=== PATIENT | female | born 1950 ===

== ENCOUNTER 2017-06-15 09:34 | Inpatient (IN) | payer MEDICAID, OTHER ==
[2017-06-15] MEDS ORDERED: Vancomycin 1gm in NS 250ml 1 GM/250 ML BAG IVPB STA (10:34)
--- NOTE | 2017-06-15 10:34 | ED PDOC ---
Arrival/HPI - General Historian: Patient - History of Present Illness Time/Duration: < month Context: Home <Rosalba Marroquin P - Last Filed: 06/15/17 13:42> <Devon Campbell P - Last Filed: 06/15/17 15:30> - General Chief Complaint: Trauma Time Seen by Provider: 06/15/17 10:21 - History of Present Illness Narrative History of Present Illness (Text): 06/15/17 10:34 This 67 yo female with pmh arthritis, presents to this ED c/o right ankle redness, and ulcer for 3 weeks. Patient noted intermittent subjective fever x 2 days. Patient stated she has been cleaning wound with peroxide. Patient denies recent travel, sick contact, sob, cp, trauma, dizziness, or syncope. (Rosalba Marroquin) Past Medical History - Provider Review Nursing Documentation Reviewed: Yes - Pulmonary Hx Asthma: Yes - Musculoskeletal/Rheumatological Hx Arthritis: Yes - Psychiatric Hx Substance Use: No - Surgical History Other/Comment: left knee surgery - Anesthesia Hx Anesthesia: Yes Hx Anesthesia Reactions: No <Rosalba Marroquin P - Last Filed: 06/15/17 13:42> Family/Social History - Physician Review Nursing Documentation Reviewed: Yes Family/Social History: Other (noncontributory) Smoking Status: Never Smoked Hx Alcohol Use: No Hx Substance Use: No <Rosalba Marroquin P - Last Filed: 06/15/17 13:42> Allergies/Home Meds <Rosalba Marroquin P - Last Filed: 06/15/17 13:42> <Devon Campbell P - Last Filed: 06/15/17 15:30> Allergies/Adverse Reactions: Allergies Penicillins Allergy (Verified 06/15/17 09:47) ITCHING Home Medications: Home Meds Medication Instructions Recorded Confirmed Unobtainable 06/15/17 06/15/17 Review of Systems - Review of Systems Constitutional: Fatigue, Fevers. absent: Weight Change Eyes: Normal. absent: Vision Changes ENT: Normal. absent: Sore Throat, Rhinorrhea Respiratory: Normal. absent: SOB, Cough Cardiovascular: Other (generalized weakness). absent: Chest Pain, Palpitations , Edema, Calf Pain, Orthopnea, Syncope Gastrointestinal: Normal. absent: Abdominal Pain, Nausea, Vomiting Genitourinary Female: Normal. absent: Dysuria, Frequency, Hematuria Musculoskeletal: Normal Skin: Rash, Skin Lesions, Ulcer, Cellulitis, Other (see hpi) Neurological: Normal. absent: Headache, Dizziness, Focal Weakness, Gait Changes , Speech Changes, Facial Droop, Disequilibrium Endocrine: Normal Hemo/Lymphatic: Normal Psychiatric: Normal <Marroquin,Nah P - Last Filed: 06/15/17 13:42> Physical Exam Temperature: Afebrile Blood Pressure: Normal Pulse: Tachycardic Respiratory Rate: Normal Appearance: Positive for: Well-Appearing, Non-Toxic, Comfortable Pain Distress: None Mental Status: Positive for: Alert and Oriented X 3 - Systems Exam Head: Present: Atraumatic, Normocephalic Pupils: Present: PERRL Extroacular Muscles: Present: EOMI Conjunctiva: Present: Normal Mouth: Present: Moist Mucous Membranes Pharnyx: Present: Normal. No: ERYTHEMA, EXUDATE, TONSILS ENLARGED Nose (External): Present: Atraumatic Nose (Internal): Present: Normal Inspection Neck: Present: Normal Range of Motion Respiratory/Chest: Present: Clear to Auscultation, Good Air Exchange. No: Respiratory Distress, Accessory Muscle Use, Wheezes, Retracting, Rhonchi Cardiovascular: Present: Regular Rate and Rhythm, Normal S1, S2. No: Murmurs Abdomen: Present: Normal Bowel Sounds. No: Tenderness, Distention, Peritoneal Signs Back: Present: Normal Inspection. No: CVA Tenderness, Midline Tenderness Upper Extremity: Present: Normal Inspection, Normal ROM, NORMAL PULSES, Neurovascularly Intact, Capillary Refill < 2s. No: Cyanosis, Edema, Erythema Lower Extremity: Present: NORMAL PULSES, Normal ROM, Swelling, Erythema, Temperature Abnormalties, Neurovascularly Intact, Capillary Refill < 2 s. No: Edema, CALF TENDERNESS Neurological: Present: GCS=15, CN II-XII Intact, Speech Normal, Motor Func Grossly Intact, Normal Sensory Function, Normal Cerebellar Funct, Gait Normal, Memory Normal Skin: Present: Warm, Dry, Normal Color. No: Rashes Psychiatric: Present: Alert, Oriented x 3, Normal Insight, Normal Concentration <Marroquin,[facility] P - Last Filed: 06/15/17 13:42> Vital Signs Temp Pulse Resp BP Pulse Ox 06/15/17 15:11 115 H 14 180/93 H 98 06/15/17 14:55 88 16 180/88 H 06/15/17 13:14 116 H 18 157/97 H 96 06/15/17 12:37 97.6 F 110 H 18 132/79 97 06/15/17 11:24 97.6 F 06/15/17 09:44 98.2 F 123 H 16 134/88 97 Medical Decision Making Re-evaluation Time: 13:45 Reassessment Condition: Re-examined, Improving,but remains with symptoms - Lab Interpretations I have reviewed the lab results: Yes Interpretation: Abnormal lab values <Rosalba Marroquin - Last Filed: 06/15/17 13:42> - Lab Interpretations I have reviewed the lab results: Yes Interpretation: Abnormal lab values <Devon Campbell - Last Filed: 06/15/17 15:30> ED Course and Treatment: 06/15/17 13:[address] Liriano regarding patient history of skin infection x 3 weeks, elevated wbc, elevated lactic, tachycardia. Code sepsis call was done. Patient was medically treated. He agrees with plan for admission. 06/15/17 13:50 Patient is aware of lab test and imaging result. Patient agrees with plan for admission. (Rosalba Marroquin) 06/15/17 15:30 Patient was admitted by hospitalist treated for cellulitis of note there is a possible urinary tract infection the hospitalist was made aware of this and will treat appropriately as a patient has a penicillin allergy (Devon Campbell) - Lab Interpretations Lab Results: 06/15/17 11:00 06/15/17 12:40 Lab Results 06/15/17 12:40: Sodium 136, Chloride 101, Potassium 3.8, Carbon Dioxide 27, Anion Gap 12, BUN 19, Creatinine 0.9, Est GFR ( Amer) > 60, Est GFR (Non- Af Amer) > 60, Random Glucose 120 H, Calcium 8.8, Phosphorus 3.9, Magnesium 1.7 , Total Bilirubin 0.5, AST 25, ALT 14, Alkaline Phosphatase 165 H, Lactate Dehydrogenase 468, Total Creatine Kinase 38, Troponin I < 0.01, NT-Pro-B Natriuret Pep 82.5, Total Protein 8.0, Albumin 3.4, Globulin 4.6, Albumin/ Globulin Ratio 0.7 L 06/15/17 12:05: Triglycerides 64, Cholesterol 159, LDL Cholesterol Direct 93, HDL Cholesterol 53 06/15/17 11:00: pO2 53, VBG pH 7.37, VBG pCO2 44.0, VBG HCO3 25.4, VBG Total CO2 26.8, VBG O2 Sat (Calc) 91.0 H, VBG Base Excess -0.2 L, VBG Potassium 4.5, Sodium 134.0, Chloride 101.0, Glucose 150 H, Lactate 3.0 H, FiO2 21.0, Venous Blood Potassium 4.5 06/15/17 11:00: Urine Color Yellow, Urine Appearance Sl cloudy, Urine pH 6.0, Ur Specific [place] 1.010, Urine Protein Trace H, Urine Glucose (UA) Negative, Urine Ketones Negative, Urine Blood Moderate H, Urine Nitrate Positive H, Urine Bilirubin Negative, Urine Urobilinogen 0.2, Ur Leukocyte Esterase Moderate H, Urine RBC 5 - 10, Urine WBC 15 - 20, Ur Epithelial Cells 3 - 4, Urine Bacteria Many 06/15/17 11:00: PT 13.1 H, INR 1.19 H, APTT 31.3 06/15/17 11:00: WBC 16.3 H, RBC 4.37, Hgb 10.0 L, Hct 31.8 L, MCV 72.8 L, MCH 22.9 L, MCHC 31.4, RDW 17.8 H, Plt Count 651 H, MPV 7.9, Gran % 84.3 H, Lymph % (Auto) 8.0 L, [place] % (Auto) 7.1 H, Eos % (Auto) 0.2 L, Baso % (Auto) 0.4, Gran # 13.73 H, Lymph # 1.3, [place] # 1.2 H, Eos # 0.0, Baso # 0.07, ESR 82 H - RAD Interpretation Narrative RAD Interpretations (Text): 06/15/17 11:36 Patient Name / ID : HIEU CHONG / [id number] Exam Date : 06/15/2017 11:11:14 ( Approved ) Study Comment : Sex / Age : F / 67Y Creator : Nikhil Roe MD Dictator : Nikhil Roe MD Film Printer : Chute Man : Nikhil Roe MD Approver2 : Report Date : 06/15/2017 11:35:06 My Comment : This report is currently processing and HAS NOT BEEN OFFICIALLY SIGNED BY THE PHYSICIAN - ESTIMATED TIME OF APPROVAL IS 06/15/2017 11:40. HISTORY: Sepsis Patient COMPARISON: No prior. FINDINGS: LUNGS: No active pulmonary disease. PLEURA: No significant pleural effusion identified, no pneumothorax apparent. CARDIOVASCULAR: Normal. OSSEOUS STRUCTURES: No significant abnormalities. VISUALIZED UPPER ABDOMEN: Normal. OTHER FINDINGS: None. IMPRESSION: No active disease. 06/15/17 12:43 Patient Name / ID : HIEU CHONG / [id number] Exam Date : 06/15/2017 12:07:04 ( Approved ) Study Comment : Sex / Age : F / 67Y Creator : Nikhil Roe MD Dictator : Nikhil Roe MD Film Printer : Chute Man : Nikhil Roe MD Approver2 : Report Date : 06/15/2017 12:30:53 My Comment : PROCEDURE: CT HEAD WITHOUT CONTRAST. HISTORY: generalized weakness s/p fall COMPARISON: None available. TECHNIQUE: Axial computed tomography images were obtained through the head/brain without intravenous contrast. Radiation dose: Total exam DLP = 759.00 mGy-cm. This CT exam was performed using one or more of the following dose reduction techniques: Automated exposure control, adjustment of the mA and/or kV according to patient size, and/or use of iterative reconstruction technique. FINDINGS: The examination is grossly technically limited. HEMORRHAGE: No intracranial hemorrhage. BRAIN: No intracranial mass identified. Unable to evaluate atrophy. No gross atrophy. Extensive bilateral basal ganglia calcification as well as bilateral dentate nucleus cerebellar calcification. No gross evidence of acute infarct. VENTRICLES: Unremarkable. No hydrocephalus. CALVARIUM: Unremarkable. PARANASAL SINUSES: Unremarkable as visualized. No significant inflammatory changes. MASTOID AIR CELLS: Unremarkable as visualized. No inflammatory changes. OTHER FINDINGS: None. IMPRESSION: No intracranial mass, hemorrhage or evidence of acute infarct. Technically limited examination. (Rosalba Marroquin) Radiology Orders: 06/15/17 10:34 CHEST PORTABLE [RAD] Stat 06/15/17 10:41 HEAD W/O CONTRAST [CT] Stat 06/15/17 12:07 DUPLEX LOWER EXTRM VEIN RIGHT [US] Stat 06/15/17 12:08 ANKLE RIGHT 3 VIEWS ROUTINE [RAD] Stat - Medication Orders Current Medication Orders: Acetaminophen (Tylenol 325mg Tab) 650 mg PO Q4 PRN PRN Reason: Fever >100.4 F Ascorbic Acid (Vitamin C 500 Mg Tab) 500 mg PO DAILY ESCOBAR Heparin Sodium (Porcine) (Heparin) 5,000 units SC Q12 ESCOBAR PRN Reason: Protocol Sodium Chloride (Sodium Chloride 0.9%) 1,000 mls @ 150 mls/hr IV .Q6H40M ESCOBAR Vancomycin HCl (Vancomycin 1gm) 1 gm in 250 mls @ 167 mls/hr IVPB DAILY ESCOBAR PRN Reason: Protocol Ibuprofen (Motrin Tab) 400 mg PO Q6H PRN PRN Reason: Pain, Mild (1-3) Multivitamins/Minerals (Therapeutic-M Tab) 1 tab PO 0800 ESCOBAR Pantoprazole Sodium (Protonix Ec Tab) 40 mg PO 0600,1600 ESCOBAR Zinc Sulfate (Zinc Sulfate 220 Mg Cap) 220 mg PO DAILY ESCOBAR Discontinued Medications Vancomycin HCl (Vancomycin 1gm) 1 gm in 250 mls @ 167 mls/hr IVPB STAT STA PRN Reason: Protocol Stop: 06/15/17 12:03 Last Admin: 06/15/17 11:00 Dose: 167 mls/hr eMAR Start Stop Document 06/15/17 11:00 HI (Rec: 06/15/17 11:19 AK [id number]) Intravenous Solution Start Date 06/15/17 Start Time 11:00 Sodium Chloride (Sodium Chloride 0.9%) 1,000 mls @ 999 mls/hr IV .Q1H1M STA Stop: 06/15/17 11:39 Last Admin: 11/14/17 11:00 Dose: 999 mls/hr eMAR Start Stop Document 06/15/17 11:00 HI (Rec: 06/15/17 11:19 AK [id number]) Intravenous Solution Start Date 06/15/17 Start Time 11:00 Sodium Chloride (Sodium Chloride 0.9%) 1,700 mls @ 1,700 mls/hr IV .Q1H STA Stop: 06/15/17 12:39 Last Admin: 06/15/17 14:00 Dose: 1,700 mls/hr eMAR Start Stop Document 06/15/17 14:00 HI (Rec: 06/15/17 15:02 AK [id number]) Intravenous Solution Start Date 06/15/17 Start Time 12:30 Ketorolac Tromethamine (Toradol) 30 mg IVP STAT STA Stop: 06/15/17 14:37 - PA / [employer]INT BU[employer]DER / Resident Statement MD/DO has reviewed & agrees with the documentation as recorded. <Devon Campbell P - Last Filed: 06/15/17 15:30> Disposition/Present on Arrival - Present on Arrival Any Indicators Present on Arrival: No History of DVT/PE: No History of Uncontrolled Diabetes: No Urinary Catheter: No History of Decub. Ulcer: No History Surgical Site Infection Following: None - Disposition Have Diagnosis and Disposition been Completed?: Yes Disposition Time: 13:47 Patient Plan: Admission <Rosalba Marroquin P - Last Filed: 06/15/17 13:42> - Present on Arrival History of Uncontrolled Diabetes: Yes - Disposition Patient Plan: Admission <Devon Campbell P - Last Filed: 06/15/17 15:30> - Disposition Diagnosis: Sepsis due to cellulitis Disposition: HOSPITALIZED Patient Problems: Current Active Problems Problem Status Onset Sepsis due to cellulitis Acute Condition: STABLE
[2017-06-15] MEDS ORDERED: Sodium Chloride 0.9% 1,000 ML IV STA (10:39)
[2017-06-15 11:20] LABS: VENOUS BLOOD GAS BASE EXCESS -0.2 mmol/L (0.0-2.0); VENOUS BLOOD GAS PO2 53 mm/Hg (30-55); VENOUS BLOOD PH 7.37 (7.32-7.43)
[2017-06-15 11:21] LABS: BASO # 0.07 K/mm3 (0.0-2.0); BASO % 0.4 % (0.0-3.0); EOS % 0.2 % (1.5-5.0); GRAN # 13.73 (1.4-6.5); GRAN % 84.3 % (50.0-68.0); LYMPH # 1.3 (1.2-3.4); MEAN CELL VOLUME 72.8 fl (80.0-105.0); MEAN CORPUSCULAR HEMOGLOBIN 22.9 pg (25.0-35.0); MEAN CORPUSCULAR HGB CONC 31.4 g/dl (31.0-37.0); MEAN PLATELET VOLUME 7.9 fl (7.0-11.0); MONO # 1.2 (0.1-0.6); MONO % 7.1 % (1.0-6.0); RBC 4.37 10^6/uL (3.5-6.1); RED CELL DISTRIBUTION WIDTH 17.8 % (11.5-14.5); WHITE BLOOD COUNT 16.3 10^3/ul (4.5-11.0)
[2017-06-15 11:22] LABS: URINE BILIRUBIN NEGATIVE (NEGATIVE); URINE BLOOD MODERATE (NEGATIVE); URINE GLUCOSE (UA) NEGATIVE (NEGATIVE); URINE LEUKOCYTE ESTERASE MODERATE Leu/uL (NEGATIVE); URINE NITRATE POSITIVE (NEGATIVE); URINE PROTEIN TRACE mg/dL (<30 mg/dL); URINE UROBILINOGEN 0.2 E.U./dL (<1 E.U./dL)
[2017-06-15 11:27] LABS: URINE APPEARANCE SL CLOUDY (CLEAR); URINE COLOR YELLOW (YELLOW)
[2017-06-15 11:33] LABS: INR 1.19 (0.93-1.08); PARTIAL THROMBOPLASTIN TIME 31.3 Seconds (25.1-36.5); PROTHROMBIN TIME 13.1 SECONDS (9.4-12.5)
[2017-06-15 11:36] LABS: URINE BACTERIA MANY (NEG); URINE WBC 15 - 20 /hpf (0-6)
--- NOTE | 2017-06-15 11:36 | RAD ---
HISTORY: Sepsis Patient COMPARISON: No prior. FINDINGS: LUNGS: No active pulmonary disease. PLEURA: No significant pleural effusion identified, no pneumothorax apparent. CARDIOVASCULAR: Normal. OSSEOUS STRUCTURES: No significant abnormalities. VISUALIZED UPPER ABDOMEN: Normal. OTHER FINDINGS: None. IMPRESSION: No active disease.
--- NOTE | 2017-06-15 12:32 | CT ---
PROCEDURE: CT HEAD WITHOUT CONTRAST. HISTORY: generalized weakness s/p fall COMPARISON: None available. TECHNIQUE: Axial computed tomography images were obtained through the head/brain without intravenous contrast. Radiation dose: Total exam DLP = 759.00 mGy-cm. This CT exam was performed using one or more of the following dose reduction techniques: Automated exposure control, adjustment of the mA and/or kV according to patient size, and/or use of iterative reconstruction technique. FINDINGS: The examination is grossly technically limited. HEMORRHAGE: No intracranial hemorrhage. BRAIN: No intracranial mass identified. Unable to evaluate atrophy. No gross atrophy. Extensive bilateral basal ganglia calcification as well as bilateral dentate nucleus cerebellar calcification. No gross evidence of acute infarct. VENTRICLES: Unremarkable. No hydrocephalus. CALVARIUM: Unremarkable. PARANASAL SINUSES: Unremarkable as visualized. No significant inflammatory changes. MASTOID AIR CELLS: Unremarkable as visualized. No inflammatory changes. OTHER FINDINGS: None. IMPRESSION: No intracranial mass, hemorrhage or evidence of acute infarct. Technically limited examination.
--- NOTE | 2017-06-15 13:13 | RAD ---
PROCEDURE: Right Ankle Radiographs. HISTORY: pain COMPARISON: None FINDINGS: BONES: Normal. No fracture. JOINTS: Degenerative changes are seen in the midfoot. There is also joint space narrowing in the ankle joint SOFT TISSUES: Normal. OTHER FINDINGS: None. IMPRESSION: Degenerative changes are seen in the midfoot. There is also joint space narrowing in the ankle joint. No acute findings
[2017-06-15 13:19] LABS: ALB/GLOB RATIO 0.7 (1.1-1.8); AST/SGOT 25 U/L (14-36); B-TYPE NATRIURETIC PEPTIDE 82.5 pg/mL (0-450); BLOOD UREA NITROGEN 19 mg/dL (7-21); GFR AFRICAN-AMERICAN > 60; GFR NON-AFRICAN AMERICAN > 60; MAGNESIUM 1.7 mg/dL (1.7-2.2)
[2017-06-15 13:30] LABS: ALBUMIN 3.4 g/dL (3.0-4.8); ALT/SGPT 14 U/L (7-56); CALCIUM 8.8 mg/dL (8.4-10.5)
[2017-06-15 13:40] LABS: TROPONIN I < 0.01 ng/mL
[2017-06-15] MEDS ORDERED: Sodium Chloride 0.9% 1,000 ML IV SCH (14:30)
--- NOTE | 2017-06-15 14:40 | CP.PCM.HP ---
<Devon Campbell - Last Filed: 06/15/17 15:29> Meds Allergies/Adverse Reactions: Allergies Allergy/AdvReac Type Severity Reaction Status Date / Time Penicillins Allergy ITCHING Verified 06/15/17 09:47 Results - Vital Signs Recent Vital Signs: Last Vital Signs Temp 97.6 F 06/15/17 12:37 Pulse 115 H 06/15/17 15:11 Resp 14 06/15/17 15:11 BP 180/93 H 06/15/17 15:11 Pulse Ox 98 06/15/17 15:11 - Labs Result Diagrams: 06/15/17 11:00 06/15/17 12:40 Labs: Laboratory Results - last 24 hr 06/15/17 14:48 pO2 74 H VBG pH 7.40 VBG pCO2 40.0 VBG HCO3 24.8 VBG Total CO2 26.0 VBG O2 Sat (Calc) 96.6 H VBG Base Excess 0.0 VBG Potassium 3.9 Sodium 137.0 Chloride 105.0 Glucose 106 H Lactate 1.4 FiO2 21.0 Venous Blood Potassium 3.9 <Sergo Ibarra - Last Filed: 06/15/17 15:36> History of Present Illness - History of Present Illness History of Present Illness: Ms. Chou is a 67yo F PMH asthma, arthritis, vitamin C deficiency, and possible thyroid disease who presents with 3 weeks of RLE ulceration, swelling and leaking from the wound as well as multiple falls in the past 3 weeks. important to note that pt is a poor historian. she does not have a PMD, does not see a doctor, and does not take medications at home. she denies chest pain, sob, cough, fevers/chills, dysuria, constipation, n/v/d, back pain. 12-pt ROS was reviewed and is otherwise unremarkable. In ED, CT Head was unremarkable, CXR was unremarkable, R ankle XR showed degenerative and arthritic changes. UA had +nirates and mod LE. Vancomycin and 2.7 L boluses were given. 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); denies tobacco, ETOH and substance use; does not go out often from home, but uses a cane/walker at home for assistance FHx: mom (DM2), dad (heart disease) Present on Admission - Present on Admission Any Indicators Present on Admission: No History of DVT/PE: No History of Uncontrolled Diabetes: No Urinary Catheter: No Decubitus Ulcer Present: No Review of Systems - Review of Systems All systems: reviewed and no additional remarkable complaints except (as per HPI ) Past Patient History - Past Social History Smoking Status: Never Smoked Alcohol: None Drugs: Denies Home Situation {Lives}: Friends - CARDIAC Hx Cardiac Disorders: No - PULMONARY Hx Asthma: Yes - NEUROLOGICAL Hx Neurological Disorder: No - HEENT Hx HEENT Problems: No - RENAL Hx Chronic Kidney Disease: No - ENDOCRINE/METABOLIC Other/Comment: thyroid disease - HEMATOLOGICAL/ONCOLOGICAL Other/Comment: vitamin c deficiency - INTEGUMENTARY Hx Dermatological Problems: No - MUSCULOSKELETAL/RHEUMATOLOGICAL Hx Arthritis: Yes Hx Falls: Yes - GASTROINTESTINAL Hx Gastrointestinal Disorders: No - GENITOURINARY/GYNECOLOGICAL Hx Genitourinary Disorders: No - PSYCHIATRIC Hx Psychophysiologic Disorder: No Hx Substance Use: No - SURGICAL HISTORY Hx Orthopedic Surgery: Yes (L knee) Other/Comment: left knee surgery - ANESTHESIA Hx Anesthesia: Yes Hx Anesthesia Reactions: No Physical Exam - Constitutional Appears: Well, Non-toxic, No Acute Distress - Head Exam Head Exam: ATRAUMATIC, NORMAL INSPECTION, NORMOCEPHALIC Additional comments: diffuse hair loss - Eye Exam Eye Exam: EOMI, Normal appearance, PERRL Pupil Exam: NORMAL ACCOMODATION - ENT Exam ENT Exam: Mucous Membranes Moist, Normal Exam Additional comments: dentures - Neck Exam Neck exam: Positive for: Normal Inspection - Respiratory Exam Respiratory Exam: Clear to Auscultation Bilateral, NORMAL BREATHING PATTERN. absent: Rales, Wheezes - Cardiovascular Exam Cardiovascular Exam: RRR, +S1, +S2. absent: Gallop, JVD, Rubs, Systolic Murmur - GI/Abdominal Exam GI & Abdominal Exam: Distended, Normal Bowel Sounds, Soft. absent: Firm, Guarding, Rigid, Tenderness - Extremities Exam Extremities exam: Positive for: pedal edema, pedal pulses present (1+ b/l ) Additional comments: RLE swollen R ankle with ulcer that looks fungal b/l chronic venous changes - Back Exam Back exam: NORMAL INSPECTION. absent: CVA tenderness (L), CVA tenderness (R) - Neurological Exam Neurological exam: Alert, CN II-XII Intact, Oriented x3 - Psychiatric Exam Psychiatric exam: Normal Affect, Normal Mood - Skin Skin Exam: Erythema, Mottled Additional comments: diffuse chronic venous changes RLE ulcer acanthosis nigricans changes Results - Vital Signs Recent Vital Signs: Last Vital Signs Temp 97.6 F 06/15/17 12:37 Pulse 116 H 06/15/17 13:14 Resp 18 06/15/17 13:14 BP 157/97 H 06/15/17 13:14 Pulse Ox 96 06/15/17 13:14 - Labs Result Diagrams: 06/15/17 11:00 06/15/17 12:40 Assessment & Plan - Assessment and Plan (Free Text) Assessment: 67yo F PMH asthma, arthritis, vitamin C deficiency, and possible thyroid disease who presents with RLE ulcer/cellulitis and chronic venous changes b/l, found to be septic in ED, post sepsis code. Plan: 1. RLE cellulitis/ulcer - s/p CODE SEPSIS, vancomycin and IVF - will f/u labs for code sepsis - lactate decreased from 3 to 1.4 - pt remains afebrile, tachycardic and with leukocytosis - cont Vancomycin and fluids - toradol stat for pain - motrin prn for pain - tylenol prn fevers - MV/Vitamin C and Zinco to promote wound healing - wound culture ordered - blood and urine cultures sent, f/u results - ID consulted, recs appreciated - podiatry consulted, recs appreciated - a1c to check diabetic status - lipid panel ordered 2. asthma - currently no wheezing - duoneb prn - monitor oxygenation 3. arthritis - motrin prn pain 4. thyroid - thyroid panel sent 5. vitamin C deficiency - MV and Vitamin C ordered PTX/Heparin HHD Patient was seen, examined and discussed with attending, Dr. Israel Ibarra PGY1 - Date & Time Date: 06/15/17 Time: 13:36
[2017-06-15 15:01] LABS: HDL CHOLESTEROL 53 mg/dL (29-60)
[2017-06-15 15:04] LABS: VENOUS BLOOD GAS PO2 74 mm/Hg (30-55)
[2017-06-15 15:12] LABS: LDL CHOLESTEROL 93 mg/dL (0-129)
--- NOTE | 2017-06-15 15:39 | CP.PCM.HP ---
<Sergo Ibarra - Last Filed: 06/15/17 15:37> History of Present Illness - History of Present Illness History of Present Illness: Ms. Chou is a 67yo F PMH asthma, arthritis, vitamin C deficiency, and possible thyroid disease who presents with 3 weeks of RLE ulceration, swelling and leaking from the wound as well as multiple falls in the past 3 weeks. important to note that pt is a poor historian. she does not have a PMD, does not see a doctor, and does not take medications at home. she denies chest pain, sob, cough, fevers/chills, dysuria, constipation, n/v/d, back pain. 12-pt ROS was reviewed and is otherwise unremarkable. In ED, CT Head was unremarkable, CXR was unremarkable, R ankle XR showed degenerative and arthritic changes. UA had +nirates and mod LE. Vancomycin and 2.7 L boluses were given. 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); denies tobacco, ETOH and substance use; does not go out often from home, but uses a cane/walker at home for assistance FHx: mom (DM2), dad (heart disease) Present on Admission - Present on Admission Any Indicators Present on Admission: No History of DVT/PE: No History of Uncontrolled Diabetes: No Urinary Catheter: No Decubitus Ulcer Present: No Review of Systems - Review of Systems All systems: reviewed and no additional remarkable complaints except (as per HPI ) Past Patient History - Past Social History Smoking Status: Never Smoked Alcohol: None Drugs: Denies Home Situation {Lives}: Friends - CARDIAC Hx Cardiac Disorders: No - PULMONARY Hx Asthma: Yes - NEUROLOGICAL Hx Neurological Disorder: No - HEENT Hx HEENT Problems: No - RENAL Hx Chronic Kidney Disease: No - ENDOCRINE/METABOLIC Other/Comment: thyroid disease - HEMATOLOGICAL/ONCOLOGICAL Other/Comment: vitamin c deficiency - INTEGUMENTARY Hx Dermatological Problems: No - MUSCULOSKELETAL/RHEUMATOLOGICAL Hx Arthritis: Yes Hx Falls: Yes - GASTROINTESTINAL Hx Gastrointestinal Disorders: No - GENITOURINARY/GYNECOLOGICAL Hx Genitourinary Disorders: No - PSYCHIATRIC Hx Psychophysiologic Disorder: No Hx Substance Use: No - SURGICAL HISTORY Hx Orthopedic Surgery: Yes (L knee) Other/Comment: left knee surgery - ANESTHESIA Hx Anesthesia: Yes Hx Anesthesia Reactions: No Meds Allergies/Adverse Reactions: Allergies Allergy/AdvReac Type Severity Reaction Status Date / Time Penicillins Allergy ITCHING Verified 06/15/17 09:47 Physical Exam - Additional Findings Additional findings: - Constitutional Appears: Well, Non-toxic, No Acute Distress - Head Exam Head Exam: ATRAUMATIC, NORMAL INSPECTION, NORMOCEPHALIC Additional comments: diffuse hair loss - Eye Exam Eye Exam: EOMI, Normal appearance, PERRL Pupil Exam: NORMAL ACCOMODATION - ENT Exam ENT Exam: Mucous Membranes Moist, Normal Exam Additional comments: dentures - Neck Exam Neck exam: Positive for: Normal Inspection - Respiratory Exam Respiratory Exam: Clear to Auscultation Bilateral, NORMAL BREATHING PATTERN. absent: Rales, Wheezes - Cardiovascular Exam Cardiovascular Exam: RRR, +S1, +S2. absent: Gallop, JVD, Rubs, Systolic Murmur - GI/Abdominal Exam GI & Abdominal Exam: Distended, Normal Bowel Sounds, Soft. absent: Firm, Guarding, Rigid, Tenderness - Extremities Exam Extremities exam: Positive for: pedal edema, pedal pulses present (1+ b/l ) Additional comments: RLE swollen R ankle with ulcer that looks fungal b/l chronic venous changes - Back Exam Back exam: NORMAL INSPECTION. absent: CVA tenderness (L), CVA tenderness (R) - Neurological Exam Neurological exam: Alert, CN II-XII Intact, Oriented x3 - Psychiatric Exam Psychiatric exam: Normal Affect, Normal Mood - Skin Skin Exam: Erythema, Mottled Additional comments: diffuse chronic venous changes RLE ulcer acanthosis nigricans changes Results - Vital Signs Recent Vital Signs: Last Vital Signs Temp 97.6 F 06/15/17 12:37 Pulse 115 H 06/15/17 15:11 Resp 14 06/15/17 15:11 BP 180/93 H 06/15/17 15:11 Pulse Ox 98 06/15/17 15:11 - Labs Result Diagrams: 06/15/17 11:00 06/15/17 12:40 Labs: Laboratory Results - last 24 hr 06/15/17 14:48 pO2 74 H VBG pH 7.40 VBG pCO2 40.0 VBG HCO3 24.8 VBG Total CO2 26.0 VBG O2 Sat (Calc) 96.6 H VBG Base Excess 0.0 VBG Potassium 3.9 Sodium 137.0 Chloride 105.0 Glucose 106 H Lactate 1.4 FiO2 21.0 Venous Blood Potassium 3.9 Assessment & Plan - Assessment and Plan (Free Text) Assessment: 67yo F PMH asthma, arthritis, vitamin C deficiency, and possible thyroid disease who presents with RLE ulcer/cellulitis and chronic venous changes b/l, found to be septic in ED, post sepsis code. Plan: 1. RLE cellulitis/ulcer - s/p CODE SEPSIS, vancomycin and IVF - will f/u labs for code sepsis - lactate decreased from 3 to 1.4 - pt remains afebrile, tachycardic and with leukocytosis - cont Vancomycin and fluids - toradol stat for pain - motrin prn for pain - tylenol prn fevers - MV/Vitamin C and Zinco to promote wound healing - wound culture ordered - blood and urine cultures sent, f/u results - ID consulted, recs appreciated - podiatry consulted, recs appreciated - a1c to check diabetic status - lipid panel ordered 2. asthma - currently no wheezing - duoneb prn - monitor oxygenation 3. arthritis - motrin prn pain 4. thyroid - thyroid panel sent 5. vitamin C deficiency - MV and Vitamin C ordered PTX/Heparin HHD Patient was seen, examined and discussed with attending, Dr. Israel Ibarra PGY1 - Date & Time Date: 06/15/17 Time: 13:38 <Roger Wood - Last Filed: 06/16/17 12:32> Results - Vital Signs Recent Vital Signs: Last Vital Signs Temp 97.9 F 06/16/17 12:00 Pulse 103 H 06/16/17 12:22 Resp 20 06/16/17 12:00 BP 88/53 L 06/16/17 12:00 Pulse Ox 97 06/16/17 06:00 - Labs Result Diagrams: 06/16/17 05:30 06/16/17 05:30 Labs: Laboratory Results - last 24 hr 06/15/17 06/16/17 06/16/17 14:48 05:30 05:30 WBC 11.3 H D RBC 3.71 Hgb 8.3 L Hct 27.0 L MCV 72.8 L MCH 22.4 L MCHC 30.7 L RDW 18.0 H Plt Count 527 H MPV 7.8 pO2 74 H VBG pH 7.40 VBG pCO2 40.0 VBG HCO3 24.8 VBG Total CO2 26.0 VBG O2 Sat (Calc) 96.6 H VBG Base Excess 0.0 VBG Potassium 3.9 Sodium 137.0 138 Chloride 105.0 107 Glucose 106 H Lactate 1.4 FiO2 21.0 Potassium 3.8 Carbon Dioxide 24 Anion Gap 11 BUN 16 Creatinine 1.0 Est GFR ( Amer) > 60 Est GFR (Non-Af Amer) 55 Random Glucose 89 Calcium 8.1 L Iron TIBC % Saturation Total Bilirubin 0.4 AST 35 ALT 25 Alkaline Phosphatase 125 Total Protein 7.1 Albumin 2.9 L Globulin 4.2 Albumin/Globulin Ratio 0.7 L Venous Blood Potassium 3.9 06/16/17 11:20 WBC RBC Hgb Hct MCV MCH MCHC RDW Plt Count MPV pO2 VBG pH VBG pCO2 VBG HCO3 VBG Total CO2 VBG O2 Sat (Calc) VBG Base Excess VBG Potassium Sodium Chloride Glucose Lactate FiO2 Potassium Carbon Dioxide Anion Gap BUN Creatinine Est GFR ( Amer) Est GFR (Non-Af Amer) Random Glucose Calcium Iron 16 L TIBC 210.1 L % Saturation 7 L Total Bilirubin AST ALT Alkaline Phosphatase Total Protein Albumin Globulin Albumin/Globulin Ratio Venous Blood Potassium Attending/Attestation - Attestation I have personally seen and examined this patient.: Yes I have fully participated in the care of the patient.: Yes I have reviewed all pertinent clinical information: Yes Notes (Text): 06/16/17 12:29 Attending note; Patient seen and examined with resident in ER. Patient is a 67 year old female with past medical history of asthma, arthritis, vitamin C deficiency,obesity presents with 3 months of RLE ulceration, swelling and leaking from the wound as well as multiple falls in the past 3 weeks. patient is a poor historian. Never followed up with any physician. Patient is also complaining of gait instability for the past few months. Admitted for right lower leg cellulitis; started on IV vancomycin and levofloxacin. Penicillin allergy; ID evaluation requested. Continue local wound care. Podiatry evaluation requested. X-ray showed chronic arthritis. Gait instability; PT evaluation. barnworker groom and case assembler evaluation requested for discharge planning. Patient currently lives with a friend. Upon discharge the patient will be referred to [facility] [place] [facility].
[2017-06-15 15:59] LABS: FREE T4 1.63 ng/dL (0.78-2.19)
[2017-06-15] MEDS ORDERED: levoFLOXacin 500 mg in D5W 500 MG/100 ML BAG IVPB SCH ×2 (16:00→17:31)
--- NOTE | 2017-06-15 16:50 | PCM.SEPTIC ---
<Stacey,Mark - Last Filed: 06/15/17 16:49> Sepsis Progress Note - Reassessment Type Date of Evaluation: 06/15/17 Time of Evaluation: 16:49 Reassessment Type: Non-invasive reassessment - Non Invasive Reassessment Were the most recent vital sign reviewed: Yes Vital Sign (Latest): Temp Pulse Resp BP Pulse Ox 97.6 F 115 H 14 180/93 H 98 06/15/17 12:37 06/15/17 15:11 06/15/17 15:11 06/15/17 15:11 06/15/17 15:11 Cardiovascular: Yes: Regular Rate, Rhythm, Tachycardia. No: JVD Respiratory: Yes: Normal Breath Sounds. No: Decreased Breath Sounds, Accessory Muscle Use, Crackles, Rales, Rhonchi, Wheezing, Respiratory Distress Capillary Refill: Normal (Less than 2 sec) Skin: Other (RLE with chronic venous changes) <Roger Wood - Last Filed: 06/16/17 12:32> Sepsis Progress Note - Non Invasive Reassessment Vital Sign (Latest): Temp Pulse Resp BP Pulse Ox 97.9 F 103 H 20 88/53 L 97 06/16/17 12:00 06/16/17 12:22 06/16/17 12:00 06/16/17 12:00 06/16/17 06:00 Attending/Attestation - Attestation I have personally seen and examined this patient.: Yes I have fully participated in the care of the patient.: Yes I have reviewed all pertinent clinical information, including history, physical exam and plan: Yes Notes (Text): 06/16/17 12:32 code sepsis note; Repeat lactate level is normal. Patient is not hypotensive. IV fluids decreased. Patient is clinically stable. Started on IV vancomycin and levofloxacin.
--- NOTE | 2017-06-15 17:19 | US ---
PROCEDURE: Right lower extremity venous US HISTORY: Leg pain and swelling. Evaluate for DVT. PHYSICIAN(S): Nikhil Sanchez M.D. TECHNIQUE: Duplex sonography and color-flow Doppler with graded compression were used to evaluate the deep venous system of the right lower extremity. The exam is very limited by body habitus and edema. The lower femoral vein and tibial veins are not adequately seen. FINDINGS: The visualized deep venous system of the right lower extremity is sonographically normal and compressible. Normal waveforms and augmentation are seen. There is no sonographic evidence for deep venous thrombosis in the visualized segments of the right lower extremity. IMPRESSION: 1. No sonographic evidence for deep venous thrombosis in the visualized segments of the right lower extremity. 2. Very limited study
[2017-06-15] MEDS ORDERED: levoFLOXacin 500 mg in D5W 500 MG/100 ML BAG IVPB STA (17:32)
[2017-06-15] MEDS: Sodium Chloride 0.9% 1,000 ML IV SCH (18:00)
[2017-06-15] MEDS: Pantoprazole 40 mg EC Tab PO SCH (18:02)
[2017-06-15] MEDS: Vancomycin 1gm in NS 250ml 1 GM/250 ML BAG IVPB SCH (19:15)
--- NOTE | 2017-06-15 22:12 | CARD ---
APPROVED REPORT EKG Measurement Heart [id number] <Conclusion> Sinus tachycardia Moderate voltage criteria for LVH, may be normal variant Borderline ECG
--- NOTE | 2017-06-16 02:50 | CON ---
DATE: 06/15/2017 HISTORY OF PRESENT ILLNESS: This is a 67-year-old female seen in the emergency room on consultation for a right leg cellulitis. The patient is seen on the stretcher. She is alert and oriented. She states that she has had this weeping and draining from her right leg for several weeks. She has been cleaning it with peroxide, but it has become more red and swollen. She states she does walk at home with the use of a walker, but it is becoming more difficulty lately because of the swelling in her legs. PAST MEDICAL HISTORY: The patient has no past medical history. She has not gone to a doctor in many years. She does not have a PMD. She does not take any medications at home. PAST SURGICAL HISTORY: Positive for left knee surgery. She does not remember exactly when it was done or what exactly was done to her. ALLERGIES: POSITIVE FOR PENICILLIN. SOCIAL HISTORY: She lives at home with her friend. The patient denies tobacco, alcohol or any substance abuse. The patient states that she does walk with the walker at home as noted above, but states she has been falling lately because of the swelling in her legs. REVIEW OF SYSTEMS: Negative for cardiac. Negative for neurological. Positive for history of asthma. Negative for HEENT. Negative for endocrine. She states that she might have a possible thyroid condition, but she is not sure. Negative for GI. Negative for . Positive for musculoskeletal. Positive for difficulty walking. Skin, there is now with ulceration and cellulitis to her legs. The patient's psych is negative. PHYSICAL EXAMINATION: VITAL SIGNS: Noted. She has a temperature of 97.6, pulse rate was 115, blood pressure is 180/93, respirations were 14. LABORATORY DATA: Shows a white blood cell count of 16.3, H and H is 10.0/31.8, and platelets are 651. The patient also has a granulocyte of 84.3 with lymphocyte of 8.0 with a shift to the left. ASR is remarkable at 82. The patient's chemistry shows a glucose of 120, the alk phos also was elevated at 165. The rest of the chemistry was grossly within normal limits. The patient did have INR of 1.19, PT is 13.1. She did have x-rays done of her ankle, and she had extremity ultrasound done, but pending at this time. Her ankle x-rays were negative for any dislocation, fractures, or any osteomyelitis; however, the patient does have lot of degenerative disease noted in both the foot and the ankle area. The patient also had a chest x-ray and chest x-ray was no active disease. Physically, the patient is noted to be morbidly obese female with bounding 2/4 palpable pedal pulses. She has decreased sensation to the digits and her feet bilaterally. Her skin is with lichenification on the right greater than the left, but there is stasis skin changes bilateral. She has a +4 edema to the right lower extremity and +3 on the left. There is an ankle ulceration measuring approximately 8 cm x 6 cm with depth of which is unknown at this time. There is fluff on the wound edge. There is active weeping coming from the wound and there is pain on palpation of the leg. The leg is cellulitic from the ankle to approximately just below the knee. The left leg does not have any open wounds or oozing and is not cellulitic; however, there are secondary skin changes from the chronic edema. The patient's feet are unkempt and there is elongated dystrophic fungal nails x10. ASSESSMENT: Unchangeable ulcer to the right leg with cellulitis and infection, rule out deep venous thrombosis. PLAN OF TREATMENT: IV antibiotics, cultures were done and are pending at this time. With local wound care, we will be using DuoDERM overnight to help macerate and remove some of the slough on that wound bed. We will order heel pads to keep the feet off the bed and the patient will be seen in followup. Buffy Cano DPM JERRELL
[2017-06-16] MEDS: Vancomycin 1gm in NS 250ml 1 GM/250 ML BAG IVPB SCH ×2 (04:02→17:33)
[2017-06-16 06:02] LABS: HEMOGLOBIN 8.3 g/dL (12.0-16.0); MEAN CELL VOLUME 72.8 fl (80.0-105.0); MEAN CORPUSCULAR HEMOGLOBIN 22.4 pg (25.0-35.0); MEAN CORPUSCULAR HGB CONC 30.7 g/dl (31.0-37.0); MEAN PLATELET VOLUME 7.8 fl (7.0-11.0); RBC 3.71 10^6/uL (3.5-6.1); WHITE BLOOD COUNT 11.3 10^3/ul (4.5-11.0)
[2017-06-16] MEDS: Pantoprazole 40 mg EC Tab PO SCH ×2 (06:11→17:32)
[2017-06-16] MEDS: Sodium Chloride 0.9% 1,000 ML IV SCH ×3 (07:02→18:37)
[2017-06-16 07:35] LABS: ALB/GLOB RATIO 0.7 (1.1-1.8); ALBUMIN 2.9 g/dL (3.0-4.8); ALT/SGPT 25 U/L (7-56); AST/SGOT 35 U/L (14-36); BLOOD UREA NITROGEN 16 mg/dL (7-21); CALCIUM 8.1 mg/dL (8.4-10.5); GFR AFRICAN-AMERICAN > 60; GFR NON-AFRICAN AMERICAN 55
[2017-06-16] MEDS ORDERED: Vancomycin 1gm in NS 250ml 1 GM/250 ML BAG IVPB SCH (10:00)
--- NOTE | 2017-06-16 11:06 | CP.PCM.PN ---
<Sergo Ibarra - Last Filed: 06/16/17 11:11> Subjective - Date & Time of Evaluation Date of Evaluation: 06/16/17 Time of Evaluation: 09:00 - Subjective Subjective: patient was seen and examined bedside. she was complaining of a headache last night, that was relieved with meds. she uses a bedpan for urination and is not able to bear weight on her legs. During rounds, Chris (the friend she lives at home) was seen and states that he helps her at home since she has no one to help and does not have insurance. He does grocery shopping and feeds her, and tries to clean her but usually cannot do so alone. Says that she has not ambulated in three months. Objective - Vital Signs/Intake and Output Vital Signs (last 24 hours): Temp Pulse Resp BP Pulse Ox 98.3 F 100 H 19 128/68 97 06/16/17 06:00 06/16/17 06:00 06/16/17 06:00 06/16/17 06:00 06/16/17 06:00 Intake and Output: 06/16/17 06/16/17 06:59 18:59 Intake Total 200 Output Total 0 Balance 200 - Medications Medications: Current Medications Acetaminophen (Tylenol 325mg Tab) 650 mg PO Q4 PRN PRN Reason: Fever >100.4 F Last Admin: 06/15/17 23:29 Dose: 650 mg Ascorbic Acid (Vitamin C 500 Mg Tab) 500 mg PO DAILY ESCOBAR Last Admin: 06/15/17 18:54 Dose: 500 mg Heparin Sodium (Porcine) (Heparin) 5,000 units SC Q12 [facility] PRN Reason: Protocol Last Admin: 06/15/17 23:29 Dose: 5,000 units Sodium Chloride (Sodium Chloride 0.9%) 1,000 mls @ 75 mls/hr IV .[id number] [facility]OBAR Last Admin: 06/16/17 07:02 Dose: 75 mls/hr Vancomycin HCl (Vancomycin 1gm) 1 gm in 250 mls @ 167 mls/hr IVPB Q12H [facility] PRN Reason: Protocol Last Admin: 06/16/17 04:02 Dose: 167 mls/hr Levofloxacin/Dextrose (Levaquin 500mg) 500 mg in 100 mls @ 100 mls/hr IVPB DAILY [facility] Ibuprofen (Motrin Tab) 400 mg PO Q6H PRN PRN Reason: Pain, Mild (1-3) Last Admin: 06/16/17 01:20 Dose: 400 mg Metoprolol Tartrate (Lopressor) 25 mg PO BID [facility] Last Admin: 06/15/17 18:56 Dose: 25 mg Multivitamins/Minerals (Therapeutic-M Tab) 1 tab PO 0800 [facility] Pantoprazole Sodium (Protonix Ec Tab) 40 mg PO 0600,1600 [facility] Last Admin: 06/16/17 06:11 Dose: 40 mg Zinc Sulfate (Zinc Sulfate 220 Mg Cap) 220 mg PO DAILY [facility] Last Admin: 06/15/17 18:54 Dose: 220 mg - Labs Labs: 06/16/17 05:30 06/16/17 05:30 PT 13.1 SECONDS (9.4-12.5) H 06/15/17 11:00 INR 1.19 (0.93-1.08) H 06/15/17 11:00 APTT 31.3 Seconds (25.1-36.5) 06/15/17 11:00 - Constitutional Appears: Well, Non-toxic, No Acute Distress, Unkempt - Head Exam Head Exam: ATRAUMATIC, NORMAL INSPECTION, NORMOCEPHALIC Additional comments: diffuse hair loss - Eye Exam Eye Exam: EOMI, Normal appearance, PERRL Pupil Exam: NORMAL ACCOMODATION - ENT Exam ENT Exam: Mucous Membranes Moist, Normal Exam - Neck Exam Neck Exam: Full ROM, Normal Inspection - Respiratory Exam Respiratory Exam: Clear to Ausculation Bilateral, NORMAL BREATHING PATTERN. absent: Rales, Rhonchi, Wheezes - Cardiovascular Exam Cardiovascular Exam: RRR, +S1, +S2. absent: Gallop, JVD, Rubs, Murmur - GI/Abdominal Exam GI & Abdominal Exam: Distended, Soft, Normal Bowel Sounds. absent: Firm, Rigid , Tenderness Additional comments: obese body habitus - Extremities Exam Extremities Exam: Pedal Edema (RLE>LLE) Additional comments: RLE medial malleolus ulcer (dressing applied) - Back Exam Back Exam: NORMAL INSPECTION - Neurological Exam Neurological Exam: Alert, Awake, Oriented x3 - Psychiatric Exam Psychiatric exam: Normal Affect, Normal Mood - Skin Skin Exam: Normal Color, Warm Additional comments: chronic venous stasis changes poor hygiene noted Assessment and Plan - Assessment and Plan (Free Text) Assessment: 67yo F PMH asthma, arthritis, vitamin C deficiency, and possible thyroid disease who presents with RLE ulcer/cellulitis and chronic venous changes b/l, found to be septic in ED, post code sepsis. Plan: 1. RLE cellulitis/ulcer s/p CODE SEPSIS - Ankle XR showed degenerative and arthritic changes - cont vancomycin and Levaquin d2 - lactate decreased from 3 to 1.4 - hemoglobin a1c 6.4, no intervention needed - lipid panel showed no lipid abnormalities - CRP and ESR elevated - pt remains afebrile, tachycardic and with leukocytosis - motrin prn for pain - tylenol prn fevers - MV/Vitamin C and Zinco to promote wound healing - wound culture growing G+ cocci and G- rebecca - ID consulted, recs appreciated - podiatry consulted, rec duoderm dressing and heel pads for pt 2. Leukocytosis, improving - cont IV antibiotics - urine culture growing G- rebecca - blood culture showing no growth after 24hrs - wound culture growing G+ cocci and G- rebecca - ID consulted 3. UTI - pt is asymptomatic and not offering any complaints - urine cx growing G- rebecca - pt currently on levaquin d2 - will await sensitivities and adjust meds appropriately - ID consulted, recs appreciated 4. Anemia - likely dilutional 2/2 IVF - will order anemia workup 5. asthma - currently no wheezing - duoneb prn - monitor oxygenation 6. arthritis - motrin prn pain 7. thyroid - TSH 3.98 8. vitamin C deficiency - MV and Vitamin C ordered PTX/Heparin HHD Patient was seen, examined and discussed with attending, Dr. Israel Ibarra PGY1 <Roger Wood - Last Filed: 06/16/17 13:42> Objective - Vital Signs/Intake and Output Vital Signs (last 24 hours): Temp Pulse Resp BP Pulse Ox 97.9 F 103 H 20 88/53 L 97 06/16/17 12:00 06/16/17 12:22 06/16/17 12:00 06/16/17 12:00 06/16/17 06:00 Intake and Output: 06/16/17 06/16/17 06:59 18:59 Intake Total 200 Output Total 0 Balance 200 - Medications Medications: Current Medications Acetaminophen (Tylenol 325mg Tab) 650 mg PO Q4 PRN PRN Reason: Fever >100.4 F Last Admin: 06/15/17 23:29 Dose: 650 mg Ascorbic Acid (Vitamin C 500 Mg Tab) 500 mg PO BID [facility] Ferrous Sulfate (Feosol) 324 mg PO TID [facility] Heparin Sodium (Porcine) (Heparin) 5,000 units SC Q12 [facility] PRN Reason: Protocol Last Admin: 06/16/17 12:22 Dose: 5,000 units Sodium Chloride (Sodium Chloride 0.9%) 1,000 mls @ 75 mls/hr IV .[id number] [facility] Last Admin: 06/16/17 07:02 Dose: 75 mls/hr Vancomycin HCl (Vancomycin 1gm) 1 gm in 250 mls @ 167 mls/hr IVPB Q12H [facility] PRN Reason: Protocol Last Admin: 06/16/17 04:02 Dose: 167 mls/hr Levofloxacin/Dextrose (Levaquin 500mg) 500 mg in 100 mls @ 100 mls/hr IVPB DAILY [facility] Last Admin: 06/16/17 12:22 Dose: 100 mls/hr Ibuprofen (Motrin Tab) 400 mg PO Q6H PRN PRN Reason: Pain, Mild (1-3) Last Admin: 06/16/17 01:20 Dose: 400 mg Ketorolac Tromethamine (Toradol) 30 mg IVP Q6 PRN PRN Reason: Pain, moderate (4-7) Metoprolol Tartrate (Lopressor) 25 mg PO BID [facility] Last Admin: 06/16/17 12:22 Dose: 25 mg Multivitamins/Minerals (Therapeutic-M Tab) 1 tab PO 0800 [facility] Last Admin: 06/16/17 12:22 Dose: 1 tab Pantoprazole Sodium (Protonix Ec Tab) 40 mg PO 0600,1600 [facility] Last Admin: 06/16/17 06:11 Dose: 40 mg Zinc Sulfate (Zinc Sulfate 220 Mg Cap) 220 mg PO DAILY [facility] Last Admin: 06/16/17 12:25 Dose: 220 mg - Labs Labs: 06/16/17 05:30 06/16/17 05:30 PT 13.1 SECONDS (9.4-12.5) H 06/15/17 11:00 INR 1.19 (0.93-1.08) H 06/15/17 11:00 APTT 31.3 Seconds (25.1-36.5) 06/15/17 11:00 Attending/Attestation - Attestation I have personally seen and examined this patient.: Yes I have fully participated in the care of the patient.: Yes I have reviewed all pertinent clinical information, including history, physical exam and plan: Yes Notes (Text): 06/16/17 13:40 Attending note; Patient seen and examined with resident. Patient is a 67 year old female with past medical history of asthma, arthritis, vitamin C deficiency,obesity is admitted for right lower leg cellulitis; started on IV vancomycin and levofloxacin. Penicillin allergy; ID evaluation requested. Continue local wound care. Podiatry evaluation appreciated. continue local wound care. X-ray showed chronic arthritis. ultrasound of right lower extremity is negative for DVT. Gait instability; PT evaluation requested. case discussed with well service floor worker and immigration case manager in detail for discharge planning. Patient currently lives with a friend. Upon discharge the patient will be referred to [facility] [place] [facility]. 06/16/17 13:42
[2017-06-16 12:01] LABS: TOTAL IRON BINDING CAPACITY 210.1 ug/dL (250-450)
[2017-06-16] MEDS: Multivitamin With Minerals Tab PO SCH (12:22)
--- NOTE | 2017-06-16 16:30 | CP.PCM.PN ---
<BraulioOrly - Last Filed: 06/16/17 16:32> Subjective - Date & Time of Evaluation Date of Evaluation: 06/16/17 Time of Evaluation: 16:26 - Subjective Subjective: 67 y/o female seen at bedside with attending Dr. Cano for right lower extremity cellulitis with swelling, lymphedema and draining ulceration. Pt states she is still having a lot of pain in the right leg but notices an improvement in the redness and swelling. Pt has kept dressing intact to right leg. Pt denies any acute events overnight. Pt denies any F/C/N/V/CP/SOB at this time. Pt admits to a headache throughout today. Objective - Vital Signs/Intake and Output Vital Signs (last 24 hours): Temp Pulse Resp BP Pulse Ox 97.9 F 103 H 20 88/53 L 97 06/16/17 12:00 06/16/17 12:22 06/16/17 12:00 06/16/17 12:00 06/16/17 06:00 Intake and Output: 06/16/17 06/16/17 06:59 18:59 Intake Total 200 Output Total 0 Balance 200 - Medications Medications: Current Medications Acetaminophen (Tylenol 325mg Tab) 650 mg PO Q4 PRN PRN Reason: Fever >100.4 F Last Admin: 06/15/17 23:29 Dose: 650 mg Ascorbic Acid (Vitamin C 500 Mg Tab) 500 mg PO BID [facility] Ferrous Sulfate (Feosol) 324 mg PO TID [facility] Last Admin: 06/16/17 14:18 Dose: 324 mg Heparin Sodium (Porcine) (Heparin) 5,000 units SC Q12 [facility] PRN Reason: Protocol Last Admin: 06/16/17 12:22 Dose: 5,000 units Sodium Chloride (Sodium Chloride 0.9%) 1,000 mls @ 75 mls/hr IV .[id number] [facility] Last Admin: 06/16/17 07:02 Dose: 75 mls/hr Vancomycin HCl (Vancomycin 1gm) 1 gm in 250 mls @ 167 mls/hr IVPB Q12H [facility] PRN Reason: Protocol Last Admin: 06/16/17 04:02 Dose: 167 mls/hr Levofloxacin/Dextrose (Levaquin 500mg) 500 mg in 100 mls @ 100 mls/hr IVPB DAILY [facility] Last Admin: 06/16/17 12:22 Dose: 100 mls/hr Ibuprofen (Motrin Tab) 400 mg PO Q6H PRN PRN Reason: Pain, Mild (1-3) Last Admin: 06/16/17 14:17 Dose: 400 mg Ketorolac Tromethamine (Toradol) 30 mg IVP Q6 PRN PRN Reason: Pain, moderate (4-7) Metoprolol Tartrate (Lopressor) 25 mg PO BID [facility] Last Admin: 06/16/17 12:22 Dose: 25 mg Multivitamins/Minerals (Therapeutic-M Tab) 1 tab PO 0800 [facility] Last Admin: 06/16/17 12:22 Dose: 1 tab Pantoprazole Sodium (Protonix Ec Tab) 40 mg PO 0600,1600 [facility] Last Admin: 06/16/17 06:11 Dose: 40 mg Zinc Sulfate (Zinc Sulfate 220 Mg Cap) 220 mg PO DAILY [facility] Last Admin: 06/16/17 12:25 Dose: 220 mg - Labs Labs: 06/16/17 05:30 06/16/17 05:30 PT 13.1 SECONDS (9.4-12.5) H 06/15/17 11:00 INR 1.19 (0.93-1.08) H 06/15/17 11:00 APTT 31.3 Seconds (25.1-36.5) 06/15/17 11:00 - Constitutional Appears: Well, Non-toxic, No Acute Distress - Extremities Exam Additional comments: Vasc: DP/PT pulses 2/4 B/L. +4 pitting edema to RLE distal to tibial tuberosity , +3 to LLE. Temperature gradient warm to warm on R, warm to cool on L. CFT < 3 sec to all digits Derm: Cellulitis to RLE distal to tibial tuberosity, resolving since admission. Approx 8cm x 6cm superficial draining ulceration with fibrotic and macerated tissue. Significant malodor present. No tunneling or undermining noted. Neuro: Protective sensation grossly intact Ortho: Significant tenderness on palpation of right lower extremity, increased on elevation of leg off the bed - Neurological Exam Neurological Exam: Alert, Awake, Oriented x3 - Psychiatric Exam Psychiatric exam: Normal Affect, Normal Mood Assessment and Plan - Assessment and Plan (Free Text) Assessment: 67 y/o female with bilateral lymphedema and RLE cellulitis and swelling with draining ulceration to right medial ankle Plan: Pt seen and evaluated with attending Dr. Cano Labs and vitals reviewed- afebrile, WBC 11.3 Extremity ultrasound negative for DVT to RLE Medial ankle ulceration cleansed with saline and 4x4 gauze used to remove macerated sloughing tissue Pt tolerated procedure without incident Dressed wound with xeroform, ABD and kerlix Multipodus boots ordered, please ensure they are on at all times when patient is in bed Podiatry will continue to follow while in house <Buffy Cano - Last Filed: 06/21/17 15:27> Objective - Vital Signs/Intake and Output Vital Signs (last 24 hours): Temp Pulse Resp BP Pulse Ox 98.4 F 89 22 108/53 L 97 06/21/17 07:00 06/21/17 10:26 06/21/17 07:00 06/21/17 10:26 06/21/17 07:00 Intake and Output: 06/21/17 06/21/17 06:59 18:59 Intake Total 660 480 Balance 660 480 - Medications Medications: Current Medications Acetaminophen (Tylenol 325mg Tab) 650 mg PO Q4 PRN PRN Reason: Fever >100.4 F Last Admin: 06/15/17 23:29 Dose: 650 mg Acetaminophen/Butalbital/Caffeine (Fioricet) 1 tab PO Q4H PRN PRN Reason: Headache Last Admin: 06/21/17 04:27 Dose: 1 tab Albuterol/Ipratropium (Duoneb 3 Mg/0.5 Mg (3 Ml) Ud) 3 ml IH [id number] PRN PRN Reason: Shortness of Breath Ascorbic Acid (Vitamin C 500 Mg Tab) 500 mg PO BID [facility] Last Admin: 06/21/17 10:25 Dose: 500 mg Docusate Sodium (Colace) 100 mg PO DAILY [facility] Last Admin: 06/21/17 10:35 Dose: Not Given Ferrous Sulfate (Feosol) 324 mg PO TID [facility] Last Admin: 06/21/17 14:07 Dose: 324 mg Heparin Sodium (Porcine) (Heparin) 5,000 units SC Q12 [facility] PRN Reason: Protocol Last Admin: 06/21/17 10:24 Dose: 5,000 units Vancomycin HCl (Vancomycin 1gm) 1 gm in 250 mls @ 167 mls/hr IVPB Q12H [facility] PRN Reason: Protocol Last Admin: 06/21/17 03:27 Dose: 167 mls/hr Aztreonam (Azactam 1 Gm) 100 mls @ 100 mls/hr IVPB Q8 [facility] PRN Reason: Protocol Stop: 06/21/17 17:31 Last Admin: 06/21/17 05:38 Dose: 100 mls/hr Metoprolol Tartrate (Lopressor) 25 mg PO BID [facility] Last Admin: 06/21/17 10:26 Dose: 25 mg Multivitamins/Minerals (Therapeutic-M Tab) 1 tab PO 0800 [facility] Last Admin: 06/21/17 10:25 Dose: 1 tab Nystatin (Nystop Topical Powder) 1 gm TOP DAILY [facility] Last Admin: 06/21/17 14:08 Dose: 1 gm Pantoprazole Sodium (Protonix Ec Tab) 40 mg PO 0600,1600 [facility] Last Admin: 06/21/17 05:39 Dose: 40 mg Polyethylene Glycol (Miralax) 17 gm PO BID [facility] Last Admin: 06/21/17 10:36 Dose: Not Given Zinc Sulfate (Zinc Sulfate 220 Mg Cap) 220 mg PO DAILY [facility] Last Admin: 06/21/17 10:25 Dose: 220 mg - Labs Labs: 06/21/17 09:15 06/21/17 09:15 PT 13.1 SECONDS (9.4-12.5) H 06/15/17 11:00 INR 1.19 (0.93-1.08) H 06/15/17 11:00 APTT 31.3 Seconds (25.1-36.5) 06/15/17 11:00 Attending/Attestation - Attestation I have personally seen and examined this patient.: Yes I have fully participated in the care of the patient.: Yes I have reviewed all pertinent clinical information, including history, physical exam and plan: Yes
--- NOTE | 2017-06-16 16:42 | CP.PCM.CON ---
History of Present Illness - History of Present Illness History of Present Illness: Infectious Disease Consultation: June 16, 2017 67 yo female presenting with 3 weeks of RLE ulceration, swelling and leaking from the wound as well as multiple falls in the past 3 weeks. The patient has an extensive medical history of asthma, arthritis, vitamin C deficiency, and possible thyroid disease. PMHx: asthma, arthritis, vitamin C deficiency, and possible thyroid disease PSHx: Left knee surgery. Allergies: PCN Social Hx: Denies tobacco, EtOH, or illicit drug use. Active Medications Acetaminophen (Tylenol 325mg Tab) 650 mg PO Q4 PRN PRN Reason: Fever >100.4 F Last Admin: 06/15/17 23:29 Dose: 650 mg Ascorbic Acid (Vitamin C 500 Mg Tab) 500 mg PO BID [facility] Ferrous Sulfate (Feosol) 324 mg PO TID [facility] Last Admin: 06/16/17 14:18 Dose: 324 mg Heparin Sodium (Porcine) (Heparin) 5,000 units SC Q12 [facility] PRN Reason: Protocol Last Admin: 06/16/17 12:22 Dose: 5,000 units Sodium Chloride (Sodium Chloride 0.9%) 1,000 mls @ 75 mls/hr IV .[id number] [facility] Last Admin: 06/16/17 07:02 Dose: 75 mls/hr Vancomycin HCl (Vancomycin 1gm) 1 gm in 250 mls @ 167 mls/hr IVPB Q12H [facility] PRN Reason: Protocol Last Admin: 06/16/17 04:02 Dose: 167 mls/hr Levofloxacin/Dextrose (Levaquin 500mg) 500 mg in 100 mls @ 100 mls/hr IVPB DAILY [facility] Last Admin: 06/16/17 12:22 Dose: 100 mls/hr Ibuprofen (Motrin Tab) 400 mg PO Q6H PRN PRN Reason: Pain, Mild (1-3) Last Admin: 06/16/17 14:17 Dose: 400 mg Ketorolac Tromethamine (Toradol) 30 mg IVP Q6 PRN PRN Reason: Pain, moderate (4-7) Metoprolol Tartrate (Lopressor) 25 mg PO BID [facility] Last Admin: 06/16/17 12:22 Dose: 25 mg Multivitamins/Minerals (Therapeutic-M Tab) 1 tab PO 0800 [facility] Last Admin: 06/16/17 12:22 Dose: 1 tab Pantoprazole Sodium (Protonix Ec Tab) 40 mg PO 0600,1600 [facility] Last Admin: 06/16/17 06:11 Dose: 40 mg Zinc Sulfate (Zinc Sulfate 220 Mg Cap) 220 mg PO DAILY [facility] Last Admin: 06/16/17 12:25 Dose: 220 mg Family Hx: none given ROS: No fevers, chills, nausea, vomiting, diarrhea, headaches, dizziness, chest pain , abdominal pain, melena, hematuria, hematemesis, hematochezia, depression, anxiety Past Patient History - Past Social History Smoking Status: Never Smoked Alcohol: None Drugs: Denies Home Situation {Lives}: Friends - CARDIAC Hx Cardiac Disorders: No - PULMONARY Hx Asthma: Yes - NEUROLOGICAL Hx Neurological Disorder: No - HEENT Hx HEENT Problems: No - RENAL Hx Chronic Kidney Disease: No - ENDOCRINE/METABOLIC Other/Comment: thyroid disease - HEMATOLOGICAL/ONCOLOGICAL Other/Comment: vitamin c deficiency - INTEGUMENTARY Hx Dermatological Problems: No - MUSCULOSKELETAL/RHEUMATOLOGICAL Hx Arthritis: Yes Hx Falls: Yes - GASTROINTESTINAL Hx Gastrointestinal Disorders: No - GENITOURINARY/GYNECOLOGICAL Hx Genitourinary Disorders: No - PSYCHIATRIC Hx Psychophysiologic Disorder: No Hx Substance Use: No - SURGICAL HISTORY Hx Orthopedic Surgery: Yes (L knee) Other/Comment: left knee surgery - ANESTHESIA Hx Anesthesia: Yes Hx Anesthesia Reactions: No Meds Allergies/Adverse Reactions: Allergies Allergy/AdvReac Type Severity Reaction Status Date / Time Penicillins Allergy ITCHING Verified 06/15/17 09:47 - Medications Medications: Current Medications Acetaminophen (Tylenol 325mg Tab) 650 mg PO Q4 PRN PRN Reason: Fever >100.4 F Last Admin: 06/15/17 23:29 Dose: 650 mg Ascorbic Acid (Vitamin C 500 Mg Tab) 500 mg PO BID [facility] Ferrous Sulfate (Feosol) 324 mg PO TID [facility] Last Admin: 06/16/17 14:18 Dose: 324 mg Heparin Sodium (Porcine) (Heparin) 5,000 units SC Q12 [facility] PRN Reason: Protocol Last Admin: 06/16/17 12:22 Dose: 5,000 units Sodium Chloride (Sodium Chloride 0.9%) 1,000 mls @ 75 mls/hr IV .[id number] [facility] Last Admin: 06/16/17 07:02 Dose: 75 mls/hr Vancomycin HCl (Vancomycin 1gm) 1 gm in 250 mls @ 167 mls/hr IVPB Q12H [facility] PRN Reason: Protocol Last Admin: 06/16/17 04:02 Dose: 167 mls/hr Levofloxacin/Dextrose (Levaquin 500mg) 500 mg in 100 mls @ 100 mls/hr IVPB DAILY [facility] Last Admin: 06/16/17 12:22 Dose: 100 mls/hr Ibuprofen (Motrin Tab) 400 mg PO Q6H PRN PRN Reason: Pain, Mild (1-3) Last Admin: 06/16/17 14:17 Dose: 400 mg Ketorolac Tromethamine (Toradol) 30 mg IVP Q6 PRN PRN Reason: Pain, moderate (4-7) Metoprolol Tartrate (Lopressor) 25 mg PO BID [facility] Last Admin: 06/16/17 12:22 Dose: 25 mg Multivitamins/Minerals (Therapeutic-M Tab) 1 tab PO 0800 [facility] Last Admin: 06/16/17 12:22 Dose: 1 tab Pantoprazole Sodium (Protonix Ec Tab) 40 mg PO 0600,1600 [facility] Last Admin: 06/16/17 06:11 Dose: 40 mg Zinc Sulfate (Zinc Sulfate 220 Mg Cap) 220 mg PO DAILY [facility] Last Admin: 06/16/17 12:25 Dose: 220 mg Physical Exam - Constitutional Appears: Non-toxic, No Acute Distress, Chronically Ill - Head Exam Head Exam: ATRAUMATIC, NORMOCEPHALIC Additional comments: marked hair loss - Eye Exam Eye Exam: EOMI, PERRL Pupil Exam: NORMAL ACCOMODATION, PERRL - ENT Exam ENT Exam: Mucous Membranes Moist, Normal External Ear Exam, TM's Normal Bilaterally Additional comments: dentures in place. - Respiratory Exam Respiratory Exam: Clear to Auscultation Bilateral, NORMAL BREATHING PATTERN. absent: Rales, Rhonchi, Wheezes - Cardiovascular Exam Cardiovascular Exam: REGULAR RHYTHM, RRR, +S1, +S2 - GI/Abdominal Exam GI & Abdominal Exam: Distended, Normal Bowel Sounds, Soft. absent: Guarding, Tenderness - Extremities Exam Extremities exam: Positive for: joint swelling, pedal edema Additional comments: RLE swollen R ankle with ulcer b/l chronic venous changes tinea and chronic venous stasis changes. Signs of arthritis in joints of the hands. - Neurological Exam Neurological exam: Alert, CN II-XII Intact, Oriented x3 - Psychiatric Exam Psychiatric exam: Normal Affect, Normal Mood - Skin Skin Exam: Erythema, Mottled Results - Vital Signs Recent Vital Signs: Last Vital Signs Temp 97.9 F 06/16/17 12:00 Pulse 103 H 06/16/17 12:22 Resp 20 06/16/17 12:00 BP 88/53 L 06/16/17 12:00 Pulse Ox 97 06/16/17 06:00 - Labs Result Diagrams: 06/16/17 05:30 06/16/17 05:30 Labs: Laboratory Results - last 24 hr 06/16/17 06/16/17 06/16/17 05:30 05:30 11:20 WBC 11.3 H D RBC 3.71 Hgb 8.3 L Hct 27.0 L MCV 72.8 L MCH 22.4 L MCHC 30.7 L RDW 18.0 H Plt Count 527 H MPV 7.8 Sodium 138 Potassium 3.8 Chloride 107 Carbon Dioxide 24 Anion Gap 11 BUN 16 Creatinine 1.0 Est GFR ( Amer) > 60 Est GFR (Non-Af Amer) 55 Random Glucose 89 Calcium 8.1 L Iron 16 L TIBC 210.1 L % Saturation 7 L Total Bilirubin 0.4 AST 35 ALT 25 Alkaline Phosphatase 125 Total Protein 7.1 Albumin 2.9 L Globulin 4.2 Albumin/Globulin Ratio 0.7 L Assessment & Plan - Assessment and Plan (Free Text) Assessment: 67 yo female with multiple medical issues with PCN allergy diagnosed as a teenager verified by an Encoding Machine Operator. The patient with leukocytosis. Consider use of Aztreonam for antibiotic coverage for now. Await cultures especially urine cultures. Diabetes and HTN history? Local wound care. Elevated ESR and C-reactive protein. Start Vancomycin and Aztreonam for antibiotic coverage. Supportive care. Thank you for allowing me to participate in the care of the patient, we will follow with you.
[2017-06-16 17:54] LABS: FERRITIN 69.2 ng/mL
[2017-06-16 18:24] LABS: FOLATE > 20.0 ng/mL
[2017-06-16] MEDS: Aztreonam 1 Gm in NS 100mL 100 ML IVPB SCH (19:33)
[2017-06-17] MEDS: Sodium Chloride 0.9% 1,000 ML IV SCH (01:00)
[2017-06-17] MEDS: Vancomycin 1gm in NS 250ml 1 GM/250 ML BAG IVPB SCH ×2 (04:55→18:11)
[2017-06-17] MEDS: Aztreonam 1 Gm in NS 100mL 100 ML IVPB SCH ×4 (05:14→22:18)
[2017-06-17] MEDS: Pantoprazole 40 mg EC Tab PO SCH ×2 (05:14→17:42)
[2017-06-17 06:40] LABS: HEMOGLOBIN 8.3 g/dL (12.0-16.0); MEAN CORPUSCULAR HEMOGLOBIN 22.6 pg (25.0-35.0); MEAN PLATELET VOLUME 7.8 fl (7.0-11.0); RBC 3.67 10^6/uL (3.5-6.1); RED CELL DISTRIBUTION WIDTH 18.3 % (11.5-14.5)
[2017-06-17] MEDS: Multivitamin With Minerals Tab PO SCH (07:57)
[2017-06-17 08:03] LABS: ALB/GLOB RATIO 0.7 (1.1-1.8); ALBUMIN 2.9 g/dL (3.0-4.8); ALT/SGPT 20 U/L (7-56); AST/SGOT 34 U/L (14-36); BLOOD UREA NITROGEN 13 mg/dL (7-21); CALCIUM 7.8 mg/dL (8.4-10.5); GFR AFRICAN-AMERICAN > 60; GFR NON-AFRICAN AMERICAN 55
[2017-06-17] MEDS ORDERED: Oxycodone/Acetaminophen 5/325 mg Tab PO PRN (13:36)
[2017-06-17] MEDS ORDERED: Enoxaparin 30 mg Syringe SC SCH (13:45)
--- NOTE | 2017-06-17 13:47 | CP.PCM.PN ---
<Sergo Ibarra - Last Filed: 06/17/17 13:41> Subjective - Date & Time of Evaluation Date of Evaluation: 06/17/17 Time of Evaluation: 09:41 - Subjective Subjective: patient was seen and examined bedside. she states that she was unable to tolerate PT yesterday and that overnight, she had a constant headache which she has at home too; she states she takes excedrin for it but it doesn't really help. she denies chest pain, shortness of breath, n/v/d, constipation, fevers/ chills, abdominal pain. Objective - Vital Signs/Intake and Output Vital Signs (last 24 hours): Temp Pulse Resp BP Pulse Ox 98.1 F 86 21 146/93 H 100 06/17/17 12:00 06/17/17 12:00 06/17/17 12:00 06/17/17 12:00 06/17/17 06:00 Intake and Output: 06/17/17 06/17/17 06:59 18:59 Intake Total 1440 Output Total 890 Balance 550 - Medications Medications: Current Medications Acetaminophen (Tylenol 325mg Tab) 650 mg PO Q4 PRN PRN Reason: Fever >100.4 F Last Admin: 06/15/17 23:29 Dose: 650 mg Acetaminophen/Butalbital/Caffeine (Fioricet) 1 tab PO Q4H PRN PRN Reason: Headache Ascorbic Acid (Vitamin C 500 Mg Tab) 500 mg PO BID [facility] Last Admin: 06/17/17 09:26 Dose: 500 mg Docusate Sodium (Colace) 100 mg PO DAILY [facility] Enoxaparin Sodium (Lovenox) 30 mg SC DAILY [facility] PRN Reason: Protocol Ferrous Sulfate (Feosol) 324 mg PO TID [facility] Last Admin: 06/17/17 09:24 Dose: 324 mg Heparin Sodium (Porcine) (Heparin) 5,000 units SC Q12 [facility] PRN Reason: Protocol Last Admin: 06/17/17 09:24 Dose: 5,000 units Sodium Chloride (Sodium Chloride 0.9%) 1,000 mls @ 75 mls/hr IV .[id number] [facility] Last Admin: 06/17/17 01:00 Dose: 75 mls/hr Vancomycin HCl (Vancomycin 1gm) 1 gm in 250 mls @ 167 mls/hr IVPB Q12H [facility] PRN Reason: Protocol Last Admin: 06/17/17 04:55 Dose: 167 mls/hr Aztreonam (Azactam 1 Gm) 100 mls @ 100 mls/hr IVPB Q8 [facility] PRN Reason: Protocol Stop: 06/21/17 17:31 Last Admin: 06/17/17 05:14 Dose: 100 mls/hr Ibuprofen (Motrin Tab) 400 mg PO Q6H PRN PRN Reason: Pain, Mild (1-3) Last Admin: 06/17/17 04:53 Dose: 400 mg Metoprolol Tartrate (Lopressor) 25 mg PO BID [facility] Last Admin: 06/17/17 09:25 Dose: 25 mg Multivitamins/Minerals (Therapeutic-M Tab) 1 tab PO 0800 [facility] Last Admin: 06/17/17 07:57 Dose: 1 tab Oxycodone/Acetaminophen (Percocet 5/325 Mg Tab) 1 tab PO Q6H PRN PRN Reason: Pain, moderate (4-7) Stop: 06/20/17 13:37 Pantoprazole Sodium (Protonix Ec Tab) 40 mg PO 0600,1600 [facility] Last Admin: 06/17/17 05:14 Dose: 40 mg Polyethylene Glycol (Miralax) 17 gm PO BID [facility] Zinc Sulfate (Zinc Sulfate 220 Mg Cap) 220 mg PO DAILY [facility] Last Admin: 06/17/17 09:26 Dose: 220 mg - Labs Labs: 06/17/17 05:30 06/17/17 05:30 PT 13.1 SECONDS (9.4-12.5) H 06/15/17 11:00 INR 1.19 (0.93-1.08) H 06/15/17 11:00 APTT 31.3 Seconds (25.1-36.5) 06/15/17 11:00 - Constitutional Appears: Well, Non-toxic, No Acute Distress - Head Exam Head Exam: ATRAUMATIC, NORMAL INSPECTION, NORMOCEPHALIC - Eye Exam Eye Exam: EOMI, Normal appearance, PERRL Pupil Exam: NORMAL ACCOMODATION - ENT Exam ENT Exam: Mucous Membranes Moist, Normal Exam - Neck Exam Neck Exam: Full ROM, Normal Inspection - Respiratory Exam Respiratory Exam: Clear to Ausculation Bilateral, NORMAL BREATHING PATTERN. absent: Rales, Rhonchi, Wheezes, Respiratory Distress - Cardiovascular Exam Cardiovascular Exam: RRR, +S1, +S2. absent: Gallop, JVD, Rubs, Murmur - GI/Abdominal Exam GI & Abdominal Exam: Soft, Normal Bowel Sounds. absent: Distended, Guarding, Tenderness Additional comments: obese body habitus - Extremities Exam Extremities Exam: Pedal Edema (RLE > LLE). absent: Calf Tenderness Additional comments: RLE ankle region dressed and wrapped in gauze bandage - Back Exam Back Exam: NORMAL INSPECTION - Neurological Exam Neurological Exam: Alert, Awake, Oriented x3 - Psychiatric Exam Psychiatric exam: Normal Affect, Normal Mood - Skin Skin Exam: Normal Color, Warm Assessment and Plan - Assessment and Plan (Free Text) Assessment: 67yo F PMH asthma, arthritis, and vitamin C deficiency who presents with RLE ulcer/cellulitis and chronic venous changes b/l, found to be septic in ED, post code sepsis. Plan: 1. RLE cellulitis/ulcer s/p CODE SEPSIS - cont vancomycin d3 and Azactam d2 - pt remains afebrile - tachycardia and leukocytosis are improving - motrin prn for pain - tylenol prn fevers - MV/Vitamin C and Zinco to promote wound healing - wound culture growing Proteus Mirabilis and beta hemolytic group b strep - ID consulted, recs appreciated - podiatry consulted, rec multipodus boot to be worn at all times and are managing RLE wound 2. UTI - pt is asymptomatic and not offering any complaints - leukocytosis improving - urine cx growing E. coli (sensitive to Azactam) - pt currently on Azactam d2 - ID consulted, recs appreciated 3. Headaches - fioricet PRN 4. Anemia likely 2/2 iron deficiency anemia - started on Feosol - trend H/H 5. asthma - currently no wheezing - duoneb prn - monitor oxygenation 6. arthritis - motrin prn pain mild - percocet prn pain mod 7. vitamin C deficiency - MV and Vitamin C ordered PTX/Heparin HHD Patient was seen, examined and discussed with attending, Dr. Israel Ibarra PGY1 <Roger Wood - Last Filed: 06/17/17 17:53> Objective - Vital Signs/Intake and Output Vital Signs (last 24 hours): Temp Pulse Resp BP Pulse Ox 98.6 F 88 20 150/76 100 06/17/17 16:00 06/17/17 16:00 06/17/17 16:00 06/17/17 16:00 06/17/17 16:00 Intake and Output: 06/17/17 06/17/17 06:59 18:59 Intake Total 1440 Output Total 890 Balance 550 - Medications Medications: Current Medications Acetaminophen (Tylenol 325mg Tab) 650 mg PO Q4 PRN PRN Reason: Fever >100.4 F Last Admin: 06/15/17 23:29 Dose: 650 mg Acetaminophen/Butalbital/Caffeine (Fioricet) 1 tab PO Q4H PRN PRN Reason: Headache Ascorbic Acid (Vitamin C 500 Mg Tab) 500 mg PO BID [facility] Last Admin: 06/17/17 09:26 Dose: 500 mg Docusate Sodium (Colace) 100 mg PO DAILY [facility] Ferrous Sulfate (Feosol) 324 mg PO TID [facility] Last Admin: 06/17/17 09:24 Dose: 324 mg Heparin Sodium (Porcine) (Heparin) 5,000 units SC Q12 [facility] PRN Reason: Protocol Last Admin: 06/17/17 09:24 Dose: 5,000 units Vancomycin HCl (Vancomycin 1gm) 1 gm in 250 mls @ 167 mls/hr IVPB Q12H [facility] PRN Reason: Protocol Last Admin: 06/17/17 04:55 Dose: 167 mls/hr Aztreonam (Azactam 1 Gm) 100 mls @ 100 mls/hr IVPB Q8 [facility] PRN Reason: Protocol Stop: 06/21/17 17:31 Last Admin: 06/17/17 05:14 Dose: 100 mls/hr Metoprolol Tartrate (Lopressor) 25 mg PO BID [facility] Last Admin: 06/17/17 09:25 Dose: 25 mg Multivitamins/Minerals (Therapeutic-M Tab) 1 tab PO 0800 [facility] Last Admin: 06/17/17 07:57 Dose: 1 tab Pantoprazole Sodium (Protonix Ec Tab) 40 mg PO 0600,1600 [facility] Last Admin: 06/17/17 05:14 Dose: 40 mg Polyethylene Glycol (Miralax) 17 gm PO BID [facility] Zinc Sulfate (Zinc Sulfate 220 Mg Cap) 220 mg PO DAILY [facility] Last Admin: 06/17/17 09:26 Dose: 220 mg - Labs Labs: 06/17/17 05:30 06/17/17 05:30 PT 13.1 SECONDS (9.4-12.5) H 06/15/17 11:00 INR 1.19 (0.93-1.08) H 06/15/17 11:00 APTT 31.3 Seconds (25.1-36.5) 06/15/17 11:00 Attending/Attestation - Attestation I have personally seen and examined this patient.: Yes I have fully participated in the care of the patient.: Yes I have reviewed all pertinent clinical information, including history, physical exam and plan: Yes Notes (Text): 06/17/17 17:51 Attending note; Patient seen and examined with resident. Patient is a 67 year old female with past medical history of asthma, arthritis, vitamin C deficiency,obesity is admitted for right lower leg cellulitis; started on IV vancomycin and azactam. Penicillin allergy; ID evaluation appreciated. Continue local wound care. Podiatry evaluation appreciated. continue local wound care. X-ray showed chronic arthritis. ultrasound of right lower extremity is negative for DVT. Headache; CT head is negative. Started on Fioricet. Anemia; iron deficiency. Started on by mouth iron. Dietitian evaluation requested. Gait instability; PT evaluation requested. case discussed with odd job worker and case planner in detail for discharge planning. Upon discharge [place] [facility] [place]
--- NOTE | 2017-06-17 15:56 | CP.PCM.PN ---
<Elijah Bai - Last Filed: 06/17/17 15:52> Subjective - Date & Time of Evaluation Date of Evaluation: 06/17/17 Time of Evaluation: 15:53 - Subjective Subjective: 67 y/o female seen at bedside with attending Dr. Cano for right lower extremity cellulitis with swelling, lymphedema and draining ulceration. Pt denies any acute events overnight. Pt states that she has pain on her right side with movement. Pt denies any F/C/N/V/CP/SOB at this time. Pt denies of any other pedal complains at this time. Objective - Vital Signs/Intake and Output Vital Signs (last 24 hours): Temp Pulse Resp BP Pulse Ox 98.1 F 86 21 146/93 H 100 06/17/17 12:00 06/17/17 12:00 06/17/17 12:00 06/17/17 12:00 06/17/17 06:00 Intake and Output: 06/17/17 06/17/17 06:59 18:59 Intake Total 1440 Output Total 890 Balance 550 - Medications Medications: Current Medications Acetaminophen (Tylenol 325mg Tab) 650 mg PO Q4 PRN PRN Reason: Fever >100.4 F Last Admin: 06/15/17 23:29 Dose: 650 mg Acetaminophen/Butalbital/Caffeine (Fioricet) 1 tab PO Q4H PRN PRN Reason: Headache Ascorbic Acid (Vitamin C 500 Mg Tab) 500 mg PO BID [facility] Last Admin: 06/17/17 09:26 Dose: 500 mg Docusate Sodium (Colace) 100 mg PO DAILY [facility] Ferrous Sulfate (Feosol) 324 mg PO TID [facility] Last Admin: 06/17/17 09:24 Dose: 324 mg Heparin Sodium (Porcine) (Heparin) 5,000 units SC Q12 [facility] PRN Reason: Protocol Last Admin: 06/17/17 09:24 Dose: 5,000 units Vancomycin HCl (Vancomycin 1gm) 1 gm in 250 mls @ 167 mls/hr IVPB Q12H [facility] PRN Reason: Protocol Last Admin: 06/17/17 04:55 Dose: 167 mls/hr Aztreonam (Azactam 1 Gm) 100 mls @ 100 mls/hr IVPB Q8 [facility] PRN Reason: Protocol Stop: 11/20/17 17:31 Last Admin: 06/17/17 05:14 Dose: 100 mls/hr Metoprolol Tartrate (Lopressor) 25 mg PO BID [facility] Last Admin: 06/17/17 09:25 Dose: 25 mg Multivitamins/Minerals (Therapeutic-M Tab) 1 tab PO 0800 [facility] Last Admin: 06/17/17 07:57 Dose: 1 tab Pantoprazole Sodium (Protonix Ec Tab) 40 mg PO 0600,1600 [facility] Last Admin: 06/17/17 05:14 Dose: 40 mg Polyethylene Glycol (Miralax) 17 gm PO BID [facility] Zinc Sulfate (Zinc Sulfate 220 Mg Cap) 220 mg PO DAILY [facility] Last Admin: 06/17/17 09:26 Dose: 220 mg - Labs Labs: 06/17/17 05:30 06/17/17 05:30 PT 13.1 SECONDS (9.4-12.5) H 06/15/17 11:00 INR 1.19 (0.93-1.08) H 06/15/17 11:00 APTT 31.3 Seconds (25.1-36.5) 06/15/17 11:00 - Constitutional Appears: Well, Non-toxic, No Acute Distress - Extremities Exam Extremities Exam: absent: Calf Tenderness Additional comments: Vasc: DP/PT pulses 2/4 B/L. +4 pitting edema to RLE distal to tibial tuberosity , +3 to LLE. Temperature gradient warm to warm on R, warm to cool on L. CFT < 3 sec to all digits Derm: Cellulitis to RLE distal to tibial tuberosity, appears fairly resolved. Approx 8cm x 6cm superficial draining ulceration with fibrotic and macerated tissue. Significant malodor present which appears to be resolving. No tunneling or undermining noted. Neuro: Protective sensation grossly intact Ortho: Significant tenderness on palpation of right lower extremity, increased on elevation of leg off the bed - Neurological Exam Neurological Exam: Alert, Awake, Oriented x3 - Psychiatric Exam Psychiatric exam: Normal Affect, Normal Mood Assessment and Plan - Assessment and Plan (Free Text) Assessment: 67 y/o female with bilateral lymphedema and RLE cellulitis and swelling with draining ulceration to right medial ankle Plan: Pt seen and evaluated with attending Dr. Cano Labs and vitals reviewed- afebrile, WBC 11.0 Extremity ultrasound negative for DVT to RLE Medial ankle ulceration cleansed with saline and 4x4 gauze Dressed wound with xeroform, ABD and kerlix Multipodus boots to be worn at all times when in bed Podiatry will continue to follow while in house <Buffy Cano - Last Filed: 06/21/17 15:29> Objective - Vital Signs/Intake and Output Vital Signs (last 24 hours): Temp Pulse Resp BP Pulse Ox 98.4 F 89 22 108/53 L 97 06/21/17 07:00 06/21/17 10:26 06/21/17 07:00 06/21/17 10:26 06/21/17 07:00 Intake and Output: 06/21/17 06/21/17 06:59 18:59 Intake Total 660 480 Balance 660 480 - Medications Medications: Current Medications Acetaminophen (Tylenol 325mg Tab) 650 mg PO Q4 PRN PRN Reason: Fever >100.4 F Last Admin: 06/15/17 23:29 Dose: 650 mg Acetaminophen/Butalbital/Caffeine (Fioricet) 1 tab PO Q4H PRN PRN Reason: Headache Last Admin: 06/21/17 04:27 Dose: 1 tab Albuterol/Ipratropium (Duoneb 3 Mg/0.5 Mg (3 Ml) Ud) 3 ml IH [id number] PRN PRN Reason: Shortness of Breath Ascorbic Acid (Vitamin C 500 Mg Tab) 500 mg PO BID [facility] Last Admin: 06/21/17 10:25 Dose: 500 mg Docusate Sodium (Colace) 100 mg PO DAILY [facility] Last Admin: 06/21/17 10:35 Dose: Not Given Ferrous Sulfate (Feosol) 324 mg PO TID [facility] Last Admin: 06/21/17 14:07 Dose: 324 mg Heparin Sodium (Porcine) (Heparin) 5,000 units SC Q12 [facility] PRN Reason: Protocol Last Admin: 06/21/17 10:24 Dose: 5,000 units Vancomycin HCl (Vancomycin 1gm) 1 gm in 250 mls @ 167 mls/hr IVPB Q12H [facility] PRN Reason: Protocol Last Admin: 06/21/17 03:27 Dose: 167 mls/hr Aztreonam (Azactam 1 Gm) 100 mls @ 100 mls/hr IVPB Q8 [facility] PRN Reason: Protocol Stop: 06/21/17 17:31 Last Admin: 06/21/17 05:38 Dose: 100 mls/hr Metoprolol Tartrate (Lopressor) 25 mg PO BID [facility] Last Admin: 06/21/17 10:26 Dose: 25 mg Multivitamins/Minerals (Therapeutic-M Tab) 1 tab PO 0800 [facility] Last Admin: 06/21/17 10:25 Dose: 1 tab Nystatin (Nystop Topical Powder) 1 gm TOP DAILY [facility] Last Admin: 06/21/17 14:08 Dose: 1 gm Pantoprazole Sodium (Protonix Ec Tab) 40 mg PO 0600,1600 [facility] Last Admin: 06/21/17 05:39 Dose: 40 mg Polyethylene Glycol (Miralax) 17 gm PO BID [facility] Last Admin: 06/21/17 10:36 Dose: Not Given Zinc Sulfate (Zinc Sulfate 220 Mg Cap) 220 mg PO DAILY [facility] Last Admin: 06/21/17 10:25 Dose: 220 mg - Labs Labs: 06/21/17 09:15 06/21/17 09:15 PT 13.1 SECONDS (9.4-12.5) H 06/15/17 11:00 INR 1.19 (0.93-1.08) H 06/15/17 11:00 APTT 31.3 Seconds (25.1-36.5) 06/15/17 11:00 Attending/Attestation - Attestation I have personally seen and examined this patient.: Yes I have fully participated in the care of the patient.: Yes I have reviewed all pertinent clinical information, including history, physical exam and plan: Yes
[2017-06-17] MEDS: POLYETHYLENE GLYCOL 3350 17 GM/Dose PACKET PO SCH (17:42)
--- NOTE | 2017-06-18 00:22 | CP.PCM.PN ---
Subjective - Date & Time of Evaluation Date of Evaluation: 06/17/17 Time of Evaluation: 23:59 - Subjective Subjective: Infectious Disease Follow Up: June 17, 2017 67 yo female presenting with 3 weeks of RLE ulceration, swelling and leaking from the wound as well as multiple falls in the past 3 weeks. The patient has an extensive medical history of asthma, arthritis, vitamin C deficiency, and possible thyroid disease. Had headaches overnight. draining RLE ulceration. Objective - Vital Signs/Intake and Output Vital Signs (last 24 hours): Temp Pulse Resp BP Pulse Ox 98.6 F 88 20 150/76 100 06/17/17 16:00 06/17/17 16:00 06/17/17 16:00 06/17/17 16:00 06/17/17 16:00 Intake and Output: 06/17/17 06/18/17 18:59 06:59 Intake Total 420 Balance 420 - Medications Medications: Current Medications Acetaminophen (Tylenol 325mg Tab) 650 mg PO Q4 PRN PRN Reason: Fever >100.4 F Last Admin: 06/15/17 23:29 Dose: 650 mg Acetaminophen/Butalbital/Caffeine (Fioricet) 1 tab PO Q4H PRN PRN Reason: Headache Ascorbic Acid (Vitamin C 500 Mg Tab) 500 mg PO BID [facility] Last Admin: 06/17/17 17:43 Dose: 500 mg Docusate Sodium (Colace) 100 mg PO DAILY [facility] Last Admin: 06/17/17 17:43 Dose: 100 mg Ferrous Sulfate (Feosol) 324 mg PO TID [facility] Last Admin: 06/17/17 18:23 Dose: Not Given Heparin Sodium (Porcine) (Heparin) 5,000 units SC Q12 [facility] PRN Reason: Protocol Last Admin: 06/17/17 21:19 Dose: 5,000 units Vancomycin HCl (Vancomycin 1gm) 1 gm in 250 mls @ 167 mls/hr IVPB Q12H [facility] PRN Reason: Protocol Last Admin: 06/17/17 18:11 Dose: 167 mls/hr Aztreonam (Azactam 1 Gm) 100 mls @ 100 mls/hr IVPB Q8 [facility] PRN Reason: Protocol Stop: 06/21/17 17:31 Last Admin: 06/17/17 22:18 Dose: 100 mls/hr Metoprolol Tartrate (Lopressor) 25 mg PO BID [facility] Last Admin: 06/17/17 17:43 Dose: 25 mg Multivitamins/Minerals (Therapeutic-M Tab) 1 tab PO 0800 [facility] Last Admin: 06/17/17 07:57 Dose: 1 tab Pantoprazole Sodium (Protonix Ec Tab) 40 mg PO 0600,1600 [facility] Last Admin: 06/17/17 17:42 Dose: 40 mg Polyethylene Glycol (Miralax) 17 gm PO BID [facility] Last Admin: 06/17/17 17:42 Dose: 17 gm Zinc Sulfate (Zinc Sulfate 220 Mg Cap) 220 mg PO DAILY [facility] Last Admin: 06/17/17 09:26 Dose: 220 mg - Labs Labs: 06/17/17 05:30 06/17/17 05:30 PT 13.1 SECONDS (9.4-12.5) H 06/15/17 11:00 INR 1.19 (0.93-1.08) H 06/15/17 11:00 APTT 31.3 Seconds (25.1-36.5) 06/15/17 11:00 - Constitutional Appears: Non-toxic, No Acute Distress, Chronically Ill - Head Exam Head Exam: ATRAUMATIC, NORMOCEPHALIC Additional comments: marked hair loss - Eye Exam Eye Exam: EOMI, PERRL Pupil Exam: NORMAL ACCOMODATION, PERRL - ENT Exam ENT Exam: Mucous Membranes Moist, Normal External Ear Exam, TM's Normal Bilaterally Additional comments: dentures noted - Respiratory Exam Respiratory Exam: Clear to Ausculation Bilateral, NORMAL BREATHING PATTERN. absent: Rales, Rhonchi, Wheezes - Cardiovascular Exam Cardiovascular Exam: REGULAR RHYTHM, RRR, +S1, +S2 - GI/Abdominal Exam GI & Abdominal Exam: Distended, Soft, Normal Bowel Sounds. absent: Tenderness Additional comments: largely distended but may be normal for the patient. - Extremities Exam Extremities Exam: Joint Swelling, Pedal Edema Additional comments: RLE swollen R ankle with ulcer b/l chronic venous changes tinea and chronic venous stasis changes. Signs of arthritis in joints of the hands. - Neurological Exam Neurological Exam: Awake, CN II-XII Intact, Oriented x3 - Psychiatric Exam Psychiatric exam: Normal Affect, Normal Mood - Skin Skin Exam: Erythema, Mottled Additional comments: As above Assessment and Plan - Assessment and Plan (Free Text) Assessment: 67 yo female with multiple medical issues with PCN allergy diagnosed as a teenager verified by an Geography Head. The patient with leukocytosis. Consider use of Aztreonam for antibiotic coverage for now. Await cultures especially urine cultures. Diabetes and HTN history? Local wound care. Elevated ESR and C-reactive protein. Continue Vancomycin and Aztreonam for antibiotic coverage. UTI with E. coli sensitive to Azactam. Maintain vancomycin for cellulitis IV. Supportive care. Thank you for allowing me to participate in the care of the patient, we will follow with you.
[2017-06-18] MEDS: Vancomycin 1gm in NS 250ml 1 GM/250 ML BAG IVPB SCH ×2 (04:37→17:12)
[2017-06-18] MEDS: Apap-Butalbital-Caffeine 325-50-40mg Tab PO PRN ×3 (04:48→16:24)
[2017-06-18] MEDS: Aztreonam 1 Gm in NS 100mL 100 ML IVPB SCH ×3 (05:16→22:01)
[2017-06-18] MEDS: Pantoprazole 40 mg EC Tab PO SCH ×2 (05:17→17:13)
[2017-06-18 07:11] LABS: HEMOGLOBIN 8.8 g/dL (12.0-16.0); MEAN CELL VOLUME 72.7 fl (80.0-105.0); MEAN CORPUSCULAR HEMOGLOBIN 22.4 pg (25.0-35.0); MEAN CORPUSCULAR HGB CONC 30.9 g/dl (31.0-37.0); MEAN PLATELET VOLUME 7.8 fl (7.0-11.0); RBC 3.92 10^6/uL (3.5-6.1); RED CELL DISTRIBUTION WIDTH 18.3 % (11.5-14.5); WHITE BLOOD COUNT 12.2 10^3/ul (4.5-11.0)
[2017-06-18 07:51] LABS: ALB/GLOB RATIO 0.7 (1.1-1.8); ALT/SGPT 17 U/L (7-56); AST/SGOT 36 U/L (14-36); BLOOD UREA NITROGEN 10 mg/dL (7-21); CALCIUM 7.8 mg/dL (8.4-10.5); GFR AFRICAN-AMERICAN > 60; GFR NON-AFRICAN AMERICAN > 60
[2017-06-18] MEDS: Multivitamin With Minerals Tab PO SCH (08:22)
[2017-06-18] MEDS: POLYETHYLENE GLYCOL 3350 17 GM/Dose PACKET PO SCH ×2 (10:25→17:12)
--- NOTE | 2017-06-18 12:18 | CP.PCM.PN ---
<Elijah Bai - Last Filed: 06/18/17 12:15> Subjective - Date & Time of Evaluation Date of Evaluation: 06/18/17 Time of Evaluation: 12:16 - Subjective Subjective: 67 y/o female seen at bedside with attending Dr. Tariq for right lower extremity cellulitis with swelling, lymphedema and draining ulceration. Patient appears to be resting comfortably in her bed and denies any acute events overnight. Patient states that she has pain on her right side with movement. Patient denies any F/C/N/V/CP/SOB at this time. Patient denies of any other pedal complains at this time. Objective - Vital Signs/Intake and Output Vital Signs (last 24 hours): Temp Pulse Resp BP Pulse Ox 98.1 F 92 H 20 151/83 H 94 L 06/18/17 07:30 06/18/17 10:24 06/18/17 07:30 06/18/17 10:24 06/18/17 07:30 Intake and Output: 06/18/17 06/18/17 06:59 18:59 Intake Total 780 Balance 780 - Medications Medications: Current Medications Acetaminophen (Tylenol 325mg Tab) 650 mg PO Q4 PRN PRN Reason: Fever >100.4 F Last Admin: 06/15/17 23:29 Dose: 650 mg Acetaminophen/Butalbital/Caffeine (Fioricet) 1 tab PO Q4H PRN PRN Reason: Headache Last Admin: 06/18/17 10:24 Dose: 1 tab Ascorbic Acid (Vitamin C 500 Mg Tab) 500 mg PO BID [facility] Last Admin: 06/18/17 10:24 Dose: 500 mg Docusate Sodium (Colace) 100 mg PO DAILY [facility] Last Admin: 06/18/17 10:24 Dose: 100 mg Ferrous Sulfate (Feosol) 324 mg PO TID [facility] Last Admin: 06/18/17 10:24 Dose: 324 mg Heparin Sodium (Porcine) (Heparin) 5,000 units SC Q12 [facility] PRN Reason: Protocol Last Admin: 06/18/17 10:25 Dose: 5,000 units Vancomycin HCl (Vancomycin 1gm) 1 gm in 250 mls @ 167 mls/hr IVPB Q12H [facility] PRN Reason: Protocol Last Admin: 06/18/17 04:37 Dose: 167 mls/hr Aztreonam (Azactam 1 Gm) 100 mls @ 100 mls/hr IVPB Q8 [facility] PRN Reason: Protocol Stop: 06/21/17 17:31 Last Admin: 06/18/17 05:16 Dose: 100 mls/hr Metoprolol Tartrate (Lopressor) 25 mg PO BID [facility] Last Admin: 06/18/17 10:24 Dose: 25 mg Multivitamins/Minerals (Therapeutic-M Tab) 1 tab PO 0800 [facility] Last Admin: 06/17/17 07:57 Dose: 1 tab Pantoprazole Sodium (Protonix Ec Tab) 40 mg PO 0600,1600 [facility] Last Admin: 06/18/17 05:17 Dose: 40 mg Polyethylene Glycol (Miralax) 17 gm PO BID [facility] Last Admin: 06/18/17 10:25 Dose: 17 gm Zinc Sulfate (Zinc Sulfate 220 Mg Cap) 220 mg PO DAILY [facility] Last Admin: 06/18/17 10:25 Dose: 220 mg - Labs Labs: 06/18/17 06:40 06/18/17 06:40 PT 13.1 SECONDS (9.4-12.5) H 06/15/17 11:00 INR 1.19 (0.93-1.08) H 06/15/17 11:00 APTT 31.3 Seconds (25.1-36.5) 06/15/17 11:00 - Constitutional Appears: Well, Non-toxic, No Acute Distress - Extremities Exam Extremities Exam: absent: Calf Tenderness Additional comments: Vasc: DP/PT pulses 2/4 B/L. +4 pitting edema to RLE distal to tibial tuberosity , +3 to LLE. Temperature gradient warm to warm on R, warm to cool on L. CFT < 3 sec to all digits Derm: Cellulitis to RLE distal to tibial tuberosity, appears fairly resolved. Approx 8cm x 6cm superficial draining ulceration with fibrotic and macerated tissue. malodor present which appears to be resolving. No tunneling or undermining noted. Neuro: Protective sensation grossly intact Ortho: Significant tenderness on palpation of right lower extremity, increased on elevation of leg off the bed - Neurological Exam Neurological Exam: Alert, Awake - Psychiatric Exam Psychiatric exam: Normal Affect, Normal Mood Assessment and Plan - Assessment and Plan (Free Text) Assessment: 67 y/o female with bilateral lymphedema and RLE cellulitis and swelling with draining ulceration to right medial ankle Plan: Patient seen and evaluated with attending Dr. Tariq Labs and vitals reviewed- afebrile, WBC 12.2 today Cultures (Final): Proteus species and Beta hemolytic GBS IV abx as per ID: Vancomycin and Aztreonam Extremity ultrasound negative for DVT to RLE Medial ankle ulceration cleansed with saline and 4x4 gauze Dressed wound with xeroform, maxsorb, ABD and kerlix Multipodus boots to be worn at all times when in bed Podiatry will continue to follow while in house <Jarrett Tariq - Last Filed: 06/18/17 18:22> Objective - Vital Signs/Intake and Output Vital Signs (last 24 hours): Temp Pulse Resp BP Pulse Ox 98.1 F 85 20 165/85 H 94 L 06/18/17 07:30 06/18/17 17:13 06/18/17 07:30 06/18/17 17:13 06/18/17 07:30 Intake and Output: 06/18/17 06/18/17 06:59 18:59 Intake Total 780 480 Balance 780 480 - Medications Medications: Current Medications Acetaminophen (Tylenol 325mg Tab) 650 mg PO Q4 PRN PRN Reason: Fever >100.4 F Last Admin: 06/15/17 23:29 Dose: 650 mg Acetaminophen/Butalbital/Caffeine (Fioricet) 1 tab PO Q4H PRN PRN Reason: Headache Last Admin: 06/18/17 16:24 Dose: 1 tab Albuterol/Ipratropium (Duoneb 3 Mg/0.5 Mg (3 Ml) Ud) 3 ml IH [id number] PRN PRN Reason: Shortness of Breath Ascorbic Acid (Vitamin C 500 Mg Tab) 500 mg PO BID [facility] Last Admin: 06/18/17 17:14 Dose: 500 mg Docusate Sodium (Colace) 100 mg PO DAILY [facility] Last Admin: 06/18/17 10:24 Dose: 100 mg Ferrous Sulfate (Feosol) 324 mg PO TID [facility] Last Admin: 06/18/17 17:14 Dose: 324 mg Heparin Sodium (Porcine) (Heparin) 5,000 units SC Q12 [facility] PRN Reason: Protocol Last Admin: 06/18/17 10:25 Dose: 5,000 units Vancomycin HCl (Vancomycin 1gm) 1 gm in 250 mls @ 167 mls/hr IVPB Q12H [facility] PRN Reason: Protocol Last Admin: 06/18/17 17:12 Dose: 167 mls/hr Aztreonam (Azactam 1 Gm) 100 mls @ 100 mls/hr IVPB Q8 [facility] PRN Reason: Protocol Stop: 06/21/17 17:31 Last Admin: 06/18/17 14:05 Dose: 100 mls/hr Metoprolol Tartrate (Lopressor) 25 mg PO BID [facility] Last Admin: 06/18/17 17:13 Dose: 25 mg Multivitamins/Minerals (Therapeutic-M Tab) 1 tab PO 0800 [facility] Last Admin: 06/18/17 08:22 Dose: 1 tab Pantoprazole Sodium (Protonix Ec Tab) 40 mg PO 0600,1600 [facility] Last Admin: 06/18/17 17:13 Dose: 40 mg Polyethylene Glycol (Miralax) 17 gm PO BID [facility] Last Admin: 06/18/17 17:12 Dose: 17 gm Zinc Sulfate (Zinc Sulfate 220 Mg Cap) 220 mg PO DAILY [facility] Last Admin: 06/18/17 10:25 Dose: 220 mg - Labs Labs: 06/18/17 06:40 06/18/17 06:40 PT 13.1 SECONDS (9.4-12.5) H 06/15/17 11:00 INR 1.19 (0.93-1.08) H 06/15/17 11:00 APTT 31.3 Seconds (25.1-36.5) 06/15/17 11:00 Attending/Attestation - Attestation I have personally seen and examined this patient.: Yes I have fully participated in the care of the patient.: Yes I have reviewed all pertinent clinical information, including history, physical exam and plan: Yes
[2017-06-18] MEDS ORDERED: Albuterol-Ipratrop 3 mg / 0.5 (3 ml) UD IH STA (13:00)
--- NOTE | 2017-06-18 13:24 | CP.PCM.PN ---
<Sergo Ibarra - Last Filed: 06/18/17 13:26> Subjective - Date & Time of Evaluation Date of Evaluation: 06/18/17 Time of Evaluation: 09:20 - Subjective Subjective: patient was seen and examined bedside. she complains of a headache but denies changes in vision/hearing, and states that she has had this headache for a 3 months. otherwise, pt also complains of shortness of breath. when asked about the size of her belly, she states that she is not constipated and that she usually has a BM every other day, and that she is due for one today. when asked if she takes off her dentures (as a possible source of the headache), pt states that she takes off her dentures off at night and cleans them, but doesn't completely take them off because it's uncomfortable without them in place. otherwise, pt denies cp, abdominal pain, n/v/d, fevers/chills, cough. Objective - Vital Signs/Intake and Output Vital Signs (last 24 hours): Temp Pulse Resp BP Pulse Ox 98.1 F 92 H 20 151/83 H 94 L 06/18/17 07:30 06/18/17 13:03 06/18/17 07:30 06/18/17 10:24 06/18/17 07:30 Intake and Output: 06/18/17 06/18/17 06:59 18:59 Intake Total 780 Balance 780 - Medications Medications: Current Medications Acetaminophen (Tylenol 325mg Tab) 650 mg PO Q4 PRN PRN Reason: Fever >100.4 F Last Admin: 06/15/17 23:29 Dose: 650 mg Acetaminophen/Butalbital/Caffeine (Fioricet) 1 tab PO Q4H PRN PRN Reason: Headache Last Admin: 06/18/17 10:24 Dose: 1 tab Albuterol/Ipratropium (Duoneb 3 Mg/0.5 Mg (3 Ml) Ud) 3 ml IH [id number] PRN PRN Reason: Shortness of Breath Ascorbic Acid (Vitamin C 500 Mg Tab) 500 mg PO BID [facility] Last Admin: 06/18/17 10:24 Dose: 500 mg Docusate Sodium (Colace) 100 mg PO DAILY [facility] Last Admin: 06/18/17 10:24 Dose: 100 mg Ferrous Sulfate (Feosol) 324 mg PO TID [facility] Last Admin: 06/18/17 10:24 Dose: 324 mg Heparin Sodium (Porcine) (Heparin) 5,000 units SC Q12 [facility] PRN Reason: Protocol Last Admin: 06/18/17 10:25 Dose: 5,000 units Vancomycin HCl (Vancomycin 1gm) 1 gm in 250 mls @ 167 mls/hr IVPB Q12H [facility] PRN Reason: Protocol Last Admin: 06/18/17 04:37 Dose: 167 mls/hr Aztreonam (Azactam 1 Gm) 100 mls @ 100 mls/hr IVPB Q8 [facility] PRN Reason: Protocol Stop: 06/21/17 17:31 Last Admin: 06/18/17 05:16 Dose: 100 mls/hr Metoprolol Tartrate (Lopressor) 25 mg PO BID [facility] Last Admin: 06/18/17 10:24 Dose: 25 mg Multivitamins/Minerals (Therapeutic-M Tab) 1 tab PO 0800 [facility] Last Admin: 06/18/17 08:22 Dose: 1 tab Pantoprazole Sodium (Protonix Ec Tab) 40 mg PO 0600,1600 [facility] Last Admin: 06/18/17 05:17 Dose: 40 mg Polyethylene Glycol (Miralax) 17 gm PO BID [facility] Last Admin: 06/18/17 10:25 Dose: 17 gm Zinc Sulfate (Zinc Sulfate 220 Mg Cap) 220 mg PO DAILY [facility] Last Admin: 06/18/17 10:25 Dose: 220 mg - Labs Labs: 06/18/17 06:40 06/18/17 06:40 PT 13.1 SECONDS (9.4-12.5) H 06/15/17 11:00 INR 1.19 (0.93-1.08) H 06/15/17 11:00 APTT 31.3 Seconds (25.1-36.5) 06/15/17 11:00 - Constitutional Appears: Well, Non-toxic, No Acute Distress, Unkempt - Head Exam Head Exam: ATRAUMATIC, NORMAL INSPECTION, NORMOCEPHALIC - Eye Exam Eye Exam: EOMI, Normal appearance, PERRL Pupil Exam: NORMAL ACCOMODATION - ENT Exam ENT Exam: Mucous Membranes Moist Additional comments: dentures in place - Neck Exam Neck Exam: Full ROM, Normal Inspection - Respiratory Exam Respiratory Exam: Clear to Ausculation Bilateral, NORMAL BREATHING PATTERN. absent: Rales, Rhonchi, Wheezes - Cardiovascular Exam Cardiovascular Exam: RRR, +S1, +S2. absent: JVD, Rubs, Murmur - GI/Abdominal Exam GI & Abdominal Exam: Distended, Soft, Normal Bowel Sounds. absent: Firm, Guarding, Rigid, Tenderness, Rebound - Extremities Exam Extremities Exam: absent: Calf Tenderness, Joint Swelling Additional comments: b/l LE in multipodus boot - Back Exam Back Exam: NORMAL INSPECTION - Neurological Exam Neurological Exam: Alert, Awake, Oriented x3 - Psychiatric Exam Psychiatric exam: Normal Affect, Normal Mood - Skin Skin Exam: Normal Color, Warm Assessment and Plan - Assessment and Plan (Free Text) Assessment: 67yo F PMH asthma, arthritis, and vitamin C deficiency who presents with RLE ulcer/cellulitis and chronic venous changes b/l, found to be septic in ED, post code sepsis. Plan: 1. RLE cellulitis/ulcer s/p CODE SEPSIS - cont vancomycin d4 and Azactam d3 - pt remains afebrile - tachycardia and leukocytosis are improving - motrin prn for pain - tylenol prn fevers - MV/Vitamin C and Zinco to promote wound healing - wound culture growing Proteus Mirabilis and beta hemolytic group b strep - ID consulted, recs appreciated - podiatry consulted, rec multipodus boot to be worn at all times and are managing RLE wound - PT Eval, rec TED due to deconditioning 2. Headache - fioricet PRN - CT Head was negative on admission - cont to monitor for any neurological changes 3. Shortness of breath - duoneb STAT and Q4 PRN - O2Sat >94% on 2L NC - cont O2 NC PRN 4. Constipation - Colace and Miralax [facility] - consider Dulcolax if pt still doesn't have BM by tomorrow 5. UTI - pt is asymptomatic and not offering any complaints - leukocytosis improving - urine cx growing E. coli (sensitive to Azactam) - pt currently on Azactam d3 - ID consulted, recs appreciated 6. Anemia likely 2/2 iron deficiency anemia - started on Feosol - trend H/H 7. arthritis - motrin prn pain mild 8. vitamin C deficiency - MV and Vitamin C ordered PTX/Heparin HHD Dispo: patient is in process of getting social security with , still requires more paperwork. Patient was seen, examined and discussed with attending, Dr. Israel Ibarra PGY1 <Roger Wood - Last Filed: 06/18/17 16:56> Objective - Vital Signs/Intake and Output Vital Signs (last 24 hours): Temp Pulse Resp BP Pulse Ox 98.1 F 92 H 20 151/83 H 94 L 06/18/17 07:30 06/18/17 13:03 06/18/17 07:30 06/18/17 10:24 06/18/17 07:30 Intake and Output: 06/18/17 06/18/17 06:59 18:59 Intake Total 780 480 Balance 780 480 - Medications Medications: Current Medications Acetaminophen (Tylenol 325mg Tab) 650 mg PO Q4 PRN PRN Reason: Fever >100.4 F Last Admin: 06/15/17 23:29 Dose: 650 mg Acetaminophen/Butalbital/Caffeine (Fioricet) 1 tab PO Q4H PRN PRN Reason: Headache Last Admin: 06/18/17 16:24 Dose: 1 tab Albuterol/Ipratropium (Duoneb 3 Mg/0.5 Mg (3 Ml) Ud) 3 ml IH [id number] PRN PRN Reason: Shortness of Breath Ascorbic Acid (Vitamin C 500 Mg Tab) 500 mg PO BID [facility] Last Admin: 06/18/17 10:24 Dose: 500 mg Docusate Sodium (Colace) 100 mg PO DAILY [facility] Last Admin: 06/18/17 10:24 Dose: 100 mg Ferrous Sulfate (Feosol) 324 mg PO TID [facility] Last Admin: 06/18/17 14:06 Dose: 324 mg Heparin Sodium (Porcine) (Heparin) 5,000 units SC Q12 [facility] PRN Reason: Protocol Last Admin: 06/18/17 10:25 Dose: 5,000 units Vancomycin HCl (Vancomycin 1gm) 1 gm in 250 mls @ 167 mls/hr IVPB Q12H [facility] PRN Reason: Protocol Last Admin: 06/18/17 04:37 Dose: 167 mls/hr Aztreonam (Azactam 1 Gm) 100 mls @ 100 mls/hr IVPB Q8 [facility] PRN Reason: Protocol Stop: 06/21/17 17:31 Last Admin: 06/18/17 14:05 Dose: 100 mls/hr Metoprolol Tartrate (Lopressor) 25 mg PO BID [facility] Last Admin: 06/18/17 10:24 Dose: 25 mg Multivitamins/Minerals (Therapeutic-M Tab) 1 tab PO 0800 [facility] Last Admin: 06/18/17 08:22 Dose: 1 tab Pantoprazole Sodium (Protonix Ec Tab) 40 mg PO 0600,1600 [facility] Last Admin: 06/18/17 05:17 Dose: 40 mg Polyethylene Glycol (Miralax) 17 gm PO BID [facility] Last Admin: 06/18/17 10:25 Dose: 17 gm Zinc Sulfate (Zinc Sulfate 220 Mg Cap) 220 mg PO DAILY [facility] Last Admin: 06/18/17 10:25 Dose: 220 mg - Labs Labs: 06/18/17 06:40 06/18/17 06:40 PT 13.1 SECONDS (9.4-12.5) H 06/15/17 11:00 INR 1.19 (0.93-1.08) H 06/15/17 11:00 APTT 31.3 Seconds (25.1-36.5) 06/15/17 11:00 Attending/Attestation - Attestation I have personally seen and examined this patient.: Yes I have fully participated in the care of the patient.: Yes I have reviewed all pertinent clinical information, including history, physical exam and plan: Yes Notes (Text): 06/18/17 16:54 Attending note; Patient seen and examined with resident. Patient is a 67 year old female with past medical history of asthma, arthritis, obesity is admitted for right lower leg cellulitis; started on IV vancomycin and azactam. Continue local wound care. Podiatry evaluation appreciated. Anemia; iron deficiency. on IV iron. Gait instability; PT evaluation appreciated. Subacute rehabilitation recommended. case discussed with direct service worker and machine adjuster leader case trim in detail for discharge planning. Patient had telephone interview with Social Security office. Upon discharge the patient will be referred to [facility]. 06/18/17 16:56
[2017-06-18] MEDS ORDERED: Bisacodyl 5mg EC Tab PO STA (14:30)
--- NOTE | 2017-06-18 18:03 | CP.PCM.PN ---
Subjective - Date & Time of Evaluation Date of Evaluation: 06/18/17 Time of Evaluation: 17:00 - Subjective Subjective: Infectious Disease Follow Up: June 18, 2017 67 yo female presenting with 3 weeks of RLE ulceration, swelling and leaking from the wound as well as multiple falls in the past 3 weeks. The patient has an extensive medical history of asthma, arthritis, vitamin C deficiency, and possible thyroid disease. Had headaches overnight. draining RLE ulceration. Objective - Vital Signs/Intake and Output Vital Signs (last 24 hours): Temp Pulse Resp BP Pulse Ox 98.1 F 92 H 20 151/83 H 94 L 06/18/17 07:30 06/18/17 13:03 06/18/17 07:30 06/18/17 10:24 06/18/17 07:30 Intake and Output: 06/18/17 06/18/17 06:59 18:59 Intake Total 780 480 Balance 780 480 - Medications Medications: Current Medications Acetaminophen (Tylenol 325mg Tab) 650 mg PO Q4 PRN PRN Reason: Fever >100.4 F Last Admin: 06/15/17 23:29 Dose: 650 mg Acetaminophen/Butalbital/Caffeine (Fioricet) 1 tab PO Q4H PRN PRN Reason: Headache Last Admin: 06/18/17 16:24 Dose: 1 tab Albuterol/Ipratropium (Duoneb 3 Mg/0.5 Mg (3 Ml) Ud) 3 ml IH [id number] PRN PRN Reason: Shortness of Breath Ascorbic Acid (Vitamin C 500 Mg Tab) 500 mg PO BID [facility] Last Admin: 06/18/17 10:24 Dose: 500 mg Docusate Sodium (Colace) 100 mg PO DAILY [facility] Last Admin: 06/18/17 10:24 Dose: 100 mg Ferrous Sulfate (Feosol) 324 mg PO TID [facility] Last Admin: 06/18/17 14:06 Dose: 324 mg Heparin Sodium (Porcine) (Heparin) 5,000 units SC Q12 [facility] PRN Reason: Protocol Last Admin: 06/18/17 10:25 Dose: 5,000 units Vancomycin HCl (Vancomycin 1gm) 1 gm in 250 mls @ 167 mls/hr IVPB Q12H [facility] PRN Reason: Protocol Last Admin: 06/18/17 04:37 Dose: 167 mls/hr Aztreonam (Azactam 1 Gm) 100 mls @ 100 mls/hr IVPB Q8 [facility] PRN Reason: Protocol Stop: 06/21/17 17:31 Last Admin: 06/18/17 14:05 Dose: 100 mls/hr Metoprolol Tartrate (Lopressor) 25 mg PO BID [facility] Last Admin: 06/18/17 10:24 Dose: 25 mg Multivitamins/Minerals (Therapeutic-M Tab) 1 tab PO 0800 [facility] Last Admin: 06/18/17 08:22 Dose: 1 tab Pantoprazole Sodium (Protonix Ec Tab) 40 mg PO 0600,1600 [facility] Last Admin: 06/18/17 05:17 Dose: 40 mg Polyethylene Glycol (Miralax) 17 gm PO BID [facility] Last Admin: 06/18/17 10:25 Dose: 17 gm Zinc Sulfate (Zinc Sulfate 220 Mg Cap) 220 mg PO DAILY [facility] Last Admin: 06/18/17 10:25 Dose: 220 mg - Labs Labs: 06/18/17 06:40 06/18/17 06:40 PT 13.1 SECONDS (9.4-12.5) H 06/15/17 11:00 INR 1.19 (0.93-1.08) H 06/15/17 11:00 APTT 31.3 Seconds (25.1-36.5) 06/15/17 11:00 - Constitutional Appears: Non-toxic, No Acute Distress, Chronically Ill - Head Exam Head Exam: ATRAUMATIC, NORMOCEPHALIC Additional comments: marked hair loss - Eye Exam Eye Exam: EOMI, PERRL Pupil Exam: NORMAL ACCOMODATION, PERRL - ENT Exam ENT Exam: Mucous Membranes Moist, Normal External Ear Exam, TM's Normal Bilaterally Additional comments: dentures. - Respiratory Exam Respiratory Exam: Clear to Ausculation Bilateral, NORMAL BREATHING PATTERN. absent: Rales, Rhonchi, Wheezes - Cardiovascular Exam Cardiovascular Exam: REGULAR RHYTHM, RRR, +S1, +S2 - GI/Abdominal Exam GI & Abdominal Exam: Distended, Soft, Normal Bowel Sounds. absent: Tenderness Additional comments: largely distended but may be normal for the patient. - Extremities Exam Extremities Exam: Joint Swelling, Pedal Edema Additional comments: RLE swollen R ankle with ulcer b/l chronic venous changes tinea and chronic venous stasis changes. Signs of arthritis in joints of the hands. - Neurological Exam Neurological Exam: Awake, CN II-XII Intact, Oriented x3 - Psychiatric Exam Psychiatric exam: Normal Affect, Normal Mood - Skin Skin Exam: Erythema, Mottled Additional comments: As above. Assessment and Plan - Assessment and Plan (Free Text) Assessment: 67 yo female with multiple medical issues with PCN allergy diagnosed as a teenager verified by an Cyber Incident Analyst. The patient with leukocytosis. Consider use of Aztreonam for antibiotic coverage for now. Await cultures especially urine cultures. Diabetes and HTN history? Local wound care. Elevated ESR and C-reactive protein. Continue Vancomycin and Aztreonam for antibiotic coverage. UTI with E. coli sensitive to Azactam. Maintain vancomycin for cellulitis IV. For UTI 5-7 days treatment. Supportive care. Thank you for allowing me to participate in the care of the patient, we will follow with you.
[2017-06-19] MEDS: Apap-Butalbital-Caffeine 325-50-40mg Tab PO PRN ×4 (00:47→21:08)
[2017-06-19] MEDS: Vancomycin 1gm in NS 250ml 1 GM/250 ML BAG IVPB SCH ×2 (05:11→17:00)
[2017-06-19] MEDS: Pantoprazole 40 mg EC Tab PO SCH ×2 (05:16→17:10)
[2017-06-19 06:36] LABS: HEMOGLOBIN 8.7 g/dL (12.0-16.0); MEAN CELL VOLUME 73.7 fl (80.0-105.0); MEAN CORPUSCULAR HEMOGLOBIN 22.4 pg (25.0-35.0); MEAN CORPUSCULAR HGB CONC 30.4 g/dl (31.0-37.0); MEAN PLATELET VOLUME 7.7 fl (7.0-11.0); RBC 3.88 10^6/uL (3.5-6.1); RED CELL DISTRIBUTION WIDTH 18.1 % (11.5-14.5); WHITE BLOOD COUNT 11.3 10^3/ul (4.5-11.0)
[2017-06-19] MEDS: Aztreonam 1 Gm in NS 100mL 100 ML IVPB SCH ×3 (06:51→21:07)
[2017-06-19 07:00] LABS: ALB/GLOB RATIO 0.7 (1.1-1.8); ALBUMIN 2.9 g/dL (3.0-4.8); ALT/SGPT 29 U/L (7-56); AST/SGOT 35 U/L (14-36); BLOOD UREA NITROGEN 11 mg/dL (7-21); CALCIUM 7.5 mg/dL (8.4-10.5); GFR AFRICAN-AMERICAN > 60; GFR NON-AFRICAN AMERICAN > 60
[2017-06-19] MEDS ORDERED: Potassium Chloride 20 mEq ER Tab PO ONE (08:07)
--- NOTE | 2017-06-19 08:36 | CP.PCM.PN ---
<Kishor Trinh - Last Filed: 06/19/17 08:33> Subjective - Date & Time of Evaluation Date of Evaluation: 06/19/17 Time of Evaluation: 07:50 - Subjective Subjective: 67 y/o female seen at bedside this AM with attending Dr. Tariq concerning right lower extremity cellulitis with swelling, lymphedema and draining ulceration. Patient appears to be resting comfortably in her bed and denies any acute events overnight. AAO x3. Patient admits to pain on palpation to the right leg site of ulceration. Patient denies any F/C/N/V/CP/SOB at this time. Objective - Vital Signs/Intake and Output Vital Signs (last 24 hours): Temp Pulse Resp BP Pulse Ox 98.3 F 81 20 148/82 93 L 06/19/17 08:09 06/19/17 08:09 06/19/17 08:09 06/19/17 08:09 06/19/17 08:09 Intake and Output: 06/19/17 06/19/17 06:59 18:59 Intake Total 1140 Output Total 500 Balance 640 - Medications Medications: Current Medications Acetaminophen (Tylenol 325mg Tab) 650 mg PO Q4 PRN PRN Reason: Fever >100.4 F Last Admin: 06/15/17 23:29 Dose: 650 mg Acetaminophen/Butalbital/Caffeine (Fioricet) 1 tab PO Q4H PRN PRN Reason: Headache Last Admin: 06/19/17 06:51 Dose: 1 tab Albuterol/Ipratropium (Duoneb 3 Mg/0.5 Mg (3 Ml) Ud) 3 ml IH [id number] PRN PRN Reason: Shortness of Breath Ascorbic Acid (Vitamin C 500 Mg Tab) 500 mg PO BID [facility] Last Admin: 06/18/17 17:14 Dose: 500 mg Docusate Sodium (Colace) 100 mg PO DAILY [facility] Last Admin: 06/18/17 10:24 Dose: 100 mg Ferrous Sulfate (Feosol) 324 mg PO TID [facility] Last Admin: 06/18/17 17:14 Dose: 324 mg Heparin Sodium (Porcine) (Heparin) 5,000 units SC Q12 [facility] PRN Reason: Protocol Last Admin: 06/18/17 22:00 Dose: 5,000 units Vancomycin HCl (Vancomycin 1gm) 1 gm in 250 mls @ 167 mls/hr IVPB Q12H [facility] PRN Reason: Protocol Last Admin: 06/19/17 05:11 Dose: 167 mls/hr Aztreonam (Azactam 1 Gm) 100 mls @ 100 mls/hr IVPB Q8 [facility] PRN Reason: Protocol Stop: 06/21/17 17:31 Last Admin: 06/19/17 06:51 Dose: 100 mls/hr Metoprolol Tartrate (Lopressor) 25 mg PO BID [facility] Last Admin: 06/18/17 17:13 Dose: 25 mg Multivitamins/Minerals (Therapeutic-M Tab) 1 tab PO 0800 [facility] Last Admin: 06/18/17 08:22 Dose: 1 tab Pantoprazole Sodium (Protonix Ec Tab) 40 mg PO 0600,1600 [facility] Last Admin: 06/19/17 05:16 Dose: 40 mg Polyethylene Glycol (Miralax) 17 gm PO BID [facility] Last Admin: 06/18/17 17:12 Dose: 17 gm Zinc Sulfate (Zinc Sulfate 220 Mg Cap) 220 mg PO DAILY [facility] Last Admin: 06/18/17 10:25 Dose: 220 mg - Labs Labs: 06/19/17 06:00 06/19/17 06:00 PT 13.1 SECONDS (9.4-12.5) H 06/15/17 11:00 INR 1.19 (0.93-1.08) H 06/15/17 11:00 APTT 31.3 Seconds (25.1-36.5) 06/15/17 11:00 - Constitutional Appears: Well, Non-toxic, No Acute Distress - Extremities Exam Additional comments: Right lower extremity exam: Derm: Cellulitis to right leg appears resolved with no visible erythema. Approx 8cm x 6cm superficial draining ulceration with fibrotic base. Mild malodor present. No purulent discharge noted. No tunneling or undermining noted. no PTB Vasc: DP/PT pulses 2/4 B/L. +4 pitting edema to RLE distal to tibial tuberosity , +3 to LLE. Temperature gradient warm to warm on R, warm to cool on L. CFT < 3 sec to all digits Neuro: Protective sensation grossly intact Ortho: Significant tenderness on palpation of right lower extremity, increased on elevation of leg off the bed - Neurological Exam Neurological Exam: Alert, Awake, Oriented x3 - Psychiatric Exam Psychiatric exam: Normal Affect, Normal Mood - Skin Skin Exam: Normal Color, Warm Assessment and Plan - Assessment and Plan (Free Text) Assessment: 67 y/o female with bilateral lymphedema and RLE cellulitis and swelling with draining ulceration to right medial ankle Plan: Patient seen and evaluated with attending Dr. Tariq Labs and vitals reviewed- afebrile, WBC 11.3 today Cultures (Final): Proteus species and Beta hemolytic GBS IV abx as per ID: Vancomycin and Aztreonam Extremity ultrasound negative for DVT to RLE Medial ankle ulceration cleansed with saline and 4x4 gauze Dressed wound with xeroform, maxsorb, ABD and kerlix Multipodus boots to be worn at all times when in bed Podiatry will continue to follow while in house <Jarrett Tariq - Last Filed: 06/23/17 11:12> Objective - Vital Signs/Intake and Output Vital Signs (last 24 hours): Temp Pulse Resp BP Pulse Ox 98.3 F 87 20 147/71 95 06/23/17 07:30 06/23/17 10:01 06/23/17 07:30 06/23/17 10:01 06/23/17 07:30 Intake and Output: 06/23/17 06/23/17 06:59 18:59 Intake Total 120 Balance 120 - Medications Medications: Current Medications Acetaminophen (Tylenol 325mg Tab) 650 mg PO Q4 PRN PRN Reason: Fever >100.4 F Last Admin: 06/15/17 23:29 Dose: 650 mg Acetaminophen/Butalbital/Caffeine (Fioricet) 1 tab PO Q4H PRN PRN Reason: Headache Last Admin: 06/22/17 23:03 Dose: 1 tab Albuterol/Ipratropium (Duoneb 3 Mg/0.5 Mg (3 Ml) Ud) 3 ml IH [id number] PRN PRN Reason: Shortness of Breath Ascorbic Acid (Vitamin C 500 Mg Tab) 500 mg PO BID [facility] Last Admin: 06/23/17 09:58 Dose: 500 mg Docusate Sodium (Colace) 100 mg PO DAILY [facility] Last Admin: 06/23/17 09:59 Dose: 100 mg Ferrous Sulfate (Feosol) 324 mg PO TID [facility] Last Admin: 06/23/17 10:01 Dose: 324 mg Heparin Sodium (Porcine) (Heparin) 5,000 units SC Q12 [facility] PRN Reason: Protocol Last Admin: 06/23/17 09:56 Dose: 5,000 units Vancomycin HCl (Vancomycin 1gm) 1 gm in 250 mls @ 167 mls/hr IVPB Q12H [facility] PRN Reason: Protocol Last Admin: 06/23/17 06:04 Dose: 167 mls/hr Metoprolol Tartrate (Lopressor) 25 mg PO BID [facility] Last Admin: 06/23/17 10:01 Dose: 25 mg Multivitamins/Minerals (Therapeutic-M Tab) 1 tab PO 0800 [facility] Last Admin: 06/23/17 09:14 Dose: 1 tab Nystatin (Nystop Topical Powder) 1 gm TOP DAILY [facility] Last Admin: 06/23/17 10:01 Dose: 1 gm Pantoprazole Sodium (Protonix Ec Tab) 40 mg PO DAILY [facility] Last Admin: 06/23/17 09:59 Dose: 40 mg Polyethylene Glycol (Miralax) 17 gm PO BID [facility] Last Admin: 06/23/17 09:56 Dose: 17 gm Zinc Sulfate (Zinc Sulfate 220 Mg Cap) 220 mg PO DAILY [facility] Last Admin: 06/23/17 10:00 Dose: 220 mg - Labs Labs: 06/23/17 07:30 06/23/17 07:30 PT 13.1 SECONDS (9.4-12.5) H 06/15/17 11:00 INR 1.19 (0.93-1.08) H 06/15/17 11:00 APTT 31.3 Seconds (25.1-36.5) 06/15/17 11:00 Attending/Attestation - Attestation I have personally seen and examined this patient.: Yes I have fully participated in the care of the patient.: Yes I have reviewed all pertinent clinical information, including history, physical exam and plan: Yes
[2017-06-19] MEDS: Multivitamin With Minerals Tab PO SCH (08:41)
[2017-06-19] MEDS ORDERED: Magnesium Citrate Oral SOL (300 ml) PO ONE (09:14)
[2017-06-19] MEDS: POLYETHYLENE GLYCOL 3350 17 GM/Dose PACKET PO SCH ×2 (10:27→17:09)
--- NOTE | 2017-06-19 11:33 | CP.PCM.PN ---
<Tremaine Trivedi - Last Filed: 06/19/17 16:03> Subjective - Date & Time of Evaluation Date of Evaluation: 06/19/17 Time of Evaluation: 08:00 - Subjective Subjective: Patient was seen sitting up at bedside eating breakfast. Patient states she did have some slight episodes of shortness of breath overnight. Also admitted to headache which has been relieved with pain medication as well as a cough which recently started overnight. Patient still had not had any bowel movements since being admitted. Patient denies chest pain, nausea, vomiting, diarrhea, dizziness. Objective - Vital Signs/Intake and Output Vital Signs (last 24 hours): Temp Pulse Resp BP Pulse Ox 98.3 F 81 20 148/82 93 L 06/19/17 08:09 06/19/17 10:28 06/19/17 08:09 06/19/17 10:28 06/19/17 08:09 Intake and Output: 06/19/17 06/19/17 06:59 18:59 Intake Total 1140 Output Total 500 Balance 640 - Medications Medications: Current Medications Acetaminophen (Tylenol 325mg Tab) 650 mg PO Q4 PRN PRN Reason: Fever >100.4 F Last Admin: 06/15/17 23:29 Dose: 650 mg Acetaminophen/Butalbital/Caffeine (Fioricet) 1 tab PO Q4H PRN PRN Reason: Headache Last Admin: 06/19/17 06:51 Dose: 1 tab Albuterol/Ipratropium (Duoneb 3 Mg/0.5 Mg (3 Ml) Ud) 3 ml IH [id number] PRN PRN Reason: Shortness of Breath Ascorbic Acid (Vitamin C 500 Mg Tab) 500 mg PO BID [facility] Last Admin: 06/19/17 10:27 Dose: 500 mg Docusate Sodium (Colace) 100 mg PO DAILY [facility] Last Admin: 06/19/17 10:27 Dose: 100 mg Ferrous Sulfate (Feosol) 324 mg PO TID [facility] Last Admin: 06/19/17 10:28 Dose: 324 mg Heparin Sodium (Porcine) (Heparin) 5,000 units SC Q12 [facility] PRN Reason: Protocol Last Admin: 06/19/17 10:27 Dose: 5,000 units Vancomycin HCl (Vancomycin 1gm) 1 gm in 250 mls @ 167 mls/hr IVPB Q12H [facility] PRN Reason: Protocol Last Admin: 06/19/17 05:11 Dose: 167 mls/hr Aztreonam (Azactam 1 Gm) 100 mls @ 100 mls/hr IVPB Q8 [facility] PRN Reason: Protocol Stop: 06/21/17 17:31 Last Admin: 06/19/17 06:51 Dose: 100 mls/hr Metoprolol Tartrate (Lopressor) 25 mg PO BID [facility] Last Admin: 06/19/17 10:28 Dose: 25 mg Multivitamins/Minerals (Therapeutic-M Tab) 1 tab PO 0800 [facility] Last Admin: 06/19/17 08:41 Dose: 1 tab Pantoprazole Sodium (Protonix Ec Tab) 40 mg PO 0600,1600 [facility] Last Admin: 06/19/17 05:16 Dose: 40 mg Polyethylene Glycol (Miralax) 17 gm PO BID [facility] Last Admin: 06/19/17 10:27 Dose: 17 gm Zinc Sulfate (Zinc Sulfate 220 Mg Cap) 220 mg PO DAILY [facility] Last Admin: 06/19/17 10:27 Dose: 220 mg - Labs Labs: 06/19/17 06:00 06/19/17 06:00 PT 13.1 SECONDS (9.4-12.5) H 06/15/17 11:00 INR 1.19 (0.93-1.08) H 06/15/17 11:00 APTT 31.3 Seconds (25.1-36.5) 06/15/17 11:00 - Constitutional Appears: Non-toxic, No Acute Distress - Head Exam Head Exam: ATRAUMATIC, NORMAL INSPECTION, NORMOCEPHALIC - Eye Exam Eye Exam: EOMI, Normal appearance - ENT Exam ENT Exam: Mucous Membranes Moist - Respiratory Exam Respiratory Exam: Rhonchi, Wheezes, NORMAL BREATHING PATTERN - Cardiovascular Exam Cardiovascular Exam: REGULAR RHYTHM, +S1, +S2 - GI/Abdominal Exam GI & Abdominal Exam: Soft, Normal Bowel Sounds - Back Exam Back Exam: NORMAL INSPECTION - Neurological Exam Neurological Exam: Alert, Awake, Oriented x3 - Psychiatric Exam Psychiatric exam: Normal Affect, Normal Mood - Skin Skin Exam: Normal Color, Warm Additional comments: Left foot: scaly, dry, maharaj scale pattern discoloration Assessment and Plan - Assessment and Plan (Free Text) Assessment: 67yo F PMH asthma, arthritis, and vitamin C deficiency who presents with RLE ulcer/cellulitis and chronic venous changes b/l, found to be septic in ED, post code sepsis. Plan: 1. RLE cellulitis/ulcer s/p CODE SEPSIS secondary to Proteus Mirabilis and beta hemolytic group b strep - cont vancomycin day 5 and Azactam day 3 - afebrile - WBC continues to downtrend - motrin prn for leg pain - tylenol prn fevers - MV/Vitamin C and Zinc - ID consulted, recs appreciated - multipodus boot to be worn at all times as per podiatry - Deconditioning best done by TED as per PT evaluation 2. Headache - fioricet PRN 3. Shortness of breath - duoneb STAT and Q4 PRN - O2Sat 93% on room air - cont O2 NC 4. Cough - Robitussin DM 5. Constipation - Colace and Miralax ESCOBAR; still no BMs on this regimen - Mg citrate added: will see if patient makes bowel movements if not; will try soap latonia enema 6. UTI - Continue with Azactam currently day 3 7. Anemia likely 2/2 iron deficiency anemia -Continue Feosol -trend H/H 8. arthritis - motrin prn pain 9. vitamin C deficiency - MV and Vitamin C ordered PTX/Heparin HHD Patient was seen, examined and discussed with attending, Dr. Israel Trivedi PGY1 <Roger Wood - Last Filed: 06/19/17 16:55> Objective - Vital Signs/Intake and Output Vital Signs (last 24 hours): Temp Pulse Resp BP Pulse Ox 98.4 F 83 20 134/71 97 06/19/17 16:40 06/19/17 16:40 06/19/17 16:40 06/19/17 16:40 06/19/17 16:40 Intake and Output: 06/19/17 06/19/17 06:59 18:59 Intake Total 1140 Output Total 500 Balance 640 - Medications Medications: Current Medications Acetaminophen (Tylenol 325mg Tab) 650 mg PO Q4 PRN PRN Reason: Fever >100.4 F Last Admin: 06/15/17 23:29 Dose: 650 mg Acetaminophen/Butalbital/Caffeine (Fioricet) 1 tab PO Q4H PRN PRN Reason: Headache Last Admin: 06/19/17 16:21 Dose: 1 tab Albuterol/Ipratropium (Duoneb 3 Mg/0.5 Mg (3 Ml) Ud) 3 ml IH [id number] PRN PRN Reason: Shortness of Breath Ascorbic Acid (Vitamin C 500 Mg Tab) 500 mg PO BID [facility] Last Admin: 06/19/17 10:27 Dose: 500 mg Docusate Sodium (Colace) 100 mg PO DAILY [facility] Last Admin: 06/19/17 10:27 Dose: 100 mg Ferrous Sulfate (Feosol) 324 mg PO TID [facility] Last Admin: 06/19/17 14:53 Dose: 324 mg Heparin Sodium (Porcine) (Heparin) 5,000 units SC Q12 [facility] PRN Reason: Protocol Last Admin: 06/19/17 10:27 Dose: 5,000 units Vancomycin HCl (Vancomycin 1gm) 1 gm in 250 mls @ 167 mls/hr IVPB Q12H [facility] PRN Reason: Protocol Last Admin: 06/19/17 05:11 Dose: 167 mls/hr Aztreonam (Azactam 1 Gm) 100 mls @ 100 mls/hr IVPB Q8 [facility] PRN Reason: Protocol Stop: 06/21/17 17:31 Last Admin: 06/19/17 14:53 Dose: 100 mls/hr Metoprolol Tartrate (Lopressor) 25 mg PO BID [facility] Last Admin: 06/19/17 10:28 Dose: 25 mg Multivitamins/Minerals (Therapeutic-M Tab) 1 tab PO 0800 [facility] Last Admin: 06/19/17 08:41 Dose: 1 tab Nystatin (Nystop Topical Powder) 1 gm TOP DAILY [facility] Pantoprazole Sodium (Protonix Ec Tab) 40 mg PO 0600,1600 [facility] Last Admin: 06/19/17 05:16 Dose: 40 mg Polyethylene Glycol (Miralax) 17 gm PO BID [facility] Last Admin: 06/19/17 10:27 Dose: 17 gm Zinc Sulfate (Zinc Sulfate 220 Mg Cap) 220 mg PO DAILY [facility] Last Admin: 06/19/17 10:27 Dose: 220 mg - Labs Labs: 06/19/17 06:00 06/19/17 06:00 PT 13.1 SECONDS (9.4-12.5) H 06/15/17 11:00 INR 1.19 (0.93-1.08) H 06/15/17 11:00 APTT 31.3 Seconds (25.1-36.5) 06/15/17 11:00 Attending/Attestation - Attestation I have personally seen and examined this patient.: Yes I have fully participated in the care of the patient.: Yes I have reviewed all pertinent clinical information, including history, physical exam and plan: Yes Notes (Text): 06/19/17 16:53 Attending note; Patient seen and examined with resident. Patient is a 67 year old female with past medical history of asthma, arthritis, obesity is admitted for right lower leg cellulitis; started on IV vancomycin and azactam. Continue local wound care. Podiatry evaluation appreciated. Anemia; iron deficiency. on IV iron. Constipation; continue Colace. Max citrate one dose ordered. Denies any nausea, vomiting. Tolerating diet well. Gait instability; PT evaluation appreciated. Subacute rehabilitation recommended. case discussed with health care social worker and family service caseworker in detail for discharge planning. Patient had telephone interview with Social Security office. Upon discharge the patient will be referred to [facility] [place] [facility].
--- NOTE | 2017-06-19 23:58 | CP.PCM.PN ---
Subjective - Date & Time of Evaluation Date of Evaluation: 06/19/17 Time of Evaluation: 16:15 - Subjective Subjective: Infectious Disease Follow Up: June 19, 2017 67 yo female presenting with 3 weeks of RLE ulceration, swelling and leaking from the wound as well as multiple falls in the past 3 weeks. The patient has an extensive medical history of asthma, arthritis, vitamin C deficiency, and possible thyroid disease. Had headaches and episodes of SOB overnight. draining RLE ulceration. Patient still hasn't had a bowel movement during this hospitalization until tonight. Objective - Vital Signs/Intake and Output Vital Signs (last 24 hours): Temp Pulse Resp BP Pulse Ox 98.4 F 83 20 134/71 97 06/19/17 16:40 06/19/17 17:09 06/19/17 16:40 06/19/17 17:09 06/19/17 16:40 Intake and Output: 06/19/17 06/20/17 18:59 06:59 Intake Total 480 Balance 480 - Medications Medications: Current Medications Acetaminophen (Tylenol 325mg Tab) 650 mg PO Q4 PRN PRN Reason: Fever >100.4 F Last Admin: 06/15/17 23:29 Dose: 650 mg Acetaminophen/Butalbital/Caffeine (Fioricet) 1 tab PO Q4H PRN PRN Reason: Headache Last Admin: 06/19/17 21:08 Dose: 1 tab Albuterol/Ipratropium (Duoneb 3 Mg/0.5 Mg (3 Ml) Ud) 3 ml IH [id number] PRN PRN Reason: Shortness of Breath Ascorbic Acid (Vitamin C 500 Mg Tab) 500 mg PO BID [facility] Last Admin: 06/19/17 17:09 Dose: 500 mg Docusate Sodium (Colace) 100 mg PO DAILY [facility] Last Admin: 06/19/17 10:27 Dose: 100 mg Ferrous Sulfate (Feosol) 324 mg PO TID [facility] Last Admin: 06/19/17 17:09 Dose: 324 mg Heparin Sodium (Porcine) (Heparin) 5,000 units SC Q12 [facility] PRN Reason: Protocol Last Admin: 06/19/17 21:07 Dose: 5,000 units Vancomycin HCl (Vancomycin 1gm) 1 gm in 250 mls @ 167 mls/hr IVPB Q12H [facility] PRN Reason: Protocol Last Admin: 06/19/17 17:00 Dose: 167 mls/hr Aztreonam (Azactam 1 Gm) 100 mls @ 100 mls/hr IVPB Q8 [facility] PRN Reason: Protocol Stop: 06/21/17 17:31 Last Admin: 06/19/17 21:07 Dose: 100 mls/hr Metoprolol Tartrate (Lopressor) 25 mg PO BID [facility] Last Admin: 06/19/17 17:09 Dose: 25 mg Multivitamins/Minerals (Therapeutic-M Tab) 1 tab PO 0800 [facility] Last Admin: 06/19/17 08:41 Dose: 1 tab Nystatin (Nystop Topical Powder) 1 gm TOP DAILY [facility] Pantoprazole Sodium (Protonix Ec Tab) 40 mg PO 0600,1600 [facility] Last Admin: 06/19/17 17:10 Dose: 40 mg Polyethylene Glycol (Miralax) 17 gm PO BID [facility] Last Admin: 06/19/17 17:09 Dose: 17 gm Zinc Sulfate (Zinc Sulfate 220 Mg Cap) 220 mg PO DAILY [facility] Last Admin: 06/19/17 10:27 Dose: 220 mg - Labs Labs: 06/19/17 06:00 06/19/17 06:00 PT 13.1 SECONDS (9.4-12.5) H 06/15/17 11:00 INR 1.19 (0.93-1.08) H 06/15/17 11:00 APTT 31.3 Seconds (25.1-36.5) 06/15/17 11:00 - Constitutional Appears: Non-toxic, No Acute Distress, Chronically Ill - Head Exam Head Exam: ATRAUMATIC, NORMOCEPHALIC Additional comments: marked hair loss. - Eye Exam Eye Exam: EOMI, PERRL Pupil Exam: NORMAL ACCOMODATION, PERRL - ENT Exam ENT Exam: Mucous Membranes Moist, Normal External Ear Exam, TM's Normal Bilaterally Additional comments: dentures - Respiratory Exam Respiratory Exam: Clear to Ausculation Bilateral, NORMAL BREATHING PATTERN. absent: Rales, Rhonchi, Wheezes - Cardiovascular Exam Cardiovascular Exam: REGULAR RHYTHM, RRR, +S1, +S2 - GI/Abdominal Exam GI & Abdominal Exam: Distended, Soft, Normal Bowel Sounds. absent: Tenderness Additional comments: largely distended but may be normal for the patient. - Extremities Exam Extremities Exam: Joint Swelling, Pedal Edema Additional comments: RLE swollen R ankle with ulcer b/l chronic venous changes tinea and chronic venous stasis changes. Signs of arthritis in joints of the hands. - Neurological Exam Neurological Exam: Alert, Awake, CN II-XII Intact, Oriented x3 - Psychiatric Exam Psychiatric exam: Normal Affect, Normal Mood - Skin Skin Exam: Erythema, Mottled Additional comments: As above Assessment and Plan - Assessment and Plan (Free Text) Assessment: 67 yo female with multiple medical issues with PCN allergy diagnosed as a teenager verified by an Clinical Writer. The patient with leukocytosis. Consider use of Aztreonam for antibiotic coverage for now. Await cultures especially urine cultures. Diabetes and HTN history? Local wound care. Elevated ESR and C-reactive protein. Continue Vancomycin and Aztreonam for antibiotic coverage. UTI with E. coli sensitive to Azactam. Maintain vancomycin for cellulitis IV. For UTI 5-7 days treatment. Nearing completion. Supportive care. Thank you for allowing me to participate in the care of the patient, we will follow with you.
[2017-06-20] MEDS: Vancomycin 1gm in NS 250ml 1 GM/250 ML BAG IVPB SCH ×2 (05:15→15:48)
[2017-06-20 05:55] LABS: HEMOGLOBIN 8.7 g/dL (12.0-16.0); MEAN CELL VOLUME 74.9 fl (80.0-105.0); MEAN CORPUSCULAR HEMOGLOBIN 22.3 pg (25.0-35.0); MEAN CORPUSCULAR HGB CONC 29.7 g/dl (31.0-37.0); MEAN PLATELET VOLUME 7.8 fl (7.0-11.0); RBC 3.91 10^6/uL (3.5-6.1); RED CELL DISTRIBUTION WIDTH 18.7 % (11.5-14.5)
[2017-06-20 06:09] LABS: ALBUMIN 2.8 g/dL (3.0-4.8); ALT/SGPT 25 U/L (7-56); AST/SGOT 29 U/L (14-36); BLOOD UREA NITROGEN 13 mg/dL (7-21); CALCIUM 7.5 mg/dL (8.4-10.5); GFR AFRICAN-AMERICAN > 60; GFR NON-AFRICAN AMERICAN > 60
[2017-06-20 06:10] LABS: ALB/GLOB RATIO 0.7 (1.1-1.8)
[2017-06-20] MEDS: Aztreonam 1 Gm in NS 100mL 100 ML IVPB SCH ×3 (06:41→22:01)
[2017-06-20] MEDS: Pantoprazole 40 mg EC Tab PO SCH ×2 (06:41→15:48)
[2017-06-20] MEDS: Multivitamin With Minerals Tab PO SCH (08:28)
--- NOTE | 2017-06-20 09:28 | CP.PCM.PN ---
<Amadeo Reyna - Last Filed: 06/20/17 09:24> Subjective - Date & Time of Evaluation Date of Evaluation: 06/20/17 Time of Evaluation: 07:00 - Subjective Subjective: Dr. Wood Service Patient was seen and examined at bedside. Pt had just finished eating breakfast , and tolerated intake well. Pt has mild complaints of headache , however feels well otherwise. No acute or adverse events overnight as per nursing staff. Pt lower extremities in offloading boots and dressings in place. Pt had bm as per nursing staff.Patient denies fever, chills, sob, chest pain, abdominal pain, nausea, vomiting, diarrhea, constipation, dizziness, or urinary symptoms. Objective - Vital Signs/Intake and Output Vital Signs (last 24 hours): Temp Pulse Resp BP Pulse Ox 98.3 F 83 20 143/69 95 06/20/17 07:40 06/20/17 07:40 06/20/17 07:40 06/20/17 07:40 06/20/17 07:40 Intake and Output: 06/20/17 06/20/17 06:59 18:59 Intake Total 720 Balance 720 - Medications Medications: Current Medications Acetaminophen (Tylenol 325mg Tab) 650 mg PO Q4 PRN PRN Reason: Fever >100.4 F Last Admin: 06/15/17 23:29 Dose: 650 mg Acetaminophen/Butalbital/Caffeine (Fioricet) 1 tab PO Q4H PRN PRN Reason: Headache Last Admin: 06/19/17 21:08 Dose: 1 tab Albuterol/Ipratropium (Duoneb 3 Mg/0.5 Mg (3 Ml) Ud) 3 ml IH [id number] PRN PRN Reason: Shortness of Breath Ascorbic Acid (Vitamin C 500 Mg Tab) 500 mg PO BID [facility] Last Admin: 06/19/17 17:09 Dose: 500 mg Docusate Sodium (Colace) 100 mg PO DAILY [facility] Last Admin: 06/19/17 10:27 Dose: 100 mg Ferrous Sulfate (Feosol) 324 mg PO TID [facility] Last Admin: 06/19/17 17:09 Dose: 324 mg Heparin Sodium (Porcine) (Heparin) 5,000 units SC Q12 [facility] PRN Reason: Protocol Last Admin: 06/19/17 21:07 Dose: 5,000 units Vancomycin HCl (Vancomycin 1gm) 1 gm in 250 mls @ 167 mls/hr IVPB Q12H [facility] PRN Reason: Protocol Last Admin: 06/20/17 05:15 Dose: 167 mls/hr Aztreonam (Azactam 1 Gm) 100 mls @ 100 mls/hr IVPB Q8 [facility] PRN Reason: Protocol Stop: 06/21/17 17:31 Last Admin: 06/20/17 06:41 Dose: 100 mls/hr Iron Sucrose 200 mg/ Sodium (Chloride) 110 mls @ 110 mls/hr IVPB ONCE ONE Stop: 06/20/17 09:41 Metoprolol Tartrate (Lopressor) 25 mg PO BID [facility] Last Admin: 06/19/17 17:09 Dose: 25 mg Multivitamins/Minerals (Therapeutic-M Tab) 1 tab PO 0800 [facility] Last Admin: 06/20/17 08:28 Dose: 1 tab Nystatin (Nystop Topical Powder) 1 gm TOP DAILY [facility] Pantoprazole Sodium (Protonix Ec Tab) 40 mg PO 0600,1600 [facility] Last Admin: 06/20/17 06:41 Dose: 40 mg Polyethylene Glycol (Miralax) 17 gm PO BID [facility] Last Admin: 06/19/17 17:09 Dose: 17 gm Zinc Sulfate (Zinc Sulfate 220 Mg Cap) 220 mg PO DAILY [facility] Last Admin: 06/19/17 10:27 Dose: 220 mg - Labs Labs: 06/20/17 05:35 06/20/17 05:35 PT 13.1 SECONDS (9.4-12.5) H 06/15/17 11:00 INR 1.19 (0.93-1.08) H 06/15/17 11:00 APTT 31.3 Seconds (25.1-36.5) 06/15/17 11:00 - Constitutional Appears: No Acute Distress - Head Exam Head Exam: ATRAUMATIC, NORMAL INSPECTION, NORMOCEPHALIC - Eye Exam Eye Exam: EOMI, Normal appearance, PERRL Pupil Exam: NORMAL ACCOMODATION, PERRL - ENT Exam ENT Exam: Mucous Membranes Moist, Normal Exam - Neck Exam Neck Exam: Full ROM, Normal Inspection. absent: Lymphadenopathy - Respiratory Exam Respiratory Exam: Clear to Ausculation Bilateral, Rhonchi (minimal), NORMAL BREATHING PATTERN - Cardiovascular Exam Cardiovascular Exam: REGULAR RHYTHM, +S1, +S2. absent: Murmur - GI/Abdominal Exam GI & Abdominal Exam: Soft, Normal Bowel Sounds. absent: Tenderness - Extremities Exam Additional comments: dressings in place - Neurological Exam Neurological Exam: Alert, Awake, CN II-XII Intact, Normal Gait, Oriented x3 - Psychiatric Exam Psychiatric exam: Normal Affect, Normal Mood - Skin Skin Exam: Dry, Intact, Normal Color, Warm Assessment and Plan - Assessment and Plan (Free Text) Assessment: 67 F with a PMHx of asthma, arthritis, and vitamin C deficiency who presents with RLE ulcer/cellulitis and chronic venous changes b/l, found to be septic in ED, post code sepsis. 1. RLE cellulitis/ulcer s/p CODE SEPSIS secondary to Proteus Mirabilis and beta hemolytic group b strep - cont vancomycin day 5 and Azactam day 5 - afebrile - WBC continues to downtrend - tylenol prn fevers - MV/Vitamin C and Zinc - ID consulted, continue with current management - multipodus boot to be worn at all times as per podiatry - Deconditioning best done by TED as per PT evaluation 2. Headache - fioricet PRN - avoid motrin at this time 3. Shortness of breath - duoneb PRN - O2 Sat >90% on room air - cont O2 NC PRN 4. Cough - Robitussin DM 5. Constipation - BM yest - Colace and Miralax ESCOBAR; still no BMs on this regimen - Mg citrate added: will see if patient makes bowel movements if not; will try soap latonia enema 6. UTI - Continue with Azactam currently day 5 7. Anemia likely 2/2 iron deficiency anemia -Continue Feosol -trend H/H 8. arthritis - motrin prn pain 9. vitamin C deficiency - MV and Vitamin C ordered GI/DVT ppx: heparin/protonix Patient seen, examined and discussed with attending <Roger Wood - Last Filed: 06/20/17 12:17> Objective - Vital Signs/Intake and Output Vital Signs (last 24 hours): Temp Pulse Resp BP Pulse Ox 98.3 F 83 20 143/69 95 06/20/17 07:40 06/20/17 09:44 06/20/17 07:40 06/20/17 09:44 06/20/17 07:40 Intake and Output: 06/20/17 06/20/17 06:59 18:59 Intake Total 720 Balance 720 - Medications Medications: Current Medications Acetaminophen (Tylenol 325mg Tab) 650 mg PO Q4 PRN PRN Reason: Fever >100.4 F Last Admin: 06/15/17 23:29 Dose: 650 mg Acetaminophen/Butalbital/Caffeine (Fioricet) 1 tab PO Q4H PRN PRN Reason: Headache Last Admin: 06/20/17 11:58 Dose: 1 tab Albuterol/Ipratropium (Duoneb 3 Mg/0.5 Mg (3 Ml) Ud) 3 ml IH [id number] PRN PRN Reason: Shortness of Breath Ascorbic Acid (Vitamin C 500 Mg Tab) 500 mg PO BID [facility] Last Admin: 06/20/17 09:53 Dose: 500 mg Docusate Sodium (Colace) 100 mg PO DAILY [facility] Last Admin: 06/20/17 09:51 Dose: Not Given Ferrous Sulfate (Feosol) 324 mg PO TID [facility] Last Admin: 06/20/17 09:44 Dose: 324 mg Heparin Sodium (Porcine) (Heparin) 5,000 units SC Q12 [facility] PRN Reason: Protocol Last Admin: 06/20/17 09:46 Dose: 5,000 units Vancomycin HCl (Vancomycin 1gm) 1 gm in 250 mls @ 167 mls/hr IVPB Q12H [facility] PRN Reason: Protocol Last Admin: 06/20/17 05:15 Dose: 167 mls/hr Aztreonam (Azactam 1 Gm) 100 mls @ 100 mls/hr IVPB Q8 [facility] PRN Reason: Protocol Stop: 06/21/17 17:31 Last Admin: 06/20/17 06:41 Dose: 100 mls/hr Metoprolol Tartrate (Lopressor) 25 mg PO BID [facility] Last Admin: 06/20/17 09:44 Dose: 25 mg Multivitamins/Minerals (Therapeutic-M Tab) 1 tab PO 0800 [facility] Last Admin: 06/20/17 08:28 Dose: 1 tab Nystatin (Nystop Topical Powder) 1 gm TOP DAILY [facility] Last Admin: 06/20/17 09:53 Dose: 1 gm Pantoprazole Sodium (Protonix Ec Tab) 40 mg PO 0600,1600 [facility] Last Admin: 06/20/17 06:41 Dose: 40 mg Polyethylene Glycol (Miralax) 17 gm PO BID [facility] Last Admin: 06/20/17 09:49 Dose: Not Given Zinc Sulfate (Zinc Sulfate 220 Mg Cap) 220 mg PO DAILY [facility] Last Admin: 06/20/17 09:45 Dose: 220 mg - Labs Labs: 06/20/17 05:35 06/20/17 05:35 PT 13.1 SECONDS (9.4-12.5) H 06/15/17 11:00 INR 1.19 (0.93-1.08) H 06/15/17 11:00 APTT 31.3 Seconds (25.1-36.5) 06/15/17 11:00 Attending/Attestation - Attestation I have personally seen and examined this patient.: Yes I have fully participated in the care of the patient.: Yes I have reviewed all pertinent clinical information, including history, physical exam and plan: Yes Notes (Text): 06/20/17 12:15 Attending note; Patient seen and examined with resident. Patient is a 67 year old female with past medical history of asthma, arthritis, obesity is admitted for right lower leg cellulitis; started on IV vancomycin and azactam. Continue local wound care. Podiatry evaluation appreciated. Anemia; iron deficiency. on IV iron. Constipation; resolved. Tolerating diet well. Gait instability; PT evaluation appreciated. Subacute rehabilitation recommended. case discussed with gas systems worker and porter sample case in detail for discharge planning. Upon discharge the patient will be referred to [facility] [place] [facility].
[2017-06-20] MEDS: POLYETHYLENE GLYCOL 3350 17 GM/Dose PACKET PO SCH ×3 (09:47→17:07)
[2017-06-20] MEDS: Nystatin 100,000 Units/gm Topical Pow(15 gm) TOP SCH (09:53)
--- NOTE | 2017-06-20 11:01 | CP.PCM.PN ---
<Kishor Trinh - Last Filed: 06/20/17 10:59> Subjective - Date & Time of Evaluation Date of Evaluation: 06/20/17 Time of Evaluation: 08:00 - Subjective Subjective: 67 y/o female seen at bedside this AM concerning right lower extremity cellulitis with swelling, lymphedema and draining ulceration. Patient appears to be resting comfortably in her bed and denies any acute events overnight. AAO x3. Patient admits to pain on palpation to the right leg site of ulceration. CEllulitis appears resolved. Patient denies any F/C/N/V/CP/SOB at this time. Objective - Vital Signs/Intake and Output Vital Signs (last 24 hours): Temp Pulse Resp BP Pulse Ox 98.3 F 83 20 143/69 95 06/20/17 07:40 06/20/17 09:44 06/20/17 07:40 06/20/17 09:44 06/20/17 07:40 Intake and Output: 06/20/17 06/20/17 06:59 18:59 Intake Total 720 Balance 720 - Medications Medications: Current Medications Acetaminophen (Tylenol 325mg Tab) 650 mg PO Q4 PRN PRN Reason: Fever >100.4 F Last Admin: 06/15/17 23:29 Dose: 650 mg Acetaminophen/Butalbital/Caffeine (Fioricet) 1 tab PO Q4H PRN PRN Reason: Headache Last Admin: 06/19/17 21:08 Dose: 1 tab Albuterol/Ipratropium (Duoneb 3 Mg/0.5 Mg (3 Ml) Ud) 3 ml IH [id number] PRN PRN Reason: Shortness of Breath Ascorbic Acid (Vitamin C 500 Mg Tab) 500 mg PO BID [facility] Last Admin: 06/20/17 09:53 Dose: 500 mg Docusate Sodium (Colace) 100 mg PO DAILY [facility] Last Admin: 06/20/17 09:51 Dose: Not Given Ferrous Sulfate (Feosol) 324 mg PO TID [facility] Last Admin: 06/20/17 09:44 Dose: 324 mg Heparin Sodium (Porcine) (Heparin) 5,000 units SC Q12 [facility] PRN Reason: Protocol Last Admin: 06/20/17 09:46 Dose: 5,000 units Vancomycin HCl (Vancomycin 1gm) 1 gm in 250 mls @ 167 mls/hr IVPB Q12H [facility] PRN Reason: Protocol Last Admin: 06/20/17 05:15 Dose: 167 mls/hr Aztreonam (Azactam 1 Gm) 100 mls @ 100 mls/hr IVPB Q8 [facility] PRN Reason: Protocol Stop: 06/21/17 17:31 Last Admin: 06/20/17 06:41 Dose: 100 mls/hr Metoprolol Tartrate (Lopressor) 25 mg PO BID [facility] Last Admin: 06/20/17 09:44 Dose: 25 mg Multivitamins/Minerals (Therapeutic-M Tab) 1 tab PO 0800 [facility] Last Admin: 06/20/17 08:28 Dose: 1 tab Nystatin (Nystop Topical Powder) 1 gm TOP DAILY [facility] Last Admin: 06/20/17 09:53 Dose: 1 gm Pantoprazole Sodium (Protonix Ec Tab) 40 mg PO 0600,1600 [facility] Last Admin: 06/20/17 06:41 Dose: 40 mg Polyethylene Glycol (Miralax) 17 gm PO BID [facility] Last Admin: 06/20/17 09:49 Dose: Not Given Zinc Sulfate (Zinc Sulfate 220 Mg Cap) 220 mg PO DAILY [facility] Last Admin: 06/20/17 09:45 Dose: 220 mg - Labs Labs: 06/20/17 05:35 06/20/17 05:35 PT 13.1 SECONDS (9.4-12.5) H 06/15/17 11:00 INR 1.19 (0.93-1.08) H 06/15/17 11:00 APTT 31.3 Seconds (25.1-36.5) 06/15/17 11:00 - Constitutional Appears: Well, Non-toxic, No Acute Distress - Head Exam Head Exam: ATRAUMATIC - Extremities Exam Additional comments: Right lower extremity exam: Derm: Cellulitis to right leg appears resolved with no visible erythema. Approx 8cm x 6cm superficial draining ulceration with fibrotic base. Mild malodor present. No purulent discharge noted. No tunneling or undermining noted. no PTB Vasc: DP/PT pulses 2/4 B/L. +4 pitting edema to RLE distal to tibial tuberosity , +3 to LLE. Temperature gradient warm to warm on R, warm to cool on L. CFT < 3 sec to all digits Neuro: Protective sensation grossly intact Ortho: Significant tenderness on palpation of right lower extremity, increased on elevation of leg off the bed - Neurological Exam Neurological Exam: Alert, Awake, Oriented x3 - Psychiatric Exam Psychiatric exam: Normal Affect, Normal Mood - Skin Skin Exam: Normal Color, Warm Assessment and Plan - Assessment and Plan (Free Text) Assessment: 67 y/o female with bilateral lymphedema and RLE cellulitis and swelling with draining ulceration to right medial ankle Plan: Patient seen and evaluated with attending Dr. Tariq Labs and vitals reviewed- afebrile, WBC 11.0 today Cultures (Final): Proteus species and Beta hemolytic GBS IV abx as per ID: Vancomycin and Aztreonam Extremity ultrasound negative for DVT to RLE Medial ankle ulceration cleansed with saline and 4x4 gauze Dressed wound with xeroform, maxsorb, ABD and kerlix Multipodus boots to be worn at all times when in bed Podiatry will continue to follow while in house <Jarrett Tariq - Last Filed: 06/23/17 11:14> Objective - Vital Signs/Intake and Output Vital Signs (last 24 hours): Temp Pulse Resp BP Pulse Ox 98.3 F 87 20 147/71 95 06/23/17 07:30 06/23/17 10:01 06/23/17 07:30 06/23/17 10:01 06/23/17 07:30 Intake and Output: 06/23/17 06/23/17 06:59 18:59 Intake Total 120 Balance 120 - Medications Medications: Current Medications Acetaminophen (Tylenol 325mg Tab) 650 mg PO Q4 PRN PRN Reason: Fever >100.4 F Last Admin: 06/15/17 23:29 Dose: 650 mg Acetaminophen/Butalbital/Caffeine (Fioricet) 1 tab PO Q4H PRN PRN Reason: Headache Last Admin: 06/22/17 23:03 Dose: 1 tab Albuterol/Ipratropium (Duoneb 3 Mg/0.5 Mg (3 Ml) Ud) 3 ml IH [id number] PRN PRN Reason: Shortness of Breath Ascorbic Acid (Vitamin C 500 Mg Tab) 500 mg PO BID [facility] Last Admin: 06/23/17 09:58 Dose: 500 mg Docusate Sodium (Colace) 100 mg PO DAILY [facility] Last Admin: 06/23/17 09:59 Dose: 100 mg Ferrous Sulfate (Feosol) 324 mg PO TID [facility] Last Admin: 06/23/17 10:01 Dose: 324 mg Heparin Sodium (Porcine) (Heparin) 5,000 units SC Q12 [facility] PRN Reason: Protocol Last Admin: 06/23/17 09:56 Dose: 5,000 units Vancomycin HCl (Vancomycin 1gm) 1 gm in 250 mls @ 167 mls/hr IVPB Q12H [facility] PRN Reason: Protocol Last Admin: 06/23/17 06:04 Dose: 167 mls/hr Metoprolol Tartrate (Lopressor) 25 mg PO BID [facility] Last Admin: 06/23/17 10:01 Dose: 25 mg Multivitamins/Minerals (Therapeutic-M Tab) 1 tab PO 0800 [facility] Last Admin: 06/23/17 09:14 Dose: 1 tab Nystatin (Nystop Topical Powder) 1 gm TOP DAILY [facility] Last Admin: 06/23/17 10:01 Dose: 1 gm Pantoprazole Sodium (Protonix Ec Tab) 40 mg PO DAILY [facility] Last Admin: 06/23/17 09:59 Dose: 40 mg Polyethylene Glycol (Miralax) 17 gm PO BID [facility] Last Admin: 06/23/17 09:56 Dose: 17 gm Zinc Sulfate (Zinc Sulfate 220 Mg Cap) 220 mg PO DAILY [facility] Last Admin: 06/23/17 10:00 Dose: 220 mg - Labs Labs: 06/23/17 07:30 06/23/17 07:30 PT 13.1 SECONDS (9.4-12.5) H 06/15/17 11:00 INR 1.19 (0.93-1.08) H 06/15/17 11:00 APTT 31.3 Seconds (25.1-36.5) 06/15/17 11:00 Attending/Attestation - Attestation I have personally seen and examined this patient.: Yes I have fully participated in the care of the patient.: Yes I have reviewed all pertinent clinical information, including history, physical exam and plan: Yes
[2017-06-20] MEDS: Apap-Butalbital-Caffeine 325-50-40mg Tab PO PRN ×3 (11:58→23:18)
--- NOTE | 2017-06-20 19:52 | CP.PCM.PN ---
Subjective - Date & Time of Evaluation Date of Evaluation: 06/20/17 Time of Evaluation: 17:45 - Subjective Subjective: Infectious Disease Follow Up: June 20, 2017 67 yo female presenting with 3 weeks of RLE ulceration, swelling and leaking from the wound as well as multiple falls in the past 3 weeks. The patient has an extensive medical history of asthma, arthritis, vitamin C deficiency, and possible thyroid disease. Had headaches and episodes of SOB overnight. draining RLE ulceration. Patient had a bowel movement during last night. Objective - Vital Signs/Intake and Output Vital Signs (last 24 hours): Temp Pulse Resp BP Pulse Ox 98.3 F 83 20 135/79 93 L 06/20/17 16:12 06/20/17 17:05 06/20/17 16:12 06/20/17 17:05 06/20/17 16:12 - Medications Medications: Current Medications Acetaminophen (Tylenol 325mg Tab) 650 mg PO Q4 PRN PRN Reason: Fever >100.4 F Last Admin: 06/15/17 23:29 Dose: 650 mg Acetaminophen/Butalbital/Caffeine (Fioricet) 1 tab PO Q4H PRN PRN Reason: Headache Last Admin: 06/20/17 17:11 Dose: 1 tab Albuterol/Ipratropium (Duoneb 3 Mg/0.5 Mg (3 Ml) Ud) 3 ml IH [id number] PRN PRN Reason: Shortness of Breath Ascorbic Acid (Vitamin C 500 Mg Tab) 500 mg PO BID [facility] Last Admin: 06/20/17 17:06 Dose: 500 mg Docusate Sodium (Colace) 100 mg PO DAILY [facility] Last Admin: 06/20/17 09:51 Dose: Not Given Ferrous Sulfate (Feosol) 324 mg PO TID [facility] Last Admin: 06/20/17 17:05 Dose: 324 mg Heparin Sodium (Porcine) (Heparin) 5,000 units SC Q12 [facility] PRN Reason: Protocol Last Admin: 06/20/17 09:46 Dose: 5,000 units Vancomycin HCl (Vancomycin 1gm) 1 gm in 250 mls @ 167 mls/hr IVPB Q12H [facility] PRN Reason: Protocol Last Admin: 06/20/17 15:48 Dose: 167 mls/hr Aztreonam (Azactam 1 Gm) 100 mls @ 100 mls/hr IVPB Q8 [facility] PRN Reason: Protocol Stop: 06/21/17 17:31 Last Admin: 06/20/17 13:26 Dose: 100 mls/hr Metoprolol Tartrate (Lopressor) 25 mg PO BID [facility] Last Admin: 06/20/17 17:05 Dose: 25 mg Multivitamins/Minerals (Therapeutic-M Tab) 1 tab PO 0800 [facility] Last Admin: 06/20/17 08:28 Dose: 1 tab Nystatin (Nystop Topical Powder) 1 gm TOP DAILY [facility] Last Admin: 06/20/17 09:53 Dose: 1 gm Pantoprazole Sodium (Protonix Ec Tab) 40 mg PO 0600,1600 [facility] Last Admin: 06/20/17 15:48 Dose: 40 mg Polyethylene Glycol (Miralax) 17 gm PO BID [facility] Last Admin: 06/20/17 17:07 Dose: Not Given Zinc Sulfate (Zinc Sulfate 220 Mg Cap) 220 mg PO DAILY [facility] Last Admin: 06/20/17 09:45 Dose: 220 mg - Labs Labs: 06/20/17 05:35 06/20/17 05:35 PT 13.1 SECONDS (9.4-12.5) H 06/15/17 11:00 INR 1.19 (0.93-1.08) H 06/15/17 11:00 APTT 31.3 Seconds (25.1-36.5) 06/15/17 11:00 - Constitutional Appears: Non-toxic, No Acute Distress, Chronically Ill - Head Exam Head Exam: ATRAUMATIC, NORMOCEPHALIC Additional comments: marked hair loss - Eye Exam Eye Exam: EOMI, PERRL Pupil Exam: NORMAL ACCOMODATION, PERRL - ENT Exam ENT Exam: Mucous Membranes Moist, Normal External Ear Exam, TM's Normal Bilaterally Additional comments: dentures - Respiratory Exam Respiratory Exam: Clear to Ausculation Bilateral, NORMAL BREATHING PATTERN. absent: Rales, Rhonchi, Wheezes - Cardiovascular Exam Cardiovascular Exam: REGULAR RHYTHM, RRR, +S1, +S2 - GI/Abdominal Exam GI & Abdominal Exam: Distended, Soft, Normal Bowel Sounds. absent: Tenderness Additional comments: largely distended but may be normal for the patient. - Extremities Exam Extremities Exam: Joint Swelling, Pedal Edema Additional comments: RLE swollen R ankle with ulcer b/l chronic venous changes tinea and chronic venous stasis changes. Signs of arthritis in joints of the hands. - Neurological Exam Neurological Exam: Alert, Awake, CN II-XII Intact, Oriented x3 - Psychiatric Exam Psychiatric exam: Normal Affect, Normal Mood - Skin Skin Exam: Erythema, Mottled Additional comments: As Above Assessment and Plan - Assessment and Plan (Free Text) Assessment: 67 yo female with multiple medical issues with PCN allergy diagnosed as a teenager verified by an Bailiff. The patient with leukocytosis. Consider use of Aztreonam for antibiotic coverage for now. Await cultures especially urine cultures. Diabetes and HTN history? Local wound care. Elevated ESR and C-reactive protein. Continue Vancomycin and Aztreonam for antibiotic coverage. UTI with E. coli sensitive to Azactam. Maintain vancomycin for cellulitis IV. For UTI 5-7 days treatment. Nearing completion. Supportive care. Thank you for allowing me to participate in the care of the patient, we will follow with you.
[2017-06-21] MEDS: Vancomycin 1gm in NS 250ml 1 GM/250 ML BAG IVPB SCH ×2 (03:27→18:55)
[2017-06-21] MEDS: Apap-Butalbital-Caffeine 325-50-40mg Tab PO PRN (04:27)
[2017-06-21] MEDS: Aztreonam 1 Gm in NS 100mL 100 ML IVPB SCH ×2 (05:38→17:27)
[2017-06-21] MEDS: Pantoprazole 40 mg EC Tab PO SCH (05:39)
[2017-06-21 09:27] LABS: BASO # 0.07 K/mm3 (0.0-2.0); BASO % 0.7 % (0.0-3.0); EOS # 0.8 (0.0-0.7); EOS % 7.7 % (1.5-5.0); GRAN # 6.66 (1.4-6.5); GRAN % 66.7 % (50.0-68.0); HEMOGLOBIN 8.8 g/dL (12.0-16.0); LYMPH # 1.4 (1.2-3.4); LYMPH % 14.2 % (22.0-35.0); MEAN CELL VOLUME 76.1 fl (80.0-105.0); MEAN CORPUSCULAR HEMOGLOBIN 23.1 pg (25.0-35.0); MEAN CORPUSCULAR HGB CONC 30.3 g/dl (31.0-37.0); MEAN PLATELET VOLUME 7.6 fl (7.0-11.0); MONO # 1.1 (0.1-0.6); MONO % 10.7 % (1.0-6.0); RBC 3.81 10^6/uL (3.5-6.1); RED CELL DISTRIBUTION WIDTH 19.2 % (11.5-14.5)
[2017-06-21 09:45] LABS: ALB/GLOB RATIO 0.7 (1.1-1.8); ALBUMIN 2.8 g/dL (3.0-4.8); ALT/SGPT 31 U/L (7-56); AST/SGOT 34 U/L (14-36); BLOOD UREA NITROGEN 14 mg/dL (7-21); CALCIUM 7.6 mg/dL (8.4-10.5); GFR AFRICAN-AMERICAN > 60; GFR NON-AFRICAN AMERICAN > 60
[2017-06-21] MEDS: Multivitamin With Minerals Tab PO SCH (10:25)
[2017-06-21] MEDS: POLYETHYLENE GLYCOL 3350 17 GM/Dose PACKET PO SCH ×2 (10:36→17:52)
--- NOTE | 2017-06-21 12:48 | CP.PCM.PN ---
<[place] - Last Filed: 06/21/17 15:27> Subjective - Date & Time of Evaluation Date of Evaluation: 06/21/17 Time of Evaluation: 11:45 - Subjective Subjective: Patient was see and examined at bedside. Per nursing no acute events occurred overnight. The patient is still reporting bilateral leg pain that she rates a 8 /10 in severity. The patient denies any chest pain, shortness of breath, lightheadedness, dizziness, changes in vision, nausea, vomiting, or any other complaints. Objective - Vital Signs/Intake and Output Vital Signs (last 24 hours): Temp Pulse Resp BP Pulse Ox 98.4 F 89 22 108/53 L 97 06/21/17 07:00 06/21/17 10:26 06/21/17 07:00 06/21/17 10:26 06/21/17 07:00 Intake and Output: 06/21/17 06/21/17 06:59 18:59 Intake Total 660 Balance 660 - Medications Medications: Current Medications Acetaminophen (Tylenol 325mg Tab) 650 mg PO Q4 PRN PRN Reason: Fever >100.4 F Last Admin: 06/15/17 23:29 Dose: 650 mg Acetaminophen/Butalbital/Caffeine (Fioricet) 1 tab PO Q4H PRN PRN Reason: Headache Last Admin: 06/21/17 04:27 Dose: 1 tab Albuterol/Ipratropium (Duoneb 3 Mg/0.5 Mg (3 Ml) Ud) 3 ml IH [id number] PRN PRN Reason: Shortness of Breath Ascorbic Acid (Vitamin C 500 Mg Tab) 500 mg PO BID [facility] Last Admin: 06/21/17 10:25 Dose: 500 mg Docusate Sodium (Colace) 100 mg PO DAILY [facility] Last Admin: 06/21/17 10:35 Dose: Not Given Ferrous Sulfate (Feosol) 324 mg PO TID [facility] Last Admin: 06/21/17 10:24 Dose: 324 mg Heparin Sodium (Porcine) (Heparin) 5,000 units SC Q12 [facility] PRN Reason: Protocol Last Admin: 06/21/17 10:24 Dose: 5,000 units Vancomycin HCl (Vancomycin 1gm) 1 gm in 250 mls @ 167 mls/hr IVPB Q12H [facility] PRN Reason: Protocol Last Admin: 06/21/17 03:27 Dose: 167 mls/hr Aztreonam (Azactam 1 Gm) 100 mls @ 100 mls/hr IVPB Q8 [facility] PRN Reason: Protocol Stop: 06/21/17 17:31 Last Admin: 06/21/17 05:38 Dose: 100 mls/hr Metoprolol Tartrate (Lopressor) 25 mg PO BID [facility] Last Admin: 06/21/17 10:26 Dose: 25 mg Multivitamins/Minerals (Therapeutic-M Tab) 1 tab PO 0800 [facility] Last Admin: 06/21/17 10:25 Dose: 1 tab Nystatin (Nystop Topical Powder) 1 gm TOP DAILY [facility] Last Admin: 06/20/17 09:53 Dose: 1 gm Pantoprazole Sodium (Protonix Ec Tab) 40 mg PO 0600,1600 [facility] Last Admin: 06/21/17 05:39 Dose: 40 mg Polyethylene Glycol (Miralax) 17 gm PO BID [facility] Last Admin: 06/21/17 10:36 Dose: Not Given Zinc Sulfate (Zinc Sulfate 220 Mg Cap) 220 mg PO DAILY [facility] Last Admin: 06/21/17 10:25 Dose: 220 mg - Labs Labs: 06/21/17 09:15 06/21/17 09:15 PT 13.1 SECONDS (9.4-12.5) H 06/15/17 11:00 INR 1.19 (0.93-1.08) H 06/15/17 11:00 APTT 31.3 Seconds (25.1-36.5) 06/15/17 11:00 - Head Exam Head Exam: ATRAUMATIC, NORMAL INSPECTION, NORMOCEPHALIC - Eye Exam Eye Exam: EOMI, Normal appearance, PERRL. absent: Periorbital tenderness Pupil Exam: NORMAL ACCOMODATION, PERRL. absent: Miosis, Mydriatic - ENT Exam ENT Exam: Mucous Membranes Moist, Normal Exam, Normal Oropharynx - Neck Exam Neck Exam: Normal Inspection. absent: Lymphadenopathy, Meningismus - Respiratory Exam Respiratory Exam: Clear to Ausculation Bilateral, NORMAL BREATHING PATTERN. absent: Rales, Rhonchi - Cardiovascular Exam Cardiovascular Exam: REGULAR RHYTHM, RRR, +S1, +S2. absent: Gallop, Rubs - GI/Abdominal Exam GI & Abdominal Exam: Soft, Normal Bowel Sounds. absent: Tenderness - Extremities Exam Extremities Exam: Full ROM, Joint Swelling - Back Exam Back Exam: NORMAL INSPECTION. absent: paraspinal tenderness - Neurological Exam Neurological Exam: Alert, Awake, CN II-XII Intact. absent: Normal Gait Additional comments: 2/4 D/P Bilaterally. - Psychiatric Exam Psychiatric exam: Normal Affect, Normal Mood - Skin Skin Exam: Erythema Assessment and Plan - Assessment and Plan (Free Text) Assessment: 67 F with a PMHx of asthma, arthritis, and vitamin C deficiency who presents with RLE ulcer/cellulitis and chronic venous changes b/l, found to be septic in ED, post code sepsis. Plan: 1. RLE cellulitis/ulcer s/p CODE SEPSIS secondary to Proteus Mirabilis and beta hemolytic group b strep - cont vancomycin day 6 and Azactam day 6 - afebrile - WBC continues to downtrend - tylenol prn fevers - MV/Vitamin C and Zinc - ID consulted, rec's appreciated. -Podiatry consulted, rec's appreciated. - multipodus boot to be worn at all times as per podiatry - Deconditioning best done by TED as per PT evaluation. -Patient expected to go to subacute facility pending approval. Case management still needs necessary documents from patient. Will f/u tomorrow. 2. Headache - fioricet PRN - avoid motrin at this time 3. Shortness of breath - continue duoneb PRN - O2 Sat >90% on room air - cont O2 NC PRN 5. Constipation - Colace and Miralax [facility]; patient reports 1 normal consistency BM yesterday. - Will continue to monitor. 6. UTI - Continue with Azactam currently day 6 7. Anemia likely 2/2 iron deficiency anemia -Continue Feosol -trend H/H 8. arthritis - continue motrin prn pain 9. vitamin C deficiency - continue MV and Vitamin C ordered GI/DVT ppx: heparin/protonix <Clemente Cabrera - Last Filed: 06/21/17 16:12> Objective - Vital Signs/Intake and Output Vital Signs (last 24 hours): Temp Pulse Resp BP Pulse Ox 98.4 F 89 22 108/53 L 97 06/21/17 07:00 06/21/17 10:26 06/21/17 07:00 06/21/17 10:26 06/21/17 07:00 Intake and Output: 06/21/17 06/21/17 06:59 18:59 Intake Total 660 480 Balance 660 480 - Medications Medications: Current Medications Acetaminophen (Tylenol 325mg Tab) 650 mg PO Q4 PRN PRN Reason: Fever >100.4 F Last Admin: 06/15/17 23:29 Dose: 650 mg Acetaminophen/Butalbital/Caffeine (Fioricet) 1 tab PO Q4H PRN PRN Reason: Headache Last Admin: 06/21/17 04:27 Dose: 1 tab Albuterol/Ipratropium (Duoneb 3 Mg/0.5 Mg (3 Ml) Ud) 3 ml IH [id number] PRN PRN Reason: Shortness of Breath Ascorbic Acid (Vitamin C 500 Mg Tab) 500 mg PO BID [facility] Last Admin: 06/21/17 10:25 Dose: 500 mg Docusate Sodium (Colace) 100 mg PO DAILY [facility] Last Admin: 06/21/17 10:35 Dose: Not Given Ferrous Sulfate (Feosol) 324 mg PO TID [facility] Last Admin: 06/21/17 14:07 Dose: 324 mg Heparin Sodium (Porcine) (Heparin) 5,000 units SC Q12 [facility] PRN Reason: Protocol Last Admin: 06/21/17 10:24 Dose: 5,000 units Vancomycin HCl (Vancomycin 1gm) 1 gm in 250 mls @ 167 mls/hr IVPB Q12H [facility] PRN Reason: Protocol Last Admin: 06/21/17 03:27 Dose: 167 mls/hr Aztreonam (Azactam 1 Gm) 100 mls @ 100 mls/hr IVPB Q8 [facility] PRN Reason: Protocol Stop: 06/21/17 17:31 Last Admin: 06/21/17 05:38 Dose: 100 mls/hr Metoprolol Tartrate (Lopressor) 25 mg PO BID [facility] Last Admin: 06/21/17 10:26 Dose: 25 mg Multivitamins/Minerals (Therapeutic-M Tab) 1 tab PO 0800 [facility] Last Admin: 06/21/17 10:25 Dose: 1 tab Nystatin (Nystop Topical Powder) 1 gm TOP DAILY [facility] Last Admin: 06/21/17 14:08 Dose: 1 gm Pantoprazole Sodium (Protonix Ec Tab) 40 mg PO 0600,1600 [facility] Last Admin: 06/21/17 05:39 Dose: 40 mg Polyethylene Glycol (Miralax) 17 gm PO BID [facility] Last Admin: 06/21/17 10:36 Dose: Not Given Zinc Sulfate (Zinc Sulfate 220 Mg Cap) 220 mg PO DAILY [facility] Last Admin: 06/21/17 10:25 Dose: 220 mg - Labs Labs: 06/21/17 09:15 06/21/17 09:15 PT 13.1 SECONDS (9.4-12.5) H 06/15/17 11:00 INR 1.19 (0.93-1.08) H 06/15/17 11:00 APTT 31.3 Seconds (25.1-36.5) 06/15/17 11:00 Attending/Attestation - Attestation I have personally seen and examined this patient.: Yes I have fully participated in the care of the patient.: Yes I have reviewed all pertinent clinical information, including history, physical exam and plan: Yes Notes (Text): I have seen and examined the patient with the resident. Agree with the above note with the following additions/ exceptions: Briefly this is 67 year old female with history of asthma, iron deficiency anemia, arthritis, obesity who was admitted for evaluation of bilateral lymphedema and RLE cellulitis with draining ulcer of right ankle. Cellulitis has resolved however edema remains there. Will check echo to evaluate LVEF. Duplex negative for DVT. Multipodus boots on. Wound dressing was done by podiatry. Wound cultures reveal proteus and beta hemolytic group B. She also has EColi UTI. Continue vancomycin and azactam. PT recommended TED. Continue feosol and miralax. Change to protonix daily. Continue vitamin C, MVI and zinc to promote wound healing. Continue nystatin powder for skin folds in bilateral lower extremities. Upon discharge patient will follow up in [facility] clinic. Dr Clemente Cabrera
[2017-06-21] MEDS: Nystatin 100,000 Units/gm Topical Pow(15 gm) TOP SCH (14:08)
--- NOTE | 2017-06-21 14:22 | CP.PCM.PN ---
<Elijah Bai - Last Filed: 06/21/17 14:11> Subjective - Date & Time of Evaluation Date of Evaluation: 06/21/17 Time of Evaluation: 14:12 - Subjective Subjective: 67 y/o female seen at bedside with attending Dr. Cano right lower extremity cellulitis with swelling, lymphedema and superficial draining ulceration. Patient appears to be resting comfortably in her bed and denies any acute events overnight. AAO x3. Patient admits to pain on palpation to the right leg site of ulceration. Cellulitis appears resolved. Patient denies any F/C/N/V/CP/ SOB at this time. Objective - Vital Signs/Intake and Output Vital Signs (last 24 hours): Temp Pulse Resp BP Pulse Ox 98.4 F 89 22 108/53 L 97 06/21/17 07:00 06/21/17 10:26 06/21/17 07:00 06/21/17 10:26 06/21/17 07:00 Intake and Output: 06/21/17 06/21/17 06:59 18:59 Intake Total 660 Balance 660 - Medications Medications: Current Medications Acetaminophen (Tylenol 325mg Tab) 650 mg PO Q4 PRN PRN Reason: Fever >100.4 F Last Admin: 06/15/17 23:29 Dose: 650 mg Acetaminophen/Butalbital/Caffeine (Fioricet) 1 tab PO Q4H PRN PRN Reason: Headache Last Admin: 06/21/17 04:27 Dose: 1 tab Albuterol/Ipratropium (Duoneb 3 Mg/0.5 Mg (3 Ml) Ud) 3 ml IH [id number] PRN PRN Reason: Shortness of Breath Ascorbic Acid (Vitamin C 500 Mg Tab) 500 mg PO BID [facility] Last Admin: 06/21/17 10:25 Dose: 500 mg Docusate Sodium (Colace) 100 mg PO DAILY [facility] Last Admin: 06/21/17 10:35 Dose: Not Given Ferrous Sulfate (Feosol) 324 mg PO TID [facility] Last Admin: 06/21/17 14:07 Dose: 324 mg Heparin Sodium (Porcine) (Heparin) 5,000 units SC Q12 [facility] PRN Reason: Protocol Last Admin: 06/21/17 10:24 Dose: 5,000 units Vancomycin HCl (Vancomycin 1gm) 1 gm in 250 mls @ 167 mls/hr IVPB Q12H [facility] PRN Reason: Protocol Last Admin: 06/21/17 03:27 Dose: 167 mls/hr Aztreonam (Azactam 1 Gm) 100 mls @ 100 mls/hr IVPB Q8 [facility] PRN Reason: Protocol Stop: 06/21/17 17:31 Last Admin: 06/21/17 05:38 Dose: 100 mls/hr Metoprolol Tartrate (Lopressor) 25 mg PO BID [facility] Last Admin: 06/21/17 10:26 Dose: 25 mg Multivitamins/Minerals (Therapeutic-M Tab) 1 tab PO 0800 [facility] Last Admin: 06/21/17 10:25 Dose: 1 tab Nystatin (Nystop Topical Powder) 1 gm TOP DAILY [facility] Last Admin: 06/21/17 14:08 Dose: 1 gm Pantoprazole Sodium (Protonix Ec Tab) 40 mg PO 0600,1600 [facility] Last Admin: 06/21/17 05:39 Dose: 40 mg Polyethylene Glycol (Miralax) 17 gm PO BID [facility] Last Admin: 06/21/17 10:36 Dose: Not Given Zinc Sulfate (Zinc Sulfate 220 Mg Cap) 220 mg PO DAILY [facility] Last Admin: 06/21/17 10:25 Dose: 220 mg - Labs Labs: 06/21/17 09:15 06/21/17 09:15 PT 13.1 SECONDS (9.4-12.5) H 06/15/17 11:00 INR 1.19 (0.93-1.08) H 06/15/17 11:00 APTT 31.3 Seconds (25.1-36.5) 06/15/17 11:00 - Constitutional Appears: Well, Non-toxic, No Acute Distress - Extremities Exam Extremities Exam: absent: Calf Tenderness Additional comments: Right lower extremity exam: Vasc: DP/PT pulses 2/4 B/L. +4 pitting edema to RLE distal to tibial tuberosity , +3 to LLE. Temperature gradient warm to warm on R, warm to cool on L. CFT < 3 sec to all digits Derm: Cellulitis to right leg appears resolved with no visible erythema. Approx 8cm x 6cm superficial ulceration which appears to have dermal layer with no active drainage. Malodor appears to be resolved. No purulent discharge noted. No tunneling or undermining noted. no PTB Neuro: Protective sensation grossly intact Ortho: Significant tenderness on palpation of right lower extremity, increased on elevation of leg off the bed - Neurological Exam Neurological Exam: Alert, Awake, Oriented x3 - Psychiatric Exam Psychiatric exam: Normal Affect, Normal Mood Assessment and Plan - Assessment and Plan (Free Text) Assessment: 67 y/o female with bilateral lymphedema and RLE cellulitis and swelling with draining ulceration to right medial ankle Plan: Patient seen and evaluated with attending Dr. Tariq Labs and vitals reviewed- afebrile, WBC 10.0 today Cultures (Final): Proteus species and Beta hemolytic GBS IV abx as per ID: Vancomycin and Aztreonam Extremity ultrasound negative for DVT to RLE Medial ankle ulceration cleansed with saline and 4x4 gauze Dressed wound with DSD Multipodus boots to be worn at all times when in bed Podiatry will continue to follow while in house <Buffy Cano - Last Filed: 06/21/17 15:31> Objective - Vital Signs/Intake and Output Vital Signs (last 24 hours): Temp Pulse Resp BP Pulse Ox 98.4 F 89 22 108/53 L 97 06/21/17 07:00 06/21/17 10:26 06/21/17 07:00 06/21/17 10:26 06/21/17 07:00 Intake and Output: 06/21/17 06/21/17 06:59 18:59 Intake Total 660 480 Balance 660 480 - Medications Medications: Current Medications Acetaminophen (Tylenol 325mg Tab) 650 mg PO Q4 PRN PRN Reason: Fever >100.4 F Last Admin: 06/15/17 23:29 Dose: 650 mg Acetaminophen/Butalbital/Caffeine (Fioricet) 1 tab PO Q4H PRN PRN Reason: Headache Last Admin: 06/21/17 04:27 Dose: 1 tab Albuterol/Ipratropium (Duoneb 3 Mg/0.5 Mg (3 Ml) Ud) 3 ml IH [id number] PRN PRN Reason: Shortness of Breath Ascorbic Acid (Vitamin C 500 Mg Tab) 500 mg PO BID [facility] Last Admin: 06/21/17 10:25 Dose: 500 mg Docusate Sodium (Colace) 100 mg PO DAILY [facility] Last Admin: 06/21/17 10:35 Dose: Not Given Ferrous Sulfate (Feosol) 324 mg PO TID [facility] Last Admin: 06/21/17 14:07 Dose: 324 mg Heparin Sodium (Porcine) (Heparin) 5,000 units SC Q12 ESCOBAR PRN Reason: Protocol Last Admin: 06/21/17 10:24 Dose: 5,000 units Vancomycin HCl (Vancomycin 1gm) 1 gm in 250 mls @ 167 mls/hr IVPB Q12H [facility] PRN Reason: Protocol Last Admin: 06/21/17 03:27 Dose: 167 mls/hr Aztreonam (Azactam 1 Gm) 100 mls @ 100 mls/hr IVPB Q8 [facility] PRN Reason: Protocol Stop: 06/21/17 17:31 Last Admin: 06/21/17 05:38 Dose: 100 mls/hr Metoprolol Tartrate (Lopressor) 25 mg PO BID [facility] Last Admin: 06/21/17 10:26 Dose: 25 mg Multivitamins/Minerals (Therapeutic-M Tab) 1 tab PO 0800 [facility] Last Admin: 06/21/17 10:25 Dose: 1 tab Nystatin (Nystop Topical Powder) 1 gm TOP DAILY [facility] Last Admin: 06/21/17 14:08 Dose: 1 gm Pantoprazole Sodium (Protonix Ec Tab) 40 mg PO 0600,1600 [facility] Last Admin: 06/21/17 05:39 Dose: 40 mg Polyethylene Glycol (Miralax) 17 gm PO BID [facility] Last Admin: 06/21/17 10:36 Dose: Not Given Zinc Sulfate (Zinc Sulfate 220 Mg Cap) 220 mg PO DAILY [facility] Last Admin: 06/21/17 10:25 Dose: 220 mg - Labs Labs: 06/21/17 09:15 06/21/17 09:15 PT 13.1 SECONDS (9.4-12.5) H 06/15/17 11:00 INR 1.19 (0.93-1.08) H 06/15/17 11:00 APTT 31.3 Seconds (25.1-36.5) 06/15/17 11:00 Attending/Attestation - Attestation I have personally seen and examined this patient.: Yes I have fully participated in the care of the patient.: Yes I have reviewed all pertinent clinical information, including history, physical exam and plan: Yes
[2017-06-21] MEDS ORDERED: Potassium Chloride 20 mEq ER Tab PO ONE (19:46)
--- NOTE | 2017-06-21 19:47 | CP.PCM.PN ---
Subjective - Date & Time of Evaluation Date of Evaluation: 06/21/17 Time of Evaluation: 16:45 - Subjective Subjective: Infectious Disease Follow Up: June 21, 2017 67 yo female presenting with 3 weeks of RLE ulceration, swelling and leaking from the wound as well as multiple falls in the past 3 weeks. The patient has an extensive medical history of asthma, arthritis, vitamin C deficiency, and possible thyroid disease. Had headaches and episodes of SOB overnight. draining RLE ulceration... cellulitis improved/resolved. Multiple chronic medical issues. Objective - Vital Signs/Intake and Output Vital Signs (last 24 hours): Temp Pulse Resp BP Pulse Ox 98 F 101 H 18 147/94 H 100 06/21/17 18:22 06/21/17 18:22 06/21/17 18:22 06/21/17 18:22 06/21/17 18:22 Intake and Output: 06/21/17 06/22/17 18:59 06:59 Intake Total 480 Balance 480 - Medications Medications: Current Medications Acetaminophen (Tylenol 325mg Tab) 650 mg PO Q4 PRN PRN Reason: Fever >100.4 F Last Admin: 06/15/17 23:29 Dose: 650 mg Acetaminophen/Butalbital/Caffeine (Fioricet) 1 tab PO Q4H PRN PRN Reason: Headache Last Admin: 06/21/17 04:27 Dose: 1 tab Albuterol/Ipratropium (Duoneb 3 Mg/0.5 Mg (3 Ml) Ud) 3 ml IH [id number] PRN PRN Reason: Shortness of Breath Ascorbic Acid (Vitamin C 500 Mg Tab) 500 mg PO BID [facility] Last Admin: 06/21/17 17:54 Dose: 500 mg Docusate Sodium (Colace) 100 mg PO DAILY [facility] Last Admin: 06/21/17 10:35 Dose: Not Given Ferrous Sulfate (Feosol) 324 mg PO TID [facility] Last Admin: 06/21/17 17:52 Dose: 324 mg Heparin Sodium (Porcine) (Heparin) 5,000 units SC Q12 [facility]OB[facility] PRN Reason: Protocol Last Admin: 06/21/17 10:24 Dose: 5,000 units Vancomycin HCl (Vancomycin 1gm) 1 gm in 250 mls @ 167 mls/hr IVPB Q12H [facility] PRN Reason: Protocol Last Admin: 11/20/17 18:55 Dose: 167 mls/hr Metoprolol Tartrate (Lopressor) 25 mg PO BID [facility] Last Admin: 06/21/17 17:52 Dose: 25 mg Multivitamins/Minerals (Therapeutic-M Tab) 1 tab PO 0800 [facility] Last Admin: 06/21/17 10:25 Dose: 1 tab Nystatin (Nystop Topical Powder) 1 gm TOP DAILY [facility] Last Admin: 06/21/17 14:08 Dose: 1 gm Pantoprazole Sodium (Protonix Ec Tab) 40 mg PO DAILY [facility] Polyethylene Glycol (Miralax) 17 gm PO BID [facility] Last Admin: 06/21/17 17:52 Dose: Not Given Zinc Sulfate (Zinc Sulfate 220 Mg Cap) 220 mg PO DAILY [facility] Last Admin: 06/21/17 10:25 Dose: 220 mg - Labs Labs: 06/21/17 09:15 06/21/17 09:15 PT 13.1 SECONDS (9.4-12.5) H 06/15/17 11:00 INR 1.19 (0.93-1.08) H 06/15/17 11:00 APTT 31.3 Seconds (25.1-36.5) 06/15/17 11:00 - Constitutional Appears: Non-toxic, No Acute Distress, Chronically Ill - Head Exam Head Exam: ATRAUMATIC, NORMOCEPHALIC Additional comments: marked hair loss. - Eye Exam Eye Exam: EOMI, PERRL Pupil Exam: NORMAL ACCOMODATION, PERRL - ENT Exam ENT Exam: Mucous Membranes Moist, Normal External Ear Exam, TM's Normal Bilaterally Additional comments: dentures - Respiratory Exam Respiratory Exam: Clear to Ausculation Bilateral, NORMAL BREATHING PATTERN. absent: Rales, Rhonchi, Wheezes - Cardiovascular Exam Cardiovascular Exam: REGULAR RHYTHM, RRR, +S1, +S2 - GI/Abdominal Exam GI & Abdominal Exam: Distended, Soft, Normal Bowel Sounds. absent: Tenderness Additional comments: largely distended but may be normal for the patient - Extremities Exam Extremities Exam: Joint Swelling, Pedal Edema Additional comments: RLE less swollen R ankle with ulcer - improving slowly b/l chronic venous changes tinea and chronic venous stasis changes. Signs of arthritis in joints of the hands. 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 The patient with leukocytosis. Consider use of Aztreonam for antibiotic coverage for now. Await cultures especially urine cultures. Diabetes and HTN history? Local wound care. Elevated ESR and C-reactive protein. Continue Vancomycin and Aztreonam for antibiotic coverage. UTI with E. coli sensitive to Azactam. Maintain vancomycin for cellulitis IV. For UTI for 5-7 days treatment. Nearing completion. Supportive care. Cellulitis appears improved. Thank you for allowing me to participate in the care of the patient, we will follow with you.
[2017-06-22] MEDS: Vancomycin 1gm in NS 250ml 1 GM/250 ML BAG IVPB SCH ×2 (04:54→17:00)
[2017-06-22 08:08] LABS: BASO # 0.07 K/mm3 (0.0-2.0); BASO % 0.7 % (0.0-3.0); EOS # 0.9 (0.0-0.7); EOS % 8.3 % (1.5-5.0); GRAN # 6.67 (1.4-6.5); GRAN % 63.9 % (50.0-68.0); HEMOGLOBIN 8.5 g/dL (12.0-16.0); LYMPH # 1.6 (1.2-3.4); MEAN CELL VOLUME 77.4 fl (80.0-105.0); MEAN CORPUSCULAR HEMOGLOBIN 22.9 pg (25.0-35.0); MEAN CORPUSCULAR HGB CONC 29.6 g/dl (31.0-37.0); MEAN PLATELET VOLUME 7.6 fl (7.0-11.0); MONO # 1.3 (0.1-0.6); MONO % 12.1 % (1.0-6.0); RBC 3.71 10^6/uL (3.5-6.1); WHITE BLOOD COUNT 10.4 10^3/ul (4.5-11.0)
[2017-06-22 08:22] LABS: ALB/GLOB RATIO 0.7 (1.1-1.8); ALBUMIN 2.8 g/dL (3.0-4.8); ALT/SGPT 30 U/L (7-56); AST/SGOT 35 U/L (14-36); BLOOD UREA NITROGEN 13 mg/dL (7-21); CALCIUM 7.7 mg/dL (8.4-10.5); GFR AFRICAN-AMERICAN > 60; GFR NON-AFRICAN AMERICAN > 60
[2017-06-22] MEDS: Multivitamin With Minerals Tab PO SCH (08:36)
[2017-06-22] MEDS: Pantoprazole 40 mg EC Tab PO SCH (10:50)
[2017-06-22] MEDS: POLYETHYLENE GLYCOL 3350 17 GM/Dose PACKET PO SCH ×2 (10:53→17:01)
[2017-06-22] MEDS: Nystatin 100,000 Units/gm Topical Pow(15 gm) TOP SCH (10:54)
--- NOTE | 2017-06-22 12:43 | CP.PCM.PN ---
<Yonatan Rodriguez - Last Filed: 06/22/17 14:22> Subjective - Date & Time of Evaluation Date of Evaluation: 06/22/17 Time of Evaluation: 09:40 - Subjective Subjective: Patient was seen and examined at bedside. Per nursing no acute events occurred overnight. The patient still reports some lower extremity pain today. The patient denies any chest pain, shortness of breath, lightheadedness, dizziness, abdominal pain, nausea, vomiting or any other complaints. Objective - Vital Signs/Intake and Output Vital Signs (last 24 hours): Temp Pulse Resp BP Pulse Ox 98.7 F 92 H 20 135/74 96 06/22/17 06:00 06/22/17 10:51 06/22/17 06:00 06/22/17 10:51 06/22/17 06:00 - Medications Medications: Current Medications Acetaminophen (Tylenol 325mg Tab) 650 mg PO Q4 PRN PRN Reason: Fever >100.4 F Last Admin: 06/15/17 23:29 Dose: 650 mg Acetaminophen/Butalbital/Caffeine (Fioricet) 1 tab PO Q4H PRN PRN Reason: Headache Last Admin: 06/21/17 04:27 Dose: 1 tab Albuterol/Ipratropium (Duoneb 3 Mg/0.5 Mg (3 Ml) Ud) 3 ml IH [id number] PRN PRN Reason: Shortness of Breath Ascorbic Acid (Vitamin C 500 Mg Tab) 500 mg PO BID [facility] Last Admin: 06/22/17 10:50 Dose: 500 mg Docusate Sodium (Colace) 100 mg PO DAILY [facility] Last Admin: 06/22/17 10:50 Dose: 100 mg Ferrous Sulfate (Feosol) 324 mg PO TID [facility] Last Admin: 06/22/17 10:50 Dose: 324 mg Heparin Sodium (Porcine) (Heparin) 5,000 units SC Q12 [facility]OBAR PRN Reason: Protocol Last Admin: 06/22/17 10:50 Dose: 5,000 units Vancomycin HCl (Vancomycin 1gm) 1 gm in 250 mls @ 167 mls/hr IVPB Q12H [facility]OBAR PRN Reason: Protocol Last Admin: 06/22/17 04:54 Dose: 167 mls/hr Metoprolol Tartrate (Lopressor) 25 mg PO BID [facility] Last Admin: 06/22/17 10:51 Dose: 25 mg Multivitamins/Minerals (Therapeutic-M Tab) 1 tab PO 0800 [facility] Last Admin: 06/22/17 08:36 Dose: 1 tab Nystatin (Nystop Topical Powder) 1 gm TOP DAILY [facility] Last Admin: 06/22/17 10:54 Dose: 1 gm Pantoprazole Sodium (Protonix Ec Tab) 40 mg PO DAILY [facility] Last Admin: 06/22/17 10:50 Dose: 40 mg Polyethylene Glycol (Miralax) 17 gm PO BID [facility] Last Admin: 06/22/17 10:53 Dose: 17 gm Zinc Sulfate (Zinc Sulfate 220 Mg Cap) 220 mg PO DAILY [facility] Last Admin: 06/22/17 10:55 Dose: 220 mg - Labs Labs: 06/22/17 06:59 06/22/17 07:00 PT 13.1 SECONDS (9.4-12.5) H 06/15/17 11:00 INR 1.19 (0.93-1.08) H 06/15/17 11:00 APTT 31.3 Seconds (25.1-36.5) 06/15/17 11:00 - Head Exam Head Exam: ATRAUMATIC, NORMAL INSPECTION, NORMOCEPHALIC - Eye Exam Eye Exam: EOMI, Normal appearance, PERRL. absent: Periorbital tenderness Pupil Exam: NORMAL ACCOMODATION, PERRL. absent: Irregular, Unequal - ENT Exam ENT Exam: Mucous Membranes Moist, Normal Exam, Normal Oropharynx - Neck Exam Neck Exam: Normal Inspection - Respiratory Exam Respiratory Exam: Clear to Ausculation Bilateral, NORMAL BREATHING PATTERN. absent: Chest Wall Tenderness, Prolonged Expiratory Phase, Respiratory Distress - Cardiovascular Exam Cardiovascular Exam: REGULAR RHYTHM, +S1, +S2. absent: Gallop, Rubs - GI/Abdominal Exam GI & Abdominal Exam: Soft, Normal Bowel Sounds. absent: Tenderness, Hyperactive Bowel Sounds - Extremities Exam Extremities Exam: Full ROM. absent: Joint Swelling, Pedal Edema, Tenderness - Back Exam Back Exam: NORMAL INSPECTION. absent: CVA tenderness (L), CVA tenderness (R), paraspinal tenderness - Neurological Exam Neurological Exam: Alert, Awake, Oriented x3 - Psychiatric Exam Psychiatric exam: Normal Affect, Normal Mood - Skin Skin Exam: Dry, Intact Assessment and Plan - Assessment and Plan (Free Text) Assessment: 67 F with a PMHx of asthma, arthritis, and vitamin C deficiency who presents with RLE ulcer/cellulitis and chronic venous changes b/l, found to be septic in ED, post code sepsis. Plan: 1. RLE cellulitis/ulcer s/p CODE SEPSIS secondary to Proteus Mirabilis and beta hemolytic group b strep - cont vancomycin day 6 and Azactam day 6 - afebrile - Leukocytosis resolved. - continue tylenol prn fevers - MV/Vitamin C and Zinc - ID consulted, rec's appreciated. -Podiatry consulted, rec's appreciated. - multipodus boot to be worn at all times as per podiatry -Patient most likely won't go to [facility] due to the approval taking multiple months per Social Work. Upon discharge will try and arrange with home services, pending Echo results. 2. Headache - continue fioricet PRN - avoid motrin at this time 3. Shortness of breath - continue duoneb PRN - O2 Sat >90% on room air - cont O2 NC PRN 5. Constipation - Continue Colace and Miralax ESCOBAR; patient reports 1 normal consistency BM yesterday. - Will continue to monitor. 6. UTI - Continue with Azactam currently day 6 7. Anemia likely 2/2 iron deficiency anemia -Continue Feosol -trend H/H 8. arthritis - continue motrin prn pain 9. vitamin C deficiency - continue MV and Vitamin C ordered GI/DVT ppx: heparin/protonix <Clemente Cabrera - Last Filed: 06/22/17 17:02> Objective - Vital Signs/Intake and Output Vital Signs (last 24 hours): Temp Pulse Resp BP Pulse Ox 98.2 F 85 20 152/67 H 95 06/22/17 16:23 06/22/17 16:23 06/22/17 16:23 06/22/17 16:23 06/22/17 16:23 - Medications Medications: Current Medications Acetaminophen (Tylenol 325mg Tab) 650 mg PO Q4 PRN PRN Reason: Fever >100.4 F Last Admin: 06/15/17 23:29 Dose: 650 mg Acetaminophen/Butalbital/Caffeine (Fioricet) 1 tab PO Q4H PRN PRN Reason: Headache Last Admin: 06/22/17 14:00 Dose: 1 tab Albuterol/Ipratropium (Duoneb 3 Mg/0.5 Mg (3 Ml) Ud) 3 ml IH [id number] PRN PRN Reason: Shortness of Breath Ascorbic Acid (Vitamin C 500 Mg Tab) 500 mg PO BID [facility] Last Admin: 06/22/17 10:50 Dose: 500 mg Docusate Sodium (Colace) 100 mg PO DAILY [facility] Last Admin: 06/22/17 10:50 Dose: 100 mg Ferrous Sulfate (Feosol) 324 mg PO TID [facility] Last Admin: 06/22/17 13:57 Dose: 324 mg Heparin Sodium (Porcine) (Heparin) 5,000 units SC Q12 ESCOBAR PRN Reason: Protocol Last Admin: 06/22/17 10:50 Dose: 5,000 units Vancomycin HCl (Vancomycin 1gm) 1 gm in 250 mls @ 167 mls/hr IVPB Q12H [facility]OBAR PRN Reason: Protocol Last Admin: 06/22/17 04:54 Dose: 167 mls/hr Metoprolol Tartrate (Lopressor) 25 mg PO BID [facility] Last Admin: 06/22/17 10:51 Dose: 25 mg Multivitamins/Minerals (Therapeutic-M Tab) 1 tab PO 0800 [facility] Last Admin: 06/22/17 08:36 Dose: 1 tab Nystatin (Nystop Topical Powder) 1 gm TOP DAILY [facility] Last Admin: 06/22/17 10:54 Dose: 1 gm Pantoprazole Sodium (Protonix Ec Tab) 40 mg PO DAILY [facility] Last Admin: 06/22/17 10:50 Dose: 40 mg Polyethylene Glycol (Miralax) 17 gm PO BID [facility] Last Admin: 06/22/17 10:53 Dose: 17 gm Zinc Sulfate (Zinc Sulfate 220 Mg Cap) 220 mg PO DAILY [facility] Last Admin: 06/22/17 10:55 Dose: 220 mg - Labs Labs: 06/22/17 06:59 06/22/17 07:00 PT 13.1 SECONDS (9.4-12.5) H 06/15/17 11:00 INR 1.19 (0.93-1.08) H 06/15/17 11:00 APTT 31.3 Seconds (25.1-36.5) 06/15/17 11:00 Attending/Attestation - Attestation I have personally seen and examined this patient.: Yes I have fully participated in the care of the patient.: Yes I have reviewed all pertinent clinical information, including history, physical exam and plan: Yes Notes (Text): I have seen and examined the patient with the resident. Agree with the above note with the following additions/ exceptions: Briefly this is 67 year old female with history of asthma, iron deficiency anemia, arthritis, obesity who was admitted for evaluation of bilateral lymphedema and RLE cellulitis with draining ulcer of right ankle. Cellulitis has resolved however slight edema remains there. Echo revelaed normalLVEF however diastolic function was not fully assessed as it was technically difficult study. Duplex negative for DVT. Multipodus boots on. Wound dressing was done by podiatry. Wound cultures reveal proteus and beta hemolytic group B. She also has EColi UTI. Continue vancomycin and azactam. Tomorrow is the last day of antibiotics. PT recommended TED. Discussed with CM in detail. Continue feosol and miralax. Continue vitamin C, MVI and zinc to promote wound healing. Continue nystatin powder for skin folds in bilateral lower extremities. Upon discharge patient will follow up in [facility] clinic. Dr Clemente Cabrera
--- NOTE | 2017-06-22 13:57 | CARD ---
APPROVED REPORT EXAM: Two-dimensional and M-mode echocardiogram with Doppler and color Doppler. INDICATION LV Function:SystolicDiastolic 2D DIMENSIONS Left Atrium (2D)4.1 (1.6-4.0cm)IVSd1.2 (0.7-1.1cm) LVDd4.9 (3.9-5.9cm)PWd1.3 (0.7-1.1cm) LVDs3.4 (2.5-4.0cm)FS (%) 30.3 % LVEF (%)57.5 (>50%) M-Mode DIMENSIONS Aortic Root3.10 (2.2-3.7cm)Aortic Cusp Exc.1.40 (1.5-2.0cm) Aortic Valve AoV Peak Ismyjbhy737.0cm/Jeremias Peak GR.15mmHg Mitral Valve E/A ratio0.0 TDI E/Lateral E'0.0E/Medial E'0.0 Tricuspid Valve TR Peak [id number] [id number] Peak Gr.28mmHg [id number] LEFT VENTRICLE The left ventricle is normal size. There is mild concentric left ventricular hypertrophy. The left ventricular function is normal. The left ventricular ejection fraction is within the normal range. There is normal LV segmental wall motion. RIGHT VENTRICLE The right ventricle is normal size. The right ventricular systolic function is normal. ATRIA The left atrium is mildly dilated. The right atrium size is normal. The interatrial septum is intact with no evidence for an atrial septal defect. AORTIC VALVE The aortic valve is normal in structure. No aortic regurgitation is present. There is no aortic valvular stenosis. MITRAL VALVE The mitral valve is normal in structure. There is no mitral valve regurgitation noted. TRICUSPID VALVE The tricuspid valve is normal in structure. There is mild tricuspid regurgitation. PULMONIC VALVE The pulmonic valve is not well visualized. GREAT VESSELS The aortic root is normal in size. The IVC is normal in size and collapses >50% with inspiration. PERICARDIAL EFFUSION There is no pleural effusion. There is no pericardial effusion. <Conclusion> Technically difficult study. Dilated LA. Mild concentric LVH. LV systolic function appears within normal limits. No obvious wall motion abnormality seen. Diastolic function not adequately assessed. Mild tricuspid regurgitation.
[2017-06-22] MEDS: Apap-Butalbital-Caffeine 325-50-40mg Tab PO PRN ×2 (14:00→23:03)
--- NOTE | 2017-06-22 16:38 | CP.PCM.PN ---
<Elijah Bai - Last Filed: 06/22/17 16:36> Subjective - Date & Time of Evaluation Date of Evaluation: 06/22/17 Time of Evaluation: 16:36 - Subjective Subjective: 67 y/o female seen at bedside with attending Dr. Cano right lower extremity cellulitis with swelling, lymphedema and superficial draining ulceration. Patient appears to be resting comfortably in her bed and denies any acute events overnight. Patient is AAOx3 and in NAD. Patient admits to pain on palpation to the right leg site of ulceration. Cellulitis appears resolved. Patient denies any F/C/N/V/CP/SOB at this time. Objective - Vital Signs/Intake and Output Vital Signs (last 24 hours): Temp Pulse Resp BP Pulse Ox 98.2 F 85 20 152/67 H 95 06/22/17 16:23 06/22/17 16:23 06/22/17 16:23 06/22/17 16:23 06/22/17 16:23 - Medications Medications: Current Medications Acetaminophen (Tylenol 325mg Tab) 650 mg PO Q4 PRN PRN Reason: Fever >100.4 F Last Admin: 06/15/17 23:29 Dose: 650 mg Acetaminophen/Butalbital/Caffeine (Fioricet) 1 tab PO Q4H PRN PRN Reason: Headache Last Admin: 06/22/17 14:00 Dose: 1 tab Albuterol/Ipratropium (Duoneb 3 Mg/0.5 Mg (3 Ml) Ud) 3 ml IH [id number] PRN PRN Reason: Shortness of Breath Ascorbic Acid (Vitamin C 500 Mg Tab) 500 mg PO BID [facility] Last Admin: 06/22/17 10:50 Dose: 500 mg Docusate Sodium (Colace) 100 mg PO DAILY [facility] Last Admin: 06/22/17 10:50 Dose: 100 mg Ferrous Sulfate (Feosol) 324 mg PO TID [facility] Last Admin: 06/22/17 13:57 Dose: 324 mg Heparin Sodium (Porcine) (Heparin) 5,000 units SC Q12 [facility] PRN Reason: Protocol Last Admin: 06/22/17 10:50 Dose: 5,000 units Vancomycin HCl (Vancomycin 1gm) 1 gm in 250 mls @ 167 mls/hr IVPB Q12H [facility] PRN Reason: Protocol Last Admin: 06/22/17 04:54 Dose: 167 mls/hr Metoprolol Tartrate (Lopressor) 25 mg PO BID [facility] Last Admin: 06/22/17 10:51 Dose: 25 mg Multivitamins/Minerals (Therapeutic-M Tab) 1 tab PO 0800 [facility] Last Admin: 06/22/17 08:36 Dose: 1 tab Nystatin (Nystop Topical Powder) 1 gm TOP DAILY [facility] Last Admin: 06/22/17 10:54 Dose: 1 gm Pantoprazole Sodium (Protonix Ec Tab) 40 mg PO DAILY [facility] Last Admin: 06/22/17 10:50 Dose: 40 mg Polyethylene Glycol (Miralax) 17 gm PO BID [facility] Last Admin: 06/22/17 10:53 Dose: 17 gm Zinc Sulfate (Zinc Sulfate 220 Mg Cap) 220 mg PO DAILY [facility] Last Admin: 06/22/17 10:55 Dose: 220 mg - Labs Labs: 06/22/17 06:59 06/22/17 07:00 PT 13.1 SECONDS (9.4-12.5) H 06/15/17 11:00 INR 1.19 (0.93-1.08) H 06/15/17 11:00 APTT 31.3 Seconds (25.1-36.5) 06/15/17 11:00 - Constitutional Appears: Well, Non-toxic, No Acute Distress - Extremities Exam Additional comments: Right lower extremity exam: Vasc: DP/PT pulses 2/4 B/L. +4 pitting edema to RLE distal to tibial tuberosity , +3 to LLE. Temperature gradient warm to warm on R, warm to cool on L. CFT < 3 sec to all digits Derm: Cellulitis to right leg appears resolved with no visible erythema. Approx 8cm x 6cm superficial ulceration which appears to have dermal layer with no active drainage. Malodor appears to be resolved. No purulent discharge noted. No tunneling or undermining noted. no PTB Neuro: Protective sensation grossly intact Ortho: Significant tenderness on palpation of right lower extremity, increased on elevation of leg off the bed - Neurological Exam Neurological Exam: Alert, Awake, Oriented x3 - Psychiatric Exam Psychiatric exam: Normal Affect, Normal Mood Assessment and Plan - Assessment and Plan (Free Text) Assessment: 67 y/o female with bilateral lymphedema and RLE cellulitis and swelling with draining ulceration to right medial ankle Plan: Patient seen and evaluated with attending Dr. Tariq Labs and vitals reviewed- afebrile, WBC 10.4 today Cultures (Final): Proteus species and Beta hemolytic GBS IV abx as per ID: Vancomycin and Aztreonam Extremity ultrasound negative for DVT to RLE Medial ankle ulceration cleansed with saline and 4x4 gauze Dressed wound with DSD Multipodus boots to be worn at all times when in bed Podiatry will continue to follow while in house <Buffy Cano - Last Filed: 06/28/17 14:45> Objective - Vital Signs/Intake and Output Vital Signs (last 24 hours): Temp Pulse Resp BP Pulse Ox 98.5 F 90 20 140/78 96 06/28/17 07:30 06/28/17 10:30 06/28/17 07:30 06/28/17 10:30 06/28/17 07:30 Intake and Output: 06/28/17 06/28/17 06:59 18:59 Intake Total 300 Balance 300 - Medications Medications: Current Medications Acetaminophen (Tylenol 325mg Tab) 650 mg PO Q4 PRN PRN Reason: Fever >100.4 F Last Admin: 06/15/17 23:29 Dose: 650 mg Acetaminophen/Butalbital/Caffeine (Fioricet) 1 tab PO Q4H PRN PRN Reason: Headache Last Admin: 06/27/17 11:16 Dose: 1 tab Albuterol/Ipratropium (Duoneb 3 Mg/0.5 Mg (3 Ml) Ud) 3 ml IH [id number] PRN PRN Reason: Shortness of Breath Last Admin: 06/26/17 23:20 Dose: 3 ml Ascorbic Acid (Vitamin C 500 Mg Tab) 500 mg PO BID [facility] Last Admin: 06/28/17 10:28 Dose: 500 mg Benzonatate (Tessalon Perles) 100 mg PO TID PRN PRN Reason: Cough Last Admin: 06/28/17 10:29 Dose: 100 mg Docusate Sodium (Colace) 100 mg PO DAILY [facility] Last Admin: 06/28/17 10:28 Dose: 100 mg Ferrous Sulfate (Feosol) 324 mg PO TID [facility] Last Admin: 06/28/17 10:29 Dose: 324 mg Guaifenesin (Robitussin) 100 mg PO Q4H PRN PRN Reason: Cough Last Admin: 06/28/17 04:08 Dose: 100 mg Heparin Sodium (Porcine) (Heparin) 5,000 units SC Q12 ESCOBAR PRN Reason: Protocol Last Admin: 06/28/17 10:31 Dose: 5,000 units Metoprolol Tartrate (Lopressor) 25 mg PO BID [facility] Last Admin: 06/28/17 10:30 Dose: 25 mg Multivitamins/Minerals (Therapeutic-M Tab) 1 tab PO 0800 [facility] Last Admin: 06/28/17 10:36 Dose: 1 tab Nystatin (Nystop Topical Powder) 1 gm TOP DAILY [facility] Last Admin: 06/28/17 10:34 Dose: 1 gm Pantoprazole Sodium (Protonix Ec Tab) 40 mg PO DAILY [facility] Last Admin: 06/28/17 10:29 Dose: 40 mg Polyethylene Glycol (Miralax) 17 gm PO BID [facility] Last Admin: 06/28/17 10:34 Dose: Not Given Potassium Chloride (Potassium Chloride Oral Soln) 20 meq PO DAILY [facility] Last Admin: 06/28/17 10:29 Dose: 20 meq Zinc Sulfate (Zinc Sulfate 220 Mg Cap) 220 mg PO DAILY [facility] Last Admin: 06/28/17 10:37 Dose: 220 mg - Labs Labs: 06/28/17 06:15 06/28/17 06:15 PT 13.1 SECONDS (9.4-12.5) H 06/15/17 11:00 INR 1.19 (0.93-1.08) H 06/15/17 11:00 APTT 31.3 Seconds (25.1-36.5) 06/15/17 11:00 Attending/Attestation - Attestation I have personally seen and examined this patient.: Yes I have fully participated in the care of the patient.: Yes I have reviewed all pertinent clinical information, including history, physical exam and plan: Yes
--- NOTE | 2017-06-22 17:44 | CP.PCM.PN ---
Subjective - Date & Time of Evaluation Date of Evaluation: 06/22/17 Time of Evaluation: 12:30 - Subjective Subjective: Infectious Disease Follow Up: June 22, 2017 67 yo female presenting with 3 weeks of RLE ulceration, swelling and leaking from the wound as well as multiple falls in the past 3 weeks. The patient has an extensive medical history of asthma, arthritis, vitamin C deficiency, and possible thyroid disease. Had headaches and episodes of SOB overnight. draining RLE ulceration... cellulitis improved/resolved. Multiple chronic medical issues. Objective - Vital Signs/Intake and Output Vital Signs (last 24 hours): Temp Pulse Resp BP Pulse Ox 98.2 F 85 20 152/67 H 95 06/22/17 16:23 06/22/17 17:00 06/22/17 16:23 06/22/17 17:00 06/22/17 16:23 - Medications Medications: Current Medications Acetaminophen (Tylenol 325mg Tab) 650 mg PO Q4 PRN PRN Reason: Fever >100.4 F Last Admin: 06/15/17 23:29 Dose: 650 mg Acetaminophen/Butalbital/Caffeine (Fioricet) 1 tab PO Q4H PRN PRN Reason: Headache Last Admin: 06/22/17 14:00 Dose: 1 tab Albuterol/Ipratropium (Duoneb 3 Mg/0.5 Mg (3 Ml) Ud) 3 ml IH [id number] PRN PRN Reason: Shortness of Breath Ascorbic Acid (Vitamin C 500 Mg Tab) 500 mg PO BID [facility] Last Admin: 06/22/17 17:00 Dose: 500 mg Docusate Sodium (Colace) 100 mg PO DAILY [facility] Last Admin: 06/22/17 10:50 Dose: 100 mg Ferrous Sulfate (Feosol) 324 mg PO TID [facility] Last Admin: 06/22/17 17:01 Dose: 324 mg Heparin Sodium (Porcine) (Heparin) 5,000 units SC Q12 [facility]OBAR PRN Reason: Protocol Last Admin: 06/22/17 10:50 Dose: 5,000 units Vancomycin HCl (Vancomycin 1gm) 1 gm in 250 mls @ 167 mls/hr IVPB Q12H [facility] PRN Reason: Protocol Last Admin: 06/22/17 17:00 Dose: 167 mls/hr Metoprolol Tartrate (Lopressor) 25 mg PO BID [facility] Last Admin: 06/22/17 17:00 Dose: 25 mg Multivitamins/Minerals (Therapeutic-M Tab) 1 tab PO 0800 [facility] Last Admin: 06/22/17 08:36 Dose: 1 tab Nystatin (Nystop Topical Powder) 1 gm TOP DAILY [facility] Last Admin: 06/22/17 10:54 Dose: 1 gm Pantoprazole Sodium (Protonix Ec Tab) 40 mg PO DAILY [facility] Last Admin: 06/22/17 10:50 Dose: 40 mg Polyethylene Glycol (Miralax) 17 gm PO BID [facility] Last Admin: 06/22/17 17:01 Dose: Not Given Zinc Sulfate (Zinc Sulfate 220 Mg Cap) 220 mg PO DAILY [facility] Last Admin: 06/22/17 10:55 Dose: 220 mg - Labs Labs: 06/22/17 06:59 06/22/17 07:00 PT 13.1 SECONDS (9.4-12.5) H 06/15/17 11:00 INR 1.19 (0.93-1.08) H 06/15/17 11:00 APTT 31.3 Seconds (25.1-36.5) 06/15/17 11:00 - Constitutional Appears: Non-toxic, No Acute Distress, Chronically Ill - Head Exam Head Exam: ATRAUMATIC, NORMOCEPHALIC Additional comments: marked hair loss. - Eye Exam Eye Exam: EOMI, PERRL Pupil Exam: NORMAL ACCOMODATION, PERRL - ENT Exam ENT Exam: Mucous Membranes Moist, Normal External Ear Exam, TM's Normal Bilaterally Additional comments: dentures - Respiratory Exam Respiratory Exam: Clear to Ausculation Bilateral, Wheezes, NORMAL BREATHING PATTERN. absent: Rales, Rhonchi - Cardiovascular Exam Cardiovascular Exam: REGULAR RHYTHM, RRR, +S1, +S2 - GI/Abdominal Exam GI & Abdominal Exam: Distended, Soft, Tenderness, Normal Bowel Sounds - Extremities Exam Extremities Exam: Joint Swelling, Pedal Edema Additional comments: RLE less swollen R ankle with ulcer - improving slowly b/l chronic venous changes tinea and chronic venous stasis changes. Signs of arthritis in joints of the hands. - Neurological Exam Neurological Exam: Alert, Awake, CN II-XII Intact, Oriented x3 - Psychiatric Exam Psychiatric exam: Normal Affect, Normal Mood Assessment and Plan - Assessment and Plan (Free Text) Assessment: 67 yo female with multiple medical issues with PCN allergy diagnosed as a teenager verified by an [employer]. The patient with leukocytosis. Consider use of Aztreonam for antibiotic coverage for now. Await cultures especially urine cultures. Diabetes and HTN history? Local wound care. Elevated ESR and C-reactive protein. Continue Vancomycin and Aztreonam for antibiotic coverage. UTI with E. coli sensitive to Azactam. Maintain vancomycin for cellulitis IV. For UTI for 5-7 days treatment. Nearing completion. Supportive care. Cellulitis appears improved. No additional issues. Thank you for allowing me to participate in the care of the patient, we will follow with you.
[2017-06-23] MEDS: Vancomycin 1gm in NS 250ml 1 GM/250 ML BAG IVPB SCH ×2 (06:04→17:43)
--- NOTE | 2017-06-23 06:40 | CP.PCM.PN ---
Subjective - Date & Time of Evaluation Date of Evaluation: 06/23/17 Time of Evaluation: 06:38 - Subjective Subjective: S:It was requested to insert a heparin lock. Patient has no acute symptoms now. Pertinent medical record reviewed. O: Last Vital Signs 3 Temp 98.2 F 06/22/17 16:23 Pulse 85 06/22/17 17:00 Resp 20 06/22/17 16:23 BP 152/67 H 06/22/17 17:00 Pulse Ox 95 06/22/17 16:23 Awake, alert, not in distres, obese. LUNGS:Normal breathing pattern. A:Poor venous access. Encounter for intravenous line placement. P: # 24 angiocath was inserted in left upper arm. Objective - Vital Signs/Intake and Output Vital Signs (last 24 hours): Temp Pulse Resp BP Pulse Ox 98.2 F 85 20 152/67 H 95 06/22/17 16:23 06/22/17 17:00 06/22/17 16:23 06/22/17 17:00 06/22/17 16:23 Intake and Output: 06/22/17 06/23/17 18:59 06:59 Intake Total 120 Balance 120 - Medications Medications: Current Medications Acetaminophen (Tylenol 325mg Tab) 650 mg PO Q4 PRN PRN Reason: Fever >100.4 F Last Admin: 06/15/17 23:29 Dose: 650 mg Acetaminophen/Butalbital/Caffeine (Fioricet) 1 tab PO Q4H PRN PRN Reason: Headache Last Admin: 06/22/17 23:03 Dose: 1 tab Albuterol/Ipratropium (Duoneb 3 Mg/0.5 Mg (3 Ml) Ud) 3 ml IH [id number] PRN PRN Reason: Shortness of Breath Ascorbic Acid (Vitamin C 500 Mg Tab) 500 mg PO BID [facility] Last Admin: 06/22/17 17:00 Dose: 500 mg Docusate Sodium (Colace) 100 mg PO DAILY [facility] Last Admin: 06/22/17 10:50 Dose: 100 mg Ferrous Sulfate (Feosol) 324 mg PO TID [facility] Last Admin: 06/22/17 17:01 Dose: 324 mg Heparin Sodium (Porcine) (Heparin) 5,000 units SC Q12 [facility] PRN Reason: Protocol Last Admin: 06/22/17 23:03 Dose: 5,000 units Vancomycin HCl (Vancomycin 1gm) 1 gm in 250 mls @ 167 mls/hr IVPB Q12H [facility] PRN Reason: Protocol Last Admin: 06/23/17 06:04 Dose: 167 mls/hr Metoprolol Tartrate (Lopressor) 25 mg PO BID [facility] Last Admin: 06/22/17 17:00 Dose: 25 mg Multivitamins/Minerals (Therapeutic-M Tab) 1 tab PO 0800 [facility] Last Admin: 06/22/17 08:36 Dose: 1 tab Nystatin (Nystop Topical Powder) 1 gm TOP DAILY [facility] Last Admin: 06/22/17 10:54 Dose: 1 gm Pantoprazole Sodium (Protonix Ec Tab) 40 mg PO DAILY [facility] Last Admin: 06/22/17 10:50 Dose: 40 mg Polyethylene Glycol (Miralax) 17 gm PO BID [facility] Last Admin: 06/22/17 17:01 Dose: Not Given Zinc Sulfate (Zinc Sulfate 220 Mg Cap) 220 mg PO DAILY [facility] Last Admin: 06/22/17 10:55 Dose: 220 mg - Labs Labs: 06/22/17 06:59 06/22/17 07:00 PT 13.1 SECONDS (9.4-12.5) H 06/15/17 11:00 INR 1.19 (0.93-1.08) H 06/15/17 11:00 APTT 31.3 Seconds (25.1-36.5) 06/15/17 11:00
[2017-06-23 07:50] LABS: BASO # 0.06 K/mm3 (0.0-2.0); BASO % 0.7 % (0.0-3.0); EOS # 0.9 (0.0-0.7); EOS % 10.1 % (1.5-5.0); GRAN # 5.56 (1.4-6.5); HEMOGLOBIN 8.5 g/dL (12.0-16.0); LYMPH # 1.5 (1.2-3.4); LYMPH % 16.4 % (22.0-35.0); MEAN CELL VOLUME 77.8 fl (80.0-105.0); MEAN CORPUSCULAR HGB CONC 29.6 g/dl (31.0-37.0); MEAN PLATELET VOLUME 7.7 fl (7.0-11.0); MONO # 0.9 (0.1-0.6); MONO % 9.8 % (1.0-6.0); RBC 3.69 10^6/uL (3.5-6.1); RED CELL DISTRIBUTION WIDTH 20.6 % (11.5-14.5); WHITE BLOOD COUNT 8.8 10^3/ul (4.5-11.0)
[2017-06-23 07:56] LABS: ALB/GLOB RATIO 0.7 (1.1-1.8); ALBUMIN 2.8 g/dL (3.0-4.8); ALT/SGPT 16 U/L (7-56); AST/SGOT 27 U/L (14-36); BLOOD UREA NITROGEN 11 mg/dL (7-21); CALCIUM 7.8 mg/dL (8.4-10.5); GFR AFRICAN-AMERICAN > 60; GFR NON-AFRICAN AMERICAN > 60
[2017-06-23] MEDS ORDERED: Potassium Chloride 20 mEq ER Tab PO ONE (08:50)
[2017-06-23] MEDS: Multivitamin With Minerals Tab PO SCH (09:14)
[2017-06-23] MEDS: POLYETHYLENE GLYCOL 3350 17 GM/Dose PACKET PO SCH ×2 (09:56→17:37)
[2017-06-23] MEDS: Pantoprazole 40 mg EC Tab PO SCH (09:59)
[2017-06-23] MEDS: Nystatin 100,000 Units/gm Topical Pow(15 gm) TOP SCH (10:01)
--- NOTE | 2017-06-23 12:22 | CP.PCM.PN ---
<MichaelFairfield - Last Filed: 06/23/17 15:27> Subjective - Date & Time of Evaluation Date of Evaluation: 06/23/17 Time of Evaluation: 08:20 - Subjective Subjective: Patient seen and examined at bedside. Per nursing no acute events occurred overnight. Patient reports feeling tired and some shortness of breath. The patient denies any chest pain, lightheadedness, dizziness, abdominal pain, dysuria, syncopal episodes, changes in vision, or any other complaints. Objective - Vital Signs/Intake and Output Vital Signs (last 24 hours): Temp Pulse Resp BP Pulse Ox 98.3 F 87 20 147/71 95 06/23/17 07:30 06/23/17 10:01 06/23/17 07:30 06/23/17 10:01 06/23/17 07:30 Intake and Output: 06/23/17 06/23/17 06:59 18:59 Intake Total 120 Balance 120 - Medications Medications: Current Medications Acetaminophen (Tylenol 325mg Tab) 650 mg PO Q4 PRN PRN Reason: Fever >100.4 F Last Admin: 06/15/17 23:29 Dose: 650 mg Acetaminophen/Butalbital/Caffeine (Fioricet) 1 tab PO Q4H PRN PRN Reason: Headache Last Admin: 06/22/17 23:03 Dose: 1 tab Albuterol/Ipratropium (Duoneb 3 Mg/0.5 Mg (3 Ml) Ud) 3 ml IH [id number] PRN PRN Reason: Shortness of Breath Ascorbic Acid (Vitamin C 500 Mg Tab) 500 mg PO BID [facility] Last Admin: 06/23/17 09:58 Dose: 500 mg Docusate Sodium (Colace) 100 mg PO DAILY [facility] Last Admin: 06/23/17 09:59 Dose: 100 mg Ferrous Sulfate (Feosol) 324 mg PO TID [facility] Last Admin: 06/23/17 10:01 Dose: 324 mg Heparin Sodium (Porcine) (Heparin) 5,000 units SC Q12 [facility] PRN Reason: Protocol Last Admin: 06/23/17 09:56 Dose: 5,000 units Vancomycin HCl (Vancomycin 1gm) 1 gm in 250 mls @ 167 mls/hr IVPB Q12H [facility] PRN Reason: Protocol Last Admin: 06/23/17 06:04 Dose: 167 mls/hr Metoprolol Tartrate (Lopressor) 25 mg PO BID [facility] Last Admin: 06/23/17 10:01 Dose: 25 mg Multivitamins/Minerals (Therapeutic-M Tab) 1 tab PO 0800 [facility] Last Admin: 06/23/17 09:14 Dose: 1 tab Nystatin (Nystop Topical Powder) 1 gm TOP DAILY [facility] Last Admin: 06/23/17 10:01 Dose: 1 gm Pantoprazole Sodium (Protonix Ec Tab) 40 mg PO DAILY [facility] Last Admin: 06/23/17 09:59 Dose: 40 mg Polyethylene Glycol (Miralax) 17 gm PO BID [facility] Last Admin: 06/23/17 09:56 Dose: 17 gm Zinc Sulfate (Zinc Sulfate 220 Mg Cap) 220 mg PO DAILY [facility] Last Admin: 06/23/17 10:00 Dose: 220 mg - Labs Labs: 06/23/17 07:30 06/23/17 07:30 PT 13.1 SECONDS (9.4-12.5) H 06/15/17 11:00 INR 1.19 (0.93-1.08) H 06/15/17 11:00 APTT 31.3 Seconds (25.1-36.5) 06/15/17 11:00 - Head Exam Head Exam: ATRAUMATIC, NORMAL INSPECTION, NORMOCEPHALIC - Eye Exam Eye Exam: EOMI, Normal appearance, PERRL. absent: Periorbital tenderness Pupil Exam: NORMAL ACCOMODATION, PERRL. absent: Irregular, Unequal - ENT Exam ENT Exam: Mucous Membranes Moist, Normal Exam - Neck Exam Neck Exam: Full ROM, Normal Inspection. absent: Lymphadenopathy, Thyromegaly - Respiratory Exam Respiratory Exam: Clear to Ausculation Bilateral, NORMAL BREATHING PATTERN. absent: Prolonged Expiratory Phase, Respiratory Distress - Cardiovascular Exam Cardiovascular Exam: REGULAR RHYTHM, +S1, +S2 - GI/Abdominal Exam GI & Abdominal Exam: Soft, Normal Bowel Sounds - Back Exam Back Exam: NORMAL INSPECTION. absent: CVA tenderness (L), CVA tenderness (R), paraspinal tenderness - Neurological Exam Neurological Exam: Alert, Awake, Normal Gait, Oriented x3 - Psychiatric Exam Psychiatric exam: Normal Affect, Normal Mood. absent: Anxious, Depressed - Skin Skin Exam: Dry, Intact Assessment and Plan - Assessment and Plan (Free Text) Assessment: 67 F with a PMHx of asthma, arthritis, and vitamin C deficiency who presents with RLE ulcer/cellulitis and chronic venous changes b/l, found to be septic in ED, post code sepsis. Plan: 1. RLE cellulitis/ulcer s/p CODE SEPSIS secondary to Proteus Mirabilis and beta hemolytic group b strep - cont vancomycin day 6 and Azactam day 6 - afebrile - Leukocytosis resolved. - continue tylenol prn fevers - MV/Vitamin C and Zinc - ID consulted, rec's appreciated. -Podiatry consulted, rec's appreciated. - multipodus boot to be worn at all times as per podiatry -Per Social work patient has no support to be discharged at this time. Sister is supposed to get Pension from a bank next week. Discharge to subacute is pending approval. 2. Headache - continue fioricet PRN - avoid motrin at this time 3. Shortness of breath - continue duoneb PRN - O2 Sat >90% on room air - cont O2 NC PRN 5. Constipation - Continue Colace and Miralax ESCOBAR; patient reports 1 normal consistency BM yesterday. - Will continue to monitor. 6. UTI - Continue with Azactam currently day 6 7. Anemia likely 2/2 iron deficiency anemia -Continue Feosol -trend H/H 8. arthritis - continue motrin prn pain 9. vitamin C deficiency - continue MV and Vitamin C ordered GI/DVT ppx: heparin/protonix <Clemente Cabrera - Last Filed: 06/23/17 16:37> Objective - Vital Signs/Intake and Output Vital Signs (last 24 hours): Temp Pulse Resp BP Pulse Ox 98.3 F 87 20 147/71 95 06/23/17 07:30 06/23/17 10:01 06/23/17 07:30 06/23/17 10:01 06/23/17 07:30 Intake and Output: 06/23/17 06/23/17 06:59 18:59 Intake Total 120 480 Balance 120 480 - Medications Medications: Current Medications Acetaminophen (Tylenol 325mg Tab) 650 mg PO Q4 PRN PRN Reason: Fever >100.4 F Last Admin: 06/15/17 23:29 Dose: 650 mg Acetaminophen/Butalbital/Caffeine (Fioricet) 1 tab PO Q4H PRN PRN Reason: Headache Last Admin: 06/22/17 23:03 Dose: 1 tab Albuterol/Ipratropium (Duoneb 3 Mg/0.5 Mg (3 Ml) Ud) 3 ml IH [id number] PRN PRN Reason: Shortness of Breath Ascorbic Acid (Vitamin C 500 Mg Tab) 500 mg PO BID [facility] Last Admin: 06/23/17 09:58 Dose: 500 mg Docusate Sodium (Colace) 100 mg PO DAILY [facility] Last Admin: 06/23/17 09:59 Dose: 100 mg Ferrous Sulfate (Feosol) 324 mg PO TID [facility] Last Admin: 06/23/17 14:30 Dose: 324 mg Heparin Sodium (Porcine) (Heparin) 5,000 units SC Q12 [facility] PRN Reason: Protocol Last Admin: 06/23/17 09:56 Dose: 5,000 units Vancomycin HCl (Vancomycin 1gm) 1 gm in 250 mls @ 167 mls/hr IVPB Q12H [facility] PRN Reason: Protocol Last Admin: 06/23/17 06:04 Dose: 167 mls/hr Metoprolol Tartrate (Lopressor) 25 mg PO BID [facility] Last Admin: 06/23/17 10:01 Dose: 25 mg Multivitamins/Minerals (Therapeutic-M Tab) 1 tab PO 0800 [facility] Last Admin: 06/23/17 09:14 Dose: 1 tab Nystatin (Nystop Topical Powder) 1 gm TOP DAILY [facility] Last Admin: 06/23/17 10:01 Dose: 1 gm Pantoprazole Sodium (Protonix Ec Tab) 40 mg PO DAILY [facility] Last Admin: 06/23/17 09:59 Dose: 40 mg Polyethylene Glycol (Miralax) 17 gm PO BID [facility] Last Admin: 06/23/17 09:56 Dose: 17 gm Zinc Sulfate (Zinc Sulfate 220 Mg Cap) 220 mg PO DAILY [facility] Last Admin: 06/23/17 10:00 Dose: 220 mg - Labs Labs: 06/23/17 07:30 06/23/17 07:30 PT 13.1 SECONDS (9.4-12.5) H 06/15/17 11:00 INR 1.19 (0.93-1.08) H 06/15/17 11:00 APTT 31.3 Seconds (25.1-36.5) 06/15/17 11:00 Attending/Attestation - Attestation I have personally seen and examined this patient.: Yes I have fully participated in the care of the patient.: Yes I have reviewed all pertinent clinical information, including history, physical exam and plan: Yes Notes (Text): I have seen and examined the patient with the resident. Agree with the above note with the following additions/ exceptions: Briefly this is 67 year old female with history of asthma, iron deficiency anemia, arthritis, obesity who was admitted for evaluation of bilateral lymphedema and RLE cellulitis with draining ulcer of right ankle. Cellulitis has resolved however slight edema remains there. Echo revealed normal LVEF however diastolic function was not fully assessed as it was technically difficult study. Duplex negative for DVT. Multipodus boots on. Wound dressing was done by podiatry. Wound cultures reveal proteus and beta hemolytic group B. She also has EColi UTI. Patient has completed vancomycin and azactam. PT recommended TED. Discussed with CM in detail. Awaiting placement. Continue feosol and miralax. Continue vitamin C, MVI and zinc to promote wound healing. Continue nystatin powder for skin folds in bilateral lower extremities. Upon discharge patient will follow up in [facility] clinic. Dr Clemente Cabrera
--- NOTE | 2017-06-23 14:26 | CP.PCM.PN ---
<Elijah Bai - Last Filed: 06/23/17 14:13> Subjective - Date & Time of Evaluation Date of Evaluation: 06/23/17 Time of Evaluation: 14:13 - Subjective Subjective: 67 y/o female seen at bedside for right lower extremity cellulitis with swelling , lymphedema and superficial draining ulceration. Patient appears to be resting comfortably in her bed and denies any acute events overnight. Patient is AAOx3 and in NAD. Patient states that she is feeling little tired more than usual. Cellulitis appears resolved. Patient denies any F/C/N/V/CP/SOB at this time. Objective - Vital Signs/Intake and Output Vital Signs (last 24 hours): Temp Pulse Resp BP Pulse Ox 98.3 F 87 20 147/71 95 06/23/17 07:30 06/23/17 10:01 06/23/17 07:30 06/23/17 10:01 06/23/17 07:30 Intake and Output: 06/23/17 06/23/17 06:59 18:59 Intake Total 120 Balance 120 - Medications Medications: Current Medications Acetaminophen (Tylenol 325mg Tab) 650 mg PO Q4 PRN PRN Reason: Fever >100.4 F Last Admin: 06/15/17 23:29 Dose: 650 mg Acetaminophen/Butalbital/Caffeine (Fioricet) 1 tab PO Q4H PRN PRN Reason: Headache Last Admin: 06/22/17 23:03 Dose: 1 tab Albuterol/Ipratropium (Duoneb 3 Mg/0.5 Mg (3 Ml) Ud) 3 ml IH [id number] PRN PRN Reason: Shortness of Breath Ascorbic Acid (Vitamin C 500 Mg Tab) 500 mg PO BID [facility] Last Admin: 06/23/17 09:58 Dose: 500 mg Docusate Sodium (Colace) 100 mg PO DAILY [facility] Last Admin: 06/23/17 09:59 Dose: 100 mg Ferrous Sulfate (Feosol) 324 mg PO TID [facility] Last Admin: 06/23/17 10:01 Dose: 324 mg Heparin Sodium (Porcine) (Heparin) 5,000 units SC Q12 [facility] PRN Reason: Protocol Last Admin: 06/23/17 09:56 Dose: 5,000 units Vancomycin HCl (Vancomycin 1gm) 1 gm in 250 mls @ 167 mls/hr IVPB Q12H [facility] PRN Reason: Protocol Last Admin: 06/23/17 06:04 Dose: 167 mls/hr Metoprolol Tartrate (Lopressor) 25 mg PO BID [facility] Last Admin: 06/23/17 10:01 Dose: 25 mg Multivitamins/Minerals (Therapeutic-M Tab) 1 tab PO 0800 [facility] Last Admin: 06/23/17 09:14 Dose: 1 tab Nystatin (Nystop Topical Powder) 1 gm TOP DAILY [facility] Last Admin: 06/23/17 10:01 Dose: 1 gm Pantoprazole Sodium (Protonix Ec Tab) 40 mg PO DAILY [facility] Last Admin: 06/23/17 09:59 Dose: 40 mg Polyethylene Glycol (Miralax) 17 gm PO BID [facility] Last Admin: 06/23/17 09:56 Dose: 17 gm Zinc Sulfate (Zinc Sulfate 220 Mg Cap) 220 mg PO DAILY [facility] Last Admin: 06/23/17 10:00 Dose: 220 mg - Labs Labs: 06/23/17 07:30 06/23/17 07:30 PT 13.1 SECONDS (9.4-12.5) H 06/15/17 11:00 INR 1.19 (0.93-1.08) H 06/15/17 11:00 APTT 31.3 Seconds (25.1-36.5) 06/15/17 11:00 - Constitutional Appears: Well, Non-toxic, No Acute Distress - Extremities Exam Extremities Exam: absent: Calf Tenderness Additional comments: Right lower extremity exam: Vasc: DP/PT pulses 2/4 B/L. +4 pitting edema to RLE distal to tibial tuberosity , +3 to LLE. Temperature gradient warm to warm on R, warm to cool on L. CFT < 3 sec to all digits Derm: Cellulitis to right leg appears resolved with no visible erythema. Approx 8cm x 6cm superficial ulceration which appears to have dermal layer with no active drainage. Malodor appears to be resolved. No purulent discharge noted. No tunneling or undermining noted. no PTB Neuro: Protective sensation grossly intact Ortho: Significant tenderness on palpation of right lower extremity, increased on elevation of leg off the bed - Neurological Exam Neurological Exam: Alert, Awake, Oriented x3 - Psychiatric Exam Psychiatric exam: Normal Affect, Normal Mood Assessment and Plan - Assessment and Plan (Free Text) Assessment: 67 y/o female with bilateral lymphedema and RLE cellulitis and swelling with superficial ulceration to right medial ankle Plan: Patient seen and evaluated Patient discussed in details with attending Dr. Cano Labs and vitals reviewed- afebrile, WBC 10.4 today Cultures (Final): Proteus species and Beta hemolytic GBS IV abx as per ID: Vancomycin and Aztreonam Extremity ultrasound negative for DVT to RLE Medial ankle ulceration cleansed with saline and 4x4 gauze Dressed wound with DSD - wound shows dermal layer and appears healed Multipodus boots to be worn at all times when in bed Podiatry will continue to follow while in house <Buffy Cano - Last Filed: 06/28/17 14:47> Objective - Vital Signs/Intake and Output Vital Signs (last 24 hours): Temp Pulse Resp BP Pulse Ox 98.5 F 90 20 140/78 96 06/28/17 07:30 06/28/17 10:30 06/28/17 07:30 06/28/17 10:30 06/28/17 07:30 Intake and Output: 06/28/17 06/28/17 06:59 18:59 Intake Total 300 Balance 300 - Medications Medications: Current Medications Acetaminophen (Tylenol 325mg Tab) 650 mg PO Q4 PRN PRN Reason: Fever >100.4 F Last Admin: 06/15/17 23:29 Dose: 650 mg Acetaminophen/Butalbital/Caffeine (Fioricet) 1 tab PO Q4H PRN PRN Reason: Headache Last Admin: 06/27/17 11:16 Dose: 1 tab Albuterol/Ipratropium (Duoneb 3 Mg/0.5 Mg (3 Ml) Ud) 3 ml IH [id number] PRN PRN Reason: Shortness of Breath Last Admin: 06/26/17 23:20 Dose: 3 ml Ascorbic Acid (Vitamin C 500 Mg Tab) 500 mg PO BID [facility] Last Admin: 06/28/17 10:28 Dose: 500 mg Benzonatate (Tessalon Perles) 100 mg PO TID PRN PRN Reason: Cough Last Admin: 06/28/17 10:29 Dose: 100 mg Docusate Sodium (Colace) 100 mg PO DAILY [facility] Last Admin: 06/28/17 10:28 Dose: 100 mg Ferrous Sulfate (Feosol) 324 mg PO TID [facility] Last Admin: 06/28/17 10:29 Dose: 324 mg Guaifenesin (Robitussin) 100 mg PO Q4H PRN PRN Reason: Cough Last Admin: 06/28/17 04:08 Dose: 100 mg Heparin Sodium (Porcine) (Heparin) 5,000 units SC Q12 [facility] PRN Reason: Protocol Last Admin: 06/28/17 10:31 Dose: 5,000 units Metoprolol Tartrate (Lopressor) 25 mg PO BID [facility] Last Admin: 06/28/17 10:30 Dose: 25 mg Multivitamins/Minerals (Therapeutic-M Tab) 1 tab PO 0800 [facility] Last Admin: 06/28/17 10:36 Dose: 1 tab Nystatin (Nystop Topical Powder) 1 gm TOP DAILY [facility] Last Admin: 06/28/17 10:34 Dose: 1 gm Pantoprazole Sodium (Protonix Ec Tab) 40 mg PO DAILY [facility] Last Admin: 06/28/17 10:29 Dose: 40 mg Polyethylene Glycol (Miralax) 17 gm PO BID [facility] Last Admin: 06/28/17 10:34 Dose: Not Given Potassium Chloride (Potassium Chloride Oral Soln) 20 meq PO DAILY [facility] Last Admin: 06/28/17 10:29 Dose: 20 meq Zinc Sulfate (Zinc Sulfate 220 Mg Cap) 220 mg PO DAILY [facility] Last Admin: 06/28/17 10:37 Dose: 220 mg - Labs Labs: 06/28/17 06:15 06/28/17 06:15 PT 13.1 SECONDS (9.4-12.5) H 06/15/17 11:00 INR 1.19 (0.93-1.08) H 06/15/17 11:00 APTT 31.3 Seconds (25.1-36.5) 06/15/17 11:00 Attending/Attestation - Attestation I have personally seen and examined this patient.: Yes I have fully participated in the care of the patient.: Yes I have reviewed all pertinent clinical information, including history, physical exam and plan: Yes
--- NOTE | 2017-06-23 19:21 | CP.PCM.PN ---
Subjective - Date & Time of Evaluation Date of Evaluation: 06/23/17 Time of Evaluation: 17:30 - Subjective Subjective: Infectious Disease Follow Up: June 23, 2017 67 yo female presenting with 3 weeks of RLE ulceration, swelling and leaking from the wound as well as multiple falls in the past 3 weeks. The patient has an extensive medical history of asthma, arthritis, vitamin C deficiency, and possible thyroid disease. Had headaches and episodes of SOB overnight. draining RLE ulceration... cellulitis improved/resolved. Multiple chronic medical issues. Feeling tired today. Objective - Vital Signs/Intake and Output Vital Signs (last 24 hours): Temp Pulse Resp BP Pulse Ox 98.3 F 87 20 147/71 95 06/23/17 07:30 06/23/17 10:01 06/23/17 07:30 06/23/17 10:01 06/23/17 07:30 Intake and Output: 06/23/17 06/24/17 18:59 06:59 Intake Total 480 Balance 480 - Medications Medications: Current Medications Acetaminophen (Tylenol 325mg Tab) 650 mg PO Q4 PRN PRN Reason: Fever >100.4 F Last Admin: 06/15/17 23:29 Dose: 650 mg Acetaminophen/Butalbital/Caffeine (Fioricet) 1 tab PO Q4H PRN PRN Reason: Headache Last Admin: 06/22/17 23:03 Dose: 1 tab Albuterol/Ipratropium (Duoneb 3 Mg/0.5 Mg (3 Ml) Ud) 3 ml IH [id number] PRN PRN Reason: Shortness of Breath Ascorbic Acid (Vitamin C 500 Mg Tab) 500 mg PO BID [facility] Last Admin: 06/23/17 17:43 Dose: 500 mg Docusate Sodium (Colace) 100 mg PO DAILY [facility] Last Admin: 06/23/17 09:59 Dose: 100 mg Ferrous Sulfate (Feosol) 324 mg PO TID [facility] Last Admin: 06/23/17 17:43 Dose: 324 mg Heparin Sodium (Porcine) (Heparin) 5,000 units SC Q12 [facility] PRN Reason: Protocol Last Admin: 06/23/17 09:56 Dose: 5,000 units Vancomycin HCl (Vancomycin 1gm) 1 gm in 250 mls @ 167 mls/hr IVPB Q12H [facility] PRN Reason: Protocol Last Admin: 06/23/17 17:43 Dose: 167 mls/hr Metoprolol Tartrate (Lopressor) 25 mg PO BID [facility] Last Admin: 06/23/17 17:43 Dose: 25 mg Multivitamins/Minerals (Therapeutic-M Tab) 1 tab PO 0800 [facility] Last Admin: 06/23/17 09:14 Dose: 1 tab Nystatin (Nystop Topical Powder) 1 gm TOP DAILY [facility] Last Admin: 06/23/17 10:01 Dose: 1 gm Pantoprazole Sodium (Protonix Ec Tab) 40 mg PO DAILY [facility] Last Admin: 06/23/17 09:59 Dose: 40 mg Polyethylene Glycol (Miralax) 17 gm PO BID [facility] Last Admin: 06/23/17 17:37 Dose: Not Given Zinc Sulfate (Zinc Sulfate 220 Mg Cap) 220 mg PO DAILY [facility] Last Admin: 06/23/17 10:00 Dose: 220 mg - Labs Labs: 06/23/17 07:30 06/23/17 07:30 PT 13.1 SECONDS (9.4-12.5) H 06/15/17 11:00 INR 1.19 (0.93-1.08) H 06/15/17 11:00 APTT 31.3 Seconds (25.1-36.5) 06/15/17 11:00 - Constitutional Appears: Non-toxic, No Acute Distress, Chronically Ill - Head Exam Head Exam: ATRAUMATIC, NORMOCEPHALIC Additional comments: marked hair loss - Eye Exam Eye Exam: EOMI, PERRL Pupil Exam: NORMAL ACCOMODATION, PERRL - ENT Exam ENT Exam: Mucous Membranes Moist, Normal External Ear Exam, TM's Normal Bilaterally Additional comments: dentures - Respiratory Exam Respiratory Exam: Clear to Ausculation Bilateral, NORMAL BREATHING PATTERN. absent: Rales, Rhonchi, Wheezes - Cardiovascular Exam Cardiovascular Exam: REGULAR RHYTHM, RRR, +S1, +S2 - GI/Abdominal Exam GI & Abdominal Exam: Distended, Soft, Normal Bowel Sounds. absent: Tenderness - Extremities Exam Extremities Exam: Joint Swelling, Pedal Edema Additional comments: RLE less swollen R ankle with ulcer - improving slowly b/l chronic venous changes tinea and chronic venous stasis changes. Signs of arthritis in joints of the hands. - Neurological Exam Neurological Exam: Alert, Awake, CN II-XII Intact, Oriented x3 - Psychiatric Exam Psychiatric exam: Normal Affect, Normal Mood Assessment and Plan - Assessment and Plan (Free Text) Assessment: 67 yo female with multiple medical issues with PCN allergy diagnosed as a teenager verified by an [employer]. The patient with leukocytosis. Consider use of Aztreonam for antibiotic coverage for now. Await cultures especially urine cultures. Diabetes and HTN history? Local wound care. Elevated ESR and C-reactive protein. Continue Vancomycin and Aztreonam for antibiotic coverage. UTI with E. coli sensitive to Azactam. Maintain vancomycin for cellulitis IV. For UTI for 5-7 days treatment. Completed. Supportive care. Cellulitis appears improved. No additional issues. Thank you for allowing me to participate in the care of the patient, we will follow with you.
[2017-06-24] MEDS: Vancomycin 1gm in NS 250ml 1 GM/250 ML BAG IVPB SCH ×2 (05:54→17:26)
[2017-06-24] MEDS: Multivitamin With Minerals Tab PO SCH (08:36)
[2017-06-24 09:23] LABS: BASO # 0.07 K/mm3 (0.0-2.0); BASO % 0.7 % (0.0-3.0); EOS % 9.8 % (1.5-5.0); GRAN # 6.52 (1.4-6.5); GRAN % 65.5 % (50.0-68.0); HEMOGLOBIN 8.8 g/dL (12.0-16.0); LYMPH # 1.4 (1.2-3.4); LYMPH % 14.3 % (22.0-35.0); MEAN CELL VOLUME 77.8 fl (80.0-105.0); MEAN CORPUSCULAR HEMOGLOBIN 23.2 pg (25.0-35.0); MEAN CORPUSCULAR HGB CONC 29.8 g/dl (31.0-37.0); MEAN PLATELET VOLUME 7.9 fl (7.0-11.0); MONO % 9.7 % (1.0-6.0); RBC 3.79 10^6/uL (3.5-6.1); RED CELL DISTRIBUTION WIDTH 20.9 % (11.5-14.5)
[2017-06-24 09:24] LABS: ALB/GLOB RATIO 0.8 (1.1-1.8); ALBUMIN 2.9 g/dL (3.0-4.8); ALT/SGPT 27 U/L (7-56); AST/SGOT 34 U/L (14-36); BLOOD UREA NITROGEN 8 mg/dL (7-21); CALCIUM 8.1 mg/dL (8.4-10.5); GFR AFRICAN-AMERICAN > 60; GFR NON-AFRICAN AMERICAN > 60
[2017-06-24] MEDS: Pantoprazole 40 mg EC Tab PO SCH (10:17)
[2017-06-24] MEDS: POLYETHYLENE GLYCOL 3350 17 GM/Dose PACKET PO SCH ×2 (10:17→17:58)
--- NOTE | 2017-06-24 11:00 | CP.PCM.PN ---
<BaiCorbinlaurieashok - Last Filed: 06/24/17 10:56> Subjective - Date & Time of Evaluation Date of Evaluation: 06/24/17 Time of Evaluation: 10:56 - Subjective Subjective: 67 y/o female seen at bedside for right lower extremity cellulitis with swelling , lymphedema and superficial draining ulceration. Patient was seen while in bed receiving a bath by the aid. Patient is AAOx3 and in NAD. Patient denied of any acute overnight events. Patient denied of any pain in her bilateral LE. Patient denies of any other complains at this time. Objective - Vital Signs/Intake and Output Vital Signs (last 24 hours): Temp Pulse Resp BP Pulse Ox 98.2 F 88 19 150/78 96 06/24/17 07:30 06/24/17 07:30 06/24/17 07:30 06/24/17 07:30 06/24/17 07:30 Intake and Output: 06/24/17 06/24/17 06:59 18:59 Intake Total 1120 Balance 1120 - Medications Medications: Current Medications Acetaminophen (Tylenol 325mg Tab) 650 mg PO Q4 PRN PRN Reason: Fever >100.4 F Last Admin: 06/15/17 23:29 Dose: 650 mg Acetaminophen/Butalbital/Caffeine (Fioricet) 1 tab PO Q4H PRN PRN Reason: Headache Last Admin: 06/22/17 23:03 Dose: 1 tab Albuterol/Ipratropium (Duoneb 3 Mg/0.5 Mg (3 Ml) Ud) 3 ml IH [id number] PRN PRN Reason: Shortness of Breath Ascorbic Acid (Vitamin C 500 Mg Tab) 500 mg PO BID [facility] Last Admin: 06/24/17 10:28 Dose: Not Given Docusate Sodium (Colace) 100 mg PO DAILY [facility] Last Admin: 06/24/17 10:17 Dose: 100 mg Ferrous Sulfate (Feosol) 324 mg PO TID [facility] Last Admin: 06/24/17 10:17 Dose: 324 mg Heparin Sodium (Porcine) (Heparin) 5,000 units SC Q12 [facility] PRN Reason: Protocol Last Admin: 06/24/17 10:17 Dose: 5,000 units Vancomycin HCl (Vancomycin 1gm) 1 gm in 250 mls @ 167 mls/hr IVPB Q12H [facility] PRN Reason: Protocol Last Admin: 06/24/17 05:54 Dose: 167 mls/hr Metoprolol Tartrate (Lopressor) 25 mg PO BID [facility] Last Admin: 06/24/17 10:17 Dose: 25 mg Multivitamins/Minerals (Therapeutic-M Tab) 1 tab PO 0800 [facility] Last Admin: 06/24/17 08:36 Dose: 1 tab Nystatin (Nystop Topical Powder) 1 gm TOP DAILY [facility] Last Admin: 06/23/17 10:01 Dose: 1 gm Pantoprazole Sodium (Protonix Ec Tab) 40 mg PO DAILY [facility] Last Admin: 06/24/17 10:17 Dose: 40 mg Polyethylene Glycol (Miralax) 17 gm PO BID [facility] Last Admin: 06/23/17 17:37 Dose: Not Given Zinc Sulfate (Zinc Sulfate 220 Mg Cap) 220 mg PO DAILY [facility] Last Admin: 06/24/17 10:17 Dose: 220 mg - Labs Labs: 06/24/17 06:55 06/24/17 06:55 PT 13.1 SECONDS (9.4-12.5) H 06/15/17 11:00 INR 1.19 (0.93-1.08) H 06/15/17 11:00 APTT 31.3 Seconds (25.1-36.5) 06/15/17 11:00 - Constitutional Appears: Well, Non-toxic, No Acute Distress - Extremities Exam Additional comments: Patient's dressing is clean, dry and intact. She is seen with multipodus boots on bilaterally. - Neurological Exam Neurological Exam: Alert, Awake, Oriented x3 - Psychiatric Exam Psychiatric exam: Normal Affect, Normal Mood Assessment and Plan - Assessment and Plan (Free Text) Assessment: 67 y/o female with bilateral lymphedema and RLE cellulitis and swelling with superficial ulceration to right medial ankle Plan: Patient seen and evaluated Patient discussed in details with attending Dr. Cano Labs and vitals reviewed- afebrile, WBC 10.0 today Cultures (Final): Proteus species and Beta hemolytic GBS IV abx as per ID: Vancomycin and Aztreonam Extremity ultrasound negative for DVT to RLE Dressing is clean, dry and intact Multipodus boots to be worn at all times when in bed Podiatry will continue to follow while in house <Buffy Cano - Last Filed: 06/28/17 14:49> Objective - Vital Signs/Intake and Output Vital Signs (last 24 hours): Temp Pulse Resp BP Pulse Ox 98.5 F 90 20 140/78 96 06/28/17 07:30 06/28/17 10:30 06/28/17 07:30 06/28/17 10:30 06/28/17 07:30 Intake and Output: 06/28/17 06/28/17 06:59 18:59 Intake Total 300 Balance 300 - Medications Medications: Current Medications Acetaminophen (Tylenol 325mg Tab) 650 mg PO Q4 PRN PRN Reason: Fever >100.4 F Last Admin: 06/15/17 23:29 Dose: 650 mg Acetaminophen/Butalbital/Caffeine (Fioricet) 1 tab PO Q4H PRN PRN Reason: Headache Last Admin: 06/27/17 11:16 Dose: 1 tab Albuterol/Ipratropium (Duoneb 3 Mg/0.5 Mg (3 Ml) Ud) 3 ml IH [id number] PRN PRN Reason: Shortness of Breath Last Admin: 06/26/17 23:20 Dose: 3 ml Ascorbic Acid (Vitamin C 500 Mg Tab) 500 mg PO BID [facility] Last Admin: 06/28/17 10:28 Dose: 500 mg Benzonatate (Tessalon Perles) 100 mg PO TID PRN PRN Reason: Cough Last Admin: 06/28/17 10:29 Dose: 100 mg Docusate Sodium (Colace) 100 mg PO DAILY [facility] Last Admin: 06/28/17 10:28 Dose: 100 mg Ferrous Sulfate (Feosol) 324 mg PO TID [facility] Last Admin: 06/28/17 10:29 Dose: 324 mg Guaifenesin (Robitussin) 100 mg PO Q4H PRN PRN Reason: Cough Last Admin: 06/28/17 04:08 Dose: 100 mg Heparin Sodium (Porcine) (Heparin) 5,000 units SC Q12 [facility] PRN Reason: Protocol Last Admin: 06/28/17 10:31 Dose: 5,000 units Metoprolol Tartrate (Lopressor) 25 mg PO BID [facility] Last Admin: 06/28/17 10:30 Dose: 25 mg Multivitamins/Minerals (Therapeutic-M Tab) 1 tab PO 0800 [facility] Last Admin: 06/28/17 10:36 Dose: 1 tab Nystatin (Nystop Topical Powder) 1 gm TOP DAILY [facility] Last Admin: 06/28/17 10:34 Dose: 1 gm Pantoprazole Sodium (Protonix Ec Tab) 40 mg PO DAILY [facility] Last Admin: 06/28/17 10:29 Dose: 40 mg Polyethylene Glycol (Miralax) 17 gm PO BID [facility] Last Admin: 06/28/17 10:34 Dose: Not Given Potassium Chloride (Potassium Chloride Oral Soln) 20 meq PO DAILY [facility] Last Admin: 06/28/17 10:29 Dose: 20 meq Zinc Sulfate (Zinc Sulfate 220 Mg Cap) 220 mg PO DAILY [facility] Last Admin: 06/28/17 10:37 Dose: 220 mg - Labs Labs: 06/28/17 06:15 06/28/17 06:15 PT 13.1 SECONDS (9.4-12.5) H 06/15/17 11:00 INR 1.19 (0.93-1.08) H 06/15/17 11:00 APTT 31.3 Seconds (25.1-36.5) 06/15/17 11:00 Attending/Attestation - Attestation I have personally seen and examined this patient.: Yes I have fully participated in the care of the patient.: Yes I have reviewed all pertinent clinical information, including history, physical exam and plan: Yes
--- NOTE | 2017-06-24 11:52 | CP.PCM.PN ---
<Yonatan Rodriguez - Last Filed: 06/24/17 15:40> Subjective - Date & Time of Evaluation Date of Evaluation: 06/24/17 Time of Evaluation: 09:52 - Subjective Subjective: Patient seen and examined at bedside. Per nursing no acute events occurred overnight. The patient reports not sleeping well overnight. The patient denies any chest pain, shortness of breath, nausea, vomiting, changes in vision, lightheadedness, dizziness, abdominal pain, or any other complaints. Objective - Vital Signs/Intake and Output Vital Signs (last 24 hours): Temp Pulse Resp BP Pulse Ox 98.2 F 88 19 150/78 96 06/24/17 07:30 06/24/17 07:30 06/24/17 07:30 06/24/17 07:30 06/24/17 07:30 Intake and Output: 06/24/17 06/24/17 06:59 18:59 Intake Total 1120 Balance 1120 - Medications Medications: Current Medications Acetaminophen (Tylenol 325mg Tab) 650 mg PO Q4 PRN PRN Reason: Fever >100.4 F Last Admin: 06/15/17 23:29 Dose: 650 mg Acetaminophen/Butalbital/Caffeine (Fioricet) 1 tab PO Q4H PRN PRN Reason: Headache Last Admin: 06/22/17 23:03 Dose: 1 tab Albuterol/Ipratropium (Duoneb 3 Mg/0.5 Mg (3 Ml) Ud) 3 ml IH [id number] PRN PRN Reason: Shortness of Breath Ascorbic Acid (Vitamin C 500 Mg Tab) 500 mg PO BID [facility] Last Admin: 06/24/17 10:28 Dose: Not Given Docusate Sodium (Colace) 100 mg PO DAILY [facility] Last Admin: 06/24/17 10:17 Dose: 100 mg Ferrous Sulfate (Feosol) 324 mg PO TID [facility] Last Admin: 06/24/17 10:17 Dose: 324 mg Heparin Sodium (Porcine) (Heparin) 5,000 units SC Q12 ESCOBAR PRN Reason: Protocol Last Admin: 06/24/17 10:17 Dose: 5,000 units Vancomycin HCl (Vancomycin 1gm) 1 gm in 250 mls @ 167 mls/hr IVPB Q12H ESCOBAR PRN Reason: Protocol Last Admin: 06/24/17 05:54 Dose: 167 mls/hr Metoprolol Tartrate (Lopressor) 25 mg PO BID [facility] Last Admin: 06/24/17 10:17 Dose: 25 mg Multivitamins/Minerals (Therapeutic-M Tab) 1 tab PO 0800 [facility] Last Admin: 06/24/17 08:36 Dose: 1 tab Nystatin (Nystop Topical Powder) 1 gm TOP DAILY [facility] Last Admin: 06/23/17 10:01 Dose: 1 gm Pantoprazole Sodium (Protonix Ec Tab) 40 mg PO DAILY [facility] Last Admin: 06/24/17 10:17 Dose: 40 mg Polyethylene Glycol (Miralax) 17 gm PO BID [facility] Last Admin: 06/23/17 17:37 Dose: Not Given Zinc Sulfate (Zinc Sulfate 220 Mg Cap) 220 mg PO DAILY [facility] Last Admin: 06/24/17 10:17 Dose: 220 mg - Labs Labs: 06/24/17 06:55 06/24/17 06:55 PT 13.1 SECONDS (9.4-12.5) H 06/15/17 11:00 INR 1.19 (0.93-1.08) H 06/15/17 11:00 APTT 31.3 Seconds (25.1-36.5) 06/15/17 11:00 - Head Exam Head Exam: ATRAUMATIC, NORMAL INSPECTION, NORMOCEPHALIC - Eye Exam Eye Exam: EOMI, Normal appearance, PERRL. absent: Nystagmus, Periorbital tenderness Pupil Exam: NORMAL ACCOMODATION, PERRL. absent: Irregular, Unequal - ENT Exam ENT Exam: Mucous Membranes Moist, Normal Exam - Neck Exam Neck Exam: Normal Inspection. absent: Lymphadenopathy, Thyromegaly - Respiratory Exam Respiratory Exam: Clear to Ausculation Bilateral, NORMAL BREATHING PATTERN. absent: Chest Wall Tenderness, Prolonged Expiratory Phase, Respiratory Distress - Cardiovascular Exam Cardiovascular Exam: REGULAR RHYTHM, RRR, +S1, +S2. absent: Gallop, Rubs - GI/Abdominal Exam GI & Abdominal Exam: Soft, Normal Bowel Sounds. absent: Tenderness, Hyperactive Bowel Sounds - Extremities Exam Extremities Exam: Full ROM. absent: Joint Swelling, Pedal Edema - Back Exam Back Exam: NORMAL INSPECTION. absent: CVA tenderness (L), CVA tenderness (R), paraspinal tenderness - Neurological Exam Neurological Exam: Alert, Awake, Oriented x3 - Psychiatric Exam Psychiatric exam: Normal Affect, Normal Mood - Skin Skin Exam: Dry, Intact, Normal Color Assessment and Plan - Assessment and Plan (Free Text) Assessment: 67 F with a PMHx of asthma, arthritis, and vitamin C deficiency who presents with RLE ulcer/cellulitis and chronic venous changes b/l, found to be septic in ED, post code sepsis. Plan: 1. RLE cellulitis/ulcer s/p CODE SEPSIS secondary to Proteus Mirabilis and beta hemolytic group b strep - cont vancomycin day 6 - afebrile - Leukocytosis resolved. - continue tylenol prn fevers - MV/Vitamin C and Zinc - ID consulted, rec's appreciated. - Out of bed to chair as tolerated. -Podiatry consulted, rec's appreciated. - multipodus boot to be worn at all times as per podiatry -Per Social work patient has no support to be discharged at this time. Sister is supposed to get Pension from a bank next week. Discharge to subacute is pending approval. 2. Headache - continue fioricet PRN - avoid motrin at this time 3. Shortness of breath - continue duoneb PRN - O2 Sat >90% on room air - cont O2 NC PRN 5. Constipation - Continue Colace and Miralax ESCOBAR; patient reports 1 normal consistency BM yesterday. - Will continue to monitor. 6. UTI - Completed Azactam. 7. Anemia likely 2/2 iron deficiency anemia -Continue Feosol -trend H/H 8. arthritis - continue motrin prn pain 9. vitamin C deficiency - continue MV and Vitamin C ordered GI/DVT ppx: heparin/protonix <Clemente Cabrera - Last Filed: 06/24/17 17:27> Objective - Vital Signs/Intake and Output Vital Signs (last 24 hours): Temp Pulse Resp BP Pulse Ox 97.9 F 86 18 146/67 97 06/24/17 16:30 06/24/17 16:30 06/24/17 16:30 06/24/17 16:30 06/24/17 16:30 Intake and Output: 06/24/17 06/24/17 06:59 18:59 Intake Total 1120 Balance 1120 - Medications Medications: Current Medications Acetaminophen (Tylenol 325mg Tab) 650 mg PO Q4 PRN PRN Reason: Fever >100.4 F Last Admin: 06/15/17 23:29 Dose: 650 mg Acetaminophen/Butalbital/Caffeine (Fioricet) 1 tab PO Q4H PRN PRN Reason: Headache Last Admin: 06/22/17 23:03 Dose: 1 tab Albuterol/Ipratropium (Duoneb 3 Mg/0.5 Mg (3 Ml) Ud) 3 ml IH [id number] PRN PRN Reason: Shortness of Breath Ascorbic Acid (Vitamin C 500 Mg Tab) 500 mg PO BID [facility] Last Admin: 06/24/17 10:28 Dose: Not Given Docusate Sodium (Colace) 100 mg PO DAILY [facility] Last Admin: 06/24/17 10:17 Dose: 100 mg Ferrous Sulfate (Feosol) 324 mg PO TID [facility] Last Admin: 06/24/17 13:31 Dose: 324 mg Heparin Sodium (Porcine) (Heparin) 5,000 units SC Q12 ESCOBAR PRN Reason: Protocol Last Admin: 06/24/17 10:17 Dose: 5,000 units Vancomycin HCl (Vancomycin 1gm) 1 gm in 250 mls @ 167 mls/hr IVPB Q12H ESCOBAR PRN Reason: Protocol Last Admin: 06/24/17 05:54 Dose: 167 mls/hr Metoprolol Tartrate (Lopressor) 25 mg PO BID [facility] Last Admin: 06/24/17 10:17 Dose: 25 mg Multivitamins/Minerals (Therapeutic-M Tab) 1 tab PO 0800 [facility] Last Admin: 06/24/17 08:36 Dose: 1 tab Nystatin (Nystop Topical Powder) 1 gm TOP DAILY [facility] Last Admin: 06/23/17 10:01 Dose: 1 gm Pantoprazole Sodium (Protonix Ec Tab) 40 mg PO DAILY [facility] Last Admin: 06/24/17 10:17 Dose: 40 mg Polyethylene Glycol (Miralax) 17 gm PO BID [facility] Last Admin: 06/23/17 17:37 Dose: Not Given Zinc Sulfate (Zinc Sulfate 220 Mg Cap) 220 mg PO DAILY [facility] Last Admin: 06/24/17 10:17 Dose: 220 mg - Labs Labs: 06/24/17 06:55 06/24/17 06:55 PT 13.1 SECONDS (9.4-12.5) H 06/15/17 11:00 INR 1.19 (0.93-1.08) H 06/15/17 11:00 APTT 31.3 Seconds (25.1-36.5) 06/15/17 11:00 Attending/Attestation - Attestation I have personally seen and examined this patient.: Yes I have fully participated in the care of the patient.: Yes I have reviewed all pertinent clinical information, including history, physical exam and plan: Yes Notes (Text): I have seen and examined the patient with the resident. Agree with the above note with the following additions/ exceptions: Briefly this is 67 year old female with history of asthma, iron deficiency anemia, arthritis, obesity who was admitted for evaluation of bilateral lymphedema and RLE cellulitis with draining ulcer of right ankle. Cellulitis has resolved. Echo revealed normal LVEF however diastolic function was not fully assessed as it was technically difficult study. Duplex negative for DVT. Multipodus boots on. Wound dressing was done by podiatry. Wound cultures reveal proteus and beta hemolytic group B. She also has EColi UTI. Patient has completed vancomycin and azactam. PT recommended TED. Discussed with CM in detail. Awaiting placement. Continue feosol and miralax. Continue vitamin C, MVI and zinc to promote wound healing. Continue nystatin powder for skin folds in bilateral lower extremities and also underneath the breast. Upon discharge patient will follow up in [facility] clinic. Dr lCemente Cabrera
--- NOTE | 2017-06-24 12:27 | CP.PCM.PN ---
Subjective - Date & Time of Evaluation Date of Evaluation: 06/24/17 Time of Evaluation: 11:15 - Subjective Subjective: Infectious Disease Follow Up: June 24, 2017 67 yo female presenting with 3 weeks of RLE ulceration, swelling and leaking from the wound as well as multiple falls in the past 3 weeks. The patient has an extensive medical history of asthma, arthritis, vitamin C deficiency, and possible thyroid disease. Had headaches and episodes of SOB overnight. draining RLE ulceration... cellulitis improved/resolved. Multiple chronic medical issues. Feeling tired today. Objective - Vital Signs/Intake and Output Vital Signs (last 24 hours): Temp Pulse Resp BP Pulse Ox 98.2 F 88 19 150/78 96 06/24/17 07:30 06/24/17 07:30 06/24/17 07:30 06/24/17 07:30 06/24/17 07:30 Intake and Output: 06/24/17 06/24/17 06:59 18:59 Intake Total 1120 Balance 1120 - Medications Medications: Current Medications Acetaminophen (Tylenol 325mg Tab) 650 mg PO Q4 PRN PRN Reason: Fever >100.4 F Last Admin: 06/15/17 23:29 Dose: 650 mg Acetaminophen/Butalbital/Caffeine (Fioricet) 1 tab PO Q4H PRN PRN Reason: Headache Last Admin: 06/22/17 23:03 Dose: 1 tab Albuterol/Ipratropium (Duoneb 3 Mg/0.5 Mg (3 Ml) Ud) 3 ml IH [id number] PRN PRN Reason: Shortness of Breath Ascorbic Acid (Vitamin C 500 Mg Tab) 500 mg PO BID [facility] Last Admin: 06/24/17 10:28 Dose: Not Given Docusate Sodium (Colace) 100 mg PO DAILY [facility] Last Admin: 06/24/17 10:17 Dose: 100 mg Ferrous Sulfate (Feosol) 324 mg PO TID [facility] Last Admin: 06/24/17 10:17 Dose: 324 mg Heparin Sodium (Porcine) (Heparin) 5,000 units SC Q12 ESCOBAR PRN Reason: Protocol Last Admin: 06/24/17 10:17 Dose: 5,000 units Vancomycin HCl (Vancomycin 1gm) 1 gm in 250 mls @ 167 mls/hr IVPB Q12H ESCOBAR PRN Reason: Protocol Last Admin: 06/24/17 05:54 Dose: 167 mls/hr Metoprolol Tartrate (Lopressor) 25 mg PO BID [facility] Last Admin: 06/24/17 10:17 Dose: 25 mg Multivitamins/Minerals (Therapeutic-M Tab) 1 tab PO 0800 [facility] Last Admin: 06/24/17 08:36 Dose: 1 tab Nystatin (Nystop Topical Powder) 1 gm TOP DAILY [facility] Last Admin: 06/23/17 10:01 Dose: 1 gm Pantoprazole Sodium (Protonix Ec Tab) 40 mg PO DAILY [facility] Last Admin: 06/24/17 10:17 Dose: 40 mg Polyethylene Glycol (Miralax) 17 gm PO BID [facility] Last Admin: 06/23/17 17:37 Dose: Not Given Zinc Sulfate (Zinc Sulfate 220 Mg Cap) 220 mg PO DAILY [facility] Last Admin: 06/24/17 10:17 Dose: 220 mg - Labs Labs: 06/24/17 06:55 06/24/17 06:55 PT 13.1 SECONDS (9.4-12.5) H 06/15/17 11:00 INR 1.19 (0.93-1.08) H 06/15/17 11:00 APTT 31.3 Seconds (25.1-36.5) 06/15/17 11:00 - Constitutional Appears: Non-toxic, No Acute Distress, Chronically Ill - Head Exam Head Exam: ATRAUMATIC, NORMOCEPHALIC Additional comments: marked hair loss - Eye Exam Eye Exam: EOMI, PERRL Pupil Exam: NORMAL ACCOMODATION, PERRL - ENT Exam ENT Exam: Mucous Membranes Moist, Normal External Ear Exam, TM's Normal Bilaterally Additional comments: dentures - Respiratory Exam Respiratory Exam: Clear to Ausculation Bilateral, NORMAL BREATHING PATTERN. absent: Rales, Rhonchi, Wheezes - Cardiovascular Exam Cardiovascular Exam: REGULAR RHYTHM, RRR, +S1, +S2 - GI/Abdominal Exam GI & Abdominal Exam: Distended, Soft, Normal Bowel Sounds. absent: Tenderness - Extremities Exam Extremities Exam: Joint Swelling, Pedal Edema Additional comments: RLE less swollen R ankle with ulcer - improving slowly b/l chronic venous changes tinea and chronic venous stasis changes. Signs of arthritis in joints of the hands. 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 The patient with leukocytosis. Consider use of Aztreonam for antibiotic coverage for now. Await cultures especially urine cultures. Diabetes and HTN history? Local wound care. Elevated ESR and C-reactive protein. Continue Vancomycin and Aztreonam for antibiotic coverage. UTI with E. coli sensitive to Azactam. Maintain vancomycin for cellulitis IV. For UTI for 5-7 days treatment. Completed. Supportive care. Cellulitis appears improved. No additional issues. Thank you for allowing me to participate in the care of the patient, we will follow with you.
[2017-06-25] MEDS: Vancomycin 1gm in NS 250ml 1 GM/250 ML BAG IVPB SCH ×2 (03:09→15:59)
[2017-06-25 08:08] LABS: BASO # 0.06 K/mm3 (0.0-2.0); BASO % 0.7 % (0.0-3.0); EOS # 1.1 (0.0-0.7); GRAN # 5.23 (1.4-6.5); HEMOGLOBIN 8.7 g/dL (12.0-16.0); LYMPH # 1.7 (1.2-3.4); LYMPH % 18.9 % (22.0-35.0); MEAN CELL VOLUME 78.2 fl (80.0-105.0); MEAN CORPUSCULAR HEMOGLOBIN 23.1 pg (25.0-35.0); MEAN CORPUSCULAR HGB CONC 29.5 g/dl (31.0-37.0); MONO # 0.8 (0.1-0.6); MONO % 9.4 % (1.0-6.0); RBC 3.77 10^6/uL (3.5-6.1); RED CELL DISTRIBUTION WIDTH 21.4 % (11.5-14.5); WHITE BLOOD COUNT 8.9 10^3/ul (4.5-11.0)
[2017-06-25] MEDS ORDERED: Potassium Chloride 20 mEq ER Tab PO ONE (08:13)
[2017-06-25 08:17] LABS: ALB/GLOB RATIO 0.8 (1.1-1.8); ALT/SGPT 28 U/L (7-56); AST/SGOT 37 U/L (14-36); BLOOD UREA NITROGEN 7 mg/dL (7-21); CALCIUM 8.3 mg/dL (8.4-10.5); GFR AFRICAN-AMERICAN > 60; GFR NON-AFRICAN AMERICAN > 60
[2017-06-25] MEDS: Multivitamin With Minerals Tab PO SCH (08:53)
[2017-06-25] MEDS: Nystatin 100,000 Units/gm Topical Pow(15 gm) TOP SCH (10:05)
[2017-06-25] MEDS: POLYETHYLENE GLYCOL 3350 17 GM/Dose PACKET PO SCH ×2 (10:58→18:08)
[2017-06-25] MEDS: Pantoprazole 40 mg EC Tab PO SCH (10:58)
--- NOTE | 2017-06-25 11:46 | CP.PCM.PN ---
<MichaelChautauqua - Last Filed: 06/25/17 18:29> Subjective - Date & Time of Evaluation Date of Evaluation: 06/25/17 Time of Evaluation: 10:44 - Subjective Subjective: Patient seen and examined at bedside. Per nursing no acute events occurred overnight. The patient reports trouble sleeping overnight. Patient is tolerating her diet and had one bowel movement (non bloody) this morning. The patient denies any chest pain, lightheadedness, dizziness, abdominal pain, headaches, fevers, chills, cough, or any other complaints. Objective - Vital Signs/Intake and Output Vital Signs (last 24 hours): Temp Pulse Resp BP Pulse Ox 99 F 91 H 20 152/68 H 98 06/25/17 07:55 06/25/17 10:58 06/25/17 07:55 06/25/17 10:58 06/25/17 07:55 Intake and Output: 06/25/17 06/25/17 06:59 18:59 Intake Total 540 Balance 540 - Medications Medications: Current Medications Acetaminophen (Tylenol 325mg Tab) 650 mg PO Q4 PRN PRN Reason: Fever >100.4 F Last Admin: 06/15/17 23:29 Dose: 650 mg Acetaminophen/Butalbital/Caffeine (Fioricet) 1 tab PO Q4H PRN PRN Reason: Headache Last Admin: 06/22/17 23:03 Dose: 1 tab Albuterol/Ipratropium (Duoneb 3 Mg/0.5 Mg (3 Ml) Ud) 3 ml IH [id number] PRN PRN Reason: Shortness of Breath Ascorbic Acid (Vitamin C 500 Mg Tab) 500 mg PO BID [facility] Last Admin: 06/25/17 11:09 Dose: Not Given Docusate Sodium (Colace) 100 mg PO DAILY [facility] Last Admin: 06/25/17 10:58 Dose: 100 mg Ferrous Sulfate (Feosol) 324 mg PO TID [facility] Last Admin: 06/25/17 10:58 Dose: 324 mg Heparin Sodium (Porcine) (Heparin) 5,000 units SC Q12 ESCOBAR PRN Reason: Protocol Last Admin: 06/25/17 10:57 Dose: 5,000 units Vancomycin HCl (Vancomycin 1gm) 1 gm in 250 mls @ 167 mls/hr IVPB Q12H ESCOBAR PRN Reason: Protocol Last Admin: 06/25/17 03:09 Dose: 167 mls/hr Metoprolol Tartrate (Lopressor) 25 mg PO BID [facility] Last Admin: 06/25/17 10:58 Dose: 25 mg Multivitamins/Minerals (Therapeutic-M Tab) 1 tab PO 0800 [facility] Last Admin: 06/25/17 08:53 Dose: 1 tab Nystatin (Nystop Topical Powder) 1 gm TOP DAILY [facility] Last Admin: 06/23/17 10:01 Dose: 1 gm Pantoprazole Sodium (Protonix Ec Tab) 40 mg PO DAILY [facility] Last Admin: 06/25/17 10:58 Dose: 40 mg Polyethylene Glycol (Miralax) 17 gm PO BID [facility] Last Admin: 06/25/17 10:58 Dose: 17 gm Zinc Sulfate (Zinc Sulfate 220 Mg Cap) 220 mg PO DAILY [facility] Last Admin: 06/25/17 10:58 Dose: 220 mg - Labs Labs: 06/25/17 08:00 06/25/17 08:00 PT 13.1 SECONDS (9.4-12.5) H 06/15/17 11:00 INR 1.19 (0.93-1.08) H 06/15/17 11:00 APTT 31.3 Seconds (25.1-36.5) 06/15/17 11:00 - Head Exam Head Exam: ATRAUMATIC, NORMAL INSPECTION, NORMOCEPHALIC - Eye Exam Eye Exam: EOMI, Normal appearance, PERRL. absent: Periorbital tenderness Pupil Exam: NORMAL ACCOMODATION, PERRL. absent: Irregular, Unequal - ENT Exam ENT Exam: Mucous Membranes Moist, Normal Exam, Normal Oropharynx - Neck Exam Neck Exam: Full ROM, Normal Inspection - Respiratory Exam Respiratory Exam: Clear to Ausculation Bilateral, NORMAL BREATHING PATTERN. absent: Chest Wall Tenderness, Prolonged Expiratory Phase, Respiratory Distress - Cardiovascular Exam Cardiovascular Exam: REGULAR RHYTHM, +S1, +S2 - GI/Abdominal Exam GI & Abdominal Exam: Soft, Normal Bowel Sounds. absent: Rigid, Hyperactive Bowel Sounds - Extremities Exam Extremities Exam: Joint Swelling, Tenderness - Back Exam Back Exam: NORMAL INSPECTION. absent: CVA tenderness (L), CVA tenderness (R), paraspinal tenderness - Neurological Exam Neurological Exam: Alert, Awake, Oriented x3 - Psychiatric Exam Psychiatric exam: Normal Affect, Normal Mood - Skin Skin Exam: Dry, Intact Assessment and Plan - Assessment and Plan (Free Text) Assessment: 67 F with a PMHx of asthma, arthritis, and vitamin C deficiency who presents with RLE ulcer/cellulitis and chronic venous changes b/l, found to be septic in ED, post code sepsis. Plan: 1. RLE cellulitis/ulcer s/p CODE SEPSIS secondary to Proteus Mirabilis and beta hemolytic group b strep - Vancomycin to be completed today. - afebrile - Leukocytosis resolved. - continue tylenol prn fevers - MV/Vitamin C and Zinc - ID consulted, rec's appreciated. - Re-inforce Out of bed to chair today. Patient has yet to move to the chair. -Will f/u with Physical therapy for de-conditioning. -Podiatry consulted, rec's appreciated. - multipodus boot to be worn at all times as per podiatry -Per Social work patient has no support to be discharged at this time. Sister is supposed to get Pension from a bank next week. Discharge to subacute is pending approval. 2. Hypokalemia -3.4 on labs today. -Will replete and follow as necessary. Serial cmp's. 2. Headache - continue fioricet PRN - avoid motrin at this time 3. Shortness of breath - continue duoneb PRN - O2 Sat >90% on room air - cont O2 NC PRN 5. Constipation -Resolved. - Continue Colace and Miralax ESCOBAR; patient reports 1 normal consistency BM yesterday. - Will continue to monitor. 6. UTI - Completed Azactam. 7. Anemia likely 2/2 iron deficiency anemia -Continue Feosol -trend H/H 8. arthritis - continue motrin prn pain 9. vitamin C deficiency - continue MV and Vitamin C ordered GI/DVT ppx: heparin/protonix <Clemente Cabrera B - Last Filed: 06/26/17 11:23> Objective - Vital Signs/Intake and Output Vital Signs (last 24 hours): Temp Pulse Resp BP Pulse Ox 97.8 F 85 18 161/79 H 97 06/26/17 07:30 06/26/17 10:57 06/26/17 07:30 06/26/17 10:57 06/26/17 07:30 Intake and Output: 06/26/17 06/26/17 06:59 18:59 Intake Total 780 Balance 780 - Medications Medications: Current Medications Acetaminophen (Tylenol 325mg Tab) 650 mg PO Q4 PRN PRN Reason: Fever >100.4 F Last Admin: 06/15/17 23:29 Dose: 650 mg Acetaminophen/Butalbital/Caffeine (Fioricet) 1 tab PO Q4H PRN PRN Reason: Headache Last Admin: 06/26/17 08:05 Dose: 1 tab Albuterol/Ipratropium (Duoneb 3 Mg/0.5 Mg (3 Ml) Ud) 3 ml IH [id number] PRN PRN Reason: Shortness of Breath Ascorbic Acid (Vitamin C 500 Mg Tab) 500 mg PO BID [facility] Last Admin: 06/26/17 10:54 Dose: Not Given Docusate Sodium (Colace) 100 mg PO DAILY [facility] Last Admin: 06/26/17 10:55 Dose: 100 mg Ferrous Sulfate (Feosol) 324 mg PO TID [facility] Last Admin: 06/26/17 10:54 Dose: 324 mg Heparin Sodium (Porcine) (Heparin) 5,000 units SC Q12 ESCOBAR PRN Reason: Protocol Last Admin: 06/26/17 10:55 Dose: 5,000 units Metoprolol Tartrate (Lopressor) 25 mg PO BID [facility] Last Admin: 06/26/17 10:57 Dose: 25 mg Multivitamins/Minerals (Therapeutic-M Tab) 1 tab PO 0800 [facility] Last Admin: 06/26/17 08:05 Dose: 1 tab Nystatin (Nystop Topical Powder) 1 gm TOP DAILY [facility] Last Admin: 06/25/17 10:05 Dose: 1 gm Pantoprazole Sodium (Protonix Ec Tab) 40 mg PO DAILY [facility] Last Admin: 06/26/17 10:54 Dose: 40 mg Polyethylene Glycol (Miralax) 17 gm PO BID [facility] Last Admin: 06/26/17 11:17 Dose: Not Given Zinc Sulfate (Zinc Sulfate 220 Mg Cap) 220 mg PO DAILY [facility] Last Admin: 06/26/17 10:55 Dose: 220 mg - Labs Labs: 06/26/17 09:20 06/26/17 09:20 PT 13.1 SECONDS (9.4-12.5) H 06/15/17 11:00 INR 1.19 (0.93-1.08) H 06/15/17 11:00 APTT 31.3 Seconds (25.1-36.5) 06/15/17 11:00 Attending/Attestation - Attestation I have personally seen and examined this patient.: Yes I have fully participated in the care of the patient.: Yes I have reviewed all pertinent clinical information, including history, physical exam and plan: Yes Notes (Text): I have seen and examined the patient with the resident. Agree with the above note with the following additions/ exceptions: Briefly this is 67 year old female with history of asthma, iron deficiency anemia, arthritis, obesity who was admitted for evaluation of bilateral lymphedema and RLE cellulitis with draining ulcer of right ankle. Cellulitis has resolved. Echo revealed normal LVEF however diastolic function was not fully assessed as it was technically difficult study. Duplex negative for DVT. Multipodus boots on. Wound dressing was done by podiatry. Wound cultures reveal proteus and beta hemolytic group B. She also has EColi UTI. Patient has completed vancomycin and azactam. PT recommended TED. Discussed with CM in detail. Awaiting placement. Continue feosol and miralax. Continue vitamin C, MVI and zinc to promote wound healing. Continue nystatin powder for skin folds in bilateral lower extremities and also underneath the breast. Upon discharge patient will follow up in [facility] clinic. Dr Clemente Cabrera
--- NOTE | 2017-06-25 11:57 | CP.PCM.PN ---
<BaiElijah - Last Filed: 06/25/17 11:52> Subjective - Date & Time of Evaluation Date of Evaluation: 06/25/17 Time of Evaluation: 11:52 - Subjective Subjective: 67 y/o female seen at bedside for right lower extremity cellulitis with swelling , lymphedema and healed superficial draining ulceration. Patient is AAOx3 and in NAD. Patient denied of any acute overnight events. Patient denied of any pain in her bilateral LE. Patient denies of any other complains at this time. Objective - Vital Signs/Intake and Output Vital Signs (last 24 hours): Temp Pulse Resp BP Pulse Ox 99 F 91 H 20 152/68 H 98 06/25/17 07:55 06/25/17 10:58 06/25/17 07:55 06/25/17 10:58 06/25/17 07:55 Intake and Output: 06/25/17 06/25/17 06:59 18:59 Intake Total 540 Balance 540 - Medications Medications: Current Medications Acetaminophen (Tylenol 325mg Tab) 650 mg PO Q4 PRN PRN Reason: Fever >100.4 F Last Admin: 06/15/17 23:29 Dose: 650 mg Acetaminophen/Butalbital/Caffeine (Fioricet) 1 tab PO Q4H PRN PRN Reason: Headache Last Admin: 06/22/17 23:03 Dose: 1 tab Albuterol/Ipratropium (Duoneb 3 Mg/0.5 Mg (3 Ml) Ud) 3 ml IH [id number] PRN PRN Reason: Shortness of Breath Ascorbic Acid (Vitamin C 500 Mg Tab) 500 mg PO BID [facility] Last Admin: 06/25/17 11:09 Dose: Not Given Docusate Sodium (Colace) 100 mg PO DAILY [facility] Last Admin: 06/25/17 10:58 Dose: 100 mg Ferrous Sulfate (Feosol) 324 mg PO TID [facility] Last Admin: 06/25/17 10:58 Dose: 324 mg Heparin Sodium (Porcine) (Heparin) 5,000 units SC Q12 [facility] PRN Reason: Protocol Last Admin: 06/25/17 10:57 Dose: 5,000 units Vancomycin HCl (Vancomycin 1gm) 1 gm in 250 mls @ 167 mls/hr IVPB Q12H [facility] PRN Reason: Protocol Last Admin: 06/25/17 03:09 Dose: 167 mls/hr Metoprolol Tartrate (Lopressor) 25 mg PO BID [facility] Last Admin: 06/25/17 10:58 Dose: 25 mg Multivitamins/Minerals (Therapeutic-M Tab) 1 tab PO 0800 [facility] Last Admin: 06/25/17 08:53 Dose: 1 tab Nystatin (Nystop Topical Powder) 1 gm TOP DAILY [facility] Last Admin: 06/23/17 10:01 Dose: 1 gm Pantoprazole Sodium (Protonix Ec Tab) 40 mg PO DAILY [facility] Last Admin: 06/25/17 10:58 Dose: 40 mg Polyethylene Glycol (Miralax) 17 gm PO BID [facility] Last Admin: 06/25/17 10:58 Dose: 17 gm Zinc Sulfate (Zinc Sulfate 220 Mg Cap) 220 mg PO DAILY [facility] Last Admin: 06/25/17 10:58 Dose: 220 mg - Labs Labs: 06/25/17 08:00 06/25/17 08:00 PT 13.1 SECONDS (9.4-12.5) H 06/15/17 11:00 INR 1.19 (0.93-1.08) H 06/15/17 11:00 APTT 31.3 Seconds (25.1-36.5) 06/15/17 11:00 - Constitutional Appears: Well, Non-toxic, No Acute Distress - Extremities Exam Extremities Exam: absent: Calf Tenderness Additional comments: Right lower extremity exam: Vasc: DP/PT pulses 2/4 B/L. +4 pitting edema to RLE distal to tibial tuberosity , +3 to LLE. Temperature gradient warm to warm on R, warm to cool on L. CFT < 3 sec to all digits Derm: Cellulitis to right leg appears resolved with no visible erythema. site of superficial ulceration which appears to have dermal layer with islands of hyperkeratotic skin and no active drainage. Malodor resolved. No purulent discharge noted. Neuro: Protective sensation grossly intact Ortho: Significant tenderness on palpation of right lower extremity, increased on elevation of leg off the bed - Neurological Exam Neurological Exam: Alert, Awake, Oriented x3 - Psychiatric Exam Psychiatric exam: Normal Affect, Normal Mood Assessment and Plan - Assessment and Plan (Free Text) Assessment: 67 y/o female with bilateral lymphedema and RLE cellulitis and swelling with superficial ulceration to right medial ankle Plan: Patient seen and evaluated Patient discussed in details with attending Dr. Tariq Labs and vitals reviewed- afebrile, WBC 8.9 today Cultures (Final): Proteus species and Beta hemolytic GBS IV abx as per ID: Vancomycin Extremity ultrasound negative for DVT to RLE Medial ankle cleansed with saline and 4x4 gauze and lotion applied to the site wound shows dermal layer and appears healed - no dressing applied today Multipodus boots to be worn at all times when in bed Patient is stable from podiatry standpoint Podiatry will continue to follow while in house <Jarrett Tariq - Last Filed: 06/25/17 14:05> Objective - Vital Signs/Intake and Output Vital Signs (last 24 hours): Temp Pulse Resp BP Pulse Ox 99 F 91 H 20 152/68 H 98 06/25/17 07:55 06/25/17 10:58 06/25/17 07:55 06/25/17 10:58 06/25/17 07:55 Intake and Output: 06/25/17 06/25/17 06:59 18:59 Intake Total 540 Balance 540 - Medications Medications: Current Medications Acetaminophen (Tylenol 325mg Tab) 650 mg PO Q4 PRN PRN Reason: Fever >100.4 F Last Admin: 06/15/17 23:29 Dose: 650 mg Acetaminophen/Butalbital/Caffeine (Fioricet) 1 tab PO Q4H PRN PRN Reason: Headache Last Admin: 06/22/17 23:03 Dose: 1 tab Albuterol/Ipratropium (Duoneb 3 Mg/0.5 Mg (3 Ml) Ud) 3 ml IH [id number] PRN PRN Reason: Shortness of Breath Ascorbic Acid (Vitamin C 500 Mg Tab) 500 mg PO BID [facility] Last Admin: 06/25/17 11:09 Dose: Not Given Docusate Sodium (Colace) 100 mg PO DAILY [facility] Last Admin: 06/25/17 10:58 Dose: 100 mg Ferrous Sulfate (Feosol) 324 mg PO TID [facility] Last Admin: 06/25/17 10:58 Dose: 324 mg Heparin Sodium (Porcine) (Heparin) 5,000 units SC Q12 [facility] PRN Reason: Protocol Last Admin: 06/25/17 10:57 Dose: 5,000 units Vancomycin HCl (Vancomycin 1gm) 1 gm in 250 mls @ 167 mls/hr IVPB Q12H [facility] PRN Reason: Protocol Last Admin: 06/25/17 03:09 Dose: 167 mls/hr Metoprolol Tartrate (Lopressor) 25 mg PO BID [facility] Last Admin: 06/25/17 10:58 Dose: 25 mg Multivitamins/Minerals (Therapeutic-M Tab) 1 tab PO 0800 [facility] Last Admin: 06/25/17 08:53 Dose: 1 tab Nystatin (Nystop Topical Powder) 1 gm TOP DAILY [facility] Last Admin: 06/23/17 10:01 Dose: 1 gm Pantoprazole Sodium (Protonix Ec Tab) 40 mg PO DAILY [facility] Last Admin: 06/25/17 10:58 Dose: 40 mg Polyethylene Glycol (Miralax) 17 gm PO BID [facility] Last Admin: 06/25/17 10:58 Dose: 17 gm Zinc Sulfate (Zinc Sulfate 220 Mg Cap) 220 mg PO DAILY [facility] Last Admin: 06/25/17 10:58 Dose: 220 mg - Labs Labs: 06/25/17 08:00 06/25/17 08:00 PT 13.1 SECONDS (9.4-12.5) H 06/15/17 11:00 INR 1.19 (0.93-1.08) H 06/15/17 11:00 APTT 31.3 Seconds (25.1-36.5) 06/15/17 11:00 Attending/Attestation - Attestation I have personally seen and examined this patient.: Yes I have fully participated in the care of the patient.: Yes I have reviewed all pertinent clinical information, including history, physical exam and plan: Yes
--- NOTE | 2017-06-25 16:39 | CP.PCM.PN ---
Subjective - Date & Time of Evaluation Date of Evaluation: 06/25/17 Time of Evaluation: 14:45 - Subjective Subjective: Infectious Disease Follow Up: June 25, 2017 67 yo female presenting with 3 weeks of RLE ulceration, swelling and leaking from the wound as well as multiple falls in the past 3 weeks. The patient has an extensive medical history of asthma, arthritis, vitamin C deficiency, and possible thyroid disease. Had headaches and episodes of SOB overnight. draining RLE ulceration... cellulitis improved/resolved. Multiple chronic medical issues. Feeling tired today. Objective - Vital Signs/Intake and Output Vital Signs (last 24 hours): Temp Pulse Resp BP Pulse Ox 99 F 91 H 20 152/68 H 98 06/25/17 07:55 06/25/17 10:58 06/25/17 07:55 06/25/17 10:58 06/25/17 07:55 Intake and Output: 06/25/17 06/25/17 06:59 18:59 Intake Total 540 480 Balance 540 480 - Medications Medications: Current Medications Acetaminophen (Tylenol 325mg Tab) 650 mg PO Q4 PRN PRN Reason: Fever >100.4 F Last Admin: 06/15/17 23:29 Dose: 650 mg Acetaminophen/Butalbital/Caffeine (Fioricet) 1 tab PO Q4H PRN PRN Reason: Headache Last Admin: 06/22/17 23:03 Dose: 1 tab Albuterol/Ipratropium (Duoneb 3 Mg/0.5 Mg (3 Ml) Ud) 3 ml IH [id number] PRN PRN Reason: Shortness of Breath Ascorbic Acid (Vitamin C 500 Mg Tab) 500 mg PO BID [facility] Last Admin: 06/25/17 11:09 Dose: Not Given Docusate Sodium (Colace) 100 mg PO DAILY [facility] Last Admin: 06/25/17 10:58 Dose: 100 mg Ferrous Sulfate (Feosol) 324 mg PO TID [facility] Last Admin: 06/25/17 14:26 Dose: 324 mg Heparin Sodium (Porcine) (Heparin) 5,000 units SC Q12 [facility] PRN Reason: Protocol Last Admin: 06/25/17 10:57 Dose: 5,000 units Vancomycin HCl (Vancomycin 1gm) 1 gm in 250 mls @ 167 mls/hr IVPB Q12H [facility] PRN Reason: Protocol Last Admin: 06/25/17 15:59 Dose: 167 mls/hr Metoprolol Tartrate (Lopressor) 25 mg PO BID [facility] Last Admin: 06/25/17 10:58 Dose: 25 mg Multivitamins/Minerals (Therapeutic-M Tab) 1 tab PO 0800 [facility] Last Admin: 06/25/17 08:53 Dose: 1 tab Nystatin (Nystop Topical Powder) 1 gm TOP DAILY [facility] Last Admin: 06/23/17 10:01 Dose: 1 gm Pantoprazole Sodium (Protonix Ec Tab) 40 mg PO DAILY [facility] Last Admin: 06/25/17 10:58 Dose: 40 mg Polyethylene Glycol (Miralax) 17 gm PO BID [facility] Last Admin: 06/25/17 10:58 Dose: 17 gm Zinc Sulfate (Zinc Sulfate 220 Mg Cap) 220 mg PO DAILY [facility] Last Admin: 06/25/17 10:58 Dose: 220 mg - Labs Labs: 06/25/17 08:00 06/25/17 08:00 PT 13.1 SECONDS (9.4-12.5) H 06/15/17 11:00 INR 1.19 (0.93-1.08) H 06/15/17 11:00 APTT 31.3 Seconds (25.1-36.5) 06/15/17 11:00 - Constitutional Appears: Non-toxic, No Acute Distress, Chronically Ill - Head Exam Head Exam: ATRAUMATIC, NORMOCEPHALIC Additional comments: marked hair loss - Eye Exam Eye Exam: EOMI, PERRL Pupil Exam: NORMAL ACCOMODATION, PERRL - ENT Exam ENT Exam: Mucous Membranes Moist, Normal External Ear Exam, TM's Normal Bilaterally - Respiratory Exam Respiratory Exam: Clear to Ausculation Bilateral, NORMAL BREATHING PATTERN. absent: Rales, Rhonchi, Wheezes - Cardiovascular Exam Cardiovascular Exam: REGULAR RHYTHM, RRR, +S1, +S2 - GI/Abdominal Exam GI & Abdominal Exam: Distended, Soft, Normal Bowel Sounds. absent: Tenderness - Extremities Exam Extremities Exam: Joint Swelling, Pedal Edema Additional comments: RLE less swollen R ankle with ulcer - improving slowly b/l chronic venous changes tinea and chronic venous stasis changes. Signs of arthritis in joints of the hands. - Neurological Exam Neurological Exam: Alert, Awake, CN II-XII Intact, Oriented x3 - Psychiatric Exam Psychiatric exam: Normal Affect, Normal Mood Assessment and Plan - Assessment and Plan (Free Text) Assessment: 67 yo female with multiple medical issues with PCN allergy diagnosed as a teenager verified by an Pier Worker. The patient with leukocytosis. Consider use of Aztreonam for antibiotic coverage for now. Await cultures especially urine cultures. Diabetes and HTN history? Local wound care. Elevated ESR and C-reactive protein. Continue Vancomycin and Aztreonam for antibiotic coverage. UTI with E. coli sensitive to Azactam. Maintain vancomycin for cellulitis IV. For UTI for 5-7 days treatment. Completed now. Supportive care. Cellulitis appears improved. No additional issues. Thank you for allowing me to participate in the care of the patient, we will follow with you.
[2017-06-25] MEDS: Apap-Butalbital-Caffeine 325-50-40mg Tab PO PRN (21:34)
[2017-06-26] MEDS: Vancomycin 1gm in NS 250ml 1 GM/250 ML BAG IVPB SCH (03:42)
[2017-06-26] MEDS: Apap-Butalbital-Caffeine 325-50-40mg Tab PO PRN ×2 (08:05→22:08)
[2017-06-26] MEDS: Multivitamin With Minerals Tab PO SCH (08:05)
[2017-06-26 09:31] LABS: BASO # 0.09 K/mm3 (0.0-2.0); BASO % 1.1 % (0.0-3.0); EOS % 12.3 % (1.5-5.0); GRAN # 4.91 (1.4-6.5); GRAN % 61.1 % (50.0-68.0); HEMOGLOBIN 8.8 g/dL (12.0-16.0); LYMPH # 1.2 (1.2-3.4); LYMPH % 15.4 % (22.0-35.0); MEAN CELL VOLUME 79.5 fl (80.0-105.0); MEAN CORPUSCULAR HEMOGLOBIN 23.8 pg (25.0-35.0); MEAN CORPUSCULAR HGB CONC 29.9 g/dl (31.0-37.0); MONO # 0.8 (0.1-0.6); MONO % 10.1 % (1.0-6.0); RBC 3.7 10^6/uL (3.5-6.1); RED CELL DISTRIBUTION WIDTH 22.1 % (11.5-14.5)
[2017-06-26 09:46] LABS: ALB/GLOB RATIO 0.8 (1.1-1.8); ALBUMIN 2.9 g/dL (3.0-4.8); ALT/SGPT 22 U/L (7-56); AST/SGOT 26 U/L (14-36); BLOOD UREA NITROGEN 6 mg/dL (7-21); CALCIUM 8.1 mg/dL (8.4-10.5); GFR AFRICAN-AMERICAN > 60; GFR NON-AFRICAN AMERICAN > 60
[2017-06-26] MEDS: Pantoprazole 40 mg EC Tab PO SCH (10:54)
[2017-06-26] MEDS: POLYETHYLENE GLYCOL 3350 17 GM/Dose PACKET PO SCH ×2 (11:17→17:40)
--- NOTE | 2017-06-26 12:15 | CP.PCM.PN ---
<Luther Corbin - Last Filed: 06/26/17 12:12> Subjective - Date & Time of Evaluation Date of Evaluation: 06/26/17 Time of Evaluation: 12:12 - Subjective Subjective: Pt seen and examined at bedside. Pt doing well overnight with no acute events. No complaints at this time. Denies CP, SOB, N/V/D, fever, chills. Objective - Vital Signs/Intake and Output Vital Signs (last 24 hours): Temp Pulse Resp BP Pulse Ox 97.8 F 85 18 161/79 H 97 06/26/17 07:30 06/26/17 10:57 06/26/17 07:30 06/26/17 10:57 06/26/17 07:30 Intake and Output: 06/26/17 06/26/17 06:59 18:59 Intake Total 780 Balance 780 - Medications Medications: Current Medications Acetaminophen (Tylenol 325mg Tab) 650 mg PO Q4 PRN PRN Reason: Fever >100.4 F Last Admin: 06/15/17 23:29 Dose: 650 mg Acetaminophen/Butalbital/Caffeine (Fioricet) 1 tab PO Q4H PRN PRN Reason: Headache Last Admin: 06/26/17 08:05 Dose: 1 tab Albuterol/Ipratropium (Duoneb 3 Mg/0.5 Mg (3 Ml) Ud) 3 ml IH [id number] PRN PRN Reason: Shortness of Breath Ascorbic Acid (Vitamin C 500 Mg Tab) 500 mg PO BID [facility] Last Admin: 06/26/17 10:54 Dose: Not Given Docusate Sodium (Colace) 100 mg PO DAILY [facility] Last Admin: 06/26/17 10:55 Dose: 100 mg Ferrous Sulfate (Feosol) 324 mg PO TID [facility] Last Admin: 06/26/17 10:54 Dose: 324 mg Heparin Sodium (Porcine) (Heparin) 5,000 units SC Q12 [facility] PRN Reason: Protocol Last Admin: 06/26/17 10:55 Dose: 5,000 units Metoprolol Tartrate (Lopressor) 25 mg PO BID [facility] Last Admin: 06/26/17 10:57 Dose: 25 mg Multivitamins/Minerals (Therapeutic-M Tab) 1 tab PO 0800 [facility] Last Admin: 06/26/17 08:05 Dose: 1 tab Nystatin (Nystop Topical Powder) 1 gm TOP DAILY [facility] Last Admin: 06/25/17 10:05 Dose: 1 gm Pantoprazole Sodium (Protonix Ec Tab) 40 mg PO DAILY [facility] Last Admin: 06/26/17 10:54 Dose: 40 mg Polyethylene Glycol (Miralax) 17 gm PO BID [facility] Last Admin: 06/26/17 11:17 Dose: Not Given Zinc Sulfate (Zinc Sulfate 220 Mg Cap) 220 mg PO DAILY [facility] Last Admin: 06/26/17 10:55 Dose: 220 mg - Labs Labs: 06/26/17 09:20 06/26/17 09:20 PT 13.1 SECONDS (9.4-12.5) H 06/15/17 11:00 INR 1.19 (0.93-1.08) H 06/15/17 11:00 APTT 31.3 Seconds (25.1-36.5) 06/15/17 11:00 - Constitutional Appears: Non-toxic, No Acute Distress - Head Exam Head Exam: ATRAUMATIC, NORMAL INSPECTION, NORMOCEPHALIC - ENT Exam ENT Exam: Mucous Membranes Moist - Respiratory Exam Respiratory Exam: Decreased Breath Sounds, Clear to Ausculation Bilateral. absent: Rales, Rhonchi, Wheezes - Cardiovascular Exam Cardiovascular Exam: RRR, +S1, +S2 - GI/Abdominal Exam GI & Abdominal Exam: Soft, Normal Bowel Sounds. absent: Tenderness - Extremities Exam Extremities Exam: Pedal Edema. absent: Calf Tenderness - Neurological Exam Neurological Exam: Alert, Awake, Oriented x3 - Psychiatric Exam Psychiatric exam: Normal Affect, Normal Mood - Skin Skin Exam: Dry, Intact, Normal Color Assessment and Plan - Assessment and Plan (Free Text) Plan: 67 F with a PMHx of asthma, arthritis, and vitamin C deficiency who presents with RLE ulcer/cellulitis and draining right lower extremity ulcer, along with UTI. Pt is now s/p completion of Vancomycin and Azobactam regimen. Pt is pending placement in [facility] at this time. 1. RLE cellulitis/ulcer s/p CODE SEPSIS secondary to Proteus Mirabilis and beta hemolytic group b strep -Resolved - continue tylenol prn fevers - MV/Vitamin C and Zinc - Physical therapy recommends [facility] -Podiatry consulted, rec's appreciated. - multipodus boot to be worn at all times as per podiatry 2. Hypokalemia -3.1 on labs today. -Will replete 3. Headache - continue fioricet PRN 4. Shortness of breath - continue duoneb PRN - O2 Sat >90% on room air - cont O2 NC PRN 5. UTI - Completed Azactam course 6. Anemia likely 2/2 iron deficiency anemia - Hg stable -Continue Feosol -trend H/H 7. vitamin C deficiency - continue MV and Vitamin C ordered 8. GI/DVT ppx - Heparin - Protonix [place], PGY-2 <Clemente Cabrera - Last Filed: 06/26/17 16:26> Objective - Vital Signs/Intake and Output Vital Signs (last 24 hours): Temp Pulse Resp BP Pulse Ox 97.9 F 86 20 149/78 98 06/26/17 16:00 06/26/17 16:00 06/26/17 16:00 06/26/17 16:00 06/26/17 16:00 Intake and Output: 06/26/17 06/26/17 06:59 18:59 Intake Total 780 Balance 780 - Medications Medications: Current Medications Acetaminophen (Tylenol 325mg Tab) 650 mg PO Q4 PRN PRN Reason: Fever >100.4 F Last Admin: 06/15/17 23:29 Dose: 650 mg Acetaminophen/Butalbital/Caffeine (Fioricet) 1 tab PO Q4H PRN PRN Reason: Headache Last Admin: 06/26/17 08:05 Dose: 1 tab Albuterol/Ipratropium (Duoneb 3 Mg/0.5 Mg (3 Ml) Ud) 3 ml IH [id number] PRN PRN Reason: Shortness of Breath Ascorbic Acid (Vitamin C 500 Mg Tab) 500 mg PO BID [facility] Last Admin: 06/26/17 10:54 Dose: Not Given Docusate Sodium (Colace) 100 mg PO DAILY [facility] Last Admin: 06/26/17 10:55 Dose: 100 mg Ferrous Sulfate (Feosol) 324 mg PO TID [facility] Last Admin: 06/26/17 14:29 Dose: 324 mg Guaifenesin (Robitussin) 100 mg PO Q4H PRN PRN Reason: Cough Last Admin: 06/26/17 14:29 Dose: 100 mg Heparin Sodium (Porcine) (Heparin) 5,000 units SC Q12 [facility] PRN Reason: Protocol Last Admin: 06/26/17 10:55 Dose: 5,000 units Metoprolol Tartrate (Lopressor) 25 mg PO BID [facility] Last Admin: 06/26/17 10:57 Dose: 25 mg Multivitamins/Minerals (Therapeutic-M Tab) 1 tab PO 0800 [facility] Last Admin: 06/26/17 08:05 Dose: 1 tab Nystatin (Nystop Topical Powder) 1 gm TOP DAILY [facility] Last Admin: 06/26/17 14:30 Dose: 1 gm Pantoprazole Sodium (Protonix Ec Tab) 40 mg PO DAILY [facility] Last Admin: 06/26/17 10:54 Dose: 40 mg Polyethylene Glycol (Miralax) 17 gm PO BID [facility] Last Admin: 06/26/17 11:17 Dose: Not Given Potassium Chloride (K-Dur 20 Meq Er Tab) 20 meq PO DAILY [facility] Zinc Sulfate (Zinc Sulfate 220 Mg Cap) 220 mg PO DAILY [facility] Last Admin: 06/26/17 10:55 Dose: 220 mg - Labs Labs: 06/26/17 09:20 06/26/17 09:20 PT 13.1 SECONDS (9.4-12.5) H 06/15/17 11:00 INR 1.19 (0.93-1.08) H 06/15/17 11:00 APTT 31.3 Seconds (25.1-36.5) 06/15/17 11:00 Attending/Attestation - Attestation I have personally seen and examined this patient.: Yes I have fully participated in the care of the patient.: Yes I have reviewed all pertinent clinical information, including history, physical exam and plan: Yes Notes (Text): I have seen and examined the patient with the resident. Agree with the above note with the following additions/ exceptions: Briefly this is 67 year old female with history of asthma, iron deficiency anemia, arthritis, obesity who was admitted for evaluation of bilateral lymphedema and RLE cellulitis with draining ulcer of right ankle. Cellulitis has resolved. Echo revealed normal LVEF however diastolic function was not fully assessed as it was technically difficult study. Duplex negative for DVT. Multipodus boots on. Wound dressing was done by podiatry. Wound cultures reveal proteus and beta hemolytic group B. She also has EColi UTI. Patient has completed vancomycin and azactam. PT recommended TED. Discussed with CM in detail. Awaiting placement. Continue feosol and miralax. Continue vitamin C, MVI and zinc to promote wound healing. Continue nystatin powder for skin folds in bilateral lower extremities and also underneath the breast. Patient has persistent hypokalemia. There is no vomiting, diarrhea, RTA or polyuria. Patient is on miralax due to iron induced constipation. Will check mag level in am. Also cough was reported. Will do CXR. There is no need to check daily CBC and CMP. Upon discharge patient will follow up in [facility] clinic. Dr Clemente Cabrera
[2017-06-26] MEDS: Potassium Chloride 20 mEq ER Tab PO STA ×2 (13:09→13:16)
[2017-06-26] MEDS ORDERED: Potassium Chloride 40 mEq/30 ml LIQ UD PO ONE (13:36)
[2017-06-26] MEDS: Nystatin 100,000 Units/gm Topical Pow(15 gm) TOP SCH ×2 (14:29→14:30)
[2017-06-26] MEDS: guaiFENesin 100 mg/5 ml Syrup UD PO PRN ×2 (14:29→18:46)
--- NOTE | 2017-06-26 16:45 | CP.PCM.PN ---
Subjective - Date & Time of Evaluation Date of Evaluation: 06/26/17 Time of Evaluation: 16:00 - Subjective Subjective: Infectious Disease Follow Up: June 25, 2017 67 yo female presenting with 3 weeks of RLE ulceration, swelling and leaking from the wound as well as multiple falls in the past 3 weeks. The patient has an extensive medical history of asthma, arthritis, vitamin C deficiency, and possible thyroid disease. Had headaches and episodes of SOB overnight. draining RLE ulceration... cellulitis improved/resolved. Multiple chronic medical issues. Feeling tired today. Had some dry hacking cough. There is also some redness noted by nursing of the patient's buttocks. Objective - Vital Signs/Intake and Output Vital Signs (last 24 hours): Temp Pulse Resp BP Pulse Ox 97.9 F 86 20 149/78 98 06/26/17 16:00 06/26/17 16:00 06/26/17 16:00 06/26/17 16:00 06/26/17 16:00 Intake and Output: 06/26/17 06/26/17 06:59 18:59 Intake Total 780 Balance 780 - Medications Medications: Current Medications Acetaminophen (Tylenol 325mg Tab) 650 mg PO Q4 PRN PRN Reason: Fever >100.4 F Last Admin: 06/15/17 23:29 Dose: 650 mg Acetaminophen/Butalbital/Caffeine (Fioricet) 1 tab PO Q4H PRN PRN Reason: Headache Last Admin: 06/26/17 08:05 Dose: 1 tab Albuterol/Ipratropium (Duoneb 3 Mg/0.5 Mg (3 Ml) Ud) 3 ml IH [id number] PRN PRN Reason: Shortness of Breath Ascorbic Acid (Vitamin C 500 Mg Tab) 500 mg PO BID REPLACED BY [facility] Last Admin: 06/26/17 10:54 Dose: Not Given Docusate Sodium (Colace) 100 mg PO DAILY REPLACED BY [facility] Last Admin: 06/26/17 10:55 Dose: 100 mg Ferrous Sulfate (Feosol) 324 mg PO TID REPLACED BY [facility] Last Admin: 06/26/17 14:29 Dose: 324 mg Guaifenesin (Robitussin) 100 mg PO Q4H PRN PRN Reason: Cough Last Admin: 06/26/17 14:29 Dose: 100 mg Heparin Sodium (Porcine) (Heparin) 5,000 units SC Q12 REPLACED BY [facility] PRN Reason: Protocol Last Admin: 06/26/17 10:55 Dose: 5,000 units Metoprolol Tartrate (Lopressor) 25 mg PO BID REPLACED BY [facility] Last Admin: 06/26/17 10:57 Dose: 25 mg Multivitamins/Minerals (Therapeutic-M Tab) 1 tab PO 0800 REPLACED BY [facility] Last Admin: 06/26/17 08:05 Dose: 1 tab Nystatin (Nystop Topical Powder) 1 gm TOP DAILY REPLACED BY [facility] Last Admin: 06/26/17 14:30 Dose: 1 gm Pantoprazole Sodium (Protonix Ec Tab) 40 mg PO DAILY REPLACED BY [facility] Last Admin: 06/26/17 10:54 Dose: 40 mg Polyethylene Glycol (Miralax) 17 gm PO BID REPLACED BY [facility] Last Admin: 06/26/17 11:17 Dose: Not Given Potassium Chloride (K-Dur 20 Meq Er Tab) 20 meq PO DAILY REPLACED BY [facility] Zinc Sulfate (Zinc Sulfate 220 Mg Cap) 220 mg PO DAILY REPLACED BY [facility] Last Admin: 06/26/17 10:55 Dose: 220 mg - Labs Labs: 06/26/17 09:20 06/26/17 09:20 PT 13.1 SECONDS (9.4-12.5) H 06/15/17 11:00 INR 1.19 (0.93-1.08) H 06/15/17 11:00 APTT 31.3 Seconds (25.1-36.5) 06/15/17 11:00 - Constitutional Appears: Non-toxic, No Acute Distress, Chronically Ill - Head Exam Head Exam: ATRAUMATIC, NORMOCEPHALIC Additional comments: marked hair loss - Eye Exam Eye Exam: EOMI, PERRL Pupil Exam: NORMAL ACCOMODATION, PERRL - ENT Exam ENT Exam: Mucous Membranes Moist, Normal External Ear Exam, TM's Normal Bilaterally - Neck Exam Neck Exam: Full ROM, Normal Inspection - Respiratory Exam Respiratory Exam: Clear to Ausculation Bilateral, NORMAL BREATHING PATTERN. absent: Rales, Rhonchi, Wheezes - Cardiovascular Exam Cardiovascular Exam: REGULAR RHYTHM, RRR, +S1, +S2 - GI/Abdominal Exam GI & Abdominal Exam: Soft, Normal Bowel Sounds. absent: Distended, Tenderness - Extremities Exam Extremities Exam: Joint Swelling, Pedal Edema Additional comments: RLE less swollen R ankle with ulcer - improving slowly b/l chronic venous changes tinea and chronic venous stasis changes. Signs of arthritis in joints of the hands. - Neurological Exam Neurological Exam: Alert, Awake, CN II-XII Intact, Oriented x3 - Psychiatric Exam Psychiatric exam: Normal Affect, Normal Mood - Skin Skin Exam: Intact, Normal Color Additional comments: Right lower leg superficial ulceration appears to be mostly healed. Cellultitis of right lower leg resolved. Assessment and Plan - Assessment and Plan (Free Text) Assessment: 67 yo female with multiple medical issues with PCN allergy diagnosed as a teenager verified by an [employer]. The patient with leukocytosis. Consider use of Aztreonam for antibiotic coverage for now. Await cultures especially urine cultures. Diabetes and HTN history? Local wound care. Elevated ESR and C-reactive protein. Continue Vancomycin and Aztreonam for antibiotic coverage. UTI with E. coli sensitive to Azactam. Maintain vancomycin for cellulitis IV. For UTI for 5-7 days treatment. Completed now. Supportive care. Cellulitis appears improved. No additional issues. Social issues currently. Thank you for allowing me to participate in the care of the patient, we will follow with you.
--- NOTE | 2017-06-26 17:10 | RAD ---
HISTORY: r/o infiltrates COMPARISON: 06/15/2017 FINDINGS: LUNGS: No active pulmonary disease. PLEURA: No significant pleural effusion identified, no pneumothorax apparent. CARDIOVASCULAR: Moderate cardiomegaly OSSEOUS STRUCTURES: No significant abnormalities. VISUALIZED UPPER ABDOMEN: Normal. OTHER FINDINGS: None. IMPRESSION: No active disease.
[2017-06-26] MEDS: Albuterol-Ipratrop 3 mg / 0.5 (3 ml) UD IH PRN (23:20)
[2017-06-27 07:22] LABS: BASO # 0.08 K/mm3 (0.0-2.0); BASO % 0.9 % (0.0-3.0); EOS # 0.8 (0.0-0.7); EOS % 9.8 % (1.5-5.0); GRAN # 5.03 (1.4-6.5); GRAN % 59.3 % (50.0-68.0); HEMOGLOBIN 8.9 g/dL (12.0-16.0); LYMPH # 1.6 (1.2-3.4); LYMPH % 19.3 % (22.0-35.0); MEAN CELL VOLUME 79.3 fl (80.0-105.0); MEAN CORPUSCULAR HEMOGLOBIN 23.3 pg (25.0-35.0); MEAN CORPUSCULAR HGB CONC 29.4 g/dl (31.0-37.0); MEAN PLATELET VOLUME 8.2 fl (7.0-11.0); MONO # 0.9 (0.1-0.6); MONO % 10.7 % (1.0-6.0); RBC 3.82 10^6/uL (3.5-6.1); RED CELL DISTRIBUTION WIDTH 22.5 % (11.5-14.5); WHITE BLOOD COUNT 8.5 10^3/ul (4.5-11.0)
[2017-06-27 08:06] LABS: BLOOD UREA NITROGEN 8 mg/dL (7-21); CALCIUM 8.3 mg/dL (8.4-10.5); GFR AFRICAN-AMERICAN > 60; GFR NON-AFRICAN AMERICAN > 60; MAGNESIUM 1.8 mg/dL (1.7-2.2)
[2017-06-27] MEDS: Multivitamin With Minerals Tab PO SCH (08:09)
[2017-06-27] MEDS ORDERED: Potassium Chloride 20 mEq ER Tab PO SCH (10:00)
[2017-06-27] MEDS: Nystatin 100,000 Units/gm Topical Pow(15 gm) TOP SCH (10:00)
--- NOTE | 2017-06-27 10:34 | CP.PCM.PN ---
<Luther Corbin - Last Filed: 06/27/17 10:29> Subjective - Date & Time of Evaluation Date of Evaluation: 06/27/17 Time of Evaluation: 10:29 - Subjective Subjective: Pt seen and examined at bedside. No acute events overnight as per nursing. Pt complaining of cough still, was given Robitussin yesterday. Denies CP, SOB, N/V/ D, fever, chills. Objective - Vital Signs/Intake and Output Vital Signs (last 24 hours): Temp Pulse Resp BP Pulse Ox 98.4 F 83 18 150/80 98 06/27/17 07:30 06/27/17 07:30 06/27/17 07:30 06/27/17 07:30 06/27/17 07:30 Intake and Output: 06/27/17 06/27/17 06:59 18:59 Intake Total 200 Output Total 0 Balance 200 - Medications Medications: Current Medications Acetaminophen (Tylenol 325mg Tab) 650 mg PO Q4 PRN PRN Reason: Fever >100.4 F Last Admin: 06/15/17 23:29 Dose: 650 mg Acetaminophen/Butalbital/Caffeine (Fioricet) 1 tab PO Q4H PRN PRN Reason: Headache Last Admin: 06/26/17 22:08 Dose: 1 tab Albuterol/Ipratropium (Duoneb 3 Mg/0.5 Mg (3 Ml) Ud) 3 ml IH [id number] PRN PRN Reason: Shortness of Breath Last Admin: 06/26/17 23:20 Dose: 3 ml Ascorbic Acid (Vitamin C 500 Mg Tab) 500 mg PO BID [facility] Last Admin: 06/26/17 17:40 Dose: Not Given Benzonatate (Tessalon Perles) 100 mg PO TID PRN PRN Reason: Cough Docusate Sodium (Colace) 100 mg PO DAILY [facility] Last Admin: 06/26/17 10:55 Dose: 100 mg Ferrous Sulfate (Feosol) 324 mg PO TID [facility] Last Admin: 06/26/17 17:40 Dose: 324 mg Guaifenesin (Robitussin) 100 mg PO Q4H PRN PRN Reason: Cough Last Admin: 06/26/17 18:46 Dose: 100 mg Heparin Sodium (Porcine) (Heparin) 5,000 units SC Q12 [facility] PRN Reason: Protocol Last Admin: 06/26/17 22:08 Dose: 5,000 units Metoprolol Tartrate (Lopressor) 25 mg PO BID [facility] Last Admin: 06/26/17 17:41 Dose: 25 mg Multivitamins/Minerals (Therapeutic-M Tab) 1 tab PO 0800 [facility] Last Admin: 06/27/17 08:09 Dose: 1 tab Nystatin (Nystop Topical Powder) 1 gm TOP DAILY [facility] Last Admin: 06/26/17 14:30 Dose: 1 gm Pantoprazole Sodium (Protonix Ec Tab) 40 mg PO DAILY [facility] Last Admin: 06/26/17 10:54 Dose: 40 mg Polyethylene Glycol (Miralax) 17 gm PO BID [facility] Last Admin: 06/26/17 17:40 Dose: Not Given Potassium Chloride (K-Dur 20 Meq Er Tab) 20 meq PO DAILY [facility] Zinc Sulfate (Zinc Sulfate 220 Mg Cap) 220 mg PO DAILY [facility] Last Admin: 06/26/17 10:55 Dose: 220 mg - Labs Labs: 06/27/17 06:45 06/27/17 06:45 PT 13.1 SECONDS (9.4-12.5) H 06/15/17 11:00 INR 1.19 (0.93-1.08) H 06/15/17 11:00 APTT 31.3 Seconds (25.1-36.5) 06/15/17 11:00 - Constitutional Appears: Non-toxic, No Acute Distress - Head Exam Head Exam: ATRAUMATIC, NORMAL INSPECTION, NORMOCEPHALIC - ENT Exam ENT Exam: Mucous Membranes Moist - Respiratory Exam Respiratory Exam: Decreased Breath Sounds, NORMAL BREATHING PATTERN. absent: Rhonchi, Wheezes - Cardiovascular Exam Cardiovascular Exam: RRR, +S1, +S2 - GI/Abdominal Exam GI & Abdominal Exam: Soft, Normal Bowel Sounds. absent: Tenderness - Extremities Exam Extremities Exam: absent: Calf Tenderness, Pedal Edema - Neurological Exam Neurological Exam: Alert, Awake, Oriented x3 - Psychiatric Exam Psychiatric exam: Normal Affect, Normal Mood - Skin Skin Exam: Dry, Warm Assessment and Plan - Assessment and Plan (Free Text) Plan: 67 F with a PMHx of asthma, arthritis, and vitamin C deficiency who presents with RLE ulcer/cellulitis and draining right lower extremity ulcer, along with UTI. Pt completed course of Vancomycin and Azobactam for cellulitis and UTI. Pt received chest x-ray for cough and SOB, which is negative for any acute process. Incentive spirometer given. Pt is pending placement in [facility] at this time. 1. RLE cellulitis/ulcer with culture positive for Proteus Mirabilis and beta hemolytic group b strep -Resolved - continue tylenol prn fevers - MV/Vitamin C and Zinc - Physical therapy recommends [facility] -Podiatry consulted, rec's appreciated. - multipodus boot to be worn at all times as per podiatry 2. Hypokalemia - Will start daily potassium supplementation - WNL today 3. Headache - continue fioricet PRN 4. Shortness of breath - Chest x-ray clear - Incentive spirometry - continue duoneb PRN - O2 Sat >90% on room air - cont O2 NC PRN 5. UTI - Completed Azactam course 6. Anemia likely 2/2 iron deficiency anemia - Hg stable -Continue Feosol -trend H/H 7. vitamin C deficiency - continue MV and Vitamin C ordered 8. GI/DVT ppx - Heparin - Protonix [facility], PGY-2 <Clemente Cabrera - Last Filed: 06/27/17 15:45> Objective - Vital Signs/Intake and Output Vital Signs (last 24 hours): Temp Pulse Resp BP Pulse Ox 98.4 F 83 18 148/78 98 06/27/17 07:30 06/27/17 11:19 06/27/17 07:30 06/27/17 11:19 06/27/17 07:30 Intake and Output: 06/27/17 06/27/17 06:59 18:59 Intake Total 200 Output Total 0 Balance 200 - Medications Medications: Current Medications Acetaminophen (Tylenol 325mg Tab) 650 mg PO Q4 PRN PRN Reason: Fever >100.4 F Last Admin: 06/15/17 23:29 Dose: 650 mg Acetaminophen/Butalbital/Caffeine (Fioricet) 1 tab PO Q4H PRN PRN Reason: Headache Last Admin: 06/27/17 11:16 Dose: 1 tab Albuterol/Ipratropium (Duoneb 3 Mg/0.5 Mg (3 Ml) Ud) 3 ml IH [id number] PRN PRN Reason: Shortness of Breath Last Admin: 06/26/17 23:20 Dose: 3 ml Ascorbic Acid (Vitamin C 500 Mg Tab) 500 mg PO BID [facility] Last Admin: 06/27/17 11:03 Dose: Not Given Benzonatate (Tessalon Perles) 100 mg PO TID PRN PRN Reason: Cough Last Admin: 06/27/17 11:19 Dose: 100 mg Docusate Sodium (Colace) 100 mg PO DAILY [facility] Last Admin: 06/27/17 11:16 Dose: 100 mg Ferrous Sulfate (Feosol) 324 mg PO TID [facility] Last Admin: 06/27/17 14:25 Dose: 324 mg Guaifenesin (Robitussin) 100 mg PO Q4H PRN PRN Reason: Cough Last Admin: 06/26/17 18:46 Dose: 100 mg Heparin Sodium (Porcine) (Heparin) 5,000 units SC Q12 [facility] PRN Reason: Protocol Last Admin: 06/27/17 11:15 Dose: 5,000 units Metoprolol Tartrate (Lopressor) 25 mg PO BID [facility] Last Admin: 06/27/17 11:19 Dose: 25 mg Multivitamins/Minerals (Therapeutic-M Tab) 1 tab PO 0800 [facility] Last Admin: 06/27/17 08:09 Dose: 1 tab Nystatin (Nystop Topical Powder) 1 gm TOP DAILY [facility] Last Admin: 06/27/17 10:00 Dose: 1 gm Pantoprazole Sodium (Protonix Ec Tab) 40 mg PO DAILY [facility] Last Admin: 06/27/17 11:16 Dose: 40 mg Polyethylene Glycol (Miralax) 17 gm PO BID [facility] Last Admin: 06/27/17 11:14 Dose: Not Given Potassium Chloride (Potassium Chloride Oral Soln) 20 meq PO DAILY [facility] Last Admin: 06/27/17 11:39 Dose: 20 meq Zinc Sulfate (Zinc Sulfate 220 Mg Cap) 220 mg PO DAILY [facility] Last Admin: 06/27/17 11:16 Dose: 220 mg - Labs Labs: 06/27/17 06:45 06/27/17 06:45 PT 13.1 SECONDS (9.4-12.5) H 06/15/17 11:00 INR 1.19 (0.93-1.08) H 06/15/17 11:00 APTT 31.3 Seconds (25.1-36.5) 06/15/17 11:00 Attending/Attestation - Attestation I have personally seen and examined this patient.: Yes I have fully participated in the care of the patient.: Yes I have reviewed all pertinent clinical information, including history, physical exam and plan: Yes Notes (Text): I have seen and examined the patient with the resident. Agree with the above note with the following additions/ exceptions: Briefly this is 67 year old female with history of asthma, iron deficiency anemia, arthritis, obesity who was admitted for evaluation of bilateral lymphedema and RLE cellulitis with draining ulcer of right ankle. Cellulitis has resolved. Echo revealed normal LVEF however diastolic function was not fully assessed as it was technically difficult study. Duplex negative for DVT. Multipodus boots on. Wound dressing was done by podiatry. Wound cultures reveal proteus and beta hemolytic group B. She also has EColi UTI. Patient has completed vancomycin and azactam. PT recommended TED. Discussed with CM in detail. Awaiting placement. Continue feosol and miralax. Continue vitamin C, MVI and zinc to promote wound healing. Continue nystatin powder for skin folds in bilateral lower extremities and also underneath the breast. Continue PO potassium. Complains of cough. Encourage to use incentive spirometry. CXR is normal. Upon discharge patient will follow up in [facility] clinic. Dr Clemente Cabrera
[2017-06-27] MEDS: POLYETHYLENE GLYCOL 3350 17 GM/Dose PACKET PO SCH ×2 (11:14→17:34)
[2017-06-27] MEDS: Pantoprazole 40 mg EC Tab PO SCH (11:16)
[2017-06-27] MEDS: Apap-Butalbital-Caffeine 325-50-40mg Tab PO PRN (11:16)
[2017-06-27] MEDS: Potassium Chloride 20 mEq/15 ml LIQ UD PO SCH (11:39)
--- NOTE | 2017-06-27 13:17 | CP.PCM.PN ---
<Orly Ramsey - Last Filed: 06/27/17 22:37> Subjective - Date & Time of Evaluation Date of Evaluation: 06/27/17 Time of Evaluation: 13:17 - Subjective Subjective: 67 y/o female seen at bedside today for right lower extremity cellulitis with swelling, lymphedema and healed superficial draining ulceration to medial ankle. Patient is AAOx3 and in NAD at time of visit. Patient denied of any acute overnight events. Patient denies any pain to her right leg at this time, saying its been gone for a few days now. Patient has no other pedal complaints. Pt denies F/C/N/V/CP/SOB. Objective - Vital Signs/Intake and Output Vital Signs (last 24 hours): Temp Pulse Resp BP Pulse Ox 98.4 F 83 18 148/78 98 06/27/17 07:30 06/27/17 11:19 06/27/17 07:30 06/27/17 11:19 06/27/17 07:30 Intake and Output: 06/27/17 06/27/17 06:59 18:59 Intake Total 200 Output Total 0 Balance 200 - Medications Medications: Current Medications Acetaminophen (Tylenol 325mg Tab) 650 mg PO Q4 PRN PRN Reason: Fever >100.4 F Last Admin: 06/15/17 23:29 Dose: 650 mg Acetaminophen/Butalbital/Caffeine (Fioricet) 1 tab PO Q4H PRN PRN Reason: Headache Last Admin: 06/27/17 11:16 Dose: 1 tab Albuterol/Ipratropium (Duoneb 3 Mg/0.5 Mg (3 Ml) Ud) 3 ml IH [id number] PRN PRN Reason: Shortness of Breath Last Admin: 06/26/17 23:20 Dose: 3 ml Ascorbic Acid (Vitamin C 500 Mg Tab) 500 mg PO BID [facility] Last Admin: 06/27/17 11:03 Dose: Not Given Benzonatate (Tessalon Perles) 100 mg PO TID PRN PRN Reason: Cough Last Admin: 06/27/17 11:19 Dose: 100 mg Docusate Sodium (Colace) 100 mg PO DAILY [facility] Last Admin: 06/27/17 11:16 Dose: 100 mg Ferrous Sulfate (Feosol) 324 mg PO TID [facility] Last Admin: 06/27/17 11:16 Dose: 324 mg Guaifenesin (Robitussin) 100 mg PO Q4H PRN PRN Reason: Cough Last Admin: 06/26/17 18:46 Dose: 100 mg Heparin Sodium (Porcine) (Heparin) 5,000 units SC Q12 [facility] PRN Reason: Protocol Last Admin: 06/27/17 11:15 Dose: 5,000 units Metoprolol Tartrate (Lopressor) 25 mg PO BID [facility] Last Admin: 06/27/17 11:19 Dose: 25 mg Multivitamins/Minerals (Therapeutic-M Tab) 1 tab PO 0800 [facility] Last Admin: 06/27/17 08:09 Dose: 1 tab Nystatin (Nystop Topical Powder) 1 gm TOP DAILY [facility] Last Admin: 06/27/17 10:00 Dose: 1 gm Pantoprazole Sodium (Protonix Ec Tab) 40 mg PO DAILY [facility] Last Admin: 06/27/17 11:16 Dose: 40 mg Polyethylene Glycol (Miralax) 17 gm PO BID [facility] Last Admin: 06/27/17 11:14 Dose: Not Given Potassium Chloride (Potassium Chloride Oral Soln) 20 meq PO DAILY [facility] Last Admin: 06/27/17 11:39 Dose: 20 meq Zinc Sulfate (Zinc Sulfate 220 Mg Cap) 220 mg PO DAILY [facility] Last Admin: 06/27/17 11:16 Dose: 220 mg - Labs Labs: 06/27/17 06:45 06/27/17 06:45 PT 13.1 SECONDS (9.4-12.5) H 06/15/17 11:00 INR 1.19 (0.93-1.08) H 06/15/17 11:00 APTT 31.3 Seconds (25.1-36.5) 06/15/17 11:00 - Constitutional Appears: Well, Non-toxic, No Acute Distress - Extremities Exam Additional comments: Right lower extremity exam: Vasc: DP/PT pulses 2/4 B/L. +2 pitting edema noted distal to tibial tuberosity B /L. Temperature gradient WNL B/L. CFT < 3 sec to all digits Derm: Cellulitis to right leg appears resolved with no visible erythema. Site of previous superficial ulceration which appears to have dermal layer with islands of hyperkeratotic skin and no active drainage. Malodor resolved. No purulent discharge noted. Neuro: Protective sensation grossly intact Ortho: No tenderness on palpation or elevation of right lower extremity - Neurological Exam Neurological Exam: Alert, Awake, Oriented x3 - Psychiatric Exam Psychiatric exam: Normal Affect, Normal Mood Assessment and Plan - Assessment and Plan (Free Text) Assessment: 67 y/o female with bilateral lymphedema and RLE cellulitis and swelling with healed superficial ulceration to right medial ankle Plan: Patient seen and evaluated at bedside Patient discussed in details with attending Dr. Cano Labs and vitals reviewed- afebrile, WBC 8.5 Cultures (Final): Proteus species and Beta hemolytic Strep Continue IV abx as per ID: Vancomycin Extremity ultrasound negative for DVT to RLE Medial ankle cleansed with saline and 4x4 gauze and lotion applied to the site Wound shows dermal layer and appears healed - no dressing applied today Multipodus boots to be worn at all times when in bed Patient is stable from podiatry standpoint Podiatry will continue to follow while in house <Buffy Cano - Last Filed: 06/28/17 14:51> Objective - Vital Signs/Intake and Output Vital Signs (last 24 hours): Temp Pulse Resp BP Pulse Ox 98.5 F 90 20 140/78 96 06/28/17 07:30 06/28/17 10:30 06/28/17 07:30 06/28/17 10:30 06/28/17 07:30 Intake and Output: 06/28/17 06/28/17 06:59 18:59 Intake Total 300 Balance 300 - Medications Medications: Current Medications Acetaminophen (Tylenol 325mg Tab) 650 mg PO Q4 PRN PRN Reason: Fever >100.4 F Last Admin: 06/15/17 23:29 Dose: 650 mg Acetaminophen/Butalbital/Caffeine (Fioricet) 1 tab PO Q4H PRN PRN Reason: Headache Last Admin: 06/27/17 11:16 Dose: 1 tab Albuterol/Ipratropium (Duoneb 3 Mg/0.5 Mg (3 Ml) Ud) 3 ml IH [id number] PRN PRN Reason: Shortness of Breath Last Admin: 06/26/17 23:20 Dose: 3 ml Ascorbic Acid (Vitamin C 500 Mg Tab) 500 mg PO BID [facility] Last Admin: 06/28/17 10:28 Dose: 500 mg Benzonatate (Tessalon Perles) 100 mg PO TID PRN PRN Reason: Cough Last Admin: 06/28/17 10:29 Dose: 100 mg Docusate Sodium (Colace) 100 mg PO DAILY [facility] Last Admin: 06/28/17 10:28 Dose: 100 mg Ferrous Sulfate (Feosol) 324 mg PO TID [facility] Last Admin: 06/28/17 10:29 Dose: 324 mg Guaifenesin (Robitussin) 100 mg PO Q4H PRN PRN Reason: Cough Last Admin: 06/28/17 04:08 Dose: 100 mg Heparin Sodium (Porcine) (Heparin) 5,000 units SC Q12 [facility] PRN Reason: Protocol Last Admin: 06/28/17 10:31 Dose: 5,000 units Metoprolol Tartrate (Lopressor) 25 mg PO BID [facility] Last Admin: 06/28/17 10:30 Dose: 25 mg Multivitamins/Minerals (Therapeutic-M Tab) 1 tab PO 0800 [facility] Last Admin: 06/28/17 10:36 Dose: 1 tab Nystatin (Nystop Topical Powder) 1 gm TOP DAILY [facility] Last Admin: 06/28/17 10:34 Dose: 1 gm Pantoprazole Sodium (Protonix Ec Tab) 40 mg PO DAILY [facility] Last Admin: 06/28/17 10:29 Dose: 40 mg Polyethylene Glycol (Miralax) 17 gm PO BID [facility] Last Admin: 06/28/17 10:34 Dose: Not Given Potassium Chloride (Potassium Chloride Oral Soln) 20 meq PO DAILY [facility] Last Admin: 06/28/17 10:29 Dose: 20 meq Zinc Sulfate (Zinc Sulfate 220 Mg Cap) 220 mg PO DAILY [facility] Last Admin: 06/28/17 10:37 Dose: 220 mg - Labs Labs: 06/28/17 06:15 06/28/17 06:15 PT 13.1 SECONDS (9.4-12.5) H 06/15/17 11:00 INR 1.19 (0.93-1.08) H 06/15/17 11:00 APTT 31.3 Seconds (25.1-36.5) 06/15/17 11:00 Attending/Attestation - Attestation I have personally seen and examined this patient.: Yes I have fully participated in the care of the patient.: Yes I have reviewed all pertinent clinical information, including history, physical exam and plan: Yes
--- NOTE | 2017-06-27 14:22 | CP.PCM.PN ---
Subjective - Date & Time of Evaluation Date of Evaluation: 06/27/17 Time of Evaluation: 12:15 - Subjective Subjective: Infectious Disease Follow Up: June 27, 2017 67 yo female presenting with 3 weeks of RLE ulceration, swelling and leaking from the wound as well as multiple falls in the past 3 weeks. The patient has an extensive medical history of asthma, arthritis, vitamin C deficiency, and possible thyroid disease. Had headaches and episodes of SOB overnight. draining RLE ulceration... cellulitis improved/resolved. Multiple chronic medical issues. Feeling tired today. Still with dry hacking cough. There is also some redness noted by nursing of the patient's buttocks. Objective - Vital Signs/Intake and Output Vital Signs (last 24 hours): Temp Pulse Resp BP Pulse Ox 98.4 F 83 18 148/78 98 06/27/17 07:30 06/27/17 11:19 06/27/17 07:30 06/27/17 11:19 06/27/17 07:30 Intake and Output: 06/27/17 06/27/17 06:59 18:59 Intake Total 200 Output Total 0 Balance 200 - Medications Medications: Current Medications Acetaminophen (Tylenol 325mg Tab) 650 mg PO Q4 PRN PRN Reason: Fever >100.4 F Last Admin: 06/15/17 23:29 Dose: 650 mg Acetaminophen/Butalbital/Caffeine (Fioricet) 1 tab PO Q4H PRN PRN Reason: Headache Last Admin: 06/27/17 11:16 Dose: 1 tab Albuterol/Ipratropium (Duoneb 3 Mg/0.5 Mg (3 Ml) Ud) 3 ml IH [id number] PRN PRN Reason: Shortness of Breath Last Admin: 06/26/17 23:20 Dose: 3 ml Ascorbic Acid (Vitamin C 500 Mg Tab) 500 mg PO BID [facility] Last Admin: 06/27/17 11:03 Dose: Not Given Benzonatate (Tessalon Perles) 100 mg PO TID PRN PRN Reason: Cough Last Admin: 06/27/17 11:19 Dose: 100 mg Docusate Sodium (Colace) 100 mg PO DAILY [facility] Last Admin: 06/27/17 11:16 Dose: 100 mg Ferrous Sulfate (Feosol) 324 mg PO TID [facility] Last Admin: 06/27/17 11:16 Dose: 324 mg Guaifenesin (Robitussin) 100 mg PO Q4H PRN PRN Reason: Cough Last Admin: 06/26/17 18:46 Dose: 100 mg Heparin Sodium (Porcine) (Heparin) 5,000 units SC Q12 [facility] PRN Reason: Protocol Last Admin: 06/27/17 11:15 Dose: 5,000 units Metoprolol Tartrate (Lopressor) 25 mg PO BID [facility] Last Admin: 06/27/17 11:19 Dose: 25 mg Multivitamins/Minerals (Therapeutic-M Tab) 1 tab PO 0800 [facility] Last Admin: 06/27/17 08:09 Dose: 1 tab Nystatin (Nystop Topical Powder) 1 gm TOP DAILY [facility] Last Admin: 06/27/17 10:00 Dose: 1 gm Pantoprazole Sodium (Protonix Ec Tab) 40 mg PO DAILY [facility] Last Admin: 06/27/17 11:16 Dose: 40 mg Polyethylene Glycol (Miralax) 17 gm PO BID [facility] Last Admin: 06/27/17 11:14 Dose: Not Given Potassium Chloride (Potassium Chloride Oral Soln) 20 meq PO DAILY [facility] Last Admin: 06/27/17 11:39 Dose: 20 meq Zinc Sulfate (Zinc Sulfate 220 Mg Cap) 220 mg PO DAILY [facility] Last Admin: 06/27/17 11:16 Dose: 220 mg - Labs Labs: 06/27/17 06:45 06/27/17 06:45 PT 13.1 SECONDS (9.4-12.5) H 06/15/17 11:00 INR 1.19 (0.93-1.08) H 06/15/17 11:00 APTT 31.3 Seconds (25.1-36.5) 06/15/17 11:00 - Constitutional Appears: Non-toxic, No Acute Distress, Chronically Ill - Head Exam Head Exam: ATRAUMATIC, NORMOCEPHALIC Additional comments: marked hair loss. - Eye Exam Eye Exam: EOMI, PERRL Pupil Exam: NORMAL ACCOMODATION, PERRL - ENT Exam ENT Exam: Mucous Membranes Moist, Normal External Ear Exam, TM's Normal Bilaterally - Neck Exam Neck Exam: Full ROM, Normal Inspection - Respiratory Exam Respiratory Exam: Clear to Ausculation Bilateral, NORMAL BREATHING PATTERN. absent: Rales, Rhonchi, Wheezes - Cardiovascular Exam Cardiovascular Exam: REGULAR RHYTHM, RRR, +S1, +S2 - GI/Abdominal Exam GI & Abdominal Exam: Soft, Normal Bowel Sounds. absent: Distended, Tenderness - Extremities Exam Extremities Exam: Joint Swelling, Pedal Edema Additional comments: RLE less swollen R ankle with ulcer - improving slowly b/l chronic venous changes tinea and chronic venous stasis changes. Signs of arthritis in joints of the hands. - Neurological Exam Neurological Exam: Alert, Awake, CN II-XII Intact, Oriented x3 - Psychiatric Exam Psychiatric exam: Normal Affect, Normal Mood - Skin Skin Exam: Intact, Normal Color Additional comments: Right lower leg superficial ulceration appears to be mostly healed. Cellultitis of right lower leg resolved. 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 The patient with leukocytosis. Consider use of Aztreonam for antibiotic coverage for now. Await cultures especially urine cultures. Diabetes and HTN history? Local wound care. Elevated ESR and C-reactive protein. Continue Vancomycin and Aztreonam for antibiotic coverage. UTI with E. coli sensitive to Azactam. Maintain vancomycin for cellulitis IV. For UTI for 5-7 days treatment. Completed now. Supportive care. Cellulitis appears improved. No additional issues. Social issues currently. Thank you for allowing me to participate in the care of the patient, we will follow with you.
[2017-06-27] MEDS: guaiFENesin 100 mg/5 ml Syrup UD PO PRN (21:24)
[2017-06-28] MEDS: guaiFENesin 100 mg/5 ml Syrup UD PO PRN ×2 (04:08→22:02)
[2017-06-28 07:03] LABS: BLOOD UREA NITROGEN 10 mg/dL (7-21); CALCIUM 8.1 mg/dL (8.4-10.5); GFR AFRICAN-AMERICAN > 60; GFR NON-AFRICAN AMERICAN > 60
[2017-06-28 07:19] LABS: BASO # 0.07 K/mm3 (0.0-2.0); BASO % 0.8 % (0.0-3.0); EOS # 0.7 (0.0-0.7); EOS % 8.5 % (1.5-5.0); GRAN # 5.15 (1.4-6.5); GRAN % 61.7 % (50.0-68.0); HEMOGLOBIN 8.4 g/dL (12.0-16.0); LYMPH # 1.5 (1.2-3.4); LYMPH % 18.4 % (22.0-35.0); MEAN CELL VOLUME 81.1 fl (80.0-105.0); MEAN CORPUSCULAR HGB CONC 28.4 g/dl (31.0-37.0); MEAN PLATELET VOLUME 8.3 fl (7.0-11.0); MONO # 0.9 (0.1-0.6); MONO % 10.6 % (1.0-6.0); RBC 3.65 10^6/uL (3.5-6.1); RED CELL DISTRIBUTION WIDTH 22.8 % (11.5-14.5); WHITE BLOOD COUNT 8.4 10^3/ul (4.5-11.0)
[2017-06-28] MEDS: Potassium Chloride 20 mEq/15 ml LIQ UD PO SCH (10:29)
[2017-06-28] MEDS: Pantoprazole 40 mg EC Tab PO SCH (10:29)
--- NOTE | 2017-06-28 10:33 | PN ---
SUBJECTIVE: A 67-year-old female seen at bedside for continued evaluation and management of resolving right lower extremity cellulitis. Her superficial wound is now almost resolved and she offers no new complaints. DATE: 06/26/2017 OBJECTIVE: VITAL SIGNS: Reveal temperature of 97.8, pulse rate of 85, blood pressure of 161/79, respiratory rate of 18. EXTREMITIES: There is palpable pedal pulses noted bilaterally. Pitting edema noted to the right lower leg, which is greater than the left lower leg. There is decreasing erythema to both lower legs. There is a superficial ulceration at the ankle that shows no signs of drainage. No purulence. The wound does not probe to tendon or bone. Protective sensation is intact using 5.07 g monofilament wire testing. LABORATORY FINDINGS: Reveal a white count of 8, hemoglobin of 8.8, hematocrit of 29.4, platelet count of 460. Most recent culture on the right ankle wound reveals Proteus mirabilis and beta-hemolytic strep group B growth. ASSESSMENT: A 67-year-old female with bilateral lymphedema and resolving right lower extremity cellulitis secondary to superficial ulceration to the right medial ankle. PLAN: The patient was seen and evaluated. The wound was cleansed with normal sterile saline. We will apply lotion at bedside daily. She is to continue wearing the multi Podus boots at all times while in bed. Dry sterile dressing is no longer needed to be applied. Jarrett Tariq DPM [facility]
[2017-06-28] MEDS: Nystatin 100,000 Units/gm Topical Pow(15 gm) TOP SCH (10:34)
[2017-06-28] MEDS: POLYETHYLENE GLYCOL 3350 17 GM/Dose PACKET PO SCH ×2 (10:34→17:35)
[2017-06-28] MEDS: Multivitamin With Minerals Tab PO SCH (10:36)
--- NOTE | 2017-06-28 13:39 | CP.PCM.PN ---
<MichaelKearan - Last Filed: 06/28/17 13:43> Subjective - Date & Time of Evaluation Date of Evaluation: 06/28/17 Time of Evaluation: 10:39 - Subjective Subjective: Patient seen and examined at bedside. Per nursing no acute events occurred overnight. Patient reports a dry cough and still some foot discomfort. The patient denies any chest pain, shortness of breath, lightheadedness, dizziness, nausea, vomiting, numbness or tingling in the hands or feet, or any other complaints. Objective - Vital Signs/Intake and Output Vital Signs (last 24 hours): Temp Pulse Resp BP Pulse Ox 98.5 F 90 20 140/78 96 06/28/17 07:30 06/28/17 10:30 06/28/17 07:30 06/28/17 10:30 06/28/17 07:30 Intake and Output: 06/28/17 06/28/17 06:59 18:59 Intake Total 300 Balance 300 - Medications Medications: Current Medications Acetaminophen (Tylenol 325mg Tab) 650 mg PO Q4 PRN PRN Reason: Fever >100.4 F Last Admin: 06/15/17 23:29 Dose: 650 mg Acetaminophen/Butalbital/Caffeine (Fioricet) 1 tab PO Q4H PRN PRN Reason: Headache Last Admin: 06/27/17 11:16 Dose: 1 tab Albuterol/Ipratropium (Duoneb 3 Mg/0.5 Mg (3 Ml) Ud) 3 ml IH [id number] PRN PRN Reason: Shortness of Breath Last Admin: 06/26/17 23:20 Dose: 3 ml Ascorbic Acid (Vitamin C 500 Mg Tab) 500 mg PO BID [facility] Last Admin: 06/28/17 10:28 Dose: 500 mg Benzonatate (Tessalon Perles) 100 mg PO TID PRN PRN Reason: Cough Last Admin: 06/28/17 10:29 Dose: 100 mg Docusate Sodium (Colace) 100 mg PO DAILY [facility] Last Admin: 06/28/17 10:28 Dose: 100 mg Ferrous Sulfate (Feosol) 324 mg PO TID [facility] Last Admin: 06/28/17 10:29 Dose: 324 mg Guaifenesin (Robitussin) 100 mg PO Q4H PRN PRN Reason: Cough Last Admin: 06/28/17 04:08 Dose: 100 mg Heparin Sodium (Porcine) (Heparin) 5,000 units SC Q12 [facility] PRN Reason: Protocol Last Admin: 06/28/17 10:31 Dose: 5,000 units Metoprolol Tartrate (Lopressor) 25 mg PO BID [facility] Last Admin: 06/28/17 10:30 Dose: 25 mg Multivitamins/Minerals (Therapeutic-M Tab) 1 tab PO 0800 [facility] Last Admin: 06/28/17 10:36 Dose: 1 tab Nystatin (Nystop Topical Powder) 1 gm TOP DAILY [facility] Last Admin: 06/28/17 10:34 Dose: 1 gm Pantoprazole Sodium (Protonix Ec Tab) 40 mg PO DAILY [facility] Last Admin: 06/28/17 10:29 Dose: 40 mg Polyethylene Glycol (Miralax) 17 gm PO BID [facility] Last Admin: 06/28/17 10:34 Dose: Not Given Potassium Chloride (Potassium Chloride Oral Soln) 20 meq PO DAILY [facility] Last Admin: 06/28/17 10:29 Dose: 20 meq Zinc Sulfate (Zinc Sulfate 220 Mg Cap) 220 mg PO DAILY [facility] Last Admin: 06/28/17 10:37 Dose: 220 mg - Labs Labs: 06/28/17 06:15 06/28/17 06:15 PT 13.1 SECONDS (9.4-12.5) H 06/15/17 11:00 INR 1.19 (0.93-1.08) H 06/15/17 11:00 APTT 31.3 Seconds (25.1-36.5) 06/15/17 11:00 - Head Exam Head Exam: ATRAUMATIC, NORMAL INSPECTION, NORMOCEPHALIC - Eye Exam Eye Exam: EOMI, Normal appearance, PERRL Pupil Exam: PERRL. absent: Irregular, Unequal - ENT Exam ENT Exam: Mucous Membranes Moist, Normal Exam - Neck Exam Neck Exam: Normal Inspection. absent: Lymphadenopathy, Thyromegaly - Respiratory Exam Respiratory Exam: Clear to Ausculation Bilateral, NORMAL BREATHING PATTERN. absent: Chest Wall Tenderness, Prolonged Expiratory Phase, Respiratory Distress - Cardiovascular Exam Cardiovascular Exam: REGULAR RHYTHM, +S1, +S2 - GI/Abdominal Exam GI & Abdominal Exam: Soft, Normal Bowel Sounds - Back Exam Back Exam: NORMAL INSPECTION. absent: CVA tenderness (L), CVA tenderness (R), paraspinal tenderness - Neurological Exam Neurological Exam: Alert, Awake, CN II-XII Intact, Oriented x3 - Psychiatric Exam Psychiatric exam: Normal Affect, Normal Mood - Skin Skin Exam: Dry, Normal Color, Warm Assessment and Plan - Assessment and Plan (Free Text) Assessment: 67 F with a PMHx of asthma, arthritis, and vitamin C deficiency who presents with RLE ulcer/cellulitis and draining right lower extremity ulcer, along with UTI. Pt completed course of Vancomycin and Azobactam for cellulitis and UTI. Pt received chest x-ray for cough and SOB, which is negative for any acute process. Incentive spirometer given. Pt is pending placement in [facility] at this time. Plan: 1. RLE cellulitis/ulcer with culture positive for Proteus Mirabilis and beta hemolytic group b strep -Resolved - continue tylenol prn fevers - MV/Vitamin C and Zinc - Physical therapy recommends [facility] -Podiatry consulted, rec's appreciated. - multipodus boot to be worn at all times as per podiatry -Patient pending placement. Sister expected to go to patient's job to try and obtain benefits. Will f/u. 2. Hypokalemia - Will start daily potassium supplementation - WNL today 3. Headache - continue fioricet PRN 4. Shortness of breath - Chest x-ray clear - Incentive spirometry - continue duoneb PRN - O2 Sat >90% on room air - cont O2 NC PRN 5. UTI - Completed Azactam course 6. Anemia likely 2/2 iron deficiency anemia - Hg stable -Continue Feosol -trend H/H 7. vitamin C deficiency - continue MV and Vitamin C ordered 8. GI/DVT ppx - Heparin - Protonix <Clemente Cabrera B - Last Filed: 06/29/17 14:48> Objective - Vital Signs/Intake and Output Vital Signs (last 24 hours): Temp Pulse Resp BP Pulse Ox 97.9 F 89 22 160/82 H 94 L 06/29/17 07:30 06/29/17 10:48 06/29/17 07:30 06/29/17 10:48 06/29/17 07:30 Intake and Output: 06/29/17 06/29/17 06:59 18:59 Intake Total 900 Balance 900 - Medications Medications: Current Medications Acetaminophen (Tylenol 325mg Tab) 650 mg PO Q4 PRN PRN Reason: Fever >100.4 F Last Admin: 06/15/17 23:29 Dose: 650 mg Acetaminophen/Butalbital/Caffeine (Fioricet) 1 tab PO Q4H PRN PRN Reason: Headache Last Admin: 06/29/17 06:59 Dose: 1 tab Albuterol/Ipratropium (Duoneb 3 Mg/0.5 Mg (3 Ml) Ud) 3 ml IH [id number] PRN PRN Reason: Shortness of Breath Last Admin: 06/26/17 23:20 Dose: 3 ml Ascorbic Acid (Vitamin C 500 Mg Tab) 500 mg PO BID [facility] Last Admin: 06/29/17 10:59 Dose: Not Given Benzonatate (Tessalon Perles) 100 mg PO TID [facility] Docusate Sodium (Colace) 100 mg PO DAILY [facility] Last Admin: 06/29/17 10:43 Dose: 100 mg Ferrous Sulfate (Feosol) 324 mg PO TID [facility] Last Admin: 06/29/17 10:44 Dose: 324 mg Guaifenesin (Robitussin) 100 mg PO Q4H PRN PRN Reason: Cough Last Admin: 06/28/17 22:02 Dose: 100 mg Heparin Sodium (Porcine) (Heparin) 5,000 units SC Q12 [facility] PRN Reason: Protocol Last Admin: 06/29/17 10:46 Dose: 5,000 units Metoprolol Tartrate (Lopressor) 25 mg PO BID [facility] Last Admin: 06/29/17 10:48 Dose: 25 mg Multivitamins/Minerals (Therapeutic-M Tab) 1 tab PO 0800 [facility] Last Admin: 06/29/17 08:36 Dose: 1 tab Nystatin (Nystop Topical Powder) 1 gm TOP DAILY [facility] Last Admin: 06/29/17 10:51 Dose: 1 gm Pantoprazole Sodium (Protonix Ec Tab) 40 mg PO DAILY [facility] Last Admin: 06/29/17 10:51 Dose: 40 mg Polyethylene Glycol (Miralax) 17 gm PO BID [facility] Last Admin: 06/29/17 10:47 Dose: 17 gm Potassium Chloride (Potassium Chloride Oral Soln) 20 meq PO DAILY [facility] Last Admin: 06/29/17 10:45 Dose: 20 meq Potassium Chloride (Klor-Con 10) 10 meq PO BRK [facility] Zinc Sulfate (Zinc Sulfate 220 Mg Cap) 220 mg PO DAILY [facility] Last Admin: 06/29/17 10:43 Dose: 220 mg - Labs Labs: 06/29/17 06:15 06/29/17 06:15 PT 13.1 SECONDS (9.4-12.5) H 06/15/17 11:00 INR 1.19 (0.93-1.08) H 06/15/17 11:00 APTT 31.3 Seconds (25.1-36.5) 06/15/17 11:00 Attending/Attestation - Attestation I have personally seen and examined this patient.: Yes I have fully participated in the care of the patient.: Yes I have reviewed all pertinent clinical information, including history, physical exam and plan: Yes Notes (Text): I have seen and examined the patient with the resident. Agree with the above note with the following additions/ exceptions: Briefly this is 67 year old female with history of asthma, iron deficiency anemia, arthritis, obesity who was admitted for evaluation of bilateral lymphedema and RLE cellulitis with draining ulcer of right ankle. Cellulitis has resolved. Echo revealed normal LVEF however diastolic function was not fully assessed as it was technically difficult study. Duplex negative for DVT. Multipodus boots on. Wound dressing was done by podiatry. Wound cultures reveal proteus and beta hemolytic group B. She also has EColi UTI. Patient has completed vancomycin and azactam. PT recommended TED. Discussed with CM in detail. Awaiting placement. Continue feosol and miralax. Continue vitamin C, MVI and zinc to promote wound healing. Continue nystatin powder for skin folds in bilateral lower extremities and also underneath the breast. Continue PO potassium. Complains of cough. Encourage to use incentive spirometry. CXR is normal. Upon discharge patient will follow up in [facility] clinic. Dr Clemente Cabrera
--- NOTE | 2017-06-28 14:25 | US ---
PROCEDURE: Left upper extremity venous ultrasound HISTORY: Arm pain and swelling. Evaluate for deep venous thrombosis. PHYSICIAN(S): Nikhil Sanchez MD. FINDINGS: The visualized leftinternal jugular vein is sonographically normal and compressible. No evidence of obstruction or thrombus is seen. The visualized segments of the left subclavian vein are patent with normal waveforms. No sonographic evidence of obstruction or thrombosis is seen. The visualized deep venous system of the proximal leftupper extremity is sonographically normal and compressible. IMPRESSION: 1. No sonographic evidence for deep venous thrombosis in the visualized segments of the left upper extremity.
--- NOTE | 2017-06-28 16:36 | CP.PCM.PN ---
Subjective - Date & Time of Evaluation Date of Evaluation: 06/28/17 Time of Evaluation: 13:30 - Subjective Subjective: Infectious Disease Follow Up: June 28, 2017 67 yo female presenting with 3 weeks of RLE ulceration, swelling and leaking from the wound as well as multiple falls in the past 3 weeks. The patient has an extensive medical history of asthma, arthritis, vitamin C deficiency, and possible thyroid disease. Had headaches and episodes of SOB overnight. draining RLE ulceration... cellulitis improved/resolved. Multiple chronic medical issues. Feeling tired today. Still with dry cough. There is also some redness noted by nursing of the patient's buttocks. Otherwise stable. Objective - Vital Signs/Intake and Output Vital Signs (last 24 hours): Temp Pulse Resp BP Pulse Ox 98.5 F 90 20 140/78 96 06/28/17 07:30 06/28/17 10:30 06/28/17 07:30 06/28/17 10:30 06/28/17 07:30 Intake and Output: 06/28/17 06/28/17 06:59 18:59 Intake Total 300 720 Balance 300 720 - Medications Medications: Current Medications Acetaminophen (Tylenol 325mg Tab) 650 mg PO Q4 PRN PRN Reason: Fever >100.4 F Last Admin: 06/15/17 23:29 Dose: 650 mg Acetaminophen/Butalbital/Caffeine (Fioricet) 1 tab PO Q4H PRN PRN Reason: Headache Last Admin: 06/27/17 11:16 Dose: 1 tab Albuterol/Ipratropium (Duoneb 3 Mg/0.5 Mg (3 Ml) Ud) 3 ml IH [id number] PRN PRN Reason: Shortness of Breath Last Admin: 06/26/17 23:20 Dose: 3 ml Ascorbic Acid (Vitamin C 500 Mg Tab) 500 mg PO BID [facility] Last Admin: 06/28/17 10:28 Dose: 500 mg Benzonatate (Tessalon Perles) 100 mg PO TID PRN PRN Reason: Cough Last Admin: 06/28/17 10:29 Dose: 100 mg Docusate Sodium (Colace) 100 mg PO DAILY [facility] Last Admin: 06/28/17 10:28 Dose: 100 mg Ferrous Sulfate (Feosol) 324 mg PO TID [facility] Last Admin: 06/28/17 10:29 Dose: 324 mg Guaifenesin (Robitussin) 100 mg PO Q4H PRN PRN Reason: Cough Last Admin: 06/28/17 04:08 Dose: 100 mg Heparin Sodium (Porcine) (Heparin) 5,000 units SC Q12 [facility] PRN Reason: Protocol Last Admin: 06/28/17 10:31 Dose: 5,000 units Metoprolol Tartrate (Lopressor) 25 mg PO BID [facility] Last Admin: 06/28/17 10:30 Dose: 25 mg Multivitamins/Minerals (Therapeutic-M Tab) 1 tab PO 0800 [facility] Last Admin: 06/28/17 10:36 Dose: 1 tab Nystatin (Nystop Topical Powder) 1 gm TOP DAILY [facility] Last Admin: 06/28/17 10:34 Dose: 1 gm Pantoprazole Sodium (Protonix Ec Tab) 40 mg PO DAILY [facility] Last Admin: 06/28/17 10:29 Dose: 40 mg Polyethylene Glycol (Miralax) 17 gm PO BID [facility] Last Admin: 06/28/17 10:34 Dose: Not Given Potassium Chloride (Potassium Chloride Oral Soln) 20 meq PO DAILY [facility] Last Admin: 06/28/17 10:29 Dose: 20 meq Zinc Sulfate (Zinc Sulfate 220 Mg Cap) 220 mg PO DAILY [facility] Last Admin: 06/28/17 10:37 Dose: 220 mg - Labs Labs: 06/28/17 06:15 06/28/17 06:15 PT 13.1 SECONDS (9.4-12.5) H 06/15/17 11:00 INR 1.19 (0.93-1.08) H 06/15/17 11:00 APTT 31.3 Seconds (25.1-36.5) 06/15/17 11:00 - Constitutional Appears: Non-toxic, No Acute Distress, Chronically Ill - Head Exam Head Exam: ATRAUMATIC, NORMOCEPHALIC Additional comments: marked hair loss - Eye Exam Eye Exam: EOMI, PERRL Pupil Exam: NORMAL ACCOMODATION, PERRL - ENT Exam ENT Exam: Mucous Membranes Moist, Normal External Ear Exam, TM's Normal Bilaterally - Neck Exam Neck Exam: Full ROM, Normal Inspection - Respiratory Exam Respiratory Exam: Clear to Ausculation Bilateral, NORMAL BREATHING PATTERN. absent: Rales, Rhonchi, Wheezes - Cardiovascular Exam Cardiovascular Exam: REGULAR RHYTHM, RRR, +S1, +S2 - GI/Abdominal Exam GI & Abdominal Exam: Soft, Tenderness, Normal Bowel Sounds. absent: Distended - Extremities Exam Extremities Exam: Joint Swelling, Pedal Edema Additional comments: RLE less swollen R ankle with ulcer - improving slowly b/l chronic venous changes tinea and chronic venous stasis changes. Signs of arthritis in joints of the hands. - Neurological Exam Neurological Exam: Alert, Awake, CN II-XII Intact, Oriented x3 - Psychiatric Exam Psychiatric exam: Normal Affect, Normal Mood - Skin Skin Exam: Intact, Normal Color Additional comments: Right lower leg superficial ulceration appears to be mostly healed. Cellultitis of right lower leg resolved. Assessment and Plan - Assessment and Plan (Free Text) Assessment: 67 yo female with multiple medical issues with PCN allergy diagnosed as a teenager verified by an Outcomes Analyst. The patient with leukocytosis. Consider use of Aztreonam for antibiotic coverage for now. Await cultures especially urine cultures. Diabetes and HTN history? Local wound care. Elevated ESR and C-reactive protein. Continue Vancomycin and Aztreonam for antibiotic coverage. UTI with E. coli sensitive to Azactam. Maintain vancomycin for cellulitis IV. For UTI for 5-7 days treatment. Completed now. Supportive care. Cellulitis appears improved. No additional issues. Social issues currently. Thank you for allowing me to participate in the care of the patient, we will follow with you.
[2017-06-29 06:56] LABS: BASO # 0.06 K/mm3 (0.0-2.0); BASO % 0.6 % (0.0-3.0); EOS # 0.9 (0.0-0.7); EOS % 9.8 % (1.5-5.0); GRAN # 5.91 (1.4-6.5); GRAN % 61.8 % (50.0-68.0); HEMOGLOBIN 8.6 g/dL (12.0-16.0); LYMPH # 1.6 (1.2-3.4); LYMPH % 16.4 % (22.0-35.0); MEAN CELL VOLUME 80.7 fl (80.0-105.0); MEAN CORPUSCULAR HEMOGLOBIN 23.4 pg (25.0-35.0); MEAN CORPUSCULAR HGB CONC 29.1 g/dl (31.0-37.0); MEAN PLATELET VOLUME 8.4 fl (7.0-11.0); MONO # 1.1 (0.1-0.6); MONO % 11.4 % (1.0-6.0); RBC 3.67 10^6/uL (3.5-6.1); RED CELL DISTRIBUTION WIDTH 23.1 % (11.5-14.5); WHITE BLOOD COUNT 9.6 10^3/ul (4.5-11.0)
[2017-06-29] MEDS: Apap-Butalbital-Caffeine 325-50-40mg Tab PO PRN ×2 (06:59→17:42)
[2017-06-29 07:13] LABS: BLOOD UREA NITROGEN 12 mg/dL (7-21); CALCIUM 8.1 mg/dL (8.4-10.5); GFR AFRICAN-AMERICAN > 60; GFR NON-AFRICAN AMERICAN > 60
[2017-06-29] MEDS: Multivitamin With Minerals Tab PO SCH (08:36)
[2017-06-29] MEDS: Potassium Chloride 20 mEq/15 ml LIQ UD PO SCH (10:45)
[2017-06-29] MEDS: POLYETHYLENE GLYCOL 3350 17 GM/Dose PACKET PO SCH ×2 (10:47→17:44)
[2017-06-29] MEDS: Pantoprazole 40 mg EC Tab PO SCH (10:51)
[2017-06-29] MEDS: Nystatin 100,000 Units/gm Topical Pow(15 gm) TOP SCH (10:51)
--- NOTE | 2017-06-29 11:47 | CP.PCM.PN ---
Subjective - Date & Time of Evaluation Date of Evaluation: 06/29/17 Time of Evaluation: 11:00 - Subjective Subjective: Infectious Disease Follow Up: June 29, 2017 67 yo female presenting with 3 weeks of RLE ulceration, swelling and leaking from the wound as well as multiple falls in the past 3 weeks. The patient has an extensive medical history of asthma, arthritis, vitamin C deficiency, and possible thyroid disease. Had headaches and episodes of SOB overnight. draining RLE ulceration... cellulitis improved/resolved. Multiple chronic medical issues. Some fatigue today. Still with dry cough. There is also some redness noted by nursing of the patient's buttocks. Otherwise stable. Objective - Vital Signs/Intake and Output Vital Signs (last 24 hours): Temp Pulse Resp BP Pulse Ox 97.9 F 89 22 160/82 H 94 L 06/29/17 07:30 06/29/17 10:48 06/29/17 07:30 06/29/17 10:48 06/29/17 07:30 Intake and Output: 06/29/17 06/29/17 06:59 18:59 Intake Total 900 Balance 900 - Medications Medications: Current Medications Acetaminophen (Tylenol 325mg Tab) 650 mg PO Q4 PRN PRN Reason: Fever >100.4 F Last Admin: 06/15/17 23:29 Dose: 650 mg Acetaminophen/Butalbital/Caffeine (Fioricet) 1 tab PO Q4H PRN PRN Reason: Headache Last Admin: 06/29/17 06:59 Dose: 1 tab Albuterol/Ipratropium (Duoneb 3 Mg/0.5 Mg (3 Ml) Ud) 3 ml IH [id number] PRN PRN Reason: Shortness of Breath Last Admin: 06/26/17 23:20 Dose: 3 ml Ascorbic Acid (Vitamin C 500 Mg Tab) 500 mg PO BID [facility] Last Admin: 06/29/17 10:59 Dose: Not Given Benzonatate (Tessalon Perles) 100 mg PO TID PRN PRN Reason: Cough Last Admin: 06/28/17 10:29 Dose: 100 mg Docusate Sodium (Colace) 100 mg PO DAILY [facility] Last Admin: 06/29/17 10:43 Dose: 100 mg Ferrous Sulfate (Feosol) 324 mg PO TID [facility] Last Admin: 06/29/17 10:44 Dose: 324 mg Guaifenesin (Robitussin) 100 mg PO Q4H PRN PRN Reason: Cough Last Admin: 06/28/17 22:02 Dose: 100 mg Heparin Sodium (Porcine) (Heparin) 5,000 units SC Q12 [facility] PRN Reason: Protocol Last Admin: 06/29/17 10:46 Dose: 5,000 units Metoprolol Tartrate (Lopressor) 25 mg PO BID [facility] Last Admin: 06/29/17 10:48 Dose: 25 mg Multivitamins/Minerals (Therapeutic-M Tab) 1 tab PO 0800 [facility] Last Admin: 06/29/17 08:36 Dose: 1 tab Nystatin (Nystop Topical Powder) 1 gm TOP DAILY [facility] Last Admin: 06/29/17 10:51 Dose: 1 gm Pantoprazole Sodium (Protonix Ec Tab) 40 mg PO DAILY [facility] Last Admin: 06/29/17 10:51 Dose: 40 mg Polyethylene Glycol (Miralax) 17 gm PO BID [facility] Last Admin: 06/29/17 10:47 Dose: 17 gm Potassium Chloride (Potassium Chloride Oral Soln) 20 meq PO DAILY [facility] Last Admin: 06/29/17 10:45 Dose: 20 meq Zinc Sulfate (Zinc Sulfate 220 Mg Cap) 220 mg PO DAILY [facility] Last Admin: 06/29/17 10:43 Dose: 220 mg - Labs Labs: 06/29/17 06:15 06/29/17 06:15 PT 13.1 SECONDS (9.4-12.5) H 06/15/17 11:00 INR 1.19 (0.93-1.08) H 06/15/17 11:00 APTT 31.3 Seconds (25.1-36.5) 06/15/17 11:00 - Constitutional Appears: Non-toxic, No Acute Distress, Chronically Ill - Head Exam Head Exam: ATRAUMATIC, NORMOCEPHALIC Additional comments: marked hair loss - Eye Exam Eye Exam: EOMI, PERRL Pupil Exam: NORMAL ACCOMODATION, PERRL - ENT Exam ENT Exam: Mucous Membranes Moist, Normal External Ear Exam, TM's Normal Bilaterally - Neck Exam Neck Exam: Full ROM, Normal Inspection - Respiratory Exam Respiratory Exam: Clear to Ausculation Bilateral, NORMAL BREATHING PATTERN. absent: Rales, Rhonchi, Wheezes - Cardiovascular Exam Cardiovascular Exam: REGULAR RHYTHM, RRR, +S1, +S2 - GI/Abdominal Exam GI & Abdominal Exam: Soft, Normal Bowel Sounds. absent: Distended, Tenderness - Extremities Exam Extremities Exam: Joint Swelling, Pedal Edema Additional comments: RLE less swollen R ankle with ulcer - improving b/l chronic venous changes tinea and chronic venous stasis changes. Signs of arthritis in joints of the hands. - Neurological Exam Neurological Exam: Alert, Awake, CN II-XII Intact, Oriented x3 - Psychiatric Exam Psychiatric exam: Normal Affect, Normal Mood - Skin Skin Exam: Normal Color Additional comments: Right lower leg superficial ulceration appears to be mostly healed. Cellultitis of right lower leg resolved. Assessment and Plan - Assessment and Plan (Free Text) Assessment: 67 yo female with multiple medical issues with PCN allergy diagnosed as a teenager verified by an [employer] Super[employer]. The patient with leukocytosis. Consider use of Aztreonam for antibiotic coverage for now. Await cultures especially urine cultures. Diabetes and HTN history? Local wound care. Elevated ESR and C-reactive protein. Continue Vancomycin and Aztreonam for antibiotic coverage. UTI with E. coli sensitive to Azactam. Maintain vancomycin for cellulitis IV. For UTI for 5-7 days treatment. Completed now. Supportive care. Cellulitis appears improved. No additional issues. Social issues currently. Thank you for allowing me to participate in the care of the patient, we will follow with you.
--- NOTE | 2017-06-29 14:27 | CP.PCM.PN ---
<MichaelKearan - Last Filed: 06/29/17 15:57> Subjective - Date & Time of Evaluation Date of Evaluation: 06/29/17 Time of Evaluation: 14:26 - Subjective Subjective: Patient seen and examined at bedside. Per nursing no acute events occurred overnight. The patient was complaining of a cough today during examination. The patient denies any chest pain, lightheadedness, dizziness, nausea, vomiting , fevers, chills, syncopal episodes, or any other complaints. Objective - Vital Signs/Intake and Output Vital Signs (last 24 hours): Temp Pulse Resp BP Pulse Ox 97.9 F 89 22 160/82 H 94 L 06/29/17 07:30 06/29/17 10:48 06/29/17 07:30 06/29/17 10:48 06/29/17 07:30 Intake and Output: 06/29/17 06/29/17 06:59 18:59 Intake Total 900 Balance 900 - Medications Medications: Current Medications Acetaminophen (Tylenol 325mg Tab) 650 mg PO Q4 PRN PRN Reason: Fever >100.4 F Last Admin: 06/15/17 23:29 Dose: 650 mg Acetaminophen/Butalbital/Caffeine (Fioricet) 1 tab PO Q4H PRN PRN Reason: Headache Last Admin: 06/29/17 06:59 Dose: 1 tab Albuterol/Ipratropium (Duoneb 3 Mg/0.5 Mg (3 Ml) Ud) 3 ml IH [id number] PRN PRN Reason: Shortness of Breath Last Admin: 06/26/17 23:20 Dose: 3 ml Ascorbic Acid (Vitamin C 500 Mg Tab) 500 mg PO BID [facility] Last Admin: 06/29/17 10:59 Dose: Not Given Benzonatate (Tessalon Perles) 100 mg PO TID [facility] Docusate Sodium (Colace) 100 mg PO DAILY [facility] Last Admin: 06/29/17 10:43 Dose: 100 mg Ferrous Sulfate (Feosol) 324 mg PO TID [facility] Last Admin: 06/29/17 10:44 Dose: 324 mg Guaifenesin (Robitussin) 100 mg PO Q4H PRN PRN Reason: Cough Last Admin: 06/28/17 22:02 Dose: 100 mg Heparin Sodium (Porcine) (Heparin) 5,000 units SC Q12 [facility] PRN Reason: Protocol Last Admin: 06/29/17 10:46 Dose: 5,000 units Metoprolol Tartrate (Lopressor) 25 mg PO BID [facility] Last Admin: 06/29/17 10:48 Dose: 25 mg Multivitamins/Minerals (Therapeutic-M Tab) 1 tab PO 0800 [facility] Last Admin: 06/29/17 08:36 Dose: 1 tab Nystatin (Nystop Topical Powder) 1 gm TOP DAILY [facility] Last Admin: 06/29/17 10:51 Dose: 1 gm Pantoprazole Sodium (Protonix Ec Tab) 40 mg PO DAILY [facility] Last Admin: 06/29/17 10:51 Dose: 40 mg Polyethylene Glycol (Miralax) 17 gm PO BID [facility] Last Admin: 06/29/17 10:47 Dose: 17 gm Potassium Chloride (Potassium Chloride Oral Soln) 20 meq PO DAILY [facility] Last Admin: 06/29/17 10:45 Dose: 20 meq Potassium Chloride (Klor-Con 10) 10 meq PO BRK [facility] Zinc Sulfate (Zinc Sulfate 220 Mg Cap) 220 mg PO DAILY [facility] Last Admin: 06/29/17 10:43 Dose: 220 mg - Labs Labs: 06/29/17 06:15 06/29/17 06:15 PT 13.1 SECONDS (9.4-12.5) H 06/15/17 11:00 INR 1.19 (0.93-1.08) H 06/15/17 11:00 APTT 31.3 Seconds (25.1-36.5) 06/15/17 11:00 - Head Exam Head Exam: ATRAUMATIC, NORMAL INSPECTION, NORMOCEPHALIC - Eye Exam Eye Exam: EOMI, Normal appearance, PERRL. absent: Periorbital tenderness Pupil Exam: NORMAL ACCOMODATION, PERRL. absent: Irregular, Unequal - ENT Exam ENT Exam: Mucous Membranes Moist, Normal Exam, Normal Oropharynx - Respiratory Exam Respiratory Exam: Clear to Ausculation Bilateral, NORMAL BREATHING PATTERN. absent: Chest Wall Tenderness, Prolonged Expiratory Phase, Respiratory Distress - Cardiovascular Exam Cardiovascular Exam: REGULAR RHYTHM, +S1, +S2 - GI/Abdominal Exam GI & Abdominal Exam: Soft, Normal Bowel Sounds. absent: Tenderness, Hyperactive Bowel Sounds - Extremities Exam Extremities Exam: Full ROM, Normal Inspection. absent: Joint Swelling, Tenderness - Back Exam Back Exam: NORMAL INSPECTION. absent: CVA tenderness (L), CVA tenderness (R), paraspinal tenderness - Neurological Exam Neurological Exam: Alert, Awake - Psychiatric Exam Psychiatric exam: Normal Affect, Normal Mood - Skin Skin Exam: Dry, Intact. absent: Pallor, Pallor Assessment and Plan - Assessment and Plan (Free Text) Assessment: 67 F with a PMHx of asthma, arthritis, and vitamin C deficiency who presents with RLE ulcer/cellulitis and draining right lower extremity ulcer, along with UTI. Pt completed course of Vancomycin and Azobactam for cellulitis and UTI. Pt received chest x-ray for cough and SOB, which is negative for any acute process. Incentive spirometer given. Pt is pending placement in [facility] at this time. Plan: 1. RLE cellulitis/ulcer with culture positive for Proteus Mirabilis and beta hemolytic group b strep -Resolved - continue tylenol prn fevers - MV/Vitamin C and Zinc - Physical therapy recommends [facility] -Podiatry consulted, rec's appreciated. - multipodus boot to be worn at all times as per podiatry -Patient pending placement. Sister expected to go to patient's job to try and obtain benefits. Message left with sister today per Social Work. Will f/u. 2. Hypokalemia - Will start daily potassium supplementation -K being repleted. Will f/u with serial cmp's. 3. Headache - continue fioricet PRN 4. Shortness of breath - Chest x-ray clear - Incentive spirometry - continue duoneb PRN - O2 Sat >90% on room air. Patient sating at 94 % on room air. CXR ordered. Will f/u with results. - cont O2 NC PRN 5. UTI - Completed Azactam course 6. Anemia likely 2/2 iron deficiency anemia - Hg stable -Continue Feosol -trend H/H 7. vitamin C deficiency - continue MV and Vitamin C ordered 8. GI/DVT ppx - Heparin - Protonix <Clemente Cabrera - Last Filed: 06/29/17 17:54> Objective - Vital Signs/Intake and Output Vital Signs (last 24 hours): Temp Pulse Resp BP Pulse Ox 97.9 F 89 22 160/82 H 94 L 06/29/17 07:30 06/29/17 10:48 06/29/17 07:30 06/29/17 10:48 06/29/17 07:30 Intake and Output: 06/29/17 06/29/17 06:59 18:59 Intake Total 900 360 Balance 900 360 - Medications Medications: Current Medications Acetaminophen (Tylenol 325mg Tab) 650 mg PO Q4 PRN PRN Reason: Fever >100.4 F Last Admin: 06/15/17 23:29 Dose: 650 mg Acetaminophen/Butalbital/Caffeine (Fioricet) 1 tab PO Q4H PRN PRN Reason: Headache Last Admin: 06/29/17 06:59 Dose: 1 tab Albuterol/Ipratropium (Duoneb 3 Mg/0.5 Mg (3 Ml) Ud) 3 ml IH [id number] PRN PRN Reason: Shortness of Breath Last Admin: 06/26/17 23:20 Dose: 3 ml Ascorbic Acid (Vitamin C 500 Mg Tab) 500 mg PO BID [facility] Last Admin: 06/29/17 10:59 Dose: Not Given Benzonatate (Tessalon Perles) 100 mg PO TID [facility] Docusate Sodium (Colace) 100 mg PO DAILY [facility] Last Admin: 06/29/17 10:43 Dose: 100 mg Ferrous Sulfate (Feosol) 324 mg PO TID [facility] Last Admin: 06/29/17 10:44 Dose: 324 mg Guaifenesin (Robitussin) 100 mg PO Q4H PRN PRN Reason: Cough Last Admin: 06/28/17 22:02 Dose: 100 mg Heparin Sodium (Porcine) (Heparin) 5,000 units SC Q12 [facility] PRN Reason: Protocol Last Admin: 06/29/17 10:46 Dose: 5,000 units Metoprolol Tartrate (Lopressor) 25 mg PO BID [facility] Last Admin: 06/29/17 10:48 Dose: 25 mg Multivitamins/Minerals (Therapeutic-M Tab) 1 tab PO 0800 [facility] Last Admin: 06/29/17 08:36 Dose: 1 tab Nystatin (Nystop Topical Powder) 1 gm TOP DAILY [facility] Last Admin: 06/29/17 10:51 Dose: 1 gm Pantoprazole Sodium (Protonix Ec Tab) 40 mg PO DAILY [facility] Last Admin: 06/29/17 10:51 Dose: 40 mg Polyethylene Glycol (Miralax) 17 gm PO BID [facility] Last Admin: 06/29/17 10:47 Dose: 17 gm Potassium Chloride (Potassium Chloride Oral Soln) 20 meq PO DAILY [facility] Last Admin: 06/29/17 10:45 Dose: 20 meq Potassium Chloride (Klor-Con 10) 10 meq PO BRK [facility] Zinc Sulfate (Zinc Sulfate 220 Mg Cap) 220 mg PO DAILY [facility] Last Admin: 06/29/17 10:43 Dose: 220 mg - Labs Labs: 06/29/17 06:15 06/29/17 06:15 PT 13.1 SECONDS (9.4-12.5) H 06/15/17 11:00 INR 1.19 (0.93-1.08) H 06/15/17 11:00 APTT 31.3 Seconds (25.1-36.5) 06/15/17 11:00 Attending/Attestation - Attestation I have personally seen and examined this patient.: Yes I have fully participated in the care of the patient.: Yes I have reviewed all pertinent clinical information, including history, physical exam and plan: Yes Notes (Text): I have seen and examined the patient with the resident. Agree with the above note with the following additions/ exceptions: Briefly this is 67 year old female with history of asthma, iron deficiency anemia, arthritis, obesity who was admitted for evaluation of bilateral lymphedema and RLE cellulitis with draining ulcer of right ankle. Cellulitis has resolved. Echo revealed normal LVEF however diastolic function was not fully assessed as it was technically difficult study. Duplex negative for DVT. Multipodus boots on. Wound dressing was done by podiatry. Wound cultures reveal proteus and beta hemolytic group B. She also has EColi UTI. Patient has completed vancomycin and azactam. PT recommended TED. Discussed with CM in detail. Awaiting placement. Multiple attempts were made by SW to contact sister and she left a message. Awaiting her call back. Continue feosol and miralax. Continue vitamin C, MVI and zinc to promote wound healing. Continue nystatin powder for skin folds in bilateral lower extremities and also underneath the breast. Continue PO potassium. Complains of cough. Encourage to use incentive spirometry. CXR is normal. Upon discharge patient will follow up in [facility] clinic. Dr Clemente Cabrera
--- NOTE | 2017-06-29 16:30 | RAD ---
HISTORY: low oxygen sat. COMPARISON: 06/26/2017 TECHNIQUE: Chest PA and lateral FINDINGS: LUNGS: No active pulmonary disease. PLEURA: No significant pleural effusion identified. No pneumothorax apparent. CARDIOVASCULAR: Mild cardiomegaly OSSEOUS STRUCTURES: No significant abnormalities. VISUALIZED UPPER ABDOMEN: Normal. OTHER FINDINGS: None. IMPRESSION: No active disease.
[2017-06-29] MEDS: Potassium Chloride 10 mEq ER Tab PO SCH (17:47)
[2017-06-29] MEDS ORDERED: Metoprolol 1 mg/ml Inj IVP STA (20:27)
[2017-06-30] MEDS: Potassium Chloride 10 mEq ER Tab PO SCH (08:24)
[2017-06-30] MEDS: Multivitamin With Minerals Tab PO SCH (08:24)
[2017-06-30 10:03] LABS: BASO # 0.07 K/mm3 (0.0-2.0); BASO % 0.9 % (0.0-3.0); EOS # 0.8 (0.0-0.7); EOS % 10.5 % (1.5-5.0); GRAN # 4.66 (1.4-6.5); GRAN % 60.3 % (50.0-68.0); HEMOGLOBIN 9.1 g/dL (12.0-16.0); LYMPH # 1.3 (1.2-3.4); LYMPH % 16.7 % (22.0-35.0); MEAN CELL VOLUME 79.6 fl (80.0-105.0); MEAN CORPUSCULAR HEMOGLOBIN 23.8 pg (25.0-35.0); MEAN CORPUSCULAR HGB CONC 29.8 g/dl (31.0-37.0); MEAN PLATELET VOLUME 8.4 fl (7.0-11.0); MONO # 0.9 (0.1-0.6); MONO % 11.6 % (1.0-6.0); RBC 3.83 10^6/uL (3.5-6.1); RED CELL DISTRIBUTION WIDTH 23.3 % (11.5-14.5); WHITE BLOOD COUNT 7.7 10^3/ul (4.5-11.0)
[2017-06-30 10:24] LABS: ALB/GLOB RATIO 0.8 (1.1-1.8); ALT/SGPT 22 U/L (7-56); AST/SGOT 35 U/L (14-36); BLOOD UREA NITROGEN 11 mg/dL (7-21); GFR AFRICAN-AMERICAN > 60; GFR NON-AFRICAN AMERICAN > 60
[2017-06-30] MEDS: Pantoprazole 40 mg EC Tab PO SCH (10:31)
[2017-06-30] MEDS: POLYETHYLENE GLYCOL 3350 17 GM/Dose PACKET PO SCH ×3 (10:32→17:56)
[2017-06-30] MEDS: Potassium Chloride 20 mEq/15 ml LIQ UD PO SCH (10:32)
[2017-06-30] MEDS: Nystatin 100,000 Units/gm Topical Pow(15 gm) TOP SCH (10:33)
--- NOTE | 2017-06-30 11:20 | CP.PCM.PN ---
<Elijah Bai - Last Filed: 06/30/17 11:16> Subjective - Date & Time of Evaluation Date of Evaluation: 06/30/17 Time of Evaluation: 11:16 - Subjective Subjective: 67 y/o female seen at bedside for right lower extremity cellulitis with swelling , lymphedema and healed superficial draining ulceration. Patient is AAOx3 and in NAD. Patient denied of any acute overnight events. Patient denied of any pain in her bilateral LE. Patient denies of any other complains at this time. Objective - Vital Signs/Intake and Output Vital Signs (last 24 hours): Temp Pulse Resp BP Pulse Ox 98.5 F 91 H 20 164/77 H 98 06/30/17 07:00 06/30/17 10:31 06/30/17 07:00 06/30/17 10:31 06/30/17 07:00 Intake and Output: 06/30/17 06/30/17 06:59 18:59 Intake Total 480 Balance 480 - Medications Medications: Current Medications Acetaminophen (Tylenol 325mg Tab) 650 mg PO Q4 PRN PRN Reason: Fever >100.4 F Last Admin: 06/15/17 23:29 Dose: 650 mg Acetaminophen/Butalbital/Caffeine (Fioricet) 1 tab PO Q4H PRN PRN Reason: Headache Last Admin: 06/29/17 17:42 Dose: 1 tab Albuterol/Ipratropium (Duoneb 3 Mg/0.5 Mg (3 Ml) Ud) 3 ml IH [id number] PRN PRN Reason: Shortness of Breath Last Admin: 06/26/17 23:20 Dose: 3 ml Ascorbic Acid (Vitamin C 500 Mg Tab) 500 mg PO BID [facility] Last Admin: 06/30/17 10:31 Dose: 500 mg Benzonatate (Tessalon Perles) 100 mg PO TID [facility] Last Admin: 06/30/17 10:31 Dose: 100 mg Docusate Sodium (Colace) 100 mg PO DAILY [facility] Last Admin: 06/30/17 10:31 Dose: 100 mg Ferrous Sulfate (Feosol) 324 mg PO TID [facility] Last Admin: 06/30/17 10:31 Dose: 324 mg Guaifenesin (Robitussin) 100 mg PO Q4H PRN PRN Reason: Cough Last Admin: 06/28/17 22:02 Dose: 100 mg Heparin Sodium (Porcine) (Heparin) 5,000 units SC Q12 [facility] PRN Reason: Protocol Last Admin: 06/30/17 10:32 Dose: 5,000 units Metoprolol Tartrate (Lopressor) 25 mg PO BID [facility] Last Admin: 06/30/17 10:31 Dose: 25 mg Multivitamins/Minerals (Therapeutic-M Tab) 1 tab PO 0800 [facility] Last Admin: 06/30/17 08:24 Dose: 1 tab Nystatin (Nystop Topical Powder) 1 gm TOP DAILY [facility] Last Admin: 06/30/17 10:33 Dose: 1 applic Pantoprazole Sodium (Protonix Ec Tab) 40 mg PO DAILY [facility] Last Admin: 06/30/17 10:31 Dose: 40 mg Polyethylene Glycol (Miralax) 17 gm PO BID [facility] Last Admin: 06/30/17 10:32 Dose: 17 gm Potassium Chloride (Potassium Chloride Oral Soln) 20 meq PO DAILY [facility] Last Admin: 06/30/17 10:32 Dose: 20 meq Potassium Chloride (Klor-Con 10) 10 meq PO BRK [facility] Last Admin: 06/30/17 08:24 Dose: 10 meq Zinc Sulfate (Zinc Sulfate 220 Mg Cap) 220 mg PO DAILY [facility] Last Admin: 06/30/17 10:31 Dose: 220 mg - Labs Labs: 06/30/17 09:30 06/30/17 09:30 PT 13.1 SECONDS (9.4-12.5) H 06/15/17 11:00 INR 1.19 (0.93-1.08) H 06/15/17 11:00 APTT 31.3 Seconds (25.1-36.5) 06/15/17 11:00 - Constitutional Appears: Well, Non-toxic, No Acute Distress - Extremities Exam Additional comments: Right lower extremity exam: Vasc: DP/PT pulses 2/4 B/L. +4 pitting edema to RLE distal to tibial tuberosity , +3 to LLE. Temperature gradient warm to warm on R, warm to cool on L. CFT < 3 sec to all digits Derm: Cellulitis to right leg appears resolved with no visible erythema. site of superficial ulceration which appears to have epidermal layer with islands of hyperkeratotic skin and no active drainage. Malodor resolved. No purulent discharge noted. Neuro: Protective sensation grossly intact Ortho: minimal tenderness on palpation of right lower extremity, increased on elevation of leg off the bed - Neurological Exam Neurological Exam: Alert, Awake, Oriented x3 - Psychiatric Exam Psychiatric exam: Normal Affect, Normal Mood Assessment and Plan - Assessment and Plan (Free Text) Assessment: 67 y/o female with bilateral lymphedema and resolved RLE cellulitis and swelling with healed superficial ulceration to right medial ankle Plan: Patient seen and evaluated at bedside Patient discussed in details with attending Dr. aCno Labs and vitals reviewed- afebrile, WBC @7.7 Cultures (Final): Proteus species and Beta hemolytic Strep Continue IV abx as per ID Extremity ultrasound negative for DVT to RLE Lotion applied to the right LE - continue daily lotion application to the extremities Multipodus boots to be worn at all times when in bed Patient is stable from podiatry standpoint Podiatry to sign-of on the patient, please re-consult as needed <Buffy Cano - Last Filed: 07/07/17 17:14> Objective - Vital Signs/Intake and Output Vital Signs (last 24 hours): Temp Pulse Resp BP Pulse Ox 98.1 F 68 19 138/73 98 07/07/17 07:30 07/07/17 16:07 07/07/17 07:30 07/07/17 13:41 07/07/17 16:07 Intake and Output: 07/07/17 07/07/17 06:59 18:59 Intake Total 900 Balance 900 - Medications Medications: Current Medications Acetaminophen (Tylenol 325mg Tab) 650 mg PO Q4 PRN PRN Reason: Fever >100.4 F Last Admin: 07/06/17 12:25 Dose: 650 mg Acetaminophen/Butalbital/Caffeine (Fioricet) 1 tab PO Q4H PRN PRN Reason: Headache Last Admin: 06/29/17 17:42 Dose: 1 tab Albuterol/Ipratropium (Duoneb 3 Mg/0.5 Mg (3 Ml) Ud) 3 ml IH [id number] PRN PRN Reason: Shortness of Breath Last Admin: 07/04/17 07:48 Dose: 3 ml Benzonatate (Tessalon Perles) 100 mg PO TID [facility] Last Admin: 07/07/17 13:41 Dose: 100 mg Docusate Sodium (Colace) 100 mg PO DAILY [facility] Last Admin: 07/07/17 09:47 Dose: Not Given Ferrous Sulfate (Feosol) 324 mg PO TID [facility] Last Admin: 07/07/17 13:41 Dose: 324 mg Guaifenesin (Robitussin) 100 mg PO Q4H PRN PRN Reason: Cough Last Admin: 07/04/17 06:14 Dose: 100 mg Guaifenesin/Dextromethorphan (Mucinex-Dm 600-30 Mg) 1 tab PO BID [facility] Last Admin: 07/07/17 09:44 Dose: 1 tab Heparin Sodium (Porcine) (Heparin) 5,000 units SC Q12 [facility] PRN Reason: Protocol Last Admin: 07/07/17 09:48 Dose: 5,000 units Home Med (Home Med) 1 unit PO DAILY [facility] Last Admin: 07/07/17 09:47 Dose: 1 unit Metoprolol Tartrate (Lopressor) 25 mg PO TID [facility] Last Admin: 07/07/17 13:41 Dose: 25 mg Multi-Ingredient Cream (Hydrocerin Cream) 1 ea TOP DAILY [facility] Last Admin: 07/07/17 14:11 Dose: 1 u Multivitamins/Minerals (Therapeutic-M Tab) 1 tab PO 0800 [facility] Last Admin: 07/07/17 10:11 Dose: 1 tab Nystatin (Nystop Topical Powder) 1 gm TOP DAILY [facility] Last Admin: 07/07/17 09:43 Dose: 1 applic Polyethylene Glycol (Miralax) 17 gm PO BID [facility] Last Admin: 07/07/17 09:47 Dose: Not Given Zinc Sulfate (Zinc Sulfate 220 Mg Cap) 220 mg PO DAILY [facility] Last Admin: 07/07/17 09:44 Dose: 220 mg - Labs Labs: 07/07/17 07:45 07/07/17 07:45 PT 13.1 SECONDS (9.4-12.5) H 06/15/17 11:00 INR 1.19 (0.93-1.08) H 06/15/17 11:00 APTT 31.3 Seconds (25.1-36.5) 06/15/17 11:00 Attending/Attestation - Attestation I have personally seen and examined this patient.: Yes I have fully participated in the care of the patient.: Yes I have reviewed all pertinent clinical information, including history, physical exam and plan: Yes
--- NOTE | 2017-06-30 13:24 | CP.PCM.PN ---
<MichaelKearan - Last Filed: 06/30/17 13:25> Subjective - Date & Time of Evaluation Date of Evaluation: 06/30/17 Time of Evaluation: 09:22 - Subjective Subjective: Patient was seen and examined at bedside. Per nursing no acute events occurred overnight. The patient reports having some trouble sleeping and feels a little congested. The patient denies any fevers, chills, nausea, vomiting, syncopal episodes, chest pain, dizziness, or any other complaints. Objective - Vital Signs/Intake and Output Vital Signs (last 24 hours): Temp Pulse Resp BP Pulse Ox 98.5 F 91 H 20 155/69 H 98 06/30/17 07:00 06/30/17 10:31 06/30/17 07:00 06/30/17 12:37 06/30/17 07:00 Intake and Output: 06/30/17 06/30/17 06:59 18:59 Intake Total 480 Balance 480 - Medications Medications: Current Medications Acetaminophen (Tylenol 325mg Tab) 650 mg PO Q4 PRN PRN Reason: Fever >100.4 F Last Admin: 06/15/17 23:29 Dose: 650 mg Acetaminophen/Butalbital/Caffeine (Fioricet) 1 tab PO Q4H PRN PRN Reason: Headache Last Admin: 06/29/17 17:42 Dose: 1 tab Albuterol/Ipratropium (Duoneb 3 Mg/0.5 Mg (3 Ml) Ud) 3 ml IH [id number] PRN PRN Reason: Shortness of Breath Last Admin: 06/26/17 23:20 Dose: 3 ml Ascorbic Acid (Vitamin C 500 Mg Tab) 500 mg PO BID [facility] Last Admin: 06/30/17 11:27 Dose: Not Given Benzonatate (Tessalon Perles) 100 mg PO TID [facility] Last Admin: 06/30/17 10:31 Dose: 100 mg Docusate Sodium (Colace) 100 mg PO DAILY [facility] Last Admin: 06/30/17 10:31 Dose: 100 mg Ferrous Sulfate (Feosol) 324 mg PO TID [facility] Last Admin: 06/30/17 10:31 Dose: 324 mg Guaifenesin (Robitussin) 100 mg PO Q4H PRN PRN Reason: Cough Last Admin: 06/28/17 22:02 Dose: 100 mg Heparin Sodium (Porcine) (Heparin) 5,000 units SC Q12 [facility] PRN Reason: Protocol Last Admin: 06/30/17 10:32 Dose: 5,000 units Metoprolol Tartrate (Lopressor) 25 mg PO BID [facility] Last Admin: 06/30/17 10:31 Dose: 25 mg Multivitamins/Minerals (Therapeutic-M Tab) 1 tab PO 0800 [facility] Last Admin: 06/30/17 08:24 Dose: 1 tab Nystatin (Nystop Topical Powder) 1 gm TOP DAILY [facility] Last Admin: 06/30/17 10:33 Dose: 1 applic Pantoprazole Sodium (Protonix Ec Tab) 40 mg PO DAILY [facility] Last Admin: 06/30/17 10:31 Dose: 40 mg Polyethylene Glycol (Miralax) 17 gm PO BID [facility] Last Admin: 06/30/17 10:32 Dose: 17 gm Potassium Chloride (Potassium Chloride Oral Soln) 20 meq PO DAILY [facility] Last Admin: 06/30/17 10:32 Dose: 20 meq Potassium Chloride (Klor-Con 10) 10 meq PO BRK [facility] Last Admin: 06/30/17 08:24 Dose: 10 meq Zinc Sulfate (Zinc Sulfate 220 Mg Cap) 220 mg PO DAILY [facility] Last Admin: 06/30/17 10:31 Dose: 220 mg - Labs Labs: 06/30/17 09:30 06/30/17 09:30 PT 13.1 SECONDS (9.4-12.5) H 06/15/17 11:00 INR 1.19 (0.93-1.08) H 06/15/17 11:00 APTT 31.3 Seconds (25.1-36.5) 06/15/17 11:00 - Head Exam Head Exam: ATRAUMATIC, NORMAL INSPECTION, NORMOCEPHALIC - Eye Exam Eye Exam: EOMI, Normal appearance, PERRL Pupil Exam: NORMAL ACCOMODATION, PERRL - ENT Exam ENT Exam: Mucous Membranes Moist, Normal Oropharynx - Neck Exam Neck Exam: Full ROM, Normal Inspection - Respiratory Exam Respiratory Exam: Clear to Ausculation Bilateral, NORMAL BREATHING PATTERN. absent: Chest Wall Tenderness, Prolonged Expiratory Phase, Rales, Stridor - Cardiovascular Exam Cardiovascular Exam: REGULAR RHYTHM, +S1, +S2. absent: Gallop, Rubs - GI/Abdominal Exam GI & Abdominal Exam: Soft, Normal Bowel Sounds - Extremities Exam Extremities Exam: Tenderness - Back Exam Back Exam: NORMAL INSPECTION. absent: CVA tenderness (L), CVA tenderness (R), paraspinal tenderness - Neurological Exam Neurological Exam: Alert, Awake, CN II-XII Intact, Oriented x3 - Psychiatric Exam Psychiatric exam: Normal Mood - Skin Skin Exam: Dry, Intact Assessment and Plan - Assessment and Plan (Free Text) Assessment: 67 F with a PMHx of asthma, arthritis, and vitamin C deficiency who presents with RLE ulcer/cellulitis and draining right lower extremity ulcer, along with UTI. Pt completed course of Vancomycin and Azobactam for cellulitis and UTI. Pt received chest x-ray for cough and SOB, which is negative for any acute process. Incentive spirometer given. Pt is pending placement in [facility] at this time. Plan: 1. RLE cellulitis/ulcer with culture positive for Proteus Mirabilis and beta hemolytic group b strep -Resolved - continue tylenol prn fevers - MV/Vitamin C and Zinc - Physical therapy recommends [facility] -Podiatry consulted, rec's appreciated. - multipodus boot to be worn at all times as per podiatry -Patient pending placement. Sister expected to go to patient's job to try and obtain benefits. Message left with sister today per Social Work. Will continue to try and contact the sister. Will f/u. 2. Hypokalemia - Will start daily potassium supplementation -K being repleted. Will f/u with serial cmp's. 3. Headache - continue fioricet PRN 4. Shortness of breath - Chest x-ray clear - Incentive spirometry - continue duoneb PRN - O2 Sat >90% on room air. Patient sating at 94 % on room air. -CXR ordered negative. - cont O2 NC PRN 5. UTI - Completed Azactam course 6. Anemia likely 2/2 iron deficiency anemia - Hg stable -Continue Feosol -trend H/H 7. vitamin C deficiency - continue MV and Vitamin C ordered 8. GI/DVT ppx - Heparin - Protonix <Clemente Cabrera - Last Filed: 06/30/17 16:29> Objective - Vital Signs/Intake and Output Vital Signs (last 24 hours): Temp Pulse Resp BP Pulse Ox 98.5 F 91 H 20 155/69 H 98 06/30/17 07:00 06/30/17 10:31 06/30/17 07:00 06/30/17 12:37 06/30/17 07:00 Intake and Output: 06/30/17 06/30/17 06:59 18:59 Intake Total 480 Balance 480 - Medications Medications: Current Medications Acetaminophen (Tylenol 325mg Tab) 650 mg PO Q4 PRN PRN Reason: Fever >100.4 F Last Admin: 06/30/17 14:59 Dose: 650 mg Acetaminophen/Butalbital/Caffeine (Fioricet) 1 tab PO Q4H PRN PRN Reason: Headache Last Admin: 06/29/17 17:42 Dose: 1 tab Albuterol/Ipratropium (Duoneb 3 Mg/0.5 Mg (3 Ml) Ud) 3 ml IH [id number] PRN PRN Reason: Shortness of Breath Last Admin: 06/26/17 23:20 Dose: 3 ml Ascorbic Acid (Vitamin C 500 Mg Tab) 500 mg PO BID [facility] Last Admin: 06/30/17 11:27 Dose: Not Given Benzonatate (Tessalon Perles) 100 mg PO TID [facility] Last Admin: 06/30/17 14:56 Dose: 100 mg Docusate Sodium (Colace) 100 mg PO DAILY [facility] Last Admin: 06/30/17 10:31 Dose: 100 mg Ferrous Sulfate (Feosol) 324 mg PO TID [facility] Last Admin: 06/30/17 14:59 Dose: 324 mg Guaifenesin (Robitussin) 100 mg PO Q4H PRN PRN Reason: Cough Last Admin: 06/28/17 22:02 Dose: 100 mg Heparin Sodium (Porcine) (Heparin) 5,000 units SC Q12 [facility] PRN Reason: Protocol Last Admin: 06/30/17 10:32 Dose: 5,000 units Metoprolol Tartrate (Lopressor) 25 mg PO BID [facility] Last Admin: 06/30/17 10:31 Dose: 25 mg Multivitamins/Minerals (Therapeutic-M Tab) 1 tab PO 0800 [facility] Last Admin: 06/30/17 08:24 Dose: 1 tab Nystatin (Nystop Topical Powder) 1 gm TOP DAILY [facility] Last Admin: 06/30/17 10:33 Dose: 1 applic Pantoprazole Sodium (Protonix Ec Tab) 40 mg PO DAILY [facility] Last Admin: 06/30/17 10:31 Dose: 40 mg Polyethylene Glycol (Miralax) 17 gm PO BID [facility] Last Admin: 06/30/17 10:32 Dose: 17 gm Potassium Chloride (Potassium Chloride Oral Soln) 20 meq PO DAILY [facility] Last Admin: 06/30/17 10:32 Dose: 20 meq Potassium Chloride (Klor-Con 10) 10 meq PO BRK [facility] Last Admin: 06/30/17 08:24 Dose: 10 meq Zinc Sulfate (Zinc Sulfate 220 Mg Cap) 220 mg PO DAILY [facility] Last Admin: 06/30/17 10:31 Dose: 220 mg - Labs Labs: 06/30/17 09:30 06/30/17 09:30 PT 13.1 SECONDS (9.4-12.5) H 06/15/17 11:00 INR 1.19 (0.93-1.08) H 06/15/17 11:00 APTT 31.3 Seconds (25.1-36.5) 06/15/17 11:00 Attending/Attestation - Attestation I have personally seen and examined this patient.: Yes I have fully participated in the care of the patient.: Yes I have reviewed all pertinent clinical information, including history, physical exam and plan: Yes Notes (Text): I have seen and examined the patient with the resident. Agree with the above note with the following additions/ exceptions: Briefly this is 67 year old female with history of asthma, iron deficiency anemia, arthritis, obesity who was admitted for evaluation of bilateral lymphedema and RLE cellulitis with draining ulcer of right ankle. Cellulitis has resolved. Echo revealed normal LVEF however diastolic function was not fully assessed as it was technically difficult study. Duplex negative for DVT. Multipodus boots on. Wound dressing was done by podiatry. Wound cultures reveal proteus and beta hemolytic group B. She also has EColi UTI. Patient has completed vancomycin and azactam. PT recommended TED. Discussed with CM in detail. Awaiting placement. Multiple attempts were made by SW to contact sister . Sister will be in the hospital tomorrow. Continue feosol and miralax. Continue vitamin C, MVI and zinc to promote wound healing. Continue nystatin powder for skin folds in bilateral lower extremities and also underneath the breast. Continue PO potassium. Complains of cough. Encourage to use incentive spirometry. CXR is normal. Upon discharge patient will follow up in [facility] clinic. Dr Clemente Cabrera
[2017-06-30 13:49] LABS: MAGNESIUM 1.7 mg/dL (1.7-2.2)
--- NOTE | 2017-06-30 16:30 | CP.PCM.PN ---
Subjective - Date & Time of Evaluation Date of Evaluation: 06/30/17 Time of Evaluation: 15:00 - Subjective Subjective: Infectious Disease Follow Up: June 29, 2017 67 yo female presenting with 3 weeks of RLE ulceration, swelling and leaking from the wound as well as multiple falls in the past 3 weeks. The patient has an extensive medical history of asthma, arthritis, vitamin C deficiency, and possible thyroid disease. Had headaches and episodes of SOB overnight. draining RLE ulceration... cellulitis improved/resolved. Multiple chronic medical issues. Still with dry cough. Otherwise stable. Objective - Vital Signs/Intake and Output Vital Signs (last 24 hours): Temp Pulse Resp BP Pulse Ox 98.5 F 91 H 20 155/69 H 98 06/30/17 07:00 06/30/17 10:31 06/30/17 07:00 06/30/17 12:37 06/30/17 07:00 Intake and Output: 06/30/17 06/30/17 06:59 18:59 Intake Total 480 Balance 480 - Medications Medications: Current Medications Acetaminophen (Tylenol 325mg Tab) 650 mg PO Q4 PRN PRN Reason: Fever >100.4 F Last Admin: 06/30/17 14:59 Dose: 650 mg Acetaminophen/Butalbital/Caffeine (Fioricet) 1 tab PO Q4H PRN PRN Reason: Headache Last Admin: 06/29/17 17:42 Dose: 1 tab Albuterol/Ipratropium (Duoneb 3 Mg/0.5 Mg (3 Ml) Ud) 3 ml IH [id number] PRN PRN Reason: Shortness of Breath Last Admin: 06/26/17 23:20 Dose: 3 ml Ascorbic Acid (Vitamin C 500 Mg Tab) 500 mg PO BID [facility] Last Admin: 06/30/17 11:27 Dose: Not Given Benzonatate (Tessalon Perles) 100 mg PO TID [facility] Last Admin: 06/30/17 14:56 Dose: 100 mg Docusate Sodium (Colace) 100 mg PO DAILY [facility] Last Admin: 06/30/17 10:31 Dose: 100 mg Ferrous Sulfate (Feosol) 324 mg PO TID [facility] Last Admin: 06/30/17 14:59 Dose: 324 mg Guaifenesin (Robitussin) 100 mg PO Q4H PRN PRN Reason: Cough Last Admin: 06/28/17 22:02 Dose: 100 mg Heparin Sodium (Porcine) (Heparin) 5,000 units SC Q12 [facility] PRN Reason: Protocol Last Admin: 06/30/17 10:32 Dose: 5,000 units Metoprolol Tartrate (Lopressor) 25 mg PO BID [facility] Last Admin: 06/30/17 10:31 Dose: 25 mg Multivitamins/Minerals (Therapeutic-M Tab) 1 tab PO 0800 [facility] Last Admin: 06/30/17 08:24 Dose: 1 tab Nystatin (Nystop Topical Powder) 1 gm TOP DAILY [facility] Last Admin: 06/30/17 10:33 Dose: 1 applic Pantoprazole Sodium (Protonix Ec Tab) 40 mg PO DAILY [facility] Last Admin: 06/30/17 10:31 Dose: 40 mg Polyethylene Glycol (Miralax) 17 gm PO BID [facility] Last Admin: 06/30/17 10:32 Dose: 17 gm Potassium Chloride (Potassium Chloride Oral Soln) 20 meq PO DAILY [facility] Last Admin: 06/30/17 10:32 Dose: 20 meq Potassium Chloride (Klor-Con 10) 10 meq PO BRK [facility] Last Admin: 06/30/17 08:24 Dose: 10 meq Zinc Sulfate (Zinc Sulfate 220 Mg Cap) 220 mg PO DAILY [facility] Last Admin: 06/30/17 10:31 Dose: 220 mg - Labs Labs: 06/30/17 09:30 06/30/17 09:30 PT 13.1 SECONDS (9.4-12.5) H 06/15/17 11:00 INR 1.19 (0.93-1.08) H 06/15/17 11:00 APTT 31.3 Seconds (25.1-36.5) 06/15/17 11:00 - Constitutional Appears: Non-toxic, No Acute Distress, Chronically Ill - Head Exam Head Exam: ATRAUMATIC, NORMOCEPHALIC Additional comments: marked hair loss - Eye Exam Eye Exam: EOMI, PERRL Pupil Exam: NORMAL ACCOMODATION, PERRL - ENT Exam ENT Exam: Mucous Membranes Moist, Normal External Ear Exam, TM's Normal Bilaterally - Neck Exam Neck Exam: Full ROM, Normal Inspection - Respiratory Exam Respiratory Exam: Clear to Ausculation Bilateral, NORMAL BREATHING PATTERN. absent: Rales, Rhonchi, Wheezes - Cardiovascular Exam Cardiovascular Exam: REGULAR RHYTHM, RRR, +S1, +S2 - GI/Abdominal Exam GI & Abdominal Exam: Soft, Normal Bowel Sounds. absent: Distended, Tenderness - Extremities Exam Extremities Exam: Joint Swelling, Pedal Edema Additional comments: RLE less swollen R ankle with ulcer - improving b/l chronic venous changes tinea and chronic venous stasis changes. Signs of arthritis in joints of the hands. - Neurological Exam Neurological Exam: Alert, Awake, CN II-XII Intact, Oriented x3 - Psychiatric Exam Psychiatric exam: Normal Affect, Normal Mood - Skin Skin Exam: Normal Color Additional comments: Right lower leg superficial ulceration appears to be mostly healed. Cellultitis of right lower leg resolved. Assessment and Plan - Assessment and Plan (Free Text) Assessment: 67 yo female with multiple medical issues with PCN allergy diagnosed as a teenager verified by an Emotionally Impaired Teacher. The patient with leukocytosis. Consider use of Aztreonam for antibiotic coverage for now. Await cultures especially urine cultures. Diabetes and HTN history? Local wound care. Elevated ESR and C-reactive protein. Continue Vancomycin and Aztreonam for antibiotic coverage. UTI with E. coli sensitive to Azactam. Maintain vancomycin for cellulitis IV. For UTI for 5-7 days treatment. Completed now. Supportive care. Cellulitis appears improved. No additional issues. Social issues currently. Thank you for allowing me to participate in the care of the patient, we will follow with you.
[2017-07-01 08:27] LABS: BASO # 0.07 K/mm3 (0.0-2.0); BASO % 0.8 % (0.0-3.0); EOS # 0.6 (0.0-0.7); EOS % 6.7 % (1.5-5.0); GRAN # 5.23 (1.4-6.5); GRAN % 60.2 % (50.0-68.0); HEMOGLOBIN 10.1 g/dL (12.0-16.0); LYMPH # 1.6 (1.2-3.4); LYMPH % 18.6 % (22.0-35.0); MEAN CELL VOLUME 78.6 fl (80.0-105.0); MEAN CORPUSCULAR HEMOGLOBIN 24.3 pg (25.0-35.0); MEAN PLATELET VOLUME 8.3 fl (7.0-11.0); MONO # 1.2 (0.1-0.6); MONO % 13.7 % (1.0-6.0); RBC 4.15 10^6/uL (3.5-6.1); WHITE BLOOD COUNT 8.7 10^3/ul (4.5-11.0)
[2017-07-01 08:35] LABS: ALB/GLOB RATIO 0.8 (1.1-1.8); ALBUMIN 3.4 g/dL (3.0-4.8); ALT/SGPT 18 U/L (7-56); AST/SGOT 30 U/L (14-36); BLOOD UREA NITROGEN 9 mg/dL (7-21); CALCIUM 8.5 mg/dL (8.4-10.5); GFR AFRICAN-AMERICAN > 60; GFR NON-AFRICAN AMERICAN > 60
[2017-07-01] MEDS: Multivitamin With Minerals Tab PO SCH (08:56)
[2017-07-01] MEDS: Potassium Chloride 10 mEq ER Tab PO SCH (08:56)
[2017-07-01] MEDS: Potassium Chloride 20 mEq/15 ml LIQ UD PO SCH (10:08)
[2017-07-01] MEDS: POLYETHYLENE GLYCOL 3350 17 GM/Dose PACKET PO SCH ×2 (10:09→17:34)
[2017-07-01] MEDS: Pantoprazole 40 mg EC Tab PO SCH (10:09)
[2017-07-01] MEDS: Nystatin 100,000 Units/gm Topical Pow(15 gm) TOP SCH (10:10)
[2017-07-01] MEDS ORDERED: VITAMIN C PO SCH (11:45)
--- NOTE | 2017-07-01 11:51 | CP.PCM.PN ---
<MichaelKearan - Last Filed: 07/01/17 11:52> Subjective - Date & Time of Evaluation Date of Evaluation: 07/01/17 Time of Evaluation: 08:49 - Subjective Subjective: Patient was seen and examined at bedside. Per nursing no acute events occurred. The patient reports a non productive cough today. She denies any chest pain, nausea, vomiting, fevers, chills, lightheadedness, dizziness, changes in vision , syncopal episodes, abdominal pain, or any other complaints. Objective - Vital Signs/Intake and Output Vital Signs (last 24 hours): Temp Pulse Resp BP Pulse Ox 98.7 F 84 18 169/88 H 93 L 07/01/17 08:45 07/01/17 10:09 07/01/17 08:45 07/01/17 10:09 07/01/17 00:00 Intake and Output: 07/01/17 07/01/17 06:59 18:59 Intake Total 960 Balance 960 - Medications Medications: Current Medications Acetaminophen (Tylenol 325mg Tab) 650 mg PO Q4 PRN PRN Reason: Fever >100.4 F Last Admin: 06/30/17 14:59 Dose: 650 mg Acetaminophen/Butalbital/Caffeine (Fioricet) 1 tab PO Q4H PRN PRN Reason: Headache Last Admin: 06/29/17 17:42 Dose: 1 tab Albuterol/Ipratropium (Duoneb 3 Mg/0.5 Mg (3 Ml) Ud) 3 ml IH [id number] PRN PRN Reason: Shortness of Breath Last Admin: 06/26/17 23:20 Dose: 3 ml Ascorbic Acid (Vitamin C 500 Mg Tab) 500 mg PO BID [facility] Last Admin: 07/01/17 10:09 Dose: 500 mg Benzonatate (Tessalon Perles) 100 mg PO TID [facility] Last Admin: 07/01/17 10:09 Dose: 100 mg Docusate Sodium (Colace) 100 mg PO DAILY [facility] Last Admin: 07/01/17 10:09 Dose: 100 mg Ferrous Sulfate (Feosol) 324 mg PO TID [facility] Last Admin: 07/01/17 10:09 Dose: 324 mg Guaifenesin (Robitussin) 100 mg PO Q4H PRN PRN Reason: Cough Last Admin: 06/28/17 22:02 Dose: 100 mg Heparin Sodium (Porcine) (Heparin) 5,000 units SC Q12 [facility] PRN Reason: Protocol Last Admin: 07/01/17 10:10 Dose: 5,000 units Home Med (Home Med) 1 unit PO DAILY [facility] Metoprolol Tartrate (Lopressor) 25 mg PO BID [facility] Last Admin: 07/01/17 10:09 Dose: 25 mg Multivitamins/Minerals (Therapeutic-M Tab) 1 tab PO 0800 [facility] Last Admin: 07/01/17 08:56 Dose: 1 tab Nystatin (Nystop Topical Powder) 1 gm TOP DAILY [facility] Last Admin: 07/01/17 10:10 Dose: 1 applic Pantoprazole Sodium (Protonix Ec Tab) 40 mg PO DAILY [facility] Last Admin: 07/01/17 10:09 Dose: 40 mg Polyethylene Glycol (Miralax) 17 gm PO BID [facility] Last Admin: 07/01/17 10:09 Dose: 17 gm Potassium Chloride (Potassium Chloride Oral Soln) 20 meq PO DAILY [facility] Last Admin: 07/01/17 10:08 Dose: 20 meq Potassium Chloride (Klor-Con 10) 10 meq PO BRK [facility] Last Admin: 07/01/17 08:56 Dose: 10 meq Zinc Sulfate (Zinc Sulfate 220 Mg Cap) 220 mg PO DAILY [facility] Last Admin: 07/01/17 10:09 Dose: 220 mg - Labs Labs: 07/01/17 08:00 07/01/17 08:00 PT 13.1 SECONDS (9.4-12.5) H 06/15/17 11:00 INR 1.19 (0.93-1.08) H 06/15/17 11:00 APTT 31.3 Seconds (25.1-36.5) 06/15/17 11:00 - Head Exam Head Exam: ATRAUMATIC, NORMAL INSPECTION, NORMOCEPHALIC - Eye Exam Eye Exam: EOMI, Normal appearance, PERRL. absent: Periorbital tenderness Pupil Exam: NORMAL ACCOMODATION, PERRL - ENT Exam ENT Exam: Mucous Membranes Moist, Normal Exam - Neck Exam Neck Exam: Normal Inspection. absent: Lymphadenopathy - Respiratory Exam Respiratory Exam: Clear to Ausculation Bilateral, NORMAL BREATHING PATTERN. absent: Rales, Rhonchi - Cardiovascular Exam Cardiovascular Exam: REGULAR RHYTHM, +S1, +S2 - GI/Abdominal Exam GI & Abdominal Exam: Soft, Normal Bowel Sounds. absent: Firm, Guarding, Rigid, Tenderness, Hyperactive Bowel Sounds - Extremities Exam Additional comments: mulitopdious boots placed bilaterally. - Back Exam Back Exam: NORMAL INSPECTION. absent: CVA tenderness (L), CVA tenderness (R), paraspinal tenderness - Neurological Exam Neurological Exam: Alert, Awake, Oriented x3 - Psychiatric Exam Psychiatric exam: Normal Affect, Normal Mood - Skin Skin Exam: Dry, Intact Assessment and Plan - Assessment and Plan (Free Text) Plan: 1. RLE cellulitis/ulcer with culture positive for Proteus Mirabilis and beta hemolytic group b strep -Resolved - continue tylenol prn fevers - continue MV/Vitamin C and Zinc - Physical therapy recommends TED -Podiatry consulted, rec's appreciated. - multipodus boot to be worn at all times as per podiatry -Patient pending placement. Sister had a meeting with Social work today. On Wednesday or Wednesday of next week she is expected to go and get the remainder of the paperwork to obtain the Medicare number. We will continue to f/u with her regarding this issue. 2. Hypokalemia - Resolved. 3. Headache - continue fioricet PRN 4. Shortness of breath - Chest x-ray clear - Incentive spirometry - continue duoneb PRN - O2 Sat >90% on room air. Patient sating at 94 % on room air. -CXR ordered negative. - cont O2 NC PRN 5. Non productive cough -Repeat CXR was negative to active pulmonary disease -David added. Will continue to monitor closely. 6. UTI - Completed Azactam course 7. Anemia likely 2/2 iron deficiency anemia - Hg stable -Continue Feosol -trend H/H 8. vitamin C deficiency - continue MV and Vitamin C ordered 9. GI/DVT ppx - Heparin - Protonix <Ji Murillo - Last Filed: 07/02/17 18:13> Objective - Vital Signs/Intake and Output Vital Signs (last 24 hours): Temp Pulse Resp BP Pulse Ox 99.5 F 81 20 137/69 95 07/02/17 16:00 07/02/17 16:00 07/02/17 16:00 07/02/17 17:01 07/02/17 16:00 Intake and Output: 07/02/17 07/02/17 06:59 18:59 Intake Total 660 480 Output Total 1 Balance 659 480 - Medications Medications: Current Medications Acetaminophen (Tylenol 325mg Tab) 650 mg PO Q4 PRN PRN Reason: Fever >100.4 F Last Admin: 06/30/17 14:59 Dose: 650 mg Acetaminophen/Butalbital/Caffeine (Fioricet) 1 tab PO Q4H PRN PRN Reason: Headache Last Admin: 06/29/17 17:42 Dose: 1 tab Albuterol/Ipratropium (Duoneb 3 Mg/0.5 Mg (3 Ml) Ud) 3 ml IH [id number] PRN PRN Reason: Shortness of Breath Last Admin: 07/01/17 17:38 Dose: 3 ml Ascorbic Acid (Vitamin C 500 Mg Tab) 500 mg PO BID [facility] Last Admin: 07/02/17 17:01 Dose: 500 mg Benzonatate (Tessalon Perles) 100 mg PO TID [facility] Last Admin: 07/02/17 17:01 Dose: 100 mg Docusate Sodium (Colace) 100 mg PO DAILY [facility] Last Admin: 07/02/17 10:23 Dose: 100 mg Ferrous Sulfate (Feosol) 324 mg PO TID [facility] Last Admin: 07/02/17 17:01 Dose: 324 mg Guaifenesin (Robitussin) 100 mg PO Q4H PRN PRN Reason: Cough Last Admin: 07/02/17 02:50 Dose: 100 mg Guaifenesin/Dextromethorphan (Mucinex-Dm 600-30 Mg) 1 tab PO BID [facility] Last Admin: 07/02/17 17:01 Dose: 1 tab Heparin Sodium (Porcine) (Heparin) 5,000 units SC Q12 [facility] PRN Reason: Protocol Last Admin: 07/02/17 09:36 Dose: 5,000 units Home Med (Home Med) 1 unit PO DAILY [facility] Last Admin: 07/02/17 10:32 Dose: Not Given Metoprolol Tartrate (Lopressor) 25 mg PO BID [facility] Last Admin: 07/02/17 17:01 Dose: 25 mg Multivitamins/Minerals (Therapeutic-M Tab) 1 tab PO 0800 [facility] Last Admin: 07/02/17 08:23 Dose: 1 tab Nystatin (Nystop Topical Powder) 1 gm TOP DAILY [facility] Last Admin: 07/02/17 10:32 Dose: 1 applic Pantoprazole Sodium (Protonix Ec Tab) 40 mg PO DAILY [facility] Last Admin: 07/02/17 09:36 Dose: 40 mg Polyethylene Glycol (Miralax) 17 gm PO BID [facility] Last Admin: 07/02/17 17:03 Dose: Not Given Zinc Sulfate (Zinc Sulfate 220 Mg Cap) 220 mg PO DAILY [facility] Last Admin: 07/02/17 09:36 Dose: 220 mg - Labs Labs: 07/01/17 08:00 07/01/17 08:00 PT 13.1 SECONDS (9.4-12.5) H 06/15/17 11:00 INR 1.19 (0.93-1.08) H 06/15/17 11:00 APTT 31.3 Seconds (25.1-36.5) 06/15/17 11:00 Attending/Attestation - Attestation I have personally seen and examined this patient.: Yes I have fully participated in the care of the patient.: Yes I have reviewed all pertinent clinical information, including history, physical exam and plan: Yes Notes (Text): RLE cellulitis/ulcer with culture positive for Proteus Mirabilis and beta hemolytic group b strep -Resolved Non productive cough -likely bronchitis no fever
[2017-07-01] MEDS: Albuterol-Ipratrop 3 mg / 0.5 (3 ml) UD IH PRN (17:38)
--- NOTE | 2017-07-01 17:42 | CP.PCM.PN ---
Subjective - Date & Time of Evaluation Date of Evaluation: 07/01/17 Time of Evaluation: 16:30 - Subjective Subjective: Infectious Disease Follow Up: July 01, 2017 67 yo female presenting with 3 weeks of RLE ulceration, swelling and leaking from the wound as well as multiple falls in the past 3 weeks. The patient has an extensive medical history of asthma, arthritis, vitamin C deficiency, and possible thyroid disease. Had headaches and episodes of SOB overnight. draining RLE ulceration... cellulitis improved/resolved. Multiple chronic medical issues. Still with dry cough. Otherwise stable. Mild erythema and excoriation of the folds in the abdomen and under the breasts. Objective - Vital Signs/Intake and Output Vital Signs (last 24 hours): Temp Pulse Resp BP Pulse Ox 99.5 F 84 20 169/88 H 97 07/01/17 16:00 07/01/17 16:00 07/01/17 16:00 07/01/17 10:09 07/01/17 16:00 Intake and Output: 07/01/17 07/01/17 06:59 18:59 Intake Total 960 480 Balance 960 480 - Medications Medications: Current Medications Acetaminophen (Tylenol 325mg Tab) 650 mg PO Q4 PRN PRN Reason: Fever >100.4 F Last Admin: 06/30/17 14:59 Dose: 650 mg Acetaminophen/Butalbital/Caffeine (Fioricet) 1 tab PO Q4H PRN PRN Reason: Headache Last Admin: 06/29/17 17:42 Dose: 1 tab Albuterol/Ipratropium (Duoneb 3 Mg/0.5 Mg (3 Ml) Ud) 3 ml IH [id number] PRN PRN Reason: Shortness of Breath Last Admin: 06/26/17 23:20 Dose: 3 ml Ascorbic Acid (Vitamin C 500 Mg Tab) 500 mg PO BID [facility] Last Admin: 07/01/17 10:09 Dose: 500 mg Benzonatate (Tessalon Perles) 100 mg PO TID [facility] Last Admin: 07/01/17 14:48 Dose: 100 mg Docusate Sodium (Colace) 100 mg PO DAILY [facility] Last Admin: 07/01/17 10:09 Dose: 100 mg Ferrous Sulfate (Feosol) 324 mg PO TID [facility] Last Admin: 07/01/17 14:48 Dose: 324 mg Guaifenesin (Robitussin) 100 mg PO Q4H PRN PRN Reason: Cough Last Admin: 06/28/17 22:02 Dose: 100 mg Heparin Sodium (Porcine) (Heparin) 5,000 units SC Q12 [facility] PRN Reason: Protocol Last Admin: 07/01/17 10:10 Dose: 5,000 units Home Med (Home Med) 1 unit PO DAILY [facility] Metoprolol Tartrate (Lopressor) 25 mg PO BID [facility] Last Admin: 07/01/17 10:09 Dose: 25 mg Multivitamins/Minerals (Therapeutic-M Tab) 1 tab PO 0800 [facility] Last Admin: 07/01/17 08:56 Dose: 1 tab Nystatin (Nystop Topical Powder) 1 gm TOP DAILY [facility] Last Admin: 07/01/17 10:10 Dose: 1 applic Pantoprazole Sodium (Protonix Ec Tab) 40 mg PO DAILY [facility] Last Admin: 07/01/17 10:09 Dose: 40 mg Polyethylene Glycol (Miralax) 17 gm PO BID [facility] Last Admin: 07/01/17 10:09 Dose: 17 gm Potassium Chloride (Potassium Chloride Oral Soln) 20 meq PO DAILY [facility] Last Admin: 07/01/17 10:08 Dose: 20 meq Potassium Chloride (Klor-Con 10) 10 meq PO BRK [facility] Last Admin: 07/01/17 08:56 Dose: 10 meq Zinc Sulfate (Zinc Sulfate 220 Mg Cap) 220 mg PO DAILY [facility] Last Admin: 07/01/17 10:09 Dose: 220 mg - Labs Labs: 07/01/17 08:00 07/01/17 08:00 PT 13.1 SECONDS (9.4-12.5) H 06/15/17 11:00 INR 1.19 (0.93-1.08) H 06/15/17 11:00 APTT 31.3 Seconds (25.1-36.5) 06/15/17 11:00 - Constitutional Appears: Non-toxic, No Acute Distress, Chronically Ill - Head Exam Head Exam: ATRAUMATIC, NORMOCEPHALIC - Eye Exam Eye Exam: EOMI, PERRL Pupil Exam: NORMAL ACCOMODATION, PERRL - ENT Exam ENT Exam: Mucous Membranes Moist, Normal External Ear Exam, TM's Normal Bilaterally - Neck Exam Neck Exam: Full ROM, Normal Inspection - Respiratory Exam Respiratory Exam: Clear to Ausculation Bilateral, NORMAL BREATHING PATTERN. absent: Rales, Rhonchi, Wheezes - Cardiovascular Exam Cardiovascular Exam: REGULAR RHYTHM, RRR, +S1, +S2 - GI/Abdominal Exam GI & Abdominal Exam: Soft, Normal Bowel Sounds. absent: Distended, Tenderness - Extremities Exam Extremities Exam: Joint Swelling, Pedal Edema Additional comments: RLE swelling R ankle with ulcer - improving b/l chronic venous changes tinea and chronic venous stasis changes. Signs of arthritis in joints of the hands. - Neurological Exam Neurological Exam: Alert, Awake, CN II-XII Intact, Oriented x3 - Psychiatric Exam Psychiatric exam: Normal Affect, Normal Mood - Skin Skin Exam: Normal Color Additional comments: Right lower leg superficial ulceration appears to be mostly healed. Cellultitis of right lower leg resolved. Assessment and Plan - Assessment and Plan (Free Text) Assessment: 67 yo female with multiple medical issues with PCN allergy diagnosed as a teenager verified by an Website Designer. The patient with leukocytosis. Consider use of Aztreonam for antibiotic coverage for now. Await cultures especially urine cultures. Diabetes and HTN history? Local wound care. Elevated ESR and C-reactive protein. Completed Vancomycin and Aztreonam for antibiotic coverage. UTI with E. coli sensitive to Azactam. Was on vancomycin for cellulitis IV. For UTI for 5-7 days treatment... completed. Supportive care. Cellulitis appears improved. No new issues. Social issues currently. Thank you for allowing me to participate in the care of the patient, we will follow with you.
[2017-07-01] MEDS: guaiFENesin 100 mg/5 ml Syrup UD PO PRN (22:43)
[2017-07-02] MEDS: guaiFENesin 100 mg/5 ml Syrup UD PO PRN ×2 (02:50→21:46)
[2017-07-02] MEDS: Multivitamin With Minerals Tab PO SCH (08:23)
[2017-07-02] MEDS: Potassium Chloride 10 mEq ER Tab PO SCH (08:23)
[2017-07-02] MEDS: POLYETHYLENE GLYCOL 3350 17 GM/Dose PACKET PO SCH ×2 (09:36→17:03)
[2017-07-02] MEDS: Potassium Chloride 20 mEq/15 ml LIQ UD PO SCH (09:36)
[2017-07-02] MEDS: Pantoprazole 40 mg EC Tab PO SCH (09:36)
[2017-07-02] MEDS: Nystatin 100,000 Units/gm Topical Pow(15 gm) TOP SCH (10:32)
[2017-07-02] MEDS: VITAMIN C 500MG PO SCH (10:32)
--- NOTE | 2017-07-02 13:16 | CP.PCM.PN ---
<Yonatan Rodriguez - Last Filed: 07/02/17 13:19> Subjective - Date & Time of Evaluation Date of Evaluation: 07/02/17 Time of Evaluation: 13:14 - Subjective Subjective: Patient seen and examined at bedside. Per nursing no acute events occurred overnight. The patient is still reporting a dry cough that she's had for the past couple of days. She denies any chest pain, nausea, vomiting, lightheadedness, dizziness, fevers, chills, abdominal pain, constipation, diarrhea, or any other complaints. Objective - Vital Signs/Intake and Output Vital Signs (last 24 hours): Temp Pulse Resp BP Pulse Ox 99 F 90 20 145/57 L 93 L 07/02/17 08:43 07/02/17 09:38 07/02/17 08:43 07/02/17 09:38 07/02/17 08:43 Intake and Output: 07/02/17 07/02/17 06:59 18:59 Intake Total 660 Output Total 1 Balance 659 - Medications Medications: Current Medications Acetaminophen (Tylenol 325mg Tab) 650 mg PO Q4 PRN PRN Reason: Fever >100.4 F Last Admin: 06/30/17 14:59 Dose: 650 mg Acetaminophen/Butalbital/Caffeine (Fioricet) 1 tab PO Q4H PRN PRN Reason: Headache Last Admin: 06/29/17 17:42 Dose: 1 tab Albuterol/Ipratropium (Duoneb 3 Mg/0.5 Mg (3 Ml) Ud) 3 ml IH [id number] PRN PRN Reason: Shortness of Breath Last Admin: 07/01/17 17:38 Dose: 3 ml Ascorbic Acid (Vitamin C 500 Mg Tab) 500 mg PO BID [facility] Last Admin: 07/02/17 09:36 Dose: Not Given Benzonatate (Tessalon Perles) 100 mg PO TID [facility] Last Admin: 07/02/17 09:36 Dose: 100 mg Docusate Sodium (Colace) 100 mg PO DAILY [facility] Last Admin: 07/02/17 10:23 Dose: 100 mg Ferrous Sulfate (Feosol) 324 mg PO TID [facility] Last Admin: 07/02/17 10:23 Dose: 324 mg Guaifenesin (Robitussin) 100 mg PO Q4H PRN PRN Reason: Cough Last Admin: 07/02/17 02:50 Dose: 100 mg Heparin Sodium (Porcine) (Heparin) 5,000 units SC Q12 [facility] PRN Reason: Protocol Last Admin: 07/02/17 09:36 Dose: 5,000 units Home Med (Home Med) 1 unit PO DAILY [facility] Last Admin: 07/02/17 10:32 Dose: Not Given Metoprolol Tartrate (Lopressor) 25 mg PO BID [facility] Last Admin: 07/02/17 09:38 Dose: 25 mg Multivitamins/Minerals (Therapeutic-M Tab) 1 tab PO 0800 [facility] Last Admin: 07/02/17 08:23 Dose: 1 tab Nystatin (Nystop Topical Powder) 1 gm TOP DAILY [facility] Last Admin: 07/02/17 10:32 Dose: 1 applic Pantoprazole Sodium (Protonix Ec Tab) 40 mg PO DAILY [facility] Last Admin: 07/02/17 09:36 Dose: 40 mg Polyethylene Glycol (Miralax) 17 gm PO BID [facility] Last Admin: 07/02/17 09:36 Dose: 17 gm Potassium Chloride (Potassium Chloride Oral Soln) 20 meq PO DAILY [facility] Last Admin: 07/02/17 09:36 Dose: 20 meq Potassium Chloride (Klor-Con 10) 10 meq PO BRK [facility] Last Admin: 07/02/17 08:23 Dose: 10 meq Zinc Sulfate (Zinc Sulfate 220 Mg Cap) 220 mg PO DAILY [facility] Last Admin: 07/02/17 09:36 Dose: 220 mg - Labs Labs: 07/01/17 08:00 07/01/17 08:00 PT 13.1 SECONDS (9.4-12.5) H 06/15/17 11:00 INR 1.19 (0.93-1.08) H 06/15/17 11:00 APTT 31.3 Seconds (25.1-36.5) 06/15/17 11:00 - Head Exam Head Exam: ATRAUMATIC, NORMAL INSPECTION, NORMOCEPHALIC - Eye Exam Eye Exam: EOMI, Normal appearance, PERRL Pupil Exam: NORMAL ACCOMODATION, PERRL. absent: Irregular, Unequal - ENT Exam ENT Exam: Mucous Membranes Moist, Normal Exam, Normal Oropharynx - Neck Exam Neck Exam: Normal Inspection. absent: Lymphadenopathy, Thyromegaly - Respiratory Exam Respiratory Exam: Clear to Ausculation Bilateral, NORMAL BREATHING PATTERN. absent: Chest Wall Tenderness, Prolonged Expiratory Phase, Stridor - Cardiovascular Exam Cardiovascular Exam: REGULAR RHYTHM, +S1, +S2. absent: Gallop, Rubs - GI/Abdominal Exam GI & Abdominal Exam: Soft, Normal Bowel Sounds. absent: Tenderness, Hyperactive Bowel Sounds - Extremities Exam Extremities Exam: Full ROM, Normal Inspection. absent: Joint Swelling, Pedal Edema, Tenderness - Back Exam Back Exam: NORMAL INSPECTION. absent: CVA tenderness (L), CVA tenderness (R), paraspinal tenderness - Neurological Exam Neurological Exam: Alert, Awake, Normal Gait, Oriented x3 - Psychiatric Exam Psychiatric exam: Normal Affect, Normal Mood - Skin Skin Exam: Dry, Intact Assessment and Plan - Assessment and Plan (Free Text) Assessment: 67 F with a PMHx of asthma, arthritis, and vitamin C deficiency who presents with RLE ulcer/cellulitis and draining right lower extremity ulcer, along with UTI. Pt completed course of Vancomycin and Azobactam for cellulitis and UTI. Pt received chest x-ray for cough and SOB, which is negative for any acute process. Incentive spirometer given. Pt is pending placement in [facility] at this time. Plan: 1. RLE cellulitis/ulcer with culture positive for Proteus Mirabilis and beta hemolytic group b strep -Resolved - continue tylenol prn fevers - continue MV/Vitamin C and Zinc - Physical therapy recommends [facility] -Podiatry consulted, rec's appreciated. - multipodus boot to be worn at all times as per podiatry -Patient pending placement. Sister had a meeting with Social work today. On 07/09 or 07/10 of next week she is expected to go and get the remainder of the paperwork to obtain the Medicare number. We are continuing to work towards getting placement or sending home with services pending Insurance. 2. Hypokalemia - Resolved. -Kcl discontinued. 3. Headache - continue fioricet PRN 4. Shortness of breath - Chest x-ray clear - Incentive spirometry - continue duoneb PRN - O2 Sat >90% on room air. Patient sating at 94 % on room air. -CXR ordered negative. - cont O2 NC PRN 5. Non productive cough -Repeat CXR was negative to active pulmonary disease -Continue Robutissin. Mucinex DM added. Will continue to monitor closely. 6. UTI - Completed Azactam course 7. Anemia likely 2/2 iron deficiency anemia - Hg stable -Continue Feosol -trend H/H 8. vitamin C deficiency - continue MV and Vitamin C ordered 9. GI/DVT ppx - Heparin - Protonix <Ji Murillo - Last Filed: 07/02/17 18:14> Objective - Vital Signs/Intake and Output Vital Signs (last 24 hours): Temp Pulse Resp BP Pulse Ox 99.5 F 81 20 137/69 95 07/02/17 16:00 07/02/17 16:00 07/02/17 16:00 07/02/17 17:01 07/02/17 16:00 Intake and Output: 07/02/17 07/02/17 06:59 18:59 Intake Total 660 480 Output Total 1 Balance 659 480 - Medications Medications: Current Medications Acetaminophen (Tylenol 325mg Tab) 650 mg PO Q4 PRN PRN Reason: Fever >100.4 F Last Admin: 06/30/17 14:59 Dose: 650 mg Acetaminophen/Butalbital/Caffeine (Fioricet) 1 tab PO Q4H PRN PRN Reason: Headache Last Admin: 06/29/17 17:42 Dose: 1 tab Albuterol/Ipratropium (Duoneb 3 Mg/0.5 Mg (3 Ml) Ud) 3 ml IH [id number] PRN PRN Reason: Shortness of Breath Last Admin: 07/01/17 17:38 Dose: 3 ml Ascorbic Acid (Vitamin C 500 Mg Tab) 500 mg PO BID [facility] Last Admin: 07/02/17 17:01 Dose: 500 mg Benzonatate (Tessalon Perles) 100 mg PO TID [facility] Last Admin: 07/02/17 17:01 Dose: 100 mg Docusate Sodium (Colace) 100 mg PO DAILY [facility] Last Admin: 07/02/17 10:23 Dose: 100 mg Ferrous Sulfate (Feosol) 324 mg PO TID [facility] Last Admin: 07/02/17 17:01 Dose: 324 mg Guaifenesin (Robitussin) 100 mg PO Q4H PRN PRN Reason: Cough Last Admin: 07/02/17 02:50 Dose: 100 mg Guaifenesin/Dextromethorphan (Mucinex-Dm 600-30 Mg) 1 tab PO BID [facility] Last Admin: 07/02/17 17:01 Dose: 1 tab Heparin Sodium (Porcine) (Heparin) 5,000 units SC Q12 [facility] PRN Reason: Protocol Last Admin: 07/02/17 09:36 Dose: 5,000 units Home Med (Home Med) 1 unit PO DAILY [facility] Last Admin: 07/02/17 10:32 Dose: Not Given Metoprolol Tartrate (Lopressor) 25 mg PO BID [facility] Last Admin: 07/02/17 17:01 Dose: 25 mg Multivitamins/Minerals (Therapeutic-M Tab) 1 tab PO 0800 [facility] Last Admin: 07/02/17 08:23 Dose: 1 tab Nystatin (Nystop Topical Powder) 1 gm TOP DAILY [facility] Last Admin: 07/02/17 10:32 Dose: 1 applic Pantoprazole Sodium (Protonix Ec Tab) 40 mg PO DAILY [facility] Last Admin: 07/02/17 09:36 Dose: 40 mg Polyethylene Glycol (Miralax) 17 gm PO BID [facility] Last Admin: 07/02/17 17:03 Dose: Not Given Zinc Sulfate (Zinc Sulfate 220 Mg Cap) 220 mg PO DAILY [facility] Last Admin: 07/02/17 09:36 Dose: 220 mg - Labs Labs: 07/01/17 08:00 07/01/17 08:00 PT 13.1 SECONDS (9.4-12.5) H 06/15/17 11:00 INR 1.19 (0.93-1.08) H 06/15/17 11:00 APTT 31.3 Seconds (25.1-36.5) 06/15/17 11:00 Attending/Attestation - Attestation I have personally seen and examined this patient.: Yes I have fully participated in the care of the patient.: Yes I have reviewed all pertinent clinical information, including history, physical exam and plan: Yes Notes (Text): RLE cellulitis/ulcer with culture positive for Proteus Mirabilis and beta hemolytic group b strep -Resolved Non productive cough -likely bronchitis no fever
--- NOTE | 2017-07-02 16:55 | CP.PCM.PN ---
Subjective - Date & Time of Evaluation Date of Evaluation: 07/02/17 Time of Evaluation: 14:00 - Subjective Subjective: Infectious Disease Follow Up: July 02, 2017 67 yo female presenting with 3 weeks of RLE ulceration, swelling and leaking from the wound as well as multiple falls in the past 3 weeks. The patient has an extensive medical history of asthma, arthritis, vitamin C deficiency, and possible thyroid disease. Had headaches and episodes of SOB overnight. draining RLE ulceration... cellulitis improved/resolved. Multiple chronic medical issues. Still with persistent dry cough. Otherwise stable. Mild erythema and excoriation of the folds in the abdomen and under the breasts. Objective - Vital Signs/Intake and Output Vital Signs (last 24 hours): Temp Pulse Resp BP Pulse Ox 99 F 90 20 145/57 L 93 L 07/02/17 08:43 07/02/17 09:38 07/02/17 08:43 07/02/17 09:38 07/02/17 08:43 Intake and Output: 07/02/17 07/02/17 06:59 18:59 Intake Total 660 480 Output Total 1 Balance 659 480 - Medications Medications: Current Medications Acetaminophen (Tylenol 325mg Tab) 650 mg PO Q4 PRN PRN Reason: Fever >100.4 F Last Admin: 06/30/17 14:59 Dose: 650 mg Acetaminophen/Butalbital/Caffeine (Fioricet) 1 tab PO Q4H PRN PRN Reason: Headache Last Admin: 06/29/17 17:42 Dose: 1 tab Albuterol/Ipratropium (Duoneb 3 Mg/0.5 Mg (3 Ml) Ud) 3 ml IH [id number] PRN PRN Reason: Shortness of Breath Last Admin: 07/01/17 17:38 Dose: 3 ml Ascorbic Acid (Vitamin C 500 Mg Tab) 500 mg PO BID [facility] Last Admin: 07/02/17 09:36 Dose: Not Given Benzonatate (Tessalon Perles) 100 mg PO TID [facility] Last Admin: 07/02/17 13:36 Dose: 100 mg Docusate Sodium (Colace) 100 mg PO DAILY [facility] Last Admin: 07/02/17 10:23 Dose: 100 mg Ferrous Sulfate (Feosol) 324 mg PO TID [facility] Last Admin: 07/02/17 13:36 Dose: 324 mg Guaifenesin (Robitussin) 100 mg PO Q4H PRN PRN Reason: Cough Last Admin: 07/02/17 02:50 Dose: 100 mg Guaifenesin/Dextromethorphan (Mucinex-Dm 600-30 Mg) 1 tab PO BID [facility] Heparin Sodium (Porcine) (Heparin) 5,000 units SC Q12 [facility] PRN Reason: Protocol Last Admin: 07/02/17 09:36 Dose: 5,000 units Home Med (Home Med) 1 unit PO DAILY [facility] Last Admin: 07/02/17 10:32 Dose: Not Given Metoprolol Tartrate (Lopressor) 25 mg PO BID [facility] Last Admin: 07/02/17 09:38 Dose: 25 mg Multivitamins/Minerals (Therapeutic-M Tab) 1 tab PO 0800 [facility] Last Admin: 07/02/17 08:23 Dose: 1 tab Nystatin (Nystop Topical Powder) 1 gm TOP DAILY [facility] Last Admin: 07/02/17 10:32 Dose: 1 applic Pantoprazole Sodium (Protonix Ec Tab) 40 mg PO DAILY [facility] Last Admin: 07/02/17 09:36 Dose: 40 mg Polyethylene Glycol (Miralax) 17 gm PO BID [facility] Last Admin: 07/02/17 09:36 Dose: 17 gm Zinc Sulfate (Zinc Sulfate 220 Mg Cap) 220 mg PO DAILY [facility] Last Admin: 07/02/17 09:36 Dose: 220 mg - Labs Labs: 07/01/17 08:00 07/01/17 08:00 PT 13.1 SECONDS (9.4-12.5) H 06/15/17 11:00 INR 1.19 (0.93-1.08) H 06/15/17 11:00 APTT 31.3 Seconds (25.1-36.5) 06/15/17 11:00 - Constitutional Appears: Non-toxic, No Acute Distress, Chronically Ill - Head Exam Head Exam: ATRAUMATIC, NORMOCEPHALIC - Eye Exam Eye Exam: EOMI, PERRL Pupil Exam: NORMAL ACCOMODATION, PERRL - ENT Exam ENT Exam: Mucous Membranes Moist, Normal External Ear Exam, TM's Normal Bilaterally - Neck Exam Neck Exam: Full ROM, Normal Inspection - Respiratory Exam Respiratory Exam: Clear to Ausculation Bilateral, NORMAL BREATHING PATTERN. absent: Rales, Rhonchi, Wheezes - Cardiovascular Exam Cardiovascular Exam: REGULAR RHYTHM, RRR, +S1, +S2 - GI/Abdominal Exam GI & Abdominal Exam: Soft, Normal Bowel Sounds. absent: Distended, Tenderness - Extremities Exam Extremities Exam: Joint Swelling, Pedal Edema Additional comments: RLE mild swelling R ankle with ulcer - improving b/l chronic venous changes tinea and chronic venous stasis changes. Signs of arthritis in joints of the hands. - Neurological Exam Neurological Exam: Alert, Awake, CN II-XII Intact, Oriented x3 - Psychiatric Exam Psychiatric exam: Normal Affect, Normal Mood - Skin Skin Exam: Normal Color Additional comments: Right lower leg superficial ulceration appears to be mostly healed. Cellultitis of right lower leg resolved. Assessment and Plan - Assessment and Plan (Free Text) Assessment: 67 yo female with multiple medical issues with PCN allergy diagnosed as a teenager verified by an Operations Specialist. The patient with leukocytosis. Consider use of Aztreonam for antibiotic coverage for now. Await cultures especially urine cultures. Diabetes and HTN history? Local wound care. Elevated ESR and C-reactive protein. Completed Vancomycin and Aztreonam for antibiotic coverage. UTI with E. coli sensitive to Azactam. Was on vancomycin for cellulitis IV. For UTI for 5-7 days treatment... completed. Supportive care. Cellulitis appears improved. No new issues. Social issues currently. Thank you for allowing me to participate in the care of the patient, we will follow with you.
[2017-07-02] MEDS: guaiFENesin-DM 600-30 mg ER Tab PO SCH (17:01)
[2017-07-03] MEDS: Multivitamin With Minerals Tab PO SCH (09:48)
[2017-07-03] MEDS: guaiFENesin-DM 600-30 mg ER Tab PO SCH ×2 (09:48→17:41)
[2017-07-03] MEDS: POLYETHYLENE GLYCOL 3350 17 GM/Dose PACKET PO SCH ×2 (09:49→17:40)
[2017-07-03] MEDS: Nystatin 100,000 Units/gm Topical Pow(15 gm) TOP SCH (09:49)
[2017-07-03] MEDS: Pantoprazole 40 mg EC Tab PO SCH (09:49)
[2017-07-03] MEDS: VITAMIN C 500MG PO SCH (09:51)
--- NOTE | 2017-07-03 15:29 | CP.PCM.PN ---
<Bernard West - Last Filed: 07/03/17 15:21> Subjective - Date & Time of Evaluation Date of Evaluation: 07/03/17 Time of Evaluation: 15:22 - Subjective Subjective: Medicine progress note for Dr. Crook - Bernard Bueno DO PGY - 1, Pager [phone] Pt s/e bedside. No acute events overnight. Pt states that she had a bout of hemoptysis over night, and that she feels like her throat is very dry because of her oxygen. She further states that she is able to sit in a chair if allowed. We relayed to the nursing staff to get her out of bed. At this time, pt denies any other complaints including n/v/d/f/ch. Objective - Vital Signs/Intake and Output Vital Signs (last 24 hours): Temp Pulse Resp BP Pulse Ox 99.9 F H 98 H 20 140/70 95 07/03/17 08:13 07/03/17 09:50 07/03/17 08:13 07/03/17 09:50 07/03/17 08:13 Intake and Output: 07/03/17 07/03/17 06:59 18:59 Intake Total 820 Balance 820 - Medications Medications: Current Medications Acetaminophen (Tylenol 325mg Tab) 650 mg PO Q4 PRN PRN Reason: Fever >100.4 F Last Admin: 07/02/17 18:58 Dose: 650 mg Acetaminophen/Butalbital/Caffeine (Fioricet) 1 tab PO Q4H PRN PRN Reason: Headache Last Admin: 06/29/17 17:42 Dose: 1 tab Albuterol/Ipratropium (Duoneb 3 Mg/0.5 Mg (3 Ml) Ud) 3 ml IH [id number] PRN PRN Reason: Shortness of Breath Last Admin: 07/01/17 17:38 Dose: 3 ml Ascorbic Acid (Vitamin C 500 Mg Tab) 500 mg PO BID [facility] Last Admin: 07/03/17 09:48 Dose: 500 mg Benzonatate (Tessalon Perles) 100 mg PO TID [facility] Last Admin: 07/03/17 13:22 Dose: 100 mg Docusate Sodium (Colace) 100 mg PO DAILY [facility] Last Admin: 07/03/17 09:48 Dose: 100 mg Ferrous Sulfate (Feosol) 324 mg PO TID [facility] Last Admin: 07/03/17 13:22 Dose: 324 mg Guaifenesin (Robitussin) 100 mg PO Q4H PRN PRN Reason: Cough Last Admin: 07/02/17 21:46 Dose: 100 mg Guaifenesin/Dextromethorphan (Mucinex-Dm 600-30 Mg) 1 tab PO BID [facility] Last Admin: 07/03/17 09:48 Dose: 1 tab Heparin Sodium (Porcine) (Heparin) 5,000 units SC Q12 [facility] PRN Reason: Protocol Last Admin: 07/03/17 09:50 Dose: 5,000 units Home Med (Home Med) 1 unit PO DAILY [facility] Last Admin: 07/03/17 09:51 Dose: 1 unit Metoprolol Tartrate (Lopressor) 25 mg PO BID [facility] Last Admin: 07/03/17 09:50 Dose: 25 mg Multivitamins/Minerals (Therapeutic-M Tab) 1 tab PO 0800 [facility] Last Admin: 07/03/17 09:48 Dose: 1 tab Nystatin (Nystop Topical Powder) 1 gm TOP DAILY [facility] Last Admin: 07/03/17 09:49 Dose: 1 applic Pantoprazole Sodium (Protonix Ec Tab) 40 mg PO DAILY [facility] Last Admin: 07/03/17 09:49 Dose: 40 mg Polyethylene Glycol (Miralax) 17 gm PO BID [facility] Last Admin: 07/03/17 09:49 Dose: 17 gm Zinc Sulfate (Zinc Sulfate 220 Mg Cap) 220 mg PO DAILY [facility] Last Admin: 07/03/17 09:48 Dose: 220 mg - Labs Labs: 07/01/17 08:00 07/01/17 08:00 PT 13.1 SECONDS (9.4-12.5) H 06/15/17 11:00 INR 1.19 (0.93-1.08) H 06/15/17 11:00 APTT 31.3 Seconds (25.1-36.5) 06/15/17 11:00 - Additional Findings Additional findings: Phys Exam: VS as below Const'l: +looks chronically ill; a&o x 4, nad Head/Neck: neck supple, no jvd, trachea midline, carotid midline, no cervical /head mass Eyes: javier, nonicteric sclera, eom intact ENT: auditory acuity grossly intact, throat not congested, no nasal deformity Cardio: rrr, no m/r/g, no carotid bruit, nml s1, s2 Pulm: +pt shows abdominal breathing; no accessory muscle use, equal nml breath sounds bilaterally, ctab Abd: s/nt/nd, nbs x 4 q, no palpable masses Derm: no rashes, no ulcers, no lesions Extr: +pt wearing podiatry boots b/l LE; Cellulitis in rle resolved; Neuro: cn II-XII grossly intact, ue and le 5/5 muscle strength bilaterally, no los ue, le bilaterally and core Assessment and Plan - Assessment and Plan (Free Text) Assessment: A/P: 67 F with a PMHx of asthma, arthritis, and vitamin C deficiency who presents with RLE ulcer/cellulitis and draining right lower extremity ulcer, along with UTI. Pt completed course of Vancomycin and Azobactam for cellulitis and UTI. Pt received chest x-ray for cough and SOB, which is negative for any acute process. Incentive spirometer given. Pt is pending placement in [facility] at this time. RLE cellulitis/ulcer with culture positive for Proteus Mirabilis and beta hemolytic group b strep - Resolved - Continue tylenol prn fevers - Continue MV/Vitamin C and Zinc - Physical therapy recommends TED: waiting for pension papers from her sister - Podiatry has signed off Multipodus boot to be worn at all times as per podiatry Hypokalemia - Resolved - Kcl discontinued - No need for daily labs at this point Headache - Continue fioricet PRN Shortness of breath with cough - Chest x-ray 06/29 negative - Incentive spirometry - pt advised to use everyday - Continue duoneb PRN - Pt is still using nasal cannula prn - Continue Robitussin, Mucinex UTI - Resolved Anemia likely 2/2 iron deficiency anemia - Continue Feosol - Monitor H/H Vitamin C deficiency - Continue MV and Vitamin C GI/DVT ppx - Heparin - Protonix Dispo: Awaiting pt's paperwork for her to go to [facility]. Will need PT eval 24 hours before expected departure <Edilson Crook - Last Filed: 07/03/17 19:51> Objective - Vital Signs/Intake and Output Vital Signs (last 24 hours): Temp Pulse Resp BP Pulse Ox 99.8 F H 80 18 156/78 H 94 L 07/03/17 17:00 07/03/17 17:41 07/03/17 15:53 07/03/17 17:41 07/03/17 15:53 - Medications Medications: Current Medications Acetaminophen (Tylenol 325mg Tab) 650 mg PO Q4 PRN PRN Reason: Fever >100.4 F Last Admin: 07/03/17 16:00 Dose: 650 mg Acetaminophen/Butalbital/Caffeine (Fioricet) 1 tab PO Q4H PRN PRN Reason: Headache Last Admin: 06/29/17 17:42 Dose: 1 tab Albuterol/Ipratropium (Duoneb 3 Mg/0.5 Mg (3 Ml) Ud) 3 ml IH [id number] PRN PRN Reason: Shortness of Breath Last Admin: 07/01/17 17:38 Dose: 3 ml Ascorbic Acid (Vitamin C 500 Mg Tab) 500 mg PO BID [facility] Last Admin: 07/03/17 17:40 Dose: 500 mg Benzonatate (Tessalon Perles) 100 mg PO TID [facility] Last Admin: 07/03/17 17:40 Dose: 100 mg Docusate Sodium (Colace) 100 mg PO DAILY [facility] Last Admin: 07/03/17 09:48 Dose: 100 mg Ferrous Sulfate (Feosol) 324 mg PO TID [facility] Last Admin: 07/03/17 17:41 Dose: 324 mg Guaifenesin (Robitussin) 100 mg PO Q4H PRN PRN Reason: Cough Last Admin: 07/02/17 21:46 Dose: 100 mg Guaifenesin/Dextromethorphan (Mucinex-Dm 600-30 Mg) 1 tab PO BID [facility] Last Admin: 07/03/17 17:41 Dose: 1 tab Heparin Sodium (Porcine) (Heparin) 5,000 units SC Q12 [facility] PRN Reason: Protocol Last Admin: 07/03/17 09:50 Dose: 5,000 units Home Med (Home Med) 1 unit PO DAILY [facility] Last Admin: 07/03/17 09:51 Dose: 1 unit Metoprolol Tartrate (Lopressor) 25 mg PO TID [facility] Multivitamins/Minerals (Therapeutic-M Tab) 1 tab PO 0800 [facility] Last Admin: 07/03/17 09:48 Dose: 1 tab Nystatin (Nystop Topical Powder) 1 gm TOP DAILY [facility] Last Admin: 07/03/17 09:49 Dose: 1 applic Pantoprazole Sodium (Protonix Ec Tab) 40 mg PO DAILY [facility] Last Admin: 07/03/17 09:49 Dose: 40 mg Polyethylene Glycol (Miralax) 17 gm PO BID [facility] Last Admin: 07/03/17 17:40 Dose: 17 gm Zinc Sulfate (Zinc Sulfate 220 Mg Cap) 220 mg PO DAILY [facility] Last Admin: 07/03/17 09:48 Dose: 220 mg - Labs Labs: 07/03/17 16:25 07/03/17 16:25 PT 13.1 SECONDS (9.4-12.5) H 06/15/17 11:00 INR 1.19 (0.93-1.08) H 06/15/17 11:00 APTT 31.3 Seconds (25.1-36.5) 06/15/17 11:00 Attending/Attestation - Attestation I have personally seen and examined this patient.: Yes I have fully participated in the care of the patient.: Yes I have reviewed all pertinent clinical information, including history, physical exam and plan: Yes Notes (Text): 07/03/17 19:49 Patient seen and examined independently at bedside. Overnight issues reviewed. Labs, vitals reviewed. Low grade fever noted. CXR obtained, ID follow up ongoing and recommendations noted. She has completed course of her antibiotics therapy. Dedicated Incentive spirometry and OOB to chair today. Awaiting final disposition. Agree with the plan as outlined by the resident.
[2017-07-03 16:32] LABS: BASO # 0.06 K/mm3 (0.0-2.0); BASO % 0.8 % (0.0-3.0); EOS # 0.8 (0.0-0.7); EOS % 10.8 % (1.5-5.0); GRAN # 3.6 (1.4-6.5); GRAN % 47.1 % (50.0-68.0); HEMOGLOBIN 9.3 g/dL (12.0-16.0); LYMPH # 1.8 (1.2-3.4); LYMPH % 23.7 % (22.0-35.0); MEAN CELL VOLUME 82.5 fl (80.0-105.0); MEAN CORPUSCULAR HGB CONC 29.1 g/dl (31.0-37.0); MONO # 1.4 (0.1-0.6); MONO % 17.6 % (1.0-6.0); RBC 3.88 10^6/uL (3.5-6.1); RED CELL DISTRIBUTION WIDTH 23.5 % (11.5-14.5); WHITE BLOOD COUNT 7.7 10^3/ul (4.5-11.0)
--- NOTE | 2017-07-03 16:49 | CP.PCM.PN ---
Subjective - Date & Time of Evaluation Date of Evaluation: 07/03/17 Time of Evaluation: 16:00 - Subjective Subjective: Infectious Disease Follow Up: July 03, 2017 67 yo female presenting with 3 weeks of RLE ulceration, swelling and leaking from the wound as well as multiple falls in the past 3 weeks. The patient has an extensive medical history of asthma, arthritis, vitamin C deficiency, and possible thyroid disease. Had headaches and episodes of SOB overnight. draining RLE ulceration... cellulitis improved/resolved. Multiple chronic medical issues. Still with persistent dry cough. Otherwise stable. Mild erythema and excoriation of the folds in the abdomen and under the breasts. Objective - Vital Signs/Intake and Output Vital Signs (last 24 hours): Temp Pulse Resp BP Pulse Ox 100.4 F H 80 18 156/78 H 94 L 07/03/17 16:00 07/03/17 15:53 07/03/17 15:53 07/03/17 15:53 07/03/17 15:53 Intake and Output: 07/03/17 07/03/17 06:59 18:59 Intake Total 820 Balance 820 - Medications Medications: Current Medications Acetaminophen (Tylenol 325mg Tab) 650 mg PO Q4 PRN PRN Reason: Fever >100.4 F Last Admin: 07/03/17 16:00 Dose: 650 mg Acetaminophen/Butalbital/Caffeine (Fioricet) 1 tab PO Q4H PRN PRN Reason: Headache Last Admin: 06/29/17 17:42 Dose: 1 tab Albuterol/Ipratropium (Duoneb 3 Mg/0.5 Mg (3 Ml) Ud) 3 ml IH [id number] PRN PRN Reason: Shortness of Breath Last Admin: 07/01/17 17:38 Dose: 3 ml Ascorbic Acid (Vitamin C 500 Mg Tab) 500 mg PO BID [facility] Last Admin: 07/03/17 09:48 Dose: 500 mg Benzonatate (Tessalon Perles) 100 mg PO TID [facility] Last Admin: 07/03/17 13:22 Dose: 100 mg Docusate Sodium (Colace) 100 mg PO DAILY [facility] Last Admin: 07/03/17 09:48 Dose: 100 mg Ferrous Sulfate (Feosol) 324 mg PO TID [facility] Last Admin: 07/03/17 13:22 Dose: 324 mg Guaifenesin (Robitussin) 100 mg PO Q4H PRN PRN Reason: Cough Last Admin: 07/02/17 21:46 Dose: 100 mg Guaifenesin/Dextromethorphan (Mucinex-Dm 600-30 Mg) 1 tab PO BID [facility] Last Admin: 07/03/17 09:48 Dose: 1 tab Heparin Sodium (Porcine) (Heparin) 5,000 units SC Q12 [facility] PRN Reason: Protocol Last Admin: 07/03/17 09:50 Dose: 5,000 units Home Med (Home Med) 1 unit PO DAILY [facility] Last Admin: 07/03/17 09:51 Dose: 1 unit Metoprolol Tartrate (Lopressor) 25 mg PO BID [facility] Last Admin: 07/03/17 09:50 Dose: 25 mg Multivitamins/Minerals (Therapeutic-M Tab) 1 tab PO 0800 [facility] Last Admin: 07/03/17 09:48 Dose: 1 tab Nystatin (Nystop Topical Powder) 1 gm TOP DAILY [facility] Last Admin: 07/03/17 09:49 Dose: 1 applic Pantoprazole Sodium (Protonix Ec Tab) 40 mg PO DAILY [facility] Last Admin: 07/03/17 09:49 Dose: 40 mg Polyethylene Glycol (Miralax) 17 gm PO BID [facility] Last Admin: 07/03/17 09:49 Dose: 17 gm Zinc Sulfate (Zinc Sulfate 220 Mg Cap) 220 mg PO DAILY [facility] Last Admin: 07/03/17 09:48 Dose: 220 mg - Labs Labs: 07/03/17 16:25 07/01/17 08:00 PT 13.1 SECONDS (9.4-12.5) H 06/15/17 11:00 INR 1.19 (0.93-1.08) H 06/15/17 11:00 APTT 31.3 Seconds (25.1-36.5) 06/15/17 11:00 - Constitutional Appears: Non-toxic, No Acute Distress, Chronically Ill - Head Exam Head Exam: ATRAUMATIC, NORMOCEPHALIC - Eye Exam Eye Exam: EOMI, PERRL Pupil Exam: NORMAL ACCOMODATION, PERRL - ENT Exam ENT Exam: Mucous Membranes Moist, Normal External Ear Exam, TM's Normal Bilaterally - Neck Exam Neck Exam: Full ROM, Normal Inspection - Respiratory Exam Respiratory Exam: Clear to Ausculation Bilateral, NORMAL BREATHING PATTERN. absent: Rales, Rhonchi, Wheezes - Cardiovascular Exam Cardiovascular Exam: REGULAR RHYTHM, RRR, +S1, +S2 - GI/Abdominal Exam GI & Abdominal Exam: Soft, Normal Bowel Sounds. absent: Distended, Tenderness - Extremities Exam Extremities Exam: Joint Swelling, Pedal Edema Additional comments: RLE mild swelling R ankle with ulcer - improving b/l chronic venous changes tinea and chronic venous stasis changes. Signs of arthritis in joints of the hands. - Neurological Exam Neurological Exam: Alert, Awake, CN II-XII Intact, Oriented x3 - Psychiatric Exam Psychiatric exam: Normal Affect, Normal Mood - Skin Skin Exam: Normal Color Additional comments: Right lower leg superficial ulceration appears to be mostly healed. Cellultitis of right lower leg resolved. Assessment and Plan - Assessment and Plan (Free Text) Assessment: 67 yo female with multiple medical issues with PCN allergy diagnosed as a teenager verified by an Co Founder And Chairman. The patient with leukocytosis. Await cultures especially urine cultures. Diabetes and HTN history? Local wound care. Elevated ESR and C-reactive protein. Completed Vancomycin and Aztreonam for antibiotic coverage. UTI with E. coli sensitive to Azactam. Was on Vancomycin for cellulitis IV. For UTI for 5-7 days treatment... completed. Supportive care. Cellulitis appears improved. No new issues. Social issues currently. Thank you for allowing me to participate in the care of the patient, we will follow with you.
[2017-07-03 17:00] LABS: BLOOD UREA NITROGEN 13 mg/dL (7-21); GFR AFRICAN-AMERICAN > 60; GFR NON-AFRICAN AMERICAN 55
[2017-07-03 17:01] LABS: ALB/GLOB RATIO 0.8 (1.1-1.8); ALBUMIN 3.3 g/dL (3.0-4.8); ALT/SGPT 16 U/L (7-56); AST/SGOT 40 U/L (14-36); CALCIUM 8.1 mg/dL (8.4-10.5)
[2017-07-04] MEDS: guaiFENesin 100 mg/5 ml Syrup UD PO PRN ×2 (00:46→06:14)
[2017-07-04] MEDS: Albuterol-Ipratrop 3 mg / 0.5 (3 ml) UD IH PRN (07:48)
[2017-07-04 08:12] LABS: BASO # 0.09 K/mm3 (0.0-2.0); BASO % 1.2 % (0.0-3.0); EOS # 0.7 (0.0-0.7); EOS % 9.4 % (1.5-5.0); GRAN # 3.42 (1.4-6.5); GRAN % 45.4 % (50.0-68.0); HEMOGLOBIN 9.4 g/dL (12.0-16.0); LYMPH # 2.1 (1.2-3.4); LYMPH % 27.2 % (22.0-35.0); MEAN CELL VOLUME 82.7 fl (80.0-105.0); MEAN CORPUSCULAR HEMOGLOBIN 24.2 pg (25.0-35.0); MEAN CORPUSCULAR HGB CONC 29.3 g/dl (31.0-37.0); MEAN PLATELET VOLUME 8.3 fl (7.0-11.0); MONO # 1.3 (0.1-0.6); MONO % 16.8 % (1.0-6.0); RBC 3.88 10^6/uL (3.5-6.1); RED CELL DISTRIBUTION WIDTH 23.3 % (11.5-14.5); WHITE BLOOD COUNT 7.5 10^3/ul (4.5-11.0)
[2017-07-04 08:56] LABS: ALB/GLOB RATIO 0.7 (1.1-1.8); ALBUMIN 3.2 g/dL (3.0-4.8); ALT/SGPT 16 U/L (7-56); AST/SGOT 36 U/L (14-36); BLOOD UREA NITROGEN 13 mg/dL (7-21); GFR AFRICAN-AMERICAN > 60; GFR NON-AFRICAN AMERICAN > 60
[2017-07-04] MEDS: Multivitamin With Minerals Tab PO SCH (09:02)
--- NOTE | 2017-07-04 09:53 | RAD ---
HISTORY: cough COMPARISON: Chest x-ray performed 06/29/17 TECHNIQUE: Chest, one view. FINDINGS: Examination limited by habitus. The patient's chin obscures evaluation of the lung apices. LUNGS: Nonspecific scattered reticular nodular opacities. Please note that chest x-ray has limited sensitivity for the detection of pulmonary masses. PLEURA: No significant pleural effusion identified. No definite pneumothorax . CARDIOVASCULAR: Cardiomegaly. OSSEOUS STRUCTURES: Degenerative changes. VISUALIZED UPPER ABDOMEN: Unremarkable. OTHER FINDINGS: None. IMPRESSION: Cardiomegaly. Nonspecific scattered reticulonodular opacities.
[2017-07-04] MEDS: guaiFENesin-DM 600-30 mg ER Tab PO SCH ×2 (10:17→18:24)
[2017-07-04] MEDS: Pantoprazole 40 mg EC Tab PO SCH (10:17)
[2017-07-04] MEDS: POLYETHYLENE GLYCOL 3350 17 GM/Dose PACKET PO SCH ×3 (10:18→18:24)
[2017-07-04] MEDS: VITAMIN C 500MG PO SCH (10:19)
[2017-07-04] MEDS: Nystatin 100,000 Units/gm Topical Pow(15 gm) TOP SCH (10:19)
--- NOTE | 2017-07-04 13:58 | CP.PCM.PN ---
<Bernard West - Last Filed: 07/04/17 13:43> Subjective - Date & Time of Evaluation Date of Evaluation: 07/04/17 Time of Evaluation: 13:43 - Subjective Subjective: Medicine progress note for Dr. Crook - Bernard Bueno DO PGY - 1, Pager [phone] Pt s/e bedside. No acute events overnight. Pt states that she has not had any more bouts of hemoptysis over night, but her throat is still dry. She further states that she is able to sit in a chair, but she was not helped out of bed yesterday. I relayed to the nursing staff to get her out of bed. Pt had a low grade fever overnight a few times. Go on c/s. At this time, pt denies any other complaints including n/v/d/f/ch. Objective - Vital Signs/Intake and Output Vital Signs (last 24 hours): Temp Pulse Resp BP Pulse Ox 99.2 F 84 20 165/78 H 99 07/04/17 08:13 07/04/17 10:17 07/04/17 08:13 07/04/17 10:17 07/04/17 08:13 Intake and Output: 07/04/17 07/04/17 06:59 18:59 Intake Total 2120 Output Total 600 Balance 1520 - Medications Medications: Current Medications Acetaminophen (Tylenol 325mg Tab) 650 mg PO Q4 PRN PRN Reason: Fever >100.4 F Last Admin: 07/04/17 00:47 Dose: 650 mg Acetaminophen/Butalbital/Caffeine (Fioricet) 1 tab PO Q4H PRN PRN Reason: Headache Last Admin: 06/29/17 17:42 Dose: 1 tab Albuterol/Ipratropium (Duoneb 3 Mg/0.5 Mg (3 Ml) Ud) 3 ml IH [id number] PRN PRN Reason: Shortness of Breath Last Admin: 07/04/17 07:48 Dose: 3 ml Ascorbic Acid (Vitamin C 500 Mg Tab) 500 mg PO BID [facility] Last Admin: 07/04/17 10:18 Dose: 500 mg Benzonatate (Tessalon Perles) 100 mg PO TID [facility] Last Admin: 07/04/17 10:17 Dose: 100 mg Docusate Sodium (Colace) 100 mg PO DAILY [facility] Last Admin: 07/04/17 10:17 Dose: 100 mg Ferrous Sulfate (Feosol) 324 mg PO TID [facility] Last Admin: 07/04/17 10:16 Dose: 324 mg Guaifenesin (Robitussin) 100 mg PO Q4H PRN PRN Reason: Cough Last Admin: 07/04/17 06:14 Dose: 100 mg Guaifenesin/Dextromethorphan (Mucinex-Dm 600-30 Mg) 1 tab PO BID [facility] Last Admin: 07/04/17 10:17 Dose: 1 tab Heparin Sodium (Porcine) (Heparin) 5,000 units SC Q12 [facility] PRN Reason: Protocol Last Admin: 07/04/17 10:17 Dose: 5,000 units Home Med (Home Med) 1 unit PO DAILY [facility] Last Admin: 07/04/17 10:19 Dose: Not Given Metoprolol Tartrate (Lopressor) 25 mg PO TID [facility] Last Admin: 07/04/17 10:17 Dose: 25 mg Multivitamins/Minerals (Therapeutic-M Tab) 1 tab PO 0800 [facility] Last Admin: 07/04/17 09:02 Dose: 1 tab Nystatin (Nystop Topical Powder) 1 gm TOP DAILY [facility] Last Admin: 07/04/17 10:19 Dose: 1 applic Pantoprazole Sodium (Protonix Ec Tab) 40 mg PO DAILY [facility] Last Admin: 07/04/17 10:17 Dose: 40 mg Polyethylene Glycol (Miralax) 17 gm PO BID [facility] Last Admin: 07/04/17 10:30 Dose: Not Given Zinc Sulfate (Zinc Sulfate 220 Mg Cap) 220 mg PO DAILY [facility] Last Admin: 07/04/17 10:17 Dose: 220 mg - Labs Labs: 07/04/17 08:00 07/04/17 08:00 PT 13.1 SECONDS (9.4-12.5) H 06/15/17 11:00 INR 1.19 (0.93-1.08) H 06/15/17 11:00 APTT 31.3 Seconds (25.1-36.5) 06/15/17 11:00 - Additional Findings Additional findings: Phys Exam: VS as below Const'l: +looks chronically ill; a&o x 4, nad Head/Neck: neck supple, no jvd, trachea midline, carotid midline, no cervical /head mass Eyes: javier, nonicteric sclera, eom intact ENT: auditory acuity grossly intact, throat not congested, no nasal deformity Cardio: rrr, no m/r/g, no carotid bruit, nml s1, s2 Pulm: +pt shows abdominal breathing; no accessory muscle use, equal nml breath sounds bilaterally, ctab Abd: s/nt/nd, nbs x 4 q, no palpable masses Derm: no rashes, no ulcers, no lesions Extr: +pt wearing podiatry boots b/l LE; Cellulitis in rle resolved; Neuro: cn II-XII grossly intact, ue and le 5/5 muscle strength bilaterally, no los ue, le bilaterally and core Assessment and Plan - Assessment and Plan (Free Text) Assessment: A/P: 67 F with a PMHx of asthma, arthritis, and vitamin C deficiency who presents with RLE ulcer/cellulitis and draining right lower extremity ulcer, along with UTI. Pt completed course of Vancomycin and Azobactam for cellulitis and UTI. Pt received chest x-ray for cough and SOB, which is negative for any acute process. Incentive spirometer given. Pt is pending placement in [facility] at this time. Acute Fever - Pt spiked a few fevers overnight, low grade. - Dr. Montero recommends CT Chest should fevers persist. - Pt needs to be oob and use incentive spirometry today RLE cellulitis/ulcer with culture positive for Proteus Mirabilis and beta hemolytic group b strep - Resolved - ABx with vanc completed - Continue tylenol prn fevers - Continue MV/Vitamin C and Zinc - Physical therapy recommends TED: waiting for pension papers from her sister - Podiatry has signed off Multipodus boot to be worn at all times as per podiatry Hypokalemia - Resolved - Kcl discontinued - No need for daily labs at this point Headache - Continue Fioricet PRN Shortness of breath with cough - Chest x-ray 06/29 negative - Incentive spirometry - pt advised to use everyday - Continue duoneb PRN - Pt is still using nasal cannula prn - Continue Robitussin, Mucinex UTI - Resolved - ABx with Azactam completed Anemia likely 2/2 iron deficiency anemia - Continue Feosol - Monitor H/H Vitamin C deficiency - Continue MV and Vitamin C GI/DVT ppx - Heparin - Protonix <Amadeo Crookdaniel - Last Filed: 07/04/17 19:05> Objective - Vital Signs/Intake and Output Vital Signs (last 24 hours): Temp Pulse Resp BP Pulse Ox 99.1 F 68 18 137/70 97 07/04/17 15:54 07/04/17 18:23 07/04/17 15:54 07/04/17 18:23 07/04/17 15:54 - Medications Medications: Current Medications Acetaminophen (Tylenol 325mg Tab) 650 mg PO Q4 PRN PRN Reason: Fever >100.4 F Last Admin: 07/04/17 00:47 Dose: 650 mg Acetaminophen/Butalbital/Caffeine (Fioricet) 1 tab PO Q4H PRN PRN Reason: Headache Last Admin: 06/29/17 17:42 Dose: 1 tab Albuterol/Ipratropium (Duoneb 3 Mg/0.5 Mg (3 Ml) Ud) 3 ml IH [id number] PRN PRN Reason: Shortness of Breath Last Admin: 07/04/17 07:48 Dose: 3 ml Ascorbic Acid (Vitamin C 500 Mg Tab) 500 mg PO BID [facility] Last Admin: 07/04/17 18:23 Dose: 500 mg Benzonatate (Tessalon Perles) 100 mg PO TID [facility] Last Admin: 07/04/17 18:24 Dose: 100 mg Docusate Sodium (Colace) 100 mg PO DAILY [facility] Last Admin: 07/04/17 10:17 Dose: 100 mg Ferrous Sulfate (Feosol) 324 mg PO TID [facility] Last Admin: 07/04/17 18:24 Dose: 324 mg Guaifenesin (Robitussin) 100 mg PO Q4H PRN PRN Reason: Cough Last Admin: 07/04/17 06:14 Dose: 100 mg Guaifenesin/Dextromethorphan (Mucinex-Dm 600-30 Mg) 1 tab PO BID [facility] Last Admin: 07/04/17 18:24 Dose: 1 tab Heparin Sodium (Porcine) (Heparin) 5,000 units SC Q12 [facility] PRN Reason: Protocol Last Admin: 07/04/17 10:17 Dose: 5,000 units Home Med (Home Med) 1 unit PO DAILY [facility] Last Admin: 07/04/17 10:19 Dose: Not Given Metoprolol Tartrate (Lopressor) 25 mg PO TID [facility] Last Admin: 07/04/17 18:23 Dose: 25 mg Multivitamins/Minerals (Therapeutic-M Tab) 1 tab PO 0800 [facility] Last Admin: 07/04/17 09:02 Dose: 1 tab Nystatin (Nystop Topical Powder) 1 gm TOP DAILY [facility] Last Admin: 07/04/17 10:19 Dose: 1 applic Pantoprazole Sodium (Protonix Ec Tab) 40 mg PO DAILY [facility] Last Admin: 07/04/17 10:17 Dose: 40 mg Polyethylene Glycol (Miralax) 17 gm PO BID [facility] Last Admin: 07/04/17 18:24 Dose: Not Given Zinc Sulfate (Zinc Sulfate 220 Mg Cap) 220 mg PO DAILY [facility] Last Admin: 07/04/17 10:17 Dose: 220 mg - Labs Labs: 07/04/17 08:00 07/04/17 08:00 PT 13.1 SECONDS (9.4-12.5) H 06/15/17 11:00 INR 1.19 (0.93-1.08) H 06/15/17 11:00 APTT 31.3 Seconds (25.1-36.5) 06/15/17 11:00 Attending/Attestation - Attestation I have personally seen and examined this patient.: Yes I have fully participated in the care of the patient.: Yes I have reviewed all pertinent clinical information, including history, physical exam and plan: Yes Notes (Text): 07/04/17 19:03 Patient seen and examined independently. She does not feel very good today. Vitals, labs and Xray reviewed. High Procalcitonin noted, plan to obtain CT chest. ID follow up ongoing. Agree with the remainder plan of care as outlined by the resident.
--- NOTE | 2017-07-04 17:17 | CP.PCM.PN ---
Subjective - Date & Time of Evaluation Date of Evaluation: 07/04/17 Time of Evaluation: 16:30 - Subjective Subjective: Infectious Disease Follow Up: July 04, 2017 67 yo female presenting with 3 weeks of RLE ulceration, swelling and leaking from the wound as well as multiple falls in the past 3 weeks. The patient has an extensive medical history of asthma, arthritis, vitamin C deficiency, and possible thyroid disease. Had headaches and episodes of SOB overnight. draining RLE ulceration... cellulitis improved/resolved. Multiple chronic medical issues. Still with persistent dry cough. Otherwise stable. Mild erythema and excoriation of the folds in the abdomen and under the breasts. Fevers up to 100.8 F overnight. Patient making few complaints. The patient has remained in bed. Nursing and aides had noted that the patient's friend "Chris " has encouraged the patient to stay in bed in order to get to a snf or subacute facility. "Chris" was the person the patient was living with prior to coming to [facility]. Also noted that the patient has had a hacking cough the last couple of days. Objective - Vital Signs/Intake and Output Vital Signs (last 24 hours): Temp Pulse Resp BP Pulse Ox 99.1 F 68 18 137/70 97 07/04/17 15:54 07/04/17 15:54 07/04/17 15:54 07/04/17 15:54 07/04/17 15:54 Intake and Output: 07/04/17 07/04/17 06:59 18:59 Intake Total 2120 Output Total 600 Balance 1520 - Medications Medications: Current Medications Acetaminophen (Tylenol 325mg Tab) 650 mg PO Q4 PRN PRN Reason: Fever >100.4 F Last Admin: 07/04/17 00:47 Dose: 650 mg Acetaminophen/Butalbital/Caffeine (Fioricet) 1 tab PO Q4H PRN PRN Reason: Headache Last Admin: 06/29/17 17:42 Dose: 1 tab Albuterol/Ipratropium (Duoneb 3 Mg/0.5 Mg (3 Ml) Ud) 3 ml IH [id number] PRN PRN Reason: Shortness of Breath Last Admin: 07/04/17 07:48 Dose: 3 ml Ascorbic Acid (Vitamin C 500 Mg Tab) 500 mg PO BID [facility] Last Admin: 12/03/17 10:18 Dose: 500 mg Benzonatate (Tessalon Perles) 100 mg PO TID [facility] Last Admin: 07/04/17 15:09 Dose: 100 mg Docusate Sodium (Colace) 100 mg PO DAILY [facility] Last Admin: 07/04/17 10:17 Dose: 100 mg Ferrous Sulfate (Feosol) 324 mg PO TID [facility] Last Admin: 07/04/17 15:09 Dose: 324 mg Guaifenesin (Robitussin) 100 mg PO Q4H PRN PRN Reason: Cough Last Admin: 07/04/17 06:14 Dose: 100 mg Guaifenesin/Dextromethorphan (Mucinex-Dm 600-30 Mg) 1 tab PO BID [facility] Last Admin: 07/04/17 10:17 Dose: 1 tab Heparin Sodium (Porcine) (Heparin) 5,000 units SC Q12 [facility] PRN Reason: Protocol Last Admin: 07/04/17 10:17 Dose: 5,000 units Home Med (Home Med) 1 unit PO DAILY [facility] Last Admin: 07/04/17 10:19 Dose: Not Given Metoprolol Tartrate (Lopressor) 25 mg PO TID [facility] Last Admin: 07/04/17 15:09 Dose: 25 mg Multivitamins/Minerals (Therapeutic-M Tab) 1 tab PO 0800 [facility] Last Admin: 07/04/17 09:02 Dose: 1 tab Nystatin (Nystop Topical Powder) 1 gm TOP DAILY [facility] Last Admin: 07/04/17 10:19 Dose: 1 applic Pantoprazole Sodium (Protonix Ec Tab) 40 mg PO DAILY [facility] Last Admin: 07/04/17 10:17 Dose: 40 mg Polyethylene Glycol (Miralax) 17 gm PO BID [facility] Last Admin: 07/04/17 10:30 Dose: Not Given Zinc Sulfate (Zinc Sulfate 220 Mg Cap) 220 mg PO DAILY [facility] Last Admin: 07/04/17 10:17 Dose: 220 mg - Labs Labs: 07/04/17 08:00 07/04/17 08:00 PT 13.1 SECONDS (9.4-12.5) H 06/15/17 11:00 INR 1.19 (0.93-1.08) H 06/15/17 11:00 APTT 31.3 Seconds (25.1-36.5) 06/15/17 11:00 - Constitutional Appears: Non-toxic, No Acute Distress, Chronically Ill - Head Exam Head Exam: ATRAUMATIC, NORMOCEPHALIC - Eye Exam Eye Exam: EOMI, PERRL Pupil Exam: NORMAL ACCOMODATION, PERRL - ENT Exam ENT Exam: Mucous Membranes Moist, Normal External Ear Exam, TM's Normal Bilaterally - Neck Exam Neck Exam: Full ROM, Normal Inspection - Respiratory Exam Respiratory Exam: Clear to Ausculation Bilateral, NORMAL BREATHING PATTERN. absent: Rales, Rhonchi, Wheezes - Cardiovascular Exam Cardiovascular Exam: REGULAR RHYTHM, RRR, +S1, +S2 - GI/Abdominal Exam GI & Abdominal Exam: Soft, Normal Bowel Sounds. absent: Distended, Tenderness - Extremities Exam Extremities Exam: Joint Swelling, Pedal Edema Additional comments: RLE mild swelling R ankle with ulcer - improving b/l chronic venous changes tinea and chronic venous stasis changes. Signs of arthritis in joints of the hands. - Neurological Exam Neurological Exam: Alert, Awake, CN II-XII Intact, Oriented x3 - Psychiatric Exam Psychiatric exam: Normal Affect, Normal Mood - Skin Skin Exam: Normal Color Additional comments: Right lower leg superficial ulceration appears to be mostly healed. Cellultitis of right lower leg resolved. Assessment and Plan - Assessment and Plan (Free Text) Assessment: 67 yo female with multiple medical issues with PCN allergy diagnosed as a teenager verified by an Retail Presentation Specialist. The patient with leukocytosis. Await cultures especially urine cultures. Diabetes and HTN history? Local wound care. Elevated ESR and C-reactive protein. Completed Vancomycin and Aztreonam for antibiotic coverage. UTI with E. coli sensitive to Azactam. Was on Vancomycin for cellulitis IV. For UTI for 5-7 days treatment... completed. Supportive care. Cellulitis appears improved. No new issues. Social issues currently. If the patient has fevers again tonight, obtain CT scan of the chest. Thank you for allowing me to participate in the care of the patient, we will follow with you.
[2017-07-05] MEDS ORDERED: Iohexol 350 MG/100 ML VIAL ONE (07:37)
[2017-07-05 07:46] LABS: BASO # 0.06 K/mm3 (0.0-2.0); BASO % 0.8 % (0.0-3.0); EOS # 0.9 (0.0-0.7); EOS % 12.2 % (1.5-5.0); GRAN # 3.77 (1.4-6.5); GRAN % 49.9 % (50.0-68.0); HEMOGLOBIN 9.2 g/dL (12.0-16.0); LYMPH # 1.6 (1.2-3.4); LYMPH % 20.8 % (22.0-35.0); MEAN CELL VOLUME 82.9 fl (80.0-105.0); MEAN CORPUSCULAR HEMOGLOBIN 23.8 pg (25.0-35.0); MEAN CORPUSCULAR HGB CONC 28.8 g/dl (31.0-37.0); MEAN PLATELET VOLUME 8.3 fl (7.0-11.0); MONO # 1.2 (0.1-0.6); MONO % 16.3 % (1.0-6.0); RBC 3.86 10^6/uL (3.5-6.1); RED CELL DISTRIBUTION WIDTH 23.5 % (11.5-14.5); WHITE BLOOD COUNT 7.6 10^3/ul (4.5-11.0)
[2017-07-05 08:01] LABS: ALB/GLOB RATIO 0.8 (1.1-1.8); ALBUMIN 3.2 g/dL (3.0-4.8); ALT/SGPT 19 U/L (7-56); AST/SGOT 42 U/L (14-36); BLOOD UREA NITROGEN 14 mg/dL (7-21); GFR AFRICAN-AMERICAN > 60; GFR NON-AFRICAN AMERICAN > 60
--- NOTE | 2017-07-05 09:02 | CT ---
PROCEDURE: CT Chest with contrast HISTORY: CXR findings COMPARISON: None. TECHNIQUE: Contiguous axial images were obtained through the chest with intravenous contrast enhancement. Sagittal and coronal reconstructions were performed. 100 cc of Omni 350 Radiation dose (DLP): 623 mGy-cm. This CT exam was performed using one or more of the following dose reduction techniques: Automated exposure control, adjustment of the mA and/or kV according to patient size, and/or use of iterative reconstruction technique. FINDINGS: LUNGS: Mild vascular congestion. No focal infiltrate or evidence of interstitial disease MEDIASTINUM: Unremarkable thoracic aorta. No aneurysm. Moderate cardiomegaly Main pulmonary artery unremarkable. No vascular congestion. No lymphadenopathy. PLEURA: Small bilateral pleural effusions BONES: No fracture. No destructive lesion. UPPER ABDOMEN: Grossly unremarkable. OTHER FINDINGS: Mildly enlarged axillary lymph nodes are seen bilaterally. IMPRESSION: Mildly enlarged axillary lymph nodes. Moderate cardiomegaly and mild vascular congestion
[2017-07-05] MEDS: POLYETHYLENE GLYCOL 3350 17 GM/Dose PACKET PO SCH ×2 (10:11→17:13)
[2017-07-05] MEDS: Pantoprazole 40 mg EC Tab PO SCH (10:11)
[2017-07-05] MEDS: guaiFENesin-DM 600-30 mg ER Tab PO SCH ×2 (10:11→17:17)
[2017-07-05] MEDS: Multivitamin With Minerals Tab PO SCH (10:11)
[2017-07-05] MEDS: Nystatin 100,000 Units/gm Topical Pow(15 gm) TOP SCH (10:12)
[2017-07-05] MEDS: VITAMIN C 500MG PO SCH (10:13)
--- NOTE | 2017-07-05 14:56 | CP.PCM.PN ---
<MichaelFort Madison - Last Filed: 07/05/17 15:50> Subjective - Date & Time of Evaluation Date of Evaluation: 07/05/17 Time of Evaluation: 09:53 - Subjective Subjective: Patient seen and examined at bedside. Per nursing no acute events occurred overnight. The patient still reports a cough that is sometimes productive with green sputum. The patient denies any chest pain, abdominal pain, lightheadedness , dizziness, changes in vision, syncopal episodes or any other complaints. Objective - Vital Signs/Intake and Output Vital Signs (last 24 hours): Temp Pulse Resp BP Pulse Ox 98.4 F 77 20 140/73 97 07/05/17 07:30 07/05/17 14:06 07/05/17 07:30 07/05/17 14:06 07/05/17 07:30 Intake and Output: 07/05/17 07/05/17 06:59 18:59 Output Total 400 Balance -400 - Medications Medications: Current Medications Acetaminophen (Tylenol 325mg Tab) 650 mg PO Q4 PRN PRN Reason: Fever >100.4 F Last Admin: 07/04/17 00:47 Dose: 650 mg Acetaminophen/Butalbital/Caffeine (Fioricet) 1 tab PO Q4H PRN PRN Reason: Headache Last Admin: 06/29/17 17:42 Dose: 1 tab Albuterol/Ipratropium (Duoneb 3 Mg/0.5 Mg (3 Ml) Ud) 3 ml IH [id number] PRN PRN Reason: Shortness of Breath Last Admin: 07/04/17 07:48 Dose: 3 ml Ascorbic Acid (Vitamin C 500 Mg Tab) 500 mg PO BID [facility] Last Admin: 07/05/17 10:11 Dose: 500 mg Benzonatate (Tessalon Perles) 100 mg PO TID [facility] Last Admin: 07/05/17 14:06 Dose: 100 mg Docusate Sodium (Colace) 100 mg PO DAILY [facility] Last Admin: 07/05/17 10:11 Dose: 100 mg Ferrous Sulfate (Feosol) 324 mg PO TID [facility] Last Admin: 07/05/17 14:15 Dose: Not Given Guaifenesin (Robitussin) 100 mg PO Q4H PRN PRN Reason: Cough Last Admin: 07/04/17 06:14 Dose: 100 mg Guaifenesin/Dextromethorphan (Mucinex-Dm 600-30 Mg) 1 tab PO BID [facility] Last Admin: 07/05/17 10:11 Dose: 1 tab Heparin Sodium (Porcine) (Heparin) 5,000 units SC Q12 [facility] PRN Reason: Protocol Last Admin: 07/05/17 10:11 Dose: 5,000 units Home Med (Home Med) 1 unit PO DAILY [facility] Last Admin: 07/05/17 10:13 Dose: Not Given Metoprolol Tartrate (Lopressor) 25 mg PO TID [facility] Last Admin: 07/05/17 14:06 Dose: 25 mg Multivitamins/Minerals (Therapeutic-M Tab) 1 tab PO 0800 [facility] Last Admin: 07/05/17 10:11 Dose: 1 tab Nystatin (Nystop Topical Powder) 1 gm TOP DAILY [facility] Last Admin: 07/05/17 10:12 Dose: 1 applic Pantoprazole Sodium (Protonix Ec Tab) 40 mg PO DAILY [facility] Last Admin: 07/05/17 10:11 Dose: 40 mg Polyethylene Glycol (Miralax) 17 gm PO BID [facility] Last Admin: 07/05/17 10:11 Dose: 17 gm Zinc Sulfate (Zinc Sulfate 220 Mg Cap) 220 mg PO DAILY [facility] Last Admin: 07/05/17 10:11 Dose: 220 mg - Labs Labs: 07/05/17 07:30 07/05/17 07:30 PT 13.1 SECONDS (9.4-12.5) H 06/15/17 11:00 INR 1.19 (0.93-1.08) H 06/15/17 11:00 APTT 31.3 Seconds (25.1-36.5) 06/15/17 11:00 - Head Exam Head Exam: ATRAUMATIC, NORMAL INSPECTION, NORMOCEPHALIC - Eye Exam Eye Exam: EOMI, Normal appearance, PERRL. absent: Periorbital tenderness Pupil Exam: NORMAL ACCOMODATION, PERRL - ENT Exam ENT Exam: Mucous Membranes Moist, Normal Oropharynx - Neck Exam Neck Exam: Normal Inspection - Respiratory Exam Respiratory Exam: Clear to Ausculation Bilateral, NORMAL BREATHING PATTERN. absent: Rales, Rhonchi - Cardiovascular Exam Cardiovascular Exam: REGULAR RHYTHM, +S1, +S2. absent: Gallop, Rubs - GI/Abdominal Exam GI & Abdominal Exam: Soft, Normal Bowel Sounds. absent: Hyperactive Bowel Sounds - Extremities Exam Extremities Exam: Tenderness - Back Exam Back Exam: NORMAL INSPECTION. absent: CVA tenderness (R), paraspinal tenderness - Neurological Exam Neurological Exam: Alert, Awake - Psychiatric Exam Psychiatric exam: Normal Affect, Normal Mood - Skin Skin Exam: Dry, Intact. absent: Erythema, Rash Assessment and Plan - Assessment and Plan (Free Text) Assessment: 67 F with a PMHx of asthma, arthritis, and vitamin C deficiency who presents with RLE ulcer/cellulitis and draining right lower extremity ulcer, along with UTI. Pt completed course of Vancomycin and Azobactam for cellulitis and UTI. Pt received chest x-ray for cough and SOB, which is negative for any acute process. Incentive spirometer given. Pt is pending placement in [facility] at this time. Patient had a T max of 100.8 over the weekend. Chest Ct showed mild vascular congestion. Plan: 1. RLE cellulitis/ulcer with culture positive for Proteus Mirabilis and beta hemolytic group b strep -Resolved - continue tylenol prn fevers - continue MV/Vitamin C and Zinc - Physical therapy recommends [facility] -Podiatry consulted, rec's appreciated. -Patient pending placement. Sister had a meeting with Social work today. On 07/09 or 07/10 of next week she is expected to go and get the remainder of the paperwork to obtain the Medicare number. We are continuing to work towards getting placement or sending home with services pending Insurance. Will continue to follow. 2. Hypokalemia - Resolved. -Kcl discontinued. 3. Headache - continue fioricet PRN 4. Shortness of breath - Chest x-ray clear - Cotinue to encourage Incentive spirometry - continue duoneb PRN - O2 Sat >90% on room air. Patient sating at 94 % on room air. -CXR ordered negative. - cont O2 NC PRN 5. Non productive cough -Repeat CXR was negative to active pulmonary disease -Chest CT showed some mild enlarged axillary LN, mild cardiomegaly and mild vascular congestion. -Continue Robutissin. Mucinex DM added. Will continue to monitor closely. 6. UTI - Completed Azactam course 7. Anemia likely 2/2 iron deficiency anemia - Hg stable -Continue Feosol -trend H/H 8. vitamin C deficiency - continue MV and Vitamin C ordered 9. Depression -Psych consulted. Will f/u with rec's. GI/DVT ppx - Heparin - Protonix <Clemente Cabrera - Last Filed: 07/06/17 18:48> Objective - Vital Signs/Intake and Output Vital Signs (last 24 hours): Temp Pulse Resp BP Pulse Ox 98.5 F 66 20 120/60 97 07/06/17 16:00 07/06/17 17:28 07/06/17 16:00 07/06/17 17:28 07/06/17 16:00 Intake and Output: 07/06/17 07/06/17 06:59 18:59 Intake Total 600 Balance 600 - Medications Medications: Current Medications Acetaminophen (Tylenol 325mg Tab) 650 mg PO Q4 PRN PRN Reason: Fever >100.4 F Last Admin: 07/06/17 12:25 Dose: 650 mg Acetaminophen/Butalbital/Caffeine (Fioricet) 1 tab PO Q4H PRN PRN Reason: Headache Last Admin: 06/29/17 17:42 Dose: 1 tab Albuterol/Ipratropium (Duoneb 3 Mg/0.5 Mg (3 Ml) Ud) 3 ml IH [id number] PRN PRN Reason: Shortness of Breath Last Admin: 07/04/17 07:48 Dose: 3 ml Benzonatate (Tessalon Perles) 100 mg PO TID [facility] Last Admin: 07/06/17 17:28 Dose: 100 mg Docusate Sodium (Colace) 100 mg PO DAILY [facility] Last Admin: 07/06/17 12:17 Dose: Not Given Ferrous Sulfate (Feosol) 324 mg PO TID [facility] Last Admin: 07/06/17 17:28 Dose: 324 mg Guaifenesin (Robitussin) 100 mg PO Q4H PRN PRN Reason: Cough Last Admin: 07/04/17 06:14 Dose: 100 mg Guaifenesin/Dextromethorphan (Mucinex-Dm 600-30 Mg) 1 tab PO BID [facility] Last Admin: 07/06/17 17:28 Dose: 1 tab Heparin Sodium (Porcine) (Heparin) 5,000 units SC Q12 [facility] PRN Reason: Protocol Last Admin: 07/06/17 12:18 Dose: 5,000 units Home Med (Home Med) 1 unit PO DAILY [facility] Last Admin: 07/06/17 12:18 Dose: 1 unit Metoprolol Tartrate (Lopressor) 25 mg PO TID [facility] Last Admin: 07/06/17 17:28 Dose: 25 mg Multivitamins/Minerals (Therapeutic-M Tab) 1 tab PO 0800 [facility] Last Admin: 07/06/17 10:06 Dose: Not Given Nystatin (Nystop Topical Powder) 1 gm TOP DAILY [facility] Last Admin: 07/06/17 12:20 Dose: 1 applic Pantoprazole Sodium (Protonix Ec Tab) 40 mg PO DAILY [facility] Last Admin: 07/06/17 12:24 Dose: 40 mg Polyethylene Glycol (Miralax) 17 gm PO BID [facility] Last Admin: 07/06/17 18:15 Dose: Not Given Zinc Sulfate (Zinc Sulfate 220 Mg Cap) 220 mg PO DAILY [facility] Last Admin: 07/06/17 12:26 Dose: 220 mg - Labs Labs: 07/06/17 08:15 07/06/17 08:15 PT 13.1 SECONDS (9.4-12.5) H 06/15/17 11:00 INR 1.19 (0.93-1.08) H 06/15/17 11:00 APTT 31.3 Seconds (25.1-36.5) 06/15/17 11:00 Attending/Attestation - Attestation I have personally seen and examined this patient.: Yes I have fully participated in the care of the patient.: Yes I have reviewed all pertinent clinical information, including history, physical exam and plan: Yes Notes (Text): I have seen and examined the patient with the resident. Agree with the above note with the following additions/ exceptions: Briefly this is 67 year old female with history of asthma, iron deficiency anemia, arthritis, obesity who was admitted for evaluation of bilateral lymphedema and RLE cellulitis with draining ulcer of right ankle. Cellulitis has resolved. Echo revealed normal LVEF however diastolic function was not fully assessed as it was technically difficult study. Duplex negative for DVT. Multipodus boots on. Wound cultures reveal proteus and beta hemolytic group B. She also had EColi UTI. Patient has completed vancomycin and azactam. PT recommended TED. Discussed with CM in detail. Awaiting placement. Continue feosol and miralax. Continue vitamin C, MVI and zinc to promote wound healing. Continue nystatin powder for skin folds in bilateral lower extremities and also underneath the breast. Complains of mild cough. Encourage to use incentive spirometry. CT chest reviewed. She has been afebrile for the past 24 hours. Patient doesn't want to get OOB despite encouragement. Psych consult pending for possible depression. Upon discharge patient will follow up [place] [facility] [place] Clemente Cabrera
--- NOTE | 2017-07-05 18:19 | CP.PCM.PN ---
Subjective - Date & Time of Evaluation Date of Evaluation: 07/05/17 Time of Evaluation: 17:00 - Subjective Subjective: Infectious Disease Follow Up: July 05, 2017 67 yo female presenting with 3 weeks of RLE ulceration, swelling and leaking from the wound as well as multiple falls in the past 3 weeks. The patient has an extensive medical history of asthma, arthritis, vitamin C deficiency, and possible thyroid disease. Draining RLE ulceration... cellulitis improved/resolved. Multiple chronic medical issues. Still with persistent dry cough. Otherwise stable. Mild erythema and excoriation of the folds in the abdomen and under the breasts. Fevers up to 100.8 F two nights ago. Patient making few complaints. The patient has remained in bed. Nursing and aides had noted that the patient's friend "Chris" has encouraged the patient to stay in bed in order to get to a [place] facility or subacute facility. "Chris" was the person the patient was living with prior to coming to [facility]. Also noted that the patient has had a hacking cough the last couple of days. Afebrile the past [address] scan of chest done. CT shows mild vascular congestion and no infiltrates. Objective - Vital Signs/Intake and Output Vital Signs (last 24 hours): Temp Pulse Resp BP Pulse Ox 98.4 F 77 20 140/73 97 07/05/17 07:30 07/05/17 14:06 07/05/17 07:30 07/05/17 14:06 07/05/17 07:30 Intake and Output: 07/05/17 07/05/17 06:59 18:59 Intake Total 480 Output Total 400 Balance -400 480 - Medications Medications: Current Medications Acetaminophen (Tylenol 325mg Tab) 650 mg PO Q4 PRN PRN Reason: Fever >100.4 F Last Admin: 07/04/17 00:47 Dose: 650 mg Acetaminophen/Butalbital/Caffeine (Fioricet) 1 tab PO Q4H PRN PRN Reason: Headache Last Admin: 06/29/17 17:42 Dose: 1 tab Albuterol/Ipratropium (Duoneb 3 Mg/0.5 Mg (3 Ml) Ud) 3 ml IH [id number] PRN PRN Reason: Shortness of Breath Last Admin: 07/04/17 07:48 Dose: 3 ml Ascorbic Acid (Vitamin C 500 Mg Tab) 500 mg PO BID [facility] Last Admin: 07/05/17 17:12 Dose: 500 mg Benzonatate (Tessalon Perles) 100 mg PO TID [facility] Last Admin: 07/05/17 17:12 Dose: 100 mg Docusate Sodium (Colace) 100 mg PO DAILY [facility] Last Admin: 07/05/17 10:11 Dose: 100 mg Ferrous Sulfate (Feosol) 324 mg PO TID [facility] Last Admin: 07/05/17 17:12 Dose: 324 mg Guaifenesin (Robitussin) 100 mg PO Q4H PRN PRN Reason: Cough Last Admin: 07/04/17 06:14 Dose: 100 mg Guaifenesin/Dextromethorphan (Mucinex-Dm 600-30 Mg) 1 tab PO BID [facility] Last Admin: 07/05/17 17:17 Dose: 1 tab Heparin Sodium (Porcine) (Heparin) 5,000 units SC Q12 [facility] PRN Reason: Protocol Last Admin: 07/05/17 10:11 Dose: 5,000 units Home Med (Home Med) 1 unit PO DAILY [facility] Last Admin: 07/05/17 10:13 Dose: Not Given Metoprolol Tartrate (Lopressor) 25 mg PO TID [facility] Last Admin: 07/05/17 17:12 Dose: 25 mg Multivitamins/Minerals (Therapeutic-M Tab) 1 tab PO 0800 [facility] Last Admin: 07/05/17 10:11 Dose: 1 tab Nystatin (Nystop Topical Powder) 1 gm TOP DAILY [facility] Last Admin: 07/05/17 10:12 Dose: 1 applic Pantoprazole Sodium (Protonix Ec Tab) 40 mg PO DAILY [facility] Last Admin: 07/05/17 10:11 Dose: 40 mg Polyethylene Glycol (Miralax) 17 gm PO BID [facility] Last Admin: 07/05/17 17:13 Dose: Not Given Zinc Sulfate (Zinc Sulfate 220 Mg Cap) 220 mg PO DAILY [facility] Last Admin: 07/05/17 10:11 Dose: 220 mg - Labs Labs: 07/05/17 07:30 07/05/17 07:30 PT 13.1 SECONDS (9.4-12.5) H 06/15/17 11:00 INR 1.19 (0.93-1.08) H 06/15/17 11:00 APTT 31.3 Seconds (25.1-36.5) 06/15/17 11:00 - Constitutional Appears: Non-toxic, No Acute Distress, Chronically Ill - Head Exam Head Exam: ATRAUMATIC, NORMOCEPHALIC - Eye Exam Eye Exam: EOMI, PERRL Pupil Exam: NORMAL ACCOMODATION, PERRL - ENT Exam ENT Exam: Mucous Membranes Moist, Normal External Ear Exam, TM's Normal Bilaterally - Neck Exam Neck Exam: Full ROM, Normal Inspection - Respiratory Exam Respiratory Exam: Clear to Ausculation Bilateral, NORMAL BREATHING PATTERN. absent: Rales, Rhonchi, Wheezes Additional comments: poor inspiratory effort. - Cardiovascular Exam Cardiovascular Exam: REGULAR RHYTHM, RRR, +S1, +S2 - GI/Abdominal Exam GI & Abdominal Exam: Soft, Normal Bowel Sounds. absent: Distended, Tenderness - Extremities Exam Extremities Exam: Full ROM, Normal Inspection - Neurological Exam Neurological Exam: Alert, Awake, CN II-XII Intact, Oriented x3 - Psychiatric Exam Psychiatric exam: Normal Affect, Normal Mood - Skin Skin Exam: Intact, Normal Color Assessment and Plan - Assessment and Plan (Free Text) Assessment: 67 yo female with multiple medical issues with PCN allergy diagnosed as a teenager verified by an Nail Maker. The patient with leukocytosis. Await cultures especially urine cultures. Diabetes and HTN history? Local wound care. Elevated ESR and C-reactive protein. Completed Vancomycin and Aztreonam for antibiotic coverage. UTI with E. coli sensitive to Azactam. Was on Vancomycin for cellulitis IV. For UTI for 5-7 days treatment... completed. Supportive care. Cellulitis appears improved. No new issues. Social issues currently. CT scan of chest done. No infiltrates seen. Afebrile the past 24 hours. Mild congestion noted in CT with small pulmonary effusions. No leukocytosis. Slightly elevated procalcitonin (0.66) which is undefined without stronger evidence for pneumonia. Monitor off antibiotics at this time. Thank you for allowing me to participate in the care of the patient, we will follow with you.
[2017-07-06 08:34] LABS: BASO # 0.09 K/mm3 (0.0-2.0); BASO % 1.4 % (0.0-3.0); EOS % 14.9 % (1.5-5.0); GRAN # 3.14 (1.4-6.5); GRAN % 48.1 % (50.0-68.0); HEMOGLOBIN 9.4 g/dL (12.0-16.0); LYMPH # 1.4 (1.2-3.4); LYMPH % 21.2 % (22.0-35.0); MEAN CELL VOLUME 82.4 fl (80.0-105.0); MEAN CORPUSCULAR HEMOGLOBIN 23.9 pg (25.0-35.0); MEAN PLATELET VOLUME 8.6 fl (7.0-11.0); MONO # 0.9 (0.1-0.6); MONO % 14.4 % (1.0-6.0); RBC 3.93 10^6/uL (3.5-6.1); RED CELL DISTRIBUTION WIDTH 23.8 % (11.5-14.5); WHITE BLOOD COUNT 6.5 10^3/ul (4.5-11.0)
[2017-07-06 08:56] LABS: ALB/GLOB RATIO 0.8 (1.1-1.8); ALBUMIN 3.2 g/dL (3.0-4.8); ALT/SGPT 23 U/L (7-56); AST/SGOT 34 U/L (14-36); BLOOD UREA NITROGEN 13 mg/dL (7-21); CALCIUM 8.1 mg/dL (8.4-10.5); GFR AFRICAN-AMERICAN > 60; GFR NON-AFRICAN AMERICAN 55
[2017-07-06] MEDS: Multivitamin With Minerals Tab PO SCH (10:06)
--- NOTE | 2017-07-06 11:51 | CP.PCM.PN ---
Subjective - Date & Time of Evaluation Date of Evaluation: 07/06/17 Time of Evaluation: 11:00 - Subjective Subjective: Infectious Disease Follow Up: July 06, 2017 67 yo female presenting with 3 weeks of RLE ulceration, swelling and leaking from the wound as well as multiple falls in the past 3 weeks. The patient has an extensive medical history of asthma, arthritis, vitamin C deficiency, and possible thyroid disease. Draining RLE ulceration... cellulitis improved/resolved. Multiple chronic medical issues. Still with persistent dry cough. Otherwise stable. Mild erythema and excoriation of the folds in the abdomen and under the breasts. Fevers up to 100.8 F two nights ago. Patient making few complaints. The patient has remained in bed. Nursing and aides had noted that the patient's friend "Chris" has encouraged the patient to stay in bed in order to get to a skilled nursing or subacute facility. "Chris" was the person the patient was living with prior to coming to [facility]. Also noted that the patient has had a hacking cough the last couple of days. Afebrile the past [address] scan of chest done. CT shows mild vascular congestion and no infiltrates. Objective - Vital Signs/Intake and Output Vital Signs (last 24 hours): Temp Pulse Resp BP Pulse Ox 98.5 F 83 20 139/72 98 07/06/17 07:30 07/06/17 07:30 07/06/17 07:30 07/06/17 07:30 07/06/17 07:30 - Medications Medications: Current Medications Acetaminophen (Tylenol 325mg Tab) 650 mg PO Q4 PRN PRN Reason: Fever >100.4 F Last Admin: 07/04/17 00:47 Dose: 650 mg Acetaminophen/Butalbital/Caffeine (Fioricet) 1 tab PO Q4H PRN PRN Reason: Headache Last Admin: 06/29/17 17:42 Dose: 1 tab Albuterol/Ipratropium (Duoneb 3 Mg/0.5 Mg (3 Ml) Ud) 3 ml IH [id number] PRN PRN Reason: Shortness of Breath Last Admin: 07/04/17 07:48 Dose: 3 ml Ascorbic Acid (Vitamin C 500 Mg Tab) 500 mg PO BID [facility] Last Admin: 07/05/17 17:12 Dose: 500 mg Benzonatate (Tessalon Perles) 100 mg PO TID [facility] Last Admin: 07/05/17 17:12 Dose: 100 mg Docusate Sodium (Colace) 100 mg PO DAILY [facility] Last Admin: 07/05/17 10:11 Dose: 100 mg Ferrous Sulfate (Feosol) 324 mg PO TID [facility] Last Admin: 07/05/17 17:12 Dose: 324 mg Guaifenesin (Robitussin) 100 mg PO Q4H PRN PRN Reason: Cough Last Admin: 07/04/17 06:14 Dose: 100 mg Guaifenesin/Dextromethorphan (Mucinex-Dm 600-30 Mg) 1 tab PO BID [facility] Last Admin: 07/05/17 17:17 Dose: 1 tab Heparin Sodium (Porcine) (Heparin) 5,000 units SC Q12 [facility] PRN Reason: Protocol Last Admin: 07/05/17 21:21 Dose: 5,000 units Home Med (Home Med) 1 unit PO DAILY [facility] Last Admin: 07/05/17 10:13 Dose: Not Given Metoprolol Tartrate (Lopressor) 25 mg PO TID [facility] Last Admin: 07/05/17 17:12 Dose: 25 mg Multivitamins/Minerals (Therapeutic-M Tab) 1 tab PO 0800 [facility] Last Admin: 07/06/17 10:06 Dose: Not Given Nystatin (Nystop Topical Powder) 1 gm TOP DAILY [facility] Last Admin: 07/05/17 10:12 Dose: 1 applic Pantoprazole Sodium (Protonix Ec Tab) 40 mg PO DAILY [facility] Last Admin: 07/05/17 10:11 Dose: 40 mg Polyethylene Glycol (Miralax) 17 gm PO BID [facility] Last Admin: 07/05/17 17:13 Dose: Not Given Zinc Sulfate (Zinc Sulfate 220 Mg Cap) 220 mg PO DAILY [facility] Last Admin: 07/05/17 10:11 Dose: 220 mg - Labs Labs: 07/06/17 08:15 07/06/17 08:15 PT 13.1 SECONDS (9.4-12.5) H 06/15/17 11:00 INR 1.19 (0.93-1.08) H 06/15/17 11:00 APTT 31.3 Seconds (25.1-36.5) 06/15/17 11:00 - Constitutional Appears: Non-toxic, No Acute Distress, Chronically Ill - Head Exam Head Exam: ATRAUMATIC, NORMOCEPHALIC - Eye Exam Eye Exam: EOMI, PERRL Pupil Exam: NORMAL ACCOMODATION, PERRL - ENT Exam ENT Exam: Mucous Membranes Moist, Normal External Ear Exam, TM's Normal Bilaterally - Neck Exam Neck Exam: Full ROM, Normal Inspection - Respiratory Exam Respiratory Exam: Clear to Ausculation Bilateral, NORMAL BREATHING PATTERN. absent: Rales, Rhonchi, Wheezes Additional comments: poor inspiratory effort. - Cardiovascular Exam Cardiovascular Exam: REGULAR RHYTHM, RRR, +S1, +S2 - GI/Abdominal Exam GI & Abdominal Exam: Distended, Soft, Normal Bowel Sounds. absent: Tenderness - Extremities Exam Extremities Exam: Full ROM, Normal Inspection - Neurological Exam Neurological Exam: Alert, Awake, CN II-XII Intact, Oriented x3 - Psychiatric Exam Psychiatric exam: Normal Affect, Normal Mood - Skin Skin Exam: Intact, Normal Color Assessment and Plan - Assessment and Plan (Free Text) Assessment: 67 yo female with multiple medical issues with PCN allergy diagnosed as a teenager verified by an Financial Cost Analyst. The patient with leukocytosis. Await cultures especially urine cultures. Diabetes and HTN history? Local wound care. Elevated ESR and C-reactive protein. Completed Vancomycin and Aztreonam for antibiotic coverage. UTI with E. coli sensitive to Azactam. Was on Vancomycin for cellulitis IV. For UTI for 5-7 days treatment... completed. Supportive care. Cellulitis appears improved. No new issues. Social issues currently. CT scan of chest done. No infiltrates seen. Afebrile the past 24 hours. Mild congestion noted in CT with small pulmonary effusions. No leukocytosis. Slightly elevated procalcitonin (0.66) which is undefined without stronger evidence for pneumonia. When encouraged, she is able to use the incentive spirometer without issues and ambulate with minimal difficulty. Continue to monitor off antibiotics at this time. Thank you for allowing me to participate in the care of the patient, we will follow with you.
[2017-07-06] MEDS: VITAMIN C 500MG PO SCH (12:18)
[2017-07-06] MEDS: POLYETHYLENE GLYCOL 3350 17 GM/Dose PACKET PO SCH ×2 (12:19→18:15)
[2017-07-06] MEDS: Nystatin 100,000 Units/gm Topical Pow(15 gm) TOP SCH (12:20)
[2017-07-06] MEDS: guaiFENesin-DM 600-30 mg ER Tab PO SCH ×2 (12:20→17:28)
[2017-07-06] MEDS: Pantoprazole 40 mg EC Tab PO SCH (12:24)
--- NOTE | 2017-07-06 14:56 | CP.PCM.PN ---
<MichaelKearan - Last Filed: 07/06/17 14:59> Subjective - Date & Time of Evaluation Date of Evaluation: 07/06/17 Time of Evaluation: 07:50 - Subjective Subjective: Patient seen and examined at bedside. Per nursing no acute events occurred overnight. The patient reports no improvement in the cough. The patient denies any chest pain, lightheadedness, dizziness, fevers, chills, nausea, vomiting, abdominal pain, headaches, numbness or tingling in the hands or feet, or any other complaints. Objective - Vital Signs/Intake and Output Vital Signs (last 24 hours): Temp Pulse Resp BP Pulse Ox 98.5 F 81 20 139/72 98 07/06/17 07:30 07/06/17 13:53 07/06/17 07:30 07/06/17 13:53 07/06/17 07:30 - Medications Medications: Current Medications Acetaminophen (Tylenol 325mg Tab) 650 mg PO Q4 PRN PRN Reason: Fever >100.4 F Last Admin: 07/06/17 12:25 Dose: 650 mg Acetaminophen/Butalbital/Caffeine (Fioricet) 1 tab PO Q4H PRN PRN Reason: Headache Last Admin: 06/29/17 17:42 Dose: 1 tab Albuterol/Ipratropium (Duoneb 3 Mg/0.5 Mg (3 Ml) Ud) 3 ml IH [id number] PRN PRN Reason: Shortness of Breath Last Admin: 07/04/17 07:48 Dose: 3 ml Ascorbic Acid (Vitamin C 500 Mg Tab) 500 mg PO BID [facility] Last Admin: 07/06/17 12:25 Dose: 500 mg Benzonatate (Tessalon Perles) 100 mg PO TID [facility] Last Admin: 07/06/17 13:53 Dose: 100 mg Docusate Sodium (Colace) 100 mg PO DAILY [facility] Last Admin: 07/06/17 12:17 Dose: Not Given Ferrous Sulfate (Feosol) 324 mg PO TID [facility] Last Admin: 07/06/17 13:52 Dose: 324 mg Guaifenesin (Robitussin) 100 mg PO Q4H PRN PRN Reason: Cough Last Admin: 07/04/17 06:14 Dose: 100 mg Guaifenesin/Dextromethorphan (Mucinex-Dm 600-30 Mg) 1 tab PO BID [facility] Last Admin: 07/06/17 12:20 Dose: 1 tab Heparin Sodium (Porcine) (Heparin) 5,000 units SC Q12 [facility] PRN Reason: Protocol Last Admin: 07/06/17 12:18 Dose: 5,000 units Home Med (Home Med) 1 unit PO DAILY [facility] Last Admin: 07/06/17 12:18 Dose: 1 unit Metoprolol Tartrate (Lopressor) 25 mg PO TID [facility] Last Admin: 07/06/17 13:53 Dose: 25 mg Multivitamins/Minerals (Therapeutic-M Tab) 1 tab PO 0800 [facility] Last Admin: 07/06/17 10:06 Dose: Not Given Nystatin (Nystop Topical Powder) 1 gm TOP DAILY [facility] Last Admin: 07/06/17 12:20 Dose: 1 applic Pantoprazole Sodium (Protonix Ec Tab) 40 mg PO DAILY [facility] Last Admin: 07/06/17 12:24 Dose: 40 mg Polyethylene Glycol (Miralax) 17 gm PO BID [facility] Last Admin: 07/06/17 12:19 Dose: Not Given Zinc Sulfate (Zinc Sulfate 220 Mg Cap) 220 mg PO DAILY [facility] Last Admin: 07/06/17 12:26 Dose: 220 mg - Labs Labs: 07/06/17 08:15 07/06/17 08:15 PT 13.1 SECONDS (9.4-12.5) H 06/15/17 11:00 INR 1.19 (0.93-1.08) H 06/15/17 11:00 APTT 31.3 Seconds (25.1-36.5) 06/15/17 11:00 - Head Exam Head Exam: ATRAUMATIC, NORMAL INSPECTION, NORMOCEPHALIC - Eye Exam Eye Exam: EOMI, Normal appearance, PERRL. absent: Periorbital tenderness Pupil Exam: NORMAL ACCOMODATION, PERRL. absent: Irregular, Unequal - ENT Exam ENT Exam: Mucous Membranes Moist, Normal Exam, Normal Oropharynx - Neck Exam Neck Exam: Normal Inspection. absent: Lymphadenopathy, Thyromegaly - Respiratory Exam Respiratory Exam: Clear to Ausculation Bilateral, NORMAL BREATHING PATTERN. absent: Chest Wall Tenderness, Prolonged Expiratory Phase, Respiratory Distress - Cardiovascular Exam Cardiovascular Exam: REGULAR RHYTHM, +S1, +S2 - GI/Abdominal Exam GI & Abdominal Exam: Soft, Normal Bowel Sounds. absent: Rigid, Hyperactive Bowel Sounds - Back Exam Back Exam: NORMAL INSPECTION. absent: CVA tenderness (L), CVA tenderness (R), paraspinal tenderness - Neurological Exam Neurological Exam: Abnormal Gait, Alert, Awake, Oriented x3 - Psychiatric Exam Psychiatric exam: Normal Affect, Normal Mood Assessment and Plan - Assessment and Plan (Free Text) Assessment: 67 F with a PMHx of asthma, arthritis, and vitamin C deficiency who presents with RLE ulcer/cellulitis and draining right lower extremity ulcer, along with UTI. Pt completed course of Vancomycin and Azobactam for cellulitis and UTI. Pt received chest x-ray for cough and SOB, which is negative for any acute process. Incentive spirometer given. Pt is pending placement in [facility] at this time. Patient had a T max of 100.8 over the weekend. Chest Ct showed mild vascular congestion. Plan: 1. RLE cellulitis/ulcer with culture positive for Proteus Mirabilis and beta hemolytic group b strep -Resolved - continue tylenol prn fevers - continue MV/Vitamin C and Zinc - Physical therapy recommends [facility] -Podiatry consulted, rec's appreciated. -Patient pending placement. Sister had a meeting with Social work today. On 07/09 or 07/10 of next week she is expected to go and get the remainder of the paperwork to obtain the Medicare number. We are continuing to work towards getting placement or sending home with services pending Insurance.Spoke with admissions at [facility] at [phone]. Social work was advised that pending a conversation with medicaid patient can be transferred there medicaid pending for LTC. Will continue to follow. 2. Hypokalemia - Resolved. -Kcl discontinued. 3. Headache - continue fioricet PRN 4. Shortness of breath - Chest x-ray clear - Cotinue to encourage Incentive spirometry - continue duoneb PRN - O2 Sat >90% on room air. Patient sating at 94 % on room air. -CXR ordered negative. - cont O2 NC PRN 5. Non productive cough -Repeat CXR was negative to active pulmonary disease -Chest CT showed some mild enlarged axillary LN, mild cardiomegaly and mild vascular congestion. -Continue Robutissin. Mucinex DM added. Will continue to monitor closely. 6. UTI - Completed Azactam course 7. Anemia likely 2/2 iron deficiency anemia - Hg stable -Continue Feosol -trend H/H 8. vitamin C deficiency - continue MV and Vitamin C ordered 9. Depression -Psych consulted. Will f/u with rec's. GI/DVT ppx - Heparin - Protonix <Clemente Cabrera - Last Filed: 07/06/17 18:50> Objective - Vital Signs/Intake and Output Vital Signs (last 24 hours): Temp Pulse Resp BP Pulse Ox 98.5 F 66 20 120/60 97 07/06/17 16:00 07/06/17 17:28 07/06/17 16:00 07/06/17 17:28 07/06/17 16:00 Intake and Output: 07/06/17 07/06/17 06:59 18:59 Intake Total 600 Balance 600 - Medications Medications: Current Medications Acetaminophen (Tylenol 325mg Tab) 650 mg PO Q4 PRN PRN Reason: Fever >100.4 F Last Admin: 07/06/17 12:25 Dose: 650 mg Acetaminophen/Butalbital/Caffeine (Fioricet) 1 tab PO Q4H PRN PRN Reason: Headache Last Admin: 06/29/17 17:42 Dose: 1 tab Albuterol/Ipratropium (Duoneb 3 Mg/0.5 Mg (3 Ml) Ud) 3 ml IH [id number] PRN PRN Reason: Shortness of Breath Last Admin: 07/04/17 07:48 Dose: 3 ml Benzonatate (Tessalon Perles) 100 mg PO TID [facility] Last Admin: 07/06/17 17:28 Dose: 100 mg Docusate Sodium (Colace) 100 mg PO DAILY [facility] Last Admin: 07/06/17 12:17 Dose: Not Given Ferrous Sulfate (Feosol) 324 mg PO TID [facility] Last Admin: 07/06/17 17:28 Dose: 324 mg Guaifenesin (Robitussin) 100 mg PO Q4H PRN PRN Reason: Cough Last Admin: 07/04/17 06:14 Dose: 100 mg Guaifenesin/Dextromethorphan (Mucinex-Dm 600-30 Mg) 1 tab PO BID [facility] Last Admin: 07/06/17 17:28 Dose: 1 tab Heparin Sodium (Porcine) (Heparin) 5,000 units SC Q12 [facility] PRN Reason: Protocol Last Admin: 07/06/17 12:18 Dose: 5,000 units Home Med (Home Med) 1 unit PO DAILY [facility] Last Admin: 07/06/17 12:18 Dose: 1 unit Metoprolol Tartrate (Lopressor) 25 mg PO TID [facility] Last Admin: 07/06/17 17:28 Dose: 25 mg Multivitamins/Minerals (Therapeutic-M Tab) 1 tab PO 0800 [facility] Last Admin: 07/06/17 10:06 Dose: Not Given Nystatin (Nystop Topical Powder) 1 gm TOP DAILY [facility] Last Admin: 07/06/17 12:20 Dose: 1 applic Pantoprazole Sodium (Protonix Ec Tab) 40 mg PO DAILY [facility] Last Admin: 07/06/17 12:24 Dose: 40 mg Polyethylene Glycol (Miralax) 17 gm PO BID [facility] Last Admin: 07/06/17 18:15 Dose: Not Given Zinc Sulfate (Zinc Sulfate 220 Mg Cap) 220 mg PO DAILY [facility] Last Admin: 07/06/17 12:26 Dose: 220 mg - Labs Labs: 07/06/17 08:15 07/06/17 08:15 PT 13.1 SECONDS (9.4-12.5) H 06/15/17 11:00 INR 1.19 (0.93-1.08) H 06/15/17 11:00 APTT 31.3 Seconds (25.1-36.5) 06/15/17 11:00 Attending/Attestation - Attestation I have personally seen and examined this patient.: Yes I have fully participated in the care of the patient.: Yes I have reviewed all pertinent clinical information, including history, physical exam and plan: Yes Notes (Text): I have seen and examined the patient with the resident. Agree with the above note with the following additions/ exceptions: Briefly this is 67 year old female with history of asthma, iron deficiency anemia, arthritis, obesity who was admitted for evaluation of bilateral lymphedema and RLE cellulitis with draining ulcer of right ankle. Cellulitis has resolved. Echo revealed normal LVEF. Wound cultures reveal proteus and beta hemolytic group B. She also had EColi UTI. Patient has completed vancomycin and azactam. PT recommended TED. Discussed with CM in detail. Awaiting placement. Complains of mild cough. Encourage to use incentive spirometry. CT chest reviewed. She has been afebrile for the past 48 hours. Patient doesn't want to get OOB despite encouragement. Psych consult pending for possible depression. Upon discharge patient will follow up in [facility] [place]. Dr Clemente Cabrera
--- NOTE | 2017-07-07 03:49 | CON ---
DATE: HISTORY OF PRESENT ILLNESS: The patient is a 67-year-old female, not known previous psychiatric history. The patient came to the hospital complaining of right ankle redness and fever for past 2 days. Psych consult was called for evaluation of possible depressive symptoms. The patient was seen and examined. The patient seems to be very sleepy. There is no meaningful conversation possible because the patient was falling asleep during the interview. The patient reported that she feels "kind of woozy". The patient refused to talk further. We will follow up on this patient tomorrow. VITAL SIGNS: Reviewed, stable with temperature of 98.5, pulse is 81, blood pressure 139/72, respirations 20, oxygen saturation is 98%. MEDICATIONS: Reviewed. The patient is on Tylenol, Fioricet, DuoNeb, vitamin C, benzonatate, Colace, , Mucinex, heparin. The patient also is on Lopressor, nystatin, Protonix, MiraLax, zinc sulfate. LABS: Reviewed. The patient has low hemoglobin and hematocrit of 9.4 and 32.4. Coagulation reviewed. Chemistry reviewed. is 0.66 which is elevated, most recent was on 07/03/2017. Urinalysis from 06/15/2017 showed urinary tract infection. Microbiology showed Proteus mirabilis in ankle. There is no growth in blood. This mortgage or loan underwriter discussed case with nursing staff. There is no agitation, no aggression. MENTAL STATUS EXAMINATION: Mental status examination is not possible because the patient is very sleepy and drowsy. IMPRESSION: This mortgage or loan underwriter would like to rule out mood disorder due to general medical condition. PLAN: Continue everything as it is right now, so this mortgage or loan underwriter will follow up on this patient tomorrow in order to have full picture about the patient presentation. Meanwhile, there is no aggression or agitation. The patient deemed to be not in danger to self or others. We will follow up and advise accordingly. Thank you very much for letting me to participate in the care of your patient. Megan Ashley MD
[2017-07-07 08:10] LABS: BASO # 0.06 K/mm3 (0.0-2.0); BASO % 0.9 % (0.0-3.0); EOS # 0.8 (0.0-0.7); EOS % 11.6 % (1.5-5.0); GRAN # 3.44 (1.4-6.5); HEMOGLOBIN 9.3 g/dL (12.0-16.0); LYMPH # 1.6 (1.2-3.4); LYMPH % 23.9 % (22.0-35.0); MEAN CELL VOLUME 82.6 fl (80.0-105.0); MEAN CORPUSCULAR HEMOGLOBIN 24.2 pg (25.0-35.0); MEAN CORPUSCULAR HGB CONC 29.3 g/dl (31.0-37.0); MEAN PLATELET VOLUME 8.6 fl (7.0-11.0); MONO # 0.9 (0.1-0.6); MONO % 12.6 % (1.0-6.0); RBC 3.84 10^6/uL (3.5-6.1); RED CELL DISTRIBUTION WIDTH 23.8 % (11.5-14.5); WHITE BLOOD COUNT 6.7 10^3/ul (4.5-11.0)
[2017-07-07 08:18] LABS: ALB/GLOB RATIO 0.8 (1.1-1.8); ALBUMIN 3.2 g/dL (3.0-4.8); ALT/SGPT 23 U/L (7-56); AST/SGOT 39 U/L (14-36); BLOOD UREA NITROGEN 15 mg/dL (7-21); GFR AFRICAN-AMERICAN > 60; GFR NON-AFRICAN AMERICAN 55
[2017-07-07] MEDS: Nystatin 100,000 Units/gm Topical Pow(15 gm) TOP SCH (09:43)
[2017-07-07] MEDS: guaiFENesin-DM 600-30 mg ER Tab PO SCH ×2 (09:44→17:34)
[2017-07-07] MEDS: Pantoprazole 40 mg EC Tab PO SCH (09:46)
[2017-07-07] MEDS: POLYETHYLENE GLYCOL 3350 17 GM/Dose PACKET PO SCH ×2 (09:47→17:40)
[2017-07-07] MEDS: VITAMIN C 500MG PO SCH (09:47)
[2017-07-07] MEDS: Multivitamin With Minerals Tab PO SCH (10:11)
--- NOTE | 2017-07-07 14:02 | CP.PCM.PN ---
<[place] - Last Filed: 07/07/17 16:04> Subjective - Date & Time of Evaluation Date of Evaluation: 07/07/17 Time of Evaluation: 08:02 - Subjective Subjective: Patient seen and examined at bedside. Per nursing no acute events occurred overnight. They did report one soft B.M. .The patient does report a cough today as well. She denies any fevers, chills, chest pain, lightheadedness, dizziness , changes in vision, syncopal episodes, nausea, vomiting, or any other complaints. Objective - Vital Signs/Intake and Output Vital Signs (last 24 hours): Temp Pulse Resp BP Pulse Ox 98.1 F 71 19 138/73 96 07/07/17 07:30 07/07/17 13:41 07/07/17 07:30 07/07/17 13:41 07/07/17 07:30 Intake and Output: 07/07/17 07/07/17 06:59 18:59 Intake Total 660 Balance 660 - Medications Medications: Current Medications Acetaminophen (Tylenol 325mg Tab) 650 mg PO Q4 PRN PRN Reason: Fever >100.4 F Last Admin: 07/06/17 12:25 Dose: 650 mg Acetaminophen/Butalbital/Caffeine (Fioricet) 1 tab PO Q4H PRN PRN Reason: Headache Last Admin: 06/29/17 17:42 Dose: 1 tab Albuterol/Ipratropium (Duoneb 3 Mg/0.5 Mg (3 Ml) Ud) 3 ml IH [id number] PRN PRN Reason: Shortness of Breath Last Admin: 07/04/17 07:48 Dose: 3 ml Benzonatate (Tessalon Perles) 100 mg PO TID [facility] Last Admin: 07/07/17 13:41 Dose: 100 mg Docusate Sodium (Colace) 100 mg PO DAILY [facility] Last Admin: 07/07/17 09:47 Dose: Not Given Ferrous Sulfate (Feosol) 324 mg PO TID [facility] Last Admin: 07/07/17 13:41 Dose: 324 mg Guaifenesin (Robitussin) 100 mg PO Q4H PRN PRN Reason: Cough Last Admin: 07/04/17 06:14 Dose: 100 mg Guaifenesin/Dextromethorphan (Mucinex-Dm 600-30 Mg) 1 tab PO BID [facility] Last Admin: 07/07/17 09:44 Dose: 1 tab Heparin Sodium (Porcine) (Heparin) 5,000 units SC Q12 [facility] PRN Reason: Protocol Last Admin: 07/07/17 09:48 Dose: 5,000 units Home Med (Home Med) 1 unit PO DAILY [facility] Last Admin: 07/07/17 09:47 Dose: 1 unit Metoprolol Tartrate (Lopressor) 25 mg PO TID [facility] Last Admin: 07/07/17 13:41 Dose: 25 mg Multi-Ingredient Cream (Hydrocerin Cream) 1 ea TOP DAILY [facility] Multivitamins/Minerals (Therapeutic-M Tab) 1 tab PO 0800 [facility] Last Admin: 07/07/17 10:11 Dose: 1 tab Nystatin (Nystop Topical Powder) 1 gm TOP DAILY [facility] Last Admin: 07/07/17 09:43 Dose: 1 applic Polyethylene Glycol (Miralax) 17 gm PO BID [facility] Last Admin: 07/07/17 09:47 Dose: Not Given Zinc Sulfate (Zinc Sulfate 220 Mg Cap) 220 mg PO DAILY [facility] Last Admin: 07/07/17 09:44 Dose: 220 mg - Labs Labs: 07/07/17 07:45 07/07/17 07:45 PT 13.1 SECONDS (9.4-12.5) H 06/15/17 11:00 INR 1.19 (0.93-1.08) H 06/15/17 11:00 APTT 31.3 Seconds (25.1-36.5) 06/15/17 11:00 - Head Exam Head Exam: ATRAUMATIC, NORMAL INSPECTION, NORMOCEPHALIC - Eye Exam Eye Exam: EOMI, Normal appearance, PERRL. absent: Periorbital tenderness Pupil Exam: NORMAL ACCOMODATION, PERRL. absent: Irregular, Unequal - ENT Exam ENT Exam: Mucous Membranes Moist, Normal Exam - Neck Exam Neck Exam: Normal Inspection. absent: Lymphadenopathy, Thyromegaly - Respiratory Exam Respiratory Exam: Clear to Ausculation Bilateral, NORMAL BREATHING PATTERN. absent: Chest Wall Tenderness, Prolonged Expiratory Phase, Respiratory Distress - Cardiovascular Exam Cardiovascular Exam: REGULAR RHYTHM, +S1, +S2 - GI/Abdominal Exam GI & Abdominal Exam: Soft, Normal Bowel Sounds. absent: Rigid, Hyperactive Bowel Sounds - Extremities Exam Extremities Exam: Joint Swelling. absent: Pedal Edema Additional comments: dry skin on the lower extremities bilaterally. - Back Exam Back Exam: NORMAL INSPECTION. absent: CVA tenderness (L), CVA tenderness (R), paraspinal tenderness - Neurological Exam Neurological Exam: Alert, Awake, Oriented x3 - Psychiatric Exam Psychiatric exam: Normal Affect, Normal Mood - Skin Skin Exam: Dry, Intact Assessment and Plan - Assessment and Plan (Free Text) Assessment: 67 F with a PMHx of asthma, arthritis, and vitamin C deficiency who presents with RLE ulcer/cellulitis and draining right lower extremity ulcer, along with UTI. Pt completed course of Vancomycin and Azobactam for cellulitis and UTI. Pt received chest x-ray for cough and SOB, which is negative for any acute process. Incentive spirometer given. Pt is pending placement in [facility] at this time. Patient had a T max of 100.8 over the weekend. Chest Ct showed mild vascular congestion. Patient was given eucerin cream for the dry legs on her skin. Patient is still pending placement at this time. Plan: 1. RLE cellulitis/ulcer with culture positive for Proteus Mirabilis and beta hemolytic group b strep -Resolved - continue tylenol prn fevers - continue MV/Vitamin C and Zinc - Physical therapy recommends [facility] -Podiatry consulted, rec's appreciated. -Patient pending placement. Sister had a meeting with Social work today. On 07/09 or 07/10 of next week she is expected to go and get the remainder of the paperwork to obtain the Medicare number. We are continuing to work towards getting placement or sending home with services pending Insurance.Spoke with admissions at [facility] at [phone]. Social work was advised that pending a conversation with medicaid patient can be transferred there medicaid pending for LTC. Will continue to follow. 2. Dry skin on the lower extremities bilaterally -Eucerin cream applied. Will continue to monitor. 3. Headache - continue fioricet PRN 4. Shortness of breath - Chest x-ray clear - Cotinue to encourage Incentive spirometry - continue duoneb PRN - O2 Sat >90% on room air. Patient sating at 94 % on room air. -CXR ordered negative. - cont O2 NC PRN 5. Non productive cough -Repeat CXR was negative to active pulmonary disease -Chest CT showed some mild enlarged axillary LN, mild cardiomegaly and mild vascular congestion. -Continue Robutissin. Mucinex DM added. Will continue to monitor closely. 6. UTI - Completed Azactam course -Repeat urine culture preliminary growing Gram negative rods. Will f/u with final results. 7. Anemia likely 2/2 iron deficiency anemia - Hg stable -Continue Feosol -trend H/H 8. vitamin C deficiency - continue MV and Vitamin C ordered 9. Depression -Psych consulted. Rec's appreciated. GI/DVT ppx - Heparin - Protonix <Clemente Cabrera B - Last Filed: 07/07/17 16:44> Objective - Vital Signs/Intake and Output Vital Signs (last 24 hours): Temp Pulse Resp BP Pulse Ox 98.1 F 68 19 138/73 98 07/07/17 07:30 07/07/17 16:07 07/07/17 07:30 07/07/17 13:41 07/07/17 16:07 Intake and Output: 07/07/17 07/07/17 06:59 18:59 Intake Total 900 Balance 900 - Medications Medications: Current Medications Acetaminophen (Tylenol 325mg Tab) 650 mg PO Q4 PRN PRN Reason: Fever >100.4 F Last Admin: 07/06/17 12:25 Dose: 650 mg Acetaminophen/Butalbital/Caffeine (Fioricet) 1 tab PO Q4H PRN PRN Reason: Headache Last Admin: 06/29/17 17:42 Dose: 1 tab Albuterol/Ipratropium (Duoneb 3 Mg/0.5 Mg (3 Ml) Ud) 3 ml IH [id number] PRN PRN Reason: Shortness of Breath Last Admin: 07/04/17 07:48 Dose: 3 ml Benzonatate (Tessalon Perles) 100 mg PO TID [facility] Last Admin: 07/07/17 13:41 Dose: 100 mg Docusate Sodium (Colace) 100 mg PO DAILY [facility] Last Admin: 07/07/17 09:47 Dose: Not Given Ferrous Sulfate (Feosol) 324 mg PO TID [facility] Last Admin: 07/07/17 13:41 Dose: 324 mg Guaifenesin (Robitussin) 100 mg PO Q4H PRN PRN Reason: Cough Last Admin: 07/04/17 06:14 Dose: 100 mg Guaifenesin/Dextromethorphan (Mucinex-Dm 600-30 Mg) 1 tab PO BID [facility] Last Admin: 07/07/17 09:44 Dose: 1 tab Heparin Sodium (Porcine) (Heparin) 5,000 units SC Q12 [facility] PRN Reason: Protocol Last Admin: 07/07/17 09:48 Dose: 5,000 units Home Med (Home Med) 1 unit PO DAILY [facility] Last Admin: 07/07/17 09:47 Dose: 1 unit Metoprolol Tartrate (Lopressor) 25 mg PO TID [facility] Last Admin: 07/07/17 13:41 Dose: 25 mg Multi-Ingredient Cream (Hydrocerin Cream) 1 ea TOP DAILY [facility] Last Admin: 07/07/17 14:11 Dose: 1 u Multivitamins/Minerals (Therapeutic-M Tab) 1 tab PO 0800 [facility] Last Admin: 07/07/17 10:11 Dose: 1 tab Nystatin (Nystop Topical Powder) 1 gm TOP DAILY [facility] Last Admin: 07/07/17 09:43 Dose: 1 applic Polyethylene Glycol (Miralax) 17 gm PO BID [facility] Last Admin: 07/07/17 09:47 Dose: Not Given Zinc Sulfate (Zinc Sulfate 220 Mg Cap) 220 mg PO DAILY [facility] Last Admin: 07/07/17 09:44 Dose: 220 mg - Labs Labs: 07/07/17 07:45 07/07/17 07:45 PT 13.1 SECONDS (9.4-12.5) H 06/15/17 11:00 INR 1.19 (0.93-1.08) H 06/15/17 11:00 APTT 31.3 Seconds (25.1-36.5) 06/15/17 11:00 Attending/Attestation - Attestation I have personally seen and examined this patient.: Yes I have fully participated in the care of the patient.: Yes I have reviewed all pertinent clinical information, including history, physical exam and plan: Yes Notes (Text): I have seen and examined the patient with the resident. Agree with the above note with the following additions/ exceptions: Briefly this is 67 year old female with history of asthma, iron deficiency anemia, arthritis, obesity who was admitted for evaluation of bilateral lymphedema and RLE cellulitis with draining ulcer of right ankle. Cellulitis has resolved. Echo revealed normal LVEF. Wound cultures reveal proteus and beta hemolytic group B. She also had EColi UTI. Patient has completed vancomycin and azactam. PT recommended TED. Discussed with CM in detail. Awaiting placement. Complains of persistent cough. Encourage to use incentive spirometry. CT chest reviewed. She has been afebrile for the past 3 days. Patient doesn't want to get OOB despite encouragement. Psych consult pending for possible depression. Had a detailed discussion with patients room mate Morales Sloan. Upon discharge patient will follow up in [facility] clinic. Dr Clemente Cabrera
[2017-07-07] MEDS: Hydrocerin(120 gm) TOP SCH (14:11)
--- NOTE | 2017-07-07 16:47 | CP.PCM.PN ---
Subjective - Date & Time of Evaluation Date of Evaluation: 07/07/17 Time of Evaluation: 16:15 - Subjective Subjective: Infectious Disease Follow Up: July 07, 2017 67 yo female presenting with 3 weeks of RLE ulceration, swelling and leaking from the wound as well as multiple falls in the past 3 weeks. The patient has an extensive medical history of asthma, arthritis, vitamin C deficiency, and possible thyroid disease. Draining RLE ulceration... cellulitis improved/resolved. Multiple chronic medical issues. Still with persistent dry cough. Otherwise stable. Mild erythema and excoriation of the folds in the abdomen and under the breasts. Fevers up to 100.8 F two nights ago. Patient making few complaints. The patient has remained in bed. Nursing and aides had noted that the patient's friend "Chris" has encouraged the patient to stay in bed in order to get to a fpc or subacute facility. "Chris" was the person the patient was living with prior to [place] [facility] Also noted that the patient has had a hacking cough the last couple of days. Afebrile the past [address] scan of chest done. CT shows mild vascular congestion and no infiltrates. No additional issues. Objective - Vital Signs/Intake and Output Vital Signs (last 24 hours): Temp Pulse Resp BP Pulse Ox 98.1 F 68 19 138/73 98 07/07/17 07:30 07/07/17 16:07 07/07/17 07:30 07/07/17 13:41 07/07/17 16:07 Intake and Output: 07/07/17 07/07/17 06:59 18:59 Intake Total 900 Balance 900 - Medications Medications: Current Medications Acetaminophen (Tylenol 325mg Tab) 650 mg PO Q4 PRN PRN Reason: Fever >100.4 F Last Admin: 07/06/17 12:25 Dose: 650 mg Acetaminophen/Butalbital/Caffeine (Fioricet) 1 tab PO Q4H PRN PRN Reason: Headache Last Admin: 06/29/17 17:42 Dose: 1 tab Albuterol/Ipratropium (Duoneb 3 Mg/0.5 Mg (3 Ml) Ud) 3 ml IH [id number] PRN PRN Reason: Shortness of Breath Last Admin: 07/04/17 07:48 Dose: 3 ml Benzonatate (Tessalon Perles) 100 mg PO TID [facility] Last Admin: 07/07/17 13:41 Dose: 100 mg Docusate Sodium (Colace) 100 mg PO DAILY [facility] Last Admin: 07/07/17 09:47 Dose: Not Given Ferrous Sulfate (Feosol) 324 mg PO TID [facility] Last Admin: 07/07/17 13:41 Dose: 324 mg Guaifenesin (Robitussin) 100 mg PO Q4H PRN PRN Reason: Cough Last Admin: 07/04/17 06:14 Dose: 100 mg Guaifenesin/Dextromethorphan (Mucinex-Dm 600-30 Mg) 1 tab PO BID [facility] Last Admin: 07/07/17 09:44 Dose: 1 tab Heparin Sodium (Porcine) (Heparin) 5,000 units SC Q12 [facility] PRN Reason: Protocol Last Admin: 07/07/17 09:48 Dose: 5,000 units Home Med (Home Med) 1 unit PO DAILY [facility] Last Admin: 07/07/17 09:47 Dose: 1 unit Metoprolol Tartrate (Lopressor) 25 mg PO TID [facility] Last Admin: 07/07/17 13:41 Dose: 25 mg Multi-Ingredient Cream (Hydrocerin Cream) 1 ea TOP DAILY [facility] Last Admin: 07/07/17 14:11 Dose: 1 u Multivitamins/Minerals (Therapeutic-M Tab) 1 tab PO 0800 [facility] Last Admin: 07/07/17 10:11 Dose: 1 tab Nystatin (Nystop Topical Powder) 1 gm TOP DAILY [facility] Last Admin: 07/07/17 09:43 Dose: 1 applic Polyethylene Glycol (Miralax) 17 gm PO BID [facility] Last Admin: 07/07/17 09:47 Dose: Not Given Zinc Sulfate (Zinc Sulfate 220 Mg Cap) 220 mg PO DAILY [facility] Last Admin: 07/07/17 09:44 Dose: 220 mg - Labs Labs: 07/07/17 07:45 07/07/17 07:45 PT 13.1 SECONDS (9.4-12.5) H 06/15/17 11:00 INR 1.19 (0.93-1.08) H 06/15/17 11:00 APTT 31.3 Seconds (25.1-36.5) 06/15/17 11:00 - Constitutional Appears: Non-toxic, No Acute Distress, Chronically Ill - Head Exam Head Exam: ATRAUMATIC, NORMOCEPHALIC - Eye Exam Eye Exam: EOMI, PERRL Pupil Exam: NORMAL ACCOMODATION, PERRL - ENT Exam ENT Exam: Mucous Membranes Moist, Normal External Ear Exam, TM's Normal Bilaterally - Neck Exam Neck Exam: Full ROM, Normal Inspection - Respiratory Exam Respiratory Exam: Clear to Ausculation Bilateral, NORMAL BREATHING PATTERN. absent: Rales, Rhonchi, Wheezes Additional comments: poor inspiratory effort. - Cardiovascular Exam Cardiovascular Exam: REGULAR RHYTHM, RRR, +S1, +S2 - GI/Abdominal Exam GI & Abdominal Exam: Soft, Normal Bowel Sounds. absent: Distended, Tenderness - Extremities Exam Extremities Exam: Full ROM, Normal Inspection - Neurological Exam Neurological Exam: Alert, Awake, CN II-XII Intact, Oriented x3 - Psychiatric Exam Psychiatric exam: Normal Affect, Normal Mood - Skin Skin Exam: Intact, Normal Color Assessment and Plan - Assessment and Plan (Free Text) Assessment: 67 yo female with multiple medical issues with PCN allergy diagnosed as a teenager verified by an Breaker Tender. The patient with leukocytosis. Await cultures especially urine cultures. Diabetes and HTN history? Local wound care. Elevated ESR and C-reactive protein. Completed Vancomycin and Aztreonam for antibiotic coverage. UTI with E. coli sensitive to Azactam. Was on Vancomycin for cellulitis IV. For UTI for 5-7 days treatment... completed. Supportive care. Cellulitis appears improved. No new issues. Social issues currently. CT scan of chest done. No infiltrates seen. Afebrile the past 24 hours. Mild congestion noted in CT with small pulmonary effusions. No leukocytosis. Slightly elevated procalcitonin (0.66) which is undefined without stronger evidence for pneumonia. When encouraged, she is able to use the incentive spirometer without issues and ambulate with minimal difficulty. Continue to monitor off antibiotics at this time. Thank you for allowing me to participate in the care of the patient, we will follow with you.
--- NOTE | 2017-07-08 05:29 | CON ---
DATE: HISTORY OF PRESENT ILLNESS: Shortly, the patient is a 67-year-old female, multiple medical issues. The patient stayed on the medical side for lower extremities ulceration, swelling, and multiple falls in the past. Psych consult was called for evaluation of possible depressive symptoms. This va underwriter attempted to speak to the patient yesterday, but the patient was very drowsy. The patient was seen today. The patient was more alert, obviously has some cognitive limitations. The patient was able to participate in the interview in meaningful way. The patient said that she feels depressed, but she denied any thoughts of harming herself or others, has future oriented plans "to get out of here as fast as possible." The patient denied hearing voices, denied seeing things. Denied paranoid ideation. The patient denied feeling anxious. The patient reported that she lives with a friend in [place], reported that her friend to be supportive. The patient denied previous history of mental illness. The patient denied history of being depressed. The patient denied history of suicidal attempts. Denied using drugs. Denied drinking alcohol. Vital signs are stable. MEDICATIONS: Reviewed. LABS: Reviewed. Most recent was from today, hemoglobin and hematocrit 9.3 and 31.1. MENTAL STATUS EXAMINATION: As this va underwriter described above, the patient was alert, intermittent eye contact. Speech was underproductive. The patient was not aware of what was the date, but was able to look at the report and gave right date. Mood described "I feel depressed." Affect was constricted but reactive, mood congruent. The patient does not look like depressed. Thought process seemed to be concrete. Thought content, the patient denied visual, auditory, or tactile hallucinations. Denied paranoid ideation. The patient denied thoughts of harming herself or others. Denied intents or plan. Insight and judgment seemed to be limited, but improving. Impulses were well controlled. IMPRESSION: Rule out mood disorder due to general medical condition. PLAN: Continue current management. The patient does not present to be depressed or tearful. The patient reported that she has fair appetite and sleep. The patient was found not to be in any imminent danger to self or others. The patient might benefit from the supportive therapy. Thank you very much for letting me to participate in the care of your patient. I will sign off. Should you have any additional questions, give me a call back. Megan Ashley MD [facility] # [phone]
[2017-07-08 08:12] LABS: BASO # 0.07 K/mm3 (0.0-2.0); EOS # 0.8 (0.0-0.7); EOS % 11.7 % (1.5-5.0); GRAN # 3.78 (1.4-6.5); GRAN % 52.7 % (50.0-68.0); HEMOGLOBIN 9.2 g/dL (12.0-16.0); LYMPH # 1.7 (1.2-3.4); MEAN CELL VOLUME 83.1 fl (80.0-105.0); MEAN CORPUSCULAR HEMOGLOBIN 24.3 pg (25.0-35.0); MEAN CORPUSCULAR HGB CONC 29.3 g/dl (31.0-37.0); MEAN PLATELET VOLUME 8.5 fl (7.0-11.0); MONO # 0.8 (0.1-0.6); MONO % 11.6 % (1.0-6.0); RBC 3.78 10^6/uL (3.5-6.1); RED CELL DISTRIBUTION WIDTH 23.8 % (11.5-14.5); WHITE BLOOD COUNT 7.2 10^3/ul (4.5-11.0)
[2017-07-08 09:00] LABS: ALB/GLOB RATIO 0.8 (1.1-1.8); ALBUMIN 3.1 g/dL (3.0-4.8); ALT/SGPT 22 U/L (7-56); AST/SGOT 28 U/L (14-36); BLOOD UREA NITROGEN 14 mg/dL (7-21); CALCIUM 8.1 mg/dL (8.4-10.5); GFR AFRICAN-AMERICAN > 60; GFR NON-AFRICAN AMERICAN 55
[2017-07-08] MEDS: Hydrocerin(120 gm) TOP SCH (10:00)
[2017-07-08] MEDS: Nystatin 100,000 Units/gm Topical Pow(15 gm) TOP SCH (10:01)
[2017-07-08] MEDS: VITAMIN C 500MG PO SCH (10:01)
[2017-07-08] MEDS: guaiFENesin-DM 600-30 mg ER Tab PO SCH ×2 (10:03→18:23)
[2017-07-08] MEDS: POLYETHYLENE GLYCOL 3350 17 GM/Dose PACKET PO SCH ×2 (10:04→18:25)
[2017-07-08] MEDS: Multivitamin With Minerals Tab PO SCH (10:08)
--- NOTE | 2017-07-08 11:08 | CP.PCM.PN ---
<MichaelKearan - Last Filed: 07/09/17 16:35> Subjective - Date & Time of Evaluation Date of Evaluation: 07/08/17 Time of Evaluation: 09:05 - Subjective Subjective: Patient seen and examined at bedside. Per nursing no acute events occurred overnight. The patient reports she couldn't sleep last night due to her neighbor. The patient also reports a cough that sometimes produces white yellowish phlegm. The patient denies any chest pain, lightheadedness, dizziness , fevers ,chills, nausea, vomiting , syncopal episodes or any other complaints. Objective - Vital Signs/Intake and Output Vital Signs (last 24 hours): Temp Pulse Resp BP Pulse Ox 97.8 F 74 20 145/67 97 07/08/17 07:28 07/08/17 10:03 07/08/17 07:28 07/08/17 10:03 07/08/17 07:28 Intake and Output: 07/08/17 07/08/17 06:59 18:59 Intake Total 360 Balance 360 - Medications Medications: Current Medications Acetaminophen (Tylenol 325mg Tab) 650 mg PO Q4 PRN PRN Reason: Fever >100.4 F Last Admin: 07/07/17 17:58 Dose: 650 mg Acetaminophen/Butalbital/Caffeine (Fioricet) 1 tab PO Q4H PRN PRN Reason: Headache Last Admin: 06/29/17 17:42 Dose: 1 tab Albuterol/Ipratropium (Duoneb 3 Mg/0.5 Mg (3 Ml) Ud) 3 ml IH [id number] PRN PRN Reason: Shortness of Breath Last Admin: 07/04/17 07:48 Dose: 3 ml Benzonatate (Tessalon Perles) 100 mg PO TID [facility] Last Admin: 07/08/17 10:04 Dose: 100 mg Docusate Sodium (Colace) 100 mg PO DAILY [facility] Last Admin: 07/08/17 10:03 Dose: Not Given Ferrous Sulfate (Feosol) 324 mg PO TID [facility] Last Admin: 07/08/17 10:04 Dose: 324 mg Guaifenesin (Robitussin) 100 mg PO Q4H PRN PRN Reason: Cough Last Admin: 07/04/17 06:14 Dose: 100 mg Guaifenesin/Dextromethorphan (Mucinex-Dm 600-30 Mg) 1 tab PO BID [facility] Last Admin: 07/08/17 10:03 Dose: 1 tab Heparin Sodium (Porcine) (Heparin) 5,000 units SC Q12 [facility] PRN Reason: Protocol Last Admin: 07/08/17 10:03 Dose: 5,000 units Home Med (Home Med) 1 unit PO DAILY [facility] Last Admin: 07/08/17 10:01 Dose: 1 unit Metoprolol Tartrate (Lopressor) 25 mg PO TID [facility] Last Admin: 07/08/17 10:03 Dose: 25 mg Multi-Ingredient Cream (Hydrocerin Cream) 1 ea TOP DAILY [facility] Last Admin: 07/08/17 10:00 Dose: 1 u Multivitamins/Minerals (Therapeutic-M Tab) 1 tab PO 0800 [facility] Last Admin: 07/08/17 10:08 Dose: 1 tab Nystatin (Nystop Topical Powder) 1 gm TOP DAILY [facility] Last Admin: 07/08/17 10:01 Dose: 1 applic Polyethylene Glycol (Miralax) 17 gm PO BID [facility] Last Admin: 07/08/17 10:04 Dose: Not Given Zinc Sulfate (Zinc Sulfate 220 Mg Cap) 220 mg PO DAILY [facility] Last Admin: 07/08/17 10:08 Dose: 220 mg - Labs Labs: 07/08/17 07:30 07/08/17 07:30 PT 13.1 SECONDS (9.4-12.5) H 06/15/17 11:00 INR 1.19 (0.93-1.08) H 06/15/17 11:00 APTT 31.3 Seconds (25.1-36.5) 06/15/17 11:00 - Head Exam Head Exam: ATRAUMATIC, NORMAL INSPECTION, NORMOCEPHALIC - Eye Exam Eye Exam: EOMI, Normal appearance, PERRL. absent: Periorbital tenderness Pupil Exam: NORMAL ACCOMODATION - ENT Exam ENT Exam: Mucous Membranes Moist, Normal Exam, Normal Oropharynx - Neck Exam Neck Exam: Normal Inspection. absent: Lymphadenopathy, Thyromegaly - Respiratory Exam Respiratory Exam: Decreased Breath Sounds - Cardiovascular Exam Cardiovascular Exam: REGULAR RHYTHM, +S1, +S2 - GI/Abdominal Exam GI & Abdominal Exam: Soft, Normal Bowel Sounds. absent: Rigid, Tenderness - Extremities Exam Extremities Exam: absent: Joint Swelling, Pedal Edema, Tenderness - Back Exam Back Exam: NORMAL INSPECTION. absent: CVA tenderness (L), CVA tenderness (R), paraspinal tenderness - Neurological Exam Neurological Exam: Alert, Awake, Oriented x3 - Psychiatric Exam Psychiatric exam: Normal Affect, Normal Mood. absent: Depressed - Skin Skin Exam: Dry, Intact Assessment and Plan - Assessment and Plan (Free Text) Assessment: 67 F with a PMHx of asthma, arthritis, and vitamin C deficiency who presents with RLE ulcer/cellulitis and draining right lower extremity ulcer, along with UTI. Pt completed course of Vancomycin and Azobactam for cellulitis and UTI. Patient is still pending placement at this time. Plan: 1. RLE cellulitis/ulcer with culture positive for Proteus Mirabilis and beta hemolytic group b strep -Resolved - continue tylenol prn fevers - continue MV/Vitamin C and Zinc - Physical therapy recommends TED -Podiatry consulted, rec's appreciated. -Patient pending placement. Sister had a meeting with Social work today. We are continuing to work towards getting placement or sending home with services pending Insurance.Spoke with admissions at [facility] at [phone]. Social work was advised that pending a conversation with medicaid patient can be transferred there pending her sister coming with the necessary forms to obtain the Medicare number. Will continue to follow. 2. Dry skin on the lower extremities bilaterally -Continue Eucerin cream applied 3. Headache - continue fioricet PRN 4. Shortness of breath - Chest x-ray clear - Cotinue to encourage Incentive spirometry - Duonebs changed to Scheduled for 24 hours. Will continue to monitor closely. - O2 Sat >90% on room air. Patient sating at 94 % on room air. -CXR ordered negative. - cont O2 NC PRN -Repeat procal ordered .Will f/u with results. 5. Non productive cough -Repeat CXR was negative to active pulmonary disease -Chest CT showed some mild enlarged axillary LN, mild cardiomegaly and mild vascular congestion. -Continue Robutissin. Continuye Mucinex DM . Will continue to monitor closely. 6. UTI - Completed Azactam course -Repeat urine culture preliminary growing Gram negative rods. Will f/u with final results. -Will consider an antibiotic after final results from urine culture return. 7. Anemia likely 2/2 iron deficiency anemia - Hg stable -Continue Feosol -trend H/H 8. vitamin C deficiency - continue MV and Vitamin C ordered 9. Depression -Psych consulted. Rec's appreciated. GI/DVT ppx - Heparin - Protonix <Clemente Cabrera - Last Filed: 07/09/17 17:17> Objective - Vital Signs/Intake and Output Vital Signs (last 24 hours): Temp Pulse Resp BP Pulse Ox 97.6 F 82 20 127/73 97 07/09/17 09:54 07/09/17 12:08 07/09/17 09:54 07/09/17 12:08 07/09/17 09:54 Intake and Output: 07/09/17 07/09/17 06:59 18:59 Intake Total 900 480 Output Total 0 Balance 900 480 - Medications Medications: Current Medications Acetaminophen (Tylenol 325mg Tab) 650 mg PO Q4 PRN PRN Reason: Fever >100.4 F Last Admin: 07/07/17 17:58 Dose: 650 mg Acetaminophen/Butalbital/Caffeine (Fioricet) 1 tab PO Q4H PRN PRN Reason: Headache Last Admin: 06/29/17 17:42 Dose: 1 tab Albuterol/Ipratropium (Duoneb 3 Mg/0.5 Mg (3 Ml) Ud) 3 ml IH [id number] PRN PRN Reason: Shortness of Breath Last Admin: 07/04/17 07:48 Dose: 3 ml Benzonatate (Tessalon Perles) 100 mg PO TID [facility] Last Admin: 07/09/17 16:45 Dose: 100 mg Ciprofloxacin (Cipro) 500 mg PO Q12 [facility] PRN Reason: Protocol Stop: 07/10/17 13:07 Docusate Sodium (Colace) 100 mg PO DAILY [facility] Last Admin: 07/09/17 12:07 Dose: 100 mg Ferrous Sulfate (Feosol) 324 mg PO TID [facility] Last Admin: 07/09/17 16:44 Dose: 324 mg Guaifenesin (Robitussin) 100 mg PO Q4H PRN PRN Reason: Cough Last Admin: 07/04/17 06:14 Dose: 100 mg Guaifenesin/Dextromethorphan (Mucinex-Dm 600-30 Mg) 1 tab PO BID [facility] Last Admin: 12/08/17 12:06 Dose: 1 tab Heparin Sodium (Porcine) (Heparin) 5,000 units SC Q12 [facility] PRN Reason: Protocol Last Admin: 07/09/17 12:02 Dose: 5,000 units Home Med (Home Med) 1 unit PO DAILY [facility] Last Admin: 07/09/17 12:07 Dose: 1 unit Metoprolol Tartrate (Lopressor) 25 mg PO TID [facility] Last Admin: 07/09/17 12:08 Dose: 25 mg Multi-Ingredient Cream (Hydrocerin Cream) 1 ea TOP DAILY [facility] Last Admin: 07/09/17 12:06 Dose: 1 u Multivitamins/Minerals (Therapeutic-M Tab) 1 tab PO 0800 [facility] Last Admin: 07/09/17 16:45 Dose: 1 tab Nystatin (Nystop Topical Powder) 1 gm TOP DAILY [facility] Last Admin: 07/08/17 10:01 Dose: 1 applic Polyethylene Glycol (Miralax) 17 gm PO BID [facility] Last Admin: 07/09/17 11:53 Dose: Not Given Zinc Sulfate (Zinc Sulfate 220 Mg Cap) 220 mg PO DAILY [facility] Last Admin: 07/09/17 12:06 Dose: 220 mg - Labs Labs: 07/09/17 07:30 07/09/17 07:30 PT 13.1 SECONDS (9.4-12.5) H 06/15/17 11:00 INR 1.19 (0.93-1.08) H 06/15/17 11:00 APTT 31.3 Seconds (25.1-36.5) 06/15/17 11:00 Attending/Attestation - Attestation I have personally seen and examined this patient.: Yes I have fully participated in the care of the patient.: Yes I have reviewed all pertinent clinical information, including history, physical exam and plan: Yes Notes (Text): I have seen and examined the patient with the resident. Agree with the above note with the following additions/ exceptions: Briefly this is 67 year old female with history of asthma, iron deficiency anemia, arthritis, obesity who was admitted for evaluation of bilateral lymphedema and RLE cellulitis with draining ulcer of right ankle. Cellulitis has resolved. Echo revealed normal LVEF. Wound cultures reveal proteus and beta hemolytic group B. She also had EColi UTI. Patient has completed vancomycin and azactam. PT recommended TED. Discussed with CM in detail. Awaiting placement. Complains of persistent cough. Encourage to use incentive spirometry. CT chest reviewed. She has been afebrile for the past few days. Urine culture is still pending. Patient doesn't want to get OOB despite encouragement. Psych consult pending for possible depression. Had a detailed discussion with patients room mate Morales Sloan. Upon discharge patient will follow [place] [facility] [place] Clemente Cabrera
--- NOTE | 2017-07-08 19:08 | CP.PCM.PN ---
Subjective - Date & Time of Evaluation Date of Evaluation: 07/08/17 Time of Evaluation: 18:30 - Subjective Subjective: Infectious Disease Follow Up: July 08, 2017 67 yo female presenting with 3 weeks of RLE ulceration, swelling and leaking from the wound as well as multiple falls in the past 3 weeks. The patient has an extensive medical history of asthma, arthritis, vitamin C deficiency, and possible thyroid disease. Draining RLE ulceration... cellulitis improved/resolved. Multiple chronic medical issues. Still with persistent dry cough. Otherwise stable. Mild erythema and excoriation of the folds in the abdomen and under the breasts. Fevers up to 100.8 F two nights ago. Patient making few complaints. The patient has remained in bed. Nursing and aides had noted that the patient's friend "Chris" has encouraged the patient to stay in bed in order to get to a halfway or subacute facility. "Chris" was the person the patient was living with prior to coming to [facility]. Also noted that the patient has had a hacking cough the last couple of days. Afebrile the past [address] scan of chest done. CT shows mild vascular congestion and no infiltrates. No additional issues. Social Issues. Objective - Vital Signs/Intake and Output Vital Signs (last 24 hours): Temp Pulse Resp BP Pulse Ox 97.9 F 73 20 134/70 98 07/08/17 16:09 07/08/17 18:24 07/08/17 16:09 07/08/17 18:24 07/08/17 16:09 Intake and Output: 07/08/17 07/09/17 18:59 06:59 Intake Total 480 Balance 480 - Medications Medications: Current Medications Acetaminophen (Tylenol 325mg Tab) 650 mg PO Q4 PRN PRN Reason: Fever >100.4 F Last Admin: 07/07/17 17:58 Dose: 650 mg Acetaminophen/Butalbital/Caffeine (Fioricet) 1 tab PO Q4H PRN PRN Reason: Headache Last Admin: 06/29/17 17:42 Dose: 1 tab Albuterol/Ipratropium (Duoneb 3 Mg/0.5 Mg (3 Ml) Ud) 3 ml IH [id number] PRN PRN Reason: Shortness of Breath Last Admin: 07/04/17 07:48 Dose: 3 ml Benzonatate (Tessalon Perles) 100 mg PO TID [facility] Last Admin: 07/08/17 18:26 Dose: 100 mg Docusate Sodium (Colace) 100 mg PO DAILY [facility] Last Admin: 07/08/17 10:03 Dose: Not Given Ferrous Sulfate (Feosol) 324 mg PO TID [facility] Last Admin: 07/08/17 18:24 Dose: 324 mg Guaifenesin (Robitussin) 100 mg PO Q4H PRN PRN Reason: Cough Last Admin: 07/04/17 06:14 Dose: 100 mg Guaifenesin/Dextromethorphan (Mucinex-Dm 600-30 Mg) 1 tab PO BID [facility] Last Admin: 07/08/17 18:23 Dose: 1 tab Heparin Sodium (Porcine) (Heparin) 5,000 units SC Q12 [facility] PRN Reason: Protocol Last Admin: 07/08/17 10:03 Dose: 5,000 units Home Med (Home Med) 1 unit PO DAILY [facility] Last Admin: 07/08/17 10:01 Dose: 1 unit Metoprolol Tartrate (Lopressor) 25 mg PO TID [facility] Last Admin: 07/08/17 18:24 Dose: 25 mg Multi-Ingredient Cream (Hydrocerin Cream) 1 ea TOP DAILY [facility] Last Admin: 07/08/17 10:00 Dose: 1 u Multivitamins/Minerals (Therapeutic-M Tab) 1 tab PO 0800 [facility] Last Admin: 07/08/17 10:08 Dose: 1 tab Nystatin (Nystop Topical Powder) 1 gm TOP DAILY [facility] Last Admin: 07/08/17 10:01 Dose: 1 applic Polyethylene Glycol (Miralax) 17 gm PO BID [facility] Last Admin: 07/08/17 18:25 Dose: Not Given Zinc Sulfate (Zinc Sulfate 220 Mg Cap) 220 mg PO DAILY [facility] Last Admin: 07/08/17 10:08 Dose: 220 mg - Labs Labs: 07/08/17 07:30 07/08/17 07:30 PT 13.1 SECONDS (9.4-12.5) H 06/15/17 11:00 INR 1.19 (0.93-1.08) H 06/15/17 11:00 APTT 31.3 Seconds (25.1-36.5) 06/15/17 11:00 - Constitutional Appears: Non-toxic, No Acute Distress, Chronically Ill - Head Exam Head Exam: ATRAUMATIC, NORMOCEPHALIC - Eye Exam Eye Exam: EOMI, PERRL Pupil Exam: NORMAL ACCOMODATION, PERRL - ENT Exam ENT Exam: Mucous Membranes Moist, Normal External Ear Exam, TM's Normal Bilaterally - Neck Exam Neck Exam: Full ROM, Normal Inspection - Respiratory Exam Respiratory Exam: Clear to Ausculation Bilateral, NORMAL BREATHING PATTERN. absent: Rales, Rhonchi, Wheezes Additional comments: poor inspiratory effort. - Cardiovascular Exam Cardiovascular Exam: REGULAR RHYTHM, RRR, +S1, +S2 - GI/Abdominal Exam GI & Abdominal Exam: Soft, Normal Bowel Sounds. absent: Distended, Tenderness - Extremities Exam Extremities Exam: Full ROM, Normal Inspection - Neurological Exam Neurological Exam: Alert, Awake, CN II-XII Intact, Oriented x3 - Psychiatric Exam Psychiatric exam: Normal Affect, Normal Mood - Skin Skin Exam: Intact, Normal Color Assessment and Plan - Assessment and Plan (Free Text) Assessment: 67 yo female with multiple medical issues with PCN allergy diagnosed as a teenager verified by an [employer]. The patient with leukocytosis. Await cultures especially urine cultures. Diabetes and HTN history? Local wound care. Elevated ESR and C-reactive protein. Completed Vancomycin and Aztreonam for antibiotic coverage. UTI with E. coli sensitive to Azactam. Was on Vancomycin for cellulitis IV. For UTI for 5-7 days treatment... completed. Supportive care. Cellulitis appears improved. No new issues. Social issues currently. Homeless at this time. CT scan of chest done. No infiltrates seen. Afebrile the past 24 hours. Mild congestion noted in CT with small pulmonary effusions. No leukocytosis. Slightly elevated procalcitonin (0.66) which is undefined without stronger evidence for pneumonia. When encouraged, she is able to use the incentive spirometer without issues and ambulate with minimal difficulty. Continue to monitor off antibiotics at this time. Thank you for allowing me to participate in the care of the patient, we will follow with you.
[2017-07-09 08:00] LABS: BASO # 0.04 K/mm3 (0.0-2.0); BASO % 0.6 % (0.0-3.0); EOS # 0.7 (0.0-0.7); EOS % 9.7 % (1.5-5.0); GRAN # 3.77 (1.4-6.5); GRAN % 56.2 % (50.0-68.0); HEMOGLOBIN 9.3 g/dL (12.0-16.0); LYMPH # 1.6 (1.2-3.4); LYMPH % 23.4 % (22.0-35.0); MEAN CELL VOLUME 83.5 fl (80.0-105.0); MEAN CORPUSCULAR HEMOGLOBIN 24.3 pg (25.0-35.0); MEAN CORPUSCULAR HGB CONC 29.2 g/dl (31.0-37.0); MEAN PLATELET VOLUME 8.4 fl (7.0-11.0); MONO # 0.7 (0.1-0.6); MONO % 10.1 % (1.0-6.0); RBC 3.82 10^6/uL (3.5-6.1); RED CELL DISTRIBUTION WIDTH 23.7 % (11.5-14.5); WHITE BLOOD COUNT 6.7 10^3/ul (4.5-11.0)
[2017-07-09] MEDS ORDERED: Potassium Chloride 20 mEq ER Tab PO ONE ×2 (08:39→11:45)
--- NOTE | 2017-07-09 08:47 | PN ---
DATE: 07/07/2017 She is being seen today for a consultation followup. SUBJECTIVE: This is a 67-year-old female who was seen at her bedside. She originally admitted to the hospital on 06/15/2017 for right ankle redness and ulcer. She has been in the hospital since, consultation was called with concerns of depression. The patient indicates that she really was not sure what happened prior to admission in terms of the fact that she had gotten kind of loss memory for couple of days when she was sick with fever. She indicates she has some supportive family that she is doing okay in the community; however, she is interested in a referral to may be see someone to talk to upon discharge. MENTAL STATUS EXAM: The patient is alert and oriented x3. Her eye contact is good. Her behavior is pleasant and cooperative. Speech, rate and volume are within normal limits. Mood is euthymic. Affect is full. Thoughts are goal directed. She denies being suicidal or homicidal. Appears in no imminent danger at this time. She denies presence of hallucinations, delusions, or paranoia. Her concentration and her focus appear adequate. Her memory, both short-term and long-term. She feels good. Her appetite is normalizing as well as her sleep. The patient evidently will be discharged soon. She was given a referral for here in [place] and she was placed with this referral. She does find to follow up. She is not any imminent danger of hurting herself or anyone else and is psychiatrically stable at this time. We will sign off in this patient. Loan Aguilera APN Megan Ashley MD MTDDi
[2017-07-09 09:42] LABS: ALB/GLOB RATIO 0.7 (1.1-1.8); ALBUMIN 3.2 g/dL (3.0-4.8); ALT/SGPT 17 U/L (7-56); AST/SGOT 33 U/L (14-36); BLOOD UREA NITROGEN 15 mg/dL (7-21); CALCIUM 7.9 mg/dL (8.4-10.5); GFR AFRICAN-AMERICAN > 60; GFR NON-AFRICAN AMERICAN 50
[2017-07-09] MEDS: POLYETHYLENE GLYCOL 3350 17 GM/Dose PACKET PO SCH ×2 (11:53→20:01)
[2017-07-09] MEDS: Hydrocerin(120 gm) TOP SCH (12:06)
[2017-07-09] MEDS: guaiFENesin-DM 600-30 mg ER Tab PO SCH ×2 (12:06→18:43)
[2017-07-09] MEDS: VITAMIN C 500MG PO SCH (12:07)
--- NOTE | 2017-07-09 13:56 | CP.PCM.PN ---
<Yonatan Rodriguez - Last Filed: 07/09/17 16:35> Subjective - Date & Time of Evaluation Date of Evaluation: 07/09/17 Time of Evaluation: 06:53 - Subjective Subjective: Patient seen and examined at bedside. Per nursing no acute events occurred overnight. The patient still reports a dry hacking cough today on examination. The patient also reports some right knee pain. The patient denies any chest pain, shortness of breath, lightheadedness, dizziness, changes in vision, abdominal pain, fevers, chills, nausea, vomiting, or any other complaints. Objective - Vital Signs/Intake and Output Vital Signs (last 24 hours): Temp Pulse Resp BP Pulse Ox 97.6 F 82 20 127/73 97 07/09/17 09:54 07/09/17 12:08 07/09/17 09:54 07/09/17 12:08 07/09/17 09:54 Intake and Output: 07/09/17 07/09/17 06:59 18:59 Intake Total 900 Output Total 0 Balance 900 - Medications Medications: Current Medications Acetaminophen (Tylenol 325mg Tab) 650 mg PO Q4 PRN PRN Reason: Fever >100.4 F Last Admin: 07/07/17 17:58 Dose: 650 mg Acetaminophen/Butalbital/Caffeine (Fioricet) 1 tab PO Q4H PRN PRN Reason: Headache Last Admin: 06/29/17 17:42 Dose: 1 tab Albuterol/Ipratropium (Duoneb 3 Mg/0.5 Mg (3 Ml) Ud) 3 ml IH [id number] PRN PRN Reason: Shortness of Breath Last Admin: 07/04/17 07:48 Dose: 3 ml Benzonatate (Tessalon Perles) 100 mg PO TID [facility] Last Admin: 07/09/17 12:06 Dose: 100 mg Ciprofloxacin (Cipro) 500 mg PO Q12 [facility] PRN Reason: Protocol Stop: 07/10/17 13:07 Docusate Sodium (Colace) 100 mg PO DAILY [facility] Last Admin: 07/09/17 12:07 Dose: 100 mg Ferrous Sulfate (Feosol) 324 mg PO TID [facility] Last Admin: 07/09/17 12:07 Dose: 324 mg Guaifenesin (Robitussin) 100 mg PO Q4H PRN PRN Reason: Cough Last Admin: 07/04/17 06:14 Dose: 100 mg Guaifenesin/Dextromethorphan (Mucinex-Dm 600-30 Mg) 1 tab PO BID [facility] Last Admin: 07/09/17 12:06 Dose: 1 tab Heparin Sodium (Porcine) (Heparin) 5,000 units SC Q12 [facility] PRN Reason: Protocol Last Admin: 07/09/17 12:02 Dose: 5,000 units Home Med (Home Med) 1 unit PO DAILY [facility] Last Admin: 07/09/17 12:07 Dose: 1 unit Metoprolol Tartrate (Lopressor) 25 mg PO TID [facility] Last Admin: 07/09/17 12:08 Dose: 25 mg Multi-Ingredient Cream (Hydrocerin Cream) 1 ea TOP DAILY [facility] Last Admin: 07/09/17 12:06 Dose: 1 u Multivitamins/Minerals (Therapeutic-M Tab) 1 tab PO 0800 [facility] Last Admin: 07/08/17 10:08 Dose: 1 tab Nystatin (Nystop Topical Powder) 1 gm TOP DAILY [facility] Last Admin: 07/08/17 10:01 Dose: 1 applic Polyethylene Glycol (Miralax) 17 gm PO BID [facility] Last Admin: 07/09/17 11:53 Dose: Not Given Zinc Sulfate (Zinc Sulfate 220 Mg Cap) 220 mg PO DAILY [facility] Last Admin: 07/09/17 12:06 Dose: 220 mg - Labs Labs: 07/09/17 07:30 07/09/17 07:30 PT 13.1 SECONDS (9.4-12.5) H 06/15/17 11:00 INR 1.19 (0.93-1.08) H 06/15/17 11:00 APTT 31.3 Seconds (25.1-36.5) 06/15/17 11:00 - Head Exam Head Exam: ATRAUMATIC, NORMAL INSPECTION, NORMOCEPHALIC - Eye Exam Eye Exam: EOMI, Normal appearance, PERRL. absent: Periorbital tenderness Pupil Exam: NORMAL ACCOMODATION, PERRL. absent: Irregular, Unequal - ENT Exam ENT Exam: Mucous Membranes Moist, Normal Exam, Normal Oropharynx - Neck Exam Neck Exam: Normal Inspection. absent: Lymphadenopathy, Meningismus, Thyromegaly - Respiratory Exam Respiratory Exam: Clear to Ausculation Bilateral, NORMAL BREATHING PATTERN. absent: Prolonged Expiratory Phase, Respiratory Distress - Cardiovascular Exam Cardiovascular Exam: REGULAR RHYTHM, +S1, +S2. absent: JVD - GI/Abdominal Exam GI & Abdominal Exam: Soft, Normal Bowel Sounds. absent: Rigid, Hyperactive Bowel Sounds - Extremities Exam Extremities Exam: absent: Calf Tenderness, Pedal Edema - Back Exam Back Exam: NORMAL INSPECTION. absent: CVA tenderness (L), CVA tenderness (R), paraspinal tenderness - Neurological Exam Neurological Exam: Alert, Awake, CN II-XII Intact - Psychiatric Exam Psychiatric exam: Normal Affect, Normal Mood - Skin Skin Exam: Dry, Intact Assessment and Plan - Assessment and Plan (Free Text) Plan: 1. RLE cellulitis/ulcer with culture positive for Proteus Mirabilis and beta hemolytic group b strep -Resolved - continue tylenol prn fevers - continue MV/Vitamin C and Zinc -Podiatry consulted, rec's appreciated. -Patient pending placement. Social work advised that we have an accepting facility, [facility] in [facility]. Social work advised that the acceptance is pending conversation with medicaid supportive employment case manager. Social work reviewed earlier conversation with medicaid social media analyst. sister is in agreement with plan at this time.Social work provided number for medicaid social media analyst. Will continue to follow. 2. Dry skin on the lower extremities bilaterally -Continue Eucerin cream applied 3. Headache - continue fioricet PRN 4. Shortness of breath - Chest x-ray clear - Cotinue to encourage Incentive spirometry - Continue Duonebs. Will continue to monitor closely. - O2 Sat >90% on room air. Patient sating at 97 % on room air. -CXR ordered negative. - cont O2 NC PRN 5. Non productive cough -Repeat CXR was negative to active pulmonary disease -Chest CT showed some mild enlarged axillary LN, mild cardiomegaly and mild vascular congestion. -Continue Robutissin. Continuye Mucinex DM . Will continue to monitor closely. 6. Right knee pain - most likely 2/2 to immobility and PT treatment yesterday. -One dose of Morphine given today. 7. UTI - Completed Azactam course -Repeat urine culture preliminary growing Gram negative rods. Will f/u with final results. -Repeat urine culture showed Klebsiella growth on final read. -Ciprofloxacin 500mg BID ordered for 3-5 Days. 8. Anemia likely 2/2 iron deficiency anemia - Hg stable -Continue Feosol -trend H/H 9. vitamin C deficiency - continue MV and Vitamin C ordered 10. Depression -Psych consulted. Rec's appreciated. GI/DVT ppx - Heparin - Protonix <Clemente Cabrera - Last Filed: 07/09/17 17:20> Objective - Vital Signs/Intake and Output Vital Signs (last 24 hours): Temp Pulse Resp BP Pulse Ox 97.6 F 82 20 127/73 97 07/09/17 09:54 07/09/17 12:08 07/09/17 09:54 07/09/17 12:08 07/09/17 09:54 Intake and Output: 07/09/17 07/09/17 06:59 18:59 Intake Total 900 480 Output Total 0 Balance 900 480 - Medications Medications: Current Medications Acetaminophen (Tylenol 325mg Tab) 650 mg PO Q4 PRN PRN Reason: Fever >100.4 F Last Admin: 07/07/17 17:58 Dose: 650 mg Acetaminophen/Butalbital/Caffeine (Fioricet) 1 tab PO Q4H PRN PRN Reason: Headache Last Admin: 06/29/17 17:42 Dose: 1 tab Albuterol/Ipratropium (Duoneb 3 Mg/0.5 Mg (3 Ml) Ud) 3 ml IH [id number] PRN PRN Reason: Shortness of Breath Last Admin: 07/04/17 07:48 Dose: 3 ml Benzonatate (Tessalon Perles) 100 mg PO TID [facility] Last Admin: 07/09/17 16:45 Dose: 100 mg Ciprofloxacin (Cipro) 500 mg PO Q12 [facility] PRN Reason: Protocol Stop: 07/10/17 13:07 Docusate Sodium (Colace) 100 mg PO DAILY [facility] Last Admin: 07/09/17 12:07 Dose: 100 mg Ferrous Sulfate (Feosol) 324 mg PO TID [facility] Last Admin: 07/09/17 16:44 Dose: 324 mg Guaifenesin (Robitussin) 100 mg PO Q4H PRN PRN Reason: Cough Last Admin: 07/04/17 06:14 Dose: 100 mg Guaifenesin/Dextromethorphan (Mucinex-Dm 600-30 Mg) 1 tab PO BID [facility] Last Admin: 07/09/17 12:06 Dose: 1 tab Heparin Sodium (Porcine) (Heparin) 5,000 units SC Q12 [facility] PRN Reason: Protocol Last Admin: 07/09/17 12:02 Dose: 5,000 units Home Med (Home Med) 1 unit PO DAILY [facility] Last Admin: 07/09/17 12:07 Dose: 1 unit Metoprolol Tartrate (Lopressor) 25 mg PO TID [facility] Last Admin: 07/09/17 12:08 Dose: 25 mg Multi-Ingredient Cream (Hydrocerin Cream) 1 ea TOP DAILY [facility] Last Admin: 07/09/17 12:06 Dose: 1 u Multivitamins/Minerals (Therapeutic-M Tab) 1 tab PO 0800 [facility] Last Admin: 07/09/17 16:45 Dose: 1 tab Nystatin (Nystop Topical Powder) 1 gm TOP DAILY [facility] Last Admin: 07/08/17 10:01 Dose: 1 applic Polyethylene Glycol (Miralax) 17 gm PO BID [facility] Last Admin: 07/09/17 11:53 Dose: Not Given Zinc Sulfate (Zinc Sulfate 220 Mg Cap) 220 mg PO DAILY [facility] Last Admin: 07/09/17 12:06 Dose: 220 mg - Labs Labs: 07/09/17 07:30 07/09/17 07:30 PT 13.1 SECONDS (9.4-12.5) H 06/15/17 11:00 INR 1.19 (0.93-1.08) H 06/15/17 11:00 APTT 31.3 Seconds (25.1-36.5) 06/15/17 11:00 Attending/Attestation - Attestation I have personally seen and examined this patient.: Yes I have fully participated in the care of the patient.: Yes I have reviewed all pertinent clinical information, including history, physical exam and plan: Yes Notes (Text): I have seen and examined the patient with the resident. Agree with the above note with the following additions/ exceptions: Briefly this is 67 year old female with history of asthma, iron deficiency anemia, arthritis, obesity who was admitted for evaluation of bilateral lymphedema and RLE cellulitis with draining ulcer of right ankle. Cellulitis has resolved. Echo revealed normal LVEF. Wound cultures reveal proteus and beta hemolytic group B. She also had EColi UTI. Patient has completed vancomycin and azactam. PT recommended TED. Discussed with CM in detail. Awaiting placement. Complains of mild cough. Encourage to use incentive spirometry. CT chest reviewed. She has been afebrile for the past few days. Urine culture is growing klebsiella on cipro. Patient sat on a chair today. Psych consult pending for possible depression. Upon discharge patient will follow up in [facility] clinic. Dr Clemente Cabrera
--- NOTE | 2017-07-09 16:07 | CP.PCM.PN ---
Subjective - Date & Time of Evaluation Date of Evaluation: 07/09/17 Time of Evaluation: 15:30 - Subjective Subjective: Infectious Disease Follow Up: July 09, 2017 67 yo female presenting with 3 weeks of RLE ulceration, swelling and leaking from the wound as well as multiple falls in the past 3 weeks. The patient has an extensive medical history of asthma, arthritis, vitamin C deficiency, and possible thyroid disease. Draining RLE ulceration... cellulitis improved/resolved. Multiple chronic medical issues. Still with persistent dry cough. Otherwise stable. Mild erythema and excoriation of the folds in the abdomen and under the breasts. Fevers up to 100.8 F two nights ago. Patient making few complaints. The patient has remained in bed. Nursing and aides had noted that the patient's friend "Chris" has encouraged the patient to stay in bed in order to get to a shelter or subacute facility. "Chris" was the person the patient was living with prior to coming to [facility]. Also noted that the patient has had a hacking cough the last couple of days. Afebrile the past [address] scan of chest done. CT shows mild vascular congestion and no infiltrates. No additional issues. Social Issues. UTI with Klebsiella growth. Sensitive to Cipro. Objective - Vital Signs/Intake and Output Vital Signs (last 24 hours): Temp Pulse Resp BP Pulse Ox 97.6 F 82 20 127/73 97 07/09/17 09:54 07/09/17 12:08 07/09/17 09:54 07/09/17 12:08 07/09/17 09:54 Intake and Output: 07/09/17 07/09/17 06:59 18:59 Intake Total 900 480 Output Total 0 Balance 900 480 - Medications Medications: Current Medications Acetaminophen (Tylenol 325mg Tab) 650 mg PO Q4 PRN PRN Reason: Fever >100.4 F Last Admin: 07/07/17 17:58 Dose: 650 mg Acetaminophen/Butalbital/Caffeine (Fioricet) 1 tab PO Q4H PRN PRN Reason: Headache Last Admin: 06/29/17 17:42 Dose: 1 tab Albuterol/Ipratropium (Duoneb 3 Mg/0.5 Mg (3 Ml) Ud) 3 ml IH [id number] PRN PRN Reason: Shortness of Breath Last Admin: 07/04/17 07:48 Dose: 3 ml Benzonatate (Tessalon Perles) 100 mg PO TID [facility] Last Admin: 07/09/17 12:06 Dose: 100 mg Ciprofloxacin (Cipro) 500 mg PO Q12 [facility] PRN Reason: Protocol Stop: 07/10/17 13:07 Docusate Sodium (Colace) 100 mg PO DAILY [facility] Last Admin: 07/09/17 12:07 Dose: 100 mg Ferrous Sulfate (Feosol) 324 mg PO TID [facility] Last Admin: 07/09/17 12:07 Dose: 324 mg Guaifenesin (Robitussin) 100 mg PO Q4H PRN PRN Reason: Cough Last Admin: 07/04/17 06:14 Dose: 100 mg Guaifenesin/Dextromethorphan (Mucinex-Dm 600-30 Mg) 1 tab PO BID [facility] Last Admin: 07/09/17 12:06 Dose: 1 tab Heparin Sodium (Porcine) (Heparin) 5,000 units SC Q12 [facility] PRN Reason: Protocol Last Admin: 07/09/17 12:02 Dose: 5,000 units Home Med (Home Med) 1 unit PO DAILY [facility] Last Admin: 07/09/17 12:07 Dose: 1 unit Metoprolol Tartrate (Lopressor) 25 mg PO TID [facility] Last Admin: 07/09/17 12:08 Dose: 25 mg Multi-Ingredient Cream (Hydrocerin Cream) 1 ea TOP DAILY [facility] Last Admin: 07/09/17 12:06 Dose: 1 u Multivitamins/Minerals (Therapeutic-M Tab) 1 tab PO 0800 [facility] Last Admin: 07/08/17 10:08 Dose: 1 tab Nystatin (Nystop Topical Powder) 1 gm TOP DAILY [facility] Last Admin: 07/08/17 10:01 Dose: 1 applic Polyethylene Glycol (Miralax) 17 gm PO BID [facility] Last Admin: 07/09/17 11:53 Dose: Not Given Zinc Sulfate (Zinc Sulfate 220 Mg Cap) 220 mg PO DAILY [facility] Last Admin: 07/09/17 12:06 Dose: 220 mg - Labs Labs: 07/09/17 07:30 07/09/17 07:30 PT 13.1 SECONDS (9.4-12.5) H 06/15/17 11:00 INR 1.19 (0.93-1.08) H 06/15/17 11:00 APTT 31.3 Seconds (25.1-36.5) 06/15/17 11:00 - Constitutional Appears: Non-toxic, No Acute Distress, Chronically Ill - Head Exam Head Exam: ATRAUMATIC, NORMOCEPHALIC - Eye Exam Eye Exam: EOMI, PERRL Pupil Exam: NORMAL ACCOMODATION, PERRL - ENT Exam ENT Exam: Mucous Membranes Moist, Normal External Ear Exam, TM's Normal Bilaterally - Neck Exam Neck Exam: Full ROM, Normal Inspection - Respiratory Exam Respiratory Exam: Clear to Ausculation Bilateral, NORMAL BREATHING PATTERN. absent: Rales, Rhonchi, Wheezes - Cardiovascular Exam Cardiovascular Exam: REGULAR RHYTHM, RRR, +S1, +S2 - GI/Abdominal Exam GI & Abdominal Exam: Soft, Normal Bowel Sounds. absent: Distended, Tenderness - Extremities Exam Extremities Exam: Full ROM, Normal Inspection - Neurological Exam Neurological Exam: Alert, Awake, CN II-XII Intact, Oriented x3 - Psychiatric Exam Psychiatric exam: Normal Affect, Normal Mood - Skin Skin Exam: Intact, Normal Color Assessment and Plan - Assessment and Plan (Free Text) Assessment: 67 yo female with multiple medical issues with PCN allergy diagnosed as a teenager verified by an Rehabilitation Worker. The patient with leukocytosis. Await cultures especially urine cultures. Diabetes and HTN history? Local wound care. Elevated ESR and C-reactive protein. Completed Vancomycin and Aztreonam for antibiotic coverage. UTI with E. coli sensitive to Azactam. Was on Vancomycin for cellulitis IV. For UTI for 5-7 days treatment... completed. Supportive care. Cellulitis appears improved. No new issues. Social issues currently. Homeless at this time. CT scan of chest done. No infiltrates seen. Afebrile the past 24 hours. Mild congestion noted in CT with small pulmonary effusions. No leukocytosis. Slightly elevated procalcitonin (0.66) which is undefined without stronger evidence for pneumonia. When encouraged, she is able to use the incentive spirometer without issues and ambulate with minimal difficulty. UTI with Klebsiella. Sensitive to Cipro. Start Cipro and give for 5 day course at 500mg PO BID. Thank you for allowing me to participate in the care of the patient, we will follow with you.
[2017-07-09] MEDS: Multivitamin With Minerals Tab PO SCH (16:45)
[2017-07-09] MEDS: Nystatin 100,000 Units/gm Topical Pow(15 gm) TOP SCH (18:41)
[2017-07-10] MEDS: guaiFENesin-DM 600-30 mg ER Tab PO SCH ×2 (10:13→17:09)
[2017-07-10] MEDS: Hydrocerin(120 gm) TOP SCH (10:14)
[2017-07-10] MEDS: VITAMIN C 500MG PO SCH (10:14)
[2017-07-10] MEDS: POLYETHYLENE GLYCOL 3350 17 GM/Dose PACKET PO SCH ×2 (10:15→17:10)
--- NOTE | 2017-07-10 11:57 | CP.PCM.PN ---
<MichaelBlocksburg - Last Filed: 07/10/17 16:27> Subjective - Date & Time of Evaluation Date of Evaluation: 07/10/17 Time of Evaluation: 08:55 - Subjective Subjective: Patient seen and examined at bedside. Per nursing no acute events occurred overnight. The patient does report still a dry cough. The patient denies any chest pain, shortness of breath, nausea ,vomiting, fevers, chills, lightheadedness, dizziness, abdominal pain, syncopal episodes, or any other complaints. Objective - Vital Signs/Intake and Output Vital Signs (last 24 hours): Temp Pulse Resp BP Pulse Ox 98.4 F 78 18 122/80 97 07/10/17 07:30 07/10/17 10:13 07/10/17 07:30 07/10/17 10:13 07/10/17 07:30 Intake and Output: 07/10/17 07/10/17 06:59 18:59 Intake Total 240 Balance 240 - Medications Medications: Current Medications Acetaminophen (Tylenol 325mg Tab) 650 mg PO Q4 PRN PRN Reason: Fever >100.4 F Last Admin: 07/07/17 17:58 Dose: 650 mg Acetaminophen/Butalbital/Caffeine (Fioricet) 1 tab PO Q4H PRN PRN Reason: Headache Last Admin: 06/29/17 17:42 Dose: 1 tab Albuterol/Ipratropium (Duoneb 3 Mg/0.5 Mg (3 Ml) Ud) 3 ml IH [id number] PRN PRN Reason: Shortness of Breath Last Admin: 07/04/17 07:48 Dose: 3 ml Benzonatate (Tessalon Perles) 100 mg PO TID [facility] Last Admin: 07/10/17 10:13 Dose: 100 mg Ciprofloxacin (Cipro) 500 mg PO Q12 [facility] PRN Reason: Protocol Stop: 07/10/17 13:07 Last Admin: 07/10/17 10:17 Dose: 500 mg Docusate Sodium (Colace) 100 mg PO DAILY [facility] Last Admin: 07/10/17 10:14 Dose: 100 mg Ferrous Sulfate (Feosol) 324 mg PO TID [facility] Last Admin: 07/10/17 10:13 Dose: 324 mg Guaifenesin (Robitussin) 100 mg PO Q4H PRN PRN Reason: Cough Last Admin: 07/04/17 06:14 Dose: 100 mg Guaifenesin/Dextromethorphan (Mucinex-Dm 600-30 Mg) 1 tab PO BID [facility] Last Admin: 07/10/17 10:13 Dose: 1 tab Heparin Sodium (Porcine) (Heparin) 5,000 units SC Q12 [facility] PRN Reason: Protocol Last Admin: 07/10/17 10:14 Dose: 5,000 units Home Med (Home Med) 1 unit PO DAILY [facility] Last Admin: 07/10/17 10:14 Dose: 1 unit Metoprolol Tartrate (Lopressor) 25 mg PO TID [facility] Last Admin: 07/10/17 10:13 Dose: 25 mg Multi-Ingredient Cream (Hydrocerin Cream) 1 ea TOP DAILY [facility] Last Admin: 07/10/17 10:14 Dose: 1 u Multivitamins/Minerals (Therapeutic-M Tab) 1 tab PO 0800 [facility] Last Admin: 07/09/17 16:45 Dose: 1 tab Nystatin (Nystop Topical Powder) 1 gm TOP DAILY [facility] Last Admin: 07/09/17 18:41 Dose: 1 applic Polyethylene Glycol (Miralax) 17 gm PO BID [facility] Last Admin: 07/10/17 10:15 Dose: Not Given Zinc Sulfate (Zinc Sulfate 220 Mg Cap) 220 mg PO DAILY [facility] Last Admin: 07/10/17 10:13 Dose: 220 mg - Labs Labs: 07/09/17 07:30 07/09/17 07:30 PT 13.1 SECONDS (9.4-12.5) H 06/15/17 11:00 INR 1.19 (0.93-1.08) H 06/15/17 11:00 APTT 31.3 Seconds (25.1-36.5) 06/15/17 11:00 - Head Exam Head Exam: ATRAUMATIC, NORMAL INSPECTION, NORMOCEPHALIC - Eye Exam Eye Exam: EOMI, Normal appearance, PERRL. absent: Periorbital tenderness Pupil Exam: NORMAL ACCOMODATION, PERRL. absent: Irregular, Unequal - ENT Exam ENT Exam: Mucous Membranes Moist, Normal Exam, Normal Oropharynx - Neck Exam Neck Exam: Full ROM, Normal Inspection. absent: Lymphadenopathy, Thyromegaly - Respiratory Exam Respiratory Exam: Clear to Ausculation Bilateral, NORMAL BREATHING PATTERN. absent: Chest Wall Tenderness, Prolonged Expiratory Phase, Respiratory Distress - Cardiovascular Exam Cardiovascular Exam: REGULAR RHYTHM, +S1, +S2 - GI/Abdominal Exam GI & Abdominal Exam: Soft, Normal Bowel Sounds. absent: Tenderness, Hyperactive Bowel Sounds - Extremities Exam Extremities Exam: Normal Inspection. absent: Full ROM, Joint Swelling, Pedal Edema, Tenderness - Back Exam Back Exam: NORMAL INSPECTION. absent: CVA tenderness (L), CVA tenderness (R), paraspinal tenderness - Neurological Exam Neurological Exam: Alert, Awake, Normal Gait, Oriented x3 - Psychiatric Exam Psychiatric exam: Normal Affect, Normal Mood - Skin Skin Exam: Dry, Intact, Normal Color, Warm Assessment and Plan - Assessment and Plan (Free Text) Assessment: 67 F with a PMHx of asthma, arthritis, and vitamin C deficiency who presents with RLE ulcer/cellulitis and draining right lower extremity ulcer, along with UTI. Plan: 1. RLE cellulitis/ulcer with culture positive for Proteus Mirabilis and beta hemolytic group b strep -Resolved - continue tylenol prn fevers - continue MV/Vitamin C and Zinc -Podiatry consulted, rec's appreciated. -Patient pending placement. Social work advised that we have an accepting facility, [facility]. Social work advised that the acceptance is pending conversation with medicaid corrections caseworker. Social work reviewed earlier conversation with medicaid older adult social work specialist. sister is in agreement with plan at this time.Social work provided number for medicaid older adult social work specialist. Will continue to follow. Patient placement is still pending. Will continue to follow. 2. Dry skin on the lower extremities bilaterally -Continue Eucerin cream applied 3. Headache - continue fioricet PRN 4. Shortness of breath - Chest x-ray clear - Cotinue to encourage Incentive spirometry - Continue Duonebs. Will continue to monitor closely. - O2 Sat >90% on room air. Patient sating at 97 % on room air. -CXR ordered negative. - cont O2 NC PRN 5. Non productive cough -Repeat CXR was negative to active pulmonary disease -Chest CT showed some mild enlarged axillary LN, mild cardiomegaly and mild vascular congestion. -Continue Robutissin. Continuye Mucinex DM . Will continue to monitor closely. 6. Right knee pain - most likely 2/2 to immobility and PT treatment. Resolved. Will continue to monitor. 7. UTI - Completed Azactam course -Repeat urine culture preliminary growing Gram negative rods. Will f/u with final results. -Repeat urine culture showed Klebsiella growth on final read. -Continue Ciprofloxacin 500mg BID ordered for 5 Days for positive Klebsiella cultures. 8. Anemia likely 2/2 iron deficiency anemia - Hg stable -Continue Feosol -trend H/H 9. vitamin C deficiency - continue MV and Vitamin C ordered 10. Depression -Psych consulted. Rec's appreciated. GI/DVT ppx - Heparin - Protonix <Roger Wood - Last Filed: 07/10/17 18:05> Objective - Vital Signs/Intake and Output Vital Signs (last 24 hours): Temp Pulse Resp BP Pulse Ox 97.5 F L 76 18 116/62 94 L 07/10/17 16:00 07/10/17 17:09 07/10/17 16:00 07/10/17 17:09 07/10/17 16:00 Intake and Output: 07/10/17 07/10/17 06:59 18:59 Intake Total 240 780 Balance 240 780 - Medications Medications: Current Medications Acetaminophen (Tylenol 325mg Tab) 650 mg PO Q4 PRN PRN Reason: Fever >100.4 F Last Admin: 07/07/17 17:58 Dose: 650 mg Acetaminophen/Butalbital/Caffeine (Fioricet) 1 tab PO Q4H PRN PRN Reason: Headache Last Admin: 06/29/17 17:42 Dose: 1 tab Albuterol/Ipratropium (Duoneb 3 Mg/0.5 Mg (3 Ml) Ud) 3 ml IH [id number] PRN PRN Reason: Shortness of Breath Last Admin: 07/04/17 07:48 Dose: 3 ml Benzonatate (Tessalon Perles) 100 mg PO TID [facility] Last Admin: 07/10/17 17:09 Dose: 100 mg Docusate Sodium (Colace) 100 mg PO DAILY [facility] Last Admin: 07/10/17 10:14 Dose: 100 mg Ferrous Sulfate (Feosol) 324 mg PO TID [facility] Last Admin: 07/10/17 17:09 Dose: 324 mg Guaifenesin (Robitussin) 100 mg PO Q4H PRN PRN Reason: Cough Last Admin: 07/04/17 06:14 Dose: 100 mg Guaifenesin/Dextromethorphan (Mucinex-Dm 600-30 Mg) 1 tab PO BID [facility] Last Admin: 07/10/17 17:09 Dose: 1 tab Heparin Sodium (Porcine) (Heparin) 5,000 units SC Q12 [facility] PRN Reason: Protocol Last Admin: 07/10/17 10:14 Dose: 5,000 units Home Med (Home Med) 1 unit PO DAILY [facility] Last Admin: 07/10/17 10:14 Dose: 1 unit Metoprolol Tartrate (Lopressor) 25 mg PO TID [facility] Last Admin: 07/10/17 17:09 Dose: 25 mg Multi-Ingredient Cream (Hydrocerin Cream) 1 ea TOP DAILY [facility] Last Admin: 07/10/17 10:14 Dose: 1 u Multivitamins/Minerals (Therapeutic-M Tab) 1 tab PO 0800 [facility] Last Admin: 07/10/17 17:10 Dose: 1 tab Nystatin (Nystop Topical Powder) 1 gm TOP DAILY [facility] Last Admin: 07/10/17 17:10 Dose: 1 applic Polyethylene Glycol (Miralax) 17 gm PO BID [facility] Last Admin: 07/10/17 17:10 Dose: Not Given Zinc Sulfate (Zinc Sulfate 220 Mg Cap) 220 mg PO DAILY [facility] Last Admin: 07/10/17 10:13 Dose: 220 mg - Labs Labs: 07/09/17 07:30 07/09/17 07:30 PT 13.1 SECONDS (9.4-12.5) H 06/15/17 11:00 INR 1.19 (0.93-1.08) H 06/15/17 11:00 APTT 31.3 Seconds (25.1-36.5) 06/15/17 11:00 Attending/Attestation - Attestation I have personally seen and examined this patient.: Yes I have fully participated in the care of the patient.: Yes I have reviewed all pertinent clinical information, including history, physical exam and plan: Yes Notes (Text): 07/10/17 17:59 Attending note; Patient seen and examined with resident. Patient is a 67 year old female with history of asthma, iron deficiency anemia, arthritis, obesity who was admitted for evaluation of bilateral lymphedema and RLE cellulitis with draining ulcer of right ankle. Cellulitis has resolved. Echo revealed normal LVEF. Wound cultures reveal proteus and beta hemolytic group B. Klebsiella UTI; on po ciprofloxn. Patient has completed vancomycin and azactam. psychiatric evaluation appreciated. PT recommended TED. Discussed with CM in detail. Awaiting placement. Upon discharge patient will follow up in [facility] clinic.
--- NOTE | 2017-07-10 16:02 | CP.PCM.PN ---
Subjective - Date & Time of Evaluation Date of Evaluation: 07/10/17 Time of Evaluation: 15:00 - Subjective Subjective: Infectious Disease Follow Up: July 10, 2017 67 yo female presenting with 3 weeks of RLE ulceration, swelling and leaking from the wound as well as multiple falls in the past 3 weeks. The patient has an extensive medical history of asthma, arthritis, vitamin C deficiency, and possible thyroid disease. Draining RLE ulceration... cellulitis improved/resolved. Multiple chronic medical issues. Still with persistent dry cough. Otherwise stable. Mild erythema and excoriation of the folds in the abdomen and under the breasts. Fevers up to 100.8 F two nights ago. Patient making few complaints. The patient has remained in bed. Nursing and aides had noted that the patient's friend "Chris" has encouraged the patient to stay in bed in order to get to a longterm or subacute facility. "Chris" was the person the patient was living with prior to coming to [facility]. Also noted that the patient has had a hacking cough the last couple of days. Afebrile the past [address] scan of chest done. CT shows mild vascular congestion and no infiltrates. No additional issues. Social Issues. UTI with Klebsiella growth. Sensitive to Cipro. On Cipro now. Objective - Vital Signs/Intake and Output Vital Signs (last 24 hours): Temp Pulse Resp BP Pulse Ox 98.4 F 78 18 102/58 L 97 07/10/17 07:30 07/10/17 10:13 07/10/17 07:30 07/10/17 15:32 07/10/17 07:30 Intake and Output: 07/10/17 07/10/17 06:59 18:59 Intake Total 240 780 Balance 240 780 - Medications Medications: Current Medications Acetaminophen (Tylenol 325mg Tab) 650 mg PO Q4 PRN PRN Reason: Fever >100.4 F Last Admin: 07/07/17 17:58 Dose: 650 mg Acetaminophen/Butalbital/Caffeine (Fioricet) 1 tab PO Q4H PRN PRN Reason: Headache Last Admin: 06/29/17 17:42 Dose: 1 tab Albuterol/Ipratropium (Duoneb 3 Mg/0.5 Mg (3 Ml) Ud) 3 ml IH [id number] PRN PRN Reason: Shortness of Breath Last Admin: 07/04/17 07:48 Dose: 3 ml Benzonatate (Tessalon Perles) 100 mg PO TID [facility] Last Admin: 07/10/17 10:13 Dose: 100 mg Docusate Sodium (Colace) 100 mg PO DAILY [facility] Last Admin: 07/10/17 10:14 Dose: 100 mg Ferrous Sulfate (Feosol) 324 mg PO TID [facility] Last Admin: 07/10/17 15:31 Dose: 324 mg Guaifenesin (Robitussin) 100 mg PO Q4H PRN PRN Reason: Cough Last Admin: 07/04/17 06:14 Dose: 100 mg Guaifenesin/Dextromethorphan (Mucinex-Dm 600-30 Mg) 1 tab PO BID [facility] Last Admin: 07/10/17 10:13 Dose: 1 tab Heparin Sodium (Porcine) (Heparin) 5,000 units SC Q12 [facility] PRN Reason: Protocol Last Admin: 07/10/17 10:14 Dose: 5,000 units Home Med (Home Med) 1 unit PO DAILY [facility] Last Admin: 07/10/17 10:14 Dose: 1 unit Metoprolol Tartrate (Lopressor) 25 mg PO TID [facility] Last Admin: 07/10/17 15:32 Dose: Not Given Multi-Ingredient Cream (Hydrocerin Cream) 1 ea TOP DAILY [facility] Last Admin: 07/10/17 10:14 Dose: 1 u Multivitamins/Minerals (Therapeutic-M Tab) 1 tab PO 0800 [facility] Last Admin: 07/09/17 16:45 Dose: 1 tab Nystatin (Nystop Topical Powder) 1 gm TOP DAILY [facility] Last Admin: 07/09/17 18:41 Dose: 1 applic Polyethylene Glycol (Miralax) 17 gm PO BID [facility] Last Admin: 07/10/17 10:15 Dose: Not Given Zinc Sulfate (Zinc Sulfate 220 Mg Cap) 220 mg PO DAILY [facility] Last Admin: 07/10/17 10:13 Dose: 220 mg - Labs Labs: 07/09/17 07:30 07/09/17 07:30 PT 13.1 SECONDS (9.4-12.5) H 06/15/17 11:00 INR 1.19 (0.93-1.08) H 06/15/17 11:00 APTT 31.3 Seconds (25.1-36.5) 06/15/17 11:00 - Constitutional Appears: Non-toxic, No Acute Distress, Chronically Ill - Head Exam Head Exam: ATRAUMATIC, NORMOCEPHALIC - Eye Exam Eye Exam: EOMI, PERRL Pupil Exam: NORMAL ACCOMODATION, PERRL - ENT Exam ENT Exam: Mucous Membranes Moist, Normal External Ear Exam, TM's Normal Bilaterally - Neck Exam Neck Exam: Full ROM, Normal Inspection - Respiratory Exam Respiratory Exam: Clear to Ausculation Bilateral, NORMAL BREATHING PATTERN. absent: Rales, Rhonchi, Wheezes - Cardiovascular Exam Cardiovascular Exam: REGULAR RHYTHM, RRR, +S1, +S2 - GI/Abdominal Exam GI & Abdominal Exam: Distended, Soft, Normal Bowel Sounds. absent: Tenderness - Extremities Exam Extremities Exam: Full ROM, Normal Inspection - Neurological Exam Neurological Exam: Alert, Awake, CN II-XII Intact, Oriented x3 - Psychiatric Exam Psychiatric exam: Normal Affect, Normal Mood - Skin Skin Exam: Intact, Normal Color Assessment and Plan - Assessment and Plan (Free Text) Assessment: 67 yo female with multiple medical issues with PCN allergy diagnosed as a teenager verified by an [employer]. The patient with leukocytosis. Await cultures especially urine cultures. Diabetes and HTN history? Local wound care. Elevated ESR and C-reactive protein. Completed Vancomycin and Aztreonam for antibiotic coverage. UTI with E. coli sensitive to Azactam. Was on Vancomycin for cellulitis IV. For UTI for 5-7 days treatment... completed. Supportive care. Cellulitis appears improved. No new issues. Social issues currently. Homeless at this time. CT scan of chest done. No infiltrates seen. Afebrile the past 24 hours. Mild congestion noted in CT with small pulmonary effusions. No leukocytosis. Slightly elevated procalcitonin (0.66) which is undefined without stronger evidence for pneumonia. When encouraged, she is able to use the incentive spirometer without issues and ambulate with minimal difficulty. UTI with Klebsiella. Sensitive to Cipro. On Cipro for 5 day course at 500mg PO BID. Thank you for allowing me to participate in the care of the patient, we will follow with you.
[2017-07-10] MEDS: Nystatin 100,000 Units/gm Topical Pow(15 gm) TOP SCH (17:10)
[2017-07-10] MEDS: Multivitamin With Minerals Tab PO SCH (17:10)
[2017-07-10 18:19] LABS: HEMOGLOBIN 10.2 g/dL (12.0-16.0); MEAN CELL VOLUME 84.4 fl (80.0-105.0); MEAN CORPUSCULAR HEMOGLOBIN 24.8 pg (25.0-35.0); MEAN CORPUSCULAR HGB CONC 29.4 g/dl (31.0-37.0); MEAN PLATELET VOLUME 8.7 fl (7.0-11.0); RBC 4.11 10^6/uL (3.5-6.1); RED CELL DISTRIBUTION WIDTH 24.1 % (11.5-14.5); WHITE BLOOD COUNT 9.9 10^3/ul (4.5-11.0)
[2017-07-10 18:42] LABS: ALB/GLOB RATIO 0.8 (1.1-1.8); ALBUMIN 3.6 g/dL (3.0-4.8); ALT/SGPT 20 U/L (7-56); AST/SGOT 38 U/L (14-36); BLOOD UREA NITROGEN 19 mg/dL (7-21); CALCIUM 8.1 mg/dL (8.4-10.5); GFR AFRICAN-AMERICAN > 60; GFR NON-AFRICAN AMERICAN 50
[2017-07-11] MEDS: Multivitamin With Minerals Tab PO SCH (08:04)
[2017-07-11] MEDS: guaiFENesin-DM 600-30 mg ER Tab PO SCH ×2 (09:43→17:17)
[2017-07-11] MEDS: Nystatin 100,000 Units/gm Topical Pow(15 gm) TOP SCH (09:45)
[2017-07-11] MEDS: VITAMIN C 500MG PO SCH (09:45)
[2017-07-11] MEDS: Hydrocerin(120 gm) TOP SCH (09:45)
[2017-07-11] MEDS: POLYETHYLENE GLYCOL 3350 17 GM/Dose PACKET PO SCH ×2 (09:45→17:19)
--- NOTE | 2017-07-11 11:27 | CP.PCM.PN ---
<Davey Batista - Last Filed: 07/11/17 11:28> Subjective - Date & Time of Evaluation Date of Evaluation: 07/11/17 Time of Evaluation: 09:15 - Subjective Subjective: Davey Batista DO, PGY-1: Hospitalist Service Patient seen and examined at bedside. Patient denies chest pain, nausea, vomiting, diarrhea, or dyspnea. Nurse reports no events overnight. Objective - Vital Signs/Intake and Output Vital Signs (last 24 hours): Temp Pulse Resp BP Pulse Ox 98.1 F 89 20 128/76 93 L 07/11/17 07:28 07/11/17 09:43 07/11/17 07:28 07/11/17 09:43 07/11/17 07:28 - Medications Medications: Current Medications Acetaminophen (Tylenol 325mg Tab) 650 mg PO Q4 PRN PRN Reason: Fever >100.4 F Last Admin: 07/10/17 22:42 Dose: 650 mg Acetaminophen/Butalbital/Caffeine (Fioricet) 1 tab PO Q4H PRN PRN Reason: Headache Last Admin: 06/29/17 17:42 Dose: 1 tab Albuterol/Ipratropium (Duoneb 3 Mg/0.5 Mg (3 Ml) Ud) 3 ml IH [id number] PRN PRN Reason: Shortness of Breath Last Admin: 07/04/17 07:48 Dose: 3 ml Benzonatate (Tessalon Perles) 100 mg PO TID [facility] Last Admin: 07/11/17 09:44 Dose: 100 mg Ciprofloxacin (Cipro) 500 mg PO Q12 [facility] PRN Reason: Protocol Stop: 07/11/17 18:03 Last Admin: 07/11/17 09:43 Dose: 500 mg Docusate Sodium (Colace) 100 mg PO DAILY [facility] Last Admin: 07/11/17 09:44 Dose: 100 mg Ferrous Sulfate (Feosol) 324 mg PO TID [facility] Last Admin: 07/11/17 09:42 Dose: 324 mg Guaifenesin (Robitussin) 100 mg PO Q4H PRN PRN Reason: Cough Last Admin: 07/04/17 06:14 Dose: 100 mg Guaifenesin/Dextromethorphan (Mucinex-Dm 600-30 Mg) 1 tab PO BID [facility] Last Admin: 07/11/17 09:43 Dose: 1 tab Heparin Sodium (Porcine) (Heparin) 5,000 units SC Q12 [facility] PRN Reason: Protocol Last Admin: 07/11/17 09:44 Dose: 5,000 units Home Med (Home Med) 1 unit PO DAILY [facility] Last Admin: 07/11/17 09:45 Dose: 1 unit Metoprolol Tartrate (Lopressor) 25 mg PO TID [facility] Last Admin: 07/11/17 09:43 Dose: 25 mg Multi-Ingredient Cream (Hydrocerin Cream) 1 ea TOP DAILY [facility] Last Admin: 07/11/17 09:45 Dose: 1 u Multivitamins/Minerals (Therapeutic-M Tab) 1 tab PO 0800 [facility] Last Admin: 07/11/17 08:04 Dose: 1 tab Nystatin (Nystop Topical Powder) 1 gm TOP DAILY [facility] Last Admin: 07/11/17 09:45 Dose: 1 applic Pantoprazole Sodium (Protonix Ec Tab) 40 mg PO 0600 [facility] Polyethylene Glycol (Miralax) 17 gm PO BID [facility] Last Admin: 07/11/17 09:45 Dose: Not Given Zinc Sulfate (Zinc Sulfate 220 Mg Cap) 220 mg PO DAILY [facility] Last Admin: 07/11/17 09:44 Dose: 220 mg - Labs Labs: 07/10/17 18:00 07/10/17 18:00 PT 13.1 SECONDS (9.4-12.5) H 06/15/17 11:00 INR 1.19 (0.93-1.08) H 06/15/17 11:00 APTT 31.3 Seconds (25.1-36.5) 06/15/17 11:00 - Constitutional Appears: Non-toxic, No Acute Distress - Head Exam Head Exam: ATRAUMATIC, NORMOCEPHALIC - Eye Exam Eye Exam: EOMI, Normal appearance - ENT Exam ENT Exam: Mucous Membranes Moist, Normal Oropharynx - Neck Exam Neck Exam: Normal Inspection - Respiratory Exam Respiratory Exam: Clear to Ausculation Bilateral, NORMAL BREATHING PATTERN - Cardiovascular Exam Cardiovascular Exam: RRR, +S1, +S2 - GI/Abdominal Exam GI & Abdominal Exam: Soft, Normal Bowel Sounds - Extremities Exam Extremities Exam: Normal Capillary Refill. absent: Calf Tenderness Additional comments: right lower foot is wrapped, no draining visible. - Back Exam Back Exam: NORMAL INSPECTION. absent: CVA tenderness (L), CVA tenderness (R) - Neurological Exam Neurological Exam: Alert, CN II-XII Intact - Psychiatric Exam Psychiatric exam: Normal Affect, Normal Mood - Skin Skin Exam: Dry, Intact, Normal Color, Warm Assessment and Plan - Assessment and Plan (Free Text) Assessment: 67 F with a PMHx of asthma, arthritis, and vitamin C deficiency who presents with RLE ulcer/cellulitis and draining right lower extremity ulcer, along with UTI. Plan: 1. RLE cellulitis/ulcer with culture positive for Proteus Mirabilis and beta hemolytic group b strep -Resolved - continue tylenol prn fevers - continue MV/Vitamin C and Zinc -Podiatry consulted, rec's appreciated. -Patient pending placement. Social work advised that we have an accepting facility, [facility]. Social work advised that the acceptance is pending conversation with medicaid embedded case manager. Social work reviewed earlier conversation with medicaid social worker masters. sister is in agreement with plan at this time.Social work provided number for medicaid social worker masters. Will continue to follow. Patient placement is still pending. Will continue to follow. 2. Dry skin on the lower extremities bilaterally -Continue Eucerin cream applied 3. Headache - continue fioricet PRN 4. Shortness of breath - Chest x-ray clear - Cotinue to encourage Incentive spirometry - Continue Duonebs. Will continue to monitor closely. - O2 Sat >90% on room air. Patient sating at 97 % on room air. -CXR ordered negative. - cont O2 NC PRN 5. Non productive cough -Repeat CXR was negative to active pulmonary disease -Chest CT showed some mild enlarged axillary LN, mild cardiomegaly and mild vascular congestion. -Continue Robutissin. Continuye Mucinex DM . Will continue to monitor closely. 6. Right knee pain - most likely 2/2 to immobility and PT treatment. Resolved. Will continue to monitor. 7. UTI - Completed Azactam course -Repeat urine culture preliminary growing Gram negative rods. Will f/u with final results. -Repeat urine culture showed Klebsiella growth on final read. -Continue Ciprofloxacin 500mg BID ordered for 5 Days for positive Klebsiella cultures. 8. Anemia likely 2/2 iron deficiency anemia - Hg stable -Continue Feosol -trend H/H 9. vitamin C deficiency - continue MV and Vitamin C ordered 10. Depression -Psych consulted. Rec's appreciated. GI/DVT ppx - Heparin - Protonix <Roger Wood - Last Filed: 07/11/17 12:34> Objective - Vital Signs/Intake and Output Vital Signs (last 24 hours): Temp Pulse Resp BP Pulse Ox 98.1 F 89 20 128/76 93 L 07/11/17 07:28 07/11/17 09:43 07/11/17 07:28 07/11/17 09:43 07/11/17 07:28 - Medications Medications: Current Medications Acetaminophen (Tylenol 325mg Tab) 650 mg PO Q4 PRN PRN Reason: Fever >100.4 F Last Admin: 07/10/17 22:42 Dose: 650 mg Acetaminophen/Butalbital/Caffeine (Fioricet) 1 tab PO Q4H PRN PRN Reason: Headache Last Admin: 06/29/17 17:42 Dose: 1 tab Albuterol/Ipratropium (Duoneb 3 Mg/0.5 Mg (3 Ml) Ud) 3 ml IH [id number] PRN PRN Reason: Shortness of Breath Last Admin: 07/04/17 07:48 Dose: 3 ml Benzonatate (Tessalon Perles) 100 mg PO TID [facility] Last Admin: 07/11/17 09:44 Dose: 100 mg Ciprofloxacin (Cipro) 500 mg PO Q12 [facility] PRN Reason: Protocol Stop: 07/11/17 18:03 Last Admin: 07/11/17 09:43 Dose: 500 mg Docusate Sodium (Colace) 100 mg PO DAILY [facility] Last Admin: 07/11/17 09:44 Dose: 100 mg Ferrous Sulfate (Feosol) 324 mg PO TID [facility] Last Admin: 07/11/17 09:42 Dose: 324 mg Guaifenesin (Robitussin) 100 mg PO Q4H PRN PRN Reason: Cough Last Admin: 07/04/17 06:14 Dose: 100 mg Guaifenesin/Dextromethorphan (Mucinex-Dm 600-30 Mg) 1 tab PO BID [facility] Last Admin: 07/11/17 09:43 Dose: 1 tab Heparin Sodium (Porcine) (Heparin) 5,000 units SC Q12 [facility] PRN Reason: Protocol Last Admin: 07/11/17 09:44 Dose: 5,000 units Home Med (Home Med) 1 unit PO DAILY [facility] Last Admin: 07/11/17 09:45 Dose: 1 unit Metoprolol Tartrate (Lopressor) 25 mg PO TID [facility] Last Admin: 07/11/17 09:43 Dose: 25 mg Multi-Ingredient Cream (Hydrocerin Cream) 1 ea TOP DAILY [facility] Last Admin: 07/11/17 09:45 Dose: 1 u Multivitamins/Minerals (Therapeutic-M Tab) 1 tab PO 0800 [facility] Last Admin: 07/11/17 08:04 Dose: 1 tab Nystatin (Nystop Topical Powder) 1 gm TOP DAILY [facility] Last Admin: 07/11/17 09:45 Dose: 1 applic Pantoprazole Sodium (Protonix Ec Tab) 40 mg PO 0600 [facility] Polyethylene Glycol (Miralax) 17 gm PO BID [facility] Last Admin: 07/11/17 09:45 Dose: Not Given Zinc Sulfate (Zinc Sulfate 220 Mg Cap) 220 mg PO DAILY [facility] Last Admin: 07/11/17 09:44 Dose: 220 mg - Labs Labs: 07/10/17 18:00 07/10/17 18:00 PT 13.1 SECONDS (9.4-12.5) H 06/15/17 11:00 INR 1.19 (0.93-1.08) H 06/15/17 11:00 APTT 31.3 Seconds (25.1-36.5) 06/15/17 11:00 Attending/Attestation - Attestation I have personally seen and examined this patient.: Yes I have fully participated in the care of the patient.: Yes I have reviewed all pertinent clinical information, including history, physical exam and plan: Yes Notes (Text): 07/11/17 12:31 Attending note; Patient seen and examined with resident. Patient is a 67 year old female with history of asthma, iron deficiency anemia, arthritis, obesity who was admitted for evaluation of bilateral lymphedema and RLE cellulitis of right ankle. Cellulitis has resolved. Echo revealed normal LVEF. Wound cultures reveal proteus and beta hemolytic group B. Klebsiella UTI; on po ciprofloxn.Patient has completed vancomycin and azactam. psychiatric evaluation appreciated. PT recommended TED. Discussed with CM in detail. Awaiting placement. Upon discharge patient will follow up in [facility] clinic.
--- NOTE | 2017-07-11 17:49 | CP.PCM.PN ---
Subjective - Date & Time of Evaluation Date of Evaluation: 07/11/17 Time of Evaluation: 17:00 - Subjective Subjective: Infectious Disease Follow Up: July 11, 2017 67 yo female presenting with 3 weeks of RLE ulceration, swelling and leaking from the wound as well as multiple falls in the past 3 weeks. The patient has an extensive medical history of asthma, arthritis, vitamin C deficiency, and possible thyroid disease. Draining RLE ulceration... cellulitis improved/resolved. Multiple chronic medical issues. Still with persistent dry cough. Otherwise stable. Mild erythema and excoriation of the folds in the abdomen and under the breasts. Fevers up to 100.8 F two nights ago. Patient making few complaints. The patient has remained in bed. Nursing and aides had noted that the patient's friend "Chris" has encouraged the patient to stay in bed in order to get to a retirement or subacute facility. "Chris" was the person the patient was living with prior to coming to [facility]. Also noted that the patient has had a hacking cough the last couple of days. Afebrile the several days now. CT scan of chest done. CT shows mild vascular congestion and no infiltrates. No additional issues. Social Issues. UTI with Klebsiella growth. Sensitive to Cipro. On Cipro now. Objective - Vital Signs/Intake and Output Vital Signs (last 24 hours): Temp Pulse Resp BP Pulse Ox 98.1 F 75 20 140/62 93 L 07/11/17 07:28 07/11/17 17:17 07/11/17 07:28 07/11/17 17:17 07/11/17 07:28 - Medications Medications: Current Medications Acetaminophen (Tylenol 325mg Tab) 650 mg PO Q4 PRN PRN Reason: Fever >100.4 F Last Admin: 07/10/17 22:42 Dose: 650 mg Acetaminophen/Butalbital/Caffeine (Fioricet) 1 tab PO Q4H PRN PRN Reason: Headache Last Admin: 06/29/17 17:42 Dose: 1 tab Albuterol/Ipratropium (Duoneb 3 Mg/0.5 Mg (3 Ml) Ud) 3 ml IH [id number] PRN PRN Reason: Shortness of Breath Last Admin: 07/04/17 07:48 Dose: 3 ml Benzonatate (Tessalon Perles) 100 mg PO TID [facility] Last Admin: 12/10/17 17:16 Dose: 100 mg Ciprofloxacin (Cipro) 500 mg PO Q12 [facility] PRN Reason: Protocol Stop: 07/11/17 18:03 Last Admin: 07/11/17 09:43 Dose: 500 mg Docusate Sodium (Colace) 100 mg PO DAILY [facility] Last Admin: 07/11/17 09:44 Dose: 100 mg Ferrous Sulfate (Feosol) 324 mg PO TID [facility] Last Admin: 07/11/17 17:17 Dose: 324 mg Guaifenesin (Robitussin) 100 mg PO Q4H PRN PRN Reason: Cough Last Admin: 07/04/17 06:14 Dose: 100 mg Guaifenesin/Dextromethorphan (Mucinex-Dm 600-30 Mg) 1 tab PO BID [facility] Last Admin: 07/11/17 17:17 Dose: 1 tab Heparin Sodium (Porcine) (Heparin) 5,000 units SC Q12 [facility] PRN Reason: Protocol Last Admin: 07/11/17 09:44 Dose: 5,000 units Home Med (Home Med) 1 unit PO DAILY [facility] Last Admin: 07/11/17 09:45 Dose: 1 unit Metoprolol Tartrate (Lopressor) 25 mg PO TID [facility] Last Admin: 07/11/17 17:17 Dose: 25 mg Multi-Ingredient Cream (Hydrocerin Cream) 1 ea TOP DAILY [facility] Last Admin: 07/11/17 09:45 Dose: 1 u Multivitamins/Minerals (Therapeutic-M Tab) 1 tab PO 0800 [facility] Last Admin: 07/11/17 08:04 Dose: 1 tab Nystatin (Nystop Topical Powder) 1 gm TOP DAILY [facility] Last Admin: 07/11/17 09:45 Dose: 1 applic Pantoprazole Sodium (Protonix Ec Tab) 40 mg PO 0600 [facility] Polyethylene Glycol (Miralax) 17 gm PO BID [facility] Last Admin: 07/11/17 17:19 Dose: Not Given Zinc Sulfate (Zinc Sulfate 220 Mg Cap) 220 mg PO DAILY [facility] Last Admin: 07/11/17 09:44 Dose: 220 mg - Labs Labs: 07/10/17 18:00 07/10/17 18:00 PT 13.1 SECONDS (9.4-12.5) H 06/15/17 11:00 INR 1.19 (0.93-1.08) H 06/15/17 11:00 APTT 31.3 Seconds (25.1-36.5) 06/15/17 11:00 - Constitutional Appears: Non-toxic, No Acute Distress, Chronically Ill - Head Exam Head Exam: ATRAUMATIC, NORMOCEPHALIC - Eye Exam Eye Exam: EOMI, PERRL Pupil Exam: NORMAL ACCOMODATION, PERRL - ENT Exam ENT Exam: Mucous Membranes Moist, Normal External Ear Exam, TM's Normal Bilaterally - Neck Exam Neck Exam: Full ROM, Normal Inspection - Respiratory Exam Respiratory Exam: Clear to Ausculation Bilateral, NORMAL BREATHING PATTERN. absent: Rales, Rhonchi, Wheezes - Cardiovascular Exam Cardiovascular Exam: REGULAR RHYTHM, RRR, +S1, +S2 - GI/Abdominal Exam GI & Abdominal Exam: Soft, Normal Bowel Sounds. absent: Distended, Tenderness - Extremities Exam Extremities Exam: Full ROM, Normal Inspection - Neurological Exam Neurological Exam: Alert, Awake, CN II-XII Intact, Oriented x3 - Psychiatric Exam Psychiatric exam: Normal Affect, Normal Mood - Skin Skin Exam: Intact, Normal Color Assessment and Plan - Assessment and Plan (Free Text) Assessment: 67 yo female with multiple medical issues with PCN allergy diagnosed as a teenager verified by an [employer]. The patient with leukocytosis. Await cultures especially urine cultures. Diabetes and HTN history? Local wound care. Elevated ESR and C-reactive protein. Completed Vancomycin and Aztreonam for antibiotic coverage. UTI with E. coli sensitive to Azactam. Was on Vancomycin for cellulitis IV. For UTI for 5-7 days treatment... completed. Supportive care. Cellulitis appears improved. No new issues. Social issues currently. Homeless at this time. CT scan of chest done. No infiltrates seen. Afebrile the past 24 hours. Mild congestion noted in CT with small pulmonary effusions. No leukocytosis. Slightly elevated procalcitonin (0.66) which is undefined without stronger evidence for pneumonia. When encouraged, she is able to use the incentive spirometer without issues and ambulate with minimal difficulty. UTI with Klebsiella. Sensitive to Cipro. On Cipro for 5 day course at 500mg PO BID. Nearing completion of the antibiotic course. Thank you for allowing me to participate in the care of the patient, we will follow with you.
[2017-07-12 08:14] LABS: BASO # 0.06 K/mm3 (0.0-2.0); BASO % 0.6 % (0.0-3.0); EOS % 10.3 % (1.5-5.0); GRAN # 5.85 (1.4-6.5); GRAN % 61.4 % (50.0-68.0); LYMPH # 1.9 (1.2-3.4); LYMPH % 19.4 % (22.0-35.0); MEAN CELL VOLUME 83.2 fl (80.0-105.0); MEAN CORPUSCULAR HEMOGLOBIN 24.4 pg (25.0-35.0); MEAN CORPUSCULAR HGB CONC 29.3 g/dl (31.0-37.0); MEAN PLATELET VOLUME 8.6 fl (7.0-11.0); MONO # 0.8 (0.1-0.6); MONO % 8.3 % (1.0-6.0); RBC 3.69 10^6/uL (3.5-6.1); RED CELL DISTRIBUTION WIDTH 23.8 % (11.5-14.5); WHITE BLOOD COUNT 9.5 10^3/ul (4.5-11.0)
[2017-07-12 08:27] LABS: ALB/GLOB RATIO 0.8 (1.1-1.8); ALBUMIN 3.1 g/dL (3.0-4.8); ALT/SGPT 22 U/L (7-56); AST/SGOT 30 U/L (14-36); BLOOD UREA NITROGEN 16 mg/dL (7-21); GFR AFRICAN-AMERICAN > 60; GFR NON-AFRICAN AMERICAN > 60
[2017-07-12] MEDS ORDERED: Potassium Chloride 20 mEq ER Tab PO ONE ×2 (09:15→11:30)
[2017-07-12] MEDS: guaiFENesin-DM 600-30 mg ER Tab PO SCH ×2 (09:32→18:13)
[2017-07-12] MEDS: Hydrocerin(120 gm) TOP SCH (09:32)
[2017-07-12] MEDS: Nystatin 100,000 Units/gm Topical Pow(15 gm) TOP SCH (09:32)
[2017-07-12] MEDS: POLYETHYLENE GLYCOL 3350 17 GM/Dose PACKET PO SCH ×2 (10:00→18:13)
[2017-07-12] MEDS: VITAMIN C 500MG PO SCH (10:00)
--- NOTE | 2017-07-12 12:47 | CP.PCM.PN ---
<Yonatan Rodriguez - Last Filed: 07/12/17 16:01> Subjective - Date & Time of Evaluation Date of Evaluation: 07/12/17 Time of Evaluation: 08:45 - Subjective Subjective: Patient seen and examined at bedside. The patient reports a dry cough. The patient denies any chest pain, nausea, vomiting, fevers, chills, lightheadedness , dizziness, changes in vision, syncopal episodes, abdominal pain, or any other complaints. Objective - Vital Signs/Intake and Output Vital Signs (last 24 hours): Temp Pulse Resp BP Pulse Ox 98.6 F 114 H 20 147/76 94 L 07/12/17 08:00 07/12/17 11:54 07/12/17 08:00 07/12/17 09:33 07/12/17 11:54 Intake and Output: 07/12/17 07/12/17 06:59 18:59 Intake Total 300 Balance 300 - Medications Medications: Current Medications Acetaminophen (Tylenol 325mg Tab) 650 mg PO Q4 PRN PRN Reason: Fever >100.4 F Last Admin: 07/10/17 22:42 Dose: 650 mg Acetaminophen/Butalbital/Caffeine (Fioricet) 1 tab PO Q4H PRN PRN Reason: Headache Last Admin: 06/29/17 17:42 Dose: 1 tab Albuterol/Ipratropium (Duoneb 3 Mg/0.5 Mg (3 Ml) Ud) 3 ml IH [id number] PRN PRN Reason: Shortness of Breath Last Admin: 07/04/17 07:48 Dose: 3 ml Benzonatate (Tessalon Perles) 100 mg PO TID [facility] Last Admin: 07/12/17 09:32 Dose: 100 mg Ciprofloxacin (Cipro) 500 mg PO Q12 [facility] PRN Reason: Protocol Stop: 07/13/17 12:43 Docusate Sodium (Colace) 100 mg PO DAILY [facility] Last Admin: 07/11/17 09:44 Dose: 100 mg Ferrous Sulfate (Feosol) 324 mg PO TID [facility] Last Admin: 07/12/17 09:33 Dose: 324 mg Guaifenesin (Robitussin) 100 mg PO Q4H PRN PRN Reason: Cough Last Admin: 07/04/17 06:14 Dose: 100 mg Guaifenesin/Dextromethorphan (Mucinex-Dm 600-30 Mg) 1 tab PO BID [facility] Last Admin: 07/11/17 17:17 Dose: 1 tab Heparin Sodium (Porcine) (Heparin) 5,000 units SC Q12 [facility] PRN Reason: Protocol Last Admin: 07/12/17 09:30 Dose: 5,000 units Home Med (Home Med) 1 unit PO DAILY [facility] Last Admin: 07/11/17 09:45 Dose: 1 unit Metoprolol Tartrate (Lopressor) 25 mg PO TID [facility] Last Admin: 07/12/17 09:33 Dose: 25 mg Multi-Ingredient Cream (Hydrocerin Cream) 1 ea TOP DAILY [facility] Last Admin: 07/12/17 09:32 Dose: 1 u Multivitamins/Minerals (Therapeutic-M Tab) 1 tab PO 0800 [facility] Last Admin: 07/11/17 08:04 Dose: 1 tab Nystatin (Nystop Topical Powder) 1 gm TOP DAILY [facility] Last Admin: 07/12/17 09:32 Dose: 1 applic Pantoprazole Sodium (Protonix Ec Tab) 40 mg PO 0600 [facility] Polyethylene Glycol (Miralax) 17 gm PO BID [facility] Last Admin: 07/11/17 17:19 Dose: Not Given Zinc Sulfate (Zinc Sulfate 220 Mg Cap) 220 mg PO DAILY [facility] Last Admin: 07/12/17 09:32 Dose: 220 mg - Labs Labs: 07/12/17 07:30 07/12/17 07:30 PT 13.1 SECONDS (9.4-12.5) H 06/15/17 11:00 INR 1.19 (0.93-1.08) H 06/15/17 11:00 APTT 31.3 Seconds (25.1-36.5) 06/15/17 11:00 - Head Exam Head Exam: ATRAUMATIC, NORMAL INSPECTION, NORMOCEPHALIC - Eye Exam Eye Exam: EOMI, Normal appearance, PERRL Pupil Exam: NORMAL ACCOMODATION, PERRL. absent: Irregular, Unequal - ENT Exam ENT Exam: Mucous Membranes Moist, Normal Oropharynx - Neck Exam Neck Exam: absent: Lymphadenopathy, Thyromegaly - Respiratory Exam Respiratory Exam: Clear to Ausculation Bilateral, NORMAL BREATHING PATTERN. absent: Chest Wall Tenderness, Prolonged Expiratory Phase, Respiratory Distress - Cardiovascular Exam Cardiovascular Exam: REGULAR RHYTHM, RRR, +S1, +S2. absent: Gallop, Rubs - GI/Abdominal Exam GI & Abdominal Exam: Soft, Normal Bowel Sounds - Extremities Exam Extremities Exam: Full ROM. absent: Joint Swelling, Pedal Edema, Tenderness - Back Exam Back Exam: NORMAL INSPECTION. absent: CVA tenderness (L), CVA tenderness (R), paraspinal tenderness - Neurological Exam Neurological Exam: Alert, Awake, CN II-XII Intact, Normal Gait, Oriented x3 - Psychiatric Exam Psychiatric exam: Normal Affect, Normal Mood. absent: Depressed, Flat Affect - Skin Skin Exam: Dry, Intact, Normal Color Assessment and Plan - Assessment and Plan (Free Text) Plan: 1. RLE cellulitis/ulcer with culture positive for Proteus Mirabilis and beta hemolytic group b strep -Resolved - continue tylenol prn fevers - continue MV/Vitamin C and Zinc -Podiatry consulted, rec's appreciated. -Patient pending placement. Social work advised that we have an accepting facility, [place] in [facility]. Social work advised that the acceptance is pending conversation with medicaid renal case manager. Social work reviewed earlier conversation with medicaid executive secretary social welfare. sister is in agreement with plan at this time.Social work provided number for medicaid executive secretary social welfare. Will continue to follow. Patient placement is still pending. Will continue to follow. 2. Dry skin on the lower extremities bilaterally -Continue Eucerin cream applied 3. Headache - continue fioricet PRN 4. Shortness of breath - Chest x-ray clear - Cotinue to encourage Incentive spirometry - Continue Duonebs. Will continue to monitor closely. - O2 Sat >90% on room air. Patient sating at 97 % on room air. -CXR ordered negative. - cont O2 NC PRN 5. Non productive cough -Repeat CXR was negative to active pulmonary disease -Chest CT showed some mild enlarged axillary LN, mild cardiomegaly and mild vascular congestion. -Continue Robutissin. Continuye Mucinex DM . Will continue to monitor closely. 6. Right knee pain - most likely 2/2 to immobility and PT treatment. Resolved. Will continue to monitor. 7. UTI - Completed Azactam course -Repeat urine culture preliminary growing Gram negative rods. Will f/u with final results. -Repeat urine culture showed Klebsiella growth on final read. -Continue Ciprofloxacin 500mg BID ordered for 5 Days for positive Klebsiella cultures. 8. Anemia likely 2/2 iron deficiency anemia - Hg stable -Continue Feosol -trend H/H 9. vitamin C deficiency - continue MV and Vitamin C ordered 10. Depression -Psych consulted. Rec's appreciated. GI/DVT ppx - Heparin - Protonix <Urbano Wooda - Last Filed: 07/12/17 17:30> Objective - Vital Signs/Intake and Output Vital Signs (last 24 hours): Temp Pulse Resp BP Pulse Ox 98.4 F 80 21 138/75 98 07/12/17 16:00 07/12/17 16:00 07/12/17 16:00 07/12/17 16:00 07/12/17 16:00 Intake and Output: 07/12/17 07/12/17 06:59 18:59 Intake Total 300 Balance 300 - Medications Medications: Current Medications Acetaminophen (Tylenol 325mg Tab) 650 mg PO Q4 PRN PRN Reason: Fever >100.4 F Last Admin: 07/10/17 22:42 Dose: 650 mg Acetaminophen/Butalbital/Caffeine (Fioricet) 1 tab PO Q4H PRN PRN Reason: Headache Last Admin: 06/29/17 17:42 Dose: 1 tab Albuterol/Ipratropium (Duoneb 3 Mg/0.5 Mg (3 Ml) Ud) 3 ml IH [id number] PRN PRN Reason: Shortness of Breath Last Admin: 07/04/17 07:48 Dose: 3 ml Benzonatate (Tessalon Perles) 100 mg PO TID [facility] Last Admin: 07/12/17 14:00 Dose: 100 mg Ciprofloxacin (Cipro) 500 mg PO Q12 [facility] PRN Reason: Protocol Stop: 07/13/17 12:43 Last Admin: 07/12/17 12:53 Dose: 500 mg Docusate Sodium (Colace) 100 mg PO DAILY [facility] Last Admin: 07/12/17 10:00 Dose: Not Given Ferrous Sulfate (Feosol) 324 mg PO TID [facility] Last Admin: 07/12/17 14:00 Dose: 324 mg Guaifenesin (Robitussin) 100 mg PO Q4H PRN PRN Reason: Cough Last Admin: 07/04/17 06:14 Dose: 100 mg Guaifenesin/Dextromethorphan (Mucinex-Dm 600-30 Mg) 1 tab PO BID [facility] Last Admin: 07/12/17 09:32 Dose: 1 tab Heparin Sodium (Porcine) (Heparin) 5,000 units SC Q12 [facility] PRN Reason: Protocol Last Admin: 07/12/17 09:30 Dose: 5,000 units Home Med (Home Med) 1 unit PO DAILY [facility] Last Admin: 07/12/17 10:00 Dose: 1 unit Metoprolol Tartrate (Lopressor) 25 mg PO TID [facility] Last Admin: 07/12/17 13:59 Dose: 25 mg Multi-Ingredient Cream (Hydrocerin Cream) 1 ea TOP DAILY [facility] Last Admin: 07/12/17 09:32 Dose: 1 u Multivitamins/Minerals (Therapeutic-M Tab) 1 tab PO 0800 [facility] Last Admin: 07/12/17 12:51 Dose: 1 tab Nystatin (Nystop Topical Powder) 1 gm TOP DAILY [facility] Last Admin: 07/12/17 09:32 Dose: 1 applic Pantoprazole Sodium (Protonix Ec Tab) 40 mg PO 0600 [facility] Polyethylene Glycol (Miralax) 17 gm PO BID [facility] Last Admin: 07/12/17 10:00 Dose: Not Given Zinc Sulfate (Zinc Sulfate 220 Mg Cap) 220 mg PO DAILY [facility] Last Admin: 07/12/17 09:32 Dose: 220 mg - Labs Labs: 07/12/17 07:30 07/12/17 07:30 PT 13.1 SECONDS (9.4-12.5) H 06/15/17 11:00 INR 1.19 (0.93-1.08) H 06/15/17 11:00 APTT 31.3 Seconds (25.1-36.5) 06/15/17 11:00 Attending/Attestation - Attestation I have personally seen and examined this patient.: Yes I have fully participated in the care of the patient.: Yes I have reviewed all pertinent clinical information, including history, physical exam and plan: Yes Notes (Text): 07/12/17 17:30 Attending note; Patient seen and examined with resident. Patient is a 67 year old female with history of asthma, iron deficiency anemia, arthritis, obesity who was admitted for evaluation of bilateral lymphedema and RLE cellulitis of right ankle. Cellulitis has resolved. Echo revealed normal LVEF. Wound cultures reveal proteus and beta hemolytic group B. Klebsiella UTI; on po ciprofloxn.Patient has completed vancomycin and azactam. psychiatric evaluation appreciated. PT recommended TED. executive secretary social welfare evaluation appreciated. Awaiting placement. Upon discharge patient [place] [facility]
[2017-07-12] MEDS: Multivitamin With Minerals Tab PO SCH (12:51)
--- NOTE | 2017-07-12 18:22 | CP.PCM.PN ---
Subjective - Date & Time of Evaluation Date of Evaluation: 07/12/17 Time of Evaluation: 17:00 - Subjective Subjective: Infectious Disease Follow Up: July 12, 2017 67 yo female presenting with 3 weeks of RLE ulceration, swelling and leaking from the wound as well as multiple falls in the past 3 weeks. The patient has an extensive medical history of asthma, arthritis, vitamin C deficiency, and possible thyroid disease. Draining RLE ulceration... cellulitis improved/resolved. Multiple chronic medical issues. Still with persistent dry cough. Otherwise stable. Mild erythema and excoriation of the folds in the abdomen and under the breasts. Fevers up to 100.8 F two nights ago. Patient making few complaints. The patient has remained in bed. Nursing and aides had noted that the patient's friend "Chris" has encouraged the patient to stay in bed in order to get to a group home or subacute facility. "Chris" was the person the patient was living with prior to coming to [facility] [place]. Also noted that the patient has had a hacking cough the last couple of days. Afebrile the several days now. CT scan of chest done. CT shows mild vascular congestion and no infiltrates. No additional issues. Social Issues. UTI with Klebsiella growth. Sensitive to Cipro. On Cipro now. Objective - Vital Signs/Intake and Output Vital Signs (last 24 hours): Temp Pulse Resp BP Pulse Ox 98.4 F 80 21 138/75 98 07/12/17 16:00 07/12/17 16:00 07/12/17 16:00 07/12/17 16:00 07/12/17 16:00 Intake and Output: 07/12/17 07/12/17 06:59 18:59 Intake Total 300 Balance 300 - Medications Medications: Current Medications Acetaminophen (Tylenol 325mg Tab) 650 mg PO Q4 PRN PRN Reason: Fever >100.4 F Last Admin: 07/10/17 22:42 Dose: 650 mg Acetaminophen/Butalbital/Caffeine (Fioricet) 1 tab PO Q4H PRN PRN Reason: Headache Last Admin: 06/29/17 17:42 Dose: 1 tab Albuterol/Ipratropium (Duoneb 3 Mg/0.5 Mg (3 Ml) Ud) 3 ml IH [id number] PRN PRN Reason: Shortness of Breath Last Admin: 07/04/17 07:48 Dose: 3 ml Benzonatate (Tessalon Perles) 100 mg PO TID [facility] Last Admin: 07/12/17 14:00 Dose: 100 mg Ciprofloxacin (Cipro) 500 mg PO Q12 [facility] PRN Reason: Protocol Stop: 07/13/17 12:43 Last Admin: 07/12/17 12:53 Dose: 500 mg Docusate Sodium (Colace) 100 mg PO DAILY [facility] Last Admin: 07/12/17 10:00 Dose: Not Given Ferrous Sulfate (Feosol) 324 mg PO TID [facility] Last Admin: 07/12/17 14:00 Dose: 324 mg Guaifenesin (Robitussin) 100 mg PO Q4H PRN PRN Reason: Cough Last Admin: 07/04/17 06:14 Dose: 100 mg Guaifenesin/Dextromethorphan (Mucinex-Dm 600-30 Mg) 1 tab PO BID [facility] Last Admin: 07/12/17 09:32 Dose: 1 tab Heparin Sodium (Porcine) (Heparin) 5,000 units SC Q12 [facility] PRN Reason: Protocol Last Admin: 07/12/17 09:30 Dose: 5,000 units Home Med (Home Med) 1 unit PO DAILY [facility] Last Admin: 07/12/17 10:00 Dose: 1 unit Metoprolol Tartrate (Lopressor) 25 mg PO TID [facility] Last Admin: 07/12/17 13:59 Dose: 25 mg Multi-Ingredient Cream (Hydrocerin Cream) 1 ea TOP DAILY [facility] Last Admin: 07/12/17 09:32 Dose: 1 u Multivitamins/Minerals (Therapeutic-M Tab) 1 tab PO 0800 [facility] Last Admin: 07/12/17 12:51 Dose: 1 tab Nystatin (Nystop Topical Powder) 1 gm TOP DAILY [facility] Last Admin: 07/12/17 09:32 Dose: 1 applic Pantoprazole Sodium (Protonix Ec Tab) 40 mg PO 0600 [facility] Polyethylene Glycol (Miralax) 17 gm PO BID [facility] Last Admin: 07/12/17 10:00 Dose: Not Given Zinc Sulfate (Zinc Sulfate 220 Mg Cap) 220 mg PO DAILY [facility] Last Admin: 07/12/17 09:32 Dose: 220 mg - Labs Labs: 07/12/17 07:30 07/12/17 07:30 PT 13.1 SECONDS (9.4-12.5) H 11/14/17 11:00 INR 1.19 (0.93-1.08) H 06/15/17 11:00 APTT 31.3 Seconds (25.1-36.5) 06/15/17 11:00 - Constitutional Appears: Non-toxic, No Acute Distress, Chronically Ill - Head Exam Head Exam: ATRAUMATIC, NORMOCEPHALIC - Eye Exam Eye Exam: EOMI, PERRL Pupil Exam: NORMAL ACCOMODATION, PERRL - ENT Exam ENT Exam: Mucous Membranes Moist, Normal External Ear Exam, TM's Normal Bilaterally - Neck Exam Neck Exam: Full ROM, Normal Inspection - Respiratory Exam Respiratory Exam: Clear to Ausculation Bilateral, NORMAL BREATHING PATTERN. absent: Rales, Rhonchi, Wheezes - Cardiovascular Exam Cardiovascular Exam: REGULAR RHYTHM, RRR, +S1, +S2 - GI/Abdominal Exam GI & Abdominal Exam: Soft, Normal Bowel Sounds. absent: Distended, Tenderness - Extremities Exam Extremities Exam: Full ROM, Normal Inspection - Neurological Exam Neurological Exam: Alert, Awake, CN II-XII Intact, Oriented x3 - Psychiatric Exam Psychiatric exam: Normal Affect, Normal Mood - Skin Skin Exam: Intact, Normal Color Assessment and Plan - Assessment and Plan (Free Text) Assessment: 67 yo female with multiple medical issues with PCN allergy diagnosed as a teenager verified by an [employer]. The patient with leukocytosis. Await cultures especially urine cultures. Diabetes and HTN history? Local wound care. Elevated ESR and C-reactive protein. Completed Vancomycin and Aztreonam for antibiotic coverage. UTI with E. coli sensitive to Azactam. Was on Vancomycin for cellulitis IV. For UTI for 5-7 days treatment... completed. Supportive care. Cellulitis appears improved. No new issues. Social issues currently. Homeless at this time. CT scan of chest done. No infiltrates seen. Afebrile the past 24 hours. Mild congestion noted in CT with small pulmonary effusions. No leukocytosis. Slightly elevated procalcitonin (0.66) which is undefined without stronger evidence for pneumonia. When encouraged, she is able to use the incentive spirometer without issues and ambulate with minimal difficulty. UTI with Klebsiella. Sensitive to Cipro. Was on Cipro for 5 day course at 500mg PO BID. Completed the antibiotic course. Thank you for allowing me to participate in the care of the patient, we will follow with you.
[2017-07-13] MEDS: Pantoprazole 40 mg EC Tab PO SCH (05:31)
[2017-07-13 06:53] LABS: BASO # 0.06 K/mm3 (0.0-2.0); BASO % 0.6 % (0.0-3.0); EOS # 0.9 (0.0-0.7); EOS % 9.4 % (1.5-5.0); GRAN # 6.37 (1.4-6.5); HEMOGLOBIN 8.9 g/dL (12.0-16.0); LYMPH # 1.6 (1.2-3.4); LYMPH % 16.5 % (22.0-35.0); MEAN CORPUSCULAR HGB CONC 28.9 g/dl (31.0-37.0); MEAN PLATELET VOLUME 8.7 fl (7.0-11.0); MONO % 9.5 % (1.0-6.0); RBC 3.71 10^6/uL (3.5-6.1); RED CELL DISTRIBUTION WIDTH 24.2 % (11.5-14.5)
[2017-07-13 07:33] LABS: ALB/GLOB RATIO 0.7 (1.1-1.8); ALBUMIN 2.9 g/dL (3.0-4.8); ALT/SGPT 16 U/L (7-56); AST/SGOT 34 U/L (14-36); BLOOD UREA NITROGEN 17 mg/dL (7-21); CALCIUM 8.1 mg/dL (8.4-10.5); GFR AFRICAN-AMERICAN > 60; GFR NON-AFRICAN AMERICAN 55
[2017-07-13] MEDS ORDERED: Potassium Chloride 20 mEq ER Tab PO ONE ×2 (08:31→14:00)
[2017-07-13] MEDS: Nystatin 100,000 Units/gm Topical Pow(15 gm) TOP SCH (10:50)
[2017-07-13] MEDS: POLYETHYLENE GLYCOL 3350 17 GM/Dose PACKET PO SCH ×2 (10:50→18:00)
[2017-07-13] MEDS: guaiFENesin-DM 600-30 mg ER Tab PO SCH ×2 (10:50→18:00)
[2017-07-13] MEDS: Hydrocerin(120 gm) TOP SCH (10:50)
[2017-07-13] MEDS: VITAMIN C 500MG PO SCH (10:53)
[2017-07-13] MEDS: Multivitamin With Minerals Tab PO SCH (10:53)
--- NOTE | 2017-07-13 12:04 | CP.PCM.PN ---
Subjective - Date & Time of Evaluation Date of Evaluation: 07/13/17 Time of Evaluation: 12:00 - Subjective Subjective: Infectious Disease Follow Up: July 13, 2017 67 yo female presenting with 3 weeks of RLE ulceration, swelling and leaking from the wound as well as multiple falls in the past 3 weeks. The patient has an extensive medical history of asthma, arthritis, vitamin C deficiency, and possible thyroid disease. Draining RLE ulceration... cellulitis improved/resolved. Multiple chronic medical issues. Still with persistent dry cough. Otherwise stable. Mild erythema and excoriation of the folds in the abdomen and under the breasts. Fevers up to 100.8 F two nights ago. Patient making few complaints. The patient has remained in bed. Nursing and aides had noted that the patient's friend "Chris" has encouraged the patient to stay in bed in order to get to a [place] [facility] [place] facility or subacute facility. "Chris" was the person the patient was living with prior to coming to [facility]. Also noted that the patient has had a hacking cough the last couple of days. Afebrile the several days now. CT scan of chest done. CT shows mild vascular congestion and no infiltrates. No additional issues. Social Issues. UTI with Klebsiella growth. Sensitive to Cipro. On Cipro now. Objective - Vital Signs/Intake and Output Vital Signs (last 24 hours): Temp Pulse Resp BP Pulse Ox 97.8 F 87 20 114/65 95 07/13/17 08:00 07/13/17 11:39 07/13/17 08:00 07/13/17 10:47 07/13/17 11:39 Intake and Output: 07/13/17 07/13/17 06:59 18:59 Intake Total 720 Output Total 0 Balance 720 - Medications Medications: Current Medications Acetaminophen (Tylenol 325mg Tab) 650 mg PO Q4 PRN PRN Reason: Fever >100.4 F Last Admin: 07/10/17 22:42 Dose: 650 mg Acetaminophen/Butalbital/Caffeine (Fioricet) 1 tab PO Q4H PRN PRN Reason: Headache Last Admin: 06/29/17 17:42 Dose: 1 tab Albuterol/Ipratropium (Duoneb 3 Mg/0.5 Mg (3 Ml) Ud) 3 ml IH [id number] PRN PRN Reason: Shortness of Breath Last Admin: 07/04/17 07:48 Dose: 3 ml Benzonatate (Tessalon Perles) 100 mg PO TID [facility] Last Admin: 07/13/17 10:47 Dose: 100 mg Ciprofloxacin (Cipro) 500 mg PO Q12 [facility] PRN Reason: Protocol Stop: 07/13/17 12:43 Last Admin: 07/13/17 10:47 Dose: 500 mg Docusate Sodium (Colace) 100 mg PO DAILY [facility] Last Admin: 07/13/17 10:49 Dose: Not Given Ferrous Sulfate (Feosol) 324 mg PO TID [facility] Last Admin: 07/13/17 10:48 Dose: 324 mg Guaifenesin (Robitussin) 100 mg PO Q4H PRN PRN Reason: Cough Last Admin: 07/04/17 06:14 Dose: 100 mg Guaifenesin/Dextromethorphan (Mucinex-Dm 600-30 Mg) 1 tab PO BID [facility] Last Admin: 07/13/17 10:50 Dose: 1 tab Heparin Sodium (Porcine) (Heparin) 5,000 units SC Q12 [facility] PRN Reason: Protocol Last Admin: 07/13/17 10:47 Dose: 5,000 units Home Med (Home Med) 1 unit PO DAILY [facility] Last Admin: 07/13/17 10:53 Dose: 1 unit Metoprolol Tartrate (Lopressor) 25 mg PO TID [facility] Last Admin: 07/13/17 10:47 Dose: 25 mg Multi-Ingredient Cream (Hydrocerin Cream) 1 ea TOP DAILY [facility] Last Admin: 07/13/17 10:50 Dose: 1 u Multivitamins/Minerals (Therapeutic-M Tab) 1 tab PO 0800 [facility] Last Admin: 07/13/17 10:53 Dose: 1 tab Nystatin (Nystop Topical Powder) 1 gm TOP DAILY [facility] Last Admin: 07/13/17 10:50 Dose: 1 applic Pantoprazole Sodium (Protonix Ec Tab) 40 mg PO 0600 [facility] Last Admin: 07/13/17 05:31 Dose: 40 mg Polyethylene Glycol (Miralax) 17 gm PO BID [facility] Last Admin: 07/13/17 10:50 Dose: Not Given Potassium Chloride (K-Dur 20 Meq Er Tab) 20 meq PO ONCE ONE Stop: 07/13/17 14:01 Zinc Sulfate (Zinc Sulfate 220 Mg Cap) 220 mg PO DAILY [facility] Last Admin: 07/13/17 10:53 Dose: 220 mg - Labs Labs: 07/13/17 06:15 07/13/17 06:15 PT 13.1 SECONDS (9.4-12.5) H 06/15/17 11:00 INR 1.19 (0.93-1.08) H 06/15/17 11:00 APTT 31.3 Seconds (25.1-36.5) 06/15/17 11:00 - Constitutional Appears: Non-toxic, No Acute Distress, Chronically Ill - Head Exam Head Exam: ATRAUMATIC, NORMOCEPHALIC - Eye Exam Eye Exam: EOMI, PERRL Pupil Exam: NORMAL ACCOMODATION, PERRL - ENT Exam ENT Exam: Mucous Membranes Moist, Normal External Ear Exam, TM's Normal Bilaterally - Respiratory Exam Respiratory Exam: Clear to Ausculation Bilateral, NORMAL BREATHING PATTERN. absent: Decreased Breath Sounds, Rhonchi, Wheezes - Cardiovascular Exam Cardiovascular Exam: REGULAR RHYTHM, RRR, +S1, +S2 - GI/Abdominal Exam GI & Abdominal Exam: Soft, Normal Bowel Sounds. absent: Distended, Tenderness - Extremities Exam Extremities Exam: Full ROM, Normal Inspection - Neurological Exam Neurological Exam: Alert, Awake, CN II-XII Intact, Oriented x3 - Psychiatric Exam Psychiatric exam: Normal Affect, Normal Mood - Skin Skin Exam: Intact, Normal Color Assessment and Plan - Assessment and Plan (Free Text) Assessment: 67 yo female with multiple medical issues with PCN allergy diagnosed as a teenager verified by an [employer]. The patient with leukocytosis. Await cultures especially urine cultures. Diabetes and HTN history? Local wound care. Elevated ESR and C-reactive protein. Completed Vancomycin and Aztreonam for antibiotic coverage. UTI with E. coli sensitive to Azactam. Was on Vancomycin for cellulitis IV. For UTI for 5-7 days treatment... completed. Supportive care. Cellulitis appears improved. No new issues. Social issues currently. Homeless at this time. CT scan of chest done. No infiltrates seen. Afebrile the past 24 hours. Mild congestion noted in CT with small pulmonary effusions. No leukocytosis. Slightly elevated procalcitonin (0.66) which is undefined without stronger evidence for pneumonia. When encouraged, she is able to use the incentive spirometer without issues and ambulate with minimal difficulty. UTI with Klebsiella. Sensitive to Cipro. Was on Cipro for 5 day course at 500mg PO BID. Completing the antibiotic course. Thank you for allowing me to participate in the care of the patient, we will follow with you.
--- NOTE | 2017-07-13 14:46 | CP.PCM.PN ---
<Yonatan Rodriguez - Last Filed: 07/13/17 16:27> Subjective - Date & Time of Evaluation Date of Evaluation: 07/13/17 Time of Evaluation: 09:44 - Subjective Subjective: Patient seen and examined at bedside. Per nursing no acute events occurred overnight. The patient still reports a dry cough and some right knee pain. The patient denies any chest pain, nausea, vomiting, chills, lightheadedness, dizziness, abdominal pain, or any other complaints. Objective - Vital Signs/Intake and Output Vital Signs (last 24 hours): Temp Pulse Resp BP Pulse Ox 97.8 F 87 20 114/65 95 07/13/17 08:00 07/13/17 11:39 07/13/17 08:00 07/13/17 10:47 07/13/17 11:39 Intake and Output: 07/13/17 07/13/17 06:59 18:59 Intake Total 720 Output Total 0 Balance 720 - Medications Medications: Current Medications Acetaminophen (Tylenol 325mg Tab) 650 mg PO Q4 PRN PRN Reason: Fever >100.4 F Last Admin: 07/10/17 22:42 Dose: 650 mg Acetaminophen/Butalbital/Caffeine (Fioricet) 1 tab PO Q4H PRN PRN Reason: Headache Last Admin: 06/29/17 17:42 Dose: 1 tab Albuterol/Ipratropium (Duoneb 3 Mg/0.5 Mg (3 Ml) Ud) 3 ml IH [id number] PRN PRN Reason: Shortness of Breath Last Admin: 07/04/17 07:48 Dose: 3 ml Benzonatate (Tessalon Perles) 100 mg PO TID [facility] Last Admin: 07/13/17 10:47 Dose: 100 mg Docusate Sodium (Colace) 100 mg PO DAILY [facility] Last Admin: 07/13/17 10:49 Dose: Not Given Ferrous Sulfate (Feosol) 324 mg PO TID [facility] Last Admin: 07/13/17 10:48 Dose: 324 mg Guaifenesin (Robitussin) 100 mg PO Q4H PRN PRN Reason: Cough Last Admin: 07/04/17 06:14 Dose: 100 mg Guaifenesin/Dextromethorphan (Mucinex-Dm 600-30 Mg) 1 tab PO BID [facility] Last Admin: 07/13/17 10:50 Dose: 1 tab Heparin Sodium (Porcine) (Heparin) 5,000 units SC Q12 [facility] PRN Reason: Protocol Last Admin: 07/13/17 10:47 Dose: 5,000 units Home Med (Home Med) 1 unit PO DAILY [facility] Last Admin: 07/13/17 10:53 Dose: 1 unit Metoprolol Tartrate (Lopressor) 25 mg PO TID [facility] Last Admin: 07/13/17 10:47 Dose: 25 mg Multi-Ingredient Cream (Hydrocerin Cream) 1 ea TOP DAILY [facility] Last Admin: 07/13/17 10:50 Dose: 1 u Multivitamins/Minerals (Therapeutic-M Tab) 1 tab PO 0800 [facility] Last Admin: 07/13/17 10:53 Dose: 1 tab Nystatin (Nystop Topical Powder) 1 gm TOP DAILY [facility] Last Admin: 07/13/17 10:50 Dose: 1 applic Pantoprazole Sodium (Protonix Ec Tab) 40 mg PO 0600 [facility] Last Admin: 07/13/17 05:31 Dose: 40 mg Polyethylene Glycol (Miralax) 17 gm PO BID [facility] Last Admin: 07/13/17 10:50 Dose: Not Given Zinc Sulfate (Zinc Sulfate 220 Mg Cap) 220 mg PO DAILY [facility] Last Admin: 07/13/17 10:53 Dose: 220 mg - Labs Labs: 07/13/17 06:15 07/13/17 06:15 PT 13.1 SECONDS (9.4-12.5) H 06/15/17 11:00 INR 1.19 (0.93-1.08) H 06/15/17 11:00 APTT 31.3 Seconds (25.1-36.5) 06/15/17 11:00 - Head Exam Head Exam: ATRAUMATIC, NORMAL INSPECTION, NORMOCEPHALIC - Eye Exam Eye Exam: EOMI, Normal appearance, PERRL. absent: Periorbital tenderness Pupil Exam: NORMAL ACCOMODATION, PERRL. absent: Irregular, Unequal - ENT Exam ENT Exam: Mucous Membranes Moist, Normal Exam, Normal Oropharynx - Respiratory Exam Respiratory Exam: NORMAL BREATHING PATTERN. absent: Chest Wall Tenderness, Prolonged Expiratory Phase, Respiratory Distress - Cardiovascular Exam Cardiovascular Exam: REGULAR RHYTHM, +S1, +S2. absent: Gallop, Rubs - GI/Abdominal Exam GI & Abdominal Exam: Soft, Normal Bowel Sounds. absent: Hyperactive Bowel Sounds - Extremities Exam Extremities Exam: Joint Swelling. absent: Calf Tenderness, Tenderness - Back Exam Back Exam: NORMAL INSPECTION. absent: CVA tenderness (L), CVA tenderness (R), paraspinal tenderness - Neurological Exam Neurological Exam: Abnormal Gait, Alert, Awake, Oriented x3 - Psychiatric Exam Psychiatric exam: Normal Affect, Normal Mood - Skin Skin Exam: Dry, Intact Assessment and Plan - Assessment and Plan (Free Text) Assessment: Ms. Chou is a 67yo F PMH asthma, arthritis, vitamin C deficiency, and possible thyroid disease who presents with 3 weeks of RLE ulceration, swelling of the lower extremity. Plan: 1. RLE cellulitis/ulcer with culture positive for Proteus Mirabilis and beta hemolytic group b strep -Resolved - continue tylenol prn fevers - continue MV/Vitamin C and Zinc -Podiatry consulted, rec's appreciated. -Patient pending placement. Social work advised that we have an accepting facility, [facility]. Social work advised that the acceptance is pending conversation with medicaid case filler. Social work reviewed earlier conversation with medicaid social insurance adviser. sister is in agreement with plan at this time.Social work provided number for medicaid social insurance adviser. Will continue to follow. Patient placement is still pending. Will continue to follow. 2. Dry skin on the lower extremities bilaterally -Continue Eucerin cream applied 3. Headache - continue fioricet PRN 4. Shortness of breath - Chest x-ray clear - Cotinue to encourage Incentive spirometry - Continue Duonebs. Will continue to monitor closely. - O2 Sat >90% on room air. Patient sating at 97 % on room air. -CXR ordered negative. - cont O2 NC PRN 5. Non productive cough -Repeat CXR was negative to active pulmonary disease -Chest CT showed some mild enlarged axillary LN, mild cardiomegaly and mild vascular congestion. -Continue Robutissin. Continuye Mucinex DM . Will continue to monitor closely. 6. Right knee pain - most likely 2/2 to immobility and PT treatment. Will continue to monitor. 7. UTI - Completed Azactam course -Repeat urine culture preliminary growing Gram negative rods. Will f/u with final results. -Repeat urine culture showed Klebsiella growth on final read. -Ciprofloxacin 500mg BID to be discontinued tomorrow since medication fell off SEP. 8. Hypokalemia -Repleted. Will continue to monitor with serial CMP's. 9. Anemia likely 2/2 iron deficiency anemia - Hg stable -Continue Feosol -trend H/H 10. vitamin C deficiency - continue MV and Vitamin C ordered 11. Depression -Psych consulted. Rec's appreciated. GI/DVT ppx - Heparin - Protonix <Rangasamy,Ajantha - Last Filed: 07/13/17 18:23> Objective - Vital Signs/Intake and Output Vital Signs (last 24 hours): Temp Pulse Resp BP Pulse Ox 97.8 F 79 20 142/71 95 07/13/17 08:00 07/13/17 17:59 07/13/17 08:00 07/13/17 17:59 07/13/17 11:39 Intake and Output: 07/13/17 07/13/17 06:59 18:59 Intake Total 720 Output Total 0 Balance 720 - Medications Medications: Current Medications Acetaminophen (Tylenol 325mg Tab) 650 mg PO Q4 PRN PRN Reason: Fever >100.4 F Last Admin: 07/10/17 22:42 Dose: 650 mg Acetaminophen/Butalbital/Caffeine (Fioricet) 1 tab PO Q4H PRN PRN Reason: Headache Last Admin: 07/13/17 18:02 Dose: 1 tab Albuterol/Ipratropium (Duoneb 3 Mg/0.5 Mg (3 Ml) Ud) 3 ml IH [id number] PRN PRN Reason: Shortness of Breath Last Admin: 07/04/17 07:48 Dose: 3 ml Benzonatate (Tessalon Perles) 100 mg PO TID [facility] Last Admin: 07/13/17 18:00 Dose: 100 mg Docusate Sodium (Colace) 100 mg PO DAILY [facility] Last Admin: 07/13/17 10:49 Dose: Not Given Ferrous Sulfate (Feosol) 324 mg PO TID [facility] Last Admin: 07/13/17 18:00 Dose: 324 mg Guaifenesin (Robitussin) 100 mg PO Q4H PRN PRN Reason: Cough Last Admin: 07/04/17 06:14 Dose: 100 mg Guaifenesin/Dextromethorphan (Mucinex-Dm 600-30 Mg) 1 tab PO BID [facility] Last Admin: 07/13/17 18:00 Dose: 1 tab Heparin Sodium (Porcine) (Heparin) 5,000 units SC Q12 [facility] PRN Reason: Protocol Last Admin: 07/13/17 10:47 Dose: 5,000 units Home Med (Home Med) 1 unit PO DAILY [facility] Last Admin: 07/13/17 10:53 Dose: 1 unit Metoprolol Tartrate (Lopressor) 25 mg PO TID [facility] Last Admin: 07/13/17 17:59 Dose: 25 mg Multi-Ingredient Cream (Hydrocerin Cream) 1 ea TOP DAILY [facility] Last Admin: 07/13/17 10:50 Dose: 1 u Multivitamins/Minerals (Therapeutic-M Tab) 1 tab PO 0800 [facility] Last Admin: 07/13/17 10:53 Dose: 1 tab Nystatin (Nystop Topical Powder) 1 gm TOP DAILY [facility] Last Admin: 07/13/17 10:50 Dose: 1 applic Pantoprazole Sodium (Protonix Ec Tab) 40 mg PO 0600 [facility] Last Admin: 07/13/17 05:31 Dose: 40 mg Polyethylene Glycol (Miralax) 17 gm PO BID [facility] Last Admin: 07/13/17 18:00 Dose: Not Given Zinc Sulfate (Zinc Sulfate 220 Mg Cap) 220 mg PO DAILY [facility] Last Admin: 07/13/17 10:53 Dose: 220 mg - Labs Labs: 07/13/17 06:15 07/13/17 06:15 PT 13.1 SECONDS (9.4-12.5) H 06/15/17 11:00 INR 1.19 (0.93-1.08) H 06/15/17 11:00 APTT 31.3 Seconds (25.1-36.5) 06/15/17 11:00 Attending/Attestation - Attestation I have personally seen and examined this patient.: Yes I have fully participated in the care of the patient.: Yes I have reviewed all pertinent clinical information, including history, physical exam and plan: Yes Notes (Text): 07/13/17 18:22 Attending note; Patient seen and examined with resident. Patient is a 67 year old female with history of asthma, iron deficiency anemia, arthritis, obesity who was admitted for evaluation of bilateral lymphedema and RLE cellulitis of right ankle. Cellulitis has resolved. Echo revealed normal LVEF. Wound cultures reveal proteus and beta hemolytic group B. Klebsiella UTI;Patient has completed vancomycin and azactam. psychiatric evaluation appreciated. PT recommended TED. social insurance adviser evaluation appreciated. Awaiting placement. Upon discharge patient will follow up in [facility] clinic.
[2017-07-13] MEDS: Apap-Butalbital-Caffeine 325-50-40mg Tab PO PRN (18:02)
[2017-07-14] MEDS: Pantoprazole 40 mg EC Tab PO SCH (06:25)
[2017-07-14 07:16] LABS: BASO # 0.06 K/mm3 (0.0-2.0); BASO % 0.6 % (0.0-3.0); EOS % 10.9 % (1.5-5.0); GRAN # 5.81 (1.4-6.5); GRAN % 61.1 % (50.0-68.0); HEMOGLOBIN 9.1 g/dL (12.0-16.0); LYMPH # 1.5 (1.2-3.4); LYMPH % 15.7 % (22.0-35.0); MEAN CELL VOLUME 83.7 fl (80.0-105.0); MEAN CORPUSCULAR HEMOGLOBIN 24.7 pg (25.0-35.0); MEAN CORPUSCULAR HGB CONC 29.4 g/dl (31.0-37.0); MEAN PLATELET VOLUME 8.6 fl (7.0-11.0); MONO # 1.1 (0.1-0.6); MONO % 11.7 % (1.0-6.0); RBC 3.69 10^6/uL (3.5-6.1); RED CELL DISTRIBUTION WIDTH 24.2 % (11.5-14.5); WHITE BLOOD COUNT 9.5 10^3/ul (4.5-11.0)
[2017-07-14 07:46] LABS: ALB/GLOB RATIO 0.7 (1.1-1.8); ALT/SGPT 28 U/L (7-56); AST/SGOT 26 U/L (14-36); BLOOD UREA NITROGEN 16 mg/dL (7-21); CALCIUM 8.2 mg/dL (8.4-10.5); GFR AFRICAN-AMERICAN > 60; GFR NON-AFRICAN AMERICAN 55
[2017-07-14] MEDS: Multivitamin With Minerals Tab PO SCH (08:23)
[2017-07-14] MEDS: Hydrocerin(120 gm) TOP SCH (10:17)
[2017-07-14] MEDS: VITAMIN C 500MG PO SCH (10:18)
[2017-07-14] MEDS: POLYETHYLENE GLYCOL 3350 17 GM/Dose PACKET PO SCH ×2 (10:21→18:28)
[2017-07-14] MEDS: guaiFENesin-DM 600-30 mg ER Tab PO SCH ×2 (10:24→18:28)
[2017-07-14] MEDS: Nystatin 100,000 Units/gm Topical Pow(15 gm) TOP SCH (10:49)
[2017-07-14] MEDS: Apap-Butalbital-Caffeine 325-50-40mg Tab PO PRN ×2 (10:56→20:34)
--- NOTE | 2017-07-14 14:48 | CP.PCM.PN ---
<Yonatan Rodriguez - Last Filed: 07/14/17 14:55> Subjective - Date & Time of Evaluation Date of Evaluation: 07/14/17 Time of Evaluation: 08:45 - Subjective Subjective: Patient seen and examined at bedside. Per nursing no acute events occurred overnight. The patient still reports a dry cough today upon examination. The patient denies any chest pain, shortness of breath, lightheadedness, dizziness, fevers, chills, nausea, vomiting, syncopal episodes, or any complaints. Objective - Vital Signs/Intake and Output Vital Signs (last 24 hours): Temp Pulse Resp BP Pulse Ox 98.1 F 736 H 20 130/67 96 07/14/17 08:47 07/14/17 14:11 07/14/17 08:47 07/14/17 14:11 07/14/17 08:47 Intake and Output: 07/14/17 07/14/17 06:59 18:59 Intake Total 840 Balance 840 - Medications Medications: Current Medications Acetaminophen (Tylenol 325mg Tab) 650 mg PO Q4 PRN PRN Reason: Fever >100.4 F Last Admin: 07/10/17 22:42 Dose: 650 mg Acetaminophen/Butalbital/Caffeine (Fioricet) 1 tab PO Q4H PRN PRN Reason: Headache Last Admin: 07/14/17 10:56 Dose: 1 tab Albuterol/Ipratropium (Duoneb 3 Mg/0.5 Mg (3 Ml) Ud) 3 ml IH [id number] PRN PRN Reason: Shortness of Breath Last Admin: 07/04/17 07:48 Dose: 3 ml Benzonatate (Tessalon Perles) 100 mg PO TID [facility] Last Admin: 07/14/17 10:22 Dose: 100 mg Docusate Sodium (Colace) 100 mg PO DAILY [facility] Last Admin: 07/14/17 10:19 Dose: 100 mg Ferrous Sulfate (Feosol) 324 mg PO TID [facility] Last Admin: 07/14/17 14:10 Dose: 324 mg Guaifenesin (Robitussin) 100 mg PO Q4H PRN PRN Reason: Cough Last Admin: 07/04/17 06:14 Dose: 100 mg Guaifenesin/Dextromethorphan (Mucinex-Dm 600-30 Mg) 1 tab PO BID [facility] Last Admin: 07/14/17 10:24 Dose: 1 tab Heparin Sodium (Porcine) (Heparin) 5,000 units SC Q12 [facility] PRN Reason: Protocol Last Admin: 07/14/17 10:19 Dose: 5,000 units Home Med (Home Med) 1 unit PO DAILY [facility] Last Admin: 07/14/17 10:18 Dose: 1 unit Metoprolol Tartrate (Lopressor) 25 mg PO TID [facility] Last Admin: 07/14/17 14:11 Dose: 25 mg Multi-Ingredient Cream (Hydrocerin Cream) 1 ea TOP DAILY [facility] Last Admin: 07/14/17 10:17 Dose: 1 u Multivitamins/Minerals (Therapeutic-M Tab) 1 tab PO 0800 [facility] Last Admin: 07/14/17 08:23 Dose: 1 tab Nystatin (Nystop Topical Powder) 1 gm TOP DAILY [facility] Last Admin: 07/14/17 10:49 Dose: 1 applic Pantoprazole Sodium (Protonix Ec Tab) 40 mg PO 0600 [facility] Last Admin: 07/14/17 06:25 Dose: 40 mg Polyethylene Glycol (Miralax) 17 gm PO BID [facility] Last Admin: 07/14/17 10:21 Dose: Not Given Zinc Sulfate (Zinc Sulfate 220 Mg Cap) 220 mg PO DAILY [facility] Last Admin: 07/14/17 10:22 Dose: 220 mg - Labs Labs: 07/14/17 07:10 07/14/17 07:10 PT 13.1 SECONDS (9.4-12.5) H 06/15/17 11:00 INR 1.19 (0.93-1.08) H 06/15/17 11:00 APTT 31.3 Seconds (25.1-36.5) 06/15/17 11:00 - Head Exam Head Exam: ATRAUMATIC, NORMAL INSPECTION, NORMOCEPHALIC - Eye Exam Eye Exam: EOMI, Normal appearance, PERRL. absent: Periorbital tenderness Pupil Exam: NORMAL ACCOMODATION, PERRL. absent: Irregular, Unequal - ENT Exam ENT Exam: Mucous Membranes Moist, Normal Exam, Normal Oropharynx - Neck Exam Neck Exam: Normal Inspection. absent: Lymphadenopathy, Thyromegaly - Respiratory Exam Respiratory Exam: Clear to Ausculation Bilateral, NORMAL BREATHING PATTERN. absent: Chest Wall Tenderness, Prolonged Expiratory Phase, Respiratory Distress - Cardiovascular Exam Cardiovascular Exam: REGULAR RHYTHM, RRR, +S1, +S2. absent: Gallop, Rubs - GI/Abdominal Exam GI & Abdominal Exam: Soft, Normal Bowel Sounds. absent: Tenderness, Hyperactive Bowel Sounds - Extremities Exam Extremities Exam: absent: Joint Swelling, Pedal Edema, Tenderness - Back Exam Back Exam: NORMAL INSPECTION. absent: CVA tenderness (R), paraspinal tenderness - Neurological Exam Neurological Exam: Abnormal Gait, Alert, Awake, Oriented x3 - Psychiatric Exam Psychiatric exam: Normal Affect, Normal Mood Assessment and Plan - Assessment and Plan (Free Text) Assessment: Ms. Chou is a 67yo F PMH asthma, arthritis, vitamin C deficiency, and possible thyroid disease who presents with 3 weeks of RLE ulceration, swelling of the lower extremity. Plan: 1. Right lower extremity cellulitis/ulcer with culture positive for Proteus Mirabilis and beta hemolytic group b strep -Resolved - continue tylenol prn fevers - continue MV/Vitamin C and Zinc -Podiatry consulted, rec's appreciated. -Patient pending placement. Social work advised that we have an accepting facility, [place]. Social work advised that the acceptance is pending conversation with medicaid behavioral health case manager. Social work reviewed earlier conversation with medicaid social services counselor. sister is in agreement with plan at this time.Social work provided number for medicaid social services counselor. Will continue to follow. Patient placement is still pending. Will continue to follow. 2. Dry skin on the lower extremities bilaterally -Continue Eucerin cream applied 3. Headache - continue fioricet PRN 4. Shortness of breath - Chest x-ray clear - Cotinue to encourage Incentive spirometry - Continue Duonebs. Will continue to monitor closely. - O2 Sat >90% on room air. Patient sating at 97 % on room air. -Chest x-ray ordered negative. - cont O2 Nasal cannula PRN 5. Non productive cough -Repeat Chest x-ray was negative to active pulmonary disease -Chest CT showed some mild enlarged axillary Lymph node, mild cardiomegaly and mild vascular congestion. -Continue Robutissin. Continue Mucinex DM . Will continue to monitor closely. 6. Right knee pain - most likely 2/2 to immobility and Physical therapy treatment. Will continue to monitor. 7. Urinary tract infection - Completed Azactam course -Repeat urine culture preliminary growing Gram negative rods. Will follow up with final results. -Repeat urine culture showed Klebsiella growth on final read. -Antibiotic regimen completed. 8. Hypokalemia -Repleted. Will continue to monitor with serial metabolic panels. 9. Anemia likely 2/2 iron deficiency anemia - Hemoglobin stable -Continue Feosol -trend hemoglobin/hematocrit 10. vitamin C deficiency - continue Multivitamin and Vitamin C ordered 11. Depression -Psych consulted. Rec's appreciated. GI/DVT ppx - Heparin - Protonix <Rangasamy,Ajantha - Last Filed: 07/15/17 13:42> Objective - Vital Signs/Intake and Output Vital Signs (last 24 hours): Temp Pulse Resp BP Pulse Ox 98.0 F 81 20 170/63 H 98 07/15/17 08:00 07/15/17 09:05 07/15/17 08:00 07/15/17 09:05 07/15/17 08:00 Intake and Output: 07/15/17 07/15/17 06:59 18:59 Intake Total 660 Balance 660 - Medications Medications: Current Medications Acetaminophen (Tylenol 325mg Tab) 650 mg PO Q4 PRN PRN Reason: Fever >100.4 F Last Admin: 07/10/17 22:42 Dose: 650 mg Acetaminophen/Butalbital/Caffeine (Fioricet) 1 tab PO Q4H PRN PRN Reason: Headache Last Admin: 07/15/17 09:07 Dose: 1 tab Albuterol/Ipratropium (Duoneb 3 Mg/0.5 Mg (3 Ml) Ud) 3 ml IH [id number] PRN PRN Reason: Shortness of Breath Last Admin: 07/15/17 00:51 Dose: 3 ml Benzonatate (Tessalon Perles) 100 mg PO TID [facility] Last Admin: 07/15/17 09:05 Dose: 100 mg Docusate Sodium (Colace) 100 mg PO DAILY [facility] Last Admin: 07/15/17 09:01 Dose: Not Given Ferrous Sulfate (Feosol) 324 mg PO TID [facility] Last Admin: 07/15/17 09:01 Dose: 324 mg Guaifenesin (Robitussin) 100 mg PO Q4H PRN PRN Reason: Cough Last Admin: 07/15/17 09:07 Dose: 100 mg Guaifenesin/Dextromethorphan (Mucinex-Dm 600-30 Mg) 1 tab PO BID [facility] Last Admin: 07/15/17 09:04 Dose: 1 tab Heparin Sodium (Porcine) (Heparin) 5,000 units SC Q12 [facility] PRN Reason: Protocol Last Admin: 07/15/17 09:01 Dose: 5,000 units Home Med (Home Med) 1 unit PO DAILY [facility] Last Admin: 07/15/17 09:02 Dose: 1 unit Metoprolol Tartrate (Lopressor) 25 mg PO TID [facility] Last Admin: 07/15/17 09:05 Dose: 25 mg Multi-Ingredient Cream (Hydrocerin Cream) 1 ea TOP DAILY [facility] Last Admin: 07/15/17 09:03 Dose: 1 applic Multivitamins/Minerals (Therapeutic-M Tab) 1 tab PO 0800 [facility] Last Admin: 07/15/17 08:19 Dose: 1 tab Nystatin (Nystop Topical Powder) 1 gm TOP DAILY [facility] Last Admin: 07/15/17 09:03 Dose: 1 applic Pantoprazole Sodium (Protonix Ec Tab) 40 mg PO 0600 [facility] Last Admin: 07/15/17 05:40 Dose: 40 mg Polyethylene Glycol (Miralax) 17 gm PO BID [facility] Last Admin: 07/15/17 09:04 Dose: Not Given Zinc Sulfate (Zinc Sulfate 220 Mg Cap) 220 mg PO DAILY [facility] Last Admin: 07/15/17 10:42 Dose: 220 mg - Labs Labs: 07/15/17 05:30 07/15/17 05:30 PT 13.1 SECONDS (9.4-12.5) H 06/15/17 11:00 INR 1.19 (0.93-1.08) H 06/15/17 11:00 APTT 31.3 Seconds (25.1-36.5) 06/15/17 11:00 Attending/Attestation - Attestation I have personally seen and examined this patient.: Yes I have fully participated in the care of the patient.: Yes I have reviewed all pertinent clinical information, including history, physical exam and plan: Yes Notes (Text): Attending note; Patient seen and examined with resident. Patient is a 67 year old female with history of asthma, iron deficiency anemia, arthritis, obesity who was admitted for evaluation of bilateral lymphedema and RLE cellulitis of right ankle. Cellulitis has resolved. Echo revealed normal LVEF. Wound cultures reveal proteus and beta hemolytic group B. Klebsiella UTI;Patient has completed vancomycin and azactam. psychiatric evaluation appreciated. PT recommended TED. social services counselor evaluation appreciated. Awaiting placement. Upon discharge patient will follow up in [facility] clinic.
[2017-07-14] MEDS ORDERED: Potassium Chloride 20 mEq ER Tab PO ONE (14:50)
--- NOTE | 2017-07-14 23:01 | CP.PCM.PN ---
Subjective - Date & Time of Evaluation Date of Evaluation: 07/14/17 Time of Evaluation: 22:00 - Subjective Subjective: Infectious Disease Follow Up: July 14, 2017 67 yo female presenting with 3 weeks of RLE ulceration, swelling and leaking from the wound as well as multiple falls in the past 3 weeks. The patient has an extensive medical history of asthma, arthritis, vitamin C deficiency, and possible thyroid disease. Draining RLE ulceration... cellulitis improved/resolved. Multiple chronic medical issues. Still with persistent dry cough. Otherwise stable. Mild erythema and excoriation of the folds in the abdomen and under the breasts. Fevers up to 100.8 F two nights ago. Patient making few complaints. The patient has remained in bed. Nursing and aides had noted that the patient's friend "Chris" has encouraged the patient to stay in bed in order to get to a halfway or subacute facility. "Chris" was the person the patient was living with prior to coming [place] [facility] Also noted that the patient has had a hacking cough the last couple of days. Afebrile the several days now. CT scan of chest done. CT shows mild vascular congestion and no infiltrates. No additional issues. Social Issues. UTI with Klebsiella growth. Sensitive to Cipro. On Cipro now. Objective - Vital Signs/Intake and Output Vital Signs (last 24 hours): Temp Pulse Resp BP Pulse Ox 97.9 F 75 20 121/64 95 07/14/17 17:15 07/14/17 18:27 07/14/17 17:15 07/14/17 18:27 07/14/17 17:15 Intake and Output: 07/14/17 07/15/17 18:59 06:59 Intake Total 660 Balance 660 - Medications Medications: Current Medications Acetaminophen (Tylenol 325mg Tab) 650 mg PO Q4 PRN PRN Reason: Fever >100.4 F Last Admin: 07/10/17 22:42 Dose: 650 mg Acetaminophen/Butalbital/Caffeine (Fioricet) 1 tab PO Q4H PRN PRN Reason: Headache Last Admin: 07/14/17 20:34 Dose: 1 tab Albuterol/Ipratropium (Duoneb 3 Mg/0.5 Mg (3 Ml) Ud) 3 ml IH [id number] PRN PRN Reason: Shortness of Breath Last Admin: 07/04/17 07:48 Dose: 3 ml Benzonatate (Tessalon Perles) 100 mg PO TID [facility] Last Admin: 07/14/17 18:26 Dose: 100 mg Docusate Sodium (Colace) 100 mg PO DAILY [facility] Last Admin: 07/14/17 10:19 Dose: 100 mg Ferrous Sulfate (Feosol) 324 mg PO TID [facility] Last Admin: 07/14/17 18:27 Dose: 324 mg Guaifenesin (Robitussin) 100 mg PO Q4H PRN PRN Reason: Cough Last Admin: 07/04/17 06:14 Dose: 100 mg Guaifenesin/Dextromethorphan (Mucinex-Dm 600-30 Mg) 1 tab PO BID [facility] Last Admin: 07/14/17 18:28 Dose: 1 tab Heparin Sodium (Porcine) (Heparin) 5,000 units SC Q12 [facility] PRN Reason: Protocol Last Admin: 07/14/17 22:51 Dose: 5,000 units Home Med (Home Med) 1 unit PO DAILY [facility] Last Admin: 07/14/17 10:18 Dose: 1 unit Metoprolol Tartrate (Lopressor) 25 mg PO TID [facility] Last Admin: 07/14/17 18:27 Dose: 25 mg Multi-Ingredient Cream (Hydrocerin Cream) 1 ea TOP DAILY [facility] Last Admin: 07/14/17 10:17 Dose: 1 u Multivitamins/Minerals (Therapeutic-M Tab) 1 tab PO 0800 [facility] Last Admin: 07/14/17 08:23 Dose: 1 tab Nystatin (Nystop Topical Powder) 1 gm TOP DAILY [facility] Last Admin: 07/14/17 10:49 Dose: 1 applic Pantoprazole Sodium (Protonix Ec Tab) 40 mg PO 0600 [facility] Last Admin: 07/14/17 06:25 Dose: 40 mg Polyethylene Glycol (Miralax) 17 gm PO BID [facility] Last Admin: 07/14/17 18:28 Dose: Not Given Zinc Sulfate (Zinc Sulfate 220 Mg Cap) 220 mg PO DAILY [facility] Last Admin: 07/14/17 10:22 Dose: 220 mg - Labs Labs: 07/14/17 07:10 07/14/17 07:10 PT 13.1 SECONDS (9.4-12.5) H 06/15/17 11:00 INR 1.19 (0.93-1.08) H 06/15/17 11:00 APTT 31.3 Seconds (25.1-36.5) 06/15/17 11:00 - Constitutional Appears: Non-toxic, No Acute Distress, Chronically Ill - Head Exam Head Exam: ATRAUMATIC, NORMOCEPHALIC - Eye Exam Eye Exam: EOMI, PERRL Pupil Exam: NORMAL ACCOMODATION, PERRL - ENT Exam ENT Exam: Mucous Membranes Moist, Normal External Ear Exam, TM's Normal Bilaterally - Respiratory Exam Respiratory Exam: Clear to Ausculation Bilateral, NORMAL BREATHING PATTERN. absent: Rales, Rhonchi, Wheezes - Cardiovascular Exam Cardiovascular Exam: REGULAR RHYTHM, RRR, +S1, +S2 - GI/Abdominal Exam GI & Abdominal Exam: Soft, Normal Bowel Sounds. absent: Distended, Tenderness - Extremities Exam Extremities Exam: Full ROM, Normal Inspection - Neurological Exam Neurological Exam: Alert, Awake, CN II-XII Intact, Oriented x3 - Psychiatric Exam Psychiatric exam: Normal Affect, Normal Mood - Skin Skin Exam: Intact, Normal Color Assessment and Plan - Assessment and Plan (Free Text) Assessment: 67 yo female with multiple medical issues with PCN allergy diagnosed as a teenager verified by an Acting Section Chief. The patient with leukocytosis. Await cultures especially urine cultures. Diabetes and HTN history? Local wound care. Elevated ESR and C-reactive protein. Completed Vancomycin and Aztreonam for antibiotic coverage. UTI with E. coli sensitive to Azactam. Was on Vancomycin for cellulitis IV. For UTI for 5-7 days treatment... completed. Supportive care. Cellulitis appears improved. No new issues. Social issues currently. Homeless at this time. CT scan of chest done. No infiltrates seen. Afebrile the past 24 hours. Mild congestion noted in CT with small pulmonary effusions. No leukocytosis. Slightly elevated procalcitonin (0.66) which is undefined without stronger evidence for pneumonia. When encouraged, she is able to use the incentive spirometer without issues and ambulate with minimal difficulty. UTI with Klebsiella. Sensitive to Cipro. Was on Cipro for 5 day course at 500mg PO BID. Completed the antibiotic course. Stable currently. Thank you for allowing me to participate in the care of the patient, we will follow with you.
[2017-07-15] MEDS: Albuterol-Ipratrop 3 mg / 0.5 (3 ml) UD IH PRN (00:51)
[2017-07-15] MEDS: Pantoprazole 40 mg EC Tab PO SCH (05:40)
[2017-07-15 06:58] LABS: BASO # 0.05 K/mm3 (0.0-2.0); BASO % 0.5 % (0.0-3.0); EOS # 1.1 (0.0-0.7); EOS % 11.4 % (1.5-5.0); GRAN # 5.86 (1.4-6.5); GRAN % 61.3 % (50.0-68.0); HEMOGLOBIN 9.1 g/dL (12.0-16.0); LYMPH # 1.6 (1.2-3.4); LYMPH % 16.9 % (22.0-35.0); MEAN CELL VOLUME 83.4 fl (80.0-105.0); MEAN CORPUSCULAR HEMOGLOBIN 24.7 pg (25.0-35.0); MEAN CORPUSCULAR HGB CONC 29.6 g/dl (31.0-37.0); MEAN PLATELET VOLUME 8.8 fl (7.0-11.0); MONO % 9.9 % (1.0-6.0); RBC 3.68 10^6/uL (3.5-6.1); RED CELL DISTRIBUTION WIDTH 24.2 % (11.5-14.5); WHITE BLOOD COUNT 9.6 10^3/ul (4.5-11.0)
[2017-07-15 07:46] LABS: ALB/GLOB RATIO 0.8 (1.1-1.8); ALBUMIN 3.1 g/dL (3.0-4.8); ALT/SGPT 22 U/L (7-56); AST/SGOT 49 U/L (14-36); BLOOD UREA NITROGEN 18 mg/dL (7-21); CALCIUM 8.2 mg/dL (8.4-10.5); GFR AFRICAN-AMERICAN > 60; GFR NON-AFRICAN AMERICAN 55
[2017-07-15] MEDS: Multivitamin With Minerals Tab PO SCH (08:19)
[2017-07-15] MEDS: VITAMIN C 500MG PO SCH (09:02)
[2017-07-15] MEDS: Nystatin 100,000 Units/gm Topical Pow(15 gm) TOP SCH (09:03)
[2017-07-15] MEDS: Hydrocerin(120 gm) TOP SCH (09:03)
[2017-07-15] MEDS: guaiFENesin-DM 600-30 mg ER Tab PO SCH ×2 (09:04→17:46)
[2017-07-15] MEDS: POLYETHYLENE GLYCOL 3350 17 GM/Dose PACKET PO SCH ×2 (09:04→17:36)
[2017-07-15] MEDS: Apap-Butalbital-Caffeine 325-50-40mg Tab PO PRN (09:07)
[2017-07-15] MEDS: guaiFENesin 100 mg/5 ml Syrup UD PO PRN ×2 (09:07→17:39)
--- NOTE | 2017-07-15 10:52 | CP.PCM.PN ---
<Yonatan Rodriguez - Last Filed: 07/16/17 16:11> Subjective - Date & Time of Evaluation Date of Evaluation: 07/15/17 Time of Evaluation: 06:50 - Subjective Subjective: Patient seen and examined at bedside. Per nursing no acute events occurred overnight. The patient reports some loose bowel movements. The patient denies any chest pain, shortness of breath, lightheadedness, dizziness, changes in vision, syncopal episodes, fevers, chills, abdominal pain, or any other complaints. Objective - Vital Signs/Intake and Output Vital Signs (last 24 hours): Temp Pulse Resp BP Pulse Ox 98.0 F 81 20 170/63 H 98 07/15/17 08:00 07/15/17 09:05 07/15/17 08:00 07/15/17 09:05 07/15/17 08:00 Intake and Output: 07/15/17 07/15/17 06:59 18:59 Intake Total 660 Balance 660 - Medications Medications: Current Medications Acetaminophen (Tylenol 325mg Tab) 650 mg PO Q4 PRN PRN Reason: Fever >100.4 F Last Admin: 07/10/17 22:42 Dose: 650 mg Acetaminophen/Butalbital/Caffeine (Fioricet) 1 tab PO Q4H PRN PRN Reason: Headache Last Admin: 07/15/17 09:07 Dose: 1 tab Albuterol/Ipratropium (Duoneb 3 Mg/0.5 Mg (3 Ml) Ud) 3 ml IH [id number] PRN PRN Reason: Shortness of Breath Last Admin: 07/15/17 00:51 Dose: 3 ml Benzonatate (Tessalon Perles) 100 mg PO TID [facility] Last Admin: 07/15/17 09:05 Dose: 100 mg Docusate Sodium (Colace) 100 mg PO DAILY [facility] Last Admin: 07/15/17 09:01 Dose: Not Given Ferrous Sulfate (Feosol) 324 mg PO TID [facility] Last Admin: 07/15/17 09:01 Dose: 324 mg Guaifenesin (Robitussin) 100 mg PO Q4H PRN PRN Reason: Cough Last Admin: 07/15/17 09:07 Dose: 100 mg Guaifenesin/Dextromethorphan (Mucinex-Dm 600-30 Mg) 1 tab PO BID [facility] Last Admin: 07/15/17 09:04 Dose: 1 tab Heparin Sodium (Porcine) (Heparin) 5,000 units SC Q12 [facility] PRN Reason: Protocol Last Admin: 07/15/17 09:01 Dose: 5,000 units Home Med (Home Med) 1 unit PO DAILY [facility] Last Admin: 07/15/17 09:02 Dose: 1 unit Metoprolol Tartrate (Lopressor) 25 mg PO TID [facility] Last Admin: 07/15/17 09:05 Dose: 25 mg Multi-Ingredient Cream (Hydrocerin Cream) 1 ea TOP DAILY [facility] Last Admin: 07/15/17 09:03 Dose: 1 applic Multivitamins/Minerals (Therapeutic-M Tab) 1 tab PO 0800 [facility] Last Admin: 07/15/17 08:19 Dose: 1 tab Nystatin (Nystop Topical Powder) 1 gm TOP DAILY [facility] Last Admin: 07/15/17 09:03 Dose: 1 applic Pantoprazole Sodium (Protonix Ec Tab) 40 mg PO 0600 [facility] Last Admin: 07/15/17 05:40 Dose: 40 mg Polyethylene Glycol (Miralax) 17 gm PO BID [facility] Last Admin: 07/15/17 09:04 Dose: Not Given Zinc Sulfate (Zinc Sulfate 220 Mg Cap) 220 mg PO DAILY [facility] Last Admin: 07/15/17 10:42 Dose: 220 mg - Labs Labs: 07/15/17 05:30 07/15/17 05:30 PT 13.1 SECONDS (9.4-12.5) H 06/15/17 11:00 INR 1.19 (0.93-1.08) H 06/15/17 11:00 APTT 31.3 Seconds (25.1-36.5) 06/15/17 11:00 - Head Exam Head Exam: ATRAUMATIC, NORMAL INSPECTION, NORMOCEPHALIC - Eye Exam Eye Exam: EOMI, Normal appearance, PERRL. absent: Nystagmus, Periorbital tenderness, Scleral icterus Pupil Exam: NORMAL ACCOMODATION, PERRL. absent: Irregular, Unequal - ENT Exam ENT Exam: Mucous Membranes Moist, Normal Exam, Normal Oropharynx - Neck Exam Neck Exam: Normal Inspection. absent: Lymphadenopathy, Thyromegaly - Respiratory Exam Respiratory Exam: Clear to Ausculation Bilateral, NORMAL BREATHING PATTERN. absent: Chest Wall Tenderness, Prolonged Expiratory Phase, Respiratory Distress - Cardiovascular Exam Cardiovascular Exam: REGULAR RHYTHM, +S1, +S2. absent: Gallop, Rubs - GI/Abdominal Exam GI & Abdominal Exam: Soft, Normal Bowel Sounds. absent: Tenderness, Hyperactive Bowel Sounds - Back Exam Back Exam: NORMAL INSPECTION. absent: CVA tenderness (L), CVA tenderness (R), paraspinal tenderness - Neurological Exam Neurological Exam: Alert, Awake, CN II-XII Intact, Normal Gait, Oriented x3 - Psychiatric Exam Psychiatric exam: Normal Affect, Normal Mood. absent: Anxious, Depressed - Skin Skin Exam: Dry, Intact Assessment and Plan - Assessment and Plan (Free Text) Assessment: Ms. Chou is a 67yo F PMH asthma, arthritis, vitamin C deficiency, and possible thyroid disease who presents with 3 weeks of RLE ulceration, swelling of the lower extremity. Plan: 1. Right lower extremity cellulitis/ulcer with culture positive for Proteus Mirabilis and beta hemolytic group b strep -Resolved - continue tylenol prn fevers - continue MV/Vitamin C and Zinc -Podiatry consulted, rec's appreciated. -Patient pending placement. Social work advised that we have an accepting facility, [facility]. Social work advised that the acceptance is pending conversation with medicaid case management assistant. Social work reviewed case and patient currently has no case management assistant assigned. Transfer to next level of care dependent on assigned a case manger per broom worker Nathan. Will continue to follow. 2. Dry skin on the lower extremities bilaterally -Continue Eucerin cream applied 3. Headache - continue fioricet PRN 4. Shortness of breath - Chest x-ray clear - Cotinue to encourage Incentive spirometry - Continue Duonebs. Will continue to monitor closely. - O2 Sat >90% on room air. Patient sating at 97 % on room air. -Chest x-ray ordered negative. - cont O2 Nasal cannula PRN 5. Non productive cough -Repeat Chest x-ray was negative to active pulmonary disease -Chest CT showed some mild enlarged axillary Lymph node, mild cardiomegaly and mild vascular congestion. -Continue Robutissin. Continue Mucinex DM . Will continue to monitor closely. 6. Right knee pain - most likely 2/2 to immobility and Physical therapy treatment. Will continue to monitor. 7. Urinary tract infection - Completed Azactam course -Repeat urine culture preliminary growing Gram negative rods. Will follow up with final results. -Repeat urine culture showed Klebsiella growth on final read. -Antibiotic regimen completed. 8. Hypokalemia -Repleted. Will continue to monitor with serial metabolic panels. 9. Anemia likely 2/2 iron deficiency anemia - Hemoglobin stable -Continue Feosol -trend hemoglobin/hematocrit 10. vitamin C deficiency - continue Multivitamin and Vitamin C ordered 11. Depression -Psych consulted. Rec's appreciated. GI/DVT ppx - Heparin - Protonix <Rangasamy,Ajantha - Last Filed: 07/16/17 16:35> Objective - Vital Signs/Intake and Output Vital Signs (last 24 hours): Temp Pulse Resp BP Pulse Ox 98.8 F 83 20 131/69 97 07/16/17 08:00 07/16/17 13:41 07/16/17 08:00 07/16/17 13:41 07/16/17 08:00 Intake and Output: 07/16/17 07/16/17 06:59 18:59 Intake Total 360 Balance 360 - Medications Medications: Current Medications Acetaminophen (Tylenol 325mg Tab) 650 mg PO Q4 PRN PRN Reason: Fever >100.4 F Last Admin: 07/10/17 22:42 Dose: 650 mg Acetaminophen/Butalbital/Caffeine (Fioricet) 1 tab PO Q4H PRN PRN Reason: Headache Last Admin: 07/15/17 09:07 Dose: 1 tab Albuterol/Ipratropium (Duoneb 3 Mg/0.5 Mg (3 Ml) Ud) 3 ml IH [id number] PRN PRN Reason: Shortness of Breath Last Admin: 07/15/17 00:51 Dose: 3 ml Benzonatate (Tessalon Perles) 100 mg PO TID [facility] Last Admin: 07/16/17 13:40 Dose: 100 mg Docusate Sodium (Colace) 100 mg PO DAILY [facility] Last Admin: 07/16/17 09:17 Dose: Not Given Ferrous Sulfate (Feosol) 324 mg PO TID [facility] Last Admin: 07/16/17 13:41 Dose: 324 mg Guaifenesin (Robitussin) 100 mg PO Q4H PRN PRN Reason: Cough Last Admin: 07/16/17 01:28 Dose: 100 mg Guaifenesin/Dextromethorphan (Mucinex-Dm 600-30 Mg) 1 tab PO BID [facility] Last Admin: 07/16/17 10:32 Dose: 1 tab Heparin Sodium (Porcine) (Heparin) 5,000 units SC Q12 [facility] PRN Reason: Protocol Last Admin: 07/16/17 09:16 Dose: 5,000 units Home Med (Home Med) 1 unit PO DAILY [facility] Last Admin: 07/16/17 10:30 Dose: 1 unit Metoprolol Tartrate (Lopressor) 25 mg PO TID [facility] Last Admin: 07/16/17 13:41 Dose: 25 mg Multi-Ingredient Cream (Hydrocerin Cream) 1 ea TOP DAILY [facility] Last Admin: 07/16/17 12:32 Dose: 1 applic Multivitamins/Minerals (Therapeutic-M Tab) 1 tab PO 0800 [facility] Last Admin: 07/16/17 08:25 Dose: 1 tab Nystatin (Nystop Topical Powder) 1 gm TOP DAILY [facility] Last Admin: 07/16/17 10:31 Dose: 1 applic Pantoprazole Sodium (Protonix Ec Tab) 40 mg PO 0600 [facility] Last Admin: 07/16/17 05:40 Dose: 40 mg Zinc Sulfate (Zinc Sulfate 220 Mg Cap) 220 mg PO DAILY [facility] Last Admin: 07/16/17 09:17 Dose: 220 mg - Labs Labs: 07/16/17 06:30 07/16/17 06:30 PT 13.1 SECONDS (9.4-12.5) H 06/15/17 11:00 INR 1.19 (0.93-1.08) H 06/15/17 11:00 APTT 31.3 Seconds (25.1-36.5) 06/15/17 11:00 Attending/Attestation - Attestation I have personally seen and examined this patient.: Yes I have fully participated in the care of the patient.: Yes I have reviewed all pertinent clinical information, including history, physical exam and plan: Yes Notes (Text): 07/16/17 16:35 Attending note; Patient seen and examined with resident. Patient is a 67 year old female with history of asthma, iron deficiency anemia, arthritis, obesity who was admitted for evaluation of bilateral lymphedema and RLE cellulitis of right ankle. Cellulitis has resolved. Echo revealed normal LVEF. Wound cultures reveal proteus and beta hemolytic group B. Klebsiella UTI;Patient has completed vancomycin and azactam. psychiatric evaluation appreciated. PT recommended TED. aids social worker evaluation appreciated. Awaiting placement. Upon discharge patient will follow up in [facility] clinic.
--- NOTE | 2017-07-15 16:37 | CP.PCM.PN ---
Subjective - Date & Time of Evaluation Date of Evaluation: 07/15/17 Time of Evaluation: 15:00 - Subjective Subjective: Infectious Disease Follow Up: July 15, 2017 67 yo female presenting with 3 weeks of RLE ulceration, swelling and leaking from the wound as well as multiple falls in the past 3 weeks. The patient has an extensive medical history of asthma, arthritis, vitamin C deficiency, and possible thyroid disease. Draining RLE ulceration... cellulitis improved/resolved. Multiple chronic medical issues. Still with persistent dry cough. Otherwise stable. Mild erythema and excoriation of the folds in the abdomen and under the breasts. Fevers up to 100.8 F two nights ago. Patient making few complaints. The patient has remained in bed. Nursing and aides had noted that the patient's friend "Chris" has encouraged the patient to stay in bed in order to get to a fpc or subacute facility. "Chris" was the person the patient was living with prior to coming to [facility]. Also noted that the patient has had a hacking cough the last couple of days. Afebrile the several days now. CT scan of chest done. CT shows mild vascular congestion and no infiltrates. No additional issues. Social Issues. UTI with Klebsiella growth. Sensitive to Cipro. On Cipro now. Objective - Vital Signs/Intake and Output Vital Signs (last 24 hours): Temp Pulse Resp BP Pulse Ox 98.0 F 65 20 128/73 98 07/15/17 08:00 07/15/17 13:41 07/15/17 08:00 07/15/17 13:41 07/15/17 08:00 Intake and Output: 07/15/17 07/15/17 06:59 18:59 Intake Total 660 Balance 660 - Medications Medications: Current Medications Acetaminophen (Tylenol 325mg Tab) 650 mg PO Q4 PRN PRN Reason: Fever >100.4 F Last Admin: 07/10/17 22:42 Dose: 650 mg Acetaminophen/Butalbital/Caffeine (Fioricet) 1 tab PO Q4H PRN PRN Reason: Headache Last Admin: 07/15/17 09:07 Dose: 1 tab Albuterol/Ipratropium (Duoneb 3 Mg/0.5 Mg (3 Ml) Ud) 3 ml IH [id number] PRN PRN Reason: Shortness of Breath Last Admin: 07/15/17 00:51 Dose: 3 ml Benzonatate (Tessalon Perles) 100 mg PO TID [facility] Last Admin: 07/15/17 09:05 Dose: 100 mg Docusate Sodium (Colace) 100 mg PO DAILY [facility] Last Admin: 07/15/17 09:01 Dose: Not Given Ferrous Sulfate (Feosol) 324 mg PO TID [facility] Last Admin: 07/15/17 13:41 Dose: 324 mg Guaifenesin (Robitussin) 100 mg PO Q4H PRN PRN Reason: Cough Last Admin: 07/15/17 09:07 Dose: 100 mg Guaifenesin/Dextromethorphan (Mucinex-Dm 600-30 Mg) 1 tab PO BID [facility] Last Admin: 07/15/17 09:04 Dose: 1 tab Heparin Sodium (Porcine) (Heparin) 5,000 units SC Q12 [facility] PRN Reason: Protocol Last Admin: 07/15/17 09:01 Dose: 5,000 units Home Med (Home Med) 1 unit PO DAILY [facility] Last Admin: 07/15/17 09:02 Dose: 1 unit Metoprolol Tartrate (Lopressor) 25 mg PO TID [facility] Last Admin: 07/15/17 13:41 Dose: 25 mg Multi-Ingredient Cream (Hydrocerin Cream) 1 ea TOP DAILY [facility] Last Admin: 07/15/17 09:03 Dose: 1 applic Multivitamins/Minerals (Therapeutic-M Tab) 1 tab PO 0800 [facility] Last Admin: 07/15/17 08:19 Dose: 1 tab Nystatin (Nystop Topical Powder) 1 gm TOP DAILY [facility] Last Admin: 07/15/17 09:03 Dose: 1 applic Pantoprazole Sodium (Protonix Ec Tab) 40 mg PO 0600 [facility] Last Admin: 07/15/17 05:40 Dose: 40 mg Polyethylene Glycol (Miralax) 17 gm PO BID [facility] Last Admin: 07/15/17 09:04 Dose: Not Given Zinc Sulfate (Zinc Sulfate 220 Mg Cap) 220 mg PO DAILY [facility] Last Admin: 07/15/17 10:42 Dose: 220 mg - Labs Labs: 07/15/17 05:30 07/15/17 05:30 PT 13.1 SECONDS (9.4-12.5) H 06/15/17 11:00 INR 1.19 (0.93-1.08) H 06/15/17 11:00 APTT 31.3 Seconds (25.1-36.5) 06/15/17 11:00 - Constitutional Appears: Non-toxic, No Acute Distress, Chronically Ill - Head Exam Head Exam: ATRAUMATIC, NORMOCEPHALIC - Eye Exam Eye Exam: EOMI, PERRL Pupil Exam: NORMAL ACCOMODATION, PERRL - ENT Exam ENT Exam: Mucous Membranes Moist, Normal External Ear Exam, TM's Normal Bilaterally - Neck Exam Neck Exam: Full ROM, Normal Inspection - Respiratory Exam Respiratory Exam: Clear to Ausculation Bilateral, NORMAL BREATHING PATTERN. absent: Rales, Rhonchi, Wheezes - Cardiovascular Exam Cardiovascular Exam: REGULAR RHYTHM, RRR, +S1, +S2 - GI/Abdominal Exam GI & Abdominal Exam: Soft, Normal Bowel Sounds. absent: Distended, Tenderness - Extremities Exam Extremities Exam: Full ROM, Normal Inspection - Neurological Exam Neurological Exam: Alert, Awake, CN II-XII Intact, Oriented x3 - Psychiatric Exam Psychiatric exam: Normal Affect, Normal Mood - Skin Skin Exam: Intact, Normal Color Assessment and Plan - Assessment and Plan (Free Text) Assessment: 67 yo female with multiple medical issues with PCN allergy diagnosed as a teenager verified by an Color Checker. The patient with leukocytosis. Await cultures especially urine cultures. Diabetes and HTN history? Local wound care. Elevated ESR and C-reactive protein. Completed Vancomycin and Aztreonam for antibiotic coverage. UTI with E. coli sensitive to Azactam. Was on Vancomycin for cellulitis IV. For UTI for 5-7 days treatment... completed. Supportive care. Cellulitis appears improved. No new issues. Social issues currently. Homeless at this time. CT scan of chest done. No infiltrates seen. Afebrile the past 24 hours. Mild congestion noted in CT with small pulmonary effusions. No leukocytosis. Slightly elevated procalcitonin (0.66) which is undefined without stronger evidence for pneumonia. When encouraged, she is able to use the incentive spirometer without issues and ambulate with minimal difficulty. UTI with Klebsiella. Sensitive to Cipro. Was on Cipro for 5 day course at 500mg PO BID. Completed the antibiotic course. Stable currently. No new issues. Thank you for allowing me to participate in the care of the patient, we will follow with you.
[2017-07-16] MEDS: guaiFENesin 100 mg/5 ml Syrup UD PO PRN (01:28)
[2017-07-16] MEDS: Pantoprazole 40 mg EC Tab PO SCH (05:40)
[2017-07-16 07:09] LABS: BASO # 0.06 K/mm3 (0.0-2.0); BASO % 0.6 % (0.0-3.0); EOS % 9.9 % (1.5-5.0); GRAN # 6.23 (1.4-6.5); GRAN % 64.2 % (50.0-68.0); HEMOGLOBIN 8.9 g/dL (12.0-16.0); LYMPH # 1.6 (1.2-3.4); LYMPH % 16.9 % (22.0-35.0); MEAN CORPUSCULAR HEMOGLOBIN 24.2 pg (25.0-35.0); MEAN CORPUSCULAR HGB CONC 28.8 g/dl (31.0-37.0); MEAN PLATELET VOLUME 8.7 fl (7.0-11.0); MONO # 0.8 (0.1-0.6); MONO % 8.4 % (1.0-6.0); RBC 3.68 10^6/uL (3.5-6.1); RED CELL DISTRIBUTION WIDTH 24.4 % (11.5-14.5); WHITE BLOOD COUNT 9.7 10^3/ul (4.5-11.0)
[2017-07-16 07:30] LABS: ALB/GLOB RATIO 0.8 (1.1-1.8); ALBUMIN 3.1 g/dL (3.0-4.8); ALT/SGPT 25 U/L (7-56); AST/SGOT 41 U/L (14-36); BLOOD UREA NITROGEN 18 mg/dL (7-21); CALCIUM 8.2 mg/dL (8.4-10.5); GFR AFRICAN-AMERICAN > 60; GFR NON-AFRICAN AMERICAN 50
[2017-07-16] MEDS: Multivitamin With Minerals Tab PO SCH (08:25)
[2017-07-16] MEDS: POLYETHYLENE GLYCOL 3350 17 GM/Dose PACKET PO SCH (09:17)
[2017-07-16] MEDS ORDERED: Potassium Chloride 40 mEq/30 ml LIQ UD PO ONE (10:10)
[2017-07-16] MEDS: VITAMIN C 500MG PO SCH (10:30)
[2017-07-16] MEDS: Nystatin 100,000 Units/gm Topical Pow(15 gm) TOP SCH (10:31)
[2017-07-16] MEDS: guaiFENesin-DM 600-30 mg ER Tab PO SCH ×2 (10:32→17:28)
--- NOTE | 2017-07-16 11:25 | CP.PCM.PN ---
<Luther Corbin - Last Filed: 07/16/17 11:31> Subjective - Date & Time of Evaluation Date of Evaluation: 07/16/17 Time of Evaluation: 11:21 - Subjective Subjective: Patient seen and examined at bedside. Patient doing well with no acute overnight events. Patient still complaining of mild cough. Patient also complains of right knee soreness after physical therapy. Denies chest pain, shortness of breath, nausea, vomiting, diarrhea, fever, chills. Objective - Vital Signs/Intake and Output Vital Signs (last 24 hours): Temp Pulse Resp BP Pulse Ox 98.8 F 90 20 118/64 97 07/16/17 08:00 07/16/17 09:22 07/16/17 08:00 07/16/17 09:22 07/16/17 08:00 Intake and Output: 07/16/17 07/16/17 06:59 18:59 Intake Total 360 Balance 360 - Medications Medications: Current Medications Acetaminophen (Tylenol 325mg Tab) 650 mg PO Q4 PRN PRN Reason: Fever >100.4 F Last Admin: 07/10/17 22:42 Dose: 650 mg Acetaminophen/Butalbital/Caffeine (Fioricet) 1 tab PO Q4H PRN PRN Reason: Headache Last Admin: 07/15/17 09:07 Dose: 1 tab Albuterol/Ipratropium (Duoneb 3 Mg/0.5 Mg (3 Ml) Ud) 3 ml IH [id number] PRN PRN Reason: Shortness of Breath Last Admin: 07/15/17 00:51 Dose: 3 ml Benzonatate (Tessalon Perles) 100 mg PO TID [facility] Last Admin: 07/16/17 09:17 Dose: 100 mg Docusate Sodium (Colace) 100 mg PO DAILY [facility] Last Admin: 07/16/17 09:17 Dose: Not Given Ferrous Sulfate (Feosol) 324 mg PO TID [facility] Last Admin: 07/16/17 09:17 Dose: 324 mg Guaifenesin (Robitussin) 100 mg PO Q4H PRN PRN Reason: Cough Last Admin: 07/16/17 01:28 Dose: 100 mg Guaifenesin/Dextromethorphan (Mucinex-Dm 600-30 Mg) 1 tab PO BID [facility] Last Admin: 07/16/17 10:32 Dose: 1 tab Heparin Sodium (Porcine) (Heparin) 5,000 units SC Q12 [facility] PRN Reason: Protocol Last Admin: 07/16/17 09:16 Dose: 5,000 units Home Med (Home Med) 1 unit PO DAILY [facility] Last Admin: 07/16/17 10:30 Dose: 1 unit Metoprolol Tartrate (Lopressor) 25 mg PO TID [facility] Last Admin: 07/16/17 09:22 Dose: 25 mg Multi-Ingredient Cream (Hydrocerin Cream) 1 ea TOP DAILY [facility] Last Admin: 07/15/17 09:03 Dose: 1 applic Multivitamins/Minerals (Therapeutic-M Tab) 1 tab PO 0800 [facility] Last Admin: 07/16/17 08:25 Dose: 1 tab Nystatin (Nystop Topical Powder) 1 gm TOP DAILY [facility] Last Admin: 07/16/17 10:31 Dose: 1 applic Pantoprazole Sodium (Protonix Ec Tab) 40 mg PO 0600 [facility] Last Admin: 07/16/17 05:40 Dose: 40 mg Polyethylene Glycol (Miralax) 17 gm PO BID [facility] Last Admin: 07/16/17 09:17 Dose: Not Given Zinc Sulfate (Zinc Sulfate 220 Mg Cap) 220 mg PO DAILY [facility] Last Admin: 07/16/17 09:17 Dose: 220 mg - Labs Labs: 07/16/17 06:30 07/16/17 06:30 PT 13.1 SECONDS (9.4-12.5) H 06/15/17 11:00 INR 1.19 (0.93-1.08) H 06/15/17 11:00 APTT 31.3 Seconds (25.1-36.5) 06/15/17 11:00 - Constitutional Appears: Non-toxic, No Acute Distress - Head Exam Head Exam: ATRAUMATIC, NORMAL INSPECTION, NORMOCEPHALIC - ENT Exam ENT Exam: Mucous Membranes Moist, Normal Exam - Respiratory Exam Respiratory Exam: Clear to Ausculation Bilateral, NORMAL BREATHING PATTERN. absent: Rales, Rhonchi, Wheezes - Cardiovascular Exam Cardiovascular Exam: RRR, +S1, +S2 - GI/Abdominal Exam GI & Abdominal Exam: Soft, Normal Bowel Sounds. absent: Tenderness - Extremities Exam Extremities Exam: Pedal Edema. absent: Calf Tenderness - Neurological Exam Neurological Exam: Alert, Awake, Oriented x3 - Psychiatric Exam Psychiatric exam: Normal Affect, Normal Mood - Skin Skin Exam: Warm Additional comments: Chronic venous stasis skin changes in lower extremities bilaterally Assessment and Plan - Assessment and Plan (Free Text) Plan: 67 year old female with past medical history of asthma, arthritis, anemia, and obesity who initially presented with right lower extremity cellulitis and UTI. Patient was found to have cultures positive for Proteus mirabilis and beta hemolytic strep and completed course of Vancomycin and Azactam. Patient subsequently found to have Klebsiella UTI treated with Ciprofloxacin. Patient is awaiting placement in [facility], pending approval for Medicaid. 1. Nonproductive cough Initial chest x-ray negative Tylenol prn for fevers Tessalon pereles, Robitussin, and Mucinex for cough Duonebs prn for shortness of breath 2. Hypokalemia Repleted Will recheck with AM labs 3. Headache Continue fioricet PRN 4. Normocytic anemia Hemoglobin stable Monitor daily 5. GI/DVT ppx Heparin Protonix [facility], PGY-2 <Roger Wood - Last Filed: 07/16/17 15:30> Objective - Vital Signs/Intake and Output Vital Signs (last 24 hours): Temp Pulse Resp BP Pulse Ox 98.8 F 83 20 131/69 97 07/16/17 08:00 07/16/17 13:41 07/16/17 08:00 07/16/17 13:41 07/16/17 08:00 Intake and Output: 07/16/17 07/16/17 06:59 18:59 Intake Total 360 Balance 360 - Medications Medications: Current Medications Acetaminophen (Tylenol 325mg Tab) 650 mg PO Q4 PRN PRN Reason: Fever >100.4 F Last Admin: 07/10/17 22:42 Dose: 650 mg Acetaminophen/Butalbital/Caffeine (Fioricet) 1 tab PO Q4H PRN PRN Reason: Headache Last Admin: 07/15/17 09:07 Dose: 1 tab Albuterol/Ipratropium (Duoneb 3 Mg/0.5 Mg (3 Ml) Ud) 3 ml IH [id number] PRN PRN Reason: Shortness of Breath Last Admin: 07/15/17 00:51 Dose: 3 ml Benzonatate (Tessalon Perles) 100 mg PO TID [facility] Last Admin: 07/16/17 13:40 Dose: 100 mg Docusate Sodium (Colace) 100 mg PO DAILY [facility] Last Admin: 07/16/17 09:17 Dose: Not Given Ferrous Sulfate (Feosol) 324 mg PO TID [facility] Last Admin: 07/16/17 13:41 Dose: 324 mg Guaifenesin (Robitussin) 100 mg PO Q4H PRN PRN Reason: Cough Last Admin: 07/16/17 01:28 Dose: 100 mg Guaifenesin/Dextromethorphan (Mucinex-Dm 600-30 Mg) 1 tab PO BID [facility] Last Admin: 07/16/17 10:32 Dose: 1 tab Heparin Sodium (Porcine) (Heparin) 5,000 units SC Q12 [facility] PRN Reason: Protocol Last Admin: 07/16/17 09:16 Dose: 5,000 units Home Med (Home Med) 1 unit PO DAILY [facility] Last Admin: 07/16/17 10:30 Dose: 1 unit Metoprolol Tartrate (Lopressor) 25 mg PO TID [facility] Last Admin: 07/16/17 13:41 Dose: 25 mg Multi-Ingredient Cream (Hydrocerin Cream) 1 ea TOP DAILY [facility] Last Admin: 07/16/17 12:32 Dose: 1 applic Multivitamins/Minerals (Therapeutic-M Tab) 1 tab PO 0800 [facility] Last Admin: 07/16/17 08:25 Dose: 1 tab Nystatin (Nystop Topical Powder) 1 gm TOP DAILY [facility] Last Admin: 07/16/17 10:31 Dose: 1 applic Pantoprazole Sodium (Protonix Ec Tab) 40 mg PO 0600 [facility] Last Admin: 07/16/17 05:40 Dose: 40 mg Zinc Sulfate (Zinc Sulfate 220 Mg Cap) 220 mg PO DAILY [facility] Last Admin: 07/16/17 09:17 Dose: 220 mg - Labs Labs: 07/16/17 06:30 07/16/17 06:30 PT 13.1 SECONDS (9.4-12.5) H 06/15/17 11:00 INR 1.19 (0.93-1.08) H 06/15/17 11:00 APTT 31.3 Seconds (25.1-36.5) 06/15/17 11:00 Attending/Attestation - Attestation I have personally seen and examined this patient.: Yes I have fully participated in the care of the patient.: Yes I have reviewed all pertinent clinical information, including history, physical exam and plan: Yes Notes (Text): 07/16/17 15:29 Attending note; Patient seen and examined with resident. Patient is a 67 year old female with history of asthma, iron deficiency anemia, arthritis, obesity who was admitted for evaluation of bilateral lymphedema and RLE cellulitis of right ankle. Cellulitis has resolved. Klebsiella UTI;Patient has completed vancomycin and azactam. PT recommended TED. social work lecturer evaluation appreciated. Awaiting placement. Upon discharge patient will follow up in [facility] clinic.
[2017-07-16] MEDS: Hydrocerin(120 gm) TOP SCH (12:32)
--- NOTE | 2017-07-16 16:50 | CP.PCM.PN ---
Subjective - Date & Time of Evaluation Date of Evaluation: 07/16/17 Time of Evaluation: 14:15 - Subjective Subjective: Infectious Disease Follow Up: July 15, 2017 67 yo female presenting with 3 weeks of RLE ulceration, swelling and leaking from the wound as well as multiple falls in the past 3 weeks. The patient has an extensive medical history of asthma, arthritis, vitamin C deficiency, and possible thyroid disease. Draining RLE ulceration... cellulitis improved/resolved. Multiple chronic medical issues. Still with persistent dry cough. Otherwise stable. Mild erythema and excoriation of the folds in the abdomen and under the breasts. Fevers up to 100.8 F two nights ago. Patient making few complaints. The patient has remained in bed. Nursing and aides had noted that the patient's friend "Chris" has encouraged the patient to stay in bed in order to get to a group home or subacute facility. "Chris" was the person the patient was living with prior to coming to [facility]. Also noted that the patient has had a hacking cough the last couple of days. Afebrile the several days now. CT scan of chest done. CT shows mild vascular congestion and no infiltrates. No additional issues. Social Issues. UTI with Klebsiella growth. Sensitive to Cipro. Completed Cipro course. No new issues. Objective - Vital Signs/Intake and Output Vital Signs (last 24 hours): Temp Pulse Resp BP Pulse Ox 98.8 F 83 20 131/69 97 07/16/17 08:00 07/16/17 13:41 07/16/17 08:00 07/16/17 13:41 07/16/17 08:00 Intake and Output: 07/16/17 07/16/17 06:59 18:59 Intake Total 360 Balance 360 - Medications Medications: Current Medications Acetaminophen (Tylenol 325mg Tab) 650 mg PO Q4 PRN PRN Reason: Fever >100.4 F Last Admin: 07/10/17 22:42 Dose: 650 mg Acetaminophen/Butalbital/Caffeine (Fioricet) 1 tab PO Q4H PRN PRN Reason: Headache Last Admin: 07/15/17 09:07 Dose: 1 tab Albuterol/Ipratropium (Duoneb 3 Mg/0.5 Mg (3 Ml) Ud) 3 ml IH [id number] PRN PRN Reason: Shortness of Breath Last Admin: 07/15/17 00:51 Dose: 3 ml Benzonatate (Tessalon Perles) 100 mg PO TID [facility] Last Admin: 07/16/17 13:40 Dose: 100 mg Docusate Sodium (Colace) 100 mg PO DAILY [facility] Last Admin: 07/16/17 09:17 Dose: Not Given Ferrous Sulfate (Feosol) 324 mg PO TID [facility] Last Admin: 07/16/17 13:41 Dose: 324 mg Guaifenesin (Robitussin) 100 mg PO Q4H PRN PRN Reason: Cough Last Admin: 07/16/17 01:28 Dose: 100 mg Guaifenesin/Dextromethorphan (Mucinex-Dm 600-30 Mg) 1 tab PO BID [facility] Last Admin: 07/16/17 10:32 Dose: 1 tab Heparin Sodium (Porcine) (Heparin) 5,000 units SC Q12 [facility] PRN Reason: Protocol Last Admin: 07/16/17 09:16 Dose: 5,000 units Home Med (Home Med) 1 unit PO DAILY [facility] Last Admin: 07/16/17 10:30 Dose: 1 unit Metoprolol Tartrate (Lopressor) 25 mg PO TID [facility] Last Admin: 07/16/17 13:41 Dose: 25 mg Multi-Ingredient Cream (Hydrocerin Cream) 1 ea TOP DAILY [facility] Last Admin: 07/16/17 12:32 Dose: 1 applic Multivitamins/Minerals (Therapeutic-M Tab) 1 tab PO 0800 [facility] Last Admin: 07/16/17 08:25 Dose: 1 tab Nystatin (Nystop Topical Powder) 1 gm TOP DAILY [facility] Last Admin: 07/16/17 10:31 Dose: 1 applic Pantoprazole Sodium (Protonix Ec Tab) 40 mg PO 0600 [facility] Last Admin: 07/16/17 05:40 Dose: 40 mg Zinc Sulfate (Zinc Sulfate 220 Mg Cap) 220 mg PO DAILY [facility] Last Admin: 07/16/17 09:17 Dose: 220 mg - Labs Labs: 07/16/17 06:30 07/16/17 06:30 PT 13.1 SECONDS (9.4-12.5) H 06/15/17 11:00 INR 1.19 (0.93-1.08) H 06/15/17 11:00 APTT 31.3 Seconds (25.1-36.5) 06/15/17 11:00 - Constitutional Appears: Non-toxic, No Acute Distress, Chronically Ill - Head Exam Head Exam: ATRAUMATIC, NORMOCEPHALIC - Eye Exam Eye Exam: EOMI, PERRL Pupil Exam: NORMAL ACCOMODATION, PERRL - ENT Exam ENT Exam: Mucous Membranes Moist, Normal External Ear Exam, TM's Normal Bilaterally - Neck Exam Neck Exam: Full ROM, Normal Inspection - Respiratory Exam Respiratory Exam: Clear to Ausculation Bilateral, Rales, Rhonchi, Wheezes, NORMAL BREATHING PATTERN - Cardiovascular Exam Cardiovascular Exam: REGULAR RHYTHM, RRR, +S1, +S2 - GI/Abdominal Exam GI & Abdominal Exam: Soft, Normal Bowel Sounds. absent: Distended, Tenderness - Extremities Exam Extremities Exam: Full ROM, Normal Inspection - Neurological Exam Neurological Exam: Alert, Awake, CN II-XII Intact, Oriented x3 - Psychiatric Exam Psychiatric exam: Normal Affect, Normal Mood - Skin Skin Exam: Intact, Normal Color Assessment and Plan - Assessment and Plan (Free Text) Assessment: 67 yo female with multiple medical issues with PCN allergy diagnosed as a teenager verified by an Monorail Operator. The patient with leukocytosis. Await cultures especially urine cultures. Diabetes and HTN history? Local wound care. Elevated ESR and C-reactive protein. Completed Vancomycin and Aztreonam for antibiotic coverage. UTI with E. coli sensitive to Azactam. Was on Vancomycin for cellulitis IV. For UTI for 5-7 days treatment... completed. Supportive care. Cellulitis appears improved. No new issues. Social issues currently. Homeless at this time. CT scan of chest done. No infiltrates seen. Afebrile the past 24 hours. Mild congestion noted in CT with small pulmonary effusions. No leukocytosis. Slightly elevated procalcitonin (0.66) which is undefined without stronger evidence for pneumonia. When encouraged, she is able to use the incentive spirometer without issues and ambulate with minimal difficulty. UTI with Klebsiella. Sensitive to Cipro. Was on Cipro for 5 day course at 500mg PO BID. Completed the antibiotic course. Stable currently. No new issues. Thank you for allowing me to participate in the care of the patient, we will follow with you.
[2017-07-17] MEDS: Pantoprazole 40 mg EC Tab PO SCH (06:29)
[2017-07-17] MEDS: Multivitamin With Minerals Tab PO SCH (08:41)
[2017-07-17 09:41] LABS: ALB/GLOB RATIO 0.8 (1.1-1.8); ALBUMIN 3.2 g/dL (3.0-4.8); ALT/SGPT 21 U/L (7-56); AST/SGOT 30 U/L (14-36); BLOOD UREA NITROGEN 16 mg/dL (7-21); CALCIUM 8.6 mg/dL (8.4-10.5); GFR AFRICAN-AMERICAN > 60; GFR NON-AFRICAN AMERICAN 50
[2017-07-17] MEDS: Nystatin 100,000 Units/gm Topical Pow(15 gm) TOP SCH (10:00)
[2017-07-17] MEDS: Hydrocerin(120 gm) TOP SCH (10:00)
[2017-07-17] MEDS: VITAMIN C 500MG PO SCH (10:01)
[2017-07-17] MEDS: guaiFENesin-DM 600-30 mg ER Tab PO SCH ×2 (10:02→17:41)
--- NOTE | 2017-07-17 16:54 | CP.PCM.PN ---
Subjective - Date & Time of Evaluation Date of Evaluation: 07/17/17 Time of Evaluation: 15:00 - Subjective Subjective: Infectious Disease Follow Up: July 17, 2017 67 yo female presenting with 3 weeks of RLE ulceration, swelling and leaking from the wound as well as multiple falls in the past 3 weeks. The patient has an extensive medical history of asthma, arthritis, vitamin C deficiency, and possible thyroid disease. Draining RLE ulceration... cellulitis improved/resolved. Multiple chronic medical issues. Still with persistent dry cough. Otherwise stable. Mild erythema and excoriation of the folds in the abdomen and under the breasts. Fevers up to 100.8 F two nights ago. Patient making few complaints. The patient has remained in bed. Nursing and aides had noted that the patient's friend "Chris" has encouraged the patient to stay in bed in order to get to a alf or subacute facility. "Chris" was the person the patient was living with prior to [place] [facility] Also noted that the patient has had a hacking cough the last couple of days. Afebrile the several days now. CT scan of chest done. CT shows mild vascular congestion and no infiltrates. UTI with Klebsiella earlier in hospitalization but had treatment with Cipro that is now completed. No additional issues. Social Issues. Off antibiotics now. Objective - Vital Signs/Intake and Output Vital Signs (last 24 hours): Temp Pulse Resp BP Pulse Ox 98 F 83 22 135/69 99 07/17/17 00:00 07/17/17 13:33 07/17/17 00:00 07/17/17 13:33 07/17/17 00:00 Intake and Output: 07/17/17 07/17/17 06:59 18:59 Intake Total 660 600 Balance 660 600 - Medications Medications: Current Medications Acetaminophen (Tylenol 325mg Tab) 650 mg PO Q4 PRN PRN Reason: Fever >100.4 F Last Admin: 07/17/17 06:33 Dose: 650 mg Acetaminophen/Butalbital/Caffeine (Fioricet) 1 tab PO Q4H PRN PRN Reason: Headache Last Admin: 07/15/17 09:07 Dose: 1 tab Albuterol/Ipratropium (Duoneb 3 Mg/0.5 Mg (3 Ml) Ud) 3 ml IH [id number] PRN PRN Reason: Shortness of Breath Last Admin: 07/15/17 00:51 Dose: 3 ml Benzonatate (Tessalon Perles) 100 mg PO TID [facility] Last Admin: 07/17/17 13:33 Dose: 100 mg Docusate Sodium (Colace) 100 mg PO DAILY [facility] Last Admin: 07/17/17 10:02 Dose: Not Given Ferrous Sulfate (Feosol) 324 mg PO TID [facility] Last Admin: 07/17/17 13:33 Dose: 324 mg Guaifenesin (Robitussin) 100 mg PO Q4H PRN PRN Reason: Cough Last Admin: 07/16/17 01:28 Dose: 100 mg Guaifenesin/Dextromethorphan (Mucinex-Dm 600-30 Mg) 1 tab PO BID [facility] Last Admin: 07/17/17 10:02 Dose: 1 tab Heparin Sodium (Porcine) (Heparin) 5,000 units SC Q12 [facility] PRN Reason: Protocol Last Admin: 07/17/17 10:01 Dose: 5,000 units Home Med (Home Med) 1 unit PO DAILY [facility] Last Admin: 07/17/17 10:01 Dose: 1 unit Metoprolol Tartrate (Lopressor) 25 mg PO TID [facility] Last Admin: 07/17/17 13:33 Dose: 25 mg Multi-Ingredient Cream (Hydrocerin Cream) 1 ea TOP DAILY [facility] Last Admin: 07/17/17 10:00 Dose: 1 applic Multivitamins/Minerals (Therapeutic-M Tab) 1 tab PO 0800 [facility] Last Admin: 07/17/17 08:41 Dose: 1 tab Nystatin (Nystop Topical Powder) 1 gm TOP DAILY [facility] Last Admin: 07/17/17 10:00 Dose: 1 applic Pantoprazole Sodium (Protonix Ec Tab) 40 mg PO 0600 [facility] Last Admin: 07/17/17 06:29 Dose: 40 mg Zinc Sulfate (Zinc Sulfate 220 Mg Cap) 220 mg PO DAILY [facility] Last Admin: 07/17/17 10:00 Dose: 220 mg - Labs Labs: 07/16/17 06:30 07/17/17 06:05 PT 13.1 SECONDS (9.4-12.5) H 06/15/17 11:00 INR 1.19 (0.93-1.08) H 06/15/17 11:00 APTT 31.3 Seconds (25.1-36.5) 06/15/17 11:00 - Constitutional Appears: Non-toxic, No Acute Distress, Chronically Ill - Head Exam Head Exam: ATRAUMATIC, NORMOCEPHALIC - Eye Exam Eye Exam: EOMI, PERRL Pupil Exam: NORMAL ACCOMODATION, PERRL - ENT Exam ENT Exam: Mucous Membranes Moist, Normal External Ear Exam, TM's Normal Bilaterally - Neck Exam Neck Exam: Full ROM, Normal Inspection - Respiratory Exam Respiratory Exam: Clear to Ausculation Bilateral, NORMAL BREATHING PATTERN. absent: Rales, Rhonchi, Wheezes - Cardiovascular Exam Cardiovascular Exam: REGULAR RHYTHM, RRR, +S1, +S2 - GI/Abdominal Exam GI & Abdominal Exam: Soft, Normal Bowel Sounds. absent: Distended, Tenderness - Extremities Exam Extremities Exam: Full ROM, Normal Inspection - Neurological Exam Neurological Exam: Alert, Awake, CN II-XII Intact, Oriented x3 - Psychiatric Exam Psychiatric exam: Normal Affect, Normal Mood - Skin Skin Exam: Intact, Normal Color Assessment and Plan - Assessment and Plan (Free Text) Assessment: 67 yo female with multiple medical issues with PCN allergy diagnosed as a teenager verified by an Liner Replacer. The patient with leukocytosis. Await cultures especially urine cultures. Diabetes and HTN history? Local wound care. Elevated ESR and C-reactive protein. Completed Vancomycin and Aztreonam for antibiotic coverage. UTI with E. coli sensitive to Azactam. Was on Vancomycin for cellulitis IV. For UTI for 5-7 days treatment... completed. Supportive care. Cellulitis appears improved. No new issues. Social issues currently. Homeless at this time. CT scan of chest done. No infiltrates seen. Afebrile the past 24 hours. Mild congestion noted in CT with small pulmonary effusions. No leukocytosis. Slightly elevated procalcitonin (0.66) which is undefined without stronger evidence for pneumonia. When encouraged, she is able to use the incentive spirometer without issues and ambulate with minimal difficulty. UTI with Klebsiella. Sensitive to Cipro. Was on Cipro for 5 day course at 500mg PO BID. Completed the antibiotic course. Stable currently. No new issues. Off antibiotics at this time. Thank you for allowing me to participate in the care of the patient, we will follow with you.
--- NOTE | 2017-07-17 23:14 | CP.PCM.PN ---
Subjective - Date & Time of Evaluation Date of Evaluation: 07/17/17 Time of Evaluation: 10:00 - Subjective Subjective: Patient seen and examined at bedside. Sitting in bed in no acute distress. Awake , alert and communicative. No overnight issues reported. Objective - Vital Signs/Intake and Output Vital Signs (last 24 hours): Temp Pulse Resp BP Pulse Ox 98.2 F 82 21 139/68 97 07/17/17 16:00 07/17/17 17:41 07/17/17 16:00 07/17/17 17:41 07/17/17 16:00 Intake and Output: 07/17/17 07/18/17 18:59 06:59 Intake Total 600 660 Balance 600 660 - Medications Medications: Current Medications Acetaminophen (Tylenol 325mg Tab) 650 mg PO Q4 PRN PRN Reason: Fever >100.4 F Last Admin: 07/17/17 06:33 Dose: 650 mg Acetaminophen/Butalbital/Caffeine (Fioricet) 1 tab PO Q4H PRN PRN Reason: Headache Last Admin: 07/15/17 09:07 Dose: 1 tab Albuterol/Ipratropium (Duoneb 3 Mg/0.5 Mg (3 Ml) Ud) 3 ml IH [id number] PRN PRN Reason: Shortness of Breath Last Admin: 07/15/17 00:51 Dose: 3 ml Benzonatate (Tessalon Perles) 100 mg PO TID [facility] Last Admin: 07/17/17 17:41 Dose: 100 mg Docusate Sodium (Colace) 100 mg PO DAILY [facility] Last Admin: 07/17/17 10:02 Dose: Not Given Ferrous Sulfate (Feosol) 324 mg PO TID [facility] Last Admin: 07/17/17 17:41 Dose: 324 mg Guaifenesin (Robitussin) 100 mg PO Q4H PRN PRN Reason: Cough Last Admin: 07/16/17 01:28 Dose: 100 mg Heparin Sodium (Porcine) (Heparin) 5,000 units SC Q12 [facility] PRN Reason: Protocol Last Admin: 07/17/17 22:20 Dose: 5,000 units Home Med (Home Med) 1 unit PO DAILY [facility] Last Admin: 07/17/17 10:01 Dose: 1 unit Metoprolol Tartrate (Lopressor) 25 mg PO TID [facility] Last Admin: 07/17/17 17:41 Dose: 25 mg Multi-Ingredient Cream (Hydrocerin Cream) 1 ea TOP DAILY [facility] Last Admin: 07/17/17 10:00 Dose: 1 applic Multivitamins/Minerals (Therapeutic-M Tab) 1 tab PO 0800 [facility] Last Admin: 07/17/17 08:41 Dose: 1 tab Nystatin (Nystop Topical Powder) 1 gm TOP DAILY [facility] Last Admin: 07/17/17 10:00 Dose: 1 applic Pantoprazole Sodium (Protonix Ec Tab) 40 mg PO 0600 [facility] Last Admin: 07/17/17 06:29 Dose: 40 mg Zinc Sulfate (Zinc Sulfate 220 Mg Cap) 220 mg PO DAILY [facility] Last Admin: 07/17/17 10:00 Dose: 220 mg - Labs Labs: 07/16/17 06:30 07/17/17 06:05 PT 13.1 SECONDS (9.4-12.5) H 06/15/17 11:00 INR 1.19 (0.93-1.08) H 06/15/17 11:00 APTT 31.3 Seconds (25.1-36.5) 06/15/17 11:00 - Constitutional Appears: Well, No Acute Distress - Head Exam Head Exam: ATRAUMATIC, NORMAL INSPECTION - Eye Exam Eye Exam: Normal appearance Pupil Exam: PERRL - ENT Exam ENT Exam: Mucous Membranes Moist, Normal Exam - Neck Exam Neck Exam: Full ROM, Normal Inspection - Respiratory Exam Respiratory Exam: Decreased Breath Sounds, Clear to Ausculation Bilateral - Cardiovascular Exam Cardiovascular Exam: RRR, +S1, +S2 - GI/Abdominal Exam GI & Abdominal Exam: Soft, Normal Bowel Sounds - Extremities Exam Extremities Exam: Joint Swelling, Normal Inspection - Back Exam Back Exam: NORMAL INSPECTION - Neurological Exam Neurological Exam: Alert, Awake - Psychiatric Exam Psychiatric exam: Normal Mood - Skin Skin Exam: Dry, Warm Assessment and Plan - Assessment and Plan (Free Text) Plan: Patient is a 67 year old female with history of asthma, iron deficiency anemia, arthritis, obesity who was admitted for evaluation of bilateral lymphedema and RLE cellulitis of right ankle. Cellulitis has resolved. Klebsiella UTI;Patient has completed vancomycin and azactam. PT recommended TED. social professionals evaluation appreciated. Awaiting placement. OOB to chair, monitor O2 requirements.ID follow up appreciated.
[2017-07-18] MEDS: guaiFENesin 100 mg/5 ml Syrup UD PO PRN (03:08)
[2017-07-18 06:48] LABS: ALB/GLOB RATIO 0.8 (1.1-1.8); ALBUMIN 3.1 g/dL (3.0-4.8); ALT/SGPT 28 U/L (7-56); AST/SGOT 40 U/L (14-36); BLOOD UREA NITROGEN 14 mg/dL (7-21); CALCIUM 8.6 mg/dL (8.4-10.5); GFR AFRICAN-AMERICAN > 60; GFR NON-AFRICAN AMERICAN 55
[2017-07-18] MEDS: Multivitamin With Minerals Tab PO SCH (09:00)
[2017-07-18] MEDS: Nystatin 100,000 Units/gm Topical Pow(15 gm) TOP SCH (11:00)
[2017-07-18] MEDS: VITAMIN C 500MG PO SCH (11:00)
[2017-07-18] MEDS: Hydrocerin(120 gm) TOP SCH (11:00)
--- NOTE | 2017-07-18 13:24 | CP.PCM.PN ---
<BrettBernard Hays - Last Filed: 07/18/17 13:06> Subjective - Date & Time of Evaluation Date of Evaluation: 07/18/17 Time of Evaluation: 13:06 - Subjective Subjective: Patient was seen and examined at bedside. Patient states that she feels groggy today. No other complaints, no acute overnight events per nursing. Objective - Vital Signs/Intake and Output Vital Signs (last 24 hours): Temp Pulse Resp BP Pulse Ox 99 F 78 20 149/68 96 07/18/17 09:17 07/18/17 11:07 07/18/17 09:17 07/18/17 11:07 07/18/17 09:17 Intake and Output: 07/18/17 07/18/17 06:59 18:59 Intake Total 900 Balance 900 - Medications Medications: Current Medications Acetaminophen (Tylenol 325mg Tab) 650 mg PO Q4 PRN PRN Reason: Fever >100.4 F Last Admin: 07/18/17 11:05 Dose: 650 mg Acetaminophen/Butalbital/Caffeine (Fioricet) 1 tab PO Q4H PRN PRN Reason: Headache Last Admin: 07/15/17 09:07 Dose: 1 tab Albuterol/Ipratropium (Duoneb 3 Mg/0.5 Mg (3 Ml) Ud) 3 ml IH [id number] PRN PRN Reason: Shortness of Breath Last Admin: 07/15/17 00:51 Dose: 3 ml Benzonatate (Tessalon Perles) 100 mg PO TID [facility] Last Admin: 07/18/17 11:00 Dose: 100 mg Docusate Sodium (Colace) 100 mg PO DAILY [facility] Last Admin: 07/18/17 11:09 Dose: Not Given Ferrous Sulfate (Feosol) 324 mg PO TID [facility] Last Admin: 07/18/17 11:00 Dose: 324 mg Guaifenesin (Robitussin) 100 mg PO Q4H PRN PRN Reason: Cough Last Admin: 07/18/17 03:08 Dose: 100 mg Heparin Sodium (Porcine) (Heparin) 5,000 units SC Q12 ESCOBAR PRN Reason: Protocol Last Admin: 07/18/17 11:00 Dose: 5,000 units Home Med (Home Med) 1 unit PO DAILY [facility] Last Admin: 07/18/17 11:00 Dose: 1 unit Metoprolol Tartrate (Lopressor) 25 mg PO TID [facility] Last Admin: 07/18/17 11:07 Dose: 25 mg Multi-Ingredient Cream (Hydrocerin Cream) 1 ea TOP DAILY [facility] Last Admin: 07/18/17 11:00 Dose: 1 applic Multivitamins/Minerals (Therapeutic-M Tab) 1 tab PO 0800 [facility] Last Admin: 07/18/17 09:00 Dose: 1 tab Nystatin (Nystop Topical Powder) 1 gm TOP DAILY [facility] Last Admin: 07/18/17 11:00 Dose: 1 applic Pantoprazole Sodium (Protonix Ec Tab) 40 mg PO 0600 [facility] Last Admin: 07/17/17 06:29 Dose: 40 mg Zinc Sulfate (Zinc Sulfate 220 Mg Cap) 220 mg PO DAILY [facility] Last Admin: 07/18/17 11:00 Dose: 220 mg - Labs Labs: 07/16/17 06:30 07/18/17 06:00 PT 13.1 SECONDS (9.4-12.5) H 06/15/17 11:00 INR 1.19 (0.93-1.08) H 06/15/17 11:00 APTT 31.3 Seconds (25.1-36.5) 06/15/17 11:00 - Constitutional Appears: Well - Head Exam Head Exam: ATRAUMATIC, NORMAL INSPECTION, NORMOCEPHALIC - Eye Exam Eye Exam: EOMI, Normal appearance, PERRL Pupil Exam: NORMAL ACCOMODATION, PERRL - ENT Exam ENT Exam: Mucous Membranes Moist, Normal Exam - Neck Exam Neck Exam: Full ROM, Normal Inspection. absent: Lymphadenopathy - Respiratory Exam Respiratory Exam: Clear to Ausculation Bilateral, NORMAL BREATHING PATTERN - Cardiovascular Exam Cardiovascular Exam: REGULAR RHYTHM, +S1, +S2. absent: Murmur - GI/Abdominal Exam GI & Abdominal Exam: Distended (Soft, non tender, but gradually more distended since Wednesday. Tympanic percussion. Normal bowel sounds), Soft, Normal Bowel Sounds. absent: Tenderness - Extremities Exam Extremities Exam: Full ROM, Normal Capillary Refill, Normal Inspection. absent : Joint Swelling, Pedal Edema - Back Exam Back Exam: NORMAL INSPECTION - Neurological Exam Neurological Exam: Alert, Awake, CN II-XII Intact, Normal Gait, Oriented x3 - Psychiatric Exam Psychiatric exam: Normal Affect, Normal Mood - Skin Skin Exam: Dry, Intact, Normal Color, Warm Assessment and Plan - Assessment and Plan (Free Text) Assessment: A/P 67 year old female with past medical history of asthma, arthritis, anemia, and obesity who initially presented with right lower extremity cellulitis and UTI. Patient was found to have cultures positive for Proteus mirabilis and beta hemolytic strep and completed course of Vancomycin and Azactam. Patient subsequently found to have Klebsiella UTI treated with Ciprofloxacin. Patient is awaiting placement in [facility], pending approval for Medicaid. Abdominal Distension - Patient progressively becoming distended since Wednesday - CT Abdomen Pelvis with PO and IV Contrast ordered Nonproductive cough - Initial chest x-ray negative, F/u CXR and CT Chest are not indicative of acute disease - Tylenol prn for fevers - Tessalon pereles, Robitussin, and Mucinex for cough - Duonebs prn for shortness of breath - Pulm consult added 07/18/17: Dr. Love Hypokalemia: Resolved - Repleted - Will recheck with AM labs Headache - Continue fioricet PRN Normocytic anemia - Hemoglobin stable - Monitor daily GI/DVT ppx: Heparin, Protonix Dispo: Patient awaiting placement in [facility]. Per SW note on , 4 people are ahead of her in line with Medicaid. <Edilson Crook - Last Filed: 07/18/17 18:25> Objective - Vital Signs/Intake and Output Vital Signs (last 24 hours): Temp Pulse Resp BP Pulse Ox 99 F 73 20 148/74 96 07/18/17 09:17 07/18/17 17:51 07/18/17 09:17 07/18/17 17:51 07/18/17 09:17 Intake and Output: 07/18/17 07/18/17 06:59 18:59 Intake Total 900 640 Output Total 1 Balance 900 639 - Medications Medications: Current Medications Acetaminophen (Tylenol 325mg Tab) 650 mg PO Q4 PRN PRN Reason: Fever >100.4 F Last Admin: 07/18/17 11:05 Dose: 650 mg Acetaminophen/Butalbital/Caffeine (Fioricet) 1 tab PO Q4H PRN PRN Reason: Headache Last Admin: 07/15/17 09:07 Dose: 1 tab Albuterol/Ipratropium (Duoneb 3 Mg/0.5 Mg (3 Ml) Ud) 3 ml IH [id number] PRN PRN Reason: Shortness of Breath Last Admin: 07/15/17 00:51 Dose: 3 ml Benzonatate (Tessalon Perles) 100 mg PO TID [facility] Last Admin: 07/18/17 17:57 Dose: 100 mg Docusate Sodium (Colace) 100 mg PO DAILY [facility] Last Admin: 07/18/17 11:09 Dose: Not Given Ferrous Sulfate (Feosol) 324 mg PO TID [facility] Last Admin: 07/18/17 17:57 Dose: 324 mg Guaifenesin (Robitussin) 100 mg PO Q4H PRN PRN Reason: Cough Last Admin: 07/18/17 03:08 Dose: 100 mg Heparin Sodium (Porcine) (Heparin) 5,000 units SC Q12 ESCOBAR PRN Reason: Protocol Last Admin: 07/18/17 11:00 Dose: 5,000 units Home Med (Home Med) 1 unit PO DAILY [facility] Last Admin: 07/18/17 11:00 Dose: 1 unit Metoprolol Tartrate (Lopressor) 25 mg PO TID [facility] Last Admin: 07/18/17 17:51 Dose: 25 mg Multi-Ingredient Cream (Hydrocerin Cream) 1 ea TOP DAILY [facility] Last Admin: 07/18/17 11:00 Dose: 1 applic Multivitamins/Minerals (Therapeutic-M Tab) 1 tab PO 0800 [facility] Last Admin: 07/18/17 09:00 Dose: 1 tab Nystatin (Nystop Topical Powder) 1 gm TOP DAILY [facility] Last Admin: 07/18/17 11:00 Dose: 1 applic Pantoprazole Sodium (Protonix Ec Tab) 40 mg PO 0600 [facility] Last Admin: 07/17/17 06:29 Dose: 40 mg Zinc Sulfate (Zinc Sulfate 220 Mg Cap) 220 mg PO DAILY [facility] Last Admin: 07/18/17 11:00 Dose: 220 mg - Labs Labs: 07/16/17 06:30 07/18/17 06:00 PT 13.1 SECONDS (9.4-12.5) H 06/15/17 11:00 INR 1.19 (0.93-1.08) H 06/15/17 11:00 APTT 31.3 Seconds (25.1-36.5) 06/15/17 11:00 Attending/Attestation - Attestation I have personally seen and examined this patient.: Yes I have fully participated in the care of the patient.: Yes I have reviewed all pertinent clinical information, including history, physical exam and plan: Yes Notes (Text): 07/18/17 18:22 Patient seen and examined independently. Labs, vitals and notes reviewed. She doesn't report any new symptoms. On exam and speaking with the RN/ Resident, abdominal distention worse in past 48 hours, plan to obtain imaging study. No pain, nausea/vomiting. Agree with the plan to obtain pulmonary consult, taper off O2 and increase mobilization.
[2017-07-18] MEDS ORDERED: Iohexol 350 MG/100 ML VIAL ONE (16:31)
--- NOTE | 2017-07-18 18:08 | CP.PCM.PN ---
Subjective - Date & Time of Evaluation Date of Evaluation: 07/18/17 Time of Evaluation: 16:15 - Subjective Subjective: Infectious Disease Follow Up: July 18, 2017 67 yo female presenting with 3 weeks of RLE ulceration, swelling and leaking from the wound as well as multiple falls in the past 3 weeks. The patient has an extensive medical history of asthma, arthritis, vitamin C deficiency, and possible thyroid disease. Draining RLE ulceration... cellulitis improved/resolved. Multiple chronic medical issues. Still with persistent dry cough. Otherwise stable. Mild erythema and excoriation of the folds in the abdomen and under the breasts. Fevers up to 100.8 F two nights ago. Patient making few complaints. The patient has remained in bed. Nursing and aides had noted that the patient's friend "Chris" has encouraged the patient to stay in bed in order to get to a custodial or subacute facility. "Chris" was the person the patient was living with prior to coming to [facility]. Also noted that the patient has had a hacking cough the last couple of days. Afebrile the several days now. CT scan of chest done. CT shows mild vascular congestion and no infiltrates. UTI with Klebsiella earlier in hospitalization but had treatment with Cipro that is now completed. No additional issues. Social Issues. Off antibiotics now. No new significant complaints at this time. Objective - Vital Signs/Intake and Output Vital Signs (last 24 hours): Temp Pulse Resp BP Pulse Ox 99 F 73 20 148/74 96 07/18/17 09:17 07/18/17 17:51 07/18/17 09:17 07/18/17 17:51 07/18/17 09:17 Intake and Output: 07/18/17 07/18/17 06:59 18:59 Intake Total 900 640 Output Total 1 Balance 900 639 - Medications Medications: Current Medications Acetaminophen (Tylenol 325mg Tab) 650 mg PO Q4 PRN PRN Reason: Fever >100.4 F Last Admin: 07/18/17 11:05 Dose: 650 mg Acetaminophen/Butalbital/Caffeine (Fioricet) 1 tab PO Q4H PRN PRN Reason: Headache Last Admin: 07/15/17 09:07 Dose: 1 tab Albuterol/Ipratropium (Duoneb 3 Mg/0.5 Mg (3 Ml) Ud) 3 ml IH [id number] PRN PRN Reason: Shortness of Breath Last Admin: 07/15/17 00:51 Dose: 3 ml Benzonatate (Tessalon Perles) 100 mg PO TID [facility] Last Admin: 07/18/17 17:57 Dose: 100 mg Docusate Sodium (Colace) 100 mg PO DAILY [facility] Last Admin: 07/18/17 11:09 Dose: Not Given Ferrous Sulfate (Feosol) 324 mg PO TID [facility] Last Admin: 07/18/17 17:57 Dose: 324 mg Guaifenesin (Robitussin) 100 mg PO Q4H PRN PRN Reason: Cough Last Admin: 07/18/17 03:08 Dose: 100 mg Heparin Sodium (Porcine) (Heparin) 5,000 units SC Q12 ESCOBAR PRN Reason: Protocol Last Admin: 07/18/17 11:00 Dose: 5,000 units Home Med (Home Med) 1 unit PO DAILY [facility] Last Admin: 07/18/17 11:00 Dose: 1 unit Metoprolol Tartrate (Lopressor) 25 mg PO TID [facility] Last Admin: 07/18/17 17:51 Dose: 25 mg Multi-Ingredient Cream (Hydrocerin Cream) 1 ea TOP DAILY [facility] Last Admin: 07/18/17 11:00 Dose: 1 applic Multivitamins/Minerals (Therapeutic-M Tab) 1 tab PO 0800 [facility] Last Admin: 07/18/17 09:00 Dose: 1 tab Nystatin (Nystop Topical Powder) 1 gm TOP DAILY [facility] Last Admin: 07/18/17 11:00 Dose: 1 applic Pantoprazole Sodium (Protonix Ec Tab) 40 mg PO 0600 [facility] Last Admin: 07/17/17 06:29 Dose: 40 mg Zinc Sulfate (Zinc Sulfate 220 Mg Cap) 220 mg PO DAILY [facility] Last Admin: 07/18/17 11:00 Dose: 220 mg - Labs Labs: 07/16/17 06:30 07/18/17 06:00 PT 13.1 SECONDS (9.4-12.5) H 06/15/17 11:00 INR 1.19 (0.93-1.08) H 06/15/17 11:00 APTT 31.3 Seconds (25.1-36.5) 06/15/17 11:00 - Constitutional Appears: Non-toxic, No Acute Distress, Chronically Ill - Head Exam Head Exam: ATRAUMATIC, NORMOCEPHALIC - Eye Exam Eye Exam: EOMI, PERRL Pupil Exam: NORMAL ACCOMODATION, PERRL - ENT Exam ENT Exam: Mucous Membranes Moist, Normal External Ear Exam, TM's Normal Bilaterally - Neck Exam Neck Exam: Full ROM, Normal Inspection - Respiratory Exam Respiratory Exam: Clear to Ausculation Bilateral, NORMAL BREATHING PATTERN. absent: Rales, Rhonchi, Wheezes - Cardiovascular Exam Cardiovascular Exam: REGULAR RHYTHM, RRR, +S1, +S2 - GI/Abdominal Exam GI & Abdominal Exam: Soft, Normal Bowel Sounds. absent: Distended, Tenderness - Extremities Exam Extremities Exam: Full ROM, Normal Inspection - Neurological Exam Neurological Exam: Alert, Awake, CN II-XII Intact, Oriented x3 - Psychiatric Exam Psychiatric exam: Normal Affect, Normal Mood - Skin Skin Exam: Intact, Normal Color Assessment and Plan - Assessment and Plan (Free Text) Assessment: 67 yo female with multiple medical issues with PCN allergy diagnosed as a teenager verified by an Communications Clerk. The patient with leukocytosis. Await cultures especially urine cultures. Diabetes and HTN history? Local wound care. Elevated ESR and C-reactive protein. Completed Vancomycin and Aztreonam for antibiotic coverage. UTI with E. coli sensitive to Azactam. Was on Vancomycin for cellulitis IV. For UTI for 5-7 days treatment... completed. Supportive care. Cellulitis appears improved. No new issues. Social issues currently. Homeless at this time. CT scan of chest done. No infiltrates seen. Afebrile the past 24 hours. Mild congestion noted in CT with small pulmonary effusions. No leukocytosis. Slightly elevated procalcitonin (0.66) which is undefined without stronger evidence for pneumonia. When encouraged, she is able to use the incentive spirometer without issues and ambulate with minimal difficulty. UTI with Klebsiella. Sensitive to Cipro. Was on Cipro for 5 day course at 500mg PO BID. Completed the antibiotic course. Stable currently. No new issues. Off antibiotics at this time. Thank you for allowing me to participate in the care of the patient, we will follow with you.
--- NOTE | 2017-07-18 18:34 | CT ---
EXAM: CT Abdomen and Pelvis With Intravenous Contrast EXAM DATE/TIME: 07/18/2017 12:21 PM CLINICAL HISTORY: 67 years old, female; Signs and symptoms; Bloating; Additional info: Distended belly - give very little contrast. Pt given only 8oz of po contrast few minutes prior to scan TECHNIQUE: Axial computed tomography images of the abdomen and pelvis with intravenous contrast. All CT scans at this facility use one or more dose reduction techniques, viz.: automated exposure control; ma/kV adjustment per patient size (including targeted exams where dose is matched to indication; i.e. head); or iterative reconstruction technique. Coronal and sagittal reformatted images were created and reviewed. CONTRAST: 100 mL of omni 350 administered intravenously. COMPARISON: There are no prior studies for comparison. FINDINGS: Artifacts: Streak artifact degrades image quality. Lower thorax: The heart is mildly enlarged. There is interstitial and airspace disease at both lung bases. There may be small effusions. There is a small hiatal hernia. ABDOMEN: Liver: There is fatty infiltration of the liver. Gallbladder and bile ducts: Gallbladder is distended. There are small dependent stones.Common duct is unremarkable. Pancreas: Pancreas is mildly atrophic. Spleen: unremarkable Adrenals: Adrenals are unremarkable. Kidneys and ureters: There is mildly heterogeneous perfusion of the renal cortex bilaterally.There is no pelvocaliectasis or ureterectasis. Stomach and bowel: Stomach is partially distended with contrast. There is an air-fluid level. Rotation is normal. Streak and motion limits evaluation of small bowel. Proximal small bowel is mildly distended. There are scattered air-fluid levels. There is no obstruction. Terminal ileum is distended with air. Appendix is not visualized. There is no pericecal inflammation. There is a moderately large amount of stool in the right and transverse colon. Descending colon is collapsed. There is a large amount of air in the sigmoid. There is a fecal bolus in the rectum. Appendix: See stomach and bowel PELVIS: Bladder: unremarkable Reproductive: Uterus and adnexal structures are unremarkable. ABDOMEN and PELVIS: Intraperitoneal space: There is a small amount of free fluid in the pelvis. There is no free air Bones/joints: Bony structures are osteopenic.There are degenerative changes in the osseus structures. Soft tissues: There is mild body wall edema. There are multiple small subcutaneous nodules in the abdominal wall Vasculature: 1.3 cm left upper quadrant nodular opacity may represent a small splenic artery aneurysm. There are vascular calcifications. There are multiple vascular collaterals in both inguinal regions. Lymph nodes: There is no pathologic adenopathy. IMPRESSION: Interstitial and airspace disease in the lung bases; mild cardiomegaly and atherosclerotic disease; fatty liver; gallstones; possible pyelonephritis; mild ileus, no obstruction; constipation with fecal impaction Additional findings as described above.
[2017-07-18] MEDS ORDERED: Iohexol 240 (50 ml) ONE (21:12)
[2017-07-19] MEDS: Pantoprazole 40 mg EC Tab PO SCH (06:13)
[2017-07-19 07:18] LABS: ALB/GLOB RATIO 0.8 (1.1-1.8); ALBUMIN 3.1 g/dL (3.0-4.8); ALT/SGPT 29 U/L (7-56); AST/SGOT 37 U/L (14-36); BLOOD UREA NITROGEN 12 mg/dL (7-21); CALCIUM 8.7 mg/dL (8.4-10.5); GFR AFRICAN-AMERICAN > 60; GFR NON-AFRICAN AMERICAN > 60
[2017-07-19 09:56] LABS: BASO # 0.06 K/mm3 (0.0-2.0); BASO % 0.7 % (0.0-3.0); EOS % 10.5 % (1.5-5.0); GRAN # 6.01 (1.4-6.5); GRAN % 65.8 % (50.0-68.0); HEMOGLOBIN 9.1 g/dL (12.0-16.0); LYMPH # 1.4 (1.2-3.4); LYMPH % 15.8 % (22.0-35.0); MEAN CELL VOLUME 83.9 fl (80.0-105.0); MEAN CORPUSCULAR HEMOGLOBIN 25.2 pg (25.0-35.0); MEAN PLATELET VOLUME 9.2 fl (7.0-11.0); MONO # 0.7 (0.1-0.6); MONO % 7.2 % (1.0-6.0); RBC 3.61 10^6/uL (3.5-6.1); RED CELL DISTRIBUTION WIDTH 24.5 % (11.5-14.5); WHITE BLOOD COUNT 9.1 10^3/ul (4.5-11.0)
[2017-07-19] MEDS: Multivitamin With Minerals Tab PO SCH (09:56)
[2017-07-19] MEDS: Hydrocerin(120 gm) TOP SCH (09:57)
[2017-07-19] MEDS: VITAMIN C 500MG PO SCH (09:57)
[2017-07-19] MEDS: Nystatin 100,000 Units/gm Topical Pow(15 gm) TOP SCH (09:57)
--- NOTE | 2017-07-19 11:59 | CP.PCM.PN ---
<Johanna Burns - Last Filed: 07/19/17 20:27> Subjective - Date & Time of Evaluation Date of Evaluation: 07/19/17 Time of Evaluation: 08:25 - Subjective Subjective: Patient has been seen and examined. No overnight events reported. Patient complains of a productive cough with green phlegm. She denies any fever, chills , SOB, chest pain, abdominal pain, N/V, constipation, urinary frequency or dysuria. Patient also states she has been having diarrhea. Per nurse, patient has had one scant bowel movement. Objective - Vital Signs/Intake and Output Vital Signs (last 24 hours): Temp Pulse Resp BP Pulse Ox 98.6 F 77 18 159/76 H 96 07/19/17 08:00 07/19/17 09:55 07/19/17 08:00 07/19/17 09:55 07/19/17 08:00 Intake and Output: 07/19/17 07/19/17 06:59 18:59 Intake Total 240 Balance 240 - Medications Medications: Current Medications Acetaminophen (Tylenol 325mg Tab) 650 mg PO Q4 PRN PRN Reason: Fever >100.4 F Last Admin: 07/19/17 06:38 Dose: 650 mg Acetaminophen/Butalbital/Caffeine (Fioricet) 1 tab PO Q4H PRN PRN Reason: Headache Last Admin: 07/15/17 09:07 Dose: 1 tab Albuterol/Ipratropium (Duoneb 3 Mg/0.5 Mg (3 Ml) Ud) 3 ml IH [id number] PRN PRN Reason: Shortness of Breath Last Admin: 07/15/17 00:51 Dose: 3 ml Benzonatate (Tessalon Perles) 100 mg PO TID [facility] Last Admin: 07/19/17 09:55 Dose: 100 mg Docusate Sodium (Colace) 100 mg PO DAILY [facility] Last Admin: 07/19/17 09:55 Dose: 100 mg Ferrous Sulfate (Feosol) 324 mg PO TID [facility] Last Admin: 07/19/17 09:55 Dose: 324 mg Guaifenesin (Robitussin) 100 mg PO Q4H PRN PRN Reason: Cough Last Admin: 07/18/17 03:08 Dose: 100 mg Heparin Sodium (Porcine) (Heparin) 5,000 units SC Q12 [facility] PRN Reason: Protocol Last Admin: 07/19/17 09:55 Dose: 5,000 units Home Med (Home Med) 1 unit PO DAILY [facility] Last Admin: 07/19/17 09:57 Dose: 1 unit Multi-Ingredient Cream (Hydrocerin Cream) 1 ea TOP DAILY [facility] Last Admin: 07/19/17 09:57 Dose: 1 applic Multivitamins/Minerals (Therapeutic-M Tab) 1 tab PO 0800 [facility] Last Admin: 07/19/17 09:56 Dose: 1 tab Nystatin (Nystop Topical Powder) 1 gm TOP DAILY [facility] Last Admin: 07/19/17 09:57 Dose: 1 applic Pantoprazole Sodium (Protonix Ec Tab) 40 mg PO 0600 [facility] Last Admin: 07/19/17 06:13 Dose: 40 mg Polyethylene Glycol (Miralax) 17 gm PO BID [facility] Zinc Sulfate (Zinc Sulfate 220 Mg Cap) 220 mg PO DAILY [facility] Last Admin: 07/19/17 09:55 Dose: 220 mg - Labs Labs: 07/19/17 09:45 07/19/17 06:30 PT 13.1 SECONDS (9.4-12.5) H 06/15/17 11:00 INR 1.19 (0.93-1.08) H 06/15/17 11:00 APTT 31.3 Seconds (25.1-36.5) 06/15/17 11:00 - Constitutional Appears: Non-toxic, No Acute Distress - Head Exam Head Exam: ATRAUMATIC, NORMOCEPHALIC - Eye Exam Eye Exam: Normal appearance - Respiratory Exam Respiratory Exam: Accessory Muscle Use, Clear to Ausculation Bilateral, Rales. absent: Rhonchi, Wheezes, Respiratory Distress - Cardiovascular Exam Cardiovascular Exam: RRR, +S1, +S2 - GI/Abdominal Exam GI & Abdominal Exam: Distended, Soft, Normal Bowel Sounds. absent: Firm, Rigid , Tenderness - Extremities Exam Extremities Exam: Pedal Edema Additional comments: RLE ulceration/with erythema; improved per patient - Skin Skin Exam: Dry, Intact, Warm Assessment and Plan - Assessment and Plan (Free Text) Assessment: 67 year old female with past medical history of asthma, arthritis, anemia, and obesity who initially presented with right lower extremity cellulitis and UTI. Patient was found to have cultures positive for Proteus mirabilis and beta hemolytic strep and completed course of Vancomycin and Azactam. Patient subsequently found to have Klebsiella UTI treated with Ciprofloxacin. Patient is awaiting placement in [facility], pending approval for Medicaid. Plan: Abdominal Distension - likely 2/2 to Constipation - Distention improved per patient - CT Abdomen Pelvis with PO and IV Contrast (07/18): Interstitial and airspace disease in the lung bases; mild cardiomegaly and atherosclerotic disease; fatty liver; gallstones; possible pyelonephritis; mild ileus, no obstruction; constipation with fecal impaction Constipation -Start Miralax Productive Cough - Initial chest x-ray negative, F/u CXR and CT Chest are not indicative of acute disease - Tylenol prn for fevers - Tessalon pereles, Robitussin, and Mucinex for cough - Duonebs prn for shortness of breath - Pulm consult added 07/18/17: Dr. Love - Incentive Spirometer Hypokalemia: Resolved -Monitor Headache - Continue fioricet PRN Normocytic anemia - Hemoglobin stable - Monitor daily GI/DVT ppx: Heparin, Protonix Dispo: Patient awaiting placement in [facility]. Per SW note on , 4 people are ahead of her in line with Medicaid. <Juan Rodriguez - Last Filed: 07/20/17 06:49> Objective - Vital Signs/Intake and Output Vital Signs (last 24 hours): Temp Pulse Resp BP Pulse Ox 97.8 F 88 20 146/62 96 07/20/17 00:00 07/20/17 00:00 07/20/17 00:00 07/20/17 00:00 07/20/17 00:00 Intake and Output: 07/19/17 07/20/17 18:59 06:59 Intake Total 300 360 Output Total 300 Balance 0 360 - Medications Medications: Current Medications Acetaminophen (Tylenol 325mg Tab) 650 mg PO Q4 PRN PRN Reason: Fever >100.4 F Last Admin: 07/19/17 06:38 Dose: 650 mg Acetaminophen/Butalbital/Caffeine (Fioricet) 1 tab PO Q4H PRN PRN Reason: Headache Last Admin: 07/15/17 09:07 Dose: 1 tab Albuterol/Ipratropium (Duoneb 3 Mg/0.5 Mg (3 Ml) Ud) 3 ml IH [id number] PRN PRN Reason: Shortness of Breath Last Admin: 07/15/17 00:51 Dose: 3 ml Benzonatate (Tessalon Perles) 100 mg PO TID [facility] Last Admin: 07/19/17 17:30 Dose: 100 mg Docusate Sodium (Colace) 100 mg PO DAILY [facility] Last Admin: 07/19/17 09:55 Dose: 100 mg Ferrous Sulfate (Feosol) 324 mg PO TID [facility] Last Admin: 07/19/17 17:30 Dose: 324 mg Guaifenesin (Robitussin) 100 mg PO Q4H PRN PRN Reason: Cough Last Admin: 07/18/17 03:08 Dose: 100 mg Heparin Sodium (Porcine) (Heparin) 5,000 units SC Q12 [facility] PRN Reason: Protocol Last Admin: 07/19/17 21:20 Dose: 5,000 units Home Med (Home Med) 1 unit PO DAILY [facility] Last Admin: 07/19/17 09:57 Dose: 1 unit Multi-Ingredient Cream (Hydrocerin Cream) 1 ea TOP DAILY [facility] Last Admin: 07/19/17 09:57 Dose: 1 applic Multivitamins/Minerals (Therapeutic-M Tab) 1 tab PO 0800 [facility] Last Admin: 07/19/17 09:56 Dose: 1 tab Nystatin (Nystop Topical Powder) 1 gm TOP DAILY [facility] Last Admin: 07/19/17 09:57 Dose: 1 applic Pantoprazole Sodium (Protonix Ec Tab) 40 mg PO 0600 [facility] Last Admin: 07/20/17 06:38 Dose: 40 mg Polyethylene Glycol (Miralax) 17 gm PO BID [facility] Last Admin: 07/19/17 17:30 Dose: 17 gm Zinc Sulfate (Zinc Sulfate 220 Mg Cap) 220 mg PO DAILY [facility] Last Admin: 07/19/17 09:55 Dose: 220 mg - Labs Labs: 07/19/17 09:45 07/19/17 06:30 PT 13.1 SECONDS (9.4-12.5) H 06/15/17 11:00 INR 1.19 (0.93-1.08) H 06/15/17 11:00 APTT 31.3 Seconds (25.1-36.5) 06/15/17 11:00 Attending/Attestation - Attestation I have personally seen and examined this patient.: Yes I have fully participated in the care of the patient.: Yes I have reviewed all pertinent clinical information, including history, physical exam and plan: Yes Notes (Text): 07/20/17 06:46 67 year old female with past medical history of asthma, arthritis and anemia who presented with right lower extremity cellulitis and UTI. Patient has completed antibiotics course as above. She is currently awaiting TED placement. She was noted to have abdominal distention for the past few days. CT abd/ pelvis showed mild ileus, constipation with fecal impaction. She is on colace and started on miralax. Will monitor. Juan Rodriguez MD Hospitalist.
[2017-07-19] MEDS: POLYETHYLENE GLYCOL 3350 17 GM/Dose PACKET PO SCH ×2 (13:59→17:30)
--- NOTE | 2017-07-19 19:19 | CP.PCM.PN ---
Subjective - Date & Time of Evaluation Date of Evaluation: 07/19/17 Time of Evaluation: 16:45 - Subjective Subjective: Infectious Disease Follow Up: July 19, 2017 67 yo female presenting with 3 weeks of RLE ulceration, swelling and leaking from the wound as well as multiple falls in the past 3 weeks. The patient has an extensive medical history of asthma, arthritis, vitamin C deficiency, and possible thyroid disease. Draining RLE ulceration... cellulitis improved/resolved. Multiple chronic medical issues. Still with persistent dry cough. Otherwise stable. Mild erythema and excoriation of the folds in the abdomen and under the breasts. Fevers up to 100.8 F two nights ago. Patient making few complaints. The patient has remained in bed. Nursing and aides had noted that the patient's friend "Chris" has encouraged the patient to stay in bed in order to get to a usp or subacute facility. "Chris" was the person the patient was living with prior to coming to [facility]. Also noted that the patient has had a hacking cough the last couple of days. Afebrile the several days now. CT scan of chest done. CT shows mild vascular congestion and no infiltrates. UTI with Klebsiella earlier in hospitalization but had treatment with Cipro that is now completed. No additional issues. Social Issues. Off antibiotics now. No new significant complaints at this time. Objective - Vital Signs/Intake and Output Vital Signs (last 24 hours): Temp Pulse Resp BP Pulse Ox 98.6 F 77 18 159/76 H 96 07/19/17 08:00 07/19/17 09:55 07/19/17 08:00 07/19/17 09:55 07/19/17 08:00 Intake and Output: 07/19/17 07/20/17 18:59 06:59 Intake Total 300 Output Total 300 Balance 0 - Medications Medications: Current Medications Acetaminophen (Tylenol 325mg Tab) 650 mg PO Q4 PRN PRN Reason: Fever >100.4 F Last Admin: 07/19/17 06:38 Dose: 650 mg Acetaminophen/Butalbital/Caffeine (Fioricet) 1 tab PO Q4H PRN PRN Reason: Headache Last Admin: 07/15/17 09:07 Dose: 1 tab Albuterol/Ipratropium (Duoneb 3 Mg/0.5 Mg (3 Ml) Ud) 3 ml IH [id number] PRN PRN Reason: Shortness of Breath Last Admin: 07/15/17 00:51 Dose: 3 ml Benzonatate (Tessalon Perles) 100 mg PO TID [facility] Last Admin: 07/19/17 17:30 Dose: 100 mg Docusate Sodium (Colace) 100 mg PO DAILY [facility] Last Admin: 07/19/17 09:55 Dose: 100 mg Ferrous Sulfate (Feosol) 324 mg PO TID [facility] Last Admin: 07/19/17 17:30 Dose: 324 mg Guaifenesin (Robitussin) 100 mg PO Q4H PRN PRN Reason: Cough Last Admin: 07/18/17 03:08 Dose: 100 mg Heparin Sodium (Porcine) (Heparin) 5,000 units SC Q12 [facility] PRN Reason: Protocol Last Admin: 07/19/17 09:55 Dose: 5,000 units Home Med (Home Med) 1 unit PO DAILY [facility] Last Admin: 07/19/17 09:57 Dose: 1 unit Multi-Ingredient Cream (Hydrocerin Cream) 1 ea TOP DAILY [facility] Last Admin: 07/19/17 09:57 Dose: 1 applic Multivitamins/Minerals (Therapeutic-M Tab) 1 tab PO 0800 [facility] Last Admin: 07/19/17 09:56 Dose: 1 tab Nystatin (Nystop Topical Powder) 1 gm TOP DAILY [facility] Last Admin: 07/19/17 09:57 Dose: 1 applic Pantoprazole Sodium (Protonix Ec Tab) 40 mg PO 0600 [facility] Last Admin: 07/19/17 06:13 Dose: 40 mg Polyethylene Glycol (Miralax) 17 gm PO BID [facility] Last Admin: 07/19/17 17:30 Dose: 17 gm Zinc Sulfate (Zinc Sulfate 220 Mg Cap) 220 mg PO DAILY [facility] Last Admin: 07/19/17 09:55 Dose: 220 mg - Labs Labs: 07/19/17 09:45 07/19/17 06:30 PT 13.1 SECONDS (9.4-12.5) H 06/15/17 11:00 INR 1.19 (0.93-1.08) H 06/15/17 11:00 APTT 31.3 Seconds (25.1-36.5) 06/15/17 11:00 - Constitutional Appears: Non-toxic, No Acute Distress, Chronically Ill - Head Exam Head Exam: ATRAUMATIC, NORMOCEPHALIC - Eye Exam Eye Exam: EOMI, PERRL. absent: Scleral icterus ( ) Pupil Exam: NORMAL ACCOMODATION, PERRL - ENT Exam ENT Exam: Mucous Membranes Moist, Normal External Ear Exam, TM's Normal Bilaterally - Neck Exam Neck Exam: Full ROM, Normal Inspection - Respiratory Exam Respiratory Exam: Clear to Ausculation Bilateral, NORMAL BREATHING PATTERN. absent: Rales, Rhonchi, Wheezes - Cardiovascular Exam Cardiovascular Exam: REGULAR RHYTHM, RRR, +S1, +S2 - GI/Abdominal Exam GI & Abdominal Exam: Soft, Normal Bowel Sounds. absent: Distended, Tenderness - Extremities Exam Extremities Exam: Full ROM, Normal Inspection - Neurological Exam Neurological Exam: Alert, Awake, CN II-XII Intact, Oriented x3 - Psychiatric Exam Psychiatric exam: Normal Affect, Normal Mood - Skin Skin Exam: Intact, Normal Color Assessment and Plan - Assessment and Plan (Free Text) Assessment: 67 yo female with multiple medical issues with PCN allergy diagnosed as a teenager verified by an [employer]. The patient with leukocytosis. Await cultures especially urine cultures. Diabetes and HTN history? Local wound care. Elevated ESR and C-reactive protein. Completed Vancomycin and Aztreonam for antibiotic coverage. UTI with E. coli sensitive to Azactam. Was on Vancomycin for cellulitis IV. For UTI for 5-7 days treatment... completed. Supportive care. Cellulitis appears improved. No new issues. Social issues currently. Homeless at this time. CT scan of chest done. No infiltrates seen. Afebrile the past 24 hours. Mild congestion noted in CT with small pulmonary effusions. No leukocytosis. Slightly elevated procalcitonin (0.66) which is undefined without stronger evidence for pneumonia. When encouraged, she is able to use the incentive spirometer without issues and ambulate with minimal difficulty. UTI with Klebsiella. Sensitive to Cipro. Was on Cipro for 5 day course at 500mg PO BID. Completed the antibiotic course. Stable currently. No new issues. Off antibiotics at this time. Thank you for allowing me to participate in the care of the patient, we will follow with you.
[2017-07-20] MEDS: Pantoprazole 40 mg EC Tab PO SCH (06:38)
[2017-07-20 07:18] LABS: BASO # 0.06 K/mm3 (0.0-2.0); BASO % 0.7 % (0.0-3.0); EOS # 0.9 (0.0-0.7); EOS % 9.7 % (1.5-5.0); GRAN # 6.18 (1.4-6.5); GRAN % 67.3 % (50.0-68.0); HEMOGLOBIN 9.3 g/dL (12.0-16.0); LYMPH # 1.3 (1.2-3.4); LYMPH % 14.2 % (22.0-35.0); MEAN CELL VOLUME 83.5 fl (80.0-105.0); MEAN CORPUSCULAR HEMOGLOBIN 24.8 pg (25.0-35.0); MEAN CORPUSCULAR HGB CONC 29.7 g/dl (31.0-37.0); MEAN PLATELET VOLUME 8.7 fl (7.0-11.0); MONO # 0.7 (0.1-0.6); MONO % 8.1 % (1.0-6.0); RBC 3.75 10^6/uL (3.5-6.1); RED CELL DISTRIBUTION WIDTH 24.3 % (11.5-14.5); WHITE BLOOD COUNT 9.2 10^3/ul (4.5-11.0)
[2017-07-20 07:47] LABS: ALB/GLOB RATIO 0.8 (1.1-1.8); ALBUMIN 3.2 g/dL (3.0-4.8); ALT/SGPT 27 U/L (7-56); AST/SGOT 31 U/L (14-36); BLOOD UREA NITROGEN 9 mg/dL (7-21); CALCIUM 8.6 mg/dL (8.4-10.5); GFR AFRICAN-AMERICAN > 60; GFR NON-AFRICAN AMERICAN > 60
[2017-07-20] MEDS ORDERED: Potassium Chloride 40 mEq/30 ml LIQ UD PO ONE (07:58)
[2017-07-20] MEDS: VITAMIN C 500MG PO SCH (09:11)
[2017-07-20] MEDS: Multivitamin With Minerals Tab PO SCH (09:11)
[2017-07-20] MEDS: Hydrocerin(120 gm) TOP SCH (09:12)
[2017-07-20] MEDS: Nystatin 100,000 Units/gm Topical Pow(15 gm) TOP SCH (09:12)
[2017-07-20] MEDS: POLYETHYLENE GLYCOL 3350 17 GM/Dose PACKET PO SCH (09:12)
--- NOTE | 2017-07-20 11:52 | CP.PCM.PN ---
Subjective - Date & Time of Evaluation Date of Evaluation: 07/20/17 Time of Evaluation: 10:15 - Subjective Subjective: Infectious Disease Follow Up: July 20, 2017 67 yo female presenting with 3 weeks of RLE ulceration, swelling and leaking from the wound as well as multiple falls in the past 3 weeks. The patient has an extensive medical history of asthma, arthritis, vitamin C deficiency, and possible thyroid disease. Draining RLE ulceration... cellulitis improved/resolved. Multiple chronic medical issues. Still with persistent dry cough. Otherwise stable. Mild erythema and excoriation of the folds in the abdomen and under the breasts. Fevers up to 100.8 F two nights ago. Patient making few complaints. The patient has remained in bed. Nursing and aides had noted that the patient's friend "Chris" has encouraged the patient to stay in bed in order to get to a longterm or subacute facility. "Chris" was the person the patient was living with prior to coming to [facility]. Also noted that the patient has had a hacking cough the last couple of days. Afebrile the several days now. CT scan of chest done. CT shows mild vascular congestion and no infiltrates. UTI with Klebsiella earlier in hospitalization but had treatment with Cipro that is now completed. No additional issues. Social Issues. Off antibiotics now. No new significant complaints at this time. Objective - Vital Signs/Intake and Output Vital Signs (last 24 hours): Temp Pulse Resp BP Pulse Ox 98.0 F 82 20 138/77 95 07/20/17 07:31 07/20/17 07:31 07/20/17 07:31 07/20/17 07:31 07/20/17 07:31 Intake and Output: 07/20/17 07/20/17 06:59 18:59 Intake Total 360 Balance 360 - Medications Medications: Current Medications Acetaminophen (Tylenol 325mg Tab) 650 mg PO Q4 PRN PRN Reason: Fever >100.4 F Last Admin: 07/19/17 06:38 Dose: 650 mg Acetaminophen/Butalbital/Caffeine (Fioricet) 1 tab PO Q4H PRN PRN Reason: Headache Last Admin: 07/15/17 09:07 Dose: 1 tab Albuterol/Ipratropium (Duoneb 3 Mg/0.5 Mg (3 Ml) Ud) 3 ml IH [id number] PRN PRN Reason: Shortness of Breath Last Admin: 07/15/17 00:51 Dose: 3 ml Benzonatate (Tessalon Perles) 100 mg PO TID [facility] Last Admin: 07/20/17 09:11 Dose: 100 mg Docusate Sodium (Colace) 100 mg PO DAILY [facility] Last Admin: 07/20/17 09:11 Dose: Not Given Ferrous Sulfate (Feosol) 324 mg PO TID [facility] Last Admin: 07/20/17 09:11 Dose: 324 mg Guaifenesin (Robitussin) 100 mg PO Q4H PRN PRN Reason: Cough Last Admin: 07/18/17 03:08 Dose: 100 mg Heparin Sodium (Porcine) (Heparin) 5,000 units SC Q12 [facility] PRN Reason: Protocol Last Admin: 07/20/17 09:11 Dose: 5,000 units Home Med (Home Med) 1 unit PO DAILY [facility] Last Admin: 07/20/17 09:11 Dose: Not Given Multi-Ingredient Cream (Hydrocerin Cream) 1 ea TOP DAILY [facility] Last Admin: 07/20/17 09:12 Dose: 1 applic Multivitamins/Minerals (Therapeutic-M Tab) 1 tab PO 0800 [facility] Last Admin: 07/20/17 09:11 Dose: 1 tab Nystatin (Nystop Topical Powder) 1 gm TOP DAILY [facility] Last Admin: 07/20/17 09:12 Dose: 1 applic Pantoprazole Sodium (Protonix Ec Tab) 40 mg PO 0600 [facility] Last Admin: 07/20/17 06:38 Dose: 40 mg Polyethylene Glycol (Miralax) 17 gm PO BID [facility] Last Admin: 07/20/17 09:12 Dose: Not Given Zinc Sulfate (Zinc Sulfate 220 Mg Cap) 220 mg PO DAILY [facility] Last Admin: 07/20/17 09:11 Dose: 220 mg - Labs Labs: 07/20/17 07:00 07/20/17 07:00 PT 13.1 SECONDS (9.4-12.5) H 06/15/17 11:00 INR 1.19 (0.93-1.08) H 06/15/17 11:00 APTT 31.3 Seconds (25.1-36.5) 06/15/17 11:00 - Constitutional Appears: Non-toxic, No Acute Distress, Chronically Ill - Head Exam Head Exam: ATRAUMATIC, NORMOCEPHALIC - Eye Exam Eye Exam: EOMI, PERRL Pupil Exam: NORMAL ACCOMODATION, PERRL - ENT Exam ENT Exam: Mucous Membranes Moist, Normal External Ear Exam, TM's Normal Bilaterally - Neck Exam Neck Exam: Full ROM, Normal Inspection - Respiratory Exam Respiratory Exam: Clear to Ausculation Bilateral, NORMAL BREATHING PATTERN. absent: Rales, Rhonchi, Wheezes - Cardiovascular Exam Cardiovascular Exam: REGULAR RHYTHM, RRR, +S1, +S2 - GI/Abdominal Exam GI & Abdominal Exam: Soft, Normal Bowel Sounds. absent: Distended, Tenderness - Extremities Exam Extremities Exam: Full ROM, Normal Inspection - Neurological Exam Neurological Exam: Alert, Awake, CN II-XII Intact, Oriented x3 - Psychiatric Exam Psychiatric exam: Normal Affect, Normal Mood - Skin Skin Exam: Intact, Normal Color Assessment and Plan - Assessment and Plan (Free Text) Assessment: 67 yo female with multiple medical issues with PCN allergy diagnosed as a teenager verified by an Product Management Specialist. The patient with leukocytosis. Await cultures especially urine cultures. Diabetes and HTN history? Local wound care. Elevated ESR and C-reactive protein. Completed Vancomycin and Aztreonam for antibiotic coverage. UTI with E. coli sensitive to Azactam. Was on Vancomycin for cellulitis IV. For UTI for 5-7 days treatment... completed. Supportive care. Cellulitis appears improved. No new issues. Social issues currently. Homeless at this time. CT scan of chest done. No infiltrates seen. Afebrile the past 24 hours. Mild congestion noted in CT with small pulmonary effusions. No leukocytosis. Slightly elevated procalcitonin (0.66) which is undefined without stronger evidence for pneumonia. When encouraged, she is able to use the incentive spirometer without issues and ambulate with minimal difficulty. UTI with Klebsiella. Sensitive to Cipro. Was on Cipro for 5 day course at 500mg PO BID. Completed the antibiotic course. Stable currently. No new issues. Off antibiotics at this time. Multiple social issues. Thank you for allowing me to participate in the care of the patient, we will follow with you.
--- NOTE | 2017-07-20 15:00 | CP.PCM.PN ---
<Johanna Burns - Last Filed: 07/20/17 14:56> Subjective - Date & Time of Evaluation Date of Evaluation: 07/20/17 Time of Evaluation: 07:30 - Subjective Subjective: Patient has been seen and examined. No overnight events reported. Patient complains of a dry cough that has improved from yesterday She denies any fever , chills, SOB, chest pain, abdominal pain, N/V, constipation, urinary frequency or dysuria. Patient also states she has been having diarrhea. Per nurse, patient has had several bowel movements overnight and during the day. Objective - Vital Signs/Intake and Output Vital Signs (last 24 hours): Temp Pulse Resp BP Pulse Ox 98.0 F 82 20 138/77 95 07/20/17 07:31 07/20/17 07:31 07/20/17 07:31 07/20/17 07:31 07/20/17 07:31 Intake and Output: 07/20/17 07/20/17 06:59 18:59 Intake Total 360 Balance 360 - Medications Medications: Current Medications Acetaminophen (Tylenol 325mg Tab) 650 mg PO Q4 PRN PRN Reason: Fever >100.4 F Last Admin: 07/19/17 06:38 Dose: 650 mg Acetaminophen/Butalbital/Caffeine (Fioricet) 1 tab PO Q4H PRN PRN Reason: Headache Last Admin: 07/15/17 09:07 Dose: 1 tab Albuterol/Ipratropium (Duoneb 3 Mg/0.5 Mg (3 Ml) Ud) 3 ml IH [id number] PRN PRN Reason: Shortness of Breath Last Admin: 07/15/17 00:51 Dose: 3 ml Benzonatate (Tessalon Perles) 100 mg PO TID [facility] Last Admin: 07/20/17 13:12 Dose: 100 mg Docusate Sodium (Colace) 100 mg PO DAILY [facility] Last Admin: 07/20/17 09:11 Dose: Not Given Ferrous Sulfate (Feosol) 324 mg PO TID [facility] Last Admin: 07/20/17 13:12 Dose: 324 mg Guaifenesin (Robitussin) 100 mg PO Q4H PRN PRN Reason: Cough Last Admin: 07/18/17 03:08 Dose: 100 mg Heparin Sodium (Porcine) (Heparin) 5,000 units SC Q12 [facility] PRN Reason: Protocol Last Admin: 07/20/17 09:11 Dose: 5,000 units Home Med (Home Med) 1 unit PO DAILY [facility] Last Admin: 07/20/17 09:11 Dose: Not Given Multi-Ingredient Cream (Hydrocerin Cream) 1 ea TOP DAILY [facility] Last Admin: 07/20/17 09:12 Dose: 1 applic Multivitamins/Minerals (Therapeutic-M Tab) 1 tab PO 0800 [facility] Last Admin: 07/20/17 09:11 Dose: 1 tab Nystatin (Nystop Topical Powder) 1 gm TOP DAILY [facility] Last Admin: 07/20/17 09:12 Dose: 1 applic Pantoprazole Sodium (Protonix Ec Tab) 40 mg PO 0600 [facility] Last Admin: 07/20/17 06:38 Dose: 40 mg Polyethylene Glycol (Miralax) 17 gm PO BID [facility] Last Admin: 07/20/17 09:12 Dose: Not Given Zinc Sulfate (Zinc Sulfate 220 Mg Cap) 220 mg PO DAILY [facility] Last Admin: 07/20/17 09:11 Dose: 220 mg - Labs Labs: 07/20/17 07:00 07/20/17 07:00 PT 13.1 SECONDS (9.4-12.5) H 06/15/17 11:00 INR 1.19 (0.93-1.08) H 06/15/17 11:00 APTT 31.3 Seconds (25.1-36.5) 06/15/17 11:00 - Additional Findings Additional findings: - Constitutional Appears: Non-toxic, No Acute Distress - Head Exam Head Exam: ATRAUMATIC, NORMOCEPHALIC - Eye Exam Eye Exam: Normal appearance - Respiratory Exam Respiratory Exam: Accessory Muscle Use, Clear to Ausculation Bilateral, Rales. absent: Rhonchi, Wheezes, Respiratory Distress - Cardiovascular Exam Cardiovascular Exam: RRR, +S1, +S2 - GI/Abdominal Exam GI & Abdominal Exam: Distended (no improvement), Soft, Normal Bowel Sounds. absent: Firm, Rigid, Tenderness - Extremities Exam Extremities Exam: Pedal Edema Additional comments: RLE ulceration/with mild erythema (improved) - Skin Skin Exam: Dry, Intact, Warm Assessment and Plan - Assessment and Plan (Free Text) Assessment: 67 year old female with past medical history of asthma, arthritis, anemia, and obesity who initially presented with right lower extremity cellulitis and UTI. Patient was found to have cultures positive for Proteus mirabilis and beta hemolytic strep and completed course of Vancomycin and Azactam. Patient subsequently found to have Klebsiella UTI treated with Ciprofloxacin. Patient is awaiting placement in [facility], pending approval for Medicaid. Plan: Abdominal Distension - likely 2/2 to Constipation - CT Abdomen Pelvis with PO and IV Contrast (07/18): Interstitial and airspace disease in the lung bases; mild cardiomegaly and atherosclerotic disease; fatty liver; gallstones; possible pyelonephritis; mild ileus, no obstruction; constipation with fecal impaction Constipation -Miralax decreased to Daily Productive Cough - Initial chest x-ray negative, F/u CXR and CT Chest are not indicative of acute disease - Tylenol prn for fevers - Tessalon pereles, Robitussin, and Mucinex for cough - Duonebs prn for shortness of breath - Pulm consult added 07/18/17: Dr. Love - follow up with Recs. - Incentive Spirometer Hypokalemia: Resolved -Monitor Headache - Continue fioricet PRN Normocytic anemia - Hemoglobin stable - Monitor daily GI/DVT ppx: Heparin, Protonix Dispo: Patient awaiting placement in [facility]. Per SW note on , 4 people are ahead of her in line with Medicaid. Patient seen and discussed with Attending Johanna Burns - PGY-1 <Juan Rodriguez - Last Filed: 07/20/17 15:45> Objective - Vital Signs/Intake and Output Vital Signs (last 24 hours): Temp Pulse Resp BP Pulse Ox 98.0 F 82 20 138/77 95 07/20/17 07:31 07/20/17 07:31 07/20/17 07:31 07/20/17 07:31 07/20/17 07:31 Intake and Output: 07/20/17 07/20/17 06:59 18:59 Intake Total 360 Output Total 1 Balance 360 -1 - Medications Medications: Current Medications Acetaminophen (Tylenol 325mg Tab) 650 mg PO Q4 PRN PRN Reason: Fever >100.4 F Last Admin: 07/19/17 06:38 Dose: 650 mg Acetaminophen/Butalbital/Caffeine (Fioricet) 1 tab PO Q4H PRN PRN Reason: Headache Last Admin: 07/15/17 09:07 Dose: 1 tab Albuterol/Ipratropium (Duoneb 3 Mg/0.5 Mg (3 Ml) Ud) 3 ml IH [id number] PRN PRN Reason: Shortness of Breath Last Admin: 07/15/17 00:51 Dose: 3 ml Benzonatate (Tessalon Perles) 100 mg PO TID [facility] Last Admin: 07/20/17 13:12 Dose: 100 mg Docusate Sodium (Colace) 100 mg PO DAILY [facility] Last Admin: 07/20/17 09:11 Dose: Not Given Ferrous Sulfate (Feosol) 324 mg PO TID [facility] Last Admin: 07/20/17 13:12 Dose: 324 mg Guaifenesin (Robitussin) 100 mg PO Q4H PRN PRN Reason: Cough Last Admin: 07/18/17 03:08 Dose: 100 mg Heparin Sodium (Porcine) (Heparin) 5,000 units SC Q12 [facility] PRN Reason: Protocol Last Admin: 07/20/17 09:11 Dose: 5,000 units Home Med (Home Med) 1 unit PO DAILY [facility] Last Admin: 07/20/17 09:11 Dose: Not Given Multi-Ingredient Cream (Hydrocerin Cream) 1 ea TOP DAILY [facility] Last Admin: 07/20/17 09:12 Dose: 1 applic Multivitamins/Minerals (Therapeutic-M Tab) 1 tab PO 0800 [facility] Last Admin: 07/20/17 09:11 Dose: 1 tab Nystatin (Nystop Topical Powder) 1 gm TOP DAILY [facility] Last Admin: 07/20/17 09:12 Dose: 1 applic Pantoprazole Sodium (Protonix Ec Tab) 40 mg PO 0600 [facility] Last Admin: 07/20/17 06:38 Dose: 40 mg Polyethylene Glycol (Miralax) 17 gm PO DAILY [facility] Zinc Sulfate (Zinc Sulfate 220 Mg Cap) 220 mg PO DAILY [facility] Last Admin: 07/20/17 09:11 Dose: 220 mg - Labs Labs: 07/20/17 07:00 07/20/17 07:00 PT 13.1 SECONDS (9.4-12.5) H 06/15/17 11:00 INR 1.19 (0.93-1.08) H 06/15/17 11:00 APTT 31.3 Seconds (25.1-36.5) 06/15/17 11:00 Attending/Attestation - Attestation I have personally seen and examined this patient.: Yes I have fully participated in the care of the patient.: Yes I have reviewed all pertinent clinical information, including history, physical exam and plan: Yes Notes (Text): 07/20/17 15:43 67 year old female with past medical history of asthma, arthritis and anemia who presented with right lower extremity cellulitis and UTI s/p antibiotics. She was noted to have abdominal distention for the past few days. CT abd/ pelvis showed mild ileus, constipation with fecal impaction. She was started on miralax in addition to her colace and is now having bowel movements. She is currently awaiting TED placement. SW note was reviewed. Juan Rodriguez MD Hospitalist.
[2017-07-20] MEDS: Apap-Butalbital-Caffeine 325-50-40mg Tab PO PRN (21:04)
[2017-07-21] MEDS: guaiFENesin 100 mg/5 ml Syrup UD PO PRN ×2 (00:50→05:49)
[2017-07-21] MEDS: Pantoprazole 40 mg EC Tab PO SCH (05:49)
[2017-07-21 07:31] LABS: BASO # 0.07 K/mm3 (0.0-2.0); BASO % 0.8 % (0.0-3.0); EOS # 0.9 (0.0-0.7); EOS % 9.5 % (1.5-5.0); GRAN # 6.1 (1.4-6.5); GRAN % 66.2 % (50.0-68.0); HEMOGLOBIN 9.5 g/dL (12.0-16.0); LYMPH # 1.4 (1.2-3.4); LYMPH % 15.3 % (22.0-35.0); MEAN CELL VOLUME 83.2 fl (80.0-105.0); MEAN CORPUSCULAR HEMOGLOBIN 24.9 pg (25.0-35.0); MONO # 0.8 (0.1-0.6); MONO % 8.2 % (1.0-6.0); RBC 3.81 10^6/uL (3.5-6.1); RED CELL DISTRIBUTION WIDTH 24.5 % (11.5-14.5); WHITE BLOOD COUNT 9.2 10^3/ul (4.5-11.0)
[2017-07-21 08:24] LABS: ALB/GLOB RATIO 0.8 (1.1-1.8); ALBUMIN 3.3 g/dL (3.0-4.8); ALT/SGPT 25 U/L (7-56); AST/SGOT 35 U/L (14-36); BLOOD UREA NITROGEN 7 mg/dL (7-21); CALCIUM 8.6 mg/dL (8.4-10.5); GFR AFRICAN-AMERICAN > 60; GFR NON-AFRICAN AMERICAN > 60
[2017-07-21] MEDS: Multivitamin With Minerals Tab PO SCH (09:05)
[2017-07-21] MEDS: VITAMIN C 500MG PO SCH (09:06)
[2017-07-21] MEDS: Hydrocerin(120 gm) TOP SCH (09:06)
[2017-07-21] MEDS: Nystatin 100,000 Units/gm Topical Pow(15 gm) TOP SCH (09:07)
[2017-07-21] MEDS ORDERED: POLYETHYLENE GLYCOL 3350 17 GM/Dose PACKET PO SCH ×2 (10:00→18:00)
--- NOTE | 2017-07-21 12:32 | RAD ---
HISTORY: Cough, SOB COMPARISON: 07/03/2017 FINDINGS: LUNGS: No active pulmonary disease. PLEURA: No significant pleural effusion identified, no pneumothorax apparent. CARDIOVASCULAR: Cardiomegaly. No evidence of acute, significant cardiovascular disease. OSSEOUS STRUCTURES: No significant abnormalities. VISUALIZED UPPER ABDOMEN: Normal. OTHER FINDINGS: None. IMPRESSION: No active disease. No significant interval change compared to the prior examination(s).
--- NOTE | 2017-07-21 14:17 | CP.PCM.PN ---
<Johanna Burns - Last Filed: 07/21/17 14:11> Subjective - Date & Time of Evaluation Date of Evaluation: 07/21/17 Time of Evaluation: 08:30 - Subjective Subjective: Patient has been seen and examined. No overnight events reported. Patient complains of a dry cough that has not improved from yesterday She denies any fever, chills, SOB, chest pain, abdominal pain, N/V, constipation, urinary frequency or dysuria. Patient denied diarrhea today. Per nurse, patient has had several bowel movements overnight Objective - Vital Signs/Intake and Output Vital Signs (last 24 hours): Temp Pulse Resp BP Pulse Ox 98.0 F 85 20 158/80 H 96 07/21/17 07:30 07/21/17 07:30 07/21/17 07:30 07/21/17 07:30 07/21/17 07:30 Intake and Output: 07/21/17 07/21/17 06:59 18:59 Intake Total 420 Balance 420 - Medications Medications: Current Medications Acetaminophen (Tylenol 325mg Tab) 650 mg PO Q4 PRN PRN Reason: Fever >100.4 F Last Admin: 07/21/17 11:54 Dose: 650 mg Acetaminophen/Butalbital/Caffeine (Fioricet) 1 tab PO Q4H PRN PRN Reason: Headache Last Admin: 07/20/17 21:04 Dose: 1 tab Albuterol/Ipratropium (Duoneb 3 Mg/0.5 Mg (3 Ml) Ud) 3 ml IH [id number] PRN PRN Reason: Shortness of Breath Last Admin: 07/15/17 00:51 Dose: 3 ml Benzonatate (Tessalon Perles) 100 mg PO TID [facility] Last Admin: 07/21/17 09:05 Dose: 100 mg Docusate Sodium (Colace) 100 mg PO DAILY [facility] Last Admin: 07/21/17 09:06 Dose: Not Given Ferrous Sulfate (Feosol) 324 mg PO TID [facility] Last Admin: 07/21/17 09:05 Dose: 324 mg Guaifenesin (Robitussin) 100 mg PO Q4H PRN PRN Reason: Cough Last Admin: 07/21/17 05:49 Dose: 100 mg Heparin Sodium (Porcine) (Heparin) 5,000 units SC Q12 [facility] PRN Reason: Protocol Last Admin: 07/21/17 09:05 Dose: 5,000 units Home Med (Home Med) 1 unit PO DAILY [facility] Last Admin: 07/21/17 09:06 Dose: 1 unit Multi-Ingredient Cream (Hydrocerin Cream) 1 ea TOP DAILY [facility] Last Admin: 07/21/17 09:06 Dose: 1 applic Multivitamins/Minerals (Therapeutic-M Tab) 1 tab PO 0800 [facility] Last Admin: 07/21/17 09:05 Dose: 1 tab Nystatin (Nystop Topical Powder) 1 gm TOP DAILY [facility] Last Admin: 07/21/17 09:07 Dose: 1 applic Pantoprazole Sodium (Protonix Ec Tab) 40 mg PO 0600 [facility] Last Admin: 07/21/17 05:49 Dose: Not Given Polyethylene Glycol (Miralax) 17 gm PO DAILY [facility] Last Admin: 07/21/17 09:06 Dose: Not Given Zinc Sulfate (Zinc Sulfate 220 Mg Cap) 220 mg PO DAILY [facility] Last Admin: 07/21/17 09:05 Dose: 220 mg - Labs Labs: 07/21/17 06:45 07/21/17 06:45 PT 13.1 SECONDS (9.4-12.5) H 06/15/17 11:00 INR 1.19 (0.93-1.08) H 06/15/17 11:00 APTT 31.3 Seconds (25.1-36.5) 06/15/17 11:00 - Additional Findings Additional findings: - Constitutional Appears: Non-toxic, No Acute Distress - Head Exam Head Exam: ATRAUMATIC, NORMOCEPHALIC - Eye Exam Eye Exam: Normal appearance - Respiratory Exam Respiratory Exam: Accessory Muscle Use, Clear to Ausculation Bilateral, Rales. absent: Rhonchi, Wheezes, Respiratory Distress - Cardiovascular Exam Cardiovascular Exam: RRR, +S1, +S2 - GI/Abdominal Exam GI & Abdominal Exam: Distended (no improvement), Soft, Normal Bowel Sounds. absent: Firm, Rigid, Tenderness - Extremities Exam Extremities Exam: Pedal Edema Additional comments: RLE ulceration/with mild erythema (improved) - Skin Skin Exam: Dry, Intact, Warm Assessment and Plan - Assessment and Plan (Free Text) Assessment: 67 year old female with past medical history of asthma, arthritis, anemia, and obesity who initially presented with right lower extremity cellulitis and UTI. Patient was found to have cultures positive for Proteus mirabilis and beta hemolytic strep and completed course of Vancomycin and Azactam. Patient subsequently found to have Klebsiella UTI treated with Ciprofloxacin. Patient is awaiting placement in [facility], pending approval for Medicaid. Plan: Abdominal Distension (No improvement) - likely 2/2 to Constipation - CT Abdomen Pelvis with PO and IV Contrast (07/18): Interstitial and airspace disease in the lung bases; mild cardiomegaly and atherosclerotic disease; fatty liver; gallstones; possible pyelonephritis; mild ileus, no obstruction; constipation with fecal impaction -Consider GI Consult. Constipation (Resolving) -likely 2/2 to ileus and Iron -Patient has been having bowel movements -Miralax BID SOB -Likely 2/2 to Asthma Exacerbation. -O2 Sat 89-90% on RA -Duonebs PRN (Held) -Duonebs [facility] Q6H -Reassess tomorrow -Pulm consult added 07/18/17: Dr. Love - follow up with Recs. -CT Chest on 07/04/17: shows Mildly enlarged axillary lymph nodes and moderate cardiomegaly and mild vascular congestion Cough (No Improvement) - Possibly 2/2 to asthma exacerbation - Initial chest x-ray negative, F/u CXR and CT Chest are not indicative of acute disease - Tylenol prn for fevers - Tessalon pereles, Robitussin, and Mucinex for cough - Duonebs prn for shortness of breath (Held) - Pulm consult added 07/18/17: Dr. Love - follow up with Recs. - Incentive Spirometer Hypokalemia: Resolved -Monitor Headache - Continue fioricet PRN Normocytic anemia - Hemoglobin stable - Monitor daily GI/DVT ppx: Heparin, Protonix Dispo: Patient awaiting placement in [facility]. Per SW note on , 4 people are ahead of her in line with Medicaid. Patient seen and discussed with Attending Johanna Burns - PGY-1 <Juan Rodriguez - Last Filed: 07/21/17 15:45> Objective - Vital Signs/Intake and Output Vital Signs (last 24 hours): Temp Pulse Resp BP Pulse Ox 98.0 F 85 20 158/80 H 96 07/21/17 07:30 07/21/17 07:30 07/21/17 07:30 07/21/17 07:30 07/21/17 07:30 Intake and Output: 07/21/17 07/21/17 06:59 18:59 Intake Total 420 Balance 420 - Medications Medications: Current Medications Acetaminophen (Tylenol 325mg Tab) 650 mg PO Q4 PRN PRN Reason: Fever >100.4 F Last Admin: 07/21/17 11:54 Dose: 650 mg Acetaminophen/Butalbital/Caffeine (Fioricet) 1 tab PO Q4H PRN PRN Reason: Headache Last Admin: 07/20/17 21:04 Dose: 1 tab Albuterol/Ipratropium (Duoneb 3 Mg/0.5 Mg (3 Ml) Ud) 3 ml IH [id number] PRN PRN Reason: Shortness of Breath Last Admin: 07/15/17 00:51 Dose: 3 ml Albuterol/Ipratropium (Duoneb 3 Mg/0.5 Mg (3 Ml) Ud) 3 ml IH [id number] [facility] Benzonatate (Tessalon Perles) 100 mg PO TID [facility] Last Admin: 07/21/17 14:59 Dose: 100 mg Docusate Sodium (Colace) 100 mg PO DAILY [facility] Last Admin: 07/21/17 09:06 Dose: Not Given Ferrous Sulfate (Feosol) 324 mg PO TID [facility] Last Admin: 07/21/17 14:59 Dose: 324 mg Guaifenesin (Robitussin) 100 mg PO Q4H PRN PRN Reason: Cough Last Admin: 07/21/17 05:49 Dose: 100 mg Heparin Sodium (Porcine) (Heparin) 5,000 units SC Q12 [facility] PRN Reason: Protocol Last Admin: 07/21/17 09:05 Dose: 5,000 units Home Med (Home Med) 1 unit PO DAILY [facility] Last Admin: 07/21/17 09:06 Dose: 1 unit Multi-Ingredient Cream (Hydrocerin Cream) 1 ea TOP DAILY [facility] Last Admin: 07/21/17 09:06 Dose: 1 applic Multivitamins/Minerals (Therapeutic-M Tab) 1 tab PO 0800 [facility] Last Admin: 07/21/17 09:05 Dose: 1 tab Nystatin (Nystop Topical Powder) 1 gm TOP DAILY [facility] Last Admin: 07/21/17 09:07 Dose: 1 applic Pantoprazole Sodium (Protonix Ec Tab) 40 mg PO 0600 [facility] Last Admin: 07/21/17 05:49 Dose: Not Given Polyethylene Glycol (Miralax) 17 gm PO BID [facility] Zinc Sulfate (Zinc Sulfate 220 Mg Cap) 220 mg PO DAILY [facility] Last Admin: 07/21/17 09:05 Dose: 220 mg - Labs Labs: 07/21/17 06:45 07/21/17 06:45 PT 13.1 SECONDS (9.4-12.5) H 06/15/17 11:00 INR 1.19 (0.93-1.08) H 06/15/17 11:00 APTT 31.3 Seconds (25.1-36.5) 06/15/17 11:00 Attending/Attestation - Attestation I have personally seen and examined this patient.: Yes I have fully participated in the care of the patient.: Yes I have reviewed all pertinent clinical information, including history, physical exam and plan: Yes Notes (Text): 07/21/17 15:44 67 year old female with past medical history of asthma, arthritis and anemia who presented with right lower extremity cellulitis and UTI s/p antibiotics. She continues to have abdominal distention however is without abdominal complaints. Recent CT abd/pelvis showed mild ileus, constipation with fecal impaction. She is on colace and miralax which we will increase to bid. She is currently awaiting TED placement. SW note was reviewed. Juan Rodriguez MD Hospitalist.
--- NOTE | 2017-07-21 16:27 | CP.PCM.PN ---
Subjective - Date & Time of Evaluation Date of Evaluation: 07/21/17 Time of Evaluation: 14:30 - Subjective Subjective: Infectious Disease Follow Up: July 21, 2017 67 yo female presenting with 3 weeks of RLE ulceration, swelling and leaking from the wound as well as multiple falls in the past 3 weeks. The patient has an extensive medical history of asthma, arthritis, vitamin C deficiency, and possible thyroid disease. Draining RLE ulceration... cellulitis improved/resolved. Multiple chronic medical issues. Still with persistent dry cough. Otherwise stable. Mild erythema and excoriation of the folds in the abdomen and under the breasts. Fevers up to 100.8 F two nights ago. Patient making few complaints. The patient has remained in bed. Nursing and aides had noted that the patient's friend "Chris" has encouraged the patient to stay in bed in order to get to a half-way or subacute facility. "Chris" was the person the patient was living with prior to coming to [place]. Also noted that the patient has had a hacking cough the last couple of days. Afebrile for several days now. CT scan of chest done. CT shows mild vascular congestion and no infiltrates. UTI with Klebsiella earlier in hospitalization but had treatment with Cipro that is now completed. No additional issues. Social Issues. Off antibiotics now. No new significant complaints at this time. Objective - Vital Signs/Intake and Output Vital Signs (last 24 hours): Temp Pulse Resp BP Pulse Ox 98.0 F 85 20 158/80 H 96 07/21/17 07:30 07/21/17 07:30 07/21/17 07:30 07/21/17 07:30 07/21/17 07:30 Intake and Output: 07/21/17 07/21/17 06:59 18:59 Intake Total 420 Balance 420 - Medications Medications: Current Medications Acetaminophen (Tylenol 325mg Tab) 650 mg PO Q4 PRN PRN Reason: Fever >100.4 F Last Admin: 07/21/17 11:54 Dose: 650 mg Acetaminophen/Butalbital/Caffeine (Fioricet) 1 tab PO Q4H PRN PRN Reason: Headache Last Admin: 07/20/17 21:04 Dose: 1 tab Albuterol/Ipratropium (Duoneb 3 Mg/0.5 Mg (3 Ml) Ud) 3 ml IH [id number] PRN PRN Reason: Shortness of Breath Last Admin: 07/15/17 00:51 Dose: 3 ml Albuterol/Ipratropium (Duoneb 3 Mg/0.5 Mg (3 Ml) Ud) 3 ml IH [id number] [facility] Benzonatate (Tessalon Perles) 100 mg PO TID [facility] Last Admin: 07/21/17 14:59 Dose: 100 mg Docusate Sodium (Colace) 100 mg PO DAILY [facility] Last Admin: 07/21/17 09:06 Dose: Not Given Ferrous Sulfate (Feosol) 324 mg PO TID [facility] Last Admin: 07/21/17 14:59 Dose: 324 mg Guaifenesin (Robitussin) 100 mg PO Q4H PRN PRN Reason: Cough Last Admin: 07/21/17 05:49 Dose: 100 mg Heparin Sodium (Porcine) (Heparin) 5,000 units SC Q12 [facility] PRN Reason: Protocol Last Admin: 07/21/17 09:05 Dose: 5,000 units Home Med (Home Med) 1 unit PO DAILY [facility] Last Admin: 07/21/17 09:06 Dose: 1 unit Multi-Ingredient Cream (Hydrocerin Cream) 1 ea TOP DAILY [facility] Last Admin: 07/21/17 09:06 Dose: 1 applic Multivitamins/Minerals (Therapeutic-M Tab) 1 tab PO 0800 [facility] Last Admin: 07/21/17 09:05 Dose: 1 tab Nystatin (Nystop Topical Powder) 1 gm TOP DAILY [facility] Last Admin: 07/21/17 09:07 Dose: 1 applic Pantoprazole Sodium (Protonix Ec Tab) 40 mg PO 0600 [facility] Last Admin: 07/21/17 05:49 Dose: Not Given Polyethylene Glycol (Miralax) 17 gm PO BID [facility] Zinc Sulfate (Zinc Sulfate 220 Mg Cap) 220 mg PO DAILY [facility] Last Admin: 07/21/17 09:05 Dose: 220 mg - Labs Labs: 07/21/17 06:45 07/21/17 06:45 PT 13.1 SECONDS (9.4-12.5) H 06/15/17 11:00 INR 1.19 (0.93-1.08) H 06/15/17 11:00 APTT 31.3 Seconds (25.1-36.5) 06/15/17 11:00 - Constitutional Appears: Non-toxic, No Acute Distress, Chronically Ill - Head Exam Head Exam: ATRAUMATIC, NORMOCEPHALIC - Eye Exam Eye Exam: EOMI, PERRL Pupil Exam: NORMAL ACCOMODATION, PERRL - ENT Exam ENT Exam: Mucous Membranes Moist, Normal External Ear Exam, TM's Normal Bilaterally - Neck Exam Neck Exam: Full ROM, Normal Inspection - Respiratory Exam Respiratory Exam: Clear to Ausculation Bilateral, NORMAL BREATHING PATTERN. absent: Rales, Rhonchi, Wheezes - Cardiovascular Exam Cardiovascular Exam: REGULAR RHYTHM, RRR, +S1, +S2 - GI/Abdominal Exam GI & Abdominal Exam: Soft, Normal Bowel Sounds. absent: Distended, Tenderness - Extremities Exam Extremities Exam: Full ROM, Normal Inspection - Neurological Exam Neurological Exam: Alert, Awake, CN II-XII Intact, Oriented x3 - Psychiatric Exam Psychiatric exam: Normal Affect, Normal Mood - Skin Skin Exam: Intact, Normal Color Assessment and Plan - Assessment and Plan (Free Text) Assessment: 67 yo female with multiple medical issues with PCN allergy diagnosed as a teenager verified by an Quality Improvement Coordinator (Rn). The patient with leukocytosis. Await cultures especially urine cultures. Diabetes and HTN history? Local wound care. Elevated ESR and C-reactive protein. Completed Vancomycin and Aztreonam for antibiotic coverage. UTI with E. coli sensitive to Azactam. Was on Vancomycin for cellulitis IV. For UTI for 5-7 days treatment... completed. Supportive care. Cellulitis appears improved. No new issues. Social issues currently. Homeless at this time. CT scan of chest done. No infiltrates seen. Afebrile the past 24 hours. Mild congestion noted in CT with small pulmonary effusions. No leukocytosis. Slightly elevated procalcitonin (0.66) which is undefined without stronger evidence for pneumonia. When encouraged, she is able to use the incentive spirometer without issues and ambulate with minimal difficulty. UTI with Klebsiella. Sensitive to Cipro. Was on Cipro for 5 day course at 500mg PO BID. Completed the antibiotic course. Stable currently. No new issues. Off antibiotics at this time. Multiple social issues. Thank you for allowing me to participate in the care of the patient, we will follow with you.
[2017-07-21] MEDS: POLYETHYLENE GLYCOL 3350 17 GM/Dose PACKET PO SCH (18:38)
[2017-07-21] MEDS: Albuterol-Ipratrop 3 mg / 0.5 (3 ml) UD IH SCH (21:30)
[2017-07-22] MEDS: Pantoprazole 40 mg EC Tab PO SCH (06:58)
[2017-07-22 07:04] LABS: ALB/GLOB RATIO 0.7 (1.1-1.8); ALBUMIN 3.1 g/dL (3.0-4.8); ALT/SGPT 27 U/L (7-56); AST/SGOT 31 U/L (14-36); BLOOD UREA NITROGEN 8 mg/dL (7-21); CALCIUM 8.7 mg/dL (8.4-10.5); GFR AFRICAN-AMERICAN > 60; GFR NON-AFRICAN AMERICAN > 60
[2017-07-22 07:21] LABS: BASO # 0.04 K/mm3 (0.0-2.0); BASO % 0.4 % (0.0-3.0); EOS # 0.9 (0.0-0.7); EOS % 10.1 % (1.5-5.0); GRAN # 5.71 (1.4-6.5); GRAN % 64.3 % (50.0-68.0); HEMOGLOBIN 9.2 g/dL (12.0-16.0); LYMPH # 1.4 (1.2-3.4); LYMPH % 16.1 % (22.0-35.0); MEAN CELL VOLUME 83.8 fl (80.0-105.0); MEAN CORPUSCULAR HEMOGLOBIN 24.5 pg (25.0-35.0); MEAN CORPUSCULAR HGB CONC 29.2 g/dl (31.0-37.0); MEAN PLATELET VOLUME 8.8 fl (7.0-11.0); MONO # 0.8 (0.1-0.6); MONO % 9.1 % (1.0-6.0); RBC 3.76 10^6/uL (3.5-6.1); WHITE BLOOD COUNT 8.9 10^3/ul (4.5-11.0)
[2017-07-22] MEDS: Albuterol-Ipratrop 3 mg / 0.5 (3 ml) UD IH SCH ×3 (07:27→21:04)
[2017-07-22] MEDS ORDERED: Potassium Chloride 40 mEq/30 ml LIQ UD PO ONE (09:33)
[2017-07-22] MEDS: Nystatin 100,000 Units/gm Topical Pow(15 gm) TOP SCH (09:58)
[2017-07-22] MEDS ORDERED: POLYETHYLENE GLYCOL 3350 17 GM/Dose PACKET PO SCH (10:00)
[2017-07-22] MEDS: Multivitamin With Minerals Tab PO SCH (10:02)
[2017-07-22] MEDS: Hydrocerin(120 gm) TOP SCH (10:26)
[2017-07-22] MEDS: POLYETHYLENE GLYCOL 3350 17 GM/Dose PACKET PO SCH ×2 (10:26→18:33)
[2017-07-22] MEDS: VITAMIN C 500MG PO SCH (10:26)
--- NOTE | 2017-07-22 15:20 | CP.PCM.PN ---
<Johanna Burns - Last Filed: 07/22/17 15:17> Subjective - Date & Time of Evaluation Date of Evaluation: 07/22/17 Time of Evaluation: 11:00 - Subjective Subjective: Patient has been seen and examined. No overnight events reported. Patient complains of a dry cough that has not improved from yesterday She denies any fever, chills, SOB, chest pain, abdominal pain, N/V, constipation, urinary frequency or dysuria. Patient says she has been having diarrhea for the past 2 days. Patient may be a poor historian. Per nurse, her coughing has greatly improved, she had two loose/watery bowel movements overnight. Objective - Vital Signs/Intake and Output Vital Signs (last 24 hours): Temp Pulse Resp BP Pulse Ox 98.5 F 84 20 161/85 H 96 07/22/17 07:30 07/22/17 07:30 07/22/17 07:30 07/22/17 07:30 07/22/17 07:30 Intake and Output: 07/22/17 07/22/17 06:59 18:59 Intake Total 360 Output Total 3 Balance 357 - Medications Medications: Current Medications Acetaminophen (Tylenol 325mg Tab) 650 mg PO Q4 PRN PRN Reason: Fever >100.4 F Last Admin: 07/21/17 21:51 Dose: 650 mg Acetaminophen/Butalbital/Caffeine (Fioricet) 1 tab PO Q4H PRN PRN Reason: Headache Last Admin: 07/20/17 21:04 Dose: 1 tab Albuterol/Ipratropium (Duoneb 3 Mg/0.5 Mg (3 Ml) Ud) 3 ml IH [id number] PRN PRN Reason: Shortness of Breath Last Admin: 07/15/17 00:51 Dose: 3 ml Albuterol/Ipratropium (Duoneb 3 Mg/0.5 Mg (3 Ml) Ud) 3 ml IH [id number] [facility] Last Admin: 07/22/17 13:40 Dose: 3 ml Benzonatate (Tessalon Perles) 100 mg PO TID [facility] Last Admin: 07/22/17 13:07 Dose: 100 mg Docusate Sodium (Colace) 100 mg PO DAILY [facility] Last Admin: 07/22/17 09:59 Dose: Not Given Ferrous Sulfate (Feosol) 324 mg PO TID [facility] Last Admin: 07/22/17 13:07 Dose: 324 mg Guaifenesin (Robitussin) 100 mg PO Q4H PRN PRN Reason: Cough Last Admin: 07/21/17 05:49 Dose: 100 mg Heparin Sodium (Porcine) (Heparin) 5,000 units SC Q12 [facility] PRN Reason: Protocol Last Admin: 07/22/17 10:00 Dose: 5,000 units Home Med (Home Med) 1 unit PO DAILY [facility] Last Admin: 07/22/17 10:26 Dose: 1 unit Potassium Chloride (Potassium Chloride 10 Meq/100 Ml) 10 meq in 100 mls @ 50 mls/hr IVPB Q2H [facility] Stop: 07/22/17 18:59 Methylprednisolone (Solu-Medrol) 40 mg IVP Q8H [facility] Multivitamins/Minerals (Therapeutic-M Tab) 1 tab PO 0800 [facility] Last Admin: 07/22/17 10:02 Dose: 1 tab Nystatin (Nystop Topical Powder) 1 gm TOP DAILY [facility] Last Admin: 07/22/17 09:58 Dose: 1 applic Pantoprazole Sodium (Protonix Inj) 40 mg IVP DAILY [facility] Polyethylene Glycol (Miralax) 17 gm PO BID [facility] Last Admin: 07/22/17 10:26 Dose: Not Given Zinc Sulfate (Zinc Sulfate 220 Mg Cap) 220 mg PO DAILY [facility] Last Admin: 07/22/17 10:00 Dose: 220 mg - Labs Labs: 07/22/17 06:20 07/22/17 06:20 PT 13.1 SECONDS (9.4-12.5) H 06/15/17 11:00 INR 1.19 (0.93-1.08) H 06/15/17 11:00 APTT 31.3 Seconds (25.1-36.5) 06/15/17 11:00 - Constitutional Appears: Non-toxic, No Acute Distress - Head Exam Head Exam: ATRAUMATIC, NORMAL INSPECTION, NORMOCEPHALIC - Eye Exam Eye Exam: Normal appearance. absent: Conjunctival injection - ENT Exam ENT Exam: Mucous Membranes Moist - Respiratory Exam Respiratory Exam: Accessory Muscle Use, Decreased Breath Sounds, Clear to Ausculation Bilateral. absent: Rhonchi, Wheezes - Cardiovascular Exam Cardiovascular Exam: RRR, +S1, +S2 - GI/Abdominal Exam GI & Abdominal Exam: Distended, Soft. absent: Firm, Rigid, Tenderness, Organomegaly - Extremities Exam Extremities Exam: Pedal Edema (Decreased) Additional comments: RLE ulceration/with very minimal erythema (improved), scabbing. - Neurological Exam Neurological Exam: Alert, Oriented x3 - Psychiatric Exam Psychiatric exam: Anxious. absent: Flat Affect (Restricted Affect) Assessment and Plan - Assessment and Plan (Free Text) Assessment: 67 year old female with past medical history of asthma, arthritis, anemia, and obesity who initially presented with right lower extremity cellulitis and UTI. Patient was found to have cultures positive for Proteus mirabilis and beta hemolytic strep and completed course of Vancomycin and Azactam. Patient subsequently found to have Klebsiella UTI treated with Ciprofloxacin. Patient is awaiting placement in [facility], pending approval for Medicaid. Plan: Abdominal Distension (No improvement) - likely 2/2 to Constipation - CT Abdomen Pelvis with PO and IV Contrast (07/18): Interstitial and airspace disease in the lung bases; mild cardiomegaly and atherosclerotic disease; fatty liver; gallstones; possible pyelonephritis; mild ileus, no obstruction; constipation with fecal impaction -Consider GI Consult. Constipation (Resolving) -likely 2/2 to ileus and Iron -Patient has been having scant loose watery bowel movements. -Cont. Miralax BID SOB -Likely 2/2 to Asthma Exacerbation. -O2 Sat 89-90% on RA. Will test 02 Sat on RA again. -Duonebs PRN (Held) -Duonebs [facility] Q6H -Pulm consult added 07/18/17: Justine Duvall Appreciated -Ordered Lasix 40 one dose -RAS IFA screen w/ Reflex -CCP IGG Stat -RF -BNP 397 -CT Chest on 07/04/17: shows Mildly enlarged axillary lymph nodes and moderate cardiomegaly and mild vascular congestion Cough (Improved) - Possibly 2/2 to asthma exacerbation vs URI - Initial chest x-ray negative, F/u CXR and CT Chest are not indicative of acute disease - Tylenol prn for fevers - Tessalon pereles, Robitussin, and Mucinex for cough - Duonebs prn for shortness of breath (Held) - Duonebs [facility] Q6H - Pulm consult added 07/18/17: Dr. Love - justine appreciated - Incentive Spirometer Hypokalemia: -Replenished Headache - Continue fioricet PRN Normocytic anemia - Hemoglobin stable - Monitor daily GI/DVT ppx: Heparin, Protonix Dispo: Patient awaiting placement in [facility]. Per IRIS note on , 4 people are ahead of her in line with Medicaid. Per IRIS note on 07/21 "iris spoke with sample case porter sabiha fitzpatrick at [phone] ext [phone]. iris was advised that patient is $5000 over the medicaied limit and needs to spend those assets down. once she is at the threshold of $2000 medicaid will start paying august 02. iris placed call to brigette [phone] and left a message requesting a call back , iris provided contact information." Johanna Burns - PGY-1 Patient Seen and discussed with Attending. <Juan Rodriguez - Last Filed: 07/22/17 17:22> Objective - Vital Signs/Intake and Output Vital Signs (last 24 hours): Temp Pulse Resp BP Pulse Ox 98.5 F 84 20 161/85 H 91 L 07/22/17 07:30 07/22/17 07:30 07/22/17 07:30 07/22/17 16:10 07/22/17 16:30 Intake and Output: 07/22/17 07/22/17 06:59 18:59 Intake Total 360 Output Total 3 Balance 357 - Medications Medications: Current Medications Acetaminophen (Tylenol 325mg Tab) 650 mg PO Q4 PRN PRN Reason: Fever >100.4 F Last Admin: 07/21/17 21:51 Dose: 650 mg Acetaminophen/Butalbital/Caffeine (Fioricet) 1 tab PO Q4H PRN PRN Reason: Headache Last Admin: 07/20/17 21:04 Dose: 1 tab Albuterol/Ipratropium (Duoneb 3 Mg/0.5 Mg (3 Ml) Ud) 3 ml IH [id number] PRN PRN Reason: Shortness of Breath Last Admin: 07/15/17 00:51 Dose: 3 ml Albuterol/Ipratropium (Duoneb 3 Mg/0.5 Mg (3 Ml) Ud) 3 ml IH [id number] [facility] Last Admin: 07/22/17 13:40 Dose: 3 ml Benzonatate (Tessalon Perles) 100 mg PO TID [facility] Last Admin: 07/22/17 13:07 Dose: 100 mg Docusate Sodium (Colace) 100 mg PO DAILY [facility] Last Admin: 07/22/17 09:59 Dose: Not Given Ferrous Sulfate (Feosol) 324 mg PO TID [facility] Last Admin: 07/22/17 13:07 Dose: 324 mg Guaifenesin (Robitussin) 100 mg PO Q4H PRN PRN Reason: Cough Last Admin: 07/21/17 05:49 Dose: 100 mg Heparin Sodium (Porcine) (Heparin) 5,000 units SC Q12 [facility] PRN Reason: Protocol Last Admin: 07/22/17 10:00 Dose: 5,000 units Home Med (Home Med) 1 unit PO DAILY [facility] Last Admin: 07/22/17 10:26 Dose: 1 unit Potassium Chloride (Potassium Chloride 10 Meq/100 Ml) 10 meq in 100 mls @ 50 mls/hr IVPB Q2H [facility] Stop: 07/22/17 18:59 Last Admin: 07/22/17 16:08 Dose: 50 mls/hr Methylprednisolone (Solu-Medrol) 40 mg IVP Q8H [facility] Last Admin: 07/22/17 16:11 Dose: 40 mg Multivitamins/Minerals (Therapeutic-M Tab) 1 tab PO 0800 [facility] Last Admin: 07/22/17 10:02 Dose: 1 tab Nystatin (Nystop Topical Powder) 1 gm TOP DAILY [facility] Last Admin: 07/22/17 09:58 Dose: 1 applic Pantoprazole Sodium (Protonix Inj) 40 mg IVP DAILY [facility] Last Admin: 07/22/17 16:10 Dose: 40 mg Polyethylene Glycol (Miralax) 17 gm PO BID [facility] Last Admin: 07/22/17 10:26 Dose: Not Given Zinc Sulfate (Zinc Sulfate 220 Mg Cap) 220 mg PO DAILY [facility] Last Admin: 07/22/17 10:00 Dose: 220 mg - Labs Labs: 07/22/17 06:20 07/22/17 06:20 PT 13.1 SECONDS (9.4-12.5) H 06/15/17 11:00 INR 1.19 (0.93-1.08) H 06/15/17 11:00 APTT 31.3 Seconds (25.1-36.5) 06/15/17 11:00 Attending/Attestation - Attestation I have personally seen and examined this patient.: Yes I have fully participated in the care of the patient.: Yes I have reviewed all pertinent clinical information, including history, physical exam and plan: Yes Notes (Text): 07/22/17 17:20 67 year old female with past medical history of asthma, arthritis and anemia who presented with right lower extremity cellulitis and UTI s/p antibiotics. She complains of cough and intermittent dyspnea. Pulmonary evaluation was requested who recommended steroids. She is on duonebs and robitussin. Recent CT abd/pelvis showed mild ileus, constipation with fecal impaction. She is on colace and miralax for constipation and reports having BMs. She is currently awaiting TED placement. Juan Rodriguez MD Hospitalist.
[2017-07-22] MEDS: MethylPREDNISolone 40 mg Vial IVP SCH ×2 (16:11→23:14)
--- NOTE | 2017-07-22 18:07 | CP.PCM.PN ---
Subjective - Date & Time of Evaluation Date of Evaluation: 07/22/17 Time of Evaluation: 16:45 - Subjective Subjective: Infectious Disease Follow Up: July 22, 2017 67 yo female presenting with 3 weeks of RLE ulceration, swelling and leaking from the wound as well as multiple falls in the past 3 weeks. The patient has an extensive medical history of asthma, arthritis, vitamin C deficiency, and possible thyroid disease. Draining RLE ulceration... cellulitis improved/resolved. Multiple chronic medical issues. Still with persistent dry cough. Otherwise stable. Mild erythema and excoriation of the folds in the abdomen and under the breasts. Fevers up to 100.8 F two nights ago. Patient making few complaints. The patient has remained in bed. Nursing and aides had noted that the patient's friend "Chris" has encouraged the patient to stay in bed in order to get to a retirement or subacute facility. "Chris" was the person the patient was living with prior to coming to [facility]. Also noted that the patient has had a hacking cough the last couple of days. Afebrile for several days now. CT scan of chest done. CT shows mild vascular congestion and no infiltrates. UTI with Klebsiella earlier in hospitalization but had treatment with Cipro that is now completed. No additional issues. Social Issues. Off antibiotics now. No new significant complaints at this time. Objective - Vital Signs/Intake and Output Vital Signs (last 24 hours): Temp Pulse Resp BP Pulse Ox 98.5 F 84 20 161/85 H 91 L 07/22/17 07:30 07/22/17 07:30 07/22/17 07:30 07/22/17 16:10 07/22/17 16:30 Intake and Output: 07/22/17 07/22/17 06:59 18:59 Intake Total 360 Output Total 3 Balance 357 - Medications Medications: Current Medications Acetaminophen (Tylenol 325mg Tab) 650 mg PO Q4 PRN PRN Reason: Fever >100.4 F Last Admin: 07/21/17 21:51 Dose: 650 mg Acetaminophen/Butalbital/Caffeine (Fioricet) 1 tab PO Q4H PRN PRN Reason: Headache Last Admin: 07/20/17 21:04 Dose: 1 tab Albuterol/Ipratropium (Duoneb 3 Mg/0.5 Mg (3 Ml) Ud) 3 ml IH [id number] PRN PRN Reason: Shortness of Breath Last Admin: 07/15/17 00:51 Dose: 3 ml Albuterol/Ipratropium (Duoneb 3 Mg/0.5 Mg (3 Ml) Ud) 3 ml IH [id number] [facility] Last Admin: 07/22/17 13:40 Dose: 3 ml Benzonatate (Tessalon Perles) 100 mg PO TID [facility] Last Admin: 07/22/17 13:07 Dose: 100 mg Docusate Sodium (Colace) 100 mg PO DAILY [facility] Last Admin: 07/22/17 09:59 Dose: Not Given Ferrous Sulfate (Feosol) 324 mg PO TID [facility] Last Admin: 07/22/17 13:07 Dose: 324 mg Guaifenesin (Robitussin) 100 mg PO Q4H PRN PRN Reason: Cough Last Admin: 07/21/17 05:49 Dose: 100 mg Heparin Sodium (Porcine) (Heparin) 5,000 units SC Q12 [facility] PRN Reason: Protocol Last Admin: 07/22/17 10:00 Dose: 5,000 units Home Med (Home Med) 1 unit PO DAILY [facility] Last Admin: 07/22/17 10:26 Dose: 1 unit Potassium Chloride (Potassium Chloride 10 Meq/100 Ml) 10 meq in 100 mls @ 50 mls/hr IVPB Q2H [facility] Stop: 07/22/17 18:59 Last Admin: 07/22/17 16:08 Dose: 50 mls/hr Methylprednisolone (Solu-Medrol) 40 mg IVP Q8H [facility] Last Admin: 07/22/17 16:11 Dose: 40 mg Multivitamins/Minerals (Therapeutic-M Tab) 1 tab PO 0800 [facility] Last Admin: 07/22/17 10:02 Dose: 1 tab Nystatin (Nystop Topical Powder) 1 gm TOP DAILY [facility] Last Admin: 07/22/17 09:58 Dose: 1 applic Pantoprazole Sodium (Protonix Inj) 40 mg IVP DAILY [facility] Last Admin: 07/22/17 16:10 Dose: 40 mg Polyethylene Glycol (Miralax) 17 gm PO BID [facility] Last Admin: 07/22/17 10:26 Dose: Not Given Zinc Sulfate (Zinc Sulfate 220 Mg Cap) 220 mg PO DAILY [facility] Last Admin: 07/22/17 10:00 Dose: 220 mg - Labs Labs: 07/22/17 06:20 07/22/17 06:20 PT 13.1 SECONDS (9.4-12.5) H 06/15/17 11:00 INR 1.19 (0.93-1.08) H 06/15/17 11:00 APTT 31.3 Seconds (25.1-36.5) 06/15/17 11:00 - Constitutional Appears: Non-toxic, No Acute Distress, Chronically Ill - Head Exam Head Exam: ATRAUMATIC, NORMOCEPHALIC - Eye Exam Eye Exam: EOMI, PERRL Pupil Exam: NORMAL ACCOMODATION, PERRL - ENT Exam ENT Exam: Mucous Membranes Moist, Normal External Ear Exam, TM's Normal Bilaterally - Neck Exam Neck Exam: Full ROM, Normal Inspection - Respiratory Exam Respiratory Exam: Clear to Ausculation Bilateral, NORMAL BREATHING PATTERN. absent: Rales, Rhonchi, Wheezes - Cardiovascular Exam Cardiovascular Exam: REGULAR RHYTHM, RRR, +S1, +S2 - GI/Abdominal Exam GI & Abdominal Exam: Soft, Normal Bowel Sounds. absent: Distended, Tenderness - Extremities Exam Extremities Exam: Full ROM, Normal Inspection - Neurological Exam Neurological Exam: Alert, Awake, CN II-XII Intact, Oriented x3 - Psychiatric Exam Psychiatric exam: Normal Affect, Normal Mood - Skin Skin Exam: Intact, Normal Color Assessment and Plan - Assessment and Plan (Free Text) Assessment: 67 yo female with multiple medical issues with PCN allergy diagnosed as a teenager verified by an Environmental Studies Department Chair. The patient with leukocytosis. Await cultures especially urine cultures. Diabetes and HTN history? Local wound care. Elevated ESR and C-reactive protein. Completed Vancomycin and Aztreonam for antibiotic coverage. UTI with E. coli sensitive to Azactam. Was on Vancomycin for cellulitis IV. For UTI for 5-7 days treatment... completed. Supportive care. Cellulitis appears improved. No new issues. Social issues currently. Homeless at this time. CT scan of chest done. No infiltrates seen. Afebrile the past 24 hours. Mild congestion noted in CT with small pulmonary effusions. No leukocytosis. Slightly elevated procalcitonin (0.66) which is undefined without stronger evidence for pneumonia. When encouraged, she is able to use the incentive spirometer without issues and ambulate with minimal difficulty. UTI with Klebsiella. Sensitive to Cipro. Was on Cipro for 5 day course at 500mg PO BID. Completed the antibiotic course. Stable currently. No new issues. Off antibiotics at this time. Multiple social issues. Thank you for allowing me to participate in the care of the patient, we will follow with you.
[2017-07-22] MEDS ORDERED: Arformoterol 15 mcg/2 ml Inh Sol IH SCH (20:00)
[2017-07-22] MEDS ORDERED: Budesonide 0.5 mg/2 ml Inhal Susp UD IH SCH ×2 (20:00)
[2017-07-23] MEDS: Albuterol-Ipratrop 3 mg / 0.5 (3 ml) UD IH SCH ×4 (02:00→19:27)
--- NOTE | 2017-07-23 02:16 | CON ---
DATE: 07/22/2017 HISTORY OF PRESENT ILLNESS: This is a 67-year-old lady with history of asthma, bilateral lower extremity cellulitis, arthritis, vitamin C deficiency, thyroid disease, who presented about a month ago with right lower leg ulceration, swelling and leaking. She had systemic manifestations of the infection, and a presumptive diagnosis of severe sepsis due to right lower extremity cellulitis was made. Patient was treated accordingly with debridement, antibiotic therapy, Podiatry followup-->she subsequently imroved. However, about a week or so ago, patient started having dry cough, which was nagging in nature. Patient reports that the cough is worse when she lies flat in the bed; however, it is not associated with heartburn or any dietary indiscretions. She is not particularly short of breath; however, does experience that somewhat more when lying flat in the bed. Patient did have history of asthma; however, was not treated for it consistently. She was diagnosed with asthma as a child. She is not on inhaled corticosteroids. Patient denies nausea, vomiting, or diarrhea. She reports that the cough is dry and she is not bringing up any phlegm or sputum. No fever, no chills, no sweats. Echocardiogram performed on June 22 about a month ago revealed some left atrial dilation and [id number] pulmonary hypertension based on RVSP of 38 mmHg. Of note, CAT scan of the chest performed on 07/04/2017 revealed mild vascular congestion, but no nodules and no distant infiltrates. A small amount of pleural effusion was found in the left lung. Mildly enlarged axillary lymph nodes were also found. PAST MEDICAL HISTORY: Asthma, cellulitis, arthritis. ALLERGIES: PENICILLIN. FAMILY HISTORY: Noncontributory. SOCIAL HISTORY: The patient is a lifelong nonsmoker. No alcohol or illicit drug abuse. MEDICATIONS AT HOME: Mucinex, Robitussin, zinc, Protonix, metoprolol, heparin subcu, Colace, Tessalon, DuoNeb, Fioricet, Tylenol p.r.n. ACTIVE MEDICATIONS AT THE PRESENT TIME: Include Tylenol, Fioricet, DuoNeb every 6 hours, Colace, Feosol, heparin subcu, Solu-Medrol 40 mg IV q. 8 (started just now), Protonix, MiraLax, zinc. PHYSICAL EXAMINATION VITAL SIGNS: Temperature of 98.5, heart rate 84, blood pressure 161/85, respiratory rate of 20, oxygen saturation 96% on room air. HEENT: Head and neck atraumatic. No cobblestoning of nasopharyngeal mucosa LUNGS: Isolated wheeze on the right side, faint. Substantially decreased breath sounds bilaterally. No crackles, no rhonchi, no squeaks. HEART: Regular rate and rhythm. S1 and S2 normal. ABDOMEN: Soft, nontender, nondistended. MUSCULOSKELETAL: Cellulitis of right lower extremity. There are substantially deformed proximal metacarpophalangeal joints on both upper extremities, which are also tender. metatarsophalangeal joints in the right lower extremity also tender. Patient reports that she has hard time to brush her teeth and does it very slowly. SKIN: Moist, erythematous in the right lower extremity. PSYCH: The patient is alert and oriented x3. LABORATORY DATA: Sodium 141, potassium 3.3 (supplemented), carbon dioxide 35, BUN 8, creatinine 0.8, glucose 100, AST 31, ALT 27, total bilirubin 0.3, alkaline phosphatase 109. CRP performed in June 15 showed more than 15. ProBNP performed at the same time, 82.5. IMAGING STUDIES: Chest CT showed mild axillary lymphadenopathy and mild vascular congestion bilaterally with small bilateral pleural effusions. Upper extremity ultrasound was negative for DVT. Echocardiogram revealed somewhat dilated left atrium. Normal left ventricular systolic function. Mild concentric left ventricular hypertrophy. Left atrium is mildly dilated. The right ventricle is of normal size. RVSP 38 mmHg. ASSESSMENT AND PLAN: This is a 67-year-old lady with history of arthritis (high suspicion for RA) and asthma, now with dry cough. She denies postnasal drip, nasal congestion or upper respiratory infection. Her CAT scan did not reveal any pulmonary nodules, consolidations, or significant pleuritic disease, except for bilateral pleural effusion. She does however have a history of asthma. She does not have heartburn symptoms and other symptoms that would indicate the presence of gastroesophageal reflux disease; however, her admittance that her cough getting worse at nighttime and when she lies flat puts gastroesophageal reflux disease related cough on differential diagnoses list. At present time, I will proceed with steroid taper to cover possibility of cough variant asthma as well as eosinophilic bronchitis. As patient does not have nasal discharge, postnasal drip, and nasal stuffiness, possibility of UACS (upper airway cough syndrome) is less likely. As patient has mild vascular congestion on CAT scan, some dilated left atrium, and mild elevation in right ventricular systolic pressure, I would give one dose of diuretics and will reassess whether patient's symptoms improve. I will switch proton pump inhibitor from p.o. to IV, and will recommend dietary modification to avoid foods that may potentially provoke gastroesophageal reflux disease. As patient has arthritis of unclear etiology, I will order rheumatoid factor, CCP, IgG, ESR, and RAS. I will start patient on steroid taper. I spoke with Dr. Montero who said that, from ID perspective, steroids will not be contraindicated in this situation. I will also recommend BiPAP at night as patient is moderately obese; and if cough has relationship with asthma, improving FRC due to BiPAP application may also improve asthma control as well. I will continue to target euvolemia, glycemia, normothermia, and oxygen saturation more than 90%. I will continue with deep venous thrombosis and gastrointestinal prophylaxis. Bassem Love MD JERRELL
[2017-07-23] MEDS: MethylPREDNISolone 40 mg Vial IVP SCH ×3 (06:32→23:36)
[2017-07-23 07:15] LABS: GRAN # 9.32 (1.4-6.5); GRAN % 90.4 % (50.0-68.0); HEMOGLOBIN 9.8 g/dL (12.0-16.0); LYMPH # 0.8 (1.2-3.4); LYMPH % 7.9 % (22.0-35.0); MEAN CORPUSCULAR HEMOGLOBIN 24.9 pg (25.0-35.0); MEAN CORPUSCULAR HGB CONC 30.3 g/dl (31.0-37.0); MEAN PLATELET VOLUME 9.2 fl (7.0-11.0); MONO # 0.2 (0.1-0.6); MONO % 1.7 % (1.0-6.0); PLATELET COUNT 421 10^3/uL (120.0-450.0); RBC 3.94 10^6/uL (3.5-6.1); RED CELL DISTRIBUTION WIDTH 24.6 % (11.5-14.5); WHITE BLOOD COUNT 10.3 10^3/ul (4.5-11.0)
[2017-07-23] MEDS ORDERED: Potassium Chloride 20 mEq ER Tab PO ONE (08:00)
[2017-07-23 08:03] LABS: ALB/GLOB RATIO 0.8 (1.1-1.8); ALBUMIN 3.4 g/dL (3.0-4.8); ALT/SGPT 18 U/L (7-56); AST/SGOT 28 U/L (14-36); BLOOD UREA NITROGEN 10 mg/dL (7-21); CALCIUM 8.4 mg/dL (8.4-10.5); GFR AFRICAN-AMERICAN > 60; GFR NON-AFRICAN AMERICAN > 60
--- NOTE | 2017-07-23 09:20 | CP.PCM.PN ---
<Johanna Burns - Last Filed: 07/23/17 14:04> Subjective - Date & Time of Evaluation Date of Evaluation: 07/23/17 Time of Evaluation: 09:16 - Subjective Subjective: Patient has been seen and examined. No overnight events reported. She reports improvement of her SOB and her cough. Denies any fever, chest pain, abdominal pain, or urinary symptoms. Patient does complain of Right knee pain. She states she was able to walk with the walker yesterday. Patient reported diarrhea overnight. When asked by nurse again she stated that she has not had a bowel movement since Wednesday. About 5-10 minutes after, patient stated to Attending that she had diarrhea all night. Patient is a poor historian. Objective - Vital Signs/Intake and Output Vital Signs (last 24 hours): Temp Pulse Resp BP Pulse Ox 98.5 F 92 H 20 161/85 H 91 L 07/22/17 07:30 07/23/17 00:16 07/22/17 07:30 07/22/17 16:10 07/22/17 16:30 Intake and Output: 07/23/17 07/23/17 06:59 18:59 Intake Total 700 Balance 700 - Medications Medications: Current Medications Acetaminophen (Tylenol 325mg Tab) 650 mg PO Q4 PRN PRN Reason: Fever >100.4 F Last Admin: 07/23/17 04:21 Dose: 650 mg Acetaminophen/Butalbital/Caffeine (Fioricet) 1 tab PO Q4H PRN PRN Reason: Headache Last Admin: 07/20/17 21:04 Dose: 1 tab Albuterol/Ipratropium (Duoneb 3 Mg/0.5 Mg (3 Ml) Ud) 3 ml IH [id number] PRN PRN Reason: Shortness of Breath Last Admin: 07/15/17 00:51 Dose: 3 ml Albuterol/Ipratropium (Duoneb 3 Mg/0.5 Mg (3 Ml) Ud) 3 ml IH [id number] [facility] Last Admin: 07/23/17 08:02 Dose: 3 ml Benzonatate (Tessalon Perles) 100 mg PO TID [facility] Last Admin: 07/22/17 18:33 Dose: 100 mg Docusate Sodium (Colace) 100 mg PO DAILY [facility] Last Admin: 07/22/17 09:59 Dose: Not Given Ferrous Sulfate (Feosol) 324 mg PO TID [facility] Last Admin: 07/22/17 18:33 Dose: 324 mg Guaifenesin (Robitussin) 100 mg PO Q4H PRN PRN Reason: Cough Last Admin: 07/21/17 05:49 Dose: 100 mg Heparin Sodium (Porcine) (Heparin) 5,000 units SC Q12 ESCOBAR PRN Reason: Protocol Last Admin: 07/22/17 23:14 Dose: 5,000 units Home Med (Home Med) 1 unit PO DAILY [facility] Last Admin: 07/22/17 10:26 Dose: 1 unit Ibuprofen (Motrin Tab) 400 mg PO Q6H PRN PRN Reason: Pain, moderate (4-7) Methylprednisolone (Solu-Medrol) 40 mg IVP Q8H [facility] Last Admin: 07/23/17 06:32 Dose: 40 mg Multivitamins/Minerals (Therapeutic-M Tab) 1 tab PO 0800 [facility] Last Admin: 07/22/17 10:02 Dose: 1 tab Nystatin (Nystop Topical Powder) 1 gm TOP DAILY [facility] Last Admin: 07/22/17 09:58 Dose: 1 applic Pantoprazole Sodium (Protonix Inj) 40 mg IVP DAILY [facility] Last Admin: 07/22/17 16:10 Dose: 40 mg Polyethylene Glycol (Miralax) 17 gm PO BID [facility] Last Admin: 07/22/17 18:33 Dose: 17 gm Zinc Sulfate (Zinc Sulfate 220 Mg Cap) 220 mg PO DAILY [facility] Last Admin: 07/22/17 10:00 Dose: 220 mg - Labs Labs: 07/23/17 06:30 07/23/17 06:30 PT 13.1 SECONDS (9.4-12.5) H 06/15/17 11:00 INR 1.19 (0.93-1.08) H 06/15/17 11:00 APTT 31.3 Seconds (25.1-36.5) 06/15/17 11:00 - Additional Findings Additional findings: - Constitutional Appears: Non-toxic, No Acute Distress - Head Exam Head Exam: ATRAUMATIC, NORMAL INSPECTION, NORMOCEPHALIC - Eye Exam Eye Exam: Normal appearance. absent: Conjunctival injection - ENT Exam ENT Exam: Mucous Membranes Moist - Respiratory Exam Respiratory Exam: Accessory Muscle Use, Decreased Breath Sounds, Clear to Ausculation Bilateral. absent: Rhonchi, Wheezes - Cardiovascular Exam Cardiovascular Exam: RRR, +S1, +S2 - GI/Abdominal Exam GI & Abdominal Exam: Distended, Firm, hypoactive bowel sounds. absent: Soft, Rigid, Tenderness, Organomegaly - Extremities Exam Extremities Exam: Right knee TTP. absent: Pedal Edema, erythema. Additional comments: RLE scaly and scabbing. Assessment and Plan - Assessment and Plan (Free Text) Assessment: 67 year old female with past medical history of asthma, arthritis, anemia, and obesity who initially presented with right lower extremity cellulitis and UTI. Patient was found to have cultures positive for Proteus mirabilis and beta hemolytic strep and completed course of Vancomycin and Azactam. Patient subsequently found to have Klebsiella UTI treated with Ciprofloxacin. Patient is awaiting placement in [facility], pending approval for Medicaid. Plan: Abdominal Distension (No improvement) - likely 2/2 to Constipation - CT Abdomen Pelvis with PO and IV Contrast (07/18): Interstitial and airspace disease in the lung bases; mild cardiomegaly and atherosclerotic disease; fatty liver; gallstones; possible pyelonephritis; mild ileus, no obstruction; constipation with fecal impaction -Consider GI Consult, Consider repeat Imaging, consider fleet enema -More firm today. Constipation (Resolving) -likely 2/2 to ileus and Iron -Patient has been having scant loose watery bowel movements. -Cont. Miralax BID SOB -Likely 2/2 to Asthma Exacerbation. -O2 Sat 89-90% on RA. Will test 02 Sat on RA again. -Duonebs PRN (Held) -Duonebs ESCOBAR Q6H -Pulm consult added 07/18/17: Dr. Love, Recs Appreciated -Ordered Lasix 40 one dose -Added Solu-medrol 40 Q8 on 07/22 -RAS IFA screen w/ Reflex - PENDING -CCP IGG Stat - PENDING -RF - PENDING -BNP 397 -CT Chest on 07/04/17: shows Mildly enlarged axillary lymph nodes and moderate cardiomegaly and mild vascular congestion -ESR (07/22): 76 Cough (Improved) - Possibly 2/2 to asthma exacerbation vs URI - Initial chest x-ray negative, F/u CXR and CT Chest are not indicative of acute disease - Tylenol prn for fevers - Sherri Gan, and Mucinex for cough - Duonebs prn for shortness of breath (Held) - Duonebs ESCOBAR Q6H - Pulm consult added 07/18/17: Dr. Love - justine appreciated - Incentive Spirometer - Solu-medrol 40 Q8 per Pulm. Hypokalemia: (Stable) - Monitor Headache - Continue fioricet PRN Normocytic anemia - Hemoglobin stable - Monitor daily Right Knee Pain Knee is TTP. Difficult to distinguish swelling from adipose. -Added Ibuprofen PRN GI/DVT ppx: Heparin, Protonix Dispo: Patient awaiting placement in [facility]. Per IRIS note on , 4 people are ahead of her in line with Medicaid. Per IRIS note on 07/21 "iris spoke with shelter case manager sabiha fitzpatrick at [phone] ext [phone]. iris was advised that patient is $5000 over the medicaied limit and needs to spend those assets down. once she is at the threshold of $2000 medicaid will start paying august 02. iris placed call to brigette [phone] and left a message requesting a call back , iris provided contact information." Johanna Burns - PGY-1 Patient Seen and discussed with Attending. <Juan Rodriguez - Last Filed: 07/23/17 15:22> Objective - Vital Signs/Intake and Output Vital Signs (last 24 hours): Temp Pulse Resp BP Pulse Ox 98.1 F 80 20 156/77 H 95 07/23/17 10:44 07/23/17 10:44 07/23/17 10:44 07/23/17 10:44 07/23/17 10:44 Intake and Output: 07/23/17 07/23/17 06:59 18:59 Intake Total 700 Balance 700 - Medications Medications: Current Medications Acetaminophen (Tylenol 325mg Tab) 650 mg PO Q4 PRN PRN Reason: Fever >100.4 F Last Admin: 07/23/17 04:21 Dose: 650 mg Acetaminophen/Butalbital/Caffeine (Fioricet) 1 tab PO Q4H PRN PRN Reason: Headache Last Admin: 07/20/17 21:04 Dose: 1 tab Albuterol/Ipratropium (Duoneb 3 Mg/0.5 Mg (3 Ml) Ud) 3 ml IH [id number] PRN PRN Reason: Shortness of Breath Last Admin: 07/15/17 00:51 Dose: 3 ml Albuterol/Ipratropium (Duoneb 3 Mg/0.5 Mg (3 Ml) Ud) 3 ml IH [id number] [facility] Last Admin: 07/23/17 13:15 Dose: 3 ml Benzonatate (Tessalon Perles) 100 mg PO TID [facility] Last Admin: 07/23/17 15:09 Dose: 100 mg Docusate Sodium (Colace) 100 mg PO DAILY [facility] Last Admin: 07/23/17 10:10 Dose: 100 mg Ferrous Sulfate (Feosol) 324 mg PO TID [facility] Last Admin: 07/23/17 15:09 Dose: 324 mg Guaifenesin (Robitussin) 100 mg PO Q4H PRN PRN Reason: Cough Last Admin: 07/21/17 05:49 Dose: 100 mg Heparin Sodium (Porcine) (Heparin) 5,000 units SC Q12 ESCOBAR PRN Reason: Protocol Last Admin: 07/23/17 10:10 Dose: 5,000 units Home Med (Home Med) 1 unit PO DAILY [facility] Last Admin: 07/23/17 10:11 Dose: 1 unit Ibuprofen (Motrin Tab) 400 mg PO Q6H PRN PRN Reason: Pain, moderate (4-7) Methylprednisolone (Solu-Medrol) 40 mg IVP Q8H [facility] Last Admin: 07/23/17 15:11 Dose: 40 mg Multivitamins/Minerals (Therapeutic-M Tab) 1 tab PO 0800 [facility] Last Admin: 07/23/17 10:15 Dose: 1 tab Nystatin (Nystop Topical Powder) 1 gm TOP DAILY [facility] Last Admin: 07/23/17 10:11 Dose: 1 applic Pantoprazole Sodium (Protonix Ec Tab) 40 mg PO ACB [facility] Polyethylene Glycol (Miralax) 17 gm PO BID [facility] Last Admin: 07/23/17 10:10 Dose: 17 gm Zinc Sulfate (Zinc Sulfate 220 Mg Cap) 220 mg PO DAILY [facility] Last Admin: 07/23/17 10:10 Dose: 220 mg - Labs Labs: 07/23/17 06:30 07/23/17 06:30 PT 13.1 SECONDS (9.4-12.5) H 06/15/17 11:00 INR 1.19 (0.93-1.08) H 06/15/17 11:00 APTT 31.3 Seconds (25.1-36.5) 06/15/17 11:00 Attending/Attestation - Attestation I have personally seen and examined this patient.: Yes I have fully participated in the care of the patient.: Yes I have reviewed all pertinent clinical information, including history, physical exam and plan: Yes Notes (Text): 07/23/17 15:21 67 year old female with past medical history of asthma, arthritis and anemia who presented with right lower extremity cellulitis and UTI s/p antibiotics. Recent CT abd/pelvis showed mild ileus, constipation with fecal impaction. She is on colace and miralax for constipation and reports having BMs. Pulmonary is following for complaint of cough and intermittent dyspnea. She is currently on iv steroids, duonebs and robitussin and reports improvement. She is currently awaiting TED placement. Juan Rodriguez MD Hospitalist.
[2017-07-23] MEDS: POLYETHYLENE GLYCOL 3350 17 GM/Dose PACKET PO SCH ×2 (10:10→17:21)
[2017-07-23] MEDS: VITAMIN C 500MG PO SCH (10:11)
[2017-07-23] MEDS: Nystatin 100,000 Units/gm Topical Pow(15 gm) TOP SCH (10:11)
[2017-07-23] MEDS: Multivitamin With Minerals Tab PO SCH (10:15)
[2017-07-23 10:22] LABS: ANISOCYTOSIS SLIGHT; LYMPHOCYTE 8 % (22.0-35.0); MONOCYTE 2 % (1.0-6.0); NEUTROPHIL 90 % (50.0-70.0); PLATELET ESTIMATE NORMAL (NORMAL)
--- NOTE | 2017-07-23 15:17 | CP.PCM.PN ---
Subjective - Date & Time of Evaluation Date of Evaluation: 07/23/17 Time of Evaluation: 15:12 - Subjective Subjective: Patient seen and examined at bedside, reports that her cough is slightly improved, but more prominent at night. Denies fever, chills, chest pain, SOB, palpitations, VASQUEZ, dizziness. No other constitutional symptoms. Objective - Vital Signs/Intake and Output Vital Signs (last 24 hours): Temp Pulse Resp BP Pulse Ox 98.1 F 80 20 156/77 H 95 07/23/17 10:44 07/23/17 10:44 07/23/17 10:44 07/23/17 10:44 07/23/17 10:44 Intake and Output: 07/23/17 07/23/17 06:59 18:59 Intake Total 700 Balance 700 - Medications Medications: Current Medications Acetaminophen (Tylenol 325mg Tab) 650 mg PO Q4 PRN PRN Reason: Fever >100.4 F Last Admin: 07/23/17 04:21 Dose: 650 mg Acetaminophen/Butalbital/Caffeine (Fioricet) 1 tab PO Q4H PRN PRN Reason: Headache Last Admin: 07/20/17 21:04 Dose: 1 tab Albuterol/Ipratropium (Duoneb 3 Mg/0.5 Mg (3 Ml) Ud) 3 ml IH [id number] PRN PRN Reason: Shortness of Breath Last Admin: 07/15/17 00:51 Dose: 3 ml Albuterol/Ipratropium (Duoneb 3 Mg/0.5 Mg (3 Ml) Ud) 3 ml IH [id number] [facility] Last Admin: 07/23/17 13:15 Dose: 3 ml Benzonatate (Tessalon Perles) 100 mg PO TID [facility] Last Admin: 07/23/17 10:11 Dose: 100 mg Docusate Sodium (Colace) 100 mg PO DAILY [facility] Last Admin: 07/23/17 10:10 Dose: 100 mg Ferrous Sulfate (Feosol) 324 mg PO TID [facility] Last Admin: 07/23/17 10:10 Dose: 324 mg Guaifenesin (Robitussin) 100 mg PO Q4H PRN PRN Reason: Cough Last Admin: 07/21/17 05:49 Dose: 100 mg Heparin Sodium (Porcine) (Heparin) 5,000 units SC Q12 ESCOBAR PRN Reason: Protocol Last Admin: 07/23/17 10:10 Dose: 5,000 units Home Med (Home Med) 1 unit PO DAILY [facility] Last Admin: 07/23/17 10:11 Dose: 1 unit Ibuprofen (Motrin Tab) 400 mg PO Q6H PRN PRN Reason: Pain, moderate (4-7) Methylprednisolone (Solu-Medrol) 40 mg IVP Q8H [facility] Last Admin: 07/23/17 06:32 Dose: 40 mg Multivitamins/Minerals (Therapeutic-M Tab) 1 tab PO 0800 [facility] Last Admin: 07/23/17 10:15 Dose: 1 tab Nystatin (Nystop Topical Powder) 1 gm TOP DAILY [facility] Last Admin: 07/23/17 10:11 Dose: 1 applic Pantoprazole Sodium (Protonix Ec Tab) 40 mg PO ACB [facility] Polyethylene Glycol (Miralax) 17 gm PO BID [facility] Last Admin: 07/23/17 10:10 Dose: 17 gm Zinc Sulfate (Zinc Sulfate 220 Mg Cap) 220 mg PO DAILY [facility] Last Admin: 07/23/17 10:10 Dose: 220 mg - Labs Labs: 07/23/17 06:30 07/23/17 06:30 PT 13.1 SECONDS (9.4-12.5) H 06/15/17 11:00 INR 1.19 (0.93-1.08) H 06/15/17 11:00 APTT 31.3 Seconds (25.1-36.5) 06/15/17 11:00 - Constitutional Appears: Well, Non-toxic, No Acute Distress - Head Exam Head Exam: NORMAL INSPECTION - Eye Exam Eye Exam: EOMI, Normal appearance - ENT Exam ENT Exam: Mucous Membranes Moist - Respiratory Exam Respiratory Exam: Clear to Ausculation Bilateral, NORMAL BREATHING PATTERN - Cardiovascular Exam Cardiovascular Exam: REGULAR RHYTHM, +S1, +S2 - GI/Abdominal Exam GI & Abdominal Exam: Soft, Normal Bowel Sounds - Extremities Exam Additional comments: +edema b/l, vascular changes - Neurological Exam Neurological Exam: Alert, Awake, Oriented x3 Assessment and Plan - Assessment and Plan (Free Text) Assessment: Pt is 67yo female with cough Cough rule out YANELY - currently afebrile, HD stable, comfortable, in NAD - on exam, has large neck, with lungs CTABL, no wheezing, rales, or rhonchi - reports cough is somewhat improved, but still more prominent at night - CAT scan of the chest from earlier this month reviewed, no further new CT imaging of the chest is available - cough could likely be cough variant asthma, vs GERD related cough, unlikely to be PND related as patient denies PND symptoms. - no parenchymal nodules, consolidations, lesions, pleural disease noted on CT chest Recommend: - cont with supp o2 as needed - CPAP at night P=8 - cont with PPI daily, before meals - would cont with Solumedrol 40mg IV q8hr for now, with possible taper starting tomorrow - FS control - Would hold off further IV diuresis - GI ppx - DVT ppx - OOB to chair, IS - pulmonary will continue to follow
--- NOTE | 2017-07-23 21:56 | CP.PCM.PN ---
Subjective - Date & Time of Evaluation Date of Evaluation: 07/23/17 Time of Evaluation: 20:00 - Subjective Subjective: Infectious Disease Follow Up: July 23, 2017 67 yo female presenting with 3 weeks of RLE ulceration, swelling and leaking from the wound as well as multiple falls in the past 3 weeks. The patient has an extensive medical history of asthma, arthritis, vitamin C deficiency, and possible thyroid disease. Draining RLE ulceration... cellulitis improved/resolved. Multiple chronic medical issues. Still with persistent dry cough. Otherwise stable. Mild erythema and excoriation of the folds in the abdomen and under the breasts. Fevers up to 100.8 F two nights ago. Patient making few complaints. The patient has remained in bed. Nursing and aides had noted that the patient's friend "Chris" has encouraged the patient to stay in bed in order to get to a prison or subacute facility. "Chris" was the person the patient was living with prior to coming to [facility]. Also noted that the patient has had a hacking cough the last couple of days. Afebrile for several days now. CT scan of chest done. CT shows mild vascular congestion and no infiltrates. UTI with Klebsiella earlier in hospitalization but had treatment with Cipro that is now completed. No additional issues. Social Issues. Off antibiotics now. No new significant complaints at this time. Objective - Vital Signs/Intake and Output Vital Signs (last 24 hours): Temp Pulse Resp BP Pulse Ox 98.1 F 80 20 156/77 H 95 07/23/17 10:44 07/23/17 10:44 07/23/17 10:44 07/23/17 10:44 07/23/17 10:44 - Medications Medications: Current Medications Acetaminophen (Tylenol 325mg Tab) 650 mg PO Q4 PRN PRN Reason: Fever >100.4 F Last Admin: 07/23/17 04:21 Dose: 650 mg Acetaminophen/Butalbital/Caffeine (Fioricet) 1 tab PO Q4H PRN PRN Reason: Headache Last Admin: 07/20/17 21:04 Dose: 1 tab Albuterol/Ipratropium (Duoneb 3 Mg/0.5 Mg (3 Ml) Ud) 3 ml IH [id number] PRN PRN Reason: Shortness of Breath Last Admin: 07/15/17 00:51 Dose: 3 ml Albuterol/Ipratropium (Duoneb 3 Mg/0.5 Mg (3 Ml) Ud) 3 ml IH [id number] [facility] Last Admin: 07/23/17 19:27 Dose: 3 ml Benzonatate (Tessalon Perles) 100 mg PO TID [facility] Last Admin: 07/23/17 17:21 Dose: 100 mg Docusate Sodium (Colace) 100 mg PO DAILY [facility] Last Admin: 07/23/17 10:10 Dose: 100 mg Ferrous Sulfate (Feosol) 324 mg PO TID [facility] Last Admin: 07/23/17 17:21 Dose: 324 mg Guaifenesin (Robitussin) 100 mg PO Q4H PRN PRN Reason: Cough Last Admin: 07/21/17 05:49 Dose: 100 mg Heparin Sodium (Porcine) (Heparin) 5,000 units SC Q12 ESCOBAR PRN Reason: Protocol Last Admin: 07/23/17 10:10 Dose: 5,000 units Home Med (Home Med) 1 unit PO DAILY [facility] Last Admin: 07/23/17 10:11 Dose: 1 unit Ibuprofen (Motrin Tab) 400 mg PO Q6H PRN PRN Reason: Pain, moderate (4-7) Last Admin: 07/23/17 20:42 Dose: 400 mg Methylprednisolone (Solu-Medrol) 40 mg IVP Q8H [facility] Last Admin: 07/23/17 15:11 Dose: 40 mg Multivitamins/Minerals (Therapeutic-M Tab) 1 tab PO 0800 [facility] Last Admin: 07/23/17 10:15 Dose: 1 tab Nystatin (Nystop Topical Powder) 1 gm TOP DAILY [facility] Last Admin: 07/23/17 10:11 Dose: 1 applic Pantoprazole Sodium (Protonix Ec Tab) 40 mg PO ACB [facility] Polyethylene Glycol (Miralax) 17 gm PO BID [facility] Last Admin: 07/23/17 17:21 Dose: 17 gm Zinc Sulfate (Zinc Sulfate 220 Mg Cap) 220 mg PO DAILY [facility] Last Admin: 07/23/17 10:10 Dose: 220 mg - Labs Labs: 07/23/17 06:30 07/23/17 06:30 PT 13.1 SECONDS (9.4-12.5) H 06/15/17 11:00 INR 1.19 (0.93-1.08) H 06/15/17 11:00 APTT 31.3 Seconds (25.1-36.5) 06/15/17 11:00 - Constitutional Appears: Non-toxic, No Acute Distress, Chronically Ill - Head Exam Head Exam: ATRAUMATIC, NORMOCEPHALIC - Eye Exam Eye Exam: EOMI, PERRL Pupil Exam: NORMAL ACCOMODATION, PERRL - ENT Exam ENT Exam: Mucous Membranes Moist, Normal External Ear Exam, TM's Normal Bilaterally - Neck Exam Neck Exam: Full ROM, Normal Inspection - Respiratory Exam Respiratory Exam: Clear to Ausculation Bilateral, NORMAL BREATHING PATTERN. absent: Rales, Rhonchi, Wheezes - Cardiovascular Exam Cardiovascular Exam: REGULAR RHYTHM, RRR, +S1, +S2 - GI/Abdominal Exam GI & Abdominal Exam: Soft, Normal Bowel Sounds. absent: Distended, Tenderness - Extremities Exam Extremities Exam: Full ROM, Normal Inspection - Neurological Exam Neurological Exam: Alert, Awake, CN II-XII Intact, Oriented x3 - Psychiatric Exam Psychiatric exam: Normal Affect, Normal Mood - Skin Skin Exam: Intact, Normal Color Assessment and Plan - Assessment and Plan (Free Text) Assessment: 67 yo female with multiple medical issues with PCN allergy diagnosed as a teenager verified by an Camp [employer] Specialist. The patient with leukocytosis. Await cultures especially urine cultures. Diabetes and HTN history? Local wound care. Elevated ESR and C-reactive protein. Completed Vancomycin and Aztreonam for antibiotic coverage. UTI with E. coli sensitive to Azactam. Was on Vancomycin for cellulitis IV. For UTI for 5-7 days treatment... completed. Supportive care. Cellulitis appears improved. No new issues. Social issues currently. Homeless at this time. CT scan of chest done. No infiltrates seen. Afebrile the past 24 hours. Mild congestion noted in CT with small pulmonary effusions. No leukocytosis. Slightly elevated procalcitonin (0.66) which is undefined without stronger evidence for pneumonia. When encouraged, she is able to use the incentive spirometer without issues and ambulate with minimal difficulty. UTI with Klebsiella. Sensitive to Cipro. Was on Cipro for 5 day course at 500mg PO BID. Completed the antibiotic course. Stable currently. No new issues. Off antibiotics at this time. Multiple social issues. Thank you for allowing me to participate in the care of the patient, we will follow with you.
[2017-07-24] MEDS: Albuterol-Ipratrop 3 mg / 0.5 (3 ml) UD IH SCH ×2 (01:14→09:29)
[2017-07-24] MEDS: MethylPREDNISolone 40 mg Vial IVP SCH ×3 (06:55→21:27)
[2017-07-24] MEDS: Multivitamin With Minerals Tab PO SCH (08:14)
[2017-07-24] MEDS: Pantoprazole 40 mg EC Tab PO SCH (08:14)
[2017-07-24] MEDS: POLYETHYLENE GLYCOL 3350 17 GM/Dose PACKET PO SCH ×2 (09:54→17:09)
[2017-07-24] MEDS: VITAMIN C 500MG PO SCH (09:55)
[2017-07-24] MEDS: Nystatin 100,000 Units/gm Topical Pow(15 gm) TOP SCH (09:56)
--- NOTE | 2017-07-24 13:09 | CP.PCM.PN ---
<Melita Garcia - Last Filed: 07/24/17 13:06> Subjective - Date & Time of Evaluation Date of Evaluation: 07/24/17 Time of Evaluation: 13:06 - Subjective Subjective: Melita Garcia, PGY1, Medicine Progress Note for Dr Rodriguez: Patient seen and examined at bedside. No acute overnight events. Denies any fever, chills, foot pain, chest pain, abdominal pain/distention, or urinary symptoms. Pt reports no diarrhea overnight, pt states that within past 24 hours , she had 3 loose nonbloody, BM. Notified nursing staff to record patient's BM in charts. Objective - Vital Signs/Intake and Output Vital Signs (last 24 hours): Temp Pulse Resp BP Pulse Ox 97.6 F 92 H 20 175/97 H 98 07/24/17 07:30 07/24/17 07:30 07/24/17 07:30 07/24/17 07:30 07/24/17 07:30 Intake and Output: 07/24/17 07/24/17 06:59 18:59 Intake Total 240 Output Total 2 Balance 238 - Medications Medications: Current Medications Acetaminophen (Tylenol 325mg Tab) 650 mg PO Q4 PRN PRN Reason: Fever >100.4 F Last Admin: 07/23/17 04:21 Dose: 650 mg Acetaminophen/Butalbital/Caffeine (Fioricet) 1 tab PO Q4H PRN PRN Reason: Headache Last Admin: 07/20/17 21:04 Dose: 1 tab Albuterol/Ipratropium (Duoneb 3 Mg/0.5 Mg (3 Ml) Ud) 3 ml IH [id number] PRN PRN Reason: Shortness of Breath Last Admin: 07/15/17 00:51 Dose: 3 ml Albuterol/Ipratropium (Duoneb 3 Mg/0.5 Mg (3 Ml) Ud) 3 ml IH [id number] [facility] Last Admin: 07/24/17 09:29 Dose: 3 ml Benzonatate (Tessalon Perles) 100 mg PO TID [facility] Last Admin: 07/24/17 09:54 Dose: 100 mg Docusate Sodium (Colace) 100 mg PO DAILY [facility] Last Admin: 07/24/17 09:54 Dose: 100 mg Ferrous Sulfate (Feosol) 324 mg PO TID [facility] Last Admin: 07/24/17 09:54 Dose: 324 mg Guaifenesin (Robitussin) 100 mg PO Q4H PRN PRN Reason: Cough Last Admin: 07/21/17 05:49 Dose: 100 mg Heparin Sodium (Porcine) (Heparin) 5,000 units SC Q12 [facility] PRN Reason: Protocol Last Admin: 07/24/17 09:54 Dose: 5,000 units Home Med (Home Med) 1 unit PO DAILY [facility] Last Admin: 07/24/17 09:55 Dose: 1 unit Ibuprofen (Motrin Tab) 400 mg PO Q6H PRN PRN Reason: Pain, moderate (4-7) Last Admin: 07/23/17 20:42 Dose: 400 mg Insulin Human Lispro (Humalog Med) 0 units SC ACHS [facility] PRN Reason: Protocol Methylprednisolone (Solu-Medrol) 30 mg IVP Q8H [facility] Multivitamins/Minerals (Therapeutic-M Tab) 1 tab PO 0800 [facility] Last Admin: 07/24/17 08:14 Dose: 1 tab Nystatin (Nystop Topical Powder) 1 gm TOP DAILY [facility] Last Admin: 07/24/17 09:56 Dose: 1 applic Pantoprazole Sodium (Protonix Ec Tab) 40 mg PO ACB [facility] Last Admin: 07/24/17 08:14 Dose: 40 mg Polyethylene Glycol (Miralax) 17 gm PO BID [facility] Last Admin: 07/24/17 09:54 Dose: 17 gm Zinc Sulfate (Zinc Sulfate 220 Mg Cap) 220 mg PO DAILY [facility] Last Admin: 07/24/17 09:54 Dose: 220 mg - Labs Labs: 07/23/17 06:30 07/23/17 06:30 PT 13.1 SECONDS (9.4-12.5) H 06/15/17 11:00 INR 1.19 (0.93-1.08) H 06/15/17 11:00 APTT 31.3 Seconds (25.1-36.5) 06/15/17 11:00 - Additional Findings Additional findings: - Constitutional Appears: Non-toxic, No Acute Distress - Head Exam Head Exam: ATRAUMATIC, NORMAL INSPECTION, NORMOCEPHALIC - Eye Exam Eye Exam: Normal appearance. absent: Conjunctival injection - ENT Exam ENT Exam: Mucous Membranes Moist - Respiratory Exam Respiratory Exam: Accessory Muscle Use, Decreased Breath Sounds, Clear to Ausculation Bilateral. absent: Rhonchi, Wheezes - Cardiovascular Exam Cardiovascular Exam: RRR, +S1, +S2 - GI/Abdominal Exam GI & Abdominal Exam: Soft, normal bowel sounds. absent: Rigid, Tenderness, Organomegaly - Extremities Exam Extremities Exam: absent: Pedal Edema, erythema. Additional comments: RLE scaly and scabbing. Assessment and Plan - Assessment and Plan (Free Text) Assessment: 67 year old female with past medical history of asthma, arthritis, anemia, and obesity who initially presented with right lower extremity cellulitis and UTI. Patient was found to have cultures positive for Proteus mirabilis and beta hemolytic strep and completed course of Vancomycin and Azactam. Patient subsequently found to have Klebsiella UTI treated adequately with Ciprofloxacin. Patient is awaiting placement in TED, pending approval for Medicaid. Plan: Abdominal Distension, improved: - likely 2/2 to Constipation - CT Abdomen Pelvis with PO and IV Contrast (07/18): Interstitial and airspace disease in the lung bases; mild cardiomegaly and atherosclerotic disease; fatty liver; gallstones; possible pyelonephritis; mild ileus, no obstruction; constipation with fecal impaction -Consider GI Consult, Consider repeat Imaging, consider fleet enema -More firm today. Hyperglycemia: 2/2 likely steroid induced - ISS, will taper off steroids. Constipation (Resolving) -likely 2/2 to ileus and Iron -Patient reports no diarrhea overnight, 3 loose BM within past 24 hours. -Cont. Miralax BID and colace PO daily - Cont to monitor BMs. SOB -Likely 2/2 to Asthma Exacerbation. -O2 Sat 89-90% on RA. Will test 02 Sat on RA again. -Duonebs PRN (Held) -Duonebs ESCOBAR Q6H -Pulm consult added 07/18/17: Dr. Love, Recs Appreciated -Ordered Lasix 40 one dose -Added Solu-medrol 40 Q8 on 07/22 -RAS IFA screen w/ Reflex - PENDING -CCP IGG Stat - PENDING -RF - PENDING -BNP 397 -CT Chest on 07/04/17: shows Mildly enlarged axillary lymph nodes and moderate cardiomegaly and mild vascular congestion -ESR (07/22): 76 Cough (Improved) - Possibly 2/2 to asthma exacerbation vs URI - Initial chest x-ray negative, F/u CXR and CT Chest are not indicative of acute disease - Tylenol prn for fevers - Tessalon pereles, Robitussin, and Mucinex for cough - Duonebs prn for shortness of breath (Held) - Duonebs ESCOBAR Q6H - Pulm consult added 07/18/17: Dr. Love - justine appreciated - Incentive Spirometer - Solu-medrol 40 Q8 per Pulm. Hypokalemia: (Stable) - Monitor Headache - Continue fioricet PRN Normocytic anemia - Hemoglobin stable - Monitor daily Right Knee Pain Knee is TTP. Difficult to distinguish swelling from adipose. -Added Ibuprofen PRN GI/DVT ppx: Heparin, Protonix Dispo: Patient awaiting placement in [facility]. Per IRIS note on , 4 people are ahead of her in line with Medicaid. Per IRIS note on 07/21 "iris spoke with counter caser sabiha fitzpatrick at [phone] ext [phone]. iris was advised that patient is $5000 over the medicaied limit and needs to spend those assets down. once she is at the threshold of $2000 medicaid will start paying august 02. iris placed call to brigette [phone] and left a message requesting a call back , iris provided contact information." Patient seen and discussed with Dr Rodriguez. Melita Garcia, PGY-1 <Juan Rodriguez - Last Filed: 07/24/17 13:34> Objective - Vital Signs/Intake and Output Vital Signs (last 24 hours): Temp Pulse Resp BP Pulse Ox 97.6 F 92 H 20 175/97 H 98 07/24/17 07:30 07/24/17 07:30 07/24/17 07:30 07/24/17 07:30 07/24/17 07:30 Intake and Output: 07/24/17 07/24/17 06:59 18:59 Intake Total 240 Output Total 2 Balance 238 - Medications Medications: Current Medications Acetaminophen (Tylenol 325mg Tab) 650 mg PO Q4 PRN PRN Reason: Fever >100.4 F Last Admin: 07/23/17 04:21 Dose: 650 mg Acetaminophen/Butalbital/Caffeine (Fioricet) 1 tab PO Q4H PRN PRN Reason: Headache Last Admin: 07/20/17 21:04 Dose: 1 tab Albuterol/Ipratropium (Duoneb 3 Mg/0.5 Mg (3 Ml) Ud) 3 ml IH [id number] PRN PRN Reason: Shortness of Breath Last Admin: 07/15/17 00:51 Dose: 3 ml Arformoterol Tartrate (Brovana) 15 mcg IH [id number] [facility] Benzonatate (Tessalon Perles) 100 mg PO TID [facility] Last Admin: 07/24/17 09:54 Dose: 100 mg Budesonide (Pulmicort Respules) 0.5 mg IH [id number] [facility] Docusate Sodium (Colace) 100 mg PO DAILY [facility] Last Admin: 07/24/17 09:54 Dose: 100 mg Ferrous Sulfate (Feosol) 324 mg PO TID [facility] Last Admin: 07/24/17 09:54 Dose: 324 mg Guaifenesin (Robitussin) 100 mg PO Q4H PRN PRN Reason: Cough Last Admin: 07/21/17 05:49 Dose: 100 mg Heparin Sodium (Porcine) (Heparin) 5,000 units SC Q12 [facility] PRN Reason: Protocol Last Admin: 07/24/17 09:54 Dose: 5,000 units Home Med (Home Med) 1 unit PO DAILY [facility] Last Admin: 07/24/17 09:55 Dose: 1 unit Ibuprofen (Motrin Tab) 400 mg PO Q6H PRN PRN Reason: Pain, moderate (4-7) Last Admin: 07/23/17 20:42 Dose: 400 mg Insulin Human Lispro (Humalog Med) 0 units SC ACHS [facility] PRN Reason: Protocol Methylprednisolone (Solu-Medrol) 30 mg IVP Q8H [facility] Multivitamins/Minerals (Therapeutic-M Tab) 1 tab PO 0800 [facility] Last Admin: 07/24/17 08:14 Dose: 1 tab Nystatin (Nystop Topical Powder) 1 gm TOP DAILY [facility] Last Admin: 07/24/17 09:56 Dose: 1 applic Pantoprazole Sodium (Protonix Ec Tab) 40 mg PO ACB [facility] Last Admin: 07/24/17 08:14 Dose: 40 mg Polyethylene Glycol (Miralax) 17 gm PO BID [facility] Last Admin: 07/24/17 09:54 Dose: 17 gm Zinc Sulfate (Zinc Sulfate 220 Mg Cap) 220 mg PO DAILY [facility] Last Admin: 07/24/17 09:54 Dose: 220 mg - Labs Labs: 07/23/17 06:30 07/23/17 06:30 PT 13.1 SECONDS (9.4-12.5) H 06/15/17 11:00 INR 1.19 (0.93-1.08) H 06/15/17 11:00 APTT 31.3 Seconds (25.1-36.5) 06/15/17 11:00 Attending/Attestation - Attestation I have personally seen and examined this patient.: Yes I have fully participated in the care of the patient.: Yes I have reviewed all pertinent clinical information, including history, physical exam and plan: Yes Notes (Text): 07/24/17 13:28 67 year old female with past medical history of asthma, arthritis and anemia who presented with right lower extremity cellulitis and UTI s/p antibiotics. CT abd/pelvis showed mild ileus, constipation with fecal impaction. She is on colace and miralax for constipation and reports having BMs. Pulmonary is following for complaint of cough and intermittent dyspnea. She is currently on iv steroids, duonebs and robitussin and reports improvement. CCP level is elevated. RAS +. RF pending. Possible rheumatoid arthritis. She is on steroids as above. Recommend outpatient rheumatology evaluation. She is currently awaiting TED placement. Juan Rodriguez MD Hospitalist.
[2017-07-24] MEDS: Insulin Lispro (humaLOG) MEDIUM Coverage SC SCH ×2 (17:11→22:16)
--- NOTE | 2017-07-24 18:25 | CP.PCM.PN ---
Subjective - Date & Time of Evaluation Date of Evaluation: 07/24/17 Time of Evaluation: 15:00 - Subjective Subjective: Infectious Disease Follow Up: July 24, 2017 67 yo female presenting with 3 weeks of RLE ulceration, swelling and leaking from the wound as well as multiple falls in the past 3 weeks. The patient has an extensive medical history of asthma, arthritis, vitamin C deficiency, and possible thyroid disease. Draining RLE ulceration... cellulitis improved/resolved. Multiple chronic medical issues. Still with persistent dry cough. Otherwise stable. Mild erythema and excoriation of the folds in the abdomen and under the breasts. Fevers up to 100.8 F two nights ago. Patient making few complaints. The patient has remained in bed. Nursing and aides had noted that the patient's friend "Chris" has encouraged the patient to stay in bed in order to get to a assisted or subacute facility. "Chris" was the person the patient was living with prior to [place] [facility] [place] Also noted that the patient has had a hacking cough the last couple of days. Afebrile for several days now. CT scan of chest done. CT shows mild vascular congestion and no infiltrates. UTI with Klebsiella earlier in hospitalization but had treatment with Cipro that is now completed. No additional issues. Social Issues. Off antibiotics now. No new significant complaints at this time. Vague abdominal pain complaints. Objective - Vital Signs/Intake and Output Vital Signs (last 24 hours): Temp Pulse Resp BP Pulse Ox 98.6 F 92 H 18 189/101 H 100 07/24/17 16:22 07/24/17 16:22 07/24/17 16:22 07/24/17 16:22 07/24/17 16:22 Intake and Output: 07/24/17 07/24/17 06:59 18:59 Intake Total 240 840 Output Total 2 Balance 238 840 - Medications Medications: Current Medications Acetaminophen/Butalbital/Caffeine (Fioricet) 1 tab PO Q4H PRN PRN Reason: Headache Last Admin: 07/20/17 21:04 Dose: 1 tab Albuterol/Ipratropium (Duoneb 3 Mg/0.5 Mg (3 Ml) Ud) 3 ml IH [id number] PRN PRN Reason: Shortness of Breath Last Admin: 07/15/17 00:51 Dose: 3 ml Arformoterol Tartrate (Brovana) 15 mcg IH [id number] [facility] Benzonatate (Tessalon Perles) 100 mg PO TID [facility] Last Admin: 07/24/17 17:10 Dose: 100 mg Budesonide (Pulmicort Respules) 0.5 mg IH [id number] [facility] Docusate Sodium (Colace) 100 mg PO DAILY [facility] Last Admin: 07/24/17 09:54 Dose: 100 mg Ferrous Sulfate (Feosol) 324 mg PO TID [facility] Last Admin: 07/24/17 17:09 Dose: 324 mg Guaifenesin (Robitussin) 100 mg PO Q4H PRN PRN Reason: Cough Last Admin: 07/21/17 05:49 Dose: 100 mg Heparin Sodium (Porcine) (Heparin) 5,000 units SC Q12 [facility] PRN Reason: Protocol Last Admin: 07/24/17 09:54 Dose: 5,000 units Home Med (Home Med) 1 unit PO DAILY [facility] Last Admin: 07/24/17 09:55 Dose: 1 unit Ibuprofen (Motrin Tab) 400 mg PO Q6H PRN PRN Reason: Pain, moderate (4-7) Last Admin: 07/23/17 20:42 Dose: 400 mg Insulin Human Lispro (Humalog Med) 0 units SC ACHS [facility] PRN Reason: Protocol Last Admin: 07/24/17 17:11 Dose: 3 units Methylprednisolone (Solu-Medrol) 30 mg IVP Q8H [facility] Last Admin: 07/24/17 13:25 Dose: 30 mg Multivitamins/Minerals (Therapeutic-M Tab) 1 tab PO 0800 [facility] Last Admin: 07/24/17 08:14 Dose: 1 tab Nystatin (Nystop Topical Powder) 1 gm TOP DAILY [facility] Last Admin: 07/24/17 09:56 Dose: 1 applic Pantoprazole Sodium (Protonix Ec Tab) 40 mg PO ACB [facility] Last Admin: 07/24/17 08:14 Dose: 40 mg Polyethylene Glycol (Miralax) 17 gm PO BID [facility] Last Admin: 07/24/17 17:09 Dose: 17 gm Zinc Sulfate (Zinc Sulfate 220 Mg Cap) 220 mg PO DAILY [facility] Last Admin: 07/24/17 09:54 Dose: 220 mg - Labs Labs: 07/23/17 06:30 07/23/17 06:30 PT 13.1 SECONDS (9.4-12.5) H 06/15/17 11:00 INR 1.19 (0.93-1.08) H 06/15/17 11:00 APTT 31.3 Seconds (25.1-36.5) 06/15/17 11:00 - Constitutional Appears: Non-toxic, No Acute Distress, Chronically Ill - Head Exam Head Exam: ATRAUMATIC, NORMOCEPHALIC - Eye Exam Eye Exam: EOMI, PERRL Pupil Exam: NORMAL ACCOMODATION, PERRL - ENT Exam ENT Exam: Mucous Membranes Moist, Normal External Ear Exam, TM's Normal Bilaterally - Neck Exam Neck Exam: Full ROM, Normal Inspection - Respiratory Exam Respiratory Exam: Clear to Ausculation Bilateral, NORMAL BREATHING PATTERN. absent: Rales, Rhonchi, Wheezes - Cardiovascular Exam Cardiovascular Exam: REGULAR RHYTHM, RRR, +S1, +S2 - GI/Abdominal Exam GI & Abdominal Exam: Soft, Normal Bowel Sounds. absent: Distended, Tenderness - Extremities Exam Extremities Exam: Full ROM, Normal Inspection - Neurological Exam Neurological Exam: Alert, Awake, CN II-XII Intact, Oriented x3 - Psychiatric Exam Psychiatric exam: Normal Affect, Normal Mood - Skin Skin Exam: Intact, Normal Color Assessment and Plan - Assessment and Plan (Free Text) Assessment: 67 yo female with multiple medical issues with PCN allergy diagnosed as a teenager verified by an [employer]. The patient with leukocytosis. Await cultures especially urine cultures. Diabetes and HTN history? Local wound care. Elevated ESR and C-reactive protein. Completed Vancomycin and Aztreonam for antibiotic coverage. UTI with E. coli sensitive to Azactam. Was on Vancomycin for cellulitis IV. For UTI for 5-7 days treatment... completed. Supportive care. Cellulitis appears improved. No new issues. Social issues currently. Homeless at this time. CT scan of chest done. No infiltrates seen. Afebrile the past 24 hours. Mild congestion noted in CT with small pulmonary effusions. No leukocytosis. Slightly elevated procalcitonin (0.66) which is undefined without stronger evidence for pneumonia. When encouraged, she is able to use the incentive spirometer without issues and ambulate with minimal difficulty. UTI with Klebsiella. Sensitive to Cipro. Was on Cipro for 5 day course at 500mg PO BID. Completed the antibiotic course. Stable currently. No new issues. Off antibiotics at this time. Multiple social issues. Chronic cough still. Thank you for allowing me to participate in the care of the patient, we will follow with you.
--- NOTE | 2017-07-24 20:08 | PN ---
DATE: 07/24/2017 SUBJECTIVE: The patient seen and examined at the bedside. She reports that her cough and shortness of breath has substantially improved. She still has some minor symptoms in this regard. PHYSICAL EXAMINATION: VITAL SIGNS: Temperature 98.6, blood pressure 189/101, heart rate 92, respiratory rate 18, oxygen saturation 100% on room air. HEENT: Head and neck atraumatic. LUNGS: Clear to auscultation bilaterally. HEART: Regular rate and rhythm. S1, S2 normal. ABDOMEN: Soft, distended (which is chronic that was discussed with Dr. Wood and Dr. Rodriguez who are primary hospitalist). The patient did have some bowel movements recently. MUSCULOSKELETAL: Some subacute inflammatory changes in both lower extremities, right more than left. There are arthritic changes in both upper extremities. Metacarpophalangeal joints are minimally tender on palpation. Proximal intraphalangeal joints are slightly tender on palpation as well. Metatarsophalangeal joints are minimally tender on palpation. SKIN: Erythematous right more than left in the lower extremities. PSYCHIATRIC: The patient is alert and oriented x3. NEUROLOGIC: The patient moves all extremities spontaneously. LABORATORY DATA: CCP, IgG more than 250. RAS positive at a titer of 180. ESR 76. WBC 10.3, hemoglobin 9.8, platelet count 421. MEDICATIONS: Fioricet, DuoNeb p.r.n., Brovana, Pulmicort, Colace, Feosol, heparin subcu, ibuprofen p.r.n., Solu-Medrol 30 mg IV q. 8 h, Protonix, Miralax, zinc. ASSESSMENT AND PLAN: This 67-year-old lady with newly diagnoses of rheumatoid arthritis and history of asthma who was followed up by pulmonary service for acute cough, which likely related to cough-variant asthma. Possibility of eosinophilic bronchitis cannot be ruled out. Upper or lower airway involvement due to yet untreated rheumatoid arthritis cannot be ruled out as well. The patient also received one dose of Lasix for some vascular congestion, observed on CAT scan of the chest and which potentially may have played a role in the patient's cough. After introduction of systemic steroids, the patient improved in terms of cough. At present time, I will start the patient on inhaled corticosteroids/LABA while continue tapering her steroids. The patient might need to be evaluated for initiation of methotrexate for rheumatoid arthritis. Better control of rheumatoid arthritis, may translate into better control of patient's pulmonary symptoms if those are indeed related to rheumatoid arthritis to some degree as well. We will continue target euvolemia, euglycemia and normothermia and oxygen saturation more than 90%. I will continue DVT and GI prophylaxis. Discussed with Dr. Rodriguez Bassem Love MD MTDD
[2017-07-24] MEDS: Budesonide 0.5 mg/2 ml Inhal Susp UD IH SCH (20:39)
[2017-07-24] MEDS: Arformoterol 15 mcg/2 ml Inh Sol IH SCH (20:39)
[2017-07-24] MEDS: guaiFENesin 100 mg/5 ml Syrup UD PO PRN (21:28)
[2017-07-25] MEDS: MethylPREDNISolone 40 mg Vial IVP SCH ×3 (05:14→21:09)
[2017-07-25] MEDS: Insulin Lispro (humaLOG) MEDIUM Coverage SC SCH ×3 (07:34→16:12)
[2017-07-25] MEDS: Arformoterol 15 mcg/2 ml Inh Sol IH SCH ×2 (08:22→20:05)
[2017-07-25] MEDS: Budesonide 0.5 mg/2 ml Inhal Susp UD IH SCH ×2 (08:22→20:05)
[2017-07-25] MEDS: Multivitamin With Minerals Tab PO SCH (09:10)
[2017-07-25] MEDS: Pantoprazole 40 mg EC Tab PO SCH (09:11)
[2017-07-25] MEDS: POLYETHYLENE GLYCOL 3350 17 GM/Dose PACKET PO SCH ×2 (09:11→17:06)
[2017-07-25] MEDS: Nystatin 100,000 Units/gm Topical Pow(15 gm) TOP SCH (09:11)
[2017-07-25] MEDS: VITAMIN C 500MG PO SCH (09:12)
[2017-07-25 11:49] LABS: BLOOD UREA NITROGEN 20 mg/dL (7-21); CALCIUM 8.1 mg/dL (8.4-10.5); GFR AFRICAN-AMERICAN > 60; GFR NON-AFRICAN AMERICAN > 60
[2017-07-25] MEDS ORDERED: Potassium Chloride 40 mEq/30 ml LIQ UD PO ONE (13:26)
--- NOTE | 2017-07-25 14:03 | CP.PCM.PN ---
Subjective - Date & Time of Evaluation Date of Evaluation: 07/25/17 Time of Evaluation: 13:45 - Subjective Subjective: Infectious Disease Follow Up: July 25, 2017 67 yo female presenting with 3 weeks of RLE ulceration, swelling and leaking from the wound as well as multiple falls in the past 3 weeks. The patient has an extensive medical history of asthma, arthritis, vitamin C deficiency, and possible thyroid disease. Draining RLE ulceration... cellulitis improved/resolved. Multiple chronic medical issues. Still with persistent dry cough. Otherwise stable. Mild erythema and excoriation of the folds in the abdomen and under the breasts. Fevers up to 100.8 F two nights ago. Patient making few complaints. The patient has remained in bed. Nursing and aides had noted that the patient's friend "Chris" has encouraged the patient to stay in bed in order to get to a [facility] or subacute facility. "Chris" was the person the patient was living with prior to coming to [facility]. Also noted that the patient has had a hacking cough the last couple of days. Afebrile for several days now. CT scan of chest done. CT shows mild vascular congestion and no infiltrates. UTI with Klebsiella earlier in hospitalization but had treatment with Cipro that is now completed. No additional issues. Social Issues. Off antibiotics now. No new significant complaints at this time. Vague abdominal pain complaints. Non-specific mild pain complaints. Objective - Vital Signs/Intake and Output Vital Signs (last 24 hours): Temp Pulse Resp BP Pulse Ox 98.6 F 91 H 20 147/88 95 07/25/17 07:30 07/25/17 07:30 07/25/17 07:30 07/25/17 11:36 07/25/17 07:30 Intake and Output: 07/25/17 07/25/17 06:59 18:59 Intake Total 600 Balance 600 - Medications Medications: Current Medications Acetaminophen/Butalbital/Caffeine (Fioricet) 1 tab PO Q4H PRN PRN Reason: Headache Last Admin: 07/20/17 21:04 Dose: 1 tab Albuterol/Ipratropium (Duoneb 3 Mg/0.5 Mg (3 Ml) Ud) 3 ml IH [id number] PRN PRN Reason: Shortness of Breath Last Admin: 07/15/17 00:51 Dose: 3 ml Arformoterol Tartrate (Brovana) 15 mcg IH [id number] [facility] Last Admin: 07/25/17 08:22 Dose: 15 mcg Benzonatate (Tessalon Perles) 100 mg PO TID [facility] Last Admin: 07/25/17 13:49 Dose: 100 mg Budesonide (Pulmicort Respules) 0.5 mg IH [id number] [facility] Last Admin: 07/25/17 08:22 Dose: 0.5 mg Docusate Sodium (Colace) 100 mg PO DAILY [facility] Last Admin: 07/25/17 09:11 Dose: Not Given Ferrous Sulfate (Feosol) 324 mg PO TID [facility] Last Admin: 07/25/17 13:49 Dose: 324 mg Guaifenesin (Robitussin) 100 mg PO Q4H PRN PRN Reason: Cough Last Admin: 07/24/17 21:28 Dose: 100 mg Heparin Sodium (Porcine) (Heparin) 5,000 units SC Q12 [facility] PRN Reason: Protocol Last Admin: 07/25/17 09:11 Dose: 5,000 units Home Med (Home Med) 1 unit PO DAILY [facility] Last Admin: 07/25/17 09:12 Dose: 1 unit Ibuprofen (Motrin Tab) 400 mg PO Q6H PRN PRN Reason: Pain, moderate (4-7) Last Admin: 07/23/17 20:42 Dose: 400 mg Insulin Human Lispro (Humalog Med) 0 units SC [facility] PRN Reason: Protocol Last Admin: 07/25/17 11:35 Dose: Not Given Lisinopril (Zestril) 5 mg PO DAILY [facility] Last Admin: 07/25/17 11:36 Dose: 5 mg Methylprednisolone (Solu-Medrol) 30 mg IVP Q8H [facility] Last Admin: 07/25/17 11:38 Dose: 30 mg Multivitamins/Minerals (Therapeutic-M Tab) 1 tab PO 0800 [facility] Last Admin: 07/25/17 09:10 Dose: 1 tab Nystatin (Nystop Topical Powder) 1 gm TOP DAILY [facility] Last Admin: 07/25/17 09:11 Dose: 1 applic Pantoprazole Sodium (Protonix Ec Tab) 40 mg PO ACB [facility] Last Admin: 07/25/17 09:11 Dose: 40 mg Polyethylene Glycol (Miralax) 17 gm PO BID [facility] Last Admin: 07/25/17 09:11 Dose: Not Given Zinc Sulfate (Zinc Sulfate 220 Mg Cap) 220 mg PO DAILY [facility] Last Admin: 07/25/17 09:10 Dose: 220 mg - Labs Labs: 07/23/17 06:30 07/25/17 10:26 PT 13.1 SECONDS (9.4-12.5) H 06/15/17 11:00 INR 1.19 (0.93-1.08) H 06/15/17 11:00 APTT 31.3 Seconds (25.1-36.5) 06/15/17 11:00 - Constitutional Appears: Non-toxic, No Acute Distress, Chronically Ill - Head Exam Head Exam: ATRAUMATIC, NORMOCEPHALIC - Eye Exam Eye Exam: EOMI, PERRL Pupil Exam: NORMAL ACCOMODATION, PERRL - ENT Exam ENT Exam: Mucous Membranes Moist, Normal External Ear Exam, TM's Normal Bilaterally - Neck Exam Neck Exam: Full ROM, Normal Inspection - Respiratory Exam Respiratory Exam: Clear to Ausculation Bilateral, NORMAL BREATHING PATTERN. absent: Rales, Rhonchi, Wheezes - Cardiovascular Exam Cardiovascular Exam: REGULAR RHYTHM, RRR, +S1, +S2 - GI/Abdominal Exam GI & Abdominal Exam: Soft, Normal Bowel Sounds. absent: Distended, Tenderness - Extremities Exam Extremities Exam: Full ROM, Normal Inspection - Neurological Exam Neurological Exam: Alert, Awake, CN II-XII Intact, Oriented x3 - Psychiatric Exam Psychiatric exam: Normal Affect, Normal Mood - Skin Skin Exam: Intact, Normal Color Assessment and Plan - Assessment and Plan (Free Text) Assessment: 67 yo female with multiple medical issues with PCN allergy diagnosed as a teenager verified by an [employer]. The patient with leukocytosis. Await cultures especially urine cultures. Diabetes and HTN history? Local wound care. Elevated ESR and C-reactive protein. Completed Vancomycin and Aztreonam for antibiotic coverage. UTI with E. coli sensitive to Azactam. Was on Vancomycin for cellulitis IV. For UTI for 5-7 days treatment... completed. Supportive care. Cellulitis appears improved. No new issues. Social issues currently. Homeless at this time. CT scan of chest done. No infiltrates seen. Afebrile the past 24 hours. Mild congestion noted in CT with small pulmonary effusions. No leukocytosis. Slightly elevated procalcitonin (0.66) which is undefined without stronger evidence for pneumonia. When encouraged, she is able to use the incentive spirometer without issues and ambulate with minimal difficulty. UTI with Klebsiella. Sensitive to Cipro. Was on Cipro for 5 day course at 500mg PO BID. Completed the antibiotic course. Stable currently. No new issues. Off antibiotics at this time. Multiple social issues. Chronic cough still. Complains of Vague mild general pains. Thank you for allowing me to participate in the care of the patient, we will follow with you.
[2017-07-25] MEDS ORDERED: MethylPREDNISolone 40 mg Vial IVP SCH (14:30)
--- NOTE | 2017-07-25 14:32 | CP.PCM.PN ---
<Melita Garcia - Last Filed: 07/25/17 14:28> Subjective - Date & Time of Evaluation Date of Evaluation: 07/25/17 Time of Evaluation: 14:29 - Subjective Subjective: Melita Garcia, PGY1, Medicine Progress Note for Dr Rodriguez: Patient seen and examined at bedside. No acute events overnight. Denies pain, fever, chills, nausea, vomiting, urinary symptoms, abdominal pain, leg swelling. Patient reports 1-2 formed BM yesterday. Along with Dr Rodriguez, patient was informed about her diagnosis of rheumatoid arthritis. Patient reports ongoing joint pain/inflammation for the past year. Objective - Vital Signs/Intake and Output Vital Signs (last 24 hours): Temp Pulse Resp BP Pulse Ox 98.6 F 91 H 20 147/88 95 07/25/17 07:30 07/25/17 07:30 07/25/17 07:30 07/25/17 11:36 07/25/17 07:30 Intake and Output: 07/25/17 07/25/17 06:59 18:59 Intake Total 600 Balance 600 - Medications Medications: Current Medications Acetaminophen/Butalbital/Caffeine (Fioricet) 1 tab PO Q4H PRN PRN Reason: Headache Last Admin: 07/20/17 21:04 Dose: 1 tab Albuterol/Ipratropium (Duoneb 3 Mg/0.5 Mg (3 Ml) Ud) 3 ml IH [id number] PRN PRN Reason: Shortness of Breath Last Admin: 07/15/17 00:51 Dose: 3 ml Arformoterol Tartrate (Brovana) 15 mcg IH [id number] [facility] Last Admin: 07/25/17 08:22 Dose: 15 mcg Benzonatate (Tessalon Perles) 100 mg PO TID [facility] Last Admin: 07/25/17 13:49 Dose: 100 mg Budesonide (Pulmicort Respules) 0.5 mg IH [id number] [facility] Last Admin: 07/25/17 08:22 Dose: 0.5 mg Docusate Sodium (Colace) 100 mg PO DAILY [facility] Last Admin: 07/25/17 09:11 Dose: Not Given Ferrous Sulfate (Feosol) 324 mg PO TID [facility] Last Admin: 07/25/17 13:49 Dose: 324 mg Guaifenesin (Robitussin) 100 mg PO Q4H PRN PRN Reason: Cough Last Admin: 07/24/17 21:28 Dose: 100 mg Heparin Sodium (Porcine) (Heparin) 5,000 units SC Q12 [facility] PRN Reason: Protocol Last Admin: 07/25/17 09:11 Dose: 5,000 units Home Med (Home Med) 1 unit PO DAILY [facility] Last Admin: 07/25/17 09:12 Dose: 1 unit Ibuprofen (Motrin Tab) 400 mg PO Q6H PRN PRN Reason: Pain, moderate (4-7) Last Admin: 07/23/17 20:42 Dose: 400 mg Insulin Human Lispro (Humalog Med) 0 units SC ACHS [facility] PRN Reason: Protocol Last Admin: 07/25/17 11:35 Dose: Not Given Lisinopril (Zestril) 5 mg PO DAILY [facility] Last Admin: 07/25/17 11:36 Dose: 5 mg Methylprednisolone (Solu-Medrol) 30 mg IVP Q8H [facility] Last Admin: 07/25/17 11:38 Dose: 30 mg Multivitamins/Minerals (Therapeutic-M Tab) 1 tab PO 0800 [facility] Last Admin: 07/25/17 09:10 Dose: 1 tab Nystatin (Nystop Topical Powder) 1 gm TOP DAILY [facility] Last Admin: 07/25/17 09:11 Dose: 1 applic Pantoprazole Sodium (Protonix Ec Tab) 40 mg PO ACB [facility] Last Admin: 07/25/17 09:11 Dose: 40 mg Polyethylene Glycol (Miralax) 17 gm PO BID [facility] Last Admin: 07/25/17 09:11 Dose: Not Given Zinc Sulfate (Zinc Sulfate 220 Mg Cap) 220 mg PO DAILY [facility] Last Admin: 07/25/17 09:10 Dose: 220 mg - Labs Labs: 07/23/17 06:30 07/25/17 10:26 PT 13.1 SECONDS (9.4-12.5) H 06/15/17 11:00 INR 1.19 (0.93-1.08) H 06/15/17 11:00 APTT 31.3 Seconds (25.1-36.5) 06/15/17 11:00 - Constitutional Appears: Non-toxic, No Acute Distress, Older Than Stated Age, Chronically Ill - Head Exam Head Exam: ATRAUMATIC, NORMOCEPHALIC - Eye Exam Eye Exam: EOMI, PERRL. absent: Conjunctival injection, Scleral icterus Pupil Exam: PERRL - ENT Exam ENT Exam: Mucous Membranes Moist - Neck Exam Neck Exam: Full ROM - Respiratory Exam Respiratory Exam: Clear to Ausculation Bilateral. absent: Accessory Muscle Use , Rhonchi, Wheezes, Respiratory Distress - Cardiovascular Exam Cardiovascular Exam: Tachycardia, +S1, +S2. absent: Murmur - GI/Abdominal Exam GI & Abdominal Exam: Soft, Normal Bowel Sounds. absent: Distended, Firm, Guarding, Rigid, Tenderness, Mass, Organomegaly, Rebound - Extremities Exam Extremities Exam: Pedal Edema (1+ pedal edema). absent: Calf Tenderness Additional comments: swan neck deformity of hands noted b/l - Back Exam Back Exam: NORMAL INSPECTION - Neurological Exam Neurological Exam: Alert, Awake, Oriented x3 - Psychiatric Exam Psychiatric exam: Normal Affect - Skin Skin Exam: Dry, Normal Color, Warm Assessment and Plan - Assessment and Plan (Free Text) Assessment: 67 year old female with past medical history of asthma, arthritis, anemia, and obesity, presented with right lower extremity cellulitis and UTI. Patient was found to have cultures positive for Proteus mirabilis and beta hemolytic strep, s/p completed IV course of Vancomycin and Azactam. Patient subsequently found to have Klebsiella UTI s/p adequate treatment with Ciprofloxacin. Patient's course was also complicated by fecal impaction, currently resolved. Pt also found to have intermittent dyspnea, workup revealing a diagnosis of rheumatoid arthritis. Patient is awaiting placement in [facility], pending approval for Medicaid. Plan: Newly diagnosed Rheumatoid Arthritis: - Currently on IV steroids, Motrin for pain control - C/w inhaled corticosteroids and LABA for dyspnea. - Since patient is not experiencing an acute rheumatoid exacerbation, patient can follow up with a drapery installer outpatient for further management ( Methotrexate). No rheumatology consult available in house. HTN: - Pt hypertensive on many episodes in hospital - No hx of htn. - No acute pain currently. Patient's BP 189/107->159/54. - Started on Lisinopril 5 mg PO daily. - Cont to monitor. Abdominal Distension, resolved: - likely 2/2 Constipation/fecal impaction - CT Abdomen Pelvis with PO and IV Contrast (07/18): Interstitial and airspace disease in the lung bases; mild cardiomegaly and atherosclerotic disease; fatty liver; gallstones; possible pyelonephritis; mild ileus, no obstruction; constipation with fecal impaction -Improved with bowel regimen: Miralax bid and daily colace. -Cont to monitor. Hyperglycemia: 2/2 likely steroid induced - ISS, will taper off steroids. - Tapered to Solumedrol 20 mg IV q8h SOB/cough (improved): -Likely 2/2 to Asthma Exacerbation vs URI vs RA induced pulmonary fibrosis. -Cont with [facility] Q6H -Pulm consult added 07/18/17: Dr. Love, Recs Appreciated -Tapered Solu-medrol to 20 Q8 -C/w inhaled corticosteroids and LABA -RAS positive, titer 1:80, CCP IgG >250 -> Newly diagnosed RA. -RF - PENDING -BNP 397 - CXR showed no infiltrates. cardiomegaly. -CT Chest on 07/04/17: shows Mildly enlarged axillary lymph nodes and moderate cardiomegaly and mild vascular congestion -ESR (07/22): 76 - Tessalon pereles, Robitussin, and Mucinex for cough - Tylenol prn for fevers Hypokalemia: - K 3.2 today, repleted. - Cont to monitor Headache - Continue fioricet PRN Normocytic anemia - Hemoglobin stable - Monitor daily GI/DVT ppx: Heparin, Protonix Dispo: Patient awaiting placement in [facility]. Per IRIS note on , 4 people are ahead of her in line with Medicaid. Per IRIS note on 07/21 "iris spoke with major case detective sabiha fitzpatrick at [phone] ext [phone]. iris was advised that patient is $5000 over the medicaied limit and needs to spend those assets down. once she is at the threshold of $2000 medicaid will start paying august 02. iris placed call to brigette [phone] and left a message requesting a call back , iris provided contact information." Patient seen and discussed with Dr Rodriguez. Melita Garcia, PGY-1 <Juan Rodriguez - Last Filed: 07/25/17 16:31> Objective - Vital Signs/Intake and Output Vital Signs (last 24 hours): Temp Pulse Resp BP Pulse Ox 98.6 F 91 H 20 147/88 95 07/25/17 07:30 07/25/17 07:30 07/25/17 07:30 07/25/17 11:36 07/25/17 07:30 Intake and Output: 07/25/17 07/25/17 06:59 18:59 Intake Total 600 Balance 600 - Medications Medications: Current Medications Acetaminophen/Butalbital/Caffeine (Fioricet) 1 tab PO Q4H PRN PRN Reason: Headache Last Admin: 07/20/17 21:04 Dose: 1 tab Albuterol/Ipratropium (Duoneb 3 Mg/0.5 Mg (3 Ml) Ud) 3 ml IH [id number] PRN PRN Reason: Shortness of Breath Last Admin: 07/15/17 00:51 Dose: 3 ml Arformoterol Tartrate (Brovana) 15 mcg IH [id number] [facility] Last Admin: 07/25/17 08:22 Dose: 15 mcg Benzonatate (Tessalon Perles) 100 mg PO TID [facility] Last Admin: 07/25/17 13:49 Dose: 100 mg Budesonide (Pulmicort Respules) 0.5 mg IH [id number] [facility] Last Admin: 07/25/17 08:22 Dose: 0.5 mg Docusate Sodium (Colace) 100 mg PO DAILY [facility] Last Admin: 07/25/17 09:11 Dose: Not Given Ferrous Sulfate (Feosol) 324 mg PO TID [facility] Last Admin: 07/25/17 13:49 Dose: 324 mg Guaifenesin (Robitussin) 100 mg PO Q4H PRN PRN Reason: Cough Last Admin: 07/24/17 21:28 Dose: 100 mg Heparin Sodium (Porcine) (Heparin) 5,000 units SC Q12 [facility] PRN Reason: Protocol Last Admin: 07/25/17 09:11 Dose: 5,000 units Home Med (Home Med) 1 unit PO DAILY [facility] Last Admin: 07/25/17 09:12 Dose: 1 unit Ibuprofen (Motrin Tab) 400 mg PO Q6H PRN PRN Reason: Pain, moderate (4-7) Last Admin: 07/23/17 20:42 Dose: 400 mg Insulin Human Lispro (Humalog Med) 0 units SC ACHS [facility] PRN Reason: Protocol Last Admin: 07/25/17 16:12 Dose: Not Given Lisinopril (Zestril) 5 mg PO DAILY [facility] Last Admin: 07/25/17 11:36 Dose: 5 mg Methylprednisolone (Solu-Medrol) 20 mg IVP Q8 [facility] Multivitamins/Minerals (Therapeutic-M Tab) 1 tab PO 0800 [facility] Last Admin: 07/25/17 09:10 Dose: 1 tab Nystatin (Nystop Topical Powder) 1 gm TOP DAILY [facility] Last Admin: 07/25/17 09:11 Dose: 1 applic Pantoprazole Sodium (Protonix Ec Tab) 40 mg PO ACB [facility] Last Admin: 07/25/17 09:11 Dose: 40 mg Polyethylene Glycol (Miralax) 17 gm PO BID [facility] Last Admin: 07/25/17 09:11 Dose: Not Given Zinc Sulfate (Zinc Sulfate 220 Mg Cap) 220 mg PO DAILY [facility] Last Admin: 07/25/17 09:10 Dose: 220 mg - Labs Labs: 07/23/17 06:30 07/25/17 10:26 PT 13.1 SECONDS (9.4-12.5) H 06/15/17 11:00 INR 1.19 (0.93-1.08) H 06/15/17 11:00 APTT 31.3 Seconds (25.1-36.5) 06/15/17 11:00 Attending/Attestation - Attestation I have personally seen and examined this patient.: Yes I have fully participated in the care of the patient.: Yes I have reviewed all pertinent clinical information, including history, physical exam and plan: Yes Notes (Text): 07/25/17 16:31 67 year old female with past medical history of asthma, arthritis and anemia who presented with right lower extremity cellulitis and UTI s/p antibiotics. CT abd/pelvis showed mild ileus, constipation with fecal impaction. She is on colace and miralax for constipation and reports having BMs. Pulmonary is following for complaint of cough and intermittent dyspnea. She is currently on iv steroids, duonebs and robitussin and reports improvement. CCP level is elevated. RAS +. RF pending. Possible rheumatoid arthritis. She is on steroids as above. Recommend outpatient rheumatology evaluation. Lisinopril is added for hypertension. She is currently awaiting TED placement. Juan Rodriguez MD Hospitalist.
--- NOTE | 2017-07-25 18:56 | PN ---
DATE: 07/25/2017 SUBJECTIVE: The patient seen and examined at bedside. She reports that her cough has gone. PHYSICAL EXAMINATION: VITAL SIGNS: Temperature 98.6, blood pressure 147/88, heart rate 91, respiratory rate 20, oxygen saturation 95% on room air. HEENT: Head and neck atraumatic. LUNGS: Clear to auscultation bilaterally. HEART: Regular rate and rhythm. S1 and S2 normal. ABDOMEN: Soft, distended, but nontender. MUSCULOSKELETAL: Acute on chronic cellulitic changes, right more than left in the lower extremities. SKIN: Erythematous on the right side. PSYCHIATRIC: The patient is alert, awake, and oriented x3. LABORATORY DATA: WBC 10.3, hemoglobin 9.8, platelet count 421. Sodium 140, potassium 3.2, chloride 96, carbon dioxide 34, BUN 20, creatinine 0.8, glucose 163. Rheumatoid factor is still pending. MEDICATIONS: DuoNeb p.r.n., Brovana, Pulmicort, Tessalon, Colace, ferrous sulfate, Robitussin p.r.n., heparin subcutaneous, ibuprofen p.r.n., Zestril, Solu-Medrol 30 mg IV q.8, nystatin, Protonix, MiraLax, and potassium supplementation. ASSESSMENT AND PLAN: This is a 67-year-old lady with likely asthma-induced cough, who is substantially improved in terms of her pulmonary complaints. At the present time, she is on inhaled corticosteroids and long-acting beta-2 agonist inhalers. I will continue to taper down her systemic steroids. We will continue to target euvolemia, euglycemia, normothermia, and oxygen saturation more than 90%. We will continue with DVT and GI prophylaxis. Bassem Love MD [facility]
[2017-07-25] MEDS: guaiFENesin 100 mg/5 ml Syrup UD PO PRN (20:13)
[2017-07-26 07:44] LABS: BLOOD UREA NITROGEN 21 mg/dL (7-21); CALCIUM 8.1 mg/dL (8.4-10.5); GFR AFRICAN-AMERICAN > 60; GFR NON-AFRICAN AMERICAN > 60
[2017-07-26] MEDS: Arformoterol 15 mcg/2 ml Inh Sol IH SCH ×2 (08:02→20:52)
[2017-07-26] MEDS: Budesonide 0.5 mg/2 ml Inhal Susp UD IH SCH ×2 (08:02→20:52)
[2017-07-26] MEDS: Pantoprazole 40 mg EC Tab PO SCH (08:23)
[2017-07-26] MEDS: Multivitamin With Minerals Tab PO SCH (08:23)
[2017-07-26] MEDS: Insulin Lispro (humaLOG) MEDIUM Coverage SC SCH ×4 (08:24→22:45)
[2017-07-26] MEDS ORDERED: Potassium Chloride 10 mEq ER Tab PO STA ×2 (08:28→08:29)
[2017-07-26] MEDS ORDERED: Potassium Chloride 20 mEq ER Tab PO STA ×2 (08:33)
[2017-07-26] MEDS: POLYETHYLENE GLYCOL 3350 17 GM/Dose PACKET PO SCH ×2 (09:27→17:23)
[2017-07-26] MEDS: VITAMIN C 500MG PO SCH (09:27)
[2017-07-26] MEDS: Nystatin 100,000 Units/gm Topical Pow(15 gm) TOP SCH (09:28)
[2017-07-26] MEDS ORDERED: Potassium Chloride 20 mEq ER Tab PO ONE (14:00)
[2017-07-26] MEDS: MethylPREDNISolone 40 mg Vial IVP SCH (14:25)
--- NOTE | 2017-07-26 15:20 | CP.PCM.PN ---
<Melita Garcia - Last Filed: 07/26/17 15:17> Subjective - Date & Time of Evaluation Date of Evaluation: 07/26/17 Time of Evaluation: 15:17 - Subjective Subjective: Melita Garcia, PGY1, Medicine Progress Note for Dr Liriano: Patient seen and examined at beside. No acute events overnight. C/o mild dry cough (better with duonebs and brovana). Denies pain, fever, chills, nausea, vomiting, urinary symptoms, abdominal pain, leg swelling. Patient reports 1-2 loose BM yesterday. Objective - Vital Signs/Intake and Output Vital Signs (last 24 hours): Temp Pulse Resp BP Pulse Ox 98.3 F 73 20 155/82 H 94 L 07/26/17 08:00 07/26/17 09:29 07/26/17 08:00 07/26/17 09:29 07/26/17 08:00 Intake and Output: 07/26/17 07/26/17 06:59 18:59 Intake Total 240 780 Balance 240 780 - Medications Medications: Current Medications Acetaminophen/Butalbital/Caffeine (Fioricet) 1 tab PO Q4H PRN PRN Reason: Headache Last Admin: 07/20/17 21:04 Dose: 1 tab Albuterol/Ipratropium (Duoneb 3 Mg/0.5 Mg (3 Ml) Ud) 3 ml IH [id number] PRN PRN Reason: Shortness of Breath Last Admin: 07/15/17 00:51 Dose: 3 ml Arformoterol Tartrate (Brovana) 15 mcg IH [id number] [facility] Last Admin: 07/26/17 08:02 Dose: 15 mcg Benzonatate (Tessalon Perles) 100 mg PO TID [facility] Last Admin: 07/26/17 14:31 Dose: 100 mg Budesonide (Pulmicort Respules) 0.5 mg IH [id number] [facility] Last Admin: 07/26/17 08:02 Dose: 0.5 mg Docusate Sodium (Colace) 100 mg PO DAILY [facility] Last Admin: 07/26/17 09:26 Dose: Not Given Ferrous Sulfate (Feosol) 324 mg PO TID [facility] Last Admin: 07/26/17 14:27 Dose: 324 mg Guaifenesin (Robitussin) 100 mg PO Q4H PRN PRN Reason: Cough Last Admin: 07/25/17 20:13 Dose: 100 mg Heparin Sodium (Porcine) (Heparin) 5,000 units SC Q12 [facility] PRN Reason: Protocol Last Admin: 07/26/17 09:26 Dose: 5,000 units Home Med (Home Med) 1 unit PO DAILY [facility] Last Admin: 07/26/17 09:27 Dose: 1 unit Ibuprofen (Motrin Tab) 400 mg PO Q6H PRN PRN Reason: Pain, moderate (4-7) Last Admin: 07/25/17 17:05 Dose: 400 mg Insulin Human Lispro (Humalog Med) 0 units SC ACHS [facility] PRN Reason: Protocol Last Admin: 07/26/17 12:09 Dose: 1 units Lisinopril (Zestril) 5 mg PO DAILY [facility] Last Admin: 07/26/17 09:29 Dose: 5 mg Methylprednisolone (Solu-Medrol) 20 mg IVP Q8 [facility] Last Admin: 07/26/17 14:25 Dose: 20 mg Multivitamins/Minerals (Therapeutic-M Tab) 1 tab PO 0800 [facility] Last Admin: 07/26/17 08:23 Dose: 1 tab Nystatin (Nystop Topical Powder) 1 gm TOP DAILY [facility] Last Admin: 07/26/17 09:28 Dose: 1 applic Pantoprazole Sodium (Protonix Ec Tab) 40 mg PO ACB [facility] Last Admin: 07/26/17 08:23 Dose: 40 mg Polyethylene Glycol (Miralax) 17 gm PO BID [facility] Last Admin: 07/26/17 09:27 Dose: Not Given Zinc Sulfate (Zinc Sulfate 220 Mg Cap) 220 mg PO DAILY [facility] Last Admin: 07/26/17 09:29 Dose: 220 mg - Labs Labs: 07/23/17 06:30 07/26/17 07:00 PT 13.1 SECONDS (9.4-12.5) H 06/15/17 11:00 INR 1.19 (0.93-1.08) H 06/15/17 11:00 APTT 31.3 Seconds (25.1-36.5) 06/15/17 11:00 - Additional Findings Additional findings: - Constitutional Appears: Non-toxic, No Acute Distress, Older Than Stated Age, Chronically Ill - Head Exam Head Exam: ATRAUMATIC, NORMOCEPHALIC - Eye Exam Eye Exam: EOMI, PERRL. absent: Conjunctival injection, Scleral icterus Pupil Exam: PERRL - ENT Exam ENT Exam: Mucous Membranes Moist. No oral thrust noted. - Neck Exam Neck Exam: Full ROM - Respiratory Exam Respiratory Exam: Clear to Ausculation Bilateral. absent: Accessory Muscle Use , Rhonchi, Wheezes, Respiratory Distress - Cardiovascular Exam Cardiovascular Exam: Tachycardia, +S1, +S2. absent: Murmur - GI/Abdominal Exam GI & Abdominal Exam: Soft, Normal Bowel Sounds. absent: Distended, Firm, Guarding, Rigid, Tenderness, Mass, Organomegaly, Rebound - Extremities Exam Extremities Exam: Pedal Edema (1+ pedal edema). absent: Calf Tenderness Additional comments: swan neck deformity of hands noted b/l - Back Exam Back Exam: NORMAL INSPECTION - Neurological Exam Neurological Exam: Alert, Awake, Oriented x3 - Psychiatric Exam Psychiatric exam: Normal Affect - Skin Skin Exam: Dry, Normal Color, Warm Assessment and Plan - Assessment and Plan (Free Text) Assessment: 67 year old female with past medical history of asthma, arthritis, anemia, and obesity, presented with right lower extremity cellulitis and UTI. Patient was found to have cultures positive for Proteus mirabilis and beta hemolytic strep, s/p completed IV course of Vancomycin and Azactam. Patient subsequently found to have Klebsiella UTI s/p adequate treatment with Ciprofloxacin. Patient's course was also complicated by fecal impaction, currently resolved. Pt also found to have intermittent dyspnea, workup revealing a diagnosis of rheumatoid arthritis. Patient is awaiting placement in [facility], pending approval for Medicaid. Plan: Newly diagnosed Rheumatoid Arthritis: - Currently on IV steroids, Motrin for pain control - C/w inhaled corticosteroids and LABA for dyspnea. - Since patient is not experiencing an acute rheumatoid exacerbation, patient can follow up with a wildlife enforcement major outpatient for further management ( Methotrexate). No rheumatology consult available in house. HTN: - Pt hypertensive on many episodes in hospital - No hx of htn. - C/w Lisinopril 5 mg PO daily. - Cont to monitor. Abdominal Distension, resolved: - likely 2/2 Constipation/fecal impaction - CT Abdomen Pelvis with PO and IV Contrast (07/18): Interstitial and airspace disease in the lung bases; mild cardiomegaly and atherosclerotic disease; fatty liver; gallstones; possible pyelonephritis; mild ileus, no obstruction; constipation with fecal impaction -Improved with bowel regimen: Miralax bid and daily colace. -Cont to monitor. Hyperglycemia: 2/2 likely steroid induced - ISS, will taper off steroids. - Tapered to Solumedrol 20 mg IV q8h SOB/cough (improved): -Likely 2/2 to Asthma Exacerbation vs URI vs RA induced pulmonary fibrosis. -Cont with [facility] Q6H -Pulm consult added 07/18/17: Dr. Love, Recs Appreciated -Tapered Solu-medrol to 20 Q8 -C/w inhaled corticosteroids and LABA -RAS positive, titer 1:80, CCP IgG >250 -> Newly diagnosed RA. -RF - PENDING -BNP 397 - CXR showed no infiltrates. cardiomegaly. -CT Chest on 07/04/17: shows Mildly enlarged axillary lymph nodes and moderate cardiomegaly and mild vascular congestion -ESR (07/22): 76 - Tessalon pereles, Robitussin, and Mucinex for cough - Tylenol prn for fevers Hypokalemia: - K 3.0 today, repleted. - Cont to monitor Headache - Continue fioricet PRN Normocytic anemia - Hemoglobin stable - Monitor daily GI/DVT ppx: Heparin, Protonix Dispo: Patient awaiting placement in [facility]. Per IRIS note on , 4 people are ahead of her in line with Medicaid. Per IRIS note on 07/21 "iris spoke with patient case manager sabiha fitzpatrick at [phone] ext [phone]. iris was advised that patient is $5000 over the medicaied limit and needs to spend those assets down. once she is at the threshold of $2000 medicaid will start paying august 02. iris placed call to brigette [phone] and left a message requesting a call back , iris provided contact information." Patient seen and discussed with Dr Rodriguez. Melita Garcia, PGY-1 <Max Liriano - Last Filed: 07/27/17 12:25> Objective - Vital Signs/Intake and Output Vital Signs (last 24 hours): Temp Pulse Resp BP Pulse Ox 97.8 F 84 22 135/72 94 L 07/27/17 07:30 07/27/17 09:44 07/27/17 07:30 07/27/17 09:44 07/27/17 07:30 Intake and Output: 07/27/17 07/27/17 06:59 18:59 Intake Total 797 Balance 797 - Medications Medications: Current Medications Acetaminophen/Butalbital/Caffeine (Fioricet) 1 tab PO Q4H PRN PRN Reason: Headache Last Admin: 07/20/17 21:04 Dose: 1 tab Albuterol/Ipratropium (Duoneb 3 Mg/0.5 Mg (3 Ml) Ud) 3 ml IH [id number] PRN PRN Reason: Shortness of Breath Last Admin: 07/15/17 00:51 Dose: 3 ml Arformoterol Tartrate (Brovana) 15 mcg IH [id number] [facility] Last Admin: 07/26/17 20:52 Dose: 15 mcg Benzonatate (Tessalon Perles) 100 mg PO TID [facility] Last Admin: 07/27/17 09:44 Dose: 100 mg Budesonide (Pulmicort Respules) 0.5 mg IH [id number] [facility] Last Admin: 07/26/17 20:52 Dose: 0.5 mg Docusate Sodium (Colace) 100 mg PO DAILY [facility] Last Admin: 07/27/17 09:44 Dose: 100 mg Ferrous Sulfate (Feosol) 324 mg PO TID [facility] Last Admin: 07/27/17 09:44 Dose: 324 mg Guaifenesin (Robitussin) 100 mg PO Q4H PRN PRN Reason: Cough Last Admin: 07/27/17 03:43 Dose: 100 mg Heparin Sodium (Porcine) (Heparin) 5,000 units SC Q12 [facility] PRN Reason: Protocol Last Admin: 07/27/17 09:44 Dose: 5,000 units Home Med (Home Med) 1 unit PO DAILY [facility] Last Admin: 07/27/17 09:44 Dose: 1 unit Potassium Chloride (Potassium Chloride 10 Meq/100 Ml) 10 meq in 100 mls @ 50 mls/hr IVPB Q1 [facility] Stop: 07/29/17 09:44 Last Admin: 07/27/17 10:12 Dose: 50 mls/hr Ibuprofen (Motrin Tab) 400 mg PO Q6H PRN PRN Reason: Pain, moderate (4-7) Last Admin: 07/25/17 17:05 Dose: 400 mg Insulin Human Lispro (Humalog Med) 0 units SC ACHS [facility] PRN Reason: Protocol Last Admin: 07/27/17 08:26 Dose: Not Given Lisinopril (Zestril) 5 mg PO DAILY [facility] Last Admin: 07/27/17 09:44 Dose: 5 mg Methylprednisolone (Solu-Medrol) 20 mg IVP Q12H [facility] Multivitamins/Minerals (Therapeutic-M Tab) 1 tab PO 0800 [facility] Last Admin: 07/27/17 08:25 Dose: 1 tab Nystatin (Nystop Topical Powder) 1 gm TOP DAILY [facility] Last Admin: 07/27/17 10:12 Dose: 1 applic Pantoprazole Sodium (Protonix Ec Tab) 40 mg PO ACB [facility] Last Admin: 07/27/17 08:25 Dose: 40 mg Polyethylene Glycol (Miralax) 17 gm PO BID [facility] Last Admin: 07/27/17 09:47 Dose: 17 gm Zinc Sulfate (Zinc Sulfate 220 Mg Cap) 220 mg PO DAILY [facility] Last Admin: 07/27/17 09:44 Dose: 220 mg - Labs Labs: 07/27/17 07:30 07/27/17 11:30 PT 13.1 SECONDS (9.4-12.5) H 06/15/17 11:00 INR 1.19 (0.93-1.08) H 06/15/17 11:00 APTT 31.3 Seconds (25.1-36.5) 06/15/17 11:00 Attending/Attestation - Attestation I have personally seen and examined this patient.: Yes I have fully participated in the care of the patient.: Yes I have reviewed all pertinent clinical information, including history, physical exam and plan: Yes Notes (Text): 07/27/17 12:21 Patient was seen and examined with resident medical officer. 67 F with PMH of asthma, arthritis and anemia who presented with right lower extremity cellulitis and UTI , she is s/p antibiotics, currently off antibiotics. CT abdomen and Pelvis showed mild ileus, constipation with fecal impaction which is resolved with stool softener. COPD is improving,on Nebs and IV steroid, can be changed to oral Prednisone. CRP level is elevated. RAS +. RF pending. Possible rheumatoid arthritis as she has bone deformities, denies any joint pain today. Hypokalemia, will repalce electrolye and follow up potassium level.
[2017-07-26] MEDS ORDERED: MethylPREDNISolone 40 mg Vial IVP SCH (15:30)
--- NOTE | 2017-07-26 16:42 | CP.PCM.PN ---
Subjective - Date & Time of Evaluation Date of Evaluation: 07/26/17 Time of Evaluation: 16:15 - Subjective Subjective: Infectious Disease Follow Up: July 26, 2017 67 yo female presenting with 3 weeks of RLE ulceration, swelling and leaking from the wound as well as multiple falls in the past 3 weeks. The patient has an extensive medical history of asthma, arthritis, vitamin C deficiency, and possible thyroid disease. Draining RLE ulceration... cellulitis improved/resolved. Multiple chronic medical issues. Still with persistent dry cough. Otherwise stable. Mild erythema and excoriation of the folds in the abdomen and under the breasts. Fevers up to 100.8 F two nights ago. Patient making few complaints. The patient has remained in bed. Nursing and aides had noted that the patient's friend "Chris" has encouraged the patient to stay in bed in order to get to a fpc or subacute facility. "Chris" was the person the patient was living with [place] [facility] [place] Also noted that the patient has had a hacking cough the last couple of days. Afebrile for several days now. CT scan of chest done. CT shows mild vascular congestion and no infiltrates. UTI with Klebsiella earlier in hospitalization but had treatment with Cipro that is now completed. No additional issues. Social Issues. Off antibiotics now. No new significant complaints at this time. Vague abdominal pain complaints. Non-specific mild pain complaints. Objective - Vital Signs/Intake and Output Vital Signs (last 24 hours): Temp Pulse Resp BP Pulse Ox 98.3 F 73 20 155/82 H 94 L 07/26/17 08:00 07/26/17 09:29 07/26/17 08:00 07/26/17 09:29 07/26/17 08:00 Intake and Output: 07/26/17 07/26/17 06:59 18:59 Intake Total 240 780 Balance 240 780 - Medications Medications: Current Medications Acetaminophen/Butalbital/Caffeine (Fioricet) 1 tab PO Q4H PRN PRN Reason: Headache Last Admin: 07/20/17 21:04 Dose: 1 tab Albuterol/Ipratropium (Duoneb 3 Mg/0.5 Mg (3 Ml) Ud) 3 ml IH [id number] PRN PRN Reason: Shortness of Breath Last Admin: 07/15/17 00:51 Dose: 3 ml Arformoterol Tartrate (Brovana) 15 mcg IH [id number] [facility] Last Admin: 07/26/17 08:02 Dose: 15 mcg Benzonatate (Tessalon Perles) 100 mg PO TID [facility] Last Admin: 07/26/17 14:31 Dose: 100 mg Budesonide (Pulmicort Respules) 0.5 mg IH [id number] [facility] Last Admin: 07/26/17 08:02 Dose: 0.5 mg Docusate Sodium (Colace) 100 mg PO DAILY [facility] Last Admin: 07/26/17 09:26 Dose: Not Given Ferrous Sulfate (Feosol) 324 mg PO TID [facility] Last Admin: 07/26/17 14:27 Dose: 324 mg Guaifenesin (Robitussin) 100 mg PO Q4H PRN PRN Reason: Cough Last Admin: 07/25/17 20:13 Dose: 100 mg Heparin Sodium (Porcine) (Heparin) 5,000 units SC Q12 [facility] PRN Reason: Protocol Last Admin: 07/26/17 09:26 Dose: 5,000 units Home Med (Home Med) 1 unit PO DAILY [facility] Last Admin: 07/26/17 09:27 Dose: 1 unit Ibuprofen (Motrin Tab) 400 mg PO Q6H PRN PRN Reason: Pain, moderate (4-7) Last Admin: 07/25/17 17:05 Dose: 400 mg Insulin Human Lispro (Humalog Med) 0 units SC ACHS [facility] PRN Reason: Protocol Last Admin: 07/26/17 12:09 Dose: 1 units Lisinopril (Zestril) 5 mg PO DAILY [facility] Last Admin: 07/26/17 09:29 Dose: 5 mg Methylprednisolone (Solu-Medrol) 20 mg IVP Q12H [facility] Multivitamins/Minerals (Therapeutic-M Tab) 1 tab PO 0800 [facility] Last Admin: 07/26/17 08:23 Dose: 1 tab Nystatin (Nystop Topical Powder) 1 gm TOP DAILY [facility] Last Admin: 07/26/17 09:28 Dose: 1 applic Pantoprazole Sodium (Protonix Ec Tab) 40 mg PO ACB [facility] Last Admin: 07/26/17 08:23 Dose: 40 mg Polyethylene Glycol (Miralax) 17 gm PO BID [facility] Last Admin: 07/26/17 09:27 Dose: Not Given Zinc Sulfate (Zinc Sulfate 220 Mg Cap) 220 mg PO DAILY [facility] Last Admin: 07/26/17 09:29 Dose: 220 mg - Labs Labs: 07/23/17 06:30 07/26/17 07:00 PT 13.1 SECONDS (9.4-12.5) H 06/15/17 11:00 INR 1.19 (0.93-1.08) H 06/15/17 11:00 APTT 31.3 Seconds (25.1-36.5) 06/15/17 11:00 - Constitutional Appears: Non-toxic, No Acute Distress, Chronically Ill - Head Exam Head Exam: ATRAUMATIC, NORMOCEPHALIC - Eye Exam Eye Exam: EOMI, PERRL Pupil Exam: NORMAL ACCOMODATION, PERRL - ENT Exam ENT Exam: Mucous Membranes Moist, Normal External Ear Exam, TM's Normal Bilaterally - Neck Exam Neck Exam: Full ROM, Normal Inspection - Respiratory Exam Respiratory Exam: Clear to Ausculation Bilateral, NORMAL BREATHING PATTERN. absent: Rales, Rhonchi, Wheezes - Cardiovascular Exam Cardiovascular Exam: REGULAR RHYTHM, RRR, +S1, +S2 - GI/Abdominal Exam GI & Abdominal Exam: Soft, Normal Bowel Sounds. absent: Distended, Tenderness - Extremities Exam Extremities Exam: Full ROM, Normal Inspection - Neurological Exam Neurological Exam: Alert, Awake, CN II-XII Intact, Oriented x3 - Psychiatric Exam Psychiatric exam: Normal Affect, Normal Mood - Skin Skin Exam: Intact, Normal Color Assessment and Plan - Assessment and Plan (Free Text) Assessment: 67 yo female with multiple medical issues with PCN allergy diagnosed as a teenager verified by an Cloth Picker. The patient with leukocytosis. Await cultures especially urine cultures. Diabetes and HTN history? Local wound care. Elevated ESR and C-reactive protein. Completed Vancomycin and Aztreonam for antibiotic coverage. UTI with E. coli sensitive to Azactam. Was on Vancomycin for cellulitis IV. For UTI for 5-7 days treatment... completed. Supportive care. Cellulitis appears improved. No new issues. Social issues currently. Homeless at this time. CT scan of chest done. No infiltrates seen. Afebrile the past 24 hours. Mild congestion noted in CT with small pulmonary effusions. No leukocytosis. Slightly elevated procalcitonin (0.66) which is undefined without stronger evidence for pneumonia. When encouraged, she is able to use the incentive spirometer without issues and ambulate with minimal difficulty. UTI with Klebsiella. Sensitive to Cipro. Was on Cipro for 5 day course at 500mg PO BID. Completed the antibiotic course. Stable currently. No new issues. Off antibiotics at this time. Multiple social issues. Chronic cough still. Complains of Vague mild general pains. Awaiting placement. Thank you for allowing me to participate in the care of the patient, we will follow with you.
--- NOTE | 2017-07-26 19:37 | PN ---
DATE OF SERVICE: 07/26/2017 SUBJECTIVE: The patient is seen and examined at bedside. She is comfortable. She is sitting in the chair. Her cough is substantially improved. OBJECTIVE: VITAL SIGNS: Temperature 98.3, blood pressure 155/82, heart rate 73, respiratory 20, oxygen saturation 94% on room air. HEENT: Head and neck atraumatic. LUNGS: Clear to auscultation bilaterally. HEART: Regular rate and rhythm. S1 and S2 are normal. ABDOMEN: Soft, nontender, but chronically distended. MUSCULOSKELETAL: Consistent with diagnosis of rheumatoid arthritis. SKIN: Moist. PSYCHIATRIC: The patient is alert and oriented x3, comfortable. LABORATORY DATA: WBC 10.3, hemoglobin 9.8, platelet count 421, sodium 140, potassium 3 (supplemented), chloride 96, carbon dioxide 38, BUN 21, creatinine 0.7, glucose 159. MEDICATIONS: Tylenol p.r.n., DuoNeb p.r.n., Brovana, Tessalon, Pulmicort, Colace, heparin subcutaneous, Robitussin, ibuprofen p.r.n., regular insulin sliding scale medium protocol, lisinopril, Solu-Medrol 20 mg IV q.12 (tapered down from 20 mg IV q.8), nystatin daily, MiraLax, potassium supplementation, zinc. ASSESSMENT AND PLAN: This is a 67-year-old lady with multiple medical problems who has been followed up by Pulmonary Service for cough variant asthma. At present time, the patient's symptoms substantially improved. She is on ICS/LABA and systemic steroid taper. No signs of bronchospasm. We will continue to taper steroids. We will continue to target euvolemia, euglycemia, normothermia and oxygen saturation more than 90%. Bassem Love MD
[2017-07-27] MEDS: guaiFENesin 100 mg/5 ml Syrup UD PO PRN ×2 (03:43→14:15)
[2017-07-27 07:32] LABS: BLOOD UREA NITROGEN 31 mg/dL (7-21); GFR AFRICAN-AMERICAN > 60; GFR NON-AFRICAN AMERICAN > 60
[2017-07-27] MEDS ORDERED: Potassium Chloride 20 mEq ER Tab PO ONE ×2 (07:41→12:57)
[2017-07-27 07:42] LABS: BASO # 0.01 K/mm3 (0.0-2.0); BASO % 0.1 % (0.0-3.0); EOS # 0.5 (0.0-0.7); EOS % 3.4 % (1.5-5.0); GRAN # 9.92 (1.4-6.5); GRAN % 67.7 % (50.0-68.0); HEMOGLOBIN 10.4 g/dL (12.0-16.0); LYMPH # 2.7 (1.2-3.4); LYMPH % 18.3 % (22.0-35.0); MEAN CELL VOLUME 82.7 fl (80.0-105.0); MEAN CORPUSCULAR HEMOGLOBIN 25.4 pg (25.0-35.0); MEAN CORPUSCULAR HGB CONC 30.7 g/dl (31.0-37.0); MONO # 1.5 (0.1-0.6); MONO % 10.5 % (1.0-6.0); RBC 4.1 10^6/uL (3.5-6.1); RED CELL DISTRIBUTION WIDTH 25.1 % (11.5-14.5); WHITE BLOOD COUNT 14.7 10^3/ul (4.5-11.0)
[2017-07-27] MEDS ORDERED: Potassium Chloride 40 mEq/30 ml LIQ UD PO ONE (08:06)
[2017-07-27] MEDS: Pantoprazole 40 mg EC Tab PO SCH (08:25)
[2017-07-27] MEDS: Potassium Chloride 10 mEq ER Tab PO SCH ×2 (08:25→14:20)
[2017-07-27] MEDS: Multivitamin With Minerals Tab PO SCH (08:25)
[2017-07-27] MEDS: Insulin Lispro (humaLOG) MEDIUM Coverage SC SCH ×4 (08:26→21:25)
[2017-07-27] MEDS: VITAMIN C 500MG PO SCH (09:44)
[2017-07-27] MEDS: POLYETHYLENE GLYCOL 3350 17 GM/Dose PACKET PO SCH ×2 (09:47→17:18)
[2017-07-27] MEDS: Nystatin 100,000 Units/gm Topical Pow(15 gm) TOP SCH (10:12)
[2017-07-27 11:44] LABS: MAGNESIUM 1.8 mg/dL (1.7-2.2)
--- NOTE | 2017-07-27 12:00 | CP.PCM.PN ---
Subjective - Date & Time of Evaluation Date of Evaluation: 07/27/17 Time of Evaluation: 10:00 - Subjective Subjective: Infectious Disease Follow Up: July 27, 2017 67 yo female presenting with 3 weeks of RLE ulceration, swelling and leaking from the wound as well as multiple falls in the past 3 weeks. The patient has an extensive medical history of asthma, arthritis, vitamin C deficiency, and possible thyroid disease. Draining RLE ulceration... cellulitis improved/resolved. Multiple chronic medical issues. Still with persistent dry cough. Otherwise stable. Mild erythema and excoriation of the folds in the abdomen and under the breasts. Fevers up to 100.8 F two nights ago. Patient making few complaints. The patient has remained in bed. Nursing and aides had noted that the patient's friend "Chris" has encouraged the patient to stay in bed in order to get to a senior living or subacute facility. "Chris" was the person the patient was living with prior to coming to [facility]. Also noted that the patient has had a hacking cough the last couple of days. Afebrile for several days now. CT scan of chest done. CT shows mild vascular congestion and no infiltrates. UTI with Klebsiella earlier in hospitalization but had treatment with Cipro that is now completed. No additional issues. Social Issues. Off antibiotics now. No new significant complaints at this time. Vague abdominal pain complaints. Non-specific mild pain complaints. No significant current infectious disease issues at this time. Objective - Vital Signs/Intake and Output Vital Signs (last 24 hours): Temp Pulse Resp BP Pulse Ox 97.8 F 84 22 135/72 94 L 07/27/17 07:30 07/27/17 09:44 07/27/17 07:30 07/27/17 09:44 07/27/17 07:30 Intake and Output: 07/27/17 07/27/17 06:59 18:59 Intake Total 797 Balance 797 - Medications Medications: Current Medications Acetaminophen/Butalbital/Caffeine (Fioricet) 1 tab PO Q4H PRN PRN Reason: Headache Last Admin: 07/20/17 21:04 Dose: 1 tab Albuterol/Ipratropium (Duoneb 3 Mg/0.5 Mg (3 Ml) Ud) 3 ml IH [id number] PRN PRN Reason: Shortness of Breath Last Admin: 07/15/17 00:51 Dose: 3 ml Arformoterol Tartrate (Brovana) 15 mcg IH [id number] [facility] Last Admin: 07/26/17 20:52 Dose: 15 mcg Benzonatate (Tessalon Perles) 100 mg PO TID [facility] Last Admin: 07/27/17 09:44 Dose: 100 mg Budesonide (Pulmicort Respules) 0.5 mg IH [id number] [facility] Last Admin: 07/26/17 20:52 Dose: 0.5 mg Docusate Sodium (Colace) 100 mg PO DAILY [facility] Last Admin: 07/27/17 09:44 Dose: 100 mg Ferrous Sulfate (Feosol) 324 mg PO TID [facility] Last Admin: 07/27/17 09:44 Dose: 324 mg Guaifenesin (Robitussin) 100 mg PO Q4H PRN PRN Reason: Cough Last Admin: 07/27/17 03:43 Dose: 100 mg Heparin Sodium (Porcine) (Heparin) 5,000 units SC Q12 [facility] PRN Reason: Protocol Last Admin: 07/27/17 09:44 Dose: 5,000 units Home Med (Home Med) 1 unit PO DAILY [facility] Last Admin: 07/27/17 09:44 Dose: 1 unit Potassium Chloride (Potassium Chloride 10 Meq/100 Ml) 10 meq in 100 mls @ 50 mls/hr IVPB Q1 [facility] Stop: 07/29/17 09:44 Last Admin: 07/27/17 10:12 Dose: 50 mls/hr Ibuprofen (Motrin Tab) 400 mg PO Q6H PRN PRN Reason: Pain, moderate (4-7) Last Admin: 07/25/17 17:05 Dose: 400 mg Insulin Human Lispro (Humalog Med) 0 units SC ACHS [facility] PRN Reason: Protocol Last Admin: 07/27/17 08:26 Dose: Not Given Lisinopril (Zestril) 5 mg PO DAILY [facility] Last Admin: 07/27/17 09:44 Dose: 5 mg Methylprednisolone (Solu-Medrol) 20 mg IVP Q12H [facility] Multivitamins/Minerals (Therapeutic-M Tab) 1 tab PO 0800 [facility] Last Admin: 07/27/17 08:25 Dose: 1 tab Nystatin (Nystop Topical Powder) 1 gm TOP DAILY [facility] Last Admin: 07/27/17 10:12 Dose: 1 applic Pantoprazole Sodium (Protonix Ec Tab) 40 mg PO ACB [facility] Last Admin: 07/27/17 08:25 Dose: 40 mg Polyethylene Glycol (Miralax) 17 gm PO BID [facility] Last Admin: 07/27/17 09:47 Dose: 17 gm Potassium Chloride (Klor-Con 10) 40 meq PO Q4 [facility] Stop: 07/27/17 12:01 Last Admin: 07/27/17 08:25 Dose: 40 meq Zinc Sulfate (Zinc Sulfate 220 Mg Cap) 220 mg PO DAILY [facility] Last Admin: 07/27/17 09:44 Dose: 220 mg - Labs Labs: 07/27/17 07:30 07/27/17 11:30 PT 13.1 SECONDS (9.4-12.5) H 06/15/17 11:00 INR 1.19 (0.93-1.08) H 06/15/17 11:00 APTT 31.3 Seconds (25.1-36.5) 06/15/17 11:00 - Constitutional Appears: Non-toxic, No Acute Distress, Chronically Ill - Head Exam Head Exam: ATRAUMATIC, NORMOCEPHALIC - Eye Exam Eye Exam: EOMI, PERRL Pupil Exam: NORMAL ACCOMODATION, PERRL - ENT Exam ENT Exam: Mucous Membranes Moist, Normal External Ear Exam, TM's Normal Bilaterally - Neck Exam Neck Exam: Full ROM, Normal Inspection - Respiratory Exam Respiratory Exam: Clear to Ausculation Bilateral, NORMAL BREATHING PATTERN. absent: Rales, Rhonchi, Wheezes - Cardiovascular Exam Cardiovascular Exam: REGULAR RHYTHM, RRR, +S1, +S2 - GI/Abdominal Exam GI & Abdominal Exam: Soft, Normal Bowel Sounds. absent: Distended, Tenderness - Extremities Exam Extremities Exam: Full ROM, Normal Inspection - Neurological Exam Neurological Exam: Alert, Awake, CN II-XII Intact, Oriented x3 - Psychiatric Exam Psychiatric exam: Normal Affect, Normal Mood - Skin Skin Exam: Intact, Normal Color Assessment and Plan - Assessment and Plan (Free Text) Assessment: 67 yo female with multiple medical issues with PCN allergy diagnosed as a teenager verified by an Vinyl Cutter. The patient with leukocytosis. Await cultures especially urine cultures. Diabetes and HTN history? Local wound care. Elevated ESR and C-reactive protein. Completed Vancomycin and Aztreonam for antibiotic coverage. UTI with E. coli sensitive to Azactam. Was on Vancomycin for cellulitis IV. For UTI for 5-7 days treatment... completed. Supportive care. Cellulitis appears improved. No new issues. Social issues currently. Homeless at this time. CT scan of chest done. No infiltrates seen. Afebrile the past 24 hours. Mild congestion noted in CT with small pulmonary effusions. No leukocytosis. Slightly elevated procalcitonin (0.66) which is undefined without stronger evidence for pneumonia. When encouraged, she is able to use the incentive spirometer without issues and ambulate with minimal difficulty. UTI with Klebsiella. Sensitive to Cipro. Was on Cipro for 5 day course at 500mg PO BID. Completed the antibiotic course. Stable currently. No new issues. Off antibiotics at this time. Multiple social issues. Chronic cough still. Complains of Vague mild general pains. Awaiting placement. Currently no new infectious disease issues at this time. Thank you for allowing me to participate in the care of the patient, we will follow with you.
--- NOTE | 2017-07-27 15:52 | CP.PCM.PN ---
<Johanna Burns - Last Filed: 07/27/17 15:46> Subjective - Date & Time of Evaluation Date of Evaluation: 07/27/17 Time of Evaluation: 15:46 - Subjective Subjective: Patient has been seen and examined. No overnight events reported. When asked about her cough she states it's "up and down" she replies with the same answer when asked about her SOB. Patient denies any fevers, chills, abdominal pain, n/ v/d, constipation, or any urinary symptoms. Patient reported two bowel movements but is unsure of the stool consistency or what it looked like. Per nursing staff, bowel movements were small and sludge. Per nursing staff, patient had episode of confusion before attending rounds this morning where she talked about [employer] but she was AAOx3. Objective - Vital Signs/Intake and Output Vital Signs (last 24 hours): Temp Pulse Resp BP Pulse Ox 97.8 F 84 22 135/72 94 L 07/27/17 07:30 07/27/17 09:44 07/27/17 07:30 07/27/17 09:44 07/27/17 07:30 Intake and Output: 07/27/17 07/27/17 06:59 18:59 Intake Total 797 Balance 797 - Medications Medications: Current Medications Acetaminophen/Butalbital/Caffeine (Fioricet) 1 tab PO Q4H PRN PRN Reason: Headache Last Admin: 07/20/17 21:04 Dose: 1 tab Albuterol/Ipratropium (Duoneb 3 Mg/0.5 Mg (3 Ml) Ud) 3 ml IH [id number] PRN PRN Reason: Shortness of Breath Last Admin: 07/15/17 00:51 Dose: 3 ml Arformoterol Tartrate (Brovana) 15 mcg IH [id number] [facility] Last Admin: 07/26/17 20:52 Dose: 15 mcg Benzonatate (Tessalon Perles) 100 mg PO TID [facility] Last Admin: 07/27/17 14:15 Dose: 100 mg Budesonide (Pulmicort Respules) 0.5 mg IH [id number] [facility] Last Admin: 07/26/17 20:52 Dose: 0.5 mg Docusate Sodium (Colace) 100 mg PO DAILY [facility] Last Admin: 07/27/17 09:44 Dose: 100 mg Ferrous Sulfate (Feosol) 324 mg PO TID [facility] Last Admin: 07/27/17 14:15 Dose: 324 mg Guaifenesin (Robitussin) 100 mg PO Q4H PRN PRN Reason: Cough Last Admin: 07/27/17 14:15 Dose: 100 mg Heparin Sodium (Porcine) (Heparin) 5,000 units SC Q12 [facility] PRN Reason: Protocol Last Admin: 07/27/17 09:44 Dose: 5,000 units Home Med (Home Med) 1 unit PO DAILY [facility] Last Admin: 07/27/17 09:44 Dose: 1 unit Potassium Chloride (Potassium Chloride 10 Meq/100 Ml) 10 meq in 100 mls @ 50 mls/hr IVPB Q1 [facility] Stop: 07/29/17 09:44 Last Admin: 07/27/17 13:03 Dose: 50 mls/hr Ibuprofen (Motrin Tab) 400 mg PO Q6H PRN PRN Reason: Pain, moderate (4-7) Last Admin: 07/25/17 17:05 Dose: 400 mg Insulin Human Lispro (Humalog Med) 0 units SC ACHS [facility] PRN Reason: Protocol Last Admin: 07/27/17 08:26 Dose: Not Given Lisinopril (Zestril) 5 mg PO DAILY [facility] Last Admin: 07/27/17 09:44 Dose: 5 mg Multivitamins/Minerals (Therapeutic-M Tab) 1 tab PO 0800 [facility] Last Admin: 07/27/17 08:25 Dose: 1 tab Nystatin (Nystop Topical Powder) 1 gm TOP DAILY [facility] Last Admin: 07/27/17 10:12 Dose: 1 applic Pantoprazole Sodium (Protonix Ec Tab) 40 mg PO ACB [facility] Last Admin: 07/27/17 08:25 Dose: 40 mg Polyethylene Glycol (Miralax) 17 gm PO BID [facility] Last Admin: 07/27/17 09:47 Dose: 17 gm Prednisone (Prednisone Tab) 30 mg PO Q12H [facility] Last Admin: 07/27/17 14:19 Dose: 30 mg Zinc Sulfate (Zinc Sulfate 220 Mg Cap) 220 mg PO DAILY [facility] Last Admin: 07/27/17 09:44 Dose: 220 mg - Labs Labs: 07/27/17 07:30 07/27/17 11:30 PT 13.1 SECONDS (9.4-12.5) H 06/15/17 11:00 INR 1.19 (0.93-1.08) H 06/15/17 11:00 APTT 31.3 Seconds (25.1-36.5) 06/15/17 11:00 - Additional Findings Additional findings: - Additional Findings Additional findings: - Constitutional Appears: Non-toxic, No Acute Distress, Older Than Stated Age, Chronically Ill - Head Exam Head Exam: ATRAUMATIC, NORMOCEPHALIC - Eye Exam Eye Exam: EOMI, PERRL. absent: Conjunctival injection, Scleral icterus Pupil Exam: PERRL - ENT Exam ENT Exam: Mucous Membranes Moist. No oral thrust noted. - Neck Exam Neck Exam: Full ROM - Respiratory Exam Respiratory Exam: Clear to Ausculation Bilateral. absent: Accessory Muscle Use , Rhonchi, Wheezes, Respiratory Distress - Cardiovascular Exam Cardiovascular Exam: RRR, +S1, +S2. absent: Murmur - GI/Abdominal Exam GI & Abdominal Exam: Soft, Distended, Normal Bowel Sounds. absent: Firm, Guarding, Rigid, Tenderness, Mass, Organomegaly, Rebound - Extremities Exam Extremities Exam: Pedal Edema (1+ pedal edema). absent: Calf Tenderness, erythema Additional comments: swan neck deformity of hands noted b/l Scaly skin with multiple scab. - Back Exam Back Exam: NORMAL INSPECTION - Neurological Exam Neurological Exam: Alert, Awake, Oriented x3 - Psychiatric Exam Psychiatric exam: Normal Affect - Skin Skin Exam: Dry, Normal Color, Warm Assessment and Plan - Assessment and Plan (Free Text) Assessment: 67 year old female with past medical history of asthma, arthritis, anemia, and obesity, presented with right lower extremity cellulitis and UTI. Patient was found to have cultures positive for Proteus mirabilis and beta hemolytic strep, s/p completed IV course of Vancomycin and Azactam. Patient subsequently found to have Klebsiella UTI s/p adequate treatment with Ciprofloxacin. Patient's course was also complicated by fecal impaction, currently resolved. Pt also found to have intermittent dyspnea, workup revealing a diagnosis of rheumatoid arthritis. Patient is awaiting placement in [facility], pending approval for Medicaid. Plan: Newly diagnosed Rheumatoid Arthritis: - Currently on IV steroids, Motrin for pain control - C/w inhaled corticosteroids and LABA for dyspnea. - Since patient is not experiencing an acute rheumatoid exacerbation, patient can follow up with a administration intern outpatient for further management ( Methotrexate). No rheumatology consult available in house. HTN: - Pt hypertensive on many episodes in hospital - No hx of htn. - C/w Lisinopril 5 mg PO daily. - Cont to monitor. Abdominal Distension, resolved: - likely 2/2 Constipation/fecal impaction - CT Abdomen Pelvis with PO and IV Contrast (07/18): Interstitial and airspace disease in the lung bases; mild cardiomegaly and atherosclerotic disease; fatty liver; gallstones; possible pyelonephritis; mild ileus, no obstruction; constipation with fecal impaction -Improved with bowel regimen: Miralax bid and daily colace. -Cont to monitor. Hyperglycemia: 2/2 likely steroid induced - ISS, will taper off steroids. SOB/cough (improved): -Likely 2/2 to Asthma Exacerbation vs URI vs RA induced pulmonary fibrosis. -Cont with [facility] Q6H -Pulm consult added 07/18/17: Dr. Love, Recs Appreciated -Tapered Solu-medrol to 20 Q8 -C/w inhaled corticosteroids and LABA -RAS positive, titer 1:80, CCP IgG >250 -> Newly diagnosed RA. -RF - PENDING -BNP 397 - CXR showed no infiltrates. cardiomegaly. -CT Chest on 07/04/17: shows Mildly enlarged axillary lymph nodes and moderate cardiomegaly and mild vascular congestion -ESR (07/22): 76 - Tessalon pereles, Robitussin, and Mucinex for cough - Tylenol prn for fevers - Changed Solu-Medrol to Prednisone 20 Q12 Hypokalemia: - K 2.5 today, repleted - Cont to monitor - Ordered Urine Electrolytes Headache - Continue fioricet PRN Normocytic anemia - Hemoglobin stable - Monitor daily GI/DVT ppx: Heparin, Protonix Dispo: Patient awaiting placement in [facility]. Per IRIS note on , 4 people are ahead of her in line with Medicaid. Per IRIS note on 07/21 "iris spoke with pillowcase cutter sabiha fitzpatrick at [phone] ext [phone]. iris was advised that patient is $5000 over the medicaied limit and needs to spend those assets down. once she is at the threshold of $2000 medicaid will start paying august 02. iris placed call to brigette [phone] and left a message requesting a call back , sw provided contact information." Patient seen and discussed with Attending Johanna Burns - PGY1 <Max Liriano - Last Filed: 07/28/17 14:43> Objective - Vital Signs/Intake and Output Vital Signs (last 24 hours): Temp Pulse Resp BP Pulse Ox 97.8 F 86 20 138/80 92 L 07/28/17 08:34 07/28/17 09:48 07/28/17 08:34 07/28/17 09:48 07/28/17 08:34 Intake and Output: 07/28/17 07/28/17 06:59 18:59 Intake Total 600 Balance 600 - Medications Medications: Current Medications Acetaminophen/Butalbital/Caffeine (Fioricet) 1 tab PO Q4H PRN PRN Reason: Headache Last Admin: 07/20/17 21:04 Dose: 1 tab Albuterol/Ipratropium (Duoneb 3 Mg/0.5 Mg (3 Ml) Ud) 3 ml IH [id number] PRN PRN Reason: Shortness of Breath Last Admin: 07/28/17 13:41 Dose: 3 ml Arformoterol Tartrate (Brovana) 15 mcg IH [id number] [facility] Last Admin: 07/28/17 07:28 Dose: 15 mcg Benzonatate (Tessalon Perles) 100 mg PO TID [facility] Last Admin: 07/28/17 13:56 Dose: 100 mg Budesonide (Pulmicort Respules) 0.5 mg IH [id number] [facility] Last Admin: 07/28/17 07:28 Dose: 0.5 mg Docusate Sodium (Colace) 100 mg PO DAILY [facility] Last Admin: 07/28/17 09:47 Dose: 100 mg Ferrous Sulfate (Feosol) 324 mg PO TID [facility] Last Admin: 07/28/17 13:56 Dose: 324 mg Guaifenesin (Robitussin) 100 mg PO Q4H PRN PRN Reason: Cough Last Admin: 07/27/17 14:15 Dose: 100 mg Heparin Sodium (Porcine) (Heparin) 5,000 units SC Q12 [facility] PRN Reason: Protocol Last Admin: 07/28/17 09:48 Dose: 5,000 units Home Med (Home Med) 1 unit PO DAILY [facility] Last Admin: 07/28/17 09:46 Dose: 1 unit Potassium Chloride (Potassium Chloride 10 Meq/100 Ml) 10 meq in 100 mls @ 50 mls/hr IVPB Q1 [facility] Stop: 07/29/17 09:44 Last Admin: 07/27/17 17:18 Dose: 50 mls/hr Insulin Human Lispro (Humalog Med) 0 units SC ACHS [facility] PRN Reason: Protocol Last Admin: 07/28/17 12:03 Dose: 3 units Lisinopril (Zestril) 5 mg PO DAILY [facility] Last Admin: 07/28/17 09:48 Dose: 5 mg Multivitamins/Minerals (Therapeutic-M Tab) 1 tab PO 0800 [facility] Last Admin: 07/28/17 08:51 Dose: 1 tab Nystatin (Nystop Topical Powder) 1 gm TOP DAILY [facility] Last Admin: 07/28/17 09:50 Dose: 1 applic Pantoprazole Sodium (Protonix Ec Tab) 40 mg PO ACB [facility] Last Admin: 07/28/17 08:51 Dose: 40 mg Polyethylene Glycol (Miralax) 17 gm PO BID [facility] Last Admin: 07/28/17 09:48 Dose: 17 gm Potassium Chloride (K-Dur 20 Meq Er Tab) 40 meq PO HS [facility] Prednisone (Prednisone Tab) 20 mg PO Q12H [facility] Last Admin: 07/28/17 08:51 Dose: 20 mg Zinc Sulfate (Zinc Sulfate 220 Mg Cap) 220 mg PO DAILY [facility] Last Admin: 07/28/17 09:47 Dose: 220 mg - Labs Labs: 07/28/17 06:30 07/28/17 12:40 PT 13.1 SECONDS (9.4-12.5) H 06/15/17 11:00 INR 1.19 (0.93-1.08) H 06/15/17 11:00 APTT 31.3 Seconds (25.1-36.5) 06/15/17 11:00 Attending/Attestation - Attestation I have personally seen and examined this patient.: Yes I have fully participated in the care of the patient.: Yes I have reviewed all pertinent clinical information, including history, physical exam and plan: Yes Notes (Text): 07/28/17 14:41 Patient was seen and examined with forensic medical examiner. 67 F with PMH of asthma, arthritis and anemia who presented with right lower extremity cellulitis and UTI , she is s/p antibiotics, currently off antibiotics. CT abdomen and Pelvis showed mild ileus, constipation with fecal impaction which is resolved with stool softener.Patient was having dyspnea due to COPD exacerbation.COPD is improving,on Nebs and oral prednisone. Hypokalemia, will replace potassium and follow up potassium level.We will also check urine electrolyte CRP level is elevated. RAS +. RF pending. Possible rheumatoid arthritis as she has bone deformities, denies any joint pain today.
[2017-07-27] MEDS ORDERED: Pantoprazole 40mg/100mL NS 40 MG/100 ML BAG IVPB SCH (16:15)
--- NOTE | 2017-07-27 17:34 | CARD ---
APPROVED REPORT EKG Measurement Heart [id number] <Conclusion> Sinus rhythm with premature atrial complexes with aberrant conduction Voltage criteria for left ventricular hypertrophy Abnormal ECG
[2017-07-27] MEDS: Arformoterol 15 mcg/2 ml Inh Sol IH SCH (20:32)
[2017-07-27] MEDS: Budesonide 0.5 mg/2 ml Inhal Susp UD IH SCH (20:32)
[2017-07-27] MEDS ORDERED: MethylPREDNISolone 40 mg Vial IVP SCH (22:00)
--- NOTE | 2017-07-27 22:00 | PN ---
DATE: 07/27/2017 SUBJECTIVE: The patient is seen and examined at bedside. She is comfortable. She denies shortness of breath and reports that her cough become substantially better. PHYSICAL EXAMINATION VITAL SIGNS: Temperature 97.9, heart rate 90, blood pressure 121/78, respiratory 20, oxygen saturation 98% on 2 liters nasal cannula. ENT: Head and neck atraumatic. LUNGS: Few scattered wheezes bilaterally. HEART: Regular rate and rhythm. S1 and S2 normal. ABDOMEN: Soft, nontender, however, distended. MUSCULOSKELETAL: Consistent with diagnosis of rheumatoid arthritis. SKIN: Moist. PSYCH: The patient is alert, oriented, comfortable, not in distress. LABORATORY DATA: WBC 15.7 (the patient is afebrile and ID service saw the patient today and ruled out ongoing infectious process at present time), hemoglobin 10.4, platelet count 449. Sodium 140, potassium 3, supplemented, chloride 96, carbon dioxide 35, BUN 31, creatinine 0.9, glucose 124, magnesium 1.8. MEDICATIONS: Tylenol p.r.n., DuoNeb p.r.n., Brovana, Tessalon, budesonide 0.5 mg twice a day, Colace, Robitussin, ferrous sulfate, heparin subcutaneous, regular insulin sliding scale medium protocol, lisinopril, Protonix, MiraLax, potassium supplementation, prednisone 20 mg p.o. q. 12 and zinc. ASSESSMENT: This 67-year-old lady with multiple medical comorbidities who has been followed up by pulmonary service for some cough and shortness of breath, which thought to be related to cough-variant asthma. At present time, the patient's symptoms substantially improved. She in the process of having systemic steroids tapered. She is on inhaled corticosteroids and long-acting beta agonist inhalers. I would continue with deep venous thrombosis and gastrointestinal prophylaxis. Would recommend CPAP or BiPAP at night. Out of bed to chair, pulmonary toilet, incentive spirometry, chest PT. Bassem Love MD JERRE[facility]
[2017-07-28 07:09] LABS: BASO # 0.01 K/mm3 (0.0-2.0); BASO % 0.1 % (0.0-3.0); EOS % 0.3 % (1.5-5.0); GRAN # 9.53 (1.4-6.5); GRAN % 82.5 % (50.0-68.0); HEMOGLOBIN 10.1 g/dL (12.0-16.0); LYMPH # 1.3 (1.2-3.4); LYMPH % 11.3 % (22.0-35.0); MEAN CORPUSCULAR HEMOGLOBIN 25.2 pg (25.0-35.0); MEAN CORPUSCULAR HGB CONC 30.7 g/dl (31.0-37.0); MEAN PLATELET VOLUME 8.9 fl (7.0-11.0); MONO # 0.7 (0.1-0.6); MONO % 5.8 % (1.0-6.0); RBC 4.01 10^6/uL (3.5-6.1); RED CELL DISTRIBUTION WIDTH 25.2 % (11.5-14.5); WHITE BLOOD COUNT 11.5 10^3/ul (4.5-11.0)
[2017-07-28 07:28] LABS: BLOOD UREA NITROGEN 28 mg/dL (7-21); CALCIUM 7.8 mg/dL (8.4-10.5); GFR AFRICAN-AMERICAN > 60; GFR NON-AFRICAN AMERICAN > 60
[2017-07-28] MEDS: Albuterol-Ipratrop 3 mg / 0.5 (3 ml) UD IH PRN ×2 (07:28→13:41)
[2017-07-28] MEDS: Budesonide 0.5 mg/2 ml Inhal Susp UD IH SCH ×2 (07:28→20:50)
[2017-07-28] MEDS: Arformoterol 15 mcg/2 ml Inh Sol IH SCH ×2 (07:28→20:50)
[2017-07-28] MEDS: Insulin Lispro (humaLOG) MEDIUM Coverage SC SCH ×4 (08:18→22:00)
[2017-07-28] MEDS: Pantoprazole 40 mg EC Tab PO SCH (08:51)
[2017-07-28] MEDS: Multivitamin With Minerals Tab PO SCH (08:51)
[2017-07-28] MEDS ORDERED: Potassium Chloride 20 mEq ER Tab PO ONE ×2 (08:53→12:57)
[2017-07-28] MEDS: VITAMIN C 500MG PO SCH (09:46)
[2017-07-28] MEDS: POLYETHYLENE GLYCOL 3350 17 GM/Dose PACKET PO SCH ×3 (09:48→17:46)
[2017-07-28] MEDS: Nystatin 100,000 Units/gm Topical Pow(15 gm) TOP SCH (09:50)
--- NOTE | 2017-07-28 13:05 | CP.PCM.PN ---
<Johanna Burns - Last Filed: 07/28/17 12:59> Subjective - Date & Time of Evaluation Date of Evaluation: 07/28/17 Time of Evaluation: 12:59 - Subjective Subjective: Patient seen and examined. No overnight events reported. Patient had 1 smear bowel movement overnight. She states her cough is "okay" and that it comes and goes. She states her SOB has improved. She denies any fever, abdominal pain, or knee pain. Objective - Vital Signs/Intake and Output Vital Signs (last 24 hours): Temp Pulse Resp BP Pulse Ox 97.8 F 86 20 138/80 92 L 07/28/17 08:34 07/28/17 09:48 07/28/17 08:34 07/28/17 09:48 07/28/17 08:34 Intake and Output: 07/28/17 07/28/17 06:59 18:59 Intake Total 600 Balance 600 - Medications Medications: Current Medications Acetaminophen/Butalbital/Caffeine (Fioricet) 1 tab PO Q4H PRN PRN Reason: Headache Last Admin: 07/20/17 21:04 Dose: 1 tab Albuterol/Ipratropium (Duoneb 3 Mg/0.5 Mg (3 Ml) Ud) 3 ml IH [id number] PRN PRN Reason: Shortness of Breath Last Admin: 07/28/17 07:28 Dose: 3 ml Arformoterol Tartrate (Brovana) 15 mcg IH [id number] [facility] Last Admin: 07/28/17 07:28 Dose: 15 mcg Benzonatate (Tessalon Perles) 100 mg PO TID [facility] Last Admin: 07/28/17 09:47 Dose: 100 mg Budesonide (Pulmicort Respules) 0.5 mg IH [id number] [facility] Last Admin: 07/28/17 07:28 Dose: 0.5 mg Docusate Sodium (Colace) 100 mg PO DAILY [facility] Last Admin: 07/28/17 09:47 Dose: 100 mg Ferrous Sulfate (Feosol) 324 mg PO TID [facility] Last Admin: 07/28/17 09:47 Dose: 324 mg Guaifenesin (Robitussin) 100 mg PO Q4H PRN PRN Reason: Cough Last Admin: 07/27/17 14:15 Dose: 100 mg Heparin Sodium (Porcine) (Heparin) 5,000 units SC Q12 [facility] PRN Reason: Protocol Last Admin: 07/28/17 09:48 Dose: 5,000 units Home Med (Home Med) 1 unit PO DAILY [facility] Last Admin: 07/28/17 09:46 Dose: 1 unit Potassium Chloride (Potassium Chloride 10 Meq/100 Ml) 10 meq in 100 mls @ 50 mls/hr IVPB Q1 [facility] Stop: 07/29/17 09:44 Last Admin: 07/27/17 17:18 Dose: 50 mls/hr Insulin Human Lispro (Humalog Med) 0 units SC ACHS [facility] PRN Reason: Protocol Last Admin: 07/28/17 12:03 Dose: 3 units Lisinopril (Zestril) 5 mg PO DAILY [facility] Last Admin: 07/28/17 09:48 Dose: 5 mg Multivitamins/Minerals (Therapeutic-M Tab) 1 tab PO 0800 [facility] Last Admin: 07/28/17 08:51 Dose: 1 tab Nystatin (Nystop Topical Powder) 1 gm TOP DAILY [facility] Last Admin: 07/28/17 09:50 Dose: 1 applic Pantoprazole Sodium (Protonix Ec Tab) 40 mg PO ACB [facility] Last Admin: 07/28/17 08:51 Dose: 40 mg Polyethylene Glycol (Miralax) 17 gm PO BID [facility] Last Admin: 07/28/17 09:48 Dose: 17 gm Potassium Chloride (K-Dur 20 Meq Er Tab) 40 meq PO HS [facility] Potassium Chloride (K-Dur 20 Meq Er Tab) 20 meq PO ONCE ONE Stop: 07/28/17 12:58 Prednisone (Prednisone Tab) 20 mg PO Q12H [facility] Last Admin: 07/28/17 08:51 Dose: 20 mg Zinc Sulfate (Zinc Sulfate 220 Mg Cap) 220 mg PO DAILY [facility] Last Admin: 07/28/17 09:47 Dose: 220 mg - Labs Labs: 07/28/17 06:30 07/28/17 12:40 PT 13.1 SECONDS (9.4-12.5) H 06/15/17 11:00 INR 1.19 (0.93-1.08) H 06/15/17 11:00 APTT 31.3 Seconds (25.1-36.5) 06/15/17 11:00 - Additional Findings Additional findings: - Constitutional Appears: Non-toxic, No Acute Distress, Older Than Stated Age, Chronically Ill - Head Exam Head Exam: ATRAUMATIC, NORMOCEPHALIC - Eye Exam Eye Exam: EOMI, PERRL. absent: Conjunctival injection, Scleral icterus Pupil Exam: PERRL - ENT Exam ENT Exam: Mucous Membranes Moist. No oral thrust noted. - Neck Exam Neck Exam: Full ROM - Respiratory Exam Respiratory Exam: Clear to Ausculation Bilateral. absent: Accessory Muscle Use , Rhonchi, Wheezes, Respiratory Distress - Cardiovascular Exam Cardiovascular Exam: RRR, +S1, +S2. absent: Murmur - GI/Abdominal Exam GI & Abdominal Exam: Soft, Distended, Normal Bowel Sounds. absent: Firm, Guarding, Rigid, Tenderness, Mass, Organomegaly, Rebound - Extremities Exam Extremities Exam: Pedal Edema (1+ pedal edema). absent: Calf Tenderness, erythema Additional comments: swan neck deformity of hands noted b/l Scaly skin with multiple scab. - Back Exam Back Exam: NORMAL INSPECTION - Neurological Exam Neurological Exam: Alert, Awake, Oriented x3 - Psychiatric Exam Psychiatric exam: Normal Affect - Skin Skin Exam: Dry, Normal Color, Warm Assessment and Plan - Assessment and Plan (Free Text) Assessment: 67 year old female with past medical history of asthma, arthritis, anemia, and obesity, presented with right lower extremity cellulitis and UTI. Patient was found to have cultures positive for Proteus mirabilis and beta hemolytic strep, s/p completed IV course of Vancomycin and Azactam. Patient subsequently found to have Klebsiella UTI s/p adequate treatment with Ciprofloxacin. Patient's course was also complicated by fecal impaction, currently resolved. Pt also found to have intermittent dyspnea, workup revealing a diagnosis of rheumatoid arthritis. Patient is awaiting placement in [facility], pending approval for Medicaid. Plan: Newly diagnosed Rheumatoid Arthritis: - Currently on IV steroids, Motrin for pain control - C/w inhaled corticosteroids and LABA for dyspnea. - Since patient is not experiencing an acute rheumatoid exacerbation, patient can follow up with a ethanol maintenance mechanic outpatient for further management ( Methotrexate). No rheumatology consult available in house. HTN: - Pt hypertensive on many episodes in hospital - No hx of htn. - C/w Lisinopril 5 mg PO daily. - Cont to monitor. Abdominal Distension, resolved: - likely 2/2 Constipation/fecal impaction - CT Abdomen Pelvis with PO and IV Contrast (07/18): Interstitial and airspace disease in the lung bases; mild cardiomegaly and atherosclerotic disease; fatty liver; gallstones; possible pyelonephritis; mild ileus, no obstruction; constipation with fecal impaction -Improved with bowel regimen: Miralax bid and daily colace. -Cont to monitor. Hyperglycemia: 2/2 likely steroid induced - ISS, will taper off steroids. SOB/cough (improved): -Likely 2/2 to Asthma Exacerbation vs URI vs RA induced pulmonary fibrosis. -Cont with Duonebs [facility] Q6H -Pulm consult added 07/18/17: Dr. Love, Recs Appreciated -C/w inhaled corticosteroids and LABA -RAS positive, titer 1:80, CCP IgG >250 -> Newly diagnosed RA. -RF - PENDING -BNP 397 - CXR showed no infiltrates. cardiomegaly. -CT Chest on 07/04/17: shows Mildly enlarged axillary lymph nodes and moderate cardiomegaly and mild vascular congestion -ESR (07/22): 76 - Tessalon pereles, Robitussin, and Mucinex for cough - Tylenol prn for fevers - Cont. Prednisone 20 Q12 (per Pulm). Taper tomorrow. - Added Incentive Spirometry - Added Chest PT - Added nightly CPAP Hypokalemia: - Repleted today - Added ESC[facility]AR Potassium - Cont to monitor - Urine Sodium - 88 WNL - Urine Potassium - 27.9 WNL Headache - Continue fioricet PRN Normocytic anemia - Hemoglobin stable - Monitor daily GI/DVT ppx: Heparin, Protonix Dispo: Patient awaiting placement in [facility]. Patient seen and discussed with Attending Johanna Burns - PGY1 <Max Liriano - Last Filed: 07/28/17 14:45> Objective - Vital Signs/Intake and Output Vital Signs (last 24 hours): Temp Pulse Resp BP Pulse Ox 97.8 F 86 20 138/80 92 L 07/28/17 08:34 07/28/17 09:48 07/28/17 08:34 07/28/17 09:48 07/28/17 08:34 Intake and Output: 07/28/17 07/28/17 06:59 18:59 Intake Total 600 Balance 600 - Medications Medications: Current Medications Acetaminophen/Butalbital/Caffeine (Fioricet) 1 tab PO Q4H PRN PRN Reason: Headache Last Admin: 07/20/17 21:04 Dose: 1 tab Albuterol/Ipratropium (Duoneb 3 Mg/0.5 Mg (3 Ml) Ud) 3 ml IH [id number] PRN PRN Reason: Shortness of Breath Last Admin: 07/28/17 13:41 Dose: 3 ml Arformoterol Tartrate (Brovana) 15 mcg IH [id number] [facility] Last Admin: 07/28/17 07:28 Dose: 15 mcg Benzonatate (Tessalon Perles) 100 mg PO TID [facility] Last Admin: 07/28/17 13:56 Dose: 100 mg Budesonide (Pulmicort Respules) 0.5 mg IH [id number] [facility] Last Admin: 07/28/17 07:28 Dose: 0.5 mg Docusate Sodium (Colace) 100 mg PO DAILY [facility] Last Admin: 07/28/17 09:47 Dose: 100 mg Ferrous Sulfate (Feosol) 324 mg PO TID [facility] Last Admin: 07/28/17 13:56 Dose: 324 mg Guaifenesin (Robitussin) 100 mg PO Q4H PRN PRN Reason: Cough Last Admin: 07/27/17 14:15 Dose: 100 mg Heparin Sodium (Porcine) (Heparin) 5,000 units SC Q12 [facility] PRN Reason: Protocol Last Admin: 07/28/17 09:48 Dose: 5,000 units Home Med (Home Med) 1 unit PO DAILY [facility] Last Admin: 07/28/17 09:46 Dose: 1 unit Potassium Chloride (Potassium Chloride 10 Meq/100 Ml) 10 meq in 100 mls @ 50 mls/hr IVPB Q1 [facility] Stop: 07/29/17 09:44 Last Admin: 07/27/17 17:18 Dose: 50 mls/hr Insulin Human Lispro (Humalog Med) 0 units SC ACHS [facility] PRN Reason: Protocol Last Admin: 07/28/17 12:03 Dose: 3 units Lisinopril (Zestril) 5 mg PO DAILY [facility] Last Admin: 07/28/17 09:48 Dose: 5 mg Multivitamins/Minerals (Therapeutic-M Tab) 1 tab PO 0800 [facility] Last Admin: 07/28/17 08:51 Dose: 1 tab Nystatin (Nystop Topical Powder) 1 gm TOP DAILY [facility] Last Admin: 07/28/17 09:50 Dose: 1 applic Pantoprazole Sodium (Protonix Ec Tab) 40 mg PO ACB [facility] Last Admin: 07/28/17 08:51 Dose: 40 mg Polyethylene Glycol (Miralax) 17 gm PO BID [facility] Last Admin: 07/28/17 09:48 Dose: 17 gm Potassium Chloride (K-Dur 20 Meq Er Tab) 40 meq PO HS [facility] Prednisone (Prednisone Tab) 20 mg PO Q12H [facility] Last Admin: 07/28/17 08:51 Dose: 20 mg Zinc Sulfate (Zinc Sulfate 220 Mg Cap) 220 mg PO DAILY [facility] Last Admin: 07/28/17 09:47 Dose: 220 mg - Labs Labs: 07/28/17 06:30 07/28/17 12:40 PT 13.1 SECONDS (9.4-12.5) H 06/15/17 11:00 INR 1.19 (0.93-1.08) H 06/15/17 11:00 APTT 31.3 Seconds (25.1-36.5) 06/15/17 11:00 Attending/Attestation - Attestation I have personally seen and examined this patient.: Yes I have fully participated in the care of the patient.: Yes I have reviewed all pertinent clinical information, including history, physical exam and plan: Yes Notes (Text): 07/28/17 14:44 Patient was seen and examined with phlebotomist medical lab assistant. 67 F with PMH of asthma, arthritis and anemia who presented with right lower extremity cellulitis and UTI , she is s/p antibiotics, currently off antibiotics. Fecal impaction has resolved, Patient was having dyspnea due to COPD exacerbation.COPD is improving,on Nebs and oral prednisone. Hypokalemia,improving on oral supplements, Patient is awaiting placement. 07/28/17 14:44
--- NOTE | 2017-07-28 15:47 | CP.PCM.PN ---
Subjective - Date & Time of Evaluation Date of Evaluation: 07/28/17 Time of Evaluation: 15:00 - Subjective Subjective: Infectious Disease Follow Up: July 28, 2017 67 yo female presenting with 3 weeks of RLE ulceration, swelling and leaking from the wound as well as multiple falls in the past 3 weeks. The patient has an extensive medical history of asthma, arthritis, vitamin C deficiency, and possible thyroid disease. Draining RLE ulceration... cellulitis improved/resolved. Multiple chronic medical issues. Still with persistent dry cough. Otherwise stable. Mild erythema and excoriation of the folds in the abdomen and under the breasts. Fevers up to 100.8 F two nights ago. Patient making few complaints. The patient has remained in bed. Nursing and aides had noted that the patient's friend "Chris" has encouraged the patient to stay in bed in order to get to a snf or subacute facility. "Chris" was the person the patient was living with prior to coming to [facility]. Also noted that the patient has had a hacking cough the last couple of days. Afebrile for several days now. CT scan of chest done. CT shows mild vascular congestion and no infiltrates. UTI with Klebsiella earlier in hospitalization but had treatment with Cipro that is now completed. No additional issues. Social Issues. Off antibiotics now. No new significant complaints at this time. Vague abdominal pain complaints. Non-specific mild pain complaints. No significant current infectious disease issues at this time. Objective - Vital Signs/Intake and Output Vital Signs (last 24 hours): Temp Pulse Resp BP Pulse Ox 97.8 F 86 20 138/80 92 L 07/28/17 08:34 07/28/17 09:48 07/28/17 08:34 07/28/17 09:48 07/28/17 08:34 Intake and Output: 07/28/17 07/28/17 06:59 18:59 Intake Total 600 640 Balance 600 640 - Medications Medications: Current Medications Acetaminophen/Butalbital/Caffeine (Fioricet) 1 tab PO Q4H PRN PRN Reason: Headache Last Admin: 07/20/17 21:04 Dose: 1 tab Albuterol/Ipratropium (Duoneb 3 Mg/0.5 Mg (3 Ml) Ud) 3 ml IH [id number] PRN PRN Reason: Shortness of Breath Last Admin: 07/28/17 13:41 Dose: 3 ml Arformoterol Tartrate (Brovana) 15 mcg IH [id number] [facility] Last Admin: 07/28/17 07:28 Dose: 15 mcg Benzonatate (Tessalon Perles) 100 mg PO TID [facility] Last Admin: 07/28/17 13:56 Dose: 100 mg Budesonide (Pulmicort Respules) 0.5 mg IH [id number] [facility] Last Admin: 07/28/17 07:28 Dose: 0.5 mg Docusate Sodium (Colace) 100 mg PO DAILY [facility] Last Admin: 07/28/17 09:47 Dose: 100 mg Ferrous Sulfate (Feosol) 324 mg PO TID [facility] Last Admin: 07/28/17 13:56 Dose: 324 mg Guaifenesin (Robitussin) 100 mg PO Q4H PRN PRN Reason: Cough Last Admin: 07/27/17 14:15 Dose: 100 mg Heparin Sodium (Porcine) (Heparin) 5,000 units SC Q12 [facility] PRN Reason: Protocol Last Admin: 07/28/17 09:48 Dose: 5,000 units Home Med (Home Med) 1 unit PO DAILY [facility] Last Admin: 07/28/17 09:46 Dose: 1 unit Potassium Chloride (Potassium Chloride 10 Meq/100 Ml) 10 meq in 100 mls @ 50 mls/hr IVPB Q1 [facility] Stop: 07/29/17 09:44 Last Admin: 07/27/17 17:18 Dose: 50 mls/hr Insulin Human Lispro (Humalog Med) 0 units SC ACHS [facility] PRN Reason: Protocol Last Admin: 07/28/17 12:03 Dose: 3 units Lisinopril (Zestril) 5 mg PO DAILY [facility] Last Admin: 07/28/17 09:48 Dose: 5 mg Multivitamins/Minerals (Therapeutic-M Tab) 1 tab PO 0800 [facility] Last Admin: 07/28/17 08:51 Dose: 1 tab Nystatin (Nystop Topical Powder) 1 gm TOP DAILY [facility] Last Admin: 07/28/17 09:50 Dose: 1 applic Pantoprazole Sodium (Protonix Ec Tab) 40 mg PO ACB [facility] Last Admin: 07/28/17 08:51 Dose: 40 mg Polyethylene Glycol (Miralax) 17 gm PO BID [facility] Last Admin: 07/28/17 09:48 Dose: 17 gm Potassium Chloride (K-Dur 20 Meq Er Tab) 40 meq PO HS [facility] Prednisone (Prednisone Tab) 20 mg PO Q12H [facility] Last Admin: 07/28/17 08:51 Dose: 20 mg Zinc Sulfate (Zinc Sulfate 220 Mg Cap) 220 mg PO DAILY [facility] Last Admin: 07/28/17 09:47 Dose: 220 mg - Labs Labs: 07/28/17 06:30 07/28/17 12:40 PT 13.1 SECONDS (9.4-12.5) H 06/15/17 11:00 INR 1.19 (0.93-1.08) H 06/15/17 11:00 APTT 31.3 Seconds (25.1-36.5) 06/15/17 11:00 - Constitutional Appears: Non-toxic, No Acute Distress, Chronically Ill - Head Exam Head Exam: ATRAUMATIC, NORMOCEPHALIC - Eye Exam Eye Exam: EOMI, PERRL Pupil Exam: NORMAL ACCOMODATION, PERRL - ENT Exam ENT Exam: Mucous Membranes Moist, Normal External Ear Exam, TM's Normal Bilaterally - Neck Exam Neck Exam: Full ROM, Normal Inspection - Respiratory Exam Respiratory Exam: Clear to Ausculation Bilateral, NORMAL BREATHING PATTERN. absent: Rales, Rhonchi, Wheezes - Cardiovascular Exam Cardiovascular Exam: REGULAR RHYTHM, RRR, +S1, +S2 - GI/Abdominal Exam GI & Abdominal Exam: Soft, Normal Bowel Sounds. absent: Distended, Tenderness - Extremities Exam Extremities Exam: Full ROM, Normal Inspection - Neurological Exam Neurological Exam: Alert, Awake, CN II-XII Intact, Oriented x3 - Psychiatric Exam Psychiatric exam: Normal Affect, Normal Mood - Skin Skin Exam: Intact, Normal Color Assessment and Plan - Assessment and Plan (Free Text) Assessment: 67 yo female with multiple medical issues with PCN allergy diagnosed as a teenager verified by an Fruit [employer]. The patient with leukocytosis. Await cultures especially urine cultures. Diabetes and HTN history? Local wound care. Elevated ESR and C-reactive protein. Completed Vancomycin and Aztreonam for antibiotic coverage. UTI with E. coli sensitive to Azactam. Was on Vancomycin for cellulitis IV. For UTI for 5-7 days treatment... completed. Supportive care. Cellulitis appears improved. No new issues. Social issues currently. Homeless at this time. CT scan of chest done. No infiltrates seen. Afebrile the past 24 hours. Mild congestion noted in CT with small pulmonary effusions. No leukocytosis. Slightly elevated procalcitonin (0.66) which is undefined without stronger evidence for pneumonia. When encouraged, she is able to use the incentive spirometer without issues and ambulate with minimal difficulty. UTI with Klebsiella. Sensitive to Cipro. Was on Cipro for 5 day course at 500mg PO BID. Completed the antibiotic course. Stable currently. No new issues. Off antibiotics at this time. Multiple social issues. Chronic cough still. Complains of Vague mild general pains. Awaiting placement. Currently no new infectious disease issues at this time. Thank you for allowing me to participate in the care of the patient, we will follow with you.
[2017-07-28] MEDS: Potassium Chloride 20 mEq ER Tab PO SCH (21:59)
[2017-07-29] MEDS: Potassium Chloride 20 mEq ER Tab PO SCH (06:42)
[2017-07-29] MEDS: Arformoterol 15 mcg/2 ml Inh Sol IH SCH ×2 (07:11→21:35)
[2017-07-29] MEDS: Budesonide 0.5 mg/2 ml Inhal Susp UD IH SCH ×2 (07:12→21:35)
[2017-07-29 07:41] LABS: BASO # 0.03 K/mm3 (0.0-2.0); BASO % 0.2 % (0.0-3.0); EOS # 1.1 (0.0-0.7); EOS % 8.1 % (1.5-5.0); GRAN # 8.21 (1.4-6.5); GRAN % 62.1 % (50.0-68.0); HEMOGLOBIN 9.8 g/dL (12.0-16.0); LYMPH # 2.6 (1.2-3.4); LYMPH % 19.3 % (22.0-35.0); MEAN CELL VOLUME 83.6 fl (80.0-105.0); MEAN CORPUSCULAR HEMOGLOBIN 25.6 pg (25.0-35.0); MEAN CORPUSCULAR HGB CONC 30.6 g/dl (31.0-37.0); MEAN PLATELET VOLUME 8.9 fl (7.0-11.0); MONO # 1.4 (0.1-0.6); MONO % 10.3 % (1.0-6.0); RBC 3.83 10^6/uL (3.5-6.1); RED CELL DISTRIBUTION WIDTH 25.7 % (11.5-14.5); WHITE BLOOD COUNT 13.2 10^3/ul (4.5-11.0)
[2017-07-29] MEDS: Insulin Lispro (humaLOG) MEDIUM Coverage SC SCH ×3 (08:05→17:17)
[2017-07-29] MEDS: Multivitamin With Minerals Tab PO SCH (08:09)
[2017-07-29] MEDS: Pantoprazole 40 mg EC Tab PO SCH (08:10)
[2017-07-29] MEDS: Nystatin 100,000 Units/gm Topical Pow(15 gm) TOP SCH (09:54)
[2017-07-29] MEDS: POLYETHYLENE GLYCOL 3350 17 GM/Dose PACKET PO SCH ×2 (09:55→17:17)
[2017-07-29] MEDS: VITAMIN C 500MG PO SCH (09:58)
--- NOTE | 2017-07-29 14:04 | CP.PCM.PN ---
<Johanna Burns - Last Filed: 07/29/17 14:00> Subjective - Date & Time of Evaluation Date of Evaluation: 07/29/17 Time of Evaluation: 09:00 - Subjective Subjective: Patient seen and examined. No overnight events reported. Patient had 2 watery bowel movement sovernight. She states her cough is "okay" and that it comes and goes. She denies any SOB. She denies any fever and abdominal pain. Complains of slight knee pain. Objective - Vital Signs/Intake and Output Vital Signs (last 24 hours): Temp Pulse Resp BP Pulse Ox 97.8 F 78 20 131/72 97 07/29/17 07:30 07/29/17 09:53 07/29/17 07:30 07/29/17 09:53 07/29/17 07:30 Intake and Output: 07/29/17 07/29/17 06:59 18:59 Intake Total 510 Output Total 200 Balance 310 - Medications Medications: Current Medications Acetaminophen/Butalbital/Caffeine (Fioricet) 1 tab PO Q4H PRN PRN Reason: Headache Last Admin: 07/20/17 21:04 Dose: 1 tab Albuterol/Ipratropium (Duoneb 3 Mg/0.5 Mg (3 Ml) Ud) 3 ml IH [id number] PRN PRN Reason: Shortness of Breath Last Admin: 07/28/17 13:41 Dose: 3 ml Arformoterol Tartrate (Brovana) 15 mcg IH [id number] [facility] Last Admin: 07/29/17 07:11 Dose: 15 mcg Benzonatate (Tessalon Perles) 100 mg PO TID [facility] Last Admin: 07/29/17 09:53 Dose: 100 mg Budesonide (Pulmicort Respules) 0.5 mg IH [id number] [facility] Last Admin: 07/29/17 07:12 Dose: 0.5 mg Docusate Sodium (Colace) 100 mg PO DAILY [facility] Last Admin: 07/29/17 09:53 Dose: 100 mg Ferrous Sulfate (Feosol) 324 mg PO TID [facility] Last Admin: 07/29/17 09:53 Dose: 324 mg Guaifenesin (Robitussin) 100 mg PO Q4H PRN PRN Reason: Cough Last Admin: 07/27/17 14:15 Dose: 100 mg Heparin Sodium (Porcine) (Heparin) 5,000 units SC Q12 [facility] PRN Reason: Protocol Last Admin: 07/29/17 09:52 Dose: 5,000 units Home Med (Home Med) 1 unit PO DAILY [facility] Last Admin: 07/29/17 09:58 Dose: 1 unit Insulin Human Lispro (Humalog Med) 0 units SC ACHS [facility] PRN Reason: Protocol Last Admin: 07/29/17 12:11 Dose: Not Given Lisinopril (Zestril) 5 mg PO DAILY [facility] Last Admin: 07/29/17 09:53 Dose: 5 mg Multivitamins/Minerals (Therapeutic-M Tab) 1 tab PO 0800 [facility] Last Admin: 07/29/17 08:09 Dose: 1 tab Nystatin (Nystop Topical Powder) 1 gm TOP DAILY [facility] Last Admin: 07/29/17 09:54 Dose: 1 applic Pantoprazole Sodium (Protonix Ec Tab) 40 mg PO ACB [facility] Last Admin: 07/29/17 08:10 Dose: 40 mg Polyethylene Glycol (Miralax) 17 gm PO BID [facility] Last Admin: 07/29/17 09:55 Dose: Not Given Potassium Chloride (K-Dur 20 Meq Er Tab) 40 meq PO HS [facility] Last Admin: 07/29/17 06:42 Dose: Not Given Prednisone (Prednisone Tab) 20 mg PO Q12H [facility] Last Admin: 07/29/17 08:10 Dose: 20 mg Prednisone (Prednisone Tab) 10 mg PO Q12H [facility] Zinc Sulfate (Zinc Sulfate 220 Mg Cap) 220 mg PO DAILY [facility] Last Admin: 07/29/17 09:53 Dose: 220 mg - Labs Labs: 07/29/17 07:00 07/28/17 12:40 PT 13.1 SECONDS (9.4-12.5) H 06/15/17 11:00 INR 1.19 (0.93-1.08) H 06/15/17 11:00 APTT 31.3 Seconds (25.1-36.5) 06/15/17 11:00 - Additional Findings Additional findings: - Constitutional Appears: Non-toxic, No Acute Distress, Older Than Stated Age, Chronically Ill - Head Exam Head Exam: ATRAUMATIC, Swollen face (Likely 2/2 to steroids) - Eye Exam Eye Exam: EOMI, PERRL. absent: Conjunctival injection, Scleral icterus Pupil Exam: PERRL - ENT Exam ENT Exam: Mucous Membranes Moist. No oral thrust noted. - Neck Exam Neck Exam: Full ROM - Respiratory Exam Respiratory Exam: Clear to Ausculation Bilateral. absent: Accessory Muscle Use , Rhonchi, Wheezes, Respiratory Distress - Cardiovascular Exam Cardiovascular Exam: RRR, +S1, +S2. absent: Murmur - GI/Abdominal Exam GI & Abdominal Exam: Soft, Distended, Normal Bowel Sounds. absent: Firm, Guarding, Rigid, Tenderness, Mass, Organomegaly, Rebound - Extremities Exam Extremities Exam: Pedal Edema (Trace). absent: Calf Tenderness, erythema Additional comments: swan neck deformity of hands noted b/l Scaly skin with multiple scab. - Back Exam Back Exam: NORMAL INSPECTION - Neurological Exam Neurological Exam: Alert, Awake, Oriented x3 - Psychiatric Exam Psychiatric exam: Normal Affect - Skin Skin Exam: Dry, Normal Color, Warm Assessment and Plan - Assessment and Plan (Free Text) Assessment: 67 year old female with past medical history of asthma, arthritis, anemia, and obesity, presented with right lower extremity cellulitis and UTI. Patient was found to have cultures positive for Proteus mirabilis and beta hemolytic strep, s/p completed IV course of Vancomycin and Azactam. Patient subsequently found to have Klebsiella UTI s/p adequate treatment with Ciprofloxacin. Patient's course was also complicated by fecal impaction, currently resolved. Pt also found to have intermittent dyspnea, workup revealing a diagnosis of rheumatoid arthritis. Patient is awaiting placement in [facility], pending approval for Medicaid. Plan: Newly diagnosed Rheumatoid Arthritis: - Currently on IV steroids, Motrin for pain control - C/w inhaled corticosteroids and LABA for dyspnea. - Since patient is not experiencing an acute rheumatoid exacerbation, patient can follow up with a harp repairer outpatient for further management ( Methotrexate). No rheumatology consult available in house. HTN: - Pt hypertensive on many episodes in hospital - No hx of htn. - C/w Lisinopril 5 mg PO daily. - Cont to monitor. Abdominal Distension, resolved: - likely 2/2 Constipation/fecal impaction - CT Abdomen Pelvis with PO and IV Contrast (07/18): Interstitial and airspace disease in the lung bases; mild cardiomegaly and atherosclerotic disease; fatty liver; gallstones; possible pyelonephritis; mild ileus, no obstruction; constipation with fecal impaction -Improved with bowel regimen: Miralax bid and daily colace. -Cont to monitor. - Consider adding bulking agent. Hyperglycemia: 2/2 likely steroid induced - ISS, will taper off steroids. SOB/cough (improved): -Likely 2/2 to Asthma Exacerbation vs URI vs RA induced pulmonary fibrosis. -Cont with Duonebs [facility] Q6H -Pulm consult added 07/18/17: Dr. Love, Recs Appreciated -C/w inhaled corticosteroids and LABA -RAS positive, titer 1:80, CCP IgG >250 -> Newly diagnosed RA. -RF - IgG and IgM - NEGATIVE. IgA- POSITIVE -BNP 397 - CXR showed no infiltrates. cardiomegaly. -CT Chest on 07/04/17: shows Mildly enlarged axillary lymph nodes and moderate cardiomegaly and mild vascular congestion -ESR (07/22): 76 - Tessalon pereles, Robitussin, and Mucinex for cough - Tylenol prn for fevers - Tapered Prednisone to 10 Q12 - Incentive Spirometry - Chest PT - nightly CPAP Hypokalemia: - Repleted today - Added ESCOBAR Potassium - Cont to monitor - Urine Sodium - 88 WNL - Urine Potassium - 27.9 WNL Headache - Continue fioricet PRN Normocytic anemia - Hemoglobin stable - Monitor daily GI/DVT ppx: Heparin, Protonix Dispo: Patient awaiting placement in [facility]. Patient seen and discussed with Attending Johanna Burns - PGY1 <Max Liriano - Last Filed: 07/29/17 17:06> Objective - Vital Signs/Intake and Output Vital Signs (last 24 hours): Temp Pulse Resp BP Pulse Ox 97.8 F 78 20 131/72 97 07/29/17 07:30 07/29/17 09:53 07/29/17 07:30 07/29/17 09:53 07/29/17 07:30 Intake and Output: 07/29/17 07/29/17 06:59 18:59 Intake Total 510 780 Output Total 200 Balance 310 780 - Medications Medications: Current Medications Albuterol/Ipratropium (Duoneb 3 Mg/0.5 Mg (3 Ml) Ud) 3 ml IH [id number] PRN PRN Reason: Shortness of Breath Last Admin: 07/28/17 13:41 Dose: 3 ml Arformoterol Tartrate (Brovana) 15 mcg IH [id number] [facility] Last Admin: 07/29/17 07:11 Dose: 15 mcg Benzonatate (Tessalon Perles) 100 mg PO TID [facility] Last Admin: 07/29/17 14:36 Dose: 100 mg Budesonide (Pulmicort Respules) 0.5 mg IH [id number] [facility] Last Admin: 07/29/17 07:12 Dose: 0.5 mg Docusate Sodium (Colace) 100 mg PO DAILY [facility] Last Admin: 07/29/17 09:53 Dose: 100 mg Ferrous Sulfate (Feosol) 324 mg PO TID [facility] Last Admin: 07/29/17 14:36 Dose: 324 mg Heparin Sodium (Porcine) (Heparin) 5,000 units SC Q12 [facility] PRN Reason: Protocol Last Admin: 07/29/17 09:52 Dose: 5,000 units Home Med (Home Med) 1 unit PO DAILY [facility] Last Admin: 07/29/17 09:58 Dose: 1 unit Insulin Human Lispro (Humalog Med) 0 units SC ACHS [facility] PRN Reason: Protocol Last Admin: 07/29/17 12:11 Dose: Not Given Lisinopril (Zestril) 5 mg PO DAILY [facility] Last Admin: 07/29/17 09:53 Dose: 5 mg Multivitamins/Minerals (Therapeutic-M Tab) 1 tab PO 0800 [facility] Last Admin: 07/29/17 08:09 Dose: 1 tab Nystatin (Nystop Topical Powder) 1 gm TOP DAILY [facility] Last Admin: 07/29/17 09:54 Dose: 1 applic Pantoprazole Sodium (Protonix Ec Tab) 40 mg PO ACB [facility] Last Admin: 07/29/17 08:10 Dose: 40 mg Polyethylene Glycol (Miralax) 17 gm PO BID [facility] Last Admin: 07/29/17 09:55 Dose: Not Given Potassium Chloride (K-Dur 20 Meq Er Tab) 40 meq PO HS [facility] Last Admin: 07/29/17 06:42 Dose: Not Given Prednisone (Prednisone Tab) 20 mg PO Q12H [facility] Last Admin: 07/29/17 08:10 Dose: 20 mg Prednisone (Prednisone Tab) 10 mg PO Q12H [facility] Zinc Sulfate (Zinc Sulfate 220 Mg Cap) 220 mg PO DAILY [facility] Last Admin: 07/29/17 09:53 Dose: 220 mg - Labs Labs: 07/29/17 07:00 07/28/17 12:40 PT 13.1 SECONDS (9.4-12.5) H 06/15/17 11:00 INR 1.19 (0.93-1.08) H 06/15/17 11:00 APTT 31.3 Seconds (25.1-36.5) 06/15/17 11:00 Attending/Attestation - Attestation I have personally seen and examined this patient.: Yes I have fully participated in the care of the patient.: Yes I have reviewed all pertinent clinical information, including history, physical exam and plan: Yes Notes (Text): 07/29/17 17:02 Patient was seen and examined with medical malpractice paralegal. Patient is stable at base line.There is no overnight issue. In Summary 67 F with PMH of asthma, arthritis and anemia who presented with right lower extremity cellulitis and UTI , she is s/p antibiotics, currently off antibiotics.Fecal impaction has resolved, COPD is improving,on Nebs and oral Prednisone. Hypokalemia,improving on oral supplements, Patient is awaiting placement.
[2017-07-29] MEDS ORDERED: Potassium Chloride 20 mEq ER Tab PO ONE (14:08)
--- NOTE | 2017-07-29 17:52 | CP.PCM.PN ---
Subjective - Date & Time of Evaluation Date of Evaluation: 07/29/17 Time of Evaluation: 17:48 - Subjective Subjective: Infectious Disease Follow Up: July 29, 2017 67 yo female presenting with 3 weeks of RLE ulceration, swelling and leaking from the wound as well as multiple falls in the past 3 weeks. The patient has an extensive medical history of asthma, arthritis, vitamin C deficiency, and possible thyroid disease. Draining RLE ulceration... cellulitis improved/resolved. Multiple chronic medical issues. Still with persistent dry cough. Otherwise stable. Mild erythema and excoriation of the folds in the abdomen and under the breasts. Fevers up to 100.8 F two nights ago. Patient making few complaints. The patient has remained in bed. Nursing and aides had noted that the patient's friend "Chris" has encouraged the patient to stay in bed in order to get to a jail or subacute facility. "Chris" was the person the patient was living with prior to coming to [facility]. Also noted that the patient has had a hacking cough the last couple of days. Afebrile for several days now. CT scan of chest done. CT shows mild vascular congestion and no infiltrates. UTI with Klebsiella earlier in hospitalization but had treatment with Cipro that is now completed. No additional issues. Social Issues. Off antibiotics now. No new significant complaints at this time. Vague abdominal pain complaints. Non-specific mild pain complaints. No significant current infectious disease issues at this time. Objective - Vital Signs/Intake and Output Vital Signs (last 24 hours): Temp Pulse Resp BP Pulse Ox 97.8 F 78 20 131/72 97 07/29/17 07:30 07/29/17 09:53 07/29/17 07:30 07/29/17 09:53 07/29/17 07:30 Intake and Output: 07/29/17 07/29/17 06:59 18:59 Intake Total 510 780 Output Total 200 Balance 310 780 - Medications Medications: Current Medications Albuterol/Ipratropium (Duoneb 3 Mg/0.5 Mg (3 Ml) Ud) 3 ml IH [id number] PRN PRN Reason: Shortness of Breath Last Admin: 07/28/17 13:41 Dose: 3 ml Arformoterol Tartrate (Brovana) 15 mcg IH [id number] [facility] Last Admin: 07/29/17 07:11 Dose: 15 mcg Benzonatate (Tessalon Perles) 100 mg PO TID [facility] Last Admin: 07/29/17 17:36 Dose: 100 mg Budesonide (Pulmicort Respules) 0.5 mg IH [id number] [facility] Last Admin: 07/29/17 07:12 Dose: 0.5 mg Docusate Sodium (Colace) 100 mg PO DAILY [facility] Last Admin: 07/29/17 09:53 Dose: 100 mg Ferrous Sulfate (Feosol) 324 mg PO TID [facility] Last Admin: 07/29/17 17:36 Dose: 324 mg Heparin Sodium (Porcine) (Heparin) 5,000 units SC Q12 [facility] PRN Reason: Protocol Last Admin: 07/29/17 09:52 Dose: 5,000 units Home Med (Home Med) 1 unit PO DAILY [facility] Last Admin: 07/29/17 09:58 Dose: 1 unit Insulin Human Lispro (Humalog Med) 0 units SC ACHS [facility] PRN Reason: Protocol Last Admin: 07/29/17 17:17 Dose: 5 units Lisinopril (Zestril) 5 mg PO DAILY [facility] Last Admin: 07/29/17 09:53 Dose: 5 mg Multivitamins/Minerals (Therapeutic-M Tab) 1 tab PO 0800 [facility] Last Admin: 07/29/17 08:09 Dose: 1 tab Nystatin (Nystop Topical Powder) 1 gm TOP DAILY [facility] Last Admin: 07/29/17 09:54 Dose: 1 applic Pantoprazole Sodium (Protonix Ec Tab) 40 mg PO ACB [facility] Last Admin: 07/29/17 08:10 Dose: 40 mg Polyethylene Glycol (Miralax) 17 gm PO BID [facility] Last Admin: 07/29/17 17:17 Dose: Not Given Potassium Chloride (K-Dur 20 Meq Er Tab) 40 meq PO HS [facility] Last Admin: 07/29/17 06:42 Dose: Not Given Prednisone (Prednisone Tab) 20 mg PO Q12H [facility] Last Admin: 07/29/17 08:10 Dose: 20 mg Prednisone (Prednisone Tab) 10 mg PO Q12H [facility] Zinc Sulfate (Zinc Sulfate 220 Mg Cap) 220 mg PO DAILY [facility] Last Admin: 07/29/17 09:53 Dose: 220 mg - Labs Labs: 07/29/17 07:00 07/28/17 12:40 PT 13.1 SECONDS (9.4-12.5) H 06/15/17 11:00 INR 1.19 (0.93-1.08) H 06/15/17 11:00 APTT 31.3 Seconds (25.1-36.5) 06/15/17 11:00 - Constitutional Appears: Non-toxic, No Acute Distress - Head Exam Head Exam: ATRAUMATIC, NORMOCEPHALIC - Eye Exam Eye Exam: EOMI, PERRL Pupil Exam: NORMAL ACCOMODATION, PERRL - ENT Exam ENT Exam: Mucous Membranes Moist, Normal External Ear Exam, TM's Normal Bilaterally - Respiratory Exam Respiratory Exam: Clear to Ausculation Bilateral, Rhonchi, NORMAL BREATHING PATTERN. absent: Rales, Wheezes - Cardiovascular Exam Cardiovascular Exam: REGULAR RHYTHM, RRR. absent: +S1, +S2 - GI/Abdominal Exam GI & Abdominal Exam: Soft, Normal Bowel Sounds. absent: Distended, Tenderness - Extremities Exam Extremities Exam: Full ROM, Normal Inspection - Neurological Exam Neurological Exam: Alert, Awake, CN II-XII Intact, Oriented x3 - Psychiatric Exam Psychiatric exam: Normal Affect, Normal Mood - Skin Skin Exam: Intact, Normal Color Assessment and Plan - Assessment and Plan (Free Text) Assessment: 67 yo female with multiple medical issues with PCN allergy diagnosed as a teenager verified by an Dyslexia Teacher. The patient with leukocytosis. Await cultures especially urine cultures. Diabetes and HTN history? Local wound care. Elevated ESR and C-reactive protein. Completed Vancomycin and Aztreonam for antibiotic coverage. UTI with E. coli sensitive to Azactam. Was on Vancomycin for cellulitis IV. For UTI for 5-7 days treatment... completed. Supportive care. Cellulitis appears improved. No new issues. Social issues currently. Homeless at this time. CT scan of chest done. No infiltrates seen. Afebrile the past 24 hours. Mild congestion noted in CT with small pulmonary effusions. No leukocytosis. Slightly elevated procalcitonin (0.66) which is undefined without stronger evidence for pneumonia. When encouraged, she is able to use the incentive spirometer without issues and ambulate with minimal difficulty. UTI with Klebsiella. Sensitive to Cipro. Was on Cipro for 5 day course at 500mg PO BID. Completed the antibiotic course. Stable currently. No new issues. Off antibiotics at this time. Multiple social issues. Chronic cough still. Complains of Vague mild general pains. Awaiting placement. Currently no new infectious disease issues at this time. Thank you for allowing me to participate in the care of the patient, we will follow with you.
[2017-07-29] MEDS: Albuterol-Ipratrop 3 mg / 0.5 (3 ml) UD IH PRN (21:35)
[2017-07-30] MEDS: Insulin Lispro (humaLOG) MEDIUM Coverage SC SCH ×6 (01:13→21:31)
[2017-07-30] MEDS: Arformoterol 15 mcg/2 ml Inh Sol IH SCH ×2 (07:05→19:50)
[2017-07-30] MEDS: Budesonide 0.5 mg/2 ml Inhal Susp UD IH SCH ×2 (07:06→19:50)
[2017-07-30] MEDS: Potassium Chloride 20 mEq ER Tab PO SCH ×3 (07:22→21:45)
[2017-07-30 10:05] LABS: BASO # 0.02 K/mm3 (0.0-2.0); BASO % 0.2 % (0.0-3.0); EOS # 0.5 (0.0-0.7); GRAN # 8.91 (1.4-6.5); GRAN % 78.4 % (50.0-68.0); HEMOGLOBIN 9.8 g/dL (12.0-16.0); LYMPH # 1.3 (1.2-3.4); LYMPH % 11.2 % (22.0-35.0); MEAN CELL VOLUME 84.5 fl (80.0-105.0); MEAN CORPUSCULAR HEMOGLOBIN 25.4 pg (25.0-35.0); MEAN CORPUSCULAR HGB CONC 30.1 g/dl (31.0-37.0); MEAN PLATELET VOLUME 8.9 fl (7.0-11.0); MONO # 0.7 (0.1-0.6); MONO % 6.2 % (1.0-6.0); RBC 3.86 10^6/uL (3.5-6.1); WHITE BLOOD COUNT 11.4 10^3/ul (4.5-11.0)
[2017-07-30 10:06] LABS: ALBUMIN 3.3 g/dL (3.0-4.8); ALT/SGPT 62 U/L (7-56); AST/SGOT 45 U/L (14-36); BLOOD UREA NITROGEN 26 mg/dL (7-21); CALCIUM 7.8 mg/dL (8.4-10.5); GFR AFRICAN-AMERICAN > 60; GFR NON-AFRICAN AMERICAN > 60
[2017-07-30] MEDS: Pantoprazole 40 mg EC Tab PO SCH (10:54)
[2017-07-30] MEDS: POLYETHYLENE GLYCOL 3350 17 GM/Dose PACKET PO SCH ×2 (10:55→18:21)
[2017-07-30] MEDS: Nystatin 100,000 Units/gm Topical Pow(15 gm) TOP SCH (10:55)
[2017-07-30] MEDS: Multivitamin With Minerals Tab PO SCH (10:59)
[2017-07-30] MEDS: VITAMIN C 500MG PO SCH (10:59)
--- NOTE | 2017-07-30 12:30 | CP.PCM.PN ---
<Johanna Burns - Last Filed: 07/30/17 12:25> Subjective - Date & Time of Evaluation Date of Evaluation: 07/30/17 Time of Evaluation: 12:25 - Subjective Subjective: Patient has been seen and examined. No overnight events reported. She denies any diarrhea or SOB. Still complains of cough that improves with medication. Objective - Vital Signs/Intake and Output Vital Signs (last 24 hours): Temp Pulse Resp BP Pulse Ox 98.3 F 87 20 154/83 H 95 07/30/17 07:30 07/30/17 07:30 07/30/17 07:30 07/30/17 07:30 07/30/17 07:30 Intake and Output: 07/30/17 07/30/17 06:59 18:59 Intake Total 240 Balance 240 - Medications Medications: Current Medications Albuterol/Ipratropium (Duoneb 3 Mg/0.5 Mg (3 Ml) Ud) 3 ml IH [id number] PRN PRN Reason: Shortness of Breath Last Admin: 07/29/17 21:35 Dose: 3 ml Arformoterol Tartrate (Brovana) 15 mcg IH [id number] [facility] Last Admin: 07/30/17 07:05 Dose: 15 mcg Benzonatate (Tessalon Perles) 100 mg PO TID [facility] Last Admin: 07/30/17 10:54 Dose: 100 mg Budesonide (Pulmicort Respules) 0.5 mg IH [id number] [facility] Last Admin: 07/30/17 07:06 Dose: 0.5 mg Docusate Sodium (Colace) 100 mg PO DAILY [facility] Last Admin: 07/30/17 10:54 Dose: 100 mg Ferrous Sulfate (Feosol) 324 mg PO TID [facility] Last Admin: 07/30/17 10:54 Dose: 324 mg Guaifenesin (Robitussin) 200 mg PO Q4H PRN PRN Reason: Cough and congestion Heparin Sodium (Porcine) (Heparin) 5,000 units SC Q12 [facility] PRN Reason: Protocol Last Admin: 07/30/17 10:54 Dose: 5,000 units Insulin Human Lispro (Humalog Med) 0 units SC ACHS [facility] PRN Reason: Protocol Last Admin: 07/30/17 12:15 Dose: Not Given Lisinopril (Zestril) 5 mg PO DAILY [facility] Last Admin: 07/30/17 10:54 Dose: 5 mg Multivitamins/Minerals (Therapeutic-M Tab) 1 tab PO 0800 [facility] Last Admin: 07/30/17 10:59 Dose: 1 tab Nystatin (Nystop Topical Powder) 1 gm TOP DAILY [facility] Last Admin: 07/30/17 10:55 Dose: 1 applic Pantoprazole Sodium (Protonix Ec Tab) 40 mg PO ACB [facility] Last Admin: 07/30/17 10:54 Dose: 40 mg Polyethylene Glycol (Miralax) 17 gm PO BID [facility] Last Admin: 07/30/17 10:55 Dose: Not Given Potassium Chloride (K-Dur 20 Meq Er Tab) 40 meq PO HS [facility] Last Admin: 07/30/17 07:22 Dose: Not Given Prednisone (Prednisone Tab) 10 mg PO Q12H [facility] Stop: 07/30/17 23:59 Last Admin: 07/30/17 10:59 Dose: 10 mg Prednisone (Prednisone Tab) 10 mg PO DAILY [facility] Zinc Sulfate (Zinc Sulfate 220 Mg Cap) 220 mg PO DAILY [facility] Last Admin: 07/30/17 10:54 Dose: 220 mg - Labs Labs: 07/30/17 09:45 07/30/17 09:45 PT 13.1 SECONDS (9.4-12.5) H 06/15/17 11:00 INR 1.19 (0.93-1.08) H 06/15/17 11:00 APTT 31.3 Seconds (25.1-36.5) 06/15/17 11:00 - Additional Findings Additional findings: - Constitutional Appears: Non-toxic, No Acute Distress, Older Than Stated Age, Chronically Ill - Head Exam Head Exam: ATRAUMATIC, Swollen face (Likely 2/2 to steroids) - Eye Exam Eye Exam: EOMI, PERRL. absent: Conjunctival injection, Scleral icterus Pupil Exam: PERRL - ENT Exam ENT Exam: Mucous Membranes Moist. No oral thrust noted. - Neck Exam Neck Exam: Full ROM - Respiratory Exam Respiratory Exam: Clear to Ausculation Bilateral. absent: Accessory Muscle Use , Rhonchi, Wheezes, Respiratory Distress - Cardiovascular Exam Cardiovascular Exam: RRR, +S1, +S2. absent: Murmur - GI/Abdominal Exam GI & Abdominal Exam: Soft, Distended, Normal Bowel Sounds. absent: Firm, Guarding, Rigid, Tenderness, Mass, Organomegaly, Rebound - Extremities Exam Extremities Exam: Pedal Edema (Trace). absent: Calf Tenderness, erythema Additional comments: swan neck deformity of hands noted b/l Scaly skin with multiple scab. - Back Exam Back Exam: NORMAL INSPECTION - Neurological Exam Neurological Exam: Alert, Awake, Oriented x3 - Psychiatric Exam Psychiatric exam: Normal Affect - Skin Skin Exam: Dry, Normal Color, Warm Assessment and Plan - Assessment and Plan (Free Text) Assessment: 67 year old female with past medical history of asthma, arthritis, anemia, and obesity, presented with right lower extremity cellulitis and UTI. Patient was found to have cultures positive for Proteus mirabilis and beta hemolytic strep, s/p completed IV course of Vancomycin and Azactam. Patient subsequently found to have Klebsiella UTI s/p adequate treatment with Ciprofloxacin. Patient's course was also complicated by fecal impaction, currently resolved. Pt also found to have intermittent dyspnea, workup revealing a diagnosis of rheumatoid arthritis. Patient is awaiting placement in [facility], pending approval for Medicaid. Plan: SOB/cough (improved): -Likely 2/2 to Asthma Exacerbation vs URI vs RA induced pulmonary fibrosis. -[facility] -Pulm consult added 07/18/17: Dr. Love, Recs Appreciated -C/w inhaled corticosteroids and LABA -RAS positive, titer 1:80, CCP IgG >250 -> Newly diagnosed RA. -RF - IgG and IgM - NEGATIVE. IgA- POSITIVE -BNP 397 - CXR showed no infiltrates. cardiomegaly. -CT Chest on 07/04/17: shows Mildly enlarged axillary lymph nodes and moderate cardiomegaly and mild vascular congestion -ESR (07/22): 76 - Tessalon pereles, Robitussin, and Mucinex for cough - Tylenol prn for fevers - Tapered Prednisone to 10 Q12 - Incentive Spirometry - Chest PT - nightly CPAP Hypokalemia: (Stable) - Cont. [facility] Potassium - Cont to monitor - Urine Sodium - 88 WNL - Urine Potassium - 27.9 WNL HTN: - Pt hypertensive on many episodes in hospital - No hx of htn. - C/w Lisinopril 5 mg PO daily. - Cont to monitor. Abdominal Distension, resolved: - likely 2/2 Constipation/fecal impaction - CT Abdomen Pelvis with PO and IV Contrast (07/18): Interstitial and airspace disease in the lung bases; mild cardiomegaly and atherosclerotic disease; fatty liver; gallstones; possible pyelonephritis; mild ileus, no obstruction; constipation with fecal impaction -Improved with bowel regimen: Miralax bid and daily colace. -Cont to monitor. - Consider adding bulking agent. Hyperglycemia: 2/2 likely steroid induced - ISS, will taper off steroids. Newly diagnosed Rheumatoid Arthritis: - Currently on IV steroids, Motrin for pain control - C/w inhaled corticosteroids and LABA for dyspnea. - Since patient is not experiencing an acute rheumatoid exacerbation, patient can follow up with a scientific informatics leader outpatient for further management ( Methotrexate). No rheumatology consult available in house. Headache (Resolved) - Continue fioricet PRN Normocytic anemia - Hemoglobin stable - Monitor daily GI/DVT ppx: Heparin, Protonix Dispo: Patient awaiting placement in [facility]. Patient seen and discussed with Attending Johanna Burns - PGY1 <Max Liriano - Last Filed: 07/30/17 16:11> Objective - Vital Signs/Intake and Output Vital Signs (last 24 hours): Temp Pulse Resp BP Pulse Ox 98.3 F 87 20 154/83 H 95 07/30/17 07:30 07/30/17 07:30 07/30/17 07:30 07/30/17 07:30 07/30/17 07:30 Intake and Output: 07/30/17 07/30/17 06:59 18:59 Intake Total 240 240 Balance 240 240 - Medications Medications: Current Medications Albuterol/Ipratropium (Duoneb 3 Mg/0.5 Mg (3 Ml) Ud) 3 ml IH [id number] PRN PRN Reason: Shortness of Breath Last Admin: 07/29/17 21:35 Dose: 3 ml Arformoterol Tartrate (Brovana) 15 mcg IH [id number] [facility] Last Admin: 07/30/17 07:05 Dose: 15 mcg Benzonatate (Tessalon Perles) 100 mg PO TID [facility] Last Admin: 07/30/17 13:34 Dose: 100 mg Budesonide (Pulmicort Respules) 0.5 mg IH [id number] [facility] Last Admin: 07/30/17 07:06 Dose: 0.5 mg Docusate Sodium (Colace) 100 mg PO DAILY [facility] Last Admin: 07/30/17 10:54 Dose: 100 mg Ferrous Sulfate (Feosol) 324 mg PO TID [facility] Last Admin: 07/30/17 13:33 Dose: 324 mg Guaifenesin (Robitussin) 200 mg PO Q4H PRN PRN Reason: Cough and congestion Heparin Sodium (Porcine) (Heparin) 5,000 units SC Q12 [facility] PRN Reason: Protocol Last Admin: 07/30/17 10:54 Dose: 5,000 units Insulin Human Lispro (Humalog Med) 0 units SC ACHS [facility] PRN Reason: Protocol Last Admin: 07/30/17 12:15 Dose: Not Given Lisinopril (Zestril) 5 mg PO DAILY [facility] Last Admin: 07/30/17 10:54 Dose: 5 mg Multivitamins/Minerals (Therapeutic-M Tab) 1 tab PO 0800 [facility] Last Admin: 07/30/17 10:59 Dose: 1 tab Nystatin (Nystop Topical Powder) 1 gm TOP DAILY [facility] Last Admin: 07/30/17 10:55 Dose: 1 applic Pantoprazole Sodium (Protonix Ec Tab) 40 mg PO ACB [facility] Last Admin: 07/30/17 10:54 Dose: 40 mg Polyethylene Glycol (Miralax) 17 gm PO BID [facility] Last Admin: 07/30/17 10:55 Dose: Not Given Potassium Chloride (K-Dur 20 Meq Er Tab) 40 meq PO HS [facility] Last Admin: 07/30/17 07:22 Dose: Not Given Prednisone (Prednisone Tab) 10 mg PO Q12H [facility] Stop: 07/30/17 23:59 Last Admin: 07/30/17 10:59 Dose: 10 mg Prednisone (Prednisone Tab) 10 mg PO DAILY [facility] Zinc Sulfate (Zinc Sulfate 220 Mg Cap) 220 mg PO DAILY [facility] Last Admin: 07/30/17 10:54 Dose: 220 mg - Labs Labs: 07/30/17 09:45 07/30/17 09:45 PT 13.1 SECONDS (9.4-12.5) H 06/15/17 11:00 INR 1.19 (0.93-1.08) H 06/15/17 11:00 APTT 31.3 Seconds (25.1-36.5) 06/15/17 11:00 Attending/Attestation - Attestation I have personally seen and examined this patient.: Yes I have fully participated in the care of the patient.: Yes I have reviewed all pertinent clinical information, including history, physical exam and plan: Yes Notes (Text): 07/30/17 16:10 Patient was seen and examined with medical sales associate. Patient is stable at base line.There is no overnight issue.She is feeling better , cough and dyspnea is improving. In Summary 67 F with PMH of asthma, arthritis and anemia who presented with right lower extremity cellulitis and UTI , she is s/p antibiotics, currently off antibiotics.Fecal impaction has resolved, COPD is improving,on Nebs and taperin dose of oral Prednisone. Hypokalemia, is improving on oral supplements, Patient is awaiting placement. Management plan was discussed in detail with patient Education was provided.
--- NOTE | 2017-07-30 16:26 | CP.PCM.PN ---
Subjective - Date & Time of Evaluation Date of Evaluation: 07/30/17 Time of Evaluation: 15:30 - Subjective Subjective: Infectious Disease Follow Up: July 30, 2017 67 yo female presenting with 3 weeks of RLE ulceration, swelling and leaking from the wound as well as multiple falls in the past 3 weeks. The patient has an extensive medical history of asthma, arthritis, vitamin C deficiency, and possible thyroid disease. Draining RLE ulceration... cellulitis improved/resolved. Multiple chronic medical issues. Still with persistent dry cough. Otherwise stable. Mild erythema and excoriation of the folds in the abdomen and under the breasts. Fevers up to 100.8 F two nights ago. Patient making few complaints. The patient has remained in bed. Nursing and aides had noted that the patient's friend "Chris" has encouraged the patient to stay in bed in order to get to a long-term or subacute facility. "Chris" was the person the patient was living with prior to coming to [facility]. Also noted that the patient has had a hacking cough the last couple of days. Afebrile for several days now. CT scan of chest done. CT shows mild vascular congestion and no infiltrates. UTI with Klebsiella earlier in hospitalization but had treatment with Cipro that is now completed. No additional issues. Social Issues. Off antibiotics now. No new significant complaints at this time. Vague abdominal pain complaints. Non-specific mild pain complaints. No significant current infectious disease issues at this time. Objective - Vital Signs/Intake and Output Vital Signs (last 24 hours): Temp Pulse Resp BP Pulse Ox 98.3 F 87 20 154/83 H 95 07/30/17 07:30 07/30/17 07:30 07/30/17 07:30 07/30/17 07:30 07/30/17 07:30 Intake and Output: 07/30/17 07/30/17 06:59 18:59 Intake Total 240 240 Balance 240 240 - Medications Medications: Current Medications Albuterol/Ipratropium (Duoneb 3 Mg/0.5 Mg (3 Ml) Ud) 3 ml IH [id number] PRN PRN Reason: Shortness of Breath Last Admin: 07/29/17 21:35 Dose: 3 ml Arformoterol Tartrate (Brovana) 15 mcg IH [id number] [facility] Last Admin: 07/30/17 07:05 Dose: 15 mcg Benzonatate (Tessalon Perles) 100 mg PO TID [facility] Last Admin: 07/30/17 13:34 Dose: 100 mg Budesonide (Pulmicort Respules) 0.5 mg IH [id number] [facility] Last Admin: 07/30/17 07:06 Dose: 0.5 mg Docusate Sodium (Colace) 100 mg PO DAILY [facility] Last Admin: 07/30/17 10:54 Dose: 100 mg Ferrous Sulfate (Feosol) 324 mg PO TID [facility] Last Admin: 07/30/17 13:33 Dose: 324 mg Guaifenesin (Robitussin) 200 mg PO Q4H PRN PRN Reason: Cough and congestion Heparin Sodium (Porcine) (Heparin) 5,000 units SC Q12 [facility] PRN Reason: Protocol Last Admin: 07/30/17 10:54 Dose: 5,000 units Insulin Human Lispro (Humalog Med) 0 units SC ACHS [facility] PRN Reason: Protocol Last Admin: 07/30/17 12:15 Dose: Not Given Lisinopril (Zestril) 5 mg PO DAILY [facility] Last Admin: 07/30/17 10:54 Dose: 5 mg Multivitamins/Minerals (Therapeutic-M Tab) 1 tab PO 0800 [facility] Last Admin: 07/30/17 10:59 Dose: 1 tab Nystatin (Nystop Topical Powder) 1 gm TOP DAILY [facility] Last Admin: 07/30/17 10:55 Dose: 1 applic Pantoprazole Sodium (Protonix Ec Tab) 40 mg PO ACB [facility] Last Admin: 07/30/17 10:54 Dose: 40 mg Polyethylene Glycol (Miralax) 17 gm PO BID [facility] Last Admin: 07/30/17 10:55 Dose: Not Given Potassium Chloride (K-Dur 20 Meq Er Tab) 40 meq PO HS [facility] Last Admin: 07/30/17 07:22 Dose: Not Given Prednisone (Prednisone Tab) 10 mg PO Q12H [facility] Stop: 07/30/17 23:59 Last Admin: 07/30/17 10:59 Dose: 10 mg Prednisone (Prednisone Tab) 10 mg PO DAILY [facility] Zinc Sulfate (Zinc Sulfate 220 Mg Cap) 220 mg PO DAILY [facility] Last Admin: 07/30/17 10:54 Dose: 220 mg - Labs Labs: 07/30/17 09:45 07/30/17 09:45 PT 13.1 SECONDS (9.4-12.5) H 06/15/17 11:00 INR 1.19 (0.93-1.08) H 06/15/17 11:00 APTT 31.3 Seconds (25.1-36.5) 06/15/17 11:00 - Constitutional Appears: Non-toxic, No Acute Distress - Head Exam Head Exam: ATRAUMATIC, NORMOCEPHALIC - Eye Exam Eye Exam: EOMI, PERRL Pupil Exam: NORMAL ACCOMODATION, PERRL - ENT Exam ENT Exam: Mucous Membranes Moist, Normal External Ear Exam, TM's Normal Bilaterally - Neck Exam Neck Exam: Full ROM, Normal Inspection - Respiratory Exam Respiratory Exam: Clear to Ausculation Bilateral, NORMAL BREATHING PATTERN. absent: Rales, Rhonchi, Wheezes - Cardiovascular Exam Cardiovascular Exam: REGULAR RHYTHM, RRR, +S1, +S2 - GI/Abdominal Exam GI & Abdominal Exam: Soft, Normal Bowel Sounds. absent: Distended, Tenderness - Extremities Exam Extremities Exam: Full ROM, Normal Inspection - Neurological Exam Neurological Exam: Alert, Awake, CN II-XII Intact, Oriented x3 - Psychiatric Exam Psychiatric exam: Normal Affect, Normal Mood - Skin Skin Exam: Intact, Normal Color Assessment and Plan - Assessment and Plan (Free Text) Assessment: 67 yo female with multiple medical issues with PCN allergy diagnosed as a teenager verified by an Product Line Manager. The patient with leukocytosis. Await cultures especially urine cultures. Diabetes and HTN history? Local wound care. Elevated ESR and C-reactive protein. Completed Vancomycin and Aztreonam for antibiotic coverage. UTI with E. coli sensitive to Azactam. Was on Vancomycin for cellulitis IV. For UTI for 5-7 days treatment... completed. Supportive care. Cellulitis appears improved. No new issues. Social issues currently. Homeless at this time. CT scan of chest done. No infiltrates seen. Afebrile the past 24 hours. Mild congestion noted in CT with small pulmonary effusions. No leukocytosis. Slightly elevated procalcitonin (0.66) which is undefined without stronger evidence for pneumonia. When encouraged, she is able to use the incentive spirometer without issues and ambulate with minimal difficulty. UTI with Klebsiella. Sensitive to Cipro. Was on Cipro for 5 day course at 500mg PO BID. Completed the antibiotic course. Stable currently. No new issues. Off antibiotics at this time. Multiple social issues. Chronic cough still. Complains of Vague mild general pains. Awaiting placement. Currently no new infectious disease issues at this time. Thank you for allowing me to participate in the care of the patient, we will follow with you.
[2017-07-31] MEDS: Pantoprazole 40 mg EC Tab PO SCH (06:49)
[2017-07-31] MEDS: Albuterol-Ipratrop 3 mg / 0.5 (3 ml) UD IH PRN ×3 (07:31→19:11)
[2017-07-31] MEDS: Arformoterol 15 mcg/2 ml Inh Sol IH SCH ×2 (07:31→19:11)
[2017-07-31] MEDS: Budesonide 0.5 mg/2 ml Inhal Susp UD IH SCH ×2 (07:31→19:11)
[2017-07-31 07:45] LABS: ALB/GLOB RATIO 0.9 (1.1-1.8); ALBUMIN 3.2 g/dL (3.0-4.8); ALT/SGPT 63 U/L (7-56); AST/SGOT 41 U/L (14-36); BLOOD UREA NITROGEN 23 mg/dL (7-21); CALCIUM 7.6 mg/dL (8.4-10.5); GFR AFRICAN-AMERICAN > 60; GFR NON-AFRICAN AMERICAN > 60
[2017-07-31 08:04] LABS: BASO # 0.03 K/mm3 (0.0-2.0); BASO % 0.3 % (0.0-3.0); EOS # 0.6 (0.0-0.7); GRAN # 8.52 (1.4-6.5); GRAN % 73.7 % (50.0-68.0); HEMOGLOBIN 9.6 g/dL (12.0-16.0); LYMPH # 1.3 (1.2-3.4); LYMPH % 10.9 % (22.0-35.0); MEAN CELL VOLUME 84.6 fl (80.0-105.0); MEAN CORPUSCULAR HEMOGLOBIN 25.5 pg (25.0-35.0); MEAN CORPUSCULAR HGB CONC 30.1 g/dl (31.0-37.0); MEAN PLATELET VOLUME 8.7 fl (7.0-11.0); MONO # 1.2 (0.1-0.6); MONO % 10.1 % (1.0-6.0); RBC 3.77 10^6/uL (3.5-6.1); RED CELL DISTRIBUTION WIDTH 25.5 % (11.5-14.5); WHITE BLOOD COUNT 11.6 10^3/ul (4.5-11.0)
[2017-07-31] MEDS: Insulin Lispro (humaLOG) MEDIUM Coverage SC SCH ×4 (08:28→22:00)
[2017-07-31] MEDS: Multivitamin With Minerals Tab PO SCH (08:34)
[2017-07-31] MEDS: POLYETHYLENE GLYCOL 3350 17 GM/Dose PACKET PO SCH ×2 (10:14→18:07)
[2017-07-31] MEDS: Nystatin 100,000 Units/gm Topical Pow(15 gm) TOP SCH (10:15)
--- NOTE | 2017-07-31 11:20 | CP.PCM.PN ---
<Johanna Burns - Last Filed: 07/31/17 11:17> Subjective - Date & Time of Evaluation Date of Evaluation: 07/31/17 Time of Evaluation: 11:18 - Subjective Subjective: Patient has been seen and examined. No overnight events reported. She denies any diarrhea or SOB. Still complains of cough that improves with medication. Objective - Vital Signs/Intake and Output Vital Signs (last 24 hours): Temp Pulse Resp BP Pulse Ox 98.5 F 82 18 158/82 H 99 07/31/17 08:21 07/31/17 10:13 07/31/17 08:21 07/31/17 10:13 07/31/17 08:21 - Medications Medications: Current Medications Albuterol/Ipratropium (Duoneb 3 Mg/0.5 Mg (3 Ml) Ud) 3 ml IH [id number] PRN PRN Reason: Shortness of Breath Last Admin: 07/31/17 07:31 Dose: 3 ml Arformoterol Tartrate (Brovana) 15 mcg IH [id number] [facility] Last Admin: 07/31/17 07:31 Dose: 15 mcg Benzonatate (Tessalon Perles) 100 mg PO TID [facility] Last Admin: 07/31/17 10:12 Dose: 100 mg Budesonide (Pulmicort Respules) 0.5 mg IH [id number] [facility] Last Admin: 07/31/17 07:31 Dose: 0.5 mg Docusate Sodium (Colace) 100 mg PO DAILY [facility] Last Admin: 07/31/17 10:12 Dose: 100 mg Ferrous Sulfate (Feosol) 324 mg PO TID [facility] Last Admin: 07/31/17 10:12 Dose: 324 mg Guaifenesin (Robitussin) 200 mg PO Q4H PRN PRN Reason: Cough and congestion Heparin Sodium (Porcine) (Heparin) 5,000 units SC Q12 [facility] PRN Reason: Protocol Last Admin: 07/31/17 10:13 Dose: 5,000 units Insulin Human Lispro (Humalog Med) 0 units SC ACHS [facility] PRN Reason: Protocol Last Admin: 07/31/17 08:28 Dose: Not Given Lisinopril (Zestril) 5 mg PO DAILY [facility] Last Admin: 07/31/17 10:13 Dose: 5 mg Multivitamins/Minerals (Therapeutic-M Tab) 1 tab PO 0800 [facility] Last Admin: 07/31/17 08:34 Dose: 1 tab Nystatin (Nystop Topical Powder) 1 gm TOP DAILY [facility] Last Admin: 07/31/17 10:15 Dose: 1 applic Pantoprazole Sodium (Protonix Ec Tab) 40 mg PO ACB [facility] Last Admin: 07/31/17 06:49 Dose: 40 mg Polyethylene Glycol (Miralax) 17 gm PO BID [facility] Last Admin: 07/31/17 10:14 Dose: Not Given Potassium Chloride (K-Dur 20 Meq Er Tab) 40 meq PO HS [facility] Last Admin: 07/30/17 21:45 Dose: Not Given Prednisone (Prednisone Tab) 10 mg PO DAILY [facility] Last Admin: 07/31/17 10:12 Dose: 10 mg Zinc Sulfate (Zinc Sulfate 220 Mg Cap) 220 mg PO DAILY [facility] Last Admin: 07/31/17 10:16 Dose: 220 mg - Labs Labs: 07/31/17 07:05 07/31/17 07:05 PT 13.1 SECONDS (9.4-12.5) H 06/15/17 11:00 INR 1.19 (0.93-1.08) H 06/15/17 11:00 APTT 31.3 Seconds (25.1-36.5) 06/15/17 11:00 - Additional Findings Additional findings: - Constitutional Appears: Non-toxic, No Acute Distress, Older Than Stated Age, Chronically Ill - Head Exam Head Exam: ATRAUMATIC, Swollen face (Likely 2/2 to steroids) - Eye Exam Eye Exam: EOMI, PERRL. absent: Conjunctival injection, Scleral icterus Pupil Exam: PERRL - ENT Exam ENT Exam: Mucous Membranes Moist. No oral thrust noted. - Neck Exam Neck Exam: Full ROM - Respiratory Exam Respiratory Exam: Clear to Ausculation Bilateral. absent: Accessory Muscle Use , Rhonchi, Wheezes, Respiratory Distress - Cardiovascular Exam Cardiovascular Exam: RRR, +S1, +S2. absent: Murmur - GI/Abdominal Exam GI & Abdominal Exam: Soft, Distended, Normal Bowel Sounds. absent: Firm, Guarding, Rigid, Tenderness, Mass, Organomegaly, Rebound - Extremities Exam Extremities Exam: Pedal Edema (Trace). absent: Calf Tenderness, erythema Additional comments: swan neck deformity of hands noted b/l Scaly skin with multiple scab. - Back Exam Back Exam: NORMAL INSPECTION - Neurological Exam Neurological Exam: Alert, Awake, Oriented x3 - Psychiatric Exam Psychiatric exam: Normal Affect - Skin Skin Exam: Dry, Normal Color, Warm Assessment and Plan - Assessment and Plan (Free Text) Assessment: 67 year old female with past medical history of asthma, arthritis, anemia, and obesity, presented with right lower extremity cellulitis and UTI. Patient was found to have cultures positive for Proteus mirabilis and beta hemolytic strep, s/p completed IV course of Vancomycin and Azactam. Patient subsequently found to have Klebsiella UTI s/p adequate treatment with Ciprofloxacin. Patient's course was also complicated by fecal impaction, currently resolved. Pt also found to have intermittent dyspnea, workup revealing a diagnosis of rheumatoid arthritis. Patient is awaiting placement in [facility], pending approval for Medicaid. Plan: SOB/cough (improved): -Likely 2/2 to Asthma Exacerbation vs URI vs RA induced pulmonary fibrosis. -Cont with [facility] Q6H -Pulm consult added 07/18/17: Dr. Love, Recs Appreciated -C/w inhaled corticosteroids and LABA -RAS positive, titer 1:80, CCP IgG >250 -> Newly diagnosed RA. -RF - IgG and IgM - NEGATIVE. IgA- POSITIVE -BNP 397 - CXR showed no infiltrates. cardiomegaly. -CT Chest on 07/04/17: shows Mildly enlarged axillary lymph nodes and moderate cardiomegaly and mild vascular congestion -ESR (07/22): 76 - Tessalon pereles, Robitussin, and Mucinex for cough - Tylenol prn for fevers - 3 days of Prednisone 10 Daily (Day 1 today). - Incentive Spirometry - Chest PT - nightly CPAP Hypokalemia: (Stable) - Cont. [facility] Potassium - Cont to monitor - Urine Sodium - 88 WNL - Urine Potassium - 27.9 WNL HTN: - Pt hypertensive on many episodes in hospital - No hx of htn. - C/w Lisinopril 5 mg PO daily. - Cont to monitor. Abdominal Distension, resolved: - likely 2/2 Constipation/fecal impaction - CT Abdomen Pelvis with PO and IV Contrast (07/18): Interstitial and airspace disease in the lung bases; mild cardiomegaly and atherosclerotic disease; fatty liver; gallstones; possible pyelonephritis; mild ileus, no obstruction; constipation with fecal impaction -Improved with bowel regimen: Miralax bid and daily colace. -Cont to monitor. - Consider adding bulking agent. Hyperglycemia: 2/2 likely steroid induced - ISS, will taper off steroids. Newly diagnosed Rheumatoid Arthritis: - Currently on IV steroids, Motrin for pain control - C/w inhaled corticosteroids and LABA for dyspnea. - Since patient is not experiencing an acute rheumatoid exacerbation, patient can follow up with a thread inspector outpatient for further management ( Methotrexate). No rheumatology consult available in house. Headache (Resolved) - Continue fioricet PRN Normocytic anemia - Hemoglobin stable - Monitor daily GI/DVT ppx: Heparin, Protonix Dispo: Patient awaiting placement in [facility]. Patient seen and discussed with Attending Johanna Burns - PGY1 <Max Liriano - Last Filed: 07/31/17 11:40> Objective - Vital Signs/Intake and Output Vital Signs (last 24 hours): Temp Pulse Resp BP Pulse Ox 98.5 F 82 18 158/82 H 99 07/31/17 08:21 07/31/17 10:13 07/31/17 08:21 07/31/17 10:13 07/31/17 08:21 - Medications Medications: Current Medications Albuterol/Ipratropium (Duoneb 3 Mg/0.5 Mg (3 Ml) Ud) 3 ml IH [id number] PRN PRN Reason: Shortness of Breath Last Admin: 07/31/17 07:31 Dose: 3 ml Arformoterol Tartrate (Brovana) 15 mcg IH [id number] [facility] Last Admin: 07/31/17 07:31 Dose: 15 mcg Benzonatate (Tessalon Perles) 100 mg PO TID [facility] Last Admin: 07/31/17 10:12 Dose: 100 mg Budesonide (Pulmicort Respules) 0.5 mg IH [id number] [facility] Last Admin: 07/31/17 07:31 Dose: 0.5 mg Docusate Sodium (Colace) 100 mg PO DAILY [facility] Last Admin: 07/31/17 10:12 Dose: 100 mg Ferrous Sulfate (Feosol) 324 mg PO TID [facility] Last Admin: 07/31/17 10:12 Dose: 324 mg Guaifenesin (Robitussin) 200 mg PO Q4H PRN PRN Reason: Cough and congestion Heparin Sodium (Porcine) (Heparin) 5,000 units SC Q12 [facility] PRN Reason: Protocol Last Admin: 07/31/17 10:13 Dose: 5,000 units Insulin Human Lispro (Humalog Med) 0 units SC ACHS [facility] PRN Reason: Protocol Last Admin: 07/31/17 08:28 Dose: Not Given Lisinopril (Zestril) 5 mg PO DAILY [facility] Last Admin: 07/31/17 10:13 Dose: 5 mg Multivitamins/Minerals (Therapeutic-M Tab) 1 tab PO 0800 [facility] Last Admin: 07/31/17 08:34 Dose: 1 tab Nystatin (Nystop Topical Powder) 1 gm TOP DAILY [facility] Last Admin: 07/31/17 10:15 Dose: 1 applic Pantoprazole Sodium (Protonix Ec Tab) 40 mg PO ACB [facility] Last Admin: 07/31/17 06:49 Dose: 40 mg Polyethylene Glycol (Miralax) 17 gm PO BID [facility] Last Admin: 07/31/17 10:14 Dose: Not Given Potassium Chloride (K-Dur 20 Meq Er Tab) 40 meq PO HS [facility] Last Admin: 07/30/17 21:45 Dose: Not Given Prednisone (Prednisone Tab) 10 mg PO DAILY [facility] Stop: 08/02/17 10:00 Last Admin: 07/31/17 10:12 Dose: 10 mg Zinc Sulfate (Zinc Sulfate 220 Mg Cap) 220 mg PO DAILY [facility] Last Admin: 07/31/17 10:16 Dose: 220 mg - Labs Labs: 07/31/17 07:05 07/31/17 07:05 PT 13.1 SECONDS (9.4-12.5) H 06/15/17 11:00 INR 1.19 (0.93-1.08) H 06/15/17 11:00 APTT 31.3 Seconds (25.1-36.5) 06/15/17 11:00 Attending/Attestation - Attestation I have personally seen and examined this patient.: Yes I have fully participated in the care of the patient.: Yes I have reviewed all pertinent clinical information, including history, physical exam and plan: Yes Notes (Text): 07/31/17 11:39 Patient was seen and examined with medical support assistant. Agreed with resident assessment and plan. 67 F with PMH of asthma, arthritis and anemia who presented with right lower extremity cellulitis and UTI , she is s/p antibiotics, currently off antibiotics. Fecal impaction has resolved,on laxative. COPD is improving, on Nebs and tapering dose of oral Prednisone. Management plan was discussed in detail with patient Education was provided.
[2017-07-31] MEDS: Potassium Chloride 20 mEq ER Tab PO SCH (21:10)
[2017-08-01] MEDS: Pantoprazole 40 mg EC Tab PO SCH (06:39)
[2017-08-01] MEDS: guaiFENesin 200 mg/10 ml Syrup UD PO PRN (06:41)
[2017-08-01] MEDS: Arformoterol 15 mcg/2 ml Inh Sol IH SCH ×2 (07:07→19:47)
[2017-08-01] MEDS: Budesonide 0.5 mg/2 ml Inhal Susp UD IH SCH ×2 (07:07→19:47)
[2017-08-01] MEDS: Albuterol-Ipratrop 3 mg / 0.5 (3 ml) UD IH PRN (07:07)
[2017-08-01 07:50] LABS: BASO # 0.05 K/mm3 (0.0-2.0); BASO % 0.4 % (0.0-3.0); EOS # 0.9 (0.0-0.7); EOS % 7.4 % (1.5-5.0); GRAN # 7.56 (1.4-6.5); GRAN % 61.5 % (50.0-68.0); HEMOGLOBIN 9.9 g/dL (12.0-16.0); LYMPH # 2.4 (1.2-3.4); LYMPH % 19.5 % (22.0-35.0); MEAN CELL VOLUME 84.5 fl (80.0-105.0); MEAN CORPUSCULAR HEMOGLOBIN 25.2 pg (25.0-35.0); MEAN CORPUSCULAR HGB CONC 29.8 g/dl (31.0-37.0); MEAN PLATELET VOLUME 8.8 fl (7.0-11.0); MONO # 1.4 (0.1-0.6); MONO % 11.2 % (1.0-6.0); RBC 3.93 10^6/uL (3.5-6.1); WHITE BLOOD COUNT 12.3 10^3/ul (4.5-11.0)
[2017-08-01 08:15] LABS: ALBUMIN 3.3 g/dL (3.0-4.8); ALT/SGPT 65 U/L (7-56); AST/SGOT 43 U/L (14-36); BLOOD UREA NITROGEN 22 mg/dL (7-21); CALCIUM 7.5 mg/dL (8.4-10.5); GFR AFRICAN-AMERICAN > 60; GFR NON-AFRICAN AMERICAN > 60
[2017-08-01] MEDS: Insulin Lispro (humaLOG) MEDIUM Coverage SC SCH ×4 (08:17→21:40)
[2017-08-01] MEDS: Multivitamin With Minerals Tab PO SCH (08:17)
[2017-08-01] MEDS: Nystatin 100,000 Units/gm Topical Pow(15 gm) TOP SCH (09:30)
[2017-08-01] MEDS: POLYETHYLENE GLYCOL 3350 17 GM/Dose PACKET PO SCH ×2 (09:31→18:58)
[2017-08-01] MEDS ORDERED: Potassium Chloride 20 mEq ER Tab PO ONE (12:22)
--- NOTE | 2017-08-01 12:27 | CP.PCM.PN ---
<YobanianabelaJosephinelisa - Last Filed: 08/01/17 12:23> Subjective - Date & Time of Evaluation Date of Evaluation: 08/01/17 Time of Evaluation: 12:23 - Subjective Subjective: Patient has been seen and examined. No overnight events reported. She denies any diarrhea or SOB. Her cough continues to improves Objective - Vital Signs/Intake and Output Vital Signs (last 24 hours): Temp Pulse Resp BP Pulse Ox 98.2 F 81 20 148/71 97 08/01/17 07:47 08/01/17 09:18 08/01/17 07:47 08/01/17 09:18 08/01/17 07:47 Intake and Output: 08/01/17 08/01/17 06:59 18:59 Intake Total 540 Balance 540 - Medications Medications: Current Medications Albuterol/Ipratropium (Duoneb 3 Mg/0.5 Mg (3 Ml) Ud) 3 ml IH [id number] PRN PRN Reason: Shortness of Breath Last Admin: 08/01/17 07:07 Dose: 3 ml Arformoterol Tartrate (Brovana) 15 mcg IH [id number] [facility] Last Admin: 08/01/17 07:07 Dose: 15 mcg Benzonatate (Tessalon Perles) 100 mg PO TID [facility] Last Admin: 08/01/17 09:29 Dose: 100 mg Budesonide (Pulmicort Respules) 0.5 mg IH [id number] [facility] Last Admin: 08/01/17 07:07 Dose: 0.5 mg Docusate Sodium (Colace) 100 mg PO DAILY [facility] Last Admin: 08/01/17 09:31 Dose: Not Given Ferrous Sulfate (Feosol) 324 mg PO TID [facility] Last Admin: 08/01/17 09:18 Dose: 324 mg Guaifenesin (Robitussin) 200 mg PO Q4H PRN PRN Reason: Cough and congestion Last Admin: 08/01/17 06:41 Dose: 200 mg Heparin Sodium (Porcine) (Heparin) 5,000 units SC Q12 [facility] PRN Reason: Protocol Last Admin: 08/01/17 09:29 Dose: 5,000 units Ibuprofen (Motrin Tab) 600 mg PO Q6H PRN PRN Reason: Pain, severe (8-10) Last Admin: 07/31/17 16:39 Dose: 600 mg Insulin Human Lispro (Humalog Med) 0 units SC ACHS [facility] PRN Reason: Protocol Last Admin: 08/01/17 08:17 Dose: Not Given Lisinopril (Zestril) 5 mg PO DAILY [facility] Last Admin: 08/01/17 09:18 Dose: 5 mg Multivitamins/Minerals (Therapeutic-M Tab) 1 tab PO 0800 [facility] Last Admin: 08/01/17 08:17 Dose: 1 tab Nystatin (Nystop Topical Powder) 1 gm TOP DAILY [facility] Last Admin: 08/01/17 09:30 Dose: 1 applic Pantoprazole Sodium (Protonix Ec Tab) 40 mg PO ACB [facility] Last Admin: 08/01/17 06:39 Dose: 40 mg Polyethylene Glycol (Miralax) 17 gm PO BID [facility] Last Admin: 08/01/17 09:31 Dose: Not Given Potassium Chloride (K-Dur 20 Meq Er Tab) 40 meq PO HS [facility] Last Admin: 07/31/17 21:10 Dose: 40 meq Potassium Chloride (K-Dur 20 Meq Er Tab) 40 meq PO ONCE ONE Stop: 08/01/17 12:23 Prednisone (Prednisone Tab) 10 mg PO DAILY [facility] Stop: 08/02/17 10:00 Last Admin: 08/01/17 09:29 Dose: 10 mg Zinc Sulfate (Zinc Sulfate 220 Mg Cap) 220 mg PO DAILY [facility] Last Admin: 08/01/17 09:29 Dose: 220 mg - Labs Labs: 08/01/17 07:20 08/01/17 07:20 PT 13.1 SECONDS (9.4-12.5) H 06/15/17 11:00 INR 1.19 (0.93-1.08) H 06/15/17 11:00 APTT 31.3 Seconds (25.1-36.5) 06/15/17 11:00 - Additional Findings Additional findings: - Constitutional Appears: Non-toxic, No Acute Distress, Older Than Stated Age, Chronically Ill - Head Exam Head Exam: ATRAUMATIC, Swollen face (Likely 2/2 to steroids) - Eye Exam Eye Exam: EOMI, PERRL. absent: Conjunctival injection, Scleral icterus Pupil Exam: PERRL - ENT Exam ENT Exam: Mucous Membranes Moist. No oral thrust noted. - Neck Exam Neck Exam: Full ROM - Respiratory Exam Respiratory Exam: Clear to Ausculation Bilateral. absent: Accessory Muscle Use , Rhonchi, Wheezes, Respiratory Distress - Cardiovascular Exam Cardiovascular Exam: RRR, +S1, +S2. absent: Murmur - GI/Abdominal Exam GI & Abdominal Exam: Soft, Distended, Normal Bowel Sounds. absent: Firm, Guarding, Rigid, Tenderness, Mass, Organomegaly, Rebound - Extremities Exam Extremities Exam: Pedal Edema (Trace). absent: Calf Tenderness, erythema Additional comments: swan neck deformity of hands noted b/l Scaly skin with multiple scab. - Back Exam Back Exam: NORMAL INSPECTION - Neurological Exam Neurological Exam: Alert, Awake, Oriented x3 - Psychiatric Exam Psychiatric exam: Normal Affect - Skin Skin Exam: Dry, Normal Color, Warm Assessment and Plan - Assessment and Plan (Free Text) Assessment: 67 year old female with past medical history of asthma, arthritis, anemia, and obesity, presented with right lower extremity cellulitis and UTI. Patient was found to have cultures positive for Proteus mirabilis and beta hemolytic strep, s/p completed IV course of Vancomycin and Azactam. Patient subsequently found to have Klebsiella UTI s/p adequate treatment with Ciprofloxacin. Patient's course was also complicated by fecal impaction, currently resolved. Pt also found to have intermittent dyspnea, workup revealing a diagnosis of rheumatoid arthritis. Patient is awaiting placement in [facility], pending approval for Medicaid. Plan: SOB/cough (improved): -Likely 2/2 to Asthma Exacerbation vs URI vs RA induced pulmonary fibrosis. -Cont with [facility] Q6H -Pulm consult added 07/18/17: Dr. Love, Recs Appreciated -C/w inhaled corticosteroids and LABA -RAS positive, titer 1:80, CCP IgG >250 -> Newly diagnosed RA. -RF - IgG and IgM - NEGATIVE. IgA- POSITIVE -BNP 397 - CXR showed no infiltrates. cardiomegaly. -CT Chest on 07/04/17: shows Mildly enlarged axillary lymph nodes and moderate cardiomegaly and mild vascular congestion -ESR (07/22): 76 - Tessalon pereles, Robitussin, and Mucinex for cough - Tylenol prn for fevers - 3 days of Prednisone 10 Daily (Day 2 today). - Incentive Spirometry - Chest PT - nightly CPAP Hypokalemia: - Cont. [facility] Potassium - Cont to monitor - Urine Sodium - 88 WNL - Urine Potassium - 27.9 WNL - Potassium 3.3 today, Replenished HTN: - Pt hypertensive on many episodes in hospital - No hx of htn. - C/w Lisinopril 5 mg PO daily. - Cont to monitor. Abdominal Distension, resolved: - likely 2/2 Constipation/fecal impaction - CT Abdomen Pelvis with PO and IV Contrast (07/18): Interstitial and airspace disease in the lung bases; mild cardiomegaly and atherosclerotic disease; fatty liver; gallstones; possible pyelonephritis; mild ileus, no obstruction; constipation with fecal impaction -Improved with bowel regimen: Miralax bid and daily colace. -Cont to monitor. - Consider adding bulking agent. Hyperglycemia: 2/2 likely steroid induced - ISS, will taper off steroids. Newly diagnosed Rheumatoid Arthritis: - Currently on IV steroids, Motrin for pain control - C/w inhaled corticosteroids and LABA for dyspnea. - Since patient is not experiencing an acute rheumatoid exacerbation, patient can follow up with a wax pattern coater outpatient for further management ( Methotrexate). No rheumatology consult available in house. Headache (Resolved) - Continue fioricet PRN Normocytic anemia - Hemoglobin stable - Monitor daily GI/DVT ppx: Heparin, Protonix Dispo: Patient awaiting placement in [facility]. Patient seen and discussed with Attending Johanna Burns - PGY1 <Juan Rodriguez - Last Filed: 08/01/17 14:00> Objective - Vital Signs/Intake and Output Vital Signs (last 24 hours): Temp Pulse Resp BP Pulse Ox 98.2 F 81 20 148/71 97 08/01/17 07:47 08/01/17 09:18 08/01/17 07:47 08/01/17 09:18 08/01/17 07:47 Intake and Output: 08/01/17 08/01/17 06:59 18:59 Intake Total 540 Balance 540 - Medications Medications: Current Medications Albuterol/Ipratropium (Duoneb 3 Mg/0.5 Mg (3 Ml) Ud) 3 ml IH [id number] PRN PRN Reason: Shortness of Breath Last Admin: 08/01/17 07:07 Dose: 3 ml Arformoterol Tartrate (Brovana) 15 mcg IH [id number] [facility] Last Admin: 08/01/17 07:07 Dose: 15 mcg Benzonatate (Tessalon Perles) 100 mg PO TID [facility] Last Admin: 08/01/17 09:29 Dose: 100 mg Budesonide (Pulmicort Respules) 0.5 mg IH [id number] [facility] Last Admin: 08/01/17 07:07 Dose: 0.5 mg Docusate Sodium (Colace) 100 mg PO DAILY [facility] Last Admin: 08/01/17 09:31 Dose: Not Given Ferrous Sulfate (Feosol) 324 mg PO TID [facility] Last Admin: 08/01/17 09:18 Dose: 324 mg Guaifenesin (Robitussin) 200 mg PO Q4H PRN PRN Reason: Cough and congestion Last Admin: 08/01/17 06:41 Dose: 200 mg Heparin Sodium (Porcine) (Heparin) 5,000 units SC Q12 [facility] PRN Reason: Protocol Last Admin: 08/01/17 09:29 Dose: 5,000 units Ibuprofen (Motrin Tab) 600 mg PO Q6H PRN PRN Reason: Pain, severe (8-10) Last Admin: 07/31/17 16:39 Dose: 600 mg Insulin Human Lispro (Humalog Med) 0 units SC ACHS [facility] PRN Reason: Protocol Last Admin: 08/01/17 12:26 Dose: Not Given Lisinopril (Zestril) 5 mg PO DAILY [facility] Last Admin: 08/01/17 09:18 Dose: 5 mg Multivitamins/Minerals (Therapeutic-M Tab) 1 tab PO 0800 [facility] Last Admin: 08/01/17 08:17 Dose: 1 tab Nystatin (Nystop Topical Powder) 1 gm TOP DAILY [facility] Last Admin: 08/01/17 09:30 Dose: 1 applic Pantoprazole Sodium (Protonix Ec Tab) 40 mg PO ACB [facility] Last Admin: 08/01/17 06:39 Dose: 40 mg Polyethylene Glycol (Miralax) 17 gm PO BID [facility] Last Admin: 08/01/17 09:31 Dose: Not Given Potassium Chloride (K-Dur 20 Meq Er Tab) 40 meq PO HS [facility] Last Admin: 07/31/17 21:10 Dose: 40 meq Prednisone (Prednisone Tab) 10 mg PO DAILY [facility] Stop: 08/02/17 10:00 Last Admin: 08/01/17 09:29 Dose: 10 mg Zinc Sulfate (Zinc Sulfate 220 Mg Cap) 220 mg PO DAILY [facility] Last Admin: 08/01/17 09:29 Dose: 220 mg - Labs Labs: 08/01/17 07:20 08/01/17 07:20 PT 13.1 SECONDS (9.4-12.5) H 06/15/17 11:00 INR 1.19 (0.93-1.08) H 06/15/17 11:00 APTT 31.3 Seconds (25.1-36.5) 06/15/17 11:00 Attending/Attestation - Attestation I have personally seen and examined this patient.: Yes I have fully participated in the care of the patient.: Yes I have reviewed all pertinent clinical information, including history, physical exam and plan: Yes Notes (Text): 08/01/17 13:57 67 year old female with past medical history of asthma and arthritis who initially presented with UTI and right LE cellulitis now s/p antibiotics. She is on tapering po steroids and duonebs for asthma/COPD. She is on colace and miralax for constipation. Will replete and repeat potassium. Patient is currently awaiting placement to [facility]. Juan Rodriguez MD Hospitalist.
[2017-08-01] MEDS: Potassium Chloride 20 mEq ER Tab PO SCH (21:40)
[2017-08-02] MEDS: Pantoprazole 40 mg EC Tab PO SCH (06:40)
[2017-08-02] MEDS: Arformoterol 15 mcg/2 ml Inh Sol IH SCH ×2 (07:16→20:02)
[2017-08-02] MEDS: Budesonide 0.5 mg/2 ml Inhal Susp UD IH SCH ×2 (07:16→20:02)
--- NOTE | 2017-08-02 08:11 | CP.PCM.PN ---
<Vivian Guerrero - Last Filed: 08/02/17 15:17> Subjective - Date & Time of Evaluation Date of Evaluation: 08/02/17 Time of Evaluation: 08:08 - Subjective Subjective: PGY-2 [place] note for hospitalist service patient seen and examined at bedside. No acute distress. Nurse reports no acute events overnight. Nurse states that patient is no compliant with bipap overnight. Patient states that she does not like the machine, and the mask is too heavy. She has no other complaints, she denies chest pain, sob, cough, abd pain, n/v, diarrhea, last bowel movement was last night. She is tolerating diet. Objective - Vital Signs/Intake and Output Vital Signs (last 24 hours): Temp Pulse Resp BP Pulse Ox 98.6 F 81 22 120/61 93 L 08/02/17 07:30 08/02/17 07:30 08/02/17 07:30 08/02/17 07:30 08/02/17 07:30 Intake and Output: 08/02/17 08/02/17 06:59 18:59 Intake Total 760 Balance 760 - Medications Medications: Current Medications Albuterol/Ipratropium (Duoneb 3 Mg/0.5 Mg (3 Ml) Ud) 3 ml IH [id number] PRN PRN Reason: Shortness of Breath Last Admin: 08/01/17 07:07 Dose: 3 ml Arformoterol Tartrate (Brovana) 15 mcg IH [id number] [facility] Last Admin: 08/02/17 07:16 Dose: 15 mcg Benzonatate (Tessalon Perles) 100 mg PO TID [facility] Last Admin: 08/01/17 18:57 Dose: 100 mg Budesonide (Pulmicort Respules) 0.5 mg IH [id number] [facility] Last Admin: 08/02/17 07:16 Dose: 0.5 mg Docusate Sodium (Colace) 100 mg PO DAILY [facility] Last Admin: 08/01/17 09:31 Dose: Not Given Ferrous Sulfate (Feosol) 324 mg PO TID [facility] Last Admin: 08/01/17 18:58 Dose: 324 mg Guaifenesin (Robitussin) 200 mg PO Q4H PRN PRN Reason: Cough and congestion Last Admin: 08/01/17 06:41 Dose: 200 mg Heparin Sodium (Porcine) (Heparin) 5,000 units SC Q12 [facility] PRN Reason: Protocol Last Admin: 08/01/17 21:41 Dose: 5,000 units Ibuprofen (Motrin Tab) 600 mg PO Q6H PRN PRN Reason: Pain, severe (8-10) Last Admin: 07/31/17 16:39 Dose: 600 mg Insulin Human Lispro (Humalog Med) 0 units SC ACHS [facility] PRN Reason: Protocol Last Admin: 08/01/17 21:40 Dose: Not Given Lisinopril (Zestril) 5 mg PO DAILY [facility] Last Admin: 08/01/17 09:18 Dose: 5 mg Multivitamins/Minerals (Therapeutic-M Tab) 1 tab PO 0800 [facility] Last Admin: 08/01/17 08:17 Dose: 1 tab Nystatin (Nystop Topical Powder) 1 gm TOP DAILY [facility] Last Admin: 08/01/17 09:30 Dose: 1 applic Pantoprazole Sodium (Protonix Ec Tab) 40 mg PO ACB [facility] Last Admin: 08/02/17 06:40 Dose: 40 mg Polyethylene Glycol (Miralax) 17 gm PO BID [facility] Last Admin: 08/01/17 18:58 Dose: Not Given Potassium Chloride (K-Dur 20 Meq Er Tab) 40 meq PO HS [facility] Last Admin: 08/01/17 21:40 Dose: 40 meq Prednisone (Prednisone Tab) 10 mg PO DAILY [facility] Stop: 08/02/17 10:00 Last Admin: 08/01/17 09:29 Dose: 10 mg Zinc Sulfate (Zinc Sulfate 220 Mg Cap) 220 mg PO DAILY [facility] Last Admin: 08/01/17 09:29 Dose: 220 mg - Labs Labs: 08/01/17 07:20 08/01/17 07:20 PT 13.1 SECONDS (9.4-12.5) H 06/15/17 11:00 INR 1.19 (0.93-1.08) H 06/15/17 11:00 APTT 31.3 Seconds (25.1-36.5) 06/15/17 11:00 - Constitutional Appears: Well, No Acute Distress - Head Exam Head Exam: ATRAUMATIC, NORMAL INSPECTION, NORMOCEPHALIC - Eye Exam Eye Exam: EOMI, Normal appearance - ENT Exam ENT Exam: Mucous Membranes Moist - Respiratory Exam Respiratory Exam: Clear to Ausculation Bilateral, NORMAL BREATHING PATTERN. absent: Prolonged Expiratory Phase, Rhonchi, Wheezes, Respiratory Distress, Stridor - Cardiovascular Exam Cardiovascular Exam: REGULAR RHYTHM, +S1, +S2. absent: Tachycardia, Murmur - GI/Abdominal Exam GI & Abdominal Exam: Soft, Normal Bowel Sounds. absent: Distended, Firm, Guarding - Neurological Exam Neurological Exam: Alert, Awake, Oriented x3 - Skin Skin Exam: Dry, Intact, Normal Color, Warm Assessment and Plan - Assessment and Plan (Free Text) Assessment: 67 year old female with past medical history of asthma, arthritis, anemia, and obesity, presented with right lower extremity cellulitis and UTI. Patient was found to have cultures positive for Proteus mirabilis and beta hemolytic strep, s/p completed IV course of Vancomycin and Azactam. Patient subsequently found to have Klebsiella UTI s/p adequate treatment with Ciprofloxacin. Patient's course was also complicated by fecal impaction, currently resolved. Pt also found to have intermittent dyspnea, workup revealing a diagnosis of rheumatoid arthritis. Patient is awaiting placement in [facility], pending approval for Medicaid. Plan: 1. SOB/cough (improved): -Likely 2/2 to Asthma Exacerbation vs URI vs RA induced pulmonary fibrosis. -[facility] -[facility]ulm consult added 07/18/17: Dr. Love, Recs Appreciated -Continue with inhaled corticosteroids and LABA -RAS positive, titer 1:80, CCP IgG >250 -> Newly diagnosed RA. -RF - IgG and IgM - NEGATIVE. IgA- POSITIVE -BNP 397 - CXR showed no infiltrates. cardiomegaly. - CT Chest on 07/04/17: shows Mildly enlarged axillary lymph nodes and moderate cardiomegaly and mild vascular congestion - ESR (07/22): 76 elevated - Tessalon pereles, Robitussin, and Mucinex for cough - Tylenol prn for fevers - 3 days of Prednisone 10 Daily (Day 3 today). - Incentive Spirometry - Chest PT - nightly CPAP 2. Hypokalemia: - Cont. [facility] Potassium - Cont to monitor every other day - Urine Sodium - 88 WNL - Urine Potassium - 27.9 WNL 3. HTN: - Patient hypertensive on many episodes in hospital - No hx of htn. - Cont Lisinopril 5 mg PO daily. - Cont to monitor. 4. Abdominal Distension, resolved: - likely 2/2 Constipation/fecal impaction - CT Abdomen Pelvis with PO and IV Contrast (07/18): Interstitial and airspace disease in the lung bases; mild cardiomegaly and atherosclerotic disease; fatty liver; gallstones; possible pyelonephritis; mild ileus, no obstruction; constipation with fecal impaction -Improved with bowel regimen: Miralax bid and daily colace. -Cont to monitor. - Consider adding bulking agent. 5. Hyperglycemia: - 2/2 likely steroid induced - ISS, will taper off steroids. 6. Newly diagnosed Rheumatoid Arthritis: - Currently on IV steroids, Motrin for pain control - Cont inhaled corticosteroids and LABA for dyspnea. - Since patient is not experiencing an acute rheumatoid exacerbation, patient can follow up with a validation analyst outpatient for further management ( Methotrexate). No rheumatology consult available in house. 7. Headache (Resolved) - Continue fioricet PRN 8. Normocytic anemia - Hemoglobin stable - Monitor daily GI/DVT ppx: Heparin, Protonix Dispo: Patient awaiting placement in [facility]. Patient seen and discussed with Attending <Juan Rodriguez - Last Filed: 08/02/17 16:07> Objective - Vital Signs/Intake and Output Vital Signs (last 24 hours): Temp Pulse Resp BP Pulse Ox 98.6 F 81 22 120/61 93 L 08/02/17 07:30 08/02/17 10:23 08/02/17 07:30 08/02/17 10:23 08/02/17 07:30 Intake and Output: 08/02/17 08/02/17 06:59 18:59 Intake Total 760 420 Balance 760 420 - Medications Medications: Current Medications Albuterol/Ipratropium (Duoneb 3 Mg/0.5 Mg (3 Ml) Ud) 3 ml IH [id number] PRN PRN Reason: Shortness of Breath Last Admin: 08/01/17 07:07 Dose: 3 ml Arformoterol Tartrate (Brovana) 15 mcg IH [id number] [facility] Last Admin: 08/02/17 07:16 Dose: 15 mcg Benzonatate (Tessalon Perles) 100 mg PO TID [facility] Last Admin: 08/02/17 15:05 Dose: 100 mg Budesonide (Pulmicort Respules) 0.5 mg IH [id number] [facility] Last Admin: 08/02/17 07:16 Dose: 0.5 mg Docusate Sodium (Colace) 100 mg PO DAILY [facility] Last Admin: 08/02/17 10:25 Dose: 100 mg Ferrous Sulfate (Feosol) 324 mg PO TID [facility] Last Admin: 08/02/17 15:05 Dose: 324 mg Guaifenesin (Robitussin) 200 mg PO Q4H PRN PRN Reason: Cough and congestion Last Admin: 08/01/17 06:41 Dose: 200 mg Heparin Sodium (Porcine) (Heparin) 5,000 units SC Q12 [facility] PRN Reason: Protocol Last Admin: 08/02/17 10:26 Dose: 5,000 units Ibuprofen (Motrin Tab) 600 mg PO Q6H PRN PRN Reason: Pain, severe (8-10) Last Admin: 07/31/17 16:39 Dose: 600 mg Insulin Human Lispro (Humalog Med) 0 units SC ACHS [facility] PRN Reason: Protocol Last Admin: 08/02/17 13:18 Dose: Not Given Lisinopril (Zestril) 5 mg PO DAILY [facility] Last Admin: 08/02/17 10:23 Dose: 5 mg Multivitamins/Minerals (Therapeutic-M Tab) 1 tab PO 0800 [facility] Last Admin: 08/02/17 08:36 Dose: 1 tab Nystatin (Nystop Topical Powder) 1 gm TOP DAILY [facility] Last Admin: 08/02/17 13:19 Dose: 1 applic Pantoprazole Sodium (Protonix Ec Tab) 40 mg PO ACB [facility] Last Admin: 08/02/17 06:40 Dose: 40 mg Polyethylene Glycol (Miralax) 17 gm PO BID [facility] Last Admin: 08/02/17 10:12 Dose: Not Given Potassium Chloride (K-Dur 20 Meq Er Tab) 40 meq PO HS [facility] Last Admin: 08/01/17 21:40 Dose: 40 meq Zinc Sulfate (Zinc Sulfate 220 Mg Cap) 220 mg PO DAILY [facility] Last Admin: 08/02/17 10:25 Dose: 220 mg - Labs Labs: 08/02/17 07:30 08/02/17 07:30 PT 13.1 SECONDS (9.4-12.5) H 06/15/17 11:00 INR 1.19 (0.93-1.08) H 06/15/17 11:00 APTT 31.3 Seconds (25.1-36.5) 06/15/17 11:00 Attending/Attestation - Attestation I have personally seen and examined this patient.: Yes I have fully participated in the care of the patient.: Yes I have reviewed all pertinent clinical information, including history, physical exam and plan: Yes Notes (Text): 08/02/17 16:06 67 year old female with past medical history of asthma and arthritis who initially presented with UTI and right LE cellulitis now s/p antibiotics. She is on tapering po steroids and duonebs for asthma/COPD and colace and miralax for constipation. She was supplemented for hypokalemia. Will continue to monitor. Patient is currently awaiting placement to [facility]. Juan Rodriguez MD Hospitalist.
[2017-08-02 08:16] LABS: BASO # 0.06 K/mm3 (0.0-2.0); BASO % 0.5 % (0.0-3.0); EOS # 1.1 (0.0-0.7); EOS % 8.7 % (1.5-5.0); GRAN # 7.94 (1.4-6.5); GRAN % 61.7 % (50.0-68.0); HEMOGLOBIN 9.9 g/dL (12.0-16.0); LYMPH # 2.6 (1.2-3.4); LYMPH % 20.1 % (22.0-35.0); MEAN CELL VOLUME 84.8 fl (80.0-105.0); MEAN CORPUSCULAR HEMOGLOBIN 25.9 pg (25.0-35.0); MEAN CORPUSCULAR HGB CONC 30.6 g/dl (31.0-37.0); MEAN PLATELET VOLUME 8.8 fl (7.0-11.0); MONO # 1.2 (0.1-0.6); RBC 3.82 10^6/uL (3.5-6.1); RED CELL DISTRIBUTION WIDTH 26.2 % (11.5-14.5); WHITE BLOOD COUNT 12.9 10^3/ul (4.5-11.0)
[2017-08-02 08:29] LABS: ALB/GLOB RATIO 0.9 (1.1-1.8); ALBUMIN 3.2 g/dL (3.0-4.8); ALT/SGPT 64 U/L (7-56); AST/SGOT 30 U/L (14-36); BLOOD UREA NITROGEN 18 mg/dL (7-21); CALCIUM 7.5 mg/dL (8.4-10.5); GFR AFRICAN-AMERICAN > 60; GFR NON-AFRICAN AMERICAN > 60
[2017-08-02] MEDS: Insulin Lispro (humaLOG) MEDIUM Coverage SC SCH ×4 (08:33→22:47)
[2017-08-02] MEDS: Multivitamin With Minerals Tab PO SCH (08:36)
[2017-08-02] MEDS: POLYETHYLENE GLYCOL 3350 17 GM/Dose PACKET PO SCH ×2 (10:12→17:40)
[2017-08-02] MEDS: Nystatin 100,000 Units/gm Topical Pow(15 gm) TOP SCH (13:19)
--- NOTE | 2017-08-02 14:03 | CP.PCM.PN ---
Subjective - Date & Time of Evaluation Date of Evaluation: 08/02/17 Time of Evaluation: 13:30 - Subjective Subjective: Infectious Disease Follow Up: August 02, 2017 67 yo female presenting with 3 weeks of RLE ulceration, swelling and leaking from the wound as well as multiple falls in the past 3 weeks. The patient has an extensive medical history of asthma, arthritis, vitamin C deficiency, and possible thyroid disease. Draining RLE ulceration... cellulitis improved/resolved. Multiple chronic medical issues. Still with persistent dry cough. Otherwise stable. Mild erythema and excoriation of the folds in the abdomen and under the breasts. Fevers up to 100.8 F two nights ago. Patient making few complaints. The patient has remained in bed. Nursing and aides had noted that the patient's friend "Chris" has encouraged the patient to stay in bed in order to get to a longterm or subacute facility. "Chris" was the person the patient was living with prior to coming to [facility]. Also noted that the patient has had a hacking cough the last couple of days. Afebrile for several days now. CT scan of chest done. CT shows mild vascular congestion and no infiltrates. UTI with Klebsiella earlier in hospitalization but had treatment with Cipro that is now completed. No additional issues. Social Issues. Off antibiotics now. No new significant complaints at this time. Vague abdominal pain complaints. Non-specific mild pain complaints. No significant current infectious disease issues at this time. Objective - Vital Signs/Intake and Output Vital Signs (last 24 hours): Temp Pulse Resp BP Pulse Ox 98.6 F 81 22 120/61 93 L 08/02/17 07:30 08/02/17 10:23 08/02/17 07:30 08/02/17 10:23 08/02/17 07:30 Intake and Output: 08/02/17 08/02/17 06:59 18:59 Intake Total 760 420 Balance 760 420 - Medications Medications: Current Medications Albuterol/Ipratropium (Duoneb 3 Mg/0.5 Mg (3 Ml) Ud) 3 ml IH [id number] PRN PRN Reason: Shortness of Breath Last Admin: 08/01/17 07:07 Dose: 3 ml Arformoterol Tartrate (Brovana) 15 mcg IH [id number] [facility] Last Admin: 08/02/17 07:16 Dose: 15 mcg Benzonatate (Tessalon Perles) 100 mg PO TID [facility] Last Admin: 08/02/17 10:26 Dose: 100 mg Budesonide (Pulmicort Respules) 0.5 mg IH [id number] [facility] Last Admin: 08/02/17 07:16 Dose: 0.5 mg Docusate Sodium (Colace) 100 mg PO DAILY [facility] Last Admin: 08/02/17 10:25 Dose: 100 mg Ferrous Sulfate (Feosol) 324 mg PO TID [facility] Last Admin: 08/02/17 10:25 Dose: 324 mg Guaifenesin (Robitussin) 200 mg PO Q4H PRN PRN Reason: Cough and congestion Last Admin: 08/01/17 06:41 Dose: 200 mg Heparin Sodium (Porcine) (Heparin) 5,000 units SC Q12 [facility] PRN Reason: Protocol Last Admin: 08/02/17 10:26 Dose: 5,000 units Ibuprofen (Motrin Tab) 600 mg PO Q6H PRN PRN Reason: Pain, severe (8-10) Last Admin: 07/31/17 16:39 Dose: 600 mg Insulin Human Lispro (Humalog Med) 0 units SC ACHS [facility] PRN Reason: Protocol Last Admin: 08/02/17 13:18 Dose: Not Given Lisinopril (Zestril) 5 mg PO DAILY [facility] Last Admin: 08/02/17 10:23 Dose: 5 mg Multivitamins/Minerals (Therapeutic-M Tab) 1 tab PO 0800 [facility] Last Admin: 08/02/17 08:36 Dose: 1 tab Nystatin (Nystop Topical Powder) 1 gm TOP DAILY [facility] Last Admin: 08/02/17 13:19 Dose: 1 applic Pantoprazole Sodium (Protonix Ec Tab) 40 mg PO ACB [facility] Last Admin: 08/02/17 06:40 Dose: 40 mg Polyethylene Glycol (Miralax) 17 gm PO BID [facility] Last Admin: 08/02/17 10:12 Dose: Not Given Potassium Chloride (K-Dur 20 Meq Er Tab) 40 meq PO HS [facility] Last Admin: 08/01/17 21:40 Dose: 40 meq Zinc Sulfate (Zinc Sulfate 220 Mg Cap) 220 mg PO DAILY [facility] Last Admin: 08/02/17 10:25 Dose: 220 mg - Labs Labs: 08/02/17 07:30 08/02/17 07:30 PT 13.1 SECONDS (9.4-12.5) H 06/15/17 11:00 INR 1.19 (0.93-1.08) H 06/15/17 11:00 APTT 31.3 Seconds (25.1-36.5) 06/15/17 11:00 - Constitutional Appears: Non-toxic, No Acute Distress - Head Exam Head Exam: ATRAUMATIC, NORMOCEPHALIC - Eye Exam Eye Exam: EOMI, PERRL Pupil Exam: NORMAL ACCOMODATION, PERRL - ENT Exam ENT Exam: Mucous Membranes Moist, Normal External Ear Exam, TM's Normal Bilaterally - Neck Exam Neck Exam: Full ROM, Normal Inspection - Respiratory Exam Respiratory Exam: Clear to Ausculation Bilateral, NORMAL BREATHING PATTERN. absent: Rales, Rhonchi, Wheezes - Cardiovascular Exam Cardiovascular Exam: REGULAR RHYTHM, RRR, +S1, +S2 - GI/Abdominal Exam GI & Abdominal Exam: Soft, Normal Bowel Sounds. absent: Distended, Tenderness - Extremities Exam Extremities Exam: Full ROM, Normal Inspection - Neurological Exam Neurological Exam: Alert, Awake, CN II-XII Intact, Oriented x3 - Psychiatric Exam Psychiatric exam: Normal Affect, Normal Mood - Skin Skin Exam: Intact, Normal Color Assessment and Plan - Assessment and Plan (Free Text) Assessment: 67 yo female with multiple medical issues with PCN allergy diagnosed as a teenager verified by an Telephone Answerer. The patient with leukocytosis. Await cultures especially urine cultures. Diabetes and HTN history? Local wound care. Elevated ESR and C-reactive protein. Completed Vancomycin and Aztreonam for antibiotic coverage. UTI with E. coli sensitive to Azactam. Was on Vancomycin for cellulitis IV. For UTI for 5-7 days treatment... completed. Supportive care. Cellulitis appears improved. No new issues. Social issues currently. Homeless at this time. CT scan of chest done. No infiltrates seen. Afebrile the past 24 hours. Mild congestion noted in CT with small pulmonary effusions. No leukocytosis. Slightly elevated procalcitonin (0.66) which is undefined without stronger evidence for pneumonia. When encouraged, she is able to use the incentive spirometer without issues and ambulate with minimal difficulty. UTI with Klebsiella. Sensitive to Cipro. Was on Cipro for 5 day course at 500mg PO BID. Completed the antibiotic course. Stable currently. No new issues. Off antibiotics at this time. Multiple social issues. Chronic cough still. Complains of Vague mild general pains. Awaiting placement. Currently no new infectious disease issues at this time. Thank you for allowing me to participate in the care of the patient, we will follow with you.
[2017-08-02] MEDS: Potassium Chloride 20 mEq ER Tab PO SCH (22:24)
[2017-08-03] MEDS: guaiFENesin 200 mg/10 ml Syrup UD PO PRN ×2 (00:56→14:18)
[2017-08-03] MEDS: Albuterol-Ipratrop 3 mg / 0.5 (3 ml) UD IH PRN ×3 (07:24→14:43)
[2017-08-03] MEDS: Arformoterol 15 mcg/2 ml Inh Sol IH SCH ×2 (07:24→20:11)
[2017-08-03] MEDS: Budesonide 0.5 mg/2 ml Inhal Susp UD IH SCH ×2 (07:24→20:12)
[2017-08-03] MEDS: Insulin Lispro (humaLOG) MEDIUM Coverage SC SCH ×4 (08:09→21:34)
[2017-08-03 09:20] LABS: BASO # 0.06 K/mm3 (0.0-2.0); BASO % 0.5 % (0.0-3.0); EOS # 0.9 (0.0-0.7); EOS % 6.7 % (1.5-5.0); GRAN # 8.94 (1.4-6.5); GRAN % 68.1 % (50.0-68.0); LYMPH # 2.1 (1.2-3.4); LYMPH % 16.1 % (22.0-35.0); MEAN CELL VOLUME 84.6 fl (80.0-105.0); MEAN CORPUSCULAR HGB CONC 30.8 g/dl (31.0-37.0); MEAN PLATELET VOLUME 8.5 fl (7.0-11.0); MONO # 1.1 (0.1-0.6); MONO % 8.6 % (1.0-6.0); RBC 3.84 10^6/uL (3.5-6.1); RED CELL DISTRIBUTION WIDTH 25.6 % (11.5-14.5); WHITE BLOOD COUNT 13.1 10^3/ul (4.5-11.0)
[2017-08-03] MEDS: POLYETHYLENE GLYCOL 3350 17 GM/Dose PACKET PO SCH (09:34)
[2017-08-03] MEDS: Pantoprazole 40 mg EC Tab PO SCH (09:34)
[2017-08-03] MEDS: Nystatin 100,000 Units/gm Topical Pow(15 gm) TOP SCH (09:34)
[2017-08-03] MEDS: Multivitamin With Minerals Tab PO SCH (09:34)
[2017-08-03 09:47] LABS: ALB/GLOB RATIO 0.9 (1.1-1.8); ALBUMIN 3.3 g/dL (3.0-4.8); ALT/SGPT 47 U/L (7-56); AST/SGOT 36 U/L (14-36); BLOOD UREA NITROGEN 17 mg/dL (7-21); CALCIUM 7.8 mg/dL (8.4-10.5); GFR AFRICAN-AMERICAN > 60; GFR NON-AFRICAN AMERICAN > 60
[2017-08-03] MEDS ORDERED: Potassium Chloride 20 mEq ER Tab PO ONE (11:14)
--- NOTE | 2017-08-03 11:21 | CP.PCM.PN ---
<Shan Zepeda - Last Filed: 08/03/17 14:12> Subjective - Date & Time of Evaluation Date of Evaluation: 08/03/17 Time of Evaluation: 06:00 - Subjective Subjective: patient seen and examined at bedside. No acute distress. no acute events overnight. She states she has been having diarrhea and is breathing well. She has no other complaints, she denies chest pain, sob, cough, abd pain, vomiting, nausea. Objective - Vital Signs/Intake and Output Vital Signs (last 24 hours): Temp Pulse Resp BP Pulse Ox 97.9 F 83 22 115/88 93 L 08/03/17 07:00 08/03/17 07:00 08/03/17 07:00 08/03/17 09:35 08/03/17 07:00 Intake and Output: 08/03/17 08/03/17 06:59 18:59 Intake Total 980 Balance 980 - Medications Medications: Current Medications Albuterol/Ipratropium (Duoneb 3 Mg/0.5 Mg (3 Ml) Ud) 3 ml IH [id number] PRN PRN Reason: Shortness of Breath Last Admin: 08/03/17 11:16 Dose: 3 ml Arformoterol Tartrate (Brovana) 15 mcg IH [id number] [facility] Last Admin: 08/03/17 07:24 Dose: 15 mcg Benzonatate (Tessalon Perles) 100 mg PO TID [facility] Last Admin: 08/03/17 09:33 Dose: 100 mg Budesonide (Pulmicort Respules) 0.5 mg IH [id number] [facility] Last Admin: 08/03/17 07:24 Dose: 0.5 mg Docusate Sodium (Colace) 100 mg PO DAILY PRN PRN Reason: Constipation Ferrous Sulfate (Feosol) 324 mg PO TID [facility] Last Admin: 08/03/17 09:34 Dose: 324 mg Guaifenesin (Robitussin) 200 mg PO Q4H PRN PRN Reason: Cough and congestion Last Admin: 08/03/17 00:56 Dose: 200 mg Heparin Sodium (Porcine) (Heparin) 5,000 units SC Q12 [facility] PRN Reason: Protocol Last Admin: 08/03/17 09:33 Dose: 5,000 units Ibuprofen (Motrin Tab) 600 mg PO Q6H PRN PRN Reason: Pain, severe (8-10) Last Admin: 07/31/17 16:39 Dose: 600 mg Insulin Human Lispro (Humalog Med) 0 units SC ACHS [facility] PRN Reason: Protocol Last Admin: 08/03/17 11:01 Dose: Not Given Lisinopril (Zestril) 5 mg PO DAILY [facility] Last Admin: 08/03/17 09:35 Dose: 5 mg Multivitamins/Minerals (Therapeutic-M Tab) 1 tab PO 0800 [facility] Last Admin: 08/03/17 09:34 Dose: 1 tab Nystatin (Nystop Topical Powder) 1 gm TOP DAILY [facility] Last Admin: 08/03/17 09:34 Dose: 1 applic Pantoprazole Sodium (Protonix Ec Tab) 40 mg PO ACB [facility] Last Admin: 08/03/17 09:34 Dose: Not Given Potassium Chloride (K-Dur 20 Meq Er Tab) 40 meq PO HS [facility] Last Admin: 08/02/17 22:24 Dose: 40 meq Zinc Sulfate (Zinc Sulfate 220 Mg Cap) 220 mg PO DAILY [facility] Last Admin: 08/03/17 09:34 Dose: 220 mg - Labs Labs: 08/03/17 09:00 08/03/17 09:00 PT 13.1 SECONDS (9.4-12.5) H 06/15/17 11:00 INR 1.19 (0.93-1.08) H 06/15/17 11:00 APTT 31.3 Seconds (25.1-36.5) 06/15/17 11:00 - Constitutional Appears: Non-toxic, No Acute Distress - Head Exam Head Exam: ATRAUMATIC, NORMAL INSPECTION, NORMOCEPHALIC - Eye Exam Eye Exam: EOMI, Normal appearance - ENT Exam ENT Exam: Mucous Membranes Moist - Neck Exam Neck Exam: absent: Tenderness - Respiratory Exam Respiratory Exam: Clear to Ausculation Bilateral, NORMAL BREATHING PATTERN - Cardiovascular Exam Cardiovascular Exam: REGULAR RHYTHM, +S1, +S2 - GI/Abdominal Exam GI & Abdominal Exam: Distended, Soft, Normal Bowel Sounds - Extremities Exam Extremities Exam: Pedal Edema - Neurological Exam Neurological Exam: Alert, Awake, Oriented x3 - Skin Skin Exam: Normal Color Assessment and Plan - Assessment and Plan (Free Text) Assessment: 67 year old female with past medical history of asthma, arthritis, anemia, and obesity, presented with right lower extremity cellulitis and UTI. Patient was found to have cultures positive for Proteus mirabilis and beta hemolytic strep, s/p completed IV course of Vancomycin and Azactam. Patient subsequently found to have Klebsiella UTI s/p adequate treatment with Ciprofloxacin. Patient's course was also complicated by fecal impaction, currently resolved. Pt also found to have intermittent dyspnea, workup revealing a diagnosis of rheumatoid arthritis. Patient is awaiting placement in [facility], pending approval for Medicaid. Plan: 1. SOB/cough (improved): -Likely 2/2 to Asthma Exacerbation vs URI vs RA induced pulmonary fibrosis. -Cont with Duonebs [facility] Q6H -Pulm consult added 07/18/17: Dr. Love, Recs Appreciated -Continue with inhaled corticosteroids and LABA -RAS positive, titer 1:80, CCP IgG >250 -> Newly diagnosed RA. -RF - IgG and IgM - NEGATIVE. IgA- POSITIVE -BNP 397 - CXR showed no infiltrates. cardiomegaly. - CT Chest on 07/04/17: shows Mildly enlarged axillary lymph nodes and moderate cardiomegaly and mild vascular congestion - ESR (07/22): 76 elevated - Tessalon pereles, Robitussin, and Mucinex for cough - Tylenol prn for fevers - Incentive Spirometry - Chest PT - nightly CPAP 2. Hypokalemia: - K 3.0, 20 meQ K given - Cont. [facility] Potassium - Cont to monitor every other day -likely from continued diarrhea 3. HTN: - Patient hypertensive on many episodes in hospital - No hx of htn. - Cont Lisinopril 5 mg PO daily. - Cont to monitor. 4. Abdominal Distension, resolved: - likely 2/2 Constipation/fecal impaction - CT Abdomen Pelvis with PO and IV Contrast (07/18): Interstitial and airspace disease in the lung bases; mild cardiomegaly and atherosclerotic disease; fatty liver; gallstones; possible pyelonephritis; mild ileus, no obstruction; constipation with fecal impaction -discontinued Miralax, colace PRN 5. Hyperglycemia: - 2/2 likely steroid induced - ISS, will taper off steroids. 6. Newly diagnosed Rheumatoid Arthritis: - Motrin for pain control - Cont inhaled corticosteroids and LABA for dyspnea. - Since patient is not experiencing an acute rheumatoid exacerbation, patient can follow up with a door manager outpatient for further management ( Methotrexate). No rheumatology consult available in house. 7. Headache (Resolved) - Continue fiorcet PRN 8. Normocytic anemia - Hemoglobin stable - Monitor daily 9. Diarrhea -Stool C diff ordered GI/DVT ppx: Heparin, Protonix Dispo: Patient awaiting placement in [facility]. <JenniferJuan bridges - Last Filed: 08/03/17 14:25> Objective - Vital Signs/Intake and Output Vital Signs (last 24 hours): Temp Pulse Resp BP Pulse Ox 97.9 F 83 22 115/88 93 L 08/03/17 07:00 08/03/17 07:00 08/03/17 07:00 08/03/17 09:35 08/03/17 07:00 Intake and Output: 08/03/17 08/03/17 06:59 18:59 Intake Total 980 Balance 980 - Medications Medications: Current Medications Albuterol/Ipratropium (Duoneb 3 Mg/0.5 Mg (3 Ml) Ud) 3 ml IH [id number] PRN PRN Reason: Shortness of Breath Last Admin: 08/03/17 11:16 Dose: 3 ml Arformoterol Tartrate (Brovana) 15 mcg IH [id number] [facility] Last Admin: 08/03/17 07:24 Dose: 15 mcg Benzonatate (Tessalon Perles) 100 mg PO TID [facility] Last Admin: 08/03/17 13:07 Dose: 100 mg Budesonide (Pulmicort Respules) 0.5 mg IH [id number] [facility] Last Admin: 08/03/17 07:24 Dose: 0.5 mg Docusate Sodium (Colace) 100 mg PO DAILY PRN PRN Reason: Constipation Ferrous Sulfate (Feosol) 324 mg PO TID [facility] Last Admin: 08/03/17 13:07 Dose: 324 mg Guaifenesin (Robitussin) 200 mg PO Q4H PRN PRN Reason: Cough and congestion Last Admin: 08/03/17 14:18 Dose: 200 mg Heparin Sodium (Porcine) (Heparin) 5,000 units SC Q12 [facility] PRN Reason: Protocol Last Admin: 08/03/17 09:33 Dose: 5,000 units Ibuprofen (Motrin Tab) 600 mg PO Q6H PRN PRN Reason: Pain, severe (8-10) Last Admin: 07/31/17 16:39 Dose: 600 mg Insulin Human Lispro (Humalog Med) 0 units SC ACHS [facility] PRN Reason: Protocol Last Admin: 08/03/17 11:01 Dose: Not Given Lisinopril (Zestril) 5 mg PO DAILY [facility] Last Admin: 08/03/17 09:35 Dose: 5 mg Multivitamins/Minerals (Therapeutic-M Tab) 1 tab PO 0800 [facility] Last Admin: 08/03/17 09:34 Dose: 1 tab Nystatin (Nystop Topical Powder) 1 gm TOP DAILY [facility] Last Admin: 08/03/17 09:34 Dose: 1 applic Pantoprazole Sodium (Protonix Ec Tab) 40 mg PO ACB [facility] Last Admin: 08/03/17 09:34 Dose: Not Given Potassium Chloride (K-Dur 20 Meq Er Tab) 40 meq PO HS [facility] Last Admin: 08/02/17 22:24 Dose: 40 meq Zinc Sulfate (Zinc Sulfate 220 Mg Cap) 220 mg PO DAILY [facility] Last Admin: 08/03/17 09:34 Dose: 220 mg - Labs Labs: 08/03/17 09:00 08/03/17 09:00 PT 13.1 SECONDS (9.4-12.5) H 06/15/17 11:00 INR 1.19 (0.93-1.08) H 06/15/17 11:00 APTT 31.3 Seconds (25.1-36.5) 06/15/17 11:00 Attending/Attestation - Attestation I have personally seen and examined this patient.: Yes I have fully participated in the care of the patient.: Yes I have reviewed all pertinent clinical information, including history, physical exam and plan: Yes Notes (Text): 08/03/17 14:23 67 year old female with past medical history of asthma and arthritis who initially presented with UTI and right LE cellulitis now s/p antibiotics. She was on tapering po steroids and duonebs for asthma/COPD and colace and miralax for constipation. Now she complains of loose stools. Will hold colace and miralax for now. Will replete and repeat potassium for hypokalemia. Patient is currently awaiting placement to [facility]. Juan Rodriguez MD Hospitalist.
--- NOTE | 2017-08-03 18:08 | CP.PCM.PN ---
Subjective - Date & Time of Evaluation Date of Evaluation: 08/03/17 Time of Evaluation: 17:30 - Subjective Subjective: Infectious Disease Follow Up: August 03, 2017 67 yo female presenting with 3 weeks of RLE ulceration, swelling and leaking from the wound as well as multiple falls in the past 3 weeks. The patient has an extensive medical history of asthma, arthritis, vitamin C deficiency, and possible thyroid disease. Draining RLE ulceration... cellulitis improved/resolved. Multiple chronic medical issues. Still with persistent dry cough. Otherwise stable. Mild erythema and excoriation of the folds in the abdomen and under the breasts. Fevers up to 100.8 F two nights ago. Patient making few complaints. The patient has remained in bed. Nursing and aides had noted that the patient's friend "Chris" has encouraged the patient to stay in bed in order to get to a [facility] or subacute facility. "Chris" was the person the patient was living with prior to coming to [facility]. Also noted that the patient has had a hacking cough the last couple of days. Afebrile for several days now. CT scan of chest done. CT shows mild vascular congestion and no infiltrates. UTI with Klebsiella earlier in hospitalization but had treatment with Cipro that is now completed. No additional issues. Social Issues. Off antibiotics now. No new significant complaints at this time. Vague abdominal pain complaints. Non-specific mild pain complaints. No significant current infectious disease issues at this time. However, the patient remains in bed mostly and doesn't participate in her ADLs. The patient continues to have a persistent cough that can be hacking at times. Objective - Vital Signs/Intake and Output Vital Signs (last 24 hours): Temp Pulse Resp BP Pulse Ox 97.9 F 83 22 115/88 93 L 08/03/17 07:00 08/03/17 07:00 08/03/17 07:00 08/03/17 09:35 08/03/17 07:00 Intake and Output: 08/03/17 08/03/17 06:59 18:59 Intake Total 980 Balance 980 - Medications Medications: Current Medications Albuterol/Ipratropium (Duoneb 3 Mg/0.5 Mg (3 Ml) Ud) 3 ml IH [id number] PRN PRN Reason: Shortness of Breath Last Admin: 08/03/17 14:43 Dose: 3 ml Arformoterol Tartrate (Brovana) 15 mcg IH [id number] [facility] Last Admin: 08/03/17 07:24 Dose: 15 mcg Benzonatate (Tessalon Perles) 100 mg PO TID [facility] Last Admin: 08/03/17 17:07 Dose: 100 mg Budesonide (Pulmicort Respules) 0.5 mg IH [id number] [facility] Last Admin: 08/03/17 07:24 Dose: 0.5 mg Ferrous Sulfate (Feosol) 324 mg PO TID [facility] Last Admin: 08/03/17 17:07 Dose: 324 mg Guaifenesin (Robitussin) 200 mg PO Q4H PRN PRN Reason: Cough and congestion Last Admin: 08/03/17 14:18 Dose: 200 mg Heparin Sodium (Porcine) (Heparin) 5,000 units SC Q12 [facility] PRN Reason: Protocol Last Admin: 08/03/17 09:33 Dose: 5,000 units Ibuprofen (Motrin Tab) 600 mg PO Q6H PRN PRN Reason: Pain, severe (8-10) Last Admin: 07/31/17 16:39 Dose: 600 mg Insulin Human Lispro (Humalog Med) 0 units SC ACHS [facility] PRN Reason: Protocol Last Admin: 08/03/17 16:14 Dose: Not Given Lisinopril (Zestril) 5 mg PO DAILY [facility] Last Admin: 08/03/17 09:35 Dose: 5 mg Multivitamins/Minerals (Therapeutic-M Tab) 1 tab PO 0800 [facility] Last Admin: 08/03/17 09:34 Dose: 1 tab Nystatin (Nystop Topical Powder) 1 gm TOP DAILY [facility] Last Admin: 08/03/17 09:34 Dose: 1 applic Pantoprazole Sodium (Protonix Ec Tab) 40 mg PO ACB [facility] Last Admin: 08/03/17 09:34 Dose: Not Given Potassium Chloride (K-Dur 20 Meq Er Tab) 40 meq PO HS [facility] Last Admin: 08/02/17 22:24 Dose: 40 meq Zinc Sulfate (Zinc Sulfate 220 Mg Cap) 220 mg PO DAILY [facility] Last Admin: 08/03/17 09:34 Dose: 220 mg - Labs Labs: 08/03/17 09:00 08/03/17 09:00 PT 13.1 SECONDS (9.4-12.5) H 06/15/17 11:00 INR 1.19 (0.93-1.08) H 06/15/17 11:00 APTT 31.3 Seconds (25.1-36.5) 06/15/17 11:00 - Constitutional Appears: Non-toxic, No Acute Distress - Head Exam Head Exam: ATRAUMATIC, NORMOCEPHALIC - Eye Exam Eye Exam: EOMI, PERRL Pupil Exam: NORMAL ACCOMODATION, PERRL - ENT Exam ENT Exam: Mucous Membranes Moist, Normal External Ear Exam, TM's Normal Bilaterally - Neck Exam Neck Exam: Full ROM, Normal Inspection - Respiratory Exam Respiratory Exam: Clear to Ausculation Bilateral, NORMAL BREATHING PATTERN. absent: Rales, Rhonchi, Wheezes - Cardiovascular Exam Cardiovascular Exam: REGULAR RHYTHM, RRR, +S1, +S2 - GI/Abdominal Exam GI & Abdominal Exam: Soft, Normal Bowel Sounds. absent: Distended, Tenderness - Extremities Exam Extremities Exam: Full ROM, Normal Inspection - Neurological Exam Neurological Exam: Alert, Awake, CN II-XII Intact, Oriented x3 - Psychiatric Exam Psychiatric exam: Normal Affect, Normal Mood - Skin Skin Exam: Intact, Normal Color Assessment and Plan - Assessment and Plan (Free Text) Assessment: 67 yo female with multiple medical issues with PCN allergy diagnosed as a teenager verified by an Administrative And Program Specialist. The patient with leukocytosis. Await cultures especially urine cultures. Diabetes and HTN history? Local wound care. Elevated ESR and C-reactive protein. Completed Vancomycin and Aztreonam for antibiotic coverage. UTI with E. coli sensitive to Azactam. Was on Vancomycin for cellulitis IV. For UTI for 5-7 days treatment... completed. Supportive care. Cellulitis appears improved. No new issues. Social issues currently. Homeless at this time. CT scan of chest done. No infiltrates seen. Afebrile the past 24 hours. Mild congestion noted in CT with small pulmonary effusions. No leukocytosis. Slightly elevated procalcitonin (0.66) which is undefined without stronger evidence for pneumonia. When encouraged, she is able to use the incentive spirometer without issues and ambulate with minimal difficulty. UTI with Klebsiella. Sensitive to Cipro. Was on Cipro for 5 day course at 500mg PO BID. Completed the antibiotic course. Stable currently. No new issues. Off antibiotics at this time. Multiple social issues. Chronic cough still with periods of hacking. Complains of Vague mild general pains. Awaiting placement. Currently no new infectious disease issues at this time. Unfortunately, the patient remains unwilling to participate in ADLs. The patient stay is in part social as the patient's family has failed to bring in the paperwork to get her to a subacute facility. Thank you for allowing me to participate in the care of the patient, we will follow with you.
[2017-08-03] MEDS: Potassium Chloride 20 mEq ER Tab PO SCH (22:19)
[2017-08-04] MEDS: Pantoprazole 40 mg EC Tab PO SCH (07:12)
[2017-08-04] MEDS: Insulin Lispro (humaLOG) MEDIUM Coverage SC SCH ×4 (07:12→23:17)
[2017-08-04] MEDS: Budesonide 0.5 mg/2 ml Inhal Susp UD IH SCH ×2 (07:20→20:45)
[2017-08-04] MEDS: Arformoterol 15 mcg/2 ml Inh Sol IH SCH ×2 (07:20→20:45)
[2017-08-04 08:53] LABS: BASO # 0.04 K/mm3 (0.0-2.0); BASO % 0.3 % (0.0-3.0); EOS # 0.7 (0.0-0.7); EOS % 5.7 % (1.5-5.0); GRAN # 9.22 (1.4-6.5); GRAN % 78.1 % (50.0-68.0); HEMOGLOBIN 10.3 g/dL (12.0-16.0); LYMPH # 0.8 (1.2-3.4); LYMPH % 6.9 % (22.0-35.0); MEAN CELL VOLUME 84.4 fl (80.0-105.0); MEAN CORPUSCULAR HEMOGLOBIN 26.3 pg (25.0-35.0); MEAN CORPUSCULAR HGB CONC 31.1 g/dl (31.0-37.0); MEAN PLATELET VOLUME 8.7 fl (7.0-11.0); MONO # 1.1 (0.1-0.6); RBC 3.92 10^6/uL (3.5-6.1); RED CELL DISTRIBUTION WIDTH 25.4 % (11.5-14.5); WHITE BLOOD COUNT 11.8 10^3/ul (4.5-11.0)
[2017-08-04 09:20] LABS: ALB/GLOB RATIO 0.9 (1.1-1.8); ALBUMIN 3.5 g/dL (3.0-4.8); ALT/SGPT 51 U/L (7-56); AST/SGOT 33 U/L (14-36); BLOOD UREA NITROGEN 12 mg/dL (7-21); GFR AFRICAN-AMERICAN > 60; GFR NON-AFRICAN AMERICAN > 60
[2017-08-04] MEDS: Multivitamin With Minerals Tab PO SCH (09:38)
[2017-08-04] MEDS: Nystatin 100,000 Units/gm Topical Pow(15 gm) TOP SCH (09:39)
[2017-08-04] MEDS ORDERED: Potassium Chloride 20 mEq ER Tab PO ONE (11:55)
--- NOTE | 2017-08-04 12:09 | CP.PCM.PN ---
<Shan Zepeda - Last Filed: 08/04/17 13:55> Subjective - Date & Time of Evaluation Date of Evaluation: 08/04/17 Time of Evaluation: 06:00 - Subjective Subjective: patient seen and examined at bedside. No acute distress. no acute events overnight. She states she continues to have diarrhea. SHe states her breathing has improved since yesterday. She has no other complaints, she denies chest pain , sob, cough, abd pain, vomiting, nausea. Objective - Vital Signs/Intake and Output Vital Signs (last 24 hours): Temp Pulse Resp BP Pulse Ox 98.4 F 89 20 169/80 H 95 08/04/17 07:30 08/04/17 07:30 08/04/17 07:30 08/04/17 07:30 08/04/17 07:30 Intake and Output: 08/04/17 08/04/17 06:59 18:59 Intake Total 720 Balance 720 - Medications Medications: Current Medications Albuterol/Ipratropium (Duoneb 3 Mg/0.5 Mg (3 Ml) Ud) 3 ml IH [id number] PRN PRN Reason: Shortness of Breath Last Admin: 08/03/17 14:43 Dose: 3 ml Arformoterol Tartrate (Brovana) 15 mcg IH [id number] [facility] Last Admin: 08/04/17 07:20 Dose: 15 mcg Benzonatate (Tessalon Perles) 100 mg PO TID [facility] Last Admin: 08/04/17 09:38 Dose: 100 mg Budesonide (Pulmicort Respules) 0.5 mg IH [id number] [facility] Last Admin: 08/04/17 07:20 Dose: 0.5 mg Ferrous Sulfate (Feosol) 324 mg PO TID [facility] Last Admin: 08/04/17 09:38 Dose: 324 mg Guaifenesin (Robitussin) 200 mg PO Q4H PRN PRN Reason: Cough and congestion Last Admin: 08/03/17 14:18 Dose: 200 mg Heparin Sodium (Porcine) (Heparin) 5,000 units SC Q12 [facility] PRN Reason: Protocol Last Admin: 08/04/17 09:39 Dose: 5,000 units Ibuprofen (Motrin Tab) 600 mg PO Q6H PRN PRN Reason: Pain, severe (8-10) Last Admin: 07/31/17 16:39 Dose: 600 mg Insulin Human Lispro (Humalog Med) 0 units SC ACHS [facility] PRN Reason: Protocol Last Admin: 08/04/17 11:54 Dose: Not Given Lisinopril (Zestril) 5 mg PO DAILY [facility] Last Admin: 08/04/17 09:38 Dose: 5 mg Multivitamins/Minerals (Therapeutic-M Tab) 1 tab PO 0800 [facility] Last Admin: 08/04/17 09:38 Dose: 1 tab Nystatin (Nystop Topical Powder) 1 gm TOP DAILY [facility] Last Admin: 08/04/17 09:39 Dose: 1 applic Pantoprazole Sodium (Protonix Ec Tab) 40 mg PO ACB [facility] Last Admin: 08/04/17 07:12 Dose: 40 mg Potassium Chloride (K-Dur 20 Meq Er Tab) 40 meq PO HS [facility] Last Admin: 08/03/17 22:19 Dose: 40 meq Zinc Sulfate (Zinc Sulfate 220 Mg Cap) 220 mg PO DAILY [facility] Last Admin: 08/04/17 09:38 Dose: 220 mg - Labs Labs: 08/04/17 08:45 08/04/17 08:45 PT 13.1 SECONDS (9.4-12.5) H 06/15/17 11:00 INR 1.19 (0.93-1.08) H 06/15/17 11:00 APTT 31.3 Seconds (25.1-36.5) 06/15/17 11:00 - Constitutional Appears: Non-toxic, No Acute Distress - Head Exam Head Exam: ATRAUMATIC, NORMAL INSPECTION - Eye Exam Eye Exam: EOMI, Normal appearance - ENT Exam ENT Exam: Mucous Membranes Moist - Neck Exam Neck Exam: Normal Inspection - Respiratory Exam Respiratory Exam: Clear to Ausculation Bilateral, NORMAL BREATHING PATTERN - Cardiovascular Exam Cardiovascular Exam: REGULAR RHYTHM, +S1, +S2 - GI/Abdominal Exam GI & Abdominal Exam: Distended - Extremities Exam Extremities Exam: Pedal Edema - Neurological Exam Neurological Exam: Alert, Oriented x3 - Skin Skin Exam: Intact, Normal Color Assessment and Plan - Assessment and Plan (Free Text) Assessment: 67 year old female with past medical history of asthma, arthritis, anemia, and obesity, presented with right lower extremity cellulitis and UTI. Patient was found to have cultures positive for Proteus mirabilis and beta hemolytic strep, s/p completed IV course of Vancomycin and Azactam. Patient subsequently found to have Klebsiella UTI s/p adequate treatment with Ciprofloxacin. Patient's course was also complicated by fecal impaction, currently resolved. Pt also found to have intermittent dyspnea, workup revealing a diagnosis of rheumatoid arthritis. Patient is awaiting placement in [facility], pending approval for Medicaid. Plan: 1. SOB/cough (improved): -Likely 2/2 to Asthma Exacerbation vs URI vs RA induced pulmonary fibrosis. -Cont with Duonebs [facility] Q6H -Pulm consult added 07/18/17: Dr. Love, Recs Appreciated -Continue with inhaled corticosteroids and LABA -RAS positive, titer 1:80, CCP IgG >250 -> Newly diagnosed RA. -RF - IgG and IgM - NEGATIVE. IgA- POSITIVE -BNP 397 - CXR showed no infiltrates. cardiomegaly. - CT Chest on 07/04/17: shows Mildly enlarged axillary lymph nodes and moderate cardiomegaly and mild vascular congestion - ESR (07/22): 76 elevated - Tessalon pereles, Robitussin, and Mucinex for cough - Tylenol prn for fevers - Incentive Spirometry - Chest PT - nightly CPAP 2. Hypokalemia: - K 3.4, 20 meQ K given - Cont. [facility] Potassium - Cont to monitor every other day - likely from continued diarrhea 3. HTN: -BP 169/80, will continue to monitor - Patient hypertensive on many episodes in hospital - No hx of htn. - Cont Lisinopril 5 mg PO daily. 4. Abdominal Distension, resolved: - likely 2/2 Constipation/fecal impaction - CT Abdomen Pelvis with PO and IV Contrast (07/18): Interstitial and airspace disease in the lung bases; mild cardiomegaly and atherosclerotic disease; fatty liver; gallstones; possible pyelonephritis; mild ileus, no obstruction; constipation with fecal impaction -discontinued Miralax, colace PRN yesterday 5. Hyperglycemia: - 2/2 likely steroid induced - ISS, will taper off steroids. 6. Newly diagnosed Rheumatoid Arthritis: - Motrin for pain control - Cont inhaled corticosteroids and LABA for dyspnea. - Since patient is not experiencing an acute rheumatoid exacerbation, patient can follow up with a customer order clerk outpatient for further management ( Methotrexate). No rheumatology consult available in house. 7. Headache (Resolved) - Continue fiorcet PRN 8. Normocytic anemia - Hemoglobin stable - Monitor daily 9. Diarrhea -Stool C diff ordered still pending GI/DVT ppx: Heparin, Protonix Dispo: Patient awaiting placement in [facility]. <Juan Rodriguez - Last Filed: 08/04/17 14:19> Objective - Vital Signs/Intake and Output Vital Signs (last 24 hours): Temp Pulse Resp BP Pulse Ox 98.4 F 89 20 169/80 H 95 08/04/17 07:30 08/04/17 07:30 08/04/17 07:30 08/04/17 07:30 08/04/17 07:30 Intake and Output: 08/04/17 08/04/17 06:59 18:59 Intake Total 720 Balance 720 - Medications Medications: Current Medications Albuterol/Ipratropium (Duoneb 3 Mg/0.5 Mg (3 Ml) Ud) 3 ml IH [id number] PRN PRN Reason: Shortness of Breath Last Admin: 08/03/17 14:43 Dose: 3 ml Arformoterol Tartrate (Brovana) 15 mcg IH [id number] [facility] Last Admin: 08/04/17 07:20 Dose: 15 mcg Benzonatate (Tessalon Perles) 100 mg PO TID [facility] Last Admin: 08/04/17 13:18 Dose: 100 mg Budesonide (Pulmicort Respules) 0.5 mg IH [id number] [facility] Last Admin: 08/04/17 07:20 Dose: 0.5 mg Ferrous Sulfate (Feosol) 324 mg PO TID [facility] Last Admin: 08/04/17 13:18 Dose: 324 mg Guaifenesin (Robitussin) 200 mg PO Q4H PRN PRN Reason: Cough and congestion Last Admin: 08/03/17 14:18 Dose: 200 mg Heparin Sodium (Porcine) (Heparin) 5,000 units SC Q12 [facility] PRN Reason: Protocol Last Admin: 08/04/17 09:39 Dose: 5,000 units Ibuprofen (Motrin Tab) 600 mg PO Q6H PRN PRN Reason: Pain, severe (8-10) Last Admin: 07/31/17 16:39 Dose: 600 mg Insulin Human Lispro (Humalog Med) 0 units SC ACHS [facility] PRN Reason: Protocol Last Admin: 08/04/17 11:54 Dose: Not Given Lisinopril (Zestril) 5 mg PO DAILY [facility] Last Admin: 08/04/17 09:38 Dose: 5 mg Multivitamins/Minerals (Therapeutic-M Tab) 1 tab PO 0800 [facility] Last Admin: 08/04/17 09:38 Dose: 1 tab Nystatin (Nystop Topical Powder) 1 gm TOP DAILY [facility] Last Admin: 08/04/17 09:39 Dose: 1 applic Pantoprazole Sodium (Protonix Ec Tab) 40 mg PO ACB [facility] Last Admin: 08/04/17 07:12 Dose: 40 mg Potassium Chloride (K-Dur 20 Meq Er Tab) 40 meq PO HS [facility] Last Admin: 08/03/17 22:19 Dose: 40 meq Zinc Sulfate (Zinc Sulfate 220 Mg Cap) 220 mg PO DAILY [facility] Last Admin: 08/04/17 09:38 Dose: 220 mg - Labs Labs: 08/04/17 08:45 08/04/17 08:45 PT 13.1 SECONDS (9.4-12.5) H 06/15/17 11:00 INR 1.19 (0.93-1.08) H 06/15/17 11:00 APTT 31.3 Seconds (25.1-36.5) 06/15/17 11:00 Attending/Attestation - Attestation I have personally seen and examined this patient.: Yes I have fully participated in the care of the patient.: Yes I have reviewed all pertinent clinical information, including history, physical exam and plan: Yes Notes (Text): 08/04/17 14:17 67 year old female with past medical history of asthma and arthritis who initially presented with UTI and right LE cellulitis. She was seen by ID and has completed course of iv antibiotics. She was also seen by pulmonary for intermittent asthma and treated with duonebs and steroids. She was on colace and miralax for constipation which is now on hold due to loose stools. CDif study was ordered and pending. Will replete and repeat potassium for hypokalemia. Patient is currently awaiting placement to [facility]. Juan Rodriguez MD Hospitalist.
[2017-08-04] MEDS: guaiFENesin 200 mg/10 ml Syrup UD PO PRN ×2 (17:18→21:20)
[2017-08-04] MEDS: Potassium Chloride 20 mEq ER Tab PO SCH (23:23)
[2017-08-05] MEDS: Arformoterol 15 mcg/2 ml Inh Sol IH SCH ×2 (07:50→22:24)
[2017-08-05] MEDS: Budesonide 0.5 mg/2 ml Inhal Susp UD IH SCH ×2 (07:50→22:25)
[2017-08-05 08:13] LABS: BASO # 0.05 K/mm3 (0.0-2.0); BASO % 0.6 % (0.0-3.0); EOS # 0.4 (0.0-0.7); EOS % 4.6 % (1.5-5.0); GRAN # 6.51 (1.4-6.5); GRAN % 72.5 % (50.0-68.0); HEMOGLOBIN 10.1 g/dL (12.0-16.0); LYMPH # 0.9 (1.2-3.4); LYMPH % 9.6 % (22.0-35.0); MEAN CELL VOLUME 85.4 fl (80.0-105.0); MEAN CORPUSCULAR HEMOGLOBIN 25.8 pg (25.0-35.0); MEAN CORPUSCULAR HGB CONC 30.2 g/dl (31.0-37.0); MEAN PLATELET VOLUME 8.6 fl (7.0-11.0); MONO # 1.1 (0.1-0.6); MONO % 12.7 % (1.0-6.0); RBC 3.91 10^6/uL (3.5-6.1); RED CELL DISTRIBUTION WIDTH 25.4 % (11.5-14.5)
[2017-08-05 08:25] LABS: ALB/GLOB RATIO 0.9 (1.1-1.8); ALBUMIN 3.4 g/dL (3.0-4.8); ALT/SGPT 50 U/L (7-56); AST/SGOT 30 U/L (14-36); BLOOD UREA NITROGEN 10 mg/dL (7-21); GFR AFRICAN-AMERICAN > 60; GFR NON-AFRICAN AMERICAN > 60
[2017-08-05] MEDS: Pantoprazole 40 mg EC Tab PO SCH (08:37)
[2017-08-05] MEDS: Multivitamin With Minerals Tab PO SCH (08:37)
[2017-08-05] MEDS: guaiFENesin 200 mg/10 ml Syrup UD PO PRN ×2 (08:37→22:33)
--- NOTE | 2017-08-05 11:15 | CP.PCM.PN ---
<Shan Zepeda - Last Filed: 08/05/17 15:18> Subjective - Date & Time of Evaluation Date of Evaluation: 08/05/17 Time of Evaluation: 06:00 - Subjective Subjective: Patient was seen and evaluated bedside. Patient stated last BM was yesterday night and a little more formed. She stated he cough was getting better as well. No issues overnight and no other complaints at this time. Objective - Vital Signs/Intake and Output Vital Signs (last 24 hours): Temp Pulse Resp BP Pulse Ox 98.8 F 98 H 22 163/93 H 97 08/05/17 00:05 08/05/17 10:21 08/05/17 00:05 08/05/17 10:21 08/05/17 00:05 Intake and Output: 08/05/17 08/05/17 06:59 18:59 Intake Total 660 240 Balance 660 240 - Medications Medications: Current Medications Albuterol/Ipratropium (Duoneb 3 Mg/0.5 Mg (3 Ml) Ud) 3 ml IH [id number] PRN PRN Reason: Shortness of Breath Last Admin: 08/03/17 14:43 Dose: 3 ml Arformoterol Tartrate (Brovana) 15 mcg IH [id number] [facility] Last Admin: 08/05/17 07:50 Dose: 15 mcg Benzonatate (Tessalon Perles) 100 mg PO TID [facility] Last Admin: 08/05/17 10:21 Dose: 100 mg Budesonide (Pulmicort Respules) 0.5 mg IH [id number] [facility] Last Admin: 08/05/17 07:50 Dose: 0.5 mg Ferrous Sulfate (Feosol) 324 mg PO TID [facility] Last Admin: 08/05/17 10:21 Dose: 324 mg Guaifenesin (Robitussin) 200 mg PO Q4H PRN PRN Reason: Cough and congestion Last Admin: 08/05/17 08:37 Dose: 200 mg Heparin Sodium (Porcine) (Heparin) 5,000 units SC Q12 [facility] PRN Reason: Protocol Last Admin: 08/04/17 21:20 Dose: 5,000 units Ibuprofen (Motrin Tab) 600 mg PO Q6H PRN PRN Reason: Pain, severe (8-10) Last Admin: 07/31/17 16:39 Dose: 600 mg Insulin Human Lispro (Humalog Med) 0 units SC ACHS [facility] PRN Reason: Protocol Last Admin: 08/04/17 23:17 Dose: Not Given Lisinopril (Zestril) 5 mg PO DAILY [facility] Last Admin: 08/05/17 10:21 Dose: 5 mg Multivitamins/Minerals (Therapeutic-M Tab) 1 tab PO 0800 [facility] Last Admin: 08/05/17 08:37 Dose: 1 tab Nystatin (Nystop Topical Powder) 1 gm TOP DAILY [facility] Last Admin: 08/04/17 09:39 Dose: 1 applic Pantoprazole Sodium (Protonix Ec Tab) 40 mg PO ACB [facility] Last Admin: 08/05/17 08:37 Dose: 40 mg Potassium Chloride (K-Dur 20 Meq Er Tab) 40 meq PO HS [facility] Last Admin: 08/04/17 23:23 Dose: 40 meq Zinc Sulfate (Zinc Sulfate 220 Mg Cap) 220 mg PO DAILY [facility] Last Admin: 08/05/17 10:21 Dose: 220 mg - Labs Labs: 08/05/17 07:45 08/05/17 07:45 PT 13.1 SECONDS (9.4-12.5) H 06/15/17 11:00 INR 1.19 (0.93-1.08) H 06/15/17 11:00 APTT 31.3 Seconds (25.1-36.5) 06/15/17 11:00 - Constitutional Appears: Non-toxic, No Acute Distress - Head Exam Head Exam: ATRAUMATIC, NORMAL INSPECTION, NORMOCEPHALIC - Eye Exam Eye Exam: EOMI, Normal appearance - ENT Exam ENT Exam: Mucous Membranes Moist - Neck Exam Neck Exam: absent: Lymphadenopathy, Tenderness - Respiratory Exam Respiratory Exam: Clear to Ausculation Bilateral, NORMAL BREATHING PATTERN - Cardiovascular Exam Cardiovascular Exam: REGULAR RHYTHM, +S1, +S2 - GI/Abdominal Exam GI & Abdominal Exam: Distended - Extremities Exam Extremities Exam: Pedal Edema - Neurological Exam Neurological Exam: Alert, Oriented x3 Assessment and Plan - Assessment and Plan (Free Text) Assessment: 67 year old female with past medical history of asthma, arthritis, anemia, and obesity, presented with right lower extremity cellulitis and UTI. Patient was found to have cultures positive for Proteus mirabilis and beta hemolytic strep, s/p completed IV course of Vancomycin and Azactam. Patient subsequently found to have Klebsiella UTI s/p adequate treatment with Ciprofloxacin. Patient's course was also complicated by fecal impaction, currently resolved. Pt also found to have intermittent dyspnea, workup revealing a diagnosis of rheumatoid arthritis. Patient is awaiting placement in [facility], pending approval for Medicaid. Plan: 1. SOB/cough (improved): -Likely 2/2 to Asthma Exacerbation vs URI vs RA induced pulmonary fibrosis. -Cont with Duonebs [facility] Q6H -Pulm consult added 07/18/17: Dr. Love, Recs Appreciated -Continue with inhaled corticosteroids and LABA -RAS positive, titer 1:80, CCP IgG >250 -> Newly diagnosed RA. -RF - IgG and IgM - NEGATIVE. IgA- POSITIVE -BNP 397 - CXR showed no infiltrates. cardiomegaly. - CT Chest on 07/04/17: shows Mildly enlarged axillary lymph nodes and moderate cardiomegaly and mild vascular congestion - ESR (07/22): 76 elevated - Tessalon pereles, Robitussin, and Mucinex for cough - Tylenol prn for fevers - Incentive Spirometry - Chest PT - nightly CPAP 2. Hypokalemia: Resolved - K 3.7 - Cont. [facility] Potassium - Cont to monitor every other day - likely from diarrhea 3. HTN: -BP 169/80, will continue to monitor - Patient hypertensive on many episodes in hospital - No hx of htn. - Cont Lisinopril 5 mg PO daily. 4. Abdominal Distension, resolved: - likely 2/2 Constipation/fecal impaction - CT Abdomen Pelvis with PO and IV Contrast (07/18): Interstitial and airspace disease in the lung bases; mild cardiomegaly and atherosclerotic disease; fatty liver; gallstones; possible pyelonephritis; mild ileus, no obstruction; constipation with fecal impaction 5. Hyperglycemia: - 2/2 likely steroid induced - ISS, will taper off steroids. 6. Newly diagnosed Rheumatoid Arthritis: - Motrin for pain control - Cont inhaled corticosteroids and LABA for dyspnea. - Since patient is not experiencing an acute rheumatoid exacerbation, patient can follow up with a fish cake maker outpatient for further management ( Methotrexate). No rheumatology consult available in house. 7. Headache (Resolved) - Continue fiorcet PRN 8. Normocytic anemia - Hemoglobin stable - Monitor daily 9. Diarrhea -Stool C diff ordered still pending GI/DVT ppx: Heparin, Protonix Dispo: Patient awaiting placement in [facility]. <Juan Rodriguez - Last Filed: 08/05/17 15:42> Objective - Vital Signs/Intake and Output Vital Signs (last 24 hours): Temp Pulse Resp BP Pulse Ox 98.4 F 98 H 24 163/93 H 94 L 08/05/17 07:30 08/05/17 10:21 08/05/17 07:30 08/05/17 10:21 08/05/17 07:30 Intake and Output: 08/05/17 08/05/17 06:59 18:59 Intake Total 660 840 Balance 660 840 - Medications Medications: Current Medications Albuterol/Ipratropium (Duoneb 3 Mg/0.5 Mg (3 Ml) Ud) 3 ml IH [id number] PRN PRN Reason: Shortness of Breath Last Admin: 08/03/17 14:43 Dose: 3 ml Arformoterol Tartrate (Brovana) 15 mcg IH [id number] [facility] Last Admin: 08/05/17 07:50 Dose: 15 mcg Benzonatate (Tessalon Perles) 100 mg PO TID [facility] Last Admin: 08/05/17 14:59 Dose: 100 mg Budesonide (Pulmicort Respules) 0.5 mg IH [id number] [facility] Last Admin: 08/05/17 07:50 Dose: 0.5 mg Ferrous Sulfate (Feosol) 324 mg PO TID [facility] Last Admin: 08/05/17 14:59 Dose: 324 mg Guaifenesin (Robitussin) 200 mg PO Q4H PRN PRN Reason: Cough and congestion Last Admin: 08/05/17 08:37 Dose: 200 mg Heparin Sodium (Porcine) (Heparin) 5,000 units SC Q12 [facility] PRN Reason: Protocol Last Admin: 08/05/17 13:24 Dose: 5,000 units Ibuprofen (Motrin Tab) 600 mg PO Q6H PRN PRN Reason: Pain, severe (8-10) Last Admin: 07/31/17 16:39 Dose: 600 mg Insulin Human Lispro (Humalog Med) 0 units SC ACHS [facility] PRN Reason: Protocol Last Admin: 08/05/17 13:25 Dose: Not Given Lisinopril (Zestril) 5 mg PO DAILY [facility] Last Admin: 08/05/17 10:21 Dose: 5 mg Multivitamins/Minerals (Therapeutic-M Tab) 1 tab PO 0800 [facility] Last Admin: 08/05/17 08:37 Dose: 1 tab Nystatin (Nystop Topical Powder) 1 gm TOP DAILY [facility] Last Admin: 08/05/17 13:25 Dose: 1 applic Pantoprazole Sodium (Protonix Ec Tab) 40 mg PO ACB [facility] Last Admin: 08/05/17 08:37 Dose: 40 mg Potassium Chloride (K-Dur 20 Meq Er Tab) 40 meq PO HS [facility] Last Admin: 08/04/17 23:23 Dose: 40 meq Zinc Sulfate (Zinc Sulfate 220 Mg Cap) 220 mg PO DAILY [facility] Last Admin: 08/05/17 10:21 Dose: 220 mg - Labs Labs: 08/05/17 07:45 08/05/17 07:45 PT 13.1 SECONDS (9.4-12.5) H 06/15/17 11:00 INR 1.19 (0.93-1.08) H 06/15/17 11:00 APTT 31.3 Seconds (25.1-36.5) 06/15/17 11:00 Attending/Attestation - Attestation I have personally seen and examined this patient.: Yes I have fully participated in the care of the patient.: Yes I have reviewed all pertinent clinical information, including history, physical exam and plan: Yes Notes (Text): 08/05/17 15:41 67 year old female with past medical history of asthma and arthritis who initially presented with UTI and right LE cellulitis. She was seen by ID and has completed course of iv antibiotics. She was also seen by pulmonary for intermittent asthma and treated with duonebs and steroids. She was on colace and miralax for constipation which is now on hold due to loose stools. CDif study was ordered and pending. She is on lisinopril 5 mg for hypertension. If blood pressure remains elevated can increase to 10 mg. Patient is currently awaiting placement to [facility]. 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 Juan Rodriguez MD Hospitalist.
[2017-08-05] MEDS: Insulin Lispro (humaLOG) MEDIUM Coverage SC SCH ×4 (13:24→22:00)
[2017-08-05] MEDS: Nystatin 100,000 Units/gm Topical Pow(15 gm) TOP SCH (13:25)
--- NOTE | 2017-08-05 14:56 | PN ---
DATE: 08/05/2017 SUBJECTIVE: This is a 67-year-old female seen at bedside for inspection of her lower extremities for any breakdown in skin since she has been here at the hospital for a lengthy amount at time. The patient was initially seen for ulcerations to her lower legs secondary to dermatitis. These ulcerations have gone on to heal. The patient is seen at bedside and she is not wearing her Multi [employer] boots, she said her doctor told her to take them off, she does not have to wear them anymore. Her neurovascular status is unchanged from when she was previously seen. She does have elongated nails x10. There are all discolored with subungual debris and hypertrophy; however, they are not cutting into her skin. The patient has hydrocerin cream ordered for lubrication. Her legs have a heavy amount of secondary scaling and fissures secondary to her chronic stasis dermatitis. Her heels at this time have no open wounds; however, there is some non-blanchable erythema at the posterior heel on both lower extremities. ASSESSMENT: Stage I heel ulcers. PLAN OF TREATMENT: The patient was placed back into her Multi [employer]us boots. I told her that while she is in bed, she needs to wear them at all times. We will continue with hydrocerin cream on a daily basis to the feet and the legs. The patient may take the boots off when she gets out of bed to a chair and she does not need any special boots for walking. The patient will be seen weekly to monitor her skin changes. Buffy Cano DPM
[2017-08-05] MEDS: Potassium Chloride 20 mEq ER Tab PO SCH (22:33)
[2017-08-06 08:17] LABS: ALB/GLOB RATIO 0.9 (1.1-1.8); ALBUMIN 3.3 g/dL (3.0-4.8)
[2017-08-06] MEDS: Arformoterol 15 mcg/2 ml Inh Sol IH SCH (08:18)
[2017-08-06] MEDS: Budesonide 0.5 mg/2 ml Inhal Susp UD IH SCH (08:18)
[2017-08-06] MEDS: Insulin Lispro (humaLOG) MEDIUM Coverage SC SCH ×4 (08:48→22:24)
[2017-08-06] MEDS: Multivitamin With Minerals Tab PO SCH (09:06)
[2017-08-06] MEDS: Pantoprazole 40 mg EC Tab PO SCH (09:06)
[2017-08-06] MEDS: Nystatin 100,000 Units/gm Topical Pow(15 gm) TOP SCH (10:44)
[2017-08-06 12:19] LABS: ARTERIAL BLOOD GAS HCO3 30.6 mmol/L (21-28); ARTERIAL BLOOD GAS HEMOGLOBIN 10.1 g/dL (11.7-17.4); ARTERIAL BLOOD GAS O2 CAPACITY 13.9 mL/dl (16-24); ARTERIAL BLOOD GAS O2 CONTENT 13.6 ML/dl (15-23); ARTERIAL BLOOD GAS TCO2 33.4 mmol.L (22-28)
[2017-08-06 12:27] LABS: ARTERIAL BLOOD GAS PCO2 92 mm/Hg (35-45); ARTERIAL BLOOD GAS PH 7.13 (7.35-7.45)
[2017-08-06 12:33] LABS: BASO # 0.05 K/mm3 (0.0-2.0); BASO % 0.6 % (0.0-3.0); EOS # 0.2 (0.0-0.7); EOS % 2.7 % (1.5-5.0); GRAN # 6.44 (1.4-6.5); GRAN % 72.5 % (50.0-68.0); HEMOGLOBIN 10.2 g/dL (12.0-16.0); LYMPH # 0.9 (1.2-3.4); LYMPH % 9.6 % (22.0-35.0); MEAN CELL VOLUME 91.3 fl (80.0-105.0); MEAN CORPUSCULAR HEMOGLOBIN 26.2 pg (25.0-35.0); MEAN CORPUSCULAR HGB CONC 28.7 g/dl (31.0-37.0); MEAN PLATELET VOLUME 8.7 fl (7.0-11.0); MONO # 1.3 (0.1-0.6); MONO % 14.6 % (1.0-6.0); RBC 3.9 10^6/uL (3.5-6.1); RED CELL DISTRIBUTION WIDTH 25.9 % (11.5-14.5); WHITE BLOOD COUNT 8.9 10^3/ul (4.5-11.0)
[2017-08-06 12:43] LABS: ALBUMIN 3.4 g/dL (3.0-4.8); CALCIUM 7.9 mg/dL (8.4-10.5)
--- NOTE | 2017-08-06 12:52 | CP.PCM.PN ---
<Shan Zepeda - Last Filed: 08/06/17 15:46> Subjective - Date & Time of Evaluation Date of Evaluation: 08/06/17 Time of Evaluation: 06:00 - Subjective Subjective: Patient seen and examined bedside. Patient was lethargic and slow to answer questions. She stated she did not have any pain and that her diarrhea had resolved. She denied any abdominal pain, nausea, vomiting or trouble breathing. She stated her breathing was improving. Objective - Vital Signs/Intake and Output Vital Signs (last 24 hours): Temp Pulse Resp BP Pulse Ox 98.5 F 110 H 16 126/65 96 08/06/17 11:47 08/06/17 11:47 08/06/17 11:47 08/06/17 11:47 08/05/17 16:00 Intake and Output: 08/06/17 08/06/17 06:59 18:59 Intake Total 120 Balance 120 - Medications Medications: Current Medications Albuterol/Ipratropium (Duoneb 3 Mg/0.5 Mg (3 Ml) Ud) 3 ml IH [id number] PRN PRN Reason: Shortness of Breath Last Admin: 08/03/17 14:43 Dose: 3 ml Arformoterol Tartrate (Brovana) 15 mcg IH [id number] [facility] Last Admin: 08/06/17 08:18 Dose: 15 mcg Benzonatate (Tessalon Perles) 100 mg PO TID [facility] Last Admin: 08/06/17 09:06 Dose: 100 mg Budesonide (Pulmicort Respules) 0.5 mg IH [id number] [facility] Last Admin: 08/06/17 08:18 Dose: 0.5 mg Ferrous Sulfate (Feosol) 324 mg PO TID [facility] Last Admin: 08/06/17 09:07 Dose: 324 mg Guaifenesin (Robitussin) 200 mg PO Q4H PRN PRN Reason: Cough and congestion Last Admin: 08/05/17 22:33 Dose: 200 mg Heparin Sodium (Porcine) (Heparin) 5,000 units SC Q12 [facility] PRN Reason: Protocol Last Admin: 08/06/17 09:07 Dose: 5,000 units Ibuprofen (Motrin Tab) 600 mg PO Q6H PRN PRN Reason: Pain, severe (8-10) Last Admin: 07/31/17 16:39 Dose: 600 mg Insulin Human Lispro (Humalog Med) 0 units SC ACHS [facility] PRN Reason: Protocol Last Admin: 08/06/17 11:44 Dose: Not Given Lisinopril (Zestril) 5 mg PO DAILY [facility] Last Admin: 08/06/17 09:14 Dose: 5 mg Multivitamins/Minerals (Therapeutic-M Tab) 1 tab PO 0800 [facility] Last Admin: 08/06/17 09:06 Dose: 1 tab Nystatin (Nystop Topical Powder) 1 gm TOP DAILY [facility] Last Admin: 08/05/17 13:25 Dose: 1 applic Pantoprazole Sodium (Protonix Ec Tab) 40 mg PO ACB [facility] Last Admin: 08/06/17 09:06 Dose: 40 mg Potassium Chloride (K-Dur 20 Meq Er Tab) 40 meq PO HS [facility] Last Admin: 08/05/17 22:33 Dose: 40 meq Zinc Sulfate (Zinc Sulfate 220 Mg Cap) 220 mg PO DAILY [facility] Last Admin: 08/06/17 09:07 Dose: 220 mg - Labs Labs: 08/06/17 12:20 08/06/17 12:20 PT 13.1 SECONDS (9.4-12.5) H 06/15/17 11:00 INR 1.19 (0.93-1.08) H 06/15/17 11:00 APTT 31.3 Seconds (25.1-36.5) 06/15/17 11:00 - Constitutional Appears: No Acute Distress - Head Exam Head Exam: ATRAUMATIC, NORMAL INSPECTION, NORMOCEPHALIC - Eye Exam Eye Exam: EOMI, Normal appearance - ENT Exam ENT Exam: Mucous Membranes Dry - Neck Exam Neck Exam: absent: Lymphadenopathy, Tenderness - Respiratory Exam Respiratory Exam: Prolonged Expiratory Phase - Cardiovascular Exam Cardiovascular Exam: REGULAR RHYTHM - GI/Abdominal Exam GI & Abdominal Exam: Distended, Soft - Neurological Exam Neurological Exam: Awake Additional comments: MOre lethargic than her baseline - Skin Skin Exam: Normal Color, Warm Assessment and Plan - Assessment and Plan (Free Text) Assessment: 67 year old female with past medical history of asthma, arthritis, anemia, and obesity, presented with right lower extremity cellulitis and UTI. Patient was found to have cultures positive for Proteus mirabilis and beta hemolytic strep, s/p completed IV course of Vancomycin and Azactam. Patient subsequently found to have Klebsiella UTI s/p adequate treatment with Ciprofloxacin. Patient's course was also complicated by fecal impaction, currently resolved. Pt also found to have intermittent dyspnea, workup revealing a diagnosis of rheumatoid arthritis. Patient is awaiting placement in [facility], pending approval for Medicaid. Plan: 1. SOB/cough (improved): -Likely 2/2 to Asthma Exacerbation vs URI vs RA induced pulmonary fibrosis. -Cont with Duonebs [facility] Q6H -Pulm consult added 07/18/17: Dr. Love, Recs Appreciated -Continue with inhaled corticosteroids and LABA -RAS positive, titer 1:80, CCP IgG >250 -> Newly diagnosed RA. -RF - IgG and IgM - NEGATIVE. IgA- POSITIVE -BNP 397 - CXR showed no infiltrates. cardiomegaly. - CT Chest on 07/04/17: shows Mildly enlarged axillary lymph nodes and moderate cardiomegaly and mild vascular congestion - ESR (07/22): 76 elevated - Tessalon pereles, Robitussin, and Mucinex for cough - Tylenol prn for fevers - Incentive Spirometry - Chest PT - nightly CPAP 2. Lethargy-possibly secondary to hypercapnia -chest X ray repeated today showing no active disease -ABG pordered: pC02: 92 -Ph: 7.13 -Vitals, pulxe ox monitored -Ammonia level 29 -Pulmonaology consulted-Kate, patient will be transferred to the ICU -will repeat ABG in afternoon -contacted RT and will start CPAP 2. Hypokalemia: Resolved - K 4.4 - Cont. [facility] Potassium - Cont to monitor every other day 3. HTN-resolved -BP 126/65, will continue to monitor - Patient hypertensive on many episodes in hospital - No hx of htn. - Cont Lisinopril 5 mg PO daily. 4. Abdominal Distension - likely 2/2 Constipation/fecal impaction - CT Abdomen Pelvis with PO and IV Contrast (07/18): Interstitial and airspace disease in the lung bases; mild cardiomegaly and atherosclerotic disease; fatty liver; gallstones; possible pyelonephritis; mild ileus, no obstruction; constipation with fecal impaction 5. Hyperglycemia: - 2/2 likely steroid induced - ISS, steroids tapered and done 6. Newly diagnosed Rheumatoid Arthritis: - Motrin for pain control - Cont inhaled corticosteroids and LABA for dyspnea. - Since patient is not experiencing an acute rheumatoid exacerbation, patient can follow up with a economics consultant outpatient for further management ( Methotrexate). No rheumatology consult available in house. 7. Headache (Resolved) - Continue fiorcet PRN 8. Normocytic anemia - Hemoglobin stable - Monitor daily 9. Diarrhea -Stool C diff ordered still pending 10. CATE -Cr 1.8 -started NS @100 -Hold BILLY-lisinopril -cotninue to monitor GI/DVT ppx: Heparin, Protonix Dispo: Patient awaiting placement in [facility]. <Juan Rodriguez - Last Filed: 08/06/17 15:57> Objective - Vital Signs/Intake and Output Vital Signs (last 24 hours): Temp Pulse Resp BP Pulse Ox 98.5 F 108 H 16 126/65 96 08/06/17 11:47 08/06/17 14:08 08/06/17 11:47 08/06/17 11:47 08/05/17 16:00 Intake and Output: 08/06/17 08/06/17 06:59 18:59 Intake Total 120 Balance 120 - Medications Medications: Current Medications Albuterol/Ipratropium (Duoneb 3 Mg/0.5 Mg (3 Ml) Ud) 3 ml IH [id number] PRN PRN Reason: Shortness of Breath Last Admin: 08/06/17 13:47 Dose: 3 ml Albuterol/Ipratropium (Duoneb 3 Mg/0.5 Mg (3 Ml) Ud) 3 ml IH Q4H [facility] Benzonatate (Tessalon Perles) 100 mg PO TID [facility] Last Admin: 08/06/17 14:54 Dose: Not Given Budesonide (Pulmicort Respules) 0.5 mg IH [id number] [facility] Last Admin: 08/06/17 08:18 Dose: 0.5 mg Ferrous Sulfate (Feosol) 324 mg PO TID [facility] Last Admin: 08/06/17 14:54 Dose: Not Given Guaifenesin (Robitussin) 200 mg PO Q4H PRN PRN Reason: Cough and congestion Last Admin: 08/05/17 22:33 Dose: 200 mg Heparin Sodium (Porcine) (Heparin) 5,000 units SC Q12 [facility] PRN Reason: Protocol Last Admin: 08/06/17 09:07 Dose: 5,000 units Sodium Chloride (Sodium Chloride 0.9%) 1,000 mls @ 100 mls/hr IV .Q10H [facility] Last Admin: 08/06/17 14:49 Dose: 100 mls/hr Ibuprofen (Motrin Tab) 600 mg PO Q6H PRN PRN Reason: Pain, severe (8-10) Last Admin: 07/31/17 16:39 Dose: 600 mg Insulin Human Lispro (Humalog Med) 0 units SC ACHS [facility] PRN Reason: Protocol Last Admin: 08/06/17 11:44 Dose: Not Given Lisinopril (Zestril) 5 mg PO DAILY [facility] Last Admin: 08/06/17 09:14 Dose: 5 mg Methylprednisolone (Solu-Medrol) 60 mg IVP Q8 [facility] Last Admin: 08/06/17 14:50 Dose: 60 mg Multivitamins/Minerals (Therapeutic-M Tab) 1 tab PO 0800 [facility] Last Admin: 08/06/17 09:06 Dose: 1 tab Nystatin (Nystop Topical Powder) 1 gm TOP DAILY [facility] Last Admin: 08/06/17 10:44 Dose: 1 applic Pantoprazole Sodium (Protonix Ec Tab) 40 mg PO ACB [facility] Last Admin: 08/06/17 09:06 Dose: 40 mg Potassium Chloride (K-Dur 20 Meq Er Tab) 40 meq PO HS [facility] Last Admin: 08/05/17 22:33 Dose: 40 meq Zinc Sulfate (Zinc Sulfate 220 Mg Cap) 220 mg PO DAILY [facility] Last Admin: 08/06/17 09:07 Dose: 220 mg - Labs Labs: 08/06/17 12:20 08/06/17 12:20 PT 13.1 SECONDS (9.4-12.5) H 06/15/17 11:00 INR 1.19 (0.93-1.08) H 06/15/17 11:00 APTT 31.3 Seconds (25.1-36.5) 06/15/17 11:00 Attending/Attestation - Attestation I have personally seen and examined this patient.: Yes I have fully participated in the care of the patient.: Yes I have reviewed all pertinent clinical information, including history, physical exam and plan: Yes Notes (Text): 08/06/17 15:53 67 year old female with past medical history of asthma and arthritis who initially presented with UTI and right LE cellulitis. She was seen by ID and has completed course of iv antibiotics. She was also seen by pulmonary for intermittent asthma and treated with duonebs and steroids. This morning patient appeared lethargic and tachypneic. ABG reviewed showing respiratory acidosis with hypercapnea. CXR is negative. She is started on bipap. Pulmonary follow up is requested for possible ICU transfer. She is also found to have CATE on labs today. Will start on iv fluids and monitor. Will hold lisinopril for now. She was on initially on colace and miralax for constipation which is now on hold due to loose stools. CDif study was ordered and pending. She reports her loose stools have improved. Juan Rodriguez MD Hospitalist.
--- NOTE | 2017-08-06 13:10 | RAD ---
HISTORY: Asthma COMPARISON: 07/21/2017 FINDINGS: LUNGS: No active pulmonary disease. PLEURA: No significant pleural effusion identified, no pneumothorax apparent. CARDIOVASCULAR: Mild cardiomegaly OSSEOUS STRUCTURES: No significant abnormalities. VISUALIZED UPPER ABDOMEN: Normal. OTHER FINDINGS: None. IMPRESSION: No active disease.
[2017-08-06] MEDS ORDERED: Sodium Chloride 0.9% 1,000 ML IV SCH (13:30)
[2017-08-06 13:35] LABS: ARTERIAL BLOOD GAS HCO3 29.6 mmol/L (21-28); ARTERIAL BLOOD GAS O2 SAT 98.7 % (95-98); ARTERIAL BLOOD GAS PCO2 83 mm/Hg (35-45); ARTERIAL BLOOD GAS TCO2 32.1 mmol.L (22-28)
[2017-08-06] MEDS: Albuterol-Ipratrop 3 mg / 0.5 (3 ml) UD IH PRN (13:47)
--- NOTE | 2017-08-06 13:50 | RAD ---
HISTORY: respiratory failure COMPARISON: Earlier same day FINDINGS: LUNGS: No active pulmonary disease. PLEURA: No significant pleural effusion identified, no pneumothorax apparent. CARDIOVASCULAR: Normal. OSSEOUS STRUCTURES: No significant abnormalities. VISUALIZED UPPER ABDOMEN: Normal. OTHER FINDINGS: None. IMPRESSION: No active disease.
[2017-08-06 14:07] LABS: ARTERIAL BLOOD GAS PH 7.16 (7.35-7.45)
[2017-08-06 16:04] LABS: ARTERIAL BLOOD GAS HCO3 29.9 mmol/L (21-28); ARTERIAL BLOOD GAS HEMOGLOBIN 9.8 g/dL (11.7-17.4); ARTERIAL BLOOD GAS O2 CAPACITY 13.4 mL/dl (16-24); ARTERIAL BLOOD GAS O2 CONTENT 13.3 ML/dl (15-23); ARTERIAL BLOOD GAS PCO2 82 mm/Hg (35-45); ARTERIAL BLOOD GAS TCO2 32.4 mmol.L (22-28)
[2017-08-06 16:06] LABS: ARTERIAL BLOOD GAS PH 7.17 (7.35-7.45)
--- NOTE | 2017-08-06 16:08 | CP.PCM.PN ---
<Sergo Marino - Last Filed: 08/06/17 16:03> Subjective - Date & Time of Evaluation Date of Evaluation: 08/06/17 Time of Evaluation: 16:03 - Subjective Subjective: Podiatry note for Dr. Tariq 67 year old female seen at bedside for application of lotion to xerotic of bilateral legs and to ensure that multipodus boots were in place b/l. Patient was asleep for entirety of examination. Multipodus boots were not in place as requested. Objective - Vital Signs/Intake and Output Vital Signs (last 24 hours): Temp Pulse Resp BP Pulse Ox 98.5 F 108 H 16 126/65 96 08/06/17 11:47 08/06/17 14:08 08/06/17 11:47 08/06/17 11:47 08/05/17 16:00 Intake and Output: 08/06/17 08/06/17 06:59 18:59 Intake Total 120 Balance 120 - Medications Medications: Current Medications Albuterol/Ipratropium (Duoneb 3 Mg/0.5 Mg (3 Ml) Ud) 3 ml IH [id number] PRN PRN Reason: Shortness of Breath Last Admin: 08/06/17 13:47 Dose: 3 ml Albuterol/Ipratropium (Duoneb 3 Mg/0.5 Mg (3 Ml) Ud) 3 ml IH Q4H [facility] Benzonatate (Tessalon Perles) 100 mg PO TID [facility] Last Admin: 08/06/17 14:54 Dose: Not Given Budesonide (Pulmicort Respules) 0.5 mg IH [id number] [facility] Last Admin: 08/06/17 08:18 Dose: 0.5 mg Ferrous Sulfate (Feosol) 324 mg PO TID [facility] Last Admin: 08/06/17 14:54 Dose: Not Given Guaifenesin (Robitussin) 200 mg PO Q4H PRN PRN Reason: Cough and congestion Last Admin: 08/05/17 22:33 Dose: 200 mg Heparin Sodium (Porcine) (Heparin) 5,000 units SC Q12 [facility] PRN Reason: Protocol Last Admin: 08/06/17 09:07 Dose: 5,000 units Sodium Chloride (Sodium Chloride 0.9%) 1,000 mls @ 100 mls/hr IV .Q10H [facility] Last Admin: 08/06/17 14:49 Dose: 100 mls/hr Ibuprofen (Motrin Tab) 600 mg PO Q6H PRN PRN Reason: Pain, severe (8-10) Last Admin: 07/31/17 16:39 Dose: 600 mg Insulin Human Lispro (Humalog Med) 0 units SC ACHS [facility] PRN Reason: Protocol Last Admin: 08/06/17 11:44 Dose: Not Given Lisinopril (Zestril) 5 mg PO DAILY [facility] Last Admin: 08/06/17 09:14 Dose: 5 mg Methylprednisolone (Solu-Medrol) 60 mg IVP Q8 [facility] Last Admin: 08/06/17 14:50 Dose: 60 mg Multivitamins/Minerals (Therapeutic-M Tab) 1 tab PO 0800 [facility] Last Admin: 08/06/17 09:06 Dose: 1 tab Nystatin (Nystop Topical Powder) 1 gm TOP DAILY [facility] Last Admin: 08/06/17 10:44 Dose: 1 applic Pantoprazole Sodium (Protonix Ec Tab) 40 mg PO ACB [facility] Last Admin: 08/06/17 09:06 Dose: 40 mg Potassium Chloride (K-Dur 20 Meq Er Tab) 40 meq PO HS [facility] Last Admin: 08/05/17 22:33 Dose: 40 meq Zinc Sulfate (Zinc Sulfate 220 Mg Cap) 220 mg PO DAILY [facility] Last Admin: 08/06/17 09:07 Dose: 220 mg - Labs Labs: 08/06/17 12:20 08/06/17 12:20 PT 13.1 SECONDS (9.4-12.5) H 06/15/17 11:00 INR 1.19 (0.93-1.08) H 06/15/17 11:00 APTT 31.3 Seconds (25.1-36.5) 06/15/17 11:00 - Constitutional Appears: Well, Non-toxic, No Acute Distress - Extremities Exam Additional comments: LE focused exam: Vasc: DP/PT weakly palpable b/l. Skin temperature warm to warm from proximal to distal. CFT < 3 seconds to all digits. Diffuse +1 pitting edema noted to b/l LE Neuro: Epicritic and protective sensation grossly intact b/l Derm: Early skin breakdown noted to b/l heels. Xerosis noted to b/l legs and feet. Otherwise, no open lesions, wounds, maceration, xerosis, abnormal pigmentation or abnormal growths noted b/l MSK: No POP to b/l LE. Abduction of b/l legs appreciated. No other gross deformities noted b/l Assessment and Plan - Assessment and Plan (Free Text) Assessment: 67 year old female seen at bedside for application of lotion to xerotic of bilateral legs and to ensure that multipodus boots were in place b/l Plan: Patient seen and evaluated at bedside Plan discussed with attending Dr. Tariq Absent leukocytosis Phytoplex cream applied to b/l legs Multipodus boots reapplied - PLEASE KEEP MULTIPODUS BOOTS ON WHEN PATIENT IN BED Podiatry will continue to follow while patient in house <Jarrett Tariq - Last Filed: 08/07/17 08:54> Objective - Vital Signs/Intake and Output Vital Signs (last 24 hours): Temp Pulse Resp BP Pulse Ox 99.8 F H 67 18 117/54 L 100 08/07/17 06:00 08/07/17 07:50 08/07/17 08:50 08/07/17 07:45 08/07/17 08:50 Intake and Output: 08/07/17 08/07/17 06:59 18:59 Intake Total 1490 100 Output Total 250 Balance 1240 100 - Medications Medications: Current Medications Albuterol/Ipratropium (Duoneb 3 Mg/0.5 Mg (3 Ml) Ud) 3 ml IH [id number] PRN PRN Reason: Shortness of Breath Last Admin: 08/06/17 13:47 Dose: 3 ml Albuterol/Ipratropium (Duoneb 3 Mg/0.5 Mg (3 Ml) Ud) 3 ml IH Q4H [facility] Last Admin: 08/07/17 08:37 Dose: 3 ml Benzonatate (Tessalon Perles) 100 mg PO TID [facility] Last Admin: 08/06/17 17:54 Dose: Not Given Budesonide (Pulmicort Respules) 0.5 mg IH [id number] [facility] Last Admin: 08/07/17 08:37 Dose: 0.5 mg Ferrous Sulfate (Feosol) 324 mg PO TID [facility] Last Admin: 08/06/17 17:53 Dose: Not Given Guaifenesin (Robitussin) 200 mg PO Q4H PRN PRN Reason: Cough and congestion Last Admin: 08/05/17 22:33 Dose: 200 mg Heparin Sodium (Porcine) (Heparin) 5,000 units SC Q12 [facility] PRN Reason: Protocol Last Admin: 08/06/17 21:40 Dose: 5,000 units Sodium Chloride (Sodium Chloride 0.9%) 1,000 mls @ 100 mls/hr IV .Q10H [facility] Last Admin: 08/06/17 14:49 Dose: 100 mls/hr Propofol (Diprivan) 1,000 mg in 100 mls @ 2.885 mls/hr IV .Q24H PRN; Protocol; 5 MCG/KG/MIN PRN Reason: TITRATE PER MD ORDER Last Admin: 08/07/17 08:16 Dose: 40 mcg/kg/min, 23.079 mls/hr Lactated Ringer's (Lactated Ringer's) 1,000 mls @ 150 mls/hr IV .Q6H40M [facility] Last Admin: 08/07/17 03:45 Dose: 150 mls/hr Ibuprofen (Motrin Tab) 600 mg PO Q6H PRN PRN Reason: Pain, severe (8-10) Last Admin: 07/31/17 16:39 Dose: 600 mg Insulin Human Lispro (Humalog Med) 0 units SC ACHS [facility] PRN Reason: Protocol Last Admin: 08/06/17 22:24 Dose: Not Given Lisinopril (Zestril) 5 mg PO DAILY [facility] Last Admin: 08/06/17 09:14 Dose: 5 mg Methylprednisolone (Solu-Medrol) 60 mg IVP Q8 [facility] Last Admin: 08/07/17 06:11 Dose: 60 mg Multivitamins/Minerals (Therapeutic-M Tab) 1 tab PO 0800 [facility] Last Admin: 08/06/17 09:06 Dose: 1 tab Nystatin (Nystop Topical Powder) 1 gm TOP DAILY [facility] Last Admin: 08/06/17 10:44 Dose: 1 applic Pantoprazole Sodium (Protonix Inj) 40 mg IVP DAILY [facility] Zinc Sulfate (Zinc Sulfate 220 Mg Cap) 220 mg PO DAILY [facility] Last Admin: 08/06/17 09:07 Dose: 220 mg - Labs Labs: 08/07/17 05:30 08/07/17 05:30 PT 13.1 SECONDS (9.4-12.5) H 06/15/17 11:00 INR 1.19 (0.93-1.08) H 06/15/17 11:00 APTT 31.3 Seconds (25.1-36.5) 06/15/17 11:00 Attending/Attestation - Attestation I have personally seen and examined this patient.: Yes I have fully participated in the care of the patient.: Yes I have reviewed all pertinent clinical information, including history, physical exam and plan: Yes
[2017-08-06] MEDS ORDERED: Midazolam 2 MG/2 ML VIAL ONE (16:31)
[2017-08-06] MEDS ORDERED: Midazolam 2 MG/2 ML VIAL IVP ONE ×2 (16:31→17:55)
[2017-08-06] MEDS ORDERED: Propofol 10 mg/ml 1,000 MG/100 ML VIAL ONE (16:55)
[2017-08-06] MEDS: Propofol 10 mg/ml 1,000 MG/100 ML VIAL IV PRN ×2 (17:57→22:11)
--- NOTE | 2017-08-06 18:10 | RAD ---
HISTORY: ET NGT placement COMPARISON: . Time of the most recent examination: 13:37No prior. FINDINGS: LUNGS: No active pulmonary disease. PLEURA: No significant pleural effusion identified, no pneumothorax apparent. CARDIOVASCULAR: No radiographic findings to suggest acute or significant cardiovascular disease. OSSEOUS STRUCTURES: No significant abnormalities. VISUALIZED UPPER ABDOMEN: Normal. OTHER FINDINGS: Satisfactory position of recently placed endotracheal tube. IMPRESSION: No active disease. No significant interval change compared to the prior examination(s).
--- NOTE | 2017-08-06 18:48 | PN ---
DATE: 08/06/2017 SUBJECTIVE: The patient was seen and examined at bedside. She is very lethargic. She is on BiPAP 25/6. She is poorly communicative; however, open eyes on command. PHYSICAL EXAMINATION: VITAL SIGNS: Temperature 98.5, heart rate 104, blood pressure 126/65, respiratory rate 16, and oxygen saturations 95% on 40% FiO2. HEENT: Head and neck atraumatic. LUNGS: Decreased breath sounds bilaterally. HEART: Regular rate and rhythm. S1 and S2 normal. ABDOMEN: Soft, distended, but chronically so. No peritoneal signs. MUSCULOSKELETAL: Trace bilateral pedal and ankle edema. There are chronic cellulitic changes on the right lower extremity. SKIN: Moist, erythema in the right lower extremity. PSYCHIATRIC: The patient is very lethargic and somnolent. LABORATORY DATA: ABG shows 7.13/92/81 on FiO2 36%. WBC 8.9, hemoglobin 10.2, and platelet count 312. Sodium 135, potassium 4.4, chloride 102, carbon dioxide 31, BUN 18, creatinine 1.8 up from 1.6, glucose 104, AST 43, and ALT 48. MEDICATIONS: Brovana, budesonide 0.5 mg inhaled q.12 hours, Feosol, Robitussin p.r.n., heparin 5000 subcu q. 12h., ibuprofen, lisinopril, vitamins, Protonix, and Zinc. ASSESSMENT AND PLAN: This is a 67-year-old lady with hypercapnic respiratory failure secondary to combination of factors leading to severe hypoventilation: Low FRC, asthma, active RA with possible involvement of airways. Patient was put on BPAP however only minimally improved despite high driving pressure and remained lethargic. Her ability to protect airways continued to deteriorate and she was intubated by anesthesiology service. Solumedrol 60 mg IV q8, continuous nebs were given. Abx and septic workup restarted (blood, urine cultures, sputum cultures and procalcitoinin). CXR did not show distinctive infiltrate-->will repeat CXR in am. Christensen palced, LR at 150 cc/hr started and renal US was ordered to rule out obstructive uropathy. Choice of abx is challenging and it was discussed with ID: patient is allergic to PCNs and CATE would limit use of aminoglycosides. Will restart aztreonam and start Zyvox. Will continue with protective lung ventilation startegy, maintain I :E ratio at >1:2 to avoid hyperventilation. Will recheck ABG with lactate. We will continue to target euvolemia, euglycemia, normothermia and oxygen saturation more than 90%. We will continue with DVT and GI prophylaxes. The patient will be going to Intensive Care Unit. ccm time 40 min Bassem Love MD JERRE[facility]
[2017-08-06] MEDS: Albuterol-Ipratrop 3 mg / 0.5 (3 ml) UD IH SCH (20:30)
[2017-08-06] MEDS: Lactated Ringer's 1,000 ML IV SCH (20:30)
[2017-08-06 21:46] LABS: ARTERIAL BLOOD GAS HCO3 24.3 mmol/L (21-28); ARTERIAL BLOOD GAS O2 SAT 99.8 % (95-98); ARTERIAL BLOOD GAS PCO2 42 mm/Hg (35-45); ARTERIAL BLOOD GAS PH 7.37 (7.35-7.45); ARTERIAL BLOOD GAS TCO2 25.6 mmol.L (22-28)
[2017-08-06] MEDS ORDERED: Linezolid 600 mg in D5W 300 ml 600 MG/300 ML BAG IVPB SCH (22:00)
[2017-08-06] MEDS: Aztreonam 1 Gm in NS 100mL 100 ML IVPB SCH (23:00)
[2017-08-07] MEDS: Albuterol-Ipratrop 3 mg / 0.5 (3 ml) UD IH SCH ×6 (01:42→20:30)
[2017-08-07] MEDS: Propofol 10 mg/ml 1,000 MG/100 ML VIAL IV PRN ×5 (02:23→23:21)
[2017-08-07] MEDS: Lactated Ringer's 1,000 ML IV SCH ×2 (03:45→12:08)
[2017-08-07] MEDS: Aztreonam 1 Gm in NS 100mL 100 ML IVPB SCH ×2 (06:00→22:30)
[2017-08-07 06:34] LABS: BASO # 0.01 K/mm3 (0.0-2.0); BASO % 0.2 % (0.0-3.0); GRAN # 4.22 (1.4-6.5); GRAN % 86.5 % (50.0-68.0); HEMOGLOBIN 8.8 g/dL (12.0-16.0); LYMPH # 0.4 (1.2-3.4); MEAN CORPUSCULAR HEMOGLOBIN 25.7 pg (25.0-35.0); MEAN CORPUSCULAR HGB CONC 29.8 g/dl (31.0-37.0); MEAN PLATELET VOLUME 8.8 fl (7.0-11.0); MONO # 0.2 (0.1-0.6); MONO % 4.3 % (1.0-6.0); RBC 3.43 10^6/uL (3.5-6.1); RED CELL DISTRIBUTION WIDTH 25.5 % (11.5-14.5); WHITE BLOOD COUNT 4.9 10^3/ul (4.5-11.0)
[2017-08-07 06:53] LABS: ALB/GLOB RATIO 0.9 (1.1-1.8); ALBUMIN 2.9 g/dL (3.0-4.8); CALCIUM 7.4 mg/dL (8.4-10.5)
[2017-08-07] MEDS: Insulin Lispro (humaLOG) MEDIUM Coverage SC SCH ×4 (08:28→22:54)
[2017-08-07] MEDS: Budesonide 0.5 mg/2 ml Inhal Susp UD IH SCH (08:37)
[2017-08-07] MEDS: Multivitamin With Minerals Tab PO SCH (09:55)
--- NOTE | 2017-08-07 10:11 | RAD ---
HISTORY: NGT placement COMPARISON: No prior. FINDINGS: LUNGS: Mild interstitial changes. NG tube tip below the diaphragm. PLEURA: No significant pleural effusion identified, no pneumothorax apparent. CARDIOVASCULAR: Normal. OSSEOUS STRUCTURES: No significant abnormalities. VISUALIZED UPPER ABDOMEN: Normal. OTHER FINDINGS: None. IMPRESSION: Mild interstitial changes. NG tube tip below the diaphragm.
--- NOTE | 2017-08-07 10:33 | CP.PCM.PN ---
<Lane Acosta - Last Filed: 08/07/17 10:30> Subjective - Date & Time of Evaluation Date of Evaluation: 08/07/17 Time of Evaluation: 10:30 - Subjective Subjective: Podiatry Progress Note - Dr. Tariq 67 year old female patient seen in ICU for bilateral heel offloading. Patient asleep and intubated. Multipodus boots present at time of visit. Objective - Vital Signs/Intake and Output Vital Signs (last 24 hours): Temp Pulse Resp BP Pulse Ox 99.8 F H 67 18 117/54 L 100 08/07/17 06:00 08/07/17 07:50 08/07/17 08:50 08/07/17 07:45 08/07/17 08:50 Intake and Output: 08/07/17 08/07/17 06:59 18:59 Intake Total 1490 100 Output Total 250 Balance 1240 100 - Medications Medications: Current Medications Albuterol/Ipratropium (Duoneb 3 Mg/0.5 Mg (3 Ml) Ud) 3 ml IH [id number] PRN PRN Reason: Shortness of Breath Last Admin: 08/06/17 13:47 Dose: 3 ml Albuterol/Ipratropium (Duoneb 3 Mg/0.5 Mg (3 Ml) Ud) 3 ml IH Q4H [facility] Last Admin: 08/07/17 08:37 Dose: 3 ml Benzonatate (Tessalon Perles) 100 mg PO TID [facility] Last Admin: 08/07/17 09:55 Dose: 100 mg Budesonide (Pulmicort Respules) 0.5 mg IH [id number] [facility] Last Admin: 08/07/17 08:37 Dose: 0.5 mg Ferrous Sulfate (Feosol) 324 mg PO TID [facility] Last Admin: 08/07/17 09:55 Dose: 324 mg Guaifenesin (Robitussin) 200 mg PO Q4H PRN PRN Reason: Cough and congestion Last Admin: 08/05/17 22:33 Dose: 200 mg Heparin Sodium (Porcine) (Heparin) 5,000 units SC Q12 [facility] PRN Reason: Protocol Last Admin: 08/06/17 21:40 Dose: 5,000 units Propofol (Diprivan) 1,000 mg in 100 mls @ 2.885 mls/hr IV .Q24H PRN; Protocol; 5 MCG/KG/MIN PRN Reason: TITRATE PER MD ORDER Last Admin: 08/07/17 08:16 Dose: 40 mcg/kg/min, 23.079 mls/hr Lactated Ringer's (Lactated Ringer's) 1,000 mls @ 150 mls/hr IV .Q6H40M [facility] Last Admin: 08/07/17 03:45 Dose: 150 mls/hr Ibuprofen (Motrin Tab) 600 mg PO Q6H PRN PRN Reason: Pain, severe (8-10) Last Admin: 07/31/17 16:39 Dose: 600 mg Insulin Human Lispro (Humalog Med) 0 units SC ACHS [facility] PRN Reason: Protocol Last Admin: 08/07/17 08:28 Dose: Not Given Lisinopril (Zestril) 5 mg PO DAILY [facility] Last Admin: 08/06/17 09:14 Dose: 5 mg Methylprednisolone (Solu-Medrol) 60 mg IVP Q8 [facility] Last Admin: 08/07/17 06:11 Dose: 60 mg Multivitamins/Minerals (Therapeutic-M Tab) 1 tab PO 0800 [facility] Last Admin: 08/07/17 09:55 Dose: 1 tab Nystatin (Nystop Topical Powder) 1 gm TOP DAILY [facility] Last Admin: 08/06/17 10:44 Dose: 1 applic Pantoprazole Sodium (Protonix Inj) 40 mg IVP DAILY [facility] Last Admin: 08/07/17 09:56 Dose: 40 mg Zinc Sulfate (Zinc Sulfate 220 Mg Cap) 220 mg PO DAILY [facility] Last Admin: 08/07/17 09:55 Dose: 220 mg - Labs Labs: 08/07/17 05:30 08/07/17 05:30 PT 13.1 SECONDS (9.4-12.5) H 06/15/17 11:00 INR 1.19 (0.93-1.08) H 06/15/17 11:00 APTT 31.3 Seconds (25.1-36.5) 06/15/17 11:00 - Constitutional Appears: Non-toxic, No Acute Distress - Extremities Exam Additional comments: LE focused exam: Vasc: DP/PT weakly palpable b/l. Skin temperature warm to warm from proximal to distal. CFT < 3 seconds to all digits. Diffuse +1 pitting edema noted to b/l LE Neuro: Epicritic and protective sensation grossly intact b/l Derm: Early skin breakdown noted to b/l heels. Xerosis noted to b/l legs and feet. Otherwise, no open lesions, wounds, maceration, xerosis, abnormal pigmentation or abnormal growths noted b/l MSK: No POP to b/l LE. Abduction of b/l legs appreciated. No other gross deformities noted b/l Assessment and Plan - Assessment and Plan (Free Text) Assessment: 67 year old female patient with resolving DTI Plan: Patient seen and evaluated at bedside with attending, Dr. Tariq Continue multipodus boots at all times while patient in bed Stable per podiatry standpoint Podiatry to sign off at this time, please reconsult if new issues arise <Jarrett Tariq - Last Filed: 08/10/17 11:19> Objective - Vital Signs/Intake and Output Vital Signs (last 24 hours): Temp Pulse Resp BP Pulse Ox 93.4 F L 52 L 28 H 140/71 98 08/10/17 06:40 08/10/17 06:40 08/10/17 08:20 08/10/17 06:00 08/10/17 08:20 Intake and Output: 08/10/17 08/10/17 06:59 18:59 Intake Total 2024 110 Output Total 800 Balance 1225 110 - Medications Medications: Current Medications Albuterol/Ipratropium (Duoneb 3 Mg/0.5 Mg (3 Ml) Ud) 3 ml IH [id number] PRN PRN Reason: Shortness of Breath Last Admin: 08/06/17 13:47 Dose: 3 ml Albuterol/Ipratropium (Duoneb 3 Mg/0.5 Mg (3 Ml) Ud) 3 ml IH Q4H [facility] Last Admin: 08/10/17 08:19 Dose: 3 ml Benzonatate (Tessalon Perles) 100 mg PO TID [facility] Last Admin: 08/10/17 09:02 Dose: 100 mg Calcium Acetate (Phoslo) 667 mg PO TID [facility] Last Admin: 08/10/17 09:01 Dose: 667 mg Ferrous Sulfate (Feosol) 324 mg PO TID [facility] Last Admin: 08/10/17 09:01 Dose: 324 mg Guaifenesin (Robitussin) 200 mg PO Q4H PRN PRN Reason: Cough and congestion Last Admin: 08/05/17 22:33 Dose: 200 mg Propofol (Diprivan) 1,000 mg in 100 mls @ 2.885 mls/hr IV .Q24H PRN; Protocol; 5 MCG/KG/MIN PRN Reason: TITRATE PER MD ORDER Last Titration: 08/10/17 08:56 Dose: 30 mcg/kg/min, 17.309 mls/hr Aztreonam (Azactam 1 Gm) 100 mls @ 100 mls/hr IVPB Q12 [facility] PRN Reason: Protocol Last Admin: 08/10/17 09:02 Dose: 100 mls/hr Metronidazole (Flagyl) 500 mg in 100 mls @ 100 mls/hr IVPB Q8 [facility] PRN Reason: Protocol Last Admin: 08/10/17 05:19 Dose: 100 mls/hr Linezolid (Zyvox 600mg/300ml D5w) 600 mg in 300 mls @ 200 mls/hr IVPB Q12 [facility] PRN Reason: Protocol Last Admin: 08/10/17 09:07 Dose: 200 mls/hr Lactated Ringer's (Lactated Ringer's) 1,000 mls @ 75 mls/hr IV .[id number] [facility] Last Admin: 08/10/17 04:00 Dose: 75 mls/hr Fentanyl Citrate (Fentanyl Citrate/Sodium Chloride 1 Mg/100 Ml) 1,000 mcg in 100 mls @ 5 mls/hr IV .Q20H PRN; Protocol; 50 MCG/HR PRN Reason: TITRATE PER MD ORDER Last Titration: 08/10/17 10:22 Dose: 10 mcg/hr, 1 mls/hr Insulin Human Lispro (Humalog Med) 0 units SC ACHS [facility] PRN Reason: Protocol Last Admin: 08/10/17 08:18 Dose: Not Given Lisinopril (Zestril) 5 mg PO DAILY [facility] Last Admin: 08/06/17 09:14 Dose: 5 mg Methylprednisolone (Solu-Medrol) 60 mg IVP Q12H [facility] Last Admin: 08/09/17 22:59 Dose: 60 mg Multivitamins/Minerals (Therapeutic-M Tab) 1 tab PO 0800 [facility] Last Admin: 08/10/17 08:58 Dose: 1 tab Nystatin (Nystop Topical Powder) 1 gm TOP DAILY [facility] Last Admin: 08/10/17 09:02 Dose: 1 applic Pantoprazole Sodium (Protonix Inj) 40 mg IVP DAILY [facility] Last Admin: 08/10/17 09:02 Dose: 40 mg Sodium Bicarbonate (Sodium Bicarbonate Tab) 1,300 mg PO BID [facility] Last Admin: 08/10/17 09:01 Dose: 1,300 mg Zinc Sulfate (Zinc Sulfate 220 Mg Cap) 220 mg PO DAILY [facility] Last Admin: 08/10/17 09:03 Dose: 220 mg - Labs Labs: 08/10/17 06:30 08/10/17 06:30 PT 13.1 SECONDS (9.4-12.5) H 06/15/17 11:00 INR 1.19 (0.93-1.08) H 06/15/17 11:00 APTT 31.3 Seconds (25.1-36.5) 06/15/17 11:00 Attending/Attestation - Attestation I have personally seen and examined this patient.: Yes I have fully participated in the care of the patient.: Yes I have reviewed all pertinent clinical information, including history, physical exam and plan: Yes
--- NOTE | 2017-08-07 11:20 | US ---
PROCEDURE: Ultrasound of the Kidneys HISTORY: CATE COMPARISON: None available. TECHNIQUE: Sonogram of the kidneys. FINDINGS: RIGHT KIDNEY: Measures: cm. Normal in size, contour and echogenicity. No stone, solid mass lesion or hydronephrosis visualized. LEFT KIDNEY: Measures: cm. Normal in size, contour and echogenicity. No stone, solid mass lesion or hydronephrosis visualized. OTHER FINDINGS: None. IMPRESSION: Unremarkable renal sonogram.
--- NOTE | 2017-08-07 11:55 | CP.PCM.CON ---
History of Present Illness - History of Present Illness History of Present Illness: Initial Nephrology Consultation (covering for Dr Agustín Bai): Assessment: critical non-oliguric Acute Kidney Injury (N17.9) likely hemodynamic, GI fluid loss. possible AIN due to meds/antibiotics morbid obesity, arthritis, anemia, asthma, RAS and RA factor+ recent cellulitis, UTI, fecal impaction acute hypercapnic respi failure Plan No acute need for renal replacement therapy at this time. maintain hemodynamics stable. No ACEI/ARB due to CATE Monitor Input/Output, daily weights and renal function with basic metabolic panel continue with IVF as ordered supplement electrolytes as needed check urine studies as ordered. check c3/c4 and anca as well Dose meds/antibiotics for reduced GFR. Avoid fleets enema/magnesium based laxatives. Avoid nephrotoxins/NSAIDs/ iodinated contrast (unless needed emergently) Glycemic control Further work up/management as per primary team Thanks for allowing me to participate in care of your patient. Will follow patient with you. Please call if any Qs. d/w team Dr Abel Pierson Office: [phone] Chief Complaint; unable to obtain reason for consult: kidney failure source of info: EMR HPI: Pt is a 67 F with hx of morbid obesity, arthritis, anemia, asthma, RAS and RA factor+ who had prolonged hospitalization for cellulitis which was treated with multiple antibiotics and also had UTI treated with antibiotics, constipation with fecal impaction, was awaiting to go to rehab but had hypercapnic respi failure 08/06/17 which required intubation. pt also having diarrhoea now. renal consulted since serum creatinine 1.6 on 08/06 and 2.6 . her serum creatinine was normal prior to that No recent iodinated contrast exposure. intermittent episodes of low BP (90/50) ROS: pt intubated Physical Examination: General Appearance: orally intubated. no distress. obese Vitals reviewed and noted as below Head; Atraumatic, normocephalic ENT: orally intubated EYES: Pupils are equal, round and reactive to light accommodation. Eye muscles and extraocular movement intact. Sclera is anicteric. Neck; supple no lymphadenopathy, no thyromegaly or bruit Lungs: Normal respiratory rate/effort. Breath sounds bilateral equal and clear Heart: Normal rate. s1s2 normal. No rub or gallop. Extremities: no edema. No varicose veins Neurological: Patient is sedated Skin: Warm and dry. Normal turgor. No rash. Palpitation: Normal elasticity for age. dressing over legs + Abdomen: Abdomen is soft. Bowel sounds +. There is no abdominal tenderness, no guarding/rigidity no organomegaly. has rectal tube for diarrhoea Psych: unable MSK: no joint tenderness or swelling. Digits and nails normal, no deformity : kidney or bladder not palpable. has khanna + Labs/imaging reviewed. Past medical history, past surgical history, family history, social history, allergy reviewed and noted as below Family hx: no hx of CKD. Rest non-contributory work up: renal sono: neg Past Patient History - Past Social History Smoking Status: Never Smoked Alcohol: None Drugs: Denies Home Situation {Lives}: Friends - CARDIAC Hx Cardiac Disorders: No - PULMONARY Hx Asthma: Yes - NEUROLOGICAL Hx Neurological Disorder: No - HEENT Hx HEENT Problems: No - RENAL Hx Chronic Kidney Disease: No - ENDOCRINE/METABOLIC Other/Comment: thyroid disease - HEMATOLOGICAL/ONCOLOGICAL Other/Comment: vitamin c deficiency - INTEGUMENTARY Hx Dermatological Problems: No - MUSCULOSKELETAL/RHEUMATOLOGICAL Hx Arthritis: Yes Hx Falls: Yes - GASTROINTESTINAL Hx Gastrointestinal Disorders: No - GENITOURINARY/GYNECOLOGICAL Hx Genitourinary Disorders: No - PSYCHIATRIC Hx Psychophysiologic Disorder: No Hx Substance Use: No - SURGICAL HISTORY Hx Orthopedic Surgery: Yes (L knee) Other/Comment: left knee surgery - ANESTHESIA Hx Anesthesia: Yes Hx Anesthesia Reactions: No Meds Home Medications: Home Medication List Medication Instructions Recorded Confirmed Type Acetaminophen [Tylenol 325mg tab] 650 mg PO Q4 PRN tab 07/16/17 Rx Acetaminophen/Butalbital/Caf 1 tab PO Q4H PRN tab 07/16/17 Rx [Fioricet] Albuterol/Ipratropium [Duoneb 3 3 ml IH [id number] PRN neb 07/16/17 Rx mg/0.5 mg (3 ml) UD] Benzonatate [Tessalon Perles] 100 mg PO TID sgl 07/16/17 Rx Docusate [Colace] 100 mg PO DAILY cap 07/16/17 Rx Ferrous Sulfate [Feosol] 324 mg PO TID ect 07/16/17 Rx Heparin 5,000 units SC Q12 vial 07/16/17 Rx Hydrocerin [Hydrocerin Cream] 1 ea TOP DAILY jar 07/16/17 Rx Metoprolol Tartrate [Lopressor] 25 mg PO TID tab 07/16/17 Rx Nystatin [Nystop Topical Powder] 1 gm TOP DAILY bottle 07/16/17 Rx Pantoprazole [Protonix EC Tab] 40 mg PO 0600 ect 07/16/17 Rx Zinc [Zinc Sulfate 220 mg Cap] 220 mg PO DAILY cap 07/16/17 Rx guaiFENesin [Robitussin] 100 mg PO Q4H PRN udc 07/16/17 Rx guaiFENesin/Dextromethorphan 1 tab PO BID tab 07/16/17 Rx [Mucinex-DM 600-30 mg] Allergies/Adverse Reactions: Allergies Allergy/AdvReac Type Severity Reaction Status Date / Time Penicillins Allergy ITCHING Verified 06/15/17 09:47 - Medications Medications: Current Medications Albuterol/Ipratropium (Duoneb 3 Mg/0.5 Mg (3 Ml) Ud) 3 ml IH [id number] PRN PRN Reason: Shortness of Breath Last Admin: 08/06/17 13:47 Dose: 3 ml Albuterol/Ipratropium (Duoneb 3 Mg/0.5 Mg (3 Ml) Ud) 3 ml IH Q4H [facility] Last Admin: 08/07/17 11:10 Dose: 3 ml Benzonatate (Tessalon Perles) 100 mg PO TID [facility] Last Admin: 08/07/17 09:55 Dose: 100 mg Budesonide (Pulmicort Respules) 0.5 mg IH [id number] [facility] Last Admin: 08/07/17 08:37 Dose: 0.5 mg Ferrous Sulfate (Feosol) 324 mg PO TID [facility] Last Admin: 08/07/17 09:55 Dose: 324 mg Guaifenesin (Robitussin) 200 mg PO Q4H PRN PRN Reason: Cough and congestion Last Admin: 08/05/17 22:33 Dose: 200 mg Heparin Sodium (Porcine) (Heparin) 5,000 units SC Q12 [facility] PRN Reason: Protocol Last Admin: 08/06/17 21:40 Dose: 5,000 units Propofol (Diprivan) 1,000 mg in 100 mls @ 2.885 mls/hr IV .Q24H PRN; Protocol; 5 MCG/KG/MIN PRN Reason: TITRATE PER MD ORDER Last Admin: 08/07/17 08:16 Dose: 40 mcg/kg/min, 23.079 mls/hr Lactated Ringer's (Lactated Ringer's) 1,000 mls @ 150 mls/hr IV .Q6H40M [facility] Last Admin: 08/07/17 03:45 Dose: 150 mls/hr Insulin Human Lispro (Humalog Med) 0 units SC ACHS [facility] PRN Reason: Protocol Last Admin: 08/07/17 08:28 Dose: Not Given Lisinopril (Zestril) 5 mg PO DAILY [facility] Last Admin: 08/06/17 09:14 Dose: 5 mg Methylprednisolone (Solu-Medrol) 60 mg IVP Q8 [facility] Last Admin: 08/07/17 06:11 Dose: 60 mg Multivitamins/Minerals (Therapeutic-M Tab) 1 tab PO 0800 [facility] Last Admin: 08/07/17 09:55 Dose: 1 tab Nystatin (Nystop Topical Powder) 1 gm TOP DAILY [facility] Last Admin: 08/06/17 10:44 Dose: 1 applic Pantoprazole Sodium (Protonix Inj) 40 mg IVP DAILY [facility] Last Admin: 08/07/17 09:56 Dose: 40 mg Zinc Sulfate (Zinc Sulfate 220 Mg Cap) 220 mg PO DAILY [facility] Last Admin: 08/07/17 09:55 Dose: 220 mg Results - Vital Signs Recent Vital Signs: Last Vital Signs Temp 99.8 F H 08/07/17 06:00 Pulse 77 08/07/17 11:30 Resp 18 08/07/17 08:50 BP 102/57 L 08/07/17 11:30 Pulse Ox 90 L 08/07/17 11:30 - Labs Result Diagrams: 08/07/17 05:30 08/07/17 05:30 Labs: Laboratory Results - last 24 hr 08/06/17 08/06/17 08/06/17 11:40 12:10 12:20 WBC RBC Hgb Hct MCV MCH MCHC RDW Plt Count MPV Gran % Lymph % (Auto) [place] % (Auto) Eos % (Auto) Baso % (Auto) Gran # Lymph # [place] # Eos # Baso # pCO2 92 H* pO2 81.0 HCO3 30.6 H ABG pH 7.13 L* ABG Total CO2 33.4 H ABG O2 Saturation 98.0 ABG O2 Content 13.6 L ABG Base Excess -0.2 ABG Hemoglobin 10.1 L ABG Carboxyhemoglobin 1.9 H POC ABG HHb (Measured) 1.9 ABG Methemoglobin 1.1 ABG O2 Capacity 13.9 L ABG Potassium Hgb O2 Saturation 95.0 Glucose Lactate FiO2 36.0 Sodium Potassium Chloride Carbon Dioxide Anion Gap BUN Creatinine Est GFR ( Amer) Est GFR (Non-Af Amer) POC Glucose (mg/dL) 103 Random Glucose Calcium Total Bilirubin AST ALT Alkaline Phosphatase Ammonia 29 Total Protein Albumin Globulin Albumin/Globulin Ratio Arterial Blood Potassium 08/06/17 08/06/17 08/06/17 12:20 12:20 13:30 WBC 8.9 RBC 3.90 Hgb 10.2 L Hct 35.6 L MCV 91.3 D MCH 26.2 MCHC 28.7 L RDW 25.9 H Plt Count 312 MPV 8.7 Gran % 72.5 H Lymph % (Auto) 9.6 L [place] % (Auto) 14.6 H Eos % (Auto) 2.7 Baso % (Auto) 0.6 Gran # 6.44 Lymph # 0.9 L [place] # 1.3 H Eos # 0.2 Baso # 0.05 pCO2 83 H* pO2 87.0 HCO3 29.6 H ABG pH 7.16 L* ABG Total CO2 32.1 H ABG O2 Saturation 98.7 H ABG O2 Content ABG Base Excess -1.4 ABG Hemoglobin ABG Carboxyhemoglobin POC ABG HHb (Measured) ABG Methemoglobin ABG O2 Capacity ABG Potassium 4.0 Hgb O2 Saturation Glucose 90 Lactate 0.3 L FiO2 40.0 Sodium 140 141.0 Potassium 4.4 Chloride 102 108.0 H Carbon Dioxide 31 Anion Gap 12 BUN 18 Creatinine 1.8 H Est GFR ( Amer) 34 Est GFR (Non-Af Amer) 28 POC Glucose (mg/dL) Random Glucose 104 Calcium 7.9 L Total Bilirubin 0.3 AST 43 H ALT 48 Alkaline Phosphatase 95 Ammonia Total Protein 7.0 Albumin 3.4 Globulin 3.6 Albumin/Globulin Ratio 1.0 L Arterial Blood Potassium 4.0 08/06/17 08/06/17 08/06/17 15:55 17:56 21:30 WBC RBC Hgb Hct MCV MCH MCHC RDW Plt Count MPV Gran % Lymph % (Auto) [place] % (Auto) Eos % (Auto) Baso % (Auto) Gran # Lymph # [place] # Eos # Baso # pCO2 82 H* 42 pO2 95.0 209.0 H HCO3 29.9 H 24.3 ABG pH 7.17 L* 7.37 ABG Total CO2 32.4 H 25.6 ABG O2 Saturation 99.0 H 99.8 H ABG O2 Content 13.3 L ABG Base Excess 0.1 -1.1 ABG Hemoglobin 9.8 L ABG Carboxyhemoglobin 2.0 H POC ABG HHb (Measured) 1.0 ABG Methemoglobin 1.1 ABG O2 Capacity 13.4 L ABG Potassium 4.2 Hgb O2 Saturation 95.8 Glucose 118 H Lactate 0.9 FiO2 40.0 80.0 Sodium 139.0 Potassium Chloride 107.0 Carbon Dioxide Anion Gap BUN Creatinine Est GFR ( Amer) Est GFR (Non-Af Amer) POC Glucose (mg/dL) 120 H Random Glucose Calcium Total Bilirubin AST ALT Alkaline Phosphatase Ammonia Total Protein Albumin Globulin Albumin/Globulin Ratio Arterial Blood Potassium 4.2 08/06/17 08/07/17 08/07/17 21:51 05:30 05:30 WBC 4.9 D RBC 3.43 L Hgb 8.8 L Hct 29.5 L MCV 86.0 D MCH 25.7 MCHC 29.8 L RDW 25.5 H Plt Count 289 MPV 8.8 Gran % 86.5 H Lymph % (Auto) 9.0 L [place] % (Auto) 4.3 Eos % (Auto) 0.0 L Baso % (Auto) 0.2 Gran # 4.22 Lymph # 0.4 L [place] # 0.2 Eos # 0.0 Baso # 0.01 pCO2 pO2 HCO3 ABG pH ABG Total CO2 ABG O2 Saturation ABG O2 Content ABG Base Excess ABG Hemoglobin ABG Carboxyhemoglobin POC ABG HHb (Measured) ABG Methemoglobin ABG O2 Capacity ABG Potassium Hgb O2 Saturation Glucose Lactate FiO2 Sodium 139 Potassium 3.7 Chloride 104 Carbon Dioxide 23 Anion Gap 15 BUN 28 H Creatinine 2.6 H Est GFR ( Amer) 22 Est GFR (Non-Af Amer) 18 POC Glucose (mg/dL) 122 H Random Glucose 115 H Calcium 7.4 L Total Bilirubin 0.3 AST 33 ALT 42 Alkaline Phosphatase 87 Ammonia Total Protein 6.0 Albumin 2.9 L Globulin 3.2 Albumin/Globulin Ratio 0.9 L Arterial Blood Potassium 08/07/17 08/07/17 05:54 07:22 WBC RBC Hgb Hct MCV MCH MCHC RDW Plt Count MPV Gran % Lymph % (Auto) [place] % (Auto) Eos % (Auto) Baso % (Auto) Gran # Lymph # [place] # Eos # Baso # pCO2 pO2 HCO3 ABG pH ABG Total CO2 ABG O2 Saturation ABG O2 Content ABG Base Excess ABG Hemoglobin ABG Carboxyhemoglobin POC ABG HHb (Measured) ABG Methemoglobin ABG O2 Capacity ABG Potassium Hgb O2 Saturation Glucose Lactate FiO2 Sodium Potassium Chloride Carbon Dioxide Anion Gap BUN Creatinine Est GFR ( Amer) Est GFR (Non-Af Amer) POC Glucose (mg/dL) 111 H 114 H Random Glucose Calcium Total Bilirubin AST ALT Alkaline Phosphatase Ammonia Total Protein Albumin Globulin Albumin/Globulin Ratio Arterial Blood Potassium
[2017-08-07] MEDS: Nystatin 100,000 Units/gm Topical Pow(15 gm) TOP SCH (12:17)
--- NOTE | 2017-08-07 14:21 | CP.PCM.PN ---
<Darryl Bai - Last Filed: 08/07/17 14:01> Subjective - Date & Time of Evaluation Date of Evaluation: 08/07/17 Time of Evaluation: 08:40 - Subjective Subjective: Subjective: Patient seen and examined at bedside. Resting comfortably in bed. Experienced hypercapnic respiratory failure on 08/06/17 which required intubation. Currently is intubated and sedated. 12-point review of systems cannot be ascertained at this time due to altered mental status. Physical Examination: - Constitutional Appears: No Acute Distress - Head Exam Head Exam: ATRAUMATIC, NORMAL INSPECTION, NORMOCEPHALIC - Eye Exam Eye Exam: Pupils are equal, round and reactive to light accommodation - ENT Exam ENT Exam: orally intubated - Neck Exam Neck Exam: absent: Lymphadenopathy, Tenderness - Respiratory Exam Respiratory Exam: mechanical breath sounds appreciated - Cardiovascular Exam Cardiovascular Exam: REGULAR RHYTHM - GI/Abdominal Exam GI & Abdominal Exam: Distended, Soft, rectal tube in position - Neurological Exam Neurological Exam: patient is intubated and sedated - Skin Skin Exam: Normal Color, Warm Assessment and Plan: Patient is a 67 year old female with past medical history of asthma, arthritis, anemia, and obesity who was admitted for right lower extremity cellulitis and UTI. Patient was found to have cultures positive for Proteus mirabilis and beta hemolytic strep, s/p completed IV course of Vancomycin and Azactam. Patient subsequently found to have Klebsiella UTI s/p adequate treatment with Ciprofloxacin. Patient's course was also complicated by fecal impaction, currently resolved. Pt also found to have intermittent dyspnea, workup revealing a diagnosis of rheumatoid arthritis. Patient is awaiting placement in [facility], pending approval for Medicaid. Patient experienced respiratory failure and was intubated/ transferred to the ICU. Hypercapnic Respiratory Failure - patient is intubated and ventialted- continue current setting - CXR reviewed and appreciated- showed no distinctive infiltrate - ABG reviewed and appreciated- pH normalized - c/w duonebs and solumedrol HTN - BP reviewed, trended, and appreciated - hold zestril due to CATE Abdominal Distension - likely 2/2 Constipation/fecal impaction - CT Abdomen Pelvis with PO and IV Contrast (07/18): Interstitial and airspace disease in the lung bases; mild cardiomegaly and atherosclerotic disease; fatty liver; gallstones; possible pyelonephritis; mild ileus, no obstruction; constipation with fecal impaction Normocytic anemia - Hemoglobins reviewed, trended, and appreciated- decrease noted, will transfuse if Hbg < 7.0 - Monitor daily Diarrhea - rectal tube in place - Stool C diff- positive antigen, negative toxin - repeat stool c. diff pending Non Oliguric CATE - creatining and bun reviewed, trended, and appreciated- worsening - Nephrology consulted- recommendation appreciated- possible AIN due to meds/ antibiotic - c/w LR @150 - Hold BILLY-lisinopril - continue to monitor via daily CMP Prophylaxis: - GI ppx Protonix - DVT ppx: Heparin Patient seen with, case discussed with, and plan approved by attending physician , Dr. Rodriguez. Objective - Vital Signs/Intake and Output Vital Signs (last 24 hours): Temp Pulse Resp BP Pulse Ox 99.8 F H 77 18 102/57 L 90 L 08/07/17 06:00 08/07/17 11:30 08/07/17 08:50 08/07/17 11:30 08/07/17 11:30 Intake and Output: 08/07/17 08/07/17 06:59 18:59 Intake Total 1490 200 Output Total 250 Balance 1240 200 - Medications Medications: Current Medications Albuterol/Ipratropium (Duoneb 3 Mg/0.5 Mg (3 Ml) Ud) 3 ml IH [id number] PRN PRN Reason: Shortness of Breath Last Admin: 08/06/17 13:47 Dose: 3 ml Albuterol/Ipratropium (Duoneb 3 Mg/0.5 Mg (3 Ml) Ud) 3 ml IH Q4H [facility] Last Admin: 08/07/17 11:10 Dose: 3 ml Benzonatate (Tessalon Perles) 100 mg PO TID [facility] Last Admin: 08/07/17 09:55 Dose: 100 mg Budesonide (Pulmicort Respules) 0.5 mg IH [id number] [facility] Last Admin: 08/07/17 08:37 Dose: 0.5 mg Ferrous Sulfate (Feosol) 324 mg PO TID [facility] Last Admin: 08/07/17 09:55 Dose: 324 mg Guaifenesin (Robitussin) 200 mg PO Q4H PRN PRN Reason: Cough and congestion Last Admin: 08/05/17 22:33 Dose: 200 mg Heparin Sodium (Porcine) (Heparin) 5,000 units SC Q12 ESCOBAR PRN Reason: Protocol Last Admin: 08/07/17 12:16 Dose: 5,000 units Propofol (Diprivan) 1,000 mg in 100 mls @ 2.885 mls/hr IV .Q24H PRN; Protocol; 5 MCG/KG/MIN PRN Reason: TITRATE PER MD ORDER Last Admin: 08/07/17 12:07 Dose: 40 mcg/kg/min, 23.079 mls/hr Lactated Ringer's (Lactated Ringer's) 1,000 mls @ 150 mls/hr IV .Q6H40M [facility] Last Admin: 08/07/17 12:08 Dose: 150 mls/hr Insulin Human Lispro (Humalog Med) 0 units SC ACHS [facility] PRN Reason: Protocol Last Admin: 08/07/17 12:13 Dose: Not Given Lisinopril (Zestril) 5 mg PO DAILY [facility] Last Admin: 08/06/17 09:14 Dose: 5 mg Methylprednisolone (Solu-Medrol) 60 mg IVP Q8 [facility] Last Admin: 08/07/17 06:11 Dose: 60 mg Multivitamins/Minerals (Therapeutic-M Tab) 1 tab PO 0800 [facility] Last Admin: 08/07/17 09:55 Dose: 1 tab Nystatin (Nystop Topical Powder) 1 gm TOP DAILY [facility] Last Admin: 08/07/17 12:17 Dose: 1 applic Pantoprazole Sodium (Protonix Inj) 40 mg IVP DAILY [facility] Last Admin: 08/07/17 09:56 Dose: 40 mg Zinc Sulfate (Zinc Sulfate 220 Mg Cap) 220 mg PO DAILY [facility] Last Admin: 08/07/17 09:55 Dose: 220 mg - Labs Labs: 08/07/17 05:30 08/07/17 05:30 PT 13.1 SECONDS (9.4-12.5) H 06/15/17 11:00 INR 1.19 (0.93-1.08) H 06/15/17 11:00 APTT 31.3 Seconds (25.1-36.5) 06/15/17 11:00 <Juan Rodriguez - Last Filed: 08/07/17 15:02> Objective - Vital Signs/Intake and Output Vital Signs (last 24 hours): Temp Pulse Resp BP Pulse Ox 99.8 F H 77 18 102/57 L 90 L 08/07/17 06:00 08/07/17 11:30 08/07/17 08:50 08/07/17 11:30 08/07/17 11:30 Intake and Output: 08/07/17 08/07/17 06:59 18:59 Intake Total 1490 200 Output Total 250 Balance 1240 200 - Medications Medications: Current Medications Albuterol/Ipratropium (Duoneb 3 Mg/0.5 Mg (3 Ml) Ud) 3 ml IH [id number] PRN PRN Reason: Shortness of Breath Last Admin: 08/06/17 13:47 Dose: 3 ml Albuterol/Ipratropium (Duoneb 3 Mg/0.5 Mg (3 Ml) Ud) 3 ml IH Q4H [facility] Last Admin: 08/07/17 11:10 Dose: 3 ml Benzonatate (Tessalon Perles) 100 mg PO TID [facility] Last Admin: 08/07/17 14:01 Dose: 100 mg Budesonide (Pulmicort Respules) 0.5 mg IH [id number] [facility] Last Admin: 08/07/17 08:37 Dose: 0.5 mg Ferrous Sulfate (Feosol) 324 mg PO TID [facility] Last Admin: 08/07/17 14:01 Dose: 324 mg Guaifenesin (Robitussin) 200 mg PO Q4H PRN PRN Reason: Cough and congestion Last Admin: 08/05/17 22:33 Dose: 200 mg Heparin Sodium (Porcine) (Heparin) 5,000 units SC Q12 ESCOBAR PRN Reason: Protocol Last Admin: 08/07/17 12:16 Dose: 5,000 units Propofol (Diprivan) 1,000 mg in 100 mls @ 2.885 mls/hr IV .Q24H PRN; Protocol; 5 MCG/KG/MIN PRN Reason: TITRATE PER MD ORDER Last Admin: 08/07/17 12:07 Dose: 40 mcg/kg/min, 23.079 mls/hr Lactated Ringer's (Lactated Ringer's) 1,000 mls @ 150 mls/hr IV .Q6H40M [facility] Last Admin: 08/07/17 12:08 Dose: 150 mls/hr Insulin Human Lispro (Humalog Med) 0 units SC ACHS [facility] PRN Reason: Protocol Last Admin: 08/07/17 12:13 Dose: Not Given Lisinopril (Zestril) 5 mg PO DAILY [facility] Last Admin: 08/06/17 09:14 Dose: 5 mg Methylprednisolone (Solu-Medrol) 60 mg IVP Q8 [facility] Last Admin: 08/07/17 14:01 Dose: 60 mg Multivitamins/Minerals (Therapeutic-M Tab) 1 tab PO 0800 [facility] Last Admin: 08/07/17 09:55 Dose: 1 tab Nystatin (Nystop Topical Powder) 1 gm TOP DAILY [facility] Last Admin: 08/07/17 12:17 Dose: 1 applic Pantoprazole Sodium (Protonix Inj) 40 mg IVP DAILY [facility] Last Admin: 08/07/17 09:56 Dose: 40 mg Zinc Sulfate (Zinc Sulfate 220 Mg Cap) 220 mg PO DAILY [facility] Last Admin: 08/07/17 09:55 Dose: 220 mg - Labs Labs: 08/07/17 05:30 08/07/17 05:30 PT 13.1 SECONDS (9.4-12.5) H 06/15/17 11:00 INR 1.19 (0.93-1.08) H 06/15/17 11:00 APTT 31.3 Seconds (25.1-36.5) 06/15/17 11:00 Attending/Attestation - Attestation I have personally seen and examined this patient.: Yes I have fully participated in the care of the patient.: Yes I have reviewed all pertinent clinical information, including history, physical exam and plan: Yes Notes (Text): 08/07/17 14:59 67 year old female with past medical history of asthma and arthritis who initially presented with UTI and right LE cellulitis. She was seen by ID and has completed course of iv antibiotics. She was also seen by pulmonary for intermittent asthma and treated with duonebs and steroids. Hospital course was complicated yesterday as patient was lethargic and tachypneic. ABG showed respiratory acidosis with hypercapnea. CXR was negative. She was started on bipap and later intubated and sent to the ICU. Continue with serial ABGs. Continue with vent management and iv steroids as per project superintendent. She is also found to have worsening kidney function. Her lisinopril is on hold and she is on iv fluids. Nephrology evaluation is requested. Juan Rodriguez MD Hospitalist.
[2017-08-07 14:27] LABS: ARTERIAL BLOOD GAS PCO2 49 mm/Hg (35-45); ARTERIAL BLOOD GAS PH 7.28 (7.35-7.45)
[2017-08-07 14:28] LABS: ARTERIAL BLOOD GAS O2 SAT 98.9 % (95-98); ARTERIAL BLOOD GAS TCO2 24.8 mmol.L (22-28)
--- NOTE | 2017-08-07 16:49 | CP.PCM.PN ---
Subjective - Date & Time of Evaluation Date of Evaluation: 08/07/17 Time of Evaluation: 16:00 - Subjective Subjective: Infectious Disease Follow Up: August 07, 2017 67 yo female presenting with 3 weeks of RLE ulceration, swelling and leaking from the wound as well as multiple falls in the past 3 weeks. The patient has an extensive medical history of asthma, arthritis, vitamin C deficiency, and possible thyroid disease. Draining RLE ulceration... cellulitis improved/resolved. Multiple chronic medical issues. Still with persistent dry cough. Otherwise stable. Mild erythema and excoriation of the folds in the abdomen and under the breasts. Fevers up to 100.8 F two nights ago. Patient making few complaints. The patient has remained in bed. Nursing and aides had noted that the patient's friend "Chris" has encouraged the patient to stay in bed in order to get to a m[facility] or subacute facility. "Chris" was the person the patient was living with prior to coming [place] [facility] Also noted that the patient has had a hacking cough the last couple of days. Afebrile for several days now. CT scan of chest done. CT shows mild vascular congestion and no infiltrates. UTI with Klebsiella earlier in hospitalization but had treatment with Cipro that is now completed. Social Issues. Yesterday, the patient had respiratory distress with no improvement from BiPAP. Patient required intubation and ventilation. Transferred to MICU for further care yesterday. The patient was started on Zyvox and Aztreonam IV. Patient had a positive C. Diff antigen but negative toxin. Remains intubated today. Appears stable. Chest X-ray not showing new findings. No leukocytosis. Cultures pending. Objective - Vital Signs/Intake and Output Vital Signs (last 24 hours): Temp Pulse Resp BP Pulse Ox 99.8 F H 101 H 18 145/73 100 08/07/17 06:00 08/07/17 16:01 08/07/17 08:50 08/07/17 15:00 08/07/17 15:30 Intake and Output: 08/07/17 08/07/17 06:59 18:59 Intake Total 1490 200 Output Total 250 Balance 1240 200 - Medications Medications: Current Medications Albuterol/Ipratropium (Duoneb 3 Mg/0.5 Mg (3 Ml) Ud) 3 ml IH [id number] PRN PRN Reason: Shortness of Breath Last Admin: 08/06/17 13:47 Dose: 3 ml Albuterol/Ipratropium (Duoneb 3 Mg/0.5 Mg (3 Ml) Ud) 3 ml IH Q4H [facility] Last Admin: 08/07/17 11:10 Dose: 3 ml Benzonatate (Tessalon Perles) 100 mg PO TID [facility] Last Admin: 08/07/17 14:01 Dose: 100 mg Budesonide (Pulmicort Respules) 0.5 mg IH [id number] [facility] Last Admin: 08/07/17 08:37 Dose: 0.5 mg Ferrous Sulfate (Feosol) 324 mg PO TID [facility] Last Admin: 08/07/17 14:01 Dose: 324 mg Guaifenesin (Robitussin) 200 mg PO Q4H PRN PRN Reason: Cough and congestion Last Admin: 08/05/17 22:33 Dose: 200 mg Heparin Sodium (Porcine) (Heparin) 5,000 units SC Q12 [facility] PRN Reason: Protocol Last Admin: 08/07/17 12:16 Dose: 5,000 units Propofol (Diprivan) 1,000 mg in 100 mls @ 2.885 mls/hr IV .Q24H PRN; Protocol; 5 MCG/KG/MIN PRN Reason: TITRATE PER MD ORDER Last Admin: 08/07/17 12:07 Dose: 40 mcg/kg/min, 23.079 mls/hr Lactated Ringer's (Lactated Ringer's) 1,000 mls @ 150 mls/hr IV .Q6H40M [facility] Last Admin: 08/07/17 12:08 Dose: 150 mls/hr Insulin Human Lispro (Humalog Med) 0 units SC ACHS [facility] PRN Reason: Protocol Last Admin: 08/07/17 12:13 Dose: Not Given Lisinopril (Zestril) 5 mg PO DAILY [facility] Last Admin: 08/06/17 09:14 Dose: 5 mg Methylprednisolone (Solu-Medrol) 60 mg IVP Q8 [facility] Last Admin: 08/07/17 14:01 Dose: 60 mg Multivitamins/Minerals (Therapeutic-M Tab) 1 tab PO 0800 [facility] Last Admin: 08/07/17 09:55 Dose: 1 tab Nystatin (Nystop Topical Powder) 1 gm TOP DAILY [facility] Last Admin: 08/07/17 12:17 Dose: 1 applic Pantoprazole Sodium (Protonix Inj) 40 mg IVP DAILY [facility] Last Admin: 08/07/17 09:56 Dose: 40 mg Zinc Sulfate (Zinc Sulfate 220 Mg Cap) 220 mg PO DAILY [facility] Last Admin: 08/07/17 09:55 Dose: 220 mg - Labs Labs: 08/07/17 05:30 08/07/17 05:30 PT 13.1 SECONDS (9.4-12.5) H 06/15/17 11:00 INR 1.19 (0.93-1.08) H 06/15/17 11:00 APTT 31.3 Seconds (25.1-36.5) 06/15/17 11:00 - Constitutional Appears: Non-toxic, No Acute Distress, Chronically Ill - Head Exam Additional comments: intubated and ventilated. - Eye Exam Eye Exam: EOMI, PERRL Pupil Exam: NORMAL ACCOMODATION, PERRL - ENT Exam ENT Exam: Mucous Membranes Moist, Normal External Ear Exam, TM's Normal Bilaterally - Neck Exam Neck Exam: Full ROM, Normal Inspection - Respiratory Exam Respiratory Exam: Decreased Breath Sounds. absent: Rales, Rhonchi, Wheezes - Cardiovascular Exam Cardiovascular Exam: REGULAR RHYTHM, RRR, +S1, +S2 - GI/Abdominal Exam GI & Abdominal Exam: Soft, Normal Bowel Sounds. absent: Distended, Tenderness - Extremities Exam Extremities Exam: Full ROM, Normal Inspection - Neurological Exam Additional comments: Intubated, ventilated, and sedated. Assessment and Plan - Assessment and Plan (Free Text) Assessment: 67 yo female with multiple medical issues with PCN allergy diagnosed as a teenager verified by an Phlebotomist Associate. The patient with leukocytosis. Await cultures especially urine cultures. Diabetes and HTN history? Local wound care. Elevated ESR and C-reactive protein. Completed Vancomycin and Aztreonam for antibiotic coverage. UTI with E. coli sensitive to Azactam. Was on Vancomycin for cellulitis IV. For UTI for 5-7 days treatment... completed. Supportive care. Cellulitis appears improved. No new issues. Social issues currently. Homeless at this time. CT scan of chest done. No infiltrates seen. Afebrile the past 24 hours. Mild congestion noted in CT with small pulmonary effusions. No leukocytosis. Slightly elevated procalcitonin (0.66) which is undefined without stronger evidence for pneumonia. When encouraged, she is able to use the incentive spirometer without issues and ambulate with minimal difficulty. UTI with Klebsiella. Sensitive to Cipro. Was on Cipro for 5 day course at 500mg PO BID. Completed the antibiotic course. Stable currently. No new issues. Off antibiotics at this time. Multiple social issues. Chronic cough still with periods of hacking. Complained of Vague mild general pains. Awaiting placement. Yesterday the patient developed respiratory failure and required intubation. Started on Zyvox and Aztreonam IV. Will add Flagyl as well. No leukocytosis. Noted C. Diff with positive antigen but negative toxin. Supportive care. Remains intubated and ventilated. Cultures pending. Thank you for allowing me to participate in the care of the patient, we will follow with you.
[2017-08-07] MEDS: metroNIDAZOLE IV 500 mg/100 ml 500 MG/100 ML BAG IVPB SCH ×2 (17:09)
--- NOTE | 2017-08-07 20:05 | PN ---
DATE: PROGRESS NOTE SUBJECTIVE: The patient is seen and examined at bedside. She is comfortable . She is sedated on propofol 40 mcg/kg per minute. She is on PRVC, 360/18/5/50%. PHYSICAL EXAMINATION VITAL SIGNS: Blood pressure 100/61, heart rate 68, respiratory rate 18, end-tidal CO2 on the monitor is 44, .oxygen saturation 99%. ENT: Head and neck atraumatic. LUNGS: No wheezes, no crackles. Clear to auscultation. HEART: Regular rate and rhythm. S1 and S2 normal. ABDOMEN: Soft, nontender, and nondistended. MUSCULOSKELETAL: Some chronic cellulitic changes on the right lower extremity. Trace bilateral pedal and ankle edema. NEUROLOGIC: The patient is sedated. SKIN: Moist. PSYCH: The patient is sedated. LABORATORY DATA: WBC 4.9, hemoglobin 8.8, and platelet count 289. Sodium 139, potassium 3.7, chloride 104, carbon dioxide 23, BUN 28, creatinine 2.6, albumin 1.8, glucose 112, calcium 7.4. ABGs show 7.37/42/209. MEDICATIONS: Duoneb every 4 hours, budesonide inhaled every 12 hours, Feosol, heparin subcu., Robitussin p.r.n., lactated Ringer at 150 mL/hour, lisinopril, Solu-Medrol 60 mg IV q.8, nystatin, Protonix, propofol, zinc. Chest x-ray showed mild interstitial changes. NG tube below the diaphragm. Renal ultrasound showed no hydronephrosis. Unremarkable renal sonogram. ASSESSMENT AND PLAN: This is a 67-year-old lady who presented to intensive care unit with hypercapnic respiratory failure requiring intubation after a failed attempt at noninvasive positive pressure ventilation. Patient is on antibiotics, so we will taper bronchodilators. We will repeat ABG today. The patient also developed the onset of acute kidney injury. Renal ultrasound did not reveal obstructive neuropathy. Lactated Ringer at 150 mL/hour started yesterday to maintain renal perfusion. Renal consult was obtained and agreed with current management. Additional rheumatologic workup was ordered to rule out autoimmune inflammatory process. The patient was also started on antibiotics and septic workup initiated yesterday. We will continue to target euvolemia, euglycemia, normothermia, and oxygen saturation more than 90%. We will continue with protective lung ventilation strategy and maintain I to E ratio more than 1:2 to avoid over ventilation. We will continue with daily sedation vacation and weaning attempts. We will get venous Doppler of lower extremities to rule out DVT/PE. Unfortunately, due to her renal insufficiency, doing CAT scan with PE protocol will put her at additional risk for contrast-induced nephropathy and as the patient is intubated, a VQ scan will also be suboptimal. Addendum: Venous Doppler of LE is neg for DVT ccm time 40 min Bassem Love MD JERRELL
[2017-08-08] MEDS: Albuterol-Ipratrop 3 mg / 0.5 (3 ml) UD IH SCH ×6 (00:15→20:10)
[2017-08-08] MEDS: Linezolid 600 mg in D5W 300 ml 600 MG/300 ML BAG IVPB SCH ×2 (01:00→09:11)
[2017-08-08] MEDS: Propofol 10 mg/ml 1,000 MG/100 ML VIAL IV PRN ×5 (03:45→20:30)
[2017-08-08 05:48] LABS: BASO # 0.01 K/mm3 (0.0-2.0); BASO % 0.1 % (0.0-3.0); GRAN # 6.91 (1.4-6.5); GRAN % 85.1 % (50.0-68.0); HEMOGLOBIN 8.8 g/dL (12.0-16.0); LYMPH # 0.4 (1.2-3.4); LYMPH % 5.4 % (22.0-35.0); MEAN CORPUSCULAR HGB CONC 31.8 g/dl (31.0-37.0); MEAN PLATELET VOLUME 8.4 fl (7.0-11.0); MONO # 0.8 (0.1-0.6); MONO % 9.4 % (1.0-6.0); RBC 3.38 10^6/uL (3.5-6.1); WHITE BLOOD COUNT 8.1 10^3/ul (4.5-11.0)
[2017-08-08 06:19] LABS: CALCIUM 7.4 mg/dL (8.4-10.5); MAGNESIUM 1.7 mg/dL (1.7-2.2); URIC ACID 8.5 mg/dL (2.5-6.2)
[2017-08-08] MEDS: metroNIDAZOLE IV 500 mg/100 ml 500 MG/100 ML BAG IVPB SCH ×3 (06:45→23:08)
[2017-08-08] MEDS: Lactated Ringer's 1,000 ML IV SCH ×3 (06:45→23:00)
[2017-08-08] MEDS: Budesonide 0.5 mg/2 ml Inhal Susp UD IH SCH ×2 (07:18→20:09)
--- NOTE | 2017-08-08 07:28 | RAD ---
HISTORY: increased heart rate COMPARISON: No prior FINDINGS: BONES: Normal. No fracture. JOINTS: Normal. No osteoarthritis. SOFT TISSUE: Normal. OTHER FINDINGS: None . IMPRESSION: Normal Bone Xray.
--- NOTE | 2017-08-08 07:52 | RAD ---
HISTORY: respiratory failure COMPARISON: No prior. FINDINGS: LUNGS: Bilateral interstitial changes. PLEURA: No significant pleural effusion identified, no pneumothorax apparent. CARDIOVASCULAR: Normal. OSSEOUS STRUCTURES: No significant abnormalities. VISUALIZED UPPER ABDOMEN: Normal. OTHER FINDINGS: None. IMPRESSION: Bilateral interstitial changes.
[2017-08-08] MEDS: Insulin Lispro (humaLOG) MEDIUM Coverage SC SCH ×4 (09:05→22:26)
[2017-08-08] MEDS: Aztreonam 1 Gm in NS 100mL 100 ML IVPB SCH ×2 (09:11→22:22)
[2017-08-08] MEDS: Multivitamin With Minerals Tab PO SCH (09:11)
[2017-08-08] MEDS: Nystatin 100,000 Units/gm Topical Pow(15 gm) TOP SCH (09:50)
[2017-08-08] MEDS ORDERED: Potassium Chloride 40 mEq/30 ml LIQ UD PO ONE (09:51)
--- NOTE | 2017-08-08 10:11 | CP.PCM.PN ---
<Darryl Bai - Last Filed: 08/08/17 10:01> Subjective - Date & Time of Evaluation Date of Evaluation: 08/08/17 Time of Evaluation: 07:45 - Subjective Subjective: Subjective: Patient seen and examined at bedside. Resting comfortably in bed. Experienced hypercapnic respiratory failure on 08/06/17 which required intubation. No acute events overnight. Currently is intubated, ventilated, and sedated. 12-point review of systems cannot be ascertained at this time due to altered mental status. Physical Examination: - Constitutional Appears: No Acute Distress - Head Exam Head Exam: ATRAUMATIC, NORMAL INSPECTION, NORMOCEPHALIC - Eye Exam Eye Exam: nonicteric - ENT Exam ENT Exam: orally intubated - Neck Exam Neck Exam: absent: Lymphadenopathy, Tenderness - Respiratory Exam Respiratory Exam: mechanical breath sounds appreciated - Cardiovascular Exam Cardiovascular Exam: REGULAR RHYTHM - GI/Abdominal Exam GI & Abdominal Exam: Distended, Soft, rectal tube in position - Neurological Exam Neurological Exam: patient is intubated and sedated - Skin Skin Exam: Normal Color, Warm Assessment and Plan: Patient is a 67 year old female with past medical history of asthma, arthritis, anemia, and obesity who was admitted for right lower extremity cellulitis and UTI. Patient was found to have cultures positive for Proteus mirabilis and beta hemolytic strep, s/p completed IV course of Vancomycin and Azactam. Patient subsequently found to have Klebsiella UTI s/p adequate treatment with Ciprofloxacin. Patient's course was also complicated by fecal impaction, currently resolved. Pt also found to have intermittent dyspnea, workup revealing a diagnosis of rheumatoid arthritis. Patient is awaiting placement in [facility], pending approval for Medicaid. Patient experienced respiratory failure and was intubated/ transferred to the ICU. Hypercapnic Respiratory Failure - patient is intubated and ventialted- continue current setting - previous CXR reviewed and appreciated- showed no distinctive infiltrate, todays CXR ordered and pending - preivous ABG reviewed and appreciated- pH normalized, todays ABG is ordered and pending - c/w duonebs and solumedrol and pulmicort - c/w zyvox and aztreonam- ID consulted appreciate recommendations HTN - BP reviewed, trended, and appreciated - hold zestril due to CATE Abdominal Distension - likely 2/2 Constipation/fecal impaction - CT Abdomen Pelvis with PO and IV Contrast (07/18): Interstitial and airspace disease in the lung bases; mild cardiomegaly and atherosclerotic disease; fatty liver; gallstones; possible pyelonephritis; mild ileus, no obstruction; constipation with fecal impaction - abdominal flat plate- ordered and pending Normocytic anemia - Hemoglobins reviewed, trended, and appreciated- decrease noted, will transfuse if Hbg < 7.0 - Monitor daily Diarrhea - rectal tube in place - Stool C diff- positive antigen, negative toxin - repeat stool c. diff pending - c/w flagyl- ID consulted appreciate recommendations Non Oliguric CATE - creatinine and bun reviewed, trended, and appreciated- worsening - Nephrology consulted- recommendation appreciated- possible AIN due to meds/ antibiotic - c/w LR @150 - urine electrolytes, UA, urine creatinine ordered and pending - continue to hold BILLY-lisinopril - continue to monitor via daily CMP Prophylaxis: - GI ppx Protonix - DVT ppx: Heparin Patient seen with, case discussed with, and plan approved by attending physician , Dr. Liriano Objective - Vital Signs/Intake and Output Vital Signs (last 24 hours): Temp Pulse Resp BP Pulse Ox 98.6 F 65 24 116/61 100 08/08/17 04:00 08/08/17 07:50 08/08/17 07:25 08/08/17 07:00 08/08/17 07:50 Intake and Output: 08/08/17 08/08/17 06:59 18:59 Intake Total 2104 Output Total 200 Balance 1904 - Medications Medications: Current Medications Albuterol/Ipratropium (Duoneb 3 Mg/0.5 Mg (3 Ml) Ud) 3 ml IH [id number] PRN PRN Reason: Shortness of Breath Last Admin: 08/06/17 13:47 Dose: 3 ml Albuterol/Ipratropium (Duoneb 3 Mg/0.5 Mg (3 Ml) Ud) 3 ml IH Q4H [facility] Last Admin: 08/08/17 07:15 Dose: 3 ml Benzonatate (Tessalon Perles) 100 mg PO TID [facility] Last Admin: 08/08/17 09:10 Dose: 100 mg Budesonide (Pulmicort Respules) 0.5 mg IH [id number] [facility] Last Admin: 08/08/17 07:18 Dose: 0.5 mg Ferrous Sulfate (Feosol) 324 mg PO TID [facility] Last Admin: 08/08/17 09:11 Dose: 324 mg Guaifenesin (Robitussin) 200 mg PO Q4H PRN PRN Reason: Cough and congestion Last Admin: 08/05/17 22:33 Dose: 200 mg Heparin Sodium (Porcine) (Heparin) 5,000 units SC Q12 ESCOBAR PRN Reason: Protocol Last Admin: 08/08/17 09:11 Dose: 5,000 units Propofol (Diprivan) 1,000 mg in 100 mls @ 2.885 mls/hr IV .Q24H PRN; Protocol; 5 MCG/KG/MIN PRN Reason: TITRATE PER MD ORDER Last Admin: 08/08/17 06:47 Dose: 40 mcg/kg/min, 23.079 mls/hr Aztreonam (Azactam 1 Gm) 100 mls @ 100 mls/hr IVPB Q12 [facility]AR PRN Reason: Protocol Last Admin: 08/08/17 09:11 Dose: 100 mls/hr Metronidazole (Flagyl) 500 mg in 100 mls @ 100 mls/hr IVPB Q8 [facility] PRN Reason: Protocol Last Admin: 08/08/17 06:45 Dose: 100 mls/hr Linezolid (Zyvox 600mg/300ml D5w) 600 mg in 300 mls @ 200 mls/hr IVPB Q12 [facility] PRN Reason: Protocol Last Admin: 08/08/17 09:11 Dose: 200 mls/hr Lactated Ringer's (Lactated Ringer's) 1,000 mls @ 75 mls/hr IV .[id number] [facility] Insulin Human Lispro (Humalog Med) 0 units SC ACHS [facility] PRN Reason: Protocol Last Admin: 08/08/17 09:05 Dose: Not Given Lisinopril (Zestril) 5 mg PO DAILY [facility] Last Admin: 08/06/17 09:14 Dose: 5 mg Methylprednisolone (Solu-Medrol) 60 mg IVP Q8 [facility] Last Admin: 08/08/17 06:51 Dose: 60 mg Multivitamins/Minerals (Therapeutic-M Tab) 1 tab PO 0800 [facility] Last Admin: 08/08/17 09:11 Dose: 1 tab Nystatin (Nystop Topical Powder) 1 gm TOP DAILY [facility] Last Admin: 08/07/17 12:17 Dose: 1 applic Pantoprazole Sodium (Protonix Inj) 40 mg IVP DAILY [facility] Last Admin: 08/08/17 09:10 Dose: 40 mg Zinc Sulfate (Zinc Sulfate 220 Mg Cap) 220 mg PO DAILY [facility] Last Admin: 08/08/17 09:10 Dose: 220 mg - Labs Labs: 08/08/17 05:30 08/08/17 05:30 PT 13.1 SECONDS (9.4-12.5) H 06/15/17 11:00 INR 1.19 (0.93-1.08) H 06/15/17 11:00 APTT 31.3 Seconds (25.1-36.5) 06/15/17 11:00 <Max Liriano - Last Filed: 08/08/17 11:31> Objective - Vital Signs/Intake and Output Vital Signs (last 24 hours): Temp Pulse Resp BP Pulse Ox 98.6 F 65 24 116/61 100 08/08/17 04:00 08/08/17 07:50 08/08/17 07:25 08/08/17 07:00 08/08/17 07:50 Intake and Output: 08/08/17 08/08/17 06:59 18:59 Intake Total 2104 Output Total 200 Balance 1904 - Medications Medications: Current Medications Albuterol/Ipratropium (Duoneb 3 Mg/0.5 Mg (3 Ml) Ud) 3 ml IH [id number] PRN PRN Reason: Shortness of Breath Last Admin: 08/06/17 13:47 Dose: 3 ml Albuterol/Ipratropium (Duoneb 3 Mg/0.5 Mg (3 Ml) Ud) 3 ml IH Q4H [facility] Last Admin: 08/08/17 07:15 Dose: 3 ml Benzonatate (Tessalon Perles) 100 mg PO TID [facility] Last Admin: 08/08/17 09:10 Dose: 100 mg Budesonide (Pulmicort Respules) 0.5 mg IH [id number] [facility] Last Admin: 08/08/17 07:18 Dose: 0.5 mg Ferrous Sulfate (Feosol) 324 mg PO TID [facility] Last Admin: 08/08/17 09:11 Dose: 324 mg Guaifenesin (Robitussin) 200 mg PO Q4H PRN PRN Reason: Cough and congestion Last Admin: 08/05/17 22:33 Dose: 200 mg Heparin Sodium (Porcine) (Heparin) 5,000 units SC Q12 ESCOBAR PRN Reason: Protocol Last Admin: 08/08/17 09:11 Dose: 5,000 units Propofol (Diprivan) 1,000 mg in 100 mls @ 2.885 mls/hr IV .Q24H PRN; Protocol; 5 MCG/KG/MIN PRN Reason: TITRATE PER MD ORDER Last Admin: 08/08/17 06:47 Dose: 40 mcg/kg/min, 23.079 mls/hr Aztreonam (Azactam 1 Gm) 100 mls @ 100 mls/hr IVPB Q12 [facility]AR PRN Reason: Protocol Last Admin: 08/08/17 09:11 Dose: 100 mls/hr Metronidazole (Flagyl) 500 mg in 100 mls @ 100 mls/hr IVPB Q8 [facility] PRN Reason: Protocol Last Admin: 08/08/17 06:45 Dose: 100 mls/hr Linezolid (Zyvox 600mg/300ml D5w) 600 mg in 300 mls @ 200 mls/hr IVPB Q12 [facility]OBAR PRN Reason: Protocol Last Admin: 08/08/17 09:11 Dose: 200 mls/hr Lactated Ringer's (Lactated Ringer's) 1,000 mls @ 75 mls/hr IV .[id number] [facility] Potassium Chloride (Potassium Chloride 10 Meq/100 Ml) 10 meq in 100 mls @ 50 mls/hr IVPB Q2H [facility] Stop: 08/08/17 14:59 Insulin Human Lispro (Humalog Med) 0 units SC ACHS [facility] PRN Reason: Protocol Last Admin: 08/08/17 09:05 Dose: Not Given Lisinopril (Zestril) 5 mg PO DAILY [facility] Last Admin: 08/06/17 09:14 Dose: 5 mg Methylprednisolone (Solu-Medrol) 60 mg IVP Q12H [facility] Multivitamins/Minerals (Therapeutic-M Tab) 1 tab PO 0800 [facility] Last Admin: 08/08/17 09:11 Dose: 1 tab Nystatin (Nystop Topical Powder) 1 gm TOP DAILY [facility] Last Admin: 08/07/17 12:17 Dose: 1 applic Pantoprazole Sodium (Protonix Inj) 40 mg IVP DAILY [facility] Last Admin: 08/08/17 09:10 Dose: 40 mg Zinc Sulfate (Zinc Sulfate 220 Mg Cap) 220 mg PO DAILY [facility] Last Admin: 08/08/17 09:10 Dose: 220 mg - Labs Labs: 08/08/17 05:30 08/08/17 05:30 PT 13.1 SECONDS (9.4-12.5) H 06/15/17 11:00 INR 1.19 (0.93-1.08) H 06/15/17 11:00 APTT 31.3 Seconds (25.1-36.5) 06/15/17 11:00 Attending/Attestation - Attestation I have personally seen and examined this patient.: Yes I have fully participated in the care of the patient.: Yes I have reviewed all pertinent clinical information, including history, physical exam and plan: Yes Notes (Text): 08/08/17 11:22 Patient was seen and examined with medical research scientist. 67 year old female with PMH of morbid obesity, COPD and Possible Rheumatoid arthritis who initially presented with UTI and right LE cellulitis. She was seen by ID and has completed course of iv antibiotics.She was also seen by pulmonary for intermittent asthma and treated with duonebs and steroids. Hospital course was complicated with change of mental status due to Hypercapnic Resp Failure 2 days back, patient was intubated and sent to the ICU. She has also developed oligo uric renal failure.Creatinin is getting worse, we will order Urine electrolyte, urine creatinin and urine eosinophil.Nephrology is following.We will monitor intake out put, BUN/Creatinin and electrolyte.Avoid Hypotension and Nephrotoxic medication. Abdominal X ray is negative for any obstruction.Urine cultures are growing K.Pneumonia, on antibiotics as per ID, 0
[2017-08-08 10:57] LABS: COMPLEMENT C4 36.9 mg/dL (14.0-44.0)
--- NOTE | 2017-08-08 11:05 | CP.PCM.PN ---
Subjective - Date & Time of Evaluation Date of Evaluation: 08/08/17 Time of Evaluation: 11:02 - Subjective Subjective: Follow up Nephrology Consultation (covering for Dr Agustín Bai): Assessment: critical oligoanuric Acute Kidney Injury (N17.9) possibly hemodynamic, GI fluid loss leading to ATN. possible AIN due to meds/antibiotics (but usually gradual onset) . will also r/o pulmo-renal syndrome morbid obesity, arthritis, anemia, asthma, RAS and RA factor+ recent cellulitis, UTI, fecal impaction acute hypercapnic respi failure Plan No acute need for renal replacement therapy at this time but may need soon. will need close follow up maintain hemodynamics stable. No ACEI/ARB due to CATE Monitor Input/Output, daily weights and renal function with basic metabolic panel continue with IVF as ordered but lowered to 75 ml/hr supplement electrolytes as needed check urine analysis, urine eos, Anti-GBM anca. has normal complements Dose meds/antibiotics for reduced GFR. Avoid fleets enema/magnesium based laxatives. Avoid nephrotoxins/NSAIDs/ iodinated contrast (unless needed emergently) Glycemic control Further work up/management as per primary team Thanks for allowing me to participate in care of your patient. Will follow patient with you. Please call if any Qs. d/w team Dr Abel Pierson Office: [phone] Chief Complaint; unable to obtain reason for consult: kidney failure source of info: EMR HPI: Pt is a 67 F with hx of morbid obesity, arthritis, anemia, asthma, RAS and RA factor+ who had prolonged hospitalization for cellulitis which was treated with multiple antibiotics and also had UTI treated with antibiotics, constipation with fecal impaction, was awaiting to go to rehab but had hypercapnic respi failure 08/06/17 which required intubation. pt also having diarrhoea now. renal consulted since serum creatinine 1.6 on 08/06 and 2.6 . her serum creatinine was normal prior to that No recent iodinated contrast exposure. intermittent episodes of low BP (90/50) ROS: pt intubated Physical Examination: General Appearance: orally intubated. no distress. obese Vitals reviewed and noted as below Head; Atraumatic, normocephalic ENT: orally intubated EYES: Pupils are equal, round and reactive to light accommodation. Eye muscles and extraocular movement intact. Sclera is anicteric. Neck; supple no lymphadenopathy, no thyromegaly or bruit Lungs: Normal respiratory rate/effort. Breath sounds bilateral rales+ Heart: Normal rate. s1s2 normal. No rub or gallop. Extremities: no edema. No varicose veins Neurological: Patient is sedated Skin: Warm and dry. Normal turgor. No rash. Palpitation: Normal elasticity for age. dressing over legs + Abdomen: Abdomen is soft. Bowel sounds +. There is no abdominal tenderness, no guarding/rigidity no organomegaly. has rectal tube for diarrhoea Psych: unable MSK: no joint tenderness or swelling. Digits and nails normal, no deformity : kidney or bladder not palpable. has khanna + Labs/imaging reviewed. Past medical history, past surgical history, family history, social history, allergy reviewed and noted as below Family hx: no hx of CKD. Rest non-contributory work up: renal sono: neg Urine Na 88 FeNa2.1% Objective - Vital Signs/Intake and Output Vital Signs (last 24 hours): Temp Pulse Resp BP Pulse Ox 98.6 F 65 24 116/61 100 08/08/17 04:00 08/08/17 07:50 08/08/17 07:25 08/08/17 07:00 08/08/17 07:50 Intake and Output: 08/08/17 08/08/17 06:59 18:59 Intake Total 2104 Output Total 200 Balance 1904 - Medications Medications: Current Medications Albuterol/Ipratropium (Duoneb 3 Mg/0.5 Mg (3 Ml) Ud) 3 ml IH [id number] PRN PRN Reason: Shortness of Breath Last Admin: 08/06/17 13:47 Dose: 3 ml Albuterol/Ipratropium (Duoneb 3 Mg/0.5 Mg (3 Ml) Ud) 3 ml IH Q4H [facility] Last Admin: 08/08/17 07:15 Dose: 3 ml Benzonatate (Tessalon Perles) 100 mg PO TID [facility] Last Admin: 08/08/17 09:10 Dose: 100 mg Budesonide (Pulmicort Respules) 0.5 mg IH [id number] [facility] Last Admin: 08/08/17 07:18 Dose: 0.5 mg Ferrous Sulfate (Feosol) 324 mg PO TID [facility] Last Admin: 08/08/17 09:11 Dose: 324 mg Guaifenesin (Robitussin) 200 mg PO Q4H PRN PRN Reason: Cough and congestion Last Admin: 08/05/17 22:33 Dose: 200 mg Heparin Sodium (Porcine) (Heparin) 5,000 units SC Q12 ESCOBAR PRN Reason: Protocol Last Admin: 08/08/17 09:11 Dose: 5,000 units Propofol (Diprivan) 1,000 mg in 100 mls @ 2.885 mls/hr IV .Q24H PRN; Protocol; 5 MCG/KG/MIN PRN Reason: TITRATE PER MD ORDER Last Admin: 08/08/17 06:47 Dose: 40 mcg/kg/min, 23.079 mls/hr Aztreonam (Azactam 1 Gm) 100 mls @ 100 mls/hr IVPB Q12 ESCOBAR PRN Reason: Protocol Last Admin: 08/08/17 09:11 Dose: 100 mls/hr Metronidazole (Flagyl) 500 mg in 100 mls @ 100 mls/hr IVPB Q8 [facility]AR PRN Reason: Protocol Last Admin: 08/08/17 06:45 Dose: 100 mls/hr Linezolid (Zyvox 600mg/300ml D5w) 600 mg in 300 mls @ 200 mls/hr IVPB Q12 [facility]AR PRN Reason: Protocol Last Admin: 08/08/17 09:11 Dose: 200 mls/hr Lactated Ringer's (Lactated Ringer's) 1,000 mls @ 75 mls/hr IV .[id number] [facility] Potassium Chloride (Potassium Chloride 10 Meq/100 Ml) 10 meq in 100 mls @ 50 mls/hr IVPB Q2H [facility] Stop: 08/08/17 14:59 Insulin Human Lispro (Humalog Med) 0 units SC ACHS [facility] PRN Reason: Protocol Last Admin: 08/08/17 09:05 Dose: Not Given Lisinopril (Zestril) 5 mg PO DAILY [facility] Last Admin: 08/06/17 09:14 Dose: 5 mg Methylprednisolone (Solu-Medrol) 60 mg IVP Q12H [facility] Multivitamins/Minerals (Therapeutic-M Tab) 1 tab PO 0800 [facility] Last Admin: 01/07/18 09:11 Dose: 1 tab Nystatin (Nystop Topical Powder) 1 gm TOP DAILY [facility] Last Admin: 08/07/17 12:17 Dose: 1 applic Pantoprazole Sodium (Protonix Inj) 40 mg IVP DAILY [facility] Last Admin: 08/08/17 09:10 Dose: 40 mg Zinc Sulfate (Zinc Sulfate 220 Mg Cap) 220 mg PO DAILY [facility] Last Admin: 08/08/17 09:10 Dose: 220 mg - Labs Labs: 08/08/17 05:30 08/08/17 05:30 PT 13.1 SECONDS (9.4-12.5) H 06/15/17 11:00 INR 1.19 (0.93-1.08) H 06/15/17 11:00 APTT 31.3 Seconds (25.1-36.5) 06/15/17 11:00
--- NOTE | 2017-08-08 11:14 | RAD ---
HISTORY: distended abdomen COMPARISON: No prior. FINDINGS: BOWEL: Normal. No obstruction. No free air. BONES: Normal. OTHER FINDINGS: Nasogastric tube overlies the stomach.. IMPRESSION: Nasogastric tube overlies the stomach..
--- NOTE | 2017-08-08 11:16 | RAD ---
PROCEDURE: CHEST RADIOGRAPH, 1 VIEW HISTORY: intubated COMPARISON: None available. FINDINGS: LUNGS: Mild interstitial changes. ETT above the fred. NG tube below the diaphragm. PLEURA: No pneumothorax or pleural fluid seen. CARDIOVASCULAR: Normal. OSSEOUS STRUCTURES: No significant abnormalities. VISUALIZED UPPER ABDOMEN: Normal. OTHER FINDINGS: None. IMPRESSION: Mild interstitial changes. ETT above the fred. NG tube below the diaphragm.
--- NOTE | 2017-08-08 12:08 | CARD ---
APPROVED REPORT EKG Measurement Heart [id number] <Conclusion> Sinus tachycardia Minimal voltage criteria for LVH, may be normal variant Possible Anterolateral infarct, age undetermined Abnormal ECG
[2017-08-08 14:21] LABS: PH,URINE 5.5 (4.7-8.0); URINE BILIRUBIN NEGATIVE (NEGATIVE); URINE BLOOD MODERATE (NEGATIVE); URINE GLUCOSE (UA) NEGATIVE (NEGATIVE); URINE LEUKOCYTE ESTERASE SMALL Leu/uL (NEGATIVE); URINE NITRATE NEGATIVE (NEGATIVE); URINE PROTEIN NEGATIVE mg/dL (<30 mg/dL); URINE UROBILINOGEN 0.2 E.U./dL (<1 E.U./dL)
[2017-08-08 14:24] LABS: URINE APPEARANCE SL CLOUDY (CLEAR); URINE COLOR YELLOW (YELLOW)
[2017-08-08 14:36] LABS: URINE BACTERIA FEW (NEG); URINE EPITHELIAL CELLS 0 - 2 /hpf (0-5)
[2017-08-08 15:34] LABS: ARTERIAL BLOOD GAS HCO3 19.7 mmol/L (21-28); ARTERIAL BLOOD GAS O2 SAT 100.2 % (95-98); ARTERIAL BLOOD GAS PCO2 40 mm/Hg (35-45); ARTERIAL BLOOD GAS TCO2 20.9 mmol.L (22-28)
--- NOTE | 2017-08-08 15:50 | PN ---
DATE: 08/08/2017 SUBJECTIVE: The patient is seen and examined at bedside. She was off of sedation for a short period of time, became agitated, very tachypneic, very tachycardic, and was put back on PRVC and sedation with propofol. Presently, she is on PRVC, rate 50/24/5/40%. She is on 40 mcg/kg per minute of propofol. ABG is pending. The patient looks much more comfortable. PHYSICAL EXAMINATION: VITAL SIGNS: Heart rate 84, oxygen saturation 100%, end-tidal CO2 on the monitor is 42, blood pressure 108/63. ENT: Head and neck atraumatic. LUNGS: Clear to auscultation bilaterally. HEART: Regular rate and rhythm. S1 and S2 normal. ABDOMEN: Soft, mildly distended, but a little bit softer than two days ago. The patient did have light bowel movements yesterday. MUSCULOSKELETAL: Chronic cellulitic changes on the right lower extremity. Trace bilateral pedal and ankle edema. NEUROLOGIC: The patient moves all extremities spontaneously. SKIN: Color is moist. PSYCH: The patient is sedated. LABORATORY DATA: WBC 8.1, hemoglobin 8.8, platelet count 255. Sodium 137, potassium 3 (supplemented), chloride 103, carbon dioxide 21, BUN 34, creatinine 3.2, up from 2.8, glucose 149. MEDICATIONS: DuoNeb every 4 hours, aztreonam, Tessalon Perles, budesonide, ferrous sulfate, Flagyl, heparin, Lactated Ringer 75 mL per hour, Solu-Medrol 60 mg IV q.8 (tapered down to q.12), vitamin, nystatin, Protonix, zinc, Zyvox. IMAGING: Chest x-ray no acute pulmonary disease. ASSESSMENT AND PLAN: This is a 67-year-old lady who presented with hypercapnic respiratory failure after failing bilevel positive airway pressure. She was intubated. At the present time, ph is 7.3, pc02 40 She failed her sedation vacation and weaning attempt. She is on steroid taper, bronchodilators, and antibiotics. We will try to maintain protective lung ventilation strategy and avoid hyperventilation with I:E ratio>2. We will decrease the IV fluids; however, we will continue hydration to maintain renal perfusion. The patient continues to be oliguric and creatinine is rising. We are keeping close contact with Nephrology service. At the present time, acute tubular necrosis of unclear etiology considered as the primary suspect as far as diagnosis. Autoimmune workup is pending to rule out autoimmune inflammatory mechanism of kidney injury. Urine output is being monitored. The patient had a bowel movement yesterday. Abdomen is soft. The patient does have chronic abdominal distention. She is afebrile and does not have leukocytosis. We will continue with deep vein thrombosis and gastrointestinal prophylaxis. We will continue to maintain euvolemia, euglycemia, normothermia, and oxygen saturation more than 90%. We will continue with intensive care unit monitoring. ccm time 40 min Bassem Love MD MTDD
[2017-08-08] MEDS: Fentanyl 1000mcg/100ml NS 1,000 MCG/100 ML BAG IV PRN (16:16)
--- NOTE | 2017-08-08 17:14 | CP.PCM.PN ---
Subjective - Date & Time of Evaluation Date of Evaluation: 08/08/17 Time of Evaluation: 14:00 - Subjective Subjective: Infectious Disease Follow Up: August 08, 2017 67 yo female presenting with 3 weeks of RLE ulceration, swelling and leaking from the wound as well as multiple falls in the past 3 weeks. The patient has an extensive medical history of asthma, arthritis, vitamin C deficiency, and possible thyroid disease. Draining RLE ulceration... cellulitis improved/resolved. Multiple chronic medical issues. Still with persistent dry cough. Otherwise stable. Mild erythema and excoriation of the folds in the abdomen and under the breasts. Fevers up to 100.8 F two nights ago. Patient making few complaints. The patient has remained in bed. Nursing and aides had noted that the patient's friend "Chris" has encouraged the patient to stay in bed in order to get to a halfway or subacute facility. "Chris" was the person the patient was living with prior to coming to [facility]. Also noted that the patient has had a hacking cough the last couple of days. Afebrile for several days now. CT scan of chest done. CT shows mild vascular congestion and no infiltrates. UTI with Klebsiella earlier in hospitalization but had treatment with Cipro that is now completed. Social Issues. Yesterday, the patient had respiratory distress with no improvement from BiPAP. Patient required intubation and ventilation. Transferred to MICU for further care yesterday. The patient was started on Zyvox and Aztreonam IV. Patient had a positive C. Diff antigen but negative toxin. Remains intubated today. Appears stable. Chest X-ray not showing new findings. No leukocytosis. Cultures pending. Patient unable to be weaned from ventilator. Supportive care. No fevers or leukocytosis. Procalcitonin equivocal. Awaiting cultures. Objective - Vital Signs/Intake and Output Vital Signs (last 24 hours): Temp Pulse Resp BP Pulse Ox 98.6 F 76 24 116/58 L 100 08/08/17 04:00 08/08/17 13:20 08/08/17 07:25 08/08/17 13:00 08/08/17 13:20 Intake and Output: 08/08/17 08/08/17 06:59 18:59 Intake Total 2104 100 Output Total 200 Balance 1904 100 - Medications Medications: Current Medications Albuterol/Ipratropium (Duoneb 3 Mg/0.5 Mg (3 Ml) Ud) 3 ml IH [id number] PRN PRN Reason: Shortness of Breath Last Admin: 08/06/17 13:47 Dose: 3 ml Albuterol/Ipratropium (Duoneb 3 Mg/0.5 Mg (3 Ml) Ud) 3 ml IH Q4H [facility] Last Admin: 08/08/17 15:50 Dose: 3 ml Benzonatate (Tessalon Perles) 100 mg PO TID [facility] Last Admin: 08/08/17 15:00 Dose: 100 mg Budesonide (Pulmicort Respules) 0.5 mg IH [id number] [facility] Last Admin: 08/08/17 07:18 Dose: 0.5 mg Ferrous Sulfate (Feosol) 324 mg PO TID [facility] Last Admin: 08/08/17 15:00 Dose: 324 mg Guaifenesin (Robitussin) 200 mg PO Q4H PRN PRN Reason: Cough and congestion Last Admin: 08/05/17 22:33 Dose: 200 mg Propofol (Diprivan) 1,000 mg in 100 mls @ 2.885 mls/hr IV .Q24H PRN; Protocol; 5 MCG/KG/MIN PRN Reason: TITRATE PER MD ORDER Last Admin: 08/08/17 11:55 Dose: 50 mcg/kg/min, 28.849 mls/hr Aztreonam (Azactam 1 Gm) 100 mls @ 100 mls/hr IVPB Q12 [facility] PRN Reason: Protocol Last Admin: 08/08/17 09:11 Dose: 100 mls/hr Metronidazole (Flagyl) 500 mg in 100 mls @ 100 mls/hr IVPB Q8 [facility] PRN Reason: Protocol Last Admin: 08/08/17 15:01 Dose: 100 mls/hr Linezolid (Zyvox 600mg/300ml D5w) 600 mg in 300 mls @ 200 mls/hr IVPB Q12 [facility] PRN Reason: Protocol Last Admin: 08/08/17 09:11 Dose: 200 mls/hr Lactated Ringer's (Lactated Ringer's) 1,000 mls @ 75 mls/hr IV .[id number] [facility] Last Admin: 08/08/17 09:45 Dose: 75 mls/hr Fentanyl Citrate (Fentanyl Citrate/Sodium Chloride 1 Mg/100 Ml) 1,000 mcg in 100 mls @ 5 mls/hr IV .Q20H PRN; Protocol; 50 MCG/HR PRN Reason: TITRATE PER MD ORDER Last Admin: 08/08/17 16:16 Dose: 20 mcg/hr, 2 mls/hr Potassium Chloride (Potassium Chloride 10 Meq/100 Ml) 10 meq in 100 mls @ 50 mls/hr IVPB Q2H [facility] Stop: 08/08/17 19:44 Insulin Human Lispro (Humalog Med) 0 units SC ACHS [facility] PRN Reason: Protocol Last Admin: 08/08/17 14:51 Dose: Not Given Lisinopril (Zestril) 5 mg PO DAILY [facility] Last Admin: 08/06/17 09:14 Dose: 5 mg Methylprednisolone (Solu-Medrol) 60 mg IVP Q12H [facility] Last Admin: 08/08/17 15:00 Dose: 60 mg Multivitamins/Minerals (Therapeutic-M Tab) 1 tab PO 0800 [facility] Last Admin: 08/08/17 09:11 Dose: 1 tab Nystatin (Nystop Topical Powder) 1 gm TOP DAILY [facility] Last Admin: 08/08/17 09:50 Dose: 1 applic Pantoprazole Sodium (Protonix Inj) 40 mg IVP DAILY [facility] Last Admin: 08/08/17 09:10 Dose: 40 mg Zinc Sulfate (Zinc Sulfate 220 Mg Cap) 220 mg PO DAILY [facility] Last Admin: 08/08/17 09:10 Dose: 220 mg - Labs Labs: 08/08/17 05:30 08/08/17 05:30 PT 13.1 SECONDS (9.4-12.5) H 06/15/17 11:00 INR 1.19 (0.93-1.08) H 06/15/17 11:00 APTT 31.3 Seconds (25.1-36.5) 06/15/17 11:00 - Constitutional Appears: Chronically Ill - Head Exam Head Exam: NORMOCEPHALIC Additional comments: intubated and ventilated. - Eye Exam Eye Exam: EOMI, PERRL Pupil Exam: NORMAL ACCOMODATION, PERRL - ENT Exam ENT Exam: Mucous Membranes Moist, Normal External Ear Exam, TM's Normal Bilaterally - Neck Exam Neck Exam: Full ROM Additional comments: intubated and ventilated. - Respiratory Exam Respiratory Exam: Clear to Ausculation Bilateral, Rales, NORMAL BREATHING PATTERN. absent: Rhonchi, Wheezes - Cardiovascular Exam Cardiovascular Exam: REGULAR RHYTHM, RRR, +S1, +S2 - GI/Abdominal Exam GI & Abdominal Exam: Soft, Normal Bowel Sounds. absent: Distended, Tenderness - Extremities Exam Extremities Exam: Full ROM, Normal Inspection - Neurological Exam Additional comments: intubated and sedated. - Psychiatric Exam Additional comments: sedated. - Skin Skin Exam: Intact, Normal Color Assessment and Plan - Assessment and Plan (Free Text) Assessment: 67 yo female with multiple medical issues with PCN allergy diagnosed as a teenager verified by an Hoisting Engineer. The patient with leukocytosis. Await cultures especially urine cultures. Diabetes and HTN history? Local wound care. Elevated ESR and C-reactive protein. Completed Vancomycin and Aztreonam for antibiotic coverage. UTI with E. coli sensitive to Azactam. Was on Vancomycin for cellulitis IV. For UTI for 5-7 days treatment... completed. Supportive care. Cellulitis appears improved. No new issues. Social issues currently. Homeless at this time. CT scan of chest done. No infiltrates seen. Afebrile the past 24 hours. Mild congestion noted in CT with small pulmonary effusions. No leukocytosis. Slightly elevated procalcitonin (0.66) which is undefined without stronger evidence for pneumonia. When encouraged, she is able to use the incentive spirometer without issues and ambulate with minimal difficulty. Repeat procalcitonin showing 0.71. UTI with Klebsiella. Sensitive to Cipro. Was on Cipro for 5 day course at 500mg PO BID. Completed the antibiotic course. Stable currently. No new issues. Off antibiotics at this time. Multiple social issues. Chronic cough still with periods of hacking. Complained of Vague mild general pains. Awaiting placement. Yesterday the patient developed respiratory failure and required intubation. Started on Zyvox and Aztreonam IV. Will add Flagyl as well. No leukocytosis. Noted C. Diff with positive antigen but negative toxin. Supportive care. Remains intubated and ventilated. Cultures pending. C. Diff negative to date. No leukocytosis or fever. Thank you for allowing me to participate in the care of the patient, we will follow with you.
[2017-08-09] MEDS: Propofol 10 mg/ml 1,000 MG/100 ML VIAL IV PRN ×5 (00:10→22:57)
[2017-08-09] MEDS: Linezolid 600 mg in D5W 300 ml 600 MG/300 ML BAG IVPB SCH ×3 (00:10→23:55)
[2017-08-09 00:25] LABS: CALCIUM 7.2 mg/dL (8.4-10.5); MAGNESIUM 1.7 mg/dL (1.7-2.2)
[2017-08-09] MEDS: Albuterol-Ipratrop 3 mg / 0.5 (3 ml) UD IH SCH ×7 (03:04→23:30)
[2017-08-09 08:13] LABS: CALCIUM 6.9 mg/dL (8.4-10.5); MAGNESIUM 1.6 mg/dL (1.7-2.2)
[2017-08-09] MEDS: metroNIDAZOLE IV 500 mg/100 ml 500 MG/100 ML BAG IVPB SCH ×3 (08:59→23:00)
[2017-08-09] MEDS: Multivitamin With Minerals Tab PO SCH (09:00)
[2017-08-09] MEDS: Nystatin 100,000 Units/gm Topical Pow(15 gm) TOP SCH (09:01)
[2017-08-09] MEDS: Insulin Lispro (humaLOG) MEDIUM Coverage SC SCH ×4 (09:04→23:05)
--- NOTE | 2017-08-09 09:19 | US ---
HISTORY: Leg pain and swelling. Evaluate for DVT PHYSICIAN(S): Nikhil Sanchez MD. TECHNIQUE: Duplex sonography and color-flow Doppler with graded compression were used to evaluate the deep venous systems of both lower extremities. The exam is limited by body habitus and edema. The lower femoral veins and tibial veins are not well seen FINDINGS: The visualized deep venous systems of both lower extremities are sonographically normal and compressible. Normal wave forms and augmentation are seen. There is no sonographic evidence for deep venous thrombosis in the visualized segments of both lower extremities. IMPRESSION: No sonographic evidence for deep venous thrombosis in the visualized segments of both lower extremities. Limited study.
--- NOTE | 2017-08-09 10:09 | RAD ---
HISTORY: ABD distention COMPARISON: No prior. FINDINGS: BOWEL: Normal. No obstruction. No free air. BONES: Normal. OTHER FINDINGS: Nasogastric tube coiled in the stomach which is decompressed. IMPRESSION: No significant or acute findings to account for/ related to the clinical presentation.
--- NOTE | 2017-08-09 10:46 | CP.PCM.PN ---
<Shan Zepeda - Last Filed: 08/09/17 17:25> Subjective - Date & Time of Evaluation Date of Evaluation: 08/09/17 Time of Evaluation: 06:00 - Subjective Subjective: Patient was seen and evaluated bedside in the ICU. Patient sedated on medication and intubated. Unable to obtain a ROS currently. Objective - Vital Signs/Intake and Output Vital Signs (last 24 hours): Temp Pulse Resp BP Pulse Ox 98.2 F 68 24 143/71 99 08/08/17 20:00 08/09/17 10:00 08/08/17 07:25 08/09/17 08:00 08/09/17 08:20 Intake and Output: 08/09/17 08/09/17 06:59 18:59 Intake Total 3255 Output Total 1100 Balance 2155 - Medications Medications: Current Medications Albuterol/Ipratropium (Duoneb 3 Mg/0.5 Mg (3 Ml) Ud) 3 ml IH [id number] PRN PRN Reason: Shortness of Breath Last Admin: 08/06/17 13:47 Dose: 3 ml Albuterol/Ipratropium (Duoneb 3 Mg/0.5 Mg (3 Ml) Ud) 3 ml IH Q4H [facility] Last Admin: 08/09/17 07:31 Dose: 3 ml Benzonatate (Tessalon Perles) 100 mg PO TID [facility] Last Admin: 08/09/17 09:00 Dose: 100 mg Calcium Acetate (Phoslo) 667 mg PO TID [facility] Ferrous Sulfate (Feosol) 324 mg PO TID [facility] Last Admin: 08/09/17 09:00 Dose: 324 mg Guaifenesin (Robitussin) 200 mg PO Q4H PRN PRN Reason: Cough and congestion Last Admin: 08/05/17 22:33 Dose: 200 mg Propofol (Diprivan) 1,000 mg in 100 mls @ 2.885 mls/hr IV .Q24H PRN; Protocol; 5 MCG/KG/MIN PRN Reason: TITRATE PER MD ORDER Last Admin: 08/09/17 04:37 Dose: 40 mcg/kg/min, 23.079 mls/hr Aztreonam (Azactam 1 Gm) 100 mls @ 100 mls/hr IVPB Q12 [facility] PRN Reason: Protocol Last Admin: 08/08/17 22:22 Dose: 100 mls/hr Metronidazole (Flagyl) 500 mg in 100 mls @ 100 mls/hr IVPB Q8 [facility] PRN Reason: Protocol Last Admin: 08/09/17 08:59 Dose: 100 mls/hr Linezolid (Zyvox 600mg/300ml D5w) 600 mg in 300 mls @ 200 mls/hr IVPB Q12 [facility] PRN Reason: Protocol Last Admin: 08/09/17 09:48 Dose: 200 mls/hr Lactated Ringer's (Lactated Ringer's) 1,000 mls @ 75 mls/hr IV .[id number] [facility] Last Admin: 08/08/17 23:00 Dose: 75 mls/hr Fentanyl Citrate (Fentanyl Citrate/Sodium Chloride 1 Mg/100 Ml) 1,000 mcg in 100 mls @ 5 mls/hr IV .Q20H PRN; Protocol; 50 MCG/HR PRN Reason: TITRATE PER MD ORDER Last Admin: 08/08/17 16:16 Dose: 20 mcg/hr, 2 mls/hr Calcium Gluconate 1,000 mg/ (Dextrose) 110 mls @ 110 mls/hr IVPB ONCE ONE Stop: 08/09/17 11:07 Insulin Human Lispro (Humalog Med) 0 units SC ACHS [facility] PRN Reason: Protocol Last Admin: 08/09/17 09:04 Dose: Not Given Lisinopril (Zestril) 5 mg PO DAILY [facility] Last Admin: 08/06/17 09:14 Dose: 5 mg Methylprednisolone (Solu-Medrol) 60 mg IVP Q12H [facility] Last Admin: 08/08/17 22:32 Dose: 60 mg Multivitamins/Minerals (Therapeutic-M Tab) 1 tab PO 0800 [facility] Last Admin: 08/09/17 09:00 Dose: 1 tab Nystatin (Nystop Topical Powder) 1 gm TOP DAILY [facility] Last Admin: 08/09/17 09:01 Dose: 1 applic Pantoprazole Sodium (Protonix Inj) 40 mg IVP DAILY [facility] Last Admin: 08/09/17 09:00 Dose: 40 mg Sodium Bicarbonate (Sodium Bicarbonate Tab) 1,300 mg PO BID [facility] Zinc Sulfate (Zinc Sulfate 220 Mg Cap) 220 mg PO DAILY [facility] Last Admin: 08/09/17 09:00 Dose: 220 mg - Labs Labs: 08/08/17 05:30 08/09/17 06:00 PT 13.1 SECONDS (9.4-12.5) H 06/15/17 11:00 INR 1.19 (0.93-1.08) H 06/15/17 11:00 APTT 31.3 Seconds (25.1-36.5) 06/15/17 11:00 - Constitutional Appears: No Acute Distress - Head Exam Head Exam: ATRAUMATIC, NORMAL INSPECTION, NORMOCEPHALIC - ENT Exam ENT Exam: Mucous Membranes Moist - Neck Exam Neck Exam: absent: Lymphadenopathy - Respiratory Exam Respiratory Exam: Clear to Ausculation Bilateral, NORMAL BREATHING PATTERN - Cardiovascular Exam Cardiovascular Exam: REGULAR RHYTHM, +S1, +S2 - GI/Abdominal Exam GI & Abdominal Exam: Distended, Soft - Extremities Exam Extremities Exam: Normal Capillary Refill - Neurological Exam Additional comments: Sedated - Skin Skin Exam: Normal Color Assessment and Plan - Assessment and Plan (Free Text) Assessment: Patient is a 67 year old female with past medical history of asthma, arthritis, anemia, and obesity who was admitted for right lower extremity cellulitis and UTI. Patient was found to have cultures positive for Proteus mirabilis and beta hemolytic strep, s/p completed IV course of Vancomycin and Azactam. Patient subsequently found to have Klebsiella UTI s/p adequate treatment with Ciprofloxacin. Patient's course was also complicated by fecal impaction, currently resolved. Pt also found to have intermittent dyspnea, workup revealing a diagnosis of rheumatoid arthritis. Patient is awaiting placement in [facility], pending approval for Medicaid. Patient experienced respiratory failure and was intubated/ transferred to the ICU. Plan: Hypercapnic Respiratory Failure -Improving, pC02: 40 p)2: 121 ph: 7.30 - patient is intubated and ventilated- PEEP: 5, R: 28, Tidal: 350 - previous CXR reviewed and appreciated- showed no distinctive infiltrate - ABG reviewed and appreciated- pH normalizing, continue to monitor respiratory status - c/w duonebs and solumedrol and pulmicort - c/w zyvox and aztreonam- ID consulted appreciate recommendations -Possible extubation tomorrow HTN - BP reviewed, trended, and appreciated - hold zestril due to CATE Abdominal Distension - likely 2/2 Constipation/fecal impaction - CT Abdomen Pelvis with PO and IV Contrast (07/18): Interstitial and airspace disease in the lung bases; mild cardiomegaly and atherosclerotic disease; fatty liver; gallstones; possible pyelonephritis; mild ileus, no obstruction; constipation with fecal impaction - abdominal flat plate-No acute changes or findings Normocytic anemia - Hemoglobins reviewed, trended, and appreciated- decrease noted, will transfuse if Hbg < 7.0 - Monitor daily Diarrhea - rectal tube removed - Stool C diff- positive antigen, negative toxin - c/w flagyl- ID consulted appreciate recommendations Oliguric CATE - creatinine and bun reviewed, trended, and appreciated BUN: 35 Cr:3.10 - Nephrology consulted- recommendation appreciated- No acute need for renal replacement therapy at this time but may need soon. will need close follow up. - -serum cr platueing -maintain hemodynamics stable. -Monitor Input/Output, daily weights and renal function with basic metabolic panel -continue with IVF as ordered -supplement electrolytes as needed -started phos binders and bicarb -check Anti-GBM, anca. has normal complements - c/w LR @150 - urine electrolytes and urine creatinine within normal limits - continue to hold BILLY-lisinopril and no arb - continue to monitor via daily CMP -Urine output 400 -Calcium 6.9, repleted, monitor -Mag 1.3, monitor, replete if necessary Prophylaxis: - GI ppx Protonix - DVT ppx: Heparin <Max Liriano - Last Filed: 08/10/17 13:26> Objective - Vital Signs/Intake and Output Vital Signs (last 24 hours): Temp Pulse Resp BP Pulse Ox 93.4 F L 85 28 H 140/71 98 08/10/17 06:40 08/10/17 10:00 08/10/17 08:20 08/10/17 06:00 08/10/17 08:20 Intake and Output: 08/10/17 08/10/17 06:59 18:59 Intake Total 2024 110 Output Total 800 Balance 1225 110 - Medications Medications: Current Medications Albuterol/Ipratropium (Duoneb 3 Mg/0.5 Mg (3 Ml) Ud) 3 ml IH [id number] PRN PRN Reason: Shortness of Breath Last Admin: 08/06/17 13:47 Dose: 3 ml Albuterol/Ipratropium (Duoneb 3 Mg/0.5 Mg (3 Ml) Ud) 3 ml IH Q4H [facility] Last Admin: 08/10/17 12:09 Dose: 3 ml Benzonatate (Tessalon Perles) 100 mg PO TID [facility] Last Admin: 08/10/17 09:02 Dose: 100 mg Calcium Acetate (Phoslo) 667 mg PO TID [facility] Last Admin: 08/10/17 09:01 Dose: 667 mg Ferrous Sulfate (Feosol) 324 mg PO TID [facility] Last Admin: 08/10/17 09:01 Dose: 324 mg Guaifenesin (Robitussin) 200 mg PO Q4H PRN PRN Reason: Cough and congestion Last Admin: 08/05/17 22:33 Dose: 200 mg Propofol (Diprivan) 1,000 mg in 100 mls @ 2.885 mls/hr IV .Q24H PRN; Protocol; 5 MCG/KG/MIN PRN Reason: TITRATE PER MD ORDER Last Titration: 08/10/17 08:56 Dose: 30 mcg/kg/min, 17.309 mls/hr Aztreonam (Azactam 1 Gm) 100 mls @ 100 mls/hr IVPB Q12 [facility] PRN Reason: Protocol Last Admin: 08/10/17 09:02 Dose: 100 mls/hr Metronidazole (Flagyl) 500 mg in 100 mls @ 100 mls/hr IVPB Q8 [facility] PRN Reason: Protocol Last Admin: 08/10/17 05:19 Dose: 100 mls/hr Linezolid (Zyvox 600mg/300ml D5w) 600 mg in 300 mls @ 200 mls/hr IVPB Q12 [facility] PRN Reason: Protocol Last Admin: 08/10/17 09:07 Dose: 200 mls/hr Lactated Ringer's (Lactated Ringer's) 1,000 mls @ 75 mls/hr IV .[id number] [facility] Last Admin: 08/10/17 04:00 Dose: 75 mls/hr Fentanyl Citrate (Fentanyl Citrate/Sodium Chloride 1 Mg/100 Ml) 1,000 mcg in 100 mls @ 5 mls/hr IV .Q20H PRN; Protocol; 50 MCG/HR PRN Reason: TITRATE PER MD ORDER Last Titration: 08/10/17 10:22 Dose: 10 mcg/hr, 1 mls/hr Insulin Human Lispro (Humalog Med) 0 units SC ACHS [facility] PRN Reason: Protocol Last Admin: 08/10/17 12:14 Dose: Not Given Lisinopril (Zestril) 5 mg PO DAILY [facility] Last Admin: 08/06/17 09:14 Dose: 5 mg Methylprednisolone (Solu-Medrol) 60 mg IVP Q12H [facility] Last Admin: 08/10/17 11:25 Dose: 60 mg Multivitamins/Minerals (Therapeutic-M Tab) 1 tab PO 0800 [facility] Last Admin: 08/10/17 08:58 Dose: 1 tab Nystatin (Nystop Topical Powder) 1 gm TOP DAILY [facility] Last Admin: 08/10/17 09:02 Dose: 1 applic Pantoprazole Sodium (Protonix Inj) 40 mg IVP DAILY [facility] Last Admin: 08/10/17 09:02 Dose: 40 mg Potassium Chloride (Potassium Chloride Oral Soln) 20 meq NG BID [facility] Stop: 08/10/17 18:01 Sodium Bicarbonate (Sodium Bicarbonate Tab) 1,300 mg PO BID [facility] Last Admin: 08/10/17 09:01 Dose: 1,300 mg Zinc Sulfate (Zinc Sulfate 220 Mg Cap) 220 mg PO DAILY [facility] Last Admin: 08/10/17 09:03 Dose: 220 mg - Labs Labs: 08/10/17 06:30 08/10/17 06:30 PT 13.1 SECONDS (9.4-12.5) H 06/15/17 11:00 INR 1.19 (0.93-1.08) H 06/15/17 11:00 APTT 31.3 Seconds (25.1-36.5) 06/15/17 11:00 Attending/Attestation - Attestation I have personally seen and examined this patient.: Yes I have fully participated in the care of the patient.: Yes I have reviewed all pertinent clinical information, including history, physical exam and plan: Yes Notes (Text): 08/10/17 13:24 Patient was seen and examined with neuropsychology medical consultant. 67 year old female with PMH of morbid obesity, COPD and Possible Rheumatoid arthritis who initially presented with UTI and right LE cellulitis. She was seen by ID and has completed course of iv antibiotics.She was also seen by pulmonary for intermittent asthma and treated with duonebs and steroids. Hospital course has been complicated with change of mental status due to Hypercapnic Resp Failure 3 days back, patient was intubated and was sent to the ICU.Her hypercapnia is improving.She is on antibitics as per ID for Pneumonia.Cultures are negative for any growth. She also developed oligo uric renal failure.Patient had good urine out put yesterday.Creatinin is stable.We will continue monitoring Prognosis is guarded.
[2017-08-09] MEDS: Aztreonam 1 Gm in NS 100mL 100 ML IVPB SCH ×2 (11:57→21:45)
[2017-08-09] MEDS ORDERED: Magnesium Sulfate 1 gm in D5W 1 GM/100 ML BAG IVPB ONE (12:33)
--- NOTE | 2017-08-09 12:42 | CP.PCM.PN ---
Subjective - Date & Time of Evaluation Date of Evaluation: 08/09/17 Time of Evaluation: 07:10 - Subjective Subjective: Pt seen and examined, remains intubated, sedated. Objective - Vital Signs/Intake and Output Vital Signs (last 24 hours): Temp Pulse Resp BP Pulse Ox 98.2 F 68 24 143/71 99 08/08/17 20:00 08/09/17 10:00 08/08/17 07:25 08/09/17 08:00 08/09/17 08:20 Intake and Output: 08/09/17 08/09/17 06:59 18:59 Intake Total 3255 100 Output Total 1100 Balance 2155 100 - Medications Medications: Current Medications Albuterol/Ipratropium (Duoneb 3 Mg/0.5 Mg (3 Ml) Ud) 3 ml IH [id number] PRN PRN Reason: Shortness of Breath Last Admin: 08/06/17 13:47 Dose: 3 ml Albuterol/Ipratropium (Duoneb 3 Mg/0.5 Mg (3 Ml) Ud) 3 ml IH Q4H [facility] Last Admin: 08/09/17 07:31 Dose: 3 ml Benzonatate (Tessalon Perles) 100 mg PO TID [facility] Last Admin: 08/09/17 09:00 Dose: 100 mg Calcium Acetate (Phoslo) 667 mg PO TID [facility] Ferrous Sulfate (Feosol) 324 mg PO TID [facility] Last Admin: 08/09/17 09:00 Dose: 324 mg Guaifenesin (Robitussin) 200 mg PO Q4H PRN PRN Reason: Cough and congestion Last Admin: 08/05/17 22:33 Dose: 200 mg Propofol (Diprivan) 1,000 mg in 100 mls @ 2.885 mls/hr IV .Q24H PRN; Protocol; 5 MCG/KG/MIN PRN Reason: TITRATE PER MD ORDER Last Admin: 08/09/17 11:57 Dose: 40 mcg/kg/min, 23.079 mls/hr Aztreonam (Azactam 1 Gm) 100 mls @ 100 mls/hr IVPB Q12 [facility] PRN Reason: Protocol Last Admin: 08/09/17 11:57 Dose: 100 mls/hr Metronidazole (Flagyl) 500 mg in 100 mls @ 100 mls/hr IVPB Q8 [facility] PRN Reason: Protocol Last Admin: 08/09/17 08:59 Dose: 100 mls/hr Linezolid (Zyvox 600mg/300ml D5w) 600 mg in 300 mls @ 200 mls/hr IVPB Q12 [facility] PRN Reason: Protocol Last Admin: 08/09/17 09:48 Dose: 200 mls/hr Lactated Ringer's (Lactated Ringer's) 1,000 mls @ 75 mls/hr IV .[id number] [facility] Last Admin: 08/08/17 23:00 Dose: 75 mls/hr Fentanyl Citrate (Fentanyl Citrate/Sodium Chloride 1 Mg/100 Ml) 1,000 mcg in 100 mls @ 5 mls/hr IV .Q20H PRN; Protocol; 50 MCG/HR PRN Reason: TITRATE PER MD ORDER Last Admin: 08/08/17 16:16 Dose: 20 mcg/hr, 2 mls/hr Magnesium Sulfate/Dextrose (Magnesium Sulfate 1 Gm/100 Ml D5w) 1 gm in 100 mls @ 100 mls/hr IVPB ONCE ONE Stop: 08/09/17 13:32 Insulin Human Lispro (Humalog Med) 0 units SC ACHS [facility] PRN Reason: Protocol Last Admin: 08/09/17 11:43 Dose: Not Given Lisinopril (Zestril) 5 mg PO DAILY [facility] Last Admin: 08/06/17 09:14 Dose: 5 mg Methylprednisolone (Solu-Medrol) 60 mg IVP Q12H [facility] Last Admin: 08/08/17 22:32 Dose: 60 mg Multivitamins/Minerals (Therapeutic-M Tab) 1 tab PO 0800 [facility] Last Admin: 08/09/17 09:00 Dose: 1 tab Nystatin (Nystop Topical Powder) 1 gm TOP DAILY [facility] Last Admin: 08/09/17 09:01 Dose: 1 applic Pantoprazole Sodium (Protonix Inj) 40 mg IVP DAILY [facility] Last Admin: 08/09/17 09:00 Dose: 40 mg Sodium Bicarbonate (Sodium Bicarbonate Tab) 1,300 mg PO BID [facility] Zinc Sulfate (Zinc Sulfate 220 Mg Cap) 220 mg PO DAILY [facility] Last Admin: 08/09/17 09:00 Dose: 220 mg - Labs Labs: 08/08/17 05:30 08/09/17 06:00 PT 13.1 SECONDS (9.4-12.5) H 06/15/17 11:00 INR 1.19 (0.93-1.08) H 06/15/17 11:00 APTT 31.3 Seconds (25.1-36.5) 06/15/17 11:00 - Constitutional Appears: No Acute Distress, Chronically Ill - ENT Exam ENT Exam: Mucous Membranes Moist - Respiratory Exam Respiratory Exam: Clear to Ausculation Bilateral, NORMAL BREATHING PATTERN - Cardiovascular Exam Cardiovascular Exam: REGULAR RHYTHM, +S1, +S2 - GI/Abdominal Exam GI & Abdominal Exam: Distended, Soft, Normal Bowel Sounds - Extremities Exam Extremities Exam: Normal Inspection Assessment and Plan - Assessment and Plan (Free Text) Assessment: 67yo female a/w hypercapnic resp failure Hypercapnic resp Failure Oliguria/renal Failure Obesity COPD - currently afebrile, HD stable, not on pressors, intubated, - UOP adequate, 40cc/24hr, renal following, Cr stable, not rising Recommend: - cont with ventilatory support, low tidal vol ventilation, maintain Pplateau<30 - daily sedation vacaiton, CPAP trial - follow up cultures, procalcitonin - cont with Solumedrol IV, taper - obtain ABG - monitor urine output, BUN/Cr - Hold BILLY-I - cont with IVF hydration - follow up renal, no HD for now - cont with antibiotics as per ID - FS control - GI ppx - DVT ppx - Monitor in MICU critical care time 35 minutes
[2017-08-09 12:53] LABS: HEMOGLOBIN 9.2 g/dL (12.0-16.0); MEAN CELL VOLUME 81.7 fl (80.0-105.0); MEAN CORPUSCULAR HEMOGLOBIN 25.9 pg (25.0-35.0); MEAN CORPUSCULAR HGB CONC 31.7 g/dl (31.0-37.0); MEAN PLATELET VOLUME 8.9 fl (7.0-11.0); RBC 3.55 10^6/uL (3.5-6.1); RED CELL DISTRIBUTION WIDTH 25.3 % (11.5-14.5)
[2017-08-09] MEDS: Lactated Ringer's 1,000 ML IV SCH (13:16)
--- NOTE | 2017-08-09 13:56 | CP.PCM.PN ---
Subjective - Date & Time of Evaluation Date of Evaluation: 08/09/17 Time of Evaluation: 13:54 - Subjective Subjective: Follow up Nephrology Consultation (covering for Dr Agustín Bai): Assessment: critical oligoanuric Acute Kidney Injury (N17.9) possibly hemodynamic, GI fluid loss leading to ATN. will also r/o pulmo-renal syndrome morbid obesity, arthritis, anemia, asthma, RAS and RA factor+ recent cellulitis, UTI, fecal impaction acute hypercapnic respi failure hypocalcemia, hyperphosphatemia, acidosis Plan No acute need for renal replacement therapy at this time but may need soon. will need close follow up. serum cr platueing maintain hemodynamics stable. No ACEI/ARB due to CATE Monitor Input/Output, daily weights and renal function with basic metabolic panel continue with IVF as ordered supplement electrolytes as needed started phos binders and bicarb check Anti-GBM, anca. has normal complements Dose meds/antibiotics for reduced GFR. Avoid fleets enema/magnesium based laxatives. Avoid nephrotoxins/NSAIDs/ iodinated contrast (unless needed emergently) Glycemic control Further work up/management as per primary team Thanks for allowing me to participate in care of your patient. Will follow patient with you. Please call if any Qs. d/w team Dr Abel Pierson Office: [phone] Chief Complaint; unable to obtain reason for consult: kidney failure source of info: EMR HPI: Pt is a 67 F with hx of morbid obesity, arthritis, anemia, asthma, RAS and RA factor+ who had prolonged hospitalization for cellulitis which was treated with multiple antibiotics and also had UTI treated with antibiotics, constipation with fecal impaction, was awaiting to go to rehab but had hypercapnic respi failure 08/06/17 which required intubation. pt also having diarrhoea now. renal consulted since serum creatinine 1.6 on 08/06 and 2.6 . her serum creatinine was normal prior to that No recent iodinated contrast exposure. intermittent episodes of low BP (90/50) ROS: pt intubated Physical Examination: General Appearance: orally intubated. no distress. obese Vitals reviewed and noted as below Head; Atraumatic, normocephalic ENT: orally intubated EYES: Pupils are equal, round and reactive to light accommodation. Eye muscles and extraocular movement intact. Sclera is anicteric. Neck; supple no lymphadenopathy, no thyromegaly or bruit Lungs: Normal respiratory rate/effort. Breath sounds bilateral rales+ Heart: Normal rate. s1s2 normal. No rub or gallop. Extremities: no edema. No varicose veins Neurological: Patient is sedated Skin: Warm and dry. Normal turgor. No rash. Palpitation: Normal elasticity for age. dressing over legs + Abdomen: Abdomen is soft. Bowel sounds +. There is no abdominal tenderness, no guarding/rigidity no organomegaly. has rectal tube for diarrhoea Psych: unable MSK: no joint tenderness or swelling. Digits and nails normal, no deformity : kidney or bladder not palpable. has khanna + Labs/imaging reviewed. Past medical history, past surgical history, family history, social history, allergy reviewed and noted as below Family hx: no hx of CKD. Rest non-contributory work up: renal sono: neg Urine Na 88 FeNa2.1% urine eos neg normal complements Objective - Vital Signs/Intake and Output Vital Signs (last 24 hours): Temp Pulse Resp BP Pulse Ox 98.2 F 68 24 143/71 99 08/08/17 20:00 08/09/17 10:00 08/08/17 07:25 08/09/17 08:00 08/09/17 08:20 Intake and Output: 08/09/17 08/09/17 06:59 18:59 Intake Total 3255 100 Output Total 1100 Balance 2155 100 - Medications Medications: Current Medications Albuterol/Ipratropium (Duoneb 3 Mg/0.5 Mg (3 Ml) Ud) 3 ml IH [id number] PRN PRN Reason: Shortness of Breath Last Admin: 08/06/17 13:47 Dose: 3 ml Albuterol/Ipratropium (Duoneb 3 Mg/0.5 Mg (3 Ml) Ud) 3 ml IH Q4H [facility] Last Admin: 08/09/17 11:00 Dose: 3 ml Benzonatate (Tessalon Perles) 100 mg PO TID [facility] Last Admin: 08/09/17 09:00 Dose: 100 mg Calcium Acetate (Phoslo) 667 mg PO TID [facility] Last Admin: 08/09/17 13:18 Dose: 667 mg Ferrous Sulfate (Feosol) 324 mg PO TID [facility] Last Admin: 08/09/17 09:00 Dose: 324 mg Guaifenesin (Robitussin) 200 mg PO Q4H PRN PRN Reason: Cough and congestion Last Admin: 08/05/17 22:33 Dose: 200 mg Propofol (Diprivan) 1,000 mg in 100 mls @ 2.885 mls/hr IV .Q24H PRN; Protocol; 5 MCG/KG/MIN PRN Reason: TITRATE PER MD ORDER Last Admin: 08/09/17 11:57 Dose: 40 mcg/kg/min, 23.079 mls/hr Aztreonam (Azactam 1 Gm) 100 mls @ 100 mls/hr IVPB Q12 [facility] PRN Reason: Protocol Last Admin: 08/09/17 11:57 Dose: 100 mls/hr Metronidazole (Flagyl) 500 mg in 100 mls @ 100 mls/hr IVPB Q8 [facility] PRN Reason: Protocol Last Admin: 08/09/17 08:59 Dose: 100 mls/hr Linezolid (Zyvox 600mg/300ml D5w) 600 mg in 300 mls @ 200 mls/hr IVPB Q12 [facility] PRN Reason: Protocol Last Admin: 08/09/17 09:48 Dose: 200 mls/hr Lactated Ringer's (Lactated Ringer's) 1,000 mls @ 75 mls/hr IV .[id number] [facility] Last Admin: 08/09/17 13:16 Dose: 75 mls/hr Fentanyl Citrate (Fentanyl Citrate/Sodium Chloride 1 Mg/100 Ml) 1,000 mcg in 100 mls @ 5 mls/hr IV .Q20H PRN; Protocol; 50 MCG/HR PRN Reason: TITRATE PER MD ORDER Last Admin: 08/08/17 16:16 Dose: 20 mcg/hr, 2 mls/hr Insulin Human Lispro (Humalog Med) 0 units SC ACHS [facility] PRN Reason: Protocol Last Admin: 08/09/17 11:43 Dose: Not Given Lisinopril (Zestril) 5 mg PO DAILY [facility] Last Admin: 08/06/17 09:14 Dose: 5 mg Methylprednisolone (Solu-Medrol) 60 mg IVP Q12H [facility] Last Admin: 08/09/17 13:21 Dose: 60 mg Multivitamins/Minerals (Therapeutic-M Tab) 1 tab PO 0800 [facility] Last Admin: 08/09/17 09:00 Dose: 1 tab Nystatin (Nystop Topical Powder) 1 gm TOP DAILY [facility] Last Admin: 08/09/17 09:01 Dose: 1 applic Pantoprazole Sodium (Protonix Inj) 40 mg IVP DAILY [facility] Last Admin: 08/09/17 09:00 Dose: 40 mg Sodium Bicarbonate (Sodium Bicarbonate Tab) 1,300 mg PO BID [facility] Last Admin: 08/09/17 13:20 Dose: 1,300 mg Zinc Sulfate (Zinc Sulfate 220 Mg Cap) 220 mg PO DAILY [facility] Last Admin: 08/09/17 09:00 Dose: 220 mg - Labs Labs: 08/09/17 12:30 08/09/17 06:00 PT 13.1 SECONDS (9.4-12.5) H 06/15/17 11:00 INR 1.19 (0.93-1.08) H 06/15/17 11:00 APTT 31.3 Seconds (25.1-36.5) 06/15/17 11:00
[2017-08-09 14:15] LABS: ARTERIAL BLOOD GAS HCO3 19.5 mmol/L (21-28); ARTERIAL BLOOD GAS HEMOGLOBIN 8.9 g/dL (11.7-17.4); ARTERIAL BLOOD GAS O2 CAPACITY 12.4 mL/dl (16-24); ARTERIAL BLOOD GAS O2 CONTENT 12.3 ML/dl (15-23); ARTERIAL BLOOD GAS O2 SAT 99.3 % (95-98); ARTERIAL BLOOD GAS PCO2 37 mm/Hg (35-45); ARTERIAL BLOOD GAS PH 7.33 (7.35-7.45); ARTERIAL BLOOD GAS TCO2 20.6 mmol.L (22-28)
--- NOTE | 2017-08-09 19:56 | CP.PCM.PN ---
Subjective - Date & Time of Evaluation Date of Evaluation: 08/09/17 Time of Evaluation: 16:45 - Subjective Subjective: Infectious Disease Follow Up: August 09, 2017 67 yo female presenting with 3 weeks of RLE ulceration, swelling and leaking from the wound as well as multiple falls in the past 3 weeks. The patient has an extensive medical history of asthma, arthritis, vitamin C deficiency, and possible thyroid disease. Draining RLE ulceration... cellulitis improved/resolved. Multiple chronic medical issues. Still with persistent dry cough. Otherwise stable. Mild erythema and excoriation of the folds in the abdomen and under the breasts. Fevers up to 100.8 F two nights ago. Patient making few complaints. The patient has remained in bed. Nursing and aides had noted that the patient's friend "Chris" has encouraged the patient to stay in bed in order to get to a intermediate or subacute facility. "Chris" was the person the patient was living with prior to coming to [facility] [place]. Also noted that the patient has had a hacking cough the last couple of days. Afebrile for several days now. CT scan of chest done. CT shows mild vascular congestion and no infiltrates. UTI with Klebsiella earlier in hospitalization but had treatment with Cipro that is now completed. Social Issues. Yesterday, the patient had respiratory distress with no improvement from BiPAP. Patient required intubation and ventilation. Transferred to MICU for further care yesterday. The patient was started on Zyvox and Aztreonam IV. Patient had a positive C. Diff antigen but negative toxin. Remains intubated today. Appears stable. Chest X-ray not showing new findings. No leukocytosis. Cultures pending. Patient unable to be weaned from ventilator. Supportive care. No fevers or leukocytosis. Procalcitonin equivocal. Awaiting cultures. Rechecking procalcitonin. Difficulty from weaning from the ventilator. Objective - Vital Signs/Intake and Output Vital Signs (last 24 hours): Temp Pulse Resp BP Pulse Ox 98.2 F 65 24 143/71 99 08/08/17 20:00 08/09/17 18:00 08/08/17 07:25 08/09/17 08:00 08/09/17 08:20 Intake and Output: 08/09/17 08/10/17 18:59 06:59 Intake Total 100 Output Total 900 Balance -800 - Medications Medications: Current Medications Albuterol/Ipratropium (Duoneb 3 Mg/0.5 Mg (3 Ml) Ud) 3 ml IH [id number] PRN PRN Reason: Shortness of Breath Last Admin: 08/06/17 13:47 Dose: 3 ml Albuterol/Ipratropium (Duoneb 3 Mg/0.5 Mg (3 Ml) Ud) 3 ml IH Q4H [facility] Last Admin: 08/09/17 15:58 Dose: 3 ml Benzonatate (Tessalon Perles) 100 mg PO TID [facility] Last Admin: 08/09/17 18:02 Dose: Not Given Calcium Acetate (Phoslo) 667 mg PO TID [facility] Last Admin: 08/09/17 18:07 Dose: 667 mg Ferrous Sulfate (Feosol) 324 mg PO TID [facility] Last Admin: 08/09/17 18:07 Dose: 324 mg Guaifenesin (Robitussin) 200 mg PO Q4H PRN PRN Reason: Cough and congestion Last Admin: 08/05/17 22:33 Dose: 200 mg Propofol (Diprivan) 1,000 mg in 100 mls @ 2.885 mls/hr IV .Q24H PRN; Protocol; 5 MCG/KG/MIN PRN Reason: TITRATE PER MD ORDER Last Admin: 08/09/17 11:57 Dose: 40 mcg/kg/min, 23.079 mls/hr Aztreonam (Azactam 1 Gm) 100 mls @ 100 mls/hr IVPB Q12 [facility] PRN Reason: Protocol Last Admin: 08/09/17 11:57 Dose: 100 mls/hr Metronidazole (Flagyl) 500 mg in 100 mls @ 100 mls/hr IVPB Q8 [facility] PRN Reason: Protocol Last Admin: 08/09/17 14:48 Dose: 100 mls/hr Linezolid (Zyvox 600mg/300ml D5w) 600 mg in 300 mls @ 200 mls/hr IVPB Q12 [facility] PRN Reason: Protocol Last Admin: 08/09/17 09:48 Dose: 200 mls/hr Lactated Ringer's (Lactated Ringer's) 1,000 mls @ 75 mls/hr IV .[id number] [facility] Last Admin: 08/09/17 13:16 Dose: 75 mls/hr Fentanyl Citrate (Fentanyl Citrate/Sodium Chloride 1 Mg/100 Ml) 1,000 mcg in 100 mls @ 5 mls/hr IV .Q20H PRN; Protocol; 50 MCG/HR PRN Reason: TITRATE PER MD ORDER Last Admin: 08/08/17 16:16 Dose: 20 mcg/hr, 2 mls/hr Insulin Human Lispro (Humalog Med) 0 units SC ACHS [facility] PRN Reason: Protocol Last Admin: 08/09/17 18:00 Dose: Not Given Lisinopril (Zestril) 5 mg PO DAILY [facility] Last Admin: 08/06/17 09:14 Dose: 5 mg Methylprednisolone (Solu-Medrol) 60 mg IVP Q12H [facility] Last Admin: 08/09/17 13:21 Dose: 60 mg Multivitamins/Minerals (Therapeutic-M Tab) 1 tab PO 0800 [facility] Last Admin: 08/09/17 09:00 Dose: 1 tab Nystatin (Nystop Topical Powder) 1 gm TOP DAILY [facility] Last Admin: 08/09/17 09:01 Dose: 1 applic Pantoprazole Sodium (Protonix Inj) 40 mg IVP DAILY [facility] Last Admin: 08/09/17 09:00 Dose: 40 mg Sodium Bicarbonate (Sodium Bicarbonate Tab) 1,300 mg PO BID [facility] Last Admin: 08/09/17 18:06 Dose: 1,300 mg Zinc Sulfate (Zinc Sulfate 220 Mg Cap) 220 mg PO DAILY [facility] Last Admin: 08/09/17 09:00 Dose: 220 mg - Labs Labs: 08/09/17 12:30 08/09/17 06:00 PT 13.1 SECONDS (9.4-12.5) H 06/15/17 11:00 INR 1.19 (0.93-1.08) H 06/15/17 11:00 APTT 31.3 Seconds (25.1-36.5) 06/15/17 11:00 - Constitutional Appears: Non-toxic, No Acute Distress, Chronically Ill - Head Exam Head Exam: ATRAUMATIC, NORMOCEPHALIC Additional comments: intubated and ventilated. - Eye Exam Eye Exam: EOMI, PERRL Pupil Exam: NORMAL ACCOMODATION, PERRL - ENT Exam ENT Exam: Mucous Membranes Moist, Normal External Ear Exam, TM's Normal Bilaterally - Neck Exam Neck Exam: Full ROM, Normal Inspection Additional comments: intubated and ventilated - Respiratory Exam Respiratory Exam: Clear to Ausculation Bilateral, NORMAL BREATHING PATTERN. absent: Rales, Rhonchi, Wheezes - Cardiovascular Exam Cardiovascular Exam: REGULAR RHYTHM, RRR, +S1, +S2 - GI/Abdominal Exam GI & Abdominal Exam: Soft, Normal Bowel Sounds. absent: Distended, Tenderness - Extremities Exam Extremities Exam: Full ROM, Normal Inspection - Neurological Exam Neurological Exam: CN II-XII Intact - Psychiatric Exam Additional comments: sedated. - Skin Skin Exam: Intact, Normal Color Assessment and Plan - Assessment and Plan (Free Text) Assessment: 67 yo female with multiple medical issues with PCN allergy diagnosed as a teenager verified by an [employer]. The patient with leukocytosis. Await cultures especially urine cultures. Diabetes and HTN history? Local wound care. Elevated ESR and C-reactive protein. Completed Vancomycin and Aztreonam for antibiotic coverage. UTI with E. coli sensitive to Azactam. Was on Vancomycin for cellulitis IV. For UTI for 5-7 days treatment... completed. Supportive care. Cellulitis appears improved. No new issues. Social issues currently. Homeless at this time. CT scan of chest done. No infiltrates seen. Afebrile the past 24 hours. Mild congestion noted in CT with small pulmonary effusions. No leukocytosis. Slightly elevated procalcitonin (0.66) which is undefined without stronger evidence for pneumonia. When encouraged, she is able to use the incentive spirometer without issues and ambulate with minimal difficulty. Repeat procalcitonin showing 0.71. UTI with Klebsiella. Sensitive to Cipro. Was on Cipro for 5 day course at 500mg PO BID. Completed the antibiotic course. Stable currently. No new issues. Off antibiotics at this time. Multiple social issues. Chronic cough still with periods of hacking. Complained of Vague mild general pains. Awaiting placement. Yesterday the patient developed respiratory failure and required intubation. Started on Zyvox and Aztreonam IV. Will add Flagyl as well. No leukocytosis. Noted C. Diff with positive antigen but negative toxin. Supportive care. Remains intubated and ventilated. Cultures pending. C. Diff negative to date. No leukocytosis or fever reported. Essentially clear X-ray. Will consider deescalation of antibiotic in the next 24-48 hours. Thank you for allowing me to participate in the care of the patient, we will follow with you.
[2017-08-10] MEDS: Propofol 10 mg/ml 1,000 MG/100 ML VIAL IV PRN ×4 (02:08→23:05)
[2017-08-10] MEDS: Albuterol-Ipratrop 3 mg / 0.5 (3 ml) UD IH SCH ×8 (03:15→23:05)
[2017-08-10] MEDS: Lactated Ringer's 1,000 ML IV SCH ×2 (04:00→22:34)
[2017-08-10] MEDS: metroNIDAZOLE IV 500 mg/100 ml 500 MG/100 ML BAG IVPB SCH ×3 (05:19→22:32)
[2017-08-10] MEDS: Fentanyl 1000mcg/100ml NS 1,000 MCG/100 ML BAG IV PRN (06:00)
[2017-08-10 06:55] LABS: ARTERIAL BLOOD GAS HCO3 19.8 mmol/L (21-28); ARTERIAL BLOOD GAS HEMOGLOBIN 10.5 g/dL (11.7-17.4); ARTERIAL BLOOD GAS O2 CAPACITY 14.5 mL/dl (16-24); ARTERIAL BLOOD GAS O2 CONTENT 14.2 ML/dl (15-23); ARTERIAL BLOOD GAS PCO2 35 mm/Hg (35-45); ARTERIAL BLOOD GAS PH 7.36 (7.35-7.45); ARTERIAL BLOOD GAS TCO2 20.9 mmol.L (22-28)
[2017-08-10 07:06] LABS: ALBUMIN 2.8 g/dL (3.0-4.8); CALCIUM 7.2 mg/dL (8.4-10.5)
[2017-08-10 07:14] LABS: ALB/GLOB RATIO 0.9 (1.1-1.8)
[2017-08-10 07:17] LABS: BASO # 0.01 K/mm3 (0.0-2.0); BASO % 0.2 % (0.0-3.0); GRAN # 5.44 (1.4-6.5); HEMOGLOBIN 9.8 g/dL (12.0-16.0); LYMPH # 0.5 (1.2-3.4); LYMPH % 8.4 % (22.0-35.0); MEAN CELL VOLUME 79.9 fl (80.0-105.0); MEAN CORPUSCULAR HEMOGLOBIN 25.9 pg (25.0-35.0); MEAN CORPUSCULAR HGB CONC 32.5 g/dl (31.0-37.0); MEAN PLATELET VOLUME 8.6 fl (7.0-11.0); MONO # 0.2 (0.1-0.6); MONO % 3.4 % (1.0-6.0); RBC 3.78 10^6/uL (3.5-6.1); RED CELL DISTRIBUTION WIDTH 25.2 % (11.5-14.5); WHITE BLOOD COUNT 6.2 10^3/ul (4.5-11.0)
[2017-08-10] MEDS: Insulin Lispro (humaLOG) MEDIUM Coverage SC SCH ×4 (08:18→22:33)
[2017-08-10] MEDS: Multivitamin With Minerals Tab PO SCH (08:58)
[2017-08-10] MEDS: Nystatin 100,000 Units/gm Topical Pow(15 gm) TOP SCH (09:02)
[2017-08-10] MEDS: Aztreonam 1 Gm in NS 100mL 100 ML IVPB SCH ×2 (09:02→21:05)
[2017-08-10] MEDS: Linezolid 600 mg in D5W 300 ml 600 MG/300 ML BAG IVPB SCH ×2 (09:07→22:32)
--- NOTE | 2017-08-10 10:14 | RAD ---
HISTORY: intubated COMPARISON: 08/08/2017 FINDINGS: LUNGS: No active pulmonary disease. PLEURA: No significant pleural effusion identified, no pneumothorax apparent. CARDIOVASCULAR: Mild cardiomegaly and mild vascular congestion OSSEOUS STRUCTURES: No significant abnormalities. VISUALIZED UPPER ABDOMEN: Normal. OTHER FINDINGS: The endotracheal tube is not optimally visualized IMPRESSION: The nasogastric tube is in satisfactory position.
--- NOTE | 2017-08-10 11:21 | CP.PCM.PN ---
<Shan Zepeda - Last Filed: 08/10/17 16:32> Subjective - Date & Time of Evaluation Date of Evaluation: 08/10/17 Time of Evaluation: 06:00 - Subjective Subjective: Patient seen and evaluated in ICU, patient intubated and on sedation. Unable to get a complete ROS Objective - Vital Signs/Intake and Output Vital Signs (last 24 hours): Temp Pulse Resp BP Pulse Ox 93.4 F L 52 L 28 H 140/71 98 08/10/17 06:40 08/10/17 06:40 08/10/17 08:20 08/10/17 06:00 08/10/17 08:20 Intake and Output: 08/10/17 08/10/17 06:59 18:59 Intake Total 2025 110 Output Total 800 Balance 1225 110 - Medications Medications: Current Medications Albuterol/Ipratropium (Duoneb 3 Mg/0.5 Mg (3 Ml) Ud) 3 ml IH [id number] PRN PRN Reason: Shortness of Breath Last Admin: 08/06/17 13:47 Dose: 3 ml Albuterol/Ipratropium (Duoneb 3 Mg/0.5 Mg (3 Ml) Ud) 3 ml IH Q4H [facility] Last Admin: 08/10/17 08:19 Dose: 3 ml Benzonatate (Tessalon Perles) 100 mg PO TID [facility] Last Admin: 08/10/17 09:02 Dose: 100 mg Calcium Acetate (Phoslo) 667 mg PO TID [facility] Last Admin: 08/10/17 09:01 Dose: 667 mg Ferrous Sulfate (Feosol) 324 mg PO TID [facility] Last Admin: 08/10/17 09:01 Dose: 324 mg Guaifenesin (Robitussin) 200 mg PO Q4H PRN PRN Reason: Cough and congestion Last Admin: 08/05/17 22:33 Dose: 200 mg Propofol (Diprivan) 1,000 mg in 100 mls @ 2.885 mls/hr IV .Q24H PRN; Protocol; 5 MCG/KG/MIN PRN Reason: TITRATE PER MD ORDER Last Titration: 08/10/17 08:56 Dose: 30 mcg/kg/min, 17.309 mls/hr Aztreonam (Azactam 1 Gm) 100 mls @ 100 mls/hr IVPB Q12 [facility] PRN Reason: Protocol Last Admin: 08/10/17 09:02 Dose: 100 mls/hr Metronidazole (Flagyl) 500 mg in 100 mls @ 100 mls/hr IVPB Q8 [facility] PRN Reason: Protocol Last Admin: 08/10/17 05:19 Dose: 100 mls/hr Linezolid (Zyvox 600mg/300ml D5w) 600 mg in 300 mls @ 200 mls/hr IVPB Q12 [facility] PRN Reason: Protocol Last Admin: 08/10/17 09:07 Dose: 200 mls/hr Lactated Ringer's (Lactated Ringer's) 1,000 mls @ 75 mls/hr IV .[id number] [facility] Last Admin: 08/10/17 04:00 Dose: 75 mls/hr Fentanyl Citrate (Fentanyl Citrate/Sodium Chloride 1 Mg/100 Ml) 1,000 mcg in 100 mls @ 5 mls/hr IV .Q20H PRN; Protocol; 50 MCG/HR PRN Reason: TITRATE PER MD ORDER Last Titration: 08/10/17 10:22 Dose: 10 mcg/hr, 1 mls/hr Insulin Human Lispro (Humalog Med) 0 units SC ACHS [facility] PRN Reason: Protocol Last Admin: 08/10/17 08:18 Dose: Not Given Lisinopril (Zestril) 5 mg PO DAILY [facility] Last Admin: 08/06/17 09:14 Dose: 5 mg Methylprednisolone (Solu-Medrol) 60 mg IVP Q12H [facility] Last Admin: 08/09/17 22:59 Dose: 60 mg Multivitamins/Minerals (Therapeutic-M Tab) 1 tab PO 0800 [facility] Last Admin: 08/10/17 08:58 Dose: 1 tab Nystatin (Nystop Topical Powder) 1 gm TOP DAILY [facility] Last Admin: 08/10/17 09:02 Dose: 1 applic Pantoprazole Sodium (Protonix Inj) 40 mg IVP DAILY [facility] Last Admin: 08/10/17 09:02 Dose: 40 mg Sodium Bicarbonate (Sodium Bicarbonate Tab) 1,300 mg PO BID [facility] Last Admin: 08/10/17 09:01 Dose: 1,300 mg Zinc Sulfate (Zinc Sulfate 220 Mg Cap) 220 mg PO DAILY [facility] Last Admin: 08/10/17 09:03 Dose: 220 mg - Labs Labs: 08/10/17 06:30 08/10/17 06:30 PT 13.1 SECONDS (9.4-12.5) H 06/15/17 11:00 INR 1.19 (0.93-1.08) H 06/15/17 11:00 APTT 31.3 Seconds (25.1-36.5) 06/15/17 11:00 - Constitutional Appears: No Acute Distress - Head Exam Head Exam: ATRAUMATIC, NORMAL INSPECTION, NORMOCEPHALIC - Respiratory Exam Respiratory Exam: Clear to Ausculation Bilateral, NORMAL BREATHING PATTERN - Cardiovascular Exam Cardiovascular Exam: REGULAR RHYTHM, +S1, +S2 - GI/Abdominal Exam GI & Abdominal Exam: Distended, Soft - Extremities Exam Extremities Exam: Pedal Edema - Neurological Exam Additional comments: Sedated Assessment and Plan - Assessment and Plan (Free Text) Assessment: Patient is a 67 year old female with past medical history of asthma, arthritis, anemia, and obesity who was admitted for right lower extremity cellulitis and UTI. Patient was found to have cultures positive for Proteus mirabilis and beta hemolytic strep, s/p completed IV course of Vancomycin and Azactam. Patient subsequently found to have Klebsiella UTI s/p adequate treatment with Ciprofloxacin. Patient's course was also complicated by fecal impaction, currently resolved. Pt also found to have intermittent dyspnea, workup revealing a diagnosis of rheumatoid arthritis. Patient is awaiting placement in [facility] pending approval for Medicaid. Patient experienced respiratory failure and was intubated/ transferred to the ICU. Plan: Hypercapnic Respiratory Failure -Improving, pC02: 35 pO2: 89 ph: 7.36 - patient is intubated and ventilated - CXR reviewed and appreciated- showed no distinctive infiltrate - ABG reviewed and appreciated- pH normalizing, continue to monitor respiratory status - c/w duonebs and solumedrol and pulmicort - c/w zyvox and aztreonam- ID consulted appreciate recommendations HTN - BP reviewed, trended, and appreciated - hold zestril due to CATE Abdominal Distension - likely 2/2 Constipation/fecal impaction - CT Abdomen Pelvis with PO and IV Contrast (07/18): Interstitial and airspace disease in the lung bases; mild cardiomegaly and atherosclerotic disease; fatty liver; gallstones; possible pyelonephritis; mild ileus, no obstruction; constipation with fecal impaction - abdominal flat plate-No acute changes or findings Normocytic anemia - Hemoglobins reviewed, trended, and appreciated- decrease noted, will transfuse if Hbg < 7.0 - Monitor daily Diarrhea - rectal tube removed - Stool C diff- positive antigen, negative toxin - c/w flagyl- ID consulted appreciate recommendations Oliguric CATE - creatinine and bun reviewed, trended, and appreciated BUN: 38 Cr:3.10 - Nephrology consulted- recommendation appreciated- No acute need for renal replacement therapy at this time but may need soon. will need close follow up. - -serum cr platueing -maintain hemodynamics stable. -Monitor Input/Output, daily weights and renal function with basic metabolic panel -supplement electrolytes as needed -check Anti-GBM, anca. has normal complements - c/w LR @75 - urine electrolytes and urine creatinine within normal limits - continue to hold BILLY-lisinopril and no arb - continue to monitor via daily CMP -Urine output 1500 -Calcium 7.1, repleted, monitor Hypothermia -Temp 93.0 -[place] -TSH level pending -Blood anr urine cultures pending Hypokalemia -K 3.3 -repleted -continue to monitor Prophylaxis: - GI ppx Protonix - DVT ppx: Heparin <Max Liriano - Last Filed: 08/12/17 15:53> Objective - Vital Signs/Intake and Output Vital Signs (last 24 hours): Temp Pulse Resp BP Pulse Ox 97.3 F L 55 L 28 H 105/58 L 99 08/12/17 08:00 08/12/17 08:54 08/12/17 07:51 08/12/17 07:00 08/12/17 07:51 Intake and Output: 08/12/17 08/12/17 06:59 18:59 Intake Total 2120 60 Output Total 1300 Balance 820 60 - Medications Medications: Current Medications Albuterol/Ipratropium (Duoneb 3 Mg/0.5 Mg (3 Ml) Ud) 3 ml IH Q6 [facility] Last Admin: 08/12/17 13:40 Dose: 3 ml Albuterol/Ipratropium (Duoneb 3 Mg/0.5 Mg (3 Ml) Ud) 3 ml IH Q6 PRN PRN Reason: SOB Calcium Acetate (Phoslo) 667 mg PO TID [facility] Last Admin: 08/12/17 09:28 Dose: 667 mg Ergocalciferol (Drisdol 50,000 Intl Units Cap) 1 cap PO Q7D [facility] Ferrous Sulfate (Feosol) 324 mg PO TID [facility] Last Admin: 08/12/17 09:27 Dose: 324 mg Guaifenesin (Robitussin) 200 mg PO Q4H PRN PRN Reason: Cough and congestion Last Admin: 08/05/17 22:33 Dose: 200 mg Propofol (Diprivan) 1,000 mg in 100 mls @ 2.885 mls/hr IV .Q24H PRN; Protocol; 5 MCG/KG/MIN PRN Reason: TITRATE PER MD ORDER Last Titration: 08/12/17 09:23 Dose: 0 mcg/kg/min, 0 mls/hr Aztreonam (Azactam 1 Gm) 100 mls @ 100 mls/hr IVPB Q12 [facility] PRN Reason: Protocol Last Admin: 08/12/17 09:19 Dose: 100 mls/hr Metronidazole (Flagyl) 500 mg in 100 mls @ 100 mls/hr IVPB Q8 [facility] PRN Reason: Protocol Last Admin: 08/12/17 05:23 Dose: 100 mls/hr Linezolid (Zyvox 600mg/300ml D5w) 600 mg in 300 mls @ 200 mls/hr IVPB Q12 [facility] PRN Reason: Protocol Last Admin: 08/12/17 11:02 Dose: 200 mls/hr Lactated Ringer's (Lactated Ringer's) 1,000 mls @ 100 mls/hr IV .Q10H [facility] Insulin Human Lispro (Humalog Med) 0 units SC ACHS [facility] PRN Reason: Protocol Last Admin: 08/12/17 09:18 Dose: Not Given Levothyroxine Sodium (Synthroid) 50 mcg IVP DAILY [facility] Last Admin: 08/12/17 09:29 Dose: 50 mcg Lisinopril (Zestril) 5 mg PO DAILY [facility] Last Admin: 08/06/17 09:14 Dose: 5 mg Methylprednisolone (Solu-Medrol) 40 mg IVP Q12 [facility] Last Admin: 08/12/17 09:29 Dose: 40 mg Multivitamins/Minerals (Therapeutic-M Tab) 1 tab PO 0800 [facility] Last Admin: 08/12/17 09:28 Dose: 1 tab Nystatin (Nystop Topical Powder) 1 gm TOP DAILY [facility] Last Admin: 08/12/17 09:30 Dose: 1 applic Pantoprazole Sodium (Protonix Inj) 40 mg IVP DAILY [facility] Last Admin: 08/12/17 09:29 Dose: 40 mg Sodium Bicarbonate (Sodium Bicarbonate Tab) 1,300 mg PO BID [facility] Last Admin: 08/12/17 09:28 Dose: 1,300 mg Zinc Sulfate (Zinc Sulfate 220 Mg Cap) 220 mg PO DAILY [facility] Last Admin: 08/12/17 09:27 Dose: 220 mg - Labs Labs: 08/12/17 05:50 08/12/17 05:50 PT 13.1 SECONDS (9.4-12.5) H 06/15/17 11:00 INR 1.19 (0.93-1.08) H 06/15/17 11:00 APTT 31.3 Seconds (25.1-36.5) 06/15/17 11:00 Attending/Attestation - Attestation I have personally seen and examined this patient.: Yes I have fully participated in the care of the patient.: Yes I have reviewed all pertinent clinical information, including history, physical exam and plan: Yes Notes (Text): 08/12/17 15:49 Patient was seen and examined with medical accounts receivable specialist. 67 year old female with Respiratory failure due to hypercapnic Resp Failure due to COPD exacerbation and obesity Hypoventilation syndrome.Hypercapnia is better but mental status is poor, patient is on Ventilatory support,ICU team is following.Sedation has been tapered down. Patient is hypothermic today, will do ching cultures, On IV antibiotics as per ID. Urine out put has improved. creatinin is stable. Case was discussed with Nehrology and critical care attending. Prognosis is guarded.
--- NOTE | 2017-08-10 12:06 | CP.PCM.PN ---
Subjective - Date & Time of Evaluation Date of Evaluation: 08/10/17 Time of Evaluation: 07:20 - Subjective Subjective: Pt seen and examined, remains intubated. Objective - Vital Signs/Intake and Output Vital Signs (last 24 hours): Temp Pulse Resp BP Pulse Ox 93.4 F L 52 L 28 H 140/71 98 08/10/17 06:40 08/10/17 06:40 08/10/17 08:20 08/10/17 06:00 08/10/17 08:20 Intake and Output: 08/10/17 08/10/17 06:59 18:59 Intake Total 2024 110 Output Total 800 Balance 1225 110 - Medications Medications: Current Medications Albuterol/Ipratropium (Duoneb 3 Mg/0.5 Mg (3 Ml) Ud) 3 ml IH [id number] PRN PRN Reason: Shortness of Breath Last Admin: 08/06/17 13:47 Dose: 3 ml Albuterol/Ipratropium (Duoneb 3 Mg/0.5 Mg (3 Ml) Ud) 3 ml IH Q4H [facility] Last Admin: 08/10/17 08:19 Dose: 3 ml Benzonatate (Tessalon Perles) 100 mg PO TID [facility] Last Admin: 08/10/17 09:02 Dose: 100 mg Calcium Acetate (Phoslo) 667 mg PO TID [facility] Last Admin: 08/10/17 09:01 Dose: 667 mg Ferrous Sulfate (Feosol) 324 mg PO TID [facility] Last Admin: 08/10/17 09:01 Dose: 324 mg Guaifenesin (Robitussin) 200 mg PO Q4H PRN PRN Reason: Cough and congestion Last Admin: 08/05/17 22:33 Dose: 200 mg Propofol (Diprivan) 1,000 mg in 100 mls @ 2.885 mls/hr IV .Q24H PRN; Protocol; 5 MCG/KG/MIN PRN Reason: TITRATE PER MD ORDER Last Titration: 08/10/17 08:56 Dose: 30 mcg/kg/min, 17.309 mls/hr Aztreonam (Azactam 1 Gm) 100 mls @ 100 mls/hr IVPB Q12 [facility] PRN Reason: Protocol Last Admin: 08/10/17 09:02 Dose: 100 mls/hr Metronidazole (Flagyl) 500 mg in 100 mls @ 100 mls/hr IVPB Q8 [facility] PRN Reason: Protocol Last Admin: 08/10/17 05:19 Dose: 100 mls/hr Linezolid (Zyvox 600mg/300ml D5w) 600 mg in 300 mls @ 200 mls/hr IVPB Q12 [facility] PRN Reason: Protocol Last Admin: 08/10/17 09:07 Dose: 200 mls/hr Lactated Ringer's (Lactated Ringer's) 1,000 mls @ 75 mls/hr IV .[id number] [facility] Last Admin: 08/10/17 04:00 Dose: 75 mls/hr Fentanyl Citrate (Fentanyl Citrate/Sodium Chloride 1 Mg/100 Ml) 1,000 mcg in 100 mls @ 5 mls/hr IV .Q20H PRN; Protocol; 50 MCG/HR PRN Reason: TITRATE PER MD ORDER Last Titration: 08/10/17 10:22 Dose: 10 mcg/hr, 1 mls/hr Insulin Human Lispro (Humalog Med) 0 units SC ACHS [facility] PRN Reason: Protocol Last Admin: 08/10/17 08:18 Dose: Not Given Lisinopril (Zestril) 5 mg PO DAILY [facility] Last Admin: 08/06/17 09:14 Dose: 5 mg Methylprednisolone (Solu-Medrol) 60 mg IVP Q12H [facility] Last Admin: 08/10/17 11:25 Dose: 60 mg Multivitamins/Minerals (Therapeutic-M Tab) 1 tab PO 0800 [facility] Last Admin: 08/10/17 08:58 Dose: 1 tab Nystatin (Nystop Topical Powder) 1 gm TOP DAILY [facility] Last Admin: 08/10/17 09:02 Dose: 1 applic Pantoprazole Sodium (Protonix Inj) 40 mg IVP DAILY [facility] Last Admin: 08/10/17 09:02 Dose: 40 mg Potassium Chloride (Potassium Chloride Oral Soln) 20 meq NG BID [facility] Stop: 08/10/17 18:01 Sodium Bicarbonate (Sodium Bicarbonate Tab) 1,300 mg PO BID [facility] Last Admin: 08/10/17 09:01 Dose: 1,300 mg Zinc Sulfate (Zinc Sulfate 220 Mg Cap) 220 mg PO DAILY [facility] Last Admin: 08/10/17 09:03 Dose: 220 mg - Labs Labs: 08/10/17 06:30 08/10/17 06:30 PT 13.1 SECONDS (9.4-12.5) H 06/15/17 11:00 INR 1.19 (0.93-1.08) H 06/15/17 11:00 APTT 31.3 Seconds (25.1-36.5) 06/15/17 11:00 - Constitutional Appears: Non-toxic, No Acute Distress - Eye Exam Eye Exam: Normal appearance - Respiratory Exam Respiratory Exam: Clear to Ausculation Bilateral, NORMAL BREATHING PATTERN - Cardiovascular Exam Cardiovascular Exam: REGULAR RHYTHM, +S1, +S2 - GI/Abdominal Exam GI & Abdominal Exam: Soft, Normal Bowel Sounds - Extremities Exam Extremities Exam: Normal Inspection - Skin Skin Exam: Warm Assessment and Plan - Assessment and Plan (Free Text) Assessment: 67yo female a/w hypercapnic resp failure Hypercapnic resp Failure, intubated Oliguria/renal Failure, improving UOP Obesity COPD - currently afebrile, HD stable,OFF pressors - UOP adequate, 1600cc/24hr, renal following, Cr stable, not rising, likely ATN - daily CPAP trials off sedation 05/06/% failed, will likely need trach Recommend: - cont with ventilatory support, low tidal vol ventilation, maintain Pplateau<30 - daily sedation vacaiton, CPAP trial - follow up cultures, cont with Antibiotics - cont with Solumedrol IV, taper - monitor urine output, BUN/Cr - Hold BILLY-I - BP control - cont with IVF hydration, LR 75cc/hr - follow up renal, no HD for now - FS control - GI ppx - DVT ppx - Monitor in MICU critical care time 30 minutes
[2017-08-10 12:53] LABS: T4 3.4 ug/dL (5.5-11.0)
[2017-08-10] MEDS: Potassium Chloride 20 mEq/15 ml LIQ UD NG SCH ×2 (13:36→20:28)
--- NOTE | 2017-08-10 14:44 | CP.PCM.PN ---
Subjective - Date & Time of Evaluation Date of Evaluation: 08/10/17 Time of Evaluation: 14:43 - Subjective Subjective: Follow up Nephrology Consultation (covering for Dr Agustín Bai): Assessment: critical non-oliguric Acute Kidney Injury (N17.9) possibly hemodynamic, GI fluid loss leading to ATN. will also r/o pulmo-renal syndrome morbid obesity, arthritis, anemia, asthma, RAS and RA factor+ recent cellulitis, UTI, fecal impaction acute hypercapnic respi failure hypocalcemia, hyperphosphatemia, acidosis, hypokalemia Plan No acute need for renal replacement therapy at this time UOP improving. serum cr platueing maintain hemodynamics stable. No ACEI/ARB due to CATE Monitor Input/Output, daily weights and renal function with basic metabolic panel continue with IVF as ordered supplement electrolytes as needed started phos binders and bicarb check Anti-GBM, anca. has normal complements Dose meds/antibiotics for reduced GFR. Avoid fleets enema/magnesium based laxatives. Avoid nephrotoxins/NSAIDs/ iodinated contrast (unless needed emergently) Glycemic control Further work up/management as per primary team Thanks for allowing me to participate in care of your patient. Will follow patient with you. Please call if any Qs. d/w team Dr Abel Pierson Office: [phone] Chief Complaint; unable to obtain reason for consult: kidney failure source of info: EMR HPI: Pt is a 67 F with hx of morbid obesity, arthritis, anemia, asthma, RAS and RA factor+ who had prolonged hospitalization for cellulitis which was treated with multiple antibiotics and also had UTI treated with antibiotics, constipation with fecal impaction, was awaiting to go to rehab but had hypercapnic respi failure 08/06/17 which required intubation. pt also having diarrhoea now. renal consulted since serum creatinine 1.6 on 08/06 and 2.6 . her serum creatinine was normal prior to that No recent iodinated contrast exposure. intermittent episodes of low BP (90/50) ROS: pt intubated Physical Examination: General Appearance: orally intubated. no distress. obese Vitals reviewed and noted as below Head; Atraumatic, normocephalic ENT: orally intubated EYES: Pupils are equal, round and reactive to light accommodation. Eye muscles and extraocular movement intact. Sclera is anicteric. Neck; supple no lymphadenopathy, no thyromegaly or bruit Lungs: Normal respiratory rate/effort. Breath sounds bilateral rales+ Heart: Normal rate. s1s2 normal. No rub or gallop. Extremities: no edema. No varicose veins Neurological: Patient is sedated Skin: Warm and dry. Normal turgor. No rash. Palpitation: Normal elasticity for age. dressing over legs + Abdomen: Abdomen is soft. Bowel sounds +. There is no abdominal tenderness, no guarding/rigidity no organomegaly. has rectal tube for diarrhoea Psych: unable MSK: no joint tenderness or swelling. Digits and nails normal, no deformity : kidney or bladder not palpable. has khanna + Labs/imaging reviewed. Past medical history, past surgical history, family history, social history, allergy reviewed and noted as below Family hx: no hx of CKD. Rest non-contributory work up: renal sono: neg Urine Na 88 FeNa2.1% urine eos neg normal complements Objective - Vital Signs/Intake and Output Vital Signs (last 24 hours): Temp Pulse Resp BP Pulse Ox 97.2 F L 69 28 H 140/71 98 08/10/17 14:00 08/10/17 14:00 08/10/17 08:20 08/10/17 06:00 08/10/17 08:20 Intake and Output: 08/10/17 08/10/17 06:59 18:59 Intake Total 5 110 Output Total 800 Balance 1225 110 - Medications Medications: Current Medications Albuterol/Ipratropium (Duoneb 3 Mg/0.5 Mg (3 Ml) Ud) 3 ml IH [id number] PRN PRN Reason: Shortness of Breath Last Admin: 08/06/17 13:47 Dose: 3 ml Albuterol/Ipratropium (Duoneb 3 Mg/0.5 Mg (3 Ml) Ud) 3 ml IH Q4H [facility] Last Admin: 08/10/17 12:09 Dose: 3 ml Calcium Acetate (Phoslo) 667 mg PO TID [facility] Last Admin: 08/10/17 13:35 Dose: 667 mg Ferrous Sulfate (Feosol) 324 mg PO TID [facility] Last Admin: 08/10/17 13:35 Dose: 324 mg Guaifenesin (Robitussin) 200 mg PO Q4H PRN PRN Reason: Cough and congestion Last Admin: 08/05/17 22:33 Dose: 200 mg Propofol (Diprivan) 1,000 mg in 100 mls @ 2.885 mls/hr IV .Q24H PRN; Protocol; 5 MCG/KG/MIN PRN Reason: TITRATE PER MD ORDER Last Titration: 08/10/17 08:56 Dose: 30 mcg/kg/min, 17.309 mls/hr Aztreonam (Azactam 1 Gm) 100 mls @ 100 mls/hr IVPB Q12 [facility] PRN Reason: Protocol Last Admin: 08/10/17 09:02 Dose: 100 mls/hr Metronidazole (Flagyl) 500 mg in 100 mls @ 100 mls/hr IVPB Q8 [facility] PRN Reason: Protocol Last Admin: 08/10/17 13:38 Dose: 100 mls/hr Linezolid (Zyvox 600mg/300ml D5w) 600 mg in 300 mls @ 200 mls/hr IVPB Q12 [facility] PRN Reason: Protocol Last Admin: 08/10/17 09:07 Dose: 200 mls/hr Lactated Ringer's (Lactated Ringer's) 1,000 mls @ 75 mls/hr IV .[id number] [facility] Last Admin: 08/10/17 04:00 Dose: 75 mls/hr Fentanyl Citrate (Fentanyl Citrate/Sodium Chloride 1 Mg/100 Ml) 1,000 mcg in 100 mls @ 5 mls/hr IV .Q20H PRN; Protocol; 50 MCG/HR PRN Reason: TITRATE PER MD ORDER Last Titration: 08/10/17 10:22 Dose: 10 mcg/hr, 1 mls/hr Insulin Human Lispro (Humalog Med) 0 units SC ACHS [facility] PRN Reason: Protocol Last Admin: 08/10/17 12:14 Dose: Not Given Lisinopril (Zestril) 5 mg PO DAILY [facility] Last Admin: 08/06/17 09:14 Dose: 5 mg Methylprednisolone (Solu-Medrol) 60 mg IVP Q12H [facility] Last Admin: 08/10/17 11:25 Dose: 60 mg Multivitamins/Minerals (Therapeutic-M Tab) 1 tab PO 0800 [facility] Last Admin: 08/10/17 08:58 Dose: 1 tab Nystatin (Nystop Topical Powder) 1 gm TOP DAILY [facility] Last Admin: 08/10/17 09:02 Dose: 1 applic Pantoprazole Sodium (Protonix Inj) 40 mg IVP DAILY [facility] Last Admin: 08/10/17 09:02 Dose: 40 mg Potassium Chloride (Potassium Chloride Oral Soln) 20 meq NG BID [facility] Stop: 08/10/17 18:01 Last Admin: 08/10/17 13:36 Dose: 20 meq Sodium Bicarbonate (Sodium Bicarbonate Tab) 1,300 mg PO BID [facility] Last Admin: 08/10/17 09:01 Dose: 1,300 mg Zinc Sulfate (Zinc Sulfate 220 Mg Cap) 220 mg PO DAILY [facility] Last Admin: 08/10/17 09:03 Dose: 220 mg - Labs Labs: 08/10/17 06:30 08/10/17 06:30 PT 13.1 SECONDS (9.4-12.5) H 06/15/17 11:00 INR 1.19 (0.93-1.08) H 06/15/17 11:00 APTT 31.3 Seconds (25.1-36.5) 06/15/17 11:00
--- NOTE | 2017-08-10 17:31 | CP.PCM.PN ---
Subjective - Date & Time of Evaluation Date of Evaluation: 08/10/17 Time of Evaluation: 15:45 - Subjective Subjective: Infectious Disease Follow Up: August 10, 2017 67 yo female presenting with 3 weeks of RLE ulceration, swelling and leaking from the wound as well as multiple falls in the past 3 weeks. The patient has an extensive medical history of asthma, arthritis, vitamin C deficiency, and possible thyroid disease. Draining RLE ulceration... cellulitis improved/resolved. Multiple chronic medical issues. Still with persistent dry cough. Otherwise stable. Mild erythema and excoriation of the folds in the abdomen and under the breasts. UTI with Klebsiella earlier in hospitalization but had treatment with Cipro that is now completed. Social Issues. The patient had respiratory distress with no improvement from BiPAP. Patient required intubation and ventilation. Transferred to MICU for further care. The patient was started on Zyvox and Aztreonam IV. Patient had a positive C. Diff antigen but negative toxin. Remains intubated today. Appears stable. Chest X-ray not showing new findings. No leukocytosis. Cultures pending... so far negative. Patient unable to be weaned from ventilator. Supportive care. No fevers or leukocytosis. Procalcitonin equivocal. Awaiting cultures. Will consider deescalating antibiotics. Rechecking procalcitonin. Difficulty from weaning from the ventilator. Objective - Vital Signs/Intake and Output Vital Signs (last 24 hours): Temp Pulse Resp BP Pulse Ox 97.2 F L 69 28 H 140/71 98 08/10/17 14:00 08/10/17 14:00 08/10/17 08:20 08/10/17 06:00 08/10/17 08:20 Intake and Output: 08/10/17 08/10/17 06:59 18:59 Intake Total 2024 110 Output Total 800 Balance 1225 110 - Medications Medications: Current Medications Albuterol/Ipratropium (Duoneb 3 Mg/0.5 Mg (3 Ml) Ud) 3 ml IH [id number] PRN PRN Reason: Shortness of Breath Last Admin: 08/06/17 13:47 Dose: 3 ml Albuterol/Ipratropium (Duoneb 3 Mg/0.5 Mg (3 Ml) Ud) 3 ml IH Q4H [facility] Last Admin: 08/10/17 16:04 Dose: 3 ml Calcium Acetate (Phoslo) 667 mg PO TID [facility] Last Admin: 08/10/17 13:35 Dose: 667 mg Ferrous Sulfate (Feosol) 324 mg PO TID [facility] Last Admin: 08/10/17 13:35 Dose: 324 mg Guaifenesin (Robitussin) 200 mg PO Q4H PRN PRN Reason: Cough and congestion Last Admin: 08/05/17 22:33 Dose: 200 mg Propofol (Diprivan) 1,000 mg in 100 mls @ 2.885 mls/hr IV .Q24H PRN; Protocol; 5 MCG/KG/MIN PRN Reason: TITRATE PER MD ORDER Last Titration: 08/10/17 08:56 Dose: 30 mcg/kg/min, 17.309 mls/hr Aztreonam (Azactam 1 Gm) 100 mls @ 100 mls/hr IVPB Q12 [facility] PRN Reason: Protocol Last Admin: 08/10/17 09:02 Dose: 100 mls/hr Metronidazole (Flagyl) 500 mg in 100 mls @ 100 mls/hr IVPB Q8 [facility] PRN Reason: Protocol Last Admin: 08/10/17 13:38 Dose: 100 mls/hr Linezolid (Zyvox 600mg/300ml D5w) 600 mg in 300 mls @ 200 mls/hr IVPB Q12 [facility] PRN Reason: Protocol Last Admin: 08/10/17 09:07 Dose: 200 mls/hr Lactated Ringer's (Lactated Ringer's) 1,000 mls @ 75 mls/hr IV .[id number] [facility] Last Admin: 08/10/17 04:00 Dose: 75 mls/hr Fentanyl Citrate (Fentanyl Citrate/Sodium Chloride 1 Mg/100 Ml) 1,000 mcg in 100 mls @ 5 mls/hr IV .Q20H PRN; Protocol; 50 MCG/HR PRN Reason: TITRATE PER MD ORDER Last Titration: 08/10/17 10:22 Dose: 10 mcg/hr, 1 mls/hr Insulin Human Lispro (Humalog Med) 0 units SC ACHS [facility] PRN Reason: Protocol Last Admin: 08/10/17 12:14 Dose: Not Given Lisinopril (Zestril) 5 mg PO DAILY [facility] Last Admin: 08/06/17 09:14 Dose: 5 mg Methylprednisolone (Solu-Medrol) 60 mg IVP Q12H [facility] Last Admin: 08/10/17 11:25 Dose: 60 mg Multivitamins/Minerals (Therapeutic-M Tab) 1 tab PO 0800 [facility] Last Admin: 08/10/17 08:58 Dose: 1 tab Nystatin (Nystop Topical Powder) 1 gm TOP DAILY [facility] Last Admin: 08/10/17 09:02 Dose: 1 applic Pantoprazole Sodium (Protonix Inj) 40 mg IVP DAILY [facility] Last Admin: 08/10/17 09:02 Dose: 40 mg Potassium Chloride (Potassium Chloride Oral Soln) 20 meq NG BID [facility] Stop: 08/10/17 18:01 Last Admin: 08/10/17 13:36 Dose: 20 meq Sodium Bicarbonate (Sodium Bicarbonate Tab) 1,300 mg PO BID [facility] Last Admin: 08/10/17 09:01 Dose: 1,300 mg Zinc Sulfate (Zinc Sulfate 220 Mg Cap) 220 mg PO DAILY [facility] Last Admin: 08/10/17 09:03 Dose: 220 mg - Labs Labs: 08/10/17 06:30 08/10/17 06:30 PT 13.1 SECONDS (9.4-12.5) H 06/15/17 11:00 INR 1.19 (0.93-1.08) H 06/15/17 11:00 APTT 31.3 Seconds (25.1-36.5) 06/15/17 11:00 - Constitutional Appears: Non-toxic, No Acute Distress, Chronically Ill - Head Exam Head Exam: ATRAUMATIC, NORMOCEPHALIC Additional comments: intubated and ventilated. - Eye Exam Eye Exam: EOMI, PERRL Pupil Exam: NORMAL ACCOMODATION, PERRL - ENT Exam ENT Exam: Mucous Membranes Moist, Normal External Ear Exam, TM's Normal Bilaterally - Neck Exam Neck Exam: Full ROM, Normal Inspection Additional comments: intubated and ventilated. - Respiratory Exam Respiratory Exam: Clear to Ausculation Bilateral, NORMAL BREATHING PATTERN. absent: Rales, Rhonchi, Wheezes - Cardiovascular Exam Cardiovascular Exam: REGULAR RHYTHM, RRR, +S1, +S2 - GI/Abdominal Exam GI & Abdominal Exam: Soft, Normal Bowel Sounds. absent: Distended, Tenderness - Extremities Exam Extremities Exam: Full ROM, Normal Inspection - Neurological Exam Neurological Exam: Alert, Awake, CN II-XII Intact, Oriented x3 - Psychiatric Exam Additional comments: sedated - Skin Skin Exam: Intact, Normal Color Assessment and Plan - Assessment and Plan (Free Text) Assessment: 67 yo female with multiple medical issues with PCN allergy diagnosed as a teenager verified by an [employer]. The patient with leukocytosis. Await cultures especially urine cultures. Diabetes and HTN history? Local wound care. Elevated ESR and C-reactive protein. Completed Vancomycin and Aztreonam for antibiotic coverage. UTI with E. coli sensitive to Azactam. Was on Vancomycin for cellulitis IV. For UTI for 5-7 days treatment... completed. Supportive care. Cellulitis appears improved. No new issues. Social issues currently. Homeless at this time. CT scan of chest done. No infiltrates seen. Afebrile the past 24 hours. Mild congestion noted in CT with small pulmonary effusions. No leukocytosis. Slightly elevated procalcitonin (0.66) which is undefined without stronger evidence for pneumonia. When encouraged, she is able to use the incentive spirometer without issues and ambulate with minimal difficulty. Repeat procalcitonin showing 0.71. UTI with Klebsiella. Sensitive to Cipro. Was on Cipro for 5 day course at 500mg PO BID. Completed the antibiotic course. Stable currently. No new issues. Off antibiotics at this time. Multiple social issues. Chronic cough still with periods of hacking. Complained of Vague mild general pains. Awaiting placement. Yesterday the patient developed respiratory failure and required intubation. Started on Zyvox and Aztreonam IV. Will add Flagyl as well. No leukocytosis. Noted C. Diff with positive antigen but negative toxin. Supportive care. Remains intubated and ventilated. Cultures pending. C. Diff negative to date. No leukocytosis or fever reported. Essentially clear X-ray. Will consider deescalation of antibiotic in the next 24 hours. Thank you for allowing me to participate in the care of the patient, we will follow with you.
[2017-08-10 20:40] LABS: URINE APPEARANCE CLEAR (CLEAR); URINE BILIRUBIN NEGATIVE (NEGATIVE); URINE BLOOD NEGATIVE (NEGATIVE); URINE COLOR YELLOW (YELLOW); URINE GLUCOSE (UA) NEGATIVE (NEGATIVE); URINE LEUKOCYTE ESTERASE NEGATIVE Leu/uL (NEGATIVE); URINE NITRATE NEGATIVE (NEGATIVE); URINE PROTEIN NEGATIVE mg/dL (<30 mg/dL); URINE UROBILINOGEN 0.2 E.U./dL (<1 E.U./dL)
[2017-08-11] MEDS: Albuterol-Ipratrop 3 mg / 0.5 (3 ml) UD IH SCH ×6 (03:03→23:22)
[2017-08-11] MEDS: Propofol 10 mg/ml 1,000 MG/100 ML VIAL IV PRN ×3 (03:49→22:03)
[2017-08-11] MEDS: metroNIDAZOLE IV 500 mg/100 ml 500 MG/100 ML BAG IVPB SCH ×3 (05:17→21:28)
[2017-08-11 05:52] LABS: ARTERIAL BLOOD GAS HCO3 20.7 mmol/L (21-28); ARTERIAL BLOOD GAS HEMOGLOBIN 8.8 g/dL (11.7-17.4); ARTERIAL BLOOD GAS O2 CAPACITY 12.1 mL/dl (16-24); ARTERIAL BLOOD GAS O2 CONTENT 11.6 ML/dl (15-23); ARTERIAL BLOOD GAS O2 SAT 95.5 % (95-98); ARTERIAL BLOOD GAS PCO2 35 mm/Hg (35-45); ARTERIAL BLOOD GAS PH 7.38 (7.35-7.45); ARTERIAL BLOOD GAS TCO2 21.8 mmol.L (22-28)
[2017-08-11 08:30] LABS: GRAN # 5.95 (1.4-6.5); GRAN % 82.8 % (50.0-68.0); HEMOGLOBIN 8.8 g/dL (12.0-16.0); LYMPH # 0.7 (1.2-3.4); LYMPH % 9.7 % (22.0-35.0); MEAN CELL VOLUME 79.8 fl (80.0-105.0); MEAN CORPUSCULAR HEMOGLOBIN 25.7 pg (25.0-35.0); MEAN CORPUSCULAR HGB CONC 32.2 g/dl (31.0-37.0); MEAN PLATELET VOLUME 8.6 fl (7.0-11.0); MONO # 0.5 (0.1-0.6); MONO % 7.5 % (1.0-6.0); RBC 3.42 10^6/uL (3.5-6.1); RED CELL DISTRIBUTION WIDTH 25.1 % (11.5-14.5); WHITE BLOOD COUNT 7.2 10^3/ul (4.5-11.0)
[2017-08-11 08:47] LABS: ALB/GLOB RATIO 0.9 (1.1-1.8); ALBUMIN 2.5 g/dL (3.0-4.8); CALCIUM 6.5 mg/dL (8.4-10.5)
[2017-08-11] MEDS: Multivitamin With Minerals Tab PO SCH (08:51)
[2017-08-11] MEDS: Insulin Lispro (humaLOG) MEDIUM Coverage SC SCH ×4 (08:54→21:55)
[2017-08-11] MEDS: Linezolid 600 mg in D5W 300 ml 600 MG/300 ML BAG IVPB SCH ×2 (10:00→21:28)
[2017-08-11] MEDS: Levothyroxine 100 mcg (0.1 mg) Inj IVP SCH (10:01)
[2017-08-11] MEDS: Nystatin 100,000 Units/gm Topical Pow(15 gm) TOP SCH (10:02)
[2017-08-11] MEDS: Aztreonam 1 Gm in NS 100mL 100 ML IVPB SCH ×2 (10:03→21:27)
--- NOTE | 2017-08-11 10:44 | CT ---
PROCEDURE: CT HEAD WITHOUT CONTRAST. HISTORY: r/o stroke COMPARISON: 06/15/2017 TECHNIQUE: Axial computed tomography images were obtained through the head/brain without intravenous contrast. Radiation dose: Total exam DLP = 851 mGy-cm. This CT exam was performed using one or more of the following dose reduction techniques: Automated exposure control, adjustment of the mA and/or kV according to patient size, and/or use of iterative reconstruction technique. FINDINGS: HEMORRHAGE: No intracranial hemorrhage. BRAIN: No mass effect or edema. There is heavy physiologic calcification of the basal ganglia in the dentate nuclei of the cerebellum. VENTRICLES: Unremarkable. No hydrocephalus. CALVARIUM: Unremarkable. PARANASAL SINUSES: Unremarkable as visualized. No significant inflammatory changes. MASTOID AIR CELLS: Unremarkable as visualized. No inflammatory changes. OTHER FINDINGS: None. IMPRESSION: No acute findings
--- NOTE | 2017-08-11 11:15 | CP.PCM.PN ---
Subjective - Date & Time of Evaluation Date of Evaluation: 08/11/17 Time of Evaluation: 07:30 - Subjective Subjective: Pt seen and examined, remains intubated, failed CPAP trial. Objective - Vital Signs/Intake and Output Vital Signs (last 24 hours): Temp Pulse Resp BP Pulse Ox 99.0 F 78 28 H 117/57 L 98 08/11/17 07:10 08/11/17 07:10 08/11/17 08:00 08/11/17 07:00 08/11/17 08:00 Intake and Output: 08/11/17 08/11/17 06:59 18:59 Intake Total 2020 Output Total 850 Balance 1170 - Medications Medications: Current Medications Albuterol/Ipratropium (Duoneb 3 Mg/0.5 Mg (3 Ml) Ud) 3 ml IH [id number] PRN PRN Reason: Shortness of Breath Last Admin: 08/06/17 13:47 Dose: 3 ml Albuterol/Ipratropium (Duoneb 3 Mg/0.5 Mg (3 Ml) Ud) 3 ml IH Q4H [facility] Last Admin: 08/11/17 11:08 Dose: 3 ml Calcium Acetate (Phoslo) 667 mg PO TID [facility] Last Admin: 08/11/17 10:02 Dose: 667 mg Ferrous Sulfate (Feosol) 324 mg PO TID [facility] Last Admin: 08/11/17 10:02 Dose: 324 mg Guaifenesin (Robitussin) 200 mg PO Q4H PRN PRN Reason: Cough and congestion Last Admin: 08/05/17 22:33 Dose: 200 mg Propofol (Diprivan) 1,000 mg in 100 mls @ 2.885 mls/hr IV .Q24H PRN; Protocol; 5 MCG/KG/MIN PRN Reason: TITRATE PER MD ORDER Last Admin: 08/11/17 03:49 Dose: 40 mcg/kg/min, 23.079 mls/hr Aztreonam (Azactam 1 Gm) 100 mls @ 100 mls/hr IVPB Q12 [facility] PRN Reason: Protocol Last Admin: 08/11/17 10:03 Dose: 100 mls/hr Metronidazole (Flagyl) 500 mg in 100 mls @ 100 mls/hr IVPB Q8 [facility] PRN Reason: Protocol Last Admin: 08/11/17 05:17 Dose: 100 mls/hr Linezolid (Zyvox 600mg/300ml D5w) 600 mg in 300 mls @ 200 mls/hr IVPB Q12 [facility] PRN Reason: Protocol Last Admin: 08/11/17 10:00 Dose: 200 mls/hr Lactated Ringer's (Lactated Ringer's) 1,000 mls @ 75 mls/hr IV .[id number] [facility] Last Admin: 08/10/17 22:34 Dose: 75 mls/hr Fentanyl Citrate (Fentanyl Citrate/Sodium Chloride 1 Mg/100 Ml) 1,000 mcg in 100 mls @ 5 mls/hr IV .Q20H PRN; Protocol; 50 MCG/HR PRN Reason: TITRATE PER MD ORDER Last Titration: 08/10/17 19:59 Dose: 20 mcg/hr, 2 mls/hr Insulin Human Lispro (Humalog Med) 0 units SC ACHS [facility] PRN Reason: Protocol Last Admin: 08/11/17 08:54 Dose: Not Given Levothyroxine Sodium (Synthroid) 50 mcg IVP DAILY [facility] Last Admin: 08/11/17 10:01 Dose: 50 mcg Lisinopril (Zestril) 5 mg PO DAILY [facility] Last Admin: 08/06/17 09:14 Dose: 5 mg Methylprednisolone (Solu-Medrol) 40 mg IVP Q12H [facility] Last Admin: 08/11/17 10:02 Dose: 40 mg Multivitamins/Minerals (Therapeutic-M Tab) 1 tab PO 0800 [facility] Last Admin: 08/11/17 08:51 Dose: 1 tab Nystatin (Nystop Topical Powder) 1 gm TOP DAILY [facility] Last Admin: 08/11/17 10:02 Dose: 1 applic Pantoprazole Sodium (Protonix Inj) 40 mg IVP DAILY [facility] Last Admin: 08/11/17 10:02 Dose: 40 mg Sodium Bicarbonate (Sodium Bicarbonate Tab) 1,300 mg PO BID [facility] Last Admin: 08/11/17 10:02 Dose: 1,300 mg Zinc Sulfate (Zinc Sulfate 220 Mg Cap) 220 mg PO DAILY [facility] Last Admin: 08/11/17 10:01 Dose: 220 mg - Labs Labs: 08/11/17 08:19 08/11/17 08:19 PT 13.1 SECONDS (9.4-12.5) H 06/15/17 11:00 INR 1.19 (0.93-1.08) H 06/15/17 11:00 APTT 31.3 Seconds (25.1-36.5) 06/15/17 11:00 - Constitutional Appears: No Acute Distress - Eye Exam Eye Exam: Normal appearance - ENT Exam ENT Exam: Mucous Membranes Moist - Respiratory Exam Respiratory Exam: Clear to Ausculation Bilateral, NORMAL BREATHING PATTERN - Cardiovascular Exam Cardiovascular Exam: REGULAR RHYTHM, +S1, +S2 - GI/Abdominal Exam GI & Abdominal Exam: Soft, Normal Bowel Sounds - Extremities Exam Extremities Exam: Normal Inspection - Neurological Exam Neurological Exam: Awake Assessment and Plan - Assessment and Plan (Free Text) Assessment: 67yo female a/w hypercapnic resp failure Hypercapnic resp Failure, intubated Oliguria/renal Failure, stable, good UOP Obesity COPD - currently afebrile, HD stable,OFF pressors - UOP adequate, 900cc/24hr, renal following, Cr stable - daily CPAP trials off sedation 05/06/40% failed, will need trach - CT head negative Recommend: - cont with ventilatory support, low tidal vol ventilation, maintain Pplateau<30 - daily sedation vacaiton, CPAP trial failed - follow up cultures, cont with Antibiotics - cont with Solumedrol IV, taper - monitor urine output, BUN/Cr - Hold BILLY-I - BP control - cont with IVF hydration, LR 75cc/hr - follow up renal, no HD for now - Feeds enteric - FS control - GI ppx - DVT ppx - Monitor in MICU critical care time 35 minutes
--- NOTE | 2017-08-11 11:35 | CP.PCM.PN ---
<Shan Zepeda - Last Filed: 08/11/17 14:41> Subjective - Date & Time of Evaluation Date of Evaluation: 08/11/17 Time of Evaluation: 06:00 - Subjective Subjective: patient seen and evaluated bedside in the ICU. patient on ventilator, intubated. Unable to obtain a complete ROS. No acute events overnight. Objective - Vital Signs/Intake and Output Vital Signs (last 24 hours): Temp Pulse Resp BP Pulse Ox 99.0 F 78 28 H 117/57 L 98 08/11/17 07:10 08/11/17 07:10 08/11/17 08:00 08/11/17 07:00 08/11/17 08:00 Intake and Output: 08/11/17 08/11/17 06:59 18:59 Intake Total 2020 Output Total 850 Balance 1170 - Medications Medications: Current Medications Albuterol/Ipratropium (Duoneb 3 Mg/0.5 Mg (3 Ml) Ud) 3 ml IH [id number] PRN PRN Reason: Shortness of Breath Last Admin: 08/06/17 13:47 Dose: 3 ml Albuterol/Ipratropium (Duoneb 3 Mg/0.5 Mg (3 Ml) Ud) 3 ml IH Q4H [facility] Last Admin: 08/11/17 11:08 Dose: 3 ml Calcium Acetate (Phoslo) 667 mg PO TID [facility] Last Admin: 08/11/17 10:02 Dose: 667 mg Ferrous Sulfate (Feosol) 324 mg PO TID [facility] Last Admin: 08/11/17 10:02 Dose: 324 mg Guaifenesin (Robitussin) 200 mg PO Q4H PRN PRN Reason: Cough and congestion Last Admin: 08/05/17 22:33 Dose: 200 mg Propofol (Diprivan) 1,000 mg in 100 mls @ 2.885 mls/hr IV .Q24H PRN; Protocol; 5 MCG/KG/MIN PRN Reason: TITRATE PER MD ORDER Last Admin: 08/11/17 03:49 Dose: 40 mcg/kg/min, 23.079 mls/hr Aztreonam (Azactam 1 Gm) 100 mls @ 100 mls/hr IVPB Q12 [facility] PRN Reason: Protocol Last Admin: 08/11/17 10:03 Dose: 100 mls/hr Metronidazole (Flagyl) 500 mg in 100 mls @ 100 mls/hr IVPB Q8 [facility] PRN Reason: Protocol Last Admin: 08/11/17 05:17 Dose: 100 mls/hr Linezolid (Zyvox 600mg/300ml D5w) 600 mg in 300 mls @ 200 mls/hr IVPB Q12 [facility] PRN Reason: Protocol Last Admin: 08/11/17 10:00 Dose: 200 mls/hr Lactated Ringer's (Lactated Ringer's) 1,000 mls @ 75 mls/hr IV .[id number] [facility] Last Admin: 08/10/17 22:34 Dose: 75 mls/hr Fentanyl Citrate (Fentanyl Citrate/Sodium Chloride 1 Mg/100 Ml) 1,000 mcg in 100 mls @ 5 mls/hr IV .Q20H PRN; Protocol; 50 MCG/HR PRN Reason: TITRATE PER MD ORDER Last Titration: 08/10/17 19:59 Dose: 20 mcg/hr, 2 mls/hr Insulin Human Lispro (Humalog Med) 0 units SC ACHS [facility] PRN Reason: Protocol Last Admin: 08/11/17 08:54 Dose: Not Given Levothyroxine Sodium (Synthroid) 50 mcg IVP DAILY [facility] Last Admin: 08/11/17 10:01 Dose: 50 mcg Lisinopril (Zestril) 5 mg PO DAILY [facility] Last Admin: 08/06/17 09:14 Dose: 5 mg Methylprednisolone (Solu-Medrol) 40 mg IVP Q12H [facility] Last Admin: 08/11/17 10:02 Dose: 40 mg Multivitamins/Minerals (Therapeutic-M Tab) 1 tab PO 0800 [facility] Last Admin: 08/11/17 08:51 Dose: 1 tab Nystatin (Nystop Topical Powder) 1 gm TOP DAILY [facility] Last Admin: 08/11/17 10:02 Dose: 1 applic Pantoprazole Sodium (Protonix Inj) 40 mg IVP DAILY [facility] Last Admin: 08/11/17 10:02 Dose: 40 mg Sodium Bicarbonate (Sodium Bicarbonate Tab) 1,300 mg PO BID [facility] Last Admin: 08/11/17 10:02 Dose: 1,300 mg Zinc Sulfate (Zinc Sulfate 220 Mg Cap) 220 mg PO DAILY [facility] Last Admin: 08/11/17 10:01 Dose: 220 mg - Labs Labs: 08/11/17 08:19 08/11/17 08:19 PT 13.1 SECONDS (9.4-12.5) H 06/15/17 11:00 INR 1.19 (0.93-1.08) H 06/15/17 11:00 APTT 31.3 Seconds (25.1-36.5) 06/15/17 11:00 - Constitutional Appears: No Acute Distress - Head Exam Head Exam: ATRAUMATIC, NORMAL INSPECTION, NORMOCEPHALIC - Respiratory Exam Respiratory Exam: Clear to Ausculation Bilateral, NORMAL BREATHING PATTERN - Cardiovascular Exam Cardiovascular Exam: REGULAR RHYTHM, +S1, +S2 - GI/Abdominal Exam GI & Abdominal Exam: Distended, Soft - Neurological Exam Additional comments: Sedated - Skin Skin Exam: Normal Color Assessment and Plan - Assessment and Plan (Free Text) Assessment: Patient is a 67 year old female with past medical history of asthma, arthritis, anemia, and obesity who was admitted for right lower extremity cellulitis and UTI. Patient was found to have cultures positive for Proteus mirabilis and beta hemolytic strep, s/p completed IV course of Vancomycin and Azactam. Patient subsequently found to have Klebsiella UTI s/p adequate treatment with Ciprofloxacin. Patient's course was also complicated by fecal impaction, currently resolved. Pt also found to have intermittent dyspnea, workup revealing a diagnosis of rheumatoid arthritis. Patient is awaiting placement in [facility], pending approval for Medicaid. Patient experienced respiratory failure and was intubated/ transferred to the ICU. Plan: Hypercapnic Respiratory Failure -Improving, pC02: 35 pO2: 64 ph: 7.38 - patient is intubated and ventilated - failed CPAP trial - possible trach will speak to family - CT head pending - CXR reviewed and appreciated- showed no distinctive infiltrate - ABG reviewed and appreciated- pH normalizing, continue to monitor respiratory status - c/w duonebs and solumedrol and pulmicort (solumedrol decreased to 40 BID today ) - c/w zyvox and aztreonam- ID consulted appreciate recommendations HTN - BP reviewed, trended, and appreciated - hold zestril due to CATE Abdominal Distension - likely 2/2 Constipation/fecal impaction - CT Abdomen Pelvis with PO and IV Contrast (07/18): Interstitial and airspace disease in the lung bases; mild cardiomegaly and atherosclerotic disease; fatty liver; gallstones; possible pyelonephritis; mild ileus, no obstruction; constipation with fecal impaction - abdominal flat plate-No acute changes or findings Normocytic anemia - Hemoglobins reviewed, trended, and appreciated- decrease noted, will transfuse if Hbg < 7.0 - Monitor daily Diarrhea - rectal tube removed - Stool C diff- positive antigen, negative toxin - c/w flagyl- ID consulted appreciate recommendations Oliguric CATE - creatinine and bun reviewed, trended, and appreciated BUN: 44 Cr:3.3 - Nephrology consulted- recommendation appreciated -maintain hemodynamics stable. -Monitor Input/Output, daily weights and renal function with basic metabolic panel -supplement electrolytes as needed -check Anti-GBM, anca. has normal complements - c/w LR @75 - urine electrolytes and urine creatinine within normal limits - continue to hold BILLY-lisinopril and no arb - continue to monitor via daily CMP -Urine output 350 today -Calcium 6.5, repleted, monitor Hypothermia-resolved -Temp 97.4 -TSH 2.33 T4: 3.4 -started on synthroid 50 IV daily -Blood and urine cultures pending Hypokalemia-resolved -K 4.0 -repleted -continue to monitor Prophylaxis: - GI ppx Protonix - DVT ppx: Heparin <Max Liriano - Last Filed: 08/12/17 15:55> Objective - Vital Signs/Intake and Output Vital Signs (last 24 hours): Temp Pulse Resp BP Pulse Ox 97.3 F L 55 L 28 H 105/58 L 99 08/12/17 08:00 08/12/17 08:54 08/12/17 07:51 08/12/17 07:00 08/12/17 07:51 Intake and Output: 08/12/17 08/12/17 06:59 18:59 Intake Total 2120 60 Output Total 1300 Balance 820 60 - Medications Medications: Current Medications Albuterol/Ipratropium (Duoneb 3 Mg/0.5 Mg (3 Ml) Ud) 3 ml IH Q6 [facility] Last Admin: 08/12/17 13:40 Dose: 3 ml Albuterol/Ipratropium (Duoneb 3 Mg/0.5 Mg (3 Ml) Ud) 3 ml IH Q6 PRN PRN Reason: SOB Calcium Acetate (Phoslo) 667 mg PO TID [facility] Last Admin: 08/12/17 09:28 Dose: 667 mg Ergocalciferol (Drisdol 50,000 Intl Units Cap) 1 cap PO Q7D [facility] Ferrous Sulfate (Feosol) 324 mg PO TID [facility] Last Admin: 08/12/17 09:27 Dose: 324 mg Guaifenesin (Robitussin) 200 mg PO Q4H PRN PRN Reason: Cough and congestion Last Admin: 08/05/17 22:33 Dose: 200 mg Propofol (Diprivan) 1,000 mg in 100 mls @ 2.885 mls/hr IV .Q24H PRN; Protocol; 5 MCG/KG/MIN PRN Reason: TITRATE PER MD ORDER Last Titration: 08/12/17 09:23 Dose: 0 mcg/kg/min, 0 mls/hr Aztreonam (Azactam 1 Gm) 100 mls @ 100 mls/hr IVPB Q12 [facility] PRN Reason: Protocol Last Admin: 08/12/17 09:19 Dose: 100 mls/hr Metronidazole (Flagyl) 500 mg in 100 mls @ 100 mls/hr IVPB Q8 [facility] PRN Reason: Protocol Last Admin: 08/12/17 05:23 Dose: 100 mls/hr Linezolid (Zyvox 600mg/300ml D5w) 600 mg in 300 mls @ 200 mls/hr IVPB Q12 [facility] PRN Reason: Protocol Last Admin: 08/12/17 11:02 Dose: 200 mls/hr Lactated Ringer's (Lactated Ringer's) 1,000 mls @ 100 mls/hr IV .Q10H [facility] Insulin Human Lispro (Humalog Med) 0 units SC ACHS [facility] PRN Reason: Protocol Last Admin: 08/12/17 09:18 Dose: Not Given Levothyroxine Sodium (Synthroid) 50 mcg IVP DAILY [facility] Last Admin: 08/12/17 09:29 Dose: 50 mcg Lisinopril (Zestril) 5 mg PO DAILY [facility] Last Admin: 08/06/17 09:14 Dose: 5 mg Methylprednisolone (Solu-Medrol) 40 mg IVP Q12 [facility] Last Admin: 08/12/17 09:29 Dose: 40 mg Multivitamins/Minerals (Therapeutic-M Tab) 1 tab PO 0800 [facility] Last Admin: 08/12/17 09:28 Dose: 1 tab Nystatin (Nystop Topical Powder) 1 gm TOP DAILY [facility] Last Admin: 08/12/17 09:30 Dose: 1 applic Pantoprazole Sodium (Protonix Inj) 40 mg IVP DAILY [facility] Last Admin: 08/12/17 09:29 Dose: 40 mg Sodium Bicarbonate (Sodium Bicarbonate Tab) 1,300 mg PO BID [facility] Last Admin: 08/12/17 09:28 Dose: 1,300 mg Zinc Sulfate (Zinc Sulfate 220 Mg Cap) 220 mg PO DAILY [facility] Last Admin: 08/12/17 09:27 Dose: 220 mg - Labs Labs: 08/12/17 05:50 08/12/17 05:50 PT 13.1 SECONDS (9.4-12.5) H 06/15/17 11:00 INR 1.19 (0.93-1.08) H 06/15/17 11:00 APTT 31.3 Seconds (25.1-36.5) 06/15/17 11:00 Attending/Attestation - Attestation I have personally seen and examined this patient.: Yes I have fully participated in the care of the patient.: Yes I have reviewed all pertinent clinical information, including history, physical exam and plan: Yes Notes (Text): 08/12/17 15:53 Patient was seen and examined with medical review specialist. 67 year old female with Respiratory failure due to hypercapnic Resp Failure due to COPD exacerbation and obesity Hypoventilation syndrome.Hypercapnia is better but mental status is poor, patient is on Ventilatory support,ICU team is following.Sedation has been tapered down. Hypothermia is improved, blood cultures are negative for any growth, On IV antibiotics as per ID. Urine out put has improved. creatinin is stable. Case was discussed with Nephrology Prognosis is guarded.
--- NOTE | 2017-08-11 15:51 | CP.PCM.PN ---
Subjective - Date & Time of Evaluation Date of Evaluation: 08/11/17 Time of Evaluation: 15:50 - Subjective Subjective: Follow up Nephrology Consultation (covering for Dr Agustín Bai): Assessment: critical non-oliguric Acute Kidney Injury (N17.9) possibly hemodynamic, GI fluid loss leading to ATN. will also r/o pulmo-renal syndrome morbid obesity, arthritis, anemia, asthma, RAS and RA factor+ recent cellulitis, UTI, fecal impaction acute hypercapnic respi failure hypocalcemia, hyperphosphatemia, acidosis, hypokalemia Plan No acute need for renal replacement therapy at this time UOP improving. serum cr platueing maintain hemodynamics stable. No ACEI/ARB due to CATE Monitor Input/Output, daily weights and renal function with basic metabolic panel continue with IVF as ordered supplement electrolytes as needed started phos binders and bicarb check Vit D check Anti-GBM, anca (neg). has normal complements Dose meds/antibiotics for reduced GFR. Avoid fleets enema/magnesium based laxatives. Avoid nephrotoxins/NSAIDs/ iodinated contrast (unless needed emergently) Glycemic control Further work up/management as per primary team Thanks for allowing me to participate in care of your patient. Will follow patient with you. Please call if any Qs. d/w team Dr Abel Pierson Office: [phone] Chief Complaint; unable to obtain reason for consult: kidney failure source of info: EMR HPI: Pt is a 67 F with hx of morbid obesity, arthritis, anemia, asthma, RAS and RA factor+ who had prolonged hospitalization for cellulitis which was treated with multiple antibiotics and also had UTI treated with antibiotics, constipation with fecal impaction, was awaiting to go to rehab but had hypercapnic respi failure 08/06/17 which required intubation. pt also having diarrhoea now. renal consulted since serum creatinine 1.6 on 08/06 and 2.6 . her serum creatinine was normal prior to that No recent iodinated contrast exposure. intermittent episodes of low BP (90/50) ROS: pt intubated Physical Examination: General Appearance: orally intubated. no distress. obese Vitals reviewed and noted as below Head; Atraumatic, normocephalic ENT: orally intubated EYES: Pupils are equal, round and reactive to light accommodation. Eye muscles and extraocular movement intact. Sclera is anicteric. Neck; supple no lymphadenopathy, no thyromegaly or bruit Lungs: Normal respiratory rate/effort. Breath sounds bilateral rales+ Heart: Normal rate. s1s2 normal. No rub or gallop. Extremities: no edema. No varicose veins Neurological: Patient is sedated Skin: Warm and dry. Normal turgor. No rash. Palpitation: Normal elasticity for age. dressing over legs + Abdomen: Abdomen is soft. Bowel sounds +. There is no abdominal tenderness, no guarding/rigidity no organomegaly. has rectal tube for diarrhoea Psych: unable MSK: no joint tenderness or swelling. Digits and nails normal, no deformity : kidney or bladder not palpable. has khanna + Labs/imaging reviewed. Past medical history, past surgical history, family history, social history, allergy reviewed and noted as below Family hx: no hx of CKD. Rest non-contributory work up: renal sono: neg Urine Na 88 FeNa2.1% urine eos neg normal complements Objective - Vital Signs/Intake and Output Vital Signs (last 24 hours): Temp Pulse Resp BP Pulse Ox 98.6 F 62 28 H 117/57 L 98 08/11/17 14:00 08/11/17 14:00 08/11/17 08:00 08/11/17 07:00 08/11/17 08:00 Intake and Output: 08/11/17 08/11/17 06:59 18:59 Intake Total 2020 Output Total 850 Balance 1170 - Medications Medications: Current Medications Albuterol/Ipratropium (Duoneb 3 Mg/0.5 Mg (3 Ml) Ud) 3 ml IH [id number] PRN PRN Reason: Shortness of Breath Last Admin: 08/06/17 13:47 Dose: 3 ml Albuterol/Ipratropium (Duoneb 3 Mg/0.5 Mg (3 Ml) Ud) 3 ml IH Q4H [facility] Last Admin: 08/11/17 11:08 Dose: 3 ml Calcium Acetate (Phoslo) 667 mg PO TID [facility] Last Admin: 08/11/17 14:39 Dose: 667 mg Ferrous Sulfate (Feosol) 324 mg PO TID [facility] Last Admin: 08/11/17 14:39 Dose: 324 mg Guaifenesin (Robitussin) 200 mg PO Q4H PRN PRN Reason: Cough and congestion Last Admin: 08/05/17 22:33 Dose: 200 mg Propofol (Diprivan) 1,000 mg in 100 mls @ 2.885 mls/hr IV .Q24H PRN; Protocol; 5 MCG/KG/MIN PRN Reason: TITRATE PER MD ORDER Last Admin: 08/11/17 03:49 Dose: 40 mcg/kg/min, 23.079 mls/hr Aztreonam (Azactam 1 Gm) 100 mls @ 100 mls/hr IVPB Q12 [facility] PRN Reason: Protocol Last Admin: 08/11/17 10:03 Dose: 100 mls/hr Metronidazole (Flagyl) 500 mg in 100 mls @ 100 mls/hr IVPB Q8 [facility] PRN Reason: Protocol Last Admin: 08/11/17 14:39 Dose: 100 mls/hr Linezolid (Zyvox 600mg/300ml D5w) 600 mg in 300 mls @ 200 mls/hr IVPB Q12 [facility] PRN Reason: Protocol Last Admin: 08/11/17 10:00 Dose: 200 mls/hr Lactated Ringer's (Lactated Ringer's) 1,000 mls @ 75 mls/hr IV .[id number] [facility] Last Admin: 08/10/17 22:34 Dose: 75 mls/hr Fentanyl Citrate (Fentanyl Citrate/Sodium Chloride 1 Mg/100 Ml) 1,000 mcg in 100 mls @ 5 mls/hr IV .Q20H PRN; Protocol; 50 MCG/HR PRN Reason: TITRATE PER MD ORDER Last Titration: 08/10/17 19:59 Dose: 20 mcg/hr, 2 mls/hr Insulin Human Lispro (Humalog Med) 0 units SC ACHS [facility] PRN Reason: Protocol Last Admin: 08/11/17 12:10 Dose: Not Given Levothyroxine Sodium (Synthroid) 50 mcg IVP DAILY [facility] Last Admin: 08/11/17 10:01 Dose: 50 mcg Lisinopril (Zestril) 5 mg PO DAILY [facility] Last Admin: 08/06/17 09:14 Dose: 5 mg Methylprednisolone (Solu-Medrol) 40 mg IVP Q12H [facility] Last Admin: 08/11/17 10:02 Dose: 40 mg Multivitamins/Minerals (Therapeutic-M Tab) 1 tab PO 0800 [facility] Last Admin: 08/11/17 08:51 Dose: 1 tab Nystatin (Nystop Topical Powder) 1 gm TOP DAILY [facility] Last Admin: 08/11/17 10:02 Dose: 1 applic Pantoprazole Sodium (Protonix Inj) 40 mg IVP DAILY [facility] Last Admin: 08/11/17 10:02 Dose: 40 mg Sodium Bicarbonate (Sodium Bicarbonate Tab) 1,300 mg PO BID [facility] Last Admin: 08/11/17 10:02 Dose: 1,300 mg Zinc Sulfate (Zinc Sulfate 220 Mg Cap) 220 mg PO DAILY [facility] Last Admin: 08/11/17 10:01 Dose: 220 mg - Labs Labs: 08/11/17 08:19 08/11/17 08:19 PT 13.1 SECONDS (9.4-12.5) H 06/15/17 11:00 INR 1.19 (0.93-1.08) H 06/15/17 11:00 APTT 31.3 Seconds (25.1-36.5) 06/15/17 11:00
[2017-08-11] MEDS ORDERED: Albuterol-Ipratrop 3 mg / 0.5 (3 ml) UD IH PRN (16:08)
--- NOTE | 2017-08-11 16:31 | CP.PCM.PN ---
Subjective - Date & Time of Evaluation Date of Evaluation: 08/11/17 Time of Evaluation: 15:30 - Subjective Subjective: Infectious Disease Follow Up: August 11, 2017 67 yo female presenting with 3 weeks of RLE ulceration, swelling and leaking from the wound as well as multiple falls in the past 3 weeks. The patient has an extensive medical history of asthma, arthritis, vitamin C deficiency, and possible thyroid disease. Draining RLE ulceration... cellulitis improved/resolved. Multiple chronic medical issues. Still with persistent dry cough. Otherwise stable. Mild erythema and excoriation of the folds in the abdomen and under the breasts. UTI with Klebsiella earlier in hospitalization but had treatment with Cipro that is now completed. Social Issues. The patient had respiratory distress with no improvement from BiPAP. Patient required intubation and ventilation. Transferred to MICU for further care. The patient was started on Zyvox and Aztreonam IV. Patient had a positive C. Diff antigen but negative toxin. Remains intubated today. Appears stable. Chest X-ray not showing new findings. No leukocytosis. Cultures pending... so far negative. Patient unable to be weaned from ventilator. Supportive care. No fevers or leukocytosis. Procalcitonin equivocal. The patient had hypothermia ranging from 93.0 F starting from yesterday. Temperature did rise back up to 99.0 F. Rechecking procalcitonin. Difficulty from weaning from the ventilator. Objective - Vital Signs/Intake and Output Vital Signs (last 24 hours): Temp Pulse Resp BP Pulse Ox 98.6 F 62 28 H 117/57 L 98 08/11/17 14:00 08/11/17 14:00 08/11/17 08:00 08/11/17 07:00 08/11/17 08:00 Intake and Output: 08/11/17 08/11/17 06:59 18:59 Intake Total 2020 Output Total 850 Balance 1170 - Medications Medications: Current Medications Albuterol/Ipratropium (Duoneb 3 Mg/0.5 Mg (3 Ml) Ud) 3 ml IH Q4 [facility] Last Admin: 08/11/17 16:10 Dose: 3 ml Albuterol/Ipratropium (Duoneb 3 Mg/0.5 Mg (3 Ml) Ud) 3 ml IH Q4 PRN PRN Reason: SOB Calcium Acetate (Phoslo) 667 mg PO TID [facility] Last Admin: 08/11/17 14:39 Dose: 667 mg Ferrous Sulfate (Feosol) 324 mg PO TID [facility] Last Admin: 08/11/17 14:39 Dose: 324 mg Guaifenesin (Robitussin) 200 mg PO Q4H PRN PRN Reason: Cough and congestion Last Admin: 08/05/17 22:33 Dose: 200 mg Propofol (Diprivan) 1,000 mg in 100 mls @ 2.885 mls/hr IV .Q24H PRN; Protocol; 5 MCG/KG/MIN PRN Reason: TITRATE PER MD ORDER Last Admin: 08/11/17 03:49 Dose: 40 mcg/kg/min, 23.079 mls/hr Aztreonam (Azactam 1 Gm) 100 mls @ 100 mls/hr IVPB Q12 [facility] PRN Reason: Protocol Last Admin: 08/11/17 10:03 Dose: 100 mls/hr Metronidazole (Flagyl) 500 mg in 100 mls @ 100 mls/hr IVPB Q8 [facility] PRN Reason: Protocol Last Admin: 08/11/17 14:39 Dose: 100 mls/hr Linezolid (Zyvox 600mg/300ml D5w) 600 mg in 300 mls @ 200 mls/hr IVPB Q12 [facility] PRN Reason: Protocol Last Admin: 08/11/17 10:00 Dose: 200 mls/hr Lactated Ringer's (Lactated Ringer's) 1,000 mls @ 75 mls/hr IV .[id number] [facility] Last Admin: 08/10/17 22:34 Dose: 75 mls/hr Fentanyl Citrate (Fentanyl Citrate/Sodium Chloride 1 Mg/100 Ml) 1,000 mcg in 100 mls @ 5 mls/hr IV .Q20H PRN; Protocol; 50 MCG/HR PRN Reason: TITRATE PER MD ORDER Last Titration: 08/10/17 19:59 Dose: 20 mcg/hr, 2 mls/hr Insulin Human Lispro (Humalog Med) 0 units SC ACHS [facility] PRN Reason: Protocol Last Admin: 08/11/17 12:10 Dose: Not Given Levothyroxine Sodium (Synthroid) 50 mcg IVP DAILY [facility] Last Admin: 08/11/17 10:01 Dose: 50 mcg Lisinopril (Zestril) 5 mg PO DAILY [facility] Last Admin: 08/06/17 09:14 Dose: 5 mg Methylprednisolone (Solu-Medrol) 40 mg IVP Q12H [facility] Last Admin: 08/11/17 10:02 Dose: 40 mg Multivitamins/Minerals (Therapeutic-M Tab) 1 tab PO 0800 [facility] Last Admin: 08/11/17 08:51 Dose: 1 tab Nystatin (Nystop Topical Powder) 1 gm TOP DAILY [facility] Last Admin: 08/11/17 10:02 Dose: 1 applic Pantoprazole Sodium (Protonix Inj) 40 mg IVP DAILY [facility] Last Admin: 08/11/17 10:02 Dose: 40 mg Sodium Bicarbonate (Sodium Bicarbonate Tab) 1,300 mg PO BID [facility] Last Admin: 08/11/17 10:02 Dose: 1,300 mg Zinc Sulfate (Zinc Sulfate 220 Mg Cap) 220 mg PO DAILY [facility] Last Admin: 08/11/17 10:01 Dose: 220 mg - Labs Labs: 08/11/17 08:19 08/11/17 08:19 PT 13.1 SECONDS (9.4-12.5) H 06/15/17 11:00 INR 1.19 (0.93-1.08) H 06/15/17 11:00 APTT 31.3 Seconds (25.1-36.5) 06/15/17 11:00 - Constitutional Appears: Non-toxic, No Acute Distress, Chronically Ill - Head Exam Additional comments: intubated and ventilated - Eye Exam Eye Exam: EOMI, PERRL Pupil Exam: NORMAL ACCOMODATION, PERRL - ENT Exam ENT Exam: Mucous Membranes Moist, Normal External Ear Exam, TM's Normal Bilaterally - Neck Exam Neck Exam: Full ROM, Normal Inspection Additional comments: intubated and ventilated. - Respiratory Exam Respiratory Exam: Clear to Ausculation Bilateral, NORMAL BREATHING PATTERN. absent: Rales, Rhonchi, Wheezes - Cardiovascular Exam Cardiovascular Exam: REGULAR RHYTHM, RRR, +S1, +S2 - GI/Abdominal Exam GI & Abdominal Exam: Soft, Normal Bowel Sounds. absent: Distended, Tenderness - Extremities Exam Extremities Exam: Full ROM, Normal Inspection - Neurological Exam Neurological Exam: Alert, Awake, CN II-XII Intact, Oriented x3 - Psychiatric Exam Additional comments: sedated - Skin Skin Exam: Intact, Normal Color Assessment and Plan - Assessment and Plan (Free Text) Assessment: 67 yo female with multiple medical issues with PCN allergy diagnosed as a teenager verified by an [employer]. The patient with leukocytosis. Await cultures especially urine cultures. Diabetes and HTN history? Local wound care. Elevated ESR and C-reactive protein. Completed Vancomycin and Aztreonam for antibiotic coverage. UTI with E. coli sensitive to Azactam. Was on Vancomycin for cellulitis IV. For UTI for 5-7 days treatment... completed. Supportive care. Cellulitis appears improved. No new issues. Social issues currently. Homeless at this time. CT scan of chest done. No infiltrates seen. Afebrile the past 24 hours. Mild congestion noted in CT with small pulmonary effusions. No leukocytosis. Slightly elevated procalcitonin (0.66) which is undefined without stronger evidence for pneumonia. When encouraged, she is able to use the incentive spirometer without issues and ambulate with minimal difficulty. Repeat procalcitonin showing 0.71. UTI with Klebsiella. Sensitive to Cipro. Was on Cipro for 5 day course at 500mg PO BID. Completed the antibiotic course. Stable currently. No new issues. Off antibiotics at this time. Multiple social issues. Chronic cough still with periods of hacking. Complained of Vague mild general pains. Awaiting placement. Yesterday the patient developed respiratory failure and required intubation. Started on Zyvox and Aztreonam IV. Will add Flagyl as well. No leukocytosis. Noted C. Diff with positive antigen but negative toxin. Supportive care. Remains intubated and ventilated. Cultures pending. C. Diff negative to date. No leukocytosis or fever reported. Essentially clear X-ray. Hypothermia episodes most of yesterday to this morning. Thank you for allowing me to participate in the care of the patient, we will follow with you.
[2017-08-11] MEDS: Lactated Ringer's 1,000 ML IV SCH (22:04)
[2017-08-12] MEDS: Propofol 10 mg/ml 1,000 MG/100 ML VIAL IV PRN ×2 (02:30→06:03)
[2017-08-12] MEDS ORDERED: MethylPREDNISolone 40 mg Vial IVP SCH (02:44)
[2017-08-12] MEDS: Albuterol-Ipratrop 3 mg / 0.5 (3 ml) UD IH SCH ×4 (03:01→20:30)
[2017-08-12 05:14] LABS: ARTERIAL BLOOD GAS HCO3 20.2 mmol/L (21-28); ARTERIAL BLOOD GAS HEMOGLOBIN 8.7 g/dL (11.7-17.4); ARTERIAL BLOOD GAS O2 CAPACITY 12.3 mL/dl (16-24); ARTERIAL BLOOD GAS O2 CONTENT 12.3 ML/dl (15-23); ARTERIAL BLOOD GAS O2 SAT 100.2 % (95-98); ARTERIAL BLOOD GAS PCO2 29 mm/Hg (35-45); ARTERIAL BLOOD GAS PH 7.45 (7.35-7.45); ARTERIAL BLOOD GAS TCO2 21.1 mmol.L (22-28)
[2017-08-12] MEDS: metroNIDAZOLE IV 500 mg/100 ml 500 MG/100 ML BAG IVPB SCH ×3 (05:23→21:06)
[2017-08-12 07:14] LABS: EOS % 0.1 % (1.5-5.0); GRAN # 5.07 (1.4-6.5); GRAN % 75.7 % (50.0-68.0); HEMOGLOBIN 8.7 g/dL (12.0-16.0); LYMPH # 1.1 (1.2-3.4); LYMPH % 15.9 % (22.0-35.0); MEAN CELL VOLUME 78.8 fl (80.0-105.0); MEAN PLATELET VOLUME 8.9 fl (7.0-11.0); MONO # 0.6 (0.1-0.6); MONO % 8.3 % (1.0-6.0); RBC 3.35 10^6/uL (3.5-6.1); RED CELL DISTRIBUTION WIDTH 25.1 % (11.5-14.5); WHITE BLOOD COUNT 6.7 10^3/ul (4.5-11.0)
[2017-08-12 08:09] LABS: CALCIUM 6.6 mg/dL (8.4-10.5); MAGNESIUM 1.7 mg/dL (1.7-2.2)
[2017-08-12] MEDS: Insulin Lispro (humaLOG) MEDIUM Coverage SC SCH ×3 (09:18→22:14)
[2017-08-12] MEDS: Aztreonam 1 Gm in NS 100mL 100 ML IVPB SCH ×2 (09:19→21:06)
--- NOTE | 2017-08-12 09:19 | RAD ---
HISTORY: s/p Intubation COMPARISON: 08/10/2017 FINDINGS: LUNGS: There is a minimal infiltrate at the left lung base that obscures the diaphragm. PLEURA: No significant pleural effusion identified, no pneumothorax apparent. CARDIOVASCULAR: Normal. OSSEOUS STRUCTURES: No significant abnormalities. VISUALIZED UPPER ABDOMEN: Nasogastric tube is in satisfactory position. OTHER FINDINGS: Endotracheal tube in satisfactory position IMPRESSION: Minimal infiltrate at the left lung base
[2017-08-12] MEDS: Multivitamin With Minerals Tab PO SCH (09:28)
[2017-08-12] MEDS: Levothyroxine 100 mcg (0.1 mg) Inj IVP SCH (09:29)
[2017-08-12] MEDS: MethylPREDNISolone 40 mg Vial IVP SCH ×2 (09:29→21:06)
[2017-08-12] MEDS: Nystatin 100,000 Units/gm Topical Pow(15 gm) TOP SCH (09:30)
--- NOTE | 2017-08-12 09:50 | PN ---
DATE: SUBJECTIVE: The patient is seen at bedside. She is sedated with propofol 40 mcg/kg/minute and fentanyl 10 mcg/hour. The patient is intubated on PRVC 350/28/5/40. On that setting, her oxygen saturation of 100%, heart rate of 58, respiratory rate of 28, and end-tidal CO2 on the monitor of 24. Temperature is 97.3 and blood pressure is 105/58 with mean arterial pressure of 80. The urine output overnight 800 mL (12 hours). The patient did not have diarrhea over the last 12 hours. ABGs today 7.45/29/157 on 50% FiO2 (therefore Fi02 was dialed down to 40%). PHYSICAL EXAMINATION: HEENT: Head and neck atraumatic. LUNGS: Decrease BS b/l. Some wheezing bilaterally. HEART: Regular rate and rhythm. S1 and S2 normal. ABDOMEN: Soft, nontender, and nondistended. A 500 mL output from NG tube overnight (enteral nutrition held). MUSCULOSKELETAL: There is chronic cellulitic changes on both lower extremities. Trace bilateral pedal and ankle edema. NEUROLOGIC: The patient is sedated. SKIN: Color moist. PSYCHIATRIC: The patient is sedated (currently propofol is off and waiting for the patient to wake up to proceed with weaning trial). LABORATORY DATA: WBC of 6.7, hemoglobin of 8.7, and platelet count of 202. Sodium of 134, potassium of 4, chloride of 103, carbon dioxide of 20, BUN of 44, creatinine of 3.3, and glucose of 101. AST of 20, and ALT of 33. Procalcitonin 149 up from 0.721. DIAGNOSTIC DATA: Chest x-ray, no active pulmonary disease. MEDICATIONS: DuoNeb every 4 hours, aztreonam, PhosLo, Feosol, Flagyl, Robitussin p.r.n., regular insulin sliding scale medium protocol, lactated Ringer's at 75 mL per hour, Synthroid, lisinopril, Solu-Medrol 40 mg IV q. 12 hours, Nystatin topical, Protonix, propofol, bicarbonate tablets, Zinc, and Zyvox. ASSESSMENT AND PLAN: This is a 67-year-old lady who presented with hypercapnic respiratory failure due to combination of factors (asthma, low FRC, restrictive defect due to kyphoscoliosis, RA airway disease), who might be tipped off by might by Clostridium colitis, which now appears to be contained (no diarrhea over the last 12 hours, afebrile and no leukocytosis). The patient still has suboptimal gastrointestinal tract function, as she has 500 mL of NG output over the last 12 hours. Feeds are held. She is on Flagyl. Meanwhile, she is afebrile and does not have leukocytosis. She is still on antibiotics though, an Infectious Diseases service is following her as well. She failed PST yesterday and will proceed with weaning trial today again 1. Neurologic: The patient is sedated and waiting for her to wake up to proceed with weaning trial today. 2. Pulmonary: We will continue with protective lung ventilation strategy to avoid VILI. Will avoid overventilation with I to E ratio more than 1 to 2. Head of bed elevated> 35 degrees. Aspiration precaution. Oral hygiene, deep venous thrombosis, and gastrointestinal prophylaxis. We will continue with conservative fluid and oxygen management, but not at expense of causing renal hyperperfusion. We will continue with daily sedation vacation and daily weaning trials. Will proceed with early trach to expedite tapering down/off sedation if fails today again 3. Cardiovascular: The patient is hemodynamically stable. 4. Gastrointestinal: Nasogastric tube on suction. Still high nasogastric output. If unable to start enteral nutrition within seven days of intubation, we will consider TPN or PPN. Gastrointestinal prophylaxis. 5. Infectious Disease: The patient is afebrile and does not have fever or chills. She is to complete course of antibiotics. Infectious Diseases service is following her as well. Procalcitonin slightly bumped, however, it is hard to interpret in the setting of acute kidney injury. 6. Endocrine: We will continue to target blood glucose within 140 to 180 range according to NICE-[facility]GAR trial. 7. Renal: The patient picked up urine output. Today's BUN and creatinine is pending. She had 800 mL of urine output overnight. We will continue to maintain euvolemia, euglycemia, and mean arterial pressure more than 65. 8. We will continue with deep venous thrombosis and gastrointestinal prophylaxis. Addendum: creatinine 3.5 up from 3.3-->probably lagging behind urine output: discussed with nephro, who agreed. Failed PST again. Presumptive trach on wednesday. Monitoring NGT output-->no peg for now. ccm time 40 min Bassem Love MD JERRELL
--- NOTE | 2017-08-12 10:16 | CP.CCUPN ---
CCU Subjective - Physician Review Subjective (Free Text): Critical Care progress note Patient seen and examined CCU Objective - Vital Signs / Intake & Output Vital Signs (Last 4 hours): Vital Signs Temp Pulse Resp BP Pulse Ox 08/12/17 08:54 55 L 08/12/17 08:00 97.3 F L 08/12/17 07:51 28 H 99 08/12/17 07:50 97.3 F L 58 L 100 08/12/17 07:43 97.3 F L 63 99 08/12/17 07:40 97.3 F L 56 L 100 08/12/17 07:30 97.5 F L 55 L 100 08/12/17 07:20 97.5 F L 57 L 100 08/12/17 07:10 97.5 F L 56 L 98 08/12/17 07:00 105/58 L 08/12/17 06:59 97.5 F L 56 L 99 08/12/17 06:50 97.5 F L 55 L 100 08/12/17 06:40 97.5 F L 56 L 100 08/12/17 06:30 97.5 F L 57 L 99 08/12/17 06:20 97.5 F L 58 L 100 Intake and Output (Last 8hrs): Intake & Output 08/11/17 08/12/17 08/12/17 22:59 06:59 14:59 Intake Total 100 2000 Output Total 1300 Balance 100 700 Intake: IV 100 2000 LR 900 abx 600 fentanyl 24 propofol 276 Output: Gastric Amount 500 Right 500 Urine 800 Urethral (Christensen) 800 - Physical Exam Head: Positive for: Atraumatic, Normocephalic Pupils: Positive for: PERRL Extroacular Muscles: Positive for: EOMI Conjunctiva: Positive for: Normal Mouth: Positive for: Moist Mucous Membranes Pharnyx: Positive for: Normal. Negative for: ERYTHEMA, EXUDATE, TONSILS ENLARGED Nose (External): Positive for: Atraumatic Nose (Internal): Positive for: Normal Inspection Neck: Positive for: Normal Range of Motion Respiratory/Chest: Positive for: Clear to Auscultation, Good Air Exchange. Negative for: Respiratory Distress, Accessory Muscle Use, Wheezes, Retracting, Rhonchi Cardiovascular: Positive for: Regular Rate and Rhythm, Normal S1, S2. Negative for: Murmurs Abdomen: Positive for: Normal Bowel Sounds. Negative for: Tenderness, Distention, Peritoneal Signs Back: Positive for: Normal Inspection. Negative for: CVA Tenderness, Midline Tenderness Upper Extremity: Positive for: Normal Inspection, Normal ROM, NORMAL PULSES, Neurovascularly Intact, Capillary Refill < 2s. Negative for: Cyanosis, Edema, Erythema Lower Extremity: Positive for: NORMAL PULSES, Normal ROM, Swelling, Erythema, Temperature Abnormalties, Neurovascularly Intact, Capillary Refill < 2 s. Negative for: Edema, CALF TENDERNESS Neurological: Positive for: GCS=15, CN II-XII Intact, Speech Normal, Motor Func Grossly Intact, Normal Sensory Function, Normal Cerebellar Funct, Gait Normal, Memory Normal Skin: Positive for: Warm, Dry, Normal Color. Negative for: Rashes Psychiatric: Positive for: Alert, Oriented x 3, Normal Insight, Normal Concentration - Medications Active Medications: Active Medications Generic Name Dose Route Start Last Admin Trade Name Freq PRN Reason Stop Dose Admin Albuterol/Ipratropium 3 ml 08/11/17 16:07 08/12/17 07:39 Duoneb 3 Mg/0.5 Mg (3 Ml) Ud IH 3 ml Q4 ESCOBAR Administration Albuterol/Ipratropium 3 ml 08/11/17 16:08 Duoneb 3 Mg/0.5 Mg (3 Ml) Ud IH Q4 PRN SOB Calcium Acetate 667 mg 08/09/17 10:30 08/11/17 17:49 Phoslo PO 667 mg TID ESCOBAR Administration Ferrous Sulfate 324 mg 06/16/17 14:00 08/11/17 17:49 Feosol PO 324 mg TID ESCOBAR Administration Guaifenesin 200 mg 07/30/17 07:26 08/05/17 22:33 Robitussin PO 200 mg Q4H PRN Administration Cough and congestion Propofol 1,000 mg in 100 mls @ 2.885 mls/hr 08/06/17 17:13 08/12/17 06:03 Diprivan IV 40 mcg/kg/min .Q24H PRN 23.079 mls/hr TITRATE PER MD ORDER Administration Protocol 5 MCG/KG/MIN Aztreonam 100 mls @ 100 mls/hr 08/07/17 22:00 08/11/17 21:27 Azactam 1 Gm IVPB 100 mls/hr Q12 ESCOBAR Administration Protocol Metronidazole 500 mg in 100 mls @ 100 mls/hr 08/07/17 17:00 08/12/17 05:23 Flagyl IVPB 100 mls/hr Q8 ESCOBAR Administration Protocol Linezolid 600 mg in 300 mls @ 200 mls/hr 08/07/17 22:00 08/11/17 21:28 Zyvox 600mg/300ml D5w IVPB 200 mls/hr Q12 ESCOBAR Administration Protocol Lactated Ringer's 1,000 mls @ 75 mls/hr 08/08/17 09:36 08/11/17 22:04 Lactated Ringer's IV 75 mls/hr .[id number] ESCOBAR Administration Fentanyl Citrate 1,000 mcg in 100 mls @ 5 mls/hr 08/08/17 15:32 08/10/17 19: 59 Fentanyl Citrate/Sodium Chloride 1 Mg/100 Ml IV 20 mcg/hr .Q20H PRN 2 mls/hr TITRATE PER MD ORDER Titration Protocol 50 MCG/HR Insulin Human Lispro 0 units 07/24/17 16:30 08/11/17 21:55 Humalog Med SC Not Given ACHS ESCOBAR Protocol Levothyroxine Sodium 50 mcg 08/11/17 10:00 08/11/17 10:01 Synthroid IVP 50 mcg DAILY ESCOBAR Administration Lisinopril 5 mg 07/25/17 11:00 08/06/17 09:14 Zestril PO 5 mg DAILY ESCOBAR Administration Methylprednisolone 40 mg 08/12/17 02:45 Solu-Medrol IVP Q12 ESCOBAR Multivitamins/Minerals 1 tab 06/16/17 08:00 08/11/17 08:51 Therapeutic-M Tab PO 1 tab 0800 ESCOBAR Administration Nystatin 1 gm 06/20/17 10:00 08/11/17 10:02 Nystop Topical Powder TOP 1 applic DAILY ESCOBAR Administration Pantoprazole Sodium 40 mg 08/07/17 10:00 08/11/17 10:02 Protonix Inj IVP 40 mg DAILY ESCOBAR Administration Sodium Bicarbonate 1,300 mg 08/09/17 10:15 08/11/17 17:49 Sodium Bicarbonate Tab PO 1,300 mg BID ESCOBAR Administration Zinc Sulfate 220 mg 06/15/17 14:30 08/11/17 10:01 Zinc Sulfate 220 Mg Cap PO 220 mg DAILY ESCOBAR Administration - Patient Studies Lab Studies: Microbiology Studies 08/10/17 12:40 Urine Culture - Final Urine,Christensen Gram Positive Cocci 08/10/17 11:30 Blood Culture - Preliminary Blood NO GROWTH AFTER 24 HOURS Lab Studies 08/12/17 08/12/17 08/12/17 Range/Units 07:37 05:50 05:50 WBC 6.7 (4.5-11.0) 10^3/ul RBC 3.35 L (3.5-6.1) 10^6/uL Hgb 8.7 L (12.0-16.0) g/dL Hct 26.4 L (36.0-48.0) % MCV 78.8 L (80.0-105.0) fl MCH 26.0 (25.0-35.0) pg MCHC 33.0 (31.0-37.0) g/dl RDW 25.1 H (11.5-14.5) % Plt Count 202 (120.0-450.0) 10^3/uL MPV 8.9 (7.0-11.0) fl Gran % 75.7 H (50.0-68.0) % Lymph % (Auto) 15.9 L (22.0-35.0) % Stoddard % (Auto) 8.3 H (1.0-6.0) % Eos % (Auto) 0.1 L (1.5-5.0) % Baso % (Auto) 0.0 (0.0-3.0) % Gran # 5.07 (1.4-6.5) Lymph # 1.1 L (1.2-3.4) Stoddard # 0.6 (0.1-0.6) Eos # 0.0 (0.0-0.7) Baso # 0.00 (0.0-2.0) K/mm3 pCO2 (35-45) mm/Hg pO2 (80-100) mm/Hg HCO3 (21-28) mmol/L ABG pH (7.35-7.45) ABG Total CO2 (22-28) mmol.L ABG O2 Saturation (95-98) % ABG O2 Content (15-23) ML/dl ABG Base Excess (-2.0-3.0) mmol/L ABG Hemoglobin (11.7-17.4) g/dL ABG Carboxyhemoglobin (0.5-1.5) % POC ABG HHb (Measured) (0-5) % ABG Methemoglobin (0.0-3.0) % ABG O2 Capacity (16-24) mL/dl Hgb O2 Saturation (95.0-98.0) % FiO2 % Sodium 134 (132-148) mmol/L Potassium 4.0 (3.6-5.0) mmol/L Chloride 101 (98-107) mmol/L Carbon Dioxide 21 (21-33) mmol/L Anion Gap 15 (10-20) BUN 48 H (7-21) mg/dL Creatinine 3.5 H (0.7-1.2) mg/dl Est GFR ( Amer) 16 Est GFR (Non-Af Amer) 13 POC Glucose (mg/dL) 103 (65-110) mg/dL Random Glucose 105 (70-110) mg/dL Calcium 6.6 L* (8.4-10.5) mg/dL Phosphorus 5.4 H (2.5-4.5) mg/dL Magnesium 1.7 (1.7-2.2) mg/dL Procalcitonin (0.19-0.49) NG/ML Proteinase 3 (PR3) (<1.0) AI Myeloperoxidase Ab (<1.0) AI Glomerular Base Mem IgG (<1.0) AI 08/12/17 08/11/17 08/11/17 Range/Units 05:00 21:49 18:32 WBC (4.5-11.0) 10^3/ul RBC (3.5-6.1) 10^6/uL Hgb (12.0-16.0) g/dL Hct (36.0-48.0) % MCV (80.0-105.0) fl MCH (25.0-35.0) pg MCHC (31.0-37.0) g/dl RDW (11.5-14.5) % Plt Count (120.0-450.0) 10^3/uL MPV (7.0-11.0) fl Gran % (50.0-68.0) % Lymph % (Auto) (22.0-35.0) % Stoddard % (Auto) (1.0-6.0) % Eos % (Auto) (1.5-5.0) % Baso % (Auto) (0.0-3.0) % Gran # (1.4-6.5) Lymph # (1.2-3.4) Stoddard # (0.1-0.6) Eos # (0.0-0.7) Baso # (0.0-2.0) K/mm3 pCO2 29 L (35-45) mm/Hg pO2 157.0 H (80-100) mm/Hg HCO3 20.2 L (21-28) mmol/L ABG pH 7.45 (7.35-7.45) ABG Total CO2 21.1 L (22-28) mmol.L ABG O2 Saturation 100.2 H (95-98) % ABG O2 Content 12.3 L (15-23) ML/dl ABG Base Excess -3.2 L (-2.0-3.0) mmol/L ABG Hemoglobin 8.7 L (11.7-17.4) g/dL ABG Carboxyhemoglobin 1.6 H (0.5-1.5) % POC ABG HHb (Measured) -0.2 L (0-5) % ABG Methemoglobin 1.2 (0.0-3.0) % ABG O2 Capacity 12.3 L (16-24) mL/dl Hgb O2 Saturation 97.4 (95.0-98.0) % FiO2 50.0 % Sodium (132-148) mmol/L Potassium (3.6-5.0) mmol/L Chloride (98-107) mmol/L Carbon Dioxide (21-33) mmol/L Anion Gap (10-20) BUN (7-21) mg/dL Creatinine (0.7-1.2) mg/dl Est GFR ( Amer) Est GFR (Non-Af Amer) POC Glucose (mg/dL) 101 118 H (65-110) mg/dL Random Glucose (70-110) mg/dL Calcium (8.4-10.5) mg/dL Phosphorus (2.5-4.5) mg/dL Magnesium (1.7-2.2) mg/dL Procalcitonin (0.19-0.49) NG/ML Proteinase 3 (PR3) (<1.0) AI Myeloperoxidase Ab (<1.0) AI Glomerular Base Mem IgG (<1.0) AI 08/11/17 08/11/17 08/11/17 Range/Units 16:24 13:30 13:30 WBC (4.5-11.0) 10^3/ul RBC (3.5-6.1) 10^6/uL Hgb (12.0-16.0) g/dL Hct (36.0-48.0) % MCV (80.0-105.0) fl MCH (25.0-35.0) pg MCHC (31.0-37.0) g/dl RDW (11.5-14.5) % Plt Count (120.0-450.0) 10^3/uL MPV (7.0-11.0) fl Gran % (50.0-68.0) % Lymph % (Auto) (22.0-35.0) % Stoddard % (Auto) (1.0-6.0) % Eos % (Auto) (1.5-5.0) % Baso % (Auto) (0.0-3.0) % Gran # (1.4-6.5) Lymph # (1.2-3.4) Stoddard # (0.1-0.6) Eos # (0.0-0.7) Baso # (0.0-2.0) K/mm3 pCO2 (35-45) mm/Hg pO2 (80-100) mm/Hg HCO3 (21-28) mmol/L ABG pH (7.35-7.45) ABG Total CO2 (22-28) mmol.L ABG O2 Saturation (95-98) % ABG O2 Content (15-23) ML/dl ABG Base Excess (-2.0-3.0) mmol/L ABG Hemoglobin (11.7-17.4) g/dL ABG Carboxyhemoglobin (0.5-1.5) % POC ABG HHb (Measured) (0-5) % ABG Methemoglobin (0.0-3.0) % ABG O2 Capacity (16-24) mL/dl Hgb O2 Saturation (95.0-98.0) % FiO2 % Sodium (132-148) mmol/L Potassium (3.6-5.0) mmol/L Chloride (98-107) mmol/L Carbon Dioxide (21-33) mmol/L Anion Gap (10-20) BUN (7-21) mg/dL Creatinine (0.7-1.2) mg/dl Est GFR ( Amer) Est GFR (Non-Af Amer) POC Glucose (mg/dL) 115 H 115 H (65-110) mg/dL Random Glucose (70-110) mg/dL Calcium (8.4-10.5) mg/dL Phosphorus (2.5-4.5) mg/dL Magnesium (1.7-2.2) mg/dL Procalcitonin 1.49 H (0.19-0.49) NG/ML Proteinase 3 (PR3) (<1.0) AI Myeloperoxidase Ab (<1.0) AI Glomerular Base Mem IgG (<1.0) AI 08/08/17 08/08/17 Range/Units 11:43 05:30 WBC (4.5-11.0) 10^3/ul RBC (3.5-6.1) 10^6/uL Hgb (12.0-16.0) g/dL Hct (36.0-48.0) % MCV (80.0-105.0) fl MCH (25.0-35.0) pg MCHC (31.0-37.0) g/dl RDW (11.5-14.5) % Plt Count (120.0-450.0) 10^3/uL MPV (7.0-11.0) fl Gran % (50.0-68.0) % Lymph % (Auto) (22.0-35.0) % Stoddard % (Auto) (1.0-6.0) % Eos % (Auto) (1.5-5.0) % Baso % (Auto) (0.0-3.0) % Gran # (1.4-6.5) Lymph # (1.2-3.4) Stoddard # (0.1-0.6) Eos # (0.0-0.7) Baso # (0.0-2.0) K/mm3 pCO2 (35-45) mm/Hg pO2 (80-100) mm/Hg HCO3 (21-28) mmol/L ABG pH (7.35-7.45) ABG Total CO2 (22-28) mmol.L ABG O2 Saturation (95-98) % ABG O2 Content (15-23) ML/dl ABG Base Excess (-2.0-3.0) mmol/L ABG Hemoglobin (11.7-17.4) g/dL ABG Carboxyhemoglobin (0.5-1.5) % POC ABG HHb (Measured) (0-5) % ABG Methemoglobin (0.0-3.0) % ABG O2 Capacity (16-24) mL/dl Hgb O2 Saturation (95.0-98.0) % FiO2 % Sodium (132-148) mmol/L Potassium (3.6-5.0) mmol/L Chloride (98-107) mmol/L Carbon Dioxide (21-33) mmol/L Anion Gap (10-20) BUN (7-21) mg/dL Creatinine (0.7-1.2) mg/dl Est GFR ( Amer) Est GFR (Non-Af Amer) POC Glucose (mg/dL) (65-110) mg/dL Random Glucose (70-110) mg/dL Calcium (8.4-10.5) mg/dL Phosphorus (2.5-4.5) mg/dL Magnesium (1.7-2.2) mg/dL Procalcitonin (0.19-0.49) NG/ML Proteinase 3 (PR3) <1.0 (<1.0) AI Myeloperoxidase Ab <1.0 (<1.0) AI Glomerular Base Mem IgG <1.0 (<1.0) AI Laboratory Results - last 24 hr 08/08/17 08/08/17 08/11/17 05:30 11:43 13:30 WBC RBC Hgb Hct MCV MCH MCHC RDW Plt Count MPV Gran % Lymph % (Auto) Stoddard % (Auto) Eos % (Auto) Baso % (Auto) Gran # Lymph # Stoddard # Eos # Baso # pCO2 pO2 HCO3 ABG pH ABG Total CO2 ABG O2 Saturation ABG O2 Content ABG Base Excess ABG Hemoglobin ABG Carboxyhemoglobin POC ABG HHb (Measured) ABG Methemoglobin ABG O2 Capacity Hgb O2 Saturation FiO2 Sodium Potassium Chloride Carbon Dioxide Anion Gap BUN Creatinine Est GFR ( Amer) Est GFR (Non-Af Amer) POC Glucose (mg/dL) 115 H Random Glucose Calcium Phosphorus Magnesium Procalcitonin Proteinase 3 (PR3) <1.0 Myeloperoxidase Ab <1.0 Glomerular Base Mem IgG <1.0 08/11/17 08/11/17 08/11/17 13:30 16:24 18:32 WBC RBC Hgb Hct MCV MCH MCHC RDW Plt Count MPV Gran % Lymph % (Auto) Stoddard % (Auto) Eos % (Auto) Baso % (Auto) Gran # Lymph # Stoddard # Eos # Baso # pCO2 pO2 HCO3 ABG pH ABG Total CO2 ABG O2 Saturation ABG O2 Content ABG Base Excess ABG Hemoglobin ABG Carboxyhemoglobin POC ABG HHb (Measured) ABG Methemoglobin ABG O2 Capacity Hgb O2 Saturation FiO2 Sodium Potassium Chloride Carbon Dioxide Anion Gap BUN Creatinine Est GFR ( Amer) Est GFR (Non-Af Amer) POC Glucose (mg/dL) 115 H 118 H Random Glucose Calcium Phosphorus Magnesium Procalcitonin 1.49 H Proteinase 3 (PR3) Myeloperoxidase Ab Glomerular Base Mem IgG 08/11/17 08/12/17 08/12/17 21:49 05:00 05:50 WBC RBC Hgb Hct MCV MCH MCHC RDW Plt Count MPV Gran % Lymph % (Auto) Stoddard % (Auto) Eos % (Auto) Baso % (Auto) Gran # Lymph # Stoddard # Eos # Baso # pCO2 29 L pO2 157.0 H HCO3 20.2 L ABG pH 7.45 ABG Total CO2 21.1 L ABG O2 Saturation 100.2 H ABG O2 Content 12.3 L ABG Base Excess -3.2 L ABG Hemoglobin 8.7 L ABG Carboxyhemoglobin 1.6 H POC ABG HHb (Measured) -0.2 L ABG Methemoglobin 1.2 ABG O2 Capacity 12.3 L Hgb O2 Saturation 97.4 FiO2 50.0 Sodium 134 Potassium 4.0 Chloride 101 Carbon Dioxide 21 Anion Gap 15 BUN 48 H Creatinine 3.5 H Est GFR ( Amer) 16 Est GFR (Non-Af Amer) 13 POC Glucose (mg/dL) 101 Random Glucose 105 Calcium 6.6 L* Phosphorus 5.4 H Magnesium 1.7 Procalcitonin Proteinase 3 (PR3) Myeloperoxidase Ab Glomerular Base Mem IgG 08/12/17 08/12/17 05:50 07:37 WBC 6.7 RBC 3.35 L Hgb 8.7 L Hct 26.4 L MCV 78.8 L MCH 26.0 MCHC 33.0 RDW 25.1 H Plt Count 202 MPV 8.9 Gran % 75.7 H Lymph % (Auto) 15.9 L Stoddard % (Auto) 8.3 H Eos % (Auto) 0.1 L Baso % (Auto) 0.0 Gran # 5.07 Lymph # 1.1 L Stoddard # 0.6 Eos # 0.0 Baso # 0.00 pCO2 pO2 HCO3 ABG pH ABG Total CO2 ABG O2 Saturation ABG O2 Content ABG Base Excess ABG Hemoglobin ABG Carboxyhemoglobin POC ABG HHb (Measured) ABG Methemoglobin ABG O2 Capacity Hgb O2 Saturation FiO2 Sodium Potassium Chloride Carbon Dioxide Anion Gap BUN Creatinine Est GFR ( Amer) Est GFR (Non-Af Amer) POC Glucose (mg/dL) 103 Random Glucose Calcium Phosphorus Magnesium Procalcitonin Proteinase 3 (PR3) Myeloperoxidase Ab Glomerular Base Mem IgG Fingerstick Blood Sugar Results: 101 Critical Care Progress Note - Nutrition Nutrition: Nutrition Category Date Time Status Heart Healthy Diet [DIET] Diets 07/27/17 Dinner Ordered
--- NOTE | 2017-08-12 10:24 | CP.PCM.PN ---
Objective - Vital Signs/Intake and Output Vital Signs (last 24 hours): Temp Pulse Resp BP Pulse Ox 97.3 F L 55 L 28 H 105/58 L 99 08/12/17 08:00 08/12/17 08:54 08/12/17 07:51 08/12/17 07:00 08/12/17 07:51 Intake and Output: 08/12/17 08/12/17 06:59 18:59 Intake Total 2100 60 Output Total 1300 Balance 800 60 - Medications Medications: Current Medications Albuterol/Ipratropium (Duoneb 3 Mg/0.5 Mg (3 Ml) Ud) 3 ml IH Q4 [facility] Last Admin: 08/12/17 07:39 Dose: 3 ml Albuterol/Ipratropium (Duoneb 3 Mg/0.5 Mg (3 Ml) Ud) 3 ml IH Q4 PRN PRN Reason: SOB Calcium Acetate (Phoslo) 667 mg PO TID [facility] Last Admin: 08/12/17 09:28 Dose: 667 mg Ferrous Sulfate (Feosol) 324 mg PO TID [facility] Last Admin: 08/12/17 09:27 Dose: 324 mg Guaifenesin (Robitussin) 200 mg PO Q4H PRN PRN Reason: Cough and congestion Last Admin: 08/05/17 22:33 Dose: 200 mg Propofol (Diprivan) 1,000 mg in 100 mls @ 2.885 mls/hr IV .Q24H PRN; Protocol; 5 MCG/KG/MIN PRN Reason: TITRATE PER MD ORDER Last Titration: 08/12/17 09:23 Dose: 0 mcg/kg/min, 0 mls/hr Aztreonam (Azactam 1 Gm) 100 mls @ 100 mls/hr IVPB Q12 ESCOBAR PRN Reason: Protocol Last Admin: 08/12/17 09:19 Dose: 100 mls/hr Metronidazole (Flagyl) 500 mg in 100 mls @ 100 mls/hr IVPB Q8 ESCOBAR PRN Reason: Protocol Last Admin: 08/12/17 05:23 Dose: 100 mls/hr Linezolid (Zyvox 600mg/300ml D5w) 600 mg in 300 mls @ 200 mls/hr IVPB Q12 ESCOBAR PRN Reason: Protocol Last Admin: 08/11/17 21:28 Dose: 200 mls/hr Lactated Ringer's (Lactated Ringer's) 1,000 mls @ 75 mls/hr IV .[id number] [facility] Last Admin: 08/11/17 22:04 Dose: 75 mls/hr Fentanyl Citrate (Fentanyl Citrate/Sodium Chloride 1 Mg/100 Ml) 1,000 mcg in 100 mls @ 5 mls/hr IV .Q20H PRN; Protocol; 50 MCG/HR PRN Reason: TITRATE PER MD ORDER Last Titration: 08/10/17 19:59 Dose: 20 mcg/hr, 2 mls/hr Insulin Human Lispro (Humalog Med) 0 units SC ACHS [facility] PRN Reason: Protocol Last Admin: 08/12/17 09:18 Dose: Not Given Levothyroxine Sodium (Synthroid) 50 mcg IVP DAILY [facility] Last Admin: 08/12/17 09:29 Dose: 50 mcg Lisinopril (Zestril) 5 mg PO DAILY [facility] Last Admin: 08/06/17 09:14 Dose: 5 mg Methylprednisolone (Solu-Medrol) 40 mg IVP Q12 [facility] Last Admin: 08/12/17 09:29 Dose: 40 mg Multivitamins/Minerals (Therapeutic-M Tab) 1 tab PO 0800 [facility] Last Admin: 08/12/17 09:28 Dose: 1 tab Nystatin (Nystop Topical Powder) 1 gm TOP DAILY [facility] Last Admin: 08/12/17 09:30 Dose: 1 applic Pantoprazole Sodium (Protonix Inj) 40 mg IVP DAILY [facility] Last Admin: 08/12/17 09:29 Dose: 40 mg Sodium Bicarbonate (Sodium Bicarbonate Tab) 1,300 mg PO BID [facility] Last Admin: 08/12/17 09:28 Dose: 1,300 mg Zinc Sulfate (Zinc Sulfate 220 Mg Cap) 220 mg PO DAILY [facility] Last Admin: 08/12/17 09:27 Dose: 220 mg - Labs Labs: 08/12/17 05:50 08/12/17 05:50 PT 13.1 SECONDS (9.4-12.5) H 06/15/17 11:00 INR 1.19 (0.93-1.08) H 06/15/17 11:00 APTT 31.3 Seconds (25.1-36.5) 06/15/17 11:00
[2017-08-12] MEDS ORDERED: Albuterol-Ipratrop 3 mg / 0.5 (3 ml) UD IH PRN (10:57)
[2017-08-12] MEDS: Linezolid 600 mg in D5W 300 ml 600 MG/300 ML BAG IVPB SCH ×2 (11:02→21:06)
--- NOTE | 2017-08-12 13:22 | CP.PCM.PN ---
Subjective - Date & Time of Evaluation Date of Evaluation: 08/12/17 Time of Evaluation: 13:20 - Subjective Subjective: Follow up Nephrology Consultation (covering for Dr Agustín Bai): Assessment: critical non-oliguric Acute Kidney Injury (N17.9) possibly hemodynamic, GI fluid loss leading to ATN. morbid obesity, arthritis, anemia, asthma, RAS and RA factor+ recent cellulitis, UTI, fecal impaction acute hypercapnic respi failure hypocalcemia, hyperphosphatemia, acidosis, hypokalemia vit D def Plan No acute need for renal replacement therapy at this time maintain hemodynamics stable. No ACEI/ARB due to CATE Monitor Input/Output, daily weights and renal function with basic metabolic panel continue with IVF as ordered but increased to 100 ml/hr supplement electrolytes as needed started phos binders and bicarb started weekly Vit D supplements GN w/up neg with Anti-GBM (neg), anca (neg). has normal complements Dose meds/antibiotics for reduced GFR. Avoid fleets enema/magnesium based laxatives. Avoid nephrotoxins/NSAIDs/ iodinated contrast (unless needed emergently) Glycemic control Further work up/management as per primary team Thanks for allowing me to participate in care of your patient. Will follow patient with you. Please call if any Qs. d/w team Dr Abel Pierson Office: [phone] Chief Complaint; unable to obtain reason for consult: kidney failure source of info: EMR HPI: Pt is a 67 F with hx of morbid obesity, arthritis, anemia, asthma, RAS and RA factor+ who had prolonged hospitalization for cellulitis which was treated with multiple antibiotics and also had UTI treated with antibiotics, constipation with fecal impaction, was awaiting to go to rehab but had hypercapnic respi failure 08/06/17 which required intubation. pt also having diarrhoea now. renal consulted since serum creatinine 1.6 on 08/06 and 2.6 . her serum creatinine was normal prior to that No recent iodinated contrast exposure. intermittent episodes of low BP (90/50) ROS: pt intubated Physical Examination: General Appearance: orally intubated. no distress. obese Vitals reviewed and noted as below Head; Atraumatic, normocephalic ENT: orally intubated EYES: Pupils are equal, round and reactive to light accommodation. Eye muscles and extraocular movement intact. Sclera is anicteric. Neck; supple no lymphadenopathy, no thyromegaly or bruit Lungs: Normal respiratory rate/effort. Breath sounds bilateral rales+ Heart: Normal rate. s1s2 normal. No rub or gallop. Extremities: no edema. No varicose veins Neurological: Patient is sedated Skin: Warm and dry. Normal turgor. No rash. Palpitation: Normal elasticity for age. dressing over legs + Abdomen: Abdomen is soft. Bowel sounds +. There is no abdominal tenderness, no guarding/rigidity no organomegaly. has rectal tube for diarrhoea Psych: unable MSK: no joint tenderness or swelling. Digits and nails normal, no deformity : kidney or bladder not palpable. has khanna + Labs/imaging reviewed. Past medical history, past surgical history, family history, social history, allergy reviewed and noted as below Family hx: no hx of CKD. Rest non-contributory work up: renal sono: neg Urine Na 88 FeNa2.1% urine eos neg normal complements Objective - Vital Signs/Intake and Output Vital Signs (last 24 hours): Temp Pulse Resp BP Pulse Ox 97.3 F L 55 L 28 H 105/58 L 99 08/12/17 08:00 08/12/17 08:54 08/12/17 07:51 08/12/17 07:00 08/12/17 07:51 Intake and Output: 08/12/17 08/12/17 06:59 18:59 Intake Total 2100 60 Output Total 1300 Balance 800 60 - Medications Medications: Current Medications Albuterol/Ipratropium (Duoneb 3 Mg/0.5 Mg (3 Ml) Ud) 3 ml IH Q6 [facility] Albuterol/Ipratropium (Duoneb 3 Mg/0.5 Mg (3 Ml) Ud) 3 ml IH Q6 PRN PRN Reason: SOB Calcium Acetate (Phoslo) 667 mg PO TID [facility] Last Admin: 08/12/17 09:28 Dose: 667 mg Ergocalciferol (Drisdol 50,000 Intl Units Cap) 1 cap PO Q7D [facility] Ferrous Sulfate (Feosol) 324 mg PO TID [facility] Last Admin: 08/12/17 09:27 Dose: 324 mg Guaifenesin (Robitussin) 200 mg PO Q4H PRN PRN Reason: Cough and congestion Last Admin: 08/05/17 22:33 Dose: 200 mg Propofol (Diprivan) 1,000 mg in 100 mls @ 2.885 mls/hr IV .Q24H PRN; Protocol; 5 MCG/KG/MIN PRN Reason: TITRATE PER MD ORDER Last Titration: 08/12/17 09:23 Dose: 0 mcg/kg/min, 0 mls/hr Aztreonam (Azactam 1 Gm) 100 mls @ 100 mls/hr IVPB Q12 [facility] PRN Reason: Protocol Last Admin: 08/12/17 09:19 Dose: 100 mls/hr Metronidazole (Flagyl) 500 mg in 100 mls @ 100 mls/hr IVPB Q8 [facility] PRN Reason: Protocol Last Admin: 08/12/17 05:23 Dose: 100 mls/hr Linezolid (Zyvox 600mg/300ml D5w) 600 mg in 300 mls @ 200 mls/hr IVPB Q12 [facility] PRN Reason: Protocol Last Admin: 08/12/17 11:02 Dose: 200 mls/hr Fentanyl Citrate (Fentanyl Citrate/Sodium Chloride 1 Mg/100 Ml) 1,000 mcg in 100 mls @ 5 mls/hr IV .Q20H PRN; Protocol; 50 MCG/HR PRN Reason: TITRATE PER MD ORDER Last Titration: 08/10/17 19:59 Dose: 20 mcg/hr, 2 mls/hr Lactated Ringer's (Lactated Ringer's) 1,000 mls @ 100 mls/hr IV .Q10H [facility] Insulin Human Lispro (Humalog Med) 0 units SC ACHS [facility] PRN Reason: Protocol Last Admin: 08/12/17 09:18 Dose: Not Given Levothyroxine Sodium (Synthroid) 50 mcg IVP DAILY [facility] Last Admin: 08/12/17 09:29 Dose: 50 mcg Lisinopril (Zestril) 5 mg PO DAILY [facility] Last Admin: 08/06/17 09:14 Dose: 5 mg Methylprednisolone (Solu-Medrol) 40 mg IVP Q12 [facility] Last Admin: 08/12/17 09:29 Dose: 40 mg Multivitamins/Minerals (Therapeutic-M Tab) 1 tab PO 0800 [facility] Last Admin: 08/12/17 09:28 Dose: 1 tab Nystatin (Nystop Topical Powder) 1 gm TOP DAILY [facility] Last Admin: 08/12/17 09:30 Dose: 1 applic Pantoprazole Sodium (Protonix Inj) 40 mg IVP DAILY [facility] Last Admin: 08/12/17 09:29 Dose: 40 mg Sodium Bicarbonate (Sodium Bicarbonate Tab) 1,300 mg PO BID [facility] Last Admin: 08/12/17 09:28 Dose: 1,300 mg Zinc Sulfate (Zinc Sulfate 220 Mg Cap) 220 mg PO DAILY [facility] Last Admin: 08/12/17 09:27 Dose: 220 mg - Labs Labs: 08/12/17 05:50 08/12/17 05:50 PT 13.1 SECONDS (9.4-12.5) H 06/15/17 11:00 INR 1.19 (0.93-1.08) H 06/15/17 11:00 APTT 31.3 Seconds (25.1-36.5) 06/15/17 11:00
[2017-08-12 14:05] LABS: ANCA SCREEN NEGATIVE (NEGATIVE)
[2017-08-12] MEDS: Fentanyl 1000mcg/100ml NS 1,000 MCG/100 ML BAG IV PRN ×2 (14:51→21:28)
[2017-08-12] MEDS: Lactated Ringer's 1,000 ML IV SCH (17:05)
[2017-08-12] MEDS: Ergocalciferol 50,000 Intl Units Cap PO SCH (17:09)
--- NOTE | 2017-08-12 20:06 | CP.PCM.PN ---
<Shan Zepeda - Last Filed: 08/12/17 20:09> Subjective - Date & Time of Evaluation Date of Evaluation: 08/12/17 Time of Evaluation: 06:00 - Subjective Subjective: Patient seen and evaluated in the ICU. Patient opening eyes, more alert than yesterday. Unable to obtain full ROS due to current intubation. Objective - Vital Signs/Intake and Output Vital Signs (last 24 hours): Temp Pulse Resp BP Pulse Ox 97.9 F 78 28 H 133/68 94 L 08/12/17 19:20 08/12/17 19:20 08/12/17 07:51 08/12/17 19:00 08/12/17 19:20 Intake and Output: 08/12/17 08/13/17 18:59 06:59 Intake Total 1710 Output Total 1100 Balance 610 - Medications Medications: Current Medications Albuterol/Ipratropium (Duoneb 3 Mg/0.5 Mg (3 Ml) Ud) 3 ml IH Q6 [facility] Last Admin: 08/12/17 13:40 Dose: 3 ml Albuterol/Ipratropium (Duoneb 3 Mg/0.5 Mg (3 Ml) Ud) 3 ml IH Q6 PRN PRN Reason: SOB Calcium Acetate (Phoslo) 667 mg PO TID [facility] Last Admin: 08/12/17 17:08 Dose: 667 mg Ergocalciferol (Drisdol 50,000 Intl Units Cap) 1 cap PO Q7D [facility] Last Admin: 08/12/17 17:09 Dose: 1 cap Ferrous Sulfate (Feosol) 324 mg PO TID [facility] Last Admin: 08/12/17 17:09 Dose: 324 mg Guaifenesin (Robitussin) 200 mg PO Q4H PRN PRN Reason: Cough and congestion Last Admin: 08/05/17 22:33 Dose: 200 mg Propofol (Diprivan) 1,000 mg in 100 mls @ 2.885 mls/hr IV .Q24H PRN; Protocol; 5 MCG/KG/MIN PRN Reason: TITRATE PER MD ORDER Last Titration: 08/12/17 09:23 Dose: 0 mcg/kg/min, 0 mls/hr Aztreonam (Azactam 1 Gm) 100 mls @ 100 mls/hr IVPB Q12 [facility] PRN Reason: Protocol Last Admin: 08/12/17 09:19 Dose: 100 mls/hr Metronidazole (Flagyl) 500 mg in 100 mls @ 100 mls/hr IVPB Q8 [facility] PRN Reason: Protocol Last Admin: 08/12/17 16:57 Dose: 100 mls/hr Linezolid (Zyvox 600mg/300ml D5w) 600 mg in 300 mls @ 200 mls/hr IVPB Q12 [facility] PRN Reason: Protocol Last Admin: 08/12/17 11:02 Dose: 200 mls/hr Lactated Ringer's (Lactated Ringer's) 1,000 mls @ 100 mls/hr IV .Q10H [facility] Last Admin: 08/12/17 17:05 Dose: 100 mls/hr Fentanyl Citrate (Fentanyl Citrate/Sodium Chloride 1 Mg/100 Ml) 1,000 mcg in 100 mls @ 2 mls/hr IV .Q24H PRN; Protocol; 20 MCG/HR PRN Reason: TITRATE PER MD ORDER Insulin Human Lispro (Humalog Med) 0 units SC ACHS [facility] PRN Reason: Protocol Last Admin: 08/12/17 16:58 Dose: Not Given Levothyroxine Sodium (Synthroid) 50 mcg IVP DAILY [facility] Last Admin: 08/12/17 09:29 Dose: 50 mcg Lisinopril (Zestril) 5 mg PO DAILY [facility] Last Admin: 08/06/17 09:14 Dose: 5 mg Methylprednisolone (Solu-Medrol) 40 mg IVP Q12 [facility] Last Admin: 08/12/17 09:29 Dose: 40 mg Multivitamins/Minerals (Therapeutic-M Tab) 1 tab PO 0800 [facility] Last Admin: 08/12/17 09:28 Dose: 1 tab Nystatin (Nystop Topical Powder) 1 gm TOP DAILY [facility] Last Admin: 08/12/17 09:30 Dose: 1 applic Pantoprazole Sodium (Protonix Inj) 40 mg IVP DAILY [facility] Last Admin: 08/12/17 09:29 Dose: 40 mg Sodium Bicarbonate (Sodium Bicarbonate Tab) 1,300 mg PO BID [facility] Last Admin: 08/12/17 17:10 Dose: 1,300 mg Zinc Sulfate (Zinc Sulfate 220 Mg Cap) 220 mg PO DAILY [facility] Last Admin: 08/12/17 09:27 Dose: 220 mg - Labs Labs: 08/12/17 05:50 08/12/17 05:50 PT 13.1 SECONDS (9.4-12.5) H 06/15/17 11:00 INR 1.19 (0.93-1.08) H 06/15/17 11:00 APTT 31.3 Seconds (25.1-36.5) 06/15/17 11:00 - Constitutional Appears: No Acute Distress - Head Exam Head Exam: ATRAUMATIC, NORMAL INSPECTION, NORMOCEPHALIC - Eye Exam Eye Exam: PERRL - Respiratory Exam Respiratory Exam: NORMAL BREATHING PATTERN - Cardiovascular Exam Cardiovascular Exam: REGULAR RHYTHM, +S1, +S2 - GI/Abdominal Exam GI & Abdominal Exam: Distended, Soft - Extremities Exam Extremities Exam: Pedal Edema - Neurological Exam Neurological Exam: Awake Assessment and Plan - Assessment and Plan (Free Text) Assessment: Patient is a 67 year old female with past medical history of asthma, arthritis, anemia, and obesity who was admitted for right lower extremity cellulitis and UTI. Patient was found to have cultures positive for Proteus mirabilis and beta hemolytic strep, s/p completed IV course of Vancomycin and Azactam. Patient subsequently found to have Klebsiella UTI s/p adequate treatment with Ciprofloxacin. Patient's course was also complicated by fecal impaction, currently resolved. Pt also found to have intermittent dyspnea, workup revealing a diagnosis of rheumatoid arthritis. Patient is awaiting placement in [facility], pending approval for Medicaid. Patient experienced respiratory failure and was intubated/ transferred to the ICU. Plan: Hypercapnic Respiratory Failure -Improving ph: 7.38 - patient is intubated and ventilated - failed CPAP trial again today - possible trach will speak to family - CT head no acute findings - CXR reviewed and appreciated- showed no distinctive infiltrate - ABG reviewed and appreciated- pH normalizing, continue to monitor respiratory status - c/w duonebs and solumedrol and pulmicort - c/w zyvox and aztreonam- ID consulted appreciate recommendations -procal 1.49 HTN - BP reviewed, trended, and appreciated - hold zestril due to CATE Abdominal Distension - likely 2/2 Constipation/fecal impaction - CT Abdomen Pelvis with PO and IV Contrast (07/18): Interstitial and airspace disease in the lung bases; mild cardiomegaly and atherosclerotic disease; fatty liver; gallstones; possible pyelonephritis; mild ileus, no obstruction; constipation with fecal impaction - abdominal flat plate-No acute changes or findings Normocytic anemia - Hemoglobins reviewed, trended, and appreciated- decrease noted, will transfuse if Hbg < 7.0 - Monitor daily Diarrhea - rectal tube removed - Stool C diff- positive antigen, negative toxin - c/w flagyl- ID consulted appreciate recommendations Oliguric CATE - creatinine and bun reviewed, trended, and appreciated BUN: 48 Cr:3.5 - Nephrology consulted- recommendation appreciated -maintain hemodynamics stable. -Monitor Input/Output, daily weights and renal function with basic metabolic panel -supplement electrolytes as needed -Anti-GBM -, anca - has normal complements -weekly vitamin D supplements - c/w LR @100 - urine electrolytes and urine creatinine within normal limits - continue to hold BILLY-lisinopril and no arb - continue to monitor via daily CMP -Urine output 800 last 24 hours -Calcium 6.6, repleted, monitor Hypothermia-resolved -TSH 2.33 T4: 3.4 -synthroid 50 IV daily -Blood and urine cultures pending Hypokalemia-resolved -continue to monitor Prophylaxis: - GI ppx Protonix - DVT ppx: Heparin <Max Liriano - Last Filed: 08/13/17 08:06> Objective - Vital Signs/Intake and Output Vital Signs (last 24 hours): Temp Pulse Resp BP Pulse Ox 98.2 F 72 26 H 129/61 96 08/13/17 03:10 08/13/17 03:10 08/13/17 07:17 08/13/17 03:00 08/13/17 07:17 - Medications Medications: Current Medications Albuterol/Ipratropium (Duoneb 3 Mg/0.5 Mg (3 Ml) Ud) 3 ml IH Q6 [facility] Last Admin: 08/13/17 07:11 Dose: 3 ml Albuterol/Ipratropium (Duoneb 3 Mg/0.5 Mg (3 Ml) Ud) 3 ml IH Q6 PRN PRN Reason: SOB Calcium Acetate (Phoslo) 667 mg PO TID [facility] Last Admin: 08/12/17 17:08 Dose: 667 mg Ergocalciferol (Drisdol 50,000 Intl Units Cap) 1 cap PO Q7D [facility] Last Admin: 08/12/17 17:09 Dose: 1 cap Ferrous Sulfate (Feosol) 324 mg PO TID [facility] Last Admin: 08/12/17 17:09 Dose: 324 mg Guaifenesin (Robitussin) 200 mg PO Q4H PRN PRN Reason: Cough and congestion Last Admin: 08/05/17 22:33 Dose: 200 mg Propofol (Diprivan) 1,000 mg in 100 mls @ 2.885 mls/hr IV .Q24H PRN; Protocol; 5 MCG/KG/MIN PRN Reason: TITRATE PER MD ORDER Last Titration: 08/12/17 09:23 Dose: 0 mcg/kg/min, 0 mls/hr Aztreonam (Azactam 1 Gm) 100 mls @ 100 mls/hr IVPB Q12 [facility] PRN Reason: Protocol Last Admin: 08/12/17 21:06 Dose: 100 mls/hr Metronidazole (Flagyl) 500 mg in 100 mls @ 100 mls/hr IVPB Q8 [facility] PRN Reason: Protocol Last Admin: 08/13/17 05:26 Dose: 100 mls/hr Linezolid (Zyvox 600mg/300ml D5w) 600 mg in 300 mls @ 200 mls/hr IVPB Q12 [facility] PRN Reason: Protocol Last Admin: 08/12/17 21:06 Dose: 200 mls/hr Lactated Ringer's (Lactated Ringer's) 1,000 mls @ 100 mls/hr IV .Q10H [facility] Last Admin: 08/12/17 17:05 Dose: 100 mls/hr Fentanyl Citrate (Fentanyl Citrate/Sodium Chloride 1 Mg/100 Ml) 1,000 mcg in 100 mls @ 2 mls/hr IV .Q24H PRN; Protocol; 20 MCG/HR PRN Reason: TITRATE PER MD ORDER Last Admin: 08/12/17 21:28 Dose: 20 mcg/hr, 2 mls/hr Insulin Human Lispro (Humalog Med) 0 units SC ACHS [facility] PRN Reason: Protocol Last Admin: 08/12/17 22:14 Dose: Not Given Levothyroxine Sodium (Synthroid) 50 mcg IVP DAILY [facility] Last Admin: 08/12/17 09:29 Dose: 50 mcg Lisinopril (Zestril) 5 mg PO DAILY [facility] Last Admin: 08/06/17 09:14 Dose: 5 mg Methylprednisolone (Solu-Medrol) 40 mg IVP Q12 [facility] Last Admin: 08/12/17 21:06 Dose: 40 mg Multivitamins/Minerals (Therapeutic-M Tab) 1 tab PO 0800 [facility] Last Admin: 08/12/17 09:28 Dose: 1 tab Nystatin (Nystop Topical Powder) 1 gm TOP DAILY [facility] Last Admin: 08/12/17 09:30 Dose: 1 applic Pantoprazole Sodium (Protonix Inj) 40 mg IVP DAILY [facility] Last Admin: 08/12/17 09:29 Dose: 40 mg Sodium Bicarbonate (Sodium Bicarbonate Tab) 1,300 mg PO BID [facility] Last Admin: 08/12/17 17:10 Dose: 1,300 mg Zinc Sulfate (Zinc Sulfate 220 Mg Cap) 220 mg PO DAILY [facility] Last Admin: 08/12/17 09:27 Dose: 220 mg - Labs Labs: 08/12/17 05:50 08/12/17 05:50 PT 13.1 SECONDS (9.4-12.5) H 06/15/17 11:00 INR 1.19 (0.93-1.08) H 06/15/17 11:00 APTT 31.3 Seconds (25.1-36.5) 06/15/17 11:00 Attending/Attestation - Attestation I have personally seen and examined this patient.: Yes I have fully participated in the care of the patient.: Yes I have reviewed all pertinent clinical information, including history, physical exam and plan: Yes Notes (Text): 08/13/17 08:03 Patient was seen and examined with medical records director. 67 year old female with Respiratory failure due to hypercapnic Resp Failure due to COPD exacerbation and obesity Hypoventilation syndrome.Hypercapnia is improved, mental status is slightly improved,CT head yesterday was negative for acute stroke.Critical care is following. Patient is afebrile, blood cultures are negative for any growth, On IV antibiotics as per ID. Creatinin is mildly increased since yesterday, avoid hypotension and nephro toxic medications.Nephrology is following. Prognosis is guarded.
--- NOTE | 2017-08-12 23:34 | CP.PCM.PN ---
Subjective - Date & Time of Evaluation Date of Evaluation: 08/12/17 Time of Evaluation: 23:29 - Subjective Subjective: Infectious Disease Follow Up: August 12, 2017 67 yo female presenting with 3 weeks of RLE ulceration, swelling and leaking from the wound as well as multiple falls in the past 3 weeks. The patient has an extensive medical history of asthma, arthritis, vitamin C deficiency, and possible thyroid disease. Draining RLE ulceration... cellulitis improved/resolved. Multiple chronic medical issues. Still with persistent dry cough. Otherwise stable. Mild erythema and excoriation of the folds in the abdomen and under the breasts. UTI with Klebsiella earlier in hospitalization but had treatment with Cipro that is now completed. Social Issues. The patient had respiratory distress with no improvement from BiPAP. Patient required intubation and ventilation. Transferred to MICU for further care. The patient was started on Zyvox and Aztreonam IV. Patient had a positive C. Diff antigen but negative toxin. Remains intubated today. Appears stable. Chest X-ray not showing new findings. No leukocytosis. Cultures pending... so far negative. Patient unable to be weaned from ventilator. Supportive care. No fevers or leukocytosis. First two Procalcitonin equivocal. The patient had hypothermia ranging from 93.0 F starting from two days ago. Temperature did rise back up to 99.0 F and has been hovering around 97.7 F. Rechecking procalcitonin... now at 1.66. Difficulty from weaning from the ventilator. Patient is opening eyes and tracking now. Objective - Vital Signs/Intake and Output Vital Signs (last 24 hours): Temp Pulse Resp BP Pulse Ox 97.9 F 78 28 H 133/68 94 L 08/12/17 19:20 08/12/17 19:20 08/12/17 07:51 08/12/17 19:00 08/12/17 19:20 Intake and Output: 08/12/17 08/13/17 18:59 06:59 Intake Total 1710 Output Total 1100 Balance 610 - Medications Medications: Current Medications Albuterol/Ipratropium (Duoneb 3 Mg/0.5 Mg (3 Ml) Ud) 3 ml IH Q6 [facility] Last Admin: 08/12/17 13:40 Dose: 3 ml Albuterol/Ipratropium (Duoneb 3 Mg/0.5 Mg (3 Ml) Ud) 3 ml IH Q6 PRN PRN Reason: SOB Calcium Acetate (Phoslo) 667 mg PO TID [facility] Last Admin: 08/12/17 17:08 Dose: 667 mg Ergocalciferol (Drisdol 50,000 Intl Units Cap) 1 cap PO Q7D [facility] Last Admin: 08/12/17 17:09 Dose: 1 cap Ferrous Sulfate (Feosol) 324 mg PO TID [facility] Last Admin: 08/12/17 17:09 Dose: 324 mg Guaifenesin (Robitussin) 200 mg PO Q4H PRN PRN Reason: Cough and congestion Last Admin: 08/05/17 22:33 Dose: 200 mg Propofol (Diprivan) 1,000 mg in 100 mls @ 2.885 mls/hr IV .Q24H PRN; Protocol; 5 MCG/KG/MIN PRN Reason: TITRATE PER MD ORDER Last Titration: 08/12/17 09:23 Dose: 0 mcg/kg/min, 0 mls/hr Aztreonam (Azactam 1 Gm) 100 mls @ 100 mls/hr IVPB Q12 [facility] PRN Reason: Protocol Last Admin: 08/12/17 21:06 Dose: 100 mls/hr Metronidazole (Flagyl) 500 mg in 100 mls @ 100 mls/hr IVPB Q8 [facility] PRN Reason: Protocol Last Admin: 08/12/17 21:06 Dose: 100 mls/hr Linezolid (Zyvox 600mg/300ml D5w) 600 mg in 300 mls @ 200 mls/hr IVPB Q12 [facility] PRN Reason: Protocol Last Admin: 08/12/17 21:06 Dose: 200 mls/hr Lactated Ringer's (Lactated Ringer's) 1,000 mls @ 100 mls/hr IV .Q10H [facility] Last Admin: 08/12/17 17:05 Dose: 100 mls/hr Fentanyl Citrate (Fentanyl Citrate/Sodium Chloride 1 Mg/100 Ml) 1,000 mcg in 100 mls @ 2 mls/hr IV .Q24H PRN; Protocol; 20 MCG/HR PRN Reason: TITRATE PER MD ORDER Last Admin: 08/12/17 21:28 Dose: 20 mcg/hr, 2 mls/hr Insulin Human Lispro (Humalog Med) 0 units SC ACHS [facility] PRN Reason: Protocol Last Admin: 08/12/17 22:14 Dose: Not Given Levothyroxine Sodium (Synthroid) 50 mcg IVP DAILY [facility] Last Admin: 08/12/17 09:29 Dose: 50 mcg Lisinopril (Zestril) 5 mg PO DAILY [facility] Last Admin: 08/06/17 09:14 Dose: 5 mg Methylprednisolone (Solu-Medrol) 40 mg IVP Q12 [facility] Last Admin: 08/12/17 21:06 Dose: 40 mg Multivitamins/Minerals (Therapeutic-M Tab) 1 tab PO 0800 [facility] Last Admin: 08/12/17 09:28 Dose: 1 tab Nystatin (Nystop Topical Powder) 1 gm TOP DAILY [facility] Last Admin: 08/12/17 09:30 Dose: 1 applic Pantoprazole Sodium (Protonix Inj) 40 mg IVP DAILY [facility] Last Admin: 08/12/17 09:29 Dose: 40 mg Sodium Bicarbonate (Sodium Bicarbonate Tab) 1,300 mg PO BID [facility] Last Admin: 08/12/17 17:10 Dose: 1,300 mg Zinc Sulfate (Zinc Sulfate 220 Mg Cap) 220 mg PO DAILY [facility] Last Admin: 08/12/17 09:27 Dose: 220 mg - Labs Labs: 08/12/17 05:50 08/12/17 05:50 PT 13.1 SECONDS (9.4-12.5) H 06/15/17 11:00 INR 1.19 (0.93-1.08) H 06/15/17 11:00 APTT 31.3 Seconds (25.1-36.5) 06/15/17 11:00 - Constitutional Appears: Non-toxic, No Acute Distress, Chronically Ill - Head Exam Additional comments: intubated and ventilated. - Eye Exam Eye Exam: EOMI, PERRL Pupil Exam: NORMAL ACCOMODATION, PERRL - ENT Exam ENT Exam: Mucous Membranes Moist, Normal External Ear Exam, TM's Normal Bilaterally - Neck Exam Neck Exam: Full ROM, Normal Inspection Additional comments: intubated and ventilated. - Respiratory Exam Respiratory Exam: Clear to Ausculation Bilateral, NORMAL BREATHING PATTERN. absent: Rales, Rhonchi, Wheezes - Cardiovascular Exam Cardiovascular Exam: REGULAR RHYTHM, RRR, +S1, +S2 - GI/Abdominal Exam GI & Abdominal Exam: Soft, Normal Bowel Sounds. absent: Distended, Tenderness - Extremities Exam Extremities Exam: Full ROM, Normal Inspection - Neurological Exam Neurological Exam: Alert, Awake, CN II-XII Intact, Oriented x3 - Psychiatric Exam Additional comments: sedated. - Skin Skin Exam: Intact, Normal Color Assessment and Plan - Assessment and Plan (Free Text) Assessment: 67 yo female with multiple medical issues with PCN allergy diagnosed as a teenager verified by an Supplier Specialist. The patient with leukocytosis. Await cultures especially urine cultures. Diabetes and HTN history? Local wound care. Elevated ESR and C-reactive protein. Completed Vancomycin and Aztreonam for antibiotic coverage. UTI with E. coli sensitive to Azactam. Was on Vancomycin for cellulitis IV. For UTI for 5-7 days treatment... completed. Supportive care. Cellulitis appears improved. No new issues. Social issues currently. Homeless at this time. CT scan of chest done. No infiltrates seen. Afebrile the past 24 hours. Mild congestion noted in CT with small pulmonary effusions. No leukocytosis. Slightly elevated procalcitonin (0.66) which is undefined without stronger evidence for pneumonia. When encouraged, she is able to use the incentive spirometer without issues and ambulate with minimal difficulty. Repeat procalcitonin showing 0.71. UTI with Klebsiella. Sensitive to Cipro. Was on Cipro for 5 day course at 500mg PO BID. Completed the antibiotic course. Stable currently. No new issues. Off antibiotics at this time. Multiple social issues. Chronic cough still with periods of hacking. Complained of Vague mild general pains. Awaiting placement. Yesterday the patient developed respiratory failure and required intubation. Started on Zyvox and Aztreonam IV. Will add Flagyl as well. No leukocytosis. Noted C. Diff with positive antigen but negative toxin. Supportive care. Remains intubated and ventilated. Cultures pending. C. Diff negative to date. No leukocytosis or fever reported. Essentially clear X-ray. Hypothermia episodes most of yesterday to this morning. Noted gram positive cocci in most recent urine culture. Supportive care. Thank you for allowing me to participate in the care of the patient, we will follow with you.
[2017-08-13] MEDS: Albuterol-Ipratrop 3 mg / 0.5 (3 ml) UD IH SCH ×4 (02:40→21:46)
[2017-08-13] MEDS: metroNIDAZOLE IV 500 mg/100 ml 500 MG/100 ML BAG IVPB SCH ×2 (05:26→20:15)
[2017-08-13 08:06] LABS: ARTERIAL BLOOD GAS HCO3 23.2 mmol/L (21-28); ARTERIAL BLOOD GAS HEMOGLOBIN 9.1 g/dL (11.7-17.4); ARTERIAL BLOOD GAS O2 CAPACITY 12.7 mL/dl (16-24); ARTERIAL BLOOD GAS O2 CONTENT 12.7 ML/dl (15-23); ARTERIAL BLOOD GAS O2 SAT 100.1 % (95-98); ARTERIAL BLOOD GAS PCO2 35 mm/Hg (35-45); ARTERIAL BLOOD GAS PH 7.43 (7.35-7.45); ARTERIAL BLOOD GAS TCO2 24.3 mmol.L (22-28)
[2017-08-13 08:08] LABS: BASO # 0.01 K/mm3 (0.0-2.0); BASO % 0.1 % (0.0-3.0); EOS % 0.3 % (1.5-5.0); GRAN # 5.7 (1.4-6.5); GRAN % 75.4 % (50.0-68.0); HEMOGLOBIN 9.1 g/dL (12.0-16.0); LYMPH # 1.2 (1.2-3.4); LYMPH % 15.9 % (22.0-35.0); MEAN CELL VOLUME 79.5 fl (80.0-105.0); MEAN CORPUSCULAR HEMOGLOBIN 25.9 pg (25.0-35.0); MEAN CORPUSCULAR HGB CONC 32.6 g/dl (31.0-37.0); MEAN PLATELET VOLUME 8.9 fl (7.0-11.0); MONO # 0.6 (0.1-0.6); MONO % 8.3 % (1.0-6.0); RBC 3.51 10^6/uL (3.5-6.1); RED CELL DISTRIBUTION WIDTH 24.7 % (11.5-14.5); WHITE BLOOD COUNT 7.6 10^3/ul (4.5-11.0)
[2017-08-13 08:40] LABS: CALCIUM 6.8 mg/dL (8.4-10.5)
[2017-08-13] MEDS: Insulin Lispro (humaLOG) MEDIUM Coverage SC SCH ×4 (08:43→21:48)
[2017-08-13 08:47] LABS: ALB/GLOB RATIO 0.9 (1.1-1.8); ALBUMIN 2.9 g/dL (3.0-4.8)
[2017-08-13] MEDS: Nystatin 100,000 Units/gm Topical Pow(15 gm) TOP SCH (10:13)
[2017-08-13] MEDS: Lactated Ringer's 1,000 ML IV SCH (10:27)
--- NOTE | 2017-08-13 10:38 | RAD ---
HISTORY: intubated ET tube placement COMPARISON: 08/12/2017 FINDINGS: LUNGS: The endotracheal tube is not visualized. The patient's chin rests on the chest and obscures this area. The nasogastric tube is in satisfactory position. There is moderate vascular congestion PLEURA: No significant pleural effusion identified, no pneumothorax apparent. CARDIOVASCULAR: Normal. OSSEOUS STRUCTURES: No significant abnormalities. VISUALIZED UPPER ABDOMEN: Normal. OTHER FINDINGS: None. IMPRESSION: The endotracheal tube is not visualized. The patient's chin rests on the chest and obscures this area. The nasogastric tube is in satisfactory position. There is moderate vascular congestion
[2017-08-13] MEDS: Multivitamin With Minerals Tab PO SCH (12:21)
[2017-08-13] MEDS: Linezolid 600 mg in D5W 300 ml 600 MG/300 ML BAG IVPB SCH (12:22)
[2017-08-13] MEDS: MethylPREDNISolone 40 mg Vial IVP SCH ×2 (12:22→22:07)
[2017-08-13] MEDS: Aztreonam 1 Gm in NS 100mL 100 ML IVPB SCH ×2 (12:22→21:36)
[2017-08-13] MEDS: Levothyroxine 100 mcg (0.1 mg) Inj IVP SCH (12:25)
--- NOTE | 2017-08-13 12:41 | CP.PCM.PN ---
<Marito Rose - Last Filed: 08/13/17 12:36> Subjective - Date & Time of Evaluation Date of Evaluation: 08/13/17 Time of Evaluation: 12:36 - Subjective Subjective: Medicine progress note Patient seen and examined at bedside this morning. No acute overnight events per nursing staff. Family at bedside. ROS unavailable due to patient being intubated. Failed multiple prior weaning attempts. Likely trach on wednesday. Objective - Vital Signs/Intake and Output Vital Signs (last 24 hours): Temp Pulse Resp BP Pulse Ox 97.0 F L 85 26 H 150/77 98 08/13/17 08:30 08/13/17 08:30 08/13/17 07:17 08/13/17 08:25 08/13/17 08:30 Intake and Output: 08/13/17 08/13/17 06:59 18:59 Intake Total 1824 Output Total 1300 Balance 524 - Medications Medications: Current Medications Albuterol/Ipratropium (Duoneb 3 Mg/0.5 Mg (3 Ml) Ud) 3 ml IH Q6 COUNTS [facility]CLUDE 234 BEDS AT [facility] Last Admin: 08/13/17 07:11 Dose: 3 ml Albuterol/Ipratropium (Duoneb 3 Mg/0.5 Mg (3 Ml) Ud) 3 ml IH Q6 PRN PRN Reason: SOB Calcium Acetate (Phoslo) 667 mg PO TID COUNTS INCLUDE 234 BEDS AT THE [facility] Last Admin: 08/12/17 17:08 Dose: 667 mg Ergocalciferol (Drisdol 50,000 Intl Units Cap) 1 cap PO Q7D COUNTS INCLUDE 234 BEDS AT THE [facility] Last Admin: 08/12/17 17:09 Dose: 1 cap Ferrous Sulfate (Feosol) 324 mg PO TID COUNTS INCLUDE 234 BEDS AT THE [facility] Last Admin: 08/12/17 17:09 Dose: 324 mg Guaifenesin (Robitussin) 200 mg PO Q4H PRN PRN Reason: Cough and congestion Last Admin: 08/05/17 22:33 Dose: 200 mg Propofol (Diprivan) 1,000 mg in 100 mls @ 2.885 mls/hr IV .Q24H PRN; Protocol; 5 MCG/KG/MIN PRN Reason: TITRATE PER MD ORDER Last Titration: 08/12/17 09:23 Dose: 0 mcg/kg/min, 0 mls/hr Aztreonam (Azactam 1 Gm) 100 mls @ 100 mls/hr IVPB Q12 [facility] PRN Reason: Protocol Last Admin: 08/12/17 21:06 Dose: 100 mls/hr Metronidazole (Flagyl) 500 mg in 100 mls @ 100 mls/hr IVPB Q8 [facility] PRN Reason: Protocol Last Admin: 08/13/17 05:26 Dose: 100 mls/hr Linezolid (Zyvox 600mg/300ml D5w) 600 mg in 300 mls @ 200 mls/hr IVPB Q12 [facility] PRN Reason: Protocol Last Admin: 08/12/17 21:06 Dose: 200 mls/hr Lactated Ringer's (Lactated Ringer's) 1,000 mls @ 100 mls/hr IV .Q10H COUNTS INCLUDE 234 BEDS AT [facility] Last Admin: 08/12/17 17:05 Dose: 100 mls/hr Fentanyl Citrate (Fentanyl Citrate/Sodium Chloride 1 Mg/100 Ml) 1,000 mcg in 100 mls @ 2 mls/hr IV .Q24H PRN; Protocol; 20 MCG/HR PRN Reason: TITRATE PER MD ORDER Last Admin: 08/12/17 21:28 Dose: 20 mcg/hr, 2 mls/hr Insulin Human Lispro (Humalog Med) 0 units SC ACHS [facility] PRN Reason: Protocol Last Admin: 08/13/17 08:43 Dose: Not Given Levothyroxine Sodium (Synthroid) 50 mcg IVP DAILY COUNTS INCLUDE 234 BEDS AT [facility] Last Admin: 08/12/17 09:29 Dose: 50 mcg Lisinopril (Zestril) 5 mg PO DAILY COUNTS INCLUDE 234 BEDS AT [facility] Last Admin: 08/06/17 09:14 Dose: 5 mg Methylprednisolone (Solu-Medrol) 40 mg IVP Q12 COUNTS INCLUDE 234 BEDS AT [facility] Last Admin: 08/12/17 21:06 Dose: 40 mg Multivitamins/Minerals (Therapeutic-M Tab) 1 tab PO 0800 COUNTS INCLUDE 234 BEDS AT [facility] Last Admin: 08/12/17 09:28 Dose: 1 tab Nystatin (Nystop Topical Powder) 1 gm TOP DAILY COUNTS INCLUDE 234 BEDS AT [facility] Last Admin: 08/12/17 09:30 Dose: 1 applic Pantoprazole Sodium (Protonix Inj) 40 mg IVP DAILY COUNTS INCLUDE 234 BEDS AT [facility] Last Admin: 08/12/17 09:29 Dose: 40 mg Sodium Bicarbonate (Sodium Bicarbonate Tab) 1,300 mg PO BID COUNTS INCLUDE 234 BEDS AT [facility] Last Admin: 08/12/17 17:10 Dose: 1,300 mg Zinc Sulfate (Zinc Sulfate 220 Mg Cap) 220 mg PO DAILY [facility] Last Admin: 08/12/17 09:27 Dose: 220 mg - Labs Labs: 08/13/17 08:00 08/13/17 08:00 PT 13.1 SECONDS (9.4-12.5) H 06/15/17 11:00 INR 1.19 (0.93-1.08) H 06/15/17 11:00 APTT 31.3 Seconds (25.1-36.5) 06/15/17 11:00 - Constitutional Appears: Chronically Ill - Head Exam Head Exam: ATRAUMATIC, NORMOCEPHALIC - Eye Exam Eye Exam: EOMI, PERRL - ENT Exam ENT Exam: Mucous Membranes Moist - Respiratory Exam Respiratory Exam: absent: Rales, Rhonchi, Wheezes - Cardiovascular Exam Cardiovascular Exam: +S1, +S2. absent: Gallop, Rubs - GI/Abdominal Exam GI & Abdominal Exam: Distended, Soft. absent: Firm, Guarding, Rigid, Tenderness , Rebound - Neurological Exam Neurological Exam: Alert, Awake - Skin Skin Exam: Dry, Intact, Normal Color, Warm Assessment and Plan - Assessment and Plan (Free Text) Plan: Patient is a 67 year old female with history of asthma, arthritis, anemia, and obesity who was originally admitted for right lower extremity cellulitis and UTI. During her hospitalization course she developed acute hypercapneic respiratory failure secondary to asthma/RA airway disease/kyphoscoliosis in setting of cdiff colitis. She is currently on antibiotics with Azactam and Zyvox per ID recommendations. 1. Hypercapnic Respiratory Failure - patient is intubated and ventilated on fentanyl drip - failed CPAP trial again today - pending potential trach on Wednesday - CT head no acute findings - CXR reviewed; minimal infiltrate in Left lung base; see full reports - ABG reviewed and appreciated- pH normalizing, continue to monitor respiratory status - c/w duonebs and solumedrol and pulmicort - c/w zyvox and aztreonam- ID consulted appreciate recommendations - procal 1.49 2. Abdominal Distension - likely 2/2 Constipation/fecal impaction - CT Abdomen Pelvis with PO and IV Contrast (07/18): Interstitial and airspace disease in the lung bases; mild cardiomegaly and atherosclerotic disease; fatty liver; gallstones; possible pyelonephritis; mild ileus, no obstruction; constipation with fecal impaction - abdominal flat plate-No acute changes or findings 3. Normocytic anemia - Hemoglobins reviewed, trended, will transfuse if Hbg < 7.0 - Monitor daily 4. Cdiff colitis - rectal tube removed - Stool C diff- positive antigen, negative toxin - c/w flagyl per ID recommendations 5. Acute Kidney injury - Creatinine 3.1 from 3.5 yesterday - Nephrology consulted - Monitor and maintain MAP > 65 - Monitor Input/Output, daily weights and renal function with basic metabolic panel - supplement electrolytes as needed - Anti-GBM -, anca - has normal complements - weekly vitamin D supplements - c/w IVF hydration - hold BILLY/ARB - avoid nephrotoxic agents and renally dose medications 6. HTN - BP reviewed, trended, and appreciated - hold zestril due to CATE 7. Prophylaxis: - GI ppx Protonix - DVT ppx: Heparin Patient seen and case discussed/reviewed with attending, Dr. Liriano <Max Liriano - Last Filed: 08/13/17 16:00> Objective - Vital Signs/Intake and Output Vital Signs (last 24 hours): Temp Pulse Resp BP Pulse Ox 97.0 F L 85 26 H 150/77 98 08/13/17 08:30 08/13/17 08:30 08/13/17 07:17 08/13/17 08:25 08/13/17 08:30 Intake and Output: 08/13/17 08/13/17 06:59 18:59 Intake Total 1824 Output Total 1300 Balance 524 - Medications Medications: Current Medications Albuterol/Ipratropium (Duoneb 3 Mg/0.5 Mg (3 Ml) Ud) 3 ml IH Q6 COUNTS INCLUDE 234 BEDS AT [facility] Last Admin: 08/13/17 13:17 Dose: 3 ml Albuterol/Ipratropium (Duoneb 3 Mg/0.5 Mg (3 Ml) Ud) 3 ml IH Q6 PRN PRN Reason: SOB Calcium Acetate (Phoslo) 667 mg PO TID COUNTS INCLUDE 234 BEDS AT [facility] Last Admin: 08/13/17 12:22 Dose: 667 mg Ergocalciferol (Drisdol 50,000 Intl Units Cap) 1 cap PO Q7D COUNTS INCLUDE 234 BEDS AT [facility] Last Admin: 08/12/17 17:09 Dose: 1 cap Ferrous Sulfate (Feosol) 324 mg PO TID COUNTS INCLUDE 234 BEDS AT [facility] Last Admin: 08/13/17 12:22 Dose: 324 mg Guaifenesin (Robitussin) 200 mg PO Q4H PRN PRN Reason: Cough and congestion Last Admin: 08/05/17 22:33 Dose: 200 mg Propofol (Diprivan) 1,000 mg in 100 mls @ 2.885 mls/hr IV .Q24H PRN; Protocol; 5 MCG/KG/MIN PRN Reason: TITRATE PER MD ORDER Last Titration: 08/12/17 09:23 Dose: 0 mcg/kg/min, 0 mls/hr Aztreonam (Azactam 1 Gm) 100 mls @ 100 mls/hr IVPB Q12 COUNTS INCLUDE 234 BEDS AT THE [facility] PRN Reason: Protocol Last Admin: 08/13/17 12:22 Dose: 100 mls/hr Metronidazole (Flagyl) 500 mg in 100 mls @ 100 mls/hr IVPB Q8 COUNTS INCLUDE 234 BEDS AT THE [facility] PRN Reason: Protocol Last Admin: 08/13/17 05:26 Dose: 100 mls/hr Linezolid (Zyvox 600mg/300ml D5w) 600 mg in 300 mls @ 200 mls/hr IVPB Q12 COUNTS INCLUDE 234 BEDS AT THE [facility] PRN Reason: Protocol Last Admin: 08/13/17 12:22 Dose: 200 mls/hr Lactated Ringer's (Lactated Ringer's) 1,000 mls @ 100 mls/hr IV .Q10H COUNTS INCLUDE 234 BEDS AT THE [facility] Last Admin: 08/13/17 10:27 Dose: 100 mls/hr Fentanyl Citrate (Fentanyl Citrate/Sodium Chloride 1 Mg/100 Ml) 1,000 mcg in 100 mls @ 2 mls/hr IV .Q24H PRN; Protocol; 20 MCG/HR PRN Reason: TITRATE PER MD ORDER Last Admin: 08/12/17 21:28 Dose: 20 mcg/hr, 2 mls/hr Insulin Human Lispro (Humalog Med) 0 units SC ACHS COUNTS INCLUDE 234 BEDS AT THE [facility] PRN Reason: Protocol Last Admin: 08/13/17 11:40 Dose: Not Given Levothyroxine Sodium (Synthroid) 50 mcg IVP DAILY COUNTS INCLUDE 234 BEDS AT THE [facility] Last Admin: 08/13/17 12:25 Dose: 50 mcg Lisinopril (Zestril) 5 mg PO DAILY COUNTS INCLUDE 234 BEDS AT THE [facility] Last Admin: 08/06/17 09:14 Dose: 5 mg Methylprednisolone (Solu-Medrol) 40 mg IVP Q12 [facility] Last Admin: 08/13/17 12:22 Dose: 40 mg Multivitamins/Minerals (Therapeutic-M Tab) 1 tab PO 0800 COUNTS INCLUDE 234 BEDS AT [facility] Last Admin: 08/13/17 12:21 Dose: 1 tab Nystatin (Nystop Topical Powder) 1 gm TOP DAILY [facility] Last Admin: 08/12/17 09:30 Dose: 1 applic Pantoprazole Sodium (Protonix Inj) 40 mg IVP DAILY COUNTS INCLUDE 234 BEDS AT THE [facility] Last Admin: 08/13/17 13:02 Dose: 40 mg Sodium Bicarbonate (Sodium Bicarbonate Tab) 1,300 mg PO BID [facility] Last Admin: 08/13/17 10:55 Dose: 1,300 mg Zinc Sulfate (Zinc Sulfate 220 Mg Cap) 220 mg PO DAILY COUNTS INCLUDE 234 BEDS AT THE [facility] Last Admin: 08/13/17 12:21 Dose: 220 mg - Labs Labs: 08/13/17 08:00 08/13/17 08:00 PT 13.1 SECONDS (9.4-12.5) H 06/15/17 11:00 INR 1.19 (0.93-1.08) H 06/15/17 11:00 APTT 31.3 Seconds (25.1-36.5) 06/15/17 11:00 Attending/Attestation - Attestation I have personally seen and examined this patient.: Yes I have fully participated in the care of the patient.: Yes I have reviewed all pertinent clinical information, including history, physical exam and plan: Yes Notes (Text): 08/13/17 15:57 Patient was seen and examined with medical director/head team physician. 67 year old female with Respiratory failure due to hypercapnic Resp Failure due to COPD exacerbation and obesity Hypoventilation syndrome.Patient has failed weaning trial.Hypercapnia is improved, but mental status is still poor, Critical care is following Patient is afebrile, blood cultures are negative for any growth, On IV antibiotics as per ID for Pneumonia. Renal functions are slightly improved since yesterday , no sign of fluid overload or hyperkalmeia.Urine out is improved.Nephrology is following. Prognosis is guarded.
--- NOTE | 2017-08-13 13:19 | PN ---
DATE: 08/13/2017 SUBJECTIVE: The patient is seen and examined at bedside. She is on fentanyl 20 mcg per hour; however, responding to verbal stimuli. She failed her pressure support trial again. OBJECTIVE: VITAL SIGNS: Blood pressure 145/75, heart rate 83, respiratory rate 20, oxygen saturation 98%, and temperature 96.8. The patient is on PRVC of 350/26/5/40%. ENT: Head and neck atraumatic. LUNGS: Clear to auscultation bilaterally. HEART: Regular rate and rhythm, S1 and S2 normal. ABDOMEN: Mildly distended, soft, appears to be less distended than yesterday. MUSCULOSKELETAL: Chronic cellulitic changes in both lower extremities. SKIN: Moist. PSYCHIATRIC: The patient is following commands. LABORATORY DATA: WBC 7.6, hemoglobin 9.1, and platelet count 205. Sodium 136, potassium 3.8, chloride 104, carbon dioxide 20, BUN 51, creatinine 3.1 down from 3.5, and glucose 82. MEDICATIONS: DuoNeb p.r.n. and every 6 hours, aztreonam, PhosLo, calcium, fentanyl, vitamin D, Flagyl, lactated Ringer at 100 mL/hour, Synthroid, Solu-Medrol 40 mg IV q.12 hours, Protonix 40 mg daily, bicarb, Zyvox, and zinc. ASSESSMENT AND PLAN: This is a 67-year-old lady with ventilator-dependent respiratory failure who initially presented with hypercapnic respiratory failure, which resolved since then; however, due to combination of factors (low FRC, kyphoscoliosis, airways disease, CATE, diaphragmatic dysfunction), the patient failed to be weaned from mechanical ventilation. We will continue with protective lung ventilation strategy, tidal volume 6 to 8 mL per predicted body weight. We will avoid over ventilation and maintain I to E ratio of more than 1 to 2. We will continue with conservative fluid and oxygen management. We will continue with steroids, bronchodilators, and antibiotics. Renal function appears to be improving. The patient is making good urine and creatinine went down to 3.1 from 3.5. Nephrology and ID Service following the patient as well. We will continue with DVT and GI prophylaxis. We will continue to maintain euvolemia, euglycemia, and mean arterial pressure more than 65. We will try to re-institute enteral nutrition and recheck residual. If residual high, we will have to consider starting TPN or PPN. If ileus resolved--will consider peg. The patient is going for tracheostomy on Wednesday. Surgical team is following the patient as well. We will continue to maintain blood glucose within 140-180 range according to night sugar trial. We will continue to taper steroids. The patient is afebrile and does not have leukocytosis. She is following commands. She is on minimal sedation. ccm time 40 min Bassem Love MD JERRELL
--- NOTE | 2017-08-13 15:07 | CP.PCM.PN ---
Subjective - Date & Time of Evaluation Date of Evaluation: 08/13/17 Time of Evaluation: 15:06 - Subjective Subjective: Follow up Nephrology Consultation (covering for Dr Agustín Bai): Assessment: critical non-oliguric Acute Kidney Injury (N17.9) possibly hemodynamic, GI fluid loss leading to ATN. morbid obesity, arthritis, anemia, asthma, RAS and RA factor+ recent cellulitis, UTI, fecal impaction acute hypercapnic respi failure hypocalcemia, hyperphosphatemia, acidosis, hypokalemia vit D def Plan No acute need for renal replacement therapy at this time. UOP and creat better maintain hemodynamics stable. No ACEI/ARB due to CATE Monitor Input/Output, daily weights and renal function with basic metabolic panel continue with IVF as ordered supplement electrolytes as needed started phos binders and bicarb started weekly Vit D supplements GN w/up neg with Anti-GBM (neg), anca (neg). has normal complements Dose meds/antibiotics for reduced GFR. Avoid fleets enema/magnesium based laxatives. Avoid nephrotoxins/NSAIDs/ iodinated contrast (unless needed emergently) Glycemic control Further work up/management as per primary team Thanks for allowing me to participate in care of your patient. Will follow patient with you. Please call if any Qs. d/w team Dr Abel Pierson Office: [phone] Chief Complaint; unable to obtain reason for consult: kidney failure source of info: EMR HPI: Pt is a 67 F with hx of morbid obesity, arthritis, anemia, asthma, RAS and RA factor+ who had prolonged hospitalization for cellulitis which was treated with multiple antibiotics and also had UTI treated with antibiotics, constipation with fecal impaction, was awaiting to go to rehab but had hypercapnic respi failure 08/06/17 which required intubation. pt also having diarrhoea now. renal consulted since serum creatinine 1.6 on 08/06 and 2.6 . her serum creatinine was normal prior to that No recent iodinated contrast exposure. intermittent episodes of low BP (90/50) ROS: pt intubated Physical Examination: General Appearance: orally intubated. no distress. obese Vitals reviewed and noted as below Head; Atraumatic, normocephalic ENT: orally intubated EYES: Pupils are equal, round and reactive to light accommodation. Eye muscles and extraocular movement intact. Sclera is anicteric. Neck; supple no lymphadenopathy, no thyromegaly or bruit Lungs: Normal respiratory rate/effort. Breath sounds bilateral rales+ Heart: Normal rate. s1s2 normal. No rub or gallop. Extremities: no edema. No varicose veins Neurological: Patient is sedated Skin: Warm and dry. Normal turgor. No rash. Palpitation: Normal elasticity for age. dressing over legs + Abdomen: Abdomen is soft. Bowel sounds +. There is no abdominal tenderness, no guarding/rigidity no organomegaly. has rectal tube for diarrhoea Psych: unable MSK: no joint tenderness or swelling. Digits and nails normal, no deformity : kidney or bladder not palpable. has khanna + Labs/imaging reviewed. Past medical history, past surgical history, family history, social history, allergy reviewed and noted as below Family hx: no hx of CKD. Rest non-contributory work up: renal sono: neg Urine Na 88 FeNa2.1% urine eos neg normal complements Objective - Vital Signs/Intake and Output Vital Signs (last 24 hours): Temp Pulse Resp BP Pulse Ox 97.0 F L 85 26 H 150/77 98 08/13/17 08:30 08/13/17 08:30 08/13/17 07:17 08/13/17 08:25 08/13/17 08:30 Intake and Output: 08/13/17 08/13/17 06:59 18:59 Intake Total 1824 Output Total 1300 Balance 524 - Medications Medications: Current Medications Albuterol/Ipratropium (Duoneb 3 Mg/0.5 Mg (3 Ml) Ud) 3 ml IH Q6 [facility] Last Admin: 08/13/17 13:17 Dose: 3 ml Albuterol/Ipratropium (Duoneb 3 Mg/0.5 Mg (3 Ml) Ud) 3 ml IH Q6 PRN PRN Reason: SOB Calcium Acetate (Phoslo) 667 mg PO TID [facility] Last Admin: 08/13/17 12:22 Dose: 667 mg Ergocalciferol (Drisdol 50,000 Intl Units Cap) 1 cap PO Q7D [facility] Last Admin: 08/12/17 17:09 Dose: 1 cap Ferrous Sulfate (Feosol) 324 mg PO TID [facility] Last Admin: 08/13/17 12:22 Dose: 324 mg Guaifenesin (Robitussin) 200 mg PO Q4H PRN PRN Reason: Cough and congestion Last Admin: 08/05/17 22:33 Dose: 200 mg Propofol (Diprivan) 1,000 mg in 100 mls @ 2.885 mls/hr IV .Q24H PRN; Protocol; 5 MCG/KG/MIN PRN Reason: TITRATE PER MD ORDER Last Titration: 08/12/17 09:23 Dose: 0 mcg/kg/min, 0 mls/hr Aztreonam (Azactam 1 Gm) 100 mls @ 100 mls/hr IVPB Q12 [facility] PRN Reason: Protocol Last Admin: 08/13/17 12:22 Dose: 100 mls/hr Metronidazole (Flagyl) 500 mg in 100 mls @ 100 mls/hr IVPB Q8 [facility] PRN Reason: Protocol Last Admin: 08/13/17 05:26 Dose: 100 mls/hr Linezolid (Zyvox 600mg/300ml D5w) 600 mg in 300 mls @ 200 mls/hr IVPB Q12 [facility] PRN Reason: Protocol Last Admin: 08/13/17 12:22 Dose: 200 mls/hr Lactated Ringer's (Lactated Ringer's) 1,000 mls @ 100 mls/hr IV .Q10H [facility] Last Admin: 08/13/17 10:27 Dose: 100 mls/hr Fentanyl Citrate (Fentanyl Citrate/Sodium Chloride 1 Mg/100 Ml) 1,000 mcg in 100 mls @ 2 mls/hr IV .Q24H PRN; Protocol; 20 MCG/HR PRN Reason: TITRATE PER MD ORDER Last Admin: 08/12/17 21:28 Dose: 20 mcg/hr, 2 mls/hr Insulin Human Lispro (Humalog Med) 0 units SC ACHS [facility] PRN Reason: Protocol Last Admin: 08/13/17 11:40 Dose: Not Given Levothyroxine Sodium (Synthroid) 50 mcg IVP DAILY [facility] Last Admin: 08/13/17 12:25 Dose: 50 mcg Lisinopril (Zestril) 5 mg PO DAILY [facility] Last Admin: 08/06/17 09:14 Dose: 5 mg Methylprednisolone (Solu-Medrol) 40 mg IVP Q12 [facility] Last Admin: 08/13/17 12:22 Dose: 40 mg Multivitamins/Minerals (Therapeutic-M Tab) 1 tab PO 0800 [facility] Last Admin: 08/13/17 12:21 Dose: 1 tab Nystatin (Nystop Topical Powder) 1 gm TOP DAILY [facility] Last Admin: 08/12/17 09:30 Dose: 1 applic Pantoprazole Sodium (Protonix Inj) 40 mg IVP DAILY [facility] Last Admin: 08/13/17 13:02 Dose: 40 mg Sodium Bicarbonate (Sodium Bicarbonate Tab) 1,300 mg PO BID [facility] Last Admin: 08/13/17 10:55 Dose: 1,300 mg Zinc Sulfate (Zinc Sulfate 220 Mg Cap) 220 mg PO DAILY [facility] Last Admin: 08/13/17 12:21 Dose: 220 mg - Labs Labs: 08/13/17 08:00 08/13/17 08:00 PT 13.1 SECONDS (9.4-12.5) H 06/15/17 11:00 INR 1.19 (0.93-1.08) H 06/15/17 11:00 APTT 31.3 Seconds (25.1-36.5) 06/15/17 11:00
--- NOTE | 2017-08-13 21:32 | CP.PCM.PN ---
Subjective - Date & Time of Evaluation Date of Evaluation: 08/13/17 Time of Evaluation: 21:28 - Subjective Subjective: Infectious Disease Follow Up: August 13, 2017 67 yo female presenting with 3 weeks of RLE ulceration, swelling and leaking from the wound as well as multiple falls in the past 3 weeks. The patient has an extensive medical history of asthma, arthritis, vitamin C deficiency, and possible thyroid disease. Draining RLE ulceration... cellulitis improved/resolved. Multiple chronic medical issues. Still with persistent dry cough. Otherwise stable. Mild erythema and excoriation of the folds in the abdomen and under the breasts. UTI with Klebsiella earlier in hospitalization but had treatment with Cipro that is now completed. Social Issues. The patient had respiratory distress with no improvement from BiPAP. Patient required intubation and ventilation. Transferred to MICU for further care. The patient was started on Zyvox and Aztreonam IV. Patient had a positive C. Diff antigen but negative toxin. Remains intubated today. Appears stable. Chest X-ray not showing new findings. No leukocytosis. Cultures pending... so far negative. Patient unable to be weaned from ventilator. Supportive care. No fevers or leukocytosis. First two Procalcitonin equivocal. The patient had hypothermia ranging from 93.0 F starting from two days ago. Temperature did rise back up to 99.0 F and has been hovering around 97.7 F. Rechecking procalcitonin... now at 1.66. Difficulty from weaning from the ventilator. Patient is opening eyes and tracking now. Objective - Vital Signs/Intake and Output Vital Signs (last 24 hours): Temp Pulse Resp BP Pulse Ox 97.0 F L 78 26 H 150/77 98 08/13/17 08:30 08/13/17 18:00 08/13/17 07:17 08/13/17 08:25 08/13/17 08:30 Intake and Output: 08/13/17 08/14/17 18:59 06:59 Intake Total 1360 Output Total 1700 Balance -340 - Medications Medications: Current Medications Albuterol/Ipratropium (Duoneb 3 Mg/0.5 Mg (3 Ml) Ud) 3 ml IH Q6 [facility] Last Admin: 08/13/17 13:17 Dose: 3 ml Albuterol/Ipratropium (Duoneb 3 Mg/0.5 Mg (3 Ml) Ud) 3 ml IH Q6 PRN PRN Reason: SOB Calcium Acetate (Phoslo) 667 mg PO TID [facility] Last Admin: 08/13/17 18:11 Dose: 667 mg Ergocalciferol (Drisdol 50,000 Intl Units Cap) 1 cap PO Q7D [facility] Last Admin: 08/12/17 17:09 Dose: 1 cap Ferrous Sulfate (Feosol) 324 mg PO TID [facility] Last Admin: 08/13/17 18:11 Dose: 324 mg Guaifenesin (Robitussin) 200 mg PO Q4H PRN PRN Reason: Cough and congestion Last Admin: 08/05/17 22:33 Dose: 200 mg Propofol (Diprivan) 1,000 mg in 100 mls @ 2.885 mls/hr IV .Q24H PRN; Protocol; 5 MCG/KG/MIN PRN Reason: TITRATE PER MD ORDER Last Titration: 08/12/17 09:23 Dose: 0 mcg/kg/min, 0 mls/hr Aztreonam (Azactam 1 Gm) 100 mls @ 100 mls/hr IVPB Q12 [facility] PRN Reason: Protocol Last Admin: 08/13/17 12:22 Dose: 100 mls/hr Linezolid (Zyvox 600mg/300ml D5w) 600 mg in 300 mls @ 200 mls/hr IVPB Q12 [facility] PRN Reason: Protocol Last Admin: 08/13/17 12:22 Dose: 200 mls/hr Lactated Ringer's (Lactated Ringer's) 1,000 mls @ 100 mls/hr IV .Q10H [facility] Last Admin: 08/13/17 10:27 Dose: 100 mls/hr Fentanyl Citrate (Fentanyl Citrate/Sodium Chloride 1 Mg/100 Ml) 1,000 mcg in 100 mls @ 2 mls/hr IV .Q24H PRN; Protocol; 20 MCG/HR PRN Reason: TITRATE PER MD ORDER Last Admin: 08/12/17 21:28 Dose: 20 mcg/hr, 2 mls/hr Insulin Human Lispro (Humalog Med) 0 units SC ACHS [facility] PRN Reason: Protocol Last Admin: 08/13/17 17:46 Dose: Not Given Levothyroxine Sodium (Synthroid) 50 mcg IVP DAILY [facility] Last Admin: 08/13/17 12:25 Dose: 50 mcg Lisinopril (Zestril) 5 mg PO DAILY [facility] Last Admin: 08/06/17 09:14 Dose: 5 mg Methylprednisolone (Solu-Medrol) 40 mg IVP Q12 [facility] Last Admin: 08/13/17 12:22 Dose: 40 mg Multivitamins/Minerals (Therapeutic-M Tab) 1 tab PO 0800 [facility] Last Admin: 08/13/17 12:21 Dose: 1 tab Nystatin (Nystop Topical Powder) 1 gm TOP DAILY [facility] Last Admin: 08/13/17 10:13 Dose: 1 applic Pantoprazole Sodium (Protonix Inj) 40 mg IVP DAILY [facility] Last Admin: 08/13/17 13:02 Dose: 40 mg Sodium Bicarbonate (Sodium Bicarbonate Tab) 1,300 mg PO BID [facility] Last Admin: 08/13/17 20:17 Dose: 1,300 mg Zinc Sulfate (Zinc Sulfate 220 Mg Cap) 220 mg PO DAILY [facility] Last Admin: 08/13/17 12:21 Dose: 220 mg - Labs Labs: 08/13/17 08:00 08/13/17 08:00 PT 13.1 SECONDS (9.4-12.5) H 06/15/17 11:00 INR 1.19 (0.93-1.08) H 06/15/17 11:00 APTT 31.3 Seconds (25.1-36.5) 06/15/17 11:00 - Constitutional Appears: Non-toxic, No Acute Distress, Chronically Ill - Head Exam Additional comments: intubated and ventilated - Eye Exam Eye Exam: EOMI, PERRL Pupil Exam: NORMAL ACCOMODATION, PERRL - ENT Exam ENT Exam: Mucous Membranes Moist, Normal External Ear Exam, TM's Normal Bilaterally - Neck Exam Additional comments: intubated and ventilated. - Respiratory Exam Respiratory Exam: Clear to Ausculation Bilateral, NORMAL BREATHING PATTERN. absent: Rales, Rhonchi, Wheezes - Cardiovascular Exam Cardiovascular Exam: REGULAR RHYTHM, RRR, +S1, +S2 - GI/Abdominal Exam GI & Abdominal Exam: Soft, Normal Bowel Sounds. absent: Distended, Tenderness - Extremities Exam Extremities Exam: Full ROM, Normal Inspection - Neurological Exam Neurological Exam: Alert, Awake, CN II-XII Intact, Oriented x3 - Psychiatric Exam Additional comments: sedated - Skin Skin Exam: Intact, Normal Color Assessment and Plan - Assessment and Plan (Free Text) Assessment: 67 yo female with multiple medical issues with PCN allergy diagnosed as a teenager verified by an Day Care Supervisor. The patient with leukocytosis. Await cultures especially urine cultures. Diabetes and HTN history? Local wound care. Elevated ESR and C-reactive protein. Completed Vancomycin and Aztreonam for antibiotic coverage. UTI with E. coli sensitive to Azactam. Was on Vancomycin for cellulitis IV. For UTI for 5-7 days treatment... completed. Supportive care. Cellulitis appears improved. No new issues. Social issues currently. Homeless at this time. CT scan of chest done. No infiltrates seen. Afebrile the past 24 hours. Mild congestion noted in CT with small pulmonary effusions. No leukocytosis. Slightly elevated procalcitonin (0.66) which is undefined without stronger evidence for pneumonia. When encouraged, she is able to use the incentive spirometer without issues and ambulate with minimal difficulty. Repeat procalcitonin showing 0.71. UTI with Klebsiella. Sensitive to Cipro. Was on Cipro for 5 day course at 500mg PO BID. Completed the antibiotic course. Stable currently. No new issues. Off antibiotics at this time. Multiple social issues. Chronic cough still with periods of hacking. Complained of Vague mild general pains. Awaiting placement. Yesterday the patient developed respiratory failure and required intubation. Started on Zyvox and Aztreonam IV. Will add Flagyl as well. No leukocytosis. Noted C. Diff with positive antigen but negative toxin. Supportive care. Remains intubated and ventilated. Cultures pending. C. Diff negative to date. No leukocytosis or fever reported. Essentially clear X-ray. Hypothermia episodes most of yesterday to this morning. Noted gram positive cocci in most recent urine culture. Still awaiting identification. Supportive care. Thank you for allowing me to participate in the care of the patient, we will follow with you.
[2017-08-14] MEDS: Linezolid 600 mg in D5W 300 ml 600 MG/300 ML BAG IVPB SCH (00:55)
[2017-08-14] MEDS: Lactated Ringer's 1,000 ML IV SCH ×2 (04:44→13:30)
[2017-08-14 05:52] LABS: ALBUMIN 2.9 g/dL (3.0-4.8)
[2017-08-14 05:59] LABS: HEMOGLOBIN 9.1 g/dL (12.0-16.0); MEAN CELL VOLUME 79.9 fl (80.0-105.0); MEAN CORPUSCULAR HEMOGLOBIN 26.1 pg (25.0-35.0); MEAN CORPUSCULAR HGB CONC 32.7 g/dl (31.0-37.0); RBC 3.48 10^6/uL (3.5-6.1); RED CELL DISTRIBUTION WIDTH 25.8 % (11.5-14.5); WHITE BLOOD COUNT 8.1 10^3/ul (4.5-11.0)
[2017-08-14 06:00] LABS: BASO # 0.01 K/mm3 (0.0-2.0); BASO % 0.1 % (0.0-3.0); EOS # 0.1 (0.0-0.7); EOS % 0.9 % (1.5-5.0); GRAN # 6.86 (1.4-6.5); GRAN % 84.2 % (50.0-68.0); LYMPH # 0.7 (1.2-3.4); LYMPH % 8.4 % (22.0-35.0); MEAN PLATELET VOLUME 9.2 fl (7.0-11.0); MONO # 0.5 (0.1-0.6); MONO % 6.4 % (1.0-6.0)
[2017-08-14] MEDS: Insulin Lispro (humaLOG) MEDIUM Coverage SC SCH ×3 (08:12→18:05)
[2017-08-14] MEDS: Albuterol-Ipratrop 3 mg / 0.5 (3 ml) UD IH SCH ×4 (08:44→21:36)
[2017-08-14] MEDS ORDERED: Potassium Chloride 40 mEq/30 ml LIQ UD PO ONE (08:46)
[2017-08-14] MEDS: Aztreonam 1 Gm in NS 100mL 100 ML IVPB SCH ×2 (10:21→22:43)
[2017-08-14] MEDS: MethylPREDNISolone 40 mg Vial IVP SCH ×2 (10:24→22:34)
[2017-08-14] MEDS: Multivitamin With Minerals Tab PO SCH (10:24)
[2017-08-14] MEDS: Levothyroxine 100 mcg (0.1 mg) Inj IVP SCH (10:24)
--- NOTE | 2017-08-14 10:35 | CP.PCM.PN ---
Addendum entered and electronically signed by Shan Zepeda DO 08/14/17 10:36: 8. Hypokalemia -K 3.5, repleted , continue to monitor Original Note: <Shan Zepeda - Last Filed: 08/14/17 10:35> Subjective - Date & Time of Evaluation Date of Evaluation: 08/14/17 Time of Evaluation: 06:00 - Subjective Subjective: Patient seen and examined at bedside this morning. No acute overnight events per nursing staff. ROS unobtainable due intubated status. Objective - Vital Signs/Intake and Output Vital Signs (last 24 hours): Temp Pulse Resp BP Pulse Ox 97.8 F 70 26 H 143/65 97 08/14/17 04:00 08/14/17 03:00 08/13/17 07:17 08/14/17 03:00 08/14/17 03:00 Intake and Output: 08/14/17 08/14/17 06:59 18:59 Intake Total 3164 Output Total 3300 Balance -136 - Medications Medications: Current Medications Albuterol/Ipratropium (Duoneb 3 Mg/0.5 Mg (3 Ml) Ud) 3 ml IH Q6 [facility] Last Admin: 08/14/17 08:44 Dose: 3 ml Albuterol/Ipratropium (Duoneb 3 Mg/0.5 Mg (3 Ml) Ud) 3 ml IH Q6 PRN PRN Reason: SOB Calcium Acetate (Phoslo) 667 mg PO TID [facility] Last Admin: 08/14/17 10:23 Dose: 667 mg Ergocalciferol (Drisdol 50,000 Intl Units Cap) 1 cap PO Q7D [facility] Last Admin: 08/12/17 17:09 Dose: 1 cap Ferrous Sulfate (Feosol) 324 mg PO TID [facility] Last Admin: 08/14/17 10:22 Dose: 324 mg Propofol (Diprivan) 1,000 mg in 100 mls @ 2.885 mls/hr IV .Q24H PRN; Protocol; 5 MCG/KG/MIN PRN Reason: TITRATE PER MD ORDER Last Titration: 08/12/17 09:23 Dose: 0 mcg/kg/min, 0 mls/hr Aztreonam (Azactam 1 Gm) 100 mls @ 100 mls/hr IVPB Q12 [facility] PRN Reason: Protocol Last Admin: 08/14/17 10:21 Dose: 100 mls/hr Lactated Ringer's (Lactated Ringer's) 1,000 mls @ 100 mls/hr IV .Q10H [facility] Last Admin: 08/14/17 04:44 Dose: 100 mls/hr Fentanyl Citrate (Fentanyl Citrate/Sodium Chloride 1 Mg/100 Ml) 1,000 mcg in 100 mls @ 2 mls/hr IV .Q24H PRN; Protocol; 20 MCG/HR PRN Reason: TITRATE PER MD ORDER Last Admin: 08/12/17 21:28 Dose: 20 mcg/hr, 2 mls/hr Insulin Human Lispro (Humalog Med) 0 units SC ACHS [facility] PRN Reason: Protocol Last Admin: 08/14/17 08:12 Dose: Not Given Levothyroxine Sodium (Synthroid) 50 mcg IVP DAILY [facility] Last Admin: 08/14/17 10:24 Dose: 50 mcg Lisinopril (Zestril) 5 mg PO DAILY [facility] Last Admin: 08/06/17 09:14 Dose: 5 mg Methylprednisolone (Solu-Medrol) 40 mg IVP Q12 [facility] Last Admin: 08/14/17 10:24 Dose: 40 mg Multivitamins/Minerals (Therapeutic-M Tab) 1 tab PO 0800 [facility] Last Admin: 08/14/17 10:24 Dose: 1 tab Pantoprazole Sodium (Protonix Inj) 40 mg IVP DAILY [facility] Last Admin: 08/14/17 10:23 Dose: 40 mg Sodium Bicarbonate (Sodium Bicarbonate Tab) 1,300 mg PO BID [facility] Last Admin: 08/14/17 10:23 Dose: 1,300 mg Zinc Sulfate (Zinc Sulfate 220 Mg Cap) 220 mg PO DAILY [facility] Last Admin: 08/14/17 10:24 Dose: 220 mg - Labs Labs: 08/14/17 05:00 08/14/17 05:00 PT 13.1 SECONDS (9.4-12.5) H 06/15/17 11:00 INR 1.19 (0.93-1.08) H 06/15/17 11:00 APTT 31.3 Seconds (25.1-36.5) 06/15/17 11:00 - Constitutional Appears: Chronically Ill - Head Exam Head Exam: ATRAUMATIC, NORMOCEPHALIC - Eye Exam Eye Exam: EOMI, PERRL Pupil Exam: NORMAL ACCOMODATION - ENT Exam ENT Exam: Mucous Membranes Moist - Respiratory Exam Respiratory Exam: NORMAL BREATHING PATTERN - Cardiovascular Exam Cardiovascular Exam: REGULAR RHYTHM, +S1, +S2 - GI/Abdominal Exam GI & Abdominal Exam: Distended, Soft - Neurological Exam Neurological Exam: Awake Assessment and Plan - Assessment and Plan (Free Text) Assessment: Patient is a 67 year old female with history of asthma, arthritis, anemia, and obesity who was originally admitted for right lower extremity cellulitis and UTI. During her hospitalization course she developed acute hypercapneic respiratory failure secondary to asthma/RA airway disease/kyphoscoliosis in setting of cdiff colitis. She is currently on antibiotics with Azactam and Zyvox per ID recommendations. Plan: 1. Hypercapnic Respiratory Failure - patient is intubated and ventilated on fentanyl drip - will perform another CPAP trial - pending potential trach on Wednesday - CT head no acute findings - CXR reviewed; minimal infiltrate in Left lung base; see full reports - ABG reviewed and appreciated- pH normalizing, continue to monitor respiratory status - c/w duonebs and solumedrol and pulmicort - c/w zyvox and aztreonam- ID consulted appreciate recommendations - procal 1.49 2. Abdominal Distension - likely 2/2 Constipation/fecal impaction - CT Abdomen Pelvis with PO and IV Contrast (07/18): Interstitial and airspace disease in the lung bases; mild cardiomegaly and atherosclerotic disease; fatty liver; gallstones; possible pyelonephritis; mild ileus, no obstruction; constipation with fecal impaction - abdominal flat plate-No acute changes or findings -tube feeding, will increase 10ml per shift 3. Normocytic anemia - Hemoglobins reviewed, trended, will transfuse if Hbg < 7.0 - Monitor daily 4. Cdiff colitis - rectal tube removed - Stool C diff- positive antigen, negative toxin - c/w flagyl per ID recommendations 5. Acute Kidney injury - Creatinine 2.9 from 3.1 yesterday - Nephrology consulted - Monitor and maintain MAP > 65 - Monitor Input/Output, daily weights and renal function with basic metabolic panel - supplement electrolytes as needed - Anti-GBM -, anca - has normal complements - weekly vitamin D supplements - c/w IVF hydration - hold BILLY/ARB - avoid nephrotoxic agents and renally dose medications -urine output 1800, improving 6. HTN - BP reviewed, trended, and appreciated - hold zestril due to CATE 7. Prophylaxis: - GI ppx Protonix - DVT ppx: Heparin <Max Liriano - Last Filed: 08/14/17 17:36> Objective - Vital Signs/Intake and Output Vital Signs (last 24 hours): Temp Pulse Resp BP Pulse Ox 97.6 F 74 26 H 143/65 100 08/14/17 12:00 08/14/17 14:00 08/14/17 07:55 08/14/17 03:00 08/14/17 07:55 Intake and Output: 08/14/17 08/14/17 06:59 18:59 Intake Total 3164 Output Total 3300 Balance -136 - Medications Medications: Current Medications Albuterol/Ipratropium (Duoneb 3 Mg/0.5 Mg (3 Ml) Ud) 3 ml IH Q6 [facility] Last Admin: 08/14/17 14:06 Dose: 3 ml Albuterol/Ipratropium (Duoneb 3 Mg/0.5 Mg (3 Ml) Ud) 3 ml IH Q6 PRN PRN Reason: SOB Calcium Acetate (Phoslo) 667 mg PO TID [facility] Last Admin: 08/14/17 13:36 Dose: 667 mg Ergocalciferol (Drisdol 50,000 Intl Units Cap) 1 cap PO Q7D [facility] Last Admin: 08/12/17 17:09 Dose: 1 cap Ferrous Sulfate (Feosol) 324 mg PO TID [facility] Last Admin: 08/14/17 13:37 Dose: 324 mg Propofol (Diprivan) 1,000 mg in 100 mls @ 2.885 mls/hr IV .Q24H PRN; Protocol; 5 MCG/KG/MIN PRN Reason: TITRATE PER MD ORDER Last Titration: 08/12/17 09:23 Dose: 0 mcg/kg/min, 0 mls/hr Aztreonam (Azactam 1 Gm) 100 mls @ 100 mls/hr IVPB Q12 [facility] PRN Reason: Protocol Last Admin: 08/14/17 10:21 Dose: 100 mls/hr Lactated Ringer's (Lactated Ringer's) 1,000 mls @ 100 mls/hr IV .Q10H [facility] Last Admin: 08/14/17 13:30 Dose: 100 mls/hr Fentanyl Citrate (Fentanyl Citrate/Sodium Chloride 1 Mg/100 Ml) 1,000 mcg in 100 mls @ 2 mls/hr IV .Q24H PRN; Protocol; 20 MCG/HR PRN Reason: TITRATE PER MD ORDER Last Admin: 08/12/17 21:28 Dose: 20 mcg/hr, 2 mls/hr Insulin Human Lispro (Humalog Med) 0 units SC ACHS [facility] PRN Reason: Protocol Last Admin: 08/14/17 12:11 Dose: Not Given Levothyroxine Sodium (Synthroid) 50 mcg IVP DAILY [facility] Last Admin: 08/14/17 10:24 Dose: 50 mcg Lisinopril (Zestril) 5 mg PO DAILY [facility] Last Admin: 08/06/17 09:14 Dose: 5 mg Methylprednisolone (Solu-Medrol) 40 mg IVP Q12 [facility] Last Admin: 08/14/17 10:24 Dose: 40 mg Multivitamins/Minerals (Therapeutic-M Tab) 1 tab PO 0800 [facility] Last Admin: 08/14/17 10:24 Dose: 1 tab Pantoprazole Sodium (Protonix Inj) 40 mg IVP DAILY [facility] Last Admin: 08/14/17 10:23 Dose: 40 mg Sodium Bicarbonate (Sodium Bicarbonate Tab) 1,300 mg PO BID [facility] Last Admin: 08/14/17 10:23 Dose: 1,300 mg Zinc Sulfate (Zinc Sulfate 220 Mg Cap) 220 mg PO DAILY [facility] Last Admin: 08/14/17 10:24 Dose: 220 mg - Labs Labs: 08/14/17 05:00 08/14/17 05:00 PT 13.1 SECONDS (9.4-12.5) H 06/15/17 11:00 INR 1.19 (0.93-1.08) H 06/15/17 11:00 APTT 31.3 Seconds (25.1-36.5) 06/15/17 11:00 Attending/Attestation - Attestation I have personally seen and examined this patient.: Yes I have fully participated in the care of the patient.: Yes I have reviewed all pertinent clinical information, including history, physical exam and plan: Yes Notes (Text): 08/14/17 17:34 Patient was seen and examined with medical equipment repairer. 67 year old female with Respiratory failure due to hypercapnic Resp Failure due to COPD exacerbation and obesity Hypoventilation syndrome.Patient has failed weaning trial.Hypercapnia is improved, Mental status is better today.Patient is following command today, Critical care is following. Patient is afebrile, blood cultures are negative for any growth, On IV antibiotics as per ID for Pneumonia. Renal functions are slightly improving, had good urine out last night.Creatinin is improved to 2.9 Diarrhea has resolved, on treatment for C diff colitis. Prognosis is guarded.
[2017-08-14] MEDS: Fentanyl 1000mcg/100ml NS 1,000 MCG/100 ML BAG IV PRN (18:26)
--- NOTE | 2017-08-14 18:36 | CP.PCM.PN ---
Subjective - Date & Time of Evaluation Date of Evaluation: 08/14/17 Time of Evaluation: 17:00 - Subjective Subjective: Infectious Disease Follow Up: August 14, 2017 67 yo female presenting with 3 weeks of RLE ulceration, swelling and leaking from the wound as well as multiple falls in the past 3 weeks. The patient has an extensive medical history of asthma, arthritis, vitamin C deficiency, and possible thyroid disease. Draining RLE ulceration... cellulitis improved/resolved. Multiple chronic medical issues. Still with persistent dry cough. Otherwise stable. Mild erythema and excoriation of the folds in the abdomen and under the breasts. UTI with Klebsiella earlier in hospitalization but had treatment with Cipro that is now completed. Social Issues. The patient had respiratory distress with no improvement from BiPAP. Patient required intubation and ventilation. Transferred to MICU for further care. The patient was started on Zyvox and Aztreonam IV. Patient had a positive C. Diff antigen but negative toxin. Remains intubated today. Appears stable. Chest X-ray not showing new findings. No leukocytosis. Cultures pending... so far negative. Patient unable to be weaned from ventilator. Supportive care. No fevers or leukocytosis. First two Procalcitonin equivocal. The patient had hypothermia ranging from 93.0 F starting from two days ago. Temperature did rise back up to 99.0 F and has been hovering around 97.7 F. Rechecking procalcitonin... now at 1.66. Difficulty from weaning from the ventilator. Patient is opening eyes and tracking now. Objective - Vital Signs/Intake and Output Vital Signs (last 24 hours): Temp Pulse Resp BP Pulse Ox 97.6 F 74 26 H 143/65 100 08/14/17 12:00 08/14/17 14:00 08/14/17 07:55 08/14/17 03:00 08/14/17 07:55 Intake and Output: 08/14/17 08/14/17 06:59 18:59 Intake Total 3164 Output Total 3300 Balance -136 - Medications Medications: Current Medications Albuterol/Ipratropium (Duoneb 3 Mg/0.5 Mg (3 Ml) Ud) 3 ml IH Q6 [facility] Last Admin: 08/14/17 14:06 Dose: 3 ml Albuterol/Ipratropium (Duoneb 3 Mg/0.5 Mg (3 Ml) Ud) 3 ml IH Q6 PRN PRN Reason: SOB Calcium Acetate (Phoslo) 667 mg PO TID [facility] Last Admin: 08/14/17 17:50 Dose: 667 mg Ergocalciferol (Drisdol 50,000 Intl Units Cap) 1 cap PO Q7D [facility] Last Admin: 08/12/17 17:09 Dose: 1 cap Ferrous Sulfate (Feosol) 324 mg PO TID [facility] Last Admin: 08/14/17 17:50 Dose: 324 mg Propofol (Diprivan) 1,000 mg in 100 mls @ 2.885 mls/hr IV .Q24H PRN; Protocol; 5 MCG/KG/MIN PRN Reason: TITRATE PER MD ORDER Last Titration: 08/12/17 09:23 Dose: 0 mcg/kg/min, 0 mls/hr Aztreonam (Azactam 1 Gm) 100 mls @ 100 mls/hr IVPB Q12 [facility] PRN Reason: Protocol Last Admin: 08/14/17 10:21 Dose: 100 mls/hr Lactated Ringer's (Lactated Ringer's) 1,000 mls @ 100 mls/hr IV .Q10H [facility] Last Admin: 08/14/17 13:30 Dose: 100 mls/hr Fentanyl Citrate (Fentanyl Citrate/Sodium Chloride 1 Mg/100 Ml) 1,000 mcg in 100 mls @ 2 mls/hr IV .Q24H PRN; Protocol; 20 MCG/HR PRN Reason: TITRATE PER MD ORDER Last Admin: 08/12/17 21:28 Dose: 20 mcg/hr, 2 mls/hr Insulin Human Lispro (Humalog Med) 0 units SC Q6H [facility] PRN Reason: Protocol Last Admin: 08/14/17 18:05 Dose: Not Given Levothyroxine Sodium (Synthroid) 50 mcg IVP DAILY [facility] Last Admin: 08/14/17 10:24 Dose: 50 mcg Lisinopril (Zestril) 5 mg PO DAILY [facility] Last Admin: 08/06/17 09:14 Dose: 5 mg Methylprednisolone (Solu-Medrol) 40 mg IVP Q12 [facility] Last Admin: 08/14/17 10:24 Dose: 40 mg Multivitamins/Minerals (Therapeutic-M Tab) 1 tab PO 0800 [facility] Last Admin: 08/14/17 10:24 Dose: 1 tab Pantoprazole Sodium (Protonix Inj) 40 mg IVP DAILY [facility] Last Admin: 08/14/17 10:23 Dose: 40 mg Sodium Bicarbonate (Sodium Bicarbonate Tab) 1,300 mg PO BID [facility] Last Admin: 08/14/17 17:50 Dose: 1,300 mg Zinc Sulfate (Zinc Sulfate 220 Mg Cap) 220 mg PO DAILY [facility] Last Admin: 08/14/17 10:24 Dose: 220 mg - Labs Labs: 08/14/17 05:00 08/14/17 05:00 PT 13.1 SECONDS (9.4-12.5) H 06/15/17 11:00 INR 1.19 (0.93-1.08) H 06/15/17 11:00 APTT 31.3 Seconds (25.1-36.5) 06/15/17 11:00 - Constitutional Appears: Non-toxic, No Acute Distress, Chronically Ill - Head Exam Additional comments: intubated and ventilated. - Eye Exam Eye Exam: EOMI, PERRL Pupil Exam: NORMAL ACCOMODATION, PERRL - ENT Exam ENT Exam: Mucous Membranes Moist, Normal External Ear Exam, TM's Normal Bilaterally - Neck Exam Additional comments: intubated and ventilated. - Respiratory Exam Respiratory Exam: Clear to Ausculation Bilateral, NORMAL BREATHING PATTERN. absent: Rales, Rhonchi, Wheezes - Cardiovascular Exam Cardiovascular Exam: REGULAR RHYTHM, RRR, +S1, +S2 - GI/Abdominal Exam GI & Abdominal Exam: Soft, Normal Bowel Sounds. absent: Distended, Tenderness - Extremities Exam Extremities Exam: Full ROM, Normal Inspection - Neurological Exam Neurological Exam: Alert, Awake, CN II-XII Intact, Oriented x3 - Skin Skin Exam: Intact, Normal Color Assessment and Plan - Assessment and Plan (Free Text) Assessment: 67 yo female with multiple medical issues with PCN allergy diagnosed as a teenager verified by an Residential Sales Consultant. The patient with leukocytosis. Await cultures especially urine cultures. Diabetes and HTN history? Local wound care. Elevated ESR and C-reactive protein. Completed Vancomycin and Aztreonam for antibiotic coverage. UTI with E. coli sensitive to Azactam. Was on Vancomycin for cellulitis IV. For UTI for 5-7 days treatment... completed. Supportive care. Cellulitis appears improved. No new issues. Social issues currently. Homeless at this time. CT scan of chest done. No infiltrates seen. Afebrile the past 24 hours. Mild congestion noted in CT with small pulmonary effusions. No leukocytosis. Slightly elevated procalcitonin (0.66) which is undefined without stronger evidence for pneumonia. When encouraged, she is able to use the incentive spirometer without issues and ambulate with minimal difficulty. Repeat procalcitonin showing 0.71. UTI with Klebsiella. Sensitive to Cipro. Was on Cipro for 5 day course at 500mg PO BID. Completed the antibiotic course. Stable currently. No new issues. Off antibiotics at this time. Multiple social issues. Chronic cough still with periods of hacking. Complained of Vague mild general pains. Awaiting placement. Yesterday the patient developed respiratory failure and required intubation. Started on Zyvox and Aztreonam IV. Will add Flagyl as well. No leukocytosis. Noted C. Diff with positive antigen but negative toxin. Supportive care. Remains intubated and ventilated. Cultures pending. C. Diff negative to date. No leukocytosis or fever reported. Essentially clear X-ray. Hypothermia episodes most of yesterday to this morning. Noted gram positive cocci in most recent urine culture. Still awaiting identification. Supportive care. Patient did improve mentally. Thank you for allowing me to participate in the care of the patient, we will follow with you.
[2017-08-15] MEDS: Insulin Lispro (humaLOG) MEDIUM Coverage SC SCH ×4 (02:32→18:11)
[2017-08-15 06:21] LABS: ALBUMIN 2.9 g/dL (3.0-4.8); CALCIUM 7.2 mg/dL (8.4-10.5)
[2017-08-15 06:38] LABS: RBC 3.45 10^6/uL (3.5-6.1); WHITE BLOOD COUNT 9.8 10^3/ul (4.5-11.0)
[2017-08-15 06:39] LABS: MEAN CELL VOLUME 80.6 fl (80.0-105.0); MEAN CORPUSCULAR HEMOGLOBIN 26.1 pg (25.0-35.0); MEAN CORPUSCULAR HGB CONC 32.4 g/dl (31.0-37.0); MEAN PLATELET VOLUME 9.1 fl (7.0-11.0); RED CELL DISTRIBUTION WIDTH 25.9 % (11.5-14.5)
[2017-08-15 06:40] LABS: EOS # 0.1 (0.0-0.7); EOS % 0.9 % (1.5-5.0); GRAN # 8.31 (1.4-6.5); LYMPH # 0.7 (1.2-3.4); LYMPH % 6.7 % (22.0-35.0); MONO # 0.7 (0.1-0.6); MONO % 7.4 % (1.0-6.0)
[2017-08-15] MEDS: Albuterol-Ipratrop 3 mg / 0.5 (3 ml) UD IH SCH ×3 (07:54→19:19)
[2017-08-15] MEDS: Aztreonam 1 Gm in NS 100mL 100 ML IVPB SCH ×2 (11:21→21:25)
--- NOTE | 2017-08-15 11:21 | CP.PCM.PN ---
<Shan Zepeda - Last Filed: 08/15/17 11:12> Subjective - Date & Time of Evaluation Date of Evaluation: 08/15/17 Time of Evaluation: 06:00 - Subjective Subjective: Patient seen and evaluated in ICU. No acute events overnight. Unable to obtain full ROS to due intubated status Objective - Vital Signs/Intake and Output Vital Signs (last 24 hours): Temp Pulse Resp BP Pulse Ox 99.0 F 82 26 H 154/79 H 98 08/15/17 06:40 08/15/17 06:40 08/15/17 07:55 08/15/17 06:01 08/15/17 07:55 Intake and Output: 08/15/17 08/15/17 06:59 18:59 Intake Total 1940 Output Total 1450 Balance 490 - Medications Medications: Current Medications Albuterol/Ipratropium (Duoneb 3 Mg/0.5 Mg (3 Ml) Ud) 3 ml IH Q6 [facility] Last Admin: 08/15/17 07:54 Dose: 3 ml Albuterol/Ipratropium (Duoneb 3 Mg/0.5 Mg (3 Ml) Ud) 3 ml IH Q6 PRN PRN Reason: SOB Last Admin: 08/14/17 19:37 Dose: 3 ml Calcium Acetate (Phoslo) 667 mg PO TID [facility] Last Admin: 08/14/17 17:50 Dose: 667 mg Ergocalciferol (Drisdol 50,000 Intl Units Cap) 1 cap PO Q7D [facility] Last Admin: 08/12/17 17:09 Dose: 1 cap Ferrous Sulfate (Feosol) 324 mg PO TID [facility] Last Admin: 08/14/17 17:50 Dose: 324 mg Propofol (Diprivan) 1,000 mg in 100 mls @ 2.885 mls/hr IV .Q24H PRN; Protocol; 5 MCG/KG/MIN PRN Reason: TITRATE PER MD ORDER Last Titration: 08/12/17 09:23 Dose: 0 mcg/kg/min, 0 mls/hr Aztreonam (Azactam 1 Gm) 100 mls @ 100 mls/hr IVPB Q12 [facility] PRN Reason: Protocol Last Admin: 08/14/17 22:43 Dose: 100 mls/hr Lactated Ringer's (Lactated Ringer's) 1,000 mls @ 100 mls/hr IV .Q10H [facility] Last Admin: 08/15/17 00:00 Dose: 100 mls/hr Fentanyl Citrate (Fentanyl Citrate/Sodium Chloride 1 Mg/100 Ml) 1,000 mcg in 100 mls @ 2 mls/hr IV .Q24H PRN; Protocol; 20 MCG/HR PRN Reason: TITRATE PER MD ORDER Last Admin: 08/14/17 18:26 Dose: 20 mcg/hr, 2 mls/hr Insulin Human Lispro (Humalog Med) 0 units SC Q6H [facility] PRN Reason: Protocol Last Admin: 08/15/17 07:29 Dose: Not Given Levothyroxine Sodium (Synthroid) 50 mcg IVP DAILY [facility] Last Admin: 08/14/17 10:24 Dose: 50 mcg Lisinopril (Zestril) 5 mg PO DAILY [facility] Last Admin: 08/06/17 09:14 Dose: 5 mg Methylprednisolone (Solu-Medrol) 40 mg IVP Q12 [facility] Last Admin: 08/14/17 22:34 Dose: 40 mg Multivitamins/Minerals (Therapeutic-M Tab) 1 tab PO 0800 [facility] Last Admin: 08/14/17 10:24 Dose: 1 tab Pantoprazole Sodium (Protonix Inj) 40 mg IVP DAILY [facility] Last Admin: 08/14/17 10:23 Dose: 40 mg Sodium Bicarbonate (Sodium Bicarbonate Tab) 1,300 mg PO BID [facility] Last Admin: 08/14/17 17:50 Dose: 1,300 mg Zinc Sulfate (Zinc Sulfate 220 Mg Cap) 220 mg PO DAILY [facility] Last Admin: 08/14/17 10:24 Dose: 220 mg - Labs Labs: 08/15/17 05:00 08/15/17 05:00 PT 13.1 SECONDS (9.4-12.5) H 06/15/17 11:00 INR 1.19 (0.93-1.08) H 06/15/17 11:00 APTT 31.3 Seconds (25.1-36.5) 06/15/17 11:00 - Constitutional Appears: No Acute Distress - Head Exam Head Exam: NORMAL INSPECTION - Eye Exam Eye Exam: Normal appearance - ENT Exam ENT Exam: Mucous Membranes Moist - Respiratory Exam Respiratory Exam: NORMAL BREATHING PATTERN - Cardiovascular Exam Cardiovascular Exam: REGULAR RHYTHM, +S1, +S2 - Extremities Exam Extremities Exam: Pedal Edema - Neurological Exam Neurological Exam: Alert, Awake Assessment and Plan - Assessment and Plan (Free Text) Assessment: Patient is a 67 year old female with history of asthma, arthritis, anemia, and obesity who was originally admitted for right lower extremity cellulitis and UTI. During her hospitalization course she developed acute hypercapneic respiratory failure secondary to asthma/RA airway disease/kyphoscoliosis in setting of cdiff colitis. She is monitored in the ICU. Plan: 1. Hypercapnic Respiratory Failure - patient awake opens eyes - patient is intubated and ventilated - pending potential trach on Wednesday - CT head no acute findings - CXR reviewed; minimal infiltrate in Left lung base; see full reports - continue to monitor respiratory status - c/w duonebs and solumedrol and pulmicort - c/w aztreonam-D/C tommorrow - procal 1.49 2. Abdominal Distension - likely 2/2 Constipation/fecal impaction - CT Abdomen Pelvis with PO and IV Contrast (07/18): Interstitial and airspace disease in the lung bases; mild cardiomegaly and atherosclerotic disease; fatty liver; gallstones; possible pyelonephritis; mild ileus, no obstruction; constipation with fecal impaction - abdominal flat plate-No acute changes or findings -tube feeding, will increase 10ml per shift 3. Normocytic anemia - Hemoglobins reviewed, trended, will transfuse if Hbg < 7.0 - Monitor daily 4. Cdiff colitis - rectal tube removed - Stool C diff- positive antigen, negative toxin 5. Acute Kidney injury - Creatinine 2.0 from 2.9 yesterday - Nephrology consulted - Monitor and maintain MAP > 65 - Monitor Input/Output, daily weights and renal function with basic metabolic panel - supplement electrolytes as needed - Anti-GBM -, anca - has normal complements - weekly vitamin D supplements - c/w IVF hydration - hold BILLY/ARB - avoid nephrotoxic agents and renally dose medications -urine output 2500 improving 6. HTN - BP reviewed, trended, and appreciated - hold zestril due to CATE 7. Prophylaxis: - GI ppx Protonix - DVT ppx: Heparin <Max Liriano - Last Filed: 08/15/17 12:49> Objective - Vital Signs/Intake and Output Vital Signs (last 24 hours): Temp Pulse Resp BP Pulse Ox 99.0 F 82 26 H 154/79 H 98 08/15/17 06:40 08/15/17 06:40 08/15/17 07:55 08/15/17 06:01 08/15/17 07:55 Intake and Output: 08/15/17 08/15/17 06:59 18:59 Intake Total 1940 Output Total 1450 Balance 490 - Medications Medications: Current Medications Albuterol/Ipratropium (Duoneb 3 Mg/0.5 Mg (3 Ml) Ud) 3 ml IH Q6 PRN PRN Reason: SOB Last Admin: 08/14/17 19:37 Dose: 3 ml Albuterol/Ipratropium (Duoneb 3 Mg/0.5 Mg (3 Ml) Ud) 3 ml IH [id number] [facility] Calcium Acetate (Phoslo) 667 mg PO TID [facility] Last Admin: 08/15/17 11:27 Dose: 667 mg Ergocalciferol (Drisdol 50,000 Intl Units Cap) 1 cap PO Q7D [facility] Last Admin: 08/12/17 17:09 Dose: 1 cap Ferrous Sulfate (Feosol) 324 mg PO TID [facility] Last Admin: 08/15/17 11:25 Dose: 324 mg Propofol (Diprivan) 1,000 mg in 100 mls @ 2.885 mls/hr IV .Q24H PRN; Protocol; 5 MCG/KG/MIN PRN Reason: TITRATE PER MD ORDER Last Titration: 08/12/17 09:23 Dose: 0 mcg/kg/min, 0 mls/hr Aztreonam (Azactam 1 Gm) 100 mls @ 100 mls/hr IVPB Q12 [facility] PRN Reason: Protocol Last Admin: 08/15/17 11:21 Dose: 100 mls/hr Lactated Ringer's (Lactated Ringer's) 1,000 mls @ 100 mls/hr IV .Q10H [facility] Last Admin: 08/15/17 00:00 Dose: 100 mls/hr Fentanyl Citrate (Fentanyl Citrate/Sodium Chloride 1 Mg/100 Ml) 1,000 mcg in 100 mls @ 2 mls/hr IV .Q24H PRN; Protocol; 20 MCG/HR PRN Reason: TITRATE PER MD ORDER Last Admin: 08/14/17 18:26 Dose: 20 mcg/hr, 2 mls/hr Insulin Human Lispro (Humalog Med) 0 units SC Q6H [facility] PRN Reason: Protocol Last Admin: 08/15/17 11:26 Dose: Not Given Levothyroxine Sodium (Synthroid) 50 mcg IVP DAILY [facility] Last Admin: 08/15/17 11:28 Dose: 50 mcg Lisinopril (Zestril) 5 mg PO DAILY [facility] Last Admin: 08/06/17 09:14 Dose: 5 mg Methylprednisolone (Solu-Medrol) 40 mg IVP Q12 [facility] Last Admin: 08/15/17 11:28 Dose: 40 mg Multivitamins/Minerals (Therapeutic-M Tab) 1 tab PO 0800 [facility] Last Admin: 08/15/17 11:29 Dose: 1 tab Pantoprazole Sodium (Protonix Inj) 40 mg IVP DAILY [facility] Last Admin: 08/15/17 11:27 Dose: 40 mg Sodium Bicarbonate (Sodium Bicarbonate Tab) 1,300 mg PO BID [facility] Last Admin: 08/15/17 11:27 Dose: 1,300 mg Zinc Sulfate (Zinc Sulfate 220 Mg Cap) 220 mg PO DAILY [facility] Last Admin: 08/15/17 11:30 Dose: 220 mg - Labs Labs: 08/15/17 05:00 08/15/17 05:00 PT 13.1 SECONDS (9.4-12.5) H 06/15/17 11:00 INR 1.19 (0.93-1.08) H 06/15/17 11:00 APTT 31.3 Seconds (25.1-36.5) 06/15/17 11:00 Attending/Attestation - Attestation I have personally seen and examined this patient.: Yes I have fully participated in the care of the patient.: Yes I have reviewed all pertinent clinical information, including history, physical exam and plan: Yes Notes (Text): 08/15/17 12:46 Patient was seen and examined with medical editor. 67 year old female with Respiratory failure due to hypercapnic Resp Failure due to COPD exacerbation and obesity Hypoventilation syndrome.Patient has failed weaning trial.Hypercapnia is improved, Patient has failed weaning trial last week. Hypercapnia is improved, Mental status is better, now ,Patient is following command, if she would be unable to wean off then will tracheotomy and PEG. R Patient is afebrile, blood cultures are negative for any growth, On IV antibiotics as per ID for Pneumonia. Renal functions are improving.Creatinine has improved to 2.0, had good urine out pit last night.We will monitor. Prognosis is guarded.
[2017-08-15] MEDS: Levothyroxine 100 mcg (0.1 mg) Inj IVP SCH (11:28)
[2017-08-15] MEDS: MethylPREDNISolone 40 mg Vial IVP SCH ×2 (11:28→21:25)
[2017-08-15] MEDS: Multivitamin With Minerals Tab PO SCH (11:29)
--- NOTE | 2017-08-15 13:14 | PN ---
DATE: 08/15/2017 SUBJECTIVE: The patient is resting in bed, awake on the vent. She is getting fentanyl and continues to require ventilator support. She has been failing vent weaning trials each morning. The patient also is getting TEN and tolerating well. PHYSICAL EXAMINATION: VITAL SIGNS: Note that her temperature is 99, her pulse is 82, respirations are 18 and BP is 154/79. SKIN: Warm and dry. HEENT: Head is atraumatic, normocephalic. Eyes reactive to light. Ear, nose and throat seemed to be within normal limits. NECK: Supple. No JVD. No thyroid enlargement. No lymph nodes. HEART: Regular rate and rhythm. Normal S1, S2. LUNGS: Reveal mild rhonchi bilaterally. ABDOMEN: Soft. Decreased bowel sounds. GENITALIA: Deferred. RECTAL: Deferred. MUSCULOSKELETAL: No joint deformities. EXTREMITIES: Reveal positive lower extremity edema. NEUROLOGICALLY: The patient is a little lethargic, but awake on the ventilator. LABORATORY DATA: As far as laboratories are concerned, her white count is 9.8, hemoglobin is 9.0, hematocrit is 27.8 with platelets of 238,000. Her sodium is 141, potassium 4.0, chloride 106, CO2 of 25 with a BUN of 42, creatinine of 2.0 and a glucose of 112. IMPRESSION: This patient has respiratory failure requiring ventilator support and FiO2 of 40%. She is failing vent weaning trials. The patient has hypercapnia as well as acute renal insufficiency and anemia. She is noted to have kyphoscoliosis as well as diaphragmatic dysfunction. PLAN: We will continue with ventilator support. Continue with aggressive trials to wean the patient from the ventilator as well. We will follow her chest x-ray and arterial blood gas and noted that she is on Azactam as antibiotic. She is on the fentanyl and the bronchodilators of DuoNeb. The patient will continue with Solu-Medrol and her Synthroid and Protonix as well. We will continue to treat aggressively along with the other consultants and the primary care doctor. See gin operator note for the patient at [facility], medical record number is [id number]. Da Nolasco MD
--- NOTE | 2017-08-15 17:45 | CP.PCM.PN ---
Subjective - Date & Time of Evaluation Date of Evaluation: 08/15/17 Time of Evaluation: 17:44 - Subjective Subjective: renal follow up note no events overnight Physical Examination: General Appearance: orally intubated. Head; Atraumatic, normocephalic ENT: orally intubated EYES:Sclera is anicteric. Neck; supple Lungs: Normal respiratory rate/effort. Breath sounds bilateral rales+ Heart: Normal rate. s1s2 normal. No rub or gallop. Extremities: no edema. No varicose veins Neurological: Patient is sedated Skin: Warm and dry. Abdomen: Abdomen is soft. Bowel sounds + Psych: unable MSK: no joint tenderness or swelling. A&P: non-oliguric Acute Kidney Injury (N17.9) sec to ATN. morbid obesity, arthritis, anemia, asthma, RAS and RA factor+ recent cellulitis, UTI, acute hypercapnic respi failure hypocalcemia, hyperphosphatemia, acidosis, hypokalemia Plan No acute need for renal replacement therapy Monitor Input/Output continue with IVF on phos binders and bicarb Objective - Vital Signs/Intake and Output Vital Signs (last 24 hours): Temp Pulse Resp BP Pulse Ox 99.0 F 82 26 H 154/79 H 98 08/15/17 06:40 08/15/17 06:40 08/15/17 07:55 08/15/17 06:01 08/15/17 07:55 Intake and Output: 08/15/17 08/15/17 06:59 18:59 Intake Total 1940 Output Total 1450 Balance 490 - Medications Medications: Current Medications Albuterol/Ipratropium (Duoneb 3 Mg/0.5 Mg (3 Ml) Ud) 3 ml IH Q6 PRN PRN Reason: SOB Last Admin: 08/14/17 19:37 Dose: 3 ml Albuterol/Ipratropium (Duoneb 3 Mg/0.5 Mg (3 Ml) Ud) 3 ml IH [id number] [facility] Last Admin: 08/15/17 13:04 Dose: 3 ml Calcium Acetate (Phoslo) 667 mg PO TID [facility] Last Admin: 08/15/17 11:27 Dose: 667 mg Ergocalciferol (Drisdol 50,000 Intl Units Cap) 1 cap PO Q7D [facility] Last Admin: 08/12/17 17:09 Dose: 1 cap Ferrous Sulfate (Feosol) 324 mg PO TID [facility] Last Admin: 08/15/17 11:25 Dose: 324 mg Propofol (Diprivan) 1,000 mg in 100 mls @ 2.885 mls/hr IV .Q24H PRN; Protocol; 5 MCG/KG/MIN PRN Reason: TITRATE PER MD ORDER Last Titration: 08/12/17 09:23 Dose: 0 mcg/kg/min, 0 mls/hr Aztreonam (Azactam 1 Gm) 100 mls @ 100 mls/hr IVPB Q12 [facility] PRN Reason: Protocol Last Admin: 08/15/17 11:21 Dose: 100 mls/hr Lactated Ringer's (Lactated Ringer's) 1,000 mls @ 100 mls/hr IV .Q10H [facility] Last Admin: 08/15/17 00:00 Dose: 100 mls/hr Fentanyl Citrate (Fentanyl Citrate/Sodium Chloride 1 Mg/100 Ml) 1,000 mcg in 100 mls @ 2 mls/hr IV .Q24H PRN; Protocol; 20 MCG/HR PRN Reason: TITRATE PER MD ORDER Last Admin: 08/14/17 18:26 Dose: 20 mcg/hr, 2 mls/hr Insulin Human Lispro (Humalog Med) 0 units SC Q6H [facility] PRN Reason: Protocol Last Admin: 08/15/17 11:26 Dose: Not Given Levothyroxine Sodium (Synthroid) 50 mcg IVP DAILY [facility] Last Admin: 08/15/17 11:28 Dose: 50 mcg Lisinopril (Zestril) 5 mg PO DAILY [facility] Last Admin: 08/06/17 09:14 Dose: 5 mg Methylprednisolone (Solu-Medrol) 40 mg IVP Q12 [facility] Last Admin: 08/15/17 11:28 Dose: 40 mg Multivitamins/Minerals (Therapeutic-M Tab) 1 tab PO 0800 [facility] Last Admin: 08/15/17 11:29 Dose: 1 tab Pantoprazole Sodium (Protonix Inj) 40 mg IVP DAILY [facility] Last Admin: 08/15/17 11:27 Dose: 40 mg Sodium Bicarbonate (Sodium Bicarbonate Tab) 1,300 mg PO BID [facility] Last Admin: 08/15/17 11:27 Dose: 1,300 mg Zinc Sulfate (Zinc Sulfate 220 Mg Cap) 220 mg PO DAILY [facility] Last Admin: 08/15/17 11:30 Dose: 220 mg - Labs Labs: 08/15/17 05:00 08/15/17 05:00 PT 13.1 SECONDS (9.4-12.5) H 06/15/17 11:00 INR 1.19 (0.93-1.08) H 06/15/17 11:00 APTT 31.3 Seconds (25.1-36.5) 06/15/17 11:00
--- NOTE | 2017-08-15 17:59 | CP.PCM.PN ---
Subjective - Date & Time of Evaluation Date of Evaluation: 08/15/17 Time of Evaluation: 17:00 - Subjective Subjective: Infectious Disease Follow Up: August 15, 2017 67 yo female presenting with 3 weeks of RLE ulceration, swelling and leaking from the wound as well as multiple falls in the past 3 weeks. The patient has an extensive medical history of asthma, arthritis, vitamin C deficiency, and possible thyroid disease. Draining RLE ulceration... cellulitis improved/resolved. Multiple chronic medical issues. Still with persistent dry cough. Otherwise stable. Mild erythema and excoriation of the folds in the abdomen and under the breasts. UTI with Klebsiella earlier in hospitalization but had treatment with Cipro that is now completed. Social Issues. The patient had respiratory distress with no improvement from BiPAP. Patient required intubation and ventilation. Transferred to MICU for further care. The patient was started on Zyvox and Aztreonam IV. Patient had a positive C. Diff antigen but negative toxin. Remains intubated today. Appears stable. Chest X-ray not showing new findings. No leukocytosis. Cultures pending... so far negative. Patient unable to be weaned from ventilator. Supportive care. No fevers or leukocytosis. First two Procalcitonin equivocal. The patient had hypothermia ranging from 93.0 F starting from two days ago. Temperature did rise back up to 99.0 F and has been hovering around 97.7 F. Rechecking procalcitonin... now at 1.49. Difficulty from weaning from the ventilator. Patient is opening eyes and tracking now. Creatinine has been improving and is down to 2.0 now. Objective - Vital Signs/Intake and Output Vital Signs (last 24 hours): Temp Pulse Resp BP Pulse Ox 99.0 F 82 26 H 154/79 H 98 08/15/17 06:40 08/15/17 06:40 08/15/17 07:55 08/15/17 06:01 08/15/17 07:55 Intake and Output: 08/15/17 08/15/17 06:59 18:59 Intake Total 1940 Output Total 1450 Balance 490 - Medications Medications: Current Medications Albuterol/Ipratropium (Duoneb 3 Mg/0.5 Mg (3 Ml) Ud) 3 ml IH Q6 PRN PRN Reason: SOB Last Admin: 01/13/18 19:37 Dose: 3 ml Albuterol/Ipratropium (Duoneb 3 Mg/0.5 Mg (3 Ml) Ud) 3 ml IH [id number] [facility] Last Admin: 08/15/17 13:04 Dose: 3 ml Calcium Acetate (Phoslo) 667 mg PO TID [facility] Last Admin: 08/15/17 11:27 Dose: 667 mg Ergocalciferol (Drisdol 50,000 Intl Units Cap) 1 cap PO Q7D [facility] Last Admin: 08/12/17 17:09 Dose: 1 cap Ferrous Sulfate (Feosol) 324 mg PO TID [facility] Last Admin: 08/15/17 11:25 Dose: 324 mg Propofol (Diprivan) 1,000 mg in 100 mls @ 2.885 mls/hr IV .Q24H PRN; Protocol; 5 MCG/KG/MIN PRN Reason: TITRATE PER MD ORDER Last Titration: 08/12/17 09:23 Dose: 0 mcg/kg/min, 0 mls/hr Aztreonam (Azactam 1 Gm) 100 mls @ 100 mls/hr IVPB Q12 [facility] PRN Reason: Protocol Last Admin: 08/15/17 11:21 Dose: 100 mls/hr Lactated Ringer's (Lactated Ringer's) 1,000 mls @ 100 mls/hr IV .Q10H [facility] Last Admin: 08/15/17 00:00 Dose: 100 mls/hr Fentanyl Citrate (Fentanyl Citrate/Sodium Chloride 1 Mg/100 Ml) 1,000 mcg in 100 mls @ 2 mls/hr IV .Q24H PRN; Protocol; 20 MCG/HR PRN Reason: TITRATE PER MD ORDER Last Admin: 08/14/17 18:26 Dose: 20 mcg/hr, 2 mls/hr Insulin Human Lispro (Humalog Med) 0 units SC Q6H [facility] PRN Reason: Protocol Last Admin: 08/15/17 11:26 Dose: Not Given Levothyroxine Sodium (Synthroid) 50 mcg IVP DAILY [facility] Last Admin: 08/15/17 11:28 Dose: 50 mcg Lisinopril (Zestril) 5 mg PO DAILY [facility] Last Admin: 08/06/17 09:14 Dose: 5 mg Methylprednisolone (Solu-Medrol) 40 mg IVP Q12 [facility] Last Admin: 08/15/17 11:28 Dose: 40 mg Multivitamins/Minerals (Therapeutic-M Tab) 1 tab PO 0800 [facility] Last Admin: 08/15/17 11:29 Dose: 1 tab Pantoprazole Sodium (Protonix Inj) 40 mg IVP DAILY [facility] Last Admin: 08/15/17 11:27 Dose: 40 mg Sodium Bicarbonate (Sodium Bicarbonate Tab) 1,300 mg PO BID [facility] Last Admin: 08/15/17 11:27 Dose: 1,300 mg Zinc Sulfate (Zinc Sulfate 220 Mg Cap) 220 mg PO DAILY [facility] Last Admin: 08/15/17 11:30 Dose: 220 mg - Labs Labs: 08/15/17 05:00 08/15/17 05:00 PT 13.1 SECONDS (9.4-12.5) H 06/15/17 11:00 INR 1.19 (0.93-1.08) H 06/15/17 11:00 APTT 31.3 Seconds (25.1-36.5) 06/15/17 11:00 - Constitutional Appears: Non-toxic, No Acute Distress, Chronically Ill - Head Exam Additional comments: intubate and ventilated. - Eye Exam Eye Exam: EOMI, PERRL Pupil Exam: NORMAL ACCOMODATION, PERRL - ENT Exam ENT Exam: Mucous Membranes Moist, Normal External Ear Exam, TM's Normal Bilaterally - Neck Exam Additional comments: intubated and ventilated. - Respiratory Exam Respiratory Exam: Clear to Ausculation Bilateral, NORMAL BREATHING PATTERN. absent: Rales, Rhonchi, Wheezes - Cardiovascular Exam Cardiovascular Exam: REGULAR RHYTHM, RRR, +S1, +S2 - GI/Abdominal Exam GI & Abdominal Exam: Soft, Normal Bowel Sounds. absent: Distended, Tenderness - Extremities Exam Extremities Exam: Full ROM, Normal Inspection - Neurological Exam Neurological Exam: Alert, Awake, CN II-XII Intact, Oriented x3 - Skin Skin Exam: Intact, Normal Color Assessment and Plan - Assessment and Plan (Free Text) Assessment: 67 yo female with multiple medical issues with PCN allergy diagnosed as a teenager verified by an [employer] H [employer]ist. The patient with leukocytosis. Await cultures especially urine cultures. Diabetes and HTN history? Local wound care. Elevated ESR and C-reactive protein. Completed Vancomycin and Aztreonam for antibiotic coverage. UTI with E. coli sensitive to Azactam. Was on Vancomycin for cellulitis IV. For UTI for 5-7 days treatment... completed. Supportive care. Cellulitis appears improved. No new issues. Social issues currently. Homeless at this time. CT scan of chest done. No infiltrates seen. Afebrile the past 24 hours. Mild congestion noted in CT with small pulmonary effusions. No leukocytosis. Slightly elevated procalcitonin (0.66) which is undefined without stronger evidence for pneumonia. When encouraged, she is able to use the incentive spirometer without issues and ambulate with minimal difficulty. Repeat procalcitonin showing 0.71. UTI with Klebsiella. Sensitive to Cipro. Was on Cipro for 5 day course at 500mg PO BID. Completed the antibiotic course. Stable currently. No new issues. Off antibiotics at this time. Multiple social issues. Chronic cough still with periods of hacking. Complained of Vague mild general pains. Awaiting placement. Yesterday the patient developed respiratory failure and required intubation. Started on Zyvox and Aztreonam IV. Will add Flagyl as well. No leukocytosis. Noted C. Diff with positive antigen but negative toxin. Supportive care. Remains intubated and ventilated. Cultures pending. C. Diff negative to date. No leukocytosis or fever reported. Essentially clear X-ray. Hypothermia episodes most of yesterday to this morning. Noted gram positive cocci in most recent urine culture. Still awaiting identification. Supportive care. Patient did improve mentally. Still difficulty in weaning off respirator. Thank you for allowing me to participate in the care of the patient, we will follow with you.
[2017-08-15] MEDS: Lactated Ringer's 1,000 ML IV SCH ×2 (20:38)
[2017-08-16] MEDS: Albuterol-Ipratrop 3 mg / 0.5 (3 ml) UD IH SCH ×4 (01:09→20:04)
[2017-08-16] MEDS: Insulin Lispro (humaLOG) MEDIUM Coverage SC SCH ×3 (01:32→17:43)
[2017-08-16 07:38] LABS: ALBUMIN 3.2 g/dL (3.0-4.8); CALCIUM 7.2 mg/dL (8.4-10.5)
--- NOTE | 2017-08-16 08:03 | CP.CCUPN ---
<Dakota Phipps - Last Filed: 08/16/17 10:52> CCU Subjective - Physician Review Subjective (Free Text): Critical Care Progress note Patient seen and examined at bedside this AM. Intubated PRVC 40 5 26 350. failed pressure support trial. Responds to simple verbal commands. Nursing notes reviewed, no acute events overnight. Patient Afebrile, normotensive, off sedation. Recent culture growth from urine showing gram + cocci. final result pending. CCU Objective - Vital Signs / Intake & Output Vital Signs (Last 4 hours): Vital Signs Temp Pulse Resp BP Pulse Ox 08/16/17 06:00 99 H 162/66 H 08/16/17 05:59 98.8 F 97 H 28 H 08/16/17 05:50 98.8 F 89 08/16/17 05:40 99.0 F 93 H 08/16/17 05:30 99.1 F 104 H 08/16/17 05:24 99.1 F 08/16/17 05:23 99.0 F 74 L 08/16/17 05:21 99.0 F 77 L 08/16/17 05:20 99.0 F 75 L 08/16/17 05:19 98.8 F 81 L 08/16/17 05:18 78.4 F L 76 L 08/16/17 05:17 97.3 F L 80 L 08/16/17 05:16 97.5 F L 73 L 08/16/17 05:10 97.7 F 74 85 L 08/16/17 05:00 97.7 F 78 159/91 H 78 L 08/16/17 04:50 97.5 F L 78 90 L 08/16/17 04:40 97.5 F L 77 91 L 08/16/17 04:30 97.7 F 69 95 08/16/17 04:20 97.5 F L 72 96 08/16/17 04:10 97.5 F L 70 90 L Intake and Output (Last 8hrs): Intake & Output 08/15/17 08/16/17 08/16/17 22:59 06:59 14:59 Intake Total 1720 Output Total 1450 Balance 270 Weight 227 lb Intake: IV 1200 Left Antecubital 1200 Tube Feeding 420 Other 100 Output: Urine 1450 Urethral (Christensen) 1450 Other: # Bowel Movements 1 - Physical Exam Head: Positive for: Atraumatic, Normocephalic Pupils: Positive for: PERRL Extroacular Muscles: Positive for: EOMI Conjunctiva: Positive for: Normal Mouth: Positive for: Moist Mucous Membranes Pharnyx: Positive for: Normal. Negative for: ERYTHEMA, EXUDATE, TONSILS ENLARGED Nose (External): Positive for: Atraumatic Nose (Internal): Positive for: Normal Inspection Neck: Positive for: Normal Range of Motion Respiratory/Chest: Positive for: Clear to Auscultation, Good Air Exchange. Negative for: Respiratory Distress, Accessory Muscle Use, Wheezes, Retracting, Rhonchi Cardiovascular: Positive for: Regular Rate and Rhythm, Normal S1, S2. Negative for: Murmurs Abdomen: Positive for: Normal Bowel Sounds. Negative for: Tenderness, Distention, Peritoneal Signs Back: Positive for: Normal Inspection. Negative for: CVA Tenderness, Midline Tenderness Upper Extremity: Positive for: Normal Inspection, Normal ROM, NORMAL PULSES, Neurovascularly Intact, Capillary Refill < 2s. Negative for: Cyanosis, Edema, Erythema Lower Extremity: Positive for: NORMAL PULSES, Normal ROM, Swelling, Erythema, Temperature Abnormalties, Neurovascularly Intact, Capillary Refill < 2 s. Negative for: Edema, CALF TENDERNESS Neurological: Positive for: GCS=15, CN II-XII Intact, Speech Normal, Motor Func Grossly Intact, Normal Sensory Function, Normal Cerebellar Funct, Gait Normal, Memory Normal Skin: Positive for: Warm, Dry, Normal Color. Negative for: Rashes Psychiatric: Positive for: Alert, Oriented x 3, Normal Insight, Normal Concentration - Medications Active Medications: Active Medications Generic Name Dose Route Start Last Admin Trade Name Freq PRN Reason Stop Dose Admin Albuterol/Ipratropium 3 ml 08/12/17 10:57 08/14/17 19:37 Duoneb 3 Mg/0.5 Mg (3 Ml) Ud IH 3 ml Q6 PRN Administration SOB Albuterol/Ipratropium 3 ml 08/15/17 11:36 08/16/17 07:44 Duoneb 3 Mg/0.5 Mg (3 Ml) Ud IH 3 ml [id number] ESCOBAR Administration Calcium Acetate 667 mg 08/09/17 10:30 08/15/17 18:09 Phoslo PO 667 mg TID ESCOBAR Administration Ergocalciferol 1 cap 08/12/17 13:30 08/12/17 17:09 Drisdol 50,000 Intl Units Cap PO 1 cap Q7D ESCOBAR Administration Ferrous Sulfate 324 mg 06/16/17 14:00 08/15/17 18:10 Feosol PO 324 mg TID ESCOBAR Administration Propofol 1,000 mg in 100 mls @ 2.885 mls/hr 08/06/17 17:13 08/12/17 09:23 Diprivan IV 0 mcg/kg/min .Q24H PRN 0 mls/hr TITRATE PER MD ORDER Titration Protocol 5 MCG/KG/MIN Aztreonam 100 mls @ 100 mls/hr 08/07/17 22:00 08/15/17 21:25 Azactam 1 Gm IVPB 100 mls/hr Q12 ESCOBAR Administration Protocol Lactated Ringer's 1,000 mls @ 100 mls/hr 08/12/17 10:49 08/15/17 20:38 Lactated Ringer's IV 100 mls/hr .Q10H ESCOBAR Administration Fentanyl Citrate 1,000 mcg in 100 mls @ 2 mls/hr 08/12/17 19:43 08/14/17 18: 26 Fentanyl Citrate/Sodium Chloride 1 Mg/100 Ml IV 20 mcg/hr .Q24H PRN 2 mls/hr TITRATE PER MD ORDER Administration Protocol 20 MCG/HR Insulin Human Lispro 0 units 08/14/17 18:00 08/16/17 01:32 Humalog Med SC Not Given Q6H [facility] Protocol Levothyroxine Sodium 50 mcg 08/11/17 10:00 08/15/17 11:28 Synthroid IVP 50 mcg DAILY ESCOBAR Administration Lisinopril 5 mg 07/25/17 11:00 08/06/17 09:14 Zestril PO 5 mg DAILY ESCOBAR Administration Methylprednisolone 40 mg 08/12/17 02:45 08/15/17 21:25 Solu-Medrol IVP 40 mg Q12 ESCOBAR Administration Multivitamins/Minerals 1 tab 06/16/17 08:00 08/15/17 11:29 Therapeutic-M Tab PO 1 tab 0800 ESCOBAR Administration Pantoprazole Sodium 40 mg 08/07/17 10:00 08/15/17 11:27 Protonix Inj IVP 40 mg DAILY ESCOBAR Administration Sodium Bicarbonate 1,300 mg 08/09/17 10:15 08/15/17 18:09 Sodium Bicarbonate Tab PO 1,300 mg BID ESCOBAR Administration Zinc Sulfate 220 mg 06/15/17 14:30 08/15/17 11:30 Zinc Sulfate 220 Mg Cap PO 220 mg DAILY ESCOBAR Administration - Patient Studies Lab Studies: Microbiology Studies 08/10/17 11:30 Blood Culture - Final Blood NO GROWTH AFTER 5 DAYS Gram Stain - Final TEST NOT PERFORMED Lab Studies 08/16/17 08/16/17 08/16/17 Range/Units 05:53 05:48 00:11 Sodium 142 (132-148) mmol/L Potassium 3.9 (3.6-5.0) mmol/L Chloride 104 (98-107) mmol/L Carbon Dioxide 32 (21-33) mmol/L Anion Gap 10 (10-20) BUN 36 H (7-21) mg/dL Creatinine 1.5 H (0.7-1.2) mg/dl Est GFR ( Amer) 42 Est GFR (Non-Af Amer) 35 POC Glucose (mg/dL) 117 H 100 (65-110) mg/dL Random Glucose 108 (70-110) mg/dL Calcium 7.2 L (8.4-10.5) mg/dL Total Bilirubin 0.5 (0.2-1.3) mg/dL AST 42 H D (14-36) U/L ALT 34 (7-56) U/L Alkaline Phosphatase 86 (38-126) U/L Total Protein 6.4 (5.8-8.3) g/dL Albumin 3.2 (3.0-4.8) g/dL Globulin 3.3 gm/dL Albumin/Globulin Ratio 1.0 L (1.1-1.8) 08/15/17 08/15/17 Range/Units 17:50 11:04 Sodium (132-148) mmol/L Potassium (3.6-5.0) mmol/L Chloride (98-107) mmol/L Carbon Dioxide (21-33) mmol/L Anion Gap (10-20) BUN (7-21) mg/dL Creatinine (0.7-1.2) mg/dl Est GFR ( Amer) Est GFR (Non-Af Amer) POC Glucose (mg/dL) 102 90 (65-110) mg/dL Random Glucose (70-110) mg/dL Calcium (8.4-10.5) mg/dL Total Bilirubin (0.2-1.3) mg/dL AST (14-36) U/L ALT (7-56) U/L Alkaline Phosphatase (38-126) U/L Total Protein (5.8-8.3) g/dL Albumin (3.0-4.8) g/dL Globulin gm/dL Albumin/Globulin Ratio (1.1-1.8) Laboratory Results - last 24 hr 08/15/17 08/15/17 08/16/17 11:04 17:50 00:11 Sodium Potassium Chloride Carbon Dioxide Anion Gap BUN Creatinine Est GFR ( Amer) Est GFR (Non-Af Amer) POC Glucose (mg/dL) 90 102 100 Random Glucose Calcium Total Bilirubin AST ALT Alkaline Phosphatase Total Protein Albumin Globulin Albumin/Globulin Ratio 08/16/17 08/16/17 05:48 05:53 Sodium 142 Potassium 3.9 Chloride 104 Carbon Dioxide 32 Anion Gap 10 BUN 36 H Creatinine 1.5 H Est GFR ( Amer) 42 Est GFR (Non-Af Amer) 35 POC Glucose (mg/dL) 117 H Random Glucose 108 Calcium 7.2 L Total Bilirubin 0.5 AST 42 H D ALT 34 Alkaline Phosphatase 86 Total Protein 6.4 Albumin 3.2 Globulin 3.3 Albumin/Globulin Ratio 1.0 L Fingerstick Blood Sugar Results: 117 Critical Care Progress Note - Nutrition Nutrition: Nutrition Category Date Time Status Heart Healthy Diet [DIET] Diets 07/27/17 Dinner Ordered Assessment/Plan - Assessment and Plan (Free Text) Assessment: 67F w/ ventilator dependent respiratory failure intubated on 08/06/17. Tube feeds started for nutrition. Off sedation and pressors. Currently AAOx3. Multiple failed attempts to wean from mechanical ventilation. Recent UTI growing gram positive cocci. Plan: Neuro: Pt awake, alert responds to verbal stimuli , follows commands and moves extremities. Cardio: Monitor vitals keep MAP > 65 Pulm: Intubated plan for trach- surgery on board c/s Dr. Jain Keep SaO2 > 92% GI: currently on tube feeds will c/s surgery for possible G-Tube ppx: PTX Large BM yesterday; f/u C-Diff Renal/Electrolytes: Good urine output; Cr trending down replete electrolytes PRN Endo: maintain euvolemia, euglycemia Taper steroids Heme: ppx: SCD Patient discussed with Dr. Sutherland critical care attending Dakota Phipps PGY1 <Ruddy Sutherland - Last Filed: 08/16/17 12:02> CCU Objective - Vital Signs / Intake & Output Vital Signs (Last 4 hours): Vital Signs Temp Pulse BP Pulse Ox 08/16/17 08:10 99.0 F 70 99 08/16/17 08:00 140/78 08/16/17 07:59 99.0 F 70 99 Intake and Output (Last 8hrs): Intake & Output 08/15/17 08/16/17 08/16/17 22:59 06:59 14:59 Intake Total 1720 1499 80 Output Total 1450 1400 Balance 270 99 80 Weight 227 lb Intake: IV 1200 1324 80 Left Antecubital 1200 1324 Tube Feeding 420 175 Other 100 Output: Urine 1450 1400 Urethral (Christensen) 1450 1400 Other: # Bowel Movements 1 - Medications Active Medications: Active Medications Generic Name Dose Route Start Last Admin Trade Name Freq PRN Reason Stop Dose Admin Albuterol/Ipratropium 3 ml 08/12/17 10:57 08/14/17 19:37 Duoneb 3 Mg/0.5 Mg (3 Ml) Ud IH 3 ml Q6 PRN Administration SOB Albuterol/Ipratropium 3 ml 08/15/17 11:36 08/16/17 07:44 Duoneb 3 Mg/0.5 Mg (3 Ml) Ud IH 3 ml [id number] ESCOBAR Administration Ergocalciferol 1 cap 08/12/17 13:30 08/12/17 17:09 Drisdol 50,000 Intl Units Cap PO 1 cap Q7D ESCOBAR Administration Ferrous Sulfate 300 mg 08/16/17 10:00 08/16/17 11:30 Feosol Liq PO 300 mg TID ESCOBAR Administration Aztreonam 100 mls @ 100 mls/hr 08/07/17 22:00 08/16/17 11:29 Azactam 1 Gm IVPB 100 mls/hr Q12 ESCOBAR Administration Protocol Lactated Ringer's 1,000 mls @ 100 mls/hr 08/12/17 10:49 08/15/17 20:38 Lactated Ringer's IV 100 mls/hr .Q10H ESCOBAR Administration Fentanyl Citrate 1,000 mcg in 100 mls @ 2 mls/hr 08/12/17 19:43 08/16/17 08: 24 Fentanyl Citrate/Sodium Chloride 1 Mg/100 Ml IV 20 mcg/hr .Q24H PRN 2 mls/hr TITRATE PER MD ORDER Administration Protocol 20 MCG/HR Insulin Human Lispro 0 units 08/14/17 18:00 08/16/17 11:50 Humalog Med SC Not Given Q6H [facility] Protocol Levothyroxine Sodium 50 mcg 08/11/17 10:00 08/16/17 11:31 Synthroid IVP 50 mcg DAILY ESCOBAR Administration Methylprednisolone 20 mg 08/16/17 22:00 Solu-Medrol IVP Q12 [facility] Multivitamins/Vitamin C 15 ml 08/17/17 08:00 Multi-Delyn Liquid PO 0800 [facility] Pantoprazole Sodium 40 mg 08/07/17 10:00 08/16/17 11:31 Protonix Inj IVP 40 mg DAILY ESCOBAR Administration Zinc Sulfate 220 mg 06/15/17 14:30 08/16/17 11:31 Zinc Sulfate 220 Mg Cap PO 220 mg DAILY ESCOBAR Administration - Patient Studies Lab Studies: Microbiology Studies 08/10/17 11:30 Blood Culture - Final Blood NO GROWTH AFTER 5 DAYS Gram Stain - Final TEST NOT PERFORMED Lab Studies 08/16/17 08/16/17 08/16/17 Range/Units 11:32 05:53 05:48 WBC (4.5-11.0) 10^3/ul RBC (3.5-6.1) 10^6/uL Hgb (12.0-16.0) g/dL Hct (36.0-48.0) % MCV (80.0-105.0) fl MCH (25.0-35.0) pg MCHC (31.0-37.0) g/dl RDW (11.5-14.5) % Plt Count (120.0-450.0) 10^3/uL MPV (7.0-11.0) fl Gran % (50.0-68.0) % Lymph % (Auto) (22.0-35.0) % Becker % (Auto) (1.0-6.0) % Eos % (Auto) (1.5-5.0) % Baso % (Auto) (0.0-3.0) % Gran # (1.4-6.5) Lymph # (1.2-3.4) Becker # (0.1-0.6) Eos # (0.0-0.7) Baso # (0.0-2.0) K/mm3 Sodium 142 (132-148) mmol/L Potassium 3.9 (3.6-5.0) mmol/L Chloride 104 (98-107) mmol/L Carbon Dioxide 32 (21-33) mmol/L Anion Gap 10 (10-20) BUN 36 H (7-21) mg/dL Creatinine 1.5 H (0.7-1.2) mg/dl Est GFR ( Amer) 42 Est GFR (Non-Af Amer) 35 POC Glucose (mg/dL) 76 117 H (65-110) mg/dL Random Glucose 108 (70-110) mg/dL Calcium 7.2 L (8.4-10.5) mg/dL Total Bilirubin 0.5 (0.2-1.3) mg/dL AST 42 H D (14-36) U/L ALT 34 (7-56) U/L Alkaline Phosphatase 86 (38-126) U/L Total Protein 6.4 (5.8-8.3) g/dL Albumin 3.2 (3.0-4.8) g/dL Globulin 3.3 gm/dL Albumin/Globulin Ratio 1.0 L (1.1-1.8) 08/16/17 08/16/17 08/15/17 Range/Units 05:48 00:11 17:50 WBC 9.7 (4.5-11.0) 10^3/ul RBC 3.55 (3.5-6.1) 10^6/uL Hgb 9.6 L (12.0-16.0) g/dL Hct 29.4 L (36.0-48.0) % MCV 82.8 (80.0-105.0) fl MCH 27.0 (25.0-35.0) pg MCHC 32.7 (31.0-37.0) g/dl RDW 26.6 H (11.5-14.5) % Plt Count 240 (120.0-450.0) 10^3/uL MPV 9.4 (7.0-11.0) fl Gran % 79.9 H (50.0-68.0) % Lymph % (Auto) 9.7 L (22.0-35.0) % Becker % (Auto) 9.9 H (1.0-6.0) % Eos % (Auto) 0.5 L (1.5-5.0) % Baso % (Auto) 0.0 (0.0-3.0) % Gran # 7.79 H (1.4-6.5) Lymph # 0.9 L (1.2-3.4) Becker # 1.0 H (0.1-0.6) Eos # 0.1 (0.0-0.7) Baso # 0.00 (0.0-2.0) K/mm3 Sodium (132-148) mmol/L Potassium (3.6-5.0) mmol/L Chloride (98-107) mmol/L Carbon Dioxide (21-33) mmol/L Anion Gap (10-20) BUN (7-21) mg/dL Creatinine (0.7-1.2) mg/dl Est GFR ( Amer) Est GFR (Non-Af Amer) POC Glucose (mg/dL) 100 102 (65-110) mg/dL Random Glucose (70-110) mg/dL Calcium (8.4-10.5) mg/dL Total Bilirubin (0.2-1.3) mg/dL AST (14-36) U/L ALT (7-56) U/L Alkaline Phosphatase (38-126) U/L Total Protein (5.8-8.3) g/dL Albumin (3.0-4.8) g/dL Globulin gm/dL Albumin/Globulin Ratio (1.1-1.8) 08/15/17 Range/Units 11:04 WBC (4.5-11.0) 10^3/ul RBC (3.5-6.1) 10^6/uL Hgb (12.0-16.0) g/dL Hct (36.0-48.0) % MCV (80.0-105.0) fl MCH (25.0-35.0) pg MCHC (31.0-37.0) g/dl RDW (11.5-14.5) % Plt Count (120.0-450.0) 10^3/uL MPV (7.0-11.0) fl Gran % (50.0-68.0) % Lymph % (Auto) (22.0-35.0) % Becker % (Auto) (1.0-6.0) % Eos % (Auto) (1.5-5.0) % Baso % (Auto) (0.0-3.0) % Gran # (1.4-6.5) Lymph # (1.2-3.4) Becker # (0.1-0.6) Eos # (0.0-0.7) Baso # (0.0-2.0) K/mm3 Sodium (132-148) mmol/L Potassium (3.6-5.0) mmol/L Chloride (98-107) mmol/L Carbon Dioxide (21-33) mmol/L Anion Gap (10-20) BUN (7-21) mg/dL Creatinine (0.7-1.2) mg/dl Est GFR ( Amer) Est GFR (Non-Af Amer) POC Glucose (mg/dL) 90 (65-110) mg/dL Random Glucose (70-110) mg/dL Calcium (8.4-10.5) mg/dL Total Bilirubin (0.2-1.3) mg/dL AST (14-36) U/L ALT (7-56) U/L Alkaline Phosphatase (38-126) U/L Total Protein (5.8-8.3) g/dL Albumin (3.0-4.8) g/dL Globulin gm/dL Albumin/Globulin Ratio (1.1-1.8) Laboratory Results - last 24 hr 08/15/17 08/15/17 08/16/17 11:04 17:50 00:11 WBC RBC Hgb Hct MCV MCH MCHC RDW Plt Count MPV Gran % Lymph % (Auto) Becker % (Auto) Eos % (Auto) Baso % (Auto) Gran # Lymph # Becker # Eos # Baso # Sodium Potassium Chloride Carbon Dioxide Anion Gap BUN Creatinine Est GFR ( Amer) Est GFR (Non-Af Amer) POC Glucose (mg/dL) 90 102 100 Random Glucose Calcium Total Bilirubin AST ALT Alkaline Phosphatase Total Protein Albumin Globulin Albumin/Globulin Ratio 08/16/17 08/16/17 08/16/17 05:48 05:48 05:53 WBC 9.7 RBC 3.55 Hgb 9.6 L Hct 29.4 L MCV 82.8 MCH 27.0 MCHC 32.7 RDW 26.6 H Plt Count 240 MPV 9.4 Gran % 79.9 H Lymph % (Auto) 9.7 L Becker % (Auto) 9.9 H Eos % (Auto) 0.5 L Baso % (Auto) 0.0 Gran # 7.79 H Lymph # 0.9 L Becker # 1.0 H Eos # 0.1 Baso # 0.00 Sodium 142 Potassium 3.9 Chloride 104 Carbon Dioxide 32 Anion Gap 10 BUN 36 H Creatinine 1.5 H Est GFR ( Amer) 42 Est GFR (Non-Af Amer) 35 POC Glucose (mg/dL) 117 H Random Glucose 108 Calcium 7.2 L Total Bilirubin 0.5 AST 42 H D ALT 34 Alkaline Phosphatase 86 Total Protein 6.4 Albumin 3.2 Globulin 3.3 Albumin/Globulin Ratio 1.0 L 08/16/17 11:32 WBC RBC Hgb Hct MCV MCH MCHC RDW Plt Count MPV Gran % Lymph % (Auto) Becker % (Auto) Eos % (Auto) Baso % (Auto) Gran # Lymph # Becker # Eos # Baso # Sodium Potassium Chloride Carbon Dioxide Anion Gap BUN Creatinine Est GFR ( Amer) Est GFR (Non-Af Amer) POC Glucose (mg/dL) 76 Random Glucose Calcium Total Bilirubin AST ALT Alkaline Phosphatase Total Protein Albumin Globulin Albumin/Globulin Ratio Critical Care Progress Note - Nutrition Nutrition: Nutrition Category Date Time Status Heart Healthy Diet [DIET] Diets 07/27/17 Dinner Ordered Assessment/Plan - Assessment and Plan (Free Text) Plan: Pt seen and examined, with resident on rounds, agree with note with following additions/exceptions: Patient is 67yo female a/w hypercapnic resp failure, ventilatory dependent, has failed multiple weaning trials. Currently afebrile, HD stable, comfortable, off pressors, in NAD. Renal function improving. Hypercapnic resp Failure, intubated Oliguria/renal Failure,improving Obesity COPD Recommend: - cont with ventilatory support, low tidal vol ventilation, maintain Pplateau<30 - daily sedation vacation, CPAP trial failed - follow up cultures, - taper Solumedrol - monitor urine output, BUN/Cr - Hold BILLY-I - BP control - follow up renal, - Feeds enteric - FS control - GI ppx - DVT ppx - needs trach/peg - Monitor in MICU critical care time 30 minutes
[2017-08-16 08:07] LABS: EOS # 0.1 (0.0-0.7); EOS % 0.5 % (1.5-5.0); GRAN # 7.79 (1.4-6.5); GRAN % 79.9 % (50.0-68.0); HEMOGLOBIN 9.6 g/dL (12.0-16.0); LYMPH # 0.9 (1.2-3.4); LYMPH % 9.7 % (22.0-35.0); MEAN CELL VOLUME 82.8 fl (80.0-105.0); MEAN CORPUSCULAR HGB CONC 32.7 g/dl (31.0-37.0); MEAN PLATELET VOLUME 9.4 fl (7.0-11.0); MONO % 9.9 % (1.0-6.0); RBC 3.55 10^6/uL (3.5-6.1); RED CELL DISTRIBUTION WIDTH 26.6 % (11.5-14.5); WHITE BLOOD COUNT 9.7 10^3/ul (4.5-11.0)
--- NOTE | 2017-08-16 08:11 | CP.PCM.CON ---
History of Present Illness - History of Present Illness History of Present Illness: General Surgery Consult Note: Dr. Jain 67 year old female with a past medical history of asthma, bilateral lower extremity cellulitis, arthritis, Vitamin C defiency, and hypothyroidism who presented initially to [facility] for RLE cellulitis and UTI on 06/15/17. The patient was treated with IV antibiotics and surgical debridement of the affected area. The patient began to appear lethargic and was not communicating well and was found to have developed hypercapnic, respiratory failure that was unresponsive to BIPAP and required intubation on the 06 of August. The patient has failed multiple weaning trials and is now being considered for tracheostomy secondary to prolonged intubation, ten days intubated as of today. 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); denies tobacco, ETOH and substance use; does not go out often from home, but uses a cane/walker at home for assistance FHx: mom (DM2), dad (heart disease) Review of Systems - Review of Systems Systems not reviewed;Unavailable: Intubated Past Patient History - Past Social History Smoking Status: Never Smoked Alcohol: None Drugs: Denies Home Situation {Lives}: Friends - CARDIAC Hx Cardiac Disorders: No - PULMONARY Hx Asthma: Yes - NEUROLOGICAL Hx Neurological Disorder: No - HEENT Hx HEENT Problems: No - RENAL Hx Chronic Kidney Disease: No - ENDOCRINE/METABOLIC Other/Comment: thyroid disease - HEMATOLOGICAL/ONCOLOGICAL Other/Comment: vitamin c deficiency - INTEGUMENTARY Hx Dermatological Problems: No - MUSCULOSKELETAL/RHEUMATOLOGICAL Hx Arthritis: Yes Hx Falls: Yes - GASTROINTESTINAL Hx Gastrointestinal Disorders: No - GENITOURINARY/GYNECOLOGICAL Hx Genitourinary Disorders: No - PSYCHIATRIC Hx Psychophysiologic Disorder: No Hx Substance Use: No - SURGICAL HISTORY Hx Orthopedic Surgery: Yes (L knee) Other/Comment: left knee surgery - ANESTHESIA Hx Anesthesia: Yes Hx Anesthesia Reactions: No Meds Home Medications: Home Medication List Medication Instructions Recorded Confirmed Type Acetaminophen [Tylenol 325mg tab] 650 mg PO Q4 PRN tab 07/16/17 Rx Acetaminophen/Butalbital/Caf 1 tab PO Q4H PRN tab 07/16/17 Rx [Fioricet] Albuterol/Ipratropium [Duoneb 3 3 ml IH [id number] PRN neb 07/16/17 Rx mg/0.5 mg (3 ml) UD] Benzonatate [Tessalon Perles] 100 mg PO TID sgl 07/16/17 Rx Docusate [Colace] 100 mg PO DAILY cap 07/16/17 Rx Ferrous Sulfate [Feosol] 324 mg PO TID ect 07/16/17 Rx Heparin 5,000 units SC Q12 vial 07/16/17 Rx Hydrocerin [Hydrocerin Cream] 1 ea TOP DAILY jar 07/16/17 Rx Metoprolol Tartrate [Lopressor] 25 mg PO TID tab 07/16/17 Rx Nystatin [Nystop Topical Powder] 1 gm TOP DAILY bottle 07/16/17 Rx Pantoprazole [Protonix EC Tab] 40 mg PO 0600 ect 07/16/17 Rx Zinc [Zinc Sulfate 220 mg Cap] 220 mg PO DAILY cap 07/16/17 Rx guaiFENesin [Robitussin] 100 mg PO Q4H PRN udc 07/16/17 Rx guaiFENesin/Dextromethorphan 1 tab PO BID tab 07/16/17 Rx [Mucinex-DM 600-30 mg] Allergies/Adverse Reactions: Allergies Allergy/AdvReac Type Severity Reaction Status Date / Time Penicillins Allergy ITCHING Verified 06/15/17 09:47 - Medications Medications: Current Medications Albuterol/Ipratropium (Duoneb 3 Mg/0.5 Mg (3 Ml) Ud) 3 ml IH Q6 PRN PRN Reason: SOB Last Admin: 08/14/17 19:37 Dose: 3 ml Albuterol/Ipratropium (Duoneb 3 Mg/0.5 Mg (3 Ml) Ud) 3 ml IH [id number] [facility] Last Admin: 08/16/17 07:44 Dose: 3 ml Calcium Acetate (Phoslo) 667 mg PO TID [facility] Last Admin: 08/15/17 18:09 Dose: 667 mg Ergocalciferol (Drisdol 50,000 Intl Units Cap) 1 cap PO Q7D [facility] Last Admin: 08/12/17 17:09 Dose: 1 cap Ferrous Sulfate (Feosol) 324 mg PO TID [facility] Last Admin: 08/15/17 18:10 Dose: 324 mg Propofol (Diprivan) 1,000 mg in 100 mls @ 2.885 mls/hr IV .Q24H PRN; Protocol; 5 MCG/KG/MIN PRN Reason: TITRATE PER MD ORDER Last Titration: 08/12/17 09:23 Dose: 0 mcg/kg/min, 0 mls/hr Aztreonam (Azactam 1 Gm) 100 mls @ 100 mls/hr IVPB Q12 [facility] PRN Reason: Protocol Last Admin: 08/15/17 21:25 Dose: 100 mls/hr Lactated Ringer's (Lactated Ringer's) 1,000 mls @ 100 mls/hr IV .Q10H [facility] Last Admin: 08/15/17 20:38 Dose: 100 mls/hr Fentanyl Citrate (Fentanyl Citrate/Sodium Chloride 1 Mg/100 Ml) 1,000 mcg in 100 mls @ 2 mls/hr IV .Q24H PRN; Protocol; 20 MCG/HR PRN Reason: TITRATE PER MD ORDER Last Admin: 08/14/17 18:26 Dose: 20 mcg/hr, 2 mls/hr Insulin Human Lispro (Humalog Med) 0 units SC Q6H [facility] PRN Reason: Protocol Last Admin: 08/16/17 01:32 Dose: Not Given Levothyroxine Sodium (Synthroid) 50 mcg IVP DAILY [facility] Last Admin: 08/15/17 11:28 Dose: 50 mcg Lisinopril (Zestril) 5 mg PO DAILY [facility] Last Admin: 08/06/17 09:14 Dose: 5 mg Methylprednisolone (Solu-Medrol) 40 mg IVP Q12 [facility] Last Admin: 08/15/17 21:25 Dose: 40 mg Multivitamins/Minerals (Therapeutic-M Tab) 1 tab PO 0800 [facility] Last Admin: 08/15/17 11:29 Dose: 1 tab Pantoprazole Sodium (Protonix Inj) 40 mg IVP DAILY [facility] Last Admin: 08/15/17 11:27 Dose: 40 mg Sodium Bicarbonate (Sodium Bicarbonate Tab) 1,300 mg PO BID [facility] Last Admin: 08/15/17 18:09 Dose: 1,300 mg Zinc Sulfate (Zinc Sulfate 220 Mg Cap) 220 mg PO DAILY [facility] Last Admin: 08/15/17 11:30 Dose: 220 mg Physical Exam - Constitutional Appears: Non-toxic, No Acute Distress - Head Exam Head Exam: ATRAUMATIC, NORMOCEPHALIC - Eye Exam Eye Exam: EOMI, Normal appearance Pupil Exam: PERRL - Neck Exam Neck exam: Positive for: Normal Inspection - Respiratory Exam Respiratory Exam: Wheezes (bilaterally) - Cardiovascular Exam Cardiovascular Exam: RRR, +S1, +S2 - GI/Abdominal Exam GI & Abdominal Exam: Normal Bowel Sounds - Extremities Exam Extremities exam: Positive for: pedal edema (1/4) - Neurological Exam Neurological exam: Alert, Oriented x3 - Skin Skin Exam: Dry, Intact, Normal Color, Warm Results - Vital Signs Recent Vital Signs: Last Vital Signs Temp 98.8 F 08/16/17 05:59 Pulse 99 H 08/16/17 06:00 Resp 28 H 08/16/17 05:59 BP 162/66 H 08/16/17 06:00 Pulse Ox 74 L 08/16/17 05:23 - Labs Result Diagrams: 08/16/17 05:48 08/16/17 05:48 Labs: Laboratory Results - last 24 hr 08/15/17 08/15/17 08/16/17 11:04 17:50 00:11 Sodium Potassium Chloride Carbon Dioxide Anion Gap BUN Creatinine Est GFR ( Amer) Est GFR (Non-Af Amer) POC Glucose (mg/dL) 90 102 100 Random Glucose Calcium Total Bilirubin AST ALT Alkaline Phosphatase Total Protein Albumin Globulin Albumin/Globulin Ratio 08/16/17 08/16/17 05:48 05:53 Sodium 142 Potassium 3.9 Chloride 104 Carbon Dioxide 32 Anion Gap 10 BUN 36 H Creatinine 1.5 H Est GFR ( Amer) 42 Est GFR (Non-Af Amer) 35 POC Glucose (mg/dL) 117 H Random Glucose 108 Calcium 7.2 L Total Bilirubin 0.5 AST 42 H D ALT 34 Alkaline Phosphatase 86 Total Protein 6.4 Albumin 3.2 Globulin 3.3 Albumin/Globulin Ratio 1.0 L Assessment & Plan - Assessment and Plan (Free Text) Assessment: 67 year old female with ventilatory dependent respiratory failure who has been intubated for ten days and has failed multiple weaning trial, rendering her an unsafe candidate to extubate, and thus would benefit from tracheostomy and gastrostomy tube placement. Plan: Tracheostomy and gastrostomy tube placement scheduled for tomorrow - Will hold tube feeding after midnight, and obtain CBC, BMP, and PT/PTT preoperatively. - Date & Time Date: 08/16/17 Time: 09:27
[2017-08-16] MEDS: Fentanyl 1000mcg/100ml NS 1,000 MCG/100 ML BAG IV PRN (08:24)
--- NOTE | 2017-08-16 09:21 | PN ---
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 Examined at bedside. The patient is on the ventilator at 40% FiO2 and we will have a vent weaning trial today. PHYSICAL EXAMINATION: VITAL SIGNS: Note that her temperature is 97.8, her pulse is 70, respirations are 18, and BP is 143/65. SKIN: Warm and dry. HEENT: Head atraumatic, normocephalic. Eyes are reactive to light. Ears, nose, and throat seemed to be within normal limits. NECK: Supple. No JVD. No thyroid enlargement or lymph nodes. HEART: Has regular rate and rhythm. Normal S1 and S2. LUNGS: Reveal decreased breath sounds bilaterally with occasional rhonchi. ABDOMEN: Soft. Decreased bowel sounds. GENITALIA AND RECTAL: Deferred. MUSCULOSKELETAL: No joint deformities. EXTREMITIES: Reveal trace lower extremity edema. NEUROLOGIC: She seems to be grossly intact even though on the ventilator. LABORATORY DATA: White count of 8.1, hemoglobin is 9.1, and hematocrit is 27.8 with platelets of 239,000. Her sodium is 141, potassium is 3.5, chloride is 105, CO2 of 25 with BUN of 45, creatinine of 2.9, and glucose of 110. IMPRESSION: This patient has hypercapnic respiratory failure requiring ventilator support with FiO2 of 40%. The patient is hemodynamically stable, but of note has repeated vent weaning failures. The patient has acute kidney injury as well as a history of kyphoscoliosis and diaphragmatic dysfunction. The patient has renal insufficiency, anemia, and hypokalemia. PLAN: We will correct the potassium. We will continue with vent support and weaning protocol. The patient is on antibiotics of exact time and is getting DuoNeb as a bronchodilator. She is on fentanyl as well as propofol and Solu-Medrol. The patient will continue with Protonix and we will continue to treat aggressively along with the other consultants and the primary care doctor. Da Nolasco MD
[2017-08-16] MEDS ORDERED: Multi Vitamins 15 mL UD Oral Solution PO ONE (09:45)
--- NOTE | 2017-08-16 10:45 | RAD ---
HISTORY: ET tube placement COMPARISON: 08/13/2017 FINDINGS: LUNGS: Linear infiltrate right upper lobe, probable atelectasis. PLEURA: No significant pleural effusion identified, no pneumothorax apparent. CARDIOVASCULAR: Mild cardiomegaly OSSEOUS STRUCTURES: No significant abnormalities. VISUALIZED UPPER ABDOMEN: Normal. OTHER FINDINGS: Endotracheal and nasogastric tubes in satisfactory position IMPRESSION: Minimal linear infiltrate right upper lobe, probable atelectasis. Central tubes in satisfactory position
--- NOTE | 2017-08-16 10:58 | CP.PCM.PN ---
<Shan Zepeda - Last Filed: 08/16/17 10:52> Subjective - Date & Time of Evaluation Date of Evaluation: 08/16/17 Time of Evaluation: 06:00 - Subjective Subjective: Patient seen and evaluated bedside in ICU. Patient still intubated but alert and awake. No acute issues overnight. Unable to obtian full ROS due to intubated status. Objective - Vital Signs/Intake and Output Vital Signs (last 24 hours): Temp Pulse Resp BP Pulse Ox 99.0 F 70 26 H 140/78 99 08/16/17 08:10 08/16/17 08:10 08/16/17 07:44 08/16/17 08:00 08/16/17 08:10 Intake and Output: 08/16/17 08/16/17 06:59 18:59 Intake Total 1499 80 Output Total 1400 Balance 99 80 - Medications Medications: Current Medications Albuterol/Ipratropium (Duoneb 3 Mg/0.5 Mg (3 Ml) Ud) 3 ml IH Q6 PRN PRN Reason: SOB Last Admin: 08/14/17 19:37 Dose: 3 ml Albuterol/Ipratropium (Duoneb 3 Mg/0.5 Mg (3 Ml) Ud) 3 ml IH [id number] [facility] Last Admin: 08/16/17 07:44 Dose: 3 ml Ergocalciferol (Drisdol 50,000 Intl Units Cap) 1 cap PO Q7D [facility] Last Admin: 08/12/17 17:09 Dose: 1 cap Ferrous Sulfate (Feosol Liq) 300 mg PO TID [facility] Propofol (Diprivan) 1,000 mg in 100 mls @ 2.885 mls/hr IV .Q24H PRN; Protocol; 5 MCG/KG/MIN PRN Reason: TITRATE PER MD ORDER Last Titration: 08/12/17 09:23 Dose: 0 mcg/kg/min, 0 mls/hr Aztreonam (Azactam 1 Gm) 100 mls @ 100 mls/hr IVPB Q12 [facility] PRN Reason: Protocol Last Admin: 08/15/17 21:25 Dose: 100 mls/hr Lactated Ringer's (Lactated Ringer's) 1,000 mls @ 100 mls/hr IV .Q10H [facility] Last Admin: 08/15/17 20:38 Dose: 100 mls/hr Fentanyl Citrate (Fentanyl Citrate/Sodium Chloride 1 Mg/100 Ml) 1,000 mcg in 100 mls @ 2 mls/hr IV .Q24H PRN; Protocol; 20 MCG/HR PRN Reason: TITRATE PER MD ORDER Last Admin: 08/16/17 08:24 Dose: 20 mcg/hr, 2 mls/hr Insulin Human Lispro (Humalog Med) 0 units SC Q6H [facility] PRN Reason: Protocol Last Admin: 08/16/17 01:32 Dose: Not Given Levothyroxine Sodium (Synthroid) 50 mcg IVP DAILY [facility] Last Admin: 08/15/17 11:28 Dose: 50 mcg Methylprednisolone (Solu-Medrol) 20 mg IVP Q12 [facility] Multivitamins/Vitamin C (Multi-Delyn Liquid) 15 ml PO 0800 [facility] Pantoprazole Sodium (Protonix Inj) 40 mg IVP DAILY [facility] Last Admin: 08/15/17 11:27 Dose: 40 mg Zinc Sulfate (Zinc Sulfate 220 Mg Cap) 220 mg PO DAILY [facility] Last Admin: 08/15/17 11:30 Dose: 220 mg - Labs Labs: 08/16/17 05:48 08/16/17 05:48 PT 13.1 SECONDS (9.4-12.5) H 06/15/17 11:00 INR 1.19 (0.93-1.08) H 06/15/17 11:00 APTT 31.3 Seconds (25.1-36.5) 06/15/17 11:00 - Constitutional Appears: No Acute Distress - Head Exam Head Exam: NORMAL INSPECTION - Eye Exam Eye Exam: Normal appearance - ENT Exam ENT Exam: Mucous Membranes Moist - Neck Exam Neck Exam: absent: Lymphadenopathy, Tenderness - Respiratory Exam Respiratory Exam: Clear to Ausculation Bilateral, NORMAL BREATHING PATTERN - Cardiovascular Exam Cardiovascular Exam: REGULAR RHYTHM, +S1, +S2 - GI/Abdominal Exam GI & Abdominal Exam: Distended, Soft - Extremities Exam Extremities Exam: Pedal Edema - Neurological Exam Neurological Exam: Alert, Awake Assessment and Plan - Assessment and Plan (Free Text) Assessment: Patient is a 67 year old female with history of asthma, arthritis, anemia, and obesity who was originally admitted for right lower extremity cellulitis and UTI. During her hospitalization course she developed acute hypercapneic respiratory failure secondary to asthma/RA airway disease/kyphoscoliosis in setting of cdiff colitis. She is monitored in the ICU. Plan: 1. Hypercapnic Respiratory Failure - patient awake opens eyes - patient is intubated and ventilated - Surgery consulted jovi hugo today - CT head no acute findings - CXR reviewed; minimal infiltrate in Left lung base; see full reports - continue to monitor respiratory status - c/w duonebs and solumedrol and pulmicort - Aztreonam D/C - procal 1.49 2. Abdominal Distension - likely 2/2 Constipation/fecal impaction - CT Abdomen Pelvis with PO and IV Contrast (07/18): Interstitial and airspace disease in the lung bases; mild cardiomegaly and atherosclerotic disease; fatty liver; gallstones; possible pyelonephritis; mild ileus, no obstruction; constipation with fecal impaction - abdominal flat plate-No acute changes or findings -tube feeding, will increase 10ml per shift 3. Normocytic anemia - Hemoglobins reviewed, trended, will transfuse if Hbg < 7.0 - Monitor daily 4. Cdiff colitis - rectal tube removed - Stool C diff- positive antigen, negative toxin lat week - re ordered stool c diff 5. Acute Kidney injury - Creatinine 1.5 from 2.0 : improving - Nephrology consulted - Monitor and maintain MAP > 65 - Monitor Input/Output, daily weights and renal function with basic metabolic panel - supplement electrolytes as needed - Anti-GBM -, anca - has normal complements - weekly vitamin D supplements - c/w IVF hydration - hold BILLY/ARB - avoid nephrotoxic agents and renally dose medications -urine output 2850 improving 6. HTN - BP reviewed, trended, and appreciated - hold zestril due to CATE 7. Prophylaxis: - GI ppx Protonix - DVT ppx: Heparin <Juan Rodriguez - Last Filed: 08/16/17 12:28> Objective - Vital Signs/Intake and Output Vital Signs (last 24 hours): Temp Pulse Resp BP Pulse Ox 99.0 F 70 26 H 140/78 99 08/16/17 08:10 08/16/17 08:10 08/16/17 07:44 08/16/17 08:00 08/16/17 08:10 Intake and Output: 08/16/17 08/16/17 06:59 18:59 Intake Total 1499 80 Output Total 1400 Balance 99 80 - Medications Medications: Current Medications Albuterol/Ipratropium (Duoneb 3 Mg/0.5 Mg (3 Ml) Ud) 3 ml IH Q6 PRN PRN Reason: SOB Last Admin: 08/14/17 19:37 Dose: 3 ml Albuterol/Ipratropium (Duoneb 3 Mg/0.5 Mg (3 Ml) Ud) 3 ml IH [id number] [facility] Last Admin: 08/16/17 07:44 Dose: 3 ml Ergocalciferol (Drisdol 50,000 Intl Units Cap) 1 cap PO Q7D [facility] Last Admin: 08/12/17 17:09 Dose: 1 cap Ferrous Sulfate (Feosol Liq) 300 mg PO TID [facility] Last Admin: 08/16/17 11:30 Dose: 300 mg Aztreonam (Azactam 1 Gm) 100 mls @ 100 mls/hr IVPB Q12 [facility] PRN Reason: Protocol Last Admin: 08/16/17 11:29 Dose: 100 mls/hr Lactated Ringer's (Lactated Ringer's) 1,000 mls @ 100 mls/hr IV .Q10H [facility] Last Admin: 08/15/17 20:38 Dose: 100 mls/hr Fentanyl Citrate (Fentanyl Citrate/Sodium Chloride 1 Mg/100 Ml) 1,000 mcg in 100 mls @ 2 mls/hr IV .Q24H PRN; Protocol; 20 MCG/HR PRN Reason: TITRATE PER MD ORDER Last Admin: 08/16/17 08:24 Dose: 20 mcg/hr, 2 mls/hr Insulin Human Lispro (Humalog Med) 0 units SC Q6H [facility] PRN Reason: Protocol Last Admin: 08/16/17 11:50 Dose: Not Given Levothyroxine Sodium (Synthroid) 50 mcg IVP DAILY [facility] Last Admin: 08/16/17 11:31 Dose: 50 mcg Methylprednisolone (Solu-Medrol) 20 mg IVP Q12 [facility] Multivitamins/Vitamin C (Multi-Delyn Liquid) 15 ml PO 0800 [facility] Pantoprazole Sodium (Protonix Inj) 40 mg IVP DAILY [facility] Last Admin: 08/16/17 11:31 Dose: 40 mg Zinc Sulfate (Zinc Sulfate 220 Mg Cap) 220 mg PO DAILY [facility] Last Admin: 08/16/17 11:31 Dose: 220 mg - Labs Labs: 08/16/17 05:48 08/16/17 05:48 PT 13.1 SECONDS (9.4-12.5) H 06/15/17 11:00 INR 1.19 (0.93-1.08) H 06/15/17 11:00 APTT 31.3 Seconds (25.1-36.5) 06/15/17 11:00 Attending/Attestation - Attestation I have personally seen and examined this patient.: Yes I have fully participated in the care of the patient.: Yes I have reviewed all pertinent clinical information, including history, physical exam and plan: Yes Notes (Text): 08/16/17 12:25 67 year old female who is currently intubated in ICU secondary to hypercapneic respiratory failure secondary to COPD exacerbation. Patient has failed weakning trials. Surgery evaluation was requested for tracheostomy and PEG tube. Continue with iv antibiotics as per ID for pneumonia. Renal function continues to improve. Juan Rodriguez MD Hospitalist.
[2017-08-16] MEDS: Aztreonam 1 Gm in NS 100mL 100 ML IVPB SCH ×2 (11:29→21:22)
[2017-08-16] MEDS: Ferrous Sulfate 300 mg/5 mL Liq UD PO SCH ×3 (11:30→17:07)
[2017-08-16] MEDS: Levothyroxine 100 mcg (0.1 mg) Inj IVP SCH (11:31)
--- NOTE | 2017-08-16 11:53 | CP.PCM.PN ---
Subjective - Date & Time of Evaluation Date of Evaluation: 08/16/17 Time of Evaluation: 11:52 - Subjective Subjective: Follow up Nephrology Consultation (covering for Dr Agustín Bai): Assessment: critical non-oliguric Acute Kidney Injury (N17.9) possibly hemodynamic, GI fluid loss, C diff diarrhoea leading to ATN: improving morbid obesity, arthritis, anemia, asthma, RAS and RA factor+ recent cellulitis, UTI, fecal impaction acute hypercapnic respi failure hypocalcemia, hyperphosphatemia, acidosis, hypokalemia vit D def Plan No acute need for renal replacement therapy at this time. UOP and creat better maintain hemodynamics stable. No ACEI/ARB due to CATE Monitor Input/Output, daily weights and renal function with basic metabolic panel continue with IVF as ordered supplement electrolytes as needed started phos binders and bicarb: will d/c both started weekly Vit D supplements GN w/up neg with Anti-GBM (neg), anca (neg). has normal complements Dose meds/antibiotics for reduced GFR. Avoid fleets enema/magnesium based laxatives. Avoid nephrotoxins/NSAIDs/ iodinated contrast (unless needed emergently) Glycemic control Further work up/management as per primary team Thanks for allowing me to participate in care of your patient. Will follow patient with you. Please call if any Qs. d/w team Dr Abel Pierson Office: [phone] Chief Complaint; unable to obtain reason for consult: kidney failure source of info: EMR HPI: Pt is a 67 F with hx of morbid obesity, arthritis, anemia, asthma, RAS and RA factor+ who had prolonged hospitalization for cellulitis which was treated with multiple antibiotics and also had UTI treated with antibiotics, constipation with fecal impaction, was awaiting to go to rehab but had hypercapnic respi failure 08/06/17 which required intubation. pt also having diarrhoea now. renal consulted since serum creatinine 1.6 on 08/06 and 2.6 . her serum creatinine was normal prior to that No recent iodinated contrast exposure. intermittent episodes of low BP (90/50) ROS: pt intubated Physical Examination: General Appearance: orally intubated. no distress. obese Vitals reviewed and noted as below Head; Atraumatic, normocephalic ENT: orally intubated EYES: Pupils are equal, round and reactive to light accommodation. Eye muscles and extraocular movement intact. Sclera is anicteric. Neck; supple no lymphadenopathy, no thyromegaly or bruit Lungs: Normal respiratory rate/effort. Breath sounds bilateral rales+ Heart: Normal rate. s1s2 normal. No rub or gallop. Extremities: no edema. No varicose veins Neurological: Patient is awake follow commands Skin: Warm and dry. Normal turgor. No rash. Palpitation: Normal elasticity for age. dressing over legs + Abdomen: Abdomen is soft. Bowel sounds +. There is no abdominal tenderness, no guarding/rigidity no organomegaly. has rectal tube for diarrhoea Psych: unable MSK: no joint tenderness or swelling. Digits and nails normal, no deformity : kidney or bladder not palpable. has khanna + Labs/imaging reviewed. Past medical history, past surgical history, family history, social history, allergy reviewed and noted as below Family hx: no hx of CKD. Rest non-contributory work up: renal sono: neg Urine Na 88 FeNa2.1% urine eos neg normal complements Objective - Vital Signs/Intake and Output Vital Signs (last 24 hours): Temp Pulse Resp BP Pulse Ox 99.0 F 70 26 H 140/78 99 08/16/17 08:10 08/16/17 08:10 08/16/17 07:44 08/16/17 08:00 08/16/17 08:10 Intake and Output: 08/16/17 08/16/17 06:59 18:59 Intake Total 1499 80 Output Total 1400 Balance 99 80 - Medications Medications: Current Medications Albuterol/Ipratropium (Duoneb 3 Mg/0.5 Mg (3 Ml) Ud) 3 ml IH Q6 PRN PRN Reason: SOB Last Admin: 08/14/17 19:37 Dose: 3 ml Albuterol/Ipratropium (Duoneb 3 Mg/0.5 Mg (3 Ml) Ud) 3 ml IH [id number] [facility] Last Admin: 08/16/17 07:44 Dose: 3 ml Ergocalciferol (Drisdol 50,000 Intl Units Cap) 1 cap PO Q7D [facility] Last Admin: 08/12/17 17:09 Dose: 1 cap Ferrous Sulfate (Feosol Liq) 300 mg PO TID [facility] Last Admin: 08/16/17 11:30 Dose: 300 mg Aztreonam (Azactam 1 Gm) 100 mls @ 100 mls/hr IVPB Q12 [facility] PRN Reason: Protocol Last Admin: 08/16/17 11:29 Dose: 100 mls/hr Lactated Ringer's (Lactated Ringer's) 1,000 mls @ 100 mls/hr IV .Q10H [facility] Last Admin: 08/15/17 20:38 Dose: 100 mls/hr Fentanyl Citrate (Fentanyl Citrate/Sodium Chloride 1 Mg/100 Ml) 1,000 mcg in 100 mls @ 2 mls/hr IV .Q24H PRN; Protocol; 20 MCG/HR PRN Reason: TITRATE PER MD ORDER Last Admin: 08/16/17 08:24 Dose: 20 mcg/hr, 2 mls/hr Insulin Human Lispro (Humalog Med) 0 units SC Q6H [facility] PRN Reason: Protocol Last Admin: 08/16/17 11:50 Dose: Not Given Levothyroxine Sodium (Synthroid) 50 mcg IVP DAILY [facility] Last Admin: 08/16/17 11:31 Dose: 50 mcg Methylprednisolone (Solu-Medrol) 20 mg IVP Q12 [facility] Multivitamins/Vitamin C (Multi-Delyn Liquid) 15 ml PO 0800 [facility] Pantoprazole Sodium (Protonix Inj) 40 mg IVP DAILY [facility] Last Admin: 08/16/17 11:31 Dose: 40 mg Zinc Sulfate (Zinc Sulfate 220 Mg Cap) 220 mg PO DAILY [facility] Last Admin: 08/16/17 11:31 Dose: 220 mg - Labs Labs: 08/16/17 05:48 08/16/17 05:48 PT 13.1 SECONDS (9.4-12.5) H 06/15/17 11:00 INR 1.19 (0.93-1.08) H 06/15/17 11:00 APTT 31.3 Seconds (25.1-36.5) 06/15/17 11:00
[2017-08-16] MEDS: Lactated Ringer's 1,000 ML IV SCH (16:45)
--- NOTE | 2017-08-16 20:10 | CP.PCM.PN ---
Subjective - Date & Time of Evaluation Date of Evaluation: 08/16/17 Time of Evaluation: 18:15 - Subjective Subjective: Infectious Disease Follow Up: August 16, 2017 67 yo female presenting with 3 weeks of RLE ulceration, swelling and leaking from the wound as well as multiple falls in the past 3 weeks. The patient has an extensive medical history of asthma, arthritis, vitamin C deficiency, and possible thyroid disease. Draining RLE ulceration... cellulitis improved/resolved. Multiple chronic medical issues. Still with persistent dry cough. Otherwise stable. Mild erythema and excoriation of the folds in the abdomen and under the breasts. UTI with Klebsiella earlier in hospitalization but had treatment with Cipro that is now completed. Social Issues. The patient had respiratory distress with no improvement from BiPAP. Patient required intubation and ventilation. Transferred to MICU for further care. The patient was started on Zyvox and Aztreonam IV. Patient had a positive C. Diff antigen but negative toxin. Remains intubated today. Appears stable. Chest X-ray not showing new findings. No leukocytosis. Cultures pending... so far negative. Patient unable to be weaned from ventilator. Supportive care. No fevers or leukocytosis. First two Procalcitonin equivocal. The patient had hypothermia ranging from 93.0 F starting from two days ago. Temperature did rise back up to 99.0 F and has been hovering around 97.7 F. Rechecking procalcitonin... now at 1.49. Difficulty from weaning from the ventilator. Patient is opening eyes and tracking now. Creatinine has been improving and is down to 1.5 from 2.0 now. Objective - Vital Signs/Intake and Output Vital Signs (last 24 hours): Temp Pulse Resp BP Pulse Ox 98.3 F 70 26 H 140/78 99 08/16/17 12:00 08/16/17 08:10 08/16/17 07:44 08/16/17 08:00 08/16/17 08:10 Intake and Output: 08/16/17 08/17/17 18:59 06:59 Intake Total 80 900 Output Total 1200 Balance 80 -300 - Medications Medications: Current Medications Albuterol/Ipratropium (Duoneb 3 Mg/0.5 Mg (3 Ml) Ud) 3 ml IH Q6 PRN PRN Reason: SOB Last Admin: 08/14/17 19:37 Dose: 3 ml Albuterol/Ipratropium (Duoneb 3 Mg/0.5 Mg (3 Ml) Ud) 3 ml IH [id number] [facility] Last Admin: 08/16/17 13:56 Dose: 3 ml Ergocalciferol (Drisdol 50,000 Intl Units Cap) 1 cap PO Q7D [facility] Last Admin: 08/12/17 17:09 Dose: 1 cap Ferrous Sulfate (Feosol Liq) 300 mg PO TID [facility] Last Admin: 08/16/17 17:07 Dose: 300 mg Heparin Sodium (Porcine) (Heparin) 5,000 units SC Q8 [facility] PRN Reason: Protocol Stop: 08/16/17 22:01 Last Admin: 08/16/17 16:46 Dose: 5,000 units Aztreonam (Azactam 1 Gm) 100 mls @ 100 mls/hr IVPB Q12 [facility] PRN Reason: Protocol Last Admin: 08/16/17 11:29 Dose: 100 mls/hr Lactated Ringer's (Lactated Ringer's) 1,000 mls @ 100 mls/hr IV .Q10H [facility] Last Admin: 08/16/17 16:45 Dose: 100 mls/hr Insulin Human Lispro (Humalog Med) 0 units SC Q6H [facility] PRN Reason: Protocol Last Admin: 08/16/17 17:43 Dose: Not Given Levothyroxine Sodium (Synthroid) 50 mcg IVP DAILY [facility] Last Admin: 08/16/17 11:31 Dose: 50 mcg Methylprednisolone (Solu-Medrol) 20 mg IVP Q12 [facility] Multivitamins/Vitamin C (Multi-Delyn Liquid) 15 ml PO 0800 [facility] Pantoprazole Sodium (Protonix Inj) 40 mg IVP DAILY [facility] Last Admin: 08/16/17 11:31 Dose: 40 mg Zinc Sulfate (Zinc Sulfate 220 Mg Cap) 220 mg PO DAILY [facility] Last Admin: 08/16/17 11:31 Dose: 220 mg - Labs Labs: 08/16/17 05:48 08/16/17 05:48 PT 13.1 SECONDS (9.4-12.5) H 06/15/17 11:00 INR 1.19 (0.93-1.08) H 06/15/17 11:00 APTT 31.3 Seconds (25.1-36.5) 06/15/17 11:00 - Constitutional Appears: Non-toxic, No Acute Distress, Chronically Ill - Head Exam Additional comments: intubated and ventilated - Eye Exam Eye Exam: EOMI, PERRL Pupil Exam: NORMAL ACCOMODATION, PERRL - ENT Exam ENT Exam: Mucous Membranes Moist, Normal External Ear Exam, TM's Normal Bilaterally - Neck Exam Additional comments: intubated and ventilated. - Respiratory Exam Respiratory Exam: Clear to Ausculation Bilateral, NORMAL BREATHING PATTERN. absent: Rales, Rhonchi, Wheezes - Cardiovascular Exam Cardiovascular Exam: REGULAR RHYTHM, RRR, +S1, +S2 - GI/Abdominal Exam GI & Abdominal Exam: Soft, Normal Bowel Sounds. absent: Distended, Tenderness - Extremities Exam Extremities Exam: Full ROM, Normal Inspection - Neurological Exam Neurological Exam: Alert, Awake, CN II-XII Intact, Oriented x3 - Skin Skin Exam: Intact, Normal Color Assessment and Plan - Assessment and Plan (Free Text) Assessment: 67 yo female with multiple medical issues with PCN allergy diagnosed as a teenager verified by an Counsel. The patient with leukocytosis. Await cultures especially urine cultures. Diabetes and HTN history? Local wound care. Elevated ESR and C-reactive protein. Completed Vancomycin and Aztreonam for antibiotic coverage. UTI with E. coli sensitive to Azactam. Was on Vancomycin for cellulitis IV. For UTI for 5-7 days treatment... completed. Supportive care. Cellulitis appears improved. No new issues. Social issues currently. Homeless at this time. CT scan of chest done. No infiltrates seen. Afebrile the past 24 hours. Mild congestion noted in CT with small pulmonary effusions. No leukocytosis. Slightly elevated procalcitonin (0.66) which is undefined without stronger evidence for pneumonia. When encouraged, she is able to use the incentive spirometer without issues and ambulate with minimal difficulty. Repeat procalcitonin showing 0.71. UTI with Klebsiella. Sensitive to Cipro. Was on Cipro for 5 day course at 500mg PO BID. Completed the antibiotic course. Stable currently. No new issues. Off antibiotics at this time. Multiple social issues. Chronic cough still with periods of hacking. Complained of Vague mild general pains. Awaiting placement. Yesterday the patient developed respiratory failure and required intubation. Started on Zyvox and Aztreonam IV. Will add Flagyl as well. No leukocytosis. Noted C. Diff with positive antigen but negative toxin. Supportive care. Remains intubated and ventilated. Cultures pending. C. Diff negative to date. No leukocytosis or fever reported. Essentially clear X-ray. Hypothermia episodes most of yesterday to this morning. Noted gram positive cocci in most recent urine culture. Still awaiting identification. Supportive care. Patient did improve mentally. Still difficulty in weaning off respirator. She remains intubated. Thank you for allowing me to participate in the care of the patient, we will follow with you.
[2017-08-16] MEDS ORDERED: MethylPREDNISolone 40 mg Vial IVP SCH (22:00)
[2017-08-17] MEDS: Insulin Lispro (humaLOG) MEDIUM Coverage SC SCH ×5 (00:30→19:25)
[2017-08-17] MEDS: Albuterol-Ipratrop 3 mg / 0.5 (3 ml) UD IH SCH ×4 (04:06→20:30)
[2017-08-17 07:06] LABS: BASO # 0.02 K/mm3 (0.0-2.0); BASO % 0.2 % (0.0-3.0); EOS % 0.4 % (1.5-5.0); GRAN # 6.61 (1.4-6.5); GRAN % 78.2 % (50.0-68.0); HEMOGLOBIN 8.8 g/dL (12.0-16.0); LYMPH # 1.1 (1.2-3.4); LYMPH % 12.4 % (22.0-35.0); MEAN CELL VOLUME 83.2 fl (80.0-105.0); MEAN CORPUSCULAR HEMOGLOBIN 26.3 pg (25.0-35.0); MEAN CORPUSCULAR HGB CONC 31.7 g/dl (31.0-37.0); MEAN PLATELET VOLUME 9.1 fl (7.0-11.0); MONO # 0.7 (0.1-0.6); MONO % 8.8 % (1.0-6.0); RBC 3.34 10^6/uL (3.5-6.1); WHITE BLOOD COUNT 8.5 10^3/ul (4.5-11.0)
[2017-08-17 07:13] LABS: INR 1.09 (0.93-1.08); PARTIAL THROMBOPLASTIN TIME 27.7 Seconds (25.1-36.5); PROTHROMBIN TIME 12.5 SECONDS (9.4-12.5)
--- NOTE | 2017-08-17 07:41 | CP.CCUPN ---
<Dakota Phipps - Last Filed: 08/17/17 07:41> CCU Subjective - Physician Review Subjective (Free Text): Critical Care Progress note Patient seen and examined at bedside this AM. Intubated PRVC 40 5 26 350. failed pressure support trial. Responds to simple verbal commands. Nursing notes reviewed, no acute events overnight. Patient Afebrile, normotensive, off sedation. Recent culture growth from urine showing gram + cocci. final result pending. NPO from midnight for Trach and G-Tube today. +BM and Flatus CCU Objective - Vital Signs / Intake & Output Vital Signs (Last 4 hours): Vital Signs Resp Pulse Ox 08/17/17 07:25 27 H 100 Intake and Output (Last 8hrs): Intake & Output 08/16/17 08/17/17 08/17/17 22:59 06:59 14:59 Intake Total 900 Output Total 1200 Balance -300 Intake: IV 800 left FA 800 Oral 100 Output: Urine 1200 Urethral (Christensen) 1200 Other: # Bowel Movements 1 - Physical Exam Head: Positive for: Atraumatic, Normocephalic Pupils: Positive for: PERRL Extroacular Muscles: Positive for: EOMI Conjunctiva: Positive for: Normal Mouth: Positive for: Moist Mucous Membranes Pharnyx: Positive for: Normal. Negative for: ERYTHEMA, EXUDATE, TONSILS ENLARGED Nose (External): Positive for: Atraumatic Nose (Internal): Positive for: Normal Inspection Neck: Positive for: Normal Range of Motion Respiratory/Chest: Positive for: Clear to Auscultation, Good Air Exchange. Negative for: Respiratory Distress, Accessory Muscle Use, Wheezes, Retracting, Rhonchi Cardiovascular: Positive for: Regular Rate and Rhythm, Normal S1, S2. Negative for: Murmurs Abdomen: Positive for: Normal Bowel Sounds. Negative for: Tenderness, Distention, Peritoneal Signs Back: Positive for: Normal Inspection. Negative for: CVA Tenderness, Midline Tenderness Upper Extremity: Positive for: Normal Inspection, Normal ROM, NORMAL PULSES, Neurovascularly Intact, Capillary Refill < 2s. Negative for: Cyanosis, Edema, Erythema Lower Extremity: Positive for: NORMAL PULSES, Normal ROM, Swelling, Erythema, Temperature Abnormalties, Neurovascularly Intact, Capillary Refill < 2 s. Negative for: Edema, CALF TENDERNESS Neurological: Positive for: GCS=15, CN II-XII Intact, Speech Normal, Motor Func Grossly Intact, Normal Sensory Function, Normal Cerebellar Funct, Gait Normal, Memory Normal Skin: Positive for: Warm, Dry, Normal Color. Negative for: Rashes Psychiatric: Positive for: Alert, Oriented x 3, Normal Insight, Normal Concentration - Medications Active Medications: Active Medications Generic Name Dose Route Start Last Admin Trade Name Freq PRN Reason Stop Dose Admin Albuterol/Ipratropium 3 ml 08/12/17 10:57 08/14/17 19:37 Duoneb 3 Mg/0.5 Mg (3 Ml) Ud IH 3 ml Q6 PRN Administration SOB Albuterol/Ipratropium 3 ml 08/15/17 11:36 08/17/17 07:19 Duoneb 3 Mg/0.5 Mg (3 Ml) Ud IH 3 ml [id number] [facility] Administration Ergocalciferol 1 cap 08/12/17 13:30 08/12/17 17:09 Drisdol 50,000 Intl Units Cap PO 1 cap Q7D [facility] Administration Ferrous Sulfate 300 mg 08/16/17 10:00 08/16/17 17:07 Feosol Liq PO 300 mg TID [facility] Administration Aztreonam 100 mls @ 100 mls/hr 08/07/17 22:00 08/16/17 21:22 Azactam 1 Gm IVPB 100 mls/hr Q12 [facility] Administration Protocol Lactated Ringer's 1,000 mls @ 100 mls/hr 08/12/17 10:49 08/16/17 16:45 Lactated Ringer's IV 100 mls/hr .Q10H [facility] Administration Insulin Human Lispro 0 units 08/14/17 18:00 08/17/17 01:21 Humalog Med SC Not Given Q6H [facility] Protocol Levothyroxine Sodium 50 mcg 08/11/17 10:00 08/16/17 11:31 Synthroid IVP 50 mcg DAILY [facility] Administration Methylprednisolone 10 mg 08/17/17 07:40 Solu-Medrol IVP Q12 [facility] Multivitamins/Vitamin C 15 ml 08/17/17 08:00 Multi-Delyn Liquid PO 0800 [facility] Nystatin 1 gm 08/17/17 10:00 Nystop Topical Powder TOP DAILY [facility] Pantoprazole Sodium 40 mg 08/07/17 10:00 08/16/17 11:31 Protonix Inj IVP 40 mg DAILY [facility] Administration Zinc Sulfate 220 mg 06/15/17 14:30 08/16/17 11:31 Zinc Sulfate 220 Mg Cap PO 220 mg DAILY [facility] Administration - Patient Studies Lab Studies: Lab Studies 08/17/17 08/17/17 08/17/17 Range/Units 05:45 05:45 00:33 WBC 8.5 (4.5-11.0) 10^3/ul RBC 3.34 L (3.5-6.1) 10^6/uL Hgb 8.8 L (12.0-16.0) g/dL Hct 27.8 L (36.0-48.0) % MCV 83.2 (80.0-105.0) fl MCH 26.3 (25.0-35.0) pg MCHC 31.7 (31.0-37.0) g/dl RDW 25.0 H (11.5-14.5) % Plt Count 212 (120.0-450.0) 10^3/uL MPV 9.1 (7.0-11.0) fl Gran % 78.2 H (50.0-68.0) % Lymph % (Auto) 12.4 L (22.0-35.0) % Coos % (Auto) 8.8 H (1.0-6.0) % Eos % (Auto) 0.4 L (1.5-5.0) % Baso % (Auto) 0.2 (0.0-3.0) % Gran # 6.61 H (1.4-6.5) Lymph # 1.1 L (1.2-3.4) Coos # 0.7 H (0.1-0.6) Eos # 0.0 (0.0-0.7) Baso # 0.02 (0.0-2.0) K/mm3 PT 12.5 (9.4-12.5) SECONDS INR 1.09 H (0.93-1.08) APTT 27.7 (25.1-36.5) Seconds POC Glucose (mg/dL) 105 (65-110) mg/dL 08/16/17 08/16/17 08/16/17 Range/Units 17:36 11:32 05:48 WBC 9.7 (4.5-11.0) 10^3/ul RBC 3.55 (3.5-6.1) 10^6/uL Hgb 9.6 L (12.0-16.0) g/dL Hct 29.4 L (36.0-48.0) % MCV 82.8 (80.0-105.0) fl MCH 27.0 (25.0-35.0) pg MCHC 32.7 (31.0-37.0) g/dl RDW 26.6 H (11.5-14.5) % Plt Count 240 (120.0-450.0) 10^3/uL MPV 9.4 (7.0-11.0) fl Gran % 79.9 H (50.0-68.0) % Lymph % (Auto) 9.7 L (22.0-35.0) % Coos % (Auto) 9.9 H (1.0-6.0) % Eos % (Auto) 0.5 L (1.5-5.0) % Baso % (Auto) 0.0 (0.0-3.0) % Gran # 7.79 H (1.4-6.5) Lymph # 0.9 L (1.2-3.4) Coos # 1.0 H (0.1-0.6) Eos # 0.1 (0.0-0.7) Baso # 0.00 (0.0-2.0) K/mm3 PT (9.4-12.5) SECONDS INR (0.93-1.08) APTT (25.1-36.5) Seconds POC Glucose (mg/dL) 76 76 (65-110) mg/dL Laboratory Results - last 24 hr 08/16/17 08/16/17 08/16/17 05:48 11:32 17:36 WBC 9.7 RBC 3.55 Hgb 9.6 L Hct 29.4 L MCV 82.8 MCH 27.0 MCHC 32.7 RDW 26.6 H Plt Count 240 MPV 9.4 Gran % 79.9 H Lymph % (Auto) 9.7 L Coos % (Auto) 9.9 H Eos % (Auto) 0.5 L Baso % (Auto) 0.0 Gran # 7.79 H Lymph # 0.9 L Coos # 1.0 H Eos # 0.1 Baso # 0.00 PT INR APTT POC Glucose (mg/dL) 76 76 08/17/17 08/17/17 08/17/17 00:33 05:45 05:45 WBC 8.5 RBC 3.34 L Hgb 8.8 L Hct 27.8 L MCV 83.2 MCH 26.3 MCHC 31.7 RDW 25.0 H Plt Count 212 MPV 9.1 Gran % 78.2 H Lymph % (Auto) 12.4 L Coos % (Auto) 8.8 H Eos % (Auto) 0.4 L Baso % (Auto) 0.2 Gran # 6.61 H Lymph # 1.1 L Coos # 0.7 H Eos # 0.0 Baso # 0.02 PT 12.5 INR 1.09 H APTT 27.7 POC Glucose (mg/dL) 105 Fingerstick Blood Sugar Results: 105 Critical Care Progress Note - Nutrition Nutrition: Nutrition Category Date Time Status Heart Healthy Diet [DIET] Diets 07/27/17 Dinner Ordered Assessment/Plan - Assessment and Plan (Free Text) Assessment: 67F w/ ventilator dependent respiratory failure intubated on 08/06/17. Tube feeds started for nutrition. Off sedation and pressors. Currently AAOx3. Multiple failed attempts to wean from mechanical ventilation. Currently afebrile, hemodynamically stable, in no acute destress. Recent UTI growing gram positive cocci. Scheduled for Trach and G-Tube today per Surgery NPO past midnight Plan: Neuro: Pt awake, alert responds to verbal stimuli , follows commands and moves extremities. Cardio: Monitor vitals keep MAP > 65 Pulm: Trach today by Surgery team c/s Dr. Jain Taper steroids to 10 q12 Keep SaO2 > 92% GI: currently on tube feeds residual < 140 OR today for G-Tube placement ppx: PTX monitor BM Renal/Electrolytes: Good urine output; Cr trending down replete electrolytes PRN Hold BILLY-I Endo: maintain euvolemia, euglycemia Heme: ppx: subQ heparin Patient discussed with Dr. Sutherland critical care attending Dakota Phipps PGY1 <Ruddy Sutherland - Last Filed: 08/17/17 11:09> CCU Objective - Vital Signs / Intake & Output Vital Signs (Last 4 hours): Vital Signs Temp Pulse Resp Pulse Ox 08/17/17 08:09 96 H 08/17/17 07:50 99.0 F 81 100 08/17/17 07:40 99.0 F 80 100 08/17/17 07:30 99.0 F 86 100 08/17/17 07:25 27 H 100 08/17/17 07:20 99.0 F 96 H 100 08/17/17 07:10 99.1 F 91 H 100 Intake and Output (Last 8hrs): Intake & Output 08/16/17 08/17/17 08/17/17 22:59 06:59 14:59 Intake Total 900 1570 Output Total 1200 1300 Balance -300 270 Weight 224 lb 4.8 oz Intake: IV 800 1300 Left Antecubital 100 left FA 800 1200 Oral 100 Tube Feeding 270 Output: Urine 1200 1300 Urethral (Christensen) 1200 1300 Other: # Bowel Movements 1 1 - Medications Active Medications: Active Medications Generic Name Dose Route Start Last Admin Trade Name Freq PRN Reason Stop Dose Admin Albuterol/Ipratropium 3 ml 08/12/17 10:57 08/14/17 19:37 Duoneb 3 Mg/0.5 Mg (3 Ml) Ud IH 3 ml Q6 PRN Administration SOB Albuterol/Ipratropium 3 ml 08/15/17 11:36 08/17/17 07:19 Duoneb 3 Mg/0.5 Mg (3 Ml) Ud IH 3 ml [id number] ESCOBAR Administration Ergocalciferol 1 cap 08/12/17 13:30 08/12/17 17:09 Drisdol 50,000 Intl Units Cap PO 1 cap Q7D [facility] Administration Ferrous Sulfate 300 mg 08/16/17 10:00 08/16/17 17:07 Feosol Liq PO 300 mg TID [facility] Administration Aztreonam 100 mls @ 100 mls/hr 08/07/17 22:00 08/17/17 09:08 Azactam 1 Gm IVPB 100 mls/hr Q12 [facility]OB[facility] Administration Protocol Lactated Ringer's 1,000 mls @ 100 mls/hr 08/12/17 10:49 08/16/17 16:45 Lactated Ringer's IV 100 mls/hr .Q10H [facility] Administration Insulin Human Lispro 0 units 08/14/17 18:00 08/17/17 01:21 Humalog Med SC Not Given Q6H [facility] Protocol Levothyroxine Sodium 50 mcg 08/11/17 10:00 08/17/17 09:04 Synthroid IVP 50 mcg DAILY [facility]OB[facility] Administration Methylprednisolone 10 mg 08/17/17 07:40 08/17/17 09:04 Solu-Medrol IVP 10 mg Q12 [facility]OB[facility] Administration Multivitamins/Vitamin C 15 ml 08/17/17 08:00 Multi-Delyn Liquid PO 0800 [facility]OBAR Nystatin 1 gm 08/17/17 10:00 08/17/17 09:09 Nystop Topical Powder TOP 1 pow DAILY [facility]OB[facility] Administration Pantoprazole Sodium 40 mg 08/07/17 10:00 08/17/17 09:04 Protonix Inj IVP 40 mg DAILY [facility] Administration Zinc Sulfate 220 mg 06/15/17 14:30 08/16/17 11:31 Zinc Sulfate 220 Mg Cap PO 220 mg DAILY [facility]OB[facility] Administration - Patient Studies Lab Studies: Lab Studies 08/17/17 08/17/17 08/17/17 Range/Units 10:03 05:45 05:45 WBC 8.5 (4.5-11.0) 10^3/ul RBC 3.34 L (3.5-6.1) 10^6/uL Hgb 8.8 L (12.0-16.0) g/dL Hct 27.8 L (36.0-48.0) % MCV 83.2 (80.0-105.0) fl MCH 26.3 (25.0-35.0) pg MCHC 31.7 (31.0-37.0) g/dl RDW 25.0 H (11.5-14.5) % Plt Count 212 (120.0-450.0) 10^3/uL MPV 9.1 (7.0-11.0) fl Gran % 78.2 H (50.0-68.0) % Lymph % (Auto) 12.4 L (22.0-35.0) % Coos % (Auto) 8.8 H (1.0-6.0) % Eos % (Auto) 0.4 L (1.5-5.0) % Baso % (Auto) 0.2 (0.0-3.0) % Gran # 6.61 H (1.4-6.5) Lymph # 1.1 L (1.2-3.4) Coos # 0.7 H (0.1-0.6) Eos # 0.0 (0.0-0.7) Baso # 0.02 (0.0-2.0) K/mm3 PT (9.4-12.5) SECONDS INR (0.93-1.08) APTT (25.1-36.5) Seconds Sodium 140 (132-148) mmol/L Potassium 3.2 L (3.6-5.0) mmol/L Chloride 103 (98-107) mmol/L Carbon Dioxide 31 (21-33) mmol/L Anion Gap 10 (10-20) BUN 28 H (7-21) mg/dL Creatinine 1.3 H (0.7-1.2) mg/dl Est GFR ( Amer) 50 Est GFR (Non-Af Amer) 41 POC Glucose (mg/dL) 76 (65-110) mg/dL Random Glucose 91 (70-110) mg/dL Calcium 6.8 L* (8.4-10.5) mg/dL 08/17/17 08/17/17 08/16/17 Range/Units 05:45 00:33 17:36 WBC (4.5-11.0) 10^3/ul RBC (3.5-6.1) 10^6/uL Hgb (12.0-16.0) g/dL Hct (36.0-48.0) % MCV (80.0-105.0) fl MCH (25.0-35.0) pg MCHC (31.0-37.0) g/dl RDW (11.5-14.5) % Plt Count (120.0-450.0) 10^3/uL MPV (7.0-11.0) fl Gran % (50.0-68.0) % Lymph % (Auto) (22.0-35.0) % Coos % (Auto) (1.0-6.0) % Eos % (Auto) (1.5-5.0) % Baso % (Auto) (0.0-3.0) % Gran # (1.4-6.5) Lymph # (1.2-3.4) Coos # (0.1-0.6) Eos # (0.0-0.7) Baso # (0.0-2.0) K/mm3 PT 12.5 (9.4-12.5) SECONDS INR 1.09 H (0.93-1.08) APTT 27.7 (25.1-36.5) Seconds Sodium (132-148) mmol/L Potassium (3.6-5.0) mmol/L Chloride (98-107) mmol/L Carbon Dioxide (21-33) mmol/L Anion Gap (10-20) BUN (7-21) mg/dL Creatinine (0.7-1.2) mg/dl Est GFR ( Amer) Est GFR (Non-Af Amer) POC Glucose (mg/dL) 105 76 (65-110) mg/dL Random Glucose (70-110) mg/dL Calcium (8.4-10.5) mg/dL 08/16/17 Range/Units 11:32 WBC (4.5-11.0) 10^3/ul RBC (3.5-6.1) 10^6/uL Hgb (12.0-16.0) g/dL Hct (36.0-48.0) % MCV (80.0-105.0) fl MCH (25.0-35.0) pg MCHC (31.0-37.0) g/dl RDW (11.5-14.5) % Plt Count (120.0-450.0) 10^3/uL MPV (7.0-11.0) fl Gran % (50.0-68.0) % Lymph % (Auto) (22.0-35.0) % Coos % (Auto) (1.0-6.0) % Eos % (Auto) (1.5-5.0) % Baso % (Auto) (0.0-3.0) % Gran # (1.4-6.5) Lymph # (1.2-3.4) Coos # (0.1-0.6) Eos # (0.0-0.7) Baso # (0.0-2.0) K/mm3 PT (9.4-12.5) SECONDS INR (0.93-1.08) APTT (25.1-36.5) Seconds Sodium (132-148) mmol/L Potassium (3.6-5.0) mmol/L Chloride (98-107) mmol/L Carbon Dioxide (21-33) mmol/L Anion Gap (10-20) BUN (7-21) mg/dL Creatinine (0.7-1.2) mg/dl Est GFR ( Amer) Est GFR (Non-Af Amer) POC Glucose (mg/dL) 76 (65-110) mg/dL Random Glucose (70-110) mg/dL Calcium (8.4-10.5) mg/dL Laboratory Results - last 24 hr 08/16/17 08/16/17 08/17/17 11:32 17:36 00:33 WBC RBC Hgb Hct MCV MCH MCHC RDW Plt Count MPV Gran % Lymph % (Auto) Coos % (Auto) Eos % (Auto) Baso % (Auto) Gran # Lymph # Coos # Eos # Baso # PT INR APTT Sodium Potassium Chloride Carbon Dioxide Anion Gap BUN Creatinine Est GFR ( Amer) Est GFR (Non-Af Amer) POC Glucose (mg/dL) 76 76 105 Random Glucose Calcium 08/17/17 08/17/17 08/17/17 05:45 05:45 05:45 WBC 8.5 RBC 3.34 L Hgb 8.8 L Hct 27.8 L MCV 83.2 MCH 26.3 MCHC 31.7 RDW 25.0 H Plt Count 212 MPV 9.1 Gran % 78.2 H Lymph % (Auto) 12.4 L Coos % (Auto) 8.8 H Eos % (Auto) 0.4 L Baso % (Auto) 0.2 Gran # 6.61 H Lymph # 1.1 L Coos # 0.7 H Eos # 0.0 Baso # 0.02 PT 12.5 INR 1.09 H APTT 27.7 Sodium 140 Potassium 3.2 L Chloride 103 Carbon Dioxide 31 Anion Gap 10 BUN 28 H Creatinine 1.3 H Est GFR ( Amer) 50 Est GFR (Non-Af Amer) 41 POC Glucose (mg/dL) Random Glucose 91 Calcium 6.8 L* 08/17/17 10:03 WBC RBC Hgb Hct MCV MCH MCHC RDW Plt Count MPV Gran % Lymph % (Auto) Coos % (Auto) Eos % (Auto) Baso % (Auto) Gran # Lymph # Coos # Eos # Baso # PT INR APTT Sodium Potassium Chloride Carbon Dioxide Anion Gap BUN Creatinine Est GFR ( Amer) Est GFR (Non-Af Amer) POC Glucose (mg/dL) 76 Random Glucose Calcium Critical Care Progress Note - Nutrition Nutrition: Nutrition Category Date Time Status Heart Healthy Diet [DIET] Diets 07/27/17 Dinner Ordered Assessment/Plan - Assessment and Plan (Free Text) Plan: Pt seen and examined, with resident on rounds, agree with note with following additions/exceptions: Patient is 67yo female a/w hypercapnic resp failure, ventilatory dependent, has failed multiple weaning trials. Currently afebrile, HD stable, comfortable, off pressors, in NAD. Renal function stable. Hypercapnic resp Failure, intubated Oliguria/renal Failure,improving Obesity COPD Recommend: - cont with ventilatory support, low tidal vol ventilation, maintain Pplateau<30 - daily sedation vacation, CPAP trial failed - Trach/PEG today - follow up cultures, - DC solumedrol - monitor urine output, BUN/Cr - Hold BILLY-I - BP control - follow up renal, - Hold feeds - FS control - GI ppx - DVT ppx - Monitor in MICU
[2017-08-17 07:53] LABS: CALCIUM 6.8 mg/dL (8.4-10.5)
[2017-08-17] MEDS: Multi Vitamins 15 mL UD Oral Solution PO SCH (08:20)
[2017-08-17] MEDS: MethylPREDNISolone 40 mg Vial IVP SCH ×2 (09:04→22:09)
[2017-08-17] MEDS: Levothyroxine 100 mcg (0.1 mg) Inj IVP SCH (09:04)
[2017-08-17] MEDS: Aztreonam 1 Gm in NS 100mL 100 ML IVPB SCH ×2 (09:08→22:09)
[2017-08-17] MEDS: Nystatin 100,000 Units/gm Topical Pow(15 gm) TOP SCH (09:09)
--- NOTE | 2017-08-17 11:22 | CP.PCM.PN ---
<Shan Zepeda - Last Filed: 08/17/17 11:23> Subjective - Date & Time of Evaluation Date of Evaluation: 08/17/17 Time of Evaluation: 06:00 - Subjective Subjective: Patient seen and evaluated bedside in the ICU. No acute issues overnight. Unable to obtain full ROS due to intubated status. Objective - Vital Signs/Intake and Output Vital Signs (last 24 hours): Temp Pulse Resp BP Pulse Ox 99.0 F 96 H 27 H 160/73 H 100 08/17/17 07:50 08/17/17 08:09 08/17/17 07:25 08/17/17 07:00 08/17/17 07:50 Intake and Output: 08/17/17 08/17/17 06:59 18:59 Intake Total 2470 Output Total 2500 Balance -30 - Medications Medications: Current Medications Albuterol/Ipratropium (Duoneb 3 Mg/0.5 Mg (3 Ml) Ud) 3 ml IH Q6 PRN PRN Reason: SOB Last Admin: 08/14/17 19:37 Dose: 3 ml Albuterol/Ipratropium (Duoneb 3 Mg/0.5 Mg (3 Ml) Ud) 3 ml IH [id number] [facility] Last Admin: 08/17/17 07:19 Dose: 3 ml Ergocalciferol (Drisdol 50,000 Intl Units Cap) 1 cap PO Q7D [facility] Last Admin: 08/12/17 17:09 Dose: 1 cap Ferrous Sulfate (Feosol Liq) 300 mg PO TID [facility] Last Admin: 08/16/17 17:07 Dose: 300 mg Aztreonam (Azactam 1 Gm) 100 mls @ 100 mls/hr IVPB Q12 [facility] PRN Reason: Protocol Last Admin: 08/17/17 09:08 Dose: 100 mls/hr Lactated Ringer's (Lactated Ringer's) 1,000 mls @ 100 mls/hr IV .Q10H [facility] Last Admin: 08/16/17 16:45 Dose: 100 mls/hr Insulin Human Lispro (Humalog Med) 0 units SC Q6H [facility] PRN Reason: Protocol Last Admin: 08/17/17 01:21 Dose: Not Given Levothyroxine Sodium (Synthroid) 50 mcg IVP DAILY [facility] Last Admin: 08/17/17 09:04 Dose: 50 mcg Methylprednisolone (Solu-Medrol) 10 mg IVP Q12 [facility] Last Admin: 08/17/17 09:04 Dose: 10 mg Multivitamins/Vitamin C (Multi-Delyn Liquid) 15 ml PO 0800 [facility] Nystatin (Nystop Topical Powder) 1 gm TOP DAILY [facility] Last Admin: 08/17/17 09:09 Dose: 1 pow Pantoprazole Sodium (Protonix Inj) 40 mg IVP DAILY [facility] Last Admin: 08/17/17 09:04 Dose: 40 mg Zinc Sulfate (Zinc Sulfate 220 Mg Cap) 220 mg PO DAILY [facility] Last Admin: 08/16/17 11:31 Dose: 220 mg - Labs Labs: 08/17/17 05:45 08/17/17 05:45 PT 12.5 SECONDS (9.4-12.5) 08/17/17 05:45 INR 1.09 (0.93-1.08) H 08/17/17 05:45 APTT 27.7 Seconds (25.1-36.5) 08/17/17 05:45 - Constitutional Appears: No Acute Distress - Head Exam Head Exam: ATRAUMATIC, NORMAL INSPECTION - Eye Exam Eye Exam: Normal appearance - ENT Exam ENT Exam: Mucous Membranes Moist - Respiratory Exam Respiratory Exam: NORMAL BREATHING PATTERN - Cardiovascular Exam Cardiovascular Exam: REGULAR RHYTHM, +S1, +S2 - GI/Abdominal Exam GI & Abdominal Exam: Distended, Soft - Neurological Exam Neurological Exam: Alert, Awake Assessment and Plan - Assessment and Plan (Free Text) Assessment: Patient is a 67 year old female with history of asthma, arthritis, anemia, and obesity who was originally admitted for right lower extremity cellulitis and UTI. During her hospitalization course she developed acute hypercapneic respiratory failure secondary to asthma/RA airway disease/kyphoscoliosis in setting of cdiff colitis. She is monitored in the ICU. Plan: Plan: 1. Hypercapnic Respiratory Failure - patient awake opens eyes - patient is intubated and ventilated - Surgery consulted lala hugo later on today - CT head no acute findings - CXR reviewed; minimal infiltrate in Left lung base; see full reports - continue to monitor respiratory status - c/w duonebs and solumedrol and pulmicort - procal 1.49 2. Abdominal Distension - likely 2/2 Constipation/fecal impaction - CT Abdomen Pelvis with PO and IV Contrast (07/18): Interstitial and airspace disease in the lung bases; mild cardiomegaly and atherosclerotic disease; fatty liver; gallstones; possible pyelonephritis; mild ileus, no obstruction; constipation with fecal impaction - abdominal flat plate-No acute changes or findings -tube feeding, will increase 10ml per shift 3. Normocytic anemia - Hemoglobins reviewed, trended, will transfuse if Hbg < 7.0 - Monitor daily 4. Cdiff colitis - rectal tube removed - Stool C diff- positive antigen, negative toxin lat week - re ordered stool c diff 5. Acute Kidney injury - Creatinine 1.3 improving - Nephrology consulted - Monitor and maintain MAP > 65 - Monitor Input/Output, daily weights and renal function with basic metabolic panel - supplement electrolytes as needed - Anti-GBM -, anca - has normal complements - weekly vitamin D supplements - c/w IVF hydration - hold BILLY/ARB - avoid nephrotoxic agents and renally dose medications -urine output 2500 6. HTN - BP reviewed, trended, and appreciated - hold zestril due to CATE 7. Prophylaxis: - GI ppx Protonix - DVT ppx: Heparin 8. Hypokalemia -3.2 -repleted, monitor 9.Hypocalcemia -6.8 -repleted -monitor <Juan Rodriguez - Last Filed: 08/17/17 14:25> Objective - Vital Signs/Intake and Output Vital Signs (last 24 hours): Temp Pulse Resp BP Pulse Ox 99.0 F 96 H 27 H 160/73 H 100 08/17/17 07:50 08/17/17 08:09 08/17/17 07:25 08/17/17 07:00 08/17/17 07:50 Intake and Output: 08/17/17 08/17/17 06:59 18:59 Intake Total 2470 Output Total 2500 Balance -30 - Medications Medications: Current Medications Albuterol/Ipratropium (Duoneb 3 Mg/0.5 Mg (3 Ml) Ud) 3 ml IH Q6 PRN PRN Reason: SOB Last Admin: 08/14/17 19:37 Dose: 3 ml Albuterol/Ipratropium (Duoneb 3 Mg/0.5 Mg (3 Ml) Ud) 3 ml IH [id number] [facility] Last Admin: 08/17/17 13:20 Dose: Not Given Ergocalciferol (Drisdol 50,000 Intl Units Cap) 1 cap PO Q7D [facility] Last Admin: 08/12/17 17:09 Dose: 1 cap Ferrous Sulfate (Feosol Liq) 300 mg PO TID [facility] Last Admin: 08/16/17 17:07 Dose: 300 mg Aztreonam (Azactam 1 Gm) 100 mls @ 100 mls/hr IVPB Q12 [facility] PRN Reason: Protocol Last Admin: 08/17/17 09:08 Dose: 100 mls/hr Lactated Ringer's (Lactated Ringer's) 1,000 mls @ 100 mls/hr IV .Q10H [facility] Last Admin: 08/16/17 16:45 Dose: 100 mls/hr Insulin Human Lispro (Humalog Med) 0 units SC Q6H [facility] PRN Reason: Protocol Last Admin: 08/17/17 01:21 Dose: Not Given Levothyroxine Sodium (Synthroid) 50 mcg IVP DAILY [facility] Last Admin: 08/17/17 09:04 Dose: 50 mcg Methylprednisolone (Solu-Medrol) 10 mg IVP Q12 [facility] Last Admin: 08/17/17 09:04 Dose: 10 mg Multivitamins/Vitamin C (Multi-Delyn Liquid) 15 ml PO 0800 [facility] Nystatin (Nystop Topical Powder) 1 gm TOP DAILY [facility] Last Admin: 08/17/17 09:09 Dose: 1 pow Pantoprazole Sodium (Protonix Inj) 40 mg IVP DAILY [facility] Last Admin: 08/17/17 09:04 Dose: 40 mg Zinc Sulfate (Zinc Sulfate 220 Mg Cap) 220 mg PO DAILY [facility] Last Admin: 08/16/17 11:31 Dose: 220 mg - Labs Labs: 08/17/17 05:45 08/17/17 05:45 PT 12.5 SECONDS (9.4-12.5) 08/17/17 05:45 INR 1.09 (0.93-1.08) H 08/17/17 05:45 APTT 27.7 Seconds (25.1-36.5) 08/17/17 05:45 Attending/Attestation - Attestation I have personally seen and examined this patient.: Yes I have fully participated in the care of the patient.: Yes I have reviewed all pertinent clinical information, including history, physical exam and plan: Yes Notes (Text): 08/17/17 14:23 67 year old female who is currently intubated in ICU secondary to hypercapneic respiratory failure secondary to COPD exacerbation. Patient has failed weaning trials. Surgery evaluation was requested for tracheostomy and PEG tube today. Continue with iv antibiotics as per ID for pneumonia. Repeat CDif study was ordered. Renal function continues to improve. Will replete and repeat potassium. Juan Rodriguez MD Hospitalist.
[2017-08-17] MEDS ORDERED: Bupivacaine 0.5% Inj(30mL) ONE (12:06)
[2017-08-17] MEDS ORDERED: Lidocaine 1% Inj (20ml) ONE (12:06)
[2017-08-17] MEDS ORDERED: Rocuronium 10 mg/ml (5 ml) ONE (12:10)
[2017-08-17] MEDS ORDERED: Midazolam 2 MG/2 ML VIAL ONE (12:11)
--- NOTE | 2017-08-17 14:11 | PCM.SURG1 ---
Surgeon's Initial Post Op Note - Surgeon's Notes Surgeon: Dr. Jain Revenue Manager: Dr. Gordon PGY-3, Dr. Zaman PGY-3, Dr. Phipps PGY-1 Type of Anesthesia: General Endo Pre-Operative Diagnosis: Prolonged respiratory failure Operative Findings: End tidal CO2 confirmed after trach placement Post-Operative Diagnosis: Prolonged respiratory failure Operation Performed: Open tracheostomy Specimen/Specimens Removed: none Estimated Blood Loss: EBL {In ML}: 10 Blood Products Given: N/A Drains Used: No Drains Post-Op Condition: Poor Date of Surgery/Procedure: 08/17/17 Time of Surgery/Procedure: 12:30
--- NOTE | 2017-08-17 15:28 | RAD ---
HISTORY: s/p trach COMPARISON: 08/16/2017 FINDINGS: LUNGS: Vascular congestion and perihilar infiltrates. Tracheostomy in place. Nasogastric tube in satisfactory position PLEURA: No significant pleural effusion identified, no pneumothorax apparent. CARDIOVASCULAR: Normal. OSSEOUS STRUCTURES: No significant abnormalities. VISUALIZED UPPER ABDOMEN: Normal. OTHER FINDINGS: None. IMPRESSION: Vascular congestion and perihilar infiltrates. Tracheostomy in place. Nasogastric tube in satisfactory position
[2017-08-17] MEDS: Ferrous Sulfate 300 mg/5 mL Liq UD PO SCH ×2 (17:14)
--- NOTE | 2017-08-17 18:47 | CP.PCM.PN ---
Subjective - Date & Time of Evaluation Date of Evaluation: 08/17/17 Time of Evaluation: 18:15 - Subjective Subjective: Infectious Disease Follow Up: August 17, 2017 67 yo female presenting with 3 weeks of RLE ulceration, swelling and leaking from the wound as well as multiple falls in the past 3 weeks. The patient has an extensive medical history of asthma, arthritis, vitamin C deficiency, and possible thyroid disease. Draining RLE ulceration... cellulitis improved/resolved. Multiple chronic medical issues. Still with persistent dry cough. Otherwise stable. Mild erythema and excoriation of the folds in the abdomen and under the breasts. UTI with Klebsiella earlier in hospitalization but had treatment with Cipro that is now completed. Social Issues. The patient had respiratory distress with no improvement from BiPAP. Patient required intubation and ventilation. Transferred to MICU for further care. The patient was started on Zyvox and Aztreonam IV. Patient had a positive C. Diff antigen but negative toxin. Remains intubated today. Appears stable. Chest X-ray not showing new findings. No leukocytosis. Cultures pending... so far negative. Patient unable to be weaned from ventilator. Supportive care. No fevers or leukocytosis. First two Procalcitonin equivocal. The patient had hypothermia ranging from 93.0 F starting from two days ago. Temperature did rise back up to 99.0 F and has been hovering around 97.7 F. Rechecking procalcitonin... now at 1.49. Difficulty from weaning from the ventilator. Patient is opening eyes and tracking now. Creatinine has been improving and is down to 1.3 from 1.5 from 2.0 now. Open tracheostomy done today. Failed ventilator weaning during this hospitalization. Objective - Vital Signs/Intake and Output Vital Signs (last 24 hours): Temp Pulse Resp BP Pulse Ox 99.0 F 96 H 27 H 160/73 H 100 08/17/17 07:50 08/17/17 08:09 08/17/17 07:25 08/17/17 07:00 08/17/17 07:50 Intake and Output: 08/17/17 08/17/17 06:59 18:59 Intake Total 2470 Output Total 2500 Balance -30 - Medications Medications: Current Medications Albuterol/Ipratropium (Duoneb 3 Mg/0.5 Mg (3 Ml) Ud) 3 ml IH Q6 PRN PRN Reason: SOB Last Admin: 08/14/17 19:37 Dose: 3 ml Albuterol/Ipratropium (Duoneb 3 Mg/0.5 Mg (3 Ml) Ud) 3 ml IH [id number] [facility] Last Admin: 08/17/17 13:20 Dose: Not Given Ergocalciferol (Drisdol 50,000 Intl Units Cap) 1 cap PO Q7D [facility] Last Admin: 08/12/17 17:09 Dose: 1 cap Ferrous Sulfate (Feosol Liq) 300 mg PO TID [facility] Last Admin: 08/17/17 17:14 Dose: 300 mg Aztreonam (Azactam 1 Gm) 100 mls @ 100 mls/hr IVPB Q12 [facility] PRN Reason: Protocol Last Admin: 08/17/17 09:08 Dose: 100 mls/hr Lactated Ringer's (Lactated Ringer's) 1,000 mls @ 100 mls/hr IV .Q10H [facility] Last Admin: 08/16/17 16:45 Dose: 100 mls/hr Insulin Human Lispro (Humalog Med) 0 units SC Q6H [facility] PRN Reason: Protocol Last Admin: 08/17/17 15:00 Dose: Not Given Levothyroxine Sodium (Synthroid) 50 mcg IVP DAILY [facility] Last Admin: 08/17/17 09:04 Dose: 50 mcg Methylprednisolone (Solu-Medrol) 10 mg IVP Q12 [facility] Last Admin: 08/17/17 09:04 Dose: 10 mg Multivitamins/Vitamin C (Multi-Delyn Liquid) 15 ml PO 0800 [facility] Last Admin: 08/17/17 08:20 Dose: 15 ml Nystatin (Nystop Topical Powder) 1 gm TOP DAILY [facility] Last Admin: 08/17/17 09:09 Dose: 1 pow Pantoprazole Sodium (Protonix Inj) 40 mg IVP DAILY [facility] Last Admin: 08/17/17 09:04 Dose: 40 mg Zinc Sulfate (Zinc Sulfate 220 Mg Cap) 220 mg PO DAILY [facility] Last Admin: 08/17/17 17:15 Dose: Not Given - Labs Labs: 08/17/17 05:45 08/17/17 05:45 PT 12.5 SECONDS (9.4-12.5) 08/17/17 05:45 INR 1.09 (0.93-1.08) H 08/17/17 05:45 APTT 27.7 Seconds (25.1-36.5) 08/17/17 05:45 - Constitutional Appears: Non-toxic, No Acute Distress, Chronically Ill - Head Exam Additional comments: tracheotomy and ventilated - Eye Exam Eye Exam: EOMI, PERRL Pupil Exam: NORMAL ACCOMODATION, PERRL - ENT Exam ENT Exam: Mucous Membranes Moist, Normal External Ear Exam, TM's Normal Bilaterally - Neck Exam Additional comments: tracheotomy and ventilated. - Respiratory Exam Respiratory Exam: Decreased Breath Sounds, NORMAL BREATHING PATTERN. absent: Rales, Rhonchi, Wheezes - Cardiovascular Exam Cardiovascular Exam: REGULAR RHYTHM, RRR, +S1, +S2 - GI/Abdominal Exam GI & Abdominal Exam: Soft, Normal Bowel Sounds. absent: Distended, Tenderness - Extremities Exam Extremities Exam: Full ROM, Normal Inspection - Neurological Exam Neurological Exam: Alert, Awake, CN II-XII Intact, Oriented x3 - Psychiatric Exam Psychiatric exam: Normal Affect, Normal Mood - Skin Skin Exam: Intact, Normal Color Assessment and Plan - Assessment and Plan (Free Text) Assessment: 67 yo female with multiple medical issues with PCN allergy diagnosed as a teenager verified by an Epic Anesthesia Analyst. The patient with leukocytosis. Await cultures especially urine cultures. Diabetes and HTN history? Local wound care. Elevated ESR and C-reactive protein. Completed Vancomycin and Aztreonam for antibiotic coverage. UTI with E. coli sensitive to Azactam. Was on Vancomycin for cellulitis IV. For UTI for 5-7 days treatment... completed. Supportive care. Cellulitis appears improved. No new issues. Social issues currently. Homeless at this time. CT scan of chest done. No infiltrates seen. Afebrile the past 24 hours. Mild congestion noted in CT with small pulmonary effusions. No leukocytosis. Slightly elevated procalcitonin (0.66) which is undefined without stronger evidence for pneumonia. When encouraged, she is able to use the incentive spirometer without issues and ambulate with minimal difficulty. Repeat procalcitonin showing 0.71. UTI with Klebsiella. Sensitive to Cipro. Was on Cipro for 5 day course at 500mg PO BID. Completed the antibiotic course. Stable currently. No new issues. Off antibiotics at this time. Multiple social issues. Chronic cough still with periods of hacking. Complained of Vague mild general pains. During this hospitalization, the patient developed respiratory failure and required intubation. Started on Zyvox and Aztreonam IV. Will add Flagyl as well. No leukocytosis. Noted C. Diff with positive antigen but negative toxin. Supportive care. Remains intubated and ventilated. Cultures pending. C. Diff negative to date. No leukocytosis or fever reported. Essentially clear X-ray. Hypothermia episodes most of yesterday to this morning. Noted gram positive cocci in most recent urine culture. Still awaiting identification. Supportive care. Patient did improve mentally. Still difficulty in weaning off respirator. She remains intubated. Failed weaning from vent. Tracheotomy performed today. Thank you for allowing me to participate in the care of the patient, we will follow with you.
[2017-08-17] MEDS: Lactated Ringer's 1,000 ML IV SCH (19:17)
[2017-08-18] MEDS: Insulin Lispro (humaLOG) MEDIUM Coverage SC SCH ×4 (00:30→17:19)
[2017-08-18] MEDS: Albuterol-Ipratrop 3 mg / 0.5 (3 ml) UD IH SCH ×4 (01:30→19:50)
[2017-08-18 06:39] LABS: BASO # 0.01 K/mm3 (0.0-2.0); BASO % 0.1 % (0.0-3.0); EOS # 0.1 (0.0-0.7); EOS % 1.5 % (1.5-5.0); GRAN # 6.65 (1.4-6.5); GRAN % 76.6 % (50.0-68.0); HEMOGLOBIN 8.4 g/dL (12.0-16.0); LYMPH # 1.2 (1.2-3.4); LYMPH % 14.2 % (22.0-35.0); MEAN CELL VOLUME 83.7 fl (80.0-105.0); MEAN CORPUSCULAR HEMOGLOBIN 26.3 pg (25.0-35.0); MEAN CORPUSCULAR HGB CONC 31.5 g/dl (31.0-37.0); MEAN PLATELET VOLUME 9.5 fl (7.0-11.0); MONO # 0.7 (0.1-0.6); MONO % 7.6 % (1.0-6.0); RBC 3.19 10^6/uL (3.5-6.1); RED CELL DISTRIBUTION WIDTH 24.5 % (11.5-14.5); WHITE BLOOD COUNT 8.7 10^3/ul (4.5-11.0)
--- NOTE | 2017-08-18 06:57 | CP.CCUPN ---
<Sneha Nick - Last Filed: 08/18/17 10:44> CCU Subjective - Physician Review Subjective (Free Text): 08/18/17 09:00 Patient seen and examined at bedside. No acute events overnight and patient was afebrile overnight as per nursing. Patient is POD#1 Trach with vent (35, 5, 26, 350). Failed pressure support trial this AM- was on PS for 15minutes prior to being switched back to PRVC. Patient's feeds were held overnight for an hour due to residual of 95cc. Restarted feeds this AM at 40cc/hr- residual this AM was 70cc. Responds to simple verbal commands. Complete ROS unobtainable. Critical Care Time Spent (in minutes): 45 CCU Objective - Vital Signs / Intake & Output Vital Signs (Last 4 hours): Vital Signs Temp Pulse Resp BP Pulse Ox 08/18/17 05:10 69 27 H 100 08/18/17 05:00 65 27 H 134/61 100 08/18/17 04:50 66 26 H 100 08/18/17 04:40 67 26 H 100 08/18/17 04:30 72 26 H 100 08/18/17 04:20 76 26 H 100 08/18/17 04:10 80 27 H 100 08/18/17 04:00 99.2 F 87 27 H 139/67 100 08/18/17 03:50 83 27 H 100 08/18/17 03:40 82 25 H 100 08/18/17 03:30 86 100 08/18/17 03:20 87 26 H 100 08/18/17 03:10 83 37 H 100 08/18/17 03:00 87 28 H 136/53 L 100 - Physical Exam Head: Positive for: Atraumatic, Normocephalic Pupils: Positive for: PERRL Extroacular Muscles: Positive for: EOMI Conjunctiva: Positive for: Normal Mouth: Positive for: Moist Mucous Membranes Pharnyx: Positive for: Normal. Negative for: ERYTHEMA, EXUDATE, TONSILS ENLARGED Nose (External): Positive for: Atraumatic Nose (Internal): Positive for: Normal Inspection Neck: Positive for: Normal Range of Motion Respiratory/Chest: Positive for: Clear to Auscultation, Good Air Exchange, Other (Trach on vent support (35, 5, 26,350)). Negative for: Respiratory Distress, Accessory Muscle Use, Wheezes, Retracting, Rhonchi Cardiovascular: Positive for: Regular Rate and Rhythm, Normal S1, S2. Negative for: Murmurs Abdomen: Positive for: Normal Bowel Sounds, Other (NGT in place- feeds @ 40cc/hr ). Negative for: Tenderness, Distention, Peritoneal Signs Upper Extremity: Positive for: Normal Inspection, NORMAL PULSES, Capillary Refill < 2s. Negative for: Cyanosis, Edema, Erythema Lower Extremity: Positive for: NORMAL PULSES, Swelling, Capillary Refill < 2 s. Negative for: Edema, CALF TENDERNESS Neurological: Positive for: GCS=15, Motor Func Grossly Intact, Normal Sensory Function Skin: Positive for: Warm, Dry, Normal Color. Negative for: Rashes Psychiatric: Positive for: Alert, Oriented x 3 - Medications Active Medications: Active Medications Generic Name Dose Route Start Last Admin Trade Name Freq PRN Reason Stop Dose Admin Albuterol/Ipratropium 3 ml 08/12/17 10:57 08/14/17 19:37 Duoneb 3 Mg/0.5 Mg (3 Ml) Ud IH 3 ml Q6 PRN Administration SOB Albuterol/Ipratropium 3 ml 08/15/17 11:36 08/17/17 20:30 Duoneb 3 Mg/0.5 Mg (3 Ml) Ud IH 3 ml [id number] ESCOBAR Administration Ergocalciferol 1 cap 08/12/17 13:30 08/12/17 17:09 Drisdol 50,000 Intl Units Cap PO 1 cap Q7D ESCOBAR Administration Ferrous Sulfate 300 mg 08/16/17 10:00 08/17/17 17:14 Feosol Liq PO 300 mg TID ESCOBAR Administration Aztreonam 100 mls @ 100 mls/hr 08/07/17 22:00 08/17/17 22:09 Azactam 1 Gm IVPB 100 mls/hr Q12 ESCOBAR Administration Protocol Lactated Ringer's 1,000 mls @ 100 mls/hr 08/12/17 10:49 08/17/17 19:17 Lactated Ringer's IV 100 mls/hr .Q10H ESCOBAR Administration Insulin Human Lispro 0 units 08/14/17 18:00 08/18/17 06:21 Humalog Med SC Not Given Q6H ESCOBAR Protocol Levothyroxine Sodium 50 mcg 08/11/17 10:00 08/17/17 09:04 Synthroid IVP 50 mcg DAILY ESCOBAR Administration Methylprednisolone 10 mg 08/17/17 07:40 08/17/17 22:09 Solu-Medrol IVP 10 mg Q12 ESCOBAR Administration Multivitamins/Vitamin C 15 ml 08/17/17 08:00 08/17/17 08:20 Multi-Delyn Liquid PO 15 ml 0800 ESCOBAR Administration Nystatin 1 gm 08/17/17 10:00 08/17/17 09:09 Nystop Topical Powder TOP 1 pow DAILY ESCOBAR Administration Pantoprazole Sodium 40 mg 08/07/17 10:00 08/17/17 09:04 Protonix Inj IVP 40 mg DAILY ESCOBAR Administration Zinc Sulfate 220 mg 06/15/17 14:30 08/17/17 17:15 Zinc Sulfate 220 Mg Cap PO Not Given DAILY ESCOBAR - Patient Studies Lab Studies: Microbiology Studies 08/16/17 18:04 C. difficile Antigen & Toxin A,B (M - Final Stool Lab Studies 08/18/17 08/18/17 08/18/17 Range/Units 05:43 05:30 00:17 WBC 8.7 (4.5-11.0) 10^3/ul RBC 3.19 L (3.5-6.1) 10^6/uL Hgb 8.4 L (12.0-16.0) g/dL Hct 26.7 L (36.0-48.0) % MCV 83.7 (80.0-105.0) fl MCH 26.3 (25.0-35.0) pg MCHC 31.5 (31.0-37.0) g/dl RDW 24.5 H (11.5-14.5) % Plt Count 207 (120.0-450.0) 10^3/uL MPV 9.5 (7.0-11.0) fl Gran % 76.6 H (50.0-68.0) % Lymph % (Auto) 14.2 L (22.0-35.0) % Shannon % (Auto) 7.6 H (1.0-6.0) % Eos % (Auto) 1.5 (1.5-5.0) % Baso % (Auto) 0.1 (0.0-3.0) % Gran # 6.65 H (1.4-6.5) Lymph # 1.2 (1.2-3.4) Shannon # 0.7 H (0.1-0.6) Eos # 0.1 (0.0-0.7) Baso # 0.01 (0.0-2.0) K/mm3 PT (9.4-12.5) SECONDS INR (0.93-1.08) APTT (25.1-36.5) Seconds Sodium (132-148) mmol/L Potassium (3.6-5.0) mmol/L Chloride (98-107) mmol/L Carbon Dioxide (21-33) mmol/L Anion Gap (10-20) BUN (7-21) mg/dL Creatinine (0.7-1.2) mg/dl Est GFR ( Amer) Est GFR (Non-Af Amer) POC Glucose (mg/dL) 84 84 (65-110) mg/dL Random Glucose (70-110) mg/dL Calcium (8.4-10.5) mg/dL 08/17/17 08/17/17 08/17/17 Range/Units 17:41 11:51 10:03 WBC (4.5-11.0) 10^3/ul RBC (3.5-6.1) 10^6/uL Hgb (12.0-16.0) g/dL Hct (36.0-48.0) % MCV (80.0-105.0) fl MCH (25.0-35.0) pg MCHC (31.0-37.0) g/dl RDW (11.5-14.5) % Plt Count (120.0-450.0) 10^3/uL MPV (7.0-11.0) fl Gran % (50.0-68.0) % Lymph % (Auto) (22.0-35.0) % Shannon % (Auto) (1.0-6.0) % Eos % (Auto) (1.5-5.0) % Baso % (Auto) (0.0-3.0) % Gran # (1.4-6.5) Lymph # (1.2-3.4) Shannon # (0.1-0.6) Eos # (0.0-0.7) Baso # (0.0-2.0) K/mm3 PT (9.4-12.5) SECONDS INR (0.93-1.08) APTT (25.1-36.5) Seconds Sodium (132-148) mmol/L Potassium (3.6-5.0) mmol/L Chloride (98-107) mmol/L Carbon Dioxide (21-33) mmol/L Anion Gap (10-20) BUN (7-21) mg/dL Creatinine (0.7-1.2) mg/dl Est GFR ( Amer) Est GFR (Non-Af Amer) POC Glucose (mg/dL) 66 78 76 (65-110) mg/dL Random Glucose (70-110) mg/dL Calcium (8.4-10.5) mg/dL 08/17/17 08/17/17 08/17/17 Range/Units 05:45 05:45 05:45 WBC 8.5 (4.5-11.0) 10^3/ul RBC 3.34 L (3.5-6.1) 10^6/uL Hgb 8.8 L (12.0-16.0) g/dL Hct 27.8 L (36.0-48.0) % MCV 83.2 (80.0-105.0) fl MCH 26.3 (25.0-35.0) pg MCHC 31.7 (31.0-37.0) g/dl RDW 25.0 H (11.5-14.5) % Plt Count 212 (120.0-450.0) 10^3/uL MPV 9.1 (7.0-11.0) fl Gran % 78.2 H (50.0-68.0) % Lymph % (Auto) 12.4 L (22.0-35.0) % Shannon % (Auto) 8.8 H (1.0-6.0) % Eos % (Auto) 0.4 L (1.5-5.0) % Baso % (Auto) 0.2 (0.0-3.0) % Gran # 6.61 H (1.4-6.5) Lymph # 1.1 L (1.2-3.4) Shannon # 0.7 H (0.1-0.6) Eos # 0.0 (0.0-0.7) Baso # 0.02 (0.0-2.0) K/mm3 PT 12.5 (9.4-12.5) SECONDS INR 1.09 H (0.93-1.08) APTT 27.7 (25.1-36.5) Seconds Sodium 140 (132-148) mmol/L Potassium 3.2 L (3.6-5.0) mmol/L Chloride 103 (98-107) mmol/L Carbon Dioxide 31 (21-33) mmol/L Anion Gap 10 (10-20) BUN 28 H (7-21) mg/dL Creatinine 1.3 H (0.7-1.2) mg/dl Est GFR ( Amer) 50 Est GFR (Non-Af Amer) 41 POC Glucose (mg/dL) (65-110) mg/dL Random Glucose 91 (70-110) mg/dL Calcium 6.8 L* (8.4-10.5) mg/dL Laboratory Results - last 24 hr 08/17/17 08/17/17 08/17/17 05:45 05:45 05:45 WBC 8.5 RBC 3.34 L Hgb 8.8 L Hct 27.8 L MCV 83.2 MCH 26.3 MCHC 31.7 RDW 25.0 H Plt Count 212 MPV 9.1 Gran % 78.2 H Lymph % (Auto) 12.4 L Shannon % (Auto) 8.8 H Eos % (Auto) 0.4 L Baso % (Auto) 0.2 Gran # 6.61 H Lymph # 1.1 L Shannon # 0.7 H Eos # 0.0 Baso # 0.02 PT 12.5 INR 1.09 H APTT 27.7 Sodium 140 Potassium 3.2 L Chloride 103 Carbon Dioxide 31 Anion Gap 10 BUN 28 H Creatinine 1.3 H Est GFR ( Amer) 50 Est GFR (Non-Af Amer) 41 POC Glucose (mg/dL) Random Glucose 91 Calcium 6.8 L* 08/17/17 08/17/17 08/17/17 10:03 11:51 17:41 WBC RBC Hgb Hct MCV MCH MCHC RDW Plt Count MPV Gran % Lymph % (Auto) Shannon % (Auto) Eos % (Auto) Baso % (Auto) Gran # Lymph # Shannon # Eos # Baso # PT INR APTT Sodium Potassium Chloride Carbon Dioxide Anion Gap BUN Creatinine Est GFR ( Amer) Est GFR (Non-Af Amer) POC Glucose (mg/dL) 76 78 66 Random Glucose Calcium 08/18/17 08/18/17 08/18/17 00:17 05:30 05:43 WBC 8.7 RBC 3.19 L Hgb 8.4 L Hct 26.7 L MCV 83.7 MCH 26.3 MCHC 31.5 RDW 24.5 H Plt Count 207 MPV 9.5 Gran % 76.6 H Lymph % (Auto) 14.2 L Shannon % (Auto) 7.6 H Eos % (Auto) 1.5 Baso % (Auto) 0.1 Gran # 6.65 H Lymph # 1.2 Shannon # 0.7 H Eos # 0.1 Baso # 0.01 PT INR APTT Sodium Potassium Chloride Carbon Dioxide Anion Gap BUN Creatinine Est GFR ( Amer) Est GFR (Non-Af Amer) POC Glucose (mg/dL) 84 84 Random Glucose Calcium Fingerstick Blood Sugar Results: 84 Critical Care Progress Note - Nutrition Nutrition: Nutrition Category Date Time Status Heart Healthy Diet [DIET] Diets 07/27/17 Dinner Ordered Assessment/Plan - Assessment and Plan (Free Text) Assessment: 67yo female PMHx asthma, arthritis, thyroid disease, and vit C deficiency transferred to ICU from floors for lethargy. Patient was intubated on 08/06/17 and had multiple failed attempts to wean from mechanical ventilation. Currently afebrile, hemodynamically stable, and in no acute destress POD#1 trach on NGT feeds @ 40cc/hr. Plan: Neuro: -Pt awake, alert responds to verbal stimuli , follows commands and moves extremities. Cardio: -hemodynamically stable -keep MAP > 65 Pulm: -POD#1 Trach (35, 5, 26, 350) -Solumedrol 10mg ivp q12 -SaO2 > 92% -Weaning protocol -Prednisone 10mg po qd -Pulmicort 1mg inh q12 -Duoneb 3ml inh q4 prn -Duoneb 3ml inh q6 ESCOBAR -Chest physiotherapy -Suction q4h -OOB to chair with physical therapy GI: -currently on tube feeds residual < 140 -Feeds @ 40cc/hr -Protonix 40mg ivp qd -Monitor BM Renal/Electrolytes: -Good urine output; Cr trending down -replete electrolytes PRN -Hold BILLY-I Endo: -maintain euglycemia -RISS medium -Accuchecks ID: -C Diff antigen and toxin negative 08/16 -urine culture gram + cocci 08/10 -urine culture +Klebsiella pna 07/05 -C. Diff antigen positive and toxin negative 08/08 -blood culture final negative x 2 08/10 and 07/05/17 -ID consult Dr. Montero GI ppx: Protonix 40mg ivp qd DVT ppx: Heparin 5000u sq q12; SCDs Diet: Feeds @ 40cc/hr through NGT PT/OT: OOB to chair Will discuss with Dr. Kate Nick PGY2 <Bassem Love - Last Filed: 08/18/17 17:01> CCU Objective - Medications Active Medications: Active Medications Generic Name Dose Route Start Last Admin Trade Name Freq PRN Reason Stop Dose Admin Albuterol/Ipratropium 3 ml 08/15/17 11:36 08/18/17 13:27 Duoneb 3 Mg/0.5 Mg (3 Ml) Ud IH 3 ml [id number] ESCOBAR Administration Albuterol/Ipratropium 3 ml 08/18/17 09:22 Duoneb 3 Mg/0.5 Mg (3 Ml) Ud IH [id number] PRN SOB Budesonide 1 mg 08/18/17 20:00 Pulmicort Respules IH [id number] ESCOBAR Calcium Carbonate 600 mg 08/18/17 10:00 08/18/17 09:48 Caltrate PO 600 mg BID ESCOBAR Administration Ergocalciferol 1 cap 08/12/17 13:30 08/12/17 17:09 Drisdol 50,000 Intl Units Cap PO 1 cap Q7D ESCOBAR Administration Ferrous Sulfate 300 mg 08/16/17 10:00 08/18/17 14:30 Feosol Liq PO 300 mg TID ESCOBAR Administration Heparin Sodium (Porcine) 5,000 units 08/18/17 10:00 08/18/17 09:48 Heparin SC 5,000 units Q12 ESCOBAR Administration Protocol Insulin Human Lispro 0 units 08/14/17 18:00 08/18/17 14:31 Humalog Med SC Not Given Q6H [facility] Protocol Levothyroxine Sodium 50 mcg 08/11/17 10:00 08/18/17 09:54 Synthroid IVP 50 mcg DAILY ESCOBAR Administration Multivitamins/Vitamin C 15 ml 08/17/17 08:00 08/18/17 08:08 Multi-Delyn Liquid PO 15 ml 0800 ESCOBAR Administration Nystatin 1 gm 08/17/17 10:00 08/18/17 09:51 Nystop Topical Powder TOP 1 pow DAILY ESCOBAR Administration Pantoprazole Sodium 40 mg 08/19/17 07:30 Protonix Susp PO ACB ESCOBAR Prednisone 10 mg 08/18/17 10:15 08/18/17 11:30 Prednisone Tab PO 10 mg DAILY ESCOBAR Administration Zinc Sulfate 220 mg 06/15/17 14:30 08/18/17 09:55 Zinc Sulfate 220 Mg Cap PO 220 mg DAILY ESCOBAR Administration - Patient Studies Lab Studies: Microbiology Studies 08/16/17 18:04 C. difficile Antigen & Toxin A,B (M - Final Stool Lab Studies 08/18/17 08/18/17 08/18/17 Range/Units 11:54 07:45 05:43 WBC (4.5-11.0) 10^3/ul RBC (3.5-6.1) 10^6/uL Hgb (12.0-16.0) g/dL Hct (36.0-48.0) % MCV (80.0-105.0) fl MCH (25.0-35.0) pg MCHC (31.0-37.0) g/dl RDW (11.5-14.5) % Plt Count (120.0-450.0) 10^3/uL MPV (7.0-11.0) fl Gran % (50.0-68.0) % Lymph % (Auto) (22.0-35.0) % Shannon % (Auto) (1.0-6.0) % Eos % (Auto) (1.5-5.0) % Baso % (Auto) (0.0-3.0) % Gran # (1.4-6.5) Lymph # (1.2-3.4) Shannon # (0.1-0.6) Eos # (0.0-0.7) Baso # (0.0-2.0) K/mm3 pCO2 39 (35-45) mm/Hg pO2 142.0 H (80-100) mm/Hg HCO3 29.0 H (21-28) mmol/L ABG pH 7.48 H (7.35-7.45) ABG Total CO2 30.2 H (22-28) mmol.L ABG O2 Saturation 99.7 H (95-98) % ABG O2 Content 11.5 L (15-23) ML/dl ABG Base Excess 5.1 H (-2.0-3.0) mmol/L ABG Hemoglobin 8.2 L (11.7-17.4) g/dL ABG Carboxyhemoglobin 1.8 H (0.5-1.5) % POC ABG HHb (Measured) 0.3 (0-5) % ABG Methemoglobin 0.9 (0.0-3.0) % ABG O2 Capacity 11.5 L (16-24) mL/dl Hgb O2 Saturation 97.0 (95.0-98.0) % FiO2 40.0 % Sodium (132-148) mmol/L Potassium (3.6-5.0) mmol/L Chloride (98-107) mmol/L Carbon Dioxide (21-33) mmol/L Anion Gap (10-20) BUN (7-21) mg/dL Creatinine (0.7-1.2) mg/dl Est GFR ( Amer) Est GFR (Non-Af Amer) POC Glucose (mg/dL) 115 H 84 (65-110) mg/dL Random Glucose (70-110) mg/dL Calcium (8.4-10.5) mg/dL Phosphorus (2.5-4.5) mg/dL Magnesium (1.7-2.2) mg/dL Albumin (3.0-4.8) g/dL 08/18/17 08/18/17 08/18/17 Range/Units 05:30 05:30 05:30 WBC 8.7 (4.5-11.0) 10^3/ul RBC 3.19 L (3.5-6.1) 10^6/uL Hgb 8.4 L (12.0-16.0) g/dL Hct 26.7 L (36.0-48.0) % MCV 83.7 (80.0-105.0) fl MCH 26.3 (25.0-35.0) pg MCHC 31.5 (31.0-37.0) g/dl RDW 24.5 H (11.5-14.5) % Plt Count 207 (120.0-450.0) 10^3/uL MPV 9.5 (7.0-11.0) fl Gran % 76.6 H (50.0-68.0) % Lymph % (Auto) 14.2 L (22.0-35.0) % Shannon % (Auto) 7.6 H (1.0-6.0) % Eos % (Auto) 1.5 (1.5-5.0) % Baso % (Auto) 0.1 (0.0-3.0) % Gran # 6.65 H (1.4-6.5) Lymph # 1.2 (1.2-3.4) Shannon # 0.7 H (0.1-0.6) Eos # 0.1 (0.0-0.7) Baso # 0.01 (0.0-2.0) K/mm3 pCO2 (35-45) mm/Hg pO2 (80-100) mm/Hg HCO3 (21-28) mmol/L ABG pH (7.35-7.45) ABG Total CO2 (22-28) mmol.L ABG O2 Saturation (95-98) % ABG O2 Content (15-23) ML/dl ABG Base Excess (-2.0-3.0) mmol/L ABG Hemoglobin (11.7-17.4) g/dL ABG Carboxyhemoglobin (0.5-1.5) % POC ABG HHb (Measured) (0-5) % ABG Methemoglobin (0.0-3.0) % ABG O2 Capacity (16-24) mL/dl Hgb O2 Saturation (95.0-98.0) % FiO2 % Sodium 141 (132-148) mmol/L Potassium 3.2 L (3.6-5.0) mmol/L Chloride 101 (98-107) mmol/L Carbon Dioxide 29 (21-33) mmol/L Anion Gap 13 (10-20) BUN 22 H (7-21) mg/dL Creatinine 1.0 (0.7-1.2) mg/dl Est GFR ( Amer) > 60 Est GFR (Non-Af Amer) 55 POC Glucose (mg/dL) (65-110) mg/dL Random Glucose 88 (70-110) mg/dL Calcium 6.3 L* (8.4-10.5) mg/dL Phosphorus 2.8 (2.5-4.5) mg/dL Magnesium 1.0 L* (1.7-2.2) mg/dL Albumin 2.6 L (3.0-4.8) g/dL 08/18/17 08/17/17 Range/Units 00:17 17:41 WBC (4.5-11.0) 10^3/ul RBC (3.5-6.1) 10^6/uL Hgb (12.0-16.0) g/dL Hct (36.0-48.0) % MCV (80.0-105.0) fl MCH (25.0-35.0) pg MCHC (31.0-37.0) g/dl RDW (11.5-14.5) % Plt Count (120.0-450.0) 10^3/uL MPV (7.0-11.0) fl Gran % (50.0-68.0) % Lymph % (Auto) (22.0-35.0) % Shannon % (Auto) (1.0-6.0) % Eos % (Auto) (1.5-5.0) % Baso % (Auto) (0.0-3.0) % Gran # (1.4-6.5) Lymph # (1.2-3.4) Shannon # (0.1-0.6) Eos # (0.0-0.7) Baso # (0.0-2.0) K/mm3 pCO2 (35-45) mm/Hg pO2 (80-100) mm/Hg HCO3 (21-28) mmol/L ABG pH (7.35-7.45) ABG Total CO2 (22-28) mmol.L ABG O2 Saturation (95-98) % ABG O2 Content (15-23) ML/dl ABG Base Excess (-2.0-3.0) mmol/L ABG Hemoglobin (11.7-17.4) g/dL ABG Carboxyhemoglobin (0.5-1.5) % POC ABG HHb (Measured) (0-5) % ABG Methemoglobin (0.0-3.0) % ABG O2 Capacity (16-24) mL/dl Hgb O2 Saturation (95.0-98.0) % FiO2 % Sodium (132-148) mmol/L Potassium (3.6-5.0) mmol/L Chloride (98-107) mmol/L Carbon Dioxide (21-33) mmol/L Anion Gap (10-20) BUN (7-21) mg/dL Creatinine (0.7-1.2) mg/dl Est GFR ( Amer) Est GFR (Non-Af Amer) POC Glucose (mg/dL) 84 66 (65-110) mg/dL Random Glucose (70-110) mg/dL Calcium (8.4-10.5) mg/dL Phosphorus (2.5-4.5) mg/dL Magnesium (1.7-2.2) mg/dL Albumin (3.0-4.8) g/dL Laboratory Results - last 24 hr 08/17/17 08/18/17 08/18/17 17:41 00:17 05:30 WBC 8.7 RBC 3.19 L Hgb 8.4 L Hct 26.7 L MCV 83.7 MCH 26.3 MCHC 31.5 RDW 24.5 H Plt Count 207 MPV 9.5 Gran % 76.6 H Lymph % (Auto) 14.2 L Shannon % (Auto) 7.6 H Eos % (Auto) 1.5 Baso % (Auto) 0.1 Gran # 6.65 H Lymph # 1.2 Shannon # 0.7 H Eos # 0.1 Baso # 0.01 pCO2 pO2 HCO3 ABG pH ABG Total CO2 ABG O2 Saturation ABG O2 Content ABG Base Excess ABG Hemoglobin ABG Carboxyhemoglobin POC ABG HHb (Measured) ABG Methemoglobin ABG O2 Capacity Hgb O2 Saturation FiO2 Sodium Potassium Chloride Carbon Dioxide Anion Gap BUN Creatinine Est GFR ( Amer) Est GFR (Non-Af Amer) POC Glucose (mg/dL) 66 84 Random Glucose Calcium Phosphorus Magnesium Albumin 08/18/17 08/18/17 08/18/17 05:30 05:30 05:43 WBC RBC Hgb Hct MCV MCH MCHC RDW Plt Count MPV Gran % Lymph % (Auto) Shannon % (Auto) Eos % (Auto) Baso % (Auto) Gran # Lymph # Shannon # Eos # Baso # pCO2 pO2 HCO3 ABG pH ABG Total CO2 ABG O2 Saturation ABG O2 Content ABG Base Excess ABG Hemoglobin ABG Carboxyhemoglobin POC ABG HHb (Measured) ABG Methemoglobin ABG O2 Capacity Hgb O2 Saturation FiO2 Sodium 141 Potassium 3.2 L Chloride 101 Carbon Dioxide 29 Anion Gap 13 BUN 22 H Creatinine 1.0 Est GFR ( Amer) > 60 Est GFR (Non-Af Amer) 55 POC Glucose (mg/dL) 84 Random Glucose 88 Calcium 6.3 L* Phosphorus 2.8 Magnesium 1.0 L* Albumin 2.6 L 08/18/17 08/18/17 07:45 11:54 WBC RBC Hgb Hct MCV MCH MCHC RDW Plt Count MPV Gran % Lymph % (Auto) Shannon % (Auto) Eos % (Auto) Baso % (Auto) Gran # Lymph # Shannon # Eos # Baso # pCO2 39 pO2 142.0 H HCO3 29.0 H ABG pH 7.48 H ABG Total CO2 30.2 H ABG O2 Saturation 99.7 H ABG O2 Content 11.5 L ABG Base Excess 5.1 H ABG Hemoglobin 8.2 L ABG Carboxyhemoglobin 1.8 H POC ABG HHb (Measured) 0.3 ABG Methemoglobin 0.9 ABG O2 Capacity 11.5 L Hgb O2 Saturation 97.0 FiO2 40.0 Sodium Potassium Chloride Carbon Dioxide Anion Gap BUN Creatinine Est GFR ( Amer) Est GFR (Non-Af Amer) POC Glucose (mg/dL) 115 H Random Glucose Calcium Phosphorus Magnesium Albumin Attending/Attestation - Attestation I have personally seen and examined this patient.: Yes I have fully participated in the care of the patient.: Yes I have reviewed all pertinent clinical information: Yes Notes (Text): 08/18/17 16:58 67 yo with resolved HCRF, however remained vent dependent. s/p trach. Electrolites aggressively supplemented, conservative fluid management and 02 management instituted. Early mobilization, PT, OOB to chair, chest PT and tracheal suction. CXR: some atelectasis. Taper steroids, cont bronchodilators, DVT/GI prophylaxis. Off of abx--afebrile/no leukocytosis. CATE improved ccm time 40 min
[2017-08-18 07:30] LABS: BLOOD UREA NITROGEN 22 mg/dL (7-21); CALCIUM 6.3 mg/dL (8.4-10.5); GFR AFRICAN-AMERICAN > 60; GFR NON-AFRICAN AMERICAN 55
[2017-08-18 07:49] LABS: ARTERIAL BLOOD GAS HEMOGLOBIN 8.2 g/dL (11.7-17.4); ARTERIAL BLOOD GAS O2 CAPACITY 11.5 mL/dl (16-24); ARTERIAL BLOOD GAS O2 CONTENT 11.5 ML/dl (15-23); ARTERIAL BLOOD GAS O2 SAT 99.7 % (95-98); ARTERIAL BLOOD GAS PCO2 39 mm/Hg (35-45); ARTERIAL BLOOD GAS PH 7.48 (7.35-7.45); ARTERIAL BLOOD GAS TCO2 30.2 mmol.L (22-28)
[2017-08-18] MEDS ORDERED: Potassium Chloride 40 mEq/30 ml LIQ UD PO ONE ×3 (08:04→10:42)
[2017-08-18] MEDS: Multi Vitamins 15 mL UD Oral Solution PO SCH (08:08)
[2017-08-18 09:02] LABS: ALBUMIN 2.6 g/dL (3.0-4.8)
[2017-08-18] MEDS ORDERED: Magnesium Sulfate 2 GM in Sodium Chloride 0.9% 100 ML IVPB ONE (09:19)
[2017-08-18] MEDS: Aztreonam 1 Gm in NS 100mL 100 ML IVPB SCH (09:40)
[2017-08-18] MEDS: Ferrous Sulfate 300 mg/5 mL Liq UD PO SCH ×3 (09:48→17:19)
[2017-08-18] MEDS: Nystatin 100,000 Units/gm Topical Pow(15 gm) TOP SCH (09:51)
[2017-08-18] MEDS: MethylPREDNISolone 40 mg Vial IVP SCH (09:52)
[2017-08-18] MEDS: Levothyroxine 100 mcg (0.1 mg) Inj IVP SCH (09:54)
--- NOTE | 2017-08-18 11:38 | CP.PCM.PN ---
Subjective - Date & Time of Evaluation Date of Evaluation: 08/18/17 Time of Evaluation: 09:35 - Subjective Subjective: General Surgery Progress Note for Dr. Jain Patient seen and examined at bedside. Patient resting comfortably, in no acute distress. Patient underwent Spontaneous Breathing Trial with pressure support and failed after 15 minutes. Patient gesticulates that she has some discomfort in the neck area, but otherwise has no abdominal pain or pain elsewhere. Nurse reports no events overnight. Objective - Vital Signs/Intake and Output Vital Signs (last 24 hours): Temp Pulse Resp BP Pulse Ox 99.2 F 69 27 H 158/85 H 100 08/18/17 04:00 08/18/17 05:10 08/18/17 07:21 08/18/17 11:18 08/18/17 07:21 - Medications Medications: Current Medications Albuterol/Ipratropium (Duoneb 3 Mg/0.5 Mg (3 Ml) Ud) 3 ml IH [id number] [facility] Last Admin: 08/18/17 07:11 Dose: 3 ml Albuterol/Ipratropium (Duoneb 3 Mg/0.5 Mg (3 Ml) Ud) 3 ml IH [id number] PRN PRN Reason: SOB Budesonide (Pulmicort Respules) 1 mg IH [id number] [facility] Calcium Carbonate (Caltrate) 600 mg PO BID [facility] Last Admin: 08/18/17 09:48 Dose: 600 mg Ergocalciferol (Drisdol 50,000 Intl Units Cap) 1 cap PO Q7D [facility] Last Admin: 08/12/17 17:09 Dose: 1 cap Ferrous Sulfate (Feosol Liq) 300 mg PO TID [facility] Last Admin: 08/18/17 09:48 Dose: 300 mg Heparin Sodium (Porcine) (Heparin) 5,000 units SC Q12 [facility] PRN Reason: Protocol Last Admin: 08/18/17 09:48 Dose: 5,000 units Potassium Chloride (Potassium Chloride 10 Meq/100 Ml) 10 meq in 100 mls @ 50 mls/hr IVPB ONCE ONE Stop: 08/18/17 12:41 Last Admin: 08/18/17 11:18 Dose: 50 mls/hr Insulin Human Lispro (Humalog Med) 0 units SC Q6H [facility] PRN Reason: Protocol Last Admin: 08/18/17 06:21 Dose: Not Given Levothyroxine Sodium (Synthroid) 50 mcg IVP DAILY [facility] Last Admin: 08/18/17 09:54 Dose: 50 mcg Multivitamins/Vitamin C (Multi-Delyn Liquid) 15 ml PO 0800 [facility] Last Admin: 08/18/17 08:08 Dose: 15 ml Nystatin (Nystop Topical Powder) 1 gm TOP DAILY [facility] Last Admin: 08/18/17 09:51 Dose: 1 pow Pantoprazole Sodium (Protonix Inj) 40 mg IVP DAILY [facility] Last Admin: 08/18/17 09:51 Dose: 40 mg Prednisone (Prednisone Tab) 10 mg PO DAILY [facility] Last Admin: 08/18/17 11:30 Dose: 10 mg Zinc Sulfate (Zinc Sulfate 220 Mg Cap) 220 mg PO DAILY [facility] Last Admin: 08/18/17 09:55 Dose: 220 mg - Labs Labs: 08/18/17 05:30 08/18/17 05:30 PT 12.5 SECONDS (9.4-12.5) 08/17/17 05:45 INR 1.09 (0.93-1.08) H 08/17/17 05:45 APTT 27.7 Seconds (25.1-36.5) 08/17/17 05:45 - Constitutional Appears: Well, Non-toxic - Head Exam Head Exam: ATRAUMATIC, NORMOCEPHALIC - Eye Exam Eye Exam: EOMI, Normal appearance - ENT Exam ENT Exam: Mucous Membranes Moist, Normal Oropharynx - Neck Exam Additional comments: tracheostomy in place - Respiratory Exam Respiratory Exam: Wheezes (bilaterally) - Cardiovascular Exam Cardiovascular Exam: RRR, +S1, +S2 - GI/Abdominal Exam GI & Abdominal Exam: Soft, Normal Bowel Sounds - Neurological Exam Neurological Exam: Alert, Awake, Oriented x3 - Psychiatric Exam Psychiatric exam: Normal Affect, Normal Mood - Skin Skin Exam: Dry, Intact, Normal Color, Warm Assessment and Plan - Assessment and Plan (Free Text) Assessment: 67 year old female who is POD 1 s/p open tracheostomy secondary to prolonged intubation. Patient was placed on pressure support and failed SBT. Patient is also receiving nutrition via nasogastric tube. Plan: Continue with tracheostomy and local wound care Continue with SBT and enteral feeding per ICU Swallow evaluation pending Case discussed with attending, Dr. Jain
--- NOTE | 2017-08-18 13:12 | CP.PCM.PN ---
<Shan Zepeda - Last Filed: 08/18/17 13:18> Subjective - Date & Time of Evaluation Date of Evaluation: 08/18/17 Time of Evaluation: 06:00 - Subjective Subjective: Patient seen and evaluated bedside in the ICU. No acute distress, no acute issues or events overnight. Patient had tracheotomy performed yesterday. Patient says some discomfort in her throat, but denies any abdominal pain or other issues. Objective - Vital Signs/Intake and Output Vital Signs (last 24 hours): Temp Pulse Resp BP Pulse Ox 99.2 F 69 27 H 158/85 H 100 08/18/17 04:00 08/18/17 05:10 08/18/17 07:21 08/18/17 11:18 08/18/17 07:21 - Medications Medications: Current Medications Albuterol/Ipratropium (Duoneb 3 Mg/0.5 Mg (3 Ml) Ud) 3 ml IH [id number] [facility] Last Admin: 08/18/17 07:11 Dose: 3 ml Albuterol/Ipratropium (Duoneb 3 Mg/0.5 Mg (3 Ml) Ud) 3 ml IH [id number] PRN PRN Reason: SOB Budesonide (Pulmicort Respules) 1 mg IH [id number] [facility] Calcium Carbonate (Caltrate) 600 mg PO BID [facility] Last Admin: 08/18/17 09:48 Dose: 600 mg Ergocalciferol (Drisdol 50,000 Intl Units Cap) 1 cap PO Q7D [facility] Last Admin: 08/12/17 17:09 Dose: 1 cap Ferrous Sulfate (Feosol Liq) 300 mg PO TID [facility] Last Admin: 08/18/17 09:48 Dose: 300 mg Heparin Sodium (Porcine) (Heparin) 5,000 units SC Q12 [facility] PRN Reason: Protocol Last Admin: 08/18/17 09:48 Dose: 5,000 units Insulin Human Lispro (Humalog Med) 0 units SC Q6H [facility] PRN Reason: Protocol Last Admin: 08/18/17 06:21 Dose: Not Given Levothyroxine Sodium (Synthroid) 50 mcg IVP DAILY [facility] Last Admin: 08/18/17 09:54 Dose: 50 mcg Multivitamins/Vitamin C (Multi-Delyn Liquid) 15 ml PO 0800 [facility] Last Admin: 08/18/17 08:08 Dose: 15 ml Nystatin (Nystop Topical Powder) 1 gm TOP DAILY [facility] Last Admin: 08/18/17 09:51 Dose: 1 pow Pantoprazole Sodium (Protonix Inj) 40 mg IVP DAILY [facility] Last Admin: 08/18/17 09:51 Dose: 40 mg Prednisone (Prednisone Tab) 10 mg PO DAILY [facility] Last Admin: 08/18/17 11:30 Dose: 10 mg Zinc Sulfate (Zinc Sulfate 220 Mg Cap) 220 mg PO DAILY [facility] Last Admin: 08/18/17 09:55 Dose: 220 mg - Labs Labs: 08/18/17 05:30 08/18/17 05:30 PT 12.5 SECONDS (9.4-12.5) 08/17/17 05:45 INR 1.09 (0.93-1.08) H 08/17/17 05:45 APTT 27.7 Seconds (25.1-36.5) 08/17/17 05:45 - Constitutional Appears: Non-toxic, No Acute Distress - Head Exam Head Exam: ATRAUMATIC, NORMAL INSPECTION, NORMOCEPHALIC - Eye Exam Eye Exam: EOMI, Normal appearance - ENT Exam ENT Exam: Mucous Membranes Moist - Neck Exam Neck Exam: absent: Lymphadenopathy, Tenderness Additional comments: trach - Respiratory Exam Respiratory Exam: Clear to Ausculation Bilateral, NORMAL BREATHING PATTERN - Cardiovascular Exam Cardiovascular Exam: REGULAR RHYTHM - GI/Abdominal Exam GI & Abdominal Exam: Distended, Soft. absent: Tenderness - Extremities Exam Extremities Exam: Normal Capillary Refill - Neurological Exam Neurological Exam: Alert, Awake, Oriented x3 - Skin Skin Exam: Normal Color Assessment and Plan - Assessment and Plan (Free Text) Assessment: Patient is a 67 year old female with history of asthma, arthritis, anemia, and obesity who was originally admitted for right lower extremity cellulitis and UTI. During her hospitalization course she developed acute hypercapneic respiratory failure secondary to asthma/RA airway disease/kyphoscoliosis in setting of cdiff colitis. She is monitored in the ICU. Currently afebrile, hemodynamically stable, and in no acute destress POD#1 trach on NGT feeds @ 40cc /hr. Plan: 1. Hypercapnic Respiratory Failure - patient AAOx3 - patient is status post trach - Surgery consulted - CT head no acute findings - CXR reviewed; minimal infiltrate in Left lung base; see full reports - continue to monitor respiratory status - c/w duonebs and solumedrol and pulmicort - procal 1.49 2. Abdominal Distension - likely 2/2 Constipation/fecal impaction - CT Abdomen Pelvis with PO and IV Contrast (07/18): Interstitial and airspace disease in the lung bases; mild cardiomegaly and atherosclerotic disease; fatty liver; gallstones; possible pyelonephritis; mild ileus, no obstruction; constipation with fecal impaction - abdominal flat plate-No acute changes or findings 3. Normocytic anemia - Hemoglobins reviewed, trended, will transfuse if Hbg < 7.0 - Monitor daily 4. Cdiff colitis-resolved - rectal tube removed - negative toxin and antigen c diff 5. Acute Kidney injury - Creatinine 1.0 improving - Nephrology consulted - Monitor and maintain MAP > 65 - Monitor Input/Output, daily weights and renal function with basic metabolic panel - supplement electrolytes as needed - Anti-GBM -, anca - has normal complements - weekly vitamin D supplements - c/w IVF hydration - hold BILLY/ARB - avoid nephrotoxic agents and renally dose medications 6. HTN - BP reviewed, trended, and appreciated - hold zestril due to CATE 7. Hypokalemia -3.2 -repleted, monitor 8.Hypocalcemia -6.3 -repleted -monitor 9. Hypomagnesia -1.0 -repleted, continue to monitor Prophylaxis: - GI ppx Protonix - DVT ppx: Heparin <Juan Rodriguez - Last Filed: 08/18/17 14:35> Objective - Vital Signs/Intake and Output Vital Signs (last 24 hours): Temp Pulse Resp BP Pulse Ox 99.2 F 69 27 H 158/85 H 100 08/18/17 04:00 08/18/17 05:10 08/18/17 07:21 08/18/17 11:18 08/18/17 07:21 - Medications Medications: Current Medications Albuterol/Ipratropium (Duoneb 3 Mg/0.5 Mg (3 Ml) Ud) 3 ml IH [id number] [facility] Last Admin: 08/18/17 13:27 Dose: 3 ml Albuterol/Ipratropium (Duoneb 3 Mg/0.5 Mg (3 Ml) Ud) 3 ml IH [id number] PRN PRN Reason: SOB Budesonide (Pulmicort Respules) 1 mg IH [id number] [facility] Calcium Carbonate (Caltrate) 600 mg PO BID [facility] Last Admin: 08/18/17 09:48 Dose: 600 mg Ergocalciferol (Drisdol 50,000 Intl Units Cap) 1 cap PO Q7D [facility] Last Admin: 08/12/17 17:09 Dose: 1 cap Ferrous Sulfate (Feosol Liq) 300 mg PO TID [facility] Last Admin: 08/18/17 09:48 Dose: 300 mg Heparin Sodium (Porcine) (Heparin) 5,000 units SC Q12 [facility] PRN Reason: Protocol Last Admin: 08/18/17 09:48 Dose: 5,000 units Insulin Human Lispro (Humalog Med) 0 units SC Q6H [facility] PRN Reason: Protocol Last Admin: 08/18/17 06:21 Dose: Not Given Levothyroxine Sodium (Synthroid) 50 mcg IVP DAILY [facility] Last Admin: 08/18/17 09:54 Dose: 50 mcg Multivitamins/Vitamin C (Multi-Delyn Liquid) 15 ml PO 0800 [facility] Last Admin: 08/18/17 08:08 Dose: 15 ml Nystatin (Nystop Topical Powder) 1 gm TOP DAILY [facility] Last Admin: 08/18/17 09:51 Dose: 1 pow Pantoprazole Sodium (Protonix Susp) 40 mg PO ACB [facility] Prednisone (Prednisone Tab) 10 mg PO DAILY [facility] Last Admin: 08/18/17 11:30 Dose: 10 mg Zinc Sulfate (Zinc Sulfate 220 Mg Cap) 220 mg PO DAILY [facility] Last Admin: 08/18/17 09:55 Dose: 220 mg - Labs Labs: 08/18/17 05:30 08/18/17 05:30 PT 12.5 SECONDS (9.4-12.5) 08/17/17 05:45 INR 1.09 (0.93-1.08) H 08/17/17 05:45 APTT 27.7 Seconds (25.1-36.5) 08/17/17 05:45 Attending/Attestation - Attestation I have personally seen and examined this patient.: Yes I have fully participated in the care of the patient.: Yes I have reviewed all pertinent clinical information, including history, physical exam and plan: Yes Notes (Text): 01/17/18 14:33 67 year old female who was intubated in ICU secondary to hypercapneic respiratory failure secondary to COPD exacerbation. She was seen by surgery and is now s/p tracheostomy POD #1. She is on tapering steroids as per nurse aide. Will request for speech and swallow follow up today. Patient is s/p antibiotics for pneumonia. Repeat CDif study was negative. Renal function has improved. Will replete and repeat lytes. Juan Rodriguez MD Hospitalist.
--- NOTE | 2017-08-18 14:33 | CP.PCM.PN ---
Subjective - Date & Time of Evaluation Date of Evaluation: 08/18/17 Time of Evaluation: 13:30 - Subjective Subjective: Infectious Disease Follow Up: August 18, 2017 67 yo female presenting with 3 weeks of RLE ulceration, swelling and leaking from the wound as well as multiple falls in the past 3 weeks. The patient has an extensive medical history of asthma, arthritis, vitamin C deficiency, and possible thyroid disease. Draining RLE ulceration... cellulitis improved/resolved. Multiple chronic medical issues. Still with persistent dry cough. Otherwise stable. Mild erythema and excoriation of the folds in the abdomen and under the breasts. UTI with Klebsiella earlier in hospitalization but had treatment with Cipro that is now completed. Social Issues. The patient had respiratory distress with no improvement from BiPAP. Patient required intubation and ventilation. Transferred to MICU for further care. The patient was started on Zyvox and Aztreonam IV. Patient had a positive C. Diff antigen but negative toxin. Remains intubated today. Appears stable. Chest X-ray not showing new findings. No leukocytosis. Cultures pending... so far negative. Patient unable to be weaned from ventilator. Supportive care. No fevers or leukocytosis. First two Procalcitonin equivocal. The patient had hypothermia ranging from 93.0 F starting from two days ago. Temperature did rise back up to 99.0 F and has been hovering around 97.7 F. Rechecking procalcitonin... now at 1.49. Difficulty from weaning from the ventilator. Patient is opening eyes and tracking now. Creatinine has been improving and is down to 1.3 from 1.5 from 2.0 now. Open tracheostomy done yesterday. Failed ventilator weaning during this hospitalization. Recent repeat C. Diff negative for toxin and antigen. Objective - Vital Signs/Intake and Output Vital Signs (last 24 hours): Temp Pulse Resp BP Pulse Ox 99.2 F 69 27 H 158/85 H 100 08/18/17 04:00 08/18/17 05:10 08/18/17 07:21 08/18/17 11:18 08/18/17 07:21 - Medications Medications: Current Medications Albuterol/Ipratropium (Duoneb 3 Mg/0.5 Mg (3 Ml) Ud) 3 ml IH [id number] [facility] Last Admin: 08/18/17 13:27 Dose: 3 ml Albuterol/Ipratropium (Duoneb 3 Mg/0.5 Mg (3 Ml) Ud) 3 ml IH [id number] PRN PRN Reason: SOB Budesonide (Pulmicort Respules) 1 mg IH [id number] [facility] Calcium Carbonate (Caltrate) 600 mg PO BID [facility] Last Admin: 08/18/17 09:48 Dose: 600 mg Ergocalciferol (Drisdol 50,000 Intl Units Cap) 1 cap PO Q7D [facility] Last Admin: 08/12/17 17:09 Dose: 1 cap Ferrous Sulfate (Feosol Liq) 300 mg PO TID [facility] Last Admin: 08/18/17 09:48 Dose: 300 mg Heparin Sodium (Porcine) (Heparin) 5,000 units SC Q12 [facility] PRN Reason: Protocol Last Admin: 08/18/17 09:48 Dose: 5,000 units Insulin Human Lispro (Humalog Med) 0 units SC Q6H [facility] PRN Reason: Protocol Last Admin: 08/18/17 06:21 Dose: Not Given Levothyroxine Sodium (Synthroid) 50 mcg IVP DAILY [facility] Last Admin: 08/18/17 09:54 Dose: 50 mcg Multivitamins/Vitamin C (Multi-Delyn Liquid) 15 ml PO 0800 [facility] Last Admin: 08/18/17 08:08 Dose: 15 ml Nystatin (Nystop Topical Powder) 1 gm TOP DAILY [facility] Last Admin: 08/18/17 09:51 Dose: 1 pow Pantoprazole Sodium (Protonix Susp) 40 mg PO ACB [facility] Prednisone (Prednisone Tab) 10 mg PO DAILY [facility] Last Admin: 08/18/17 11:30 Dose: 10 mg Zinc Sulfate (Zinc Sulfate 220 Mg Cap) 220 mg PO DAILY [facility] Last Admin: 08/18/17 09:55 Dose: 220 mg - Labs Labs: 08/18/17 05:30 08/18/17 05:30 PT 12.5 SECONDS (9.4-12.5) 08/17/17 05:45 INR 1.09 (0.93-1.08) H 08/17/17 05:45 APTT 27.7 Seconds (25.1-36.5) 08/17/17 05:45 - Constitutional Appears: Non-toxic, No Acute Distress, Chronically Ill - Head Exam Head Exam: ATRAUMATIC, NORMOCEPHALIC - Eye Exam Eye Exam: EOMI, PERRL Pupil Exam: NORMAL ACCOMODATION, PERRL - ENT Exam ENT Exam: Mucous Membranes Moist, Normal External Ear Exam, TM's Normal Bilaterally - Neck Exam Additional comments: tracheotomy and ventilated. - Respiratory Exam Respiratory Exam: Decreased Breath Sounds, NORMAL BREATHING PATTERN. absent: Rales, Rhonchi, Wheezes - Cardiovascular Exam Cardiovascular Exam: REGULAR RHYTHM, RRR, +S1, +S2 - GI/Abdominal Exam GI & Abdominal Exam: Soft, Normal Bowel Sounds. absent: Distended, Tenderness - Extremities Exam Extremities Exam: Full ROM, Normal Inspection - Neurological Exam Neurological Exam: Alert, Awake, CN II-XII Intact, Oriented x3 - Psychiatric Exam Psychiatric exam: Normal Affect, Normal Mood - Skin Skin Exam: Intact, Normal Color Assessment and Plan - Assessment and Plan (Free Text) Assessment: 67 yo female with multiple medical issues with PCN allergy diagnosed as a teenager verified by an Horse [employer]. The patient with leukocytosis. Await cultures especially urine cultures. Diabetes and HTN history? Local wound care. Elevated ESR and C-reactive protein. Completed Vancomycin and Aztreonam for antibiotic coverage. UTI with E. coli sensitive to Azactam. Was on Vancomycin for cellulitis IV. For UTI for 5-7 days treatment... completed. Supportive care. Cellulitis appears improved. No new issues. Social issues currently. Homeless at this time. CT scan of chest done. No infiltrates seen. Afebrile the past 24 hours. Mild congestion noted in CT with small pulmonary effusions. No leukocytosis. Slightly elevated procalcitonin (0.66) which is undefined without stronger evidence for pneumonia. When encouraged, she is able to use the incentive spirometer without issues and ambulate with minimal difficulty. Repeat procalcitonin showing 0.71. UTI with Klebsiella. Sensitive to Cipro. Was on Cipro for 5 day course at 500mg PO BID. Completed the antibiotic course. Stable currently. No new issues. Off antibiotics at this time. Multiple social issues. Chronic cough still with periods of hacking. Complained of Vague mild general pains. During this hospitalization, the patient developed respiratory failure and required intubation. Started on Zyvox and Aztreonam IV. Will add Flagyl as well. No leukocytosis. Noted C. Diff with positive antigen but negative toxin. Supportive care. Remains intubated and ventilated. Cultures pending. C. Diff negative to date. No leukocytosis or fever reported. Essentially clear X-ray. Hypothermia episodes most of yesterday to this morning. Noted gram positive cocci in most recent urine culture. Still awaiting identification. Supportive care. Patient did improve mentally. Still difficulty in weaning off respirator. She remains intubated. Failed weaning from vent. Tracheotomy performed yesterday. Repeat C. Diff testing was negative. Thank you for allowing me to participate in the care of the patient, we will follow with you.
--- NOTE | 2017-08-18 14:44 | CP.PCM.PN ---
Subjective - Date & Time of Evaluation Date of Evaluation: 08/18/17 Time of Evaluation: 14:42 - Subjective Subjective: Follow up Nephrology Consultation (covering for Dr Agustín Bia): Assessment: critical non-oliguric Acute Kidney Injury (N17.9) possibly hemodynamic, GI fluid loss, C diff diarrhoea leading to ATN: resolved morbid obesity, arthritis, anemia, asthma, RAS and RA factor+ recent cellulitis, UTI, fecal impaction acute hypercapnic respi failure hypocalcemia, hyperphosphatemia, acidosis, hypokalemia, hypomagnesemia vit D def Plan CATE has resolved maintain hemodynamics stable. can give ACEI or ARB if needed for HTN Monitor Input/Output, daily weights and renal function with basic metabolic panel can d.c IVF supplement electrolytes as needed started weekly Vit D supplements GN w/up neg with Anti-GBM (neg), anca (neg). has normal complements Dose meds/antibiotics for improved GFR. Glycemic control Further work up/management as per primary team. Thanks for allowing me to participate in care of your patient. Will sign off. Please call if any Qs. d/w team Dr Abel Pierson Office: [phone] Chief Complaint; unable to obtain reason for consult: kidney failure source of info: EMR HPI: Pt is a 67 F with hx of morbid obesity, arthritis, anemia, asthma, RAS and RA factor+ who had prolonged hospitalization for cellulitis which was treated with multiple antibiotics and also had UTI treated with antibiotics, constipation with fecal impaction, was awaiting to go to rehab but had hypercapnic respi failure 08/06/17 which required intubation. pt also having diarrhoea now. renal consulted since serum creatinine 1.6 on 08/06 and 2.6 . her serum creatinine was normal prior to that No recent iodinated contrast exposure. intermittent episodes of low BP (90/50) ROS: pt unable Physical Examination: General Appearance: s/p trach no distress. obese Vitals reviewed and noted as below Head; Atraumatic, normocephalic ENT: orally intubated EYES: Pupils are equal, round and reactive to light accommodation. Eye muscles and extraocular movement intact. Sclera is anicteric. Neck; supple no lymphadenopathy, no thyromegaly or bruit s/p trach Lungs: Normal respiratory rate/effort. Breath sounds bilateral clear Heart: Normal rate. s1s2 normal. No rub or gallop. Extremities: no edema. No varicose veins Neurological: Patient is awake follow commands Skin: Warm and dry. Normal turgor. No rash. Palpitation: Normal elasticity for age. dressing over legs + Abdomen: Abdomen is soft. Bowel sounds +. There is no abdominal tenderness, no guarding/rigidity no organomegaly. has rectal tube for diarrhoea Psych: unable MSK: no joint tenderness or swelling. Digits and nails normal, no deformity : kidney or bladder not palpable. has khanna + Labs/imaging reviewed. Past medical history, past surgical history, family history, social history, allergy reviewed and noted as below Family hx: no hx of CKD. Rest non-contributory work up: renal sono: neg Urine Na 88 FeNa2.1% urine eos neg normal complements Objective - Vital Signs/Intake and Output Vital Signs (last 24 hours): Temp Pulse Resp BP Pulse Ox 99.2 F 69 27 H 158/85 H 100 08/18/17 04:00 08/18/17 05:10 08/18/17 07:21 08/18/17 11:18 08/18/17 07:21 - Medications Medications: Current Medications Albuterol/Ipratropium (Duoneb 3 Mg/0.5 Mg (3 Ml) Ud) 3 ml IH [id number] [facility] Last Admin: 08/18/17 13:27 Dose: 3 ml Albuterol/Ipratropium (Duoneb 3 Mg/0.5 Mg (3 Ml) Ud) 3 ml IH [id number] PRN PRN Reason: SOB Budesonide (Pulmicort Respules) 1 mg IH [id number] [facility] Calcium Carbonate (Caltrate) 600 mg PO BID [facility] Last Admin: 08/18/17 09:48 Dose: 600 mg Ergocalciferol (Drisdol 50,000 Intl Units Cap) 1 cap PO Q7D [facility] Last Admin: 08/12/17 17:09 Dose: 1 cap Ferrous Sulfate (Feosol Liq) 300 mg PO TID [facility] Last Admin: 08/18/17 14:30 Dose: 300 mg Heparin Sodium (Porcine) (Heparin) 5,000 units SC Q12 [facility] PRN Reason: Protocol Last Admin: 08/18/17 09:48 Dose: 5,000 units Insulin Human Lispro (Humalog Med) 0 units SC Q6H [facility] PRN Reason: Protocol Last Admin: 08/18/17 14:31 Dose: Not Given Levothyroxine Sodium (Synthroid) 50 mcg IVP DAILY [facility] Last Admin: 08/18/17 09:54 Dose: 50 mcg Multivitamins/Vitamin C (Multi-Delyn Liquid) 15 ml PO 0800 [facility] Last Admin: 08/18/17 08:08 Dose: 15 ml Nystatin (Nystop Topical Powder) 1 gm TOP DAILY [facility] Last Admin: 08/18/17 09:51 Dose: 1 pow Pantoprazole Sodium (Protonix Susp) 40 mg PO ACB [facility] Prednisone (Prednisone Tab) 10 mg PO DAILY [facility] Last Admin: 08/18/17 11:30 Dose: 10 mg Zinc Sulfate (Zinc Sulfate 220 Mg Cap) 220 mg PO DAILY [facility] Last Admin: 08/18/17 09:55 Dose: 220 mg - Labs Labs: 08/18/17 05:30 08/18/17 05:30 PT 12.5 SECONDS (9.4-12.5) 08/17/17 05:45 INR 1.09 (0.93-1.08) H 08/17/17 05:45 APTT 27.7 Seconds (25.1-36.5) 08/17/17 05:45
[2017-08-18] MEDS: Budesonide 0.5 mg/2 ml Inhal Susp UD IH SCH (19:50)
[2017-08-19] MEDS: Albuterol-Ipratrop 3 mg / 0.5 (3 ml) UD IH SCH ×4 (02:30→20:20)
[2017-08-19] MEDS: Insulin Lispro (humaLOG) MEDIUM Coverage SC SCH ×4 (05:52→18:21)
[2017-08-19 06:50] LABS: BASO # 0.02 K/mm3 (0.0-2.0); BASO % 0.2 % (0.0-3.0); EOS # 0.2 (0.0-0.7); EOS % 2.6 % (1.5-5.0); GRAN # 6.5 (1.4-6.5); GRAN % 70.8 % (50.0-68.0); HEMOGLOBIN 8.5 g/dL (12.0-16.0); LYMPH # 1.6 (1.2-3.4); LYMPH % 17.4 % (22.0-35.0); MEAN CELL VOLUME 84.1 fl (80.0-105.0); MEAN CORPUSCULAR HEMOGLOBIN 26.5 pg (25.0-35.0); MEAN CORPUSCULAR HGB CONC 31.5 g/dl (31.0-37.0); MONO # 0.8 (0.1-0.6); RBC 3.21 10^6/uL (3.5-6.1); RED CELL DISTRIBUTION WIDTH 24.6 % (11.5-14.5); WHITE BLOOD COUNT 9.2 10^3/ul (4.5-11.0)
--- NOTE | 2017-08-19 07:33 | CP.CCUPN ---
<Dakota Phipps - Last Filed: 08/19/17 12:15> CCU Subjective - Physician Review Subjective (Free Text): Critical Care Progress note Patient seen and examined at bedside this AM. No acute events overnight. Nursing notes reviewed. s/p trach, PRVC 35 5 26 350. will attempt Pressure support trial this AM. Responds to simple verbal commands. shakes head yes and no to questions. +BM and flatus. full ROS unobtainable ABG on pressure support: 7.43 pCO2: 52, pO2: 106 CCU Objective - Vital Signs / Intake & Output Vital Signs (Last 4 hours): Vital Signs Temp Pulse Resp BP Pulse Ox 08/19/17 05:00 87 95 H 148/78 99 08/19/17 04:00 99.6 F 103 H 28 H 148/83 95 Intake and Output (Last 8hrs): Intake & Output 08/18/17 08/19/17 08/19/17 22:59 06:59 14:59 Intake Total 1460 500 Output Total 2450 450 Balance -990 50 Intake: IV 1100 LEFT FOREARM 300 Left Hand 0 left FA 800 Tube Feeding 360 500 Output: Urine 2450 450 Urethral (Christensen) 2450 450 Other: # Bowel Movements 0 1 - Physical Exam Head: Positive for: Atraumatic, Normocephalic Pupils: Positive for: PERRL Extroacular Muscles: Positive for: EOMI Conjunctiva: Positive for: Normal Mouth: Positive for: Moist Mucous Membranes Pharnyx: Positive for: Normal. Negative for: ERYTHEMA, EXUDATE, TONSILS ENLARGED Nose (External): Positive for: Atraumatic Nose (Internal): Positive for: Normal Inspection Neck: Positive for: Normal Range of Motion Respiratory/Chest: Positive for: Clear to Auscultation, Good Air Exchange, Other (Trach on vent support (35, 5, 26,350)). Negative for: Respiratory Distress, Accessory Muscle Use, Wheezes, Retracting, Rhonchi Cardiovascular: Positive for: Regular Rate and Rhythm, Normal S1, S2. Negative for: Murmurs Abdomen: Positive for: Normal Bowel Sounds, Other (NGT in place- feeds @ 40cc/hr ). Negative for: Tenderness, Distention, Peritoneal Signs Back: Positive for: Normal Inspection. Negative for: CVA Tenderness, Midline Tenderness Upper Extremity: Positive for: Normal Inspection, NORMAL PULSES, Capillary Refill < 2s. Negative for: Cyanosis, Edema, Erythema Lower Extremity: Positive for: NORMAL PULSES, Swelling, Capillary Refill < 2 s. Negative for: Edema, CALF TENDERNESS Neurological: Positive for: GCS=15, Motor Func Grossly Intact, Normal Sensory Function Skin: Positive for: Warm, Dry, Normal Color. Negative for: Rashes Psychiatric: Positive for: Alert, Oriented x 3 - Medications Active Medications: Active Medications Generic Name Dose Route Start Last Admin Trade Name Freq PRN Reason Stop Dose Admin Albuterol/Ipratropium 3 ml 08/15/17 11:36 08/19/17 02:30 Duoneb 3 Mg/0.5 Mg (3 Ml) Ud IH 3 ml [id number] ESCOBAR Administration Albuterol/Ipratropium 3 ml 08/18/17 09:22 Duoneb 3 Mg/0.5 Mg (3 Ml) Ud IH [id number] PRN SOB Budesonide 1 mg 08/18/17 20:00 08/18/17 19:50 Pulmicort Respules IH 1 mg [id number] ESCOBAR Administration Calcium Carbonate 600 mg 08/18/17 10:00 08/18/17 17:19 Caltrate PO 600 mg BID ESCOBAR Administration Ergocalciferol 1 cap 08/12/17 13:30 08/12/17 17:09 Drisdol 50,000 Intl Units Cap PO 1 cap Q7D ESCOBAR Administration Ferrous Sulfate 300 mg 08/16/17 10:00 08/18/17 17:19 Feosol Liq PO 300 mg TID ESCOBAR Administration Heparin Sodium (Porcine) 5,000 units 08/18/17 10:00 08/18/17 21:56 Heparin SC 5,000 units Q12 ESCOBAR Administration Protocol Insulin Human Lispro 0 units 08/14/17 18:00 08/19/17 05:52 Humalog Med SC Not Given Q6H [facility] Protocol Levothyroxine Sodium 50 mcg 08/11/17 10:00 08/18/17 09:54 Synthroid IVP 50 mcg DAILY ESCOBAR Administration Multivitamins/Vitamin C 15 ml 08/17/17 08:00 08/18/17 08:08 Multi-Delyn Liquid PO 15 ml 0800 ESCOBAR Administration Nystatin 1 gm 08/17/17 10:00 08/18/17 09:51 Nystop Topical Powder TOP 1 pow DAILY ESCOBAR Administration Pantoprazole Sodium 40 mg 08/19/17 07:30 Protonix Susp PO ACB ESCOBAR Prednisone 10 mg 08/18/17 10:15 08/18/17 11:30 Prednisone Tab PO 10 mg DAILY ESCOBAR Administration Zinc Sulfate 220 mg 06/15/17 14:30 08/18/17 09:55 Zinc Sulfate 220 Mg Cap PO 220 mg DAILY ESCOBAR Administration - Patient Studies Lab Studies: Lab Studies 08/19/17 08/19/17 08/18/17 Range/Units 06:00 05:47 23:51 WBC 9.2 (4.5-11.0) 10^3/ul RBC 3.21 L (3.5-6.1) 10^6/uL Hgb 8.5 L (12.0-16.0) g/dL Hct 27.0 L (36.0-48.0) % MCV 84.1 (80.0-105.0) fl MCH 26.5 (25.0-35.0) pg MCHC 31.5 (31.0-37.0) g/dl RDW 24.6 H (11.5-14.5) % Plt Count 225 (120.0-450.0) 10^3/uL MPV 9.0 (7.0-11.0) fl Gran % 70.8 H (50.0-68.0) % Lymph % (Auto) 17.4 L (22.0-35.0) % Grant % (Auto) 9.0 H (1.0-6.0) % Eos % (Auto) 2.6 (1.5-5.0) % Baso % (Auto) 0.2 (0.0-3.0) % Gran # 6.50 (1.4-6.5) Lymph # 1.6 (1.2-3.4) Grant # 0.8 H (0.1-0.6) Eos # 0.2 (0.0-0.7) Baso # 0.02 (0.0-2.0) K/mm3 pCO2 (35-45) mm/Hg pO2 (80-100) mm/Hg HCO3 (21-28) mmol/L ABG pH (7.35-7.45) ABG Total CO2 (22-28) mmol.L ABG O2 Saturation (95-98) % ABG O2 Content (15-23) ML/dl ABG Base Excess (-2.0-3.0) mmol/L ABG Hemoglobin (11.7-17.4) g/dL ABG Carboxyhemoglobin (0.5-1.5) % POC ABG HHb (Measured) (0-5) % ABG Methemoglobin (0.0-3.0) % ABG O2 Capacity (16-24) mL/dl Hgb O2 Saturation (95.0-98.0) % FiO2 % Sodium (132-148) mmol/L Potassium (3.6-5.0) mmol/L Chloride (98-107) mmol/L Carbon Dioxide (21-33) mmol/L Anion Gap (10-20) BUN (7-21) mg/dL Creatinine (0.7-1.2) mg/dl Est GFR ( Amer) Est GFR (Non-Af Amer) POC Glucose (mg/dL) 102 112 H (65-110) mg/dL Random Glucose (70-110) mg/dL Calcium (8.4-10.5) mg/dL Phosphorus (2.5-4.5) mg/dL Magnesium (1.7-2.2) mg/dL Albumin (3.0-4.8) g/dL 08/18/17 08/18/17 08/18/17 Range/Units 17:12 11:54 07:45 WBC (4.5-11.0) 10^3/ul RBC (3.5-6.1) 10^6/uL Hgb (12.0-16.0) g/dL Hct (36.0-48.0) % MCV (80.0-105.0) fl MCH (25.0-35.0) pg MCHC (31.0-37.0) g/dl RDW (11.5-14.5) % Plt Count (120.0-450.0) 10^3/uL MPV (7.0-11.0) fl Gran % (50.0-68.0) % Lymph % (Auto) (22.0-35.0) % Grant % (Auto) (1.0-6.0) % Eos % (Auto) (1.5-5.0) % Baso % (Auto) (0.0-3.0) % Gran # (1.4-6.5) Lymph # (1.2-3.4) Grant # (0.1-0.6) Eos # (0.0-0.7) Baso # (0.0-2.0) K/mm3 pCO2 39 (35-45) mm/Hg pO2 142.0 H (80-100) mm/Hg HCO3 29.0 H (21-28) mmol/L ABG pH 7.48 H (7.35-7.45) ABG Total CO2 30.2 H (22-28) mmol.L ABG O2 Saturation 99.7 H (95-98) % ABG O2 Content 11.5 L (15-23) ML/dl ABG Base Excess 5.1 H (-2.0-3.0) mmol/L ABG Hemoglobin 8.2 L (11.7-17.4) g/dL ABG Carboxyhemoglobin 1.8 H (0.5-1.5) % POC ABG HHb (Measured) 0.3 (0-5) % ABG Methemoglobin 0.9 (0.0-3.0) % ABG O2 Capacity 11.5 L (16-24) mL/dl Hgb O2 Saturation 97.0 (95.0-98.0) % FiO2 40.0 % Sodium (132-148) mmol/L Potassium (3.6-5.0) mmol/L Chloride (98-107) mmol/L Carbon Dioxide (21-33) mmol/L Anion Gap (10-20) BUN (7-21) mg/dL Creatinine (0.7-1.2) mg/dl Est GFR ( Amer) Est GFR (Non-Af Amer) POC Glucose (mg/dL) 118 H 115 H (65-110) mg/dL Random Glucose (70-110) mg/dL Calcium (8.4-10.5) mg/dL Phosphorus (2.5-4.5) mg/dL Magnesium (1.7-2.2) mg/dL Albumin (3.0-4.8) g/dL 08/18/17 08/18/17 Range/Units 05:30 05:30 WBC (4.5-11.0) 10^3/ul RBC (3.5-6.1) 10^6/uL Hgb (12.0-16.0) g/dL Hct (36.0-48.0) % MCV (80.0-105.0) fl MCH (25.0-35.0) pg MCHC (31.0-37.0) g/dl RDW (11.5-14.5) % Plt Count (120.0-450.0) 10^3/uL MPV (7.0-11.0) fl Gran % (50.0-68.0) % Lymph % (Auto) (22.0-35.0) % Grant % (Auto) (1.0-6.0) % Eos % (Auto) (1.5-5.0) % Baso % (Auto) (0.0-3.0) % Gran # (1.4-6.5) Lymph # (1.2-3.4) Grant # (0.1-0.6) Eos # (0.0-0.7) Baso # (0.0-2.0) K/mm3 pCO2 (35-45) mm/Hg pO2 (80-100) mm/Hg HCO3 (21-28) mmol/L ABG pH (7.35-7.45) ABG Total CO2 (22-28) mmol.L ABG O2 Saturation (95-98) % ABG O2 Content (15-23) ML/dl ABG Base Excess (-2.0-3.0) mmol/L ABG Hemoglobin (11.7-17.4) g/dL ABG Carboxyhemoglobin (0.5-1.5) % POC ABG HHb (Measured) (0-5) % ABG Methemoglobin (0.0-3.0) % ABG O2 Capacity (16-24) mL/dl Hgb O2 Saturation (95.0-98.0) % FiO2 % Sodium 141 (132-148) mmol/L Potassium 3.2 L (3.6-5.0) mmol/L Chloride 101 (98-107) mmol/L Carbon Dioxide 29 (21-33) mmol/L Anion Gap 13 (10-20) BUN 22 H (7-21) mg/dL Creatinine 1.0 (0.7-1.2) mg/dl Est GFR ( Amer) > 60 Est GFR (Non-Af Amer) 55 POC Glucose (mg/dL) (65-110) mg/dL Random Glucose 88 (70-110) mg/dL Calcium 6.3 L* (8.4-10.5) mg/dL Phosphorus 2.8 (2.5-4.5) mg/dL Magnesium 1.0 L* (1.7-2.2) mg/dL Albumin 2.6 L (3.0-4.8) g/dL Laboratory Results - last 24 hr 08/18/17 08/18/17 08/18/17 05:30 05:30 07:45 WBC RBC Hgb Hct MCV MCH MCHC RDW Plt Count MPV Gran % Lymph % (Auto) Grant % (Auto) Eos % (Auto) Baso % (Auto) Gran # Lymph # Grant # Eos # Baso # pCO2 39 pO2 142.0 H HCO3 29.0 H ABG pH 7.48 H ABG Total CO2 30.2 H ABG O2 Saturation 99.7 H ABG O2 Content 11.5 L ABG Base Excess 5.1 H ABG Hemoglobin 8.2 L ABG Carboxyhemoglobin 1.8 H POC ABG HHb (Measured) 0.3 ABG Methemoglobin 0.9 ABG O2 Capacity 11.5 L Hgb O2 Saturation 97.0 FiO2 40.0 Sodium 141 Potassium 3.2 L Chloride 101 Carbon Dioxide 29 Anion Gap 13 BUN 22 H Creatinine 1.0 Est GFR ( Amer) > 60 Est GFR (Non-Af Amer) 55 POC Glucose (mg/dL) Random Glucose 88 Calcium 6.3 L* Phosphorus 2.8 Magnesium 1.0 L* Albumin 2.6 L 08/18/17 08/18/17 08/18/17 11:54 17:12 23:51 WBC RBC Hgb Hct MCV MCH MCHC RDW Plt Count MPV Gran % Lymph % (Auto) Grant % (Auto) Eos % (Auto) Baso % (Auto) Gran # Lymph # Grant # Eos # Baso # pCO2 pO2 HCO3 ABG pH ABG Total CO2 ABG O2 Saturation ABG O2 Content ABG Base Excess ABG Hemoglobin ABG Carboxyhemoglobin POC ABG HHb (Measured) ABG Methemoglobin ABG O2 Capacity Hgb O2 Saturation FiO2 Sodium Potassium Chloride Carbon Dioxide Anion Gap BUN Creatinine Est GFR ( Amer) Est GFR (Non-Af Amer) POC Glucose (mg/dL) 115 H 118 H 112 H Random Glucose Calcium Phosphorus Magnesium Albumin 08/19/17 08/19/17 05:47 06:00 WBC 9.2 RBC 3.21 L Hgb 8.5 L Hct 27.0 L MCV 84.1 MCH 26.5 MCHC 31.5 RDW 24.6 H Plt Count 225 MPV 9.0 Gran % 70.8 H Lymph % (Auto) 17.4 L Grant % (Auto) 9.0 H Eos % (Auto) 2.6 Baso % (Auto) 0.2 Gran # 6.50 Lymph # 1.6 Grant # 0.8 H Eos # 0.2 Baso # 0.02 pCO2 pO2 HCO3 ABG pH ABG Total CO2 ABG O2 Saturation ABG O2 Content ABG Base Excess ABG Hemoglobin ABG Carboxyhemoglobin POC ABG HHb (Measured) ABG Methemoglobin ABG O2 Capacity Hgb O2 Saturation FiO2 Sodium Potassium Chloride Carbon Dioxide Anion Gap BUN Creatinine Est GFR ( Amer) Est GFR (Non-Af Amer) POC Glucose (mg/dL) 102 Random Glucose Calcium Phosphorus Magnesium Albumin Fingerstick Blood Sugar Results: 102 Assessment/Plan - Assessment and Plan (Free Text) Assessment: 67F w/ ventilator dependent respiratory failure intubated on 08/06/17. s/p Trach on 08/17/17. On Tube feeds started for nutrition. Off sedation and pressors. Currently AAOx3. Currently on pressure support, doing well at this time. Currently afebrile, hemodynamically stable, in no acute distress. Plan: Neuro: Pt awake, alert responds to verbal stimuli , follows commands and moves extremities. Cardio: hemodynamically stable keep MAP > 65 Pulm: Trach (35, 5, 26, 350)- on pressure support at this time Taper steroid SaO2 > 92% Weaning protocol Prednisone 10mg po qd Chest physiotherapy Suction q4h OOB to chair with physical therapy GI: currently on tube feeds residual < 100 Feeds @ 40cc/hr Protonix 40mg ivp qd Monitor BM Renal/Electrolytes: Good urine output; Cr trending down replete electrolytes PRN Hold BILLY-I Endo: maintain euglycemia RISS medium Accuchecks Heme: dvt ppx: Hep subQ ID: C Diff antigen and toxin negative 08/16 urine culture gram + cocci 08/10 urine culture +Klebsiella pna 07/05 C. Diff antigen positive and toxin negative 08/08 blood culture final negative x 2 08/10 and 07/05/[address] Montero discussed with Dr. Love Critical Care attending Dakota Phipps <Bassem Love - Last Filed: 08/19/17 18:13> CCU Objective - Vital Signs / Intake & Output Vital Signs (Last 4 hours): Vital Signs Temp Pulse Resp BP Pulse Ox 08/19/17 16:00 99 F 08/19/17 15:10 89 26 H 100 08/19/17 15:00 84 140/69 100 08/19/17 14:50 85 26 H 100 08/19/17 14:40 75 26 H 100 08/19/17 14:33 84 08/19/17 14:20 97 08/19/17 14:10 97 Intake and Output (Last 8hrs): Intake & Output 08/19/17 08/19/17 08/19/17 06:59 14:59 22:59 Intake Total 500 Output Total 450 Balance 50 Intake: Tube Feeding 500 Output: Urine 450 Urethral (Christensen) 450 Other: # Bowel Movements 1 - Medications Active Medications: Active Medications Generic Name Dose Route Start Last Admin Trade Name Freq PRN Reason Stop Dose Admin Albuterol/Ipratropium 3 ml 08/15/17 11:36 08/19/17 13:36 Duoneb 3 Mg/0.5 Mg (3 Ml) Ud IH 3 ml [id number] ESCOBAR Administration Albuterol/Ipratropium 3 ml 08/18/17 09:22 Duoneb 3 Mg/0.5 Mg (3 Ml) Ud IH [id number] PRN SOB Budesonide 1 mg 08/18/17 20:00 08/19/17 07:35 Pulmicort Respules IH 1 mg [id number] ESCOBAR Administration Calcium Carbonate 600 mg 08/18/17 10:00 08/19/17 09:13 Caltrate PO 600 mg BID ESCOBAR Administration Ergocalciferol 1 cap 08/12/17 13:30 08/19/17 13:43 Drisdol 50,000 Intl Units Cap PO 1 cap Q7D ESCOBAR Administration Ferrous Sulfate 300 mg 08/16/17 10:00 08/19/17 13:44 Feosol Liq PO 300 mg TID ESCOBAR Administration Heparin Sodium (Porcine) 5,000 units 08/18/17 10:00 08/19/17 09:14 Heparin SC 5,000 units Q12 ESCOBAR Administration Protocol Insulin Human Lispro 0 units 08/14/17 18:00 08/19/17 13:43 Humalog Med SC Not Given Q6H [facility] Protocol Levothyroxine Sodium 50 mcg 08/11/17 10:00 08/19/17 09:13 Synthroid IVP 50 mcg DAILY ESCOBAR Administration Multivitamins/Vitamin C 15 ml 08/17/17 08:00 08/19/17 09:14 Multi-Delyn Liquid PO 15 ml 0800 ESCOBAR Administration Nystatin 1 gm 08/17/17 10:00 08/19/17 09:14 Nystop Topical Powder TOP 1 pow DAILY ESCOBAR Administration Pantoprazole Sodium 40 mg 08/19/17 07:30 08/19/17 09:13 Protonix Susp PO 40 mg ACB ESCOBAR Administration Prednisone 10 mg 08/18/17 10:15 08/19/17 09:13 Prednisone Tab PO 10 mg DAILY ESCOBAR Administration Zinc Sulfate 220 mg 06/15/17 14:30 08/19/17 09:14 Zinc Sulfate 220 Mg Cap PO 220 mg DAILY ESCOBAR Administration - Patient Studies Lab Studies: Lab Studies 08/19/17 08/19/17 08/19/17 Range/Units 11:49 11:35 06:00 WBC (4.5-11.0) 10^3/ul RBC (3.5-6.1) 10^6/uL Hgb (12.0-16.0) g/dL Hct (36.0-48.0) % MCV (80.0-105.0) fl MCH (25.0-35.0) pg MCHC (31.0-37.0) g/dl RDW (11.5-14.5) % Plt Count (120.0-450.0) 10^3/uL MPV (7.0-11.0) fl Gran % (50.0-68.0) % Lymph % (Auto) (22.0-35.0) % Grant % (Auto) (1.0-6.0) % Eos % (Auto) (1.5-5.0) % Baso % (Auto) (0.0-3.0) % Gran # (1.4-6.5) Lymph # (1.2-3.4) Grant # (0.1-0.6) Eos # (0.0-0.7) Baso # (0.0-2.0) K/mm3 pCO2 52 H (35-45) mm/Hg pO2 106.0 H (80-100) mm/Hg HCO3 34.5 H (21-28) mmol/L ABG pH 7.43 (7.35-7.45) ABG Total CO2 36.1 H (22-28) mmol.L ABG O2 Saturation 99.5 H (95-98) % ABG O2 Content 12.0 L (15-23) ML/dl ABG Base Excess 9.0 H (-2.0-3.0) mmol/L ABG Hemoglobin 8.7 L (11.7-17.4) g/dL ABG Carboxyhemoglobin 2.0 H (0.5-1.5) % POC ABG HHb (Measured) 0.5 (0-5) % ABG Methemoglobin 1.2 (0.0-3.0) % ABG O2 Capacity 12.1 L (16-24) mL/dl Hgb O2 Saturation 96.3 (95.0-98.0) % FiO2 35.0 % Sodium 140 (132-148) mmol/L Potassium 3.8 (3.6-5.0) mmol/L Chloride 100 (98-107) mmol/L Carbon Dioxide 33 (21-33) mmol/L Anion Gap 11 (10-20) BUN 20 (7-21) mg/dL Creatinine 1.2 (0.7-1.2) mg/dl Est GFR ( Amer) 54 Est GFR (Non-Af Amer) 45 POC Glucose (mg/dL) 117 H (65-110) mg/dL Random Glucose 109 (70-110) mg/dL Calcium 6.8 L* (8.4-10.5) mg/dL Magnesium 1.4 L (1.7-2.2) mg/dL Total Bilirubin 0.3 (0.2-1.3) mg/dL AST 39 H (14-36) U/L ALT 32 (7-56) U/L Alkaline Phosphatase 84 (38-126) U/L Total Protein 5.9 (5.8-8.3) g/dL Albumin 2.9 L (3.0-4.8) g/dL Globulin 3.0 gm/dL Albumin/Globulin Ratio 1.0 L (1.1-1.8) 08/19/17 08/19/17 08/18/17 Range/Units 06:00 05:47 23:51 WBC 9.2 (4.5-11.0) 10^3/ul RBC 3.21 L (3.5-6.1) 10^6/uL Hgb 8.5 L (12.0-16.0) g/dL Hct 27.0 L (36.0-48.0) % MCV 84.1 (80.0-105.0) fl MCH 26.5 (25.0-35.0) pg MCHC 31.5 (31.0-37.0) g/dl RDW 24.6 H (11.5-14.5) % Plt Count 225 (120.0-450.0) 10^3/uL MPV 9.0 (7.0-11.0) fl Gran % 70.8 H (50.0-68.0) % Lymph % (Auto) 17.4 L (22.0-35.0) % Grant % (Auto) 9.0 H (1.0-6.0) % Eos % (Auto) 2.6 (1.5-5.0) % Baso % (Auto) 0.2 (0.0-3.0) % Gran # 6.50 (1.4-6.5) Lymph # 1.6 (1.2-3.4) Grant # 0.8 H (0.1-0.6) Eos # 0.2 (0.0-0.7) Baso # 0.02 (0.0-2.0) K/mm3 pCO2 (35-45) mm/Hg pO2 (80-100) mm/Hg HCO3 (21-28) mmol/L ABG pH (7.35-7.45) ABG Total CO2 (22-28) mmol.L ABG O2 Saturation (95-98) % ABG O2 Content (15-23) ML/dl ABG Base Excess (-2.0-3.0) mmol/L ABG Hemoglobin (11.7-17.4) g/dL ABG Carboxyhemoglobin (0.5-1.5) % POC ABG HHb (Measured) (0-5) % ABG Methemoglobin (0.0-3.0) % ABG O2 Capacity (16-24) mL/dl Hgb O2 Saturation (95.0-98.0) % FiO2 % Sodium (132-148) mmol/L Potassium (3.6-5.0) mmol/L Chloride (98-107) mmol/L Carbon Dioxide (21-33) mmol/L Anion Gap (10-20) BUN (7-21) mg/dL Creatinine (0.7-1.2) mg/dl Est GFR ( Amer) Est GFR (Non-Af Amer) POC Glucose (mg/dL) 102 112 H (65-110) mg/dL Random Glucose (70-110) mg/dL Calcium (8.4-10.5) mg/dL Magnesium (1.7-2.2) mg/dL Total Bilirubin (0.2-1.3) mg/dL AST (14-36) U/L ALT (7-56) U/L Alkaline Phosphatase (38-126) U/L Total Protein (5.8-8.3) g/dL Albumin (3.0-4.8) g/dL Globulin gm/dL Albumin/Globulin Ratio (1.1-1.8) Laboratory Results - last 24 hr 08/18/17 08/19/17 08/19/17 23:51 05:47 06:00 WBC 9.2 RBC 3.21 L Hgb 8.5 L Hct 27.0 L MCV 84.1 MCH 26.5 MCHC 31.5 RDW 24.6 H Plt Count 225 MPV 9.0 Gran % 70.8 H Lymph % (Auto) 17.4 L Grant % (Auto) 9.0 H Eos % (Auto) 2.6 Baso % (Auto) 0.2 Gran # 6.50 Lymph # 1.6 Grant # 0.8 H Eos # 0.2 Baso # 0.02 pCO2 pO2 HCO3 ABG pH ABG Total CO2 ABG O2 Saturation ABG O2 Content ABG Base Excess ABG Hemoglobin ABG Carboxyhemoglobin POC ABG HHb (Measured) ABG Methemoglobin ABG O2 Capacity Hgb O2 Saturation FiO2 Sodium Potassium Chloride Carbon Dioxide Anion Gap BUN Creatinine Est GFR ( Amer) Est GFR (Non-Af Amer) POC Glucose (mg/dL) 112 H 102 Random Glucose Calcium Magnesium Total Bilirubin AST ALT Alkaline Phosphatase Total Protein Albumin Globulin Albumin/Globulin Ratio 08/19/17 08/19/17 08/19/17 06:00 11:35 11:49 WBC RBC Hgb Hct MCV MCH MCHC RDW Plt Count MPV Gran % Lymph % (Auto) Grant % (Auto) Eos % (Auto) Baso % (Auto) Gran # Lymph # Grant # Eos # Baso # pCO2 52 H pO2 106.0 H HCO3 34.5 H ABG pH 7.43 ABG Total CO2 36.1 H ABG O2 Saturation 99.5 H ABG O2 Content 12.0 L ABG Base Excess 9.0 H ABG Hemoglobin 8.7 L ABG Carboxyhemoglobin 2.0 H POC ABG HHb (Measured) 0.5 ABG Methemoglobin 1.2 ABG O2 Capacity 12.1 L Hgb O2 Saturation 96.3 FiO2 35.0 Sodium 140 Potassium 3.8 Chloride 100 Carbon Dioxide 33 Anion Gap 11 BUN 20 Creatinine 1.2 Est GFR ( Amer) 54 Est GFR (Non-Af Amer) 45 POC Glucose (mg/dL) 117 H Random Glucose 109 Calcium 6.8 L* Magnesium 1.4 L Total Bilirubin 0.3 AST 39 H ALT 32 Alkaline Phosphatase 84 Total Protein 5.9 Albumin 2.9 L Globulin 3.0 Albumin/Globulin Ratio 1.0 L Attending/Attestation - Attestation I have personally seen and examined this patient.: Yes I have fully participated in the care of the patient.: Yes I have reviewed all pertinent clinical information: Yes Notes (Text): 08/19/17 18:09 67 yo female with chronic respiratory insufficiency, VDRF-->OOB to chair, PT, tracheal suction, pulmonary toilet, conservative fluid and 02 management, CATE improving, off abx. tolerated about 4 hrs on PS 10/5 and being in the chiar since morning. bronchodilators, steroid taper. DVT/GI prophylaxis ccm time 40 min
[2017-08-19] MEDS: Budesonide 0.5 mg/2 ml Inhal Susp UD IH SCH ×2 (07:35→20:20)
[2017-08-19 07:56] LABS: ALBUMIN 2.9 g/dL (3.0-4.8); CALCIUM 6.8 mg/dL (8.4-10.5); MAGNESIUM 1.4 mg/dL (1.7-2.2)
--- NOTE | 2017-08-19 07:59 | CP.PCM.PN ---
<Vivian Guerrero - Last Filed: 08/19/17 14:32> Subjective - Date & Time of Evaluation Date of Evaluation: 08/19/17 Time of Evaluation: 07:56 - Subjective Subjective: [id number]- progress note for hospitalist service Patient seen and examined at bedside in ICU. No acute distress. Patient is awake and alert. No acute events overnight. Patient had tracheotomy. pod #2. This morning patient is under going weaning trial to cpap. Patient says some discomfort in her abdomen, but denies any other pain or other issues. Patient last BM was yesterday. Objective - Vital Signs/Intake and Output Vital Signs (last 24 hours): Temp Pulse Resp BP Pulse Ox 99.6 F 87 95 H 148/78 99 08/19/17 04:00 08/19/17 05:00 08/19/17 05:00 08/19/17 05:00 08/19/17 05:00 Intake and Output: 08/19/17 08/19/17 06:59 18:59 Intake Total 500 Output Total 450 Balance 50 - Medications Medications: Current Medications Albuterol/Ipratropium (Duoneb 3 Mg/0.5 Mg (3 Ml) Ud) 3 ml IH [id number] [facility] Last Admin: 08/19/17 07:37 Dose: 3 ml Albuterol/Ipratropium (Duoneb 3 Mg/0.5 Mg (3 Ml) Ud) 3 ml IH [id number] PRN PRN Reason: SOB Budesonide (Pulmicort Respules) 1 mg IH [id number] [facility] Last Admin: 08/19/17 07:35 Dose: 1 mg Calcium Carbonate (Caltrate) 600 mg PO BID [facility] Last Admin: 08/18/17 17:19 Dose: 600 mg Ergocalciferol (Drisdol 50,000 Intl Units Cap) 1 cap PO Q7D [facility] Last Admin: 08/12/17 17:09 Dose: 1 cap Ferrous Sulfate (Feosol Liq) 300 mg PO TID [facility] Last Admin: 08/18/17 17:19 Dose: 300 mg Heparin Sodium (Porcine) (Heparin) 5,000 units SC Q12 [facility] PRN Reason: Protocol Last Admin: 08/18/17 21:56 Dose: 5,000 units Insulin Human Lispro (Humalog Med) 0 units SC Q6H [facility] PRN Reason: Protocol Last Admin: 08/19/17 05:52 Dose: Not Given Levothyroxine Sodium (Synthroid) 50 mcg IVP DAILY [facility] Last Admin: 08/18/17 09:54 Dose: 50 mcg Multivitamins/Vitamin C (Multi-Delyn Liquid) 15 ml PO 0800 [facility] Last Admin: 08/18/17 08:08 Dose: 15 ml Nystatin (Nystop Topical Powder) 1 gm TOP DAILY [facility] Last Admin: 08/18/17 09:51 Dose: 1 pow Pantoprazole Sodium (Protonix Susp) 40 mg PO ACB [facility] Prednisone (Prednisone Tab) 10 mg PO DAILY [facility] Last Admin: 08/18/17 11:30 Dose: 10 mg Zinc Sulfate (Zinc Sulfate 220 Mg Cap) 220 mg PO DAILY [facility] Last Admin: 08/18/17 09:55 Dose: 220 mg - Labs Labs: 08/19/17 06:00 08/18/17 05:30 PT 12.5 SECONDS (9.4-12.5) 08/17/17 05:45 INR 1.09 (0.93-1.08) H 08/17/17 05:45 APTT 27.7 Seconds (25.1-36.5) 08/17/17 05:45 - Constitutional Appears: No Acute Distress - Head Exam Head Exam: ATRAUMATIC, NORMAL INSPECTION, NORMOCEPHALIC - Eye Exam Eye Exam: EOMI, Normal appearance - ENT Exam ENT Exam: Mucous Membranes Moist - Neck Exam Additional comments: trach collar in place, no erythema - Respiratory Exam Respiratory Exam: Clear to Ausculation Bilateral. absent: Rhonchi, Wheezes, Respiratory Distress - Cardiovascular Exam Cardiovascular Exam: REGULAR RHYTHM, +S1, +S2. absent: Tachycardia, Diastolic murmur, Murmur - GI/Abdominal Exam GI & Abdominal Exam: Distended (chronic), Soft, Normal Bowel Sounds. absent: Firm, Guarding, Rigid, Tenderness - Extremities Exam Additional comments: +1 pitting edema bilateral extremities - Neurological Exam Neurological Exam: Alert, Awake - Skin Skin Exam: Dry, Intact, Normal Color, Warm Assessment and Plan - Assessment and Plan (Free Text) Assessment: Patient is a 67 year old female with history of asthma, arthritis, anemia, and obesity who was originally admitted for right lower extremity cellulitis and UTI. During her hospitalization course she developed acute hypercapneic respiratory failure secondary to asthma/RA airway disease/kyphoscoliosis in setting of cdiff colitis. She is monitored in the ICU. Currently afebrile, hemodynamically stable, POD#2 trach on NGT feeds. Plan: 1. Hypercapnic Respiratory Failure - patient AAOx3 - patient is status post trach day #2 - Surgery following - CT head no acute findings - CXR reviewed; minimal infiltrate in Left lung base; see full reports - continue to monitor respiratory status - continue with duonebs, pulmicort and prednisone - procal 1.49 - patient underwent cpap weaning trial 2. chronic Abdominal Distension - CT Abdomen Pelvis with PO and IV Contrast (07/18):Interstitial and airspace disease in the lung bases; mild cardiomegaly and atherosclerotic disease; fatty liver; gallstones; mild ileus, no obstruction; constipation with fecal impaction - abdominal flat plate-No acute changes or findings - patient is having BM - will continue to monitor 3. Normocytic anemia - Hemoglobins reviewed, trended, will transfuse if Hbg < 7.0 - Monitor daily 4. Cdiff colitis-resolved - completed course of flagyl - rectal tube removed - negative toxin and antigen c diff 5. Acute Kidney injury - Creatinine improved - Nephrology following - Monitor and maintain MAP > 65 - Monitor Input/Output, daily weights and renal function with basic metabolic panel - supplement electrolytes as needed - Anti-GBM negative, anca negative has normal complements - weekly vitamin D supplements - continue with IVF hydration - hold BILLY/ARB - avoid nephrotoxic agents and renally dose medications 6. HTN - BP reviewed, trended, and appreciated - hold zestril due to CATE 7. Hypokalemia - improved - continue to monitor replete as needed 8.Hypocalcemia - improved, coorected 7.7 - per nephrology started on calcium carbontae 600mg BID - continue to monitor replete as needed 9. Hypomagnesia - improved to 1.4 from 1.0 - repleted - continue to monitor, correct as needed 10. h/o hypothyriodism - continue synthroid 50mcg daily Prophylaxis: - GI ppx Protonix - DVT ppx: Heparin <Juan Rodriguez - Last Filed: 08/19/17 15:30> Objective - Vital Signs/Intake and Output Vital Signs (last 24 hours): Temp Pulse Resp BP Pulse Ox 98.8 F 89 26 H 140/69 100 08/19/17 08:00 08/19/17 15:10 08/19/17 15:10 08/19/17 15:00 08/19/17 15:10 Intake and Output: 08/19/17 08/19/17 06:59 18:59 Intake Total 500 Output Total 450 Balance 50 - Medications Medications: Current Medications Albuterol/Ipratropium (Duoneb 3 Mg/0.5 Mg (3 Ml) Ud) 3 ml IH [id number] [facility] Last Admin: 08/19/17 13:36 Dose: 3 ml Albuterol/Ipratropium (Duoneb 3 Mg/0.5 Mg (3 Ml) Ud) 3 ml IH [id number] PRN PRN Reason: SOB Budesonide (Pulmicort Respules) 1 mg IH [id number] [facility] Last Admin: 08/19/17 07:35 Dose: 1 mg Calcium Carbonate (Caltrate) 600 mg PO BID [facility] Last Admin: 08/19/17 09:13 Dose: 600 mg Ergocalciferol (Drisdol 50,000 Intl Units Cap) 1 cap PO Q7D [facility] Last Admin: 08/19/17 13:43 Dose: 1 cap Ferrous Sulfate (Feosol Liq) 300 mg PO TID [facility] Last Admin: 08/19/17 13:44 Dose: 300 mg Heparin Sodium (Porcine) (Heparin) 5,000 units SC Q12 [facility] PRN Reason: Protocol Last Admin: 08/19/17 09:14 Dose: 5,000 units Insulin Human Lispro (Humalog Med) 0 units SC Q6H [facility] PRN Reason: Protocol Last Admin: 08/19/17 13:43 Dose: Not Given Levothyroxine Sodium (Synthroid) 50 mcg IVP DAILY [facility] Last Admin: 08/19/17 09:13 Dose: 50 mcg Multivitamins/Vitamin C (Multi-Delyn Liquid) 15 ml PO 0800 [facility] Last Admin: 08/19/17 09:14 Dose: 15 ml Nystatin (Nystop Topical Powder) 1 gm TOP DAILY [facility] Last Admin: 08/19/17 09:14 Dose: 1 pow Pantoprazole Sodium (Protonix Susp) 40 mg PO ACB [facility] Last Admin: 08/19/17 09:13 Dose: 40 mg Prednisone (Prednisone Tab) 10 mg PO DAILY [facility] Last Admin: 08/19/17 09:13 Dose: 10 mg Zinc Sulfate (Zinc Sulfate 220 Mg Cap) 220 mg PO DAILY [facility] Last Admin: 08/19/17 09:14 Dose: 220 mg - Labs Labs: 08/19/17 06:00 08/19/17 06:00 PT 12.5 SECONDS (9.4-12.5) 08/17/17 05:45 INR 1.09 (0.93-1.08) H 08/17/17 05:45 APTT 27.7 Seconds (25.1-36.5) 08/17/17 05:45 Attending/Attestation - Attestation I have personally seen and examined this patient.: Yes I have fully participated in the care of the patient.: Yes I have reviewed all pertinent clinical information, including history, physical exam and plan: Yes Notes (Text): 08/19/17 15:27 67 year old female who was intubated in ICU secondary to hypercapneic respiratory failure secondary to COPD exacerbation. She was seen by surgery and is now s/p tracheostomy POD #2. She is on duonebs, pulmicort and tapering steroids as per national recruiter. Patient is s/p antibiotics for pneumonia. Repeat CDif study was negative. Renal function has improved. Will replete and repeat lytes. Juan Rodriguez MD Hospitalist.
[2017-08-19] MEDS ORDERED: Magnesium Sulfate 2 GM in Sodium Chloride 0.9% 100 ML IVPB ONE (08:02)
[2017-08-19] MEDS: Pantoprazole 40 mg Susp UD PO SCH (09:13)
[2017-08-19] MEDS: Levothyroxine 100 mcg (0.1 mg) Inj IVP SCH (09:13)
[2017-08-19] MEDS: Ferrous Sulfate 300 mg/5 mL Liq UD PO SCH ×3 (09:14→18:46)
[2017-08-19] MEDS: Multi Vitamins 15 mL UD Oral Solution PO SCH (09:14)
[2017-08-19] MEDS: Nystatin 100,000 Units/gm Topical Pow(15 gm) TOP SCH (09:14)
--- NOTE | 2017-08-19 09:15 | CP.PCM.PN ---
Subjective - Date & Time of Evaluation Date of Evaluation: 08/19/17 Time of Evaluation: 09:10 - Subjective Subjective: General Surgery Progress Note for Dr. Jain Patient seen and examined at bedside. Patient gesticulates that she is doing fine and is not in any pain at the time of the encounter. Nurse reports no events overnight. SBT trial to be performed. Objective - Vital Signs/Intake and Output Vital Signs (last 24 hours): Temp Pulse Resp BP Pulse Ox 99.6 F 87 95 H 148/78 99 08/19/17 04:00 08/19/17 05:00 08/19/17 05:00 08/19/17 05:00 08/19/17 05:00 Intake and Output: 08/19/17 08/19/17 06:59 18:59 Intake Total 500 Output Total 450 Balance 50 - Medications Medications: Current Medications Albuterol/Ipratropium (Duoneb 3 Mg/0.5 Mg (3 Ml) Ud) 3 ml IH [id number] [facility] Last Admin: 08/19/17 07:37 Dose: 3 ml Albuterol/Ipratropium (Duoneb 3 Mg/0.5 Mg (3 Ml) Ud) 3 ml IH [id number] PRN PRN Reason: SOB Budesonide (Pulmicort Respules) 1 mg IH [id number] [facility] Last Admin: 08/19/17 07:35 Dose: 1 mg Calcium Carbonate (Caltrate) 600 mg PO BID [facility] Last Admin: 08/18/17 17:19 Dose: 600 mg Ergocalciferol (Drisdol 50,000 Intl Units Cap) 1 cap PO Q7D [facility] Last Admin: 08/12/17 17:09 Dose: 1 cap Ferrous Sulfate (Feosol Liq) 300 mg PO TID [facility] Last Admin: 08/18/17 17:19 Dose: 300 mg Heparin Sodium (Porcine) (Heparin) 5,000 units SC Q12 [facility] PRN Reason: Protocol Last Admin: 08/18/17 21:56 Dose: 5,000 units Insulin Human Lispro (Humalog Med) 0 units SC Q6H ECSOBAR PRN Reason: Protocol Last Admin: 08/19/17 05:52 Dose: Not Given Levothyroxine Sodium (Synthroid) 50 mcg IVP DAILY [facility] Last Admin: 08/18/17 09:54 Dose: 50 mcg Multivitamins/Vitamin C (Multi-Delyn Liquid) 15 ml PO 0800 [facility] Last Admin: 08/18/17 08:08 Dose: 15 ml Nystatin (Nystop Topical Powder) 1 gm TOP DAILY [facility] Last Admin: 08/18/17 09:51 Dose: 1 pow Pantoprazole Sodium (Protonix Susp) 40 mg PO ACB [facility] Prednisone (Prednisone Tab) 10 mg PO DAILY [facility] Last Admin: 08/18/17 11:30 Dose: 10 mg Zinc Sulfate (Zinc Sulfate 220 Mg Cap) 220 mg PO DAILY [facility] Last Admin: 08/18/17 09:55 Dose: 220 mg - Labs Labs: 08/19/17 06:00 08/19/17 06:00 PT 12.5 SECONDS (9.4-12.5) 08/17/17 05:45 INR 1.09 (0.93-1.08) H 08/17/17 05:45 APTT 27.7 Seconds (25.1-36.5) 08/17/17 05:45 - Constitutional Appears: Well, Non-toxic - Head Exam Head Exam: ATRAUMATIC, NORMOCEPHALIC - Eye Exam Eye Exam: EOMI, Normal appearance - ENT Exam ENT Exam: Mucous Membranes Moist - Neck Exam Additional comments: tracheostomy in place, site appears clean - Respiratory Exam Respiratory Exam: Wheezes (bilaterally) - Cardiovascular Exam Cardiovascular Exam: RRR, +S1, +S2 - GI/Abdominal Exam GI & Abdominal Exam: Distended (mildly). absent: Tenderness, Rebound Additional comments: non-tender, bowel sounds present - Extremities Exam Extremities Exam: Pedal Edema - Neurological Exam Neurological Exam: Alert, Awake, Oriented x3 - Psychiatric Exam Psychiatric exam: Flat Affect, Normal Mood - Skin Skin Exam: Dry, Intact, Normal Color, Warm Assessment and Plan - Assessment and Plan (Free Text) Assessment: 67 year old female who is s/p open tracheostomy secondary to prolonged intubation. Patient is also receiving nutrition via nasogastric tube. Plan: Continue with tracheostomy and local wound care Continue with SBT and enteral feeding per ICU Swallow evaluation pending No further surgical intervention is needed at this time Will follow up if gastrostomy tube is needed Case discussed with attending, Dr. Jain
[2017-08-19 11:43] LABS: ARTERIAL BLOOD GAS HCO3 34.5 mmol/L (21-28); ARTERIAL BLOOD GAS HEMOGLOBIN 8.7 g/dL (11.7-17.4); ARTERIAL BLOOD GAS O2 CAPACITY 12.1 mL/dl (16-24); ARTERIAL BLOOD GAS O2 SAT 99.5 % (95-98); ARTERIAL BLOOD GAS PCO2 52 mm/Hg (35-45); ARTERIAL BLOOD GAS PH 7.43 (7.35-7.45); ARTERIAL BLOOD GAS TCO2 36.1 mmol.L (22-28)
[2017-08-19] MEDS: Ergocalciferol 50,000 Intl Units Cap PO SCH (13:43)
--- NOTE | 2017-08-19 19:56 | CP.PCM.PN ---
Subjective - Date & Time of Evaluation Date of Evaluation: 08/19/17 Time of Evaluation: 19:00 - Subjective Subjective: Infectious Disease Follow Up: August 19, 2017 67 yo female presenting with 3 weeks of RLE ulceration, swelling and leaking from the wound as well as multiple falls in the past 3 weeks. The patient has an extensive medical history of asthma, arthritis, vitamin C deficiency, and possible thyroid disease. Draining RLE ulceration... cellulitis improved/resolved. Multiple chronic medical issues. Still with persistent dry cough. Otherwise stable. Mild erythema and excoriation of the folds in the abdomen and under the breasts. UTI with Klebsiella earlier in hospitalization but had treatment with Cipro that is now completed. Social Issues. The patient had respiratory distress with no improvement from BiPAP. Patient required intubation and ventilation. Transferred to MICU for further care. The patient was started on Zyvox and Aztreonam IV. Patient had a positive C. Diff antigen but negative toxin. Remains intubated today. Appears stable. Chest X-ray not showing new findings. No leukocytosis. Cultures pending... so far negative. Patient unable to be weaned from ventilator. Supportive care. No fevers or leukocytosis. First two Procalcitonin equivocal. The patient had hypothermia ranging from 93.0 F starting from two days ago. Temperature did rise back up to 99.0 F and has been hovering around 97.7 F. Rechecking procalcitonin... now at 1.49. Difficulty from weaning from the ventilator. Patient is opening eyes and tracking now. Creatinine has been improving and is down to 1.2 from 1.3 from 1.5 from 2.0 now. Open tracheostomy done 08/17/2017. Failed ventilator weaning during this hospitalization. Recent repeat C. Diff negative for toxin and antigen. Objective - Vital Signs/Intake and Output Vital Signs (last 24 hours): Temp Pulse Resp BP Pulse Ox 99 F 90 25 H 145/71 99 08/19/17 16:00 08/19/17 18:10 08/19/17 18:10 08/19/17 18:00 08/19/17 18:10 Intake and Output: 08/19/17 08/20/17 18:59 06:59 Intake Total 950 Output Total 1350 Balance -400 - Medications Medications: Current Medications Albuterol/Ipratropium (Duoneb 3 Mg/0.5 Mg (3 Ml) Ud) 3 ml IH [id number] [facility] Last Admin: 08/19/17 13:36 Dose: 3 ml Albuterol/Ipratropium (Duoneb 3 Mg/0.5 Mg (3 Ml) Ud) 3 ml IH [id number] PRN PRN Reason: SOB Budesonide (Pulmicort Respules) 1 mg IH [id number] [facility] Last Admin: 08/19/17 07:35 Dose: 1 mg Calcium Carbonate (Caltrate) 600 mg PO BID [facility] Last Admin: 08/19/17 18:47 Dose: 600 mg Ergocalciferol (Drisdol 50,000 Intl Units Cap) 1 cap PO Q7D [facility] Last Admin: 08/19/17 13:43 Dose: 1 cap Ferrous Sulfate (Feosol Liq) 300 mg PO TID [facility] Last Admin: 08/19/17 18:46 Dose: 300 mg Heparin Sodium (Porcine) (Heparin) 5,000 units SC Q12 [facility] PRN Reason: Protocol Last Admin: 08/19/17 09:14 Dose: 5,000 units Insulin Human Lispro (Humalog Med) 0 units SC Q6H [facility] PRN Reason: Protocol Last Admin: 08/19/17 18:21 Dose: Not Given Levothyroxine Sodium (Synthroid) 50 mcg IVP DAILY [facility] Last Admin: 08/19/17 09:13 Dose: 50 mcg Multivitamins/Vitamin C (Multi-Delyn Liquid) 15 ml PO 0800 [facility] Last Admin: 08/19/17 09:14 Dose: 15 ml Nystatin (Nystop Topical Powder) 1 gm TOP DAILY [facility] Last Admin: 08/19/17 09:14 Dose: 1 pow Pantoprazole Sodium (Protonix Susp) 40 mg PO ACB [facility] Last Admin: 08/19/17 09:13 Dose: 40 mg Prednisone (Prednisone Tab) 10 mg PO DAILY [facility] Last Admin: 08/19/17 09:13 Dose: 10 mg Zinc Sulfate (Zinc Sulfate 220 Mg Cap) 220 mg PO DAILY [facility] Last Admin: 08/19/17 09:14 Dose: 220 mg - Labs Labs: 08/19/17 06:00 08/19/17 06:00 PT 12.5 SECONDS (9.4-12.5) 08/17/17 05:45 INR 1.09 (0.93-1.08) H 08/17/17 05:45 APTT 27.7 Seconds (25.1-36.5) 08/17/17 05:45 - Constitutional Appears: Chronically Ill - Head Exam Additional comments: trach and ventilated. - Eye Exam Eye Exam: EOMI, PERRL Pupil Exam: NORMAL ACCOMODATION, PERRL - ENT Exam ENT Exam: Mucous Membranes Moist, Normal External Ear Exam, TM's Normal Bilaterally - Neck Exam Neck Exam: Full ROM, Normal Inspection - Respiratory Exam Respiratory Exam: Decreased Breath Sounds, NORMAL BREATHING PATTERN. absent: Rales, Rhonchi, Wheezes - Cardiovascular Exam Cardiovascular Exam: REGULAR RHYTHM, RRR, +S1, +S2 - GI/Abdominal Exam GI & Abdominal Exam: Soft, Normal Bowel Sounds. absent: Distended, Tenderness - Extremities Exam Extremities Exam: Full ROM, Normal Inspection - Neurological Exam Neurological Exam: Alert, Awake, CN II-XII Intact, Oriented x3 - Psychiatric Exam Psychiatric exam: Normal Affect, Normal Mood - Skin Skin Exam: Intact, Normal Color Assessment and Plan - Assessment and Plan (Free Text) Assessment: 67 yo female with multiple medical issues with PCN allergy diagnosed as a teenager verified by an Marketing Intelligence Manager. The patient with leukocytosis. Await cultures especially urine cultures. Diabetes and HTN history? Local wound care. Elevated ESR and C-reactive protein. Completed Vancomycin and Aztreonam for antibiotic coverage. UTI with E. coli sensitive to Azactam. Was on Vancomycin for cellulitis IV. For UTI for 5-7 days treatment... completed. Supportive care. Cellulitis appears improved. No new issues. Social issues currently. Homeless at this time. CT scan of chest done. No infiltrates seen. Afebrile the past 24 hours. Mild congestion noted in CT with small pulmonary effusions. No leukocytosis. Slightly elevated procalcitonin (0.66) which is undefined without stronger evidence for pneumonia. When encouraged, she is able to use the incentive spirometer without issues and ambulate with minimal difficulty. Repeat procalcitonin showing 0.71. UTI with Klebsiella. Sensitive to Cipro. Was on Cipro for 5 day course at 500mg PO BID. Completed the antibiotic course. Stable currently. No new issues. Off antibiotics at this time. Multiple social issues. Chronic cough still with periods of hacking. Complained of Vague mild general pains. During this hospitalization, the patient developed respiratory failure and required intubation. Started on Zyvox and Aztreonam IV. Will add Flagyl as well. No leukocytosis. Noted C. Diff with positive antigen but negative toxin. Supportive care. Remains intubated and ventilated. Cultures pending. C. Diff negative to date. No leukocytosis or fever reported. Essentially clear X-ray. Hypothermia episodes most of yesterday to this morning. Noted gram positive cocci in most recent urine culture. Still awaiting identification. Supportive care. Patient did improve mentally. Still difficulty in weaning off respirator. She remains intubated. Failed weaning from vent. Tracheotomy performed 08/17/2017. Patient is awake and alert. Repeat C. Diff testing was negative. Thank you for allowing me to participate in the care of the patient, we will follow with you.
[2017-08-20] MEDS: Albuterol-Ipratrop 3 mg / 0.5 (3 ml) UD IH SCH ×4 (02:57→19:58)
[2017-08-20 07:06] LABS: HEMOGLOBIN 8.6 g/dL (12.0-16.0); MEAN CORPUSCULAR HEMOGLOBIN 26.4 pg (25.0-35.0); MEAN PLATELET VOLUME 9.2 fl (7.0-11.0); RBC 3.26 10^6/uL (3.5-6.1); RED CELL DISTRIBUTION WIDTH 24.8 % (11.5-14.5); WHITE BLOOD COUNT 10.1 10^3/ul (4.5-11.0)
[2017-08-20 07:36] LABS: ALB/GLOB RATIO 0.9 (1.1-1.8); ALT/SGPT 31 U/L (7-56); AST/SGOT 27 U/L (14-36); BLOOD UREA NITROGEN 20 mg/dL (7-21); CALCIUM 7.1 mg/dL (8.4-10.5); GFR AFRICAN-AMERICAN > 60; GFR NON-AFRICAN AMERICAN 50; MAGNESIUM 1.5 mg/dL (1.7-2.2)
[2017-08-20] MEDS: Budesonide 0.5 mg/2 ml Inhal Susp UD IH SCH ×2 (07:36→19:10)
--- NOTE | 2017-08-20 08:02 | CP.CCUPN ---
<Dakota Phipps - Last Filed: 08/20/17 15:39> CCU Subjective - Physician Review Subjective (Free Text): Critical Care Progress note- Dr. Love Patient seen and examined at bedside this AM. No acute events overnight. Nursing notes reviewed. s/p trach, tolerated 4hr on pressure support yesterday. PRVC 35 5 26 350. Will try pressure support this AM. Responds to verbal commands. shakes head yes and no to questions. Complete ROS unobtainable + OOB 2 chair, +Flatus and BM. CCU Objective - Vital Signs / Intake & Output Vital Signs (Last 4 hours): Vital Signs Temp Pulse Resp BP Pulse Ox 08/20/17 06:00 90 26 H 160/76 H 100 08/20/17 05:00 90 26 H 157/87 H 99 08/20/17 04:00 98.9 F 82 26 H 145/72 97 Intake and Output (Last 8hrs): Intake & Output 08/19/17 08/20/17 08/20/17 22:59 06:59 14:59 Intake Total 950 600 Output Total 1350 800 Balance -400 -200 Intake: IV 350 Forearm 350 Oral 600 Tube Feeding 600 Output: Urine 1350 800 Urethral (Christensen) 1350 800 Other: # Bowel Movements 2 - Physical Exam Head: Positive for: Atraumatic, Normocephalic Pupils: Positive for: PERRL Extroacular Muscles: Positive for: EOMI Conjunctiva: Positive for: Normal Mouth: Positive for: Moist Mucous Membranes Pharnyx: Positive for: Normal. Negative for: ERYTHEMA, EXUDATE, TONSILS ENLARGED Nose (External): Positive for: Atraumatic Nose (Internal): Positive for: Normal Inspection Neck: Positive for: Normal Range of Motion Respiratory/Chest: Positive for: Clear to Auscultation, Good Air Exchange, Other (Trach on vent support (35, 5, 26,350)). Negative for: Respiratory Distress, Accessory Muscle Use, Wheezes, Retracting, Rhonchi Cardiovascular: Positive for: Regular Rate and Rhythm, Normal S1, S2. Negative for: Murmurs Abdomen: Positive for: Normal Bowel Sounds, Other (NGT in place- feeds @ 40cc/hr ). Negative for: Tenderness, Distention, Peritoneal Signs Back: Positive for: Normal Inspection. Negative for: CVA Tenderness, Midline Tenderness Upper Extremity: Positive for: Normal Inspection, NORMAL PULSES, Capillary Refill < 2s. Negative for: Cyanosis, Edema, Erythema Lower Extremity: Positive for: NORMAL PULSES, Swelling, Capillary Refill < 2 s. Negative for: Edema, CALF TENDERNESS Neurological: Positive for: GCS=15, Motor Func Grossly Intact, Normal Sensory Function Skin: Positive for: Warm, Dry, Normal Color. Negative for: Rashes Psychiatric: Positive for: Alert, Oriented x 3 - Medications Active Medications: Active Medications Generic Name Dose Route Start Last Admin Trade Name Freq PRN Reason Stop Dose Admin Albuterol/Ipratropium 3 ml 08/15/17 11:36 08/20/17 07:36 Duoneb 3 Mg/0.5 Mg (3 Ml) Ud IH 3 ml [id number] ESCOBAR Administration Albuterol/Ipratropium 3 ml 08/18/17 09:22 Duoneb 3 Mg/0.5 Mg (3 Ml) Ud IH [id number] PRN SOB Budesonide 1 mg 08/18/17 20:00 08/20/17 07:36 Pulmicort Respules IH 1 mg [id number] ESCOBAR Administration Calcium Carbonate 600 mg 08/18/17 10:00 08/19/17 18:47 Caltrate PO 600 mg BID ESCOBAR Administration Ergocalciferol 1 cap 08/12/17 13:30 08/19/17 13:43 Drisdol 50,000 Intl Units Cap PO 1 cap Q7D ESCOBAR Administration Ferrous Sulfate 300 mg 08/16/17 10:00 08/19/17 18:46 Feosol Liq PO 300 mg TID ESCOBAR Administration Heparin Sodium (Porcine) 5,000 units 08/18/17 10:00 08/19/17 21:59 Heparin SC 5,000 units Q12 ESCOBAR Administration Protocol Insulin Human Lispro 0 units 08/14/17 18:00 08/20/17 00:00 Humalog Med SC Not Given Q6H [facility] Protocol Levothyroxine Sodium 50 mcg 08/11/17 10:00 08/19/17 09:13 Synthroid IVP 50 mcg DAILY ESCOBAR Administration Multivitamins/Vitamin C 15 ml 08/17/17 08:00 08/19/17 09:14 Multi-Delyn Liquid PO 15 ml 0800 ESCOBAR Administration Nystatin 1 gm 08/17/17 10:00 08/19/17 09:14 Nystop Topical Powder TOP 1 pow DAILY ESCOBAR Administration Pantoprazole Sodium 40 mg 08/19/17 07:30 08/19/17 09:13 Protonix Susp PO 40 mg ACB ESCOBAR Administration Prednisone 10 mg 08/18/17 10:15 08/19/17 09:13 Prednisone Tab PO 10 mg DAILY ESCOBAR Administration Zinc Sulfate 220 mg 06/15/17 14:30 08/19/17 09:14 Zinc Sulfate 220 Mg Cap PO 220 mg DAILY ESCOBAR Administration - Patient Studies Lab Studies: Lab Studies 08/20/17 08/20/17 08/20/17 Range/Units 06:25 06:25 05:57 WBC 10.1 (4.5-11.0) 10^3/ul RBC 3.26 L (3.5-6.1) 10^6/uL Hgb 8.6 L (12.0-16.0) g/dL Hct 27.7 L (36.0-48.0) % MCV 85.0 (80.0-105.0) fl MCH 26.4 (25.0-35.0) pg MCHC 31.0 (31.0-37.0) g/dl RDW 24.8 H (11.5-14.5) % Plt Count 265 (120.0-450.0) 10^3/uL MPV 9.2 (7.0-11.0) fl pCO2 (35-45) mm/Hg pO2 (80-100) mm/Hg HCO3 (21-28) mmol/L ABG pH (7.35-7.45) ABG Total CO2 (22-28) mmol.L ABG O2 Saturation (95-98) % ABG O2 Content (15-23) ML/dl ABG Base Excess (-2.0-3.0) mmol/L ABG Hemoglobin (11.7-17.4) g/dL ABG Carboxyhemoglobin (0.5-1.5) % POC ABG HHb (Measured) (0-5) % ABG Methemoglobin (0.0-3.0) % ABG O2 Capacity (16-24) mL/dl Hgb O2 Saturation (95.0-98.0) % FiO2 % Sodium 138 (132-148) mmol/L Potassium 3.3 L (3.6-5.0) mmol/L Chloride 99 (98-107) mmol/L Carbon Dioxide 33 (21-33) mmol/L Anion Gap 9 L (10-20) BUN 20 (7-21) mg/dL Creatinine 1.1 (0.7-1.2) mg/dl Est GFR ( Amer) > 60 Est GFR (Non-Af Amer) 50 POC Glucose (mg/dL) 90 (65-110) mg/dL Random Glucose 99 (70-110) mg/dL Calcium 7.1 L (8.4-10.5) mg/dL Magnesium 1.5 L (1.7-2.2) mg/dL Total Bilirubin 0.4 (0.2-1.3) mg/dL AST 27 (14-36) U/L ALT 31 (7-56) U/L Alkaline Phosphatase 86 (38-126) U/L Total Protein 6.2 (5.8-8.3) g/dL Albumin 3.0 (3.0-4.8) g/dL Globulin 3.2 gm/dL Albumin/Globulin Ratio 0.9 L (1.1-1.8) 08/19/17 08/19/17 08/19/17 Range/Units 23:55 18:17 11:49 WBC (4.5-11.0) 10^3/ul RBC (3.5-6.1) 10^6/uL Hgb (12.0-16.0) g/dL Hct (36.0-48.0) % MCV (80.0-105.0) fl MCH (25.0-35.0) pg MCHC (31.0-37.0) g/dl RDW (11.5-14.5) % Plt Count (120.0-450.0) 10^3/uL MPV (7.0-11.0) fl pCO2 (35-45) mm/Hg pO2 (80-100) mm/Hg HCO3 (21-28) mmol/L ABG pH (7.35-7.45) ABG Total CO2 (22-28) mmol.L ABG O2 Saturation (95-98) % ABG O2 Content (15-23) ML/dl ABG Base Excess (-2.0-3.0) mmol/L ABG Hemoglobin (11.7-17.4) g/dL ABG Carboxyhemoglobin (0.5-1.5) % POC ABG HHb (Measured) (0-5) % ABG Methemoglobin (0.0-3.0) % ABG O2 Capacity (16-24) mL/dl Hgb O2 Saturation (95.0-98.0) % FiO2 % Sodium (132-148) mmol/L Potassium (3.6-5.0) mmol/L Chloride (98-107) mmol/L Carbon Dioxide (21-33) mmol/L Anion Gap (10-20) BUN (7-21) mg/dL Creatinine (0.7-1.2) mg/dl Est GFR ( Amer) Est GFR (Non-Af Amer) POC Glucose (mg/dL) 89 109 117 H (65-110) mg/dL Random Glucose (70-110) mg/dL Calcium (8.4-10.5) mg/dL Magnesium (1.7-2.2) mg/dL Total Bilirubin (0.2-1.3) mg/dL AST (14-36) U/L ALT (7-56) U/L Alkaline Phosphatase (38-126) U/L Total Protein (5.8-8.3) g/dL Albumin (3.0-4.8) g/dL Globulin gm/dL Albumin/Globulin Ratio (1.1-1.8) 08/19/17 Range/Units 11:35 WBC (4.5-11.0) 10^3/ul RBC (3.5-6.1) 10^6/uL Hgb (12.0-16.0) g/dL Hct (36.0-48.0) % MCV (80.0-105.0) fl MCH (25.0-35.0) pg MCHC (31.0-37.0) g/dl RDW (11.5-14.5) % Plt Count (120.0-450.0) 10^3/uL MPV (7.0-11.0) fl pCO2 52 H (35-45) mm/Hg pO2 106.0 H (80-100) mm/Hg HCO3 34.5 H (21-28) mmol/L ABG pH 7.43 (7.35-7.45) ABG Total CO2 36.1 H (22-28) mmol.L ABG O2 Saturation 99.5 H (95-98) % ABG O2 Content 12.0 L (15-23) ML/dl ABG Base Excess 9.0 H (-2.0-3.0) mmol/L ABG Hemoglobin 8.7 L (11.7-17.4) g/dL ABG Carboxyhemoglobin 2.0 H (0.5-1.5) % POC ABG HHb (Measured) 0.5 (0-5) % ABG Methemoglobin 1.2 (0.0-3.0) % ABG O2 Capacity 12.1 L (16-24) mL/dl Hgb O2 Saturation 96.3 (95.0-98.0) % FiO2 35.0 % Sodium (132-148) mmol/L Potassium (3.6-5.0) mmol/L Chloride (98-107) mmol/L Carbon Dioxide (21-33) mmol/L Anion Gap (10-20) BUN (7-21) mg/dL Creatinine (0.7-1.2) mg/dl Est GFR ( Amer) Est GFR (Non-Af Amer) POC Glucose (mg/dL) (65-110) mg/dL Random Glucose (70-110) mg/dL Calcium (8.4-10.5) mg/dL Magnesium (1.7-2.2) mg/dL Total Bilirubin (0.2-1.3) mg/dL AST (14-36) U/L ALT (7-56) U/L Alkaline Phosphatase (38-126) U/L Total Protein (5.8-8.3) g/dL Albumin (3.0-4.8) g/dL Globulin gm/dL Albumin/Globulin Ratio (1.1-1.8) Laboratory Results - last 24 hr 08/19/17 08/19/17 08/19/17 11:35 11:49 18:17 WBC RBC Hgb Hct MCV MCH MCHC RDW Plt Count MPV pCO2 52 H pO2 106.0 H HCO3 34.5 H ABG pH 7.43 ABG Total CO2 36.1 H ABG O2 Saturation 99.5 H ABG O2 Content 12.0 L ABG Base Excess 9.0 H ABG Hemoglobin 8.7 L ABG Carboxyhemoglobin 2.0 H POC ABG HHb (Measured) 0.5 ABG Methemoglobin 1.2 ABG O2 Capacity 12.1 L Hgb O2 Saturation 96.3 FiO2 35.0 Sodium Potassium Chloride Carbon Dioxide Anion Gap BUN Creatinine Est GFR ( Amer) Est GFR (Non-Af Amer) POC Glucose (mg/dL) 117 H 109 Random Glucose Calcium Magnesium Total Bilirubin AST ALT Alkaline Phosphatase Total Protein Albumin Globulin Albumin/Globulin Ratio 08/19/17 08/20/17 08/20/17 23:55 05:57 06:25 WBC RBC Hgb Hct MCV MCH MCHC RDW Plt Count MPV pCO2 pO2 HCO3 ABG pH ABG Total CO2 ABG O2 Saturation ABG O2 Content ABG Base Excess ABG Hemoglobin ABG Carboxyhemoglobin POC ABG HHb (Measured) ABG Methemoglobin ABG O2 Capacity Hgb O2 Saturation FiO2 Sodium 138 Potassium 3.3 L Chloride 99 Carbon Dioxide 33 Anion Gap 9 L BUN 20 Creatinine 1.1 Est GFR ( Amer) > 60 Est GFR (Non-Af Amer) 50 POC Glucose (mg/dL) 89 90 Random Glucose 99 Calcium 7.1 L Magnesium 1.5 L Total Bilirubin 0.4 AST 27 ALT 31 Alkaline Phosphatase 86 Total Protein 6.2 Albumin 3.0 Globulin 3.2 Albumin/Globulin Ratio 0.9 L 08/20/17 06:25 WBC 10.1 RBC 3.26 L Hgb 8.6 L Hct 27.7 L MCV 85.0 MCH 26.4 MCHC 31.0 RDW 24.8 H Plt Count 265 MPV 9.2 pCO2 pO2 HCO3 ABG pH ABG Total CO2 ABG O2 Saturation ABG O2 Content ABG Base Excess ABG Hemoglobin ABG Carboxyhemoglobin POC ABG HHb (Measured) ABG Methemoglobin ABG O2 Capacity Hgb O2 Saturation FiO2 Sodium Potassium Chloride Carbon Dioxide Anion Gap BUN Creatinine Est GFR ( Amer) Est GFR (Non-Af Amer) POC Glucose (mg/dL) Random Glucose Calcium Magnesium Total Bilirubin AST ALT Alkaline Phosphatase Total Protein Albumin Globulin Albumin/Globulin Ratio Fingerstick Blood Sugar Results: 90 Assessment/Plan - Assessment and Plan (Free Text) Assessment: 67F w/ ventilator dependent respiratory failure intubated on 08/06/17. s/p Trach on 08/17/17. On Tube feeds started for nutrition. Off sedation and pressors. Currently AAOx3. Currently on pressure support, doing well at this time. Previously tolerated approximatley 4 hours on pressure support yesterday. Currently afebrile, hemodynamically stable, in no acute distress. Plan: Neuro: Pt awake, alert responds to verbal stimuli , follows commands and moves extremities. Cardio: hemodynamically stable keep MAP > 65 Pulm: Trach (35, 5, 26, 350)- on pressure support at this time SaO2 > 92% Weaning protocol Taper steroid Prednisone 5mg po qd; will d/c tomorrow Chest physiotherapy Suction q4h OOB to chair with physical therapy Pulmonary toilet conservative fluid management GI: currently on tube feeds residual < 100 Feeds @ 40cc/hr Protonix 40mg ivp qd Monitor BM Plan for feeding next week w/ specialized tracheostomy cuff Renal/Electrolytes: Good urine output; Cr trending down CATE improving replete electrolytes PRN Hold BILLY-I Endo: maintain euglycemia RISS medium Accuchecks Heme: dvt ppx: Hep subQ ID: C Diff antigen and toxin negative 08/16 urine culture gram + cocci 08/10 urine culture +Klebsiella pna 07/05 C. Diff antigen positive and toxin negative 08/08 blood culture final negative x 2 08/10 and 07/05/[address] Montero discussed with Dr. Love Critical Care attending Dakota Phipps <Bassem Love - Last Filed: 08/20/17 16:59> CCU Objective - Vital Signs / Intake & Output Vital Signs (Last 4 hours): Vital Signs Temp Pulse Resp BP Pulse Ox 08/20/17 16:40 93 H 95 08/20/17 16:30 98 H 100 08/20/17 16:20 106 H 08/20/17 16:10 97 H 99 08/20/17 16:02 91 H 135/83 93 L 08/20/17 16:00 99 F 96 H 25 H 135/83 95 08/20/17 15:50 96 H 08/20/17 15:49 91 H 08/20/17 15:48 97 H 08/20/17 15:40 94 H 99 08/20/17 15:30 93 H 99 08/20/17 15:20 91 H 99 08/20/17 15:10 98 H 99 08/20/17 15:00 90 142/77 98 08/20/17 14:50 86 94 L 08/20/17 14:40 92 H 98 08/20/17 14:30 96 H 98 08/20/17 14:20 86 98 08/20/17 14:10 86 96 08/20/17 14:00 86 130/63 94 L 08/20/17 13:50 98 H 99 08/20/17 13:40 100 H 100 08/20/17 13:30 94 H 99 08/20/17 13:20 94 H 99 08/20/17 13:10 101 H 100 08/20/17 13:01 94 H 137/66 97 08/20/17 13:00 92 H 98 Intake and Output (Last 8hrs): Intake & Output 08/20/17 08/20/17 08/20/17 06:59 14:59 22:59 Intake Total 600 860 Output Total 800 700 Balance -200 160 Intake: Tube Feeding 600 860 Output: Urine 800 700 Urethral (Christensen) 800 700 Other: # Bowel Movements 2 - Medications Active Medications: Active Medications Generic Name Dose Route Start Last Admin Trade Name Freq PRN Reason Stop Dose Admin Acetaminophen 650 mg 08/20/17 09:27 08/20/17 09:49 Tylenol 325mg Tab PO 650 mg Q6H PRN Administration Pain, moderate (4-7) Albuterol/Ipratropium 3 ml 08/15/17 11:36 08/20/17 13:45 Duoneb 3 Mg/0.5 Mg (3 Ml) Ud IH 3 ml [id number] ESCOBAR Administration Albuterol/Ipratropium 3 ml 08/18/17 09:22 Duoneb 3 Mg/0.5 Mg (3 Ml) Ud IH [id number] PRN SOB Budesonide 1 mg 08/18/17 20:00 08/20/17 07:36 Pulmicort Respules IH 1 mg [id number] ESCOBAR Administration Calcium Carbonate 600 mg 08/18/17 10:00 08/20/17 09:30 Caltrate PO 600 mg BID ESCOBAR Administration Ergocalciferol 1 cap 08/12/17 13:30 08/19/17 13:43 Drisdol 50,000 Intl Units Cap PO 1 cap Q7D ESCOBAR Administration Ferrous Sulfate 300 mg 08/16/17 10:00 08/20/17 13:36 Feosol Liq PO 300 mg TID ESCOBAR Administration Furosemide 20 mg 08/20/17 16:56 Lasix IVP 08/20/17 16:57 ONCE ONE Heparin Sodium (Porcine) 5,000 units 08/18/17 10:00 08/20/17 09:31 Heparin SC 5,000 units Q12 ESCOBAR Administration Protocol Potassium Chloride 20 meq in 100 mls @ 50 mls/hr 08/20/17 17:00 Potassium Chloride 20 Meq/100 Ml IVPB 08/20/17 20:59 Q2H ESCOBAR Insulin Human Lispro 0 units 08/14/17 18:00 08/20/17 11:59 Humalog Med SC Not Given Q6H [facility] Protocol Levothyroxine Sodium 50 mcg 08/11/17 10:00 08/20/17 09:32 Synthroid IVP 50 mcg DAILY ESCOBAR Administration Multivitamins/Vitamin C 15 ml 08/17/17 08:00 08/20/17 09:31 Multi-Delyn Liquid PO 15 ml 0800 ESCOBAR Administration Nystatin 1 gm 08/17/17 10:00 08/20/17 10:00 Nystop Topical Powder TOP 1 pow DAILY ESCOBAR Administration Pantoprazole Sodium 40 mg 08/19/17 07:30 08/20/17 09:32 Protonix Susp PO 40 mg ACB ESCOBAR Administration Prednisone 5 mg 08/20/17 10:55 Prednisone Tab PO DAILY ESCOBAR Zinc Sulfate 220 mg 06/15/17 14:30 08/20/17 09:32 Zinc Sulfate 220 Mg Cap PO 220 mg DAILY ESCOBAR Administration - Patient Studies Lab Studies: Lab Studies 08/20/17 08/20/17 08/20/17 Range/Units 11:51 06:25 06:25 WBC 10.1 (4.5-11.0) 10^3/ul RBC 3.26 L (3.5-6.1) 10^6/uL Hgb 8.6 L (12.0-16.0) g/dL Hct 27.7 L (36.0-48.0) % MCV 85.0 (80.0-105.0) fl MCH 26.4 (25.0-35.0) pg MCHC 31.0 (31.0-37.0) g/dl RDW 24.8 H (11.5-14.5) % Plt Count 265 (120.0-450.0) 10^3/uL MPV 9.2 (7.0-11.0) fl Sodium 138 (132-148) mmol/L Potassium 3.3 L (3.6-5.0) mmol/L Chloride 99 (98-107) mmol/L Carbon Dioxide 33 (21-33) mmol/L Anion Gap 9 L (10-20) BUN 20 (7-21) mg/dL Creatinine 1.1 (0.7-1.2) mg/dl Est GFR ( Amer) > 60 Est GFR (Non-Af Amer) 50 POC Glucose (mg/dL) 114 H (65-110) mg/dL Random Glucose 99 (70-110) mg/dL Calcium 7.1 L (8.4-10.5) mg/dL Magnesium 1.5 L (1.7-2.2) mg/dL Total Bilirubin 0.4 (0.2-1.3) mg/dL AST 27 (14-36) U/L ALT 31 (7-56) U/L Alkaline Phosphatase 86 (38-126) U/L Total Protein 6.2 (5.8-8.3) g/dL Albumin 3.0 (3.0-4.8) g/dL Globulin 3.2 gm/dL Albumin/Globulin Ratio 0.9 L (1.1-1.8) 08/20/17 08/19/17 08/19/17 Range/Units 05:57 23:55 18:17 WBC (4.5-11.0) 10^3/ul RBC (3.5-6.1) 10^6/uL Hgb (12.0-16.0) g/dL Hct (36.0-48.0) % MCV (80.0-105.0) fl MCH (25.0-35.0) pg MCHC (31.0-37.0) g/dl RDW (11.5-14.5) % Plt Count (120.0-450.0) 10^3/uL MPV (7.0-11.0) fl Sodium (132-148) mmol/L Potassium (3.6-5.0) mmol/L Chloride (98-107) mmol/L Carbon Dioxide (21-33) mmol/L Anion Gap (10-20) BUN (7-21) mg/dL Creatinine (0.7-1.2) mg/dl Est GFR ( Amer) Est GFR (Non-Af Amer) POC Glucose (mg/dL) 90 89 109 (65-110) mg/dL Random Glucose (70-110) mg/dL Calcium (8.4-10.5) mg/dL Magnesium (1.7-2.2) mg/dL Total Bilirubin (0.2-1.3) mg/dL AST (14-36) U/L ALT (7-56) U/L Alkaline Phosphatase (38-126) U/L Total Protein (5.8-8.3) g/dL Albumin (3.0-4.8) g/dL Globulin gm/dL Albumin/Globulin Ratio (1.1-1.8) Laboratory Results - last 24 hr 08/19/17 08/19/17 08/20/17 18:17 23:55 05:57 WBC RBC Hgb Hct MCV MCH MCHC RDW Plt Count MPV Sodium Potassium Chloride Carbon Dioxide Anion Gap BUN Creatinine Est GFR ( Amer) Est GFR (Non-Af Amer) POC Glucose (mg/dL) 109 89 90 Random Glucose Calcium Magnesium Total Bilirubin AST ALT Alkaline Phosphatase Total Protein Albumin Globulin Albumin/Globulin Ratio 08/20/17 08/20/17 08/20/17 06:25 06:25 11:51 WBC 10.1 RBC 3.26 L Hgb 8.6 L Hct 27.7 L MCV 85.0 MCH 26.4 MCHC 31.0 RDW 24.8 H Plt Count 265 MPV 9.2 Sodium 138 Potassium 3.3 L Chloride 99 Carbon Dioxide 33 Anion Gap 9 L BUN 20 Creatinine 1.1 Est GFR ( Amer) > 60 Est GFR (Non-Af Amer) 50 POC Glucose (mg/dL) 114 H Random Glucose 99 Calcium 7.1 L Magnesium 1.5 L Total Bilirubin 0.4 AST 27 ALT 31 Alkaline Phosphatase 86 Total Protein 6.2 Albumin 3.0 Globulin 3.2 Albumin/Globulin Ratio 0.9 L Attending/Attestation - Attestation I have personally seen and examined this patient.: Yes I have fully participated in the care of the patient.: Yes I have reviewed all pertinent clinical information: Yes Notes (Text): 08/20/17 16:57 67 yo with VDRF due to HCRF. OOB to chair, bronchodilators, PT, tracheal suction , bronchodilators, steroid taper, conservative fluid and 02 management. CATE is improving, good uo/p. tolerates enteral feeds. dvt/gi prophylaxis ccm time 40 min
[2017-08-20] MEDS ORDERED: Potassium Chloride 20 mEq ER Tab PO ONE (09:09)
[2017-08-20] MEDS: Multi Vitamins 15 mL UD Oral Solution PO SCH (09:31)
[2017-08-20] MEDS: Ferrous Sulfate 300 mg/5 mL Liq UD PO SCH ×3 (09:31→17:05)
[2017-08-20] MEDS: Pantoprazole 40 mg Susp UD PO SCH (09:32)
[2017-08-20] MEDS: Levothyroxine 100 mcg (0.1 mg) Inj IVP SCH (09:32)
[2017-08-20] MEDS: Nystatin 100,000 Units/gm Topical Pow(15 gm) TOP SCH (10:00)
[2017-08-20] MEDS: Insulin Lispro (humaLOG) MEDIUM Coverage SC SCH ×3 (11:59→17:21)
--- NOTE | 2017-08-20 14:27 | CP.PCM.PN ---
<Shan Zepeda - Last Filed: 08/20/17 14:42> Subjective - Date & Time of Evaluation Date of Evaluation: 08/20/17 Time of Evaluation: 06:00 - Subjective Subjective: Patient seen and evaluated bedside. No acute issues overnight. Patient awake and alert responding to some questions. PAtient denies any chest pain, shortness of breath, nausea, vomiting. Objective - Vital Signs/Intake and Output Vital Signs (last 24 hours): Temp Pulse Resp BP Pulse Ox 97.8 F 97 H 35 H 171/76 H 98 08/20/17 08:00 08/20/17 12:30 08/20/17 06:10 08/20/17 12:01 08/20/17 12:30 Intake and Output: 08/20/17 08/20/17 06:59 18:59 Intake Total 600 Output Total 800 Balance -200 - Medications Medications: Current Medications Acetaminophen (Tylenol 325mg Tab) 650 mg PO Q6H PRN PRN Reason: Pain, moderate (4-7) Last Admin: 08/20/17 09:49 Dose: 650 mg Albuterol/Ipratropium (Duoneb 3 Mg/0.5 Mg (3 Ml) Ud) 3 ml IH [id number] [facility] Last Admin: 08/20/17 13:45 Dose: 3 ml Albuterol/Ipratropium (Duoneb 3 Mg/0.5 Mg (3 Ml) Ud) 3 ml IH [id number] PRN PRN Reason: SOB Budesonide (Pulmicort Respules) 1 mg IH [id number] [facility] Last Admin: 08/20/17 07:36 Dose: 1 mg Calcium Carbonate (Caltrate) 600 mg PO BID [facility] Last Admin: 08/20/17 09:30 Dose: 600 mg Ergocalciferol (Drisdol 50,000 Intl Units Cap) 1 cap PO Q7D [facility] Last Admin: 08/19/17 13:43 Dose: 1 cap Ferrous Sulfate (Feosol Liq) 300 mg PO TID [facility] Last Admin: 08/20/17 13:36 Dose: 300 mg Heparin Sodium (Porcine) (Heparin) 5,000 units SC Q12 [facility] PRN Reason: Protocol Last Admin: 08/20/17 09:31 Dose: 5,000 units Insulin Human Lispro (Humalog Med) 0 units SC Q6H [facility] PRN Reason: Protocol Last Admin: 08/20/17 11:59 Dose: Not Given Levothyroxine Sodium (Synthroid) 50 mcg IVP DAILY [facility] Last Admin: 08/20/17 09:32 Dose: 50 mcg Multivitamins/Vitamin C (Multi-Delyn Liquid) 15 ml PO 0800 [facility] Last Admin: 08/20/17 09:31 Dose: 15 ml Nystatin (Nystop Topical Powder) 1 gm TOP DAILY [facility] Last Admin: 08/20/17 10:00 Dose: 1 pow Pantoprazole Sodium (Protonix Susp) 40 mg PO ACB [facility] Last Admin: 08/20/17 09:32 Dose: 40 mg Prednisone (Prednisone Tab) 5 mg PO DAILY [facility] Zinc Sulfate (Zinc Sulfate 220 Mg Cap) 220 mg PO DAILY [facility] Last Admin: 08/20/17 09:32 Dose: 220 mg - Labs Labs: 08/20/17 06:25 08/20/17 06:25 PT 12.5 SECONDS (9.4-12.5) 08/17/17 05:45 INR 1.09 (0.93-1.08) H 08/17/17 05:45 APTT 27.7 Seconds (25.1-36.5) 08/17/17 05:45 - Constitutional Appears: Non-toxic, No Acute Distress - Head Exam Head Exam: NORMAL INSPECTION, NORMOCEPHALIC - Eye Exam Eye Exam: Normal appearance - ENT Exam ENT Exam: Mucous Membranes Moist - Neck Exam Neck Exam: absent: Lymphadenopathy, Tenderness - Respiratory Exam Respiratory Exam: Clear to Ausculation Bilateral, NORMAL BREATHING PATTERN - Cardiovascular Exam Cardiovascular Exam: REGULAR RHYTHM - GI/Abdominal Exam GI & Abdominal Exam: Distended. absent: Tenderness Assessment and Plan - Assessment and Plan (Free Text) Assessment: Patient is a 67 year old female with history of asthma, arthritis, anemia, and obesity who was originally admitted for right lower extremity cellulitis and UTI. During her hospitalization course she developed acute hypercapneic respiratory failure secondary to asthma/RA airway disease/kyphoscoliosis in setting of cdiff colitis. She is monitored in the ICU. Currently afebrile, hemodynamically stable, POD#3 trach on NGT feeds. Plan: 1. Hypercapnic Respiratory Failure - patient AAOx3 - patient is status post trach day #3 - continue to monitor respiratory status - continue with duonebs, pulmicort - procal 1.49 -Weaning protocol -Prednisone 5mg po qd; will d/c tomorrow -Chest physiotherapy -Suction q4h -OOB to chair with physical therapy -Pulmonary toilet -conservative fluid management 2. chronic Abdominal Distension - CT Abdomen Pelvis with PO and IV Contrast (07/18):Interstitial and airspace disease in the lung bases; mild cardiomegaly and atherosclerotic disease; fatty liver; gallstones; mild ileus, no obstruction; constipation with fecal impaction - abdominal flat plate-No acute changes or findings - patient is having BM - will continue to monitor - Plan for feeding next week w/ specialized tracheostomy cuff 3. Normocytic anemia - Hemoglobins reviewed, trended, will transfuse if Hbg < 7.0 - Monitor daily 4. Cdiff colitis-resolved - completed course of flagyl 5. Acute Kidney injury - improving - Monitor and maintain MAP > 65 - Monitor Input/Output, daily weights and renal function with basic metabolic panel - supplement electrolytes as needed - weekly vitamin D supplements - hold BILLY/ARB 6. HTN - BP reviewed, trended, and appreciated - hold zestril due to CATE 7. Hypokalemia - continue to monitor replete as needed 8.Hypocalcemia - calcium carbonate 600mg BID - continue to monitor replete as needed 9. Hypomagnesia - 1.5 form 1.4 yesterday - repleted - continue to monitor, correct as needed 10. h/o hypothyriodism - continue synthroid 50mcg daily Prophylaxis: - GI ppx Protonix - DVT ppx: Heparin <Juan Rodriguez - Last Filed: 08/20/17 16:05> Objective - Vital Signs/Intake and Output Vital Signs (last 24 hours): Temp Pulse Resp BP Pulse Ox 99 F 93 H 16 142/77 99 08/20/17 12:00 08/20/17 15:30 08/20/17 12:00 08/20/17 15:00 08/20/17 15:30 Intake and Output: 08/20/17 08/20/17 06:59 18:59 Intake Total 600 Output Total 800 Balance -200 - Medications Medications: Current Medications Acetaminophen (Tylenol 325mg Tab) 650 mg PO Q6H PRN PRN Reason: Pain, moderate (4-7) Last Admin: 08/20/17 09:49 Dose: 650 mg Albuterol/Ipratropium (Duoneb 3 Mg/0.5 Mg (3 Ml) Ud) 3 ml IH [id number] [facility] Last Admin: 08/20/17 13:45 Dose: 3 ml Albuterol/Ipratropium (Duoneb 3 Mg/0.5 Mg (3 Ml) Ud) 3 ml IH [id number] PRN PRN Reason: SOB Budesonide (Pulmicort Respules) 1 mg IH [id number] [facility] Last Admin: 08/20/17 07:36 Dose: 1 mg Calcium Carbonate (Caltrate) 600 mg PO BID [facility] Last Admin: 08/20/17 09:30 Dose: 600 mg Ergocalciferol (Drisdol 50,000 Intl Units Cap) 1 cap PO Q7D [facility] Last Admin: 08/19/17 13:43 Dose: 1 cap Ferrous Sulfate (Feosol Liq) 300 mg PO TID [facility] Last Admin: 08/20/17 13:36 Dose: 300 mg Heparin Sodium (Porcine) (Heparin) 5,000 units SC Q12 [facility] PRN Reason: Protocol Last Admin: 08/20/17 09:31 Dose: 5,000 units Insulin Human Lispro (Humalog Med) 0 units SC Q6H [facility] PRN Reason: Protocol Last Admin: 08/20/17 11:59 Dose: Not Given Levothyroxine Sodium (Synthroid) 50 mcg IVP DAILY [facility] Last Admin: 08/20/17 09:32 Dose: 50 mcg Multivitamins/Vitamin C (Multi-Delyn Liquid) 15 ml PO 0800 [facility] Last Admin: 08/20/17 09:31 Dose: 15 ml Nystatin (Nystop Topical Powder) 1 gm TOP DAILY [facility] Last Admin: 08/20/17 10:00 Dose: 1 pow Pantoprazole Sodium (Protonix Susp) 40 mg PO ACB [facility] Last Admin: 08/20/17 09:32 Dose: 40 mg Prednisone (Prednisone Tab) 5 mg PO DAILY [facility] Zinc Sulfate (Zinc Sulfate 220 Mg Cap) 220 mg PO DAILY [facility] Last Admin: 08/20/17 09:32 Dose: 220 mg - Labs Labs: 08/20/17 06:25 08/20/17 06:25 PT 12.5 SECONDS (9.4-12.5) 08/17/17 05:45 INR 1.09 (0.93-1.08) H 08/17/17 05:45 APTT 27.7 Seconds (25.1-36.5) 08/17/17 05:45 Attending/Attestation - Attestation I have personally seen and examined this patient.: Yes I have fully participated in the care of the patient.: Yes I have reviewed all pertinent clinical information, including history, physical exam and plan: Yes Notes (Text): 08/20/17 16:04 67 year old female who was intubated in ICU secondary to hypercapneic respiratory failure secondary to COPD exacerbation. She was seen by surgery and is now s/p tracheostomy POD #3. She is on duonebs, pulmicort and tapering steroids as per graphic art technician. Speech and swallow follow up note reviewed and appreciated. Patient is s/p antibiotics for pneumonia. Repeat CDif study was negative. Renal function has improved. Will replete and repeat lytes. Juan Rodriguez MD Hospitalist.
--- NOTE | 2017-08-20 17:13 | CP.PCM.PN ---
Subjective - Date & Time of Evaluation Date of Evaluation: 08/20/17 Time of Evaluation: 15:00 - Subjective Subjective: Infectious Disease Follow Up: August 20, 2017 33 yo female with a past medical history of asthma only presented with 2 day history of abdominal pain that progressively worsened. The pain concentrates in the RLQ and is accompanied by NBNB vomiting. She was found on imaging studies to have a marked enlarged appendix. Taken to OR for laproscopic appendectomy. The patient developed fevers up to 100.4 F in the first 24 hours after surgery. The patient states that she feels better compared to admission. Objective - Vital Signs/Intake and Output Vital Signs (last 24 hours): Temp Pulse Resp BP Pulse Ox 99 F 93 H 25 H 169/85 H 95 08/20/17 16:00 08/20/17 16:40 08/20/17 16:00 08/20/17 17:05 08/20/17 16:40 Intake and Output: 08/20/17 08/20/17 06:59 18:59 Intake Total 600 860 Output Total 800 700 Balance -200 160 - Medications Medications: Current Medications Acetaminophen (Tylenol 325mg Tab) 650 mg PO Q6H PRN PRN Reason: Pain, moderate (4-7) Last Admin: 08/20/17 09:49 Dose: 650 mg Albuterol/Ipratropium (Duoneb 3 Mg/0.5 Mg (3 Ml) Ud) 3 ml IH [id number] [facility] Last Admin: 08/20/17 13:45 Dose: 3 ml Albuterol/Ipratropium (Duoneb 3 Mg/0.5 Mg (3 Ml) Ud) 3 ml IH [id number] PRN PRN Reason: SOB Budesonide (Pulmicort Respules) 1 mg IH [id number] [facility] Last Admin: 08/20/17 07:36 Dose: 1 mg Calcium Carbonate (Caltrate) 600 mg PO BID [facility] Last Admin: 08/20/17 17:05 Dose: 600 mg Ergocalciferol (Drisdol 50,000 Intl Units Cap) 1 cap PO Q7D [facility] Last Admin: 08/19/17 13:43 Dose: 1 cap Ferrous Sulfate (Feosol Liq) 300 mg PO TID [facility] Last Admin: 08/20/17 17:05 Dose: 300 mg Heparin Sodium (Porcine) (Heparin) 5,000 units SC Q12 [facility] PRN Reason: Protocol Last Admin: 08/20/17 09:31 Dose: 5,000 units Potassium Chloride (Potassium Chloride 20 Meq/100 Ml) 20 meq in 100 mls @ 50 mls/hr IVPB Q2H [facility] Stop: 08/20/17 20:59 Last Admin: 08/20/17 17:05 Dose: 50 mls/hr Insulin Human Lispro (Humalog Med) 0 units SC Q6H [facility] PRN Reason: Protocol Last Admin: 08/20/17 11:59 Dose: Not Given Levothyroxine Sodium (Synthroid) 50 mcg IVP DAILY [facility] Last Admin: 08/20/17 09:32 Dose: 50 mcg Multivitamins/Vitamin C (Multi-Delyn Liquid) 15 ml PO 0800 [facility] Last Admin: 08/20/17 09:31 Dose: 15 ml Nystatin (Nystop Topical Powder) 1 gm TOP DAILY [facility] Last Admin: 08/20/17 10:00 Dose: 1 pow Pantoprazole Sodium (Protonix Susp) 40 mg PO ACB [facility] Last Admin: 08/20/17 09:32 Dose: 40 mg Prednisone (Prednisone Tab) 5 mg PO DAILY [facility] Zinc Sulfate (Zinc Sulfate 220 Mg Cap) 220 mg PO DAILY [facility] Last Admin: 08/20/17 09:32 Dose: 220 mg - Labs Labs: 08/20/17 06:25 08/20/17 06:25 PT 12.5 SECONDS (9.4-12.5) 08/17/17 05:45 INR 1.09 (0.93-1.08) H 08/17/17 05:45 APTT 27.7 Seconds (25.1-36.5) 08/17/17 05:45 - Constitutional Appears: Non-toxic, No Acute Distress - Head Exam Head Exam: ATRAUMATIC, NORMOCEPHALIC - Eye Exam Eye Exam: EOMI, PERRL Pupil Exam: NORMAL ACCOMODATION, PERRL - ENT Exam ENT Exam: Mucous Membranes Moist, Normal External Ear Exam, TM's Normal Bilaterally - Neck Exam Neck Exam: Full ROM, Normal Inspection - Respiratory Exam Respiratory Exam: Clear to Ausculation Bilateral, NORMAL BREATHING PATTERN. absent: Rales, Rhonchi, Wheezes - Cardiovascular Exam Cardiovascular Exam: REGULAR RHYTHM, RRR, +S1, +S2 - GI/Abdominal Exam GI & Abdominal Exam: Distended, Soft Additional comments: s/p laproscopic appendectomy ... mild diffuse tenderness. - Extremities Exam Extremities Exam: Full ROM, Normal Inspection - Neurological Exam Neurological Exam: Alert, Awake, CN II-XII Intact, Oriented x3 - Psychiatric Exam Psychiatric exam: Normal Affect, Normal Mood - Skin Skin Exam: Normal Color Assessment and Plan - Assessment and Plan (Free Text) Assessment: 33 yo female with diagnosis of acute appendicitis requiring laproscopic appendectomy. Currently on Zosyn for antibiotic treatment. No description of a ruptured appendicitis in notes. Patient with low grade fevers. The patient may have fevers up to three day post surgery. The patient does not need the Flagyl unless C. Diff is a major concern. Esquivel cultures were sent. Negative to date. Continue current care. Tolerating liquid diet. Cordell drain still in place. Thank you for allowing me to participate in the care of the patient, we will follow with you.
--- NOTE | 2017-08-20 17:30 | CP.PCM.PN ---
Subjective - Date & Time of Evaluation Date of Evaluation: 08/20/17 Time of Evaluation: 15:30 - Subjective Subjective: Infectious Disease Follow Up: August 20, 2017 67 yo female presenting with 3 weeks of RLE ulceration, swelling and leaking from the wound as well as multiple falls in the past 3 weeks. The patient has an extensive medical history of asthma, arthritis, vitamin C deficiency, and possible thyroid disease. Draining RLE ulceration... cellulitis improved/resolved. Multiple chronic medical issues. Still with persistent dry cough. Otherwise stable. Mild erythema and excoriation of the folds in the abdomen and under the breasts. UTI with Klebsiella earlier in hospitalization but had treatment with Cipro that is now completed. Social Issues. The patient had respiratory distress with no improvement from BiPAP. Patient required intubation and ventilation. Transferred to MICU for further care. The patient was started on Zyvox and Aztreonam IV. Patient had a positive C. Diff antigen but negative toxin. Remains ventilated today. Appears stable. Chest X-ray not showing new findings. No leukocytosis. Cultures pending... so far negative. Patient unable to be weaned from ventilator. Supportive care. No fevers or leukocytosis. First two Procalcitonin equivocal. The patient had hypothermia ranging from 93.0 F starting from two days ago. Temperature did rise back up to 99.0 F and has been hovering around 97.7 F. Rechecking procalcitonin... now at 1.49. Difficulty from weaning from the ventilator. Patient is opening eyes and tracking now. Creatinine has been improving and is down to 1.1 from 1.2 from 1.3 from 1.5 from 2.0 now. Open tracheostomy done 08/17/2017. Failed ventilator weaning during this hospitalization. Recent repeat C. Diff negative for toxin and antigen. Patient has completed antibiotic regimens and is off antibiotics at this time. Objective - Vital Signs/Intake and Output Vital Signs (last 24 hours): Temp Pulse Resp BP Pulse Ox 99 F 93 H 25 H 169/85 H 95 08/20/17 16:00 08/20/17 16:40 08/20/17 16:00 08/20/17 17:05 08/20/17 16:40 Intake and Output: 08/20/17 08/20/17 06:59 18:59 Intake Total 600 860 Output Total 800 700 Balance -200 160 - Medications Medications: Current Medications Acetaminophen (Tylenol 325mg Tab) 650 mg PO Q6H PRN PRN Reason: Pain, moderate (4-7) Last Admin: 08/20/17 09:49 Dose: 650 mg Albuterol/Ipratropium (Duoneb 3 Mg/0.5 Mg (3 Ml) Ud) 3 ml IH [id number] [facility] Last Admin: 08/20/17 13:45 Dose: 3 ml Albuterol/Ipratropium (Duoneb 3 Mg/0.5 Mg (3 Ml) Ud) 3 ml IH [id number] PRN PRN Reason: SOB Budesonide (Pulmicort Respules) 1 mg IH [id number] [facility] Last Admin: 08/20/17 07:36 Dose: 1 mg Calcium Carbonate (Caltrate) 600 mg PO BID [facility] Last Admin: 08/20/17 17:05 Dose: 600 mg Ergocalciferol (Drisdol 50,000 Intl Units Cap) 1 cap PO Q7D [facility] Last Admin: 08/19/17 13:43 Dose: 1 cap Ferrous Sulfate (Feosol Liq) 300 mg PO TID [facility] Last Admin: 08/20/17 17:05 Dose: 300 mg Heparin Sodium (Porcine) (Heparin) 5,000 units SC Q12 [facility] PRN Reason: Protocol Last Admin: 08/20/17 09:31 Dose: 5,000 units Potassium Chloride (Potassium Chloride 20 Meq/100 Ml) 20 meq in 100 mls @ 50 mls/hr IVPB Q2H [facility] Stop: 08/20/17 20:59 Last Admin: 08/20/17 17:05 Dose: 50 mls/hr Insulin Human Lispro (Humalog Med) 0 units SC Q6H [facility] PRN Reason: Protocol Last Admin: 08/20/17 11:59 Dose: Not Given Levothyroxine Sodium (Synthroid) 50 mcg IVP DAILY [facility] Last Admin: 08/20/17 09:32 Dose: 50 mcg Multivitamins/Vitamin C (Multi-Delyn Liquid) 15 ml PO 0800 [facility] Last Admin: 08/20/17 09:31 Dose: 15 ml Nystatin (Nystop Topical Powder) 1 gm TOP DAILY [facility] Last Admin: 08/20/17 10:00 Dose: 1 pow Pantoprazole Sodium (Protonix Susp) 40 mg PO ACB [facility] Last Admin: 08/20/17 09:32 Dose: 40 mg Prednisone (Prednisone Tab) 5 mg PO DAILY [facility] Zinc Sulfate (Zinc Sulfate 220 Mg Cap) 220 mg PO DAILY [facility] Last Admin: 08/20/17 09:32 Dose: 220 mg - Labs Labs: 08/20/17 06:25 08/20/17 06:25 PT 12.5 SECONDS (9.4-12.5) 08/17/17 05:45 INR 1.09 (0.93-1.08) H 08/17/17 05:45 APTT 27.7 Seconds (25.1-36.5) 08/17/17 05:45 - Constitutional Appears: Non-toxic, No Acute Distress, Chronically Ill - Head Exam Additional comments: trach and ventilated - Eye Exam Eye Exam: EOMI, PERRL Pupil Exam: NORMAL ACCOMODATION, PERRL - ENT Exam ENT Exam: Mucous Membranes Moist, Normal External Ear Exam, TM's Normal Bilaterally - Neck Exam Neck Exam: Full ROM, Normal Inspection - Respiratory Exam Respiratory Exam: Decreased Breath Sounds, NORMAL BREATHING PATTERN. absent: Rales, Rhonchi, Wheezes - Cardiovascular Exam Cardiovascular Exam: REGULAR RHYTHM, RRR, +S1, +S2 - GI/Abdominal Exam GI & Abdominal Exam: Soft, Normal Bowel Sounds. absent: Distended, Tenderness - Extremities Exam Extremities Exam: Full ROM, Normal Inspection - Neurological Exam Neurological Exam: Alert, Awake, CN II-XII Intact, Oriented x3 - Psychiatric Exam Psychiatric exam: Normal Affect, Normal Mood - Skin Skin Exam: Intact, Normal Color Assessment and Plan - Assessment and Plan (Free Text) Assessment: 67 yo female with multiple medical issues with PCN allergy diagnosed as a teenager verified by an Environmental Tech. The patient with leukocytosis. Await cultures especially urine cultures. Diabetes and HTN history? Local wound care. Elevated ESR and C-reactive protein. Completed Vancomycin and Aztreonam for antibiotic coverage. UTI with E. coli sensitive to Azactam. Was on Vancomycin for cellulitis IV. For UTI for 5-7 days treatment... completed. Supportive care. Cellulitis appears improved. No new issues. Social issues currently. Homeless at this time. CT scan of chest done. No infiltrates seen. Afebrile the past 24 hours. Mild congestion noted in CT with small pulmonary effusions. No leukocytosis. Slightly elevated procalcitonin (0.66) which is undefined without stronger evidence for pneumonia. When encouraged, she is able to use the incentive spirometer without issues and ambulate with minimal difficulty. Repeat procalcitonin showing 0.71. UTI with Klebsiella. Sensitive to Cipro. Was on Cipro for 5 day course at 500mg PO BID. Completed the antibiotic course. Stable currently. No new issues. Off antibiotics at this time. Multiple social issues. Chronic cough still with periods of hacking. Complained of Vague mild general pains. During this hospitalization, the patient developed respiratory failure and required intubation. Started on Zyvox and Aztreonam IV. Will add Flagyl as well. No leukocytosis. Noted C. Diff with positive antigen but negative toxin. Supportive care. Remains intubated and ventilated. Cultures pending. C. Diff negative to date. No leukocytosis or fever reported. Essentially clear X-ray. Hypothermia episodes most of yesterday to this morning. Antibiotic courses completed. Noted gram positive cocci in most recent urine culture. Still awaiting identification. Supportive care. Patient did improve mentally. Still difficulty in weaning off respirator. She remains intubated. Failed weaning from vent. Tracheotomy performed 08/17/2017. Patient is awake and alert. Currently off antibiotics. Repeat C. Diff testing was negative. Thank you for allowing me to participate in the care of the patient, we will follow with you.
[2017-08-20] MEDS: Albuterol-Ipratrop 3 mg / 0.5 (3 ml) UD IH PRN (19:10)
[2017-08-20 20:34] LABS: ARTERIAL BLOOD GAS HCO3 34.4 mmol/L (21-28); ARTERIAL BLOOD GAS O2 CAPACITY 12.5 mL/dl (16-24); ARTERIAL BLOOD GAS O2 CONTENT 12.4 ML/dl (15-23); ARTERIAL BLOOD GAS O2 SAT 99.4 % (95-98); ARTERIAL BLOOD GAS PCO2 53 mm/Hg (35-45); ARTERIAL BLOOD GAS PH 7.42 (7.35-7.45)
[2017-08-20] MEDS ORDERED: Iohexol 240 (50 ml) ONE (23:38)
[2017-08-21] MEDS: Albuterol-Ipratrop 3 mg / 0.5 (3 ml) UD IH SCH ×4 (01:30→20:40)
--- NOTE | 2017-08-21 02:45 | CT ---
EXAM: CT Abdomen and Pelvis With Intravenous Contrast CLINICAL HISTORY: 67 years old, female; Signs and symptoms; Bloating; Additional info: Abdominal distension TECHNIQUE: Axial computed tomography images of the abdomen and pelvis with intravenous contrast. All CT scans at this facility use one or more dose reduction techniques, viz.: automated exposure control; ma/kV adjustment per patient size (including targeted exams where dose is matched to indication; i.e. head); or iterative reconstruction technique. Coronal and sagittal reformatted images were created and reviewed. CONTRAST: 100 mL of [id number] administered intravenously. COMPARISON: CT - ABD PELVIS PO IV CONTRAST 2017-07-18 17:34 FINDINGS: Lower thorax: Nasogastric tube courses through esophagus and terminates in stomach. Mild cardiomegaly. Dependent opacities at both lung bases, right greater than left, probable atelectasis. ABDOMEN: Liver: Unremarkable. No mass. Gallbladder and bile ducts: Tiny calcified gallstone. 1.4 CM left adrenal nodule, stable. No ductal dilation. Pancreas: Unremarkable. No mass. No ductal dilation. Spleen: Unremarkable. No splenomegaly. Adrenals: Unremarkable. No mass. Kidneys and ureters: Unremarkable. No solid mass. No hydronephrosis. Stomach and bowel: Oral contrast in stomach. No evidence of small bowel obstruction. Gas filled large bowel with distention and air fluid levels. Fluid seen to level the rectum. Appendix: No findings to suggest acute appendicitis. PELVIS: Bladder: Christensen catheter in decompressed urinary bladder. Reproductive: Unremarkable as visualized. ABDOMEN and PELVIS: Intraperitoneal space: Unremarkable. No free air. No significant fluid collection. Bones/joints: No acute fracture. No dislocation. Soft tissues: Unremarkable. Vasculature: Unremarkable. No abdominal aortic aneurysm. Lymph nodes: Unremarkable. No enlarged lymph nodes. IMPRESSION: 1. Fluid-filled, dilated colon, with air fluid levels. Findings consistent with rapid small bowel transit. Nonspecific enteritis. 2. Small bowel is decompressed. No evidence of small bowel obstruction. 3. Remainder of findings as above.
--- NOTE | 2017-08-21 03:04 | CT ---
EXAM: CT Neck Without Intravenous Contrast CLINICAL HISTORY: 67 years old, female; Signs and symptoms; Tachypnea; Other: Trache; Additional info: Trache, tachypnea TECHNIQUE: Axial computed tomography images of the neck without intravenous contrast. All CT scans at this facility use one or more dose reduction techniques, viz.: automated exposure control; ma/kV adjustment per patient size (including targeted exams where dose is matched to indication; i.e. head); or iterative reconstruction technique. Coronal and sagittal reformatted images were created and reviewed. COMPARISON: No relevant prior studies available. FINDINGS: Nasopharynx: Unremarkable. Oropharynx: Unremarkable. No significant tonsillar enlargement. Hypopharynx: Unremarkable. Larynx: Prominent soft tissue at the level of the vocal cords. Normal epiglottis. Trachea: Tracheostomy tube. Retropharyngeal space: Unremarkable. Submandibular/parotid glands: Unremarkable. Glands are normal in size. Thyroid: Unremarkable. No enlarged or calcified nodules. Bones/joints: Diffuse spinal degenerative changes. No acute fracture. Soft tissues: Unremarkable. Vasculature: No acute findings. Lymph nodes: Unremarkable. No lymphadenopathy. Sinuses: Partial opacification sphenoid sinus. Lung apices: Nonspecific bilateral groundglass opacity. Tubes, lines and devices: Nasogastric tube.1.1 CM right thyroid lobe nodule. IMPRESSION: 1. Tracheostomy tube in place and above the level the fred. 2. Central tracheobronchial tree is patent. 3. Right thyroid lobe nodule. 4. Remainder of findings as above. EXAM: CT Chest Without Intravenous Contrast CLINICAL HISTORY: 67 years old, female; Signs and symptoms; Tachypnea; Other: Trache; Additional info: Trache, tachypnea TECHNIQUE: Axial computed tomography images of the chest without intravenous contrast. All CT scans at this facility use one or more dose reduction techniques, viz.: automated exposure control; ma/kV adjustment per patient size (including targeted exams where dose is matched to indication; i.e. head); or iterative reconstruction technique. Coronal and sagittal reformatted images were created and reviewed. COMPARISON: CT - CHEST W/CONTRAST 2017-07-05 08:14 FINDINGS: Lungs: Nonspecific groundglass opacity right upper lobe. Nonspecific groundglass opacity left upper lobe. Opacity posteriorly at right lung base, atelectasis versus infiltrate. Pleural space: Trace right pleural fluid. Trace left pleural fluid. No pneumothorax. Heart: Mild cardiomegaly. No significant pericardial effusion. Bones/joints: Diffuse spinal degenerative changes. No acute fracture. No dislocation. Soft tissues: Unremarkable. Vasculature: Atherosclerotic vascular disease. No thoracic aortic aneurysm. Lymph nodes: Multiple sub-centimeter mediastinal lymph nodes. Stomach and bowel: Distended colon. Tubes, lines and devices: Nasogastric tube courses through esophagus and terminates in stomach. IMPRESSION: 1. Nasogastric tube courses through esophagus and terminates in stomach. 2. Nonspecific groundglass opacity right upper and left upper lobes. 3. Left basilar atelectasis versus infiltrate. 4. Trace bilateral pleural effusions. 5. Distended colon.
[2017-08-21 06:00] LABS: HEMOGLOBIN 9.2 g/dL (12.0-16.0); MEAN CELL VOLUME 86.7 fl (80.0-105.0); MEAN CORPUSCULAR HEMOGLOBIN 26.6 pg (25.0-35.0); MEAN CORPUSCULAR HGB CONC 30.7 g/dl (31.0-37.0); MEAN PLATELET VOLUME 9.4 fl (7.0-11.0); RBC 3.46 10^6/uL (3.5-6.1); RED CELL DISTRIBUTION WIDTH 24.6 % (11.5-14.5); WHITE BLOOD COUNT 11.8 10^3/ul (4.5-11.0)
[2017-08-21] MEDS: Insulin Lispro (humaLOG) MEDIUM Coverage SC SCH ×4 (06:00→17:46)
[2017-08-21 06:34] LABS: ALBUMIN 3.2 g/dL (3.0-4.8); ALT/SGPT 38 U/L (7-56); AST/SGOT 26 U/L (14-36); BLOOD UREA NITROGEN 18 mg/dL (7-21); CALCIUM 7.4 mg/dL (8.4-10.5); GFR AFRICAN-AMERICAN > 60; GFR NON-AFRICAN AMERICAN > 60
[2017-08-21] MEDS ORDERED: Potassium Chloride 40 mEq/30 ml LIQ UD PO ONE (07:24)
[2017-08-21] MEDS: Pantoprazole 40 mg Susp UD PO SCH (08:27)
[2017-08-21] MEDS: Multi Vitamins 15 mL UD Oral Solution PO SCH (08:40)
[2017-08-21] MEDS: Levothyroxine 100 mcg (0.1 mg) Inj IVP SCH (09:07)
[2017-08-21] MEDS: Ferrous Sulfate 300 mg/5 mL Liq UD PO SCH ×3 (09:08→17:47)
[2017-08-21] MEDS: Nystatin 100,000 Units/gm Topical Pow(15 gm) TOP SCH (09:09)
--- NOTE | 2017-08-21 10:36 | CP.PCM.PN ---
Subjective - Date & Time of Evaluation Date of Evaluation: 08/21/17 Time of Evaluation: 07:30 - Subjective Subjective: Pt seen and examined, comfortable in NAD, no major complaints. Objective - Vital Signs/Intake and Output Vital Signs (last 24 hours): Temp Pulse Resp BP Pulse Ox 99 F 84 18 154/76 H 100 08/21/17 08:00 08/21/17 08:40 08/21/17 08:40 08/21/17 08:00 08/21/17 08:40 Intake and Output: 08/21/17 08/21/17 06:59 18:59 Intake Total 300 Output Total 1400 Balance -1100 - Medications Medications: Current Medications Acetaminophen (Tylenol 325mg Tab) 650 mg PO Q6H PRN PRN Reason: Pain, moderate (4-7) Last Admin: 08/20/17 09:49 Dose: 650 mg Albuterol/Ipratropium (Duoneb 3 Mg/0.5 Mg (3 Ml) Ud) 3 ml IH [id number] [facility] Last Admin: 08/21/17 08:41 Dose: 3 ml Albuterol/Ipratropium (Duoneb 3 Mg/0.5 Mg (3 Ml) Ud) 3 ml IH [id number] PRN PRN Reason: SOB Last Admin: 08/20/17 19:10 Dose: 3 ml Budesonide (Pulmicort Respules) 1 mg IH [id number] [facility] Last Admin: 08/20/17 19:10 Dose: 1 mg Calcium Carbonate (Caltrate) 600 mg PO BID [facility] Last Admin: 08/21/17 09:08 Dose: 600 mg Ergocalciferol (Drisdol 50,000 Intl Units Cap) 1 cap PO Q7D [facility] Last Admin: 08/19/17 13:43 Dose: 1 cap Ferrous Sulfate (Feosol Liq) 300 mg PO TID [facility] Last Admin: 08/21/17 09:08 Dose: 300 mg Heparin Sodium (Porcine) (Heparin) 5,000 units SC Q12 [facility] PRN Reason: Protocol Last Admin: 08/21/17 09:08 Dose: 5,000 units Insulin Human Lispro (Humalog Med) 0 units SC Q6H [facility] PRN Reason: Protocol Last Admin: 08/21/17 06:00 Dose: Not Given Levothyroxine Sodium (Synthroid) 50 mcg IVP DAILY [facility] Last Admin: 08/21/17 09:07 Dose: 50 mcg Multivitamins/Vitamin C (Multi-Delyn Liquid) 15 ml PO 0800 [facility] Last Admin: 08/21/17 08:40 Dose: 15 ml Nystatin (Nystop Topical Powder) 1 gm TOP DAILY [facility] Last Admin: 08/21/17 09:09 Dose: 1 pow Pantoprazole Sodium (Protonix Susp) 40 mg PO ACB [facility] Last Admin: 08/21/17 08:27 Dose: 40 mg Zinc Sulfate (Zinc Sulfate 220 Mg Cap) 220 mg PO DAILY [facility] Last Admin: 08/21/17 09:09 Dose: 220 mg - Labs Labs: 08/21/17 05:30 08/21/17 05:30 PT 12.5 SECONDS (9.4-12.5) 08/17/17 05:45 INR 1.09 (0.93-1.08) H 08/17/17 05:45 APTT 27.7 Seconds (25.1-36.5) 08/17/17 05:45 - Constitutional Appears: Non-toxic, No Acute Distress - Eye Exam Eye Exam: Normal appearance - ENT Exam ENT Exam: Mucous Membranes Moist - Neck Exam Additional comments: +TRACH - Respiratory Exam Respiratory Exam: Clear to Ausculation Bilateral, NORMAL BREATHING PATTERN - Cardiovascular Exam Cardiovascular Exam: REGULAR RHYTHM, +S1, +S2 - GI/Abdominal Exam GI & Abdominal Exam: Distended, Soft, Normal Bowel Sounds - Extremities Exam Extremities Exam: Pedal Edema - Neurological Exam Neurological Exam: Alert, Awake Assessment and Plan - Assessment and Plan (Free Text) Assessment: Patient is 67yo female a/w hypercapnic resp failure, ventilatory dependent Currently afebrile, HD stable, comfortable, off pressors, in NAD. Renal function stable. Hypercapnic resp Failure, s/p trach Oliguria/renal Failure,improved Obesity COPD Recommend: - cont with ventilatory support, low tidal vol ventilation, maintain Pplateau<30 , daily CPAP trials - DC steroids - monitor urine output, BUN/Cr - Hold BILLY-I - BP control - follow up renal, - feeds - FS control - GI ppx - DVT ppx - pending Ltach transfer
--- NOTE | 2017-08-21 12:36 | CP.PCM.PN ---
<Vivian Guerrero - Last Filed: 08/21/17 13:04> Subjective - Date & Time of Evaluation Date of Evaluation: 08/21/17 Time of Evaluation: 09:00 - Subjective Subjective: PGY-2 Progress note for hospitalist service Patient seen and examined at bedside in ICU. No acute distress. Patient is alert and following simple commends. She denies any pain. Objective - Vital Signs/Intake and Output Vital Signs (last 24 hours): Temp Pulse Resp BP Pulse Ox 99 F 84 18 154/76 H 100 08/21/17 08:00 08/21/17 10:00 08/21/17 08:40 08/21/17 08:00 08/21/17 08:40 Intake and Output: 08/21/17 08/21/17 06:59 18:59 Intake Total 300 Output Total 1400 Balance -1100 - Medications Medications: Current Medications Acetaminophen (Tylenol 325mg Tab) 650 mg PO Q6H PRN PRN Reason: Pain, moderate (4-7) Last Admin: 08/20/17 09:49 Dose: 650 mg Albuterol/Ipratropium (Duoneb 3 Mg/0.5 Mg (3 Ml) Ud) 3 ml IH [id number] [facility] Last Admin: 08/21/17 08:41 Dose: 3 ml Albuterol/Ipratropium (Duoneb 3 Mg/0.5 Mg (3 Ml) Ud) 3 ml IH [id number] PRN PRN Reason: SOB Last Admin: 08/20/17 19:10 Dose: 3 ml Budesonide (Pulmicort Respules) 1 mg IH [id number] [facility] Last Admin: 08/20/17 19:10 Dose: 1 mg Calcium Carbonate (Caltrate) 600 mg PO BID [facility] Last Admin: 08/21/17 09:08 Dose: 600 mg Ergocalciferol (Drisdol 50,000 Intl Units Cap) 1 cap PO Q7D [facility] Last Admin: 08/19/17 13:43 Dose: 1 cap Ferrous Sulfate (Feosol Liq) 300 mg PO TID [facility] Last Admin: 08/21/17 09:08 Dose: 300 mg Heparin Sodium (Porcine) (Heparin) 5,000 units SC Q12 [facility] PRN Reason: Protocol Last Admin: 08/21/17 09:08 Dose: 5,000 units Insulin Human Lispro (Humalog Med) 0 units SC Q6H [facility] PRN Reason: Protocol Last Admin: 08/21/17 06:00 Dose: Not Given Levothyroxine Sodium (Synthroid) 50 mcg IVP DAILY [facility] Last Admin: 08/21/17 09:07 Dose: 50 mcg Multivitamins/Vitamin C (Multi-Delyn Liquid) 15 ml PO 0800 [facility] Last Admin: 08/21/17 08:40 Dose: 15 ml Nystatin (Nystop Topical Powder) 1 gm TOP DAILY [facility] Last Admin: 08/21/17 09:09 Dose: 1 pow Pantoprazole Sodium (Protonix Susp) 40 mg PO ACB [facility] Last Admin: 08/21/17 08:27 Dose: 40 mg Zinc Sulfate (Zinc Sulfate 220 Mg Cap) 220 mg PO DAILY [facility] Last Admin: 08/21/17 09:09 Dose: 220 mg - Labs Labs: 08/21/17 05:30 08/21/17 05:30 PT 12.5 SECONDS (9.4-12.5) 08/17/17 05:45 INR 1.09 (0.93-1.08) H 08/17/17 05:45 APTT 27.7 Seconds (25.1-36.5) 08/17/17 05:45 - Constitutional Appears: No Acute Distress - Head Exam Head Exam: ATRAUMATIC, NORMAL INSPECTION - Eye Exam Eye Exam: EOMI, Normal appearance - ENT Exam ENT Exam: Mucous Membranes Moist - Neck Exam Additional comments: trach in place - Respiratory Exam Respiratory Exam: Clear to Ausculation Bilateral, NORMAL BREATHING PATTERN. absent: Decreased Breath Sounds, Rales, Rhonchi, Wheezes, Respiratory Distress - Cardiovascular Exam Cardiovascular Exam: REGULAR RHYTHM, +S1, +S2. absent: Tachycardia, Murmur - GI/Abdominal Exam GI & Abdominal Exam: Distended, Soft, Tenderness, Normal Bowel Sounds. absent: Firm - Neurological Exam Neurological Exam: Alert, Awake, Oriented x3 - Skin Skin Exam: Dry, Intact, Normal Color, Warm Assessment and Plan - Assessment and Plan (Free Text) Assessment: Patient is a 67 year old female with history of asthma, arthritis, anemia, and obesity who was originally admitted for right lower extremity cellulitis and UTI. During her hospitalization course she developed acute hypercapneic respiratory failure secondary to asthma/RA airway disease/kyphoscoliosis in setting of cdiff colitis. s/p trach. Patient is alert and awake. Currently afebrile, hemodynamically stable, POD#4 trach on NGT feeds. Plan: 1. Hypercapnic Respiratory Failure - patient Alert and awake - patient is status post trach day #4 - CT neck and chest on 08/20 showed Nasogastric tube courses through esophagus and terminates in stomach, Nonspecific groundglass opacity right upper and left upper lobes, Left basilar atelectasis versus infiltrate. - continue to monitor respiratory status - continue with dumaria eugenia pulmicort - procal 1.49 - Weaning protocol - Prednisone was disccontinued - Chest physiotherapy - Suction q4h - OOB to chair with physical therapy - Pulmonary toilet - conservative fluid management 2. chronic Abdominal Distension - CT Abdomen Pelvis with PO and IV Contrast (07/18):Interstitial and airspace disease in the lung bases; mild cardiomegaly and atherosclerotic disease; fatty liver; gallstones; mild ileus, no obstruction; constipation with fecal impaction - repeat CT abd on 08/20 showed Fluid-filled, dilated colon, with air fluid levels. Findings consistent with rapid small bowel transit, Nonspecific enteritis, Small bowel is decompressed. No evidence of small bowel obstruction. - abdominal flat plate-No acute changes or findings - patient is having BM - rectal tube was placed per ICU to help decompress bowel - will continue to monitor - Plan for feeding next week with specialized tracheostomy cuff 3. Normocytic anemia - improved to 9.2 this am - Hemoglobins reviewed, trended, will transfuse if Hbg < 7.0 - continue feosol - Monitor daily 4. Cdiff colitis-resolved - completed course of flagyl 5. Acute Kidney injury - improving - Monitor and maintain MAP > 65 - Monitor Input/Output, daily weights and renal function with basic metabolic panel - supplement electrolytes as needed - weekly vitamin D supplements - hold BILLY/ARB 6. HTN - controlled - BP reviewed, trended, and appreciated - hold zestril due to CATE 7. Hypokalemia - low 3.4, repleted - continue to monitor correct as needed 8.Hypocalcemia - low this am - continue calcium carbonate 600mg BID - continue to monitor replete as needed 9. Hypomagnesia - improving - will repeat in AM - continue to monitor, correct as needed 10. h/o hypothyriodism - continue synthroid 50mcg daily Prophylaxis: - GI ppx Protonix - DVT ppx: Heparin <Juan Rodriguez - Last Filed: 08/21/17 13:45> Objective - Vital Signs/Intake and Output Vital Signs (last 24 hours): Temp Pulse Resp BP Pulse Ox 98.9 F 84 18 154/76 H 100 08/21/17 12:00 08/21/17 13:26 08/21/17 08:40 08/21/17 08:00 08/21/17 08:40 Intake and Output: 08/21/17 08/21/17 06:59 18:59 Intake Total 300 Output Total 1400 Balance -1100 - Medications Medications: Current Medications Acetaminophen (Tylenol 325mg Tab) 650 mg PO Q6H PRN PRN Reason: Pain, moderate (4-7) Last Admin: 08/20/17 09:49 Dose: 650 mg Albuterol/Ipratropium (Duoneb 3 Mg/0.5 Mg (3 Ml) Ud) 3 ml IH [id number] [facility] Last Admin: 08/21/17 08:41 Dose: 3 ml Albuterol/Ipratropium (Duoneb 3 Mg/0.5 Mg (3 Ml) Ud) 3 ml IH [id number] PRN PRN Reason: SOB Last Admin: 08/20/17 19:10 Dose: 3 ml Budesonide (Pulmicort Respules) 1 mg IH [id number] [facility] Last Admin: 08/20/17 19:10 Dose: 1 mg Calcium Carbonate (Caltrate) 600 mg PO BID [facility] Last Admin: 08/21/17 09:08 Dose: 600 mg Ergocalciferol (Drisdol 50,000 Intl Units Cap) 1 cap PO Q7D [facility] Last Admin: 08/19/17 13:43 Dose: 1 cap Ferrous Sulfate (Feosol Liq) 300 mg PO TID [facility] Last Admin: 08/21/17 09:08 Dose: 300 mg Heparin Sodium (Porcine) (Heparin) 5,000 units SC Q12 [facility] PRN Reason: Protocol Last Admin: 08/21/17 09:08 Dose: 5,000 units Insulin Human Lispro (Humalog Med) 0 units SC Q6H [facility] PRN Reason: Protocol Last Admin: 08/21/17 06:00 Dose: Not Given Levothyroxine Sodium (Synthroid) 50 mcg IVP DAILY [facility] Last Admin: 08/21/17 09:07 Dose: 50 mcg Multivitamins/Vitamin C (Multi-Delyn Liquid) 15 ml PO 0800 [facility] Last Admin: 08/21/17 08:40 Dose: 15 ml Nystatin (Nystop Topical Powder) 1 gm TOP DAILY [facility] Last Admin: 08/21/17 09:09 Dose: 1 pow Pantoprazole Sodium (Protonix Susp) 40 mg PO ACB [facility] Last Admin: 08/21/17 08:27 Dose: 40 mg Zinc Sulfate (Zinc Sulfate 220 Mg Cap) 220 mg PO DAILY [facility] Last Admin: 08/21/17 09:09 Dose: 220 mg - Labs Labs: 08/21/17 05:30 08/21/17 05:30 PT 12.5 SECONDS (9.4-12.5) 08/17/17 05:45 INR 1.09 (0.93-1.08) H 08/17/17 05:45 APTT 27.7 Seconds (25.1-36.5) 08/17/17 05:45 Attending/Attestation - Attestation I have personally seen and examined this patient.: Yes I have fully participated in the care of the patient.: Yes I have reviewed all pertinent clinical information, including history, physical exam and plan: Yes Notes (Text): 08/21/17 13:43 67 year old female who was intubated in ICU secondary to hypercapneic respiratory failure secondary to COPD exacerbation. She was seen by surgery and is now s/p tracheostomy POD #4. Specialized tracheostomy cuff was ordered for next week. She is on duonebs and pulmicort. Steroids have been tapered off. Patient is s/p antibiotics for pneumonia. Repeat CDif study was negative. Renal function has improved. Will replete and repeat lytes. CT chest/abd/pelvis reviewed which showed nonspecific enterits. Rectal tube was ordered per ICU team. Juan Rodriguez MD Hospitalist.
[2017-08-21] MEDS: Budesonide 0.5 mg/2 ml Inhal Susp UD IH SCH (14:55)
--- NOTE | 2017-08-21 18:20 | CP.PCM.PN ---
Subjective - Date & Time of Evaluation Date of Evaluation: 08/21/17 Time of Evaluation: 17:00 - Subjective Subjective: Infectious Disease Follow Up: August 21, 2017 67 yo female presenting with 3 weeks of RLE ulceration, swelling and leaking from the wound as well as multiple falls in the past 3 weeks. The patient has an extensive medical history of asthma, arthritis, vitamin C deficiency, and possible thyroid disease. Draining RLE ulceration... cellulitis improved/resolved. Multiple chronic medical issues. Still with persistent dry cough. Otherwise stable. Mild erythema and excoriation of the folds in the abdomen and under the breasts. UTI with Klebsiella earlier in hospitalization but had treatment with Cipro that is now completed. Social Issues. The patient had respiratory distress with no improvement from BiPAP. Patient required intubation and ventilation. Transferred to MICU for further care. The patient was started on Zyvox and Aztreonam IV. Patient had a positive C. Diff antigen but negative toxin. Remains ventilated today. Appears stable. Chest X-ray not showing new findings. No leukocytosis. Cultures pending... so far negative. Patient unable to be weaned from ventilator. Supportive care. No fevers or leukocytosis. First two Procalcitonin equivocal. The patient had hypothermia ranging from 93.0 F starting from two days ago. Temperature did rise back up to 99.0 F and has been hovering around 97.7 F. Rechecking procalcitonin... now at 1.49. Difficulty from weaning from the ventilator. Patient is opening eyes and tracking now. Creatinine has been improving and is down to 0.9 from 1.1 from 1.2 from 1.3 from 1.5 from 2.0 now. Mild elevation in WBC to 11. Open tracheostomy done 08/17/2017. Failed ventilator weaning during this hospitalization. Recent repeat C. Diff negative for toxin and antigen. Patient has completed antibiotic regimens and is off antibiotics at this time. Patient is awake and alert. Objective - Vital Signs/Intake and Output Vital Signs (last 24 hours): Temp Pulse Resp BP Pulse Ox 98.8 F 95 H 31 H 149/83 98 08/21/17 15:41 08/21/17 17:43 08/21/17 16:40 08/21/17 17:00 08/21/17 17:40 Intake and Output: 08/21/17 08/21/17 06:59 18:59 Intake Total 300 150 Output Total 1400 1650 Balance -1100 -1500 - Medications Medications: Current Medications Acetaminophen (Tylenol 325mg Tab) 650 mg PO Q6H PRN PRN Reason: Pain, moderate (4-7) Last Admin: 08/20/17 09:49 Dose: 650 mg Albuterol/Ipratropium (Duoneb 3 Mg/0.5 Mg (3 Ml) Ud) 3 ml IH [id number] [facility] Last Admin: 08/21/17 14:54 Dose: 3 ml Albuterol/Ipratropium (Duoneb 3 Mg/0.5 Mg (3 Ml) Ud) 3 ml IH [id number] PRN PRN Reason: SOB Last Admin: 08/20/17 19:10 Dose: 3 ml Budesonide (Pulmicort Respules) 1 mg IH [id number] [facility] Last Admin: 08/21/17 14:55 Dose: 0.5 mg Calcium Carbonate (Caltrate) 600 mg PO BID [facility] Last Admin: 08/21/17 17:47 Dose: 600 mg Ergocalciferol (Drisdol 50,000 Intl Units Cap) 1 cap PO Q7D [facility] Last Admin: 08/19/17 13:43 Dose: 1 cap Ferrous Sulfate (Feosol Liq) 300 mg PO TID [facility] Last Admin: 08/21/17 17:47 Dose: 300 mg Heparin Sodium (Porcine) (Heparin) 5,000 units SC Q12 [facility] PRN Reason: Protocol Last Admin: 08/21/17 09:08 Dose: 5,000 units Insulin Human Lispro (Humalog Med) 0 units SC Q6H [facility] PRN Reason: Protocol Last Admin: 08/21/17 17:46 Dose: Not Given Levothyroxine Sodium (Synthroid) 50 mcg IVP DAILY [facility] Last Admin: 08/21/17 09:07 Dose: 50 mcg Multivitamins/Vitamin C (Multi-Delyn Liquid) 15 ml PO 0800 [facility] Last Admin: 08/21/17 08:40 Dose: 15 ml Nystatin (Nystop Topical Powder) 1 gm TOP DAILY [facility] Last Admin: 08/21/17 09:09 Dose: 1 pow Pantoprazole Sodium (Protonix Susp) 40 mg PO ACB [facility] Last Admin: 08/21/17 08:27 Dose: 40 mg Zinc Sulfate (Zinc Sulfate 220 Mg Cap) 220 mg PO DAILY [facility] Last Admin: 08/21/17 09:09 Dose: 220 mg - Labs Labs: 08/21/17 05:30 08/21/17 05:30 PT 12.5 SECONDS (9.4-12.5) 08/17/17 05:45 INR 1.09 (0.93-1.08) H 08/17/17 05:45 APTT 27.7 Seconds (25.1-36.5) 08/17/17 05:45 - Constitutional Appears: Non-toxic, No Acute Distress, Chronically Ill - Head Exam Additional comments: trach and ventilated. - Eye Exam Eye Exam: EOMI, PERRL Pupil Exam: NORMAL ACCOMODATION, PERRL - ENT Exam ENT Exam: Mucous Membranes Moist, Normal External Ear Exam, TM's Normal Bilaterally - Neck Exam Neck Exam: Full ROM, Normal Inspection - Respiratory Exam Respiratory Exam: Decreased Breath Sounds, NORMAL BREATHING PATTERN. absent: Rales, Rhonchi, Wheezes - Cardiovascular Exam Cardiovascular Exam: REGULAR RHYTHM, RRR, +S1, +S2 - GI/Abdominal Exam GI & Abdominal Exam: Soft, Normal Bowel Sounds. absent: Distended, Tenderness - Extremities Exam Extremities Exam: Full ROM, Normal Inspection - Neurological Exam Neurological Exam: Alert, Awake, CN II-XII Intact, Oriented x3 - Psychiatric Exam Psychiatric exam: Normal Affect, Normal Mood - Skin Skin Exam: Intact, Normal Color Assessment and Plan - Assessment and Plan (Free Text) Assessment: 67 yo female with multiple medical issues with PCN allergy diagnosed as a teenager verified by an [employer]. The patient with leukocytosis. Await cultures especially urine cultures. Diabetes and HTN history? Local wound care. Elevated ESR and C-reactive protein. Completed Vancomycin and Aztreonam for antibiotic coverage. UTI with E. coli sensitive to Azactam. Was on Vancomycin for cellulitis IV. For UTI for 5-7 days treatment... completed. Supportive care. Cellulitis appears improved. No new issues. Social issues currently. Homeless at this time. CT scan of chest done. No infiltrates seen. Afebrile the past 24 hours. Mild congestion noted in CT with small pulmonary effusions. No leukocytosis. Slightly elevated procalcitonin (0.66) which is undefined without stronger evidence for pneumonia. When encouraged, she is able to use the incentive spirometer without issues and ambulate with minimal difficulty. Repeat procalcitonin showing 0.71. UTI with Klebsiella. Sensitive to Cipro. Was on Cipro for 5 day course at 500mg PO BID. Completed the antibiotic course. Stable currently. No new issues. Off antibiotics at this time. Multiple social issues. Chronic cough still with periods of hacking. Complained of Vague mild general pains. During this hospitalization, the patient developed respiratory failure and required intubation. Started on Zyvox and Aztreonam IV. Will add Flagyl as well. No leukocytosis. Noted C. Diff with positive antigen but negative toxin. Supportive care. Remains intubated and ventilated. Cultures pending. C. Diff negative to date. No leukocytosis or fever reported. Essentially clear X-ray. Hypothermia episodes most of yesterday to this morning. Antibiotic courses completed. Noted gram positive cocci in most recent urine culture. Still awaiting identification. Supportive care. Patient did improve mentally. Still difficulty in weaning off respirator. She remains intubated. Failed weaning from vent. Tracheotomy performed 08/17/2017. Patient is awake and alert. Currently off antibiotics. Repeat C. Diff testing was negative. Remains off antibiotics at this time. Thank you for allowing me to participate in the care of the patient, we will follow with you.
[2017-08-22] MEDS: Albuterol-Ipratrop 3 mg / 0.5 (3 ml) UD IH SCH ×4 (02:30→19:45)
[2017-08-22] MEDS: Insulin Lispro (humaLOG) MEDIUM Coverage SC SCH ×3 (03:16→17:49)
[2017-08-22 05:55] LABS: BASO # 0.06 K/mm3 (0.0-2.0); BASO % 0.7 % (0.0-3.0); EOS # 0.3 (0.0-0.7); EOS % 3.3 % (1.5-5.0); GRAN # 5.67 (1.4-6.5); GRAN % 67.3 % (50.0-68.0); HEMOGLOBIN 8.6 g/dL (12.0-16.0); LYMPH # 1.5 (1.2-3.4); LYMPH % 18.2 % (22.0-35.0); MEAN CORPUSCULAR HEMOGLOBIN 26.6 pg (25.0-35.0); MEAN CORPUSCULAR HGB CONC 30.6 g/dl (31.0-37.0); MEAN PLATELET VOLUME 9.1 fl (7.0-11.0); MONO # 0.9 (0.1-0.6); MONO % 10.5 % (1.0-6.0); RBC 3.23 10^6/uL (3.5-6.1); RED CELL DISTRIBUTION WIDTH 24.4 % (11.5-14.5); WHITE BLOOD COUNT 8.4 10^3/ul (4.5-11.0)
[2017-08-22 06:22] LABS: ALB/GLOB RATIO 0.9 (1.1-1.8); ALBUMIN 2.9 g/dL (3.0-4.8); ALT/SGPT 29 U/L (7-56); AST/SGOT 28 U/L (14-36); BLOOD UREA NITROGEN 13 mg/dL (7-21); CALCIUM 7.3 mg/dL (8.4-10.5); GFR AFRICAN-AMERICAN > 60; GFR NON-AFRICAN AMERICAN > 60; MAGNESIUM 1.2 mg/dL (1.7-2.2)
[2017-08-22] MEDS ORDERED: Potassium Chloride 40 mEq/30 ml LIQ UD PO ONE ×3 (07:45→18:00)
[2017-08-22] MEDS ORDERED: Potassium Chloride 40 mEq/30 ml LIQ UD PO STA (07:45)
--- NOTE | 2017-08-22 08:02 | CP.PCM.PN ---
<Vivian Guerrero - Last Filed: 08/22/17 09:55> Subjective - Date & Time of Evaluation Date of Evaluation: 08/22/17 Time of Evaluation: 09:00 - Subjective Subjective: PGY-2 progress note for hospitalist service Patient seen and examined at bedside. No acute distress. Per nurse no acute events over night. Patient is comfortable on trach collar. Rectal tube placed yesterday, draining brown fluid. Patient denies any pain, abd pain. Objective - Vital Signs/Intake and Output Vital Signs (last 24 hours): Temp Pulse Resp BP Pulse Ox 98 F 88 24 123/68 95 08/22/17 07:35 08/22/17 06:00 08/22/17 04:00 08/22/17 04:00 08/22/17 04:00 Intake and Output: 08/22/17 08/22/17 06:59 18:59 Output Total 1700 Balance -1700 - Medications Medications: Current Medications Acetaminophen (Tylenol 325mg Tab) 650 mg PO Q6H PRN PRN Reason: Pain, moderate (4-7) Last Admin: 08/20/17 09:49 Dose: 650 mg Albuterol/Ipratropium (Duoneb 3 Mg/0.5 Mg (3 Ml) Ud) 3 ml IH [id number] [facility] Last Admin: 08/21/17 14:54 Dose: 3 ml Albuterol/Ipratropium (Duoneb 3 Mg/0.5 Mg (3 Ml) Ud) 3 ml IH [id number] PRN PRN Reason: SOB Last Admin: 08/20/17 19:10 Dose: 3 ml Budesonide (Pulmicort Respules) 1 mg IH [id number] [facility] Last Admin: 08/21/17 14:55 Dose: 0.5 mg Calcium Carbonate (Caltrate) 600 mg PO BID [facility] Last Admin: 08/21/17 17:47 Dose: 600 mg Ergocalciferol (Drisdol 50,000 Intl Units Cap) 1 cap PO Q7D [facility] Last Admin: 08/19/17 13:43 Dose: 1 cap Ferrous Sulfate (Feosol Liq) 300 mg PO TID [facility] Last Admin: 08/21/17 17:47 Dose: 300 mg Heparin Sodium (Porcine) (Heparin) 5,000 units SC Q12 [facility] PRN Reason: Protocol Last Admin: 08/21/17 21:31 Dose: 5,000 units Potassium Chloride (Potassium Chloride 10 Meq/100 Ml) 10 meq in 100 mls @ 50 mls/hr IVPB ONCE ONE Stop: 08/22/17 09:44 Insulin Human Lispro (Humalog Med) 0 units SC Q6H [facility] PRN Reason: Protocol Last Admin: 08/22/17 03:16 Dose: Not Given Levothyroxine Sodium (Synthroid) 50 mcg IVP DAILY [facility] Last Admin: 08/21/17 09:07 Dose: 50 mcg Multivitamins/Vitamin C (Multi-Delyn Liquid) 15 ml PO 0800 [facility] Last Admin: 08/21/17 08:40 Dose: 15 ml Nystatin (Nystop Topical Powder) 1 gm TOP DAILY [facility] Last Admin: 08/21/17 09:09 Dose: 1 pow Pantoprazole Sodium (Protonix Susp) 40 mg PO ACB [facility] Last Admin: 08/21/17 08:27 Dose: 40 mg Potassium Chloride (Potassium Chloride Oral Soln) 40 meq PO ONCE ONE Stop: 08/22/17 07:46 Potassium Chloride (Potassium Chloride Oral Soln) 40 meq PO STAT STA Stop: 08/22/17 07:46 Zinc Sulfate (Zinc Sulfate 220 Mg Cap) 220 mg PO DAILY [facility] Last Admin: 08/21/17 09:09 Dose: 220 mg - Labs Labs: 08/22/17 05:30 08/22/17 05:30 PT 12.5 SECONDS (9.4-12.5) 08/17/17 05:45 INR 1.09 (0.93-1.08) H 08/17/17 05:45 APTT 27.7 Seconds (25.1-36.5) 08/17/17 05:45 - Constitutional Appears: No Acute Distress - Head Exam Head Exam: ATRAUMATIC, NORMAL INSPECTION, NORMOCEPHALIC - Eye Exam Eye Exam: Normal appearance - ENT Exam ENT Exam: Mucous Membranes Moist - Respiratory Exam Respiratory Exam: Clear to Ausculation Bilateral, NORMAL BREATHING PATTERN. absent: Rales, Rhonchi, Wheezes, Respiratory Distress, Stridor - Cardiovascular Exam Cardiovascular Exam: REGULAR RHYTHM, +S1, +S2. absent: Tachycardia, Murmur - GI/Abdominal Exam GI & Abdominal Exam: Soft, Normal Bowel Sounds. absent: Distended, Firm, Guarding, Tenderness - Extremities Exam Extremities Exam: Normal Inspection. absent: Pedal Edema, Tenderness - Neurological Exam Neurological Exam: Alert, Awake, Oriented x3 - Skin Skin Exam: Dry, Intact, Normal Color, Warm Assessment and Plan - Assessment and Plan (Free Text) Assessment: Patient is a 67 year old female with history of asthma, arthritis, anemia, and obesity who was originally admitted for right lower extremity cellulitis and UTI. During her hospitalization course she developed acute hypercapneic respiratory failure secondary to asthma/RA airway disease/kyphoscoliosis in setting of cdiff colitis. s/p trach. Patient is alert and awake. Currently afebrile, hemodynamically stable, on NGT feeds. Plan: Hypercapnic Respiratory Failure - patient Alert and awake - patient is status post trach day #5 - CT neck and chest on 08/20 showed Nasogastric tube courses through esophagus and terminates in stomach, Nonspecific groundglass opacity right upper and left upper lobes, Left basilar atelectasis versus infiltrate. - continue to monitor respiratory status - continue with anton calderonort - procal 1.49 - Weaning protocol, tolerating cpap this morning - Chest physiotherapy - Suction q4h - OOB to chair with physical therapy - Pulmonary toilet - conservative fluid management chronic Abdominal Distension - CT Abdomen Pelvis with PO and IV Contrast (07/18):Interstitial and airspace disease in the lung bases; mild cardiomegaly and atherosclerotic disease; fatty liver; gallstones; mild ileus, no obstruction; constipation with fecal impaction - repeat CT abd on 08/20 showed Fluid-filled, dilated colon, with air fluid levels. Findings consistent with rapid small bowel transit, Nonspecific enteritis, Small bowel is decompressed. No evidence of small bowel obstruction. - abdominal flat plate-No acute changes or findings - rectal tube was placed, draining brown fluid, abd soft, less distension - will continue to monitor - Plan for feeding next week with specialized tracheostomy cuff Normocytic anemia - hgb 8.6 this morning - consider transfuse if Hbg < 7.0 - continue feosol - Monitor daily Hypokalemia - low 2.5, repleted - possibly due to diarrhea, liquid stool from rectal tube - will continue to monitor correct as needed Hypocalcemia - corrected ca 8.2, imporved from yesterday - continue calcium carbonate 600mg BID - continue to monitor replete as needed Hypomagnesia - 1.2 this am, repleted - will repeat in AM - continue to monitor, correct as needed Acute Kidney injury - improving, returned to baseline - Monitor and maintain MAP > 65 - Monitor Input/Output, daily weights and renal function with basic metabolic panel - supplement electrolytes as needed - weekly vitamin D supplements - hold BILLY/ARB HTN - controlled - BP reviewed, trended, and appreciated - hold zestril due to CATE Cdiff colitis-resolved - completed course of flagyl h/o hypothyriodism - continue synthroid 50mcg daily Prophylaxis: - GI ppx Protonix - DVT ppx: Heparin <Juan Rodriguez - Last Filed: 08/22/17 12:13> Objective - Vital Signs/Intake and Output Vital Signs (last 24 hours): Temp Pulse Resp BP Pulse Ox 98 F 93 H 24 123/68 95 08/22/17 07:35 08/22/17 10:00 08/22/17 04:00 08/22/17 04:00 08/22/17 04:00 Intake and Output: 08/22/17 08/22/17 06:59 18:59 Output Total 1700 Balance -1700 - Medications Medications: Current Medications Acetaminophen (Tylenol 325mg Tab) 650 mg PO Q6H PRN PRN Reason: Pain, moderate (4-7) Last Admin: 08/20/17 09:49 Dose: 650 mg Albuterol/Ipratropium (Duoneb 3 Mg/0.5 Mg (3 Ml) Ud) 3 ml IH [id number] [facility] Last Admin: 08/22/17 08:46 Dose: 3 ml Albuterol/Ipratropium (Duoneb 3 Mg/0.5 Mg (3 Ml) Ud) 3 ml IH [id number] PRN PRN Reason: SOB Last Admin: 08/20/17 19:10 Dose: 3 ml Budesonide (Pulmicort Respules) 0.5 mg IH [id number] [facility] Calcium Carbonate (Caltrate) 600 mg PO BID [facility] Last Admin: 08/22/17 10:33 Dose: 600 mg Ergocalciferol (Drisdol 50,000 Intl Units Cap) 1 cap PO Q7D [facility] Last Admin: 08/19/17 13:43 Dose: 1 cap Ferrous Sulfate (Feosol Liq) 300 mg PO TID [facility] Last Admin: 08/22/17 10:33 Dose: 300 mg Heparin Sodium (Porcine) (Heparin) 5,000 units SC Q12 [facility] PRN Reason: Protocol Last Admin: 08/22/17 10:33 Dose: 5,000 units Insulin Human Lispro (Humalog Med) 0 units SC Q6H [facility] PRN Reason: Protocol Last Admin: 08/22/17 03:16 Dose: Not Given Levothyroxine Sodium (Synthroid) 50 mcg IVP DAILY [facility] Last Admin: 08/22/17 10:32 Dose: 50 mcg Multivitamins/Vitamin C (Multi-Delyn Liquid) 15 ml PO 0800 [facility] Nystatin (Nystop Topical Powder) 1 gm TOP DAILY [facility] Last Admin: 08/21/17 09:09 Dose: 1 pow Pantoprazole Sodium (Protonix Susp) 40 mg PO ACB [facility] Last Admin: 08/22/17 08:29 Dose: 40 mg Potassium Chloride (Potassium Chloride Oral Soln) 40 meq PO ONCE ONE Stop: 08/22/17 18:01 Zinc Sulfate (Zinc Sulfate 220 Mg Cap) 220 mg PO DAILY [facility] Last Admin: 08/22/17 10:33 Dose: 220 mg - Labs Labs: 08/22/17 05:30 08/22/17 05:30 PT 12.5 SECONDS (9.4-12.5) 08/17/17 05:45 INR 1.09 (0.93-1.08) H 08/17/17 05:45 APTT 27.7 Seconds (25.1-36.5) 08/17/17 05:45 Attending/Attestation - Attestation I have personally seen and examined this patient.: Yes I have fully participated in the care of the patient.: Yes I have reviewed all pertinent clinical information, including history, physical exam and plan: Yes Notes (Text): 08/22/17 12:12 67 year old female who was intubated in ICU secondary to hypercapneic respiratory failure secondary to COPD exacerbation. She was seen by surgery and is now s/p tracheostomy POD #5. Specialized tracheostomy cuff was ordered for this week. She is on duonebs and pulmicort. Steroids have been tapered off. Patient is s/p antibiotics for pneumonia. Repeat CDif study was negative. Renal function has improved. Will replete and repeat lytes. CT chest/abd/pelvis showed nonspecific enterits. Rectal tube was placed yesterday and her abdomen is less distended today. Juan Rodriguez MD Hospitalist.
[2017-08-22] MEDS ORDERED: Magnesium Sulfate 2 GM in Sodium Chloride 0.9% 100 ML IVPB ONE (08:26)
[2017-08-22] MEDS: Pantoprazole 40 mg Susp UD PO SCH (08:29)
[2017-08-22] MEDS: Budesonide 0.5 mg/2 ml Inhal Susp UD IH SCH ×2 (08:50→19:45)
[2017-08-22] MEDS: Nystatin 100,000 Units/gm Topical Pow(15 gm) TOP SCH (10:00)
--- NOTE | 2017-08-22 10:25 | CP.PCM.PN ---
Subjective - Date & Time of Evaluation Date of Evaluation: 08/22/17 Time of Evaluation: 07:10 - Subjective Subjective: Pt seen and examined, remains on T collar, comfortable, no complaints. Objective - Vital Signs/Intake and Output Vital Signs (last 24 hours): Temp Pulse Resp BP Pulse Ox 98 F 88 24 123/68 95 08/22/17 07:35 08/22/17 06:00 08/22/17 04:00 08/22/17 04:00 08/22/17 04:00 Intake and Output: 08/22/17 08/22/17 06:59 18:59 Output Total 1700 Balance -1700 - Medications Medications: Current Medications Acetaminophen (Tylenol 325mg Tab) 650 mg PO Q6H PRN PRN Reason: Pain, moderate (4-7) Last Admin: 08/20/17 09:49 Dose: 650 mg Albuterol/Ipratropium (Duoneb 3 Mg/0.5 Mg (3 Ml) Ud) 3 ml IH [id number] [facility] Last Admin: 08/22/17 08:46 Dose: 3 ml Albuterol/Ipratropium (Duoneb 3 Mg/0.5 Mg (3 Ml) Ud) 3 ml IH [id number] PRN PRN Reason: SOB Last Admin: 08/20/17 19:10 Dose: 3 ml Budesonide (Pulmicort Respules) 0.5 mg IH [id number] [facility] Calcium Carbonate (Caltrate) 600 mg PO BID [facility] Last Admin: 08/21/17 17:47 Dose: 600 mg Ergocalciferol (Drisdol 50,000 Intl Units Cap) 1 cap PO Q7D [facility] Last Admin: 08/19/17 13:43 Dose: 1 cap Ferrous Sulfate (Feosol Liq) 300 mg PO TID [facility] Last Admin: 08/21/17 17:47 Dose: 300 mg Heparin Sodium (Porcine) (Heparin) 5,000 units SC Q12 [facility] PRN Reason: Protocol Last Admin: 08/21/17 21:31 Dose: 5,000 units Insulin Human Lispro (Humalog Med) 0 units SC Q6H [facility] PRN Reason: Protocol Last Admin: 08/22/17 03:16 Dose: Not Given Levothyroxine Sodium (Synthroid) 50 mcg IVP DAILY [facility] Last Admin: 08/21/17 09:07 Dose: 50 mcg Multivitamins/Vitamin C (Multi-Delyn Liquid) 15 ml PO 0800 [facility] Last Admin: 08/21/17 08:40 Dose: 15 ml Nystatin (Nystop Topical Powder) 1 gm TOP DAILY [facility] Last Admin: 08/21/17 09:09 Dose: 1 pow Pantoprazole Sodium (Protonix Susp) 40 mg PO ACB [facility] Last Admin: 08/22/17 08:29 Dose: 40 mg Potassium Chloride (Potassium Chloride Oral Soln) 40 meq PO ONCE ONE Stop: 08/22/17 18:01 Zinc Sulfate (Zinc Sulfate 220 Mg Cap) 220 mg PO DAILY [facility] Last Admin: 08/21/17 09:09 Dose: 220 mg - Labs Labs: 08/22/17 05:30 08/22/17 05:30 PT 12.5 SECONDS (9.4-12.5) 08/17/17 05:45 INR 1.09 (0.93-1.08) H 08/17/17 05:45 APTT 27.7 Seconds (25.1-36.5) 08/17/17 05:45 - Constitutional Appears: Non-toxic - Eye Exam Eye Exam: Normal appearance - ENT Exam ENT Exam: Mucous Membranes Moist - Respiratory Exam Respiratory Exam: Clear to Ausculation Bilateral, NORMAL BREATHING PATTERN - Cardiovascular Exam Cardiovascular Exam: REGULAR RHYTHM, +S1, +S2 - GI/Abdominal Exam GI & Abdominal Exam: Soft, Normal Bowel Sounds - Extremities Exam Extremities Exam: Pedal Edema - Psychiatric Exam Psychiatric exam: Normal Mood Assessment and Plan - Assessment and Plan (Free Text) Assessment: Patient is 67yo female a/w hypercapnic resp failure, ventilatory dependent, now on T collar Currently afebrile, HD stable, comfortable, NAD, tolerating T collar >24h Renal function stable. Hypercapnic resp Failure, s/p trach Oliguria/renal Failure,improved Obesity COPD Recommend: - cont with Tcollar as tolerated, CPAP as needed - monitor urine output, BUN/Cr - Hold BILLY-I - BP control - follow up renal - feeds PO - FS control - GI ppx - DVT ppx - pending Ltach transfer
[2017-08-22] MEDS: Levothyroxine 100 mcg (0.1 mg) Inj IVP SCH (10:32)
[2017-08-22] MEDS: Ferrous Sulfate 300 mg/5 mL Liq UD PO SCH ×3 (10:33→17:50)
[2017-08-22] MEDS: Multi Vitamins 15 mL UD Oral Solution PO SCH (10:44)
--- NOTE | 2017-08-22 18:28 | CP.PCM.PN ---
Subjective - Date & Time of Evaluation Date of Evaluation: 08/22/17 Time of Evaluation: 17:45 - Subjective Subjective: Infectious Disease Follow Up: August 22, 2017 67 yo female presenting with 3 weeks of RLE ulceration, swelling and leaking from the wound as well as multiple falls in the past 3 weeks. The patient has an extensive medical history of asthma, arthritis, vitamin C deficiency, and possible thyroid disease. Draining RLE ulceration... cellulitis improved/resolved. Multiple chronic medical issues. Still with persistent dry cough. Otherwise stable. Mild erythema and excoriation of the folds in the abdomen and under the breasts. UTI with Klebsiella earlier in hospitalization but had treatment with Cipro that is now completed. Social Issues. The patient had respiratory distress with no improvement from BiPAP. Patient required intubation and ventilation. Transferred to MICU for further care. The patient was started on Zyvox and Aztreonam IV. Patient had a positive C. Diff antigen but negative toxin. Remains ventilated today. Appears stable. Chest X-ray not showing new findings. No leukocytosis. Cultures pending... so far negative. Patient unable to be weaned from ventilator. Supportive care. No fevers or leukocytosis. First two Procalcitonin equivocal. The patient had hypothermia ranging from 93.0 F starting from two days ago. Temperature did rise back up to 99.0 F and has been hovering around 97.7 F. Rechecking procalcitonin... now at 1.49. Difficulty from weaning from the ventilator. Patient is opening eyes and tracking now. Creatinine has been improving and is down to 0.9 from 1.1 from 1.2 from 1.3 from 1.5 from 2.0 now. Mild elevation in WBC to 11. Open tracheostomy done 08/17/2017. Failed ventilator weaning during this hospitalization. Recent repeat C. Diff negative for toxin and antigen. Patient has completed antibiotic regimens and is off antibiotics at this time. Patient is awake and alert. So far stable. Objective - Vital Signs/Intake and Output Vital Signs (last 24 hours): Temp Pulse Resp BP Pulse Ox 98.4 F 96 H 24 123/68 95 08/22/17 16:00 08/22/17 17:46 08/22/17 04:00 08/22/17 04:00 08/22/17 04:00 Intake and Output: 08/22/17 08/22/17 06:59 18:59 Intake Total 300 Output Total 1700 1550 Balance -1700 -1250 - Medications Medications: Current Medications Acetaminophen (Tylenol 325mg Tab) 650 mg PO Q6H PRN PRN Reason: Pain, moderate (4-7) Last Admin: 08/20/17 09:49 Dose: 650 mg Albuterol/Ipratropium (Duoneb 3 Mg/0.5 Mg (3 Ml) Ud) 3 ml IH [id number] [facility] Last Admin: 08/22/17 14:00 Dose: 3 ml Albuterol/Ipratropium (Duoneb 3 Mg/0.5 Mg (3 Ml) Ud) 3 ml IH [id number] PRN PRN Reason: SOB Last Admin: 08/20/17 19:10 Dose: 3 ml Budesonide (Pulmicort Respules) 0.5 mg IH [id number] [facility] Calcium Carbonate (Caltrate) 600 mg PO BID [facility] Last Admin: 08/22/17 17:51 Dose: 600 mg Ergocalciferol (Drisdol 50,000 Intl Units Cap) 1 cap PO Q7D [facility] Last Admin: 08/19/17 13:43 Dose: 1 cap Ferrous Sulfate (Feosol Liq) 300 mg PO TID [facility] Last Admin: 08/22/17 17:50 Dose: 300 mg Heparin Sodium (Porcine) (Heparin) 5,000 units SC Q12 [facility] PRN Reason: Protocol Last Admin: 08/22/17 10:33 Dose: 5,000 units Insulin Human Lispro (Humalog Med) 0 units SC Q6H [facility] PRN Reason: Protocol Last Admin: 08/22/17 17:49 Dose: Not Given Levothyroxine Sodium (Synthroid) 50 mcg IVP DAILY [facility] Last Admin: 08/22/17 10:32 Dose: 50 mcg Multivitamins/Vitamin C (Multi-Delyn Liquid) 15 ml PO 0800 [facility] Nystatin (Nystop Topical Powder) 1 gm TOP DAILY [facility] Last Admin: 08/22/17 10:00 Dose: 1 pow Pantoprazole Sodium (Protonix Susp) 40 mg PO ACB [facility] Last Admin: 08/22/17 08:29 Dose: 40 mg Zinc Sulfate (Zinc Sulfate 220 Mg Cap) 220 mg PO DAILY [facility] Last Admin: 08/22/17 10:33 Dose: 220 mg - Labs Labs: 08/22/17 05:30 08/22/17 05:30 PT 12.5 SECONDS (9.4-12.5) 08/17/17 05:45 INR 1.09 (0.93-1.08) H 08/17/17 05:45 APTT 27.7 Seconds (25.1-36.5) 08/17/17 05:45 - Constitutional Appears: Non-toxic, No Acute Distress, Chronically Ill - Head Exam Additional comments: trach and ventilated. - Eye Exam Eye Exam: EOMI, PERRL Pupil Exam: NORMAL ACCOMODATION, PERRL - ENT Exam ENT Exam: Mucous Membranes Moist, Normal External Ear Exam, TM's Normal Bilaterally - Neck Exam Neck Exam: Full ROM, Normal Inspection - Respiratory Exam Respiratory Exam: Decreased Breath Sounds, NORMAL BREATHING PATTERN. absent: Rales, Rhonchi, Wheezes - Cardiovascular Exam Cardiovascular Exam: REGULAR RHYTHM, RRR, +S1, +S2 - GI/Abdominal Exam GI & Abdominal Exam: Soft, Normal Bowel Sounds. absent: Distended, Tenderness - Extremities Exam Extremities Exam: Full ROM, Normal Inspection - Neurological Exam Neurological Exam: Alert, Awake, CN II-XII Intact, Oriented x3 - Psychiatric Exam Psychiatric exam: Normal Affect, Normal Mood - Skin Skin Exam: Intact, Normal Color Assessment and Plan - Assessment and Plan (Free Text) Assessment: 67 yo female with multiple medical issues with PCN allergy diagnosed as a teenager verified by an Cemetery Counselor. The patient with leukocytosis. Await cultures especially urine cultures. Diabetes and HTN history? Local wound care. Elevated ESR and C-reactive protein. Completed Vancomycin and Aztreonam for antibiotic coverage. UTI with E. coli sensitive to Azactam. Was on Vancomycin for cellulitis IV. For UTI for 5-7 days treatment... completed. Supportive care. Cellulitis appears improved. No new issues. Social issues currently. Homeless at this time. CT scan of chest done. No infiltrates seen. Afebrile the past 24 hours. Mild congestion noted in CT with small pulmonary effusions. No leukocytosis. Slightly elevated procalcitonin (0.66) which is undefined without stronger evidence for pneumonia. When encouraged, she is able to use the incentive spirometer without issues and ambulate with minimal difficulty. Repeat procalcitonin showing 0.71. UTI with Klebsiella. Sensitive to Cipro. Was on Cipro for 5 day course at 500mg PO BID. Completed the antibiotic course. Stable currently. No new issues. Off antibiotics at this time. Multiple social issues. Chronic cough still with periods of hacking. Complained of Vague mild general pains. During this hospitalization, the patient developed respiratory failure and required intubation. Started on Zyvox and Aztreonam IV. Will add Flagyl as well. No leukocytosis. Noted C. Diff with positive antigen but negative toxin. Supportive care. Remains intubated and ventilated. Cultures pending. C. Diff negative to date. No leukocytosis or fever reported. Essentially clear X-ray. Hypothermia episodes most of yesterday to this morning. Antibiotic courses completed. Noted gram positive cocci in most recent urine culture. Still awaiting identification. Supportive care. Patient did improve mentally. Still difficulty in weaning off respirator. She remains intubated. Failed weaning from vent. Tracheotomy performed 08/17/2017. Patient is awake and alert. Currently off antibiotics. Repeat C. Diff testing was negative. Remains off antibiotics at this time. Supportive care. Thank you for allowing me to participate in the care of the patient, we will follow with you
[2017-08-23] MEDS: Insulin Lispro (humaLOG) MEDIUM Coverage SC SCH ×3 (00:41→12:00)
[2017-08-23] MEDS: Albuterol-Ipratrop 3 mg / 0.5 (3 ml) UD IH SCH ×4 (03:10→20:45)
[2017-08-23 07:12] LABS: BASO # 0.03 K/mm3 (0.0-2.0); BASO % 0.4 % (0.0-3.0); EOS # 0.3 (0.0-0.7); EOS % 3.4 % (1.5-5.0); GRAN # 5.8 (1.4-6.5); GRAN % 71.4 % (50.0-68.0); HEMOGLOBIN 8.6 g/dL (12.0-16.0); LYMPH # 1.1 (1.2-3.4); LYMPH % 13.3 % (22.0-35.0); MEAN CELL VOLUME 86.4 fl (80.0-105.0); MEAN CORPUSCULAR HEMOGLOBIN 26.5 pg (25.0-35.0); MEAN CORPUSCULAR HGB CONC 30.7 g/dl (31.0-37.0); MEAN PLATELET VOLUME 8.7 fl (7.0-11.0); MONO # 0.9 (0.1-0.6); MONO % 11.5 % (1.0-6.0); RBC 3.24 10^6/uL (3.5-6.1); RED CELL DISTRIBUTION WIDTH 23.8 % (11.5-14.5); WHITE BLOOD COUNT 8.1 10^3/ul (4.5-11.0)
[2017-08-23 07:35] LABS: ALB/GLOB RATIO 0.9 (1.1-1.8); ALT/SGPT 25 U/L (7-56); AST/SGOT 33 U/L (14-36); BLOOD UREA NITROGEN 7 mg/dL (7-21); CALCIUM 7.8 mg/dL (8.4-10.5); GFR AFRICAN-AMERICAN > 60; GFR NON-AFRICAN AMERICAN > 60; MAGNESIUM 1.4 mg/dL (1.7-2.2)
[2017-08-23] MEDS ORDERED: Potassium Chloride 40 mEq/30 ml LIQ UD PO ONE ×3 (07:35→17:07)
[2017-08-23] MEDS: Budesonide 0.5 mg/2 ml Inhal Susp UD IH SCH ×2 (07:53→20:45)
[2017-08-23] MEDS ORDERED: Magnesium Sulfate 2 GM in Sodium Chloride 0.9% 100 ML IVPB ONE (07:58)
--- NOTE | 2017-08-23 08:02 | CP.CCUPN ---
<Dakota Phipps - Last Filed: 08/23/17 09:36> CCU Subjective - Physician Review Subjective (Free Text): Critical Care Progress note- Dr. Sutherland Patient seen and examined at bedside this AM. No acute events overnight. Nursing notes reviewed. s/p trach, Off PRVC, on Trach collar, tolerating well. ABD less distended s/p rectal tube. Responds to verbal commands. shakes head yes and no to questions. Complete ROS unobtainable + OOB 2 chair, +Flatus and BM. CCU Objective - Vital Signs / Intake & Output Vital Signs (Last 4 hours): Vital Signs Pulse Resp BP Pulse Ox 08/23/17 06:10 93 H 52 H 98 08/23/17 06:00 85 30 H 163/75 H 91 L 08/23/17 05:50 92 H 56 H 97 08/23/17 05:40 91 H 43 H 99 08/23/17 05:30 89 55 H 97 08/23/17 05:20 102 H 38 H 95 08/23/17 05:10 94 H 43 H 96 08/23/17 05:00 87 34 H 168/70 H 93 L 08/23/17 04:50 78 37 H 94 L 08/23/17 04:40 85 35 H 93 L 08/23/17 04:30 94 H 41 H 98 08/23/17 04:20 92 H 62 H 98 08/23/17 04:10 97 H 54 H 99 Intake and Output (Last 8hrs): Intake & Output 08/22/17 08/23/17 08/23/17 22:59 06:59 14:59 Intake Total 300 0 Output Total 1550 1200 Balance -1250 -1200 Intake: IV 100 0 Left Hand 0 right knuckle 100 0 Tube Feeding 200 Output: Gastric Amount 100 Right 100 Urine 850 1200 Urethral (Christensen) 850 1200 Stool 600 0 - Physical Exam Head: Positive for: Atraumatic, Normocephalic Pupils: Positive for: PERRL Extroacular Muscles: Positive for: EOMI Conjunctiva: Positive for: Normal Mouth: Positive for: Moist Mucous Membranes Pharnyx: Positive for: Normal. Negative for: ERYTHEMA, EXUDATE, TONSILS ENLARGED Nose (External): Positive for: Atraumatic Nose (Internal): Positive for: Normal Inspection Neck: Positive for: Normal Range of Motion Respiratory/Chest: Positive for: Clear to Auscultation, Good Air Exchange, Other (On trach collar, OFF vent and PRVC). Negative for: Respiratory Distress , Accessory Muscle Use, Wheezes, Retracting, Rhonchi Cardiovascular: Positive for: Regular Rate and Rhythm, Normal S1, S2. Negative for: Murmurs Abdomen: Positive for: Normal Bowel Sounds, Other (NGT in place- feeds @ 40cc/hr ; rectal tube, help decompress bowel). Negative for: Tenderness, Distention, Peritoneal Signs Back: Positive for: Normal Inspection. Negative for: CVA Tenderness, Midline Tenderness Upper Extremity: Positive for: Normal Inspection, NORMAL PULSES, Capillary Refill < 2s. Negative for: Cyanosis, Edema, Erythema Lower Extremity: Positive for: NORMAL PULSES, Swelling, Capillary Refill < 2 s. Negative for: Edema, CALF TENDERNESS Neurological: Positive for: GCS=15, Motor Func Grossly Intact, Normal Sensory Function Skin: Positive for: Warm, Dry, Normal Color. Negative for: Rashes Psychiatric: Positive for: Alert, Oriented x 3 - Medications Active Medications: Active Medications Generic Name Dose Route Start Last Admin Trade Name Freq PRN Reason Stop Dose Admin Acetaminophen 650 mg 08/20/17 09:27 08/20/17 09:49 Tylenol 325mg Tab PO 650 mg Q6H PRN Administration Pain, moderate (4-7) Albuterol/Ipratropium 3 ml 08/15/17 11:36 08/23/17 07:53 Duoneb 3 Mg/0.5 Mg (3 Ml) Ud IH 3 ml [id number] ESCOBAR Administration Albuterol/Ipratropium 3 ml 08/18/17 09:22 08/20/17 19:10 Duoneb 3 Mg/0.5 Mg (3 Ml) Ud IH 3 ml [id number] PRN Administration SOB Budesonide 0.5 mg 08/22/17 20:00 08/23/17 07:53 Pulmicort Respules IH 0.5 mg [id number] ESCOBAR Administration Calcium Carbonate 600 mg 08/18/17 10:00 08/22/17 17:51 Caltrate PO 600 mg BID ESCOBAR Administration Ergocalciferol 1 cap 08/12/17 13:30 08/19/17 13:43 Drisdol 50,000 Intl Units Cap PO 1 cap Q7D ESCOBAR Administration Ferrous Sulfate 300 mg 08/16/17 10:00 08/22/17 17:50 Feosol Liq PO 300 mg TID ESCOBAR Administration Heparin Sodium (Porcine) 5,000 units 08/18/17 10:00 08/22/17 21:18 Heparin SC 5,000 units Q12 ESCOBAR Administration Protocol Magnesium Sulfate 2 gm/ Sodium 104 mls @ 102 mls/hr 08/23/17 07:58 Chloride IVPB 08/23/17 08:59 ONCE ONE Insulin Human Lispro 0 units 08/14/17 18:00 08/23/17 06:24 Humalog Med SC Not Given Q6H ESCOBAR Protocol Levothyroxine Sodium 50 mcg 08/11/17 10:00 08/22/17 10:32 Synthroid IVP 50 mcg DAILY ESCOBAR Administration Multivitamins/Vitamin C 15 ml 08/23/17 08:00 Multi-Delyn Liquid PO 0800 ESCOBAR Nystatin 1 gm 08/17/17 10:00 08/22/17 10:00 Nystop Topical Powder TOP 1 pow DAILY ESCOBAR Administration Pantoprazole Sodium 40 mg 08/19/17 07:30 08/22/17 08:29 Protonix Susp PO 40 mg ACB ESCOBAR Administration Zinc Sulfate 220 mg 06/15/17 14:30 08/22/17 10:33 Zinc Sulfate 220 Mg Cap PO 220 mg DAILY ESCOBAR Administration - Patient Studies Lab Studies: Lab Studies 08/23/17 08/23/17 08/23/17 Range/Units 06:30 06:30 05:36 WBC 8.1 (4.5-11.0) 10^3/ul RBC 3.24 L (3.5-6.1) 10^6/uL Hgb 8.6 L (12.0-16.0) g/dL Hct 28.0 L (36.0-48.0) % MCV 86.4 (80.0-105.0) fl MCH 26.5 (25.0-35.0) pg MCHC 30.7 L (31.0-37.0) g/dl RDW 23.8 H (11.5-14.5) % Plt Count 311 (120.0-450.0) 10^3/uL MPV 8.7 (7.0-11.0) fl Gran % 71.4 H (50.0-68.0) % Lymph % (Auto) 13.3 L (22.0-35.0) % [place] % (Auto) 11.5 H (1.0-6.0) % Eos % (Auto) 3.4 (1.5-5.0) % Baso % (Auto) 0.4 (0.0-3.0) % Gran # 5.80 (1.4-6.5) Lymph # 1.1 L (1.2-3.4) [place] # 0.9 H (0.1-0.6) Eos # 0.3 (0.0-0.7) Baso # 0.03 (0.0-2.0) K/mm3 Sodium 142 (132-148) mmol/L Potassium 2.8 L* (3.6-5.0) mmol/L Chloride 101 (98-107) mmol/L Carbon Dioxide 29 (21-33) mmol/L Anion Gap 14 (10-20) BUN 7 (7-21) mg/dL Creatinine 0.8 (0.7-1.2) mg/dl Est GFR ( Amer) > 60 Est GFR (Non-Af Amer) > 60 POC Glucose (mg/dL) 83 (65-110) mg/dL Random Glucose 96 (70-110) mg/dL Calcium 7.8 L (8.4-10.5) mg/dL Magnesium 1.4 L (1.7-2.2) mg/dL Total Bilirubin 0.4 (0.2-1.3) mg/dL AST 33 (14-36) U/L ALT 25 (7-56) U/L Alkaline Phosphatase 71 (38-126) U/L Total Protein 6.4 (5.8-8.3) g/dL Albumin 3.0 (3.0-4.8) g/dL Globulin 3.4 gm/dL Albumin/Globulin Ratio 0.9 L (1.1-1.8) 25-OH Vitamin D Total (30.0-100.0) NG/ML 08/23/17 08/23/17 08/22/17 Range/Units 02:07 00:09 15:56 WBC (4.5-11.0) 10^3/ul RBC (3.5-6.1) 10^6/uL Hgb (12.0-16.0) g/dL Hct (36.0-48.0) % MCV (80.0-105.0) fl MCH (25.0-35.0) pg MCHC (31.0-37.0) g/dl RDW (11.5-14.5) % Plt Count (120.0-450.0) 10^3/uL MPV (7.0-11.0) fl Gran % (50.0-68.0) % Lymph % (Auto) (22.0-35.0) % [place] % (Auto) (1.0-6.0) % Eos % (Auto) (1.5-5.0) % Baso % (Auto) (0.0-3.0) % Gran # (1.4-6.5) Lymph # (1.2-3.4) [place] # (0.1-0.6) Eos # (0.0-0.7) Baso # (0.0-2.0) K/mm3 Sodium (132-148) mmol/L Potassium (3.6-5.0) mmol/L Chloride (98-107) mmol/L Carbon Dioxide (21-33) mmol/L Anion Gap (10-20) BUN (7-21) mg/dL Creatinine (0.7-1.2) mg/dl Est GFR ( Amer) Est GFR (Non-Af Amer) POC Glucose (mg/dL) 82 78 82 (65-110) mg/dL Random Glucose (70-110) mg/dL Calcium (8.4-10.5) mg/dL Magnesium (1.7-2.2) mg/dL Total Bilirubin (0.2-1.3) mg/dL AST (14-36) U/L ALT (7-56) U/L Alkaline Phosphatase (38-126) U/L Total Protein (5.8-8.3) g/dL Albumin (3.0-4.8) g/dL Globulin gm/dL Albumin/Globulin Ratio (1.1-1.8) 25-OH Vitamin D Total (30.0-100.0) NG/ML 08/22/17 08/22/17 Range/Units 10:48 05:30 WBC (4.5-11.0) 10^3/ul RBC (3.5-6.1) 10^6/uL Hgb (12.0-16.0) g/dL Hct (36.0-48.0) % MCV (80.0-105.0) fl MCH (25.0-35.0) pg MCHC (31.0-37.0) g/dl RDW (11.5-14.5) % Plt Count (120.0-450.0) 10^3/uL MPV (7.0-11.0) fl Gran % (50.0-68.0) % Lymph % (Auto) (22.0-35.0) % [place] % (Auto) (1.0-6.0) % Eos % (Auto) (1.5-5.0) % Baso % (Auto) (0.0-3.0) % Gran # (1.4-6.5) Lymph # (1.2-3.4) [place] # (0.1-0.6) Eos # (0.0-0.7) Baso # (0.0-2.0) K/mm3 Sodium (132-148) mmol/L Potassium (3.6-5.0) mmol/L Chloride (98-107) mmol/L Carbon Dioxide (21-33) mmol/L Anion Gap (10-20) BUN (7-21) mg/dL Creatinine (0.7-1.2) mg/dl Est GFR ( Amer) Est GFR (Non-Af Amer) POC Glucose (mg/dL) 80 (65-110) mg/dL Random Glucose (70-110) mg/dL Calcium (8.4-10.5) mg/dL Magnesium (1.7-2.2) mg/dL Total Bilirubin (0.2-1.3) mg/dL AST (14-36) U/L ALT (7-56) U/L Alkaline Phosphatase (38-126) U/L Total Protein (5.8-8.3) g/dL Albumin (3.0-4.8) g/dL Globulin gm/dL Albumin/Globulin Ratio (1.1-1.8) 25-OH Vitamin D Total 15.0 L (30.0-100.0) NG/ML Laboratory Results - last 24 hr 08/22/17 08/22/17 08/22/17 05:30 10:48 15:56 WBC RBC Hgb Hct MCV MCH MCHC RDW Plt Count MPV Gran % Lymph % (Auto) [place] % (Auto) Eos % (Auto) Baso % (Auto) Gran # Lymph # [place] # Eos # Baso # Sodium Potassium Chloride Carbon Dioxide Anion Gap BUN Creatinine Est GFR ( Amer) Est GFR (Non-Af Amer) POC Glucose (mg/dL) 80 82 Random Glucose Calcium Magnesium Total Bilirubin AST ALT Alkaline Phosphatase Total Protein Albumin Globulin Albumin/Globulin Ratio 25-OH Vitamin D Total 15.0 L 08/23/17 08/23/17 08/23/17 00:09 02:07 05:36 WBC RBC Hgb Hct MCV MCH MCHC RDW Plt Count MPV Gran % Lymph % (Auto) [place] % (Auto) Eos % (Auto) Baso % (Auto) Gran # Lymph # [place] # Eos # Baso # Sodium Potassium Chloride Carbon Dioxide Anion Gap BUN Creatinine Est GFR ( Amer) Est GFR (Non-Af Amer) POC Glucose (mg/dL) 78 82 83 Random Glucose Calcium Magnesium Total Bilirubin AST ALT Alkaline Phosphatase Total Protein Albumin Globulin Albumin/Globulin Ratio 25-OH Vitamin D Total 08/23/17 08/23/17 06:30 06:30 WBC 8.1 RBC 3.24 L Hgb 8.6 L Hct 28.0 L MCV 86.4 MCH 26.5 MCHC 30.7 L RDW 23.8 H Plt Count 311 MPV 8.7 Gran % 71.4 H Lymph % (Auto) 13.3 L [place] % (Auto) 11.5 H Eos % (Auto) 3.4 Baso % (Auto) 0.4 Gran # 5.80 Lymph # 1.1 L [place] # 0.9 H Eos # 0.3 Baso # 0.03 Sodium 142 Potassium 2.8 L* Chloride 101 Carbon Dioxide 29 Anion Gap 14 BUN 7 Creatinine 0.8 Est GFR ( Amer) > 60 Est GFR (Non-Af Amer) > 60 POC Glucose (mg/dL) Random Glucose 96 Calcium 7.8 L Magnesium 1.4 L Total Bilirubin 0.4 AST 33 ALT 25 Alkaline Phosphatase 71 Total Protein 6.4 Albumin 3.0 Globulin 3.4 Albumin/Globulin Ratio 0.9 L 25-OH Vitamin D Total Fingerstick Blood Sugar Results: 86 Assessment/Plan - Assessment and Plan (Free Text) Assessment: 67F hypercapnic respiratory failure, obesity, COPD, renal failure-improved, ventilator dependent respiratory failure intubated on 08/06/17. s/p Trach on . On Tube feeds started for nutrition. Off sedation and pressors. Currently AAOx3. Currently on trach collar, doing well at this time. Renal function stable. Currently afebrile, hemodynamically stable, in no acute distress. Plan: Neuro: Pt awake, alert responds to verbal stimuli , follows commands and moves extremities. Cardio: hemodynamically stable keep MAP > 65 Pulm: Off PRVC on Trach collar saturating well Chest physiotherapy Suction q4h OOB to chair with physical therapy Pulmonary toilet conservative fluid management GI: currently on tube feeds residual < 100 Feeds @ 40cc/hr Protonix 40mg ivp qd Monitor BM Plan for feeding next week w/ specialized tracheostomy cuff Renal/Electrolytes: Good urine output; Monitor Urine output and BUN/Cr CATE improving replete electrolytes PRN Hold BILLY-I Replete K and Mg PRN Endo: maintain euglycemia RISS medium Accuchecks Heme: dvt ppx: Hep subQ ID: C Diff antigen and toxin negative 08/16 urine culture gram + cocci 08/10 urine culture +Klebsiella pna 07/05 C. Diff antigen positive and toxin negative 08/08 blood culture final negative x 2 08/10 and 07/05/[address] Montero; No abx needed at this time Pending LTac transfer discussed with Dr. Sutherland Critical Care attending Dakota Phipps PGY1 <Ruddy Sutherland - Last Filed: 08/23/17 10:19> CCU Objective - Vital Signs / Intake & Output Vital Signs (Last 4 hours): Vital Signs Pulse Resp BP Pulse Ox 08/23/17 09:20 78 45 H 96 08/23/17 09:10 92 H 50 H 98 08/23/17 09:00 100 H 133 H 207/92 H 86 L 08/23/17 08:50 94 H 50 H 98 08/23/17 08:40 94 H 33 H 98 08/23/17 08:30 85 36 H 98 08/23/17 08:20 81 32 H 98 08/23/17 08:10 93 H 49 H 99 08/23/17 08:00 89 33 H 183/78 H 96 08/23/17 07:50 82 69 H 98 08/23/17 07:40 73 46 H 97 08/23/17 07:30 81 53 H 96 08/23/17 07:20 82 39 H 97 08/23/17 07:10 79 50 H 96 08/23/17 07:00 90 47 H 176/94 H 95 08/23/17 06:50 88 48 H 99 08/23/17 06:40 87 50 H 97 08/23/17 06:30 79 19 95 08/23/17 06:20 82 52 H 95 Intake and Output (Last 8hrs): Intake & Output 08/22/17 08/23/17 08/23/17 22:59 06:59 14:59 Intake Total 300 0 Output Total 1550 1200 Balance -1250 -1200 Intake: IV 100 0 Left Hand 0 right knuckle 100 0 Tube Feeding 200 Output: Gastric Amount 100 Right 100 Urine 850 1200 Urethral (Christensen) 850 1200 Stool 600 0 - Medications Active Medications: Active Medications Generic Name Dose Route Start Last Admin Trade Name Freq PRN Reason Stop Dose Admin Acetaminophen 650 mg 08/20/17 09:27 08/20/17 09:49 Tylenol 325mg Tab PO 650 mg Q6H PRN Administration Pain, moderate (4-7) Albuterol/Ipratropium 3 ml 08/15/17 11:36 08/23/17 07:53 Duoneb 3 Mg/0.5 Mg (3 Ml) Ud IH 3 ml [id number] ESCOBAR Administration Albuterol/Ipratropium 3 ml 08/18/17 09:22 08/20/17 19:10 Duoneb 3 Mg/0.5 Mg (3 Ml) Ud IH 3 ml [id number] PRN Administration SOB Budesonide 0.5 mg 08/22/17 20:00 08/23/17 07:53 Pulmicort Respules IH 0.5 mg [id number] ESCOBAR Administration Calcium Carbonate 600 mg 08/18/17 10:00 08/23/17 09:50 Caltrate PO 600 mg BID ESCOBAR Administration Ergocalciferol 1 cap 08/12/17 13:30 08/19/17 13:43 Drisdol 50,000 Intl Units Cap PO 1 cap Q7D ESCOBAR Administration Ferrous Sulfate 300 mg 08/16/17 10:00 08/23/17 09:49 Feosol Liq PO 300 mg TID ESCOBAR Administration Heparin Sodium (Porcine) 5,000 units 08/18/17 10:00 08/23/17 09:49 Heparin SC 5,000 units Q12 ESCOBAR Administration Protocol Insulin Human Lispro 0 units 08/14/17 18:00 08/23/17 06:24 Humalog Med SC Not Given Q6H ESCOBAR Protocol Levothyroxine Sodium 50 mcg 08/11/17 10:00 08/23/17 09:49 Synthroid IVP 50 mcg DAILY ESCOBAR Administration Multivitamins/Vitamin C 15 ml 08/23/17 08:00 08/23/17 09:48 Multi-Delyn Liquid PO 15 ml 0800 ESCOBAR Administration Nystatin 1 gm 08/17/17 10:00 08/22/17 10:00 Nystop Topical Powder TOP 1 pow DAILY ESCOBAR Administration Pantoprazole Sodium 40 mg 08/19/17 07:30 08/23/17 09:49 Protonix Susp PO 40 mg ACB ESCOBAR Administration Phenol/Menthol 0 ml 08/23/17 08:12 08/23/17 09:51 Phenaseptic 1.4% Throat [place] 1 spr Q2H PRN Administration Sore Throat Zinc Sulfate 220 mg 06/15/17 14:30 08/23/17 09:50 Zinc Sulfate 220 Mg Cap PO 220 mg DAILY ESCOBAR Administration - Patient Studies Lab Studies: Lab Studies 08/23/17 08/23/17 08/23/17 Range/Units 06:30 06:30 05:36 WBC 8.1 (4.5-11.0) 10^3/ul RBC 3.24 L (3.5-6.1) 10^6/uL Hgb 8.6 L (12.0-16.0) g/dL Hct 28.0 L (36.0-48.0) % MCV 86.4 (80.0-105.0) fl MCH 26.5 (25.0-35.0) pg MCHC 30.7 L (31.0-37.0) g/dl RDW 23.8 H (11.5-14.5) % Plt Count 311 (120.0-450.0) 10^3/uL MPV 8.7 (7.0-11.0) fl Gran % 71.4 H (50.0-68.0) % Lymph % (Auto) 13.3 L (22.0-35.0) % [place] % (Auto) 11.5 H (1.0-6.0) % Eos % (Auto) 3.4 (1.5-5.0) % Baso % (Auto) 0.4 (0.0-3.0) % Gran # 5.80 (1.4-6.5) Lymph # 1.1 L (1.2-3.4) [place] # 0.9 H (0.1-0.6) Eos # 0.3 (0.0-0.7) Baso # 0.03 (0.0-2.0) K/mm3 Sodium 142 (132-148) mmol/L Potassium 2.8 L* (3.6-5.0) mmol/L Chloride 101 (98-107) mmol/L Carbon Dioxide 29 (21-33) mmol/L Anion Gap 14 (10-20) BUN 7 (7-21) mg/dL Creatinine 0.8 (0.7-1.2) mg/dl Est GFR ( Amer) > 60 Est GFR (Non-Af Amer) > 60 POC Glucose (mg/dL) 83 (65-110) mg/dL Random Glucose 96 (70-110) mg/dL Calcium 7.8 L (8.4-10.5) mg/dL Magnesium 1.4 L (1.7-2.2) mg/dL Total Bilirubin 0.4 (0.2-1.3) mg/dL AST 33 (14-36) U/L ALT 25 (7-56) U/L Alkaline Phosphatase 71 (38-126) U/L Total Protein 6.4 (5.8-8.3) g/dL Albumin 3.0 (3.0-4.8) g/dL Globulin 3.4 gm/dL Albumin/Globulin Ratio 0.9 L (1.1-1.8) 25-OH Vitamin D Total (30.0-100.0) NG/ML 08/23/17 08/23/17 08/22/17 Range/Units 02:07 00:09 15:56 WBC (4.5-11.0) 10^3/ul RBC (3.5-6.1) 10^6/uL Hgb (12.0-16.0) g/dL Hct (36.0-48.0) % MCV (80.0-105.0) fl MCH (25.0-35.0) pg MCHC (31.0-37.0) g/dl RDW (11.5-14.5) % Plt Count (120.0-450.0) 10^3/uL MPV (7.0-11.0) fl Gran % (50.0-68.0) % Lymph % (Auto) (22.0-35.0) % [place] % (Auto) (1.0-6.0) % Eos % (Auto) (1.5-5.0) % Baso % (Auto) (0.0-3.0) % Gran # (1.4-6.5) Lymph # (1.2-3.4) [place] # (0.1-0.6) Eos # (0.0-0.7) Baso # (0.0-2.0) K/mm3 Sodium (132-148) mmol/L Potassium (3.6-5.0) mmol/L Chloride (98-107) mmol/L Carbon Dioxide (21-33) mmol/L Anion Gap (10-20) BUN (7-21) mg/dL Creatinine (0.7-1.2) mg/dl Est GFR ( Amer) Est GFR (Non-Af Amer) POC Glucose (mg/dL) 82 78 82 (65-110) mg/dL Random Glucose (70-110) mg/dL Calcium (8.4-10.5) mg/dL Magnesium (1.7-2.2) mg/dL Total Bilirubin (0.2-1.3) mg/dL AST (14-36) U/L ALT (7-56) U/L Alkaline Phosphatase (38-126) U/L Total Protein (5.8-8.3) g/dL Albumin (3.0-4.8) g/dL Globulin gm/dL Albumin/Globulin Ratio (1.1-1.8) 25-OH Vitamin D Total (30.0-100.0) NG/ML 08/22/17 08/22/17 Range/Units 10:48 05:30 WBC (4.5-11.0) 10^3/ul RBC (3.5-6.1) 10^6/uL Hgb (12.0-16.0) g/dL Hct (36.0-48.0) % MCV (80.0-105.0) fl MCH (25.0-35.0) pg MCHC (31.0-37.0) g/dl RDW (11.5-14.5) % Plt Count (120.0-450.0) 10^3/uL MPV (7.0-11.0) fl Gran % (50.0-68.0) % Lymph % (Auto) (22.0-35.0) % [place] % (Auto) (1.0-6.0) % Eos % (Auto) (1.5-5.0) % Baso % (Auto) (0.0-3.0) % Gran # (1.4-6.5) Lymph # (1.2-3.4) [place] # (0.1-0.6) Eos # (0.0-0.7) Baso # (0.0-2.0) K/mm3 Sodium (132-148) mmol/L Potassium (3.6-5.0) mmol/L Chloride (98-107) mmol/L Carbon Dioxide (21-33) mmol/L Anion Gap (10-20) BUN (7-21) mg/dL Creatinine (0.7-1.2) mg/dl Est GFR ( Amer) Est GFR (Non-Af Amer) POC Glucose (mg/dL) 80 (65-110) mg/dL Random Glucose (70-110) mg/dL Calcium (8.4-10.5) mg/dL Magnesium (1.7-2.2) mg/dL Total Bilirubin (0.2-1.3) mg/dL AST (14-36) U/L ALT (7-56) U/L Alkaline Phosphatase (38-126) U/L Total Protein (5.8-8.3) g/dL Albumin (3.0-4.8) g/dL Globulin gm/dL Albumin/Globulin Ratio (1.1-1.8) 25-OH Vitamin D Total 15.0 L (30.0-100.0) NG/ML Laboratory Results - last 24 hr 08/22/17 08/22/17 08/22/17 05:30 10:48 15:56 WBC RBC Hgb Hct MCV MCH MCHC RDW Plt Count MPV Gran % Lymph % (Auto) [place] % (Auto) Eos % (Auto) Baso % (Auto) Gran # Lymph # [place] # Eos # Baso # Sodium Potassium Chloride Carbon Dioxide Anion Gap BUN Creatinine Est GFR ( Amer) Est GFR (Non-Af Amer) POC Glucose (mg/dL) 80 82 Random Glucose Calcium Magnesium Total Bilirubin AST ALT Alkaline Phosphatase Total Protein Albumin Globulin Albumin/Globulin Ratio 25-OH Vitamin D Total 15.0 L 08/23/17 08/23/17 08/23/17 00:09 02:07 05:36 WBC RBC Hgb Hct MCV MCH MCHC RDW Plt Count MPV Gran % Lymph % (Auto) [place] % (Auto) Eos % (Auto) Baso % (Auto) Gran # Lymph # [place] # Eos # Baso # Sodium Potassium Chloride Carbon Dioxide Anion Gap BUN Creatinine Est GFR ( Amer) Est GFR (Non-Af Amer) POC Glucose (mg/dL) 78 82 83 Random Glucose Calcium Magnesium Total Bilirubin AST ALT Alkaline Phosphatase Total Protein Albumin Globulin Albumin/Globulin Ratio 25-OH Vitamin D Total 08/23/17 08/23/17 06:30 06:30 WBC 8.1 RBC 3.24 L Hgb 8.6 L Hct 28.0 L MCV 86.4 MCH 26.5 MCHC 30.7 L RDW 23.8 H Plt Count 311 MPV 8.7 Gran % 71.4 H Lymph % (Auto) 13.3 L [place] % (Auto) 11.5 H Eos % (Auto) 3.4 Baso % (Auto) 0.4 Gran # 5.80 Lymph # 1.1 L [place] # 0.9 H Eos # 0.3 Baso # 0.03 Sodium 142 Potassium 2.8 L* Chloride 101 Carbon Dioxide 29 Anion Gap 14 BUN 7 Creatinine 0.8 Est GFR ( Amer) > 60 Est GFR (Non-Af Amer) > 60 POC Glucose (mg/dL) Random Glucose 96 Calcium 7.8 L Magnesium 1.4 L Total Bilirubin 0.4 AST 33 ALT 25 Alkaline Phosphatase 71 Total Protein 6.4 Albumin 3.0 Globulin 3.4 Albumin/Globulin Ratio 0.9 L 25-OH Vitamin D Total Assessment/Plan - Assessment and Plan (Free Text) Plan: Pt seen and examined, with resident on rounds, agree with note with following additions/exceptions: Patient is 67yo female a/w hypercapnic resp failure, ventilatory dependent, now on Trach collar Currently afebrile, HD stable, comfortable, NAD, tolerating Trach collar Renal function stable. Hypercapnic resp Failure, s/p trach on Trach collar Oliguria/renal Failure,improved Obesity COPD Recommend: - cont with Tcollar as tolerated, CPAP as needed - monitor urine output, BUN/Cr - Hold BILLY-I - BP control - follow up renal - feeds PO - speech swallow eval - FS control - GI ppx - DVT ppx - stable, transfer to floor - pending Ltach transfer
[2017-08-23] MEDS: Multi Vitamins 15 mL UD Oral Solution PO SCH (09:48)
[2017-08-23] MEDS: Ferrous Sulfate 300 mg/5 mL Liq UD PO SCH ×3 (09:49→18:00)
[2017-08-23] MEDS: Pantoprazole 40 mg Susp UD PO SCH (09:49)
[2017-08-23] MEDS: Levothyroxine 100 mcg (0.1 mg) Inj IVP SCH (09:49)
[2017-08-23] MEDS: Phenol Topical 1.4% Throat Spray (180 ml) MT PRN (09:51)
[2017-08-23] MEDS: Nystatin 100,000 Units/gm Topical Pow(15 gm) TOP SCH (10:00)
--- NOTE | 2017-08-23 10:49 | CP.PCM.PN ---
<Shan Zepeda - Last Filed: 08/23/17 19:22> Subjective - Date & Time of Evaluation Date of Evaluation: 08/23/17 Time of Evaluation: 06:00 - Subjective Subjective: Patient seen and evaluated bedside. No acute issues overnight. Patient states her NG tube is bothering her. No additional complaints at this time. Objective - Vital Signs/Intake and Output Vital Signs (last 24 hours): Temp Pulse Resp BP Pulse Ox 97.8 F 90 29 H 170/88 H 95 08/23/17 04:00 08/23/17 10:40 08/23/17 10:40 08/23/17 10:00 08/23/17 10:40 Intake and Output: 08/23/17 08/23/17 06:59 18:59 Intake Total 0 Output Total 1200 Balance -1200 - Medications Medications: Current Medications Acetaminophen (Tylenol 325mg Tab) 650 mg PO Q6H PRN PRN Reason: Pain, moderate (4-7) Last Admin: 08/20/17 09:49 Dose: 650 mg Albuterol/Ipratropium (Duoneb 3 Mg/0.5 Mg (3 Ml) Ud) 3 ml IH [id number] [facility] Last Admin: 08/23/17 07:53 Dose: 3 ml Albuterol/Ipratropium (Duoneb 3 Mg/0.5 Mg (3 Ml) Ud) 3 ml IH [id number] PRN PRN Reason: SOB Last Admin: 08/20/17 19:10 Dose: 3 ml Budesonide (Pulmicort Respules) 0.5 mg IH [id number] [facility] Last Admin: 08/23/17 07:53 Dose: 0.5 mg Calcium Carbonate (Caltrate) 600 mg PO BID [facility] Last Admin: 08/23/17 09:50 Dose: 600 mg Ergocalciferol (Drisdol 50,000 Intl Units Cap) 1 cap PO Q7D [facility] Last Admin: 08/19/17 13:43 Dose: 1 cap Ferrous Sulfate (Feosol Liq) 300 mg PO TID [facility] Last Admin: 08/23/17 09:49 Dose: 300 mg Heparin Sodium (Porcine) (Heparin) 5,000 units SC Q12 [facility] PRN Reason: Protocol Last Admin: 08/23/17 09:49 Dose: 5,000 units Insulin Human Lispro (Humalog Med) 0 units SC Q6H [facility] PRN Reason: Protocol Last Admin: 08/23/17 06:24 Dose: Not Given Levothyroxine Sodium (Synthroid) 50 mcg IVP DAILY [facility] Last Admin: 08/23/17 09:49 Dose: 50 mcg Multivitamins/Vitamin C (Multi-Delyn Liquid) 15 ml PO 0800 [facility] Last Admin: 08/23/17 09:48 Dose: 15 ml Nystatin (Nystop Topical Powder) 1 gm TOP DAILY [facility] Last Admin: 08/22/17 10:00 Dose: 1 pow Pantoprazole Sodium (Protonix Susp) 40 mg PO ACB [facility] Last Admin: 08/23/17 09:49 Dose: 40 mg Phenol/Menthol (Phenaseptic 1.4% Throat [place]) 0 ml MT Q2H PRN PRN Reason: Sore Throat Last Admin: 08/23/17 09:51 Dose: 1 spr Zinc Sulfate (Zinc Sulfate 220 Mg Cap) 220 mg PO DAILY [facility] Last Admin: 08/23/17 09:50 Dose: 220 mg - Labs Labs: 08/23/17 06:30 08/23/17 06:30 PT 12.5 SECONDS (9.4-12.5) 08/17/17 05:45 INR 1.09 (0.93-1.08) H 08/17/17 05:45 APTT 27.7 Seconds (25.1-36.5) 08/17/17 05:45 - Constitutional Appears: No Acute Distress - Head Exam Head Exam: ATRAUMATIC - Eye Exam Eye Exam: EOMI, Normal appearance - ENT Exam ENT Exam: Mucous Membranes Moist - Neck Exam Neck Exam: absent: Lymphadenopathy, Tenderness - Respiratory Exam Respiratory Exam: Clear to Ausculation Bilateral, NORMAL BREATHING PATTERN - Cardiovascular Exam Cardiovascular Exam: REGULAR RHYTHM, +S1, +S2 - GI/Abdominal Exam GI & Abdominal Exam: Distended, Soft Additional comments: decreased distension - Extremities Exam Additional comments: dressing on heels bilaterally - Neurological Exam Neurological Exam: Alert, Awake, Oriented x3 Assessment and Plan - Assessment and Plan (Free Text) Assessment: Patient is a 67 year old female with history of asthma, arthritis, anemia, and obesity who was originally admitted for right lower extremity cellulitis and UTI. During her hospitalization course she developed acute hypercapneic respiratory failure secondary to asthma/RA airway disease/kyphoscoliosis in setting of cdiff colitis. s/p trach. Patient is alert and awake. Currently afebrile, hemodynamically stable, on NGT feeds. Plan: Hypercapnic Respiratory Failure-resolved - patient Alert and awake - patient is status post trach - xray shows NG tube in sufficient area - continue to monitor respiratory status - continue with duonebs, pulmicort - Weaning protocol - Chest physiotherapy - Suction q4h - OOB to chair with physical therapy - Pulmonary toilet - conservative fluid management -speech and swallow evaluation chronic Abdominal Distension - CT Abdomen Pelvis with PO and IV Contrast (07/18):Interstitial and airspace disease in the lung bases; mild cardiomegaly and atherosclerotic disease; fatty liver; gallstones; mild ileus, no obstruction; constipation with fecal impaction - repeat CT abd on 08/20 showed Fluid-filled, dilated colon, with air fluid levels. Findings consistent with rapid small bowel transit, Nonspecific enteritis, Small bowel is decompressed. No evidence of small bowel obstruction. - abdominal flat plate-No acute changes or findings - rectal tube was placed, draining brown fluid, abd soft, less distension - will continue to monitor - Plan for feeding next week with specialized tracheostomy cuff Normocytic anemia - hgb 8.6 this morning - consider transfuse if Hbg < 7.0 - continue feosol - Monitor daily Hypokalemia - low 2.8, repleted - possibly due to diarrhea, liquid stool from rectal tube - will continue to monitor correct as needed -CDIFF pending Hypocalcemia - ca 7.8 , repleted - continue calcium carbonate 600mg BID - continue to monitor replete as needed Hypomagnesia - 1.4 this am, repleted - will repeat in AM - continue to monitor, correct as needed Acute Kidney injury - improving, returned to baseline - Monitor and maintain MAP > 65 - Monitor Input/Output, daily weights and renal function with basic metabolic panel - supplement electrolytes as needed - weekly vitamin D supplements - hold BILLY/ARB HTN - controlled - BP reviewed, trended, and appreciated - hold zestril due to CATE Cdiff colitis-resolved - completed course of flagyl h/o hypothyriodism - continue synthroid 50mcg daily Prophylaxis: - GI ppx Protonix - DVT ppx: Heparin <Max Liriano - Last Filed: 08/24/17 13:34> Objective - Vital Signs/Intake and Output Vital Signs (last 24 hours): Temp Pulse Resp BP Pulse Ox 100.2 F H 94 H 24 150/73 98 08/24/17 08:00 08/24/17 11:10 08/24/17 11:10 08/24/17 11:00 08/24/17 11:10 Intake and Output: 08/24/17 08/24/17 06:59 18:59 Intake Total 580 Output Total 600 Balance -20 - Medications Medications: Current Medications Acetaminophen (Tylenol 325mg Tab) 650 mg PO Q6H PRN PRN Reason: Pain, moderate (4-7) Last Admin: 08/20/17 09:49 Dose: 650 mg Albuterol/Ipratropium (Duoneb 3 Mg/0.5 Mg (3 Ml) Ud) 3 ml IH [id number] [facility] Last Admin: 08/24/17 07:46 Dose: 3 ml Albuterol/Ipratropium (Duoneb 3 Mg/0.5 Mg (3 Ml) Ud) 3 ml IH [id number] PRN PRN Reason: SOB Last Admin: 08/20/17 19:10 Dose: 3 ml Budesonide (Pulmicort Respules) 0.5 mg IH [id number] [facility] Last Admin: 08/24/17 07:47 Dose: 0.5 mg Calcium Carbonate (Caltrate) 600 mg PO BID [facility] Last Admin: 08/24/17 09:09 Dose: 600 mg Ergocalciferol (Drisdol 50,000 Intl Units Cap) 1 cap PO Q7D [facility] Last Admin: 08/19/17 13:43 Dose: 1 cap Ferrous Sulfate (Feosol Liq) 300 mg PO TID [facility] Last Admin: 08/24/17 09:07 Dose: 300 mg Guaifenesin/Codeine Phosphate (Robitussin W/Codeine) 5 ml PO Q4H PRN PRN Reason: Cough and congestion Last Admin: 08/24/17 09:06 Dose: 5 ml Heparin Sodium (Porcine) (Heparin) 5,000 units SC Q12 [facility] PRN Reason: Protocol Last Admin: 08/23/17 21:39 Dose: 5,000 units Insulin Human Lispro (Humalog Med) 0 units SC Q6H [facility] PRN Reason: Protocol Last Admin: 08/24/17 06:23 Dose: Not Given Levothyroxine Sodium (Synthroid) 50 mcg IVP DAILY [facility] Last Admin: 08/24/17 09:07 Dose: 50 mcg Multivitamins/Vitamin C (Multi-Delyn Liquid) 15 ml PO 0800 [facility] Last Admin: 08/24/17 09:06 Dose: 15 ml Nystatin (Nystop Topical Powder) 1 gm TOP DAILY [facility] Last Admin: 08/23/17 10:00 Dose: 1 applic Nystatin (Mycostatin Oint) 0 gm TOP BID [facility] Pantoprazole Sodium (Protonix Susp) 40 mg PO ACB [facility] Last Admin: 08/24/17 09:08 Dose: 40 mg Phenol/Menthol (Phenaseptic 1.4% Throat [place]) 0 ml MT Q2H PRN PRN Reason: Sore Throat Last Admin: 08/23/17 09:51 Dose: 1 spr Potassium Phos/Sodium Phos (Neutra-Phos) 1 pkt PO TID [facility] Last Admin: 08/24/17 09:09 Dose: 1 pkt Vancomycin HCl (Vancocin 25 Mg/Ml (Oral Use)) 250 mg PO QID [facility] PRN Reason: Protocol Last Admin: 08/24/17 09:05 Dose: 250 mg Zinc Sulfate (Zinc Sulfate 220 Mg Cap) 220 mg PO DAILY [facility] Last Admin: 08/24/17 09:08 Dose: 220 mg - Labs Labs: 08/24/17 06:00 08/24/17 06:00 PT 12.5 SECONDS (9.4-12.5) 08/17/17 05:45 INR 1.09 (0.93-1.08) H 08/17/17 05:45 APTT 27.7 Seconds (25.1-36.5) 08/17/17 05:45 Attending/Attestation - Attestation I have fully participated in the care of the patient.: Yes I have reviewed all pertinent clinical information, including history, physical exam and plan: Yes Notes (Text): 08/24/17 13:31 Patient was seen and exaimned with medical claims examiner.Family is at bed side. 67yo female a/w hypercapnic resp failure, ventilatory dependent, now on Trach collar Patient is afebrile, not wheezing.She is tolerating Trach collar Patient is off antibiotics for Pneumonia and is off steroid. We will get swallow evaluation.May need PEG tube Acute renal failure has resolved.Creatinin is back to noprmal. Hypokalemia, Electrolyte are replaced, will follow up electrolyte. Prognosis is guarded.
--- NOTE | 2017-08-23 14:16 | RAD ---
HISTORY: SOB COMPARISON: 08/17/2017 FINDINGS: LUNGS: No active pulmonary disease. PLEURA: No significant pleural effusion identified, no pneumothorax apparent. CARDIOVASCULAR: Normal. OSSEOUS STRUCTURES: No significant abnormalities. VISUALIZED UPPER ABDOMEN: Normal. OTHER FINDINGS: None. IMPRESSION: Nasogastric tube in satisfactory position
[2017-08-23] MEDS ORDERED: Morphine 2 mg/ml ISec IVP ONE (15:06)
[2017-08-23] MEDS ORDERED: Morphine 5 MG/ML SYRINGE IVP ONE (16:45)
[2017-08-23] MEDS: guaiFENesin-Codeine 100-10mg/5ml Syrup (5 ml) UD PO PRN (16:54)
--- NOTE | 2017-08-23 18:52 | CP.PCM.PN ---
Subjective - Date & Time of Evaluation Date of Evaluation: 08/23/17 Time of Evaluation: 17:30 - Subjective Subjective: Infectious Disease Follow Up: August 23, 2017 67 yo female presenting with 3 weeks of RLE ulceration, swelling and leaking from the wound as well as multiple falls in the past 3 weeks. The patient has an extensive medical history of asthma, arthritis, vitamin C deficiency, and possible thyroid disease. Draining RLE ulceration... cellulitis improved/resolved. Multiple chronic medical issues. Still with persistent dry cough. Otherwise stable. Mild erythema and excoriation of the folds in the abdomen and under the breasts. UTI with Klebsiella earlier in hospitalization but had treatment with Cipro that is now completed. Social Issues. The patient had respiratory distress with no improvement from BiPAP. Patient required intubation and ventilation. Transferred to MICU for further care. The patient was started on Zyvox and Aztreonam IV. Patient had a positive C. Diff antigen but negative toxin. Remains ventilated today. Appears stable. Chest X-ray not showing new findings. No leukocytosis. Cultures pending... so far negative. Patient unable to be weaned from ventilator. Supportive care. No fevers or leukocytosis. First two Procalcitonin equivocal. The patient had hypothermia ranging from 93.0 F starting from two days ago. Temperature did rise back up to 99.0 F and has been hovering around 97.7 F. Rechecking procalcitonin... now at 1.49. Difficulty from weaning from the ventilator. Patient is opening eyes and tracking now. Creatinine has been improving and is down to 0.9 from 1.1 from 1.2 from 1.3 from 1.5 from 2.0 now. Mild elevation in WBC to 11. Open tracheostomy done 08/17/2017. Failed ventilator weaning during this hospitalization. Recent repeat C. Diff negative for toxin and antigen. Patient has completed antibiotic regimens and is off antibiotics at this time. Patient is awake and alert. So far stable. Still having diarrhea episodes. Objective - Vital Signs/Intake and Output Vital Signs (last 24 hours): Temp Pulse Resp BP Pulse Ox 98.8 F 85 18 128/66 96 08/23/17 11:38 08/23/17 15:30 08/23/17 15:30 08/23/17 15:00 08/23/17 15:30 Intake and Output: 08/23/17 08/23/17 06:59 18:59 Intake Total 0 465 Output Total 1200 1350 Balance -1200 -924 - Medications Medications: Current Medications Acetaminophen (Tylenol 325mg Tab) 650 mg PO Q6H PRN PRN Reason: Pain, moderate (4-7) Last Admin: 08/20/17 09:49 Dose: 650 mg Albuterol/Ipratropium (Duoneb 3 Mg/0.5 Mg (3 Ml) Ud) 3 ml IH [id number] [facility] Last Admin: 08/23/17 14:39 Dose: 3 ml Albuterol/Ipratropium (Duoneb 3 Mg/0.5 Mg (3 Ml) Ud) 3 ml IH [id number] PRN PRN Reason: SOB Last Admin: 08/20/17 19:10 Dose: 3 ml Budesonide (Pulmicort Respules) 0.5 mg IH [id number] [facility] Last Admin: 08/23/17 07:53 Dose: 0.5 mg Calcium Carbonate (Caltrate) 600 mg PO BID [facility] Last Admin: 08/23/17 17:43 Dose: 600 mg Ergocalciferol (Drisdol 50,000 Intl Units Cap) 1 cap PO Q7D [facility] Last Admin: 08/19/17 13:43 Dose: 1 cap Ferrous Sulfate (Feosol Liq) 300 mg PO TID [facility] Last Admin: 08/23/17 14:00 Dose: 300 mg Guaifenesin/Codeine Phosphate (Robitussin W/Codeine) 5 ml PO Q4H PRN PRN Reason: Cough and congestion Last Admin: 08/23/17 16:54 Dose: 5 ml Heparin Sodium (Porcine) (Heparin) 5,000 units SC Q12 [facility] PRN Reason: Protocol Last Admin: 08/23/17 09:49 Dose: 5,000 units Potassium Chloride (Potassium Chloride 10 Meq/100 Ml) 10 meq in 100 mls @ 50 mls/hr IVPB ONCE ONE Stop: 08/23/17 19:06 Last Admin: 08/23/17 17:43 Dose: 50 mls/hr Insulin Human Lispro (Humalog Med) 0 units SC Q6H [facility] PRN Reason: Protocol Last Admin: 08/23/17 12:00 Dose: Not Given Levothyroxine Sodium (Synthroid) 50 mcg IVP DAILY [facility] Last Admin: 08/23/17 09:49 Dose: 50 mcg Multivitamins/Vitamin C (Multi-Delyn Liquid) 15 ml PO 0800 [facility] Last Admin: 08/23/17 09:48 Dose: 15 ml Nystatin (Nystop Topical Powder) 1 gm TOP DAILY [facility] Last Admin: 08/23/17 10:00 Dose: 1 applic Nystatin (Mycostatin Oint) 0 gm TOP BID [facility] Pantoprazole Sodium (Protonix Susp) 40 mg PO ACB [facility] Last Admin: 08/23/17 09:49 Dose: 40 mg Phenol/Menthol (Phenaseptic 1.4% Throat [place]) 0 ml MT Q2H PRN PRN Reason: Sore Throat Last Admin: 08/23/17 09:51 Dose: 1 spr Vancomycin HCl (Vancocin 25 Mg/Ml (Oral Use)) 250 mg PO QID [facility] PRN Reason: Protocol Zinc Sulfate (Zinc Sulfate 220 Mg Cap) 220 mg PO DAILY [facility] Last Admin: 08/23/17 09:50 Dose: 220 mg - Labs Labs: 08/23/17 06:30 08/23/17 06:30 PT 12.5 SECONDS (9.4-12.5) 08/17/17 05:45 INR 1.09 (0.93-1.08) H 08/17/17 05:45 APTT 27.7 Seconds (25.1-36.5) 08/17/17 05:45 - Constitutional Appears: Non-toxic, No Acute Distress, Chronically Ill - Head Exam Additional comments: trach and ventilated. - Eye Exam Eye Exam: EOMI, PERRL Pupil Exam: NORMAL ACCOMODATION, PERRL - ENT Exam ENT Exam: Mucous Membranes Moist, Normal External Ear Exam, TM's Normal Bilaterally - Neck Exam Neck Exam: Full ROM, Normal Inspection - Respiratory Exam Respiratory Exam: Decreased Breath Sounds, NORMAL BREATHING PATTERN. absent: Rales, Rhonchi, Wheezes - Cardiovascular Exam Cardiovascular Exam: REGULAR RHYTHM, RRR, +S1, +S2 - GI/Abdominal Exam GI & Abdominal Exam: Soft, Normal Bowel Sounds. absent: Distended, Tenderness - Extremities Exam Extremities Exam: Full ROM, Normal Inspection - Neurological Exam Neurological Exam: Alert, Awake, CN II-XII Intact, Oriented x3 - Psychiatric Exam Psychiatric exam: Normal Affect, Normal Mood - Skin Skin Exam: Intact, Normal Color Assessment and Plan - Assessment and Plan (Free Text) Assessment: 67 yo female with multiple medical issues with PCN allergy diagnosed as a teenager verified by an Life Specialist. The patient with leukocytosis. Await cultures especially urine cultures. Diabetes and HTN history? Local wound care. Elevated ESR and C-reactive protein. Completed Vancomycin and Aztreonam for antibiotic coverage. UTI with E. coli sensitive to Azactam. Was on Vancomycin for cellulitis IV. For UTI for 5-7 days treatment... completed. Supportive care. Cellulitis appears improved. No new issues. Social issues currently. Homeless at this time. CT scan of chest done. No infiltrates seen. Afebrile the past 24 hours. Mild congestion noted in CT with small pulmonary effusions. No leukocytosis. Slightly elevated procalcitonin (0.66) which is undefined without stronger evidence for pneumonia. When encouraged, she is able to use the incentive spirometer without issues and ambulate with minimal difficulty. Repeat procalcitonin showing 0.71. UTI with Klebsiella. Sensitive to Cipro. Was on Cipro for 5 day course at 500mg PO BID. Completed the antibiotic course. Stable currently. No new issues. Off antibiotics at this time. Multiple social issues. Chronic cough still with periods of hacking. Complained of Vague mild general pains. During this hospitalization, the patient developed respiratory failure and required intubation. Started on Zyvox and Aztreonam IV. Will add Flagyl as well. No leukocytosis. Noted C. Diff with positive antigen but negative toxin. Supportive care. Remains intubated and ventilated. Cultures pending. C. Diff negative to date. No leukocytosis or fever reported. Essentially clear X-ray. Hypothermia episodes most of yesterday to this morning. Antibiotic courses completed. Noted gram positive cocci in most recent urine culture. Still awaiting identification. Supportive care. Patient did improve mentally. Still difficulty in weaning off respirator. She remains intubated. Failed weaning from vent. Tracheotomy performed 08/17/2017. Patient is awake and alert. Currently off antibiotics. Repeat C. Diff testing was negative. Remains off antibiotics at this time. Supportive care. Still with watery diarrhea despite C. diff testing being negative on multiple occasions. Thank you for allowing me to participate in the care of the patient, we will follow with you
[2017-08-23] MEDS: Vancomycin 25 MG/ML PO SCH (21:38)
[2017-08-23 22:06] LABS: BLOOD UREA NITROGEN 7 mg/dL (7-21); CALCIUM 7.9 mg/dL (8.4-10.5); GFR AFRICAN-AMERICAN > 60; GFR NON-AFRICAN AMERICAN > 60
[2017-08-24] MEDS: Albuterol-Ipratrop 3 mg / 0.5 (3 ml) UD IH SCH ×4 (03:15→19:56)
[2017-08-24] MEDS: Insulin Lispro (humaLOG) MEDIUM Coverage SC SCH ×4 (06:23→18:40)
--- NOTE | 2017-08-24 06:58 | CP.CCUPN ---
<Sneha Nick - Last Filed: 08/24/17 09:56> CCU Subjective - Physician Review Subjective (Free Text): 08/24/17 09:56 Patient seen and examined at bedside. No acute events overnight and patient was afebrile overnight as per nursing. Patient on pressure support overnight- will attempt trach collar this AM. NGT was changed and CXR this AM confirmed position. Rectal tube in place- patient is C. Diff positive. Christensen in place- making good urine. Responds to verbal commands. Shakes head yes and no to questions. Complete ROS unobtainable. CCU Objective - Vital Signs / Intake & Output Vital Signs (Last 4 hours): Vital Signs Temp Pulse Resp BP Pulse Ox 08/24/17 06:00 97 H 31 H 145/70 95 08/24/17 05:00 100 H 31 H 160/75 H 96 08/24/17 04:00 99.7 F H 97 H 31 H 159/79 H 97 08/24/17 03:00 91 H 41 H 151/69 H Intake and Output (Last 8hrs): Intake & Output 08/23/17 08/23/17 08/24/17 14:59 22:59 06:59 Intake Total 200 595 580 Output Total 1350 700 600 Balance -1150 -105 -20 Intake: IV 200 400 Left Hand 200 200 Left Wrist 200 Oral 0 Tube Feeding 95 480 Other 100 100 Output: Urine 800 550 400 Urethral (Christensen) 800 550 400 Stool 550 150 200 - Physical Exam Head: Positive for: Atraumatic, Normocephalic Pupils: Positive for: PERRL Extroacular Muscles: Positive for: EOMI Conjunctiva: Positive for: Normal Mouth: Positive for: Moist Mucous Membranes Pharnyx: Positive for: Normal. Negative for: ERYTHEMA, EXUDATE, TONSILS ENLARGED Nose (External): Positive for: Atraumatic Nose (Internal): Positive for: Normal Inspection Neck: Positive for: Normal Range of Motion Respiratory/Chest: Positive for: Clear to Auscultation, Good Air Exchange, Other (On trach collar, OFF vent and PRVC). Negative for: Respiratory Distress , Accessory Muscle Use, Wheezes, Retracting, Rhonchi Cardiovascular: Positive for: Regular Rate and Rhythm, Normal S1, S2. Negative for: Murmurs Abdomen: Positive for: Normal Bowel Sounds, Other (NGT in place- feeds @ 40cc/hr ; rectal tube, help decompress bowel- soft abdomen). Negative for: Tenderness, Distention, Peritoneal Signs Back: Positive for: Normal Inspection. Negative for: CVA Tenderness, Midline Tenderness Upper Extremity: Positive for: Normal Inspection, NORMAL PULSES, Capillary Refill < 2s. Negative for: Cyanosis, Edema, Erythema Lower Extremity: Positive for: NORMAL PULSES, Swelling, Capillary Refill < 2 s. Negative for: Edema, CALF TENDERNESS Neurological: Positive for: GCS=15, Motor Func Grossly Intact, Normal Sensory Function Skin: Positive for: Warm, Dry, Normal Color. Negative for: Rashes Psychiatric: Positive for: Alert, Normal Affect, Normal Mood - Medications Active Medications: Active Medications Generic Name Dose Route Start Last Admin Trade Name Freq PRN Reason Stop Dose Admin Acetaminophen 650 mg 08/20/17 09:27 08/20/17 09:49 Tylenol 325mg Tab PO 650 mg Q6H PRN Administration Pain, moderate (4-7) Albuterol/Ipratropium 3 ml 08/15/17 11:36 08/24/17 03:15 Duoneb 3 Mg/0.5 Mg (3 Ml) Ud IH 3 ml [id number] ESCOBAR Administration Albuterol/Ipratropium 3 ml 08/18/17 09:22 08/20/17 19:10 Duoneb 3 Mg/0.5 Mg (3 Ml) Ud IH 3 ml [id number] PRN Administration SOB Budesonide 0.5 mg 08/22/17 20:00 08/23/17 20:45 Pulmicort Respules IH 0.5 mg [id number] ESCOBAR Administration Calcium Carbonate 600 mg 08/18/17 10:00 08/23/17 17:43 Caltrate PO 600 mg BID ESCOBAR Administration Ergocalciferol 1 cap 08/12/17 13:30 08/19/17 13:43 Drisdol 50,000 Intl Units Cap PO 1 cap Q7D ESCOBAR Administration Ferrous Sulfate 300 mg 08/16/17 10:00 08/23/17 14:00 Feosol Liq PO 300 mg TID ESCOBAR Administration Guaifenesin/Codeine Phosphate 5 ml 08/23/17 15:07 08/23/17 16:54 Robitussin W/Codeine PO 5 ml Q4H PRN Administration Cough and congestion Heparin Sodium (Porcine) 5,000 units 08/18/17 10:00 08/23/17 21:39 Heparin SC 5,000 units Q12 ESCOBAR Administration Protocol Insulin Human Lispro 0 units 08/14/17 18:00 08/24/17 06:23 Humalog Med SC Not Given Q6H [facility] Protocol Levothyroxine Sodium 50 mcg 08/11/17 10:00 08/23/17 09:49 Synthroid IVP 50 mcg DAILY ESCOBAR Administration Multivitamins/Vitamin C 15 ml 08/23/17 08:00 08/23/17 09:48 Multi-Delyn Liquid PO 15 ml 0800 ESCOBAR Administration Nystatin 1 gm 08/17/17 10:00 08/23/17 10:00 Nystop Topical Powder TOP 1 applic DAILY ESCOBAR Administration Nystatin 0 gm 08/23/17 17:30 Mycostatin Oint TOP BID ESCOBAR Pantoprazole Sodium 40 mg 08/19/17 07:30 08/23/17 09:49 Protonix Susp PO 40 mg ACB ESCOBAR Administration Phenol/Menthol 0 ml 08/23/17 08:12 08/23/17 09:51 Phenaseptic 1.4% Throat [place] 1 spr Q2H PRN Administration Sore Throat Vancomycin HCl 250 mg 08/23/17 22:00 08/23/17 21:38 Vancocin 25 Mg/Ml (Oral Use) PO 250 mg QID ESCOBAR Administration Protocol Zinc Sulfate 220 mg 06/15/17 14:30 08/23/17 09:50 Zinc Sulfate 220 Mg Cap PO 220 mg DAILY ESCOBAR Administration - Patient Studies Lab Studies: Microbiology Studies 08/23/17 11:27 C. difficile Antigen & Toxin A,B (M - Final Stool Lab Studies 08/24/17 08/24/17 08/23/17 Range/Units 06:21 00:45 21:23 WBC (4.5-11.0) 10^3/ul RBC (3.5-6.1) 10^6/uL Hgb (12.0-16.0) g/dL Hct (36.0-48.0) % MCV (80.0-105.0) fl MCH (25.0-35.0) pg MCHC (31.0-37.0) g/dl RDW (11.5-14.5) % Plt Count (120.0-450.0) 10^3/uL MPV (7.0-11.0) fl Gran % (50.0-68.0) % Lymph % (Auto) (22.0-35.0) % [place] % (Auto) (1.0-6.0) % Eos % (Auto) (1.5-5.0) % Baso % (Auto) (0.0-3.0) % Gran # (1.4-6.5) Lymph # (1.2-3.4) [place] # (0.1-0.6) Eos # (0.0-0.7) Baso # (0.0-2.0) K/mm3 Sodium (132-148) mmol/L Potassium (3.6-5.0) mmol/L Chloride (98-107) mmol/L Carbon Dioxide (21-33) mmol/L Anion Gap (10-20) BUN (7-21) mg/dL Creatinine (0.7-1.2) mg/dl Est GFR ( Amer) Est GFR (Non-Af Amer) POC Glucose (mg/dL) 118 H 111 H 103 (65-110) mg/dL Random Glucose (70-110) mg/dL Calcium (8.4-10.5) mg/dL Magnesium (1.7-2.2) mg/dL Total Bilirubin (0.2-1.3) mg/dL AST (14-36) U/L ALT (7-56) U/L Alkaline Phosphatase (38-126) U/L Total Protein (5.8-8.3) g/dL Albumin (3.0-4.8) g/dL Globulin gm/dL Albumin/Globulin Ratio (1.1-1.8) 08/23/17 08/23/17 08/23/17 Range/Units 21:20 16:14 10:55 WBC (4.5-11.0) 10^3/ul RBC (3.5-6.1) 10^6/uL Hgb (12.0-16.0) g/dL Hct (36.0-48.0) % MCV (80.0-105.0) fl MCH (25.0-35.0) pg MCHC (31.0-37.0) g/dl RDW (11.5-14.5) % Plt Count (120.0-450.0) 10^3/uL MPV (7.0-11.0) fl Gran % (50.0-68.0) % Lymph % (Auto) (22.0-35.0) % [place] % (Auto) (1.0-6.0) % Eos % (Auto) (1.5-5.0) % Baso % (Auto) (0.0-3.0) % Gran # (1.4-6.5) Lymph # (1.2-3.4) [place] # (0.1-0.6) Eos # (0.0-0.7) Baso # (0.0-2.0) K/mm3 Sodium 139 (132-148) mmol/L Potassium 3.8 (3.6-5.0) mmol/L Chloride 102 (98-107) mmol/L Carbon Dioxide 30 (21-33) mmol/L Anion Gap 12 (10-20) BUN 7 (7-21) mg/dL Creatinine 0.9 (0.7-1.2) mg/dl Est GFR ( Amer) > 60 Est GFR (Non-Af Amer) > 60 POC Glucose (mg/dL) 87 100 (65-110) mg/dL Random Glucose 113 H (70-110) mg/dL Calcium 7.9 L (8.4-10.5) mg/dL Magnesium (1.7-2.2) mg/dL Total Bilirubin (0.2-1.3) mg/dL AST (14-36) U/L ALT (7-56) U/L Alkaline Phosphatase (38-126) U/L Total Protein (5.8-8.3) g/dL Albumin (3.0-4.8) g/dL Globulin gm/dL Albumin/Globulin Ratio (1.1-1.8) 08/23/17 08/23/17 08/23/17 Range/Units 07:51 06:30 06:30 WBC 8.1 (4.5-11.0) 10^3/ul RBC 3.24 L (3.5-6.1) 10^6/uL Hgb 8.6 L (12.0-16.0) g/dL Hct 28.0 L (36.0-48.0) % MCV 86.4 (80.0-105.0) fl MCH 26.5 (25.0-35.0) pg MCHC 30.7 L (31.0-37.0) g/dl RDW 23.8 H (11.5-14.5) % Plt Count 311 (120.0-450.0) 10^3/uL MPV 8.7 (7.0-11.0) fl Gran % 71.4 H (50.0-68.0) % Lymph % (Auto) 13.3 L (22.0-35.0) % [place] % (Auto) 11.5 H (1.0-6.0) % Eos % (Auto) 3.4 (1.5-5.0) % Baso % (Auto) 0.4 (0.0-3.0) % Gran # 5.80 (1.4-6.5) Lymph # 1.1 L (1.2-3.4) [place] # 0.9 H (0.1-0.6) Eos # 0.3 (0.0-0.7) Baso # 0.03 (0.0-2.0) K/mm3 Sodium 142 (132-148) mmol/L Potassium 2.8 L* (3.6-5.0) mmol/L Chloride 101 (98-107) mmol/L Carbon Dioxide 29 (21-33) mmol/L Anion Gap 14 (10-20) BUN 7 (7-21) mg/dL Creatinine 0.8 (0.7-1.2) mg/dl Est GFR ( Amer) > 60 Est GFR (Non-Af Amer) > 60 POC Glucose (mg/dL) 88 (65-110) mg/dL Random Glucose 96 (70-110) mg/dL Calcium 7.8 L (8.4-10.5) mg/dL Magnesium 1.4 L (1.7-2.2) mg/dL Total Bilirubin 0.4 (0.2-1.3) mg/dL AST 33 (14-36) U/L ALT 25 (7-56) U/L Alkaline Phosphatase 71 (38-126) U/L Total Protein 6.4 (5.8-8.3) g/dL Albumin 3.0 (3.0-4.8) g/dL Globulin 3.4 gm/dL Albumin/Globulin Ratio 0.9 L (1.1-1.8) Laboratory Results - last 24 hr 08/23/17 08/23/17 08/23/17 06:30 06:30 07:51 WBC 8.1 RBC 3.24 L Hgb 8.6 L Hct 28.0 L MCV 86.4 MCH 26.5 MCHC 30.7 L RDW 23.8 H Plt Count 311 MPV 8.7 Gran % 71.4 H Lymph % (Auto) 13.3 L [place] % (Auto) 11.5 H Eos % (Auto) 3.4 Baso % (Auto) 0.4 Gran # 5.80 Lymph # 1.1 L [place] # 0.9 H Eos # 0.3 Baso # 0.03 Sodium 142 Potassium 2.8 L* Chloride 101 Carbon Dioxide 29 Anion Gap 14 BUN 7 Creatinine 0.8 Est GFR ( Amer) > 60 Est GFR (Non-Af Amer) > 60 POC Glucose (mg/dL) 88 Random Glucose 96 Calcium 7.8 L Magnesium 1.4 L Total Bilirubin 0.4 AST 33 ALT 25 Alkaline Phosphatase 71 Total Protein 6.4 Albumin 3.0 Globulin 3.4 Albumin/Globulin Ratio 0.9 L 08/23/17 08/23/17 08/23/17 10:55 16:14 21:20 WBC RBC Hgb Hct MCV MCH MCHC RDW Plt Count MPV Gran % Lymph % (Auto) [place] % (Auto) Eos % (Auto) Baso % (Auto) Gran # Lymph # [place] # Eos # Baso # Sodium 139 Potassium 3.8 Chloride 102 Carbon Dioxide 30 Anion Gap 12 BUN 7 Creatinine 0.9 Est GFR ( Amer) > 60 Est GFR (Non-Af Amer) > 60 POC Glucose (mg/dL) 100 87 Random Glucose 113 H Calcium 7.9 L Magnesium Total Bilirubin AST ALT Alkaline Phosphatase Total Protein Albumin Globulin Albumin/Globulin Ratio 08/23/17 08/24/17 08/24/17 21:23 00:45 06:21 WBC RBC Hgb Hct MCV MCH MCHC RDW Plt Count MPV Gran % Lymph % (Auto) [place] % (Auto) Eos % (Auto) Baso % (Auto) Gran # Lymph # [place] # Eos # Baso # Sodium Potassium Chloride Carbon Dioxide Anion Gap BUN Creatinine Est GFR ( Amer) Est GFR (Non-Af Amer) POC Glucose (mg/dL) 103 111 H 118 H Random Glucose Calcium Magnesium Total Bilirubin AST ALT Alkaline Phosphatase Total Protein Albumin Globulin Albumin/Globulin Ratio Fingerstick Blood Sugar Results: 118 Review of Systems - Review of Systems Systems not reviewed;Unavailable: Other (trach collar in place; complete ROS unobtainable) Assessment/Plan - Assessment and Plan (Free Text) Assessment: 67yo female presented to ICU with hypercapnic respiratory failure, obesity, COPD , renal failure-improved, ventilator dependent respiratory failure intubated on 08/06/17. s/p Trach on 08/17/17. On Tube feeds started for nutrition. Off sedation and pressors. Currently on trach collar, doing well at this time. Renal function stable. Currently afebrile, hemodynamically stable, in no acute distress. Plan: Neuro: Pt awake, alert responds to verbal stimuli , follows commands and moves extremities. Cardio: hemodynamically stable keep MAP > 65 Pulm: Off PRVC on Trach collar saturating well Chest physiotherapy Suction q4h OOB to chair with physical therapy Pulmonary toilet conservative fluid management GI: currently on tube feeds residual < 100 Feeds @ 40cc/hr Protonix 40mg ivp qd Monitor BM Plan for feeding next week w/ specialized tracheostomy cuff Renal/Electrolytes: Good urine output; Monitor Urine output and BUN/Cr CATE improving replete electrolytes PRN Hold BILLY-I Replete K and Mg PRN Endo: maintain euglycemia RISS medium Accuchecks Heme: DVT ppx: Hep subQ ID: C Diff antigen positive toxin negative 08/23 C Diff antigen and toxin negative 08/16 urine culture gram + cocci 08/10 urine culture +Klebsiella pna 07/05 C. Diff antigen positive and toxin negative 08/08 blood culture final negative x 2 08/10 and 07/05/17 Vancomycin 250mg po qid ID consult Dr. Montero GI ppx: Protonix 40mg ivp qd DVT ppx: SCDs and Heparin subQ Diet: Tube feeds @ 40cc/hr Discussed with Dr. Koko Nick PGY2 <Ruddy Sutherland - Last Filed: 08/24/17 10:14> CCU Objective - Vital Signs / Intake & Output Intake and Output (Last 8hrs): Intake & Output 08/23/17 08/24/17 08/24/17 22:59 06:59 14:59 Intake Total 595 580 Output Total 700 600 Balance -105 -20 Intake: IV 400 Left Hand 200 Left Wrist 200 Tube Feeding 95 480 Other 100 100 Output: Urine 550 400 Urethral (Christensen) 550 400 Stool 150 200 - Medications Active Medications: Active Medications Generic Name Dose Route Start Last Admin Trade Name Freq PRN Reason Stop Dose Admin Acetaminophen 650 mg 08/20/17 09:27 08/20/17 09:49 Tylenol 325mg Tab PO 650 mg Q6H PRN Administration Pain, moderate (4-7) Albuterol/Ipratropium 3 ml 08/15/17 11:36 08/24/17 07:46 Duoneb 3 Mg/0.5 Mg (3 Ml) Ud IH 3 ml [id number] ESCOBAR Administration Albuterol/Ipratropium 3 ml 08/18/17 09:22 08/20/17 19:10 Duoneb 3 Mg/0.5 Mg (3 Ml) Ud IH 3 ml [id number] PRN Administration SOB Budesonide 0.5 mg 08/22/17 20:00 08/24/17 07:47 Pulmicort Respules IH 0.5 mg [id number] ESCOBAR Administration Calcium Carbonate 600 mg 08/18/17 10:00 08/24/17 09:09 Caltrate PO 600 mg BID ESCOBAR Administration Ergocalciferol 1 cap 08/12/17 13:30 08/19/17 13:43 Drisdol 50,000 Intl Units Cap PO 1 cap Q7D ESCOBAR Administration Ferrous Sulfate 300 mg 08/16/17 10:00 08/24/17 09:07 Feosol Liq PO 300 mg TID ESCOBAR Administration Guaifenesin/Codeine Phosphate 5 ml 08/23/17 15:07 08/24/17 09:06 Robitussin W/Codeine PO 5 ml Q4H PRN Administration Cough and congestion Heparin Sodium (Porcine) 5,000 units 08/18/17 10:00 08/23/17 21:39 Heparin SC 5,000 units Q12 ESCOBAR Administration Protocol Insulin Human Lispro 0 units 08/14/17 18:00 08/24/17 06:23 Humalog Med SC Not Given Q6H [facility] Protocol Levothyroxine Sodium 50 mcg 08/11/17 10:00 08/24/17 09:07 Synthroid IVP 50 mcg DAILY ESCOBAR Administration Multivitamins/Vitamin C 15 ml 08/23/17 08:00 08/24/17 09:06 Multi-Delyn Liquid PO 15 ml 0800 ESCOBAR Administration Nystatin 1 gm 08/17/17 10:00 08/23/17 10:00 Nystop Topical Powder TOP 1 applic DAILY ESCOBAR Administration Nystatin 0 gm 08/23/17 17:30 Mycostatin Oint TOP BID ESCOBAR Pantoprazole Sodium 40 mg 08/19/17 07:30 08/24/17 09:08 Protonix Susp PO 40 mg ACB ESCOBAR Administration Phenol/Menthol 0 ml 08/23/17 08:12 08/23/17 09:51 Phenaseptic 1.4% Throat [place] 1 spr Q2H PRN Administration Sore Throat Potassium Chloride 40 meq 08/24/17 13:00 Potassium Chloride Oral Soln PO 08/24/17 13:01 ONCE ONE Potassium Phos/Sodium Phos 1 pkt 08/24/17 09:00 08/24/17 09:09 Neutra-Phos PO 1 pkt TID ESCOBAR Administration Vancomycin HCl 250 mg 08/23/17 22:00 08/24/17 09:05 Vancocin 25 Mg/Ml (Oral Use) PO 250 mg QID ESCOBAR Administration Protocol Zinc Sulfate 220 mg 06/15/17 14:30 08/24/17 09:08 Zinc Sulfate 220 Mg Cap PO 220 mg DAILY ESCOBAR Administration - Patient Studies Lab Studies: Microbiology Studies 08/23/17 11:27 C. difficile Antigen & Toxin A,B (M - Final Stool Lab Studies 08/24/17 08/24/17 08/24/17 Range/Units 06:21 06:00 06:00 WBC 8.4 (4.5-11.0) 10^3/ul RBC 3.14 L (3.5-6.1) 10^6/uL Hgb 8.4 L (12.0-16.0) g/dL Hct 27.1 L (36.0-48.0) % MCV 86.3 (80.0-105.0) fl MCH 26.8 (25.0-35.0) pg MCHC 31.0 (31.0-37.0) g/dl RDW 23.8 H (11.5-14.5) % Plt Count 324 (120.0-450.0) 10^3/uL MPV 8.9 (7.0-11.0) fl Gran % 73.2 H (50.0-68.0) % Lymph % (Auto) 12.2 L (22.0-35.0) % [place] % (Auto) 11.2 H (1.0-6.0) % Eos % (Auto) 2.7 (1.5-5.0) % Baso % (Auto) 0.7 (0.0-3.0) % Gran # 6.15 (1.4-6.5) Lymph # 1.0 L (1.2-3.4) [place] # 0.9 H (0.1-0.6) Eos # 0.2 (0.0-0.7) Baso # 0.06 (0.0-2.0) K/mm3 Sodium 140 (132-148) mmol/L Potassium 3.1 L (3.6-5.0) mmol/L Chloride 102 (98-107) mmol/L Carbon Dioxide 31 (21-33) mmol/L Anion Gap 10 (10-20) BUN 8 (7-21) mg/dL Creatinine 0.9 (0.7-1.2) mg/dl Est GFR ( Amer) > 60 Est GFR (Non-Af Amer) > 60 POC Glucose (mg/dL) 118 H (65-110) mg/dL Random Glucose 122 H (70-110) mg/dL Calcium 7.6 L (8.4-10.5) mg/dL Phosphorus 2.0 L (2.5-4.5) mg/dL Magnesium 1.6 L (1.7-2.2) mg/dL Total Bilirubin 0.4 (0.2-1.3) mg/dL AST 23 (14-36) U/L ALT 21 (7-56) U/L Alkaline Phosphatase 75 (38-126) U/L Total Protein 6.1 (5.8-8.3) g/dL Albumin 2.9 L (3.0-4.8) g/dL Globulin 3.2 gm/dL Albumin/Globulin Ratio 0.9 L (1.1-1.8) 08/24/17 08/23/17 08/23/17 Range/Units 00:45 21:23 21:20 WBC (4.5-11.0) 10^3/ul RBC (3.5-6.1) 10^6/uL Hgb (12.0-16.0) g/dL Hct (36.0-48.0) % MCV (80.0-105.0) fl MCH (25.0-35.0) pg MCHC (31.0-37.0) g/dl RDW (11.5-14.5) % Plt Count (120.0-450.0) 10^3/uL MPV (7.0-11.0) fl Gran % (50.0-68.0) % Lymph % (Auto) (22.0-35.0) % [place] % (Auto) (1.0-6.0) % Eos % (Auto) (1.5-5.0) % Baso % (Auto) (0.0-3.0) % Gran # (1.4-6.5) Lymph # (1.2-3.4) [place] # (0.1-0.6) Eos # (0.0-0.7) Baso # (0.0-2.0) K/mm3 Sodium 139 (132-148) mmol/L Potassium 3.8 (3.6-5.0) mmol/L Chloride 102 (98-107) mmol/L Carbon Dioxide 30 (21-33) mmol/L Anion Gap 12 (10-20) BUN 7 (7-21) mg/dL Creatinine 0.9 (0.7-1.2) mg/dl Est GFR ( Amer) > 60 Est GFR (Non-Af Amer) > 60 POC Glucose (mg/dL) 111 H 103 (65-110) mg/dL Random Glucose 113 H (70-110) mg/dL Calcium 7.9 L (8.4-10.5) mg/dL Phosphorus (2.5-4.5) mg/dL Magnesium (1.7-2.2) mg/dL Total Bilirubin (0.2-1.3) mg/dL AST (14-36) U/L ALT (7-56) U/L Alkaline Phosphatase (38-126) U/L Total Protein (5.8-8.3) g/dL Albumin (3.0-4.8) g/dL Globulin gm/dL Albumin/Globulin Ratio (1.1-1.8) 08/23/17 08/23/17 08/23/17 Range/Units 16:14 10:55 07:51 WBC (4.5-11.0) 10^3/ul RBC (3.5-6.1) 10^6/uL Hgb (12.0-16.0) g/dL Hct (36.0-48.0) % MCV (80.0-105.0) fl MCH (25.0-35.0) pg MCHC (31.0-37.0) g/dl RDW (11.5-14.5) % Plt Count (120.0-450.0) 10^3/uL MPV (7.0-11.0) fl Gran % (50.0-68.0) % Lymph % (Auto) (22.0-35.0) % [place] % (Auto) (1.0-6.0) % Eos % (Auto) (1.5-5.0) % Baso % (Auto) (0.0-3.0) % Gran # (1.4-6.5) Lymph # (1.2-3.4) [place] # (0.1-0.6) Eos # (0.0-0.7) Baso # (0.0-2.0) K/mm3 Sodium (132-148) mmol/L Potassium (3.6-5.0) mmol/L Chloride (98-107) mmol/L Carbon Dioxide (21-33) mmol/L Anion Gap (10-20) BUN (7-21) mg/dL Creatinine (0.7-1.2) mg/dl Est GFR ( Amer) Est GFR (Non-Af Amer) POC Glucose (mg/dL) 87 100 88 (65-110) mg/dL Random Glucose (70-110) mg/dL Calcium (8.4-10.5) mg/dL Phosphorus (2.5-4.5) mg/dL Magnesium (1.7-2.2) mg/dL Total Bilirubin (0.2-1.3) mg/dL AST (14-36) U/L ALT (7-56) U/L Alkaline Phosphatase (38-126) U/L Total Protein (5.8-8.3) g/dL Albumin (3.0-4.8) g/dL Globulin gm/dL Albumin/Globulin Ratio (1.1-1.8) Laboratory Results - last 24 hr 08/23/17 08/23/17 08/23/17 07:51 10:55 16:14 WBC RBC Hgb Hct MCV MCH MCHC RDW Plt Count MPV Gran % Lymph % (Auto) [place] % (Auto) Eos % (Auto) Baso % (Auto) Gran # Lymph # [place] # Eos # Baso # Sodium Potassium Chloride Carbon Dioxide Anion Gap BUN Creatinine Est GFR ( Amer) Est GFR (Non-Af Amer) POC Glucose (mg/dL) 88 100 87 Random Glucose Calcium Phosphorus Magnesium Total Bilirubin AST ALT Alkaline Phosphatase Total Protein Albumin Globulin Albumin/Globulin Ratio 08/23/17 08/23/17 08/24/17 21:20 21:23 00:45 WBC RBC Hgb Hct MCV MCH MCHC RDW Plt Count MPV Gran % Lymph % (Auto) [place] % (Auto) Eos % (Auto) Baso % (Auto) Gran # Lymph # [place] # Eos # Baso # Sodium 139 Potassium 3.8 Chloride 102 Carbon Dioxide 30 Anion Gap 12 BUN 7 Creatinine 0.9 Est GFR ( Amer) > 60 Est GFR (Non-Af Amer) > 60 POC Glucose (mg/dL) 103 111 H Random Glucose 113 H Calcium 7.9 L Phosphorus Magnesium Total Bilirubin AST ALT Alkaline Phosphatase Total Protein Albumin Globulin Albumin/Globulin Ratio 08/24/17 08/24/17 08/24/17 06:00 06:00 06:21 WBC 8.4 RBC 3.14 L Hgb 8.4 L Hct 27.1 L MCV 86.3 MCH 26.8 MCHC 31.0 RDW 23.8 H Plt Count 324 MPV 8.9 Gran % 73.2 H Lymph % (Auto) 12.2 L [place] % (Auto) 11.2 H Eos % (Auto) 2.7 Baso % (Auto) 0.7 Gran # 6.15 Lymph # 1.0 L [place] # 0.9 H Eos # 0.2 Baso # 0.06 Sodium 140 Potassium 3.1 L Chloride 102 Carbon Dioxide 31 Anion Gap 10 BUN 8 Creatinine 0.9 Est GFR ( Amer) > 60 Est GFR (Non-Af Amer) > 60 POC Glucose (mg/dL) 118 H Random Glucose 122 H Calcium 7.6 L Phosphorus 2.0 L Magnesium 1.6 L Total Bilirubin 0.4 AST 23 ALT 21 Alkaline Phosphatase 75 Total Protein 6.1 Albumin 2.9 L Globulin 3.2 Albumin/Globulin Ratio 0.9 L Assessment/Plan - Assessment and Plan (Free Text) Plan: Pt seen and examined, with resident on rounds, agree with note with following additions/exceptions: Patient is 67yo female a/w hypercapnic resp failure, s/p Trach now on Trach collar Currently afebrile, HD stable, comfortable, NAD, tolerating Trach collar this morning Renal function stable. C diff positive, started on treatment, rectal tube in place. Hypercapnic resp Failure, s/p trach on Trach collar Oliguria/renal Failure,improved Obesity COPD C diff colitis Recommend: - cont with Tcollar as tolerated, CPAP as needed - monitor urine output, BUN/Cr - Hold BILLY-I - BP control - feeds PO - Vanco PO for Cdiff - follow up ID - FS control - GI ppx - DVT ppx - if continues to tolerate Trach collar, can be transferred to floor - pending Ltach transfer
[2017-08-24 07:39] LABS: BASO # 0.06 K/mm3 (0.0-2.0); BASO % 0.7 % (0.0-3.0); EOS # 0.2 (0.0-0.7); EOS % 2.7 % (1.5-5.0); GRAN # 6.15 (1.4-6.5); GRAN % 73.2 % (50.0-68.0); HEMOGLOBIN 8.4 g/dL (12.0-16.0); LYMPH % 12.2 % (22.0-35.0); MEAN CELL VOLUME 86.3 fl (80.0-105.0); MEAN CORPUSCULAR HEMOGLOBIN 26.8 pg (25.0-35.0); MEAN PLATELET VOLUME 8.9 fl (7.0-11.0); MONO # 0.9 (0.1-0.6); MONO % 11.2 % (1.0-6.0); RBC 3.14 10^6/uL (3.5-6.1); RED CELL DISTRIBUTION WIDTH 23.8 % (11.5-14.5); WHITE BLOOD COUNT 8.4 10^3/ul (4.5-11.0)
[2017-08-24] MEDS: Budesonide 0.5 mg/2 ml Inhal Susp UD IH SCH ×2 (07:47→19:56)
[2017-08-24 08:01] LABS: ALB/GLOB RATIO 0.9 (1.1-1.8); ALBUMIN 2.9 g/dL (3.0-4.8); ALT/SGPT 21 U/L (7-56); AST/SGOT 23 U/L (14-36); BLOOD UREA NITROGEN 8 mg/dL (7-21); CALCIUM 7.6 mg/dL (8.4-10.5); GFR AFRICAN-AMERICAN > 60; GFR NON-AFRICAN AMERICAN > 60; MAGNESIUM 1.6 mg/dL (1.7-2.2)
[2017-08-24] MEDS ORDERED: Potassium Chloride 40 mEq/30 ml LIQ UD PO ONE ×5 (08:32→22:00)
[2017-08-24] MEDS ORDERED: Magnesium Sulfate 2 GM in Sodium Chloride 0.9% 100 ML IVPB ONE (08:41)
[2017-08-24] MEDS: Vancomycin 25 MG/ML PO SCH ×4 (09:05→21:47)
[2017-08-24] MEDS: guaiFENesin-Codeine 100-10mg/5ml Syrup (5 ml) UD PO PRN ×2 (09:06→18:31)
[2017-08-24] MEDS: Multi Vitamins 15 mL UD Oral Solution PO SCH (09:06)
[2017-08-24] MEDS: Levothyroxine 100 mcg (0.1 mg) Inj IVP SCH (09:07)
[2017-08-24] MEDS: Ferrous Sulfate 300 mg/5 mL Liq UD PO SCH ×3 (09:07→18:00)
[2017-08-24] MEDS: Pantoprazole 40 mg Susp UD PO SCH (09:08)
[2017-08-24] MEDS: Potassium & Sodium Phosphate PO SCH ×3 (09:09→18:33)
--- NOTE | 2017-08-24 13:10 | RAD ---
HISTORY: trach and changed NGT COMPARISON: No prior. FINDINGS: LUNGS: Ill-defined opacity at left base obscures left heart border. Possible pneumonia. Followup advised. Abnormal opacity also seen mid left lung lateral to hilum. No abnormal right-sided opacity. PLEURA: No significant pleural effusion identified, no pneumothorax apparent. CARDIOVASCULAR: Normal heart size. Tracheostomy. Nasogastric tube. OSSEOUS STRUCTURES: No significant abnormalities. VISUALIZED UPPER ABDOMEN: Normal. OTHER FINDINGS: None. IMPRESSION: Abnormal opacity at left base and lateral mid left lung. Followup advised. Possible pneumonia. Nasogastric tube extends to left upper quadrant of abdomen.
--- NOTE | 2017-08-24 13:34 | CP.PCM.PN ---
<Shan Zepeda - Last Filed: 08/24/17 19:34> Subjective - Date & Time of Evaluation Date of Evaluation: 08/24/17 Time of Evaluation: 06:00 - Subjective Subjective: Patient seen and evaluated bedside. No acute issues overnight. Patient is awake and answering questions. Full ROS unobtainable. Objective - Vital Signs/Intake and Output Vital Signs (last 24 hours): Temp Pulse Resp BP Pulse Ox 100.2 F H 94 H 24 150/73 98 08/24/17 08:00 08/24/17 11:10 08/24/17 11:10 08/24/17 11:00 08/24/17 11:10 Intake and Output: 08/24/17 08/24/17 06:59 18:59 Intake Total 580 Output Total 600 Balance -20 - Medications Medications: Current Medications Acetaminophen (Tylenol 325mg Tab) 650 mg PO Q6H PRN PRN Reason: Pain, moderate (4-7) Last Admin: 08/20/17 09:49 Dose: 650 mg Albuterol/Ipratropium (Duoneb 3 Mg/0.5 Mg (3 Ml) Ud) 3 ml IH [id number] [facility] Last Admin: 08/24/17 13:29 Dose: 3 ml Albuterol/Ipratropium (Duoneb 3 Mg/0.5 Mg (3 Ml) Ud) 3 ml IH [id number] PRN PRN Reason: SOB Last Admin: 08/20/17 19:10 Dose: 3 ml Budesonide (Pulmicort Respules) 0.5 mg IH [id number] [facility] Last Admin: 08/24/17 07:47 Dose: 0.5 mg Calcium Carbonate (Caltrate) 600 mg PO BID [facility] Last Admin: 08/24/17 09:09 Dose: 600 mg Ergocalciferol (Drisdol 50,000 Intl Units Cap) 1 cap PO Q7D [facility] Last Admin: 08/19/17 13:43 Dose: 1 cap Ferrous Sulfate (Feosol Liq) 300 mg PO TID [facility] Last Admin: 08/24/17 09:07 Dose: 300 mg Guaifenesin/Codeine Phosphate (Robitussin W/Codeine) 5 ml PO Q4H PRN PRN Reason: Cough and congestion Last Admin: 08/24/17 09:06 Dose: 5 ml Heparin Sodium (Porcine) (Heparin) 5,000 units SC Q12 [facility] PRN Reason: Protocol Last Admin: 08/23/17 21:39 Dose: 5,000 units Insulin Human Lispro (Humalog Med) 0 units SC Q6H [facility] PRN Reason: Protocol Last Admin: 08/24/17 06:23 Dose: Not Given Levothyroxine Sodium (Synthroid) 50 mcg IVP DAILY [facility] Last Admin: 08/24/17 09:07 Dose: 50 mcg Multivitamins/Vitamin C (Multi-Delyn Liquid) 15 ml PO 0800 [facility] Last Admin: 08/24/17 09:06 Dose: 15 ml Nystatin (Nystop Topical Powder) 1 gm TOP DAILY [facility] Last Admin: 08/23/17 10:00 Dose: 1 applic Nystatin (Mycostatin Oint) 0 gm TOP BID [facility] Pantoprazole Sodium (Protonix Susp) 40 mg PO ACB [facility] Last Admin: 08/24/17 09:08 Dose: 40 mg Phenol/Menthol (Phenaseptic 1.4% Throat [place]) 0 ml MT Q2H PRN PRN Reason: Sore Throat Last Admin: 08/23/17 09:51 Dose: 1 spr Potassium Phos/Sodium Phos (Neutra-Phos) 1 pkt PO TID [facility] Last Admin: 08/24/17 09:09 Dose: 1 pkt Vancomycin HCl (Vancocin 25 Mg/Ml (Oral Use)) 250 mg PO QID [facility] PRN Reason: Protocol Last Admin: 08/24/17 09:05 Dose: 250 mg Zinc Sulfate (Zinc Sulfate 220 Mg Cap) 220 mg PO DAILY [facility] Last Admin: 08/24/17 09:08 Dose: 220 mg - Labs Labs: 08/24/17 06:00 08/24/17 06:00 PT 12.5 SECONDS (9.4-12.5) 08/17/17 05:45 INR 1.09 (0.93-1.08) H 08/17/17 05:45 APTT 27.7 Seconds (25.1-36.5) 08/17/17 05:45 - Constitutional Appears: Non-toxic, No Acute Distress - Head Exam Head Exam: NORMAL INSPECTION, NORMOCEPHALIC - Eye Exam Eye Exam: Normal appearance - ENT Exam ENT Exam: Mucous Membranes Moist - Respiratory Exam Respiratory Exam: NORMAL BREATHING PATTERN - Cardiovascular Exam Cardiovascular Exam: REGULAR RHYTHM - GI/Abdominal Exam GI & Abdominal Exam: Distended, Soft - Neurological Exam Neurological Exam: Alert, Awake, Oriented x3 Assessment and Plan - Assessment and Plan (Free Text) Assessment: Patient is a 67 year old female with history of asthma, arthritis, anemia, and obesity who was originally admitted for right lower extremity cellulitis and UTI. During her hospitalization course she developed acute hypercapneic respiratory failure secondary to asthma/RA airway disease/kyphoscoliosis in setting of cdiff colitis. s/p trach. Patient is alert and awake. Currently afebrile, hemodynamically stable, on NGT feeds. Plan: Hypercapnic Respiratory Failure-resolved - patient Alert and awake - patient is status post trach - continue to monitor respiratory status - continue with yumiko pulmicort - Weaning protocol - Chest physiotherapy - Suction q4h - OOB to chair with physical therapy - Pulmonary toilet - conservative fluid management - speech and swallow evaluation pending chronic Abdominal Distension - CT Abdomen Pelvis with PO and IV Contrast (07/18):Interstitial and airspace disease in the lung bases; mild cardiomegaly and atherosclerotic disease; fatty liver; gallstones; mild ileus, no obstruction; constipation with fecal impaction - repeat CT abd on 08/20 showed Fluid-filled, dilated colon, with air fluid levels. Findings consistent with rapid small bowel transit, Nonspecific enteritis, Small bowel is decompressed. No evidence of small bowel obstruction. - abdominal flat plate-No acute changes or findings - rectal tube was placed, draining brown fluid, abd soft, less distension - will continue to monitor - Plan for feeding after passing swallow eval Normocytic anemia - hgb 8.4 this morning - consider transfuse if Hbg < 7.0 - continue feosol - Monitor daily Hypokalemia - low 3.1, repleted - possibly due to diarrhea, liquid stool from rectal tube - will continue to monitor correct as needed -CDIFF postive antigen, negative toxin, completed abx course Hypocalcemia - ca 7.6 , repleted - continue calcium carbonate 600mg BID - continue to monitor replete as needed Hypomagnesia - 1.6 this am, repleted - will repeat in AM - continue to monitor, correct as needed Acute Kidney injury - improving, returned to baseline - Monitor and maintain MAP > 65 - Monitor Input/Output, daily weights and renal function with basic metabolic panel - supplement electrolytes as needed - weekly vitamin D supplements - hold BILLY/ARB HTN - controlled - BP reviewed, trended, and appreciated - hold zestril due to CATE - completed course of flagyl h/o hypothyriodism - continue synthroid 50mcg daily Prophylaxis: - GI ppx Protonix - DVT ppx: Heparin <Max Liriano - Last Filed: 08/28/17 13:20> Objective - Vital Signs/Intake and Output Vital Signs (last 24 hours): Temp Pulse Resp BP Pulse Ox 99.1 F 93 H 26 H 147/82 99 08/25/17 08:00 08/25/17 11:10 08/25/17 11:10 08/25/17 11:00 08/25/17 11:10 Intake and Output: 08/25/17 08/25/17 06:59 18:59 Intake Total 600 Output Total 150 Balance 450 - Medications Medications: Current Medications Acetaminophen (Tylenol 325mg Tab) 650 mg PO Q6H PRN PRN Reason: Pain, moderate (4-7) Last Admin: 08/20/17 09:49 Dose: 650 mg Albuterol/Ipratropium (Duoneb 3 Mg/0.5 Mg (3 Ml) Ud) 3 ml IH [id number] [facility] Last Admin: 08/25/17 07:37 Dose: 3 ml Albuterol/Ipratropium (Duoneb 3 Mg/0.5 Mg (3 Ml) Ud) 3 ml IH [id number] PRN PRN Reason: SOB Last Admin: 08/20/17 19:10 Dose: 3 ml Budesonide (Pulmicort Respules) 0.5 mg IH [id number] [facility] Last Admin: 08/25/17 07:37 Dose: 0.5 mg Calcium Carbonate (Caltrate) 600 mg PO BID [facility] Last Admin: 08/25/17 09:24 Dose: 600 mg Ergocalciferol (Drisdol 50,000 Intl Units Cap) 1 cap PO Q7D [facility] Last Admin: 08/19/17 13:43 Dose: 1 cap Ferrous Sulfate (Feosol Liq) 300 mg PO TID [facility] Last Admin: 08/25/17 09:24 Dose: 300 mg Guaifenesin/Codeine Phosphate (Robitussin W/Codeine) 5 ml PO Q4H PRN PRN Reason: Cough and congestion Last Admin: 08/25/17 09:27 Dose: 5 ml Heparin Sodium (Porcine) (Heparin) 5,000 units SC Q12 [facility] PRN Reason: Protocol Last Admin: 08/25/17 09:24 Dose: 5,000 units Insulin Human Lispro (Humalog Med) 0 units SC Q6H [facility] PRN Reason: Protocol Last Admin: 08/25/17 08:39 Dose: Not Given Levothyroxine Sodium (Synthroid) 50 mcg IVP DAILY [facility] Last Admin: 08/25/17 09:27 Dose: 50 mcg Multivitamins/Vitamin C (Multi-Delyn Liquid) 15 ml PO 0800 [facility] Last Admin: 08/25/17 09:25 Dose: 15 ml Nystatin (Nystop Topical Powder) 1 gm TOP DAILY [facility] Last Admin: 08/25/17 09:26 Dose: 1 applic Pantoprazole Sodium (Protonix Susp) 40 mg PO ACB [facility] Last Admin: 08/25/17 09:27 Dose: 40 mg Phenol/Menthol (Phenaseptic 1.4% Throat [place]) 0 ml MT Q2H PRN PRN Reason: Sore Throat Last Admin: 08/23/17 09:51 Dose: 1 spr Vancomycin HCl (Vancocin 25 Mg/Ml (Oral Use)) 250 mg PO QID [facility] PRN Reason: Protocol Last Admin: 08/25/17 09:27 Dose: 250 mg Zinc Sulfate (Zinc Sulfate 220 Mg Cap) 220 mg PO DAILY [facility] Last Admin: 08/25/17 09:29 Dose: 220 mg - Labs Labs: 08/25/17 06:00 08/25/17 06:00 PT 12.5 SECONDS (9.4-12.5) 08/17/17 05:45 INR 1.09 (0.93-1.08) H 08/17/17 05:45 APTT 27.7 Seconds (25.1-36.5) 08/17/17 05:45 Attending/Attestation - Attestation I have personally seen and examined this patient.: Yes I have fully participated in the care of the patient.: Yes I have reviewed all pertinent clinical information, including history, physical exam and plan: Yes Notes (Text): 08/25/17 12:31 Patient was seen and examined with medical billing supervisor. 67 yrs old Female with hypercapnic resp failure, ventilatory dependent, now on Trach collar, Patient is tolerating Trach collar at day time but night time required ventilatory support/Patient is afebrile, not wheezing. Patient is off antibiotics for Pneumonia and is off steroid. Patient is on tube feeding, awaiting swallow evaluation.May need PEG tube placement. Acute renal failure has resolved.Creatinine is back to normal. Hypokalemia, Electrolyte are replaced, will follow up electrolyte. Prognosis is guarded.
--- NOTE | 2017-08-24 17:55 | CP.PCM.PN ---
Subjective - Date & Time of Evaluation Date of Evaluation: 08/24/17 Time of Evaluation: 17:30 - Subjective Subjective: Infectious Disease Follow Up: August 24, 2017 67 yo female presenting with 3 weeks of RLE ulceration, swelling and leaking from the wound as well as multiple falls in the past 3 weeks. The patient has an extensive medical history of asthma, arthritis, vitamin C deficiency, and possible thyroid disease. Draining RLE ulceration... cellulitis improved/resolved. Multiple chronic medical issues. Still with persistent dry cough. Otherwise stable. Mild erythema and excoriation of the folds in the abdomen and under the breasts. UTI with Klebsiella earlier in hospitalization but had treatment with Cipro that is now completed. Social Issues. The patient had respiratory distress with no improvement from BiPAP. Patient required intubation and ventilation. Transferred to MICU for further care. The patient was started on Zyvox and Aztreonam IV. Patient had a positive C. Diff antigen but negative toxin. Remains ventilated today. Appears stable. Chest X-ray not showing new findings. No leukocytosis. Cultures pending... so far negative. Patient unable to be weaned from ventilator. Supportive care. No fevers or leukocytosis. First two Procalcitonin equivocal. The patient had hypothermia ranging from 93.0 F starting from two days ago. Temperature did rise back up to 99.0 F and has been hovering around 97.7 F. Rechecking procalcitonin... now at 1.49. Difficulty from weaning from the ventilator. Patient is opening eyes and tracking now. Creatinine has been improving and is down to 0.9 from 1.1 from 1.2 from 1.3 from 1.5 from 2.0 now. Mild elevation in WBC to 11. Open tracheostomy done 08/17/2017. Failed ventilator weaning during this hospitalization. Recent repeat C. Diff negative for toxin and antigen. Patient has completed antibiotic regimens and is off antibiotics at this time. Patient is awake and alert. So far stable. Still having diarrhea episodes. C. Diff antigen positive. Objective - Vital Signs/Intake and Output Vital Signs (last 24 hours): Temp Pulse Resp BP Pulse Ox 100.2 F H 94 H 24 150/73 98 08/24/17 08:00 08/24/17 11:10 08/24/17 11:10 08/24/17 11:00 08/24/17 11:10 Intake and Output: 08/24/17 08/24/17 06:59 18:59 Intake Total 580 Output Total 600 Balance -20 - Medications Medications: Current Medications Acetaminophen (Tylenol 325mg Tab) 650 mg PO Q6H PRN PRN Reason: Pain, moderate (4-7) Last Admin: 08/20/17 09:49 Dose: 650 mg Albuterol/Ipratropium (Duoneb 3 Mg/0.5 Mg (3 Ml) Ud) 3 ml IH [id number] [facility] Last Admin: 08/24/17 13:29 Dose: 3 ml Albuterol/Ipratropium (Duoneb 3 Mg/0.5 Mg (3 Ml) Ud) 3 ml IH [id number] PRN PRN Reason: SOB Last Admin: 08/20/17 19:10 Dose: 3 ml Budesonide (Pulmicort Respules) 0.5 mg IH [id number] [facility] Last Admin: 08/24/17 07:47 Dose: 0.5 mg Calcium Carbonate (Caltrate) 600 mg PO BID [facility] Last Admin: 08/24/17 09:09 Dose: 600 mg Ergocalciferol (Drisdol 50,000 Intl Units Cap) 1 cap PO Q7D [facility] Last Admin: 08/19/17 13:43 Dose: 1 cap Ferrous Sulfate (Feosol Liq) 300 mg PO TID [facility] Last Admin: 08/24/17 09:07 Dose: 300 mg Guaifenesin/Codeine Phosphate (Robitussin W/Codeine) 5 ml PO Q4H PRN PRN Reason: Cough and congestion Last Admin: 08/24/17 09:06 Dose: 5 ml Heparin Sodium (Porcine) (Heparin) 5,000 units SC Q12 [facility] PRN Reason: Protocol Last Admin: 08/23/17 21:39 Dose: 5,000 units Insulin Human Lispro (Humalog Med) 0 units SC Q6H [facility] PRN Reason: Protocol Last Admin: 08/24/17 06:23 Dose: Not Given Levothyroxine Sodium (Synthroid) 50 mcg IVP DAILY [facility] Last Admin: 08/24/17 09:07 Dose: 50 mcg Multivitamins/Vitamin C (Multi-Delyn Liquid) 15 ml PO 0800 [facility] Last Admin: 08/24/17 09:06 Dose: 15 ml Nystatin (Nystop Topical Powder) 1 gm TOP DAILY [facility] Last Admin: 08/23/17 10:00 Dose: 1 applic Nystatin (Mycostatin Oint) 0 gm TOP BID [facility] Pantoprazole Sodium (Protonix Susp) 40 mg PO ACB [facility] Last Admin: 08/24/17 09:08 Dose: 40 mg Phenol/Menthol (Phenaseptic 1.4% Throat [place]) 0 ml MT Q2H PRN PRN Reason: Sore Throat Last Admin: 08/23/17 09:51 Dose: 1 spr Potassium Phos/Sodium Phos (Neutra-Phos) 1 pkt PO TID [facility] Last Admin: 08/24/17 09:09 Dose: 1 pkt Vancomycin HCl (Vancocin 25 Mg/Ml (Oral Use)) 250 mg PO QID [facility] PRN Reason: Protocol Last Admin: 08/24/17 09:05 Dose: 250 mg Zinc Sulfate (Zinc Sulfate 220 Mg Cap) 220 mg PO DAILY [facility] Last Admin: 08/24/17 09:08 Dose: 220 mg - Labs Labs: 08/24/17 06:00 08/24/17 06:00 PT 12.5 SECONDS (9.4-12.5) 08/17/17 05:45 INR 1.09 (0.93-1.08) H 08/17/17 05:45 APTT 27.7 Seconds (25.1-36.5) 08/17/17 05:45 - Constitutional Appears: Non-toxic, No Acute Distress, Chronically Ill - Head Exam Additional comments: trach and ventilated. - Eye Exam Eye Exam: EOMI, PERRL Pupil Exam: NORMAL ACCOMODATION, PERRL - ENT Exam ENT Exam: Mucous Membranes Moist, Normal External Ear Exam, TM's Normal Bilaterally - Neck Exam Neck Exam: Full ROM, Normal Inspection - Respiratory Exam Respiratory Exam: Decreased Breath Sounds, NORMAL BREATHING PATTERN. absent: Rales, Rhonchi, Wheezes - Cardiovascular Exam Cardiovascular Exam: REGULAR RHYTHM, RRR, +S1, +S2 - GI/Abdominal Exam GI & Abdominal Exam: Soft, Normal Bowel Sounds. absent: Distended, Tenderness - Extremities Exam Extremities Exam: Full ROM, Normal Inspection - Neurological Exam Neurological Exam: Alert, Awake, CN II-XII Intact, Oriented x3 - Psychiatric Exam Psychiatric exam: Normal Affect, Normal Mood - Skin Skin Exam: Intact, Normal Color Assessment and Plan - Assessment and Plan (Free Text) Assessment: 67 yo female with multiple medical issues with PCN allergy diagnosed as a teenager verified by an Court Officer. The patient with leukocytosis. Await cultures especially urine cultures. Diabetes and HTN history? Local wound care. Elevated ESR and C-reactive protein. Completed Vancomycin and Aztreonam for antibiotic coverage. UTI with E. coli sensitive to Azactam. Was on Vancomycin for cellulitis IV. For UTI for 5-7 days treatment... completed. Supportive care. Cellulitis appears improved. No new issues. Social issues currently. Homeless at this time. CT scan of chest done. No infiltrates seen. Afebrile the past 24 hours. Mild congestion noted in CT with small pulmonary effusions. No leukocytosis. Slightly elevated procalcitonin (0.66) which is undefined without stronger evidence for pneumonia. When encouraged, she is able to use the incentive spirometer without issues and ambulate with minimal difficulty. Repeat procalcitonin showing 0.71. UTI with Klebsiella. Sensitive to Cipro. Was on Cipro for 5 day course at 500mg PO BID. Completed the antibiotic course. Stable currently. No new issues. Off antibiotics at this time. Multiple social issues. Chronic cough still with periods of hacking. Complained of Vague mild general pains. During this hospitalization, the patient developed respiratory failure and required intubation. Started on Zyvox and Aztreonam IV. Will add Flagyl as well. No leukocytosis. Noted C. Diff with positive antigen but negative toxin. Supportive care. Remains intubated and ventilated. Cultures pending. C. Diff negative to date. No leukocytosis or fever reported. Essentially clear X-ray. Hypothermia episodes most of yesterday to this morning. Antibiotic courses completed. Noted gram positive cocci in most recent urine culture. Still awaiting identification. Supportive care. Patient did improve mentally. Still difficulty in weaning off respirator. She remains intubated. Failed weaning from vent. Tracheotomy performed 08/17/2017. Patient is awake and alert. Currently off antibiotics. 08/23/2017 C. Diff testing was positive for antigen and negative for toxin. Supportive care. Still with watery diarrhea. Started on PO Vancomycin for C. Diff. Thank you for allowing me to participate in the care of the patient, we will follow with you.
[2017-08-24] MEDS: Nystatin 100,000 Units/gm Oint(30 gm) TOP SCH ×2 (18:33→18:39)
[2017-08-24] MEDS: Nystatin 100,000 Units/gm Topical Pow(15 gm) TOP SCH (18:37)
[2017-08-25] MEDS: Albuterol-Ipratrop 3 mg / 0.5 (3 ml) UD IH SCH ×4 (02:23→19:37)
[2017-08-25 06:28] LABS: BASO # 0.05 K/mm3 (0.0-2.0); BASO % 0.6 % (0.0-3.0); EOS # 0.3 (0.0-0.7); EOS % 3.1 % (1.5-5.0); GRAN # 5.64 (1.4-6.5); GRAN % 70.4 % (50.0-68.0); HEMOGLOBIN 8.5 g/dL (12.0-16.0); LYMPH # 1.2 (1.2-3.4); LYMPH % 15.2 % (22.0-35.0); MEAN CELL VOLUME 85.6 fl (80.0-105.0); MEAN CORPUSCULAR HEMOGLOBIN 27.2 pg (25.0-35.0); MEAN CORPUSCULAR HGB CONC 31.7 g/dl (31.0-37.0); MEAN PLATELET VOLUME 8.9 fl (7.0-11.0); MONO # 0.9 (0.1-0.6); MONO % 10.7 % (1.0-6.0); RBC 3.13 10^6/uL (3.5-6.1); RED CELL DISTRIBUTION WIDTH 24.2 % (11.5-14.5)
[2017-08-25 06:45] LABS: ALB/GLOB RATIO 0.9 (1.1-1.8); ALBUMIN 3.2 g/dL (3.0-4.8); ALT/SGPT 26 U/L (7-56); AST/SGOT 28 U/L (14-36); BLOOD UREA NITROGEN 10 mg/dL (7-21); GFR AFRICAN-AMERICAN > 60; GFR NON-AFRICAN AMERICAN > 60; MAGNESIUM 1.7 mg/dL (1.7-2.2)
--- NOTE | 2017-08-25 06:56 | CP.CCUPN ---
<Sneha Nick - Last Filed: 08/25/17 10:50> CCU Subjective - Physician Review Subjective (Free Text): 08/24/17 09:56 Patient seen and examined at bedside. No acute events overnight and patient was afebrile overnight as per nursing. Patient on pressure support overnight- will attempt trach collar this AM. NGT was changed and CXR this AM confirmed position. Rectal tube in place- patient is C. Diff positive. Christensen in place- making good urine. Responds to verbal commands. Shakes head yes and no to questions. Complete ROS unobtainable. CCU Objective - Vital Signs / Intake & Output Vital Signs (Last 4 hours): Vital Signs Temp Pulse Resp BP Pulse Ox 08/25/17 06:30 84 45 H 100 08/25/17 06:20 84 30 H 100 08/25/17 06:10 95 H 49 H 99 08/25/17 06:00 92 H 23 142/65 100 08/25/17 05:50 93 H 53 H 100 08/25/17 05:40 90 45 H 100 08/25/17 05:35 97 H 36 H 08/25/17 05:30 92 H 46 H 100 08/25/17 05:20 90 43 H 96 08/25/17 05:10 78 35 H 100 08/25/17 05:00 84 21 129/66 100 08/25/17 04:50 81 30 H 100 08/25/17 04:40 91 H 17 100 08/25/17 04:30 93 H 50 H 100 08/25/17 04:20 81 15 99 08/25/17 04:10 96 H 14 99 08/25/17 04:00 99 F 83 48 H 111/51 L 100 08/25/17 03:50 100 H 25 H 80 L 08/25/17 03:40 96 H 41 H 91 L 08/25/17 03:30 88 44 H 96 08/25/17 03:20 93 H 33 H 98 08/25/17 03:10 95 H 30 H 98 08/25/17 03:00 85 51 H 91/55 L 98 Intake and Output (Last 8hrs): Intake & Output 08/24/17 08/24/17 08/25/17 14:59 22:59 06:59 Intake Total 850 600 Output Total 400 150 Balance 450 450 Intake: IV 100 Left Hand 100 Oral 600 Tube Feeding 600 Other 150 Output: Urine 150 Urethral (Christensen) 150 Stool 400 - Physical Exam Head: Positive for: Atraumatic, Normocephalic Pupils: Positive for: PERRL Extroacular Muscles: Positive for: EOMI Conjunctiva: Positive for: Normal Mouth: Positive for: Moist Mucous Membranes Pharnyx: Positive for: Normal. Negative for: ERYTHEMA, EXUDATE, TONSILS ENLARGED Nose (External): Positive for: Atraumatic Nose (Internal): Positive for: Normal Inspection Neck: Positive for: Normal Range of Motion Respiratory/Chest: Positive for: Clear to Auscultation, Good Air Exchange, Other (On trach collar, OFF vent and PRVC). Negative for: Respiratory Distress , Accessory Muscle Use, Wheezes, Retracting, Rhonchi Cardiovascular: Positive for: Regular Rate and Rhythm, Normal S1, S2. Negative for: Murmurs Abdomen: Positive for: Normal Bowel Sounds, Other (NGT in place- feeds @ 40cc/hr ; rectal tube, help decompress bowel- soft abdomen). Negative for: Tenderness, Distention, Peritoneal Signs Back: Positive for: Normal Inspection. Negative for: CVA Tenderness, Midline Tenderness Upper Extremity: Positive for: Normal Inspection, NORMAL PULSES, Capillary Refill < 2s. Negative for: Cyanosis, Edema, Erythema Lower Extremity: Positive for: NORMAL PULSES, Swelling, Capillary Refill < 2 s. Negative for: Edema, CALF TENDERNESS Neurological: Positive for: GCS=15, Motor Func Grossly Intact, Normal Sensory Function Skin: Positive for: Warm, Dry, Normal Color. Negative for: Rashes Psychiatric: Positive for: Alert, Normal Affect, Normal Mood - Medications Active Medications: Active Medications Generic Name Dose Route Start Last Admin Trade Name Freq PRN Reason Stop Dose Admin Acetaminophen 650 mg 08/20/17 09:27 08/20/17 09:49 Tylenol 325mg Tab PO 650 mg Q6H PRN Administration Pain, moderate (4-7) Albuterol/Ipratropium 3 ml 08/15/17 11:36 08/25/17 02:23 Duoneb 3 Mg/0.5 Mg (3 Ml) Ud IH 3 ml [id number] ESCOBAR Administration Albuterol/Ipratropium 3 ml 08/18/17 09:22 01/19/18 19:10 Duoneb 3 Mg/0.5 Mg (3 Ml) Ud IH 3 ml [id number] PRN Administration SOB Budesonide 0.5 mg 08/22/17 20:00 08/24/17 19:56 Pulmicort Respules IH 0.5 mg [id number] ESCOBAR Administration Calcium Carbonate 600 mg 08/18/17 10:00 08/24/17 18:41 Caltrate PO 600 mg BID ESCOBAR Administration Ergocalciferol 1 cap 08/12/17 13:30 08/19/17 13:43 Drisdol 50,000 Intl Units Cap PO 1 cap Q7D ESCOBAR Administration Ferrous Sulfate 300 mg 08/16/17 10:00 08/24/17 18:00 Feosol Liq PO 300 mg TID ESCOBAR Administration Guaifenesin/Codeine Phosphate 5 ml 08/23/17 15:07 08/24/17 18:31 Robitussin W/Codeine PO 5 ml Q4H PRN Administration Cough and congestion Heparin Sodium (Porcine) 5,000 units 08/18/17 10:00 08/24/17 21:25 Heparin SC 5,000 units Q12 ESCOBAR Administration Protocol Insulin Human Lispro 0 units 08/14/17 18:00 08/25/17 00:00 Humalog Med SC Not Given Q6H [facility] Protocol Levothyroxine Sodium 50 mcg 08/11/17 10:00 08/24/17 09:07 Synthroid IVP 50 mcg DAILY ESCOBAR Administration Multivitamins/Vitamin C 15 ml 08/23/17 08:00 08/24/17 09:06 Multi-Delyn Liquid PO 15 ml 0800 ESCOBAR Administration Nystatin 1 gm 08/17/17 10:00 08/24/17 18:37 Nystop Topical Powder TOP 1 applic DAILY ESCOBAR Administration Pantoprazole Sodium 40 mg 08/19/17 07:30 08/24/17 09:08 Protonix Susp PO 40 mg ACB ESCOBAR Administration Phenol/Menthol 0 ml 08/23/17 08:12 08/23/17 09:51 Phenaseptic 1.4% Throat [place] MT 1 spr Q2H PRN Administration Sore Throat Potassium Phos/Sodium Phos 1 pkt 08/24/17 09:00 08/24/17 18:33 Neutra-Phos PO 1 pkt TID ESCOBAR Administration Vancomycin HCl 250 mg 08/23/17 22:00 08/24/17 21:47 Vancocin 25 Mg/Ml (Oral Use) PO 250 mg QID ESCOBAR Administration Protocol Zinc Sulfate 220 mg 06/15/17 14:30 08/24/17 09:08 Zinc Sulfate 220 Mg Cap PO 220 mg DAILY ESCOBAR Administration - Patient Studies Lab Studies: Lab Studies 08/25/17 08/25/17 08/25/17 Range/Units 06:00 06:00 00:19 WBC 8.0 (4.5-11.0) 10^3/ul RBC 3.13 L (3.5-6.1) 10^6/uL Hgb 8.5 L (12.0-16.0) g/dL Hct 26.8 L (36.0-48.0) % MCV 85.6 (80.0-105.0) fl MCH 27.2 (25.0-35.0) pg MCHC 31.7 (31.0-37.0) g/dl RDW 24.2 H (11.5-14.5) % Plt Count 351 (120.0-450.0) 10^3/uL MPV 8.9 (7.0-11.0) fl Gran % 70.4 H (50.0-68.0) % Lymph % (Auto) 15.2 L (22.0-35.0) % [place] % (Auto) 10.7 H (1.0-6.0) % Eos % (Auto) 3.1 (1.5-5.0) % Baso % (Auto) 0.6 (0.0-3.0) % Gran # 5.64 (1.4-6.5) Lymph # 1.2 (1.2-3.4) [place] # 0.9 H (0.1-0.6) Eos # 0.3 (0.0-0.7) Baso # 0.05 (0.0-2.0) K/mm3 Sodium 139 (132-148) mmol/L Potassium 5.1 H (3.6-5.0) mmol/L Chloride 103 (98-107) mmol/L Carbon Dioxide 29 (21-33) mmol/L Anion Gap 13 (10-20) BUN 10 (7-21) mg/dL Creatinine 0.9 (0.7-1.2) mg/dl Est GFR ( Amer) > 60 Est GFR (Non-Af Amer) > 60 POC Glucose (mg/dL) 121 H (65-110) mg/dL Random Glucose 119 H (70-110) mg/dL Serum Osmolality (272-300) mosm/kg Calcium 8.0 L (8.4-10.5) mg/dL Phosphorus 1.7 L (2.5-4.5) mg/dL Magnesium 1.7 (1.7-2.2) mg/dL Total Bilirubin 0.6 (0.2-1.3) mg/dL AST 28 (14-36) U/L ALT 26 (7-56) U/L Alkaline Phosphatase 76 (38-126) U/L Total Protein 6.8 (5.8-8.3) g/dL Albumin 3.2 (3.0-4.8) g/dL Globulin 3.6 gm/dL Albumin/Globulin Ratio 0.9 L (1.1-1.8) 08/24/17 08/24/17 08/24/17 Range/Units 18:04 16:25 11:33 WBC (4.5-11.0) 10^3/ul RBC (3.5-6.1) 10^6/uL Hgb (12.0-16.0) g/dL Hct (36.0-48.0) % MCV (80.0-105.0) fl MCH (25.0-35.0) pg MCHC (31.0-37.0) g/dl RDW (11.5-14.5) % Plt Count (120.0-450.0) 10^3/uL MPV (7.0-11.0) fl Gran % (50.0-68.0) % Lymph % (Auto) (22.0-35.0) % [place] % (Auto) (1.0-6.0) % Eos % (Auto) (1.5-5.0) % Baso % (Auto) (0.0-3.0) % Gran # (1.4-6.5) Lymph # (1.2-3.4) [place] # (0.1-0.6) Eos # (0.0-0.7) Baso # (0.0-2.0) K/mm3 Sodium (132-148) mmol/L Potassium (3.6-5.0) mmol/L Chloride (98-107) mmol/L Carbon Dioxide (21-33) mmol/L Anion Gap (10-20) BUN (7-21) mg/dL Creatinine (0.7-1.2) mg/dl Est GFR ( Amer) Est GFR (Non-Af Amer) POC Glucose (mg/dL) 114 H 96 138 H (65-110) mg/dL Random Glucose (70-110) mg/dL Serum Osmolality (272-300) mosm/kg Calcium (8.4-10.5) mg/dL Phosphorus (2.5-4.5) mg/dL Magnesium (1.7-2.2) mg/dL Total Bilirubin (0.2-1.3) mg/dL AST (14-36) U/L ALT (7-56) U/L Alkaline Phosphatase (38-126) U/L Total Protein (5.8-8.3) g/dL Albumin (3.0-4.8) g/dL Globulin gm/dL Albumin/Globulin Ratio (1.1-1.8) 08/24/17 08/24/17 08/23/17 Range/Units 06:00 06:00 21:20 WBC 8.4 (4.5-11.0) 10^3/ul RBC 3.14 L (3.5-6.1) 10^6/uL Hgb 8.4 L (12.0-16.0) g/dL Hct 27.1 L (36.0-48.0) % MCV 86.3 (80.0-105.0) fl MCH 26.8 (25.0-35.0) pg MCHC 31.0 (31.0-37.0) g/dl RDW 23.8 H (11.5-14.5) % Plt Count 324 (120.0-450.0) 10^3/uL MPV 8.9 (7.0-11.0) fl Gran % 73.2 H (50.0-68.0) % Lymph % (Auto) 12.2 L (22.0-35.0) % [place] % (Auto) 11.2 H (1.0-6.0) % Eos % (Auto) 2.7 (1.5-5.0) % Baso % (Auto) 0.7 (0.0-3.0) % Gran # 6.15 (1.4-6.5) Lymph # 1.0 L (1.2-3.4) [place] # 0.9 H (0.1-0.6) Eos # 0.2 (0.0-0.7) Baso # 0.06 (0.0-2.0) K/mm3 Sodium 140 (132-148) mmol/L Potassium 3.1 L (3.6-5.0) mmol/L Chloride 102 (98-107) mmol/L Carbon Dioxide 31 (21-33) mmol/L Anion Gap 10 (10-20) BUN 8 (7-21) mg/dL Creatinine 0.9 (0.7-1.2) mg/dl Est GFR ( Amer) > 60 Est GFR (Non-Af Amer) > 60 POC Glucose (mg/dL) (65-110) mg/dL Random Glucose 122 H (70-110) mg/dL Serum Osmolality 301 H (272-300) mosm/kg Calcium 7.6 L (8.4-10.5) mg/dL Phosphorus 2.0 L (2.5-4.5) mg/dL Magnesium 1.6 L (1.7-2.2) mg/dL Total Bilirubin 0.4 (0.2-1.3) mg/dL AST 23 (14-36) U/L ALT 21 (7-56) U/L Alkaline Phosphatase 75 (38-126) U/L Total Protein 6.1 (5.8-8.3) g/dL Albumin 2.9 L (3.0-4.8) g/dL Globulin 3.2 gm/dL Albumin/Globulin Ratio 0.9 L (1.1-1.8) Laboratory Results - last 24 hr 08/23/17 08/24/17 08/24/17 21:20 06:00 06:00 WBC 8.4 RBC 3.14 L Hgb 8.4 L Hct 27.1 L MCV 86.3 MCH 26.8 MCHC 31.0 RDW 23.8 H Plt Count 324 MPV 8.9 Gran % 73.2 H Lymph % (Auto) 12.2 L [place] % (Auto) 11.2 H Eos % (Auto) 2.7 Baso % (Auto) 0.7 Gran # 6.15 Lymph # 1.0 L [place] # 0.9 H Eos # 0.2 Baso # 0.06 Sodium 140 Potassium 3.1 L Chloride 102 Carbon Dioxide 31 Anion Gap 10 BUN 8 Creatinine 0.9 Est GFR ( Amer) > 60 Est GFR (Non-Af Amer) > 60 POC Glucose (mg/dL) Random Glucose 122 H Serum Osmolality 301 H Calcium 7.6 L Phosphorus 2.0 L Magnesium 1.6 L Total Bilirubin 0.4 AST 23 ALT 21 Alkaline Phosphatase 75 Total Protein 6.1 Albumin 2.9 L Globulin 3.2 Albumin/Globulin Ratio 0.9 L 08/24/17 08/24/17 08/24/17 11:33 16:25 18:04 WBC RBC Hgb Hct MCV MCH MCHC RDW Plt Count MPV Gran % Lymph % (Auto) [place] % (Auto) Eos % (Auto) Baso % (Auto) Gran # Lymph # [place] # Eos # Baso # Sodium Potassium Chloride Carbon Dioxide Anion Gap BUN Creatinine Est GFR ( Amer) Est GFR (Non-Af Amer) POC Glucose (mg/dL) 138 H 96 114 H Random Glucose Serum Osmolality Calcium Phosphorus Magnesium Total Bilirubin AST ALT Alkaline Phosphatase Total Protein Albumin Globulin Albumin/Globulin Ratio 08/25/17 08/25/17 08/25/17 00:19 06:00 06:00 WBC 8.0 RBC 3.13 L Hgb 8.5 L Hct 26.8 L MCV 85.6 MCH 27.2 MCHC 31.7 RDW 24.2 H Plt Count 351 MPV 8.9 Gran % 70.4 H Lymph % (Auto) 15.2 L [place] % (Auto) 10.7 H Eos % (Auto) 3.1 Baso % (Auto) 0.6 Gran # 5.64 Lymph # 1.2 [place] # 0.9 H Eos # 0.3 Baso # 0.05 Sodium 139 Potassium 5.1 H Chloride 103 Carbon Dioxide 29 Anion Gap 13 BUN 10 Creatinine 0.9 Est GFR ( Amer) > 60 Est GFR (Non-Af Amer) > 60 POC Glucose (mg/dL) 121 H Random Glucose 119 H Serum Osmolality Calcium 8.0 L Phosphorus 1.7 L Magnesium 1.7 Total Bilirubin 0.6 AST 28 ALT 26 Alkaline Phosphatase 76 Total Protein 6.8 Albumin 3.2 Globulin 3.6 Albumin/Globulin Ratio 0.9 L Fingerstick Blood Sugar Results: 121 Review of Systems - Review of Systems Systems not reviewed;Unavailable: Uncooperative Assessment/Plan - Assessment and Plan (Free Text) Assessment: 67yo female presented to ICU with hypercapnic respiratory failure, obesity, COPD , renal failure-improved, ventilator dependent respiratory failure intubated on 08/06/17. s/p Trach on 08/17/17. On Tube feeds started for nutrition. Off sedation and pressors. Currently on trach collar, doing well at this time. Renal function stable. Currently afebrile, hemodynamically stable, in no acute distress. Plan: Neuro: Pt awake, alert responds to verbal stimuli , follows commands and moves extremities. Cardio: hemodynamically stable keep MAP > 65 Pulm: Trach collar saturating well Chest physiotherapy Suction q4h OOB to chair with physical therapy Pulmonary toilet conservative fluid management GI: currently on tube feeds residual < 100 Feeds @ 60cc/hr Protonix 40mg ivp qd Monitor BM Plan for feeding next week w/ specialized tracheostomy cuff Renal/Electrolytes: Good urine output; Monitor Urine output and BUN/Cr CATE improving replete electrolytes PRN Hold BILLY-I Replete K and Mg PRN Endo: maintain euglycemia RISS medium Accuchecks Heme: DVT ppx: Hep subQ ID: C Diff antigen positive toxin negative 08/23 C Diff antigen and toxin negative 08/16 urine culture gram + cocci 08/10 urine culture +Klebsiella pna 07/05 C. Diff antigen positive and toxin negative 08/08 blood culture final negative x 2 08/10 and 07/05/17 Vancomycin 250mg po qid ID consult Dr. Montero GI ppx: Protonix 40mg ivp qd DVT ppx: SCDs and Heparin subQ Diet: Tube feeds @ 60cc/hr Dispo: transfer to [facility] Discussed with Dr. Dalia Nick PGY2 <Alexsander Gómez - Last Filed: 08/25/17 12:19> CCU Objective - Vital Signs / Intake & Output Vital Signs (Last 4 hours): Vital Signs Pulse Resp BP Pulse Ox 08/25/17 11:10 93 H 26 H 99 08/25/17 11:00 94 H 19 147/82 99 08/25/17 10:50 84 43 H 99 08/25/17 10:40 90 44 H 98 08/25/17 10:30 89 37 H 95 08/25/17 10:20 88 30 H 94 L 08/25/17 10:10 87 46 H 98 08/25/17 10:00 86 35 H 138/61 99 08/25/17 09:50 96 H 37 H 100 08/25/17 09:40 86 55 H 100 08/25/17 09:30 89 18 99 08/25/17 09:20 95 H 51 H 98 08/25/17 09:10 101 H 16 100 08/25/17 09:00 113 H 46 H 123/62 96 08/25/17 08:58 109 H 08/25/17 08:57 114 H 109 H 08/25/17 08:56 107 H 60 H 08/25/17 08:55 109 H 35 H 08/25/17 08:54 113 H 39 H 08/25/17 08:53 112 H 52 H 08/25/17 08:52 116 H 72 H 08/25/17 08:51 109 H 52 H 08/25/17 08:50 112 H 143 H 08/25/17 08:48 115 H 46 H 08/25/17 08:47 113 H 28 H 08/25/17 08:46 112 H 54 H 08/25/17 08:44 107 H 36 H 08/25/17 08:40 111 H 37 H 87 L 08/25/17 08:30 111 H 69 H 85 L 08/25/17 08:20 114 H 182 H 89 L Intake and Output (Last 8hrs): Intake & Output 08/24/17 08/25/17 08/25/17 22:59 06:59 14:59 Intake Total 850 600 Output Total 400 150 Balance 450 450 Intake: IV 100 Left Hand 100 Oral 600 Tube Feeding 600 Other 150 Output: Urine 150 Urethral (Christensen) 150 Stool 400 - Medications Active Medications: Active Medications Generic Name Dose Route Start Last Admin Trade Name Freq PRN Reason Stop Dose Admin Acetaminophen 650 mg 08/20/17 09:27 08/20/17 09:49 Tylenol 325mg Tab PO 650 mg Q6H PRN Administration Pain, moderate (4-7) Albuterol/Ipratropium 3 ml 08/15/17 11:36 08/25/17 07:37 Duoneb 3 Mg/0.5 Mg (3 Ml) Ud IH 3 ml [id number] ESCOBAR Administration Albuterol/Ipratropium 3 ml 08/18/17 09:22 08/20/17 19:10 Duoneb 3 Mg/0.5 Mg (3 Ml) Ud IH 3 ml [id number] PRN Administration SOB Budesonide 0.5 mg 08/22/17 20:00 08/25/17 07:37 Pulmicort Respules IH 0.5 mg [id number] ESCOBAR Administration Calcium Carbonate 600 mg 08/18/17 10:00 08/25/17 09:24 Caltrate PO 600 mg BID ESCOBAR Administration Ergocalciferol 1 cap 08/12/17 13:30 08/19/17 13:43 Drisdol 50,000 Intl Units Cap PO 1 cap Q7D ESCOBAR Administration Ferrous Sulfate 300 mg 08/16/17 10:00 08/25/17 09:24 Feosol Liq PO 300 mg TID ESCOBAR Administration Guaifenesin/Codeine Phosphate 5 ml 08/23/17 15:07 08/25/17 09:27 Robitussin W/Codeine PO 5 ml Q4H PRN Administration Cough and congestion Heparin Sodium (Porcine) 5,000 units 08/18/17 10:00 08/25/17 09:24 Heparin SC 5,000 units Q12 ESCOBAR Administration Protocol Insulin Human Lispro 0 units 08/14/17 18:00 08/25/17 08:39 Humalog Med SC Not Given Q6H [facility] Protocol Levothyroxine Sodium 50 mcg 08/11/17 10:00 08/25/17 09:27 Synthroid IVP 50 mcg DAILY ESCOBAR Administration Multivitamins/Vitamin C 15 ml 08/23/17 08:00 08/25/17 09:25 Multi-Delyn Liquid PO 15 ml 0800 [facility] Administration Nystatin 1 gm 08/17/17 10:00 08/25/17 09:26 Nystop Topical Powder TOP 1 applic DAILY ESCOBAR Administration Pantoprazole Sodium 40 mg 08/19/17 07:30 08/25/17 09:27 Protonix Susp PO 40 mg ACB ESCOBAR Administration Phenol/Menthol 0 ml 08/23/17 08:12 08/23/17 09:51 Phenaseptic 1.4% Throat [place] MT 1 spr Q2H PRN Administration Sore Throat Vancomycin HCl 250 mg 08/23/17 22:00 08/25/17 09:27 Vancocin 25 Mg/Ml (Oral Use) PO 250 mg QID ESCOBAR Administration Protocol Zinc Sulfate 220 mg 06/15/17 14:30 08/25/17 09:29 Zinc Sulfate 220 Mg Cap PO 220 mg DAILY ESCOBAR Administration - Patient Studies Lab Studies: Lab Studies 08/25/17 08/25/17 08/25/17 Range/Units 08:01 06:05 06:00 WBC (4.5-11.0) 10^3/ul RBC (3.5-6.1) 10^6/uL Hgb (12.0-16.0) g/dL Hct (36.0-48.0) % MCV (80.0-105.0) fl MCH (25.0-35.0) pg MCHC (31.0-37.0) g/dl RDW (11.5-14.5) % Plt Count (120.0-450.0) 10^3/uL MPV (7.0-11.0) fl Gran % (50.0-68.0) % Lymph % (Auto) (22.0-35.0) % [place] % (Auto) (1.0-6.0) % Eos % (Auto) (1.5-5.0) % Baso % (Auto) (0.0-3.0) % Gran # (1.4-6.5) Lymph # (1.2-3.4) [place] # (0.1-0.6) Eos # (0.0-0.7) Baso # (0.0-2.0) K/mm3 Sodium 139 (132-148) mmol/L Potassium 5.1 H (3.6-5.0) mmol/L Chloride 103 (98-107) mmol/L Carbon Dioxide 29 (21-33) mmol/L Anion Gap 13 (10-20) BUN 10 (7-21) mg/dL Creatinine 0.9 (0.7-1.2) mg/dl Est GFR ( Amer) > 60 Est GFR (Non-Af Amer) > 60 POC Glucose (mg/dL) 131 H 121 H (65-110) mg/dL Random Glucose 119 H (70-110) mg/dL Calcium 8.0 L (8.4-10.5) mg/dL Phosphorus 1.7 L (2.5-4.5) mg/dL Magnesium 1.7 (1.7-2.2) mg/dL Total Bilirubin 0.6 (0.2-1.3) mg/dL AST 28 (14-36) U/L ALT 26 (7-56) U/L Alkaline Phosphatase 76 (38-126) U/L Total Protein 6.8 (5.8-8.3) g/dL Albumin 3.2 (3.0-4.8) g/dL Globulin 3.6 gm/dL Albumin/Globulin Ratio 0.9 L (1.1-1.8) 08/25/17 08/25/17 08/24/17 Range/Units 06:00 00:19 18:04 WBC 8.0 (4.5-11.0) 10^3/ul RBC 3.13 L (3.5-6.1) 10^6/uL Hgb 8.5 L (12.0-16.0) g/dL Hct 26.8 L (36.0-48.0) % MCV 85.6 (80.0-105.0) fl MCH 27.2 (25.0-35.0) pg MCHC 31.7 (31.0-37.0) g/dl RDW 24.2 H (11.5-14.5) % Plt Count 351 (120.0-450.0) 10^3/uL MPV 8.9 (7.0-11.0) fl Gran % 70.4 H (50.0-68.0) % Lymph % (Auto) 15.2 L (22.0-35.0) % [place] % (Auto) 10.7 H (1.0-6.0) % Eos % (Auto) 3.1 (1.5-5.0) % Baso % (Auto) 0.6 (0.0-3.0) % Gran # 5.64 (1.4-6.5) Lymph # 1.2 (1.2-3.4) [place] # 0.9 H (0.1-0.6) Eos # 0.3 (0.0-0.7) Baso # 0.05 (0.0-2.0) K/mm3 Sodium (132-148) mmol/L Potassium (3.6-5.0) mmol/L Chloride (98-107) mmol/L Carbon Dioxide (21-33) mmol/L Anion Gap (10-20) BUN (7-21) mg/dL Creatinine (0.7-1.2) mg/dl Est GFR ( Amer) Est GFR (Non-Af Amer) POC Glucose (mg/dL) 121 H 114 H (65-110) mg/dL Random Glucose (70-110) mg/dL Calcium (8.4-10.5) mg/dL Phosphorus (2.5-4.5) mg/dL Magnesium (1.7-2.2) mg/dL Total Bilirubin (0.2-1.3) mg/dL AST (14-36) U/L ALT (7-56) U/L Alkaline Phosphatase (38-126) U/L Total Protein (5.8-8.3) g/dL Albumin (3.0-4.8) g/dL Globulin gm/dL Albumin/Globulin Ratio (1.1-1.8) 08/24/17 Range/Units 16:25 WBC (4.5-11.0) 10^3/ul RBC (3.5-6.1) 10^6/uL Hgb (12.0-16.0) g/dL Hct (36.0-48.0) % MCV (80.0-105.0) fl MCH (25.0-35.0) pg MCHC (31.0-37.0) g/dl RDW (11.5-14.5) % Plt Count (120.0-450.0) 10^3/uL MPV (7.0-11.0) fl Gran % (50.0-68.0) % Lymph % (Auto) (22.0-35.0) % [place] % (Auto) (1.0-6.0) % Eos % (Auto) (1.5-5.0) % Baso % (Auto) (0.0-3.0) % Gran # (1.4-6.5) Lymph # (1.2-3.4) [place] # (0.1-0.6) Eos # (0.0-0.7) Baso # (0.0-2.0) K/mm3 Sodium (132-148) mmol/L Potassium (3.6-5.0) mmol/L Chloride (98-107) mmol/L Carbon Dioxide (21-33) mmol/L Anion Gap (10-20) BUN (7-21) mg/dL Creatinine (0.7-1.2) mg/dl Est GFR ( Amer) Est GFR (Non-Af Amer) POC Glucose (mg/dL) 96 (65-110) mg/dL Random Glucose (70-110) mg/dL Calcium (8.4-10.5) mg/dL Phosphorus (2.5-4.5) mg/dL Magnesium (1.7-2.2) mg/dL Total Bilirubin (0.2-1.3) mg/dL AST (14-36) U/L ALT (7-56) U/L Alkaline Phosphatase (38-126) U/L Total Protein (5.8-8.3) g/dL Albumin (3.0-4.8) g/dL Globulin gm/dL Albumin/Globulin Ratio (1.1-1.8) Laboratory Results - last 24 hr 08/24/17 08/24/17 08/25/17 16:25 18:04 00:19 WBC RBC Hgb Hct MCV MCH MCHC RDW Plt Count MPV Gran % Lymph % (Auto) [place]et % (Auto) Eos % (Auto) Baso % (Auto) Gran # Lymph # Burnet # Eos # Baso # Sodium Potassium Chloride Carbon Dioxide Anion Gap BUN Creatinine Est GFR ( Amer) Est GFR (Non-Af Amer) POC Glucose (mg/dL) 96 114 H 121 H Random Glucose Calcium Phosphorus Magnesium Total Bilirubin AST ALT Alkaline Phosphatase Total Protein Albumin Globulin Albumin/Globulin Ratio 08/25/17 08/25/17 08/25/17 06:00 06:00 06:05 WBC 8.0 RBC 3.13 L Hgb 8.5 L Hct 26.8 L MCV 85.6 MCH 27.2 MCHC 31.7 RDW 24.2 H Plt Count 351 MPV 8.9 Gran % 70.4 H Lymph % (Auto) 15.2 L Burnet % (Auto) 10.7 H Eos % (Auto) 3.1 Baso % (Auto) 0.6 Gran # 5.64 Lymph # 1.2 Burnet # 0.9 H Eos # 0.3 Baso # 0.05 Sodium 139 Potassium 5.1 H Chloride 103 Carbon Dioxide 29 Anion Gap 13 BUN 10 Creatinine 0.9 Est GFR ( Amer) > 60 Est GFR (Non-Af Amer) > 60 POC Glucose (mg/dL) 121 H Random Glucose 119 H Calcium 8.0 L Phosphorus 1.7 L Magnesium 1.7 Total Bilirubin 0.6 AST 28 ALT 26 Alkaline Phosphatase 76 Total Protein 6.8 Albumin 3.2 Globulin 3.6 Albumin/Globulin Ratio 0.9 L 08/25/17 08:01 WBC RBC Hgb Hct MCV MCH MCHC RDW Plt Count MPV Gran % Lymph % (Auto) Burnet % (Auto) Eos % (Auto) Baso % (Auto) Gran # Lymph # Burnet # Eos # Baso # Sodium Potassium Chloride Carbon Dioxide Anion Gap BUN Creatinine Est GFR ( Amer) Est GFR (Non-Af Amer) POC Glucose (mg/dL) 131 H Random Glucose Calcium Phosphorus Magnesium Total Bilirubin AST ALT Alkaline Phosphatase Total Protein Albumin Globulin Albumin/Globulin Ratio Attending/Attestation - Attestation I have personally seen and examined this patient.: Yes I have fully participated in the care of the patient.: Yes I have reviewed all pertinent clinical information: Yes Notes (Text): 08/25/17 12:17 The patient was seen and examined at the bedside. Patient care was discussed with resident Medical records, lab studies, and imaging were reviewed and management issues were discussed and formulated. Last 24H events reviewed. Agree with above treatment plans as outlined in 's note with addition of the following: -hemodynamic monitoring to maintain MAP>65; currently stable -o2 supplementation to maintain Spo2 90-92 Pao2>60; currently comfortable on trach colar -continue nebs -continue Abx as per ID team and f\u cultures -CXr reviewed -f\u Bun\Cr and U\o, hold further K+ administration -PO diet and aspiration precautions -ISS and BGM monitoring -PT\OT eval -DVT \ PUD prophylaxis CCM f\u 25min
[2017-08-25] MEDS: Budesonide 0.5 mg/2 ml Inhal Susp UD IH SCH ×2 (07:37→19:38)
[2017-08-25] MEDS: Insulin Lispro (humaLOG) MEDIUM Coverage SC SCH ×4 (08:39→17:48)
[2017-08-25] MEDS: Ferrous Sulfate 300 mg/5 mL Liq UD PO SCH ×3 (09:24→17:47)
[2017-08-25] MEDS: Multi Vitamins 15 mL UD Oral Solution PO SCH (09:25)
[2017-08-25] MEDS: Potassium & Sodium Phosphate PO SCH (09:25)
[2017-08-25] MEDS: Nystatin 100,000 Units/gm Topical Pow(15 gm) TOP SCH (09:26)
[2017-08-25] MEDS: Levothyroxine 100 mcg (0.1 mg) Inj IVP SCH (09:27)
[2017-08-25] MEDS: guaiFENesin-Codeine 100-10mg/5ml Syrup (5 ml) UD PO PRN (09:27)
[2017-08-25] MEDS: Vancomycin 25 MG/ML PO SCH ×4 (09:27→22:56)
[2017-08-25] MEDS: Pantoprazole 40 mg Susp UD PO SCH (09:27)
--- NOTE | 2017-08-25 12:06 | CP.PCM.PN ---
<Shan Zepeda - Last Filed: 08/25/17 12:09> Subjective - Date & Time of Evaluation Date of Evaluation: 08/25/17 Time of Evaluation: 06:00 - Subjective Subjective: Patient seen and evaluated bedside. No acute issues overnight. Unable to obtian full ROS. Objective - Vital Signs/Intake and Output Vital Signs (last 24 hours): Temp Pulse Resp BP Pulse Ox 99.1 F 93 H 26 H 147/82 99 08/25/17 08:00 08/25/17 11:10 08/25/17 11:10 08/25/17 11:00 08/25/17 11:10 Intake and Output: 08/25/17 08/25/17 06:59 18:59 Intake Total 600 Output Total 150 Balance 450 - Medications Medications: Current Medications Acetaminophen (Tylenol 325mg Tab) 650 mg PO Q6H PRN PRN Reason: Pain, moderate (4-7) Last Admin: 08/20/17 09:49 Dose: 650 mg Albuterol/Ipratropium (Duoneb 3 Mg/0.5 Mg (3 Ml) Ud) 3 ml IH [id number] [facility] Last Admin: 08/25/17 07:37 Dose: 3 ml Albuterol/Ipratropium (Duoneb 3 Mg/0.5 Mg (3 Ml) Ud) 3 ml IH [id number] PRN PRN Reason: SOB Last Admin: 08/20/17 19:10 Dose: 3 ml Budesonide (Pulmicort Respules) 0.5 mg IH [id number] [facility] Last Admin: 08/25/17 07:37 Dose: 0.5 mg Calcium Carbonate (Caltrate) 600 mg PO BID [facility] Last Admin: 08/25/17 09:24 Dose: 600 mg Ergocalciferol (Drisdol 50,000 Intl Units Cap) 1 cap PO Q7D [facility] Last Admin: 08/19/17 13:43 Dose: 1 cap Ferrous Sulfate (Feosol Liq) 300 mg PO TID [facility] Last Admin: 08/25/17 09:24 Dose: 300 mg Guaifenesin/Codeine Phosphate (Robitussin W/Codeine) 5 ml PO Q4H PRN PRN Reason: Cough and congestion Last Admin: 08/25/17 09:27 Dose: 5 ml Heparin Sodium (Porcine) (Heparin) 5,000 units SC Q12 [facility] PRN Reason: Protocol Last Admin: 08/25/17 09:24 Dose: 5,000 units Insulin Human Lispro (Humalog Med) 0 units SC Q6H [facility] PRN Reason: Protocol Last Admin: 08/25/17 08:39 Dose: Not Given Levothyroxine Sodium (Synthroid) 50 mcg IVP DAILY [facility] Last Admin: 08/25/17 09:27 Dose: 50 mcg Multivitamins/Vitamin C (Multi-Delyn Liquid) 15 ml PO 0800 [facility] Last Admin: 08/25/17 09:25 Dose: 15 ml Nystatin (Nystop Topical Powder) 1 gm TOP DAILY [facility] Last Admin: 08/25/17 09:26 Dose: 1 applic Pantoprazole Sodium (Protonix Susp) 40 mg PO ACB [facility] Last Admin: 08/25/17 09:27 Dose: 40 mg Phenol/Menthol (Phenaseptic 1.4% Throat [place]) 0 ml MT Q2H PRN PRN Reason: Sore Throat Last Admin: 08/23/17 09:51 Dose: 1 spr Vancomycin HCl (Vancocin 25 Mg/Ml (Oral Use)) 250 mg PO QID [facility] PRN Reason: Protocol Last Admin: 08/25/17 09:27 Dose: 250 mg Zinc Sulfate (Zinc Sulfate 220 Mg Cap) 220 mg PO DAILY [facility] Last Admin: 08/25/17 09:29 Dose: 220 mg - Labs Labs: 08/25/17 06:00 08/25/17 06:00 PT 12.5 SECONDS (9.4-12.5) 08/17/17 05:45 INR 1.09 (0.93-1.08) H 08/17/17 05:45 APTT 27.7 Seconds (25.1-36.5) 08/17/17 05:45 - Constitutional Appears: Non-toxic, No Acute Distress - Head Exam Head Exam: NORMAL INSPECTION, NORMOCEPHALIC - Eye Exam Eye Exam: EOMI, Normal appearance - Neck Exam Neck Exam: absent: Lymphadenopathy, Tenderness - Respiratory Exam Respiratory Exam: NORMAL BREATHING PATTERN - Cardiovascular Exam Cardiovascular Exam: REGULAR RHYTHM - GI/Abdominal Exam GI & Abdominal Exam: Distended, Soft - Neurological Exam Neurological Exam: Alert, Awake Assessment and Plan - Assessment and Plan (Free Text) Assessment: Patient is a 67 year old female with history of asthma, arthritis, anemia, and obesity who was originally admitted for right lower extremity cellulitis and UTI. During her hospitalization course she developed acute hypercapneic respiratory failure secondary to asthma/RA airway disease/kyphoscoliosis in setting of cdiff colitis. s/p trach. Patient is alert and awake. Currently afebrile, hemodynamically stable, on NGT feeds. Plan: Hypercapnic Respiratory Failure-resolved - patient Alert and awake - patient is status post trach - continue to monitor respiratory status - continue with dumaria eugenia pulmicort - Weaning protocol - Chest physiotherapy - Suction q4h - OOB to chair with physical therapy - Pulmonary toilet - conservative fluid management - speech and swallow evaluation pending chronic Abdominal Distension - CT Abdomen Pelvis with PO and IV Contrast (07/18):Interstitial and airspace disease in the lung bases; mild cardiomegaly and atherosclerotic disease; fatty liver; gallstones; mild ileus, no obstruction; constipation with fecal impaction - repeat CT abd on 08/20 showed Fluid-filled, dilated colon, with air fluid levels. Findings consistent with rapid small bowel transit, Nonspecific enteritis, Small bowel is decompressed. No evidence of small bowel obstruction. - abdominal flat plate-No acute changes or findings - rectal tube was placed, draining brown fluid, abd soft, less distension - will continue to monitor - Plan for feeding after passing swallow eval possibly today Normocytic anemia - hgb 8.5 this morning - consider transfuse if Hbg < 7.0 - continue feosol - Monitor daily Hypokalemia-resolved - low 5.1 - will continue to monitor correct as needed Hypocalcemia - ca 8.0 - continue calcium carbonate 600mg BID - continue to monitor replete as needed Hypomagnesia-resolved - continue to monitor, correct as needed Acute Kidney injury - improving, returned to baseline - Monitor and maintain MAP > 65 - Monitor Input/Output, daily weights and renal function with basic metabolic panel - supplement electrolytes as needed - weekly vitamin D supplements - hold BILLY/ARB HTN - controlled - BP reviewed, trended, and appreciated - hold zestril due to CATE - completed course of flagyl h/o hypothyriodism - continue synthroid 50mcg daily hypophosphatemia -Phosphate 1.7 -monitor, replete as necessary Prophylaxis: - GI ppx Protonix - DVT ppx: Heparin <Max Liriano - Last Filed: 08/28/17 13:23> Objective - Vital Signs/Intake and Output Vital Signs (last 24 hours): Temp Pulse Resp BP Pulse Ox 98 F 90 34 H 147/70 100 08/28/17 04:00 08/28/17 08:00 08/28/17 08:00 08/28/17 08:00 08/28/17 08:00 Intake and Output: 08/28/17 08/28/17 06:59 18:59 Intake Total 700 Output Total 800 Balance -100 - Medications Medications: Current Medications Acetaminophen (Tylenol 325mg Tab) 650 mg PO Q6H PRN PRN Reason: Pain, moderate (4-7) Last Admin: 08/20/17 09:49 Dose: 650 mg Albuterol/Ipratropium (Duoneb 3 Mg/0.5 Mg (3 Ml) Ud) 3 ml IH [id number] PRN PRN Reason: SOB Last Admin: 08/28/17 01:40 Dose: 3 ml Albuterol/Ipratropium (Duoneb 3 Mg/0.5 Mg (3 Ml) Ud) 3 ml IH [id number] [facility] Last Admin: 08/28/17 11:53 Dose: 3 ml Budesonide (Pulmicort Respules) 0.5 mg IH [id number] [facility] Last Admin: 08/28/17 07:33 Dose: 0.5 mg Calcium Carbonate (Caltrate) 600 mg PO BID [facility] Last Admin: 08/28/17 10:10 Dose: 600 mg Diphenhydramine HCl (Benadryl) 25 mg IVP Q4H PRN PRN Reason: Allergy symptoms Last Admin: 08/28/17 02:22 Dose: 25 mg Ergocalciferol (Drisdol 50,000 Intl Units Cap) 1 cap PO Q7D [facility] Last Admin: 08/26/17 16:17 Dose: 1 cap Ferrous Sulfate (Feosol Liq) 300 mg PO TID [facility] Last Admin: 08/28/17 10:09 Dose: 300 mg Guaifenesin/Codeine Phosphate (Robitussin W/Codeine) 5 ml PO Q4H PRN PRN Reason: Cough and congestion Last Admin: 08/28/17 00:27 Dose: 5 ml Heparin Sodium (Porcine) (Heparin) 5,000 units SC Q12 [facility] PRN Reason: Protocol Last Admin: 08/28/17 10:09 Dose: 5,000 units Insulin Human Lispro (Humalog Med) 0 units SC Q6H [facility] PRN Reason: Protocol Last Admin: 08/28/17 11:15 Dose: Not Given Levothyroxine Sodium (Synthroid) 50 mcg IVP DAILY [facility] Last Admin: 08/28/17 10:09 Dose: 50 mcg Multivitamins/Vitamin C (Multi-Delyn Liquid) 15 ml PO 0800 [facility] Last Admin: 08/28/17 08:22 Dose: 15 ml Nystatin (Nystop Topical Powder) 1 gm TOP DAILY [facility] Last Admin: 08/28/17 10:10 Dose: 1 applic Pantoprazole Sodium (Protonix Susp) 40 mg PO ACB [facility] Last Admin: 08/28/17 08:22 Dose: 40 mg Phenol/Menthol (Phenaseptic 1.4% Throat [place]) 0 ml MT Q2H PRN PRN Reason: Sore Throat Last Admin: 08/27/17 17:45 Dose: 1 spr Vancomycin HCl (Vancocin 25 Mg/Ml (Oral Use)) 250 mg PO QID [facility] PRN Reason: Protocol Last Admin: 08/28/17 10:08 Dose: 250 mg Zinc Sulfate (Zinc Sulfate 220 Mg Cap) 220 mg PO DAILY [facility] Last Admin: 08/28/17 10:10 Dose: 220 mg - Labs Labs: 08/28/17 07:57 08/28/17 07:57 PT 12.5 SECONDS (9.4-12.5) 08/17/17 05:45 INR 1.09 (0.93-1.08) H 08/17/17 05:45 APTT 27.7 Seconds (25.1-36.5) 08/17/17 05:45 Attending/Attestation - Attestation I have personally seen and examined this patient.: Yes I have fully participated in the care of the patient.: Yes I have reviewed all pertinent clinical information, including history, physical exam and plan: Yes Notes (Text): 08/28/17 13:21 Patient was seen and exaimned with medical records auditor.Family is at bed side. 67 Yrs old female with PMH of Morbid Obesity,COPD, sleep apnea had prolong course in the hospital complicated by hypercapnic resp failure due to COPD exacebation and obesity hypoventilation, acute renal failure and Pneumonia , was unable to wean off , now on Trach collar Patient is afebrile, not wheezing.She is tolerating Trach collar Patient is off antibiotics for Pneumonia and is off steroid. Awaiting swallow evaluation.May need PEG tube Acute renal failure has resolved.Creatinin is back to noprmal. Prognosis is guarded.
--- NOTE | 2017-08-25 20:10 | CP.PCM.PN ---
Subjective - Date & Time of Evaluation Date of Evaluation: 08/25/17 Time of Evaluation: 17:00 - Subjective Subjective: Infectious Disease Follow Up: August 24, 2017 67 yo female presenting with 3 weeks of RLE ulceration, swelling and leaking from the wound as well as multiple falls in the past 3 weeks. The patient has an extensive medical history of asthma, arthritis, vitamin C deficiency, and possible thyroid disease. Draining RLE ulceration... cellulitis improved/resolved. Multiple chronic medical issues. Still with persistent dry cough. Otherwise stable. Mild erythema and excoriation of the folds in the abdomen and under the breasts. UTI with Klebsiella earlier in hospitalization but had treatment with Cipro that is now completed. Social Issues. The patient had respiratory distress with no improvement from BiPAP. Patient required intubation and ventilation. Transferred to MICU for further care. The patient was started on Zyvox and Aztreonam IV. Patient had a positive C. Diff antigen but negative toxin. Remains ventilated today. Appears stable. Chest X-ray not showing new findings. No leukocytosis. Cultures pending... so far negative. Patient unable to be weaned from ventilator. Supportive care. No fevers or leukocytosis. First two Procalcitonin equivocal. The patient had hypothermia ranging from 93.0 F starting from two days ago. Temperature did rise back up to 99.0 F and has been hovering around 97.7 F. Rechecking procalcitonin... now at 1.49. Difficulty from weaning from the ventilator. Patient is opening eyes and tracking now. Creatinine has been improving and is down to 0.9 from 1.1 from 1.2 from 1.3 from 1.5 from 2.0 now. Mild elevation in WBC to 11. Open tracheostomy done 08/17/2017. Failed ventilator weaning during this hospitalization. Recent repeat C. Diff negative for toxin and antigen. Patient has completed antibiotic regimens and is off antibiotics at this time. Patient is awake and alert. So far stable. Still having diarrhea episodes. C. Diff antigen positive. Objective - Vital Signs/Intake and Output Vital Signs (last 24 hours): Temp Pulse Resp BP Pulse Ox 98.3 F 106 H 47 H 126/76 97 08/25/17 16:00 08/25/17 18:00 08/25/17 18:00 08/25/17 16:00 08/25/17 18:00 Intake and Output: 08/25/17 08/26/17 18:59 06:59 Intake Total 1220 Output Total 350 Balance 870 - Medications Medications: Current Medications Acetaminophen (Tylenol 325mg Tab) 650 mg PO Q6H PRN PRN Reason: Pain, moderate (4-7) Last Admin: 08/20/17 09:49 Dose: 650 mg Albuterol/Ipratropium (Duoneb 3 Mg/0.5 Mg (3 Ml) Ud) 3 ml IH [id number] [facility] Last Admin: 08/25/17 19:37 Dose: 3 ml Albuterol/Ipratropium (Duoneb 3 Mg/0.5 Mg (3 Ml) Ud) 3 ml IH [id number] PRN PRN Reason: SOB Last Admin: 08/20/17 19:10 Dose: 3 ml Budesonide (Pulmicort Respules) 0.5 mg IH [id number] [facility] Last Admin: 08/25/17 19:38 Dose: 0.5 mg Calcium Carbonate (Caltrate) 600 mg PO BID [facility] Last Admin: 08/25/17 17:47 Dose: 600 mg Ergocalciferol (Drisdol 50,000 Intl Units Cap) 1 cap PO Q7D [facility] Last Admin: 08/19/17 13:43 Dose: 1 cap Ferrous Sulfate (Feosol Liq) 300 mg PO TID [facility] Last Admin: 08/25/17 17:47 Dose: 300 mg Guaifenesin/Codeine Phosphate (Robitussin W/Codeine) 5 ml PO Q4H PRN PRN Reason: Cough and congestion Last Admin: 08/25/17 09:27 Dose: 5 ml Heparin Sodium (Porcine) (Heparin) 5,000 units SC Q12 [facility] PRN Reason: Protocol Last Admin: 08/25/17 09:24 Dose: 5,000 units Insulin Human Lispro (Humalog Med) 0 units SC Q6H [facility] PRN Reason: Protocol Last Admin: 08/25/17 17:48 Dose: Not Given Levothyroxine Sodium (Synthroid) 50 mcg IVP DAILY [facility] Last Admin: 08/25/17 09:27 Dose: 50 mcg Multivitamins/Vitamin C (Multi-Delyn Liquid) 15 ml PO 0800 [facility] Last Admin: 08/25/17 09:25 Dose: 15 ml Nystatin (Nystop Topical Powder) 1 gm TOP DAILY [facility] Last Admin: 08/25/17 09:26 Dose: 1 applic Pantoprazole Sodium (Protonix Susp) 40 mg PO ACB [facility] Last Admin: 08/25/17 09:27 Dose: 40 mg Phenol/Menthol (Phenaseptic 1.4% Throat [place]) 0 ml MT Q2H PRN PRN Reason: Sore Throat Last Admin: 08/23/17 09:51 Dose: 1 spr Vancomycin HCl (Vancocin 25 Mg/Ml (Oral Use)) 250 mg PO QID [facility] PRN Reason: Protocol Last Admin: 08/25/17 17:49 Dose: 250 mg Zinc Sulfate (Zinc Sulfate 220 Mg Cap) 220 mg PO DAILY [facility] Last Admin: 08/25/17 09:29 Dose: 220 mg - Labs Labs: 08/25/17 06:00 08/25/17 06:00 PT 12.5 SECONDS (9.4-12.5) 08/17/17 05:45 INR 1.09 (0.93-1.08) H 08/17/17 05:45 APTT 27.7 Seconds (25.1-36.5) 08/17/17 05:45
[2017-08-26] MEDS: Albuterol-Ipratrop 3 mg / 0.5 (3 ml) UD IH SCH ×5 (02:41→20:15)
[2017-08-26] MEDS: guaiFENesin-Codeine 100-10mg/5ml Syrup (5 ml) UD PO PRN (03:38)
[2017-08-26] MEDS: Insulin Lispro (humaLOG) MEDIUM Coverage SC SCH ×3 (05:13→18:32)
[2017-08-26 06:28] LABS: BASO # 0.04 K/mm3 (0.0-2.0); BASO % 0.6 % (0.0-3.0); EOS # 0.2 (0.0-0.7); EOS % 3.3 % (1.5-5.0); GRAN # 4.72 (1.4-6.5); GRAN % 65.8 % (50.0-68.0); LYMPH # 1.3 (1.2-3.4); LYMPH % 17.9 % (22.0-35.0); MEAN CELL VOLUME 88.7 fl (80.0-105.0); MEAN CORPUSCULAR HEMOGLOBIN 26.7 pg (25.0-35.0); MEAN CORPUSCULAR HGB CONC 30.1 g/dl (31.0-37.0); MEAN PLATELET VOLUME 8.8 fl (7.0-11.0); MONO # 0.9 (0.1-0.6); MONO % 12.4 % (1.0-6.0); RED CELL DISTRIBUTION WIDTH 24.3 % (11.5-14.5); WHITE BLOOD COUNT 7.2 10^3/ul (4.5-11.0)
[2017-08-26 06:48] LABS: BLOOD UREA NITROGEN 10 mg/dL (7-21)
[2017-08-26 06:49] LABS: ALB/GLOB RATIO 0.9 (1.1-1.8); ALBUMIN 3.1 g/dL (3.0-4.8); ALT/SGPT 31 U/L (7-56); AST/SGOT 37 U/L (14-36); GFR AFRICAN-AMERICAN > 60; GFR NON-AFRICAN AMERICAN > 60
[2017-08-26] MEDS: Budesonide 0.5 mg/2 ml Inhal Susp UD IH SCH (07:22)
[2017-08-26] MEDS: Pantoprazole 40 mg Susp UD PO SCH (09:06)
[2017-08-26] MEDS: Levothyroxine 100 mcg (0.1 mg) Inj IVP SCH (09:06)
[2017-08-26] MEDS: Multi Vitamins 15 mL UD Oral Solution PO SCH (09:06)
[2017-08-26] MEDS: Nystatin 100,000 Units/gm Topical Pow(15 gm) TOP SCH (09:07)
[2017-08-26] MEDS: Ferrous Sulfate 300 mg/5 mL Liq UD PO SCH ×3 (09:07→18:33)
[2017-08-26] MEDS: Vancomycin 25 MG/ML PO SCH ×3 (09:09→21:31)
--- NOTE | 2017-08-26 15:34 | CP.PCM.PN ---
Subjective - Date & Time of Evaluation Date of Evaluation: 08/26/17 Time of Evaluation: 06:00 - Subjective Subjective: Patient seen and evaluated bedside. No acute issues overnight. Patient denies any complaints. Unable to obtain full ROS. patient on trach collar. Objective - Vital Signs/Intake and Output Vital Signs (last 24 hours): Temp Pulse Resp BP Pulse Ox 97.9 F 119 H 35 H 142/69 100 08/26/17 00:00 08/26/17 14:00 08/26/17 14:00 08/26/17 12:57 08/26/17 14:00 - Medications Medications: Current Medications Acetaminophen (Tylenol 325mg Tab) 650 mg PO Q6H PRN PRN Reason: Pain, moderate (4-7) Last Admin: 08/20/17 09:49 Dose: 650 mg Albuterol/Ipratropium (Duoneb 3 Mg/0.5 Mg (3 Ml) Ud) 3 ml IH [id number] PRN PRN Reason: SOB Last Admin: 08/20/17 19:10 Dose: 3 ml Albuterol/Ipratropium (Duoneb 3 Mg/0.5 Mg (3 Ml) Ud) 3 ml IH [id number] [facility] Last Admin: 08/26/17 11:30 Dose: 3 ml Budesonide (Pulmicort Respules) 0.5 mg IH [id number] [facility] Last Admin: 08/26/17 07:22 Dose: 0.5 mg Calcium Carbonate (Caltrate) 600 mg PO BID [facility] Last Admin: 08/26/17 09:07 Dose: 600 mg Ergocalciferol (Drisdol 50,000 Intl Units Cap) 1 cap PO Q7D [facility] Last Admin: 08/19/17 13:43 Dose: 1 cap Ferrous Sulfate (Feosol Liq) 300 mg PO TID [facility] Last Admin: 08/26/17 09:07 Dose: 300 mg Guaifenesin/Codeine Phosphate (Robitussin W/Codeine) 5 ml PO Q4H PRN PRN Reason: Cough and congestion Last Admin: 08/26/17 03:38 Dose: 5 ml Heparin Sodium (Porcine) (Heparin) 5,000 units SC Q12 [facility] PRN Reason: Protocol Last Admin: 08/26/17 09:07 Dose: 5,000 units Insulin Human Lispro (Humalog Med) 0 units SC Q6H [facility] PRN Reason: Protocol Last Admin: 08/26/17 05:13 Dose: Not Given Levothyroxine Sodium (Synthroid) 50 mcg IVP DAILY [facility] Last Admin: 08/26/17 09:06 Dose: 50 mcg Multivitamins/Vitamin C (Multi-Delyn Liquid) 15 ml PO 0800 [facility] Last Admin: 08/26/17 09:06 Dose: 15 ml Nystatin (Nystop Topical Powder) 1 gm TOP DAILY [facility] Last Admin: 08/26/17 09:07 Dose: 1 applic Pantoprazole Sodium (Protonix Susp) 40 mg PO ACB [facility] Last Admin: 08/26/17 09:06 Dose: 40 mg Phenol/Menthol (Phenaseptic 1.4% Throat [place]) 0 ml MT Q2H PRN PRN Reason: Sore Throat Last Admin: 08/23/17 09:51 Dose: 1 spr Vancomycin HCl (Vancocin 25 Mg/Ml (Oral Use)) 250 mg PO QID [facility] PRN Reason: Protocol Last Admin: 08/26/17 09:09 Dose: 250 mg Zinc Sulfate (Zinc Sulfate 220 Mg Cap) 220 mg PO DAILY [facility] Last Admin: 08/26/17 09:07 Dose: 220 mg - Labs Labs: 08/26/17 05:20 08/26/17 05:20 PT 12.5 SECONDS (9.4-12.5) 08/17/17 05:45 INR 1.09 (0.93-1.08) H 08/17/17 05:45 APTT 27.7 Seconds (25.1-36.5) 08/17/17 05:45 - Constitutional Appears: Non-toxic, No Acute Distress - Head Exam Head Exam: NORMAL INSPECTION - Eye Exam Eye Exam: Normal appearance - ENT Exam ENT Exam: Mucous Membranes Moist - Neck Exam Additional comments: trach collar - Respiratory Exam Respiratory Exam: NORMAL BREATHING PATTERN - Cardiovascular Exam Cardiovascular Exam: REGULAR RHYTHM - GI/Abdominal Exam GI & Abdominal Exam: Distended, Soft - Extremities Exam Extremities Exam: Pedal Edema - Neurological Exam Neurological Exam: Alert, Awake Assessment and Plan - Assessment and Plan (Free Text) Assessment: Patient is a 67 year old female with history of asthma, arthritis, anemia, and obesity who was originally admitted for right lower extremity cellulitis and UTI. During her hospitalization course she developed acute hypercapneic respiratory failure secondary to asthma/RA airway disease/kyphoscoliosis in setting of cdiff colitis. s/p trach. Patient is alert and awake. Currently afebrile, hemodynamically stable, on NGT feeds. Patient failed swallow eval. Plan: Hypercapnic Respiratory Failure-resolved - patient Alert and awake - patient is status post trach - continue to monitor respiratory status - continue with duonebs, pulmicort - Weaning protocol - Chest physiotherapy - Suction q4h - OOB to chair with physical therapy - Pulmonary toilet - conservative fluid management - speech and swallow evaluation failed today, recommend NPO, full liquids chronic Abdominal Distension - CT Abdomen Pelvis with PO and IV Contrast (07/18):Interstitial and airspace disease in the lung bases; mild cardiomegaly and atherosclerotic disease; fatty liver; gallstones; mild ileus, no obstruction; constipation with fecal impaction - repeat CT abd on 08/20 showed Fluid-filled, dilated colon, with air fluid levels. Findings consistent with rapid small bowel transit, Nonspecific enteritis, Small bowel is decompressed. No evidence of small bowel obstruction. - abdominal flat plate-No acute changes or findings - rectal tube was placed, draining well, abd soft, slightly distended - will continue to monitor Normocytic anemia - hgb 8.0 this morning - consider transfuse if Hbg < 7.0 - continue feosol - Monitor daily Hypokalemia-resolved - will continue to monitor correct as needed Acute Kidney injury - improving, returned to baseline - Monitor and maintain MAP > 65 - Monitor Input/Output, daily weights and renal function with basic metabolic panel - supplement electrolytes as needed - weekly vitamin D supplements - hold BILLY/ARB HTN - controlled - BP reviewed, trended, and appreciated - hold zestril due to CATE h/o hypothyriodism - continue synthroid 50mcg daily hypocalcemia -continue daily calcium -continue to monitor Prophylaxis: - GI ppx Protonix - DVT ppx: Heparin
[2017-08-26] MEDS: Ergocalciferol 50,000 Intl Units Cap PO SCH (16:17)
--- NOTE | 2017-08-26 19:17 | CP.PCM.PN ---
Subjective - Date & Time of Evaluation Date of Evaluation: 08/26/17 Time of Evaluation: 18:00 - Subjective Subjective: Infectious Disease Follow Up: August 26, 2017 67 yo female presenting with 3 weeks of RLE ulceration, swelling and leaking from the wound as well as multiple falls in the past 3 weeks. The patient has an extensive medical history of asthma, arthritis, vitamin C deficiency, and possible thyroid disease. Draining RLE ulceration... cellulitis improved/resolved. Multiple chronic medical issues. Still with persistent dry cough. Otherwise stable. Mild erythema and excoriation of the folds in the abdomen and under the breasts. UTI with Klebsiella earlier in hospitalization but had treatment with Cipro that is now completed. Social Issues. The patient had respiratory distress with no improvement from BiPAP. Patient required intubation and ventilation. Transferred to MICU for further care. The patient was started on Zyvox and Aztreonam IV. Patient had a positive C. Diff antigen but negative toxin. Remains ventilated today. Appears stable. Chest X-ray not showing new findings. No leukocytosis. Cultures pending... so far negative. Patient unable to be weaned from ventilator. Supportive care. No fevers or leukocytosis. First two Procalcitonin equivocal. The patient had hypothermia ranging from 93.0 F starting from two days ago. Temperature did rise back up to 99.0 F and has been hovering around 97.7 F. Rechecking procalcitonin... now at 1.49. Difficulty from weaning from the ventilator. Patient is opening eyes and tracking now. Creatinine has been improving and is down to 0.9 from 1.1 from 1.2 from 1.3 from 1.5 from 2.0 now. Mild elevation in WBC to 11. Open tracheostomy done 08/17/2017. Failed ventilator weaning during this hospitalization. Patient has completed antibiotic regimens and is off antibiotics at this time except for PO Vancomycin. Patient is awake and alert. So far stable. Still having diarrhea episodes. Last C. Diff antigen positive. Objective - Vital Signs/Intake and Output Vital Signs (last 24 hours): Temp Pulse Resp BP Pulse Ox 98.0 F 89 40 H 127/60 100 08/26/17 12:00 08/26/17 16:52 08/26/17 16:40 08/26/17 16:00 08/26/17 16:40 Intake and Output: 08/26/17 08/27/17 18:59 06:59 Intake Total 740 Output Total 520 Balance 220 - Medications Medications: Current Medications Acetaminophen (Tylenol 325mg Tab) 650 mg PO Q6H PRN PRN Reason: Pain, moderate (4-7) Last Admin: 08/20/17 09:49 Dose: 650 mg Albuterol/Ipratropium (Duoneb 3 Mg/0.5 Mg (3 Ml) Ud) 3 ml IH [id number] PRN PRN Reason: SOB Last Admin: 08/20/17 19:10 Dose: 3 ml Albuterol/Ipratropium (Duoneb 3 Mg/0.5 Mg (3 Ml) Ud) 3 ml IH [id number] [facility] Last Admin: 08/26/17 16:18 Dose: 3 ml Budesonide (Pulmicort Respules) 0.5 mg IH [id number] [facility] Last Admin: 08/26/17 07:22 Dose: 0.5 mg Calcium Carbonate (Caltrate) 600 mg PO BID [facility] Last Admin: 08/26/17 18:04 Dose: 600 mg Ergocalciferol (Drisdol 50,000 Intl Units Cap) 1 cap PO Q7D [facility] Last Admin: 08/26/17 16:17 Dose: 1 cap Ferrous Sulfate (Feosol Liq) 300 mg PO TID [facility] Last Admin: 08/26/17 18:33 Dose: 300 mg Guaifenesin/Codeine Phosphate (Robitussin W/Codeine) 5 ml PO Q4H PRN PRN Reason: Cough and congestion Last Admin: 08/26/17 03:38 Dose: 5 ml Heparin Sodium (Porcine) (Heparin) 5,000 units SC Q12 [facility] PRN Reason: Protocol Last Admin: 08/26/17 09:07 Dose: 5,000 units Insulin Human Lispro (Humalog Med) 0 units SC Q6H [facility] PRN Reason: Protocol Last Admin: 08/26/17 18:32 Dose: Not Given Levothyroxine Sodium (Synthroid) 50 mcg IVP DAILY [facility] Last Admin: 08/26/17 09:06 Dose: 50 mcg Multivitamins/Vitamin C (Multi-Delyn Liquid) 15 ml PO 0800 [facility] Last Admin: 08/26/17 09:06 Dose: 15 ml Nystatin (Nystop Topical Powder) 1 gm TOP DAILY [facility] Last Admin: 08/26/17 09:07 Dose: 1 applic Pantoprazole Sodium (Protonix Susp) 40 mg PO ACB [facility] Last Admin: 08/26/17 09:06 Dose: 40 mg Phenol/Menthol (Phenaseptic 1.4% Throat [place]) 0 ml MT Q2H PRN PRN Reason: Sore Throat Last Admin: 08/23/17 09:51 Dose: 1 spr Vancomycin HCl (Vancocin 25 Mg/Ml (Oral Use)) 250 mg PO QID [facility] PRN Reason: Protocol Last Admin: 08/26/17 18:02 Dose: 250 mg Zinc Sulfate (Zinc Sulfate 220 Mg Cap) 220 mg PO DAILY [facility] Last Admin: 08/26/17 09:07 Dose: 220 mg - Labs Labs: 08/26/17 05:20 08/26/17 05:20 PT 12.5 SECONDS (9.4-12.5) 08/17/17 05:45 INR 1.09 (0.93-1.08) H 08/17/17 05:45 APTT 27.7 Seconds (25.1-36.5) 08/17/17 05:45 - Constitutional Appears: Non-toxic, No Acute Distress, Chronically Ill - Head Exam Additional comments: trach and ventilated. - Eye Exam Eye Exam: EOMI, PERRL Pupil Exam: NORMAL ACCOMODATION, PERRL - ENT Exam ENT Exam: Mucous Membranes Moist, Normal External Ear Exam, TM's Normal Bilaterally - Neck Exam Neck Exam: Full ROM, Normal Inspection - Respiratory Exam Respiratory Exam: Decreased Breath Sounds, NORMAL BREATHING PATTERN. absent: Rales, Rhonchi, Wheezes - Cardiovascular Exam Cardiovascular Exam: REGULAR RHYTHM, RRR, +S1, +S2 - GI/Abdominal Exam GI & Abdominal Exam: Soft, Normal Bowel Sounds. absent: Distended, Tenderness - Extremities Exam Extremities Exam: Full ROM, Normal Inspection - Neurological Exam Neurological Exam: Alert, Awake, CN II-XII Intact, Oriented x3 - Psychiatric Exam Psychiatric exam: Normal Affect, Normal Mood - Skin Skin Exam: Intact, Normal Color Assessment and Plan - Assessment and Plan (Free Text) Assessment: 67 yo female with multiple medical issues with PCN allergy diagnosed as a teenager verified by an Single Needle Operator. The patient with leukocytosis. Await cultures especially urine cultures. Diabetes and HTN history? Local wound care. Elevated ESR and C-reactive protein. Completed Vancomycin and Aztreonam for antibiotic coverage. UTI with E. coli sensitive to Azactam. Was on Vancomycin for cellulitis IV. For UTI for 5-7 days treatment... completed. Supportive care. Cellulitis appears improved. No new issues. Social issues currently. Homeless at this time. CT scan of chest done. No infiltrates seen. Afebrile the past 24 hours. Mild congestion noted in CT with small pulmonary effusions. No leukocytosis. Slightly elevated procalcitonin (0.66) which is undefined without stronger evidence for pneumonia. When encouraged, she is able to use the incentive spirometer without issues and ambulate with minimal difficulty. Repeat procalcitonin showing 0.71. UTI with Klebsiella. Sensitive to Cipro. Was on Cipro for 5 day course at 500mg PO BID. Completed the antibiotic course. Stable currently. No new issues. Off antibiotics at this time. Multiple social issues. Chronic cough still with periods of hacking. Complained of Vague mild general pains. During this hospitalization, the patient developed respiratory failure and required intubation. Started on Zyvox and Aztreonam IV. Will add Flagyl as well. No leukocytosis. Noted C. Diff with positive antigen but negative toxin. Supportive care. Remains intubated and ventilated. Cultures pending. C. Diff negative to date. No leukocytosis or fever reported. Essentially clear X-ray. Hypothermia episodes most of yesterday to this morning. Antibiotic courses completed. Noted gram positive cocci in most recent urine culture. Still awaiting identification. Supportive care. Patient did improve mentally. Still difficulty in weaning off respirator. She remains intubated. Failed weaning from vent. Tracheotomy performed 08/17/2017. Patient is awake and alert. Currently off antibiotics. 08/23/2017 C. Diff testing was positive for antigen and negative for toxin. Supportive care. Still with watery diarrhea. Started on PO Vancomycin for C. Diff. No new issues. Thank you for allowing me to participate in the care of the patient, we will follow with you.
[2017-08-27] MEDS: Insulin Lispro (humaLOG) MEDIUM Coverage SC SCH ×3 (00:15→13:33)
[2017-08-27] MEDS: guaiFENesin-Codeine 100-10mg/5ml Syrup (5 ml) UD PO PRN (01:20)
[2017-08-27] MEDS: Albuterol-Ipratrop 3 mg / 0.5 (3 ml) UD IH SCH ×7 (01:47→23:21)
[2017-08-27 07:06] LABS: ALB/GLOB RATIO 0.9 (1.1-1.8); ALBUMIN 2.9 g/dL (3.0-4.8); ALT/SGPT 24 U/L (7-56); AST/SGOT 31 U/L (14-36); BASO # 0.05 K/mm3 (0.0-2.0); BASO % 0.8 % (0.0-3.0); BLOOD UREA NITROGEN 9 mg/dL (7-21); EOS # 0.2 (0.0-0.7); EOS % 3.9 % (1.5-5.0); GFR AFRICAN-AMERICAN > 60; GFR NON-AFRICAN AMERICAN > 60; GRAN # 3.54 (1.4-6.5); GRAN % 59.9 % (50.0-68.0); LYMPH # 1.4 (1.2-3.4); LYMPH % 23.9 % (22.0-35.0); MEAN CELL VOLUME 90.6 fl (80.0-105.0); MEAN CORPUSCULAR HEMOGLOBIN 26.8 pg (25.0-35.0); MEAN CORPUSCULAR HGB CONC 29.6 g/dl (31.0-37.0); MEAN PLATELET VOLUME 8.9 fl (7.0-11.0); MONO # 0.7 (0.1-0.6); MONO % 11.5 % (1.0-6.0); RBC 2.98 10^6/uL (3.5-6.1); RED CELL DISTRIBUTION WIDTH 24.3 % (11.5-14.5); WHITE BLOOD COUNT 5.9 10^3/ul (4.5-11.0)
[2017-08-27] MEDS: Budesonide 0.5 mg/2 ml Inhal Susp UD IH SCH ×3 (07:31→20:15)
[2017-08-27 09:28] LABS: MAGNESIUM 1.4 mg/dL (1.7-2.2)
[2017-08-27] MEDS: Nystatin 100,000 Units/gm Topical Pow(15 gm) TOP SCH (10:35)
[2017-08-27] MEDS: Ferrous Sulfate 300 mg/5 mL Liq UD PO SCH ×3 (10:35→17:44)
[2017-08-27] MEDS: Levothyroxine 100 mcg (0.1 mg) Inj IVP SCH (10:35)
[2017-08-27] MEDS: Multi Vitamins 15 mL UD Oral Solution PO SCH (10:36)
[2017-08-27] MEDS: Pantoprazole 40 mg Susp UD PO SCH (10:36)
[2017-08-27] MEDS: Vancomycin 25 MG/ML PO SCH ×4 (10:36→21:34)
--- NOTE | 2017-08-27 13:30 | CP.PCM.PN ---
<Shan Zepeda - Last Filed: 08/27/17 14:17> Subjective - Date & Time of Evaluation Date of Evaluation: 08/27/17 Time of Evaluation: 06:00 - Subjective Subjective: Patient seen and evaluated bedside. No acute issues overnight. Patient on trach collar. unable to obtain full ROS. Objective - Vital Signs/Intake and Output Vital Signs (last 24 hours): Temp Pulse Resp BP Pulse Ox 97.9 F 88 44 H 160/90 H 99 08/27/17 04:00 08/27/17 06:20 08/27/17 06:20 08/27/17 04:00 08/27/17 06:20 Intake and Output: 08/27/17 08/27/17 06:59 18:59 Output Total 400 Balance -400 - Medications Medications: Current Medications Acetaminophen (Tylenol 325mg Tab) 650 mg PO Q6H PRN PRN Reason: Pain, moderate (4-7) Last Admin: 08/20/17 09:49 Dose: 650 mg Albuterol/Ipratropium (Duoneb 3 Mg/0.5 Mg (3 Ml) Ud) 3 ml IH [id number] PRN PRN Reason: SOB Last Admin: 08/20/17 19:10 Dose: 3 ml Albuterol/Ipratropium (Duoneb 3 Mg/0.5 Mg (3 Ml) Ud) 3 ml IH [id number] [facility] Last Admin: 08/27/17 11:08 Dose: 3 ml Budesonide (Pulmicort Respules) 0.5 mg IH [id number] [facility] Last Admin: 08/27/17 07:31 Dose: 0.5 mg Calcium Carbonate (Caltrate) 600 mg PO BID [facility] Last Admin: 08/27/17 10:36 Dose: 600 mg Ergocalciferol (Drisdol 50,000 Intl Units Cap) 1 cap PO Q7D [facility] Last Admin: 08/26/17 16:17 Dose: 1 cap Ferrous Sulfate (Feosol Liq) 300 mg PO TID [facility] Last Admin: 08/27/17 13:24 Dose: 300 mg Guaifenesin/Codeine Phosphate (Robitussin W/Codeine) 5 ml PO Q4H PRN PRN Reason: Cough and congestion Last Admin: 08/27/17 01:20 Dose: 5 ml Heparin Sodium (Porcine) (Heparin) 5,000 units SC Q12 [facility] PRN Reason: Protocol Last Admin: 08/27/17 10:36 Dose: 5,000 units Insulin Human Lispro (Humalog Med) 0 units SC Q6H [facility] PRN Reason: Protocol Last Admin: 08/27/17 06:04 Dose: Not Given Levothyroxine Sodium (Synthroid) 50 mcg IVP DAILY [facility] Last Admin: 08/27/17 10:35 Dose: 50 mcg Multivitamins/Vitamin C (Multi-Delyn Liquid) 15 ml PO 0800 [facility] Last Admin: 08/27/17 10:36 Dose: 15 ml Nystatin (Nystop Topical Powder) 1 gm TOP DAILY [facility] Last Admin: 08/27/17 10:35 Dose: 1 applic Pantoprazole Sodium (Protonix Susp) 40 mg PO ACB [facility] Last Admin: 08/27/17 10:36 Dose: 40 mg Phenol/Menthol (Phenaseptic 1.4% Throat [place]) 0 ml MT Q2H PRN PRN Reason: Sore Throat Last Admin: 08/23/17 09:51 Dose: 1 spr Vancomycin HCl (Vancocin 25 Mg/Ml (Oral Use)) 250 mg PO QID [facility] PRN Reason: Protocol Last Admin: 08/27/17 13:24 Dose: 250 mg Zinc Sulfate (Zinc Sulfate 220 Mg Cap) 220 mg PO DAILY [facility] Last Admin: 08/27/17 10:36 Dose: 220 mg - Labs Labs: 08/27/17 05:30 08/27/17 05:30 PT 12.5 SECONDS (9.4-12.5) 08/17/17 05:45 INR 1.09 (0.93-1.08) H 08/17/17 05:45 APTT 27.7 Seconds (25.1-36.5) 08/17/17 05:45 - Constitutional Appears: Non-toxic, No Acute Distress - Head Exam Head Exam: NORMAL INSPECTION, NORMOCEPHALIC - Eye Exam Eye Exam: Normal appearance - ENT Exam ENT Exam: Mucous Membranes Moist - Neck Exam Neck Exam: absent: Lymphadenopathy - Respiratory Exam Respiratory Exam: Clear to Ausculation Bilateral, NORMAL BREATHING PATTERN - Cardiovascular Exam Cardiovascular Exam: REGULAR RHYTHM - GI/Abdominal Exam GI & Abdominal Exam: Distended, Soft - Extremities Exam Extremities Exam: Pedal Edema - Neurological Exam Neurological Exam: Alert, Awake Assessment and Plan - Assessment and Plan (Free Text) Assessment: Patient is a 67 year old female with history of asthma, arthritis, anemia, and obesity who was originally admitted for right lower extremity cellulitis and UTI. During her hospitalization course she developed acute hypercapneic respiratory failure secondary to asthma/RA airway disease/kyphoscoliosis in setting of cdiff colitis. s/p trach. Patient is alert and awake. Currently afebrile, hemodynamically stable, on NGT feeds. Patient passed swallow eval today for thick nectar. Plan: Hypercapnic Respiratory Failure-resolved - patient Alert and awake - patient is status post trach - continue to monitor respiratory status - continue with [place], pulmicort - Weaning protocol - Chest physiotherapy - Suction q4h - OOB to chair with physical therapy - Pulmonary toilet - conservative fluid management - speech and swallow evaluation recommended, pureed, thicck nectar in addition to tube feedings chronic Abdominal Distension - CT Abdomen Pelvis with PO and IV Contrast (07/18):Interstitial and airspace disease in the lung bases; mild cardiomegaly and atherosclerotic disease; fatty liver; gallstones; mild ileus, no obstruction; constipation with fecal impaction - repeat CT abd on 08/20 showed Fluid-filled, dilated colon, with air fluid levels. Findings consistent with rapid small bowel transit, Nonspecific enteritis, Small bowel is decompressed. No evidence of small bowel obstruction. - abdominal flat plate-No acute changes or findings - rectal tube was placed, draining well, abd soft, slightly distended - will continue to monitor Normocytic anemia - hgb 8.0 this morning - consider transfuse if Hbg < 7.0 - continue feosol - Monitor daily Hypokalemia-resolved - will continue to monitor correct as needed Acute Kidney injury - improving, returned to baseline - Monitor and maintain MAP > 65 - Monitor Input/Output, daily weights and renal function with basic metabolic panel - supplement electrolytes as needed - weekly vitamin D supplements - hold BILLY/ARB HTN - controlled - BP reviewed, trended, and appreciated - hold zestril due to CATE h/o hypothyriodism - continue synthroid 50mcg daily hypocalcemia -continue daily calcium -continue to monitor Prophylaxis: - GI ppx Protonix - DVT ppx: Heparin <Max Liriano - Last Filed: 08/28/17 13:32> Objective - Vital Signs/Intake and Output Vital Signs (last 24 hours): Temp Pulse Resp BP Pulse Ox 98 F 90 34 H 147/70 100 08/28/17 04:00 08/28/17 08:00 08/28/17 08:00 08/28/17 08:00 08/28/17 08:00 Intake and Output: 08/28/17 08/28/17 06:59 18:59 Intake Total 700 Output Total 800 Balance -100 - Medications Medications: Current Medications Acetaminophen (Tylenol 325mg Tab) 650 mg PO Q6H PRN PRN Reason: Pain, moderate (4-7) Last Admin: 08/20/17 09:49 Dose: 650 mg Albuterol/Ipratropium (Duoneb 3 Mg/0.5 Mg (3 Ml) Ud) 3 ml IH [id number] PRN PRN Reason: SOB Last Admin: 08/28/17 01:40 Dose: 3 ml Albuterol/Ipratropium (Duoneb 3 Mg/0.5 Mg (3 Ml) Ud) 3 ml IH [id number] [facility] Last Admin: 08/28/17 11:53 Dose: 3 ml Budesonide (Pulmicort Respules) 0.5 mg IH [id number] [facility] Last Admin: 08/28/17 07:33 Dose: 0.5 mg Calcium Carbonate (Caltrate) 600 mg PO BID [facility] Last Admin: 08/28/17 10:10 Dose: 600 mg Diphenhydramine HCl (Benadryl) 25 mg IVP Q4H PRN PRN Reason: Allergy symptoms Last Admin: 08/28/17 02:22 Dose: 25 mg Ergocalciferol (Drisdol 50,000 Intl Units Cap) 1 cap PO Q7D [facility] Last Admin: 08/26/17 16:17 Dose: 1 cap Ferrous Sulfate (Feosol Liq) 300 mg PO TID [facility] Last Admin: 08/28/17 10:09 Dose: 300 mg Guaifenesin/Codeine Phosphate (Robitussin W/Codeine) 5 ml PO Q4H PRN PRN Reason: Cough and congestion Last Admin: 08/28/17 00:27 Dose: 5 ml Heparin Sodium (Porcine) (Heparin) 5,000 units SC Q12 [facility] PRN Reason: Protocol Last Admin: 08/28/17 10:09 Dose: 5,000 units Insulin Human Lispro (Humalog Med) 0 units SC Q6H [facility] PRN Reason: Protocol Last Admin: 08/28/17 11:15 Dose: Not Given Levothyroxine Sodium (Synthroid) 50 mcg IVP DAILY [facility] Last Admin: 08/28/17 10:09 Dose: 50 mcg Multivitamins/Vitamin C (Multi-Delyn Liquid) 15 ml PO 0800 [facility] Last Admin: 08/28/17 08:22 Dose: 15 ml Nystatin (Nystop Topical Powder) 1 gm TOP DAILY [facility] Last Admin: 08/28/17 10:10 Dose: 1 applic Pantoprazole Sodium (Protonix Susp) 40 mg PO ACB [facility] Last Admin: 08/28/17 08:22 Dose: 40 mg Phenol/Menthol (Phenaseptic 1.4% Throat [place]) 0 ml MT Q2H PRN PRN Reason: Sore Throat Last Admin: 08/27/17 17:45 Dose: 1 spr Vancomycin HCl (Vancocin 25 Mg/Ml (Oral Use)) 250 mg PO QID [facility] PRN Reason: Protocol Last Admin: 08/28/17 10:08 Dose: 250 mg Zinc Sulfate (Zinc Sulfate 220 Mg Cap) 220 mg PO DAILY [facility] Last Admin: 08/28/17 10:10 Dose: 220 mg - Labs Labs: 08/28/17 07:57 08/28/17 07:57 PT 12.5 SECONDS (9.4-12.5) 08/17/17 05:45 INR 1.09 (0.93-1.08) H 08/17/17 05:45 APTT 27.7 Seconds (25.1-36.5) 08/17/17 05:45 Attending/Attestation - Attestation I have personally seen and examined this patient.: Yes I have fully participated in the care of the patient.: Yes I have reviewed all pertinent clinical information, including history, physical exam and plan: Yes Notes (Text): 08/28/17 13:31 Patient was seen and examined with medical surgical tech. Family is at bed side. 67 Yrs. old female with PMH of Morbid Obesity,COPD, sleep apnea had prolong course in the hospital complicated by hypercapnic resp failure due to COPD exacerbation and obesity hypoventilation, acute renal failure and Pneumonia , was unable to wean off , now on Trach collar Patient is afebrile, not wheezing. She is tolerating Trach collar Patient is off antibiotics for Pneumonia and is off steroid. Patient is on pureed, thick nectardiet, but still high risk for aspiration. Acute renal failure has resolved.Creatinin is back to noprmal. Prognosis is guarded.
[2017-08-27] MEDS: Phenol Topical 1.4% Throat Spray (180 ml) MT PRN ×2 (13:35→17:45)
--- NOTE | 2017-08-27 17:18 | CP.PCM.PN ---
Subjective - Date & Time of Evaluation Date of Evaluation: 08/27/17 Time of Evaluation: 17:00 - Subjective Subjective: Infectious Disease Follow Up: August 27, 2017 67 yo female presenting with 3 weeks of RLE ulceration, swelling and leaking from the wound as well as multiple falls in the past 3 weeks. The patient has an extensive medical history of asthma, arthritis, vitamin C deficiency, and possible thyroid disease. Draining RLE ulceration... cellulitis improved/resolved. Multiple chronic medical issues. Still with persistent dry cough. Otherwise stable. Mild erythema and excoriation of the folds in the abdomen and under the breasts. UTI with Klebsiella earlier in hospitalization but had treatment with Cipro that is now completed. Social Issues. The patient had respiratory distress with no improvement from BiPAP. Patient required intubation and ventilation. Transferred to MICU for further care. The patient was started on Zyvox and Aztreonam IV. Patient had a positive C. Diff antigen but negative toxin. Remains ventilated today. Appears stable. Chest X-ray not showing new findings. No leukocytosis. Cultures pending... so far negative. Patient unable to be weaned from ventilator. Supportive care. No fevers or leukocytosis. First two Procalcitonin equivocal. The patient had hypothermia ranging from 93.0 F starting from two days ago. Temperature did rise back up to 99.0 F and has been hovering around 97.7 F. Rechecking procalcitonin... now at 1.49. Difficulty from weaning from the ventilator. Patient is opening eyes and tracking now. Creatinine has been improving and is down to 0.9 from 1.1 from 1.2 from 1.3 from 1.5 from 2.0 now. Mild elevation in WBC to 11. Open tracheostomy done 08/17/2017. Failed ventilator weaning during this hospitalization. Patient has completed antibiotic regimens and is off antibiotics at this time except for PO Vancomycin. Patient is awake and alert. So far stable. Still having diarrhea episodes. Last C. Diff antigen positive. Objective - Vital Signs/Intake and Output Vital Signs (last 24 hours): Temp Pulse Resp BP Pulse Ox 97.9 F 93 H 45 H 160/90 H 97 08/27/17 04:00 08/27/17 16:05 08/27/17 16:00 08/27/17 04:00 08/27/17 16:00 Intake and Output: 08/27/17 08/27/17 06:59 18:59 Output Total 400 Balance -400 - Medications Medications: Current Medications Acetaminophen (Tylenol 325mg Tab) 650 mg PO Q6H PRN PRN Reason: Pain, moderate (4-7) Last Admin: 08/20/17 09:49 Dose: 650 mg Albuterol/Ipratropium (Duoneb 3 Mg/0.5 Mg (3 Ml) Ud) 3 ml IH [id number] PRN PRN Reason: SOB Last Admin: 08/20/17 19:10 Dose: 3 ml Albuterol/Ipratropium (Duoneb 3 Mg/0.5 Mg (3 Ml) Ud) 3 ml IH [id number] [facility] Last Admin: 08/27/17 15:50 Dose: 3 ml Budesonide (Pulmicort Respules) 0.5 mg IH [id number] [facility] Last Admin: 08/27/17 07:31 Dose: 0.5 mg Calcium Carbonate (Caltrate) 600 mg PO BID [facility] Last Admin: 08/27/17 10:36 Dose: 600 mg Ergocalciferol (Drisdol 50,000 Intl Units Cap) 1 cap PO Q7D [facility] Last Admin: 08/26/17 16:17 Dose: 1 cap Ferrous Sulfate (Feosol Liq) 300 mg PO TID [facility] Last Admin: 08/27/17 13:24 Dose: 300 mg Guaifenesin/Codeine Phosphate (Robitussin W/Codeine) 5 ml PO Q4H PRN PRN Reason: Cough and congestion Last Admin: 08/27/17 01:20 Dose: 5 ml Heparin Sodium (Porcine) (Heparin) 5,000 units SC Q12 [facility]AR PRN Reason: Protocol Last Admin: 08/27/17 10:36 Dose: 5,000 units Insulin Human Lispro (Humalog Med) 0 units SC Q6H [facility] PRN Reason: Protocol Last Admin: 08/27/17 13:33 Dose: Not Given Levothyroxine Sodium (Synthroid) 50 mcg IVP DAILY [facility] Last Admin: 08/27/17 10:35 Dose: 50 mcg Multivitamins/Vitamin C (Multi-Delyn Liquid) 15 ml PO 0800 [facility] Last Admin: 08/27/17 10:36 Dose: 15 ml Nystatin (Nystop Topical Powder) 1 gm TOP DAILY [facility] Last Admin: 08/27/17 10:35 Dose: 1 applic Pantoprazole Sodium (Protonix Susp) 40 mg PO ACB [facility] Last Admin: 08/27/17 10:36 Dose: 40 mg Phenol/Menthol (Phenaseptic 1.4% Throat [place]) 0 ml MT Q2H PRN PRN Reason: Sore Throat Last Admin: 08/27/17 13:35 Dose: 1 spr Vancomycin HCl (Vancocin 25 Mg/Ml (Oral Use)) 250 mg PO QID [facility] PRN Reason: Protocol Last Admin: 08/27/17 13:24 Dose: 250 mg Zinc Sulfate (Zinc Sulfate 220 Mg Cap) 220 mg PO DAILY [facility] Last Admin: 08/27/17 10:36 Dose: 220 mg - Labs Labs: 08/27/17 05:30 08/27/17 05:30 PT 12.5 SECONDS (9.4-12.5) 08/17/17 05:45 INR 1.09 (0.93-1.08) H 08/17/17 05:45 APTT 27.7 Seconds (25.1-36.5) 08/17/17 05:45 - Constitutional Appears: Non-toxic, No Acute Distress, Younger Than Stated Age - Head Exam Additional comments: trach and vented. - Eye Exam Eye Exam: EOMI, PERRL Pupil Exam: NORMAL ACCOMODATION, PERRL - ENT Exam ENT Exam: Mucous Membranes Moist, Normal External Ear Exam, TM's Normal Bilaterally - Neck Exam Neck Exam: Full ROM, Normal Inspection - Respiratory Exam Respiratory Exam: Clear to Ausculation Bilateral, NORMAL BREATHING PATTERN. absent: Rales, Rhonchi, Wheezes - Cardiovascular Exam Cardiovascular Exam: REGULAR RHYTHM, RRR, +S1, +S2 - GI/Abdominal Exam GI & Abdominal Exam: Soft, Normal Bowel Sounds. absent: Distended, Tenderness - Extremities Exam Extremities Exam: Full ROM, Normal Inspection - Neurological Exam Neurological Exam: Alert, Awake, CN II-XII Intact, Oriented x3 - Psychiatric Exam Psychiatric exam: Normal Affect, Normal Mood - Skin Skin Exam: Intact, Normal Color Assessment and Plan - Assessment and Plan (Free Text) Assessment: 67 yo female with multiple medical issues with PCN allergy diagnosed as a teenager verified by an Search Optimization Analyst. The patient with leukocytosis. Await cultures especially urine cultures. Diabetes and HTN history? Local wound care. Elevated ESR and C-reactive protein. Completed Vancomycin and Aztreonam for antibiotic coverage. UTI with E. coli sensitive to Azactam. Was on Vancomycin for cellulitis IV. For UTI for 5-7 days treatment... completed. Supportive care. Cellulitis appears improved. No new issues. Social issues currently. Homeless at this time. CT scan of chest done. No infiltrates seen. Afebrile the past 24 hours. Mild congestion noted in CT with small pulmonary effusions. No leukocytosis. Slightly elevated procalcitonin (0.66) which is undefined without stronger evidence for pneumonia. When encouraged, she is able to use the incentive spirometer without issues and ambulate with minimal difficulty. Repeat procalcitonin showing 0.71. UTI with Klebsiella. Sensitive to Cipro. Was on Cipro for 5 day course at 500mg PO BID. Completed the antibiotic course. Stable currently. No new issues. Off antibiotics at this time. Multiple social issues. Chronic cough still with periods of hacking. Complained of Vague mild general pains. During this hospitalization, the patient developed respiratory failure and required intubation. Started on Zyvox and Aztreonam IV. Will add Flagyl as well. No leukocytosis. Noted C. Diff with positive antigen but negative toxin. Supportive care. Remains intubated and ventilated. Cultures pending. C. Diff negative to date. No leukocytosis or fever reported. Essentially clear X-ray. Hypothermia episodes most of yesterday to this morning. Antibiotic courses completed. Noted gram positive cocci in most recent urine culture. Still awaiting identification. Supportive care. Patient did improve mentally. Still difficulty in weaning off respirator. She remains intubated. Failed weaning from vent. Tracheotomy performed 08/17/2017. Patient is awake and alert. Currently off antibiotics. 08/23/2017 C. Diff testing was positive for antigen and negative for toxin. Supportive care. Still with watery diarrhea. Started on PO Vancomycin for C. Diff. No new issues. Thank you for allowing me to participate in the care of the patient, we will follow with you.
[2017-08-28] MEDS: Insulin Lispro (humaLOG) MEDIUM Coverage SC SCH ×3 (00:25→11:15)
[2017-08-28] MEDS: guaiFENesin-Codeine 100-10mg/5ml Syrup (5 ml) UD PO PRN ×2 (00:27→15:48)
[2017-08-28] MEDS: Albuterol-Ipratrop 3 mg / 0.5 (3 ml) UD IH PRN (01:40)
[2017-08-28] MEDS ORDERED: DiphenhydrAMINE 50 mg/ml Inj IVP PRN (02:14)
[2017-08-28] MEDS: Albuterol-Ipratrop 3 mg / 0.5 (3 ml) UD IH SCH ×6 (05:25→23:58)
[2017-08-28] MEDS: Budesonide 0.5 mg/2 ml Inhal Susp UD IH SCH ×2 (07:33→19:30)
--- NOTE | 2017-08-28 07:41 | CP.PCM.PN ---
<Shan Zepeda - Last Filed: 08/28/17 10:29> Subjective - Date & Time of Evaluation Date of Evaluation: 08/28/17 Time of Evaluation: 06:00 - Subjective Subjective: Patient seen and evaluated bedside in ICU. No acute issues overnight. Patient denies any complaints. Currently on trach collar. Unable to obtain full ROS. Objective - Vital Signs/Intake and Output Vital Signs (last 24 hours): Temp Pulse Resp BP Pulse Ox 98 F 86 28 H 153/72 H 94 L 08/28/17 04:00 08/28/17 05:58 08/28/17 04:00 08/28/17 04:00 08/28/17 04:00 Intake and Output: 08/28/17 08/28/17 06:59 18:59 Intake Total 700 Output Total 800 Balance -100 - Medications Medications: Current Medications Acetaminophen (Tylenol 325mg Tab) 650 mg PO Q6H PRN PRN Reason: Pain, moderate (4-7) Last Admin: 08/20/17 09:49 Dose: 650 mg Albuterol/Ipratropium (Duoneb 3 Mg/0.5 Mg (3 Ml) Ud) 3 ml IH [id number] PRN PRN Reason: SOB Last Admin: 08/28/17 01:40 Dose: 3 ml Albuterol/Ipratropium (Duoneb 3 Mg/0.5 Mg (3 Ml) Ud) 3 ml IH [id number] [facility] Last Admin: 08/28/17 07:33 Dose: 3 ml Budesonide (Pulmicort Respules) 0.5 mg IH [id number] [facility] Last Admin: 08/28/17 07:33 Dose: 0.5 mg Calcium Carbonate (Caltrate) 600 mg PO BID [facility] Last Admin: 08/27/17 17:44 Dose: 600 mg Diphenhydramine HCl (Benadryl) 25 mg IVP Q4H PRN PRN Reason: Allergy symptoms Last Admin: 08/28/17 02:22 Dose: 25 mg Ergocalciferol (Drisdol 50,000 Intl Units Cap) 1 cap PO Q7D [facility] Last Admin: 08/26/17 16:17 Dose: 1 cap Ferrous Sulfate (Feosol Liq) 300 mg PO TID [facility] Last Admin: 08/27/17 17:44 Dose: 300 mg Guaifenesin/Codeine Phosphate (Robitussin W/Codeine) 5 ml PO Q4H PRN PRN Reason: Cough and congestion Last Admin: 08/28/17 00:27 Dose: 5 ml Heparin Sodium (Porcine) (Heparin) 5,000 units SC Q12 [facility]OBAR PRN Reason: Protocol Last Admin: 08/27/17 21:34 Dose: 5,000 units Insulin Human Lispro (Humalog Med) 0 units SC Q6H [facility] PRN Reason: Protocol Last Admin: 08/28/17 05:48 Dose: Not Given Levothyroxine Sodium (Synthroid) 50 mcg IVP DAILY [facility] Last Admin: 08/27/17 10:35 Dose: 50 mcg Multivitamins/Vitamin C (Multi-Delyn Liquid) 15 ml PO 0800 [facility] Last Admin: 08/27/17 10:36 Dose: 15 ml Nystatin (Nystop Topical Powder) 1 gm TOP DAILY [facility] Last Admin: 08/27/17 10:35 Dose: 1 applic Pantoprazole Sodium (Protonix Susp) 40 mg PO ACB [facility] Last Admin: 08/27/17 10:36 Dose: 40 mg Phenol/Menthol (Phenaseptic 1.4% Throat [place]) 0 ml MT Q2H PRN PRN Reason: Sore Throat Last Admin: 08/27/17 17:45 Dose: 1 spr Vancomycin HCl (Vancocin 25 Mg/Ml (Oral Use)) 250 mg PO QID [facility] PRN Reason: Protocol Last Admin: 08/27/17 21:34 Dose: 250 mg Zinc Sulfate (Zinc Sulfate 220 Mg Cap) 220 mg PO DAILY [facility] Last Admin: 08/27/17 10:36 Dose: 220 mg - Labs Labs: 08/27/17 05:30 08/27/17 05:30 PT 12.5 SECONDS (9.4-12.5) 08/17/17 05:45 INR 1.09 (0.93-1.08) H 08/17/17 05:45 APTT 27.7 Seconds (25.1-36.5) 08/17/17 05:45 - Constitutional Appears: Non-toxic, No Acute Distress - Head Exam Head Exam: NORMAL INSPECTION, NORMOCEPHALIC - Eye Exam Eye Exam: Normal appearance - ENT Exam ENT Exam: Mucous Membranes Moist - Neck Exam Neck Exam: absent: Lymphadenopathy - Respiratory Exam Respiratory Exam: NORMAL BREATHING PATTERN - Cardiovascular Exam Cardiovascular Exam: REGULAR RHYTHM - GI/Abdominal Exam GI & Abdominal Exam: Distended, Soft - Extremities Exam Extremities Exam: Pedal Edema - Neurological Exam Neurological Exam: Alert, Awake, Oriented x3 Assessment and Plan - Assessment and Plan (Free Text) Assessment: Patient is a 67 year old female with history of asthma, arthritis, anemia, and obesity who was originally admitted for right lower extremity cellulitis and UTI. During her hospitalization course she developed acute hypercapnic respiratory failure secondary to asthma/RA airway disease/kyphoscoliosis in setting of cdiff colitis. s/p trach. Patient is alert and awake. Currently afebrile, hemodynamically stable, on NGT feeds. Patient passed swallow eval today for thick nectar. Plan: Hypercapnic Respiratory Failure-resolved - patient Alert and awake - patient is status post trach - continue to monitor respiratory status - continue with duonebs, pulmicort - Weaning protocol - Chest physiotherapy - Suction q4h - OOB to chair with physical therapy - Pulmonary toilet - conservative fluid management - speech and swallow evaluation recommended, pureed, thick nectar in addition to tube feedings chronic Abdominal Distension - CT Abdomen Pelvis with PO and IV Contrast (07/18):Interstitial and airspace disease in the lung bases; mild cardiomegaly and atherosclerotic disease; fatty liver; gallstones; mild ileus, no obstruction; constipation with fecal impaction - repeat CT abd on 08/20 showed Fluid-filled, dilated colon, with air fluid levels. Findings consistent with rapid small bowel transit, Nonspecific enteritis, Small bowel is decompressed. No evidence of small bowel obstruction. - abdominal flat plate-No acute changes or findings - rectal tube was placed, draining well, abd soft, slightly distended - will continue to monitor Normocytic anemia - hgb 8.6 this morning - consider transfuse if Hbg < 7.0 - continue feosol - Monitor daily Hypokalemia-resolved - will continue to monitor correct as needed Acute Kidney injury - improving, returned to baseline - Monitor and maintain MAP > 65 - Monitor Input/Output, daily weights and renal function with basic metabolic panel - supplement electrolytes as needed - weekly vitamin D supplements - hold BILLY/ARB HTN - controlled - BP reviewed, trended, and appreciated - hold zestril due to CATE h/o hypothyriodism - continue synthroid 50mcg daily hypocalcemia -continue daily calcium -continue to monitor Prophylaxis: - GI ppx Protonix - DVT ppx: Heparin <[email or web address] - Last Filed: 08/28/17 13:33> Objective - Vital Signs/Intake and Output Vital Signs (last 24 hours): Temp Pulse Resp BP Pulse Ox 98 F 90 34 H 147/70 100 08/28/17 04:00 08/28/17 08:00 08/28/17 08:00 08/28/17 08:00 08/28/17 08:00 Intake and Output: 08/28/17 08/28/17 06:59 18:59 Intake Total 700 Output Total 800 Balance -100 - Medications Medications: Current Medications Acetaminophen (Tylenol 325mg Tab) 650 mg PO Q6H PRN PRN Reason: Pain, moderate (4-7) Last Admin: 08/20/17 09:49 Dose: 650 mg Albuterol/Ipratropium (Duoneb 3 Mg/0.5 Mg (3 Ml) Ud) 3 ml IH [id number] PRN PRN Reason: SOB Last Admin: 08/28/17 01:40 Dose: 3 ml Albuterol/Ipratropium (Duoneb 3 Mg/0.5 Mg (3 Ml) Ud) 3 ml IH [id number] [facility] Last Admin: 08/28/17 11:53 Dose: 3 ml Budesonide (Pulmicort Respules) 0.5 mg IH [id number] [facility] Last Admin: 08/28/17 07:33 Dose: 0.5 mg Calcium Carbonate (Caltrate) 600 mg PO BID [facility] Last Admin: 08/28/17 10:10 Dose: 600 mg Diphenhydramine HCl (Benadryl) 25 mg IVP Q4H PRN PRN Reason: Allergy symptoms Last Admin: 08/28/17 02:22 Dose: 25 mg Ergocalciferol (Drisdol 50,000 Intl Units Cap) 1 cap PO Q7D [facility] Last Admin: 08/26/17 16:17 Dose: 1 cap Ferrous Sulfate (Feosol Liq) 300 mg PO TID [facility] Last Admin: 08/28/17 10:09 Dose: 300 mg Guaifenesin/Codeine Phosphate (Robitussin W/Codeine) 5 ml PO Q4H PRN PRN Reason: Cough and congestion Last Admin: 08/28/17 00:27 Dose: 5 ml Heparin Sodium (Porcine) (Heparin) 5,000 units SC Q12 [facility]AR PRN Reason: Protocol Last Admin: 08/28/17 10:09 Dose: 5,000 units Insulin Human Lispro (Humalog Med) 0 units SC Q6H [facility] PRN Reason: Protocol Last Admin: 08/28/17 11:15 Dose: Not Given Levothyroxine Sodium (Synthroid) 50 mcg IVP DAILY [facility] Last Admin: 08/28/17 10:09 Dose: 50 mcg Multivitamins/Vitamin C (Multi-Delyn Liquid) 15 ml PO 0800 [facility] Last Admin: 08/28/17 08:22 Dose: 15 ml Nystatin (Nystop Topical Powder) 1 gm TOP DAILY [facility] Last Admin: 08/28/17 10:10 Dose: 1 applic Pantoprazole Sodium (Protonix Susp) 40 mg PO ACB [facility] Last Admin: 08/28/17 08:22 Dose: 40 mg Phenol/Menthol (Phenaseptic 1.4% Throat [place]) 0 ml MT Q2H PRN PRN Reason: Sore Throat Last Admin: 08/27/17 17:45 Dose: 1 spr Vancomycin HCl (Vancocin 25 Mg/Ml (Oral Use)) 250 mg PO QID [facility] PRN Reason: Protocol Last Admin: 08/28/17 10:08 Dose: 250 mg Zinc Sulfate (Zinc Sulfate 220 Mg Cap) 220 mg PO DAILY [facility] Last Admin: 08/28/17 10:10 Dose: 220 mg - Labs Labs: 08/28/17 07:57 08/28/17 07:57 PT 12.5 SECONDS (9.4-12.5) 08/17/17 05:45 INR 1.09 (0.93-1.08) H 08/17/17 05:45 APTT 27.7 Seconds (25.1-36.5) 08/17/17 05:45 Attending/Attestation - Attestation I have personally seen and examined this patient.: Yes I have fully participated in the care of the patient.: Yes I have reviewed all pertinent clinical information, including history, physical exam and plan: Yes Notes (Text): 08/28/17 13:32 Patient was seen and examined with medical planner. Family is at bed side. 67 Yrs. old female with PMH of Morbid Obesity,COPD, sleep apnea was admitted with leg cellulitis and COPD exacerbation, had prolong course in the hospital complicated by hypercapnic resp failure due to COPD exacerbation and obesity hypoventilation, acute renal failure and Pneumonia , was unable to be wean off , now on Trach collar Patient is afebrile, not wheezing. She is tolerating Trach collarPatient is off antibiotics for Pneumonia and is off steroid. Patient is on pureed, thick nectardiet, but still high risk for aspiration. Acute renal failure has resolved.Creatinin is back to noprmal. Prognosis is guarded.
[2017-08-28 08:16] LABS: ALB/GLOB RATIO 0.9 (1.1-1.8); ALBUMIN 3.3 g/dL (3.0-4.8); ALT/SGPT 34 U/L (7-56); AST/SGOT 30 U/L (14-36); BASO # 0.05 K/mm3 (0.0-2.0); BASO % 0.7 % (0.0-3.0); BLOOD UREA NITROGEN 11 mg/dL (7-21); CALCIUM 8.5 mg/dL (8.4-10.5); EOS # 0.3 (0.0-0.7); EOS % 4.2 % (1.5-5.0); GFR AFRICAN-AMERICAN > 60; GFR NON-AFRICAN AMERICAN > 60; GRAN # 3.97 (1.4-6.5); GRAN % 57.4 % (50.0-68.0); HEMOGLOBIN 8.6 g/dL (12.0-16.0); LYMPH # 1.8 (1.2-3.4); LYMPH % 25.8 % (22.0-35.0); MEAN CELL VOLUME 88.7 fl (80.0-105.0); MEAN CORPUSCULAR HEMOGLOBIN 26.4 pg (25.0-35.0); MEAN CORPUSCULAR HGB CONC 29.8 g/dl (31.0-37.0); MEAN PLATELET VOLUME 8.8 fl (7.0-11.0); MONO # 0.8 (0.1-0.6); MONO % 11.9 % (1.0-6.0); RBC 3.26 10^6/uL (3.5-6.1); RED CELL DISTRIBUTION WIDTH 23.3 % (11.5-14.5); WHITE BLOOD COUNT 6.9 10^3/ul (4.5-11.0)
[2017-08-28] MEDS: Pantoprazole 40 mg Susp UD PO SCH (08:22)
[2017-08-28] MEDS: Multi Vitamins 15 mL UD Oral Solution PO SCH (08:22)
[2017-08-28] MEDS: Vancomycin 25 MG/ML PO SCH ×4 (10:08→21:43)
[2017-08-28] MEDS: Levothyroxine 100 mcg (0.1 mg) Inj IVP SCH (10:09)
[2017-08-28] MEDS: Ferrous Sulfate 300 mg/5 mL Liq UD PO SCH ×3 (10:09→17:00)
[2017-08-28] MEDS: Nystatin 100,000 Units/gm Topical Pow(15 gm) TOP SCH (10:10)
--- NOTE | 2017-08-28 19:20 | CP.PCM.PN ---
Subjective - Date & Time of Evaluation Date of Evaluation: 08/28/17 Time of Evaluation: 18:00 - Subjective Subjective: Infectious Disease Follow Up: August 28, 2017 67 yo female presenting with 3 weeks of RLE ulceration, swelling and leaking from the wound as well as multiple falls in the past 3 weeks. The patient has an extensive medical history of asthma, arthritis, vitamin C deficiency, and possible thyroid disease. Draining RLE ulceration... cellulitis improved/resolved. Multiple chronic medical issues. Still with persistent dry cough. Otherwise stable. Mild erythema and excoriation of the folds in the abdomen and under the breasts. UTI with Klebsiella earlier in hospitalization but had treatment with Cipro that is now completed. Social Issues. The patient had respiratory distress with no improvement from BiPAP. Patient required intubation and ventilation. Transferred to MICU for further care. The patient was started on Zyvox and Aztreonam IV. Patient had a positive C. Diff antigen but negative toxin. Remains ventilated today. Appears stable. Chest X-ray not showing new findings. No leukocytosis. Cultures pending... so far negative. Patient unable to be weaned from ventilator. Supportive care. No fevers or leukocytosis. First two Procalcitonin equivocal. The patient had hypothermia ranging from 93.0 F starting from two days ago. Temperature did rise back up to 99.0 F and has been hovering around 97.7 F. Rechecking procalcitonin... now at 1.49. Difficulty from weaning from the ventilator. Patient is opening eyes and tracking now. Creatinine has been improving and is down to 0.9 from 1.1 from 1.2 from 1.3 from 1.5 from 2.0 now. No leukocytosis. Open tracheostomy done 08/17/2017. Failed ventilator weaning during this hospitalization. Patient has completed antibiotic regimens and is off antibiotics at this time except for PO Vancomycin. Patient is awake and alert. So far stable. Still having diarrhea episodes. Last C. Diff antigen positive. Overall stable. Objective - Vital Signs/Intake and Output Vital Signs (last 24 hours): Temp Pulse Resp BP Pulse Ox 98.8 F 88 17 161/78 H 95 08/28/17 15:52 08/28/17 18:00 08/28/17 18:00 08/28/17 16:00 08/28/17 18:00 Intake and Output: 08/28/17 08/29/17 18:59 06:59 Intake Total 500 Output Total 650 Balance -150 - Medications Medications: Current Medications Acetaminophen (Tylenol 325mg Tab) 650 mg PO Q6H PRN PRN Reason: Pain, moderate (4-7) Last Admin: 08/20/17 09:49 Dose: 650 mg Albuterol/Ipratropium (Duoneb 3 Mg/0.5 Mg (3 Ml) Ud) 3 ml IH [id number] PRN PRN Reason: SOB Last Admin: 08/28/17 01:40 Dose: 3 ml Albuterol/Ipratropium (Duoneb 3 Mg/0.5 Mg (3 Ml) Ud) 3 ml IH [id number] [facility] Last Admin: 08/28/17 16:20 Dose: 3 ml Budesonide (Pulmicort Respules) 0.5 mg IH [id number] [facility] Last Admin: 08/28/17 07:33 Dose: 0.5 mg Calcium Carbonate (Caltrate) 600 mg PO BID [facility] Last Admin: 08/28/17 17:00 Dose: 600 mg Diphenhydramine HCl (Benadryl) 25 mg IVP Q4H PRN PRN Reason: Allergy symptoms Last Admin: 08/28/17 02:22 Dose: 25 mg Ergocalciferol (Drisdol 50,000 Intl Units Cap) 1 cap PO Q7D [facility] Last Admin: 08/26/17 16:17 Dose: 1 cap Ferrous Sulfate (Feosol Liq) 300 mg PO TID [facility] Last Admin: 08/28/17 17:00 Dose: 300 mg Guaifenesin/Codeine Phosphate (Robitussin W/Codeine) 5 ml PO Q4H PRN PRN Reason: Cough and congestion Last Admin: 08/28/17 15:48 Dose: 5 ml Heparin Sodium (Porcine) (Heparin) 5,000 units SC Q12 [facility] PRN Reason: Protocol Last Admin: 08/28/17 10:09 Dose: 5,000 units Insulin Human Lispro (Humalog Med) 0 units SC Q6H [facility] PRN Reason: Protocol Last Admin: 08/28/17 11:15 Dose: Not Given Levothyroxine Sodium (Synthroid) 50 mcg IVP DAILY [facility] Last Admin: 08/28/17 10:09 Dose: 50 mcg Multivitamins/Vitamin C (Multi-Delyn Liquid) 15 ml PO 0800 [facility] Last Admin: 08/28/17 08:22 Dose: 15 ml Nystatin (Nystop Topical Powder) 1 gm TOP DAILY [facility] Last Admin: 08/28/17 10:10 Dose: 1 applic Pantoprazole Sodium (Protonix Susp) 40 mg PO ACB [facility] Last Admin: 08/28/17 08:22 Dose: 40 mg Phenol/Menthol (Phenaseptic 1.4% Throat [place]) 0 ml MT Q2H PRN PRN Reason: Sore Throat Last Admin: 08/27/17 17:45 Dose: 1 spr Vancomycin HCl (Vancocin 25 Mg/Ml (Oral Use)) 250 mg PO QID [facility] PRN Reason: Protocol Last Admin: 08/28/17 17:02 Dose: 250 mg Zinc Sulfate (Zinc Sulfate 220 Mg Cap) 220 mg PO DAILY [facility] Last Admin: 08/28/17 10:10 Dose: 220 mg - Labs Labs: 08/28/17 07:57 08/28/17 07:57 PT 12.5 SECONDS (9.4-12.5) 08/17/17 05:45 INR 1.09 (0.93-1.08) H 08/17/17 05:45 APTT 27.7 Seconds (25.1-36.5) 08/17/17 05:45 - Constitutional Appears: Non-toxic, No Acute Distress - Head Exam Additional comments: trach and vented. - Eye Exam Eye Exam: EOMI, PERRL Pupil Exam: NORMAL ACCOMODATION, PERRL - ENT Exam ENT Exam: Mucous Membranes Moist, Normal External Ear Exam, TM's Normal Bilaterally - Neck Exam Neck Exam: Full ROM, Normal Inspection - Respiratory Exam Respiratory Exam: Clear to Ausculation Bilateral, NORMAL BREATHING PATTERN. absent: Rales, Rhonchi, Wheezes - Cardiovascular Exam Cardiovascular Exam: REGULAR RHYTHM, RRR, +S1, +S2 - GI/Abdominal Exam GI & Abdominal Exam: Soft, Normal Bowel Sounds. absent: Distended, Tenderness - Extremities Exam Extremities Exam: Full ROM, Normal Inspection - Neurological Exam Neurological Exam: Alert, Awake, CN II-XII Intact, Oriented x3 - Psychiatric Exam Psychiatric exam: Normal Affect, Normal Mood - Skin Skin Exam: Intact, Normal Color Assessment and Plan - Assessment and Plan (Free Text) Assessment: 67 yo female with multiple medical issues with PCN allergy diagnosed as a teenager verified by an [employer]. The patient with leukocytosis. Await cultures especially urine cultures. Diabetes and HTN history? Local wound care. Elevated ESR and C-reactive protein. Completed Vancomycin and Aztreonam for antibiotic coverage. UTI with E. coli sensitive to Azactam. Was on Vancomycin for cellulitis IV. For UTI for 5-7 days treatment... completed. Supportive care. Cellulitis appears improved. No new issues. Social issues currently. Homeless at this time. CT scan of chest done. No infiltrates seen. Afebrile the past 24 hours. Mild congestion noted in CT with small pulmonary effusions. No leukocytosis. Slightly elevated procalcitonin (0.66) which is undefined without stronger evidence for pneumonia. When encouraged, she is able to use the incentive spirometer without issues and ambulate with minimal difficulty. Repeat procalcitonin showing 0.71. UTI with Klebsiella. Sensitive to Cipro. Was on Cipro for 5 day course at 500mg PO BID. Completed the antibiotic course. Stable currently. No new issues. Off antibiotics at this time. Multiple social issues. Chronic cough still with periods of hacking. Complained of Vague mild general pains. During this hospitalization, the patient developed respiratory failure and required intubation. Started on Zyvox and Aztreonam IV. Will add Flagyl as well. No leukocytosis. Noted C. Diff with positive antigen but negative toxin. Supportive care. Remains intubated and ventilated. Cultures pending. C. Diff negative to date. No leukocytosis or fever reported. Essentially clear X-ray. Hypothermia episodes most of yesterday to this morning. Antibiotic courses completed. Noted gram positive cocci in most recent urine culture. Still awaiting identification. Supportive care. Patient did improve mentally. Still difficulty in weaning off respirator. She remains intubated. Failed weaning from vent. Tracheotomy performed 08/17/2017. Patient is awake and alert. Currently off antibiotics. 08/23/2017 C. Diff testing was positive for antigen and negative for toxin. Supportive care. Continued on PO Vancomycin for C. Diff. No new issues. Sitting in chair for a few hours. Thank you for allowing me to participate in the care of the patient, we will follow with you.
[2017-08-29] MEDS: Albuterol-Ipratrop 3 mg / 0.5 (3 ml) UD IH SCH ×5 (04:30→19:41)
[2017-08-29] MEDS: Insulin Lispro (humaLOG) MEDIUM Coverage SC SCH ×4 (04:39→18:58)
[2017-08-29] MEDS: Budesonide 0.5 mg/2 ml Inhal Susp UD IH SCH ×2 (07:32→19:43)
[2017-08-29] MEDS: Multi Vitamins 15 mL UD Oral Solution PO SCH (08:21)
[2017-08-29] MEDS: Pantoprazole 40 mg Susp UD PO SCH (08:23)
[2017-08-29] MEDS: Nystatin 100,000 Units/gm Topical Pow(15 gm) TOP SCH (10:20)
[2017-08-29] MEDS: Vancomycin 25 MG/ML PO SCH ×4 (10:32→22:35)
[2017-08-29] MEDS: Levothyroxine 100 mcg (0.1 mg) Inj IVP SCH (10:33)
[2017-08-29] MEDS: Ferrous Sulfate 300 mg/5 mL Liq UD PO SCH ×3 (10:33→17:23)
--- NOTE | 2017-08-29 12:05 | CP.PCM.PN ---
<Yuan Wilkes - Last Filed: 08/29/17 11:32> Subjective - Date & Time of Evaluation Date of Evaluation: 08/29/17 Time of Evaluation: 11:33 - Subjective Subjective: Medicine Progress Note: Patient seen and evaluated at bedside in ICU. No acute issues overnight, per nursing staff. Patient currently without complaints. Patient denies any fever, chills, chest pain, SOB, abdominal pain and pain with urination. Objective - Vital Signs/Intake and Output Vital Signs (last 24 hours): Temp Pulse Resp BP Pulse Ox 98.1 F 105 H 46 H 118/58 L 98 08/29/17 00:00 08/29/17 08:00 08/29/17 08:00 08/29/17 08:00 08/29/17 08:00 Intake and Output: 08/29/17 08/29/17 06:59 18:59 Intake Total 50 Output Total 300 Balance -250 - Medications Medications: Current Medications Acetaminophen (Tylenol 325mg Tab) 650 mg PO Q6H PRN PRN Reason: Pain, moderate (4-7) Last Admin: 08/20/17 09:49 Dose: 650 mg Albuterol/Ipratropium (Duoneb 3 Mg/0.5 Mg (3 Ml) Ud) 3 ml IH [id number] PRN PRN Reason: SOB Last Admin: 08/28/17 01:40 Dose: 3 ml Albuterol/Ipratropium (Duoneb 3 Mg/0.5 Mg (3 Ml) Ud) 3 ml IH [id number] [facility] Last Admin: 08/29/17 11:12 Dose: 3 ml Budesonide (Pulmicort Respules) 0.5 mg IH [id number] [facility] Last Admin: 08/29/17 07:32 Dose: 0.5 mg Calcium Carbonate (Caltrate) 600 mg PO BID [facility] Last Admin: 08/29/17 10:33 Dose: 600 mg Diphenhydramine HCl (Benadryl) 25 mg IVP Q4H PRN PRN Reason: Allergy symptoms Last Admin: 08/28/17 02:22 Dose: 25 mg Ergocalciferol (Drisdol 50,000 Intl Units Cap) 1 cap PO Q7D [facility] Last Admin: 08/26/17 16:17 Dose: 1 cap Ferrous Sulfate (Feosol Liq) 300 mg PO TID [facility] Last Admin: 08/29/17 10:33 Dose: 300 mg Guaifenesin/Codeine Phosphate (Robitussin W/Codeine) 5 ml PO Q4H PRN PRN Reason: Cough and congestion Last Admin: 08/28/17 15:48 Dose: 5 ml Heparin Sodium (Porcine) (Heparin) 5,000 units SC Q12 [facility] PRN Reason: Protocol Last Admin: 08/29/17 10:33 Dose: 5,000 units Insulin Human Lispro (Humalog Med) 0 units SC Q6H [facility] PRN Reason: Protocol Last Admin: 08/29/17 08:22 Dose: Not Given Levothyroxine Sodium (Synthroid) 50 mcg IVP DAILY [facility] Last Admin: 08/29/17 10:33 Dose: 50 mcg Multivitamins/Vitamin C (Multi-Delyn Liquid) 15 ml PO 0800 [facility] Last Admin: 08/29/17 08:21 Dose: 15 ml Nystatin (Nystop Topical Powder) 1 gm TOP DAILY [facility] Last Admin: 08/28/17 10:10 Dose: 1 applic Pantoprazole Sodium (Protonix Susp) 40 mg PO ACB [facility] Last Admin: 08/29/17 08:23 Dose: 40 mg Phenol/Menthol (Phenaseptic 1.4% Throat [place]) 0 ml MT Q2H PRN PRN Reason: Sore Throat Last Admin: 08/27/17 17:45 Dose: 1 spr Vancomycin HCl (Vancocin 25 Mg/Ml (Oral Use)) 250 mg PO QID [facility] PRN Reason: Protocol Last Admin: 08/29/17 10:32 Dose: 250 mg Zinc Sulfate (Zinc Sulfate 220 Mg Cap) 220 mg PO DAILY [facility] Last Admin: 08/29/17 10:33 Dose: 220 mg - Labs Labs: 08/28/17 07:57 08/28/17 07:57 PT 12.5 SECONDS (9.4-12.5) 08/17/17 05:45 INR 1.09 (0.93-1.08) H 08/17/17 05:45 APTT 27.7 Seconds (25.1-36.5) 08/17/17 05:45 - Constitutional Appears: Non-toxic, No Acute Distress - Head Exam Head Exam: ATRAUMATIC, NORMAL INSPECTION, NORMOCEPHALIC - Eye Exam Eye Exam: Normal appearance - ENT Exam ENT Exam: Mucous Membranes Moist - Neck Exam Neck Exam: Full ROM, Normal Inspection. absent: Lymphadenopathy - Respiratory Exam Respiratory Exam: Clear to Ausculation Bilateral, NORMAL BREATHING PATTERN - Cardiovascular Exam Cardiovascular Exam: REGULAR RHYTHM, RRR - GI/Abdominal Exam GI & Abdominal Exam: Distended, Soft, Normal Bowel Sounds - Extremities Exam Extremities Exam: Normal Capillary Refill, Pedal Edema. absent: Normal Inspection - Neurological Exam Neurological Exam: Alert, Awake, Oriented x3 Assessment and Plan - Assessment and Plan (Free Text) Assessment: Patient is a 67 year old female with history of asthma, arthritis, anemia, and obesity who was originally admitted for right lower extremity cellulitis and UTI. During her hospitalization course she developed acute hypercapnic respiratory failure secondary to asthma, reactive airway disease and kyphoscoliosis in the setting of C. Diff colitis. S/P Trach. Patient is alert and awake. Currently afebrile and hemodynamically stable. Plan: 1. Hypercapnic Respiratory Failure s/p Trach -Most recent Chest X-Ray showing abnormal opacity at left base and lateral mid left lung -Duonebs 3ml IH [id number] scheduled and PRN -Pulmicort 0.5mg IH [id number] -Robitussin DM PO Q4H PRN -Continue Suctioning Q2H and Chest PT PRN -Speech and Swallow Evaluation recommendation for pureed diet with nectar thick liquids and extra gravy -Aspiration precautions -Pulmonology consulted, all recommendations appreciated -PT/OT Evaluation and Treatment 2. Chronic Abdominal Distention -CT Abdomen/Pelvis with IV Contrast showed fluid-filled, dilated colon, with air fluid levels consistent with rapid small bowel transit, nonspecific enteritis, and small bowel is decompressed -Rectal tube in place with adequate drainage -ID consulted, all recommendations appreciated 3. Normocytic Anemia -H/H at 8.6/26.9 on yesterdays AM CBC -Continue Feosol 300mg PO TID -Monitor with daily CBC's -Will consider transfusion if hemoglobin drops lower than 7.0 4. HTN -Holding home Zestril as patient had CATE during this hospital visit -Currently well controlled without medication -Monitor with Vital Signs Q4H 5. Hypothyriodism -Continue Synthroid 50mcg daily 6. Hypocalcemia -Continue Caltrate 600mg PO BID 7. Vitamin D Deficiency -Continue weekly Drisdol 8. Difficulty Sleeping -Continue Benadryl PRN GI ppx Protonix - DVT ppx: Heparin <Max Liriano - Last Filed: 08/29/17 15:30> Objective - Vital Signs/Intake and Output Vital Signs (last 24 hours): Temp Pulse Resp BP Pulse Ox 98.1 F 97 H 52 H 131/73 98 08/29/17 12:40 08/29/17 12:00 08/29/17 12:00 08/29/17 12:00 08/29/17 12:00 Intake and Output: 08/29/17 08/29/17 06:59 18:59 Intake Total 50 Output Total 300 Balance -250 - Medications Medications: Current Medications Acetaminophen (Tylenol 325mg Tab) 650 mg PO Q6H PRN PRN Reason: Pain, moderate (4-7) Last Admin: 08/20/17 09:49 Dose: 650 mg Albuterol/Ipratropium (Duoneb 3 Mg/0.5 Mg (3 Ml) Ud) 3 ml IH [id number] PRN PRN Reason: SOB Last Admin: 08/28/17 01:40 Dose: 3 ml Albuterol/Ipratropium (Duoneb 3 Mg/0.5 Mg (3 Ml) Ud) 3 ml IH [id number] [facility] Last Admin: 08/29/17 11:12 Dose: 3 ml Budesonide (Pulmicort Respules) 0.5 mg IH [id number] [facility] Last Admin: 08/29/17 07:32 Dose: 0.5 mg Calcium Carbonate (Caltrate) 600 mg PO BID [facility] Last Admin: 08/29/17 10:33 Dose: 600 mg Diphenhydramine HCl (Benadryl) 25 mg IVP Q4H PRN PRN Reason: Allergy symptoms Last Admin: 08/28/17 02:22 Dose: 25 mg Ergocalciferol (Drisdol 50,000 Intl Units Cap) 1 cap PO Q7D [facility] Last Admin: 08/26/17 16:17 Dose: 1 cap Ferrous Sulfate (Feosol Liq) 300 mg PO TID [facility] Last Admin: 08/29/17 13:23 Dose: 300 mg Guaifenesin/Codeine Phosphate (Robitussin W/Codeine) 5 ml PO Q4H PRN PRN Reason: Cough and congestion Last Admin: 08/28/17 15:48 Dose: 5 ml Heparin Sodium (Porcine) (Heparin) 5,000 units SC Q12 [facility] PRN Reason: Protocol Last Admin: 08/29/17 10:33 Dose: 5,000 units Insulin Human Lispro (Humalog Med) 0 units SC Q6H [facility] PRN Reason: Protocol Last Admin: 08/29/17 12:00 Dose: Not Given Levothyroxine Sodium (Synthroid) 50 mcg IVP DAILY [facility] Last Admin: 08/29/17 10:33 Dose: 50 mcg Multivitamins/Vitamin C (Multi-Delyn Liquid) 15 ml PO 0800 [facility] Last Admin: 08/29/17 08:21 Dose: 15 ml Nystatin (Nystop Topical Powder) 1 gm TOP DAILY [facility] Last Admin: 08/29/17 10:20 Dose: 1 applic Pantoprazole Sodium (Protonix Susp) 40 mg PO ACB [facility] Last Admin: 08/29/17 08:23 Dose: 40 mg Phenol/Menthol (Phenaseptic 1.4% Throat [place]) 0 ml MT Q2H PRN PRN Reason: Sore Throat Last Admin: 08/27/17 17:45 Dose: 1 spr Vancomycin HCl (Vancocin 25 Mg/Ml (Oral Use)) 250 mg PO QID [facility] PRN Reason: Protocol Last Admin: 08/29/17 13:21 Dose: 250 mg Zinc Sulfate (Zinc Sulfate 220 Mg Cap) 220 mg PO DAILY [facility] Last Admin: 08/29/17 10:33 Dose: 220 mg - Labs Labs: 08/28/17 07:57 08/28/17 07:57 PT 12.5 SECONDS (9.4-12.5) 08/17/17 05:45 INR 1.09 (0.93-1.08) H 08/17/17 05:45 APTT 27.7 Seconds (25.1-36.5) 08/17/17 05:45 Attending/Attestation - Attestation I have personally seen and examined this patient.: Yes I have fully participated in the care of the patient.: Yes I have reviewed all pertinent clinical information, including history, physical exam and plan: Yes Notes (Text): 08/29/17 15:29 Patient was seen and examined with medical secretary.Agreed with assessment and plan. 67 yrs old female with PMH of Morbid Obesity,COPD, sleep apnea was admitted with leg cellulitis and COPD exacerbation, had prolong course in the hospital complicated by hypercapnic resp failure due to COPD exacerbation and obesity hypoventilation, acute renal failure and Pneumonia , was unable to be wean off , now on Trach collar. She is tolerating Trach collarPatient is off antibiotics for Pneumonia and she is is off steroid.Patient is on pureed, thick nectardiet , but still high risk for aspiration.Acute renal failure has resolved. Creatinin is back to normal
--- NOTE | 2017-08-29 18:07 | CP.PCM.PN ---
Subjective - Date & Time of Evaluation Date of Evaluation: 08/29/17 Time of Evaluation: 18:00 - Subjective Subjective: Infectious Disease Follow Up: August 29, 2017 67 yo female presenting with 3 weeks of RLE ulceration, swelling and leaking from the wound as well as multiple falls in the past 3 weeks. The patient has an extensive medical history of asthma, arthritis, vitamin C deficiency, and possible thyroid disease. Draining RLE ulceration... cellulitis improved/resolved. Multiple chronic medical issues. Still with persistent dry cough. Otherwise stable. Mild erythema and excoriation of the folds in the abdomen and under the breasts. UTI with Klebsiella earlier in hospitalization but had treatment with Cipro that is now completed. Social Issues. The patient had respiratory distress with no improvement from BiPAP. Patient required intubation and ventilation. Transferred to MICU for further care. The patient was started on Zyvox and Aztreonam IV. Patient had a positive C. Diff antigen but negative toxin. Remains ventilated today. Appears stable. Chest X-ray not showing new findings. No leukocytosis. Cultures pending... so far negative. Patient unable to be weaned from ventilator. Supportive care. No fevers or leukocytosis. First two Procalcitonin equivocal. The patient had hypothermia ranging from 93.0 F starting from two days ago. Temperature did rise back up to 99.0 F and has been hovering around 97.7 F. Rechecking procalcitonin... now at 1.49. Difficulty from weaning from the ventilator. Patient is opening eyes and tracking now. Creatinine has been improving and is down to 0.9 from 1.1 from 1.2 from 1.3 from 1.5 from 2.0 now. No leukocytosis. Open tracheostomy done 08/17/2017. Failed ventilator weaning during this hospitalization. Patient has completed antibiotic regimens and is off antibiotics at this time except for PO Vancomycin. Patient is awake and alert. So far stable. Still having diarrhea episodes. Last C. Diff antigen positive. Overall stable. Objective - Vital Signs/Intake and Output Vital Signs (last 24 hours): Temp Pulse Resp BP Pulse Ox 98.1 F 92 H 59 H 131/73 96 08/29/17 12:40 08/29/17 16:00 08/29/17 16:00 08/29/17 12:00 08/29/17 16:00 Intake and Output: 08/29/17 08/29/17 06:59 18:59 Intake Total 50 Output Total 300 Balance -250 - Medications Medications: Current Medications Acetaminophen (Tylenol 325mg Tab) 650 mg PO Q6H PRN PRN Reason: Pain, moderate (4-7) Last Admin: 08/20/17 09:49 Dose: 650 mg Albuterol/Ipratropium (Duoneb 3 Mg/0.5 Mg (3 Ml) Ud) 3 ml IH [id number] PRN PRN Reason: SOB Last Admin: 08/28/17 01:40 Dose: 3 ml Albuterol/Ipratropium (Duoneb 3 Mg/0.5 Mg (3 Ml) Ud) 3 ml IH [id number] [facility] Last Admin: 08/29/17 16:15 Dose: 3 ml Budesonide (Pulmicort Respules) 0.5 mg IH [id number] [facility] Last Admin: 08/29/17 07:32 Dose: 0.5 mg Calcium Carbonate (Caltrate) 600 mg PO BID [facility] Last Admin: 08/29/17 17:23 Dose: 600 mg Diphenhydramine HCl (Benadryl) 25 mg IVP Q4H PRN PRN Reason: Allergy symptoms Last Admin: 08/28/17 02:22 Dose: 25 mg Ergocalciferol (Drisdol 50,000 Intl Units Cap) 1 cap PO Q7D [facility] Last Admin: 08/26/17 16:17 Dose: 1 cap Ferrous Sulfate (Feosol Liq) 300 mg PO TID [facility] Last Admin: 08/29/17 17:23 Dose: 300 mg Guaifenesin/Codeine Phosphate (Robitussin W/Codeine) 5 ml PO Q4H PRN PRN Reason: Cough and congestion Last Admin: 08/28/17 15:48 Dose: 5 ml Heparin Sodium (Porcine) (Heparin) 5,000 units SC Q12 [facility] PRN Reason: Protocol Last Admin: 08/29/17 10:33 Dose: 5,000 units Insulin Human Lispro (Humalog Med) 0 units SC Q6H [facility] PRN Reason: Protocol Last Admin: 08/29/17 12:00 Dose: Not Given Levothyroxine Sodium (Synthroid) 50 mcg IVP DAILY [facility] Last Admin: 08/29/17 10:33 Dose: 50 mcg Multivitamins/Vitamin C (Multi-Delyn Liquid) 15 ml PO 0800 [facility] Last Admin: 08/29/17 08:21 Dose: 15 ml Nystatin (Nystop Topical Powder) 1 gm TOP DAILY [facility] Last Admin: 08/29/17 10:20 Dose: 1 applic Pantoprazole Sodium (Protonix Susp) 40 mg PO ACB [facility] Last Admin: 08/29/17 08:23 Dose: 40 mg Phenol/Menthol (Phenaseptic 1.4% Throat [place]) 0 ml MT Q2H PRN PRN Reason: Sore Throat Last Admin: 08/27/17 17:45 Dose: 1 spr Vancomycin HCl (Vancocin 25 Mg/Ml (Oral Use)) 250 mg PO QID [facility] PRN Reason: Protocol Last Admin: 08/29/17 17:23 Dose: 250 mg Zinc Sulfate (Zinc Sulfate 220 Mg Cap) 220 mg PO DAILY [facility] Last Admin: 08/29/17 10:33 Dose: 220 mg - Labs Labs: 08/28/17 07:57 08/28/17 07:57 PT 12.5 SECONDS (9.4-12.5) 08/17/17 05:45 INR 1.09 (0.93-1.08) H 08/17/17 05:45 APTT 27.7 Seconds (25.1-36.5) 08/17/17 05:45 - Constitutional Appears: Non-toxic, No Acute Distress - Head Exam Additional comments: trach and vented - Eye Exam Eye Exam: EOMI, PERRL Pupil Exam: NORMAL ACCOMODATION, PERRL - ENT Exam ENT Exam: Mucous Membranes Moist, Normal External Ear Exam, TM's Normal Bilaterally - Neck Exam Neck Exam: Full ROM, Normal Inspection - Respiratory Exam Respiratory Exam: Clear to Ausculation Bilateral, NORMAL BREATHING PATTERN. absent: Rales, Rhonchi, Wheezes - Cardiovascular Exam Cardiovascular Exam: REGULAR RHYTHM, RRR, +S1, +S2 - GI/Abdominal Exam GI & Abdominal Exam: Soft, Normal Bowel Sounds. absent: Distended, Tenderness - Extremities Exam Extremities Exam: Full ROM, Normal Inspection - Neurological Exam Neurological Exam: Alert, Awake, CN II-XII Intact, Oriented x3 - Psychiatric Exam Psychiatric exam: Normal Affect, Normal Mood - Skin Skin Exam: Intact, Normal Color Assessment and Plan - Assessment and Plan (Free Text) Assessment: 67 yo female with multiple medical issues with PCN allergy diagnosed as a teenager verified by an Entry Level Receptionist. The patient with leukocytosis. Await cultures especially urine cultures. Diabetes and HTN history? Local wound care. Elevated ESR and C-reactive protein. Completed Vancomycin and Aztreonam for antibiotic coverage. UTI with E. coli sensitive to Azactam. Was on Vancomycin for cellulitis IV. For UTI for 5-7 days treatment... completed. Supportive care. Cellulitis appears improved. No new issues. Social issues currently. Homeless at this time. CT scan of chest done. No infiltrates seen. Afebrile the past 24 hours. Mild congestion noted in CT with small pulmonary effusions. No leukocytosis. Slightly elevated procalcitonin (0.66) which is undefined without stronger evidence for pneumonia. When encouraged, she is able to use the incentive spirometer without issues and ambulate with minimal difficulty. Repeat procalcitonin showing 0.71. UTI with Klebsiella. Sensitive to Cipro. Was on Cipro for 5 day course at 500mg PO BID. Completed the antibiotic course. Stable currently. No new issues. Off antibiotics at this time. Multiple social issues. Chronic cough still with periods of hacking. Complained of Vague mild general pains. During this hospitalization, the patient developed respiratory failure and required intubation. Started on Zyvox and Aztreonam IV. Will add Flagyl as well. No leukocytosis. Noted C. Diff with positive antigen but negative toxin. Supportive care. Remains intubated and ventilated. Cultures pending. C. Diff negative to date. No leukocytosis or fever reported. Essentially clear X-ray. Hypothermia episodes most of yesterday to this morning. Antibiotic courses completed. Noted gram positive cocci in most recent urine culture. Still awaiting identification. Supportive care. Patient did improve mentally. Still difficulty in weaning off respirator. She remains intubated. Failed weaning from vent. Tracheotomy performed 08/17/2017. Patient is awake and alert. Currently off antibiotics. 08/23/2017 C. Diff testing was positive for antigen and negative for toxin. Supportive care. Continued on PO Vancomycin for C. Diff. No new issues. Sitting in chair for a few hours. Thank you for allowing me to participate in the care of the patient, we will follow with you.
[2017-08-30] MEDS: Albuterol-Ipratrop 3 mg / 0.5 (3 ml) UD IH SCH ×7 (00:10→23:16)
[2017-08-30] MEDS: Insulin Lispro (humaLOG) MEDIUM Coverage SC SCH ×4 (06:00→17:51)
[2017-08-30 07:07] LABS: BASO # 0.06 K/mm3 (0.0-2.0); BASO % 0.8 % (0.0-3.0); EOS # 0.2 (0.0-0.7); GRAN # 4.95 (1.4-6.5); GRAN % 62.3 % (50.0-68.0); HEMOGLOBIN 8.7 g/dL (12.0-16.0); LYMPH # 1.8 (1.2-3.4); LYMPH % 22.6 % (22.0-35.0); MEAN CELL VOLUME 88.4 fl (80.0-105.0); MEAN CORPUSCULAR HEMOGLOBIN 26.5 pg (25.0-35.0); MEAN PLATELET VOLUME 8.8 fl (7.0-11.0); MONO # 0.9 (0.1-0.6); MONO % 11.3 % (1.0-6.0); RBC 3.28 10^6/uL (3.5-6.1); RED CELL DISTRIBUTION WIDTH 23.3 % (11.5-14.5)
[2017-08-30 07:36] LABS: ALB/GLOB RATIO 0.9 (1.1-1.8); ALBUMIN 3.2 g/dL (3.0-4.8); ALT/SGPT 34 U/L (7-56); AST/SGOT 43 U/L (14-36); BLOOD UREA NITROGEN 13 mg/dL (7-21); CALCIUM 9.6 mg/dL (8.4-10.5); GFR AFRICAN-AMERICAN > 60; GFR NON-AFRICAN AMERICAN 55
[2017-08-30] MEDS: Budesonide 0.5 mg/2 ml Inhal Susp UD IH SCH ×2 (07:53→19:39)
[2017-08-30] MEDS: Pantoprazole 40 mg Susp UD PO SCH (08:25)
[2017-08-30] MEDS: Multi Vitamins 15 mL UD Oral Solution PO SCH (08:25)
[2017-08-30] MEDS ORDERED: Potassium Chloride 20 mEq ER Tab PO ONE (09:10)
[2017-08-30] MEDS: Ferrous Sulfate 300 mg/5 mL Liq UD PO SCH ×3 (09:58→17:47)
[2017-08-30] MEDS: Levothyroxine 100 mcg (0.1 mg) Inj IVP SCH (09:58)
[2017-08-30] MEDS: Nystatin 100,000 Units/gm Topical Pow(15 gm) TOP SCH (09:59)
--- NOTE | 2017-08-30 17:04 | CP.PCM.PN ---
<Wendi Borja - Last Filed: 08/30/17 17:01> Subjective - Date & Time of Evaluation Date of Evaluation: 08/30/17 Time of Evaluation: 17:01 - Subjective Subjective: Medicine note for Dr. Rodriguez. Patient seen and examined at bedside. Patient resting comfortably in bed but complaining of continued lower abdominal pain. No acute events overnight per nursing. Patient denies chest pain, SOB, headache, nausea, vomiting, LE pain/ swelling. Objective - Vital Signs/Intake and Output Vital Signs (last 24 hours): Temp Pulse Resp BP Pulse Ox 98.5 F 104 H 44 H 147/77 96 08/30/17 16:00 08/30/17 16:00 08/30/17 16:00 08/30/17 16:00 08/30/17 16:00 - Medications Medications: Current Medications Acetaminophen (Tylenol 325mg Tab) 650 mg PO Q6H PRN PRN Reason: Pain, moderate (4-7) Last Admin: 08/20/17 09:49 Dose: 650 mg Albuterol/Ipratropium (Duoneb 3 Mg/0.5 Mg (3 Ml) Ud) 3 ml IH [id number] PRN PRN Reason: SOB Last Admin: 08/28/17 01:40 Dose: 3 ml Albuterol/Ipratropium (Duoneb 3 Mg/0.5 Mg (3 Ml) Ud) 3 ml IH [id number] [facility] Last Admin: 08/30/17 16:15 Dose: 3 ml Budesonide (Pulmicort Respules) 0.5 mg IH [id number] [facility] Last Admin: 08/30/17 07:53 Dose: 0.5 mg Calcium Carbonate (Caltrate) 600 mg PO BID [facility] Last Admin: 08/30/17 09:58 Dose: 600 mg Diphenhydramine HCl (Benadryl) 25 mg IVP Q4H PRN PRN Reason: Allergy symptoms Last Admin: 08/28/17 02:22 Dose: 25 mg Ergocalciferol (Drisdol 50,000 Intl Units Cap) 1 cap PO Q7D [facility] Last Admin: 08/26/17 16:17 Dose: 1 cap Ferrous Sulfate (Feosol Liq) 300 mg PO TID [facility] Last Admin: 08/30/17 13:13 Dose: 300 mg Guaifenesin/Codeine Phosphate (Robitussin W/Codeine) 5 ml PO Q4H PRN PRN Reason: Cough and congestion Last Admin: 08/28/17 15:48 Dose: 5 ml Heparin Sodium (Porcine) (Heparin) 5,000 units SC Q12 [facility] PRN Reason: Protocol Last Admin: 08/30/17 09:58 Dose: 5,000 units Insulin Human Lispro (Humalog Med) 0 units SC Q6H [facility] PRN Reason: Protocol Last Admin: 08/30/17 12:12 Dose: Not Given Levothyroxine Sodium (Synthroid) 50 mcg IVP DAILY [facility] Last Admin: 08/30/17 09:58 Dose: 50 mcg Multivitamins/Vitamin C (Multi-Delyn Liquid) 15 ml PO 0800 [facility] Last Admin: 08/30/17 08:25 Dose: 15 ml Nystatin (Nystop Topical Powder) 1 gm TOP DAILY [facility] Last Admin: 08/30/17 09:59 Dose: 1 applic Pantoprazole Sodium (Protonix Susp) 40 mg PO ACB [facility] Last Admin: 08/30/17 08:25 Dose: 40 mg Phenol/Menthol (Phenaseptic 1.4% Throat [place]) 0 ml MT Q2H PRN PRN Reason: Sore Throat Last Admin: 08/27/17 17:45 Dose: 1 spr Zinc Sulfate (Zinc Sulfate 220 Mg Cap) 220 mg PO DAILY [facility] Last Admin: 08/30/17 09:57 Dose: 220 mg - Labs Labs: 08/30/17 06:25 08/30/17 06:25 PT 12.5 SECONDS (9.4-12.5) 08/17/17 05:45 INR 1.09 (0.93-1.08) H 08/17/17 05:45 APTT 27.7 Seconds (25.1-36.5) 08/17/17 05:45 - Constitutional Appears: Non-toxic, No Acute Distress, Chronically Ill - Head Exam Head Exam: ATRAUMATIC, NORMAL INSPECTION, NORMOCEPHALIC - Eye Exam Eye Exam: EOMI, Normal appearance - ENT Exam Additional comments: trach in place - Respiratory Exam Respiratory Exam: Clear to Ausculation Bilateral. absent: Rales, Rhonchi, Wheezes Additional comments: tachypnea - Cardiovascular Exam Cardiovascular Exam: Tachycardia, REGULAR RHYTHM, +S1, +S2. absent: Murmur - GI/Abdominal Exam GI & Abdominal Exam: Distended, Soft, Tenderness (lower quadrants b/l), Hyperactive Bowel Sounds (moreso in epigastric region) - Extremities Exam Extremities Exam: absent: Calf Tenderness - Neurological Exam Neurological Exam: Alert, Awake - Skin Skin Exam: Dry, Intact, Normal Color, Warm Assessment and Plan - Assessment and Plan (Free Text) Assessment: Patient is a 67 year old female with history of asthma, arthritis, anemia, and obesity who was originally admitted for right lower extremity cellulitis and UTI. She developed acute hypercapnic respiratory failure secondary to asthma, reactive airway disease and kyphoscoliosis. C. Diff antigen positive, toxin negative. S/P Trach. Patient is alert and awake. Currently afebrile and hemodynamically stable. Plan: Hypercapnic Respiratory Failure s/p Trach -Chest X-Ray showing abnormal opacity at left base and lateral mid left lung -Duonebs 3ml IH [id number] scheduled and PRN -Pulmicort 0.5mg IH [id number] -Robitussin DM PO Q4H PRN -completed antibiotic course of zyvox and aztreonam -Continue Suctioning Q2H and Chest PT PRN -Speech and Swallow Evaluation recommendation for pureed diet with nectar thick liquids and extra gravy -Aspiration precautions -Pulmonology consulted, all recommendations appreciated -PT/OT Evaluation and Treatment Chronic Abdominal Distention -C. Diff antigen positive, C. diff toxin negative -CT Abdomen/Pelvis with IV Contrast showed fluid-filled, dilated colon, with air fluid levels consistent with rapid small bowel transit, nonspecific enteritis, and small bowel is decompressed -Rectal tube no longer in place - removed over weekend -ID consulted, all recommendations appreciated Normocytic Anemia -H/H at 8.02/27 -Continue Feosol 300mg PO TID -Monitor with daily CBC's -Will consider transfusion if needed HTN -Holding home Zestril as patient had CATE during this hospital visit -Currently well controlled without medication -Monitor with Vital Signs Q4H Hypothyriodism -Continue Synthroid 50mcg daily Hypocalcemia -Continue Caltrate 600mg PO BID Vitamin D Deficiency -Continue weekly Drisdol Difficulty Sleeping -Continue Benadryl PRN GI: Protonix DVT: Heparin <Juan Rodriguez - Last Filed: 08/30/17 18:31> Objective - Vital Signs/Intake and Output Vital Signs (last 24 hours): Temp Pulse Resp BP Pulse Ox 98.5 F 104 H 44 H 147/77 96 08/30/17 16:00 08/30/17 16:00 08/30/17 16:00 08/30/17 16:00 08/30/17 16:00 - Medications Medications: Current Medications Acetaminophen (Tylenol 325mg Tab) 650 mg PO Q6H PRN PRN Reason: Pain, moderate (4-7) Last Admin: 08/20/17 09:49 Dose: 650 mg Albuterol/Ipratropium (Duoneb 3 Mg/0.5 Mg (3 Ml) Ud) 3 ml IH [id number] PRN PRN Reason: SOB Last Admin: 08/28/17 01:40 Dose: 3 ml Albuterol/Ipratropium (Duoneb 3 Mg/0.5 Mg (3 Ml) Ud) 3 ml IH [id number] [facility] Last Admin: 08/30/17 16:15 Dose: 3 ml Budesonide (Pulmicort Respules) 0.5 mg IH [id number] [facility] Last Admin: 08/30/17 07:53 Dose: 0.5 mg Calcium Carbonate (Caltrate) 600 mg PO BID [facility] Last Admin: 08/30/17 17:47 Dose: 600 mg Diphenhydramine HCl (Benadryl) 25 mg IVP Q4H PRN PRN Reason: Allergy symptoms Last Admin: 08/28/17 02:22 Dose: 25 mg Ergocalciferol (Drisdol 50,000 Intl Units Cap) 1 cap PO Q7D [facility] Last Admin: 08/26/17 16:17 Dose: 1 cap Ferrous Sulfate (Feosol Liq) 300 mg PO TID [facility] Last Admin: 08/30/17 17:47 Dose: 300 mg Guaifenesin/Codeine Phosphate (Robitussin W/Codeine) 5 ml PO Q4H PRN PRN Reason: Cough and congestion Last Admin: 08/28/17 15:48 Dose: 5 ml Heparin Sodium (Porcine) (Heparin) 5,000 units SC Q12 [facility]OBAR PRN Reason: Protocol Last Admin: 08/30/17 09:58 Dose: 5,000 units Insulin Human Lispro (Humalog Med) 0 units SC Q6H [facility] PRN Reason: Protocol Last Admin: 08/30/17 17:51 Dose: Not Given Levothyroxine Sodium (Synthroid) 50 mcg IVP DAILY [facility] Last Admin: 08/30/17 09:58 Dose: 50 mcg Multivitamins/Vitamin C (Multi-Delyn Liquid) 15 ml PO 0800 [facility] Last Admin: 08/30/17 08:25 Dose: 15 ml Nystatin (Nystop Topical Powder) 1 gm TOP DAILY [facility] Last Admin: 08/30/17 09:59 Dose: 1 applic Pantoprazole Sodium (Protonix Susp) 40 mg PO ACB [facility] Last Admin: 08/30/17 08:25 Dose: 40 mg Phenol/Menthol (Phenaseptic 1.4% Throat [place]) 0 ml MT Q2H PRN PRN Reason: Sore Throat Last Admin: 08/27/17 17:45 Dose: 1 spr Zinc Sulfate (Zinc Sulfate 220 Mg Cap) 220 mg PO DAILY [facility] Last Admin: 08/30/17 09:57 Dose: 220 mg - Labs Labs: 08/30/17 06:25 08/30/17 06:25 PT 12.5 SECONDS (9.4-12.5) 08/17/17 05:45 INR 1.09 (0.93-1.08) H 08/17/17 05:45 APTT 27.7 Seconds (25.1-36.5) 08/17/17 05:45 Attending/Attestation - Attestation I have personally seen and examined this patient.: Yes I have fully participated in the care of the patient.: Yes I have reviewed all pertinent clinical information, including history, physical exam and plan: Yes Notes (Text): 08/30/17 18:28 67 year old female with past medical history of COPD who initially presented with cellulitis and UTI. Hospital course was complicated with COPD exacerbation, hypercapnic respiratory failure s/p intubation. Patient is now s/p trach, on trach collar. S/p antibiotics for pneumonia and steroids taper. She had enteritis on recent CT abd/pelvis. Symptoms improved after rectal tube was placed. Continue to monitor anemia closely. She is on po iron supplementation. CATE has resolved. Will replete and repeat lytes. Juan Rodriguez MD Hospitalist.
--- NOTE | 2017-08-30 19:29 | CP.PCM.PN ---
Subjective - Date & Time of Evaluation Date of Evaluation: 08/30/17 Time of Evaluation: 18:30 - Subjective Subjective: Infectious Disease Follow Up: August 30, 2017 67 yo female presenting with 3 weeks of RLE ulceration, swelling and leaking from the wound as well as multiple falls in the past 3 weeks. The patient has an extensive medical history of asthma, arthritis, vitamin C deficiency, and possible thyroid disease. Draining RLE ulceration... cellulitis improved/resolved. Multiple chronic medical issues. Still with persistent dry cough. Otherwise stable. Mild erythema and excoriation of the folds in the abdomen and under the breasts. UTI with Klebsiella earlier in hospitalization but had treatment with Cipro that is now completed. Social Issues. The patient had respiratory distress with no improvement from BiPAP. Patient required intubation and ventilation. Transferred to MICU for further care. The patient was started on Zyvox and Aztreonam IV. Patient had a positive C. Diff antigen but negative toxin. Remains ventilated today. Appears stable. Chest X-ray not showing new findings. No leukocytosis. Cultures pending... so far negative. Patient unable to be weaned from ventilator. Supportive care. No fevers or leukocytosis. First two Procalcitonin equivocal. The patient had hypothermia ranging from 93.0 F starting from two days ago. Temperature did rise back up to 99.0 F and has been hovering around 97.7 F. Rechecking procalcitonin... now at 1.49. Difficulty from weaning from the ventilator. Patient is opening eyes and tracking now. Creatinine has been improving and is down to 0.9 from 1.1 from 1.2 from 1.3 from 1.5 from 2.0 now. No leukocytosis. Open tracheostomy done 08/17/2017. Failed ventilator weaning during this hospitalization. Patient has completed antibiotic regimens and is off antibiotics at this time except for PO Vancomycin. Patient is awake and alert. So far stable. Still having diarrhea episodes. Last C. Diff antigen positive. Overall stable. No new issues. Objective - Vital Signs/Intake and Output Vital Signs (last 24 hours): Temp Pulse Resp BP Pulse Ox 98.5 F 109 H 28 H 147/77 93 L 08/30/17 16:00 08/30/17 18:00 08/30/17 18:00 08/30/17 16:00 08/30/17 18:00 Intake and Output: 08/30/17 08/31/17 18:59 06:59 Intake Total 220 Output Total 100 Balance 120 - Medications Medications: Current Medications Acetaminophen (Tylenol 325mg Tab) 650 mg PO Q6H PRN PRN Reason: Pain, moderate (4-7) Last Admin: 08/20/17 09:49 Dose: 650 mg Albuterol/Ipratropium (Duoneb 3 Mg/0.5 Mg (3 Ml) Ud) 3 ml IH [id number] PRN PRN Reason: SOB Last Admin: 08/28/17 01:40 Dose: 3 ml Albuterol/Ipratropium (Duoneb 3 Mg/0.5 Mg (3 Ml) Ud) 3 ml IH [id number] [facility] Last Admin: 08/30/17 16:15 Dose: 3 ml Budesonide (Pulmicort Respules) 0.5 mg IH [id number] [facility] Last Admin: 08/30/17 07:53 Dose: 0.5 mg Calcium Carbonate (Caltrate) 600 mg PO BID [facility] Last Admin: 08/30/17 17:47 Dose: 600 mg Diphenhydramine HCl (Benadryl) 25 mg IVP Q4H PRN PRN Reason: Allergy symptoms Last Admin: 08/28/17 02:22 Dose: 25 mg Ergocalciferol (Drisdol 50,000 Intl Units Cap) 1 cap PO Q7D [facility] Last Admin: 08/26/17 16:17 Dose: 1 cap Ferrous Sulfate (Feosol Liq) 300 mg PO TID [facility] Last Admin: 08/30/17 17:47 Dose: 300 mg Guaifenesin/Codeine Phosphate (Robitussin W/Codeine) 5 ml PO Q4H PRN PRN Reason: Cough and congestion Last Admin: 08/28/17 15:48 Dose: 5 ml Heparin Sodium (Porcine) (Heparin) 5,000 units SC Q12 ESCOBAR PRN Reason: Protocol Last Admin: 08/30/17 09:58 Dose: 5,000 units Insulin Human Lispro (Humalog Med) 0 units SC Q6H [facility]AR PRN Reason: Protocol Last Admin: 08/30/17 17:51 Dose: Not Given Levothyroxine Sodium (Synthroid) 50 mcg IVP DAILY [facility] Last Admin: 08/30/17 09:58 Dose: 50 mcg Multivitamins/Vitamin C (Multi-Delyn Liquid) 15 ml PO 0800 [facility] Last Admin: 08/30/17 08:25 Dose: 15 ml Nystatin (Nystop Topical Powder) 1 gm TOP DAILY [facility] Last Admin: 08/30/17 09:59 Dose: 1 applic Pantoprazole Sodium (Protonix Susp) 40 mg PO ACB [facility] Last Admin: 08/30/17 08:25 Dose: 40 mg Phenol/Menthol (Phenaseptic 1.4% Throat [place]) 0 ml MT Q2H PRN PRN Reason: Sore Throat Last Admin: 08/27/17 17:45 Dose: 1 spr Zinc Sulfate (Zinc Sulfate 220 Mg Cap) 220 mg PO DAILY [facility] Last Admin: 08/30/17 09:57 Dose: 220 mg - Labs Labs: 08/30/17 06:25 08/30/17 06:25 PT 12.5 SECONDS (9.4-12.5) 08/17/17 05:45 INR 1.09 (0.93-1.08) H 08/17/17 05:45 APTT 27.7 Seconds (25.1-36.5) 08/17/17 05:45 - Constitutional Appears: Non-toxic, No Acute Distress - Head Exam Additional comments: trach and vented - Eye Exam Eye Exam: EOMI, PERRL Pupil Exam: NORMAL ACCOMODATION, PERRL - ENT Exam ENT Exam: Mucous Membranes Moist, Normal External Ear Exam, TM's Normal Bilaterally - Neck Exam Neck Exam: Full ROM, Normal Inspection - Respiratory Exam Respiratory Exam: Clear to Ausculation Bilateral, NORMAL BREATHING PATTERN. absent: Rales, Rhonchi, Wheezes - Cardiovascular Exam Cardiovascular Exam: REGULAR RHYTHM, RRR, +S1, +S2 - GI/Abdominal Exam GI & Abdominal Exam: Soft, Normal Bowel Sounds. absent: Distended, Tenderness - Extremities Exam Extremities Exam: Full ROM, Normal Inspection - Neurological Exam Neurological Exam: Alert, Awake, CN II-XII Intact, Oriented x3 - Psychiatric Exam Psychiatric exam: Normal Affect, Normal Mood - Skin Skin Exam: Intact, Normal Color Assessment and Plan - Assessment and Plan (Free Text) Assessment: 67 yo female with multiple medical issues with PCN allergy diagnosed as a teenager verified by an Industry Analyst. The patient with leukocytosis. Await cultures especially urine cultures. Diabetes and HTN history? Local wound care. Elevated ESR and C-reactive protein. Completed Vancomycin and Aztreonam for antibiotic coverage. UTI with E. coli sensitive to Azactam. Was on Vancomycin for cellulitis IV. For UTI for 5-7 days treatment... completed. Supportive care. Cellulitis appears improved. No new issues. Social issues currently. Homeless at this time. CT scan of chest done. No infiltrates seen. Afebrile the past 24 hours. Mild congestion noted in CT with small pulmonary effusions. No leukocytosis. Slightly elevated procalcitonin (0.66) which is undefined without stronger evidence for pneumonia. When encouraged, she is able to use the incentive spirometer without issues and ambulate with minimal difficulty. Repeat procalcitonin showing 0.71. UTI with Klebsiella. Sensitive to Cipro. Was on Cipro for 5 day course at 500mg PO BID. Completed the antibiotic course. Stable currently. No new issues. Off antibiotics at this time. Multiple social issues. Chronic cough still with periods of hacking. Complained of Vague mild general pains. During this hospitalization, the patient developed respiratory failure and required intubation. Started on Zyvox and Aztreonam IV. Will add Flagyl as well. No leukocytosis. Noted C. Diff with positive antigen but negative toxin. Supportive care. Remains intubated and ventilated. Cultures pending. C. Diff negative to date. No leukocytosis or fever reported. Essentially clear X-ray. Hypothermia episodes most of yesterday to this morning. Antibiotic courses completed. Noted gram positive cocci in most recent urine culture. Still awaiting identification. Supportive care. Patient did improve mentally. Still difficulty in weaning off respirator. She remains intubated. Failed weaning from vent. Tracheotomy performed 08/17/2017. Patient is awake and alert. Currently off antibiotics. 08/23/2017 C. Diff testing was positive for antigen and negative for toxin. Supportive care. Continued on PO Vancomycin for C. Diff. No new issues. Sitting in chair for a few hours. No new issues at this time. Thank you for allowing me to participate in the care of the patient, we will follow with you.
[2017-08-31] MEDS: Albuterol-Ipratrop 3 mg / 0.5 (3 ml) UD IH SCH ×4 (05:00→20:13)
[2017-08-31] MEDS: Insulin Lispro (humaLOG) MEDIUM Coverage SC SCH ×3 (06:45→12:10)
[2017-08-31 07:03] LABS: BASO # 0.06 K/mm3 (0.0-2.0); BASO % 0.7 % (0.0-3.0); EOS # 0.3 (0.0-0.7); EOS % 3.8 % (1.5-5.0); GRAN # 5.47 (1.4-6.5); GRAN % 64.2 % (50.0-68.0); HEMOGLOBIN 9.4 g/dL (12.0-16.0); LYMPH # 1.7 (1.2-3.4); LYMPH % 19.6 % (22.0-35.0); MEAN CELL VOLUME 88.3 fl (80.0-105.0); MEAN CORPUSCULAR HEMOGLOBIN 26.9 pg (25.0-35.0); MEAN CORPUSCULAR HGB CONC 30.5 g/dl (31.0-37.0); MONO % 11.7 % (1.0-6.0); RBC 3.49 10^6/uL (3.5-6.1); RED CELL DISTRIBUTION WIDTH 23.2 % (11.5-14.5); WHITE BLOOD COUNT 8.5 10^3/ul (4.5-11.0)
[2017-08-31] MEDS: Budesonide 0.5 mg/2 ml Inhal Susp UD IH SCH ×2 (07:17→20:13)
[2017-08-31 07:26] LABS: ALB/GLOB RATIO 0.9 (1.1-1.8); ALBUMIN 3.4 g/dL (3.0-4.8); CALCIUM 10.1 mg/dL (8.4-10.5)
[2017-08-31] MEDS: Pantoprazole 40 mg Susp UD PO SCH (10:30)
[2017-08-31] MEDS: Multi Vitamins 15 mL UD Oral Solution PO SCH (10:31)
[2017-08-31] MEDS: Ferrous Sulfate 300 mg/5 mL Liq UD PO SCH ×2 (10:32→14:27)
[2017-08-31] MEDS: Levothyroxine 100 mcg (0.1 mg) Inj IVP SCH (10:32)
[2017-08-31] MEDS: Nystatin 100,000 Units/gm Topical Pow(15 gm) TOP SCH (10:36)
--- NOTE | 2017-08-31 13:31 | CP.PCM.PN ---
<Wendi Borja - Last Filed: 08/31/17 13:26> Subjective - Date & Time of Evaluation Date of Evaluation: 08/31/17 Time of Evaluation: 13:26 - Subjective Subjective: Medicine note for Dr. Rodriguez. Patient seen and examined at bedside. Patient resting comfortably in bed with no new complaints at this time. Patient says her abdominal pain has improved and is no only having mild RLQ pain. No acute events overnight per nursing. Patient denies chest pain, SOB, headache, nausea, vomiting, LE pain/swelling. Objective - Vital Signs/Intake and Output Vital Signs (last 24 hours): Temp Pulse Resp BP Pulse Ox 98.8 F 100 H 41 H 118/61 96 08/31/17 04:00 08/31/17 06:00 08/31/17 04:00 08/31/17 04:00 08/31/17 04:00 - Medications Medications: Current Medications Acetaminophen (Tylenol 325mg Tab) 650 mg PO Q4H PRN PRN Reason: Pain, moderate (4-7) Albuterol/Ipratropium (Duoneb 3 Mg/0.5 Mg (3 Ml) Ud) 3 ml IH [id number] PRN PRN Reason: SOB Last Admin: 08/28/17 01:40 Dose: 3 ml Albuterol/Ipratropium (Duoneb 3 Mg/0.5 Mg (3 Ml) Ud) 3 ml IH Q6H [facility] Last Admin: 08/31/17 13:10 Dose: 3 ml Budesonide (Pulmicort Respules) 0.5 mg IH [id number] [facility] Last Admin: 08/31/17 07:17 Dose: 0.5 mg Diphenhydramine HCl (Benadryl) 25 mg IVP Q4H PRN PRN Reason: Allergy symptoms Last Admin: 08/28/17 02:22 Dose: 25 mg Ergocalciferol (Drisdol 50,000 Intl Units Cap) 1 cap PO Q7D [facility] Last Admin: 08/26/17 16:17 Dose: 1 cap Ferrous Sulfate (Feosol Liq) 300 mg PO TID [facility] Last Admin: 08/31/17 10:32 Dose: 300 mg Guaifenesin/Codeine Phosphate (Robitussin W/Codeine) 5 ml PO Q4H PRN PRN Reason: Cough and congestion Last Admin: 08/28/17 15:48 Dose: 5 ml Heparin Sodium (Porcine) (Heparin) 5,000 units SC Q12 ESCOBAR PRN Reason: Protocol Last Admin: 08/31/17 10:34 Dose: 5,000 units Potassium Chloride (Potassium Chloride 20 Meq/100 Ml) 20 meq in 100 mls @ 50 mls/hr IVPB ONCE ONE Stop: 08/31/17 14:17 Insulin Human Lispro (Humalog Med) 0 units SC Q6H ESCOBAR PRN Reason: Protocol Last Admin: 08/31/17 06:45 Dose: Not Given Levothyroxine Sodium (Synthroid) 50 mcg IVP DAILY [facility] Last Admin: 08/31/17 10:32 Dose: 50 mcg Multivitamins/Vitamin C (Multi-Delyn Liquid) 15 ml PO 0800 [facility] Last Admin: 08/31/17 10:31 Dose: 15 ml Nystatin (Nystop Topical Powder) 1 gm TOP DAILY [facility] Last Admin: 08/31/17 10:36 Dose: 1 applic Pantoprazole Sodium (Protonix Susp) 40 mg PO ACB [facility] Last Admin: 08/31/17 10:30 Dose: 40 mg Phenol/Menthol (Phenaseptic 1.4% Throat [place]) 0 ml MT Q2H PRN PRN Reason: Sore Throat Last Admin: 08/27/17 17:45 Dose: 1 spr Zinc Sulfate (Zinc Sulfate 220 Mg Cap) 220 mg PO DAILY [facility] Last Admin: 08/31/17 10:30 Dose: 220 mg - Labs Labs: 08/31/17 05:50 08/31/17 05:50 PT 12.5 SECONDS (9.4-12.5) 08/17/17 05:45 INR 1.09 (0.93-1.08) H 08/17/17 05:45 APTT 27.7 Seconds (25.1-36.5) 08/17/17 05:45 - Additional Findings Additional findings: - Constitutional Appears: Non-toxic, No Acute Distress, Chronically Ill - Head Exam Head Exam: ATRAUMATIC, NORMAL INSPECTION, NORMOCEPHALIC - Eye Exam Eye Exam: EOMI, Normal appearance - ENT Exam Additional comments: trach in place - Respiratory Exam Respiratory Exam: Clear to Ausculation Bilateral. absent: Rales, Rhonchi, Wheezes Additional comments: tachypnea - Cardiovascular Exam Cardiovascular Exam: Tachycardia, REGULAR RHYTHM, +S1, +S2. absent: Murmur - GI/Abdominal Exam GI & Abdominal Exam: Distended, Soft, Tenderness (RLQ), Hyperactive Bowel Sounds (tinkling bowel sounds) - Extremities Exam Extremities Exam: absent: Calf Tenderness - Neurological Exam Neurological Exam: Alert, Awake - Skin Skin Exam: Dry, Intact, Normal Color, Warm Assessment and Plan - Assessment and Plan (Free Text) Assessment: Patient is a 67 year old female with history of asthma, arthritis, anemia, and obesity who was originally admitted for right lower extremity cellulitis and UTI. She developed acute hypercapnic respiratory failure secondary to asthma, reactive airway disease and kyphoscoliosis. C. Diff antigen positive, toxin negative. S/P Trach. Patient is alert and awake. Currently afebrile and hemodynamically stable. Plan: Hypercapnic Respiratory Failure s/p Trach -Last Chest X-Ray (08/24) showing abnormal opacity at left base and lateral mid left lung -Duonebs 3ml IH [id number] scheduled and PRN -Pulmicort 0.5mg IH [id number] -Robitussin DM PO Q4H PRN -completed antibiotic course of zyvox and aztreonam -Continue Suctioning Q2H and Chest PT PRN -Speech and Swallow Evaluation recommendation for pureed diet with nectar thick liquids and extra gravy -Aspiration precautions -Pulmonology consulted, all recommendations appreciated -PT/OT Eval/Treat Chronic Abdominal Distention -C. Diff antigen positive, C. diff toxin negative -CT Abdomen/Pelvis with IV Contrast showed fluid-filled, dilated colon, with air fluid levels consistent with rapid small bowel transit, nonspecific enteritis, and small bowel is decompressed -ID consulted, all recommendations appreciated Normocytic Anemia -H/H stable at this time -Continue Feosol 300mg PO TID -Monitor with daily CBC's -Will consider transfusion if needed HTN -Holding home Zestril as patient had CATE during this hospital visit -Currently well controlled without medication -Monitor with Vital Signs Q4H Hypothyriodism -Continue Synthroid 50mcg daily Hypocalcemia -Continue Caltrate 600mg PO BID Vitamin D Deficiency -Continue weekly Drisdol Difficulty Sleeping -Continue Benadryl PRN GI: Protonix DVT: Heparin <Juan Rodriguez - Last Filed: 08/31/17 15:09> Objective - Vital Signs/Intake and Output Vital Signs (last 24 hours): Temp Pulse Resp BP Pulse Ox 98.8 F 100 H 41 H 118/61 96 08/31/17 04:00 08/31/17 06:00 08/31/17 04:00 08/31/17 04:00 08/31/17 04:00 - Medications Medications: Current Medications Acetaminophen (Tylenol 325mg Tab) 650 mg PO Q4H PRN PRN Reason: Pain, moderate (4-7) Albuterol/Ipratropium (Duoneb 3 Mg/0.5 Mg (3 Ml) Ud) 3 ml IH [id number] PRN PRN Reason: SOB Last Admin: 08/28/17 01:40 Dose: 3 ml Albuterol/Ipratropium (Duoneb 3 Mg/0.5 Mg (3 Ml) Ud) 3 ml IH Q6H [facility] Last Admin: 08/31/17 13:10 Dose: 3 ml Budesonide (Pulmicort Respules) 0.5 mg IH [id number] [facility] Last Admin: 08/31/17 07:17 Dose: 0.5 mg Diphenhydramine HCl (Benadryl) 25 mg IVP Q4H PRN PRN Reason: Allergy symptoms Last Admin: 08/28/17 02:22 Dose: 25 mg Ergocalciferol (Drisdol 50,000 Intl Units Cap) 1 cap PO Q7D [facility] Last Admin: 08/26/17 16:17 Dose: 1 cap Ferrous Sulfate (Feosol Liq) 300 mg PO TID [facility] Last Admin: 08/31/17 14:27 Dose: 300 mg Guaifenesin/Codeine Phosphate (Robitussin W/Codeine) 5 ml PO Q4H PRN PRN Reason: Cough and congestion Last Admin: 08/28/17 15:48 Dose: 5 ml Heparin Sodium (Porcine) (Heparin) 5,000 units SC Q12 ESCOBAR PRN Reason: Protocol Last Admin: 08/31/17 10:34 Dose: 5,000 units Insulin Human Lispro (Humalog Med) 0 units SC Q6H [facility] PRN Reason: Protocol Last Admin: 08/31/17 12:10 Dose: Not Given Levothyroxine Sodium (Synthroid) 50 mcg IVP DAILY [facility] Last Admin: 08/31/17 10:32 Dose: 50 mcg Multivitamins/Vitamin C (Multi-Delyn Liquid) 15 ml PO 0800 [facility] Last Admin: 08/31/17 10:31 Dose: 15 ml Nystatin (Nystop Topical Powder) 1 gm TOP DAILY [facility] Last Admin: 08/31/17 10:36 Dose: 1 applic Pantoprazole Sodium (Protonix Susp) 40 mg PO ACB [facility] Last Admin: 08/31/17 10:30 Dose: 40 mg Phenol/Menthol (Phenaseptic 1.4% Throat [place]) 0 ml MT Q2H PRN PRN Reason: Sore Throat Last Admin: 08/27/17 17:45 Dose: 1 spr Zinc Sulfate (Zinc Sulfate 220 Mg Cap) 220 mg PO DAILY [facility] Last Admin: 08/31/17 10:30 Dose: 220 mg - Labs Labs: 08/31/17 05:50 08/31/17 05:50 PT 12.5 SECONDS (9.4-12.5) 08/17/17 05:45 INR 1.09 (0.93-1.08) H 08/17/17 05:45 APTT 27.7 Seconds (25.1-36.5) 08/17/17 05:45 Attending/Attestation - Attestation I have personally seen and examined this patient.: Yes I have fully participated in the care of the patient.: Yes I have reviewed all pertinent clinical information, including history, physical exam and plan: Yes Notes (Text): 08/31/17 15:09 67 year old female with past medical history of COPD who initially presented with cellulitis and UTI. Hospital course was complicated with COPD exacerbation, hypercapnic respiratory failure s/p intubation. Patient is now s/p trach, on trach collar. She is out of bed to chair this morning. She is s/p antibiotics for pneumonia and steroids taper. She had enteritis on recent CT abd/pelvis. Symptoms improved after rectal tube was placed. Continue to monitor anemia closely. She is on po iron supplementation. CATE has resolved. Will replete and repeat lytes. Juan Rodriguez MD Hospitalist.
[2017-08-31] MEDS: Albuterol-Ipratrop 3 mg / 0.5 (3 ml) UD IH PRN (17:27)
[2017-08-31] MEDS: guaiFENesin-Codeine 100-10mg/5ml Syrup (5 ml) UD PO PRN ×2 (19:01→22:50)
--- NOTE | 2017-08-31 19:15 | CP.PCM.PN ---
Subjective - Date & Time of Evaluation Date of Evaluation: 08/31/17 Time of Evaluation: 18:00 - Subjective Subjective: Infectious Disease Follow Up: August 31, 2017 67 yo female presenting with 3 weeks of RLE ulceration, swelling and leaking from the wound as well as multiple falls in the past 3 weeks. The patient has an extensive medical history of asthma, arthritis, vitamin C deficiency, and possible thyroid disease. Draining RLE ulceration... cellulitis improved/resolved. Multiple chronic medical issues. Still with persistent dry cough. Otherwise stable. Mild erythema and excoriation of the folds in the abdomen and under the breasts. UTI with Klebsiella earlier in hospitalization but had treatment with Cipro that is now completed. Social Issues. The patient had respiratory distress with no improvement from BiPAP. Patient required intubation and ventilation. Transferred to MICU for further care. The patient was started on Zyvox and Aztreonam IV. Patient had a positive C. Diff antigen but negative toxin. Remains ventilated today. Appears stable. Chest X-ray not showing new findings. No leukocytosis. Cultures pending... so far negative. Patient unable to be weaned from ventilator. Supportive care. No fevers or leukocytosis. First two Procalcitonin equivocal. The patient had hypothermia ranging from 93.0 F starting from two days ago. Temperature did rise back up to 99.0 F and has been hovering around 97.7 F. Rechecking procalcitonin... now at 1.49. Difficulty from weaning from the ventilator. Patient is opening eyes and tracking now. Creatinine has been improving and is down to 0.9 from 1.1 from 1.2 from 1.3 from 1.5 from 2.0 now. No leukocytosis. Open tracheostomy done 08/17/2017. Failed ventilator weaning during this hospitalization. Patient has completed antibiotic regimens and is off antibiotics at this time except for PO Vancomycin. Patient is awake and alert. So far stable. Still having diarrhea episodes. Last C. Diff antigen positive. Completed therapy. Can stop isolation. Overall stable. No new issues. Objective - Vital Signs/Intake and Output Vital Signs (last 24 hours): Temp Pulse Resp BP Pulse Ox 98.8 F 100 H 41 H 118/61 96 08/31/17 04:00 08/31/17 06:00 08/31/17 04:00 08/31/17 04:00 08/31/17 04:00 - Medications Medications: Current Medications Acetaminophen (Tylenol 325mg Tab) 650 mg PO Q4H PRN PRN Reason: Pain, moderate (4-7) Albuterol/Ipratropium (Duoneb 3 Mg/0.5 Mg (3 Ml) Ud) 3 ml IH [id number] PRN PRN Reason: SOB Last Admin: 08/31/17 17:27 Dose: 3 ml Albuterol/Ipratropium (Duoneb 3 Mg/0.5 Mg (3 Ml) Ud) 3 ml IH Q6H [facility] Last Admin: 08/31/17 13:10 Dose: 3 ml Budesonide (Pulmicort Respules) 0.5 mg IH [id number] [facility] Last Admin: 08/31/17 07:17 Dose: 0.5 mg Diphenhydramine HCl (Benadryl) 25 mg IVP Q4H PRN PRN Reason: Allergy symptoms Last Admin: 08/28/17 02:22 Dose: 25 mg Ergocalciferol (Drisdol 50,000 Intl Units Cap) 1 cap PO Q7D [facility] Last Admin: 08/26/17 16:17 Dose: 1 cap Ferrous Sulfate (Feosol Liq) 300 mg PO TID [facility] Last Admin: 08/31/17 14:27 Dose: 300 mg Guaifenesin/Codeine Phosphate (Robitussin W/Codeine) 5 ml PO Q4H PRN PRN Reason: Cough and congestion Last Admin: 08/31/17 19:01 Dose: 5 ml Heparin Sodium (Porcine) (Heparin) 5,000 units SC Q12 [facility] PRN Reason: Protocol Last Admin: 08/31/17 10:34 Dose: 5,000 units Insulin Human Lispro (Humalog Med) 0 units SC Q6H [facility] PRN Reason: Protocol Last Admin: 08/31/17 12:10 Dose: Not Given Levothyroxine Sodium (Synthroid) 50 mcg IVP DAILY [facility] Last Admin: 08/31/17 10:32 Dose: 50 mcg Multivitamins/Vitamin C (Multi-Delyn Liquid) 15 ml PO 0800 [facility] Last Admin: 08/31/17 10:31 Dose: 15 ml Nystatin (Nystop Topical Powder) 1 gm TOP DAILY [facility] Last Admin: 01/30/18 10:36 Dose: 1 applic Pantoprazole Sodium (Protonix Susp) 40 mg PO ACB [facility] Last Admin: 08/31/17 10:30 Dose: 40 mg Phenol/Menthol (Phenaseptic 1.4% Throat [place]) 0 ml MT Q2H PRN PRN Reason: Sore Throat Last Admin: 08/27/17 17:45 Dose: 1 spr Zinc Sulfate (Zinc Sulfate 220 Mg Cap) 220 mg PO DAILY [facility] Last Admin: 08/31/17 10:30 Dose: 220 mg - Labs Labs: 08/31/17 05:50 08/31/17 05:50 PT 12.5 SECONDS (9.4-12.5) 08/17/17 05:45 INR 1.09 (0.93-1.08) H 08/17/17 05:45 APTT 27.7 Seconds (25.1-36.5) 08/17/17 05:45 - Constitutional Appears: Non-toxic, No Acute Distress, Chronically Ill - Head Exam Additional comments: trach and vented. - Eye Exam Eye Exam: EOMI, PERRL Pupil Exam: NORMAL ACCOMODATION, PERRL - ENT Exam ENT Exam: Mucous Membranes Moist, Normal External Ear Exam, TM's Normal Bilaterally - Neck Exam Neck Exam: Full ROM, Normal Inspection - Respiratory Exam Respiratory Exam: Clear to Ausculation Bilateral, NORMAL BREATHING PATTERN. absent: Rales, Rhonchi, Wheezes - Cardiovascular Exam Cardiovascular Exam: REGULAR RHYTHM, RRR, +S1, +S2 - GI/Abdominal Exam GI & Abdominal Exam: Soft, Normal Bowel Sounds. absent: Distended, Tenderness - Extremities Exam Extremities Exam: Full ROM, Normal Inspection - Neurological Exam Neurological Exam: Alert, Awake, CN II-XII Intact, Oriented x3 - Psychiatric Exam Psychiatric exam: Normal Affect, Normal Mood - Skin Skin Exam: Intact, Normal Color Assessment and Plan - Assessment and Plan (Free Text) Assessment: 67 yo female with multiple medical issues with PCN allergy diagnosed as a teenager verified by an Outbound Sales Professional. The patient with leukocytosis. Await cultures especially urine cultures. Diabetes and HTN history? Local wound care. Elevated ESR and C-reactive protein. Completed Vancomycin and Aztreonam for antibiotic coverage. UTI with E. coli sensitive to Azactam. Was on Vancomycin for cellulitis IV. For UTI for 5-7 days treatment... completed. Supportive care. Cellulitis appears improved. No new issues. Social issues currently. Homeless at this time. CT scan of chest done. No infiltrates seen. Afebrile the past 24 hours. Mild congestion noted in CT with small pulmonary effusions. No leukocytosis. Slightly elevated procalcitonin (0.66) which is undefined without stronger evidence for pneumonia. When encouraged, she is able to use the incentive spirometer without issues and ambulate with minimal difficulty. Repeat procalcitonin showing 0.71. UTI with Klebsiella. Sensitive to Cipro. Was on Cipro for 5 day course at 500mg PO BID. Completed the antibiotic course. Stable currently. No new issues. Off antibiotics at this time. Multiple social issues. Chronic cough still with periods of hacking. Complained of Vague mild general pains. During this hospitalization, the patient developed respiratory failure and required intubation. Started on Zyvox and Aztreonam IV. Will add Flagyl as well. No leukocytosis. Noted C. Diff with positive antigen but negative toxin. Supportive care. Remains intubated and ventilated. Cultures pending. C. Diff negative to date. No leukocytosis or fever reported. Essentially clear X-ray. Hypothermia episodes most of yesterday to this morning. Antibiotic courses completed. Noted gram positive cocci in most recent urine culture. Still awaiting identification. Supportive care. Patient did improve mentally. Still difficulty in weaning off respirator. She remains intubated. Failed weaning from vent. Tracheotomy performed 08/17/2017. Patient is awake and alert. Currently off antibiotics. 08/23/2017 C. Diff testing was positive for antigen and negative for toxin. Supportive care. Completed PO Vancomycin for C. Diff. No new issues. Sitting in chair for a few hours. No new issues at this time. Currently no diarrhea. Can d/c isolation. Thank you for allowing me to participate in the care of the patient, we will follow with you.
[2017-09-01] MEDS: Insulin Lispro (humaLOG) MEDIUM Coverage SC SCH ×5 (00:31→22:11)
[2017-09-01] MEDS: Albuterol-Ipratrop 3 mg / 0.5 (3 ml) UD IH SCH ×4 (02:10→20:01)
[2017-09-01 07:14] LABS: BASO # 0.04 K/mm3 (0.0-2.0); BASO % 0.5 % (0.0-3.0); EOS # 0.4 (0.0-0.7); EOS % 4.8 % (1.5-5.0); GRAN # 4.54 (1.4-6.5); GRAN % 60.4 % (50.0-68.0); HEMOGLOBIN 8.7 g/dL (12.0-16.0); LYMPH # 1.7 (1.2-3.4); MEAN CELL VOLUME 88.7 fl (80.0-105.0); MEAN CORPUSCULAR HEMOGLOBIN 26.5 pg (25.0-35.0); MEAN CORPUSCULAR HGB CONC 29.9 g/dl (31.0-37.0); MEAN PLATELET VOLUME 8.9 fl (7.0-11.0); MONO # 0.9 (0.1-0.6); MONO % 12.3 % (1.0-6.0); RBC 3.28 10^6/uL (3.5-6.1); RED CELL DISTRIBUTION WIDTH 22.7 % (11.5-14.5); WHITE BLOOD COUNT 7.5 10^3/ul (4.5-11.0)
[2017-09-01] MEDS: Budesonide 0.5 mg/2 ml Inhal Susp UD IH SCH ×2 (07:21→20:01)
[2017-09-01 07:37] LABS: ALB/GLOB RATIO 0.9 (1.1-1.8); ALBUMIN 3.2 g/dL (3.0-4.8)
[2017-09-01] MEDS: Multi Vitamins 15 mL UD Oral Solution PO SCH (08:00)
[2017-09-01] MEDS: Nystatin 100,000 Units/gm Topical Pow(15 gm) TOP SCH (10:18)
[2017-09-01] MEDS: Levothyroxine 100 mcg (0.1 mg) Inj IVP SCH (10:41)
[2017-09-01] MEDS: Ferrous Sulfate 300 mg/5 mL Liq UD PO SCH ×3 (10:42→17:42)
[2017-09-01] MEDS: Pantoprazole 40 mg Susp UD PO SCH (10:42)
[2017-09-01] MEDS: guaiFENesin-Codeine 100-10mg/5ml Syrup (5 ml) UD PO PRN ×2 (10:42→17:42)
--- NOTE | 2017-09-01 13:11 | CP.PCM.PN ---
<Wendi Borja - Last Filed: 09/01/17 13:08> Subjective - Date & Time of Evaluation Date of Evaluation: 09/01/17 Time of Evaluation: 13:11 - Subjective Subjective: Patient seen and examined at bedside. Patient resting comfortably in bed with no new complaints at this time. Patient is sleepy and not wanting to wake up for my questions. No acute events overnight per nursing. Patient denies chest pain, SOB, nausea, vomiting. Objective - Vital Signs/Intake and Output Vital Signs (last 24 hours): Temp Pulse Resp BP Pulse Ox 98.2 F 86 38 H 126/61 90 L 09/01/17 04:00 09/01/17 10:00 09/01/17 10:00 09/01/17 04:00 09/01/17 10:00 Intake and Output: 09/01/17 09/01/17 06:59 18:59 Intake Total 150 Output Total 400 Balance -250 - Medications Medications: Current Medications Acetaminophen (Tylenol 325mg Tab) 650 mg PO Q4H PRN PRN Reason: Pain, moderate (4-7) Albuterol/Ipratropium (Duoneb 3 Mg/0.5 Mg (3 Ml) Ud) 3 ml IH [id number] PRN PRN Reason: SOB Last Admin: 08/31/17 17:27 Dose: 3 ml Albuterol/Ipratropium (Duoneb 3 Mg/0.5 Mg (3 Ml) Ud) 3 ml IH Q6H [facility] Last Admin: 09/01/17 07:21 Dose: 3 ml Budesonide (Pulmicort Respules) 0.5 mg IH [id number] [facility] Last Admin: 09/01/17 07:21 Dose: 0.5 mg Diphenhydramine HCl (Benadryl) 25 mg IVP Q4H PRN PRN Reason: Allergy symptoms Last Admin: 08/28/17 02:22 Dose: 25 mg Ergocalciferol (Drisdol 50,000 Intl Units Cap) 1 cap PO Q7D [facility] Last Admin: 08/26/17 16:17 Dose: 1 cap Ferrous Sulfate (Feosol Liq) 300 mg PO TID [facility] Last Admin: 09/01/17 10:42 Dose: 300 mg Guaifenesin/Codeine Phosphate (Robitussin W/Codeine) 5 ml PO Q4H PRN PRN Reason: Cough and congestion Last Admin: 09/01/17 10:42 Dose: 5 ml Heparin Sodium (Porcine) (Heparin) 5,000 units SC Q12 [facility] PRN Reason: Protocol Last Admin: 09/01/17 10:42 Dose: 5,000 units Insulin Human Lispro (Humalog Med) 0 units SC ACHS [facility] PRN Reason: Protocol Lactic Acid (Lac-Hydrin 12% Cream (140 G)) 0 ea TOP DAILY [facility] Levothyroxine Sodium (Synthroid) 50 mcg IVP DAILY [facility] Last Admin: 09/01/17 10:41 Dose: 50 mcg Multivitamins/Vitamin C (Multi-Delyn Liquid) 15 ml PO 0800 [facility] Last Admin: 08/31/17 10:31 Dose: 15 ml Nystatin (Nystop Topical Powder) 1 gm TOP DAILY [facility] Last Admin: 09/01/17 10:18 Dose: 1 applic Pantoprazole Sodium (Protonix Susp) 40 mg PO ACB [facility] Last Admin: 09/01/17 10:42 Dose: 40 mg Phenol/Menthol (Phenaseptic 1.4% Throat [place]) 0 ml MT Q2H PRN PRN Reason: Sore Throat Last Admin: 08/27/17 17:45 Dose: 1 spr Zinc Sulfate (Zinc Sulfate 220 Mg Cap) 220 mg PO DAILY [facility] Last Admin: 09/01/17 10:42 Dose: 220 mg - Labs Labs: 09/01/17 05:30 09/01/17 05:30 PT 12.5 SECONDS (9.4-12.5) 08/17/17 05:45 INR 1.09 (0.93-1.08) H 08/17/17 05:45 APTT 27.7 Seconds (25.1-36.5) 08/17/17 05:45 - Additional Findings Additional findings: - Constitutional Appears: Non-toxic, No Acute Distress, Chronically Ill - Head Exam Head Exam: ATRAUMATIC, NORMAL INSPECTION, NORMOCEPHALIC - Eye Exam Eye Exam: EOMI, Normal appearance - ENT Exam Additional comments: trach in place - Respiratory Exam Respiratory Exam: Clear to Ausculation Bilateral. absent: Rales, Rhonchi, Wheezes Additional comments: tachypnea - Cardiovascular Exam Cardiovascular Exam: Tachycardia, REGULAR RHYTHM, +S1, +S2. absent: Murmur - GI/Abdominal Exam GI & Abdominal Exam: Distended, Soft, Normal Bowel Sounds. absent: tenderness - Extremities Exam Extremities Exam: Pedal edema (R>L). absent: Calf Tenderness - Neurological Exam Neurological Exam: Alert, Awake - Skin Skin Exam: Dry, Intact, Normal Color, Warm Assessment and Plan - Assessment and Plan (Free Text) Assessment: Patient is a 67 year old female with history of asthma, arthritis, anemia, and obesity who was originally admitted for right lower extremity cellulitis and UTI. She developed acute hypercapnic respiratory failure secondary to asthma, reactive airway disease and kyphoscoliosis. C. Diff antigen positive, toxin negative. S/P Trach. Patient is alert and awake. Currently afebrile and hemodynamically stable. Plan: Hypercapnic Respiratory Failure s/p Trach -Last Chest X-Ray (08/24) showing abnormal opacity at left base and lateral mid left lung -Duonebs 3ml IH [id number] scheduled and PRN -Pulmicort 0.5mg IH [id number] -Robitussin DM PO Q4H PRN -completed antibiotic course of zyvox and aztreonam -Continue Suctioning Q2H and Chest PT PRN -Speech and Swallow Evaluation recommendation for pureed diet with nectar thick liquids and extra gravy -Aspiration precautions -Pulmonology consulted, all recommendations appreciated -PT/OT Eval/Treat Chronic Abdominal Distention -C. Diff antigen positive, C. diff toxin negative -CT Abdomen/Pelvis with IV Contrast showed fluid-filled, dilated colon, with air fluid levels consistent with rapid small bowel transit, nonspecific enteritis, and small bowel is decompressed -ID consulted, all recommendations appreciated Normocytic Anemia -H/H stable at this time -Continue Feosol 300mg PO TID -Monitor with daily CBC's -Will consider transfusion if needed HTN -Holding home Zestril as patient had CATE during this hospital visit -Currently well controlled without medication -Monitor with Vital Signs Q4H Hypothyriodism -Continue Synthroid 50mcg daily Hypocalcemia -Continue Caltrate 600mg PO BID Vitamin D Deficiency -Continue weekly Drisdol Difficulty Sleeping -Continue Benadryl PRN GI: Protonix DVT: Heparin <Juan Rodriguez - Last Filed: 09/01/17 16:47> Objective - Vital Signs/Intake and Output Vital Signs (last 24 hours): Temp Pulse Resp BP Pulse Ox 98.2 F 92 H 36 H 126/61 96 09/01/17 04:00 09/01/17 14:00 09/01/17 14:00 09/01/17 04:00 09/01/17 14:00 Intake and Output: 09/01/17 09/01/17 06:59 18:59 Intake Total 150 Output Total 400 Balance -250 - Medications Medications: Current Medications Acetaminophen (Tylenol 325mg Tab) 650 mg PO Q4H PRN PRN Reason: Pain, moderate (4-7) Albuterol/Ipratropium (Duoneb 3 Mg/0.5 Mg (3 Ml) Ud) 3 ml IH [id number] PRN PRN Reason: SOB Last Admin: 08/31/17 17:27 Dose: 3 ml Albuterol/Ipratropium (Duoneb 3 Mg/0.5 Mg (3 Ml) Ud) 3 ml IH Q6H [facility] Last Admin: 09/01/17 14:08 Dose: 3 ml Budesonide (Pulmicort Respules) 0.5 mg IH [id number] [facility] Last Admin: 09/01/17 07:21 Dose: 0.5 mg Diphenhydramine HCl (Benadryl) 25 mg IVP Q4H PRN PRN Reason: Allergy symptoms Last Admin: 08/28/17 02:22 Dose: 25 mg Ergocalciferol (Drisdol 50,000 Intl Units Cap) 1 cap PO Q7D [facility] Last Admin: 08/26/17 16:17 Dose: 1 cap Ferrous Sulfate (Feosol Liq) 300 mg PO TID [facility] Last Admin: 09/01/17 10:42 Dose: 300 mg Guaifenesin/Codeine Phosphate (Robitussin W/Codeine) 5 ml PO Q4H PRN PRN Reason: Cough and congestion Last Admin: 09/01/17 10:42 Dose: 5 ml Heparin Sodium (Porcine) (Heparin) 5,000 units SC Q12 [facility] PRN Reason: Protocol Last Admin: 09/01/17 10:42 Dose: 5,000 units Insulin Human Lispro (Humalog Med) 0 units SC ACHS [facility] PRN Reason: Protocol Lactic Acid (Lac-Hydrin 12% Cream (140 G)) 0 ea TOP DAILY [facility] Levothyroxine Sodium (Synthroid) 50 mcg IVP DAILY [facility] Last Admin: 09/01/17 10:41 Dose: 50 mcg Multivitamins/Vitamin C (Multi-Delyn Liquid) 15 ml PO 0800 [facility] Last Admin: 08/31/17 10:31 Dose: 15 ml Nystatin (Nystop Topical Powder) 1 gm TOP DAILY [facility] Last Admin: 09/01/17 10:18 Dose: 1 applic Pantoprazole Sodium (Protonix Susp) 40 mg PO ACB [facility] Last Admin: 09/01/17 10:42 Dose: 40 mg Phenol/Menthol (Phenaseptic 1.4% Throat [place]) 0 ml MT Q2H PRN PRN Reason: Sore Throat Last Admin: 08/27/17 17:45 Dose: 1 spr Zinc Sulfate (Zinc Sulfate 220 Mg Cap) 220 mg PO DAILY [facility] Last Admin: 09/01/17 10:42 Dose: 220 mg - Labs Labs: 09/01/17 05:30 09/01/17 05:30 PT 12.5 SECONDS (9.4-12.5) 08/17/17 05:45 INR 1.09 (0.93-1.08) H 08/17/17 05:45 APTT 27.7 Seconds (25.1-36.5) 08/17/17 05:45 Attending/Attestation - Attestation I have personally seen and examined this patient.: Yes I have fully participated in the care of the patient.: Yes I have reviewed all pertinent clinical information, including history, physical exam and plan: Yes Notes (Text): 09/01/17 16:47 67 year old female with past medical history of COPD who initially presented with cellulitis and UTI. Hospital course was complicated with COPD exacerbation, hypercapnic respiratory failure s/p intubation. Patient is now s/p trach, on trach collar. She is s/p antibiotics for pneumonia and steroids taper. She had enteritis on recent CT abd/pelvis. Symptoms improved after rectal tube was placed. Continue to monitor anemia closely. She is on po iron supplementation. She had CATE earlier in hospital course which has resolved. Juan Rodriguez MD Hospitalist.
--- NOTE | 2017-09-01 15:51 | CP.PCM.PN ---
Subjective - Date & Time of Evaluation Date of Evaluation: 09/01/17 Time of Evaluation: 14:30 - Subjective Subjective: Infectious Disease Follow Up: September 01, 2017 67 yo female presenting with 3 weeks of RLE ulceration, swelling and leaking from the wound as well as multiple falls in the past 3 weeks. The patient has an extensive medical history of asthma, arthritis, vitamin C deficiency, and possible thyroid disease. Draining RLE ulceration... cellulitis improved/resolved. Multiple chronic medical issues. Still with persistent dry cough. Otherwise stable. Mild erythema and excoriation of the folds in the abdomen and under the breasts. UTI with Klebsiella earlier in hospitalization but had treatment with Cipro that is now completed. Social Issues. The patient had respiratory distress with no improvement from BiPAP. Patient required intubation and ventilation. Transferred to MICU for further care. The patient was started on Zyvox and Aztreonam IV. Patient had a positive C. Diff antigen but negative toxin. Remains ventilated today. Appears stable. Chest X-ray not showing new findings. No leukocytosis. Cultures pending... so far negative. Patient unable to be weaned from ventilator. Supportive care. No fevers or leukocytosis. First two Procalcitonin equivocal. The patient had hypothermia ranging from 93.0 F starting from two days ago. Temperature did rise back up to 99.0 F and has been hovering around 97.7 F. Rechecking procalcitonin... now at 1.49. Difficulty from weaning from the ventilator. Patient is opening eyes and tracking now. Creatinine has been improving and is down to 0.9 from 1.1 from 1.2 from 1.3 from 1.5 from 2.0 now. No leukocytosis. Open tracheostomy done 08/17/2017. Failed ventilator weaning during this hospitalization. Patient has completed antibiotic regimens and is off antibiotics at this time. Recently comleted PO Vancomycin. Patient is awake and alert. So far stable. No further diarrhea episodes. Last C. Diff antigen positive. Completed therapy. Can stop isolation. Overall stable. No new issues. Objective - Vital Signs/Intake and Output Vital Signs (last 24 hours): Temp Pulse Resp BP Pulse Ox 98.2 F 86 38 H 126/61 90 L 09/01/17 04:00 09/01/17 10:00 09/01/17 10:00 09/01/17 04:00 09/01/17 10:00 Intake and Output: 09/01/17 09/01/17 06:59 18:59 Intake Total 150 Output Total 400 Balance -250 - Medications Medications: Current Medications Acetaminophen (Tylenol 325mg Tab) 650 mg PO Q4H PRN PRN Reason: Pain, moderate (4-7) Albuterol/Ipratropium (Duoneb 3 Mg/0.5 Mg (3 Ml) Ud) 3 ml IH [id number] PRN PRN Reason: SOB Last Admin: 08/31/17 17:27 Dose: 3 ml Albuterol/Ipratropium (Duoneb 3 Mg/0.5 Mg (3 Ml) Ud) 3 ml IH Q6H [facility] Last Admin: 09/01/17 14:08 Dose: 3 ml Budesonide (Pulmicort Respules) 0.5 mg IH [id number] [facility] Last Admin: 09/01/17 07:21 Dose: 0.5 mg Diphenhydramine HCl (Benadryl) 25 mg IVP Q4H PRN PRN Reason: Allergy symptoms Last Admin: 08/28/17 02:22 Dose: 25 mg Ergocalciferol (Drisdol 50,000 Intl Units Cap) 1 cap PO Q7D [facility] Last Admin: 08/26/17 16:17 Dose: 1 cap Ferrous Sulfate (Feosol Liq) 300 mg PO TID [facility] Last Admin: 09/01/17 10:42 Dose: 300 mg Guaifenesin/Codeine Phosphate (Robitussin W/Codeine) 5 ml PO Q4H PRN PRN Reason: Cough and congestion Last Admin: 09/01/17 10:42 Dose: 5 ml Heparin Sodium (Porcine) (Heparin) 5,000 units SC Q12 [facility] PRN Reason: Protocol Last Admin: 09/01/17 10:42 Dose: 5,000 units Insulin Human Lispro (Humalog Med) 0 units SC ACHS [facility] PRN Reason: Protocol Lactic Acid (Lac-Hydrin 12% Cream (140 G)) 0 ea TOP DAILY [facility] Levothyroxine Sodium (Synthroid) 50 mcg IVP DAILY [facility] Last Admin: 09/01/17 10:41 Dose: 50 mcg Multivitamins/Vitamin C (Multi-Delyn Liquid) 15 ml PO 0800 [facility] Last Admin: 08/31/17 10:31 Dose: 15 ml Nystatin (Nystop Topical Powder) 1 gm TOP DAILY [facility] Last Admin: 09/01/17 10:18 Dose: 1 applic Pantoprazole Sodium (Protonix Susp) 40 mg PO ACB [facility] Last Admin: 09/01/17 10:42 Dose: 40 mg Phenol/Menthol (Phenaseptic 1.4% Throat [place]) 0 ml MT Q2H PRN PRN Reason: Sore Throat Last Admin: 08/27/17 17:45 Dose: 1 spr Zinc Sulfate (Zinc Sulfate 220 Mg Cap) 220 mg PO DAILY [facility] Last Admin: 09/01/17 10:42 Dose: 220 mg - Labs Labs: 09/01/17 05:30 09/01/17 05:30 PT 12.5 SECONDS (9.4-12.5) 08/17/17 05:45 INR 1.09 (0.93-1.08) H 08/17/17 05:45 APTT 27.7 Seconds (25.1-36.5) 08/17/17 05:45 - Constitutional Appears: Non-toxic, No Acute Distress, Chronically Ill - Head Exam Additional comments: trach and vented. - Eye Exam Eye Exam: EOMI, PERRL Pupil Exam: NORMAL ACCOMODATION, PERRL - ENT Exam ENT Exam: Mucous Membranes Moist, Normal External Ear Exam, TM's Normal Bilaterally - Neck Exam Neck Exam: Full ROM, Normal Inspection - Respiratory Exam Respiratory Exam: Clear to Ausculation Bilateral, NORMAL BREATHING PATTERN. absent: Rales, Rhonchi, Wheezes - Cardiovascular Exam Cardiovascular Exam: REGULAR RHYTHM, RRR, +S1, +S2 - GI/Abdominal Exam GI & Abdominal Exam: Soft, Normal Bowel Sounds. absent: Distended, Tenderness - Extremities Exam Extremities Exam: Full ROM, Normal Inspection - Neurological Exam Neurological Exam: Alert, Awake, CN II-XII Intact, Oriented x3 - Psychiatric Exam Psychiatric exam: Normal Affect, Normal Mood - Skin Skin Exam: Intact, Normal Color Assessment and Plan - Assessment and Plan (Free Text) Assessment: 67 yo female with multiple medical issues with PCN allergy diagnosed as a teenager verified by an [employer] Tu[employer]. The patient with leukocytosis. Await cultures especially urine cultures. Diabetes and HTN history? Local wound care. Elevated ESR and C-reactive protein. Completed Vancomycin and Aztreonam for antibiotic coverage. UTI with E. coli sensitive to Azactam. Was on Vancomycin for cellulitis IV. For UTI for 5-7 days treatment... completed. Supportive care. Cellulitis appears improved. No new issues. Social issues currently. Homeless at this time. CT scan of chest done. No infiltrates seen. Afebrile the past 24 hours. Mild congestion noted in CT with small pulmonary effusions. No leukocytosis. Slightly elevated procalcitonin (0.66) which is undefined without stronger evidence for pneumonia. When encouraged, she is able to use the incentive spirometer without issues and ambulate with minimal difficulty. Repeat procalcitonin showing 0.71. UTI with Klebsiella. Sensitive to Cipro. Was on Cipro for 5 day course at 500mg PO BID. Completed the antibiotic course. Stable currently. No new issues. Off antibiotics at this time. Multiple social issues. Chronic cough still with periods of hacking. Complained of Vague mild general pains. During this hospitalization, the patient developed respiratory failure and required intubation. Started on Zyvox and Aztreonam IV. Will add Flagyl as well. No leukocytosis. Noted C. Diff with positive antigen but negative toxin. Supportive care. Remains intubated and ventilated. Cultures pending. C. Diff negative to date. No leukocytosis or fever reported. Essentially clear X-ray. Hypothermia episodes most of yesterday to this morning. Antibiotic courses completed. Noted gram positive cocci in most recent urine culture. Still awaiting identification. Supportive care. Patient did improve mentally. Still difficulty in weaning off respirator. She remains intubated. Failed weaning from vent. Tracheotomy performed 08/17/2017. Patient is awake and alert. Currently off antibiotics. 08/23/2017 C. Diff testing was positive for antigen and negative for toxin. Supportive care. Completed PO Vancomycin for C. Diff. No new issues. Sitting in chair for a few hours. No new issues at this time. Currently no diarrhea. Can d/c isolation. No new issues. Thank you for allowing me to participate in the care of the patient, we will follow with you.
[2017-09-02] MEDS: Albuterol-Ipratrop 3 mg / 0.5 (3 ml) UD IH SCH ×3 (03:10→13:08)
[2017-09-02 06:58] LABS: BASO # 0.06 K/mm3 (0.0-2.0); BASO % 0.8 % (0.0-3.0); EOS # 0.5 (0.0-0.7); EOS % 6.5 % (1.5-5.0); GRAN # 4.42 (1.4-6.5); GRAN % 58.8 % (50.0-68.0); HEMOGLOBIN 8.7 g/dL (12.0-16.0); LYMPH # 1.7 (1.2-3.4); LYMPH % 22.8 % (22.0-35.0); MEAN CELL VOLUME 89.1 fl (80.0-105.0); MEAN CORPUSCULAR HEMOGLOBIN 26.4 pg (25.0-35.0); MEAN CORPUSCULAR HGB CONC 29.7 g/dl (31.0-37.0); MEAN PLATELET VOLUME 8.6 fl (7.0-11.0); MONO # 0.8 (0.1-0.6); MONO % 11.1 % (1.0-6.0); RBC 3.29 10^6/uL (3.5-6.1); RED CELL DISTRIBUTION WIDTH 22.6 % (11.5-14.5); WHITE BLOOD COUNT 7.5 10^3/ul (4.5-11.0)
[2017-09-02] MEDS: Insulin Lispro (humaLOG) MEDIUM Coverage SC SCH ×4 (07:16→21:53)
[2017-09-02 07:29] LABS: ALB/GLOB RATIO 0.9 (1.1-1.8); ALBUMIN 3.1 g/dL (3.0-4.8); ALT/SGPT 34 U/L (7-56); AST/SGOT 36 U/L (14-36); BLOOD UREA NITROGEN 16 mg/dL (7-21); CALCIUM 9.3 mg/dL (8.4-10.5); GFR AFRICAN-AMERICAN > 60; GFR NON-AFRICAN AMERICAN 50
[2017-09-02] MEDS: Budesonide 0.5 mg/2 ml Inhal Susp UD IH SCH (08:09)
[2017-09-02] MEDS: Pantoprazole 40 mg Susp UD PO SCH (08:50)
--- NOTE | 2017-09-02 08:52 | CP.PCM.PN ---
<Wendi Borja - Last Filed: 09/02/17 14:01> Subjective - Date & Time of Evaluation Date of Evaluation: 09/02/17 Time of Evaluation: 08:49 - Subjective Subjective: Patient see and examined at bedside. Patient resting comfortably in bed with no new complaints at this time. No acute events overnight. Patient is no longer having abdominal pain. She denies chest pain, SOB, nausea, vomiting, headaches. Objective - Vital Signs/Intake and Output Vital Signs (last 24 hours): Temp Pulse Resp BP Pulse Ox 98.0 F 92 H 20 132/91 H 95 09/02/17 04:00 09/02/17 07:00 09/02/17 07:00 09/02/17 07:00 09/02/17 07:00 Intake and Output: 09/02/17 09/02/17 06:59 18:59 Intake Total 600 Output Total 750 Balance -150 - Medications Medications: Current Medications Acetaminophen (Tylenol 325mg Tab) 650 mg PO Q4H PRN PRN Reason: Pain, moderate (4-7) Albuterol/Ipratropium (Duoneb 3 Mg/0.5 Mg (3 Ml) Ud) 3 ml IH [id number] PRN PRN Reason: SOB Last Admin: 08/31/17 17:27 Dose: 3 ml Albuterol/Ipratropium (Duoneb 3 Mg/0.5 Mg (3 Ml) Ud) 3 ml IH Q6H [facility] Last Admin: 09/02/17 08:09 Dose: 3 ml Budesonide (Pulmicort Respules) 0.5 mg IH [id number] [facility] Last Admin: 09/02/17 08:09 Dose: 0.5 mg Diphenhydramine HCl (Benadryl) 25 mg IVP Q4H PRN PRN Reason: Allergy symptoms Last Admin: 08/28/17 02:22 Dose: 25 mg Ergocalciferol (Drisdol 50,000 Intl Units Cap) 1 cap PO Q7D [facility] Last Admin: 08/26/17 16:17 Dose: 1 cap Ferrous Sulfate (Feosol Liq) 300 mg PO TID [facility] Last Admin: 09/01/17 17:42 Dose: 300 mg Guaifenesin/Codeine Phosphate (Robitussin W/Codeine) 5 ml PO Q4H PRN PRN Reason: Cough and congestion Last Admin: 09/01/17 17:42 Dose: 5 ml Heparin Sodium (Porcine) (Heparin) 5,000 units SC Q12 [facility] PRN Reason: Protocol Last Admin: 09/01/17 22:36 Dose: 5,000 units Insulin Human Lispro (Humalog Med) 0 units SC ACHS [facility] PRN Reason: Protocol Last Admin: 09/02/17 07:16 Dose: Not Given Lactic Acid (Lac-Hydrin 12% Cream (140 G)) 0 ea TOP DAILY [facility] Levothyroxine Sodium (Synthroid) 50 mcg IVP DAILY [facility] Last Admin: 09/01/17 10:41 Dose: 50 mcg Multivitamins/Vitamin C (Multi-Delyn Liquid) 15 ml PO 0800 [facility] Last Admin: 09/01/17 08:00 Dose: 15 ml Nystatin (Nystop Topical Powder) 1 gm TOP DAILY [facility] Last Admin: 09/01/17 10:18 Dose: 1 applic Pantoprazole Sodium (Protonix Susp) 40 mg PO ACB [facility] Last Admin: 09/01/17 10:42 Dose: 40 mg Phenol/Menthol (Phenaseptic 1.4% Throat [place]) 0 ml MT Q2H PRN PRN Reason: Sore Throat Last Admin: 08/27/17 17:45 Dose: 1 spr Zinc Sulfate (Zinc Sulfate 220 Mg Cap) 220 mg PO DAILY [facility] Last Admin: 09/01/17 10:42 Dose: 220 mg - Labs Labs: 09/02/17 06:24 09/02/17 06:24 PT 12.5 SECONDS (9.4-12.5) 08/17/17 05:45 INR 1.09 (0.93-1.08) H 08/17/17 05:45 APTT 27.7 Seconds (25.1-36.5) 08/17/17 05:45 - Additional Findings Additional findings: - Constitutional Appears: Non-toxic, No Acute Distress, Chronically Ill - Head Exam Head Exam: ATRAUMATIC, NORMAL INSPECTION, NORMOCEPHALIC - Eye Exam Eye Exam: EOMI, Normal appearance - ENT Exam Additional comments: trach in place - Respiratory Exam Respiratory Exam: Clear to Ausculation Bilateral. absent: Rales, Rhonchi, Wheezes Additional comments: tachypnea - Cardiovascular Exam Cardiovascular Exam: Tachycardia, REGULAR RHYTHM, +S1, +S2. absent: Murmur - GI/Abdominal Exam GI & Abdominal Exam: Distended, Soft, Normal Bowel Sounds. absent: tenderness - Extremities Exam Extremities Exam: Pedal edema (R>L). absent: Calf Tenderness - Neurological Exam Neurological Exam: Alert, Awake - Skin Skin Exam: Dry, Intact, Normal Color, Warm Assessment and Plan - Assessment and Plan (Free Text) Assessment: - Constitutional Appears: Non-toxic, No Acute Distress, Chronically Ill - Head Exam Head Exam: ATRAUMATIC, NORMAL INSPECTION, NORMOCEPHALIC - Eye Exam Eye Exam: EOMI, Normal appearance - ENT Exam Additional comments: trach in place - Respiratory Exam Respiratory Exam: Clear to Ausculation Bilateral. absent: Rales, Rhonchi, Wheezes Additional comments: tachypnea - Cardiovascular Exam Cardiovascular Exam: Tachycardia, REGULAR RHYTHM, +S1, +S2. absent: Murmur - GI/Abdominal Exam GI & Abdominal Exam: Distended, Soft, Normal Bowel Sounds. absent: tenderness - Extremities Exam Extremities Exam: Pedal edema (R>L). absent: Calf Tenderness - Neurological Exam Neurological Exam: Alert, Awake - Skin Skin Exam: Dry, Intact, Normal Color, Warm Plan: Hypercapnic Respiratory Failure s/p Trach -Last Chest X-Ray (08/24) showing abnormal opacity at left base and lateral mid left lung -Duonebs 3ml IH [id number] scheduled and PRN -Pulmicort 0.5mg IH [id number] -Robitussin DM PO Q4H PRN -completed antibiotic course of zyvox and aztreonam -Continue Suctioning Q2H and Chest PT PRN -Speech and Swallow Evaluation recommendation for pureed diet with nectar thick liquids and extra gravy -Aspiration precautions -Pulmonology consulted, all recommendations appreciated -PT/OT Eval/Treat Chronic Abdominal Distention -C. Diff antigen positive, C. diff toxin negative -CT Abdomen/Pelvis with IV Contrast showed fluid-filled, dilated colon, with air fluid levels consistent with rapid small bowel transit, nonspecific enteritis, and small bowel is decompressed -ID consulted, all recommendations appreciated Normocytic Anemia -H/H stable at this time -Continue Feosol 300mg PO TID -Monitor with daily CBC's -Will consider transfusion if needed HTN -Holding home Zestril as patient had CATE during this hospital visit -Currently well controlled without medication -Monitor with Vital Signs Q4H Hypothyriodism -Continue Synthroid 50mcg daily Hypocalcemia -Continue Caltrate 600mg PO BID Vitamin D Deficiency -Continue weekly Drisdol Difficulty Sleeping -Continue Benadryl PRN GI: Protonix DVT: Heparin <Juan Rodriguez - Last Filed: 09/02/17 15:38> Objective - Vital Signs/Intake and Output Vital Signs (last 24 hours): Temp Pulse Resp BP Pulse Ox 98.1 F 88 21 123/53 L 95 09/02/17 12:00 09/02/17 14:00 09/02/17 12:30 09/02/17 12:30 09/02/17 12:30 Intake and Output: 09/02/17 09/02/17 06:59 18:59 Intake Total 600 Output Total 750 Balance -150 - Medications Medications: Current Medications Acetaminophen (Tylenol 325mg Tab) 650 mg PO Q4H PRN PRN Reason: Pain, moderate (4-7) Albuterol/Ipratropium (Duoneb 3 Mg/0.5 Mg (3 Ml) Ud) 3 ml IH [id number] PRN PRN Reason: SOB Last Admin: 08/31/17 17:27 Dose: 3 ml Albuterol/Ipratropium (Duoneb 3 Mg/0.5 Mg (3 Ml) Ud) 3 ml IH Q6H [facility] Last Admin: 09/02/17 13:08 Dose: 3 ml Budesonide (Pulmicort Respules) 0.5 mg IH [id number] [facility] Last Admin: 09/02/17 08:09 Dose: 0.5 mg Diphenhydramine HCl (Benadryl) 25 mg IVP Q4H PRN PRN Reason: Allergy symptoms Last Admin: 08/28/17 02:22 Dose: 25 mg Ergocalciferol (Drisdol 50,000 Intl Units Cap) 1 cap PO Q7D [facility] Last Admin: 09/02/17 14:34 Dose: 1 cap Ferrous Sulfate (Feosol Liq) 300 mg PO TID [facility] Last Admin: 09/02/17 14:32 Dose: 300 mg Guaifenesin/Codeine Phosphate (Robitussin W/Codeine) 5 ml PO Q4H PRN PRN Reason: Cough and congestion Last Admin: 09/01/17 17:42 Dose: 5 ml Heparin Sodium (Porcine) (Heparin) 5,000 units SC Q12 [facility] PRN Reason: Protocol Last Admin: 09/02/17 10:19 Dose: 5,000 units Insulin Human Lispro (Humalog Med) 0 units SC ACHS [facility] PRN Reason: Protocol Last Admin: 09/02/17 14:27 Dose: Not Given Lactic Acid (Lac-Hydrin 12% Cream (140 G)) 0 ea TOP DAILY [facility] Last Admin: 09/02/17 14:27 Dose: 1 cre Levothyroxine Sodium (Synthroid) 50 mcg IVP DAILY [facility] Last Admin: 09/02/17 10:18 Dose: 50 mcg Multivitamins/Vitamin C (Multi-Delyn Liquid) 15 ml PO 0800 [facility] Last Admin: 09/02/17 10:20 Dose: 15 ml Nystatin (Nystop Topical Powder) 1 gm TOP DAILY [facility] Last Admin: 09/02/17 14:35 Dose: 1 applic Pantoprazole Sodium (Protonix Susp) 40 mg PO ACB [facility] Last Admin: 09/02/17 08:50 Dose: 40 mg Phenol/Menthol (Phenaseptic 1.4% Throat [place]) 0 ml MT Q2H PRN PRN Reason: Sore Throat Last Admin: 08/27/17 17:45 Dose: 1 spr Zinc Sulfate (Zinc Sulfate 220 Mg Cap) 220 mg PO DAILY [facility] Last Admin: 09/02/17 10:20 Dose: 220 mg - Labs Labs: 09/02/17 06:24 09/02/17 06:24 PT 12.5 SECONDS (9.4-12.5) 08/17/17 05:45 INR 1.09 (0.93-1.08) H 08/17/17 05:45 APTT 27.7 Seconds (25.1-36.5) 08/17/17 05:45 Attending/Attestation - Attestation I have personally seen and examined this patient.: Yes I have fully participated in the care of the patient.: Yes I have reviewed all pertinent clinical information, including history, physical exam and plan: Yes Notes (Text): 09/02/17 15:36 67 year old female with past medical history of COPD who initially presented with cellulitis and UTI. Hospital course was complicated with COPD exacerbation, hypercapnic respiratory failure s/p intubation. Patient is now s/p trach, on trach collar. She is s/p antibiotics for pneumonia and steroids taper. Pulmonary follow up was requested for trach care. Speech and swallow is also following. She had enteritis on recent CT abd/pelvis. Symptoms improved after rectal tube was placed. Continue to monitor anemia closely. She is on po iron supplementation. She had CATE earlier in hospital course which has resolved. Juan Rodriguez MD Hospitalist.
[2017-09-02] MEDS: Levothyroxine 100 mcg (0.1 mg) Inj IVP SCH (10:18)
[2017-09-02] MEDS: Ferrous Sulfate 300 mg/5 mL Liq UD PO SCH ×4 (10:19→17:25)
[2017-09-02] MEDS: Multi Vitamins 15 mL UD Oral Solution PO SCH (10:20)
[2017-09-02] MEDS: Ammonium Lactate 12% Cream (140 g) TOP SCH ×2 (10:21→14:27)
[2017-09-02] MEDS: Ergocalciferol 50,000 Intl Units Cap PO SCH (14:34)
[2017-09-02] MEDS: Nystatin 100,000 Units/gm Topical Pow(15 gm) TOP SCH (14:35)
--- NOTE | 2017-09-02 18:04 | CP.PCM.PN ---
Subjective - Date & Time of Evaluation Date of Evaluation: 09/02/17 Time of Evaluation: 17:45 - Subjective Subjective: Infectious Disease Follow Up: September 02, 2017 67 yo female presenting with 3 weeks of RLE ulceration, swelling and leaking from the wound as well as multiple falls in the past 3 weeks. The patient has an extensive medical history of asthma, arthritis, vitamin C deficiency, and possible thyroid disease. Draining RLE ulceration... cellulitis improved/resolved. Multiple chronic medical issues. Still with persistent dry cough. Otherwise stable. Mild erythema and excoriation of the folds in the abdomen and under the breasts. UTI with Klebsiella earlier in hospitalization but had treatment with Cipro that is now completed. Social Issues. The patient had respiratory distress with no improvement from BiPAP. Patient required intubation and ventilation. Transferred to MICU for further care. The patient was started on Zyvox and Aztreonam IV. Patient had a positive C. Diff antigen but negative toxin. Remains ventilated today. Appears stable. Chest X-ray not showing new findings. No leukocytosis. Cultures pending... so far negative. Patient unable to be weaned from ventilator. Supportive care. No fevers or leukocytosis. First two Procalcitonin equivocal. The patient had hypothermia ranging from 93.0 F starting from two days ago. Temperature did rise back up to 99.0 F and has been hovering around 97.7 F. Rechecking procalcitonin... now at 1.49. Difficulty from weaning from the ventilator. Patient is opening eyes and tracking now. Creatinine has been improving and is down to 0.9 from 1.1 from 1.2 from 1.3 from 1.5 from 2.0 now. No leukocytosis. Open tracheostomy done 08/17/2017. Failed ventilator weaning during this hospitalization. Patient has completed antibiotic regimens and is off antibiotics at this time. Recently comleted PO Vancomycin. Patient is awake and alert. So far stable. No further diarrhea episodes. Last C. Diff antigen positive. Completed therapy. Can stop isolation. Overall stable. No new issues at this time. Objective - Vital Signs/Intake and Output Vital Signs (last 24 hours): Temp Pulse Resp BP Pulse Ox 98.5 F 88 27 H 112/63 97 09/02/17 16:00 09/02/17 16:57 09/02/17 16:00 09/02/17 12:40 09/02/17 16:00 Intake and Output: 09/02/17 09/02/17 06:59 18:59 Intake Total 600 Output Total 750 Balance -150 - Medications Medications: Current Medications Acetaminophen (Tylenol 325mg Tab) 650 mg PO Q4H PRN PRN Reason: Pain, moderate (4-7) Albuterol/Ipratropium (Duoneb 3 Mg/0.5 Mg (3 Ml) Ud) 3 ml IH [id number] PRN PRN Reason: SOB Last Admin: 08/31/17 17:27 Dose: 3 ml Albuterol/Ipratropium (Duoneb 3 Mg/0.5 Mg (3 Ml) Ud) 3 ml IH Q6H [facility] Last Admin: 09/02/17 13:08 Dose: 3 ml Budesonide (Pulmicort Respules) 0.5 mg IH [id number] [facility] Last Admin: 09/02/17 08:09 Dose: 0.5 mg Diphenhydramine HCl (Benadryl) 25 mg IVP Q4H PRN PRN Reason: Allergy symptoms Last Admin: 08/28/17 02:22 Dose: 25 mg Ergocalciferol (Drisdol 50,000 Intl Units Cap) 1 cap PO Q7D [facility] Last Admin: 09/02/17 14:34 Dose: 1 cap Ferrous Sulfate (Feosol Liq) 300 mg PO TID [facility] Last Admin: 09/02/17 17:25 Dose: 300 mg Guaifenesin/Codeine Phosphate (Robitussin W/Codeine) 5 ml PO Q4H PRN PRN Reason: Cough and congestion Last Admin: 09/01/17 17:42 Dose: 5 ml Heparin Sodium (Porcine) (Heparin) 5,000 units SC Q12 [facility] PRN Reason: Protocol Last Admin: 09/02/17 10:19 Dose: 5,000 units Insulin Human Lispro (Humalog Med) 0 units SC ACHS [facility] PRN Reason: Protocol Last Admin: 09/02/17 17:24 Dose: Not Given Lactic Acid (Lac-Hydrin 12% Cream (140 G)) 0 ea TOP DAILY [facility] Last Admin: 09/02/17 14:27 Dose: 1 cre Levothyroxine Sodium (Synthroid) 50 mcg IVP DAILY [facility] Last Admin: 09/02/17 10:18 Dose: 50 mcg Multivitamins/Vitamin C (Multi-Delyn Liquid) 15 ml PO 0800 [facility] Last Admin: 09/02/17 10:20 Dose: 15 ml Nystatin (Nystop Topical Powder) 1 gm TOP DAILY [facility] Last Admin: 09/02/17 14:35 Dose: 1 applic Pantoprazole Sodium (Protonix Susp) 40 mg PO ACB [facility] Last Admin: 09/02/17 08:50 Dose: 40 mg Phenol/Menthol (Phenaseptic 1.4% Throat [place]) 0 ml MT Q2H PRN PRN Reason: Sore Throat Last Admin: 08/27/17 17:45 Dose: 1 spr Zinc Sulfate (Zinc Sulfate 220 Mg Cap) 220 mg PO DAILY [facility] Last Admin: 09/02/17 10:20 Dose: 220 mg - Labs Labs: 09/02/17 06:24 09/02/17 06:24 PT 12.5 SECONDS (9.4-12.5) 08/17/17 05:45 INR 1.09 (0.93-1.08) H 08/17/17 05:45 APTT 27.7 Seconds (25.1-36.5) 08/17/17 05:45 - Constitutional Appears: Non-toxic, No Acute Distress, Chronically Ill - Head Exam Additional comments: trach and vented - Eye Exam Eye Exam: EOMI, PERRL Pupil Exam: NORMAL ACCOMODATION, PERRL - ENT Exam ENT Exam: Mucous Membranes Moist, Normal External Ear Exam, TM's Normal Bilaterally - Neck Exam Neck Exam: Full ROM, Normal Inspection - Respiratory Exam Respiratory Exam: Clear to Ausculation Bilateral, NORMAL BREATHING PATTERN. absent: Rales, Rhonchi, Wheezes - Cardiovascular Exam Cardiovascular Exam: REGULAR RHYTHM, RRR, +S1, +S2 - GI/Abdominal Exam GI & Abdominal Exam: Soft, Normal Bowel Sounds. absent: Distended, Tenderness - Extremities Exam Extremities Exam: Full ROM, Normal Inspection - Neurological Exam Neurological Exam: Alert, Awake, CN II-XII Intact, Oriented x3 - Psychiatric Exam Psychiatric exam: Normal Affect, Normal Mood - Skin Skin Exam: Intact, Normal Color Assessment and Plan - Assessment and Plan (Free Text) Assessment: 67 yo female with multiple medical issues with PCN allergy diagnosed as a teenager verified by an [employer]. The patient with leukocytosis. Await cultures especially urine cultures. Diabetes and HTN history? Local wound care. Elevated ESR and C-reactive protein. Completed Vancomycin and Aztreonam for antibiotic coverage. UTI with E. coli sensitive to Azactam. Was on Vancomycin for cellulitis IV. For UTI for 5-7 days treatment... completed. Supportive care. Cellulitis appears improved. No new issues. Social issues currently. Homeless at this time. CT scan of chest done. No infiltrates seen. Afebrile the past 24 hours. Mild congestion noted in CT with small pulmonary effusions. No leukocytosis. Slightly elevated procalcitonin (0.66) which is undefined without stronger evidence for pneumonia. When encouraged, she is able to use the incentive spirometer without issues and ambulate with minimal difficulty. Repeat procalcitonin showing 0.71. UTI with Klebsiella. Sensitive to Cipro. Was on Cipro for 5 day course at 500mg PO BID. Completed the antibiotic course. Stable currently. No new issues. Off antibiotics at this time. Multiple social issues. Chronic cough still with periods of hacking. Complained of Vague mild general pains. During this hospitalization, the patient developed respiratory failure and required intubation. Started on Zyvox and Aztreonam IV. Will add Flagyl as well. No leukocytosis. Noted C. Diff with positive antigen but negative toxin. Supportive care. Remains intubated and ventilated. Cultures pending. C. Diff negative to date. No leukocytosis or fever reported. Essentially clear X-ray. Hypothermia episodes most of yesterday to this morning. Antibiotic courses completed. Noted gram positive cocci in most recent urine culture. Still awaiting identification. Supportive care. Patient did improve mentally. Still difficulty in weaning off respirator. She remains intubated. Failed weaning from vent. Tracheotomy performed 08/17/2017. Patient is awake and alert. 08/23/2017 C. Diff testing was positive for antigen and negative for toxin. Supportive care. Completed PO Vancomycin for C. Diff. No new issues. Sitting in chair for a few hours. No new issues at this time. Currently no diarrhea. Can d/c isolation. No new issues at this time. Off all antibiotics at this time. Thank you for allowing me to participate in the care of the patient, we will follow with you.
[2017-09-02] MEDS: guaiFENesin-Codeine 100-10mg/5ml Syrup (5 ml) UD PO PRN (23:18)
[2017-09-03 06:51] LABS: BASO # 0.09 K/mm3 (0.0-2.0); BASO % 1.1 % (0.0-3.0); EOS # 0.6 (0.0-0.7); EOS % 7.1 % (1.5-5.0); GRAN # 4.45 (1.4-6.5); GRAN % 55.4 % (50.0-68.0); HEMOGLOBIN 9.3 g/dL (12.0-16.0); LYMPH % 25.3 % (22.0-35.0); MEAN CORPUSCULAR HEMOGLOBIN 26.9 pg (25.0-35.0); MEAN CORPUSCULAR HGB CONC 30.2 g/dl (31.0-37.0); MEAN PLATELET VOLUME 8.9 fl (7.0-11.0); MONO # 0.9 (0.1-0.6); MONO % 11.1 % (1.0-6.0); RBC 3.46 10^6/uL (3.5-6.1); RED CELL DISTRIBUTION WIDTH 22.2 % (11.5-14.5)
[2017-09-03 07:05] LABS: ALB/GLOB RATIO 0.8 (1.1-1.8); ALBUMIN 3.3 g/dL (3.0-4.8); ALT/SGPT 27 U/L (7-56); AST/SGOT 42 U/L (14-36); BLOOD UREA NITROGEN 15 mg/dL (7-21); CALCIUM 9.1 mg/dL (8.4-10.5); GFR AFRICAN-AMERICAN > 60; GFR NON-AFRICAN AMERICAN 50
[2017-09-03] MEDS: Budesonide 0.5 mg/2 ml Inhal Susp UD IH SCH ×2 (07:37→19:34)
[2017-09-03] MEDS: Albuterol-Ipratrop 3 mg / 0.5 (3 ml) UD IH SCH ×3 (07:37→19:34)
[2017-09-03] MEDS: Insulin Lispro (humaLOG) MEDIUM Coverage SC SCH ×4 (08:08→22:02)
[2017-09-03] MEDS: Ammonium Lactate 12% Cream (140 g) TOP SCH (11:13)
[2017-09-03] MEDS: Levothyroxine 100 mcg (0.1 mg) Inj IVP SCH (11:15)
[2017-09-03] MEDS: Multi Vitamins 15 mL UD Oral Solution PO SCH (11:15)
[2017-09-03] MEDS: Ferrous Sulfate 300 mg/5 mL Liq UD PO SCH ×3 (11:15→19:14)
[2017-09-03] MEDS: Nystatin 100,000 Units/gm Topical Pow(15 gm) TOP SCH (11:19)
--- NOTE | 2017-09-03 13:44 | CP.PCM.PN ---
<Wendi Borja - Last Filed: 09/03/17 13:41> Subjective - Date & Time of Evaluation Date of Evaluation: 09/03/17 Time of Evaluation: 07:45 - Subjective Subjective: Patient seen and examined at bedside. Patient resting comfortably in bed with no new complaints at this time. No acute events overnight. She denies chest pain , SOB, nausea, vomiting, headaches. Objective - Vital Signs/Intake and Output Vital Signs (last 24 hours): Temp Pulse Resp BP Pulse Ox 98.1 F 84 22 120/61 98 09/03/17 08:00 09/03/17 09:33 09/03/17 08:00 09/03/17 08:00 09/03/17 08:00 Intake and Output: 09/03/17 09/03/17 06:59 18:59 Intake Total 240 Output Total 350 Balance -110 - Medications Medications: Current Medications Acetaminophen (Tylenol 325mg Tab) 650 mg PO Q4H PRN PRN Reason: Pain, moderate (4-7) Albuterol/Ipratropium (Duoneb 3 Mg/0.5 Mg (3 Ml) Ud) 3 ml IH [id number] PRN PRN Reason: SOB Last Admin: 08/31/17 17:27 Dose: 3 ml Albuterol/Ipratropium (Duoneb 3 Mg/0.5 Mg (3 Ml) Ud) 3 ml IH [id number] [facility] Last Admin: 09/03/17 13:12 Dose: 3 ml Budesonide (Pulmicort Respules) 0.5 mg IH [id number] [facility] Last Admin: 09/03/17 07:37 Dose: 0.5 mg Diphenhydramine HCl (Benadryl) 25 mg IVP Q4H PRN PRN Reason: Allergy symptoms Last Admin: 08/28/17 02:22 Dose: 25 mg Ergocalciferol (Drisdol 50,000 Intl Units Cap) 1 cap PO Q7D [facility] Last Admin: 09/02/17 14:34 Dose: 1 cap Ferrous Sulfate (Feosol Liq) 300 mg PO TID [facility] Last Admin: 09/03/17 11:15 Dose: 300 mg Guaifenesin/Codeine Phosphate (Robitussin W/Codeine) 5 ml PO Q4H PRN PRN Reason: Cough and congestion Last Admin: 09/02/17 23:18 Dose: 5 ml Heparin Sodium (Porcine) (Heparin) 5,000 units SC Q12 [facility] PRN Reason: Protocol Last Admin: 09/03/17 11:12 Dose: 5,000 units Insulin Human Lispro (Humalog Med) 0 units SC ACHS [facility] PRN Reason: Protocol Last Admin: 09/03/17 08:08 Dose: Not Given Lactic Acid (Lac-Hydrin 12% Cream (140 G)) 0 ea TOP DAILY [facility] Last Admin: 09/03/17 11:13 Dose: Not Given Levothyroxine Sodium (Synthroid) 50 mcg IVP DAILY [facility] Last Admin: 09/03/17 11:15 Dose: 50 mcg Multivitamins/Vitamin C (Multi-Delyn Liquid) 15 ml PO 0800 [facility] Last Admin: 09/03/17 11:15 Dose: 15 ml Nystatin (Nystop Topical Powder) 1 gm TOP DAILY [facility] Last Admin: 09/03/17 11:19 Dose: Not Given Pantoprazole Sodium (Protonix Inj) 40 mg IVP DAILY [facility] Phenol/Menthol (Phenaseptic 1.4% Throat [place]) 0 ml MT Q2H PRN PRN Reason: Sore Throat Last Admin: 08/27/17 17:45 Dose: 1 spr Zinc Sulfate (Zinc Sulfate 220 Mg Cap) 220 mg PO DAILY [facility] Last Admin: 09/03/17 11:15 Dose: 220 mg - Labs Labs: 09/03/17 05:15 09/03/17 05:15 PT 12.5 SECONDS (9.4-12.5) 08/17/17 05:45 INR 1.09 (0.93-1.08) H 08/17/17 05:45 APTT 27.7 Seconds (25.1-36.5) 08/17/17 05:45 - Additional Findings Additional findings: - Constitutional Appears: Non-toxic, No Acute Distress, Chronically Ill - Head Exam Head Exam: ATRAUMATIC, NORMAL INSPECTION, NORMOCEPHALIC - Eye Exam Eye Exam: EOMI, Normal appearance - ENT Exam Additional comments: trach in place - Respiratory Exam Respiratory Exam: Clear to Ausculation Bilateral. absent: Rales, Rhonchi, Wheezes Additional comments: tachypnea - Cardiovascular Exam Cardiovascular Exam: Tachycardia, REGULAR RHYTHM, +S1, +S2. absent: Murmur - GI/Abdominal Exam GI & Abdominal Exam: Distended, Soft, Normal Bowel Sounds. absent: tenderness - Extremities Exam Extremities Exam: Pedal edema (R>L). absent: Calf Tenderness - Neurological Exam Neurological Exam: Alert, Awake - Skin Skin Exam: Dry, Intact, Normal Color, Warm Assessment and Plan - Assessment and Plan (Free Text) Assessment: Patient is a 67 year old female with history of asthma, arthritis, anemia, and obesity who was originally admitted for right lower extremity cellulitis and UTI. She developed acute hypercapnic respiratory failure secondary to asthma, reactive airway disease and kyphoscoliosis. C. Diff antigen positive, toxin negative. S/P Trach. Patient is alert and awake. Currently afebrile and hemodynamically stable. Plan: Disposition: Ordered OOB to chair for deconditioning and ensure for poor appetite. Currently awaiting placement. Hypercapnic Respiratory Failure s/p Trach -Last Chest X-Ray (08/24) showing abnormal opacity at left base and lateral mid left lung -Duonebs 3ml IH [id number] scheduled and PRN -Pulmicort 0.5mg IH [id number] -Robitussin DM PO Q4H PRN -completed antibiotic course of zyvox and aztreonam, as well as vanc -Continue Suctioning Q2H and Chest PT PRN -Speech and Swallow Evaluation recommendation for pureed diet with nectar thick liquids and extra gravy -Aspiration precautions -Pulmonology consulted, all recommendations appreciated -PT/OT Eval/Treat Chronic Abdominal Distention -C. Diff antigen positive, C. diff toxin negative -CT Abdomen/Pelvis with IV Contrast showed fluid-filled, dilated colon, with air fluid levels consistent with rapid small bowel transit, nonspecific enteritis, and small bowel is decompressed -ID consulted, all recommendations appreciated Chronic Normocytic Anemia -H/H stable at this time -Continue Feosol 300mg PO TID -Monitor with daily CBC's -Will consider transfusion if needed HTN -Holding home Zestril as patient had ACTE during this hospital visit -Currently well controlled without medication -Monitor with Vital Signs Q4H Hypothyriodism -Continue Synthroid 50mcg daily Hypocalcemia -Continue Caltrate 600mg PO BID Vitamin D Deficiency -Continue weekly Drisdol Difficulty Sleeping -Continue Benadryl PRN GI: Protonix DVT: Heparin <Juan Rodriguez - Last Filed: 09/03/17 15:29> Objective - Vital Signs/Intake and Output Vital Signs (last 24 hours): Temp Pulse Resp BP Pulse Ox 99.1 F 91 H 27 H 104/77 92 L 09/03/17 12:00 09/03/17 13:00 09/03/17 13:00 09/03/17 13:00 09/03/17 13:00 Intake and Output: 09/03/17 09/03/17 06:59 18:59 Intake Total 240 Output Total 350 Balance -110 - Medications Medications: Current Medications Acetaminophen (Tylenol 325mg Tab) 650 mg PO Q4H PRN PRN Reason: Pain, moderate (4-7) Albuterol/Ipratropium (Duoneb 3 Mg/0.5 Mg (3 Ml) Ud) 3 ml IH [id number] PRN PRN Reason: SOB Last Admin: 08/31/17 17:27 Dose: 3 ml Albuterol/Ipratropium (Duoneb 3 Mg/0.5 Mg (3 Ml) Ud) 3 ml IH [id number] [facility] Last Admin: 09/03/17 13:12 Dose: 3 ml Budesonide (Pulmicort Respules) 0.5 mg IH [id number] [facility] Last Admin: 09/03/17 07:37 Dose: 0.5 mg Diphenhydramine HCl (Benadryl) 25 mg IVP Q4H PRN PRN Reason: Allergy symptoms Last Admin: 08/28/17 02:22 Dose: 25 mg Ergocalciferol (Drisdol 50,000 Intl Units Cap) 1 cap PO Q7D [facility] Last Admin: 09/02/17 14:34 Dose: 1 cap Ferrous Sulfate (Feosol Liq) 300 mg PO TID [facility] Last Admin: 09/03/17 11:15 Dose: 300 mg Guaifenesin/Codeine Phosphate (Robitussin W/Codeine) 5 ml PO Q4H PRN PRN Reason: Cough and congestion Last Admin: 09/02/17 23:18 Dose: 5 ml Heparin Sodium (Porcine) (Heparin) 5,000 units SC Q12 [facility] PRN Reason: Protocol Last Admin: 09/03/17 11:12 Dose: 5,000 units Insulin Human Lispro (Humalog Med) 0 units SC ACHS [facility] PRN Reason: Protocol Last Admin: 09/03/17 08:08 Dose: Not Given Lactic Acid (Lac-Hydrin 12% Cream (140 G)) 0 ea TOP DAILY [facility] Last Admin: 09/03/17 11:13 Dose: Not Given Levothyroxine Sodium (Synthroid) 50 mcg IVP DAILY [facility] Last Admin: 09/03/17 11:15 Dose: 50 mcg Multivitamins/Vitamin C (Multi-Delyn Liquid) 15 ml PO 0800 [facility] Last Admin: 09/03/17 11:15 Dose: 15 ml Nystatin (Nystop Topical Powder) 1 gm TOP DAILY [facility] Last Admin: 09/03/17 11:19 Dose: Not Given Pantoprazole Sodium (Protonix Inj) 40 mg IVP DAILY [facility] Phenol/Menthol (Phenaseptic 1.4% Throat [place]) 0 ml MT Q2H PRN PRN Reason: Sore Throat Last Admin: 08/27/17 17:45 Dose: 1 spr Zinc Sulfate (Zinc Sulfate 220 Mg Cap) 220 mg PO DAILY [facility] Last Admin: 09/03/17 11:15 Dose: 220 mg - Labs Labs: 09/03/17 05:15 09/03/17 05:15 PT 12.5 SECONDS (9.4-12.5) 08/17/17 05:45 INR 1.09 (0.93-1.08) H 08/17/17 05:45 APTT 27.7 Seconds (25.1-36.5) 08/17/17 05:45 Attending/Attestation - Attestation I have personally seen and examined this patient.: Yes I have fully participated in the care of the patient.: Yes I have reviewed all pertinent clinical information, including history, physical exam and plan: Yes Notes (Text): 09/03/17 15:21 67 year old female with past medical history of COPD who initially presented with cellulitis and UTI. Hospital course was complicated with COPD exacerbation, hypercapnic respiratory failure s/p intubation. Patient is now s/p trach, on trach collar. She is s/p antibiotics for pneumonia and steroids taper. She had enteritis on recent CT abd/pelvis. Symptoms improved after rectal tube was placed later discontinued. Continue to monitor anemia closely which is stable. She is on po iron supplementation. She had CATE earlier in hospital course which has resolved. CMx/Sw notes were reviewed regarding d/c planning. Juan Rodriguez MD Hospitalist.
[2017-09-03] MEDS: Pantoprazole 40 mg Susp UD PO SCH (14:49)
--- NOTE | 2017-09-03 17:44 | CP.PCM.PN ---
Subjective - Date & Time of Evaluation Date of Evaluation: 09/03/17 Time of Evaluation: 13:00 - Subjective Subjective: Infectious Disease Follow Up: September 03, 2017 67 yo female presenting with 3 weeks of RLE ulceration, swelling and leaking from the wound as well as multiple falls in the past 3 weeks. The patient has an extensive medical history of asthma, arthritis, vitamin C deficiency, and possible thyroid disease. Draining RLE ulceration... cellulitis improved/resolved. Multiple chronic medical issues. Still with persistent dry cough. Otherwise stable. Mild erythema and excoriation of the folds in the abdomen and under the breasts. UTI with Klebsiella earlier in hospitalization but had treatment with Cipro that is now completed. Social Issues. The patient had respiratory distress with no improvement from BiPAP. Patient required intubation and ventilation. Transferred to MICU for further care. The patient was started on Zyvox and Aztreonam IV. Patient had a positive C. Diff antigen but negative toxin. Remains ventilated today. Appears stable. Chest X-ray not showing new findings. No leukocytosis. Cultures pending... so far negative. Patient unable to be weaned from ventilator. Supportive care. No fevers or leukocytosis. First two Procalcitonin equivocal. The patient had hypothermia ranging from 93.0 F starting from two days ago. Temperature did rise back up to 99.0 F and has been hovering around 97.7 F. Rechecking procalcitonin... now at 1.49. Difficulty from weaning from the ventilator. Patient is opening eyes and tracking now. Creatinine has been improving and is down to 0.9 from 1.1 from 1.2 from 1.3 from 1.5 from 2.0 now. No leukocytosis. Open tracheostomy done 08/17/2017. Failed ventilator weaning during this hospitalization. Patient has completed antibiotic regimens and is off antibiotics at this time. Recently comleted PO Vancomycin. Patient is awake and alert. So far stable. No further diarrhea episodes. Last C. Diff antigen positive. Completed therapy. Can stop isolation. Overall stable. No new issues at this time. Objective - Vital Signs/Intake and Output Vital Signs (last 24 hours): Temp Pulse Resp BP Pulse Ox 99.1 F 81 38 H 118/59 L 99 09/03/17 12:00 09/03/17 16:00 09/03/17 16:00 09/03/17 16:00 09/03/17 16:00 Intake and Output: 09/03/17 09/03/17 06:59 18:59 Intake Total 240 500 Output Total 350 Balance -110 500 - Medications Medications: Current Medications Acetaminophen (Tylenol 325mg Tab) 650 mg PO Q4H PRN PRN Reason: Pain, moderate (4-7) Albuterol/Ipratropium (Duoneb 3 Mg/0.5 Mg (3 Ml) Ud) 3 ml IH [id number] PRN PRN Reason: SOB Last Admin: 08/31/17 17:27 Dose: 3 ml Albuterol/Ipratropium (Duoneb 3 Mg/0.5 Mg (3 Ml) Ud) 3 ml IH [id number] [facility] Last Admin: 09/03/17 13:12 Dose: 3 ml Budesonide (Pulmicort Respules) 0.5 mg IH [id number] [facility] Last Admin: 09/03/17 07:37 Dose: 0.5 mg Diphenhydramine HCl (Benadryl) 25 mg IVP Q4H PRN PRN Reason: Allergy symptoms Last Admin: 08/28/17 02:22 Dose: 25 mg Ergocalciferol (Drisdol 50,000 Intl Units Cap) 1 cap PO Q7D [facility] Last Admin: 09/02/17 14:34 Dose: 1 cap Ferrous Sulfate (Feosol Liq) 300 mg PO TID [facility] Last Admin: 09/03/17 16:49 Dose: Not Given Guaifenesin/Codeine Phosphate (Robitussin W/Codeine) 5 ml PO Q4H PRN PRN Reason: Cough and congestion Last Admin: 09/02/17 23:18 Dose: 5 ml Heparin Sodium (Porcine) (Heparin) 5,000 units SC Q12 [facility] PRN Reason: Protocol Last Admin: 09/03/17 11:12 Dose: 5,000 units Insulin Human Lispro (Humalog Med) 0 units SC ACHS [facility] PRN Reason: Protocol Last Admin: 09/03/17 16:00 Dose: Not Given Lactic Acid (Lac-Hydrin 12% Cream (140 G)) 0 ea TOP DAILY [facility] Last Admin: 09/03/17 11:13 Dose: Not Given Levothyroxine Sodium (Synthroid) 50 mcg IVP DAILY [facility] Last Admin: 09/03/17 11:15 Dose: 50 mcg Multivitamins (Thera Tab) 1 tab PO 0800 [facility] Nystatin (Nystop Topical Powder) 1 gm TOP DAILY [facility] Last Admin: 09/03/17 11:19 Dose: Not Given Pantoprazole Sodium (Protonix Inj) 40 mg IVP DAILY [facility] Phenol/Menthol (Phenaseptic 1.4% Throat [place]) 0 ml MT Q2H PRN PRN Reason: Sore Throat Last Admin: 08/27/17 17:45 Dose: 1 spr Zinc Sulfate (Zinc Sulfate 220 Mg Cap) 220 mg PO DAILY [facility] Last Admin: 09/03/17 11:15 Dose: 220 mg - Labs Labs: 09/03/17 05:15 09/03/17 05:15 PT 12.5 SECONDS (9.4-12.5) 08/17/17 05:45 INR 1.09 (0.93-1.08) H 08/17/17 05:45 APTT 27.7 Seconds (25.1-36.5) 08/17/17 05:45 - Constitutional Appears: Non-toxic, No Acute Distress, Chronically Ill - Head Exam Additional comments: trach and vented - Eye Exam Eye Exam: EOMI, PERRL Pupil Exam: NORMAL ACCOMODATION, PERRL - ENT Exam ENT Exam: Mucous Membranes Moist, Normal External Ear Exam, TM's Normal Bilaterally - Neck Exam Neck Exam: Full ROM, Normal Inspection - Respiratory Exam Respiratory Exam: Clear to Ausculation Bilateral, NORMAL BREATHING PATTERN. absent: Rales, Rhonchi, Wheezes - Cardiovascular Exam Cardiovascular Exam: REGULAR RHYTHM, RRR, +S1, +S2 - GI/Abdominal Exam GI & Abdominal Exam: Soft, Tenderness, Normal Bowel Sounds. absent: Distended - Extremities Exam Extremities Exam: Full ROM, Normal Inspection - Neurological Exam Neurological Exam: Alert, Awake, CN II-XII Intact, Oriented x3 - Psychiatric Exam Psychiatric exam: Normal Affect, Normal Mood - Skin Skin Exam: Intact, Normal Color Assessment and Plan - Assessment and Plan (Free Text) Assessment: 67 yo female with multiple medical issues with PCN allergy diagnosed as a teenager verified by an [employer]. The patient with leukocytosis. Await cultures especially urine cultures. Diabetes and HTN history? Local wound care. Elevated ESR and C-reactive protein. Completed Vancomycin and Aztreonam for antibiotic coverage. UTI with E. coli sensitive to Azactam. Was on Vancomycin for cellulitis IV. For UTI for 5-7 days treatment... completed. Supportive care. Cellulitis appears improved. No new issues. Social issues currently. Homeless at this time. CT scan of chest done. No infiltrates seen. Afebrile the past 24 hours. Mild congestion noted in CT with small pulmonary effusions. No leukocytosis. Slightly elevated procalcitonin (0.66) which is undefined without stronger evidence for pneumonia. When encouraged, she is able to use the incentive spirometer without issues and ambulate with minimal difficulty. Repeat procalcitonin showing 0.71. UTI with Klebsiella. Sensitive to Cipro. Was on Cipro for 5 day course at 500mg PO BID. Completed the antibiotic course. Stable currently. No new issues. Off antibiotics at this time. Multiple social issues. Chronic cough still with periods of hacking. Complained of Vague mild general pains. During this hospitalization, the patient developed respiratory failure and required intubation. Started on Zyvox and Aztreonam IV. Will add Flagyl as well. No leukocytosis. Noted C. Diff with positive antigen but negative toxin. Supportive care. Remains intubated and ventilated. Cultures pending. C. Diff negative to date. No leukocytosis or fever reported. Essentially clear X-ray. Hypothermia episodes most of yesterday to this morning. Antibiotic courses completed. Noted gram positive cocci in most recent urine culture. Still awaiting identification. Supportive care. Patient did improve mentally. Still difficulty in weaning off respirator. She remains intubated. Failed weaning from vent. Tracheotomy performed 08/17/2017. Patient is awake and alert. 08/23/2017 C. Diff testing was positive for antigen and negative for toxin. Supportive care. Completed PO Vancomycin for C. Diff. No new issues. Sitting in chair for a few hours. No new issues at this time. Currently no diarrhea. Can d/c isolation. No new issues at this time. Off all antibiotics at this time. Thank you for allowing me to participate in the care of the patient, we will follow with you.
[2017-09-04] MEDS: Albuterol-Ipratrop 3 mg / 0.5 (3 ml) UD IH SCH ×4 (01:40→20:25)
[2017-09-04] MEDS: Budesonide 0.5 mg/2 ml Inhal Susp UD IH SCH ×2 (07:56→20:25)
[2017-09-04 08:40] LABS: BASO # 0.11 K/mm3 (0.0-2.0); BASO % 1.3 % (0.0-3.0); EOS # 0.6 (0.0-0.7); EOS % 6.8 % (1.5-5.0); GRAN # 4.79 (1.4-6.5); GRAN % 54.8 % (50.0-68.0); LYMPH # 2.4 (1.2-3.4); LYMPH % 27.8 % (22.0-35.0); MEAN CELL VOLUME 87.9 fl (80.0-105.0); MEAN CORPUSCULAR HEMOGLOBIN 26.6 pg (25.0-35.0); MEAN CORPUSCULAR HGB CONC 30.3 g/dl (31.0-37.0); MEAN PLATELET VOLUME 8.8 fl (7.0-11.0); MONO # 0.8 (0.1-0.6); MONO % 9.3 % (1.0-6.0); RBC 3.38 10^6/uL (3.5-6.1); RED CELL DISTRIBUTION WIDTH 21.5 % (11.5-14.5); WHITE BLOOD COUNT 8.7 10^3/ul (4.5-11.0)
[2017-09-04 09:19] LABS: ALB/GLOB RATIO 0.8 (1.1-1.8); ALBUMIN 2.9 g/dL (3.0-4.8); CALCIUM 8.5 mg/dL (8.4-10.5)
[2017-09-04] MEDS: Ferrous Sulfate 300 mg/5 mL Liq UD PO SCH ×3 (09:50→18:09)
[2017-09-04] MEDS: Ammonium Lactate 12% Cream (140 g) TOP SCH (09:50)
[2017-09-04] MEDS: Nystatin 100,000 Units/gm Topical Pow(15 gm) TOP SCH (09:50)
[2017-09-04] MEDS ORDERED: Iron Complex Polysacch 150mg Cap PO SCH (10:00)
[2017-09-04] MEDS: Levothyroxine 100 mcg (0.1 mg) Inj IVP SCH (12:44)
[2017-09-04] MEDS: Multivitamin Therapeutic Tab PO SCH (12:49)
--- NOTE | 2017-09-04 13:20 | CP.PCM.PN ---
<Wendi Borja - Last Filed: 09/04/17 14:49> Subjective - Date & Time of Evaluation Date of Evaluation: 09/04/17 Time of Evaluation: 13:05 - Subjective Subjective: Patient seen and examined at bedside. Patient resting comfortably in bed with no new complaints at this time. No acute events overnight. She denies chest pain , SOB, abdominal pain, nausea, vomiting, diarrhea. Objective - Vital Signs/Intake and Output Vital Signs (last 24 hours): Temp Pulse Resp BP Pulse Ox 99.5 F 85 19 119/56 L 97 09/04/17 08:00 09/04/17 08:00 09/04/17 08:00 09/04/17 08:00 09/04/17 08:00 - Medications Medications: Current Medications Acetaminophen (Tylenol 325mg Tab) 650 mg PO Q4H PRN PRN Reason: Pain, moderate (4-7) Albuterol/Ipratropium (Duoneb 3 Mg/0.5 Mg (3 Ml) Ud) 3 ml IH [id number] PRN PRN Reason: SOB Last Admin: 08/31/17 17:27 Dose: 3 ml Albuterol/Ipratropium (Duoneb 3 Mg/0.5 Mg (3 Ml) Ud) 3 ml IH [id number] [facility] Last Admin: 09/04/17 07:56 Dose: 3 ml Budesonide (Pulmicort Respules) 0.5 mg IH [id number] [facility] Last Admin: 09/04/17 07:56 Dose: 0.5 mg Diphenhydramine HCl (Benadryl) 25 mg IVP Q4H PRN PRN Reason: Allergy symptoms Last Admin: 08/28/17 02:22 Dose: 25 mg Ergocalciferol (Drisdol 50,000 Intl Units Cap) 1 cap PO Q7D [facility] Last Admin: 09/02/17 14:34 Dose: 1 cap Ferrous Sulfate (Feosol Liq) 300 mg PO TID [facility] Last Admin: 09/03/17 19:14 Dose: Not Given Guaifenesin/Codeine Phosphate (Robitussin W/Codeine) 5 ml PO Q4H PRN PRN Reason: Cough and congestion Last Admin: 09/02/17 23:18 Dose: 5 ml Heparin Sodium (Porcine) (Heparin) 5,000 units SC Q12 [facility] PRN Reason: Protocol Last Admin: 09/04/17 12:45 Dose: 5,000 units Insulin Human Lispro (Humalog Med) 0 units SC ACHS [facility] PRN Reason: Protocol Last Admin: 09/03/17 22:02 Dose: Not Given Lactic Acid (Lac-Hydrin 12% Cream (140 G)) 0 ea TOP DAILY [facility] Last Admin: 09/03/17 11:13 Dose: Not Given Levothyroxine Sodium (Synthroid) 50 mcg IVP DAILY [facility] Last Admin: 09/04/17 12:44 Dose: 50 mcg Multivitamins (Thera Tab) 1 tab PO 0800 [facility] Last Admin: 09/04/17 12:49 Dose: 1 tab Nystatin (Nystop Topical Powder) 1 gm TOP DAILY [facility] Last Admin: 09/03/17 11:19 Dose: Not Given Pantoprazole Sodium (Protonix Inj) 40 mg IVP DAILY [facility] Last Admin: 09/04/17 12:47 Dose: 40 mg Phenol/Menthol (Phenaseptic 1.4% Throat [place]) 0 ml MT Q2H PRN PRN Reason: Sore Throat Last Admin: 08/27/17 17:45 Dose: 1 spr Zinc Sulfate (Zinc Sulfate 220 Mg Cap) 220 mg PO DAILY [facility] Last Admin: 09/04/17 12:49 Dose: 220 mg - Labs Labs: 09/04/17 08:19 09/04/17 08:19 PT 12.5 SECONDS (9.4-12.5) 08/17/17 05:45 INR 1.09 (0.93-1.08) H 08/17/17 05:45 APTT 27.7 Seconds (25.1-36.5) 08/17/17 05:45 - Additional Findings Additional findings: - Constitutional Appears: Non-toxic, No Acute Distress, Chronically Ill - Head Exam Head Exam: ATRAUMATIC, NORMAL INSPECTION, NORMOCEPHALIC - Eye Exam Eye Exam: EOMI, Normal appearance - ENT Exam Additional comments: trach in place - Respiratory Exam Respiratory Exam: Clear to Ausculation Bilateral. absent: Rales, Rhonchi, Wheezes Additional comments: tachypnea - Cardiovascular Exam Cardiovascular Exam: Tachycardia, REGULAR RHYTHM, +S1, +S2. absent: Murmur - GI/Abdominal Exam GI & Abdominal Exam: Distended, Soft, Normal Bowel Sounds. absent: tenderness - Extremities Exam Extremities Exam: Pedal edema (R>L). absent: Calf Tenderness - Neurological Exam Neurological Exam: Alert, Awake - Skin Skin Exam: Dry, Intact, Normal Color, Warm Assessment and Plan - Assessment and Plan (Free Text) Assessment: Patient is a 67 year old female with history of asthma, arthritis, anemia, and obesity who was originally admitted for right lower extremity cellulitis and UTI. She developed acute hypercapnic respiratory failure secondary to asthma, reactive airway disease and kyphoscoliosis. C. Diff antigen positive, toxin negative. S/P Trach. Patient is alert and awake. Currently afebrile and hemodynamically stable. Plan: Disposition: continue to encourage feedings and OOB to chair with PT/OT - no new issues at this time Hypercapnic Respiratory Failure s/p Trach -Last Chest X-Ray (08/24) showing abnormal opacity at left base and lateral mid left lung -Duonebs 3ml IH [id number] scheduled and PRN -Pulmicort 0.5mg IH [id number] -Robitussin DM PO Q4H PRN -completed antibiotic course of zyvox and aztreonam, as well as vanc -Continue Suctioning Q2H and Chest PT PRN -Speech and Swallow Evaluation recommendation for pureed diet with nectar thick liquids and extra gravy -Aspiration precautions -Pulmonology consulted, all recommendations appreciated -PT/OT Eval/Treat Chronic Abdominal Distention -C. Diff antigen positive, C. diff toxin negative -CT Abdomen/Pelvis with IV Contrast showed fluid-filled, dilated colon, with air fluid levels consistent with rapid small bowel transit, nonspecific enteritis, and small bowel is decompressed -ID consulted, all recommendations appreciated Chronic Normocytic Anemia -H/H stable at this time -Continue Feosol 300mg PO TID -Monitor with daily CBC's -Will consider transfusion if needed HTN -Holding home Zestril as patient had CATE during this hospital visit -Currently well controlled without medication -Monitor with Vital Signs Q4H Hypothyriodism -Continue Synthroid 50mcg daily Hypocalcemia -Continue Caltrate 600mg PO BID Vitamin D Deficiency -Continue weekly Drisdol Difficulty Sleeping -Continue Benadryl PRN GI: Protonix DVT: Heparin <Jaun Rodriguez - Last Filed: 09/04/17 15:06> Objective - Vital Signs/Intake and Output Vital Signs (last 24 hours): Temp Pulse Resp BP Pulse Ox 99.5 F 85 19 119/56 L 97 09/04/17 08:00 09/04/17 08:00 09/04/17 08:00 09/04/17 08:00 09/04/17 08:00 - Medications Medications: Current Medications Acetaminophen (Tylenol 325mg Tab) 650 mg PO Q4H PRN PRN Reason: Pain, moderate (4-7) Albuterol/Ipratropium (Duoneb 3 Mg/0.5 Mg (3 Ml) Ud) 3 ml IH [id number] PRN PRN Reason: SOB Last Admin: 08/31/17 17:27 Dose: 3 ml Albuterol/Ipratropium (Duoneb 3 Mg/0.5 Mg (3 Ml) Ud) 3 ml IH [id number] [facility] Last Admin: 09/04/17 13:36 Dose: 3 ml Budesonide (Pulmicort Respules) 0.5 mg IH [id number] [facility] Last Admin: 09/04/17 07:56 Dose: 0.5 mg Diphenhydramine HCl (Benadryl) 25 mg IVP Q4H PRN PRN Reason: Allergy symptoms Last Admin: 08/28/17 02:22 Dose: 25 mg Ergocalciferol (Drisdol 50,000 Intl Units Cap) 1 cap PO Q7D [facility] Last Admin: 09/02/17 14:34 Dose: 1 cap Ferrous Sulfate (Feosol Liq) 300 mg PO TID [facility] Last Admin: 09/03/17 19:14 Dose: Not Given Guaifenesin/Codeine Phosphate (Robitussin W/Codeine) 5 ml PO Q4H PRN PRN Reason: Cough and congestion Last Admin: 09/02/17 23:18 Dose: 5 ml Heparin Sodium (Porcine) (Heparin) 5,000 units SC Q12 [facility] PRN Reason: Protocol Last Admin: 09/04/17 12:45 Dose: 5,000 units Potassium Chloride (Potassium Chloride 20 Meq/100 Ml) 20 meq in 100 mls @ 50 mls/hr IVPB Q2H [facility] Stop: 09/04/17 18:59 Insulin Human Lispro (Humalog Med) 0 units SC ACHS [facility] PRN Reason: Protocol Last Admin: 09/03/17 22:02 Dose: Not Given Lactic Acid (Lac-Hydrin 12% Cream (140 G)) 0 ea TOP DAILY [facility] Last Admin: 09/03/17 11:13 Dose: Not Given Levothyroxine Sodium (Synthroid) 50 mcg IVP DAILY [facility] Last Admin: 09/04/17 12:44 Dose: 50 mcg Multivitamins (Thera Tab) 1 tab PO 0800 [facility] Last Admin: 09/04/17 12:49 Dose: 1 tab Nystatin (Nystop Topical Powder) 1 gm TOP DAILY [facility] Last Admin: 09/03/17 11:19 Dose: Not Given Pantoprazole Sodium (Protonix Inj) 40 mg IVP DAILY [facility] Last Admin: 09/04/17 12:47 Dose: 40 mg Phenol/Menthol (Phenaseptic 1.4% Throat [place]) 0 ml MT Q2H PRN PRN Reason: Sore Throat Last Admin: 08/27/17 17:45 Dose: 1 spr Zinc Sulfate (Zinc Sulfate 220 Mg Cap) 220 mg PO DAILY [facility] Last Admin: 09/04/17 12:49 Dose: 220 mg - Labs Labs: 09/04/17 08:19 09/04/17 08:19 PT 12.5 SECONDS (9.4-12.5) 08/17/17 05:45 INR 1.09 (0.93-1.08) H 08/17/17 05:45 APTT 27.7 Seconds (25.1-36.5) 08/17/17 05:45 Attending/Attestation - Attestation I have personally seen and examined this patient.: Yes I have fully participated in the care of the patient.: Yes I have reviewed all pertinent clinical information, including history, physical exam and plan: Yes Notes (Text): 09/04/17 15:05 67 year old female with past medical history of COPD who initially presented with cellulitis and UTI. Hospital course was complicated with COPD exacerbation, hypercapnic respiratory failure s/p intubation. Patient is now s/p trach, on trach collar. She is s/p antibiotics for pneumonia and steroids taper. She had enteritis on recent CT abd/pelvis. Symptoms improved after rectal tube was placed later discontinued. Continue to monitor anemia closely which is stable. She is on po iron supplementation. She had CATE earlier in hospital course which had improved. Creatinine is slightly elevated today; will monitor. Will replete and repeat potassium. CMx/Sw notes were reviewed regarding d/c planning. Juan Rodriguez MD Hospitalist.
[2017-09-04] MEDS: Insulin Lispro (humaLOG) MEDIUM Coverage SC SCH ×3 (15:42→22:00)
--- NOTE | 2017-09-04 23:22 | CP.PCM.PN ---
Subjective - Date & Time of Evaluation Date of Evaluation: 09/04/17 Time of Evaluation: 22:30 - Subjective Subjective: Infectious Disease Follow Up: September 04, 2017 67 yo female presenting with 3 weeks of RLE ulceration, swelling and leaking from the wound as well as multiple falls in the past 3 weeks. The patient has an extensive medical history of asthma, arthritis, vitamin C deficiency, and possible thyroid disease. Draining RLE ulceration... cellulitis improved/resolved. Multiple chronic medical issues. Still with persistent dry cough. Otherwise stable. Mild erythema and excoriation of the folds in the abdomen and under the breasts. UTI with Klebsiella earlier in hospitalization but had treatment with Cipro that is now completed. Social Issues. The patient had respiratory distress with no improvement from BiPAP. Patient required intubation and ventilation. Transferred to MICU for further care. The patient was started on Zyvox and Aztreonam IV. Patient had a positive C. Diff antigen but negative toxin. Remains ventilated today. Appears stable. Chest X-ray not showing new findings. No leukocytosis. Cultures pending... so far negative. Patient unable to be weaned from ventilator. Supportive care. No fevers or leukocytosis. First two Procalcitonin equivocal. The patient had hypothermia ranging from 93.0 F starting from two days ago. Temperature did rise back up to 99.0 F and has been hovering around 97.7 F. Rechecking procalcitonin... now at 1.49. Difficulty from weaning from the ventilator. Patient is opening eyes and tracking now. Creatinine at 1.3 now. No leukocytosis. Open tracheostomy done 08/17/2017. Failed ventilator weaning during this hospitalization. Patient has completed antibiotic regimens and is off antibiotics at this time. Recently comleted PO Vancomycin. Patient is awake and alert. So far stable. No further diarrhea episodes. Last C. Diff antigen positive. Completed therapy. Can stop isolation. Off antibiotics now. Overall stable. No new issues at this time. Objective - Vital Signs/Intake and Output Vital Signs (last 24 hours): Temp Pulse Resp BP Pulse Ox 98.6 F 92 H 20 137/70 95 09/04/17 17:48 09/04/17 17:48 09/04/17 17:48 09/04/17 17:48 09/04/17 17:48 - Medications Medications: Current Medications Acetaminophen (Tylenol 325mg Tab) 650 mg PO Q4H PRN PRN Reason: Pain, moderate (4-7) Albuterol/Ipratropium (Duoneb 3 Mg/0.5 Mg (3 Ml) Ud) 3 ml IH [id number] PRN PRN Reason: SOB Last Admin: 08/31/17 17:27 Dose: 3 ml Albuterol/Ipratropium (Duoneb 3 Mg/0.5 Mg (3 Ml) Ud) 3 ml IH [id number] [facility] Last Admin: 09/04/17 20:25 Dose: 3 ml Budesonide (Pulmicort Respules) 0.5 mg IH [id number] [facility] Last Admin: 09/04/17 20:25 Dose: 0.5 mg Diphenhydramine HCl (Benadryl) 25 mg IVP Q4H PRN PRN Reason: Allergy symptoms Last Admin: 08/28/17 02:22 Dose: 25 mg Ergocalciferol (Drisdol 50,000 Intl Units Cap) 1 cap PO Q7D [facility] Last Admin: 09/02/17 14:34 Dose: 1 cap Ferrous Sulfate (Feosol Liq) 300 mg PO TID [facility] Last Admin: 09/04/17 18:09 Dose: 300 mg Guaifenesin/Codeine Phosphate (Robitussin W/Codeine) 5 ml PO Q4H PRN PRN Reason: Cough and congestion Last Admin: 09/02/17 23:18 Dose: 5 ml Heparin Sodium (Porcine) (Heparin) 5,000 units SC Q12 [facility] PRN Reason: Protocol Last Admin: 09/04/17 22:48 Dose: 5,000 units Insulin Human Lispro (Humalog Med) 0 units SC ACHS [facility] PRN Reason: Protocol Last Admin: 09/04/17 15:42 Dose: Not Given Lactic Acid (Lac-Hydrin 12% Cream (140 G)) 0 ea TOP DAILY [facility] Last Admin: 09/04/17 09:50 Dose: 1 cre Levothyroxine Sodium (Synthroid) 50 mcg IVP DAILY [facility] Last Admin: 09/04/17 12:44 Dose: 50 mcg Multivitamins (Thera Tab) 1 tab PO 0800 [facility] Last Admin: 09/04/17 12:49 Dose: 1 tab Nystatin (Nystop Topical Powder) 1 gm TOP DAILY [facility] Last Admin: 09/04/17 09:50 Dose: 1 applic Pantoprazole Sodium (Protonix Inj) 40 mg IVP DAILY [facility] Last Admin: 09/04/17 12:47 Dose: 40 mg Phenol/Menthol (Phenaseptic 1.4% Throat [place]) 0 ml MT Q2H PRN PRN Reason: Sore Throat Last Admin: 08/27/17 17:45 Dose: 1 spr Zinc Sulfate (Zinc Sulfate 220 Mg Cap) 220 mg PO DAILY [facility] Last Admin: 09/04/17 12:49 Dose: 220 mg - Labs Labs: 09/04/17 08:19 09/04/17 08:19 PT 12.5 SECONDS (9.4-12.5) 08/17/17 05:45 INR 1.09 (0.93-1.08) H 08/17/17 05:45 APTT 27.7 Seconds (25.1-36.5) 08/17/17 05:45 - Constitutional Appears: Non-toxic, No Acute Distress, Chronically Ill - Head Exam Additional comments: trach and vented - Eye Exam Eye Exam: EOMI, PERRL Pupil Exam: NORMAL ACCOMODATION, PERRL - ENT Exam ENT Exam: Mucous Membranes Moist, Normal External Ear Exam, TM's Normal Bilaterally - Neck Exam Neck Exam: Full ROM, Normal Inspection - Respiratory Exam Respiratory Exam: Clear to Ausculation Bilateral, NORMAL BREATHING PATTERN. absent: Rales, Rhonchi, Wheezes - Cardiovascular Exam Cardiovascular Exam: REGULAR RHYTHM, RRR, +S1, +S2 - GI/Abdominal Exam GI & Abdominal Exam: Soft, Normal Bowel Sounds. absent: Distended, Tenderness - Extremities Exam Extremities Exam: absent: Joint Swelling, Pedal Edema - Neurological Exam Neurological Exam: Alert, Awake, CN II-XII Intact, Oriented x3 - Psychiatric Exam Psychiatric exam: Normal Affect, Normal Mood - Skin Skin Exam: Intact, Normal Color Assessment and Plan - Assessment and Plan (Free Text) Assessment: 67 yo female with multiple medical issues with PCN allergy diagnosed as a teenager verified by an [employer]. The patient with leukocytosis. Await cultures especially urine cultures. Diabetes and HTN history? Local wound care. Elevated ESR and C-reactive protein. Completed Vancomycin and Aztreonam for antibiotic coverage. UTI with E. coli sensitive to Azactam. Was on Vancomycin for cellulitis IV. For UTI for 5-7 days treatment... completed. Supportive care. Cellulitis appears improved. No new issues. Social issues currently. Homeless at this time. CT scan of chest done. No infiltrates seen. Afebrile the past 24 hours. Mild congestion noted in CT with small pulmonary effusions. No leukocytosis. Slightly elevated procalcitonin (0.66) which is undefined without stronger evidence for pneumonia. When encouraged, she is able to use the incentive spirometer without issues and ambulate with minimal difficulty. Repeat procalcitonin showing 0.71. UTI with Klebsiella. Sensitive to Cipro. Was on Cipro for 5 day course at 500mg PO BID. Completed the antibiotic course. Stable currently. No new issues. Off antibiotics at this time. Multiple social issues. Chronic cough still with periods of hacking. Complained of Vague mild general pains. During this hospitalization, the patient developed respiratory failure and required intubation. Started on Zyvox and Aztreonam IV. Will add Flagyl as well. No leukocytosis. Noted C. Diff with positive antigen but negative toxin. Supportive care. Remains intubated and ventilated. Cultures pending. C. Diff negative to date. No leukocytosis or fever reported. Essentially clear X-ray. Hypothermia episodes most of yesterday to this morning. Antibiotic courses completed. Noted gram positive cocci in most recent urine culture. Still awaiting identification. Supportive care. Patient did improve mentally. Still difficulty in weaning off respirator. She remains intubated. Failed weaning from vent. Tracheotomy performed 08/17/2017. Patient is awake and alert. 08/23/2017 C. Diff testing was positive for antigen and negative for toxin. Supportive care. Completed PO Vancomycin for C. Diff. No new issues. Sitting in chair for a few hours. No new issues at this time. Currently no diarrhea. Can d/c isolation. No new issues at this time. Off all antibiotics at this time. Thank you for allowing me to participate in the care of the patient, we will follow with you
[2017-09-05] MEDS: Albuterol-Ipratrop 3 mg / 0.5 (3 ml) UD IH SCH ×4 (01:50→22:08)
[2017-09-05] MEDS: Budesonide 0.5 mg/2 ml Inhal Susp UD IH SCH ×2 (07:43→22:11)
[2017-09-05 08:57] LABS: BASO # 0.08 K/mm3 (0.0-2.0); EOS # 0.6 (0.0-0.7); GRAN # 4.35 (1.4-6.5); GRAN % 54.9 % (50.0-68.0); LYMPH # 1.9 (1.2-3.4); MEAN CELL VOLUME 87.4 fl (80.0-105.0); MEAN CORPUSCULAR HEMOGLOBIN 26.5 pg (25.0-35.0); MEAN CORPUSCULAR HGB CONC 30.3 g/dl (31.0-37.0); MEAN PLATELET VOLUME 8.7 fl (7.0-11.0); MONO % 12.1 % (1.0-6.0); RBC 3.4 10^6/uL (3.5-6.1); RED CELL DISTRIBUTION WIDTH 21.5 % (11.5-14.5); WHITE BLOOD COUNT 7.9 10^3/ul (4.5-11.0)
[2017-09-05 09:03] LABS: ALB/GLOB RATIO 0.9 (1.1-1.8); CALCIUM 8.5 mg/dL (8.4-10.5)
--- NOTE | 2017-09-05 09:11 | CP.PCM.PN ---
<Wendi Borja - Last Filed: 09/05/17 12:06> Subjective - Date & Time of Evaluation Date of Evaluation: 09/05/17 Time of Evaluation: 09:08 - Subjective Subjective: Patient seen and examined at bedside. No acute events overnight. Patient resting comfortably in bed with no new complaints at this time. Patient says she still does not have a good appetite but denies abdominal pain, n/v/d. I encouraged good eating habits to help rebuild her strength. Patient denies chest pain, SOB, LE pain/swelling. Objective - Vital Signs/Intake and Output Vital Signs (last 24 hours): Temp Pulse Resp BP Pulse Ox 98.6 F 93 H 18 141/83 95 09/04/17 17:48 09/05/17 00:00 09/05/17 00:00 09/05/17 00:00 09/04/17 17:48 Intake and Output: 09/05/17 09/05/17 06:59 18:59 Intake Total 120 Balance 120 - Medications Medications: Current Medications Acetaminophen (Tylenol 325mg Tab) 650 mg PO Q4H PRN PRN Reason: Pain, moderate (4-7) Albuterol/Ipratropium (Duoneb 3 Mg/0.5 Mg (3 Ml) Ud) 3 ml IH [id number] PRN PRN Reason: SOB Last Admin: 08/31/17 17:27 Dose: 3 ml Albuterol/Ipratropium (Duoneb 3 Mg/0.5 Mg (3 Ml) Ud) 3 ml IH [id number] [facility] Last Admin: 09/05/17 07:43 Dose: 3 ml Budesonide (Pulmicort Respules) 0.5 mg IH [id number] [facility] Last Admin: 09/05/17 07:43 Dose: 0.5 mg Diphenhydramine HCl (Benadryl) 25 mg IVP Q4H PRN PRN Reason: Allergy symptoms Last Admin: 08/28/17 02:22 Dose: 25 mg Ergocalciferol (Drisdol 50,000 Intl Units Cap) 1 cap PO Q7D [facility] Last Admin: 09/02/17 14:34 Dose: 1 cap Ferrous Sulfate (Feosol Liq) 300 mg PO TID [facility] Last Admin: 09/04/17 18:09 Dose: 300 mg Guaifenesin/Codeine Phosphate (Robitussin W/Codeine) 5 ml PO Q4H PRN PRN Reason: Cough and congestion Last Admin: 09/02/17 23:18 Dose: 5 ml Heparin Sodium (Porcine) (Heparin) 5,000 units SC Q12 [facility] PRN Reason: Protocol Last Admin: 09/04/17 22:48 Dose: 5,000 units Insulin Human Lispro (Humalog Med) 0 units SC ACHS [facility] PRN Reason: Protocol Last Admin: 09/04/17 22:00 Dose: Not Given Lactic Acid (Lac-Hydrin 12% Cream (140 G)) 0 ea TOP DAILY [facility] Last Admin: 09/04/17 09:50 Dose: 1 cre Levothyroxine Sodium (Synthroid) 50 mcg IVP DAILY [facility] Last Admin: 09/04/17 12:44 Dose: 50 mcg Multivitamins (Thera Tab) 1 tab PO 0800 [facility] Last Admin: 09/04/17 12:49 Dose: 1 tab Nystatin (Nystop Topical Powder) 1 gm TOP DAILY [facility] Last Admin: 09/04/17 09:50 Dose: 1 applic Pantoprazole Sodium (Protonix Inj) 40 mg IVP DAILY [facility] Last Admin: 09/04/17 12:47 Dose: 40 mg Phenol/Menthol (Phenaseptic 1.4% Throat [place]) 0 ml MT Q2H PRN PRN Reason: Sore Throat Last Admin: 08/27/17 17:45 Dose: 1 spr Zinc Sulfate (Zinc Sulfate 220 Mg Cap) 220 mg PO DAILY [facility] Last Admin: 09/04/17 12:49 Dose: 220 mg - Labs Labs: 09/05/17 08:36 09/05/17 08:36 PT 12.5 SECONDS (9.4-12.5) 08/17/17 05:45 INR 1.09 (0.93-1.08) H 08/17/17 05:45 APTT 27.7 Seconds (25.1-36.5) 08/17/17 05:45 - Additional Findings Additional findings: - Constitutional Appears: Non-toxic, No Acute Distress, Chronically Ill - Head Exam Head Exam: ATRAUMATIC, NORMAL INSPECTION, NORMOCEPHALIC - Eye Exam Eye Exam: EOMI, Normal appearance - ENT Exam Additional comments: trach in place - Respiratory Exam Respiratory Exam: Clear to Ausculation Bilateral. absent: Rales, Rhonchi, Wheezes - Cardiovascular Exam Cardiovascular Exam: Tachycardia, REGULAR RHYTHM, +S1, +S2. absent: Murmur - GI/Abdominal Exam GI & Abdominal Exam: Distended, Soft, Normal Bowel Sounds. absent: tenderness - Extremities Exam Extremities Exam: Pedal edema (R>L). absent: Calf Tenderness - Neurological Exam Neurological Exam: Alert, Awake - Skin Skin Exam: Dry, Intact, Normal Color, Warm Assessment and Plan - Assessment and Plan (Free Text) Assessment: Patient is a 67 year old female with history of asthma, arthritis, anemia, and obesity who was originally admitted for right lower extremity cellulitis and UTI. She developed acute hypercapnic respiratory failure secondary to asthma, reactive airway disease and kyphoscoliosis. C. Diff antigen positive, toxin negative. S/P Trach. Patient is alert and awake. Currently afebrile and hemodynamically stable. Plan: Disposition: continue to encourage good nutrition and getting out of bed; will give 1L fluids for elevated creatinine; replaced potassium Hypercapnic Respiratory Failure s/p Trach -Last Chest X-Ray (08/24) showing abnormal opacity at left base and lateral mid left lung -Duonebs 3ml IH [id number] scheduled and PRN -Pulmicort 0.5mg IH [id number] -Robitussin DM PO Q4H PRN -completed antibiotic course of zyvox and aztreonam, as well as vanc -Continue Suctioning Q2H and Chest PT PRN -Speech and Swallow Evaluation recommendation for pureed diet with nectar thick liquids and extra gravy -Aspiration precautions -Pulmonology consulted, all recommendations appreciated -PT/OT Eval/Treat Chronic Abdominal Distention -C. Diff antigen positive, C. diff toxin negative -CT Abdomen/Pelvis with IV Contrast showed fluid-filled, dilated colon, with air fluid levels consistent with rapid small bowel transit, nonspecific enteritis, and small bowel is decompressed -ID consulted, all recommendations appreciated Chronic Normocytic Anemia -H/H stable at this time -Continue Feosol 300mg PO TID -Monitor with daily CBC's -Will consider transfusion if needed HTN -Holding home Zestril as patient had CATE during this hospital visit -Currently well controlled without medication -Monitor with Vital Signs Q4H Hypothyriodism -Continue Synthroid 50mcg daily Hypocalcemia -Continue Caltrate 600mg PO BID Vitamin D Deficiency -Continue weekly Drisdol Difficulty Sleeping -Continue Benadryl PRN GI: Protonix DVT: Heparin <Juan Rodriguez - Last Filed: 09/05/17 13:26> Objective - Vital Signs/Intake and Output Vital Signs (last 24 hours): Temp Pulse Resp BP Pulse Ox 98.2 F 88 18 125/66 97 09/05/17 08:00 09/05/17 08:00 09/05/17 08:00 09/05/17 08:00 09/05/17 08:00 Intake and Output: 09/05/17 09/05/17 06:59 18:59 Intake Total 120 Balance 120 - Medications Medications: Current Medications Acetaminophen (Tylenol 325mg Tab) 650 mg PO Q4H PRN PRN Reason: Pain, moderate (4-7) Albuterol/Ipratropium (Duoneb 3 Mg/0.5 Mg (3 Ml) Ud) 3 ml IH [id number] PRN PRN Reason: SOB Last Admin: 08/31/17 17:27 Dose: 3 ml Albuterol/Ipratropium (Duoneb 3 Mg/0.5 Mg (3 Ml) Ud) 3 ml IH [id number] [facility] Last Admin: 09/05/17 07:43 Dose: 3 ml Budesonide (Pulmicort Respules) 0.5 mg IH [id number] [facility] Last Admin: 09/05/17 07:43 Dose: 0.5 mg Diphenhydramine HCl (Benadryl) 25 mg IVP Q4H PRN PRN Reason: Allergy symptoms Last Admin: 08/28/17 02:22 Dose: 25 mg Ergocalciferol (Drisdol 50,000 Intl Units Cap) 1 cap PO Q7D [facility] Last Admin: 09/02/17 14:34 Dose: 1 cap Ferrous Sulfate (Feosol Liq) 300 mg PO TID [facility] Last Admin: 09/05/17 11:57 Dose: 300 mg Guaifenesin/Codeine Phosphate (Robitussin W/Codeine) 5 ml PO Q4H PRN PRN Reason: Cough and congestion Last Admin: 09/02/17 23:18 Dose: 5 ml Heparin Sodium (Porcine) (Heparin) 5,000 units SC Q12 [facility] PRN Reason: Protocol Last Admin: 09/05/17 11:58 Dose: 5,000 units Potassium Chloride (Potassium Chloride 20 Meq/100 Ml) 20 meq in 100 mls @ 50 mls/hr IVPB ONCE ONE Stop: 09/05/17 14:04 Sodium Chloride (Sodium Chloride 0.9%) 1,000 mls @ 100 mls/hr IV .Q10H [facility] Stop: 09/05/17 22:14 Insulin Human Lispro (Humalog Med) 0 units SC ACHS [facility] PRN Reason: Protocol Last Admin: 09/05/17 12:04 Dose: 1 units Lactic Acid (Lac-Hydrin 12% Cream (140 G)) 0 ea TOP DAILY [facility] Last Admin: 09/05/17 11:59 Dose: 1 cre Levothyroxine Sodium (Synthroid) 50 mcg IVP DAILY [facility] Last Admin: 09/05/17 11:57 Dose: 50 mcg Multivitamins (Thera Tab) 1 tab PO 0800 [facility] Last Admin: 09/05/17 11:59 Dose: 1 tab Nystatin (Nystop Topical Powder) 1 gm TOP DAILY [facility] Last Admin: 09/04/17 09:50 Dose: 1 applic Pantoprazole Sodium (Protonix Inj) 40 mg IVP DAILY [facility] Last Admin: 09/05/17 11:58 Dose: 40 mg Phenol/Menthol (Phenaseptic 1.4% Throat [place]) 0 ml MT Q2H PRN PRN Reason: Sore Throat Last Admin: 08/27/17 17:45 Dose: 1 spr Zinc Sulfate (Zinc Sulfate 220 Mg Cap) 220 mg PO DAILY [facility] Last Admin: 09/05/17 11:59 Dose: 220 mg - Labs Labs: 09/05/17 08:36 09/05/17 08:36 PT 12.5 SECONDS (9.4-12.5) 08/17/17 05:45 INR 1.09 (0.93-1.08) H 08/17/17 05:45 APTT 27.7 Seconds (25.1-36.5) 08/17/17 05:45 Attending/Attestation - Attestation I have personally seen and examined this patient.: Yes I have fully participated in the care of the patient.: Yes I have reviewed all pertinent clinical information, including history, physical exam and plan: Yes Notes (Text): 09/05/17 13:25 67 year old female with past medical history of COPD who initially presented with cellulitis and UTI. Hospital course was complicated with COPD exacerbation, hypercapnic respiratory failure s/p intubation. Patient is now s/p trach, on trach collar. She is s/p antibiotics for pneumonia and steroids taper. She had enteritis on recent CT abd/pelvis. Symptoms improved after rectal tube was placed later discontinued. Continue to monitor anemia closely which is stable. She is on po iron supplementation. She has mild CATE who which she is started on iv fluids. Will continue to monitor. Will replete and repeat potassium. Juan Rodriguez MD Hospitalist.
[2017-09-05] MEDS: Levothyroxine 100 mcg (0.1 mg) Inj IVP SCH (11:57)
[2017-09-05] MEDS: Ferrous Sulfate 300 mg/5 mL Liq UD PO SCH ×3 (11:57→19:06)
[2017-09-05] MEDS: Multivitamin Therapeutic Tab PO SCH (11:59)
[2017-09-05] MEDS: Ammonium Lactate 12% Cream (140 g) TOP SCH (11:59)
[2017-09-05] MEDS: Insulin Lispro (humaLOG) MEDIUM Coverage SC SCH ×3 (12:04→22:59)
[2017-09-05] MEDS ORDERED: Sodium Chloride 0.9% 1,000 ML IV SCH (12:15)
--- NOTE | 2017-09-05 17:56 | CP.PCM.PN ---
Subjective - Date & Time of Evaluation Date of Evaluation: 09/05/17 Time of Evaluation: 17:30 - Subjective Subjective: Infectious Disease Follow Up: September 05, 2017 67 yo female presenting with 3 weeks of RLE ulceration, swelling and leaking from the wound as well as multiple falls in the past 3 weeks. The patient has an extensive medical history of asthma, arthritis, vitamin C deficiency, and possible thyroid disease. Draining RLE ulceration... cellulitis improved/resolved. Multiple chronic medical issues. Still with persistent dry cough. Otherwise stable. Mild erythema and excoriation of the folds in the abdomen and under the breasts. UTI with Klebsiella earlier in hospitalization but had treatment with Cipro that is now completed. Social Issues. The patient had respiratory distress with no improvement from BiPAP. Patient required intubation and ventilation. Transferred to MICU for further care. The patient was started on Zyvox and Aztreonam IV. Patient had a positive C. Diff antigen but negative toxin. Remains ventilated today. Appears stable. Chest X-ray not showing new findings. No leukocytosis. Cultures pending... so far negative. Patient unable to be weaned from ventilator. Supportive care. No fevers or leukocytosis. First two Procalcitonin equivocal. The patient had hypothermia ranging from 93.0 F starting from two days ago. Temperature did rise back up to 99.0 F and has been hovering around 97.7 F. Rechecking procalcitonin... now at 1.49. Difficulty from weaning from the ventilator. Patient is opening eyes and tracking now. Creatinine at 1.3 now. No leukocytosis. Open tracheostomy done 08/17/2017. Failed ventilator weaning during this hospitalization. Patient has completed antibiotic regimens and is off antibiotics at this time. Recently comleted PO Vancomycin. Patient is awake and alert. So far stable. No further diarrhea episodes. Last C. Diff antigen positive. Completed therapy. Can stop isolation. Off antibiotics now. Overall stable. No new issues at this time. Objective - Vital Signs/Intake and Output Vital Signs (last 24 hours): Temp Pulse Resp BP Pulse Ox 98.2 F 88 18 125/66 97 09/05/17 08:00 09/05/17 08:00 09/05/17 08:00 09/05/17 08:00 09/05/17 08:00 Intake and Output: 09/05/17 09/05/17 06:59 18:59 Intake Total 120 360 Balance 120 360 - Medications Medications: Current Medications Acetaminophen (Tylenol 325mg Tab) 650 mg PO Q4H PRN PRN Reason: Pain, moderate (4-7) Albuterol/Ipratropium (Duoneb 3 Mg/0.5 Mg (3 Ml) Ud) 3 ml IH [id number] PRN PRN Reason: SOB Last Admin: 08/31/17 17:27 Dose: 3 ml Albuterol/Ipratropium (Duoneb 3 Mg/0.5 Mg (3 Ml) Ud) 3 ml IH [id number] [facility] Last Admin: 09/05/17 13:46 Dose: 3 ml Budesonide (Pulmicort Respules) 0.5 mg IH [id number] [facility] Last Admin: 09/05/17 07:43 Dose: 0.5 mg Diphenhydramine HCl (Benadryl) 25 mg IVP Q4H PRN PRN Reason: Allergy symptoms Last Admin: 08/28/17 02:22 Dose: 25 mg Ergocalciferol (Drisdol 50,000 Intl Units Cap) 1 cap PO Q7D [facility] Last Admin: 09/02/17 14:34 Dose: 1 cap Ferrous Sulfate (Feosol Liq) 300 mg PO TID [facility] Last Admin: 09/05/17 17:04 Dose: 300 mg Guaifenesin/Codeine Phosphate (Robitussin W/Codeine) 5 ml PO Q4H PRN PRN Reason: Cough and congestion Last Admin: 09/02/17 23:18 Dose: 5 ml Heparin Sodium (Porcine) (Heparin) 5,000 units SC Q12 [facility] PRN Reason: Protocol Last Admin: 09/05/17 11:58 Dose: 5,000 units Sodium Chloride (Sodium Chloride 0.9%) 1,000 mls @ 100 mls/hr IV .Q10H [facility] Stop: 09/05/17 22:14 Insulin Human Lispro (Humalog Med) 0 units SC ACHS [facility] PRN Reason: Protocol Last Admin: 09/05/17 12:04 Dose: 1 units Lactic Acid (Lac-Hydrin 12% Cream (140 G)) 0 ea TOP DAILY [facility] Last Admin: 09/05/17 11:59 Dose: 1 cre Levothyroxine Sodium (Synthroid) 50 mcg IVP DAILY [facility] Last Admin: 09/05/17 11:57 Dose: 50 mcg Multivitamins (Thera Tab) 1 tab PO 0800 [facility] Last Admin: 09/05/17 11:59 Dose: 1 tab Nystatin (Nystop Topical Powder) 1 gm TOP DAILY [facility] Last Admin: 09/04/17 09:50 Dose: 1 applic Pantoprazole Sodium (Protonix Inj) 40 mg IVP DAILY [facility] Last Admin: 09/05/17 11:58 Dose: 40 mg Phenol/Menthol (Phenaseptic 1.4% Throat [place]) 0 ml MT Q2H PRN PRN Reason: Sore Throat Last Admin: 08/27/17 17:45 Dose: 1 spr Zinc Sulfate (Zinc Sulfate 220 Mg Cap) 220 mg PO DAILY [facility] Last Admin: 09/05/17 11:59 Dose: 220 mg - Labs Labs: 09/05/17 08:36 09/05/17 08:36 PT 12.5 SECONDS (9.4-12.5) 08/17/17 05:45 INR 1.09 (0.93-1.08) H 08/17/17 05:45 APTT 27.7 Seconds (25.1-36.5) 08/17/17 05:45 - Constitutional Appears: Non-toxic, No Acute Distress, Chronically Ill - Head Exam Additional comments: trach and vented - Eye Exam Eye Exam: EOMI, PERRL Pupil Exam: NORMAL ACCOMODATION, PERRL - ENT Exam ENT Exam: Mucous Membranes Moist, Normal External Ear Exam, TM's Normal Bilaterally - Neck Exam Neck Exam: Full ROM, Normal Inspection - Respiratory Exam Respiratory Exam: Decreased Breath Sounds, Clear to Ausculation Bilateral, NORMAL BREATHING PATTERN. absent: Rales, Rhonchi, Wheezes - Cardiovascular Exam Cardiovascular Exam: REGULAR RHYTHM, RRR, +S1, +S2 - GI/Abdominal Exam GI & Abdominal Exam: Soft, Normal Bowel Sounds. absent: Distended, Tenderness - Extremities Exam Extremities Exam: absent: Joint Swelling, Pedal Edema - Neurological Exam Neurological Exam: Alert, Awake, CN II-XII Intact, Oriented x3 - Psychiatric Exam Psychiatric exam: Normal Affect, Normal Mood - Skin Skin Exam: Intact, Normal Color Assessment and Plan - Assessment and Plan (Free Text) Assessment: 67 yo female with multiple medical issues with PCN allergy diagnosed as a teenager verified by an Data Communications Analyst. The patient with leukocytosis. Await cultures especially urine cultures. Diabetes and HTN history? Local wound care. Elevated ESR and C-reactive protein. Completed Vancomycin and Aztreonam for antibiotic coverage. UTI with E. coli sensitive to Azactam. Was on Vancomycin for cellulitis IV. For UTI for 5-7 days treatment... completed. Supportive care. Cellulitis appears improved. No new issues. Social issues currently. Homeless at this time. CT scan of chest done. No infiltrates seen. Afebrile the past 24 hours. Mild congestion noted in CT with small pulmonary effusions. No leukocytosis. Slightly elevated procalcitonin (0.66) which is undefined without stronger evidence for pneumonia. When encouraged, she is able to use the incentive spirometer without issues and ambulate with minimal difficulty. Repeat procalcitonin showing 0.71. UTI with Klebsiella. Sensitive to Cipro. Was on Cipro for 5 day course at 500mg PO BID. Completed the antibiotic course. Stable currently. No new issues. Off antibiotics at this time. Multiple social issues. Chronic cough still with periods of hacking. Complained of Vague mild general pains. During this hospitalization, the patient developed respiratory failure and required intubation. Started on Zyvox and Aztreonam IV. Will add Flagyl as well. No leukocytosis. Noted C. Diff with positive antigen but negative toxin. Supportive care. Remains intubated and ventilated. Cultures pending. C. Diff negative to date. No leukocytosis or fever reported. Essentially clear X-ray. Hypothermia episodes most of yesterday to this morning. Antibiotic courses completed. Noted gram positive cocci in most recent urine culture. Still awaiting identification. Supportive care. Patient did improve mentally. Still difficulty in weaning off respirator. She remains intubated. Failed weaning from vent. Tracheotomy performed 08/17/2017. Patient is awake and alert. 08/23/2017 C. Diff testing was positive for antigen and negative for toxin. Supportive care. Completed PO Vancomycin for C. Diff. No new issues. Sitting in chair for a few hours. No new issues at this time. Currently no diarrhea. Can d/c isolation. No new issues at this time. Off all antibiotics at this time. Thank you for allowing me to participate in the care of the patient, we will follow with you
[2017-09-06] MEDS: Albuterol-Ipratrop 3 mg / 0.5 (3 ml) UD IH SCH ×4 (03:38→19:36)
--- NOTE | 2017-09-06 07:42 | CP.PCM.PN ---
<Too Díaz - Last Filed: 09/06/17 14:42> Subjective - Date & Time of Evaluation Date of Evaluation: 09/06/17 Time of Evaluation: 07:39 - Subjective Subjective: Medicine Progress note. Dr. Liriano Pt seen and examined at bedside. Alert and responds to questions appropriately by nodding. Denies any new complaints. No N/V/D. Tolerating diet. No CP/SOB. No Abd pain. Objective - Vital Signs/Intake and Output Vital Signs (last 24 hours): Temp Pulse Resp BP Pulse Ox 99 F 88 18 132/58 L 95 09/05/17 16:00 09/05/17 16:00 09/05/17 16:00 09/05/17 16:00 09/05/17 16:00 - Medications Medications: Current Medications Acetaminophen (Tylenol 325mg Tab) 650 mg PO Q4H PRN PRN Reason: Pain, moderate (4-7) Albuterol/Ipratropium (Duoneb 3 Mg/0.5 Mg (3 Ml) Ud) 3 ml IH [id number] PRN PRN Reason: SOB Last Admin: 08/31/17 17:27 Dose: 3 ml Albuterol/Ipratropium (Duoneb 3 Mg/0.5 Mg (3 Ml) Ud) 3 ml IH [id number] [facility] Last Admin: 09/06/17 03:38 Dose: 3 ml Budesonide (Pulmicort Respules) 0.5 mg IH [id number] [facility] Last Admin: 09/05/17 22:11 Dose: 0.5 mg Diphenhydramine HCl (Benadryl) 25 mg IVP Q4H PRN PRN Reason: Allergy symptoms Last Admin: 08/28/17 02:22 Dose: 25 mg Ergocalciferol (Drisdol 50,000 Intl Units Cap) 1 cap PO Q7D [facility] Last Admin: 09/02/17 14:34 Dose: 1 cap Ferrous Sulfate (Feosol Liq) 300 mg PO TID [facility] Last Admin: 09/05/17 19:06 Dose: 300 mg Guaifenesin/Codeine Phosphate (Robitussin W/Codeine) 5 ml PO Q4H PRN PRN Reason: Cough and congestion Last Admin: 09/02/17 23:18 Dose: 5 ml Heparin Sodium (Porcine) (Heparin) 5,000 units SC Q12 [facility] PRN Reason: Protocol Last Admin: 09/05/17 22:58 Dose: 5,000 units Insulin Human Lispro (Humalog Med) 0 units SC ACHS [facility] PRN Reason: Protocol Last Admin: 09/05/17 22:59 Dose: Not Given Lactic Acid (Lac-Hydrin 12% Cream (140 G)) 0 ea TOP DAILY [facility] Last Admin: 09/05/17 11:59 Dose: 1 cre Levothyroxine Sodium (Synthroid) 50 mcg IVP DAILY [facility] Last Admin: 09/05/17 11:57 Dose: 50 mcg Multivitamins (Thera Tab) 1 tab PO 0800 [facility] Last Admin: 09/05/17 11:59 Dose: 1 tab Nystatin (Nystop Topical Powder) 1 gm TOP DAILY [facility] Last Admin: 09/04/17 09:50 Dose: 1 applic Pantoprazole Sodium (Protonix Inj) 40 mg IVP DAILY [facility] Last Admin: 09/05/17 11:58 Dose: 40 mg Phenol/Menthol (Phenaseptic 1.4% Throat [place]) 0 ml MT Q2H PRN PRN Reason: Sore Throat Last Admin: 08/27/17 17:45 Dose: 1 spr Zinc Sulfate (Zinc Sulfate 220 Mg Cap) 220 mg PO DAILY [facility] Last Admin: 09/05/17 11:59 Dose: 220 mg - Labs Labs: 09/05/17 08:36 09/05/17 08:36 PT 12.5 SECONDS (9.4-12.5) 08/17/17 05:45 INR 1.09 (0.93-1.08) H 08/17/17 05:45 APTT 27.7 Seconds (25.1-36.5) 08/17/17 05:45 - Constitutional Appears: Non-toxic, No Acute Distress, Older Than Stated Age - Head Exam Head Exam: ATRAUMATIC, NORMAL INSPECTION, NORMOCEPHALIC - Eye Exam Eye Exam: EOMI, Normal appearance. absent: Scleral icterus - ENT Exam ENT Exam: Mucous Membranes Moist - Respiratory Exam Respiratory Exam: Clear to Ausculation Bilateral, NORMAL BREATHING PATTERN. absent: Accessory Muscle Use, Wheezes Additional comments: Trach collar in place - Cardiovascular Exam Cardiovascular Exam: RRR. absent: JVD - GI/Abdominal Exam GI & Abdominal Exam: Soft. absent: Distended, Firm, Guarding, Rigid, Tenderness - Extremities Exam Extremities Exam: Normal Inspection. absent: Calf Tenderness - Neurological Exam Neurological Exam: Alert, Awake - Skin Skin Exam: Dry, Intact, Normal Color, Warm Assessment and Plan - Assessment and Plan (Free Text) Assessment: 67yo F with PMHx of asthma, arthritis, anemia, and obesity who was originally admitted for right lower extremity cellulitis and UTI. She developed acute hypercapnic respiratory failure secondary to asthma, reactive airway disease and kyphoscoliosis. C. Diff antigen positive, toxin negative, completed treatment. S/P Trach. Patient is alert and awake. Disposition: continue to encourage good nutrition and getting out of bed; Pending TED placement 1. Hypercapnic Respiratory Failure s/p Trach -Last Chest X-Ray (08/24) showing abnormal opacity at left base and lateral mid left lung -Duonebs 3ml IH [id number] scheduled and PRN -Pulmicort 0.5mg IH [id number] -Robitussin DM PO Q4H PRN -completed antibiotic course -Continue Suctioning Q2H and Chest PT PRN -Speech and Swallow Evaluation recommendation for pureed diet with nectar thick liquids and extra gravy -Aspiration precautions -Pulmonology consulted, all recommendations appreciated -PT/OT Eval/Treat 2. Chronic Abdominal Distention -C. Diff antigen positive, C. diff toxin negative. Treatment completed -CT Abdomen/Pelvis with IV Contrast showed fluid-filled, dilated colon, with air fluid levels consistent with rapid small bowel transit, nonspecific enteritis, and small bowel is decompressed -ID consulted, all recommendations appreciated 3. Chronic Normocytic Anemia -H/H stable at this time -Continue Feosol 300mg PO TID -Monitor with daily CBC's -consider transfusion prn 4. HTN -Holding home Zestril as patient had CATE during this hospital visit -Currently well controlled without medication -Monitor with Vital Signs Q4H 5. Hypothyriodism -Continue Synthroid 50mcg daily 6. Hypocalcemia -Continue Caltrate 600mg PO BID 7. Vitamin D Deficiency -Continue weekly Drisdol 8. Insomnia -Continue Benadryl PRN GI: Protonix DVT: Heparin Further recs as per Heri Díaz PGY1 <Max Liriano - Last Filed: 09/09/17 16:00> Objective - Vital Signs/Intake and Output Vital Signs (last 24 hours): Temp Pulse Resp BP Pulse Ox 98.2 F 94 H 20 134/58 L 94 L 09/09/17 07:00 09/09/17 07:00 09/09/17 07:00 09/09/17 07:00 09/09/17 07:00 Intake and Output: 09/09/17 09/09/17 06:59 18:59 Intake Total 540 480 Balance 540 480 - Medications Medications: Current Medications Acetaminophen (Tylenol 325mg Tab) 650 mg PO Q4H PRN PRN Reason: Pain, moderate (4-7) Last Admin: 09/08/17 15:34 Dose: 650 mg Albuterol/Ipratropium (Duoneb 3 Mg/0.5 Mg (3 Ml) Ud) 3 ml IH [id number] PRN PRN Reason: SOB Last Admin: 09/07/17 05:53 Dose: 3 ml Albuterol/Ipratropium (Duoneb 3 Mg/0.5 Mg (3 Ml) Ud) 3 ml IH [id number] [facility] Last Admin: 09/09/17 13:23 Dose: 3 ml Diphenhydramine HCl (Benadryl) 25 mg IVP Q4H PRN PRN Reason: Allergy symptoms Last Admin: 08/28/17 02:22 Dose: 25 mg Ergocalciferol (Drisdol 50,000 Intl Units Cap) 1 cap PO Q7D [facility] Last Admin: 09/02/17 14:34 Dose: 1 cap Ferrous Sulfate (Feosol Liq) 300 mg PO TID [facility] Last Admin: 09/09/17 13:23 Dose: 300 mg Guaifenesin/Codeine Phosphate (Robitussin W/Codeine) 5 ml PO Q4H PRN PRN Reason: Cough and congestion Last Admin: 09/06/17 17:25 Dose: 5 ml Heparin Sodium (Porcine) (Heparin) 5,000 units SC Q12 [facility] PRN Reason: Protocol Last Admin: 09/09/17 09:37 Dose: 5,000 units Potassium Chloride (Potassium Chloride 10 Meq/100 Ml) 10 meq in 100 mls @ 50 mls/hr IVPB Q2H [facility] Stop: 09/09/17 17:29 Last Admin: 09/09/17 14:02 Dose: 50 mls/hr Insulin Human Lispro (Humalog Med) 0 units SC ACHS [facility] PRN Reason: Protocol Last Admin: 09/09/17 12:02 Dose: Not Given Lactic Acid (Lac-Hydrin 12% Cream (140 G)) 0 ea TOP DAILY [facility] Last Admin: 09/09/17 09:39 Dose: 1 applic Levothyroxine Sodium (Synthroid) 100 mcg PO ACB [facility] Multivitamins (Thera Tab) 1 tab PO 0800 [facility] Last Admin: 09/09/17 09:38 Dose: 1 tab Nystatin (Nystop Topical Powder) 1 gm TOP DAILY [facility] Last Admin: 09/09/17 09:39 Dose: 1 applic Pantoprazole Sodium (Protonix Ec Tab) 40 mg PO ACB [facility] Last Admin: 09/09/17 09:38 Dose: 40 mg Phenol/Menthol (Phenaseptic 1.4% Throat [place]) 0 ml MT Q2H PRN PRN Reason: Sore Throat Last Admin: 08/27/17 17:45 Dose: 1 spr Potassium Chloride (K-Dur 20 Meq Er Tab) 40 meq PO Q4 [facility] Stop: 09/09/17 20:01 Last Admin: 09/09/17 12:12 Dose: 40 meq Zinc Sulfate (Zinc Sulfate 220 Mg Cap) 220 mg PO DAILY [facility] Last Admin: 09/09/17 09:30 Dose: 220 mg - Labs Labs: 09/09/17 07:30 09/09/17 07:30 PT 12.5 SECONDS (9.4-12.5) 08/17/17 05:45 INR 1.09 (0.93-1.08) H 08/17/17 05:45 APTT 27.7 Seconds (25.1-36.5) 08/17/17 05:45 Attending/Attestation - Attestation I have personally seen and examined this patient.: Yes I have fully participated in the care of the patient.: Yes I have reviewed all pertinent clinical information, including history, physical exam and plan: Yes Notes (Text): 09/09/17 15:59 Patient was seen and examined with medical laboratory technicians. Agreed with assessment and plan. Management plan was discussed in detail with patient. Education was provided.Need reinforcement.
[2017-09-06 07:48] LABS: BASO # 0.1 K/mm3 (0.0-2.0); EOS # 0.7 (0.0-0.7); EOS % 6.8 % (1.5-5.0); GRAN # 5.62 (1.4-6.5); GRAN % 57.4 % (50.0-68.0); HEMOGLOBIN 8.8 g/dL (12.0-16.0); LYMPH # 2.6 (1.2-3.4); MEAN CELL VOLUME 86.5 fl (80.0-105.0); MEAN CORPUSCULAR HEMOGLOBIN 27.1 pg (25.0-35.0); MEAN CORPUSCULAR HGB CONC 31.3 g/dl (31.0-37.0); MEAN PLATELET VOLUME 8.7 fl (7.0-11.0); MONO # 0.9 (0.1-0.6); MONO % 8.8 % (1.0-6.0); RBC 3.25 10^6/uL (3.5-6.1); RED CELL DISTRIBUTION WIDTH 20.7 % (11.5-14.5); WHITE BLOOD COUNT 9.8 10^3/ul (4.5-11.0)
[2017-09-06] MEDS: Insulin Lispro (humaLOG) MEDIUM Coverage SC SCH ×4 (08:03→21:15)
[2017-09-06 08:07] LABS: ALB/GLOB RATIO 0.8 (1.1-1.8); ALBUMIN 2.8 g/dL (3.0-4.8); CALCIUM 8.3 mg/dL (8.4-10.5)
[2017-09-06] MEDS: Budesonide 0.5 mg/2 ml Inhal Susp UD IH SCH ×2 (08:07→19:36)
[2017-09-06] MEDS: Ferrous Sulfate 300 mg/5 mL Liq UD PO SCH ×3 (09:13→17:26)
[2017-09-06] MEDS: Multivitamin Therapeutic Tab PO SCH (09:14)
[2017-09-06] MEDS: Levothyroxine 100 mcg (0.1 mg) Inj IVP SCH (09:15)
[2017-09-06] MEDS: Ammonium Lactate 12% Cream (140 g) TOP SCH (09:19)
[2017-09-06] MEDS ORDERED: Potassium Chloride 40 mEq/30 ml LIQ UD PO ONE ×2 (10:51→15:00)
[2017-09-06] MEDS: Nystatin 100,000 Units/gm Topical Pow(15 gm) TOP SCH (12:11)
[2017-09-06] MEDS ORDERED: Magnesium Sulfate 2 GM in Sodium Chloride 0.9% 100 ML IVPB ONE (14:44)
[2017-09-06] MEDS: guaiFENesin-Codeine 100-10mg/5ml Syrup (5 ml) UD PO PRN (17:25)
--- NOTE | 2017-09-06 18:06 | CP.PCM.PN ---
Subjective - Date & Time of Evaluation Date of Evaluation: 09/06/17 Time of Evaluation: 16:00 - Subjective Subjective: Infectious Disease Follow Up: September 06, 2017 67 yo female presenting with 3 weeks of RLE ulceration, swelling and leaking from the wound as well as multiple falls in the past 3 weeks. The patient has an extensive medical history of asthma, arthritis, vitamin C deficiency, and possible thyroid disease. Draining RLE ulceration... cellulitis improved/resolved. Multiple chronic medical issues. Still with persistent dry cough. Otherwise stable. Mild erythema and excoriation of the folds in the abdomen and under the breasts. UTI with Klebsiella earlier in hospitalization but had treatment with Cipro that is now completed. Social Issues. The patient had respiratory distress with no improvement from BiPAP. Patient required intubation and ventilation. Transferred to MICU for further care. The patient was started on Zyvox and Aztreonam IV. Patient had a positive C. Diff antigen but negative toxin. Remains ventilated today. Appears stable. Chest X-ray not showing new findings. No leukocytosis. Cultures pending... so far negative. Patient unable to be weaned from ventilator. Supportive care. No fevers or leukocytosis. First two Procalcitonin equivocal. The patient had hypothermia ranging from 93.0 F starting from two days ago. Temperature did rise back up to 99.0 F and has been hovering around 97.7 F. Rechecking procalcitonin... now at 1.49. Difficulty from weaning from the ventilator. Patient is opening eyes and tracking now. Creatinine at 1.3 now. No leukocytosis. Open tracheostomy done 08/17/2017. Failed ventilator weaning during this hospitalization. Patient has completed antibiotic regimens and is off antibiotics at this time. Recently comleted PO Vancomycin. Patient is awake and alert. So far stable. No further diarrhea episodes. Last C. Diff antigen positive. Completed therapy. Can stop isolation. Off antibiotics now. Overall stable. No new issues at this time. Objective - Vital Signs/Intake and Output Vital Signs (last 24 hours): Temp Pulse Resp BP Pulse Ox 97.9 F 104 H 20 156/91 H 96 09/06/17 16:00 09/06/17 16:00 09/06/17 16:00 09/06/17 16:00 09/06/17 16:00 - Medications Medications: Current Medications Acetaminophen (Tylenol 325mg Tab) 650 mg PO Q4H PRN PRN Reason: Pain, moderate (4-7) Albuterol/Ipratropium (Duoneb 3 Mg/0.5 Mg (3 Ml) Ud) 3 ml IH [id number] PRN PRN Reason: SOB Last Admin: 08/31/17 17:27 Dose: 3 ml Albuterol/Ipratropium (Duoneb 3 Mg/0.5 Mg (3 Ml) Ud) 3 ml IH [id number] [facility] Last Admin: 09/06/17 13:50 Dose: 3 ml Budesonide (Pulmicort Respules) 0.5 mg IH [id number] [facility] Last Admin: 09/06/17 08:07 Dose: 0.5 mg Diphenhydramine HCl (Benadryl) 25 mg IVP Q4H PRN PRN Reason: Allergy symptoms Last Admin: 08/28/17 02:22 Dose: 25 mg Ergocalciferol (Drisdol 50,000 Intl Units Cap) 1 cap PO Q7D [facility] Last Admin: 09/02/17 14:34 Dose: 1 cap Ferrous Sulfate (Feosol Liq) 300 mg PO TID [facility] Last Admin: 09/06/17 17:26 Dose: 300 mg Guaifenesin/Codeine Phosphate (Robitussin W/Codeine) 5 ml PO Q4H PRN PRN Reason: Cough and congestion Last Admin: 09/06/17 17:25 Dose: 5 ml Heparin Sodium (Porcine) (Heparin) 5,000 units SC Q12 [facility] PRN Reason: Protocol Last Admin: 09/06/17 09:14 Dose: 5,000 units Insulin Human Lispro (Humalog Med) 0 units SC ACHS [facility] PRN Reason: Protocol Last Admin: 09/06/17 16:10 Dose: Not Given Lactic Acid (Lac-Hydrin 12% Cream (140 G)) 0 ea TOP DAILY [facility] Last Admin: 09/06/17 09:19 Dose: 1 applic Levothyroxine Sodium (Synthroid) 50 mcg IVP DAILY [facility] Last Admin: 09/06/17 09:15 Dose: 50 mcg Multivitamins (Thera Tab) 1 tab PO 0800 [facility] Last Admin: 09/06/17 09:14 Dose: 1 tab Nystatin (Nystop Topical Powder) 1 gm TOP DAILY [facility] Last Admin: 09/06/17 12:11 Dose: Not Given Pantoprazole Sodium (Protonix Ec Tab) 40 mg PO ACB [facility] Phenol/Menthol (Phenaseptic 1.4% Throat [place]) 0 ml MT Q2H PRN PRN Reason: Sore Throat Last Admin: 08/27/17 17:45 Dose: 1 spr Zinc Sulfate (Zinc Sulfate 220 Mg Cap) 220 mg PO DAILY [facility] Last Admin: 09/06/17 09:14 Dose: 220 mg - Labs Labs: 09/06/17 07:30 09/06/17 07:30 PT 12.5 SECONDS (9.4-12.5) 08/17/17 05:45 INR 1.09 (0.93-1.08) H 08/17/17 05:45 APTT 27.7 Seconds (25.1-36.5) 08/17/17 05:45 - Constitutional Appears: Non-toxic, No Acute Distress, Chronically Ill - Head Exam Additional comments: trach and vented. - Eye Exam Eye Exam: EOMI, PERRL Pupil Exam: NORMAL ACCOMODATION, PERRL - ENT Exam ENT Exam: Mucous Membranes Moist, Normal External Ear Exam, TM's Normal Bilaterally - Neck Exam Neck Exam: Full ROM, Normal Inspection - Respiratory Exam Respiratory Exam: Decreased Breath Sounds, Clear to Ausculation Bilateral, NORMAL BREATHING PATTERN. absent: Rales, Rhonchi, Wheezes - Cardiovascular Exam Cardiovascular Exam: REGULAR RHYTHM, RRR, +S1, +S2 - GI/Abdominal Exam GI & Abdominal Exam: Soft, Normal Bowel Sounds. absent: Distended, Tenderness - Extremities Exam Extremities Exam: absent: Joint Swelling, Pedal Edema - Neurological Exam Neurological Exam: Alert, Awake, CN II-XII Intact, Oriented x3 - Psychiatric Exam Psychiatric exam: Normal Affect, Normal Mood - Skin Skin Exam: Intact, Normal Color Assessment and Plan - Assessment and Plan (Free Text) Assessment: 67 yo female with multiple medical issues with PCN allergy diagnosed as a teenager verified by an Nurse Aide Evaluator. The patient with leukocytosis. Await cultures especially urine cultures. Diabetes and HTN history? Local wound care. Elevated ESR and C-reactive protein. Completed Vancomycin and Aztreonam for antibiotic coverage. UTI with E. coli sensitive to Azactam. Was on Vancomycin for cellulitis IV. For UTI for 5-7 days treatment... completed. Supportive care. Cellulitis appears improved. No new issues. Social issues currently. Homeless at this time. CT scan of chest done. No infiltrates seen. Afebrile the past 24 hours. Mild congestion noted in CT with small pulmonary effusions. No leukocytosis. Slightly elevated procalcitonin (0.66) which is undefined without stronger evidence for pneumonia. When encouraged, she is able to use the incentive spirometer without issues and ambulate with minimal difficulty. Repeat procalcitonin showing 0.71. UTI with Klebsiella. Sensitive to Cipro. Was on Cipro for 5 day course at 500mg PO BID. Completed the antibiotic course. Stable currently. No new issues. Off antibiotics at this time. Multiple social issues. Chronic cough still with periods of hacking. Complained of Vague mild general pains. During this hospitalization, the patient developed respiratory failure and required intubation. Started on Zyvox and Aztreonam IV. Will add Flagyl as well. No leukocytosis. Noted C. Diff with positive antigen but negative toxin. Supportive care. Remains intubated and ventilated. Cultures pending. C. Diff negative to date. No leukocytosis or fever reported. Essentially clear X-ray. Hypothermia episodes most of yesterday to this morning. Antibiotic courses completed. Noted gram positive cocci in most recent urine culture. Still awaiting identification. Supportive care. Patient did improve mentally. Still difficulty in weaning off respirator. She remains intubated. Failed weaning from vent. Tracheotomy performed 08/17/2017. Patient is awake and alert. 08/23/2017 C. Diff testing was positive for antigen and negative for toxin. Supportive care. Completed PO Vancomycin for C. Diff. No new issues. Sitting in chair for a few hours. No new issues at this time. Currently no diarrhea. Can d/c isolation. No new issues at this time. Off all antibiotics at this time. Thank you for allowing me to participate in the care of the patient, we will follow with you
[2017-09-07] MEDS: Albuterol-Ipratrop 3 mg / 0.5 (3 ml) UD IH SCH ×4 (01:03→18:59)
[2017-09-07] MEDS: Albuterol-Ipratrop 3 mg / 0.5 (3 ml) UD IH PRN (05:53)
[2017-09-07 07:34] LABS: BASO # 0.15 K/mm3 (0.0-2.0); BASO % 1.2 % (0.0-3.0); EOS # 0.6 (0.0-0.7); EOS % 4.5 % (1.5-5.0); GRAN # 9.37 (1.4-6.5); GRAN % 75.1 % (50.0-68.0); HEMOGLOBIN 9.5 g/dL (12.0-16.0); LYMPH # 1.4 (1.2-3.4); LYMPH % 11.2 % (22.0-35.0); MEAN CELL VOLUME 87.5 fl (80.0-105.0); MEAN CORPUSCULAR HEMOGLOBIN 26.9 pg (25.0-35.0); MEAN CORPUSCULAR HGB CONC 30.7 g/dl (31.0-37.0); MEAN PLATELET VOLUME 8.7 fl (7.0-11.0); RBC 3.53 10^6/uL (3.5-6.1); RED CELL DISTRIBUTION WIDTH 20.9 % (11.5-14.5); WHITE BLOOD COUNT 12.5 10^3/ul (4.5-11.0)
[2017-09-07] MEDS: Insulin Lispro (humaLOG) MEDIUM Coverage SC SCH ×4 (07:40→22:10)
[2017-09-07] MEDS: Pantoprazole 40 mg EC Tab PO SCH (08:03)
[2017-09-07] MEDS: Multivitamin Therapeutic Tab PO SCH (08:04)
[2017-09-07 08:08] LABS: CALCIUM 8.4 mg/dL (8.4-10.5); MAGNESIUM 1.9 mg/dL (1.7-2.2)
[2017-09-07] MEDS: Nystatin 100,000 Units/gm Topical Pow(15 gm) TOP SCH (10:00)
[2017-09-07] MEDS: Levothyroxine 100 mcg (0.1 mg) Inj IVP SCH (11:05)
[2017-09-07] MEDS: Ferrous Sulfate 300 mg/5 mL Liq UD PO SCH ×3 (11:06→17:50)
[2017-09-07] MEDS: Ammonium Lactate 12% Cream (140 g) TOP SCH (11:41)
--- NOTE | 2017-09-07 12:38 | CP.PCM.PN ---
<Wendi Borja - Last Filed: 09/07/17 12:34> Subjective - Date & Time of Evaluation Date of Evaluation: 09/07/17 Time of Evaluation: 12:34 - Subjective Subjective: Patient seen and examined at bedside. Patient resting comfortably in bed with no new complaints at this time. Patient says she still is not eating well. Again , I encouraged good nutrition and PO intake. Denies chest pain, SOB, Abdominal pain, n/v/d, leg pain. Objective - Vital Signs/Intake and Output Vital Signs (last 24 hours): Temp Pulse Resp BP Pulse Ox 982 F H 85 19 139/78 95 09/07/17 00:00 09/07/17 00:00 09/07/17 00:00 09/07/17 00:00 09/07/17 06:00 Intake and Output: 09/07/17 09/07/17 06:59 18:59 Intake Total 480 Balance 480 - Medications Medications: Current Medications Acetaminophen (Tylenol 325mg Tab) 650 mg PO Q4H PRN PRN Reason: Pain, moderate (4-7) Albuterol/Ipratropium (Duoneb 3 Mg/0.5 Mg (3 Ml) Ud) 3 ml IH [id number] PRN PRN Reason: SOB Last Admin: 09/07/17 05:53 Dose: 3 ml Albuterol/Ipratropium (Duoneb 3 Mg/0.5 Mg (3 Ml) Ud) 3 ml IH [id number] [facility] Last Admin: 09/07/17 07:49 Dose: 3 ml Diphenhydramine HCl (Benadryl) 25 mg IVP Q4H PRN PRN Reason: Allergy symptoms Last Admin: 08/28/17 02:22 Dose: 25 mg Ergocalciferol (Drisdol 50,000 Intl Units Cap) 1 cap PO Q7D [facility] Last Admin: 09/02/17 14:34 Dose: 1 cap Ferrous Sulfate (Feosol Liq) 300 mg PO TID [facility] Last Admin: 09/06/17 17:26 Dose: 300 mg Guaifenesin/Codeine Phosphate (Robitussin W/Codeine) 5 ml PO Q4H PRN PRN Reason: Cough and congestion Last Admin: 09/06/17 17:25 Dose: 5 ml Heparin Sodium (Porcine) (Heparin) 5,000 units SC Q12 [facility] PRN Reason: Protocol Last Admin: 09/06/17 21:13 Dose: 5,000 units Insulin Human Lispro (Humalog Med) 0 units SC ACHS [facility] PRN Reason: Protocol Last Admin: 09/06/17 21:15 Dose: Not Given Lactic Acid (Lac-Hydrin 12% Cream (140 G)) 0 ea TOP DAILY [facility] Last Admin: 09/06/17 09:19 Dose: 1 applic Levothyroxine Sodium (Synthroid) 50 mcg IVP DAILY [facility] Last Admin: 09/06/17 09:15 Dose: 50 mcg Multivitamins (Thera Tab) 1 tab PO 0800 [facility] Last Admin: 09/07/17 08:04 Dose: 1 tab Nystatin (Nystop Topical Powder) 1 gm TOP DAILY [facility] Last Admin: 09/06/17 12:11 Dose: Not Given Pantoprazole Sodium (Protonix Ec Tab) 40 mg PO ACB [facility] Last Admin: 09/07/17 08:03 Dose: 40 mg Phenol/Menthol (Phenaseptic 1.4% Throat [place]) 0 ml MT Q2H PRN PRN Reason: Sore Throat Last Admin: 08/27/17 17:45 Dose: 1 spr Zinc Sulfate (Zinc Sulfate 220 Mg Cap) 220 mg PO DAILY [facility] Last Admin: 09/06/17 09:14 Dose: 220 mg - Labs Labs: 09/07/17 07:00 09/07/17 07:00 PT 12.5 SECONDS (9.4-12.5) 08/17/17 05:45 INR 1.09 (0.93-1.08) H 08/17/17 05:45 APTT 27.7 Seconds (25.1-36.5) 08/17/17 05:45 - Additional Findings Additional findings: - Constitutional Appears: Non-toxic, No Acute Distress, Chronically Ill - Head Exam Head Exam: ATRAUMATIC, NORMAL INSPECTION, NORMOCEPHALIC - Eye Exam Eye Exam: EOMI, Normal appearance - ENT Exam Additional comments: trach in place - Respiratory Exam Respiratory Exam: Clear to Ausculation Bilateral. absent: Rales, Rhonchi, Wheezes - Cardiovascular Exam Cardiovascular Exam: Tachycardia, REGULAR RHYTHM, +S1, +S2. absent: Murmur - GI/Abdominal Exam GI & Abdominal Exam: Distended, Soft, Normal Bowel Sounds. absent: tenderness - Extremities Exam Extremities Exam: Pedal edema (R>L). absent: Calf Tenderness - Neurological Exam Neurological Exam: Alert, Awake - Skin Skin Exam: Dry, Intact, Normal Color, Warm Assessment and Plan - Assessment and Plan (Free Text) Assessment: Patient is a 67 year old female with history of asthma, arthritis, anemia, and obesity who was originally admitted for right lower extremity cellulitis and UTI. She developed acute hypercapnic respiratory failure secondary to asthma, reactive airway disease and kyphoscoliosis. C. Diff antigen positive, toxin negative. S/P Trach. Patient is alert and awake. Currently afebrile and hemodynamically stable. Plan: Disposition: continue to encourage good nutrition and getting out of bed; pending TED placement Hypercapnic Respiratory Failure s/p Trach -Last Chest X-Ray (08/24) showing abnormal opacity at left base and lateral mid left lung -Duonebs 3ml IH [id number] scheduled and PRN -Pulmicort 0.5mg IH [id number] -Robitussin DM PO Q4H PRN -completed antibiotic course of zyvox and aztreonam, as well as vanc -Continue Suctioning Q2H and Chest PT PRN -Speech and Swallow Evaluation recommendation for pureed diet with nectar thick liquids and extra gravy -Aspiration precautions -Pulmonology consulted, all recommendations appreciated -PT/OT Eval/Treat Chronic Abdominal Distention -C. Diff antigen positive, C. diff toxin negative -CT Abdomen/Pelvis with IV Contrast showed fluid-filled, dilated colon, with air fluid levels consistent with rapid small bowel transit, nonspecific enteritis, and small bowel is decompressed -ID consulted, all recommendations appreciated Chronic Normocytic Anemia -H/H stable at this time -Continue Feosol 300mg PO TID -Monitor with daily CBC's -Will consider transfusion if needed HTN -Holding home Zestril as patient had CATE during this hospital visit -Currently well controlled without medication -Monitor with Vital Signs Q4H Hypothyriodism -Continue Synthroid 50mcg daily Hypocalcemia -Continue Caltrate 600mg PO BID Vitamin D Deficiency -Continue weekly Drisdol Difficulty Sleeping -Continue Benadryl PRN GI: Protonix DVT: Heparin <Max Liriano - Last Filed: 09/09/17 16:07> Objective - Vital Signs/Intake and Output Vital Signs (last 24 hours): Temp Pulse Resp BP Pulse Ox 98.2 F 94 H 20 134/58 L 94 L 09/09/17 07:00 09/09/17 07:00 09/09/17 07:00 09/09/17 07:00 09/09/17 07:00 Intake and Output: 09/09/17 09/09/17 06:59 18:59 Intake Total 540 480 Balance 540 480 - Medications Medications: Current Medications Acetaminophen (Tylenol 325mg Tab) 650 mg PO Q4H PRN PRN Reason: Pain, moderate (4-7) Last Admin: 09/08/17 15:34 Dose: 650 mg Albuterol/Ipratropium (Duoneb 3 Mg/0.5 Mg (3 Ml) Ud) 3 ml IH [id number] PRN PRN Reason: SOB Last Admin: 09/07/17 05:53 Dose: 3 ml Albuterol/Ipratropium (Duoneb 3 Mg/0.5 Mg (3 Ml) Ud) 3 ml IH [id number] [facility] Last Admin: 09/09/17 13:23 Dose: 3 ml Diphenhydramine HCl (Benadryl) 25 mg IVP Q4H PRN PRN Reason: Allergy symptoms Last Admin: 08/28/17 02:22 Dose: 25 mg Ergocalciferol (Drisdol 50,000 Intl Units Cap) 1 cap PO Q7D [facility] Last Admin: 09/02/17 14:34 Dose: 1 cap Ferrous Sulfate (Feosol Liq) 300 mg PO TID [facility] Last Admin: 09/09/17 13:23 Dose: 300 mg Guaifenesin/Codeine Phosphate (Robitussin W/Codeine) 5 ml PO Q4H PRN PRN Reason: Cough and congestion Last Admin: 09/06/17 17:25 Dose: 5 ml Heparin Sodium (Porcine) (Heparin) 5,000 units SC Q12 [facility] PRN Reason: Protocol Last Admin: 09/09/17 09:37 Dose: 5,000 units Potassium Chloride (Potassium Chloride 10 Meq/100 Ml) 10 meq in 100 mls @ 50 mls/hr IVPB Q2H [facility] Stop: 09/09/17 17:29 Last Admin: 09/09/17 14:02 Dose: 50 mls/hr Insulin Human Lispro (Humalog Med) 0 units SC ACHS [facility] PRN Reason: Protocol Last Admin: 09/09/17 12:02 Dose: Not Given Lactic Acid (Lac-Hydrin 12% Cream (140 G)) 0 ea TOP DAILY [facility] Last Admin: 09/09/17 09:39 Dose: 1 applic Levothyroxine Sodium (Synthroid) 100 mcg PO ACB [facility] Multivitamins (Thera Tab) 1 tab PO 0800 [facility] Last Admin: 09/09/17 09:38 Dose: 1 tab Nystatin (Nystop Topical Powder) 1 gm TOP DAILY [facility] Last Admin: 09/09/17 09:39 Dose: 1 applic Pantoprazole Sodium (Protonix Ec Tab) 40 mg PO ACB [facility] Last Admin: 09/09/17 09:38 Dose: 40 mg Phenol/Menthol (Phenaseptic 1.4% Throat [place]) 0 ml MT Q2H PRN PRN Reason: Sore Throat Last Admin: 08/27/17 17:45 Dose: 1 spr Potassium Chloride (K-Dur 20 Meq Er Tab) 40 meq PO Q4 [facility] Stop: 09/09/17 20:01 Last Admin: 09/09/17 12:12 Dose: 40 meq Zinc Sulfate (Zinc Sulfate 220 Mg Cap) 220 mg PO DAILY [facility] Last Admin: 09/09/17 09:30 Dose: 220 mg - Labs Labs: 09/09/17 07:30 09/09/17 07:30 PT 12.5 SECONDS (9.4-12.5) 08/17/17 05:45 INR 1.09 (0.93-1.08) H 08/17/17 05:45 APTT 27.7 Seconds (25.1-36.5) 08/17/17 05:45 Attending/Attestation - Attestation I have personally seen and examined this patient.: Yes I have fully participated in the care of the patient.: Yes I have reviewed all pertinent clinical information, including history, physical exam and plan: Yes Notes (Text): 09/09/17 16:01 Patient was seen and examined with senior medical technologist. Agreed with assessment and plan. 67 year old female with past medical history of COPD who initially presented with cellulitis and UTI. Hospital course was complicated with COPD exacerbation, hypercapnic respiratory failure ,SP intubation. Patient is now s/p trach, on trach collar. She is s/p antibiotics for pneumonia and steroids for COPD exacerbation She had enteritis on recent CT abd/pelvis. Symptoms improved after rectal tube was placed later discontinued. Respiratory status is stable.Oral intake is poor, need assistance in feeding. 09/09/17 16:07
--- NOTE | 2017-09-07 18:09 | CP.PCM.PN ---
Subjective - Date & Time of Evaluation Date of Evaluation: 09/07/17 Time of Evaluation: 17:45 - Subjective Subjective: Infectious Disease Follow Up: September 07, 2017 67 yo female presenting with 3 weeks of RLE ulceration, swelling and leaking from the wound as well as multiple falls in the past 3 weeks. The patient has an extensive medical history of asthma, arthritis, vitamin C deficiency, and possible thyroid disease. Draining RLE ulceration... cellulitis improved/resolved. Multiple chronic medical issues. Still with persistent dry cough. Otherwise stable. Mild erythema and excoriation of the folds in the abdomen and under the breasts. UTI with Klebsiella earlier in hospitalization but had treatment with Cipro that is now completed. Social Issues. The patient had respiratory distress with no improvement from BiPAP. Patient required intubation and ventilation. Transferred to MICU for further care. The patient was started on Zyvox and Aztreonam IV. Patient had a positive C. Diff antigen but negative toxin. Remains ventilated today. Appears stable. Chest X-ray not showing new findings. No leukocytosis. Cultures pending... so far negative. Patient unable to be weaned from ventilator. Supportive care. No fevers or leukocytosis. First two Procalcitonin equivocal. The patient had hypothermia ranging from 93.0 F starting from two days ago. Temperature did rise back up to 99.0 F and has been hovering around 97.7 F. Creatinine at 1.2 now. No leukocytosis. Open tracheostomy done 08/17/2017. Failed ventilator weaning during this hospitalization. Patient has completed antibiotic regimens and is off antibiotics at this time. Recently comleted PO Vancomycin. Patient is awake and alert. So far stable. No further diarrhea episodes. Last C. Diff antigen positive. Completed therapy. Can stop isolation. Off antibiotics now. Overall stable. No new issues at this time. Objective - Vital Signs/Intake and Output Vital Signs (last 24 hours): Temp Pulse Resp BP Pulse Ox 97.8 F 85 20 134/73 96 09/07/17 15:51 09/07/17 15:51 09/07/17 15:51 09/07/17 15:51 09/07/17 15:51 Intake and Output: 09/07/17 09/07/17 06:59 18:59 Intake Total 480 Balance 480 - Medications Medications: Current Medications Acetaminophen (Tylenol 325mg Tab) 650 mg PO Q4H PRN PRN Reason: Pain, moderate (4-7) Albuterol/Ipratropium (Duoneb 3 Mg/0.5 Mg (3 Ml) Ud) 3 ml IH [id number] PRN PRN Reason: SOB Last Admin: 09/07/17 05:53 Dose: 3 ml Albuterol/Ipratropium (Duoneb 3 Mg/0.5 Mg (3 Ml) Ud) 3 ml IH [id number] [facility] Last Admin: 09/07/17 13:17 Dose: 3 ml Diphenhydramine HCl (Benadryl) 25 mg IVP Q4H PRN PRN Reason: Allergy symptoms Last Admin: 08/28/17 02:22 Dose: 25 mg Ergocalciferol (Drisdol 50,000 Intl Units Cap) 1 cap PO Q7D [facility] Last Admin: 09/02/17 14:34 Dose: 1 cap Ferrous Sulfate (Feosol Liq) 300 mg PO TID [facility] Last Admin: 09/07/17 17:50 Dose: 300 mg Guaifenesin/Codeine Phosphate (Robitussin W/Codeine) 5 ml PO Q4H PRN PRN Reason: Cough and congestion Last Admin: 09/06/17 17:25 Dose: 5 ml Heparin Sodium (Porcine) (Heparin) 5,000 units SC Q12 [facility] PRN Reason: Protocol Last Admin: 09/07/17 11:05 Dose: 5,000 units Insulin Human Lispro (Humalog Med) 0 units SC ACHS [facility] PRN Reason: Protocol Last Admin: 09/07/17 16:51 Dose: Not Given Lactic Acid (Lac-Hydrin 12% Cream (140 G)) 0 ea TOP DAILY [facility] Last Admin: 09/07/17 11:41 Dose: 1 applic Levothyroxine Sodium (Synthroid) 50 mcg IVP DAILY [facility] Last Admin: 09/07/17 11:05 Dose: 50 mcg Multivitamins (Thera Tab) 1 tab PO 0800 [facility] Last Admin: 09/07/17 08:04 Dose: 1 tab Nystatin (Nystop Topical Powder) 1 gm TOP DAILY [facility] Last Admin: 09/07/17 10:00 Dose: 1 applic Pantoprazole Sodium (Protonix Ec Tab) 40 mg PO ACB [facility] Last Admin: 02/06/18 08:03 Dose: 40 mg Phenol/Menthol (Phenaseptic 1.4% Throat [place]) 0 ml MT Q2H PRN PRN Reason: Sore Throat Last Admin: 08/27/17 17:45 Dose: 1 spr Zinc Sulfate (Zinc Sulfate 220 Mg Cap) 220 mg PO DAILY [facility] Last Admin: 09/07/17 11:05 Dose: 220 mg - Labs Labs: 09/07/17 07:00 09/07/17 07:00 PT 12.5 SECONDS (9.4-12.5) 08/17/17 05:45 INR 1.09 (0.93-1.08) H 08/17/17 05:45 APTT 27.7 Seconds (25.1-36.5) 08/17/17 05:45 - Constitutional Appears: Non-toxic, No Acute Distress, Chronically Ill - Head Exam Additional comments: trach and vented. - Eye Exam Eye Exam: EOMI, PERRL Pupil Exam: NORMAL ACCOMODATION, PERRL - ENT Exam ENT Exam: Mucous Membranes Moist, Normal External Ear Exam, TM's Normal Bilaterally - Neck Exam Neck Exam: Full ROM, Normal Inspection - Respiratory Exam Respiratory Exam: Decreased Breath Sounds, NORMAL BREATHING PATTERN. absent: Rales, Rhonchi, Wheezes - Cardiovascular Exam Cardiovascular Exam: REGULAR RHYTHM, RRR, +S1, +S2 - GI/Abdominal Exam GI & Abdominal Exam: Soft, Normal Bowel Sounds. absent: Distended, Tenderness - Extremities Exam Extremities Exam: absent: Joint Swelling, Pedal Edema - Neurological Exam Neurological Exam: Alert, Awake, CN II-XII Intact, Oriented x3 - Psychiatric Exam Psychiatric exam: Normal Affect, Normal Mood - Skin Skin Exam: Intact, Normal Color Assessment and Plan - Assessment and Plan (Free Text) Assessment: 67 yo female with multiple medical issues with PCN allergy diagnosed as a teenager verified by an Endoscopy Rn. The patient with leukocytosis. Await cultures especially urine cultures. Diabetes and HTN history? Local wound care. Elevated ESR and C-reactive protein. Completed Vancomycin and Aztreonam for antibiotic coverage. UTI with E. coli sensitive to Azactam. Was on Vancomycin for cellulitis IV. For UTI for 5-7 days treatment... completed. Supportive care. Cellulitis appears improved. No new issues. Social issues currently. Homeless at this time. CT scan of chest done. No infiltrates seen. Afebrile the past 24 hours. Mild congestion noted in CT with small pulmonary effusions. No leukocytosis. Slightly elevated procalcitonin (0.66) which is undefined without stronger evidence for pneumonia. When encouraged, she is able to use the incentive spirometer without issues and ambulate with minimal difficulty. Repeat procalcitonin showing 0.71. UTI with Klebsiella. Sensitive to Cipro. Was on Cipro for 5 day course at 500mg PO BID. Completed the antibiotic course. Stable currently. No new issues. Off antibiotics at this time. Multiple social issues. Chronic cough still with periods of hacking. Complained of Vague mild general pains. During this hospitalization, the patient developed respiratory failure and required intubation. Started on Zyvox and Aztreonam IV. Will add Flagyl as well. No leukocytosis. Noted C. Diff with positive antigen but negative toxin. Supportive care. Remains intubated and ventilated. Cultures pending. C. Diff negative to date. No leukocytosis or fever reported. Essentially clear X-ray. Hypothermia episodes most of yesterday to this morning. Antibiotic courses completed. Noted gram positive cocci in most recent urine culture. Still awaiting identification. Supportive care. Patient did improve mentally. Still difficulty in weaning off respirator. She remains intubated. Failed weaning from vent. Tracheotomy performed 08/17/2017. Patient is awake and alert. 08/23/2017 C. Diff testing was positive for antigen and negative for toxin. Supportive care. Completed PO Vancomycin for C. Diff. No new issues. Sitting in chair for a few hours. No new issues at this time. Currently no diarrhea. Can d/c isolation. No new issues at this time. Off all antibiotics at this time. Thank you for allowing me to participate in the care of the patient, we will follow with you
[2017-09-08] MEDS: Albuterol-Ipratrop 3 mg / 0.5 (3 ml) UD IH SCH ×4 (01:25→19:49)
[2017-09-08 07:42] LABS: BASO # 0.1 K/mm3 (0.0-2.0); EOS # 0.7 (0.0-0.7); GRAN # 6.43 (1.4-6.5); GRAN % 61.7 % (50.0-68.0); HEMOGLOBIN 9.1 g/dL (12.0-16.0); LYMPH # 2.2 (1.2-3.4); LYMPH % 20.6 % (22.0-35.0); MEAN CELL VOLUME 88.1 fl (80.0-105.0); MEAN CORPUSCULAR HEMOGLOBIN 26.5 pg (25.0-35.0); MEAN PLATELET VOLUME 8.9 fl (7.0-11.0); MONO % 9.7 % (1.0-6.0); RBC 3.44 10^6/uL (3.5-6.1); RED CELL DISTRIBUTION WIDTH 20.5 % (11.5-14.5); WHITE BLOOD COUNT 10.4 10^3/ul (4.5-11.0)
[2017-09-08 08:03] LABS: CALCIUM 8.4 mg/dL (8.4-10.5)
[2017-09-08] MEDS: Insulin Lispro (humaLOG) MEDIUM Coverage SC SCH ×4 (08:56→22:05)
[2017-09-08] MEDS: Ferrous Sulfate 300 mg/5 mL Liq UD PO SCH ×3 (10:07→17:28)
[2017-09-08] MEDS: Multivitamin Therapeutic Tab PO SCH (10:08)
[2017-09-08] MEDS: Pantoprazole 40 mg EC Tab PO SCH (10:08)
[2017-09-08] MEDS: Ammonium Lactate 12% Cream (140 g) TOP SCH (10:09)
[2017-09-08] MEDS: Nystatin 100,000 Units/gm Topical Pow(15 gm) TOP SCH (10:09)
[2017-09-08] MEDS: Levothyroxine 100 mcg (0.1 mg) Inj IVP SCH (10:10)
[2017-09-08] MEDS ORDERED: Potassium Chloride 20 mEq ER Tab PO ONE (11:38)
--- NOTE | 2017-09-08 13:39 | CP.PCM.PN ---
<Wendi Borja - Last Filed: 09/08/17 13:36> Subjective - Date & Time of Evaluation Date of Evaluation: 09/08/17 Time of Evaluation: 07:45 - Subjective Subjective: Patient seen and examined at bedside. No acute events overnight per nursing. Patient resting comfortably in bed with no new complaints at this time. Patient still not eating well. Again, I encouraged good nutrition and PO intake. Denies chest pain, SOB, Abdominal pain, n/v/d, leg pain. Objective - Vital Signs/Intake and Output Vital Signs (last 24 hours): Temp Pulse Resp BP Pulse Ox 98.3 F 84 20 146/75 95 09/08/17 07:00 09/08/17 07:00 09/08/17 07:00 09/08/17 07:00 09/08/17 07:00 Intake and Output: 09/08/17 09/08/17 06:59 18:59 Intake Total 540 Balance 540 - Medications Medications: Current Medications Acetaminophen (Tylenol 325mg Tab) 650 mg PO Q4H PRN PRN Reason: Pain, moderate (4-7) Albuterol/Ipratropium (Duoneb 3 Mg/0.5 Mg (3 Ml) Ud) 3 ml IH [id number] PRN PRN Reason: SOB Last Admin: 09/07/17 05:53 Dose: 3 ml Albuterol/Ipratropium (Duoneb 3 Mg/0.5 Mg (3 Ml) Ud) 3 ml IH [id number] [facility] Last Admin: 09/08/17 07:36 Dose: 3 ml Diphenhydramine HCl (Benadryl) 25 mg IVP Q4H PRN PRN Reason: Allergy symptoms Last Admin: 08/28/17 02:22 Dose: 25 mg Ergocalciferol (Drisdol 50,000 Intl Units Cap) 1 cap PO Q7D [facility] Last Admin: 09/02/17 14:34 Dose: 1 cap Ferrous Sulfate (Feosol Liq) 300 mg PO TID [facility] Last Admin: 09/08/17 10:07 Dose: 300 mg Guaifenesin/Codeine Phosphate (Robitussin W/Codeine) 5 ml PO Q4H PRN PRN Reason: Cough and congestion Last Admin: 09/06/17 17:25 Dose: 5 ml Heparin Sodium (Porcine) (Heparin) 5,000 units SC Q12 [facility] PRN Reason: Protocol Last Admin: 09/08/17 10:08 Dose: 5,000 units Potassium Chloride (Potassium Chloride 20 Meq/100 Ml) 20 meq in 100 mls @ 50 mls/hr IVPB ONCE ONE Stop: 09/08/17 13:37 Last Admin: 09/08/17 12:30 Dose: 50 mls/hr Insulin Human Lispro (Humalog Med) 0 units SC ACHS [facility] PRN Reason: Protocol Last Admin: 09/08/17 11:50 Dose: Not Given Lactic Acid (Lac-Hydrin 12% Cream (140 G)) 0 ea TOP DAILY [facility] Last Admin: 09/08/17 10:09 Dose: 1 applic Levothyroxine Sodium (Synthroid) 50 mcg IVP DAILY [facility] Last Admin: 09/08/17 10:10 Dose: 50 mcg Multivitamins (Thera Tab) 1 tab PO 0800 [facility] Last Admin: 09/08/17 10:08 Dose: 1 tab Nystatin (Nystop Topical Powder) 1 gm TOP DAILY [facility] Last Admin: 09/08/17 10:09 Dose: 1 applic Pantoprazole Sodium (Protonix Ec Tab) 40 mg PO ACB [facility] Last Admin: 09/08/17 10:08 Dose: 40 mg Phenol/Menthol (Phenaseptic 1.4% Throat [place]) 0 ml MT Q2H PRN PRN Reason: Sore Throat Last Admin: 08/27/17 17:45 Dose: 1 spr Zinc Sulfate (Zinc Sulfate 220 Mg Cap) 220 mg PO DAILY [facility] Last Admin: 09/08/17 10:11 Dose: 220 mg - Labs Labs: 09/08/17 07:20 09/08/17 07:20 PT 12.5 SECONDS (9.4-12.5) 08/17/17 05:45 INR 1.09 (0.93-1.08) H 08/17/17 05:45 APTT 27.7 Seconds (25.1-36.5) 08/17/17 05:45 - Additional Findings Additional findings: - Constitutional Appears: Non-toxic, No Acute Distress, Chronically Ill - Head Exam Head Exam: ATRAUMATIC, NORMAL INSPECTION, NORMOCEPHALIC - Eye Exam Eye Exam: EOMI, Normal appearance - ENT Exam Additional comments: trach in place - Respiratory Exam Respiratory Exam: Clear to Ausculation Bilateral. absent: Rales, Rhonchi, Wheezes - Cardiovascular Exam Cardiovascular Exam: Tachycardia, REGULAR RHYTHM, +S1, +S2. absent: Murmur - GI/Abdominal Exam GI & Abdominal Exam: Distended, Soft, Normal Bowel Sounds. absent: tenderness - Extremities Exam Extremities Exam: Pedal edema (R>L). absent: Calf Tenderness - Neurological Exam Neurological Exam: Alert, Awake - Skin Skin Exam: Dry, Intact, Normal Color, Warm Assessment and Plan - Assessment and Plan (Free Text) Assessment: Patient is a 67 year old female with history of asthma, arthritis, anemia, and obesity who was originally admitted for right lower extremity cellulitis and UTI. She developed acute hypercapnic respiratory failure secondary to asthma, reactive airway disease and kyphoscoliosis. C. Diff antigen positive, toxin negative. S/P Trach. Patient is alert and awake. Currently afebrile and hemodynamically stable. Plan: Disposition: continue to encourage good nutrition and getting out of bed; will need assistance with feedings; pending TED placement Hypercapnic Respiratory Failure s/p Trach -Last Chest X-Ray (08/24) showing abnormal opacity at left base and lateral mid left lung -Duonebs 3ml IH [id number] scheduled and PRN -Pulmicort 0.5mg IH [id number] -Robitussin DM PO Q4H PRN -completed antibiotic course of zyvox and aztreonam, as well as vanc -Continue Suctioning Q2H and Chest PT PRN -Speech and Swallow Evaluation recommendation for pureed diet with nectar thick liquids and extra gravy -Aspiration precautions -Pulmonology consulted, all recommendations appreciated -PT/OT Eval/Treat Chronic Abdominal Distention -C. Diff antigen positive, C. diff toxin negative -CT Abdomen/Pelvis with IV Contrast showed fluid-filled, dilated colon, with air fluid levels consistent with rapid small bowel transit, nonspecific enteritis, and small bowel is decompressed -ID consulted, all recommendations appreciated Chronic Normocytic Anemia -H/H stable at this time -Continue Feosol 300mg PO TID -Monitor with daily CBC's -Will consider transfusion if needed HTN -Holding home Zestril as patient had CATE during this hospital visit -Currently well controlled without medication -Monitor with Vital Signs Q4H Hypothyriodism -Continue Synthroid 50mcg daily Hypocalcemia -Continue Caltrate 600mg PO BID Vitamin D Deficiency -Continue weekly Drisdol Difficulty Sleeping -Continue Benadryl PRN GI: Protonix DVT: Heparin <Max Liriano - Last Filed: 09/09/17 16:09> Objective - Vital Signs/Intake and Output Vital Signs (last 24 hours): Temp Pulse Resp BP Pulse Ox 98.2 F 94 H 20 134/58 L 94 L 09/09/17 07:00 09/09/17 07:00 09/09/17 07:00 09/09/17 07:00 09/09/17 07:00 Intake and Output: 09/09/17 09/09/17 06:59 18:59 Intake Total 540 480 Balance 540 480 - Medications Medications: Current Medications Acetaminophen (Tylenol 325mg Tab) 650 mg PO Q4H PRN PRN Reason: Pain, moderate (4-7) Last Admin: 09/08/17 15:34 Dose: 650 mg Albuterol/Ipratropium (Duoneb 3 Mg/0.5 Mg (3 Ml) Ud) 3 ml IH [id number] PRN PRN Reason: SOB Last Admin: 09/07/17 05:53 Dose: 3 ml Albuterol/Ipratropium (Duoneb 3 Mg/0.5 Mg (3 Ml) Ud) 3 ml IH [id number] [facility] Last Admin: 09/09/17 13:23 Dose: 3 ml Diphenhydramine HCl (Benadryl) 25 mg IVP Q4H PRN PRN Reason: Allergy symptoms Last Admin: 08/28/17 02:22 Dose: 25 mg Ergocalciferol (Drisdol 50,000 Intl Units Cap) 1 cap PO Q7D [facility] Last Admin: 09/02/17 14:34 Dose: 1 cap Ferrous Sulfate (Feosol Liq) 300 mg PO TID [facility] Last Admin: 09/09/17 13:23 Dose: 300 mg Guaifenesin/Codeine Phosphate (Robitussin W/Codeine) 5 ml PO Q4H PRN PRN Reason: Cough and congestion Last Admin: 09/06/17 17:25 Dose: 5 ml Heparin Sodium (Porcine) (Heparin) 5,000 units SC Q12 [facility] PRN Reason: Protocol Last Admin: 09/09/17 09:37 Dose: 5,000 units Potassium Chloride (Potassium Chloride 10 Meq/100 Ml) 10 meq in 100 mls @ 50 mls/hr IVPB Q2H [facility] Stop: 09/09/17 17:29 Last Admin: 09/09/17 14:02 Dose: 50 mls/hr Insulin Human Lispro (Humalog Med) 0 units SC ACHS [facility] PRN Reason: Protocol Last Admin: 09/09/17 12:02 Dose: Not Given Lactic Acid (Lac-Hydrin 12% Cream (140 G)) 0 ea TOP DAILY [facility] Last Admin: 09/09/17 09:39 Dose: 1 applic Levothyroxine Sodium (Synthroid) 100 mcg PO ACB [facility] Multivitamins (Thera Tab) 1 tab PO 0800 [facility] Last Admin: 09/09/17 09:38 Dose: 1 tab Nystatin (Nystop Topical Powder) 1 gm TOP DAILY [facility] Last Admin: 09/09/17 09:39 Dose: 1 applic Pantoprazole Sodium (Protonix Ec Tab) 40 mg PO ACB [facility] Last Admin: 09/09/17 09:38 Dose: 40 mg Phenol/Menthol (Phenaseptic 1.4% Throat [place]) 0 ml MT Q2H PRN PRN Reason: Sore Throat Last Admin: 08/27/17 17:45 Dose: 1 spr Potassium Chloride (K-Dur 20 Meq Er Tab) 40 meq PO Q4 [facility] Stop: 09/09/17 20:01 Last Admin: 09/09/17 12:12 Dose: 40 meq Zinc Sulfate (Zinc Sulfate 220 Mg Cap) 220 mg PO DAILY [facility] Last Admin: 09/09/17 09:30 Dose: 220 mg - Labs Labs: 09/09/17 07:30 09/09/17 07:30 PT 12.5 SECONDS (9.4-12.5) 08/17/17 05:45 INR 1.09 (0.93-1.08) H 08/17/17 05:45 APTT 27.7 Seconds (25.1-36.5) 08/17/17 05:45 Attending/Attestation - Attestation I have personally seen and examined this patient.: Yes I have fully participated in the care of the patient.: Yes I have reviewed all pertinent clinical information, including history, physical exam and plan: Yes Notes (Text): 09/09/17 16:08 Patient was seen and examined with medical record clerk. Agreed with assessment and plan. 67 year old female with past medical history of COPD who initially presented with cellulitis and UTI. Hospital course was complicated with COPD exacerbation, hypercapnic respiratory failure ,SP intubation. Patient is now s/p trach, on trach collar. She is s/p antibiotics for pneumonia and steroids for COPD exacerbation She had enteritis on recent CT abd/pelvis. Symptoms improved after rectal tube was placed later discontinued. Respiratory status is stable. Oral intake is poor, need assistance in feeding. Hypokalemia is due to decrease oral inatke ,getting replacement. Prognosis is guarded.
--- NOTE | 2017-09-08 14:57 | CP.PCM.PN ---
Subjective - Date & Time of Evaluation Date of Evaluation: 09/08/17 Time of Evaluation: 13:30 - Subjective Subjective: Infectious Disease Follow Up: September 08, 2017 67 yo female presenting with 3 weeks of RLE ulceration, swelling and leaking from the wound as well as multiple falls in the past 3 weeks. The patient has an extensive medical history of asthma, arthritis, vitamin C deficiency, and possible thyroid disease. Draining RLE ulceration... cellulitis improved/resolved. Multiple chronic medical issues. Still with persistent dry cough. Otherwise stable. Mild erythema and excoriation of the folds in the abdomen and under the breasts. UTI with Klebsiella earlier in hospitalization but had treatment with Cipro that is now completed. Social Issues. The patient had respiratory distress with no improvement from BiPAP. Patient required intubation and ventilation. Transferred to MICU for further care. The patient was started on Zyvox and Aztreonam IV. Patient had a positive C. Diff antigen but negative toxin. Remains ventilated today. Appears stable. Chest X-ray not showing new findings. No leukocytosis. Cultures pending... so far negative. Patient unable to be weaned from ventilator. Supportive care. No fevers or leukocytosis. First two Procalcitonin equivocal. The patient had hypothermia ranging from 93.0 F starting from two days ago. Temperature did rise back up to 99.0 F and has been hovering around 97.7 F. Creatinine at 1.2 now. No leukocytosis. Open tracheostomy done 08/17/2017. Failed ventilator weaning during this hospitalization. Patient has completed antibiotic regimens and is off antibiotics at this time. Recently comleted PO Vancomycin. Patient is awake and alert. So far stable. No further diarrhea episodes. Last C. Diff antigen positive. Completed therapy. Can stop isolation. Off antibiotics now. Overall stable. No new issues at this time. Objective - Vital Signs/Intake and Output Vital Signs (last 24 hours): Temp Pulse Resp BP Pulse Ox 98.3 F 84 20 146/75 95 09/08/17 07:00 09/08/17 07:00 09/08/17 07:00 09/08/17 07:00 09/08/17 07:00 Intake and Output: 09/08/17 09/08/17 06:59 18:59 Intake Total 540 Output Total 0 Balance 540 0 - Medications Medications: Current Medications Acetaminophen (Tylenol 325mg Tab) 650 mg PO Q4H PRN PRN Reason: Pain, moderate (4-7) Albuterol/Ipratropium (Duoneb 3 Mg/0.5 Mg (3 Ml) Ud) 3 ml IH [id number] PRN PRN Reason: SOB Last Admin: 09/07/17 05:53 Dose: 3 ml Albuterol/Ipratropium (Duoneb 3 Mg/0.5 Mg (3 Ml) Ud) 3 ml IH [id number] [facility] Last Admin: 09/08/17 13:47 Dose: 3 ml Diphenhydramine HCl (Benadryl) 25 mg IVP Q4H PRN PRN Reason: Allergy symptoms Last Admin: 08/28/17 02:22 Dose: 25 mg Ergocalciferol (Drisdol 50,000 Intl Units Cap) 1 cap PO Q7D [facility] Last Admin: 09/02/17 14:34 Dose: 1 cap Ferrous Sulfate (Feosol Liq) 300 mg PO TID [facility] Last Admin: 09/08/17 10:07 Dose: 300 mg Guaifenesin/Codeine Phosphate (Robitussin W/Codeine) 5 ml PO Q4H PRN PRN Reason: Cough and congestion Last Admin: 09/06/17 17:25 Dose: 5 ml Heparin Sodium (Porcine) (Heparin) 5,000 units SC Q12 [facility] PRN Reason: Protocol Last Admin: 09/08/17 10:08 Dose: 5,000 units Insulin Human Lispro (Humalog Med) 0 units SC ACHS [facility] PRN Reason: Protocol Last Admin: 09/08/17 11:50 Dose: Not Given Lactic Acid (Lac-Hydrin 12% Cream (140 G)) 0 ea TOP DAILY [facility] Last Admin: 09/08/17 10:09 Dose: 1 applic Levothyroxine Sodium (Synthroid) 50 mcg IVP DAILY [facility] Last Admin: 09/08/17 10:10 Dose: 50 mcg Multivitamins (Thera Tab) 1 tab PO 0800 [facility] Last Admin: 09/08/17 10:08 Dose: 1 tab Nystatin (Nystop Topical Powder) 1 gm TOP DAILY [facility] Last Admin: 09/08/17 10:09 Dose: 1 applic Pantoprazole Sodium (Protonix Ec Tab) 40 mg PO ACB [facility] Last Admin: 09/08/17 10:08 Dose: 40 mg Phenol/Menthol (Phenaseptic 1.4% Throat [place]) 0 ml MT Q2H PRN PRN Reason: Sore Throat Last Admin: 08/27/17 17:45 Dose: 1 spr Zinc Sulfate (Zinc Sulfate 220 Mg Cap) 220 mg PO DAILY [facility] Last Admin: 09/08/17 10:11 Dose: 220 mg - Labs Labs: 09/08/17 07:20 09/08/17 07:20 PT 12.5 SECONDS (9.4-12.5) 08/17/17 05:45 INR 1.09 (0.93-1.08) H 08/17/17 05:45 APTT 27.7 Seconds (25.1-36.5) 08/17/17 05:45 - Constitutional Appears: Non-toxic, No Acute Distress, Chronically Ill - Head Exam Additional comments: trach and vented. - Eye Exam Eye Exam: EOMI, PERRL Pupil Exam: NORMAL ACCOMODATION, PERRL - ENT Exam ENT Exam: Mucous Membranes Moist, Normal External Ear Exam, TM's Normal Bilaterally - Neck Exam Neck Exam: Full ROM, Normal Inspection - Respiratory Exam Respiratory Exam: Decreased Breath Sounds, NORMAL BREATHING PATTERN. absent: Rales, Rhonchi, Wheezes - Cardiovascular Exam Cardiovascular Exam: REGULAR RHYTHM, RRR, +S1, +S2 - GI/Abdominal Exam GI & Abdominal Exam: Soft, Normal Bowel Sounds. absent: Distended, Tenderness - Extremities Exam Extremities Exam: absent: Joint Swelling, Pedal Edema - Neurological Exam Neurological Exam: Alert, Awake, CN II-XII Intact, Oriented x3 - Psychiatric Exam Psychiatric exam: Normal Affect, Normal Mood - Skin Skin Exam: Intact, Normal Color Assessment and Plan - Assessment and Plan (Free Text) Assessment: 67 yo female with multiple medical issues with PCN allergy diagnosed as a teenager verified by an Die Cleaner. The patient with leukocytosis. Await cultures especially urine cultures. Diabetes and HTN history? Local wound care. Elevated ESR and C-reactive protein. Completed Vancomycin and Aztreonam for antibiotic coverage. UTI with E. coli sensitive to Azactam. Was on Vancomycin for cellulitis IV. For UTI for 5-7 days treatment... completed. Supportive care. Cellulitis appears improved. No new issues. Social issues currently. Homeless at this time. CT scan of chest done. No infiltrates seen. Afebrile the past 24 hours. Mild congestion noted in CT with small pulmonary effusions. No leukocytosis. Slightly elevated procalcitonin (0.66) which is undefined without stronger evidence for pneumonia. When encouraged, she is able to use the incentive spirometer without issues and ambulate with minimal difficulty. Repeat procalcitonin showing 0.71. UTI with Klebsiella. Sensitive to Cipro. Was on Cipro for 5 day course at 500mg PO BID. Completed the antibiotic course. Stable currently. No new issues. Off antibiotics at this time. Multiple social issues. Chronic cough still with periods of hacking. Complained of Vague mild general pains. During this hospitalization, the patient developed respiratory failure and required intubation. Started on Zyvox and Aztreonam IV. Will add Flagyl as well. No leukocytosis. Noted C. Diff with positive antigen but negative toxin. Supportive care. Remains intubated and ventilated. Cultures pending. C. Diff negative to date. No leukocytosis or fever reported. Essentially clear X-ray. Hypothermia episodes most of yesterday to this morning. Antibiotic courses completed. Noted gram positive cocci in most recent urine culture. Still awaiting identification. Supportive care. Patient did improve mentally. Still difficulty in weaning off respirator. She remains intubated. Failed weaning from vent. Tracheotomy performed 08/17/2017. Patient is awake and alert. 08/23/2017 C. Diff testing was positive for antigen and negative for toxin. Supportive care. Completed PO Vancomycin for C. Diff. No new issues. Sitting in chair for a few hours. No new issues at this time. Currently no diarrhea. Can d/c isolation. No new issues at this time. Off all antibiotics at this time. Thank you for allowing me to participate in the care of the patient, we will follow with you.
[2017-09-09] MEDS: Albuterol-Ipratrop 3 mg / 0.5 (3 ml) UD IH SCH ×4 (01:35→20:28)
[2017-09-09 08:05] LABS: BASO # 0.1 K/mm3 (0.0-2.0); BASO % 0.9 % (0.0-3.0); EOS # 0.6 (0.0-0.7); EOS % 5.2 % (1.5-5.0); GRAN # 6.71 (1.4-6.5); GRAN % 61.9 % (50.0-68.0); HEMOGLOBIN 8.7 g/dL (12.0-16.0); LYMPH # 2.5 (1.2-3.4); LYMPH % 22.7 % (22.0-35.0); MEAN CORPUSCULAR HEMOGLOBIN 26.9 pg (25.0-35.0); MEAN CORPUSCULAR HGB CONC 30.5 g/dl (31.0-37.0); MONO % 9.3 % (1.0-6.0); RBC 3.24 10^6/uL (3.5-6.1); RED CELL DISTRIBUTION WIDTH 20.2 % (11.5-14.5); WHITE BLOOD COUNT 10.9 10^3/ul (4.5-11.0)
[2017-09-09 08:21] LABS: CALCIUM 8.3 mg/dL (8.4-10.5)
[2017-09-09] MEDS: Insulin Lispro (humaLOG) MEDIUM Coverage SC SCH ×4 (09:11→22:16)
[2017-09-09] MEDS: Ferrous Sulfate 300 mg/5 mL Liq UD PO SCH ×3 (09:36→17:51)
[2017-09-09] MEDS: Levothyroxine 100 mcg (0.1 mg) Inj IVP SCH (09:37)
[2017-09-09] MEDS: Pantoprazole 40 mg EC Tab PO SCH (09:38)
[2017-09-09] MEDS: Multivitamin Therapeutic Tab PO SCH (09:38)
[2017-09-09] MEDS: Ammonium Lactate 12% Cream (140 g) TOP SCH (09:39)
[2017-09-09] MEDS: Nystatin 100,000 Units/gm Topical Pow(15 gm) TOP SCH (09:39)
[2017-09-09] MEDS: Potassium Chloride 20 mEq ER Tab PO SCH ×2 (12:12→17:53)
--- NOTE | 2017-09-09 15:24 | CP.PCM.PN ---
<Wendi Borja - Last Filed: 09/09/17 15:22> Subjective - Date & Time of Evaluation Date of Evaluation: 09/09/17 Time of Evaluation: 07:10 - Subjective Subjective: Patient seen and examined at bedside. No acute events overnight per nursing. Patient resting comfortably in bed with no new complaints at this time. Patient says she is eating better with her family at bedside helping her eat. Again, I encouraged good nutrition and PO intake. Denies chest pain, SOB, Abdominal pain , n/v/d, leg pain. Objective - Vital Signs/Intake and Output Vital Signs (last 24 hours): Temp Pulse Resp BP Pulse Ox 98.2 F 94 H 20 134/58 L 94 L 09/09/17 07:00 09/09/17 07:00 09/09/17 07:00 09/09/17 07:00 09/09/17 07:00 Intake and Output: 09/09/17 09/09/17 06:59 18:59 Intake Total 540 480 Balance 540 480 - Medications Medications: Current Medications Acetaminophen (Tylenol 325mg Tab) 650 mg PO Q4H PRN PRN Reason: Pain, moderate (4-7) Last Admin: 09/08/17 15:34 Dose: 650 mg Albuterol/Ipratropium (Duoneb 3 Mg/0.5 Mg (3 Ml) Ud) 3 ml IH [id number] PRN PRN Reason: SOB Last Admin: 09/07/17 05:53 Dose: 3 ml Albuterol/Ipratropium (Duoneb 3 Mg/0.5 Mg (3 Ml) Ud) 3 ml IH [id number] [facility] Last Admin: 09/09/17 13:23 Dose: 3 ml Diphenhydramine HCl (Benadryl) 25 mg IVP Q4H PRN PRN Reason: Allergy symptoms Last Admin: 08/28/17 02:22 Dose: 25 mg Ergocalciferol (Drisdol 50,000 Intl Units Cap) 1 cap PO Q7D [facility] Last Admin: 09/02/17 14:34 Dose: 1 cap Ferrous Sulfate (Feosol Liq) 300 mg PO TID [facility] Last Admin: 09/09/17 13:23 Dose: 300 mg Guaifenesin/Codeine Phosphate (Robitussin W/Codeine) 5 ml PO Q4H PRN PRN Reason: Cough and congestion Last Admin: 09/06/17 17:25 Dose: 5 ml Heparin Sodium (Porcine) (Heparin) 5,000 units SC Q12 [facility] PRN Reason: Protocol Last Admin: 09/09/17 09:37 Dose: 5,000 units Potassium Chloride (Potassium Chloride 10 Meq/100 Ml) 10 meq in 100 mls @ 50 mls/hr IVPB Q2H [facility] Stop: 09/09/17 17:29 Last Admin: 09/09/17 14:02 Dose: 50 mls/hr Insulin Human Lispro (Humalog Med) 0 units SC ACHS [facility] PRN Reason: Protocol Last Admin: 09/09/17 12:02 Dose: Not Given Lactic Acid (Lac-Hydrin 12% Cream (140 G)) 0 ea TOP DAILY [facility] Last Admin: 09/09/17 09:39 Dose: 1 applic Levothyroxine Sodium (Synthroid) 100 mcg PO ACB [facility] Multivitamins (Thera Tab) 1 tab PO 0800 [facility] Last Admin: 09/09/17 09:38 Dose: 1 tab Nystatin (Nystop Topical Powder) 1 gm TOP DAILY [facility] Last Admin: 09/09/17 09:39 Dose: 1 applic Pantoprazole Sodium (Protonix Ec Tab) 40 mg PO ACB [facility] Last Admin: 09/09/17 09:38 Dose: 40 mg Phenol/Menthol (Phenaseptic 1.4% Throat [place]) 0 ml MT Q2H PRN PRN Reason: Sore Throat Last Admin: 08/27/17 17:45 Dose: 1 spr Potassium Chloride (K-Dur 20 Meq Er Tab) 40 meq PO Q4 [facility] Stop: 09/09/17 20:01 Last Admin: 09/09/17 12:12 Dose: 40 meq Zinc Sulfate (Zinc Sulfate 220 Mg Cap) 220 mg PO DAILY [facility] Last Admin: 09/09/17 09:30 Dose: 220 mg - Labs Labs: 09/09/17 07:30 09/09/17 07:30 PT 12.5 SECONDS (9.4-12.5) 08/17/17 05:45 INR 1.09 (0.93-1.08) H 08/17/17 05:45 APTT 27.7 Seconds (25.1-36.5) 08/17/17 05:45 - Additional Findings Additional findings: - Constitutional Appears: Non-toxic, No Acute Distress, Chronically Ill - Head Exam Head Exam: ATRAUMATIC, NORMAL INSPECTION, NORMOCEPHALIC - Eye Exam Eye Exam: EOMI, Normal appearance - ENT Exam Additional comments: trach in place - Respiratory Exam Respiratory Exam: Clear to Ausculation Bilateral. absent: Rales, Rhonchi, Wheezes - Cardiovascular Exam Cardiovascular Exam: Tachycardia, REGULAR RHYTHM, +S1, +S2. absent: Murmur - GI/Abdominal Exam GI & Abdominal Exam: Distended, Soft, Normal Bowel Sounds. absent: tenderness - Extremities Exam Extremities Exam: Pedal edema (R>L). absent: Calf Tenderness - Neurological Exam Neurological Exam: Alert, Awake - Skin Skin Exam: Dry, Intact, Normal Color, Warm Assessment and Plan - Assessment and Plan (Free Text) Assessment: Patient is a 67 year old female with history of asthma, arthritis, anemia, and obesity who was originally admitted for right lower extremity cellulitis and UTI. She developed acute hypercapnic respiratory failure secondary to asthma, reactive airway disease and kyphoscoliosis. C. Diff antigen positive, toxin negative. S/P Trach. Patient is alert and awake. Currently afebrile and hemodynamically stable. Plan: Disposition: continue to encourage good nutrition and getting out of bed; will need assistance with feedings; pending TED placement Hypercapnic Respiratory Failure s/p Trach -Last Chest X-Ray (08/24) showing abnormal opacity at left base and lateral mid left lung -Duonebs 3ml IH [id number] scheduled and PRN -Pulmicort 0.5mg IH [id number] -Robitussin DM PO Q4H PRN -completed antibiotic course of zyvox and aztreonam, as well as vanc -Continue Suctioning Q2H and Chest PT PRN -Speech and Swallow Evaluation recommendation for pureed diet with nectar thick liquids and extra gravy -Aspiration precautions -Pulmonology consulted, all recommendations appreciated -PT/OT Eval/Treat Chronic Abdominal Distention -C. Diff antigen positive, C. diff toxin negative -CT Abdomen/Pelvis with IV Contrast showed fluid-filled, dilated colon, with air fluid levels consistent with rapid small bowel transit, nonspecific enteritis, and small bowel is decompressed -ID consulted, all recommendations appreciated Chronic Normocytic Anemia -H/H stable at this time -Continue Feosol 300mg PO TID -Monitor with daily CBC's -Will consider transfusion if needed HTN -Holding home Zestril as patient had CATE during this hospital visit -Currently well controlled without medication -Monitor with Vital Signs Q4H Hypothyriodism -Continue Synthroid 50mcg daily Hypocalcemia -Continue Caltrate 600mg PO BID Vitamin D Deficiency -Continue weekly Drisdol Difficulty Sleeping -Continue Benadryl PRN GI: Protonix DVT: Heparin <Max Liriano - Last Filed: 09/09/17 16:11> Objective - Vital Signs/Intake and Output Vital Signs (last 24 hours): Temp Pulse Resp BP Pulse Ox 98.2 F 94 H 20 134/58 L 94 L 09/09/17 07:00 09/09/17 07:00 09/09/17 07:00 09/09/17 07:00 09/09/17 07:00 Intake and Output: 09/09/17 09/09/17 06:59 18:59 Intake Total 540 480 Balance 540 480 - Medications Medications: Current Medications Acetaminophen (Tylenol 325mg Tab) 650 mg PO Q4H PRN PRN Reason: Pain, moderate (4-7) Last Admin: 09/08/17 15:34 Dose: 650 mg Albuterol/Ipratropium (Duoneb 3 Mg/0.5 Mg (3 Ml) Ud) 3 ml IH [id number] PRN PRN Reason: SOB Last Admin: 09/07/17 05:53 Dose: 3 ml Albuterol/Ipratropium (Duoneb 3 Mg/0.5 Mg (3 Ml) Ud) 3 ml IH [id number] [facility] Last Admin: 09/09/17 13:23 Dose: 3 ml Diphenhydramine HCl (Benadryl) 25 mg IVP Q4H PRN PRN Reason: Allergy symptoms Last Admin: 08/28/17 02:22 Dose: 25 mg Ergocalciferol (Drisdol 50,000 Intl Units Cap) 1 cap PO Q7D [facility] Last Admin: 09/02/17 14:34 Dose: 1 cap Ferrous Sulfate (Feosol Liq) 300 mg PO TID [facility] Last Admin: 09/09/17 13:23 Dose: 300 mg Guaifenesin/Codeine Phosphate (Robitussin W/Codeine) 5 ml PO Q4H PRN PRN Reason: Cough and congestion Last Admin: 09/06/17 17:25 Dose: 5 ml Heparin Sodium (Porcine) (Heparin) 5,000 units SC Q12 [facility] PRN Reason: Protocol Last Admin: 09/09/17 09:37 Dose: 5,000 units Potassium Chloride (Potassium Chloride 10 Meq/100 Ml) 10 meq in 100 mls @ 50 mls/hr IVPB Q2H [facility] Stop: 09/09/17 17:29 Last Admin: 09/09/17 14:02 Dose: 50 mls/hr Insulin Human Lispro (Humalog Med) 0 units SC ACHS [facility] PRN Reason: Protocol Last Admin: 09/09/17 12:02 Dose: Not Given Lactic Acid (Lac-Hydrin 12% Cream (140 G)) 0 ea TOP DAILY [facility] Last Admin: 09/09/17 09:39 Dose: 1 applic Levothyroxine Sodium (Synthroid) 100 mcg PO ACB [facility] Multivitamins (Thera Tab) 1 tab PO 0800 [facility] Last Admin: 09/09/17 09:38 Dose: 1 tab Nystatin (Nystop Topical Powder) 1 gm TOP DAILY [facility] Last Admin: 09/09/17 09:39 Dose: 1 applic Pantoprazole Sodium (Protonix Ec Tab) 40 mg PO ACB [facility] Last Admin: 09/09/17 09:38 Dose: 40 mg Phenol/Menthol (Phenaseptic 1.4% Throat [place]) 0 ml MT Q2H PRN PRN Reason: Sore Throat Last Admin: 08/27/17 17:45 Dose: 1 spr Potassium Chloride (K-Dur 20 Meq Er Tab) 40 meq PO Q4 [facility] Stop: 09/09/17 20:01 Last Admin: 09/09/17 12:12 Dose: 40 meq Zinc Sulfate (Zinc Sulfate 220 Mg Cap) 220 mg PO DAILY [facility] Last Admin: 09/09/17 09:30 Dose: 220 mg - Labs Labs: 09/09/17 07:30 09/09/17 07:30 PT 12.5 SECONDS (9.4-12.5) 08/17/17 05:45 INR 1.09 (0.93-1.08) H 08/17/17 05:45 APTT 27.7 Seconds (25.1-36.5) 08/17/17 05:45 Attending/Attestation - Attestation I have personally seen and examined this patient.: Yes I have fully participated in the care of the patient.: Yes I have reviewed all pertinent clinical information, including history, physical exam and plan: Yes Notes (Text): 09/09/17 16:09 Patient was seen and examined with er medical technician.Marii is at bed side Agreed with assessment and plan. Patient remain stable overnight.67 year old female with past medical history of COPD who initially presented with cellulitis and UTI. Hospital course was complicated with COPD exacerbation, hypercapnic respiratory failure ,SP intubation. Patient is now s/p trach, on trach collar. She is s/p antibiotics for pneumonia and steroids for COPD exacerbation She had enteritis on recent CT abd/pelvis. Symptoms improved after rectal tube was placed later discontinued. Respiratory status is stable.Oral intake is poor Hypokalemia , getting replacement.will follow up LABS. Management plan was discussed in detail with patient and family Education was provided. Prognosis is guarded.
[2017-09-09 16:26] LABS: BLOOD UREA NITROGEN 19 mg/dL (7-21); CALCIUM 8.6 mg/dL (8.4-10.5); GFR AFRICAN-AMERICAN > 60; GFR NON-AFRICAN AMERICAN 50
[2017-09-09] MEDS: Ergocalciferol 50,000 Intl Units Cap PO SCH (16:31)
--- NOTE | 2017-09-09 23:07 | CP.PCM.PN ---
Subjective - Date & Time of Evaluation Date of Evaluation: 09/09/17 Time of Evaluation: 21:15 - Subjective Subjective: Infectious Disease Follow Up: September 09, 2017 67 yo female presenting with 3 weeks of RLE ulceration, swelling and leaking from the wound as well as multiple falls in the past 3 weeks. The patient has an extensive medical history of asthma, arthritis, vitamin C deficiency, and possible thyroid disease. Draining RLE ulceration... cellulitis improved/resolved. Multiple chronic medical issues. Still with persistent dry cough. Otherwise stable. Mild erythema and excoriation of the folds in the abdomen and under the breasts. UTI with Klebsiella earlier in hospitalization but had treatment with Cipro that is now completed. Social Issues. The patient had respiratory distress with no improvement from BiPAP. Patient required intubation and ventilation. Transferred to MICU for further care. The patient was started on Zyvox and Aztreonam IV. Patient had a positive C. Diff antigen but negative toxin. Remains ventilated today. Appears stable. Chest X-ray not showing new findings. No leukocytosis. Cultures pending... so far negative. Patient unable to be weaned from ventilator. Supportive care. No fevers or leukocytosis. First two Procalcitonin equivocal. The patient had hypothermia ranging from 93.0 F starting from two days ago. Temperature did rise back up to 99.0 F and has been hovering around 97.7 F. Creatinine at 1.2 now. No leukocytosis. Open tracheostomy done 08/17/2017. Failed ventilator weaning during this hospitalization. Patient has completed antibiotic regimens and is off antibiotics at this time. Recently comleted PO Vancomycin. Patient is awake and alert. So far stable. No further diarrhea episodes. Last C. Diff antigen positive. Completed therapy. Can stop isolation. Off antibiotics now. Overall stable. No new issues at this time. Objective - Vital Signs/Intake and Output Vital Signs (last 24 hours): Temp Pulse Resp BP Pulse Ox 99 F 90 20 122/60 95 09/09/17 16:00 09/09/17 16:00 09/09/17 16:00 09/09/17 16:00 09/09/17 16:00 Intake and Output: 09/09/17 09/10/17 18:59 06:59 Intake Total 480 480 Balance 480 480 - Medications Medications: Current Medications Acetaminophen (Tylenol 325mg Tab) 650 mg PO Q4H PRN PRN Reason: Pain, moderate (4-7) Last Admin: 09/08/17 15:34 Dose: 650 mg Albuterol/Ipratropium (Duoneb 3 Mg/0.5 Mg (3 Ml) Ud) 3 ml IH [id number] PRN PRN Reason: SOB Last Admin: 09/07/17 05:53 Dose: 3 ml Albuterol/Ipratropium (Duoneb 3 Mg/0.5 Mg (3 Ml) Ud) 3 ml IH [id number] [facility] Last Admin: 09/09/17 20:28 Dose: 3 ml Diphenhydramine HCl (Benadryl) 25 mg IVP Q4H PRN PRN Reason: Allergy symptoms Last Admin: 08/28/17 02:22 Dose: 25 mg Ergocalciferol (Drisdol 50,000 Intl Units Cap) 1 cap PO Q7D [facility] Last Admin: 09/09/17 16:31 Dose: 1 cap Ferrous Sulfate (Feosol Liq) 300 mg PO TID [facility] Last Admin: 09/09/17 17:51 Dose: 300 mg Guaifenesin/Codeine Phosphate (Robitussin W/Codeine) 5 ml PO Q4H PRN PRN Reason: Cough and congestion Last Admin: 09/06/17 17:25 Dose: 5 ml Heparin Sodium (Porcine) (Heparin) 5,000 units SC Q12 [facility] PRN Reason: Protocol Last Admin: 09/09/17 22:11 Dose: 5,000 units Insulin Human Lispro (Humalog Med) 0 units SC ACHS [facility] PRN Reason: Protocol Last Admin: 09/09/17 22:16 Dose: Not Given Lactic Acid (Lac-Hydrin 12% Cream (140 G)) 0 ea TOP DAILY [facility] Last Admin: 09/09/17 09:39 Dose: 1 applic Levothyroxine Sodium (Synthroid) 100 mcg PO ACB [facility] Multivitamins (Thera Tab) 1 tab PO 0800 [facility] Last Admin: 09/09/17 09:38 Dose: 1 tab Nystatin (Nystop Topical Powder) 1 gm TOP DAILY [facility] Last Admin: 09/09/17 09:39 Dose: 1 applic Pantoprazole Sodium (Protonix Ec Tab) 40 mg PO ACB [facility] Last Admin: 02/08/18 09:38 Dose: 40 mg Phenol/Menthol (Phenaseptic 1.4% Throat [place]) 0 ml MT Q2H PRN PRN Reason: Sore Throat Last Admin: 08/27/17 17:45 Dose: 1 spr Zinc Sulfate (Zinc Sulfate 220 Mg Cap) 220 mg PO DAILY [facility] Last Admin: 09/09/17 09:30 Dose: 220 mg - Labs Labs: 09/09/17 07:30 09/09/17 16:09 PT 12.5 SECONDS (9.4-12.5) 08/17/17 05:45 INR 1.09 (0.93-1.08) H 08/17/17 05:45 APTT 27.7 Seconds (25.1-36.5) 08/17/17 05:45 - Constitutional Appears: Non-toxic, No Acute Distress, Chronically Ill - Head Exam Additional comments: trach - Eye Exam Eye Exam: EOMI, PERRL Pupil Exam: NORMAL ACCOMODATION, PERRL - ENT Exam ENT Exam: Mucous Membranes Moist, Normal External Ear Exam, TM's Normal Bilaterally - Neck Exam Neck Exam: Full ROM, Normal Inspection - Respiratory Exam Respiratory Exam: Clear to Ausculation Bilateral, NORMAL BREATHING PATTERN. absent: Rales, Rhonchi, Wheezes - Cardiovascular Exam Cardiovascular Exam: REGULAR RHYTHM, RRR, +S1, +S2 - GI/Abdominal Exam GI & Abdominal Exam: Soft, Normal Bowel Sounds. absent: Distended, Tenderness - Extremities Exam Extremities Exam: Joint Swelling, Pedal Edema - Neurological Exam Neurological Exam: Alert, Awake, CN II-XII Intact, Oriented x3 - Psychiatric Exam Psychiatric exam: Normal Affect, Normal Mood - Skin Skin Exam: Intact, Normal Color Assessment and Plan - Assessment and Plan (Free Text) Assessment: 67 yo female with multiple medical issues with PCN allergy diagnosed as a teenager verified by an [employer]. The patient with leukocytosis. Await cultures especially urine cultures. Diabetes and HTN history? Local wound care. Elevated ESR and C-reactive protein. Completed Vancomycin and Aztreonam for antibiotic coverage. UTI with E. coli sensitive to Azactam. Was on Vancomycin for cellulitis IV. For UTI for 5-7 days treatment... completed. Supportive care. Cellulitis appears improved. No new issues. Social issues currently. Homeless at this time. CT scan of chest done. No infiltrates seen. Afebrile the past 24 hours. Mild congestion noted in CT with small pulmonary effusions. No leukocytosis. Slightly elevated procalcitonin (0.66) which is undefined without stronger evidence for pneumonia. When encouraged, she is able to use the incentive spirometer without issues and ambulate with minimal difficulty. Repeat procalcitonin showing 0.71. UTI with Klebsiella. Sensitive to Cipro. Was on Cipro for 5 day course at 500mg PO BID. Completed the antibiotic course. Stable currently. No new issues. Off antibiotics at this time. Multiple social issues. Chronic cough still with periods of hacking. Complained of Vague mild general pains. During this hospitalization, the patient developed respiratory failure and required intubation. Started on Zyvox and Aztreonam IV. Will add Flagyl as well. No leukocytosis. Noted C. Diff with positive antigen but negative toxin. Supportive care. Remains intubated and ventilated. Cultures pending. C. Diff negative to date. No leukocytosis or fever reported. Essentially clear X-ray. Hypothermia episodes most of yesterday to this morning. Antibiotic courses completed. Noted gram positive cocci in most recent urine culture. Still awaiting identification. Supportive care. Patient did improve mentally. Still difficulty in weaning off respirator. She remains intubated. Failed weaning from vent. Tracheotomy performed 08/17/2017. Patient is awake and alert. 08/23/2017 C. Diff testing was positive for antigen and negative for toxin. Supportive care. Completed PO Vancomycin for C. Diff. No new issues. Sitting in chair for a few hours. No new issues at this time. Currently no diarrhea. Can d/c isolation. No new issues at this time. Off all antibiotics at this time. Thank you for allowing me to participate in the care of the patient, we will follow with you.
[2017-09-10] MEDS: Albuterol-Ipratrop 3 mg / 0.5 (3 ml) UD IH SCH ×4 (02:07→21:39)
[2017-09-10] MEDS: Potassium Chloride 20 mEq ER Tab PO SCH (06:58)
[2017-09-10] MEDS ORDERED: Levothyroxine 100 MCG TAB PO SCH (07:30)
[2017-09-10 07:44] LABS: BASO # 0.1 K/mm3 (0.0-2.0); EOS # 0.5 (0.0-0.7); EOS % 5.4 % (1.5-5.0); GRAN # 6.05 (1.4-6.5); GRAN % 63.5 % (50.0-68.0); HEMOGLOBIN 8.9 g/dL (12.0-16.0); LYMPH % 20.7 % (22.0-35.0); MEAN CELL VOLUME 87.7 fl (80.0-105.0); MEAN CORPUSCULAR HEMOGLOBIN 26.7 pg (25.0-35.0); MEAN CORPUSCULAR HGB CONC 30.5 g/dl (31.0-37.0); MEAN PLATELET VOLUME 8.9 fl (7.0-11.0); MONO # 0.9 (0.1-0.6); MONO % 9.4 % (1.0-6.0); RBC 3.33 10^6/uL (3.5-6.1); RED CELL DISTRIBUTION WIDTH 20.1 % (11.5-14.5); WHITE BLOOD COUNT 9.6 10^3/ul (4.5-11.0)
[2017-09-10] MEDS: Insulin Lispro (humaLOG) MEDIUM Coverage SC SCH ×3 (08:03→17:19)
[2017-09-10 08:12] LABS: BLOOD UREA NITROGEN 18 mg/dL (7-21); CALCIUM 8.5 mg/dL (8.4-10.5); GFR AFRICAN-AMERICAN > 60; GFR NON-AFRICAN AMERICAN 50
[2017-09-10] MEDS ORDERED: Potassium Chloride 20 mEq ER Tab PO ONE (08:33)
[2017-09-10] MEDS: Multivitamin Therapeutic Tab PO SCH (08:37)
[2017-09-10] MEDS: Pantoprazole 40 mg EC Tab PO SCH (08:37)
[2017-09-10] MEDS: Ferrous Sulfate 300 mg/5 mL Liq UD PO SCH ×3 (09:45→18:18)
[2017-09-10] MEDS: Ammonium Lactate 12% Cream (140 g) TOP SCH (09:48)
[2017-09-10] MEDS: Nystatin 100,000 Units/gm Topical Pow(15 gm) TOP SCH (09:49)
[2017-09-10] MEDS ORDERED: Potassium Chloride 20 mEq ER Tab PO SCH (12:00)
[2017-09-10 13:40] LABS: BLOOD UREA NITROGEN 20 mg/dL (7-21); CALCIUM 8.5 mg/dL (8.4-10.5); GFR AFRICAN-AMERICAN > 60; GFR NON-AFRICAN AMERICAN 50
--- NOTE | 2017-09-10 14:15 | CP.PCM.DIS ---
<JonhWendi - Last Filed: 09/10/17 15:45> Provider - Provider Date of Admission: 06/15/17 13:49 Attending physician: Juan Rodriguez MD Primary care physician: NO PRIMARY CARE PROVIDER Consults: Dr. Kate Jain Time Spent in preparation of Discharge (in minutes): 45 Hospital Course - Lab Results Lab Results: Micro Results 08/23/17 11:27 Stool C. difficile Antigen & Toxin A,B (M - Final 08/16/17 18:04 Stool C. difficile Antigen & Toxin A,B (M - Final 08/10/17 11:30 Blood Blood Culture - Final NO GROWTH AFTER 5 DAYS 08/10/17 11:30 Blood Gram Stain - Final TEST NOT PERFORMED 08/10/17 12:40 Urine,Christensen Urine Culture - Final Gram Positive Cocci 08/08/17 11:00 Stool C. difficile Antigen & Toxin A,B (M - Final 08/06/17 16:15 Naris MRSA Culture (Admit) - Final MRSA NOT DETECTED 08/06/17 04:29 Stool C. difficile Antigen & Toxin A,B (M - Final 07/05/17 22:35 Urine Urine Culture - Final Klebsiella Pneumoniae Ssp Pneu 07/05/17 15:00 Blood Blood Culture - Final NO GROWTH AFTER 5 DAYS 07/05/17 15:00 Blood Gram Stain - Final TEST NOT PERFORMED 06/15/17 14:30 Ankle - Right Gram Stain - Final 06/15/17 14:30 Ankle - Right Wound Culture - Final Proteus Mirabilis Beta Hemolytic Strep Group B Most Recent Lab Values WBC 9.6 10^3/ul (4.5-11.0) 09/10/17 07:00 RBC 3.33 10^6/uL (3.5-6.1) L 09/10/17 07:00 Hgb 8.9 g/dL (12.0-16.0) L 09/10/17 07:00 Hct 29.2 % (36.0-48.0) L 09/10/17 07:00 MCV 87.7 fl (80.0-105.0) 09/10/17 07:00 MCH 26.7 pg (25.0-35.0) 09/10/17 07:00 MCHC 30.5 g/dl (31.0-37.0) L 09/10/17 07:00 RDW 20.1 % (11.5-14.5) H 09/10/17 07:00 Plt Count 377 10^3/uL (120.0-450.0) 09/10/17 07:00 MPV 8.9 fl (7.0-11.0) 09/10/17 07:00 Gran % 63.5 % (50.0-68.0) 09/10/17 07:00 Lymph % (Auto) 20.7 % (22.0-35.0) L 09/10/17 07:00 [place] % (Auto) 9.4 % (1.0-6.0) H 09/10/17 07:00 Eos % (Auto) 5.4 % (1.5-5.0) H 09/10/17 07:00 Baso % (Auto) 1.0 % (0.0-3.0) 09/10/17 07:00 Gran # 6.05 (1.4-6.5) 09/10/17 07:00 Lymph # (Auto) 2.0 (1.2-3.4) 09/10/17 07:00 [place] # (Auto) 0.9 (0.1-0.6) H 09/10/17 07:00 Eos # (Auto) 0.5 (0.0-0.7) 09/10/17 07:00 Baso # (Auto) 0.10 K/mm3 (0.0-2.0) 09/10/17 07:00 Neutrophils % (Manual) 90 % (50.0-70.0) H 07/23/17 06:30 Lymphocytes % (Manual) 8 % (22.0-35.0) L 07/23/17 06:30 Monocytes % (Manual) 2 % (1.0-6.0) 07/23/17 06:30 Platelet Evaluation Normal (NORMAL) 07/23/17 06:30 Anisocytosis (manual) Slight 07/23/17 06:30 ESR 76 mm/hr (0.0-20.0) H 07/22/17 06:20 PT 12.5 SECONDS (9.4-12.5) 08/17/17 05:45 INR 1.09 (0.93-1.08) H 08/17/17 05:45 APTT 27.7 Seconds (25.1-36.5) 08/17/17 05:45 pCO2 53 mm/Hg (35-45) H 08/20/17 20:31 pO2 94.0 mm/Hg (80-100) 08/20/17 20:31 HCO3 34.4 mmol/L (21-28) H 08/20/17 20:31 ABG pH 7.42 (7.35-7.45) 08/20/17 20:31 ABG Total CO2 36.0 mmol.L (22-28) H 08/20/17 20:31 ABG O2 Saturation 99.4 % (95-98) H 08/20/17 20:31 ABG O2 Content 12.4 ML/dl (15-23) L 08/20/17 20:31 ABG Base Excess 8.7 mmol/L (-2.0-3.0) H 08/20/17 20:31 ABG Hemoglobin 9.0 g/dL (11.7-17.4) L 08/20/17 20:31 ABG Carboxyhemoglobin 1.9 % (0.5-1.5) H 08/20/17 20:31 POC ABG HHb (Measured) 0.6 % (0-5) 08/20/17 20:31 ABG Methemoglobin 0.9 % (0.0-3.0) 08/20/17 20:31 ABG O2 Capacity 12.5 mL/dl (16-24) L 08/20/17 20:31 ABG Potassium 2.4 mmol/L (3.6-5.2) L* 08/08/17 15:30 VBG pH 7.40 (7.32-7.43) 06/15/17 14:48 VBG pCO2 40.0 (40-60) 06/15/17 14:48 VBG HCO3 24.8 mmol/l (21-28) 06/15/17 14:48 VBG Total CO2 26.0 mmol.L (22-28) 06/15/17 14:48 VBG O2 Sat (Calc) 96.6 % (40-65) H 06/15/17 14:48 VBG Base Excess 0.0 mmol/L (0.0-2.0) 06/15/17 14:48 VBG Potassium 3.9 mmol/L (3.6-5.2) 06/15/17 14:48 Hgb O2 Saturation 96.5 % (95.0-98.0) 08/20/17 20:31 Sodium 138.0 mmol/L (132-148) 08/08/17 15:30 Chloride 108.0 mmol/L (98-107) H 08/08/17 15:30 Glucose 134 mg/dl (65-105) H 08/08/17 15:30 Lactate 0.9 mmol/L (0.7-2.1) 08/08/17 15:30 Mechanical Rate 24 08/08/17 15:30 FiO2 35.0 % 08/20/17 20:31 Tidal Volume 350 08/08/17 15:30 PEEP 5 08/08/17 15:30 Sodium 141 mmol/L (132-148) 09/10/17 13:10 Potassium 3.4 mmol/L (3.6-5.0) L 09/10/17 13:10 Chloride 101 mmol/L (98-107) 09/10/17 13:10 Carbon Dioxide 29 mmol/L (21-33) 09/10/17 13:10 Anion Gap 14 (10-20) 09/10/17 13:10 BUN 20 mg/dL (7-21) 09/10/17 13:10 Creatinine 1.1 mg/dl (0.7-1.2) 09/10/17 13:10 Est GFR ( Amer) > 60 09/10/17 13:10 Est GFR (Non-Af Amer) 50 09/10/17 13:10 POC Glucose (mg/dL) 132 mg/dL (65-110) H 09/10/17 11:23 Random Glucose 134 mg/dL (70-110) H 09/10/17 13:10 Hemoglobin A1c 6.4 % (4.2-6.5) 06/15/17 12:05 Serum Osmolality 301 mosm/kg (272-300) H 08/23/17 21:20 Lactic Acid 0.9 mmol/L (0.7-2.1) 07/03/17 16:25 Uric Acid 8.5 mg/dL (2.5-6.2) H 08/08/17 05:30 Calcium 8.5 mg/dL (8.4-10.5) 09/10/17 13:10 Phosphorus 2.4 mg/dL (2.5-4.5) L 08/27/17 06:30 Iron 16 ug/dL (45-180) L 06/16/17 11:20 TIBC 210.1 ug/dL (250-450) L 06/16/17 11:20 % Saturation 7 (20-55) L 06/16/17 11:20 Magnesium 1.9 mg/dL (1.7-2.2) 09/07/17 07:00 Ferritin 69.2 ng/mL 06/16/17 11:20 Total Bilirubin 0.3 mg/dL (0.2-1.3) 09/06/17 07:30 AST 38 U/L (14-36) H 09/06/17 07:30 ALT 28 U/L (7-56) 09/06/17 07:30 Alkaline Phosphatase 119 U/L (38-126) 09/06/17 07:30 Ammonia 29 umol/L (9-33) 08/06/17 12:20 Lactate Dehydrogenase 468 U/L (333-699) 06/15/17 12:40 Total Creatine Kinase 38 U/L (35-230) 06/15/17 12:40 Troponin I < 0.01 ng/mL 06/15/17 12:40 C-React Prot High Sens > 15.00 mg/L (1.00-3.00) H 06/15/17 11:00 NT-Pro-B Natriuret Pep 397 pg/mL (0-450) 07/22/17 06:20 Total Protein 6.5 g/dL (5.8-8.3) 09/06/17 07:30 Albumin 2.8 g/dL (3.0-4.8) L 09/06/17 07:30 Globulin 3.7 gm/dL 09/06/17 07:30 Albumin/Globulin Ratio 0.8 (1.1-1.8) L 09/06/17 07:30 Triglycerides 64 mg/dL (35-160) 06/15/17 12:05 Cholesterol 159 mg/dL (130-200) 06/15/17 12:05 LDL Cholesterol Direct 93 mg/dL (0-129) 06/15/17 12:05 HDL Cholesterol 53 mg/dL (29-60) 06/15/17 12:05 Vitamin B12 444 pg/mL (239-931) 06/16/17 11:20 25-OH Vitamin D Total 15.0 NG/ML (30.0-100.0) L 08/22/17 05:30 Folate > 20.0 ng/mL 06/16/17 11:20 Procalcitonin 1.49 NG/ML (0.19-0.49) H 08/11/17 13:30 Free T4 1.63 ng/dL (0.78-2.19) 06/15/17 12:00 Thyroxine (T4) 3.4 ug/dL (5.5-11.0) L 08/10/17 12:00 TSH 3rd Generation 2.33 mIU/mL (0.46-4.68) 08/10/17 12:00 Arterial Blood Potassium 2.4 mmol/L (3.6-5.2) L* 08/08/17 15:30 Venous Blood Potassium 3.9 mmol/L (3.6-5.2) 06/15/17 14:48 Urine Color Yellow (YELLOW) 08/10/17 20: Urine Appearance Clear (CLEAR) 08/10/17 20: Urine pH 6.0 (4.7-8.0) 08/10/17 20:27 Ur Specific [place] 1.010 (1.005-1.035) 08/10/17 20:27 Urine Protein Negative mg/dL (<30 mg/dL) 08/10/17 20:27 Urine Glucose (UA) Negative mg/dL (NEGATIVE) 08/10/17 20:27 Urine Ketones Negative mg/dL (NEGATIVE) 08/10/17 20: Urine Blood Negative (NEGATIVE) 08/10/17 20: Urine Nitrate Negative (NEGATIVE) 08/10/17 20:27 Urine Bilirubin Negative (NEGATIVE) 08/10/17 20:27 Urine Urobilinogen 0.2 E.U./dL (<1 E.U./dL) 08/10/17 20:27 Ur Leukocyte Esterase Negative Alexis/uL (NEGATIVE) 08/10/17 20:27 Urine RBC 1 - 3 /hpf (0-2) 08/08/17 13:50 Urine WBC 1 - 3 /hpf (0-6) 08/08/17 13:50 Ur Epithelial Cells 0 - 2 /hpf (0-5) 08/08/17 13:50 Urine Bacteria Few (NEG) 08/08/17 13:50 Urine Other Uyeast 08/08/17 13:50 Urine Eosinophils Negative 08/10/17 20:27 Ur Random Creatinine 52 mg/dL 08/08/17 13:50 Ur Random Sodium 34 meq/L 08/09/17 09:30 Ur Random Potassium 5.6 meq/L 08/09/17 09:30 Rheumatoid Factor IgG <5 U (<=6) 07/22/17 14:45 Rheumatoid Factor IgA 9 U (<=6) H 07/22/17 14:45 Rheumatoid Factor IgM 6 U (<=6) 07/22/17 14:45 Cycl Citrul Peptide IgG >250 Units (<20) H 07/22/17 14:45 RAS Screen Positive (Negative) H 07/22/17 14:45 RAS Titer 1:80 Titer (<1:40) H 07/22/17 14:45 RAS Titer 2 TEST NOT PERFORMED 07/22/17 14:45 RAS Pattern Homogeneous H 07/22/17 14:45 RAS Pattern 2 TEST NOT PERFORMED 07/22/17 14:45 ANCA Screen Negative (NEGATIVE) 08/08/17 05:30 c-ANCA Titer TNP 08/08/17 05:30 Proteinase 3 (PR3) <1.0 AI (<1.0) 08/08/17 05:30 p-ANCA Titer TNP 08/08/17 05:30 Atypical p-ANCA Titer TNP 08/08/17 05:30 Myeloperoxidase Ab <1.0 AI (<1.0) 08/08/17 05:30 Double Strand DNA Ab <1 IU/mL 08/09/17 06:00 Glomerular Base Mem IgG <1.0 AI (<1.0) 08/08/17 11:43 Complement C3 91.0 mg/dL (88.0-165.0) 08/08/17 05:30 Complement C4 36.9 mg/dL (14.0-44.0) 08/08/17 05:30 - Hospital Course Hospital Course: Upon admission: Ms. Chou is a 67yo F PMH asthma, arthritis, vitamin C deficiency, and possible thyroid disease who presents with 3 weeks of RLE ulceration, swelling and leaking from the wound as well as multiple falls in the past 3 weeks. important to note that pt is a poor historian. she does not have a PMD, does not see a doctor, and does not take medications at home. she denies chest pain, sob, cough, fevers/chills, dysuria, constipation, n/v/d, back pain. 12-pt ROS was reviewed and is otherwise unremarkable. In ED, CT Head was unremarkable, CXR was unremarkable, R ankle XR showed degenerative and arthritic changes. UA had +nirates and mod LE. Vancomycin and 2.7 L boluses were given. Hospital Course: Patient was admitted and started on azactam. Wound cx grew proteus mirabilis and betea hemolytic group b strep; ucx grew E.coli. Echo done 06/22 showed dilated left atrium, ef 56.5%. Left upper ext US ordered on 06/27 for swollen arm and found to be negative. On 07/04 patient had fevers overnight. Cxr showed new changes. CT chest ordered 07/05 showed showed mildly enlarged axillary lymph nodes and moderate cardiomegaly w. mild vascular congestion Patient started having abdominal distention on 07/17 and was given miralax for constipation. Patient started desaturating on 07/20 and Pulm consulted the next day. Pulm ordered cpap at night and solu-medrol. 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 He added inhaled cortiosteroids/ LABA, and tapered down IV steroids. Patient was told she would need Rheum evaluation as an outpt (for methotrexate) - none in house. Patient was started lisinopril for high BP. C. Diff studies were ordered for diarrhea and found to be C. Diff antigen positive, toxin negative. On 08/06, patient became lethargic after being found not using her BiPAP at night, and ABG showed a PCO2 92, pH 7.13. Patient was transferred to ICU and intubated for respiratory failure. Patient was worked up for sepsis with cultures. Urine cultures were positive for gram positive cocci. Antibiotics were started. Patient continued to fail CPAP trials so trach was planned and done on 08/17. Patient improved and speech therapy eval was ordered by ICU team who recommended pureed diet, thick nectar, extra gravy. On 08/21, rectal tube was placed for abdominal distension which helped. Patient was transferred out of the ICU on 08/25. Once on the regular floor, patient's electrolytes were replaced as needed until she got placement at [facility] [place]. Discharge Exam - Head Exam Head Exam: ATRAUMATIC, NORMAL INSPECTION, NORMOCEPHALIC - Eye Exam Eye Exam: EOMI, Normal appearance - ENT Exam ENT Exam: Mucous Membranes Moist - Respiratory Exam Respiratory Exam: Clear to PA & Lateral, NORMAL BREATHING PATTERN, UNREMARKABLE - Cardiovascular Exam Cardiovascular Exam: RRR, +S1, +S2 - GI/Abdominal Exam GI & Abdominal Exam: Distended, Normal Bowel Sounds, Soft. absent: Tenderness - Extremities Exam Extremities exam: normal inspection - Neurological Exam Neurological exam: Alert, Oriented x3 - Psychiatric Exam Psychiatric exam: Normal Affect, Normal Mood Discharge Plan - Discharge Medications Prescriptions: Potassium Chloride [K-Dur 20] 40 meq PO DAILY #30 tab - Follow Up Plan Condition: STABLE Disposition: REHAB FACILITY/REHAB UNIT Instructions: Tracheostomy Care (DC), Urinary Tract Infection in Women (DC), Urinary Tract Infection in Women (GEN), Cellulitis (ED), Cellulitis (DC), Cellulitis (GEN), Hypokalemia (DC) Additional Instructions: 1. Advised patient to follow up with PMD within one week of discharge. 2. Advised patient to continue PT. 3. Advised patient to return to emergency department for any new or worsening symptoms. Referrals: PCP,NO [Primary Care Provider] - Follow up with primary <Max Liriano - Last Filed: 09/11/17 11:41> Provider - Provider Date of Admission: 06/15/17 13:49 Attending physician: Juan Rodriguez MD Primary care physician: NO PRIMARY CARE PROVIDER Hospital Course - Lab Results Lab Results: Micro Results 08/23/17 11:27 Stool C. difficile Antigen & Toxin A,B (M - Final 08/16/17 18:04 Stool C. difficile Antigen & Toxin A,B (M - Final 08/10/17 11:30 Blood Blood Culture - Final NO GROWTH AFTER 5 DAYS 08/10/17 11:30 Blood Gram Stain - Final TEST NOT PERFORMED 08/10/17 12:40 Urine,Christensen Urine Culture - Final Gram Positive Cocci 08/08/17 11:00 Stool C. difficile Antigen & Toxin A,B (M - Final 08/06/17 16:15 Naris MRSA Culture (Admit) - Final MRSA NOT DETECTED 08/06/17 04:29 Stool C. difficile Antigen & Toxin A,B (M - Final 07/05/17 22:35 Urine Urine Culture - Final Klebsiella Pneumoniae Ssp Pneu 07/05/17 15:00 Blood Blood Culture - Final NO GROWTH AFTER 5 DAYS 07/05/17 15:00 Blood Gram Stain - Final TEST NOT PERFORMED 06/15/17 14:30 Ankle - Right Gram Stain - Final 06/15/17 14:30 Ankle - Right Wound Culture - Final Proteus Mirabilis Beta Hemolytic Strep Group B Most Recent Lab Values WBC 9.6 10^3/ul (4.5-11.0) 09/10/17 07:00 RBC 3.33 10^6/uL (3.5-6.1) L 09/10/17 07:00 Hgb 8.9 g/dL (12.0-16.0) L 09/10/17 07:00 Hct 29.2 % (36.0-48.0) L 09/10/17 07:00 MCV 87.7 fl (80.0-105.0) 09/10/17 07:00 MCH 26.7 pg (25.0-35.0) 09/10/17 07:00 MCHC 30.5 g/dl (31.0-37.0) L 09/10/17 07:00 RDW 20.1 % (11.5-14.5) H 09/10/17 07:00 Plt Count 377 10^3/uL (120.0-450.0) 09/10/17 07:00 MPV 8.9 fl (7.0-11.0) 09/10/17 07:00 Gran % 63.5 % (50.0-68.0) 09/10/17 07:00 Lymph % (Auto) 20.7 % (22.0-35.0) L 09/10/17 07:00 [place] % (Auto) 9.4 % (1.0-6.0) H 09/10/17 07:00 Eos % (Auto) 5.4 % (1.5-5.0) H 09/10/17 07:00 Baso % (Auto) 1.0 % (0.0-3.0) 09/10/17 07:00 Gran # 6.05 (1.4-6.5) 09/10/17 07:00 Lymph # (Auto) 2.0 (1.2-3.4) 09/10/17 07:00 [place] # (Auto) 0.9 (0.1-0.6) H 09/10/17 07:00 Eos # (Auto) 0.5 (0.0-0.7) 09/10/17 07:00 Baso # (Auto) 0.10 K/mm3 (0.0-2.0) 09/10/17 07:00 Neutrophils % (Manual) 90 % (50.0-70.0) H 07/23/17 06:30 Lymphocytes % (Manual) 8 % (22.0-35.0) L 07/23/17 06:30 Monocytes % (Manual) 2 % (1.0-6.0) 07/23/17 06:30 Platelet Evaluation Normal (NORMAL) 07/23/17 06:30 Anisocytosis (manual) Slight 07/23/17 06:30 ESR 76 mm/hr (0.0-20.0) H 07/22/17 06:20 PT 12.5 SECONDS (9.4-12.5) 08/17/17 05:45 INR 1.09 (0.93-1.08) H 08/17/17 05:45 APTT 27.7 Seconds (25.1-36.5) 08/17/17 05:45 pCO2 53 mm/Hg (35-45) H 08/20/17 20:31 pO2 94.0 mm/Hg (80-100) 08/20/17 20:31 HCO3 34.4 mmol/L (21-28) H 08/20/17 20:31 ABG pH 7.42 (7.35-7.45) 08/20/17 20:31 ABG Total CO2 36.0 mmol.L (22-28) H 08/20/17 20:31 ABG O2 Saturation 99.4 % (95-98) H 08/20/17 20:31 ABG O2 Content 12.4 ML/dl (15-23) L 08/20/17 20:31 ABG Base Excess 8.7 mmol/L (-2.0-3.0) H 08/20/17 20:31 ABG Hemoglobin 9.0 g/dL (11.7-17.4) L 08/20/17 20:31 ABG Carboxyhemoglobin 1.9 % (0.5-1.5) H 08/20/17 20:31 POC ABG HHb (Measured) 0.6 % (0-5) 08/20/17 20:31 ABG Methemoglobin 0.9 % (0.0-3.0) 08/20/17 20:31 ABG O2 Capacity 12.5 mL/dl (16-24) L 08/20/17 20:31 ABG Potassium 2.4 mmol/L (3.6-5.2) L* 08/08/17 15:30 VBG pH 7.40 (7.32-7.43) 06/15/17 14:48 VBG pCO2 40.0 (40-60) 06/15/17 14:48 VBG HCO3 24.8 mmol/l (21-28) 06/15/17 14:48 VBG Total CO2 26.0 mmol.L (22-28) 06/15/17 14:48 VBG O2 Sat (Calc) 96.6 % (40-65) H 06/15/17 14:48 VBG Base Excess 0.0 mmol/L (0.0-2.0) 06/15/17 14:48 VBG Potassium 3.9 mmol/L (3.6-5.2) 06/15/17 14:48 Hgb O2 Saturation 96.5 % (95.0-98.0) 08/20/17 20:31 Sodium 138.0 mmol/L (132-148) 08/08/17 15:30 Chloride 108.0 mmol/L (98-107) H 08/08/17 15:30 Glucose 134 mg/dl (65-105) H 08/08/17 15:30 Lactate 0.9 mmol/L (0.7-2.1) 08/08/17 15:30 Mechanical Rate 24 08/08/17 15:30 FiO2 35.0 % 08/20/17 20:31 Tidal Volume 350 08/08/17 15:30 PEEP 5 08/08/17 15:30 Sodium 141 mmol/L (132-148) 09/10/17 13:10 Potassium 3.4 mmol/L (3.6-5.0) L 09/10/17 13:10 Chloride 101 mmol/L (98-107) 09/10/17 13:10 Carbon Dioxide 29 mmol/L (21-33) 09/10/17 13:10 Anion Gap 14 (10-20) 09/10/17 13:10 BUN 20 mg/dL (7-21) 09/10/17 13:10 Creatinine 1.1 mg/dl (0.7-1.2) 09/10/17 13:10 Est GFR ( Amer) > 60 09/10/17 13:10 Est GFR (Non-Af Amer) 50 09/10/17 13:10 POC Glucose (mg/dL) 100 mg/dL (65-110) 09/10/17 21:27 Random Glucose 134 mg/dL (70-110) H 09/10/17 13:10 Hemoglobin A1c 6.4 % (4.2-6.5) 06/15/17 12:05 Serum Osmolality 301 mosm/kg (272-300) H 08/23/17 21:20 Lactic Acid 0.9 mmol/L (0.7-2.1) 07/03/17 16:25 Uric Acid 8.5 mg/dL (2.5-6.2) H 08/08/17 05:30 Calcium 8.5 mg/dL (8.4-10.5) 09/10/17 13:10 Phosphorus 2.4 mg/dL (2.5-4.5) L 08/27/17 06:30 Iron 16 ug/dL (45-180) L 06/16/17 11:20 TIBC 210.1 ug/dL (250-450) L 06/16/17 11:20 % Saturation 7 (20-55) L 06/16/17 11:20 Magnesium 1.9 mg/dL (1.7-2.2) 09/07/17 07:00 Ferritin 69.2 ng/mL 06/16/17 11:20 Total Bilirubin 0.3 mg/dL (0.2-1.3) 09/06/17 07:30 AST 38 U/L (14-36) H 09/06/17 07:30 ALT 28 U/L (7-56) 09/06/17 07:30 Alkaline Phosphatase 119 U/L (38-126) 09/06/17 07:30 Ammonia 29 umol/L (9-33) 08/06/17 12:20 Lactate Dehydrogenase 468 U/L (333-699) 06/15/17 12:40 Total Creatine Kinase 38 U/L (35-230) 06/15/17 12:40 Troponin I < 0.01 ng/mL 06/15/17 12:40 C-React Prot High Sens > 15.00 mg/L (1.00-3.00) H 06/15/17 11:00 NT-Pro-B Natriuret Pep 397 pg/mL (0-450) 07/22/17 06:20 Total Protein 6.5 g/dL (5.8-8.3) 09/06/17 07:30 Albumin 2.8 g/dL (3.0-4.8) L 09/06/17 07:30 Globulin 3.7 gm/dL 09/06/17 07:30 Albumin/Globulin Ratio 0.8 (1.1-1.8) L 09/06/17 07:30 Triglycerides 64 mg/dL (35-160) 06/15/17 12:05 Cholesterol 159 mg/dL (130-200) 06/15/17 12:05 LDL Cholesterol Direct 93 mg/dL (0-129) 06/15/17 12:05 HDL Cholesterol 53 mg/dL (29-60) 06/15/17 12:05 Vitamin B12 444 pg/mL (239-931) 06/16/17 11:20 25-OH Vitamin D Total 15.0 NG/ML (30.0-100.0) L 08/22/17 05:30 Folate > 20.0 ng/mL 06/16/17 11:20 Procalcitonin 1.49 NG/ML (0.19-0.49) H 08/11/17 13:30 Free T4 1.63 ng/dL (0.78-2.19) 06/15/17 12:00 Thyroxine (T4) 3.4 ug/dL (5.5-11.0) L 08/10/17 12:00 TSH 3rd Generation 2.33 mIU/mL (0.46-4.68) 08/10/17 12:00 Arterial Blood Potassium 2.4 mmol/L (3.6-5.2) L* 08/08/17 15:30 Venous Blood Potassium 3.9 mmol/L (3.6-5.2) 06/15/17 14:48 Urine Color Yellow (YELLOW) 08/10/17 20:27 Urine Appearance Clear (CLEAR) 08/10/17 20:27 Urine pH 6.0 (4.7-8.0) 08/10/17 20:27 Ur Specific [place] 1.010 (1.005-1.035) 08/10/17 20:27 Urine Protein Negative mg/dL (<30 mg/dL) 08/10/17 20:27 Urine Glucose (UA) Negative mg/dL (NEGATIVE) 08/10/17 20:27 Urine Ketones Negative mg/dL (NEGATIVE) 08/10/17 20:27 Urine Blood Negative (NEGATIVE) 08/10/17 20:27 Urine Nitrate Negative (NEGATIVE) 08/10/17 20:27 Urine Bilirubin Negative (NEGATIVE) 08/10/17 20:27 Urine Urobilinogen 0.2 E.U./dL (<1 E.U./dL) 08/10/17 20:27 Ur Leukocyte Esterase Negative Alexis/uL (NEGATIVE) 08/10/17 20:27 Urine RBC 1 - 3 /hpf (0-2) 08/08/17 13:50 Urine WBC 1 - 3 /hpf (0-6) 08/08/17 13:50 Ur Epithelial Cells 0 - 2 /hpf (0-5) 08/08/17 13:50 Urine Bacteria Few (NEG) 08/08/17 13:50 Urine Other Uyeast 08/08/17 13:50 Urine Eosinophils Negative 08/10/17 20:27 Ur Random Creatinine 52 mg/dL 08/08/17 13:50 Ur Random Sodium 34 meq/L 08/09/17 09:30 Ur Random Potassium 5.6 meq/L 08/09/17 09:30 Rheumatoid Factor IgG <5 U (<=6) 07/22/17 14:45 Rheumatoid Factor IgA 9 U (<=6) H 07/22/17 14:45 Rheumatoid Factor IgM 6 U (<=6) 07/22/17 14:45 Cycl Citrul Peptide IgG >250 Units (<20) H 07/22/17 14:45 RAS Screen Positive (Negative) H 07/22/17 14:45 RAS Titer 1:80 Titer (<1:40) H 07/22/17 14:45 RAS Titer 2 TEST NOT PERFORMED 07/22/17 14:45 RAS Pattern Homogeneous H 07/22/17 14:45 RAS Pattern 2 TEST NOT PERFORMED 07/22/17 14:45 ANCA Screen Negative (NEGATIVE) 08/08/17 05:30 c-ANCA Titer TNP 08/08/17 05:30 Proteinase 3 (PR3) <1.0 AI (<1.0) 08/08/17 05:30 p-ANCA Titer TNP 08/08/17 05:30 Atypical p-ANCA Titer TNP 08/08/17 05:30 Myeloperoxidase Ab <1.0 AI (<1.0) 08/08/17 05:30 Double Strand DNA Ab <1 IU/mL 08/09/17 06:00 Glomerular Base Mem IgG <1.0 AI (<1.0) 08/08/17 11:43 Complement C3 91.0 mg/dL (88.0-165.0) 08/08/17 05:30 Complement C4 36.9 mg/dL (14.0-44.0) 08/08/17 05:30 Attending/Attestation - Attestation I have personally seen and examined this patient.: Yes I have fully participated in the care of the patient.: Yes I have reviewed all pertinent clinical information, including history, physical exam and plan: Yes Notes (Text): 09/11/17 11:39 Patient was seen and examined with medical unit secretary. Agreed with assessment and plan. 67 year old female with past medical history of COPD who initially presented with cellulitis and UTI. Hospital course was complicated with COPD exacerbation, hypercapnic respiratory failure ,SP intubation. Patient is now s/p trach, on trach collar. She is s/p antibiotics for pneumonia and steroids for COPD exacerbation She had enteritis on recent CT abd/pelvis. Symptoms improved after rectal tube was placed later discontinued. Respiratory status is stable.Oral intake is poor, need to encourage for feeding , if oral intake will not improve, may need PEG tube placement. Hypokalemia , has improved, on replacement therapy. Patient is stable at her base line.She will be discharged to long-term.She will follow up with [facility]. Prognosis is guarded.
[2017-09-10 16:56] VITALS: BP 135/68; PULSE 91; RESP 16; TEMP 98.7; O2SAT 95
--- NOTE | 2017-09-10 18:40 | CP.PCM.PN ---
Subjective - Date & Time of Evaluation Date of Evaluation: 09/10/17 Time of Evaluation: 16:30 - Subjective Subjective: Infectious Disease Follow Up: September 10, 2017 67 yo female presenting with 3 weeks of RLE ulceration, swelling and leaking from the wound as well as multiple falls in the past 3 weeks. The patient has an extensive medical history of asthma, arthritis, vitamin C deficiency, and possible thyroid disease. Draining RLE ulceration... cellulitis improved/resolved. Multiple chronic medical issues. Still with persistent dry cough. Otherwise stable. Mild erythema and excoriation of the folds in the abdomen and under the breasts. UTI with Klebsiella earlier in hospitalization but had treatment with Cipro that is now completed. Social Issues. The patient had respiratory distress with no improvement from BiPAP. Patient required intubation and ventilation. Transferred to MICU for further care. The patient was started on Zyvox and Aztreonam IV. Patient had a positive C. Diff antigen but negative toxin. Remains ventilated today. Appears stable. Chest X-ray not showing new findings. No leukocytosis. Cultures pending... so far negative. Patient unable to be weaned from ventilator. Supportive care. No fevers or leukocytosis. First two Procalcitonin equivocal. The patient had hypothermia ranging from 93.0 F starting from two days ago. Temperature did rise back up to 99.0 F and has been hovering around 97.7 F. Creatinine at 1.2 now. No leukocytosis. Open tracheostomy done 08/17/2017. Failed ventilator weaning during this hospitalization. Patient has completed antibiotic regimens and is off antibiotics at this time. Recently comleted PO Vancomycin. Patient is awake and alert. So far stable. No further diarrhea episodes. Last C. Diff antigen positive. Completed therapy. Can stop isolation. Off antibiotics now. Overall stable. No new issues at this time. Objective - Vital Signs/Intake and Output Vital Signs (last 24 hours): Temp Pulse Resp BP Pulse Ox 98.7 F 91 H 16 135/68 95 09/10/17 16:00 09/10/17 16:00 09/10/17 16:00 09/10/17 16:00 09/10/17 16:00 Intake and Output: 09/10/17 09/10/17 06:59 18:59 Intake Total 600 240 Balance 600 240 - Medications Medications: Current Medications Acetaminophen (Tylenol 325mg Tab) 650 mg PO Q4H PRN PRN Reason: Pain, moderate (4-7) Last Admin: 09/08/17 15:34 Dose: 650 mg Albuterol/Ipratropium (Duoneb 3 Mg/0.5 Mg (3 Ml) Ud) 3 ml IH [id number] PRN PRN Reason: SOB Last Admin: 09/07/17 05:53 Dose: 3 ml Albuterol/Ipratropium (Duoneb 3 Mg/0.5 Mg (3 Ml) Ud) 3 ml IH [id number] [facility] Last Admin: 09/10/17 13:22 Dose: 3 ml Diphenhydramine HCl (Benadryl) 25 mg IVP Q4H PRN PRN Reason: Allergy symptoms Last Admin: 08/28/17 02:22 Dose: 25 mg Ergocalciferol (Drisdol 50,000 Intl Units Cap) 1 cap PO Q7D [facility] Last Admin: 09/09/17 16:31 Dose: 1 cap Ferrous Sulfate (Feosol Liq) 300 mg PO TID [facility] Last Admin: 09/10/17 18:18 Dose: 300 mg Guaifenesin/Codeine Phosphate (Robitussin W/Codeine) 5 ml PO Q4H PRN PRN Reason: Cough and congestion Last Admin: 09/06/17 17:25 Dose: 5 ml Heparin Sodium (Porcine) (Heparin) 5,000 units SC Q12 [facility] PRN Reason: Protocol Last Admin: 09/10/17 09:46 Dose: 5,000 units Insulin Human Lispro (Humalog Med) 0 units SC ACHS [facility] PRN Reason: Protocol Last Admin: 09/10/17 17:19 Dose: Not Given Lactic Acid (Lac-Hydrin 12% Cream (140 G)) 0 ea TOP DAILY [facility] Last Admin: 09/10/17 09:48 Dose: 1 applic Levothyroxine Sodium (Synthroid) 100 mcg PO ACB [facility] Last Admin: 09/10/17 08:37 Dose: 100 mcg Multivitamins (Thera Tab) 1 tab PO 0800 [facility] Last Admin: 09/10/17 08:37 Dose: 1 tab Nystatin (Nystop Topical Powder) 1 gm TOP DAILY [facility] Last Admin: 09/10/17 09:49 Dose: 1 applic Pantoprazole Sodium (Protonix Ec Tab) 40 mg PO ACB [facility] Last Admin: 09/10/17 08:37 Dose: 40 mg Phenol/Menthol (Phenaseptic 1.4% Throat [place]) 0 ml MT Q2H PRN PRN Reason: Sore Throat Last Admin: 08/27/17 17:45 Dose: 1 spr Zinc Sulfate (Zinc Sulfate 220 Mg Cap) 220 mg PO DAILY [facility] Last Admin: 09/10/17 09:48 Dose: 220 mg - Labs Labs: 09/10/17 07:00 09/10/17 13:10 PT 12.5 SECONDS (9.4-12.5) 08/17/17 05:45 INR 1.09 (0.93-1.08) H 08/17/17 05:45 APTT 27.7 Seconds (25.1-36.5) 08/17/17 05:45 - Constitutional Appears: Non-toxic, No Acute Distress, Chronically Ill - Head Exam Additional comments: trach - Eye Exam Eye Exam: EOMI, PERRL Pupil Exam: NORMAL ACCOMODATION, PERRL - ENT Exam ENT Exam: Mucous Membranes Moist, Normal External Ear Exam, TM's Normal Bilaterally - Neck Exam Neck Exam: Full ROM, Normal Inspection - Respiratory Exam Respiratory Exam: Clear to Ausculation Bilateral, NORMAL BREATHING PATTERN. absent: Rales, Rhonchi, Wheezes - Cardiovascular Exam Cardiovascular Exam: REGULAR RHYTHM, RRR, +S1, +S2 - GI/Abdominal Exam GI & Abdominal Exam: Soft, Normal Bowel Sounds. absent: Distended, Tenderness - Extremities Exam Extremities Exam: Joint Swelling, Pedal Edema - Neurological Exam Neurological Exam: Alert, Awake, CN II-XII Intact, Oriented x3 - Psychiatric Exam Psychiatric exam: Normal Affect, Normal Mood - Skin Skin Exam: Intact, Normal Color Assessment and Plan - Assessment and Plan (Free Text) Assessment: 67 yo female with multiple medical issues with PCN allergy diagnosed as a teenager verified by an Research Geologist. The patient with leukocytosis. Await cultures especially urine cultures. Diabetes and HTN history? Local wound care. Elevated ESR and C-reactive protein. Completed Vancomycin and Aztreonam for antibiotic coverage. UTI with E. coli sensitive to Azactam. Was on Vancomycin for cellulitis IV. For UTI for 5-7 days treatment... completed. Supportive care. Cellulitis appears improved. No new issues. Social issues currently. Homeless at this time. CT scan of chest done. No infiltrates seen. Afebrile the past 24 hours. Mild congestion noted in CT with small pulmonary effusions. No leukocytosis. Slightly elevated procalcitonin (0.66) which is undefined without stronger evidence for pneumonia. When encouraged, she is able to use the incentive spirometer without issues and ambulate with minimal difficulty. Repeat procalcitonin showing 0.71. UTI with Klebsiella. Sensitive to Cipro. Was on Cipro for 5 day course at 500mg PO BID. Completed the antibiotic course. Stable currently. No new issues. Off antibiotics at this time. Multiple social issues. Chronic cough still with periods of hacking. Complained of Vague mild general pains. During this hospitalization, the patient developed respiratory failure and required intubation. Started on Zyvox and Aztreonam IV. Will add Flagyl as well. No leukocytosis. Noted C. Diff with positive antigen but negative toxin. Supportive care. Remains intubated and ventilated. Cultures pending. C. Diff negative to date. No leukocytosis or fever reported. Essentially clear X-ray. Hypothermia episodes most of yesterday to this morning. Antibiotic courses completed. Noted gram positive cocci in most recent urine culture. Still awaiting identification. Supportive care. Patient did improve mentally. Still difficulty in weaning off respirator. She remains intubated. Failed weaning from vent. Tracheotomy performed 08/17/2017. Patient is awake and alert. 08/23/2017 C. Diff testing was positive for antigen and negative for toxin. Supportive care. Completed PO Vancomycin for C. Diff. No new issues. Sitting in chair for a few hours. No new issues at this time. Currently no diarrhea. Can d/c isolation. No new issues at this time. Off all antibiotics at this time. Thank you for allowing me to participate in the care of the patient, we will follow with you.
== END 2017-09-10 23:16 | DRG 4 ==
LOC: ED 09:34 → ERH 13:49 → 2RSO 23:18 → 5RSO 06-17 15:36 → 5RNO 06-19 15:34 → ICU 08-06 16:14 → 5RSO 09-03 21:18
PROVIDERS: ADMIT Internal Medicine; ATTEND Internal Medicine
PROC: 5A09357 Assistance with Respiratory Ventilation, Less than 24 Consecutive Hours, Continuous Positive Airway Pressure (ICD-10-PCS; 2017-07-23)
PROC: 5A1955Z Respiratory Ventilation, Greater than 96 Consecutive Hours (ICD-10-PCS; 2017-08-10)
PROC: 0BH17EZ Insertion of Endotracheal Airway into Trachea, Via Natural or Artificial Opening (ICD-10-PCS; 2017-08-10)
PROC: 0B110F4 Bypass Trachea to Cutaneous with Tracheostomy Device, Open Approach (ICD-10-PCS; principal; 2017-08-17 11:30)
PROC: 05H533Z Insertion of Infusion Device into Right Subclavian Vein, Percutaneous Approach (ICD-10-PCS; 2017-08-24)
PROC: B546ZZA Ultrasonography of Right Subclavian Vein, Guidance (ICD-10-PCS; 2017-08-24)
DX: L03.115 Cellulitis of right lower limb (principal); J18.9 Pneumonia, unspecified organism; N17.0 Acute kidney failure with tubular necrosis; J90 Pleural effusion, not elsewhere classified; E87.2 Acidosis; A04.72 Enterocolitis due to Clostridium difficile, not specified as recurrent; J96.02 Acute respiratory failure with hypercapnia; J44.0 Chronic obstructive pulmonary disease with (acute) lower respiratory infection; J45.21 Mild intermittent asthma with (acute) exacerbation; J44.1 Chronic obstructive pulmonary disease with (acute) exacerbation; N39.0 Urinary tract infection, site not specified; K56.7 Ileus, unspecified; L97.319 Non-pressure chronic ulcer of right ankle with unspecified severity; E66.2 Morbid (severe) obesity with alveolar hypoventilation; Z99.11 Dependence on respirator [ventilator] status; E83.51 Hypocalcemia; E83.39 Other disorders of phosphorus metabolism; B35.1 Tinea unguium; B96.1 Klebsiella pneumoniae [K. pneumoniae] as the cause of diseases classified elsewhere; D50.9 Iron deficiency anemia, unspecified; E54 Ascorbic acid deficiency; B95.1 Streptococcus, group B, as the cause of diseases classified elsewhere; B96.4 Proteus (mirabilis) (morganii) as the cause of diseases classified elsewhere; M19.90 Unspecified osteoarthritis, unspecified site; R26.9 Unspecified abnormalities of gait and mobility; L60.3 Nail dystrophy; B96.20 Unspecified Escherichia coli [E. coli] as the cause of diseases classified elsewhere; I89.0 Lymphedema, not elsewhere classified; E87.6 Hypokalemia; F32.9 Major depressive disorder, single episode, unspecified; M25.561 Pain in right knee; K56.41 Fecal impaction; M06.9 Rheumatoid arthritis, unspecified; I10 Essential (primary) hypertension; R73.9 Hyperglycemia, unspecified; T38.0X5A Adverse effect of glucocorticoids and synthetic analogues, initial encounter; E83.42 Hypomagnesemia; R29.6 Repeated falls; I87.2 Venous insufficiency (chronic) (peripheral); E03.9 Hypothyroidism, unspecified; M41.9 Scoliosis, unspecified; E55.9 Vitamin D deficiency, unspecified; Z68.34 Body mass index [BMI] 34.0-34.9, adult; Z75.1 Person awaiting admission to adequate facility elsewhere; Z88.0 Allergy status to penicillin